=== PATIENT | male | born 1960 | race Caucasian/White ===

== ENCOUNTER 2019-08-04 12:25 | Emergency (ER) | payer OTHER, SELFPAY ==
--- NOTE | ~2019-08-04 | XR_ITS ---
EXAMINATION: XR chest 2V EXAM DATE: 08/04/2019 13:19 INDICATION: Shortness of breath, COPD. Right upper lobe biopsy-proven adenocarcinoma. TECHNIQUE: Frontal and lateral projections of the chest obtained and reviewed. Comparison is made to prior examination from 12/29/2018. FINDINGS: Right upper nodular opacity has some spiculations radiating out from it new compared to pr evious examination, probably some surrounding radiation change. Central soft tissue component appears essentially unchanged in size. The lungs are otherwise clear. There are no pleural effusions. The cardiomediastinal silhouette is within normal limits. There is no pneumothorax suspected. The bones and soft tissues are unremarkable. IMPRESSION: 1. No acute cardiopulmonary findings. 2. Right upper lobe biopsy-proven cancer with some adjacent scarring suspected. Reviewed, dictated and finalized at location A. ET DEVELOPMENT TRAINER IMPRESSION: 1. No acute cardiopulmonary findings. 2. Right upper lobe biopsy-proven cancer with some adjacent scarring suspected .
--- NOTE | ~2019-08-04 | CT_ITS ---
EXAMINATION: CTA chest PE protocol EXAM DATE: 08/04/2019 15:42 INDICATION: Shortness of breath. Chest x-ray, right upper lobe cancer treated with radiation. TECHNIQUE: Spiral CTA of the chest (pulmonary arteries) was performed with 100 cc Omnipaque 350 intr avenous contrast injection. Images were acquired during the pulmonary arterial phase. Coronal maxi mum intensity projection 3D-reconstructions were created by the technologist on dedicated workstation . Axial, coronal and sagittal reformatted images were reviewed. The dose-length product (DLP) for t his examination was 480.48 mGy-cm. The exposure was tailored according to patient size (auto mA exp osure control), and iterative reconstruction (ASIR) was used as additional dose reduction technique. Comparison is made to prior examination from 05/05/2019. FINDINGS: Pulmonary arteries are well opacified and without intraluminal filling defects. No thora cic aortic dissection. There is right upper lobe airspace disease which has somewhat thick linear ba nds, appearance is consistent with treated lung cancer, some resultant scarring. Previously seen more focal 2 cm nodular region has decreased in bulk and size compared to that exam, measures about 17 x 10 mm versus 21 x 13 on prior study. There are no pleural or pericardial effusions. Tracheobronchi al tree is patent. There is no mediastinal, hilar or axillary lymphadenopathy. There is no pneumo thorax. Some hyperinflation with narrow cardiac silhouette. Again there is right atrial mass measur ing about 2 cm in diameter, size does not appear changed. Could be edema exam. There is mild coronary arterial calcification, arterial sclerosis. There are cholecystectomy clips. There is hepatic steat osis. There is thoracic spondylosis without osteoblastic or osteolytic lesions identified. IMPRESSION: 1. No pulmonary emboli. 2. Decrease in size of right upper lobe cancer. Development of adjacent linear regions of scarring. 3. Left atrial mass unchanged. 4. Cholecystectomy. Hepatic steatosis. Reviewed, dictated and finalized at location A. E FARM AGENT
[2019-08-04 12:41] VITALS: BP 127/97; PULSE 107; RESP 20; TEMP 37; O2SAT 93
--- NOTE | 2019-08-04 12:43 | ECG_ITS ---
Measurements Intervals [place] Rate: 100 P: 73 WI: 157 QRS: 73 QRSD: 80 T: 70 QT: 324 QTc: 418 Interpretive Statements SINUS TACHYCARDIA BASELINE ARTIFACT- I, II, AVR, AVL, AVF BORDERLINE ECG Electronically Signed On 08-04-2019 17:24:32 INVESTIGATIVE WRITER by Charles Zhou D.O.
[2019-08-04 12:59] LABS: Basophils Percent Auto 0.7 % (0.2-1.2); Eosinophils Absolute Auto 0.4 K/mm3 (0-0.3); Hematocrit 41.9 % (42.0-52.0); Hemoglobin 13.4 g/dL (14.0-18.0); Immature Granulocyte Absolute 0.01 K/mm3 (0.00-0.031); Immature Granulocyte Percent A 0.2 % (0-0.5); Lymphocytes Absolute Auto 1.61 K/mm3 (0.9-3.2); Lymphocytes Percent Auto 29.2 % (18.3-44.2); Mean Corpuscular Hemoglobin 27.6 pg (26-34); Mean Corpuscular Volume 86.4 fl (80-100); Monocytes Absolute Auto 0.5 K/mm3 (0.1-0.6); Monocytes Percent Auto 9.8 % (2.6-8.5); Neutrophils Absolute Auto 2.9 K/mm3 (1.3-6.7); Neutrophils Percent Auto 52.1 % (45.5-73.1); Platelet Count Result 256 k/mm3 (150-375); Red Blood Count 4.85 M/mm3 (4.6-6.20); Red Cell Distribution Width 14.2 % (11.5-14.5); White Blood Count 5.5 K/mm3 (4.5-10.0)
[2019-08-04 13:10] LABS: Blood Urea Nitrogen 13 mg/dL (9-20); Calcium 9.5 mg/dL (8.4-10.2); Carbon Dioxide 26 mmol/L (22-30); Chloride 99 mmol/L (98-107); Estimated CRCL calculation 96 ml/min; Estimated Glomerular Filt Rate > 60; Glucose 108 mg/dL (75-110); Sodium 137 mmol/L (137-145)
[2019-08-04 14:40] VITALS: BP 141/97; PULSE 89; RESP 16; TEMP 37; O2SAT 93
[2019-08-04 15:01] VITALS: PULSE 86; RESP 20; O2SAT 96
[2019-08-04 15:11] VITALS: BP 143/93; PULSE 86; PULSE 92; RESP 13; TEMP 36.4; O2SAT 96
--- NOTE | 2019-08-04 15:11 | ED.SOB ---
HPI - SOB/Dyspnea General Chief Complaint: Shortness of Breath/Dyspnea <Andi Robbins PA-C - Last Filed: 08/04/19 17:33> Stated Complaint: Wheezing, hx copd <Andi Robbins PA-C - Last Filed: 08/04/19 17:33> Time Seen by Provider: 08/04/19 14:42 <Andi Robbins PA-C - Last Filed: 08/04/19 17:33> Source: patient <Andi Robbins PA-C - Last Filed: 08/04/19 17:33> Mode of arrival: ambulatory <Andi Robbins PA-C - Last Filed: 08/04/19 17:33> Limitations: no limitations <Andi Robbins PA-C - Last Filed: 08/04/19 17:33> History of Present Illness HPI Narrative: Patient is a 59-year-old male who presents with dyspnea for the last weeks noting that he has had productive cough of green phlegm with congestion rhinorrhea denies fever notes history of COPD has been using his home nebulizer with minimal improvement patient with history of COPD and pulmonary embolism was recently taken off of his anticoagulant by his oncologist. Patient on arrival is in the room denying any pain but notes dyspnea at rest. <Andi Robbins PA-C - Last Filed: 08/04/19 17:33> Related Data Allergies/Adverse Reactions: Allergies Allergy/AdvReac Type Severity Reaction Status Date / Time bee venom protein (honey bee) Allergy Unknown Verified 06/21/18 11:24 No Known Drug Allergies Allergy Unknown Other Verified 03/15/19 19:42 bee stings AdvReac Intermediate Swelling Uncoded 02/17/18 09:54 <Andi Robbins PA-C - Last Filed: 08/04/19 17:33> Review of Systems Review of Systems: All systems reviewed & are unremarkable except as noted in HPI and below <Andi Robbins PA-C - Last Filed: 08/04/19 17:33> [facility] Past Medical History Medical History: Medical History (Updated 08/04/19 @ 17:30 by Andi Robbins PA-C) COPD (chronic obstructive pulmonary disease) Pulmonary embolism <LORENA Islas Last Filed: 08/04/19 17:33> Family History Family History: Family History Other Family history of blood dyscrasia Family history of chronic obstructive pulmonary disease Family history of malignant neoplasm of breast in first degree relative <Andi Robbins PA-C - Last Filed: 08/04/19 17:33> Social History Social History: Social History Smoking status: Former smoker <Andi Robbins PA-C - Last Filed: 08/04/19 17:33> Exam Narrative: Exam Narrative: GENERAL: Well-appearing, well-nourished, and in no acute distress. HEAD: Normocephalic, atraumatic. EYES: PERRLA and EOMI. ENT: Nares clear, no rhinorrhea or epistaxis. Mucous membranes moist. Oropharynx without tonsillar hypertrophy exudate or other lesions. NECK: Supple. No adenopathy or masses. CHEST: Diminished on auscultation. No respiratory distress. Fine expiratory wheezes throughout HEART: Regular rate and rhythm. No murmur heard. Normal peripheral pulses. ABDOMEN: Soft, nontender, nondistended EXTREMITIES: Normal range of motion. No edema. SKIN: Warm, dry, no rash. NEURO: No focal deficits. Alert and oriented x3. Cranial nerves II through XII grossly intact PSYCH: Normal mood and affect. <Andi Robbins PA-C - Last Filed: 08/04/19 17:33> Course Course Emergency Course: Patient in the room resting comfortably aware of case findings treatment plan and diagnosis agreeing to follow-up as directed or to return if symptoms worsen or concerns <Andi Robbins PA-C - Last Filed: 08/04/19 17:33> Vital Signs Vital signs: Vital Signs Temperature 98.6 F 08/04/19 12:41 Pulse Rate 107 H 08/04/19 12:41 Respiratory Rate 20 08/04/19 12:41 Blood Pressure 127/97 H 08/04/19 12:41 Pulse Oximetry 93 08/04/19 12:41 Temperature 97.9 F 08/04/19 17:37 Pulse Rate 96 08/04/19 17:37 Respiratory Rate 18 08/04/19 17:37 Blood Pressure 134/88 08/04/19 1
[2019-08-04 15:23] LABS: Alveolar/Arterial O2 Gradient 36.6 mmHg; Base Excess ABG 1.6 mEq/l (+/-2.0); Carboxyhemoglobin 0.6 % THb (0-2.0); Fractional Inspired Oxygen 21 %; HCO3 ABG 26.6 mEq/l (22.0-26.0); Methemoglobin ABG 0.2 %THb (0-1.5); Oxygen Content ABG 17.6 %vol (16.0-22.0); Oxygen Saturation ABG 91.3 % (95.0-100.0); Oxyhemoglobin 91.4 % THb (90.0-100.0); PCO2 ABG 43.7 mmHg (35.0-45.0); PO2 ABG 60.8 mmHg (80.0-100.0); Reduced Hemoglobin 7.8 %THb (0-5.0); Total Hemoglobin 13.7 g/dL (12.0-18.0); pH ABG 7.403 (7.350-7.450)
[2019-08-04 15:24] LABS: Device ROOM AIR; Modified Allen's Test Pass; Site Drawn RIGHT RADIAL
[2019-08-04] MEDS: methylPREDNISolone SOD SUCC 125 MG VIAL IV PUSH (16:29)
[2019-08-04 16:31] VITALS: BP 129/79; PULSE 85; RESP 18; O2SAT 100
[2019-08-04 17:37] VITALS: BP 134/88; PULSE 96; RESP 18; TEMP 36.6; O2SAT 95
== END 2019-08-04 17:52 | disposition home or self-care (01) ==
PROVIDERS: Emergency Medicine Emergency Medical Services; Emergency Provider General Practice; Referring Provider Family Medicine
DX: J44.1 Chronic obstructive pulmonary disease with (acute) exacerbation (principal); Z86.711 Personal history of pulmonary embolism; Z87.891 Personal history of nicotine dependence; C34.91 Malignant neoplasm of unspecified part of right bronchus or lung; K76.0 Fatty (change of) liver, not elsewhere classified; R00.0 Tachycardia, unspecified
CPT/HCPCS: 36415; 36600; 71046; 71275; 80048; 82375; 82805; 83050; 85025; 87804; 93005; 96374; 99284; J2930; Q9967

== ENCOUNTER 2019-08-19 10:35 | Outpatient (CLI) | payer OTHER, SELFPAY ==
[2019-08-19 10:50] LABS: Basophils Percent Auto 0.4 % (0.2-1.2); Eosinophils Absolute Auto 0.4 K/mm3 (0-0.3); Eosinophils Percent Auto 5.4 % (0-4.4); Hematocrit 43.9 % (42.0-52.0); Hemoglobin 13.6 g/dL (14.0-18.0); Immature Granulocyte Absolute 0.02 K/mm3 (0.00-0.031); Immature Granulocyte Percent A 0.3 % (0-0.5); Lymphocytes Absolute Auto 2.28 K/mm3 (0.9-3.2); Lymphocytes Percent Auto 33.1 % (18.3-44.2); Mean Corpuscular Hemoglobin 27.8 pg (26-34); Mean Corpuscular Volume 89.6 fl (80-100); Monocytes Absolute Auto 0.4 K/mm3 (0.1-0.6); Monocytes Percent Auto 6.4 % (2.6-8.5); Neutrophils Absolute Auto 3.8 K/mm3 (1.3-6.7); Neutrophils Percent Auto 54.4 % (45.5-73.1); Platelet Count Result 214 k/mm3 (150-375); Red Cell Distribution Width 14.6 % (11.5-14.5); White Blood Count 6.9 K/mm3 (4.5-10.0)
[2019-08-19 10:57] LABS: Blood Urea Nitrogen 10 mg/dL (8-26); Carbon Dioxide 25 mmol/L (22-30); Chloride 104 mmol/L (98-109); Estimated Glomerular Filt Rate > 60; Glucose 148 mg/dL (70-105); Potassium 3.8 mmol/L (3.5-4.9); Sodium 140 mmol/L (138-146)
[2019-08-19 12:44] LABS: Alanine Aminotransferase 24 U/L (4-50); Albumin Level 3.8 g/dL (3.5-5.1); Alkaline Phosphatase 70 U/L (38-126); Aspartate Amino Transferase 18 U/L (17-59); Bilirubin,Total 0.4 mg/dL (0.2-1.3); Blood Urea Nitrogen 10 mg/dL (9-20); Carbon Dioxide 24 mmol/L (22-30); Chloride 106 mmol/L (98-107); Estimated Glomerular Filt Rate > 60; Glucose 144 mg/dL (75-110); Sodium 139 mmol/L (137-145)
== END 2019-08-19 10:36 | disposition home or self-care (01) ==
LOC: ANHLAB 10:37
PROVIDERS: Visit Provider Internal Medicine Hematology & Oncology
DX: C34.91 Malignant neoplasm of unspecified part of right bronchus or lung (principal)
CPT/HCPCS: 36415; 80048; 80053; 85025

== ENCOUNTER 2019-11-07 03:52 | Observation (INO) | payer OTHER, SELFPAY ==
[2019-11-07] VITALS (26 sets, daily range): BP systolic 104–141; BP diastolic 49–102; PULSE 87–134; RESP 12–26; TEMP 36.7–37.4; O2SAT 83–97; BMI 27.7
--- NOTE | ~2019-11-07 | XR_ITS ---
EXAMINATION: XR chest 1V portable DATE: 11/07/2019 08:38 INDICATION: Cough TECHNIQUE: frontal view of the chest was obtained. COMPARISON: Chest radiograph and CT dated 08/04/2019 FINDINGS: Chronic atelectasis/scarring at the inferior right upper lobe. New airspace opacities in the right lo wer lung zone which could represent atelectasis and/or pneumonia. Left lung remains clear. No pulmona ry edema, pleural effusion or pneumothorax. The cardiomediastinal silhouette is normal. Visualized angel taj and soft tissues are unremarkable. IMPRESSION: 1. New opacities in the right lower lung zone which could represent atelectasis and/or pneumonia. Reviewed, dictated and finalized at location A.
--- NOTE | ~2019-11-07 | CT_ITS ---
EXAMINATION: CT abdomen pelvis w con DATE: 11/07/2019 05:03 INDICATION: Right flank and lower abdominal pain. Constipation. TECHNIQUE: Computed tomography (CT) of the abdomen and pelvis was performed with 100 cc Omnipaque 350 intravenous contrast. Automated exposure control and iterative reconstruction technique were employe d. Exam dose: 669.54 mGy-cm total exam DLP. COMPARISON: 02/11/2017 CT abdomen pelvis FINDINGS: There is right lower lobe discoid atelectasis or scarring and dependent right lower lobe in filtrate. Differential diagnosis includes pneumonia, aspiration pneumonitis Mild discoid atelectasis or scarring at the base of the lingula. Normal heart size. No pericardial or pleural effusion. Hepatic steatosis. No hepatic space-occupying mass lesion. Status post cholecystectomy. No bile duct or pancreatic duct dilatation. There is pancreatic atrophy; no pancreatic mass lesion or calcificatio n. Normal morphology of the adrenal glands. 7 mm left renal probable cyst. The kidneys are otherwise unremarkable. No urinary tract calculus or h ydroureteronephrosis. Normal caliber of the abdominal aorta, with atherosclerotic calcification. No intraperitoneal or retr operitoneal or pelvic mass lesion or adenopathy or ascites. There is mild diffuse thickening of the u rinary bladder wall, moderate prostate enlargement. The appendix is not visualized. No bowel obstruction, bowel wall thickening, pneumatosis or intraperi toneal free air. Postoperative changes of the lumbar spine; anterior and posterior spinal fusion at L4-S1. No suspicio us osteolytic or osteoblastic lesions are noted.. IMPRESSION: Hepatic steatosis 7 mm left renal probable cyst Dependent basilar right lower lobe infiltrate; diffusion diagnosis includes pneumonia and aspiration pneumonitis Reviewed, dictated and finalized at Location [facility]. Reviewed, dictated and finalized at location A. IMPRESSION: Hepatic steatosis 7 mm left renal probable cyst Dependent basilar right lower lobe infiltrate; diffusion diagnosis includes pne umonia and aspiration pneumonitis
--- NOTE | ~2019-11-07 | XR_ITS ---
XR ribs BI 3V w CXR 2V DATE: 11/09/2019 12:20 INDICATION: Right lower rib pain. Pneumonia. TECHNIQUE: PA and lateral chest. 3 views of right ribs. 3 views of left ribs. COMPARISON: 11/07/2019 portable AP chest 08/04/2011 two-view chest 07/01/2018 CT percutaneous right lung biopsy: Well differentiated lung adenocarcinoma FINDINGS: Normal heart size. No hilar or mediastinal enlargement is evident. There is patchy infiltrate and/or mass density in the right mid lung. There is mild infiltrate or ate lectasis in the right lower lung zone and blunting of both costophrenic angle suggesting mild bilater al pleural effusions. Surgical clips, right upper quadrant, likely due to cholecystectomy. No left or right rib fractures or bone destruction are evident. IMPRESSION: No evidence of left or right rib fractures Patchy right mid and lower lung infiltrates. Right residual or recurrent lung mass is not excluded. Reviewed, dictated and finalized at location A. IMPRESSION: No evidence of left or right rib fractures Patchy right mid and lower lung infiltrates. Right residual or recurrent lung m ass is not excluded.
--- NOTE | ~2019-11-07 | US_ITS ---
US abdomen complete DATE: 11/08/2019 08:05 INDICATION: Right upper quadrant abdominal pain. Right flank pain. Left renal cyst suggested on 2019 CT abdomen pelvis. TECHNIQUE: Real-time imaging of the abdomen. Doppler analysis. COMPARISON: 11/07/2019 CT abdomen pelvis FINDINGS: The gallbladder is surgically absent. No hepatic or pancreatic space-occupying mass lesion is evident. Normal hepatic portal venous flow di rection. The common bile duct measures 4.8 mm, normal. The right kidney measures approximately 9.4 cm length. The left kidney measures approximately 10.6 cm length. An approximately 7-8 mm left renal cyst is not ed. No hydronephrosis of either kidney. Normal splenic size. Normal caliber of the abdominal aorta. The inferior vena cava is unremarkable. IMPRESSION: 7-8 mm left renal cyst Status post cholecystectomy Reviewed, dictated and finalized at Location A. Reviewed, dictated and finalized at location A.
--- NOTE | ~2019-11-07 | NM_ITS ---
NM pulmonary perfusion DATE: 11/07/2019 09:27 INDICATION: Cough. Possible right lower lobe infarct. TECHNIQUE: 8 view perfusion scan after intravenous injection of 5.4 mCi 99M technetium MAA. COMPARISON: 11/07/2019 portable AP chest FINDINGS: There are small matched defects in the right upper and right lower lobes, corresponding to infiltrates demonstrated radiographically. No other significant perfusion abnormality. IMPRESSION: Low probability of pulmonary embolus Reviewed, dictated and finalized at Location A. Reviewed, dictated and finalized at location A.
--- NOTE | ~2019-11-07 | CT_ITS ---
EXAMINATION: CTA chest PE protocol EXAM DATE: 11/09/2019 17:53 INDICATION: Pneumonia. Right-sided pleuritic chest pain. TECHNIQUE: Spiral CTA of the chest (pulmonary arteries) was performed with 100 cc Omnipaque 350 intr avenous contrast injection. Images were acquired during the pulmonary arterial phase. Coronal maxi mum intensity projection 3D-reconstructions were created by the technologist on dedicated workstation . Axial, coronal and sagittal reformatted images were reviewed. The dose-length product (DLP) for t his examination was 511.77 mGy-cm. The exposure was tailored according to patient size (auto mA exp osure control), and iterative reconstruction (ASIR) was used as additional dose reduction technique. Comparison is made to prior examination from 08/04/2019. FINDINGS: There is right lower lobe segmental pulmonary embolism with multi segmental right lower lo be airspace disease likely combination of infarction and atelectasis. Pneumonia also possible. Patien t's known right upper lobe small cell lung cancer not significantly changed about 1.8 x 0.9 cm. There is also subsegmental left lower lobe atelectasis. There is small to moderate right, and a small left pleural effusion. No thoracic aortic dissection. Tracheobronchial tree is patent. There is no me diastinal, hilar or axillary lymphadenopathy. There is no pneumothorax. Heart normal in size, wit h left atrial septal mass unchanged. No evidence of coronary arterial calcification. There are cho lecystectomy clips. No osteoblastic or osteolytic lesions identified. IMPRESSION: 1. Segmental right lower lobe pulmonary embolism with associated infarction. 2. Small to moderate right pleural effusion with adjacent multi segmental atelectasis. Pneumonia als o possible. 3. Small left pleural effusion with subsegmental atelectasis. 4. Left atrial septal mass and right upper lobe malignancy unchanged. I discussed pulmonary embolism with hospitalist Dr. Gilbert at 11/09/2019 18:05 CDT . Reviewed, dictated and finalized at location A. IMPRESSION: 1. Segmental right lower lobe pulmonary embolism with associated infarction. 2. Small to moderate right pleural effusion with adjacent multi segmental atel ectasis. Pneumonia also possible. 3. Small left pleural effusion with subsegmental atelectasis. 4. Left atrial septal mass and right upper lobe malignancy unchanged. I discussed pulmonary embolism with hospitalist Dr. Gilbert at 11/09/2019 18:05 CDT .
--- NOTE | 2019-11-07 04:04 | ECG_ITS ---
Measurements Intervals [place] Rate: 113 P: 61 MS: 146 QRS: 36 QRSD: 90 T: 46 QT: 305 QTc: 418 Interpretive Statements SINUS TACHYCARDIA ATRIAL PREMATURE COMPLEX NONSPECIFIC T-WAVE ABNORMALITY- ANT/INF LEADS BASELINE ARTIFACT- I, II, III, AVR, AVL, AVF ABNORMAL ECG Electronically Signed On 11-07-2019 6:48:09 CDT by Charles Zhou D.O.
--- NOTE | 2019-11-07 04:06 | ED.ABDPAIN ---
HPI - Abdominal Pain General Chief Complaint: Abdominal Pain <Jorje Johnson MD - Last Filed: 11/08/19 01:17> Stated Complaint: ?kidney issues <Jorje Johnson MD - Last Filed: 11/08/19 01:17> Time Seen by Provider: 11/07/19 03:55 <Jorje Johnson MD - Last Filed: 11/08/19 01:17> History of Present Illness HPI narrative: History limited by poor historian. Right sided abdominal pain since yesterday. No radiation. Associated with bloating. HIs is concerned about behavior change and him not sleeping. She believes that he may be having difficulty with urination and constipation. He denies all of these things. <Jorje Johnson MD - Last Filed: 11/08/19 01:17> Related Data Home Medications: Home Medications Medication Instructions Recorded Confirmed albuterol sulfate 2 puff INHALATION QID PRN 11/07/19 11/07/19 alprazolam 1 mg PO HS 11/07/19 11/07/19 cholecalciferol (vitamin D3) 1,250 mcg PO WEEKLY 11/07/19 11/07/19 docusate sodium 100 mg PO BID PRN 11/07/19 11/07/19 duloxetine 30 mg PO HS 11/07/19 11/07/19 duloxetine 60 mg PO DAILY 11/07/19 11/07/19 montelukast [Singulair] 10 mg PO HS 11/07/19 11/07/19 oxycodone 5 mg PO QID PRN 11/07/19 11/07/19 oxycodone [OxyContin] 20 mg PO Q8H 11/07/19 11/07/19 pregabalin 225 mg PO BID 11/07/19 11/07/19 triamcinolone acetonide 1 applic TOPICAL QID PRN 11/07/19 11/07/19 zolpidem 5 mg PO HS 11/07/19 11/07/19 <Jorje Johnson MD - Last Filed: 11/08/19 01:17> Allergies/Adverse Reactions: Allergies Allergy/AdvReac Type Severity Reaction Status Date / Time bee venom protein (honey bee) Allergy Unknown Swelling Verified 11/07/19 04:05 No Known Drug Allergies Allergy Unknown Other Verified 11/07/19 04:05 bee stings AdvReac Intermediate Swelling Uncoded 11/07/19 04:05 <Jorje Johnson MD - Last Filed: 11/08/19 01:17> Review of Systems Review of Systems: All systems reviewed & are unremarkable except as noted in HPI and below <Jorje Johnson MD - Last Filed: 11/08/19 01:17> Constitutional: Constitutional: Denies fever(s) <Jorje Johnson MD - Last Filed: 11/08/19 01:17> ENT: Denies sore throat <Jorje Johnson MD - Last Filed: 11/08/19 01:17> Cardiovascular: Cardiovascular: Denies chest pain <Jorje Johnson MD - Last Filed: 11/08/19 01:17> Respiratory: Respiratory: Denies dyspnea <Jorje Johnson MD - Last Filed: 11/08/19 01:17> Gastrointestinal: Gastrointestinal: Denies diarrhea and Denies vomiting <Jorje Johnson MD - Last Filed: 11/08/19 01:17> Genitourinary: Genitourinary: Reports oliguria and Denies dysuria <Jorje Johnson MD - Last Filed: 11/08/19 01:17> Neurologic: Denies dizziness and Denies weakness <Jorje Johnson MD - Last Filed: 11/08/19 01:17> [facility] Past Medical History Medical History: Medical History (Updated 11/07/19 @ 17:47 by America Mendoza PA-C) Adenocarcinoma, lung Non-small cell carcinoma diagnosed June 2018. Follows with Dr. Baez and Dr. Cavazos; underwent radiation therapy from 12/05/2018 to 12/18/2018 and he says he is in remission. Anxiety Atrial fibrillation S/p cardiac ablation by Dr. 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 Followed by Dr. Parson at [facility] last seen around December 2018. Chronic pain syndrome Due to chronic lower back pain after complications with lower spinal fusion 2009. COPD (chronic obstructive pulmonary disease) History of DVT (deep vein thrombosis) Right upper extremity DVT and bilateral PE December 2018 for which he took Xarelto for several months. History of pulmonary embolism December 2018 Hypertension Reports he is no longer on medications for such. Peripheral neuropathy <Jorje Johnson MD - Last Filed: 11/08/19 01:17> Surgical History Surgical History: Surgical History (Updated 11/07/19 @ 17:03 by Daisy
[2019-11-07 04:31] LABS: Basophils Absolute Auto 0.1 K/mm3 (0.0-0.1); Basophils Percent Auto 0.4 % (0.2-1.2); Eosinophils Absolute Auto 0.1 K/mm3 (0-0.3); Eosinophils Percent Auto 0.7 % (0-4.4); Hematocrit 40.4 % (42.0-52.0); Hemoglobin 13.3 g/dL (14.0-18.0); Immature Granulocyte Absolute 0.06 K/mm3 (0.00-0.031); Immature Granulocyte Percent A 0.5 % (0-0.5); Lymphocytes Percent Auto 16.6 % (18.3-44.2); Mean Corpuscular HGB Conc 32.9 g/dl (32-36); Mean Corpuscular Hemoglobin 28.7 pg (26-34); Mean Corpuscular Volume 87.3 fl (80-100); Mean Platelet Volume 10.6 fl (7.4-10.4); Monocytes Absolute Auto 1.1 K/mm3 (0.1-0.6); Monocytes Percent Auto 9.9 % (2.6-8.5); Neutrophils Absolute Auto 8.2 K/mm3 (1.3-6.7); Neutrophils Percent Auto 71.9 % (45.5-73.1); Platelet Count Result 258 k/mm3 (150-375); Red Blood Count 4.63 M/mm3 (4.6-6.20); Red Cell Distribution Width 13.3 % (11.5-14.5); White Blood Count 11.5 K/mm3 (4.5-10.0)
[2019-11-07 04:42] LABS: INR 1.1; Prothrombin Time 13.6 Seconds (11.1-14.7)
[2019-11-07 04:43] LABS: Partial Thromboplastin Time 30.9 SECONDS (22.3-36.8)
[2019-11-07 04:49] LABS: Alanine Aminotransferase 87 U/L (4-50); Albumin Level 4.2 g/dL (3.5-5.1); Alkaline Phosphatase 107 U/L (38-126); Aspartate Amino Transferase 109 U/L (17-59); Bilirubin,Total 1.6 mg/dL (0.2-1.3); Blood Urea Nitrogen 14 mg/dL (9-20); Calcium 8.9 mg/dL (8.4-10.2); Carbon Dioxide 28 mmol/L (22-30); Chloride 97 mmol/L (98-107); Estimated Glomerular Filt Rate > 60; Glucose 121 mg/dL (75-110); Lactic Acid Reflex 1.3 mmol/L (0.7-2.1); Potassium 3.6 mmol/L (3.4-5.0); Sodium 135 mmol/L (137-145)
[2019-11-07 05:00] LABS: Add Urine Microscopic? YES; Appearance Urine Clear (Clear); Bilirubin Urine Negative (Negative); Blood Urine Negative (Negative); Color Urine Yellow (Yellow); Glucose Urine UA Negative (Negative); Ketones Urine Negative (Negative); Leukocyte Esterase Ur Negative LEU/UL (Negative); Nitrate Urine Negative (Negative); Protein Urine Negative (Negative); RBC Urine 0-2 /hpf (0-2); Specific Grav Ur 1.015 (1.001-1.035); Squamous Epithelial Cell Urine Rare /hpf (Few); WBC Urine 0-3 /hpf
[2019-11-07] MEDS: SODIUM CHLORIDE 0.9% IV 1,000 ML 999 ML IV CONT ×2 (05:34→10:06)
--- NOTE | 2019-11-07 07:49 | PC.NURSE ---
Addendum entered by Rao Goldstein RN 11/07/19 07:51: assuming care of pt from Fanny YO. Pt is resting in bed. Pt has call light in reach. Pt has lower abd pain. Pt complains that pain is increasing. Pt states he takes several narcotic pain meds on a regular basis. Pt updated on POC. Pt appears comfortable at this time. Original Note: assuming care of pt from Mana YO. Pt is resting in bed. Pt denies pain. Pt appears in NAD. Pt has been having non productive cough while here. Pt appears forgetful but A&Ox4. Pt has call light in reach
--- NOTE | 2019-11-07 07:52 | PC.NURSE ---
assuming care of pt from Fanny YO. Pt resting in bed. Pt has call light in reach. Pt states he has lower abd pain. Pt states pain is increasing due to not having his chronic narcotic pain meds. Pt states he would like to leave. Pt updated on POC. Pt has no questions at this time.
--- NOTE | 2019-11-07 11:45 | ADMGEN ---
This patient, Jn Garay, was admitted to [facility] Surg Room 329-01. Patient/family oriented to hospital policies and general routines including ID bracelet, bed and alarms, visiting hours, pain management, procedures, bathroom and other care routines, personal items, smoking policy, room service/diet, and visiting hours. Valuables list has been completed. Information on how to activate the Rapid Response Team has been discussed. Patient/Family are encouraged to report perceived risks to care and to ask questions if they do not understand what they are told or what they should do.
[2019-11-07] MEDS: SODIUM CHLORIDE 0.9% IV 1,000 ML 80 ML IV CONT (15:07)
--- NOTE | 2019-11-07 16:14 | PM.IMHP ---
H&P: HPI History of Present Illness Chief complaint: Community acquired pneumonia Narrative: Date of Service 11/06 1529 Supervising physician for this history and physical is Dr Inga Davis. Jn Garay is a 59 year old male with history of non-small cell lung carcinoma, atrial fibrillation, COPD, left atrial myxoma followed by a specialist at [facility], hypertension, chronic pain syndrome secondary to chronic back pain who presents to the ED for evaluation of ?right side pain . He notes that this pain started yesterday and has been intermittent, aggravated by deep breaths and coughing. When asked the site of his pain, he points to his right upper abdomen just below his right rib cage. He denies any chest pain or shortness breath. He has not noticed increased cough lately. Denies fevers or chills. He does not use any supplemental oxygen at home. He denies any nausea, vomiting, hematochezia, or melena. He notes his last bowel movement was 2 days ago which is not abnormal for him, he notes he sometimes deals with constipation due to chronic opioid use. He denies any recent travel or sick contacts at home. He was noted to be desaturating to 83% O2 saturation on room air and is now tolerating 2 L nasal cannula. Chest x-ray shows chronic atelectasis/scarring at the right upper lobe with new airspace opacities in right lower lung zone concerning for pneumonia. V/Q scan in the ED showed low probability of pulmonary emboli; small matched deficits in right upper and lower lobes corresponding to the infiltrates on CXR, no other significant perfusion abnormality. Blood cultures were obtained. He was started on IV azithromycin and Rocephin for treatment of possible community-acquired pneumonia. He was also tested for COVID-19 and droplet isolation was initiated. He was admitted to observation for treatment of pneumonia. Review of Systems Review of Systems: Narrative: Patient's only complaint is right-sided pain and points to his right upper abdomen just below his right rib cage. He denies any shortness of breath, chest pain, calf tenderness, palpitations. He denies any nausea, vomiting, hematochezia, melena, diarrhea. No fever or chills. No sick contacts at home. Denies any dysuria or hematuria. Twelve systems were reviewed with pertinent positives and negatives as per HPI. Except as documented, all other systems were reviewed and are negative. PMFSH Past Medical History Medical History (Updated 11/07/19 @ 17:47 by America Mendoza PA-C) Adenocarcinoma, lung Non-small cell carcinoma diagnosed June 2018. Follows with Dr. Baez and Dr. Cavazos; underwent radiation therapy from 12/05/2018 to 12/18/2018 and he says he is in remission. Anxiety Atrial fibrillation S/p cardiac ablation by Dr. 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 Followed by Dr. Parson at [facility] last seen around December 2018. Chronic pain syndrome Due to chronic lower back pain after complications with lower spinal fusion 2009. COPD (chronic obstructive pulmonary disease) History of DVT (deep vein thrombosis) Right upper extremity DVT and bilateral PE December 2018 for which he took Xarelto for several months. History of pulmonary embolism December 2018 Hypertension Reports he is no longer on medications for such. Peripheral neuropathy Surgical History Surgical History (Updated 11/07/19 @ 17:03 by America Mendoza PA-C) History of appendectomy In the History of carpal tunnel release Left 2010 History of elbow surgery Left elbow ulnar neurolysis History of lumbar fusion Anterior and posterior L4-S1 fusion 2009 Hx of cholecystectomy In the Family History Family History (Updated 11/07/19 @ 17:05 by America Mendoza PA-C) Father Acute myocardial infarction Pulmonary embolism Sibling Breast cancer Other Family history of chronic obstructive pulmonary d
[2019-11-07 17:01] LABS: SARS-CoV-2 RNA PCR Negative
[2019-11-07] MEDS: PREGABALIN 75 MG CAPSULE 225 MG PO (18:11)
[2019-11-07] MEDS: ALBUTEROL SULFATE (*SP) AEROSOL 1 PUFF 2 PUFF INHALATION (21:01)
[2019-11-07] MEDS: DULOXETINE HCL 30 MG CAPSULE.DR PO (21:35)
[2019-11-07] MEDS: MONTELUKAST SODIUM 10 MG TABLET PO (21:35)
[2019-11-07] MEDS: ALPRAZOLAM 0.5 MG TABLET 1 MG PO (21:35)
[2019-11-07] MEDS: ZOLPIDEM TARTRATE 5 MG TABLET PO (21:35)
[2019-11-08] VITALS (9 sets, daily range): BP systolic 95–125; BP diastolic 44–74; PULSE 61–108; RESP 16–20; TEMP 36.6–37.3; O2SAT 90–95
[2019-11-08] MEDS: ALBUTEROL SULFATE (*SP) AEROSOL 1 PUFF 2 PUFF INHALATION ×4 (02:15→20:02)
[2019-11-08] MEDS: SODIUM CHLORIDE 0.9% IV 1,000 ML 80 ML IV CONT ×2 (02:26→17:34)
[2019-11-08 06:49] LABS: Basophils Percent Auto 0.4 % (0.2-1.2); Eosinophils Absolute Auto 0.2 K/mm3 (0-0.3); Eosinophils Percent Auto 2.9 % (0-4.4); Hematocrit 32.8 % (42.0-52.0); Hemoglobin 10.7 g/dL (14.0-18.0); Immature Granulocyte Absolute 0.01 K/mm3 (0.00-0.031); Immature Granulocyte Percent A 0.2 % (0-0.5); Lymphocytes Absolute Auto 1.12 K/mm3 (0.9-3.2); Lymphocytes Percent Auto 20.1 % (18.3-44.2); Mean Corpuscular HGB Conc 32.6 g/dl (32-36); Mean Corpuscular Hemoglobin 28.6 pg (26-34); Mean Corpuscular Volume 87.7 fl (80-100); Mean Platelet Volume 10.1 fl (7.4-10.4); Monocytes Absolute Auto 0.6 K/mm3 (0.1-0.6); Monocytes Percent Auto 10.2 % (2.6-8.5); Neutrophils Absolute Auto 3.7 K/mm3 (1.3-6.7); Neutrophils Percent Auto 66.2 % (45.5-73.1); Platelet Count Result 201 k/mm3 (150-375); Red Blood Count 3.74 M/mm3 (4.6-6.20); Red Cell Distribution Width 13.5 % (11.5-14.5); White Blood Count 5.6 K/mm3 (4.5-10.0)
[2019-11-08 07:23] LABS: Alanine Aminotransferase 47 U/L (4-50); Albumin Level 3.2 g/dL (3.5-5.1); Alkaline Phosphatase 80 U/L (38-126); Aspartate Amino Transferase 37 U/L (17-59); Bilirubin,Total 0.7 mg/dL (0.2-1.3); Blood Urea Nitrogen 10 mg/dL (9-20); Calcium 8.1 mg/dL (8.4-10.2); Carbon Dioxide 25 mmol/L (22-30); Chloride 105 mmol/L (98-107); Creatine Kinase 223 U/L (55-170); Estimated CRCL calculation 86 ml/min; Estimated Glomerular Filt Rate > 60; Glucose 94 mg/dL (75-110); Lactate Dehydrogenase 376 U/L (313-618); Magnesium 2.1 mg/dL (1.6-2.3); Phosphorus 3.1 mg/dL (2.5-4.5); Potassium 3.5 mmol/L (3.4-5.0); Sodium 136 mmol/L (137-145)
[2019-11-08 07:46] LABS: Lipase < 10 U/L (23-300)
[2019-11-08] MEDS: DULOXETINE 60 MG CAPSULE.DR PO (08:00)
[2019-11-08] MEDS: TAMSULOSIN HCL 0.4 MG CAPSULE PO (08:00)
[2019-11-08] MEDS: ENOXAPARIN 40 MG/0.4 ML SYRINGE SUB-Q (08:00)
[2019-11-08] MEDS: PREGABALIN 75 MG CAPSULE 225 MG PO ×2 (08:00→17:34)
--- NOTE | 2019-11-08 11:21 | PM.IMPN ---
Progress Note: A&P Assessment and Plan (1) Pneumonia: Qualifiers: Laterality: right Lung location: lower lobe of lung Pneumonia type: due to unspecified organism Qualified Code(s): J18.9 - Pneumonia, unspecified organism Code(s): J18.9 - Pneumonia, unspecified organism Status: Acute Assessment and Plan: Imaging demonstrates right lower lobe infiltrate concerning for pneumonia. COVID-19 testing negative. Blood cultures pending. Obtain pneumococcal and Legionella urine antigens, sputum culture if he can produce one. Continue IV antibiotics with azithromycin and Rocephin (day 2). Albuterol inhaler. Wean O2 as tolerated; anticipate possible discharge tomorrow - home O2 eval. (2) Sepsis: Qualifiers: Sepsis acute organ dysfunction status: unspecified Sepsis type: sepsis due to unspecified organism Qualified Code(s): A41.9 - Sepsis, unspecified organism Code(s): A41.9 - Sepsis, unspecified organism Status: Resolved Assessment and Plan: Evident on arrival by leukocytosis and tachycardia. Suspected source is respiratory. Lactic acid normal limits. Blood cultures pending. Monitor vital signs and urine output. (3) Hypoxia: Code(s): R09.02 - Hypoxemia Status: Acute Assessment and Plan: Suspect secondary to above. Tolerating 2 L nasal cannula today. Wean supplemental O2 as tolerated to keep O2 saturations > 90%. (4) Abdominal pain: Qualifiers: Abdominal location: right upper quadrant Qualified Code(s): R10.11 - Right upper quadrant pain Code(s): R10.9 - Unspecified abdominal pain Status: Acute Assessment and Plan: Patient describes a right side pain to right mid/upper abdomen just below his right rib cage. Etiology unclear, may be ?referred pain from pneumonia, gas pain from constipation, musculoskeletal etiology. S/p cholecystectomy many years ago. Bili slightly elevated, AST and ALT elevated may have been reactive and all resolved today. Neither CT abdomen/pelvis nor abdominal ultrasound demonstrate any obvious etiology for this pain. (5) COPD (chronic obstructive pulmonary disease): Qualifiers: COPD type: unspecified COPD Qualified Code(s): J44.9 - Chronic obstructive pulmonary disease, unspecified Code(s): J44.9 - Chronic obstructive pulmonary disease, unspecified Status: Chronic Assessment and Plan: No paul respiratory distress. Continue albuterol and supplemental O2. Continue his home Advair and Singulair. (6) Adenocarcinoma, lung: Qualifiers: Laterality: right Qualified Code(s): C34.91 - Malignant neoplasm of unspecified part of right bronchus or lung Code(s): C34.90 - Malignant neoplasm of unspecified part of unspecified bronchus or lung Status: Chronic Assessment and Plan: History of non-small cell lung carcinoma right upper lobe in 2019, tells me he is in remission. Underwent radiation therapy last summer and followed with Dr. Baez and Dr. Cavazos. (7) Chronic pain syndrome: Code(s): G89.4 - Chronic pain syndrome Status: Chronic Assessment and Plan: On significant doses of narcotics long-term. Due to chronic low back pain after spinal fusion in 2009. Continue his home regimen at decreased doses. He follows with pain management, Dr. Shane. Subjective Date/time seen: 11/08/19 1040 Interval history: Mr. Garay is a 59yo M admitted for pneumonia. He continues to have a right-sided pain on his abdomen that is bothering him. He denies nausea or vomiting and is tolerating oral intake. He denies chest pain or shortness of breath. He describes he is coughing more phlegm up today. His abdomen hurts with
[2019-11-08] MEDS: ALPRAZOLAM 0.5 MG TABLET 1 MG PO (20:25)
[2019-11-08] MEDS: MONTELUKAST SODIUM 10 MG TABLET PO (20:26)
[2019-11-08] MEDS: DULOXETINE HCL 30 MG CAPSULE.DR PO (20:26)
[2019-11-08] MEDS: ZOLPIDEM TARTRATE 5 MG TABLET PO (20:32)
[2019-11-09] VITALS (9 sets, daily range): BP systolic 107–130; BP diastolic 59–87; PULSE 72–101; RESP 12–20; TEMP 36.4–36.9; O2SAT 89–95
--- NOTE | 2019-11-09 04:44 | PCRCNOTE ---
Window of time for administration has passed. See next scheduled administration.
[2019-11-09] MEDS: SODIUM CHLORIDE 0.9% IV 1,000 ML 80 ML IV CONT (07:25)
[2019-11-09 07:47] LABS: Blood Urea Nitrogen 8 mg/dL (9-20); CRP 17.8 mg/dL (<1.0); Calcium 7.8 mg/dL (8.4-10.2); Carbon Dioxide 27 mmol/L (22-30); Chloride 105 mmol/L (98-107); Estimated CRCL calculation 96 ml/min; Estimated Glomerular Filt Rate > 60; Glucose 99 mg/dL (75-110); Potassium 3.3 mmol/L (3.4-5.0); Sodium 135 mmol/L (137-145)
[2019-11-09] MEDS: ALBUTEROL SULFATE (*SP) AEROSOL 1 PUFF 2 PUFF INHALATION ×3 (08:57→21:07)
[2019-11-09] MEDS: PREGABALIN 75 MG CAPSULE 225 MG PO ×2 (09:09→17:01)
[2019-11-09] MEDS: DOCUSATE SODIUM 100 MG CAPSULE PO (09:09)
[2019-11-09] MEDS: TAMSULOSIN HCL 0.4 MG CAPSULE PO (09:10)
[2019-11-09] MEDS: ENOXAPARIN 40 MG/0.4 ML SYRINGE SUB-Q (09:10)
[2019-11-09] MEDS: DULOXETINE 60 MG CAPSULE.DR PO (09:10)
[2019-11-09] MEDS: POTASSIUM CHLORIDE 20 MEQ TABLET 40 MEQ PO (09:17)
--- NOTE | 2019-11-09 12:23 | PM.IMPN ---
Progress Note: A&P Assessment and Plan (1) Pneumonia: Qualifiers: Pneumonia type: due to unspecified organism Laterality: right Lung location: lower lobe of lung Qualified Code(s): J18.9 - Pneumonia, unspecified organism Code(s): J18.9 - Pneumonia, unspecified organism Status: Acute Assessment and Plan: Imaging demonstrates right lower lobe infiltrate concerning for pneumonia. COVID-19 testing negative. Blood cultures pending with no growth to date. Obtain pneumococcal and Legionella urine antigens. Continue IV antibiotics with azithromycin and Rocephin (day 3). Albuterol inhaler. Wean O2 as tolerated; anticipate possible discharge tomorrow - home O2 eval. (2) Sepsis: Qualifiers: Sepsis type: sepsis due to unspecified organism Sepsis acute organ dysfunction status: unspecified Qualified Code(s): A41.9 - Sepsis, unspecified organism Code(s): A41.9 - Sepsis, unspecified organism Status: Resolved Assessment and Plan: Evident on arrival by leukocytosis and tachycardia. Suspected source is respiratory. Lactic acid normal limits. Blood cultures pending. Monitor vital signs and urine output. (3) Hypoxia: Code(s): R09.02 - Hypoxemia Status: Acute Assessment and Plan: Suspect secondary to above. Tolerating 1 L nasal cannula today. Wean supplemental O2 as tolerated to keep O2 saturations > 90%. Home O2 eval tomorrow with anticipated discharge 11/09. (4) Abdominal pain: Qualifiers: Abdominal location: right upper quadrant Qualified Code(s): R10.11 - Right upper quadrant pain Code(s): R10.9 - Unspecified abdominal pain Status: Acute Assessment and Plan: Patient describes a right side pain to right mid/upper abdomen just below his right rib cage. Etiology unclear, may be ?referred pain from pneumonia, gas pain from constipation, musculoskeletal etiology. On the phone today, his ex- Edna tells me he was aggressive 11/05 and threw a barstool, ripped a gate off the hinges outside, and bumped his side on the washing machine. Suspect MSK pain. XR ruled out rib fracture. Neither CT abdomen/pelvis nor abdominal ultrasound demonstrate any obvious etiology for this pain. (5) COPD (chronic obstructive pulmonary disease): Qualifiers: COPD type: unspecified COPD Qualified Code(s): J44.9 - Chronic obstructive pulmonary disease, unspecified Code(s): J44.9 - Chronic obstructive pulmonary disease, unspecified Status: Chronic Assessment and Plan: No paul respiratory distress. Continue albuterol and supplemental O2. Continue his home Advair and Singulair. (6) Adenocarcinoma, lung: Qualifiers: Laterality: right Qualified Code(s): C34.91 - Malignant neoplasm of unspecified part of right bronchus or lung Code(s): C34.90 - Malignant neoplasm of unspecified part of unspecified bronchus or lung Status: Chronic Assessment and Plan: History of non-small cell lung carcinoma right upper lobe in 2019, tells me he is in remission. Underwent radiation therapy last summer and followed with Dr. Baez and Dr. Cavazos. (7) Chronic pain syndrome: Code(s): G89.4 - Chronic pain syndrome Status: Chronic Assessment and Plan: On significant doses of narcotics long-term. Due to chronic low back pain after spinal fusion in 2009. Continue his home regimen at decreased doses. He follows with pain management, Dr. Shane. Subjective Date/time seen: 11/09/19 1145 Interval history: Mr. Garay is a 59yo M admitted for pneumonia. Right rib cage pain worse with deep breaths. No anterior chest pain. No real shortness of breath but more-so just sharp pain when he
[2019-11-09] MEDS: BISACODYL 5 MG TABLET EC PO (13:48)
--- NOTE | 2019-11-09 14:47 | PC.NURSE ---
At 1440 on 11/09/19, Jn called the call light asking to speak to someone about the sputum sample found in his room this morning. The patient initially denied that he sputum could be his and is now saying that it's a possibility that it is his. The patient states that he took Ambien last night and sometimes he forgets things that he does when he takes Ambien and that he thinks he might have provided the sputum.
[2019-11-09] MEDS: polyethylene glycoL 3350 17 GM POWD.PACK PO (17:02)
[2019-11-09] MEDS: ENOXAPARIN 100 MG/ML SYRINGE 90 MG SUB-Q (19:41)
[2019-11-09] MEDS: MONTELUKAST SODIUM 10 MG TABLET PO (21:15)
[2019-11-09] MEDS: ALPRAZOLAM 0.5 MG TABLET 1 MG PO (21:15)
[2019-11-09] MEDS: ZOLPIDEM TARTRATE 5 MG TABLET PO (21:15)
[2019-11-09] MEDS: DULOXETINE HCL 30 MG CAPSULE.DR PO (21:15)
[2019-11-10] VITALS (8 sets, daily range): BP systolic 104–121; BP diastolic 58–69; PULSE 84–110; RESP 18–20; TEMP 36.3–36.9; O2SAT 89–94
[2019-11-10] MEDS: ALBUTEROL SULFATE (*SP) AEROSOL 1 PUFF 2 PUFF INHALATION ×3 (02:24→14:11)
[2019-11-10 06:34] LABS: Basophils Percent Auto 0.5 % (0.2-1.2); Eosinophils Absolute Auto 0.3 K/mm3 (0-0.3); Eosinophils Percent Auto 6.5 % (0-4.4); Hematocrit 31.3 % (42.0-52.0); Hemoglobin 10.3 g/dL (14.0-18.0); Immature Granulocyte Absolute 0.01 K/mm3 (0.00-0.031); Immature Granulocyte Percent A 0.2 % (0-0.5); Lymphocytes Percent Auto 32.6 % (18.3-44.2); Mean Corpuscular HGB Conc 32.9 g/dl (32-36); Mean Corpuscular Hemoglobin 28.5 pg (26-34); Mean Corpuscular Volume 86.7 fl (80-100); Mean Platelet Volume 9.9 fl (7.4-10.4); Monocytes Absolute Auto 0.5 K/mm3 (0.1-0.6); Monocytes Percent Auto 10.9 % (2.6-8.5); Neutrophils Absolute Auto 2.1 K/mm3 (1.3-6.7); Neutrophils Percent Auto 49.3 % (45.5-73.1); Platelet Count Result 216 k/mm3 (150-375); Red Blood Count 3.61 M/mm3 (4.6-6.20); Red Cell Distribution Width 13.5 % (11.5-14.5); White Blood Count 4.3 K/mm3 (4.5-10.0)
[2019-11-10 06:56] LABS: Blood Urea Nitrogen 5 mg/dL (9-20); Carbon Dioxide 28 mmol/L (22-30); Chloride 103 mmol/L (98-107); Estimated CRCL calculation 86 ml/min; Estimated Glomerular Filt Rate > 60; Glucose 100 mg/dL (75-110); Potassium 3.2 mmol/L (3.4-5.0); Sodium 136 mmol/L (137-145)
[2019-11-10] MEDS: POTASSIUM CHLORIDE 20 MEQ TABLET 40 MEQ PO (08:23)
[2019-11-10] MEDS: ENOXAPARIN 100 MG/ML SYRINGE 90 MG SUB-Q (08:24)
[2019-11-10] MEDS: polyethylene glycoL 3350 17 GM POWD.PACK PO ×2 (08:24→17:02)
[2019-11-10] MEDS: PREGABALIN 75 MG CAPSULE 225 MG PO ×2 (08:24→17:01)
[2019-11-10] MEDS: DULOXETINE 60 MG CAPSULE.DR PO (08:25)
[2019-11-10] MEDS: TAMSULOSIN HCL 0.4 MG CAPSULE PO (08:25)
--- NOTE | 2019-11-10 10:34 | PCRCNOTE ---
Patient did not qualify for home o2
--- NOTE | 2019-11-10 11:55 | PM.IMPN ---
Subjective Date/time seen: 11/10/19 11:00 Objective Data Vital Signs Vital Signs: Vital Signs - 24 hr 11/09/19 14:03 11/09/19 14:17 11/09/19 16:00 Temperature 97.5 F L Pulse Rate 98 Respiratory Rate 12 Blood Pressure 107/72 Pulse Oximetry 90 90 94 11/09/19 21:13 11/09/19 22:00 11/10/19 02:00 Temperature 98.5 F 98.5 F Pulse Rate 101 H 100 95 Respiratory Rate 20 20 20 Blood Pressure 130/87 104/69 Pulse Oximetry 91 93 93 11/10/19 06:00 11/10/19 08:28 11/10/19 10:00 Temperature 98.5 F 97.4 F L Pulse Rate 84 85 Respiratory Rate 20 20 18 Blood Pressure 114/58 L 109/66 Pulse Oximetry 93 94 89 L 11/10/19 10:15 11/10/19 10:20 11/10/19 10:30 Temperature Pulse Rate 89 101 H 110 H Respiratory Rate Blood Pressure Pulse Oximetry 90 89 L 91 Intake/Output Intake/Output: Intake & Output 11/07/19 11/08/19 11/09/19 11/10/19 23:59 23:59 23:59 23:59 Intake Total 2100 3190 2426 550 Output Total 600 Balance 2100 3190 2426 -50 Meds/Results Medications: Active Medications Generic Name Dose Route Start Last Admin Trade Name Freq PRN Reason Stop Dose Admin Al Hydrox/Mg Hydrox/Simethicone 30 ml 11/08/19 08:00 Mylanta PO Q6H PRN Indigestion Albuterol 2 puff 11/07/19 20:00 11/10/19 08:24 Proventil Hfa INHALATION 2 puff Q6HRT JESSICA Administration Alprazolam 1 mg 11/07/19 21:00 11/09/19 21:15 Xanax PO 1 mg HS JESSICA Administration Docusate Sodium 100 mg 11/07/19 15:10 11/09/19 09:09 Colace Capsule PO 100 mg BID PRN Administration Constipation Duloxetine HCl 30 mg 11/07/19 21:00 11/09/19 21:15 Cymbalta PO 30 mg HS JESSICA Administration Duloxetine HCl 60 mg 11/08/19 09:00 11/10/19 08:25 Cymbalta PO 60 mg QAM JESSICA Administration Enoxaparin Sodium 90 mg 11/09/19 19:00 11/10/19 08:24 Lovenox SUB-Q 90 mg Q12HR JESSICA Administration Ceftriaxone Sodium/Dextrose 1 gm in 50 mls @ 100 mls/hr 11/08/19 09:00 11/10/19 08:23 Rocephin 1 Gm/D5w 50 Ml IVPB 100 mls/hr Q24H JESSICA Administration Azithromycin 500 mg in 250 mls @ 250 mls/hr 11/08/19 18:00 11/09/19 18:37 Zithromax IVPB Infused QPM JESSICA Infusion Ibuprofen 400 mg 11/07/19 15:27 Motrin PO Q6H PRN Pain Rated 5 or Less Montelukast Sodium 10 mg 11/07/19 21:00 11/09/19 21:15 Singulair PO 10 mg HS JESSICA Administration Oxycodone HCl 5 mg 11/07/19 15:28 11/10/19 08:25 Roxicodone Ir Tablet PO 5 mg Q6H PRN Administration Pain Rated 6 or Greater Oxycodone HCl 20 mg 11/07/19 18:00 11/10/19 05:12 Oxycontin Sr 12hr PO 20 mg [id number] JESSICA Administration Polyethylene Glycol 17 gm 11/09/19 17:00 11/10/19 08:24 Miralax PO 17 gm BID JESSICA Administration Pregabalin 225 mg 11/07/19 17:00 11/10/19 08:24 Lyrica PO 225 mg BID JESSICA Administration Fluticasone/Salmeterol 2 puff 11/07/19 20:00 11/10/19 08:24 Advair Hfa 115-21 Mcg Inhaler (*Sp) INHALATION 2 puff Q12HRT JESSICA Administration Tamsulosin HCl 0.4 mg 11/08/19 09:00 11/10/19 08:25 Flomax PO 0.4 mg QAM JESSICA Administration Zolpidem Tartrate 5 mg 11/07/19 21:00 11/09/19 21:15 Ambien PO 5 mg HS JESSICA Administration Radiology Results: ITS Impressions Abdomen/Pelvis CT 11/07/19 07:54 IMPRESSION: Hepatic steatosis 7 mm left renal probable cyst Dependent basilar right lower lobe infiltrate; diffusion diagnosis includes pneumonia and aspiration pneumonitis Chest X-Ray 11/07/19 08:38 IMPRESSION: 1. New opacities in the right lower lung zone which could represent atelectasis and/or pneumonia. Pulmonary Perfusion Imaging 11/07/19 09:47 IMPRESSION: Low probability of pulmonary embolus Abdomen Ultrasound 11/08/19 08:23 IMPRESSION: 7-8 mm left renal cyst Status post cholecystectomy Ribs w/Chest X-Ray 11/09/19 12:56 IMPRESSION: No evidence of left or rig
[2019-11-10 12:12] LABS: Prothrombin Time 12.7 Seconds (11.1-14.7)
--- NOTE | 2019-11-10 14:54 | PM.DS ---
DS: Admitting Diagnosis Admitting Diagnosis Admitting Diagnosis: Pneumonia, unspecified organism DS: Discharge Diagnosis Discharge Diagnosis (1) Pneumonia: Qualifiers: Pneumonia type: due to unspecified organism Laterality: right Lung location: lower lobe of lung Qualified Code(s): J18.9 - Pneumonia, unspecified organism Code(s): J18.9 - Pneumonia, unspecified organism Status: Acute Assessment and Plan: Date of Service 11/10/19: Mr. Garay is a 59yo M with non-small cell lung cancer, COPD, and chronic pain syndrome with long-term narcotic use, previous history of PE and DVT, known left atrial myxoma who presented to the ED for evaluation of sudden-onset right side pain . He initially described this pain as lower bowel pain pointing to his abdomen. Chest XR was performed in the ER and demonstrated new opacities in the right lower lung zone and chronic findings consistent with his lung cancer in the right upper lobe. A VQ scan was then performed in the ED and demonstrated low probability of pulmonary embolus . Additionally he was hypoxic in the ED and provided supplemental O2. He was admitted for treatment of acute respiratory failure with pneumonia. COVID testing 11/07/19 was negative. He continued to describe this right abdominal pain but noted it to be worse with coughing or deep breaths. CT abdomen/pelvis and abdominal ultrasound demonstrated no obvious etiologies to explain this pain. Rib XR showed no fractures. Ultimately, CTA chest was performed 11/08 which revealed evidence of segmental right lower lobe pulmonary embolism with associated infarction. He was started on therapeutic dosing of Lovenox and transitioned to Xarelto. He noted R arm DVT and CINDY PE about 1 year ago during which time he took Xarelto for several months before his doctor discontinued it. Explained that given the recurrence and his predisposition due to malignancy, he may need to stay on anticoagulation for a longer period of time. He was treated for pneumonia with IV azithromycin and rocephin, discharged with oral antibiotics for 3 more days to finish the course. It is felt that his right bowel pain was likely referred pleuritic pain related to PE. Home oxygen evaluation was performed day of discharge and found him to not require any supplemental O2. He was hemodynamically stable for discharge 11/10/19 with instructions to follow up with his PCP in 1 week, and to follow up with his other specialists including Dr Baez and his hospital coder at [facility] Dr Parson. (2) Pulmonary embolism: Qualifiers: Pulmonary embolism type: unspecified Chronicity: acute Acute cor pulmonale presence: without acute cor pulmonale Qualified Code(s): I26.99 - Other pulmonary embolism without acute cor pulmonale Code(s): I26.99 - Other pulmonary embolism without acute cor pulmonale Status: Acute Assessment and Plan: Right lower lobe with associated infarction. Treated with sub q lovenox then transitioned to Xarelto prior to discharge. Follow up with PCP. (3) Sepsis: Qualifiers: Sepsis type: sepsis due to unspecified organism Sepsis acute organ dysfunction status: unspecified Qualified Code(s): A41.9 - Sepsis, unspecified organism Code(s): A41.9 - Sepsis, unspecified organism Status: Resolved Assessment and Plan: Evident on arrival by leukocytosis and tachycardia. Suspected source is respiratory. Lactic acid normal limits. Blood cultures pending with no growth to date - will follow until final. (4) Hypoxia: Code(s): R09.02 - Hypoxemia Status: Resolved Assessment and Plan: Resolved. Suspect secondary to PE and/or PNA. (5) COPD (chronic obstructive pulmonary disease): Qualifiers: COPD type: unspecified COPD Qualified Code(s): J44.9 - Chronic obs
[2019-11-10] MEDS: RIVAROXABAN 15 MG TABLET PO (17:01)
[2019-11-12 15:24] LABS: Legionella pneumophila Ag Ur Not Detected (Not Detected)
[2019-11-12 16:18] LABS: Pneumococcal Antigen Urine Not Detected (Not Detected)
--- NOTE | 2019-11-13 08:30 | PC.NURSE ---
Blood cx are negative.
== END 2019-11-10 17:20 | disposition home or self-care (01) ==
LOC: ANHED 10:21 → ANH3MEDSUR 11:01
PROVIDERS: Emergency Medicine; Internal Medicine; Admitting Provider Hospitalist; Emergency Provider Emergency Medicine; PCP Family Medicine; Visit Provider Physician Assistant
DX: J18.9 Pneumonia, unspecified organism (principal); Z03.818 Encounter for observation for suspected exposure to other biological agents ruled out; I26.99 Other pulmonary embolism without acute cor pulmonale; C34.91 Malignant neoplasm of unspecified part of right bronchus or lung; D15.1 Benign neoplasm of heart; F11.90 Opioid use, unspecified, uncomplicated; G89.4 Chronic pain syndrome; J44.9 Chronic obstructive pulmonary disease, unspecified; K76.0 Fatty (change of) liver, not elsewhere classified; I48.91 Unspecified atrial fibrillation; I10 Essential (primary) hypertension; N28.1 Cyst of kidney, acquired; R10.11 Right upper quadrant pain; Z92.3 Personal history of irradiation; Z86.718 Personal history of other venous thrombosis and embolism; Z86.711 Personal history of pulmonary embolism; Z87.891 Personal history of nicotine dependence
CPT/HCPCS: 36415; 51701; 71045; 71046; 71110; 71275; 74177; 76700; 78580; 80048; 80053; 81001; 82550; 82728; 83605; 83615; 83690; 83735; 84100; 85025; 85610; 85730; 86140; 87040; 87449; 87635; 87899; 93005; 94618; 94640; 96361; 96365; 96367; 96372; 96375; 99285; A9270; A9540; C9803; G0378; G0379; J0456; J0696; J1650; J7030; Q9967; U0003

== ENCOUNTER 2020-03-05 13:29 | Outpatient (CLI) | payer OTHER, SELFPAY ==
--- NOTE | ~2020-03-05 | CT_ITS ---
EXAMINATION:CT chest w con DATE: 03/05/2020 14:41 INDICATION: Non-small cell cancer right lung. TECHNIQUE: Computed tomography (CT) of the chest was performed with 75 mL Omnipaque 350 intravenous c ontrast. Automated exposure control and iterative reconstruction technique were employed. The dose-le ngth product (DLP) was 215.01 mGy-cm. COMPARISON: Chest CT 11/09/2019, 12/29/2018, 07/01/2018 FINDINGS: There is mild emphysema. There is a 1.5 cm nodule in right lung upper lobe with surrounding airspace opacities with volume loss and architectural distortion. There is a chronic 6 mm nodule at minor fissure, likely benign. There is mild atelectasis bilaterally. No pleural effusion. The heart s ize is normal. No pericardial effusion. There is a 2.6 cm mass in left atrium of heart. There is mild thoracic spondylosis. IMPRESSION: 1. Stable nodule in right lung upper lobe with surrounding airspace opacities, consistent with radiat ion fibrosis. 2. Chronic 2.6 cm mass in left atrium of the heart, consistent with an atrial myxoma. Reviewed, dictated and finalized at location A. IMPRESSION: 1. Stable nodule in right lung upper lobe with surrounding airspace opacities, consistent with radiation fibrosis. 2. Chronic 2.6 cm mass in left atrium of the heart, consistent with an atrial m yxoma.
== END 2020-03-05 13:30 | disposition home or self-care (01) ==
PROVIDERS: PCP Family Medicine; Visit Provider Internal Medicine Hematology & Oncology
DX: C34.91 Malignant neoplasm of unspecified part of right bronchus or lung (principal)
CPT/HCPCS: 71260; Q9967

== ENCOUNTER 2020-07-14 07:43 | Outpatient (CLI) | payer OTHER, SELFPAY ==
--- NOTE | ~2020-07-14 | CT_ITS ---
EXAMINATION: CT diagnostic chest w con DATE: 07/14/2020 08:23 INDICATION: Non-small cell right lung cancer restaging TECHNIQUE: Computed tomography (CT) of the chest was performed without intravenous contrast. Automate d exposure control and iterative reconstruction technique were employed. Exam dose: 316.63 mGy-cm to crispin exam DLP. COMPARISON: 03/05/2020 CT chest FINDINGS: Chronic fibrotic change previously ascribed to radiation fibrosis is again noted in the rig ht upper lobe but there is increased soft tissue density in this region since 03/05/2020; recurrent ma lignancy is not excluded. Consider PET/CT scan. Stable focal approximately 6 mm irregular opacity of the middle lobe (series 4 image 61) since 020. Chronic discoid atelectasis or scarring at the posterior right lung base, right lower lobe. No pulmonary infiltrate or consolidation or interval pulmonary mass lesion is noted otherwise. No hilar or mediastinal mass lesion or lymphadenopathy. Normal heart size. No pericardial or pleural effusion. No thoracic aortic aneurysm or dissection. Diffuse hepatic steatosis. Status post cholecystectomy. Normal morphology of the adrenal glands. No suspicious osteolytic or osteoblastic lesions. IMPRESSION: Increased soft tissue thickening at an area of previously reported radiation fibrosis in the right upper lung since 03/05/2020; recurrent neoplasm is not excluded. Consider PET/CT scanning Reviewed, dictated and finalized at Location [facility]. Reviewed, dictated and finalized at location A. [employer]
== END 2020-07-14 07:44 | disposition home or self-care (01) ==
LOC: ANHIMG 07:46
PROVIDERS: Family Provider Family Medicine; PCP Family Medicine; Visit Provider Internal Medicine Hematology & Oncology
DX: C34.91 Malignant neoplasm of unspecified part of right bronchus or lung (principal); K76.0 Fatty (change of) liver, not elsewhere classified; Z90.49 Acquired absence of other specified parts of digestive tract
CPT/HCPCS: 71260; Q9967

== ENCOUNTER 2020-07-19 15:33 | Outpatient (CLI) | payer OTHER, SELFPAY ==
[2020-07-19 15:47] LABS: Basophils Absolute Auto 0.1 K/mm3 (0.0-0.1); Basophils Percent Auto 0.8 % (0.2-1.2); Eosinophils Absolute Auto 0.3 K/mm3 (0-0.3); Eosinophils Percent Auto 4.4 % (0-4.4); Hematocrit 40.8 % (42.0-52.0); Hemoglobin 12.8 g/dL (14.0-18.0); Immature Granulocyte Absolute 0.01 K/mm3 (0.00-0.031); Immature Granulocyte Percent A 0.2 % (0-0.5); Lymphocytes Absolute Auto 2.55 K/mm3 (0.9-3.2); Lymphocytes Percent Auto 41.6 % (18.3-44.2); Mean Corpuscular HGB Conc 31.4 g/dl (32-36); Mean Corpuscular Hemoglobin 26.8 pg (26-34); Mean Corpuscular Volume 85.5 fl (80-100); Mean Platelet Volume 10.3 fl (7.4-10.4); Monocytes Absolute Auto 0.5 K/mm3 (0.1-0.6); Monocytes Percent Auto 7.3 % (2.6-8.5); Neutrophils Absolute Auto 2.8 K/mm3 (1.3-6.7); Neutrophils Percent Auto 45.7 % (45.5-73.1); Platelet Count Result 222 k/mm3 (150-375); Red Blood Count 4.77 M/mm3 (4.6-6.20); Red Cell Distribution Width 15.7 % (11.5-14.5); White Blood Count 6.1 K/mm3 (4.5-10.0)
[2020-07-19 15:52] LABS: Blood Urea Nitrogen 8 mg/dL (8-26); Carbon Dioxide 27 mmol/L (22-30); Chloride 105 mmol/L (98-109); Estimated Glomerular Filt Rate > 60; Glucose 99 mg/dL (70-105); Potassium 3.6 mmol/L (3.5-4.9); Sodium 141 mmol/L (138-146)
[2020-07-19 16:35] LABS: Alanine Aminotransferase 31 U/L (4-50); Albumin Level 3.5 g/dL (3.5-5.1); Alkaline Phosphatase 87 U/L (38-126); Anion Gap 6 mmol/L (8-16); Aspartate Amino Transferase 29 U/L (17-59); Bilirubin,Total 0.5 mg/dL (0.2-1.3); Blood Urea Nitrogen 9 mg/dL (9-20); Calcium 8.6 mg/dL (8.4-10.2); Carbon Dioxide 26 mmol/L (22-30); Chloride 108 mmol/L (98-107); Estimated Glomerular Filt Rate > 60; Glucose 99 mg/dL (75-110); Potassium 3.8 mmol/L (3.4-5.0); Sodium 140 mmol/L (137-145)
[2020-07-20 13:01] LABS: Iron 77 ug/dL (49-181)
[2020-07-20 13:13] LABS: Percent Iron Saturation 19 % (20-50)
[2020-07-20 13:48] LABS: Folic Acid 3.2 ng/mL (2.76->20)
== END 2020-07-19 15:34 | disposition home or self-care (01) ==
LOC: ANHLAB 15:35
PROVIDERS: PCP Family Medicine; Visit Provider Internal Medicine Hematology & Oncology
DX: D64.9 Anemia, unspecified (principal); C34.91 Malignant neoplasm of unspecified part of right bronchus or lung
CPT/HCPCS: 36415; 80048; 80053; 82607; 82728; 82746; 83540; 83550; 85025

== ENCOUNTER 2020-07-22 13:47 | Outpatient (CLI) | payer OTHER, SELFPAY ==
--- NOTE | ~2020-07-22 | PE_ITS ---
EXAMINATION: PET skull to mid thigh DATE: 07/22/2020 15:39 INDICATION: Non-small cell lung cancer. TECHNIQUE: Blood glucose level was 96 mg/dL. 9.669 mCi of 18-fluorodeoxyglucose (18-FDG) was administ ered i.v. Low dose computed tomography (CT) images were acquired from the base of the brain to the pr oximal thighs for attenuation correction and anatomic localization. Automated exposure control was em ployed. Dose-length product (DLP) was 678 mGy-cm. Positron emission tomography (PET) images were acqu ired in the same distribution. COMPARISON: Chest CT 07/14/2020, 03/05/20, 08/04/19, 07/01/18, PET/CT 07/23/18 FINDINGS: Head/neck: There is increased activity in the oropharynx and glottis without CT correlate, likely phy siologic. There are no pathologically enlarged lymph nodes. Chest: There is mild emphysema. There are airspace and groundglass opacities in right upper lobe with volume loss and architectural distortion without increased activity, consistent with primary broncho genic carcinoma and changes of radiation therapy. No pleural effusion. The heart size is normal. Ther e is a poorly visualized mass with central calcifications in the left atrium of the heart with maximu m SUV of 4.2. There are coronary artery calcifications. No pericardial effusion. Abdomen/pelvis/proximal thighs: There is diffuse hepatic steatosis. There are changes of cholecystect sonia. The spleen, pancreas, adrenal glands, and kidneys are normal. There are no pathologically enlarg ed lymph nodes. There is no free intraperitoneal fluid. There are no dilated loops of bowel. There ar e changes of anterior and posterior fusion procedures of lower lumbar spine. IMPRESSION: 1. Airspace and groundglass opacities in right upper lobe with volume loss and architectural distorti on without increased activity, worsened from 03/05/20, consistent with a combination of primary bronch ogenic carcinoma and changes of radiation therapy. Note that the malignancy did not demonstrate incre ased activity on pretreatment PET. 2. Chronic poorly visualized mass in left atrium of the heart with increased activity, consistent wit h a myxoma. Reviewed, dictated and finalized at location A. [employer] IMPRESSION: 1. Airspace and groundglass opacities in right upper lobe with volume loss and architectural distortion without increased activity, worsened from 03/05/20, con sistent with a combination of primary bronchogenic carcinoma and changes of rad iation therapy. Note that the malignancy did not demonstrate increased activity on pretreatment PET. 2. Chronic poorly visualized mass in left atrium of the heart with increased ac tivity, consistent with a myxoma.
[2020-07-22 14:13] LABS: Glucose Point of Care 96 (65-105)
== END 2020-07-22 13:48 | disposition home or self-care (01) ==
PROVIDERS: PCP Family Medicine; Visit Provider Internal Medicine Hematology & Oncology
DX: C34.90 Malignant neoplasm of unspecified part of unspecified bronchus or lung (principal); R91.8 Other nonspecific abnormal finding of lung field
CPT/HCPCS: 78815; 82948; A9552

== ENCOUNTER 2020-08-09 12:25 | Outpatient (CLI) | payer OTHER, SELFPAY ==
--- NOTE | ~2020-08-09 | CT_ITS ---
EXAMINATION: CT diagnostic chest w con EXAM DATE: 08/09/2020 13:26 INDICATION: Non-small cell lung cancer follow-up. TECHNIQUE: Spiral CT of the chest following intravenous injection of 75 mL Omnipaque 350. Axial, cor onal and sagittal images were reviewed. Coronal maximum intensity pixel images of chest reviewed. Pj laird dose-length product (DLP) for this examination was 323.23 mGy-cm. The exposure was tailored accor ding to patient size (auto mA exposure control), and iterative reconstruction (ASIR) was used as lorrie tional dose reduction technique. Comparison is made to prior examination from 07/14/2020. FINDINGS: There is chronic left atrial mass abutting the septum measuring about 3 cm unchanged, could be my exam. Right upper lobe. Linear and more nodular opacities are unchanged, appearance is consist ent with fibrosis and treated lung cancer. Solid component has increased in size compared to , but appears unchanged compared to 07/14/2020. There is mild emphysema and hyperinflation. There are no pleural or pericardial effusions. Tracheob ronchial tree is patent. There is no mediastinal, hilar or axillary lymphadenopathy. There is no pneumothorax. Heart normal in size. There is mild coronary arterial calcification, arterial scler osis. There is hepatic steatosis. There are cholecystectomy clips. There is mild thoracic spondylo sis without osteoblastic or osteolytic lesions identified. IMPRESSION: 1. Right upper lobe linear nodular opacities, combination of fibrosis and treated lung cancer. Stabl e compared to last month, but increased in size compared to 03/05. 2. Chronic left atrial mass. 3. Hepatic steatosis. Reviewed, dictated and finalized at location [facility]. [employer]ANT [employer] IMPRESSION: 1. Right upper lobe linear nodular opacities, combination of fibrosis and pasquale jamie lung cancer. Stable compared to last month, but increased in size compared to 03/05. 2. Chronic left atrial mass. 3. Hepatic steatosis.
== END 2020-08-09 12:26 | disposition home or self-care (01) ==
LOC: ANHIMG 12:25
PROVIDERS: PCP Family Medicine; Visit Provider Internal Medicine Hematology & Oncology
DX: C34.91 Malignant neoplasm of unspecified part of right bronchus or lung (principal); R91.8 Other nonspecific abnormal finding of lung field; K76.0 Fatty (change of) liver, not elsewhere classified
CPT/HCPCS: 71260; Q9967

== ENCOUNTER 2020-09-09 09:09 | Observation (INO) | payer OTHER, SELFPAY ==
[2020-09-09] VITALS (17 sets, daily range): BP systolic 94–162; BP diastolic 72–88; PULSE 78–126; RESP 16–28; TEMP 36.1–36.8; O2SAT 93–100; BMI 27.6
--- NOTE | ~2020-09-09 | CT_ITS ---
EXAMINATION: CTA chest PE protocol DATE: 09/09/2020 11:07 INDICATION: Increased dyspnea, shortness of breath. Positive d-dimer. History of pulmonary embolism. COPD. Adenocarcinoma of the lung. TECHNIQUE: Computed tomography angiography (CTA) of the chest was performed with 100 mL Omnipaque-350 intravenous contrast timed to evaluate the pulmonary arteries. Coronal maximum intensity projection 3D-reconstructions were created by the technologist. Automated exposure control and iterative reconst ruction technique were employed. Exam dose: 531.50 mGy-cm total exam DLP. COMPARISON: 11/09/2019 CT pulmonary scan: Segmental right lower lobe artery embolism with associated i nfarction was reported 08/09/2020 CT chest FINDINGS: There is moderate contrast enhancement of the pulmonary arteries and no evidence of acute p ulmonary embolism. No thoracic aortic aneurysm or dissection. Left atrial soft tissue mass measuring up to 2.1 x 3.2 x 3.8 cm diameter. Heart size is within normal range. No pericardial effusion. No pleural effusion. No hilar or mediastinal mass lesion or lymphadenopathy. Stable right upper lobe irregular soft tissue thickening likely due to post radiation scarring. Stabl e mild discoid scarring at the posterior right lung base. No interval pulmonary infiltrate or consolidation or pulmonary mass lesion. Normal morphology of the adrenal glands. Status post cholecystectomy. No suspicious osteolytic or osteoblastic lesions are noted. IMPRESSION: No evidence of pulmonary embolism Persistent left atrial mass, stable in size since August 09, 2020 Stable right upper lobe probable postoperative radiation fibrosis since August 09, 2020 Reviewed, dictated and finalized at [facility]. Reviewed, dictated and finalized at location [facility]. IMPRESSION: No evidence of pulmonary embolism Persistent left atrial mass, stable in size since August 09, 2020 Stable right upper lobe probable postoperative radiation fibrosis since 2020
--- NOTE | 2020-09-09 09:15 | ECG_ITS ---
Measurements Intervals [place] Rate: 134 P: 76 NC: 136 QRS: 84 QRSD: 76 T: 79 QT: 331 QTc: 495 Interpretive Statements SINUS TACHYCARDIA NONSPECIFIC T-WAVE ABNORMALITY- HIGH LATERAL LEADS BASELINE ARTIFACT- I, II, III, AVR, AVL, AVF, V1, V4-V6 ABNORMAL ECG Electronically Signed On 09-09-2020 12:13:49 CDT by Charles Zhou D.O.
[2020-09-09] MEDS: LEVALBUTEROL NEB 1.25 MG/3 ML INHALATION ×4 (09:22→22:44)
[2020-09-09] MEDS: methylPREDNISolone SOD SUCC 125 MG VIAL IV PUSH (09:33)
[2020-09-09 10:00] LABS: Base Excess ABG -2.6 mmol/L (0-2); HCO3 ABG 21.1 mmol/L (23-29); Oxygen Content ABG 19.6 %vol (16.0-22.0); Oxygen Saturation ABG 99.1 % (95-97); Oxyhemoglobin 97.4 % (94-100); PCO2 ABG 33.3 mmHg (35-45); PO2 ABG 152.4 mmHg (80-90); Total Hemoglobin 14.1 g/dL; pH ABG 7.42 (7.35-7.45)
[2020-09-09 10:01] LABS: Site Drawn RIGHT RADIAL
[2020-09-09 10:02] LABS: Device NASAL CANNULA; Liters per Minute 4.5 LPM; Modified Allen's Test Pass
[2020-09-09 10:14] LABS: Partial Thromboplastin Time 24.2 SEC (23.90-30.70); Prothrombin Time 10.3 Seconds (9.50-12.10)
[2020-09-09 10:15] LABS: BNP 8.6 pg/mL (0-100)
[2020-09-09 10:16] LABS: D Dimer 0.62 mg/L (0.19-0.50)
[2020-09-09 10:19] LABS: Lactic Acid Reflex 2.1 mmol/L (0.4-2.0)
[2020-09-09 10:26] LABS: Alanine Aminotransferase 36 U/L (16-63); Albumin Level 3.3 g/dL (3.4-5.0); Alkaline Phosphatase 91 U/L (46-116); Anion Gap 10 mmol/L (8-16); Aspartate Amino Transferase 15 U/L (15-37); Bilirubin,Total 0.4 mg/dL (0.00-1.00); Blood Urea Nitrogen 10 mg/dL (7-18); Calcium 9.2 mg/dL (8.5-10.1); Carbon Dioxide 28 mmol/L (21-32); Chloride 106 mmol/L (98-108); Estimated Glomerular Filt Rate 51; Glucose 168 mg/dL (70-99); Magnesium 2.1 mg/dL (1.8-2.4); Osmolality Calculated 301 mOsm/kg (285-295); Potassium 3.8 mmol/L (3.5-5.1); Sodium 144 mmol/L (136-145); Total Protein 6.9 g/dL (6.4-8.2); Troponin I 8.5 ng/L (0.00-60.4)
[2020-09-09 10:26] LABS: Basophils Absolute Auto 0.04 K/mm3 (0.00-0.10); Basophils Percent Auto 0.8 % (0.0-1.0); Eosinophils Absolute Auto 0.28 K/mm3 (0.02-0.50); Eosinophils Percent Auto 5.4 % (1.0-6.0); Hematocrit 42.5 % (40.0-54.0); Hemoglobin 13.3 g/dL (14.0-18.0); Immature Granulocyte Absolute 0.01 K/mm3 (0.00-0.00); Immature Granulocyte Percent A 0.2 % (0.0-0.0); Lymphocytes Absolute Auto 1.39 K/mm3 (1.10-4.50); Lymphocytes Percent Auto 26.8 % (18.0-42.0); Mean Corpuscular HGB Conc 31.3 g/dL (32.0-36.0); Mean Corpuscular Hemoglobin 27.8 pg (27.0-31.0); Mean Corpuscular Volume 88.9 fL (78.0-102.0); Mean Platelet Volume 10.9 fl (8.7-11.0); Monocytes Absolute Auto 0.38 K/mm3 (0.10-0.90); Monocytes Percent Auto 7.3 % (2.0-11.0); Neutrophils Absolute Auto 3.1 K/mm3 (1.7-7.2); Neutrophils Percent Auto 59.5 % (50.0-70.0); Platelet Count Result 218 K/mm3 (150-420); Red Blood Count 4.78 M/mm3 (4.70-6.10); Red Cell Distribution Width 16.3 % (11.6-14.4); White Blood Count 5.2 K/mm3 (4.8-10.8)
[2020-09-09 10:27] LABS: Influenza Control Valid (Valid)
[2020-09-09 10:27] LABS: SARS-CoV-2 Ag Negative (Negative)
[2020-09-09] MEDS: SODIUM CHLORIDE 0.9% IV 1,000 ML 150 ML IV CONT (10:27)
--- NOTE | 2020-09-09 11:18 | ED.SOB ---
HPI - SOB/Dyspnea General Chief Complaint: Shortness of Breath/Dyspnea Stated Complaint: AMBULANCE Source: patient History of Present Illness HPI Narrative: this is a 60-year-old gentleman that presents via EMS with shortness of breath. The patient has a history of COPD and history of DVTs with pulmonary embolism in the past and history of early stage non-small cell lung cancer of the right upper lobe with some history of radiation therapy back in November and December of 2018 with no recent radiation therapy. The patient while at home uses nebulizer treatments and over the past week has felt like he was increasingly more short of breath and then over the last 24 hours even more short of breath and the patient's states that he was more short of breath this morning and received his nebulizer treatment gave himself 3 treatments and was still satting 70% on room air. Called EMS and was brought to the emergency department was on a non-rebreather of 15L satting at 100% at that time. Patient is afebrile initially a had a elevated heart rate of 126, with no fever chills with no chest pain no abdominal pain no cough. MD elicited complaint: shortness of breath Onset (ago): day(s) Timing: constant Severity: severe Exacerbating factors: exertion Relieving factors: oxygen Known history of: COPD Associated symptoms: wheezing Related Data Home Medications Medication Instructions Recorded Confirmed duloxetine 30 mg PO HS 11/07/19 09/09/20 duloxetine 60 mg PO DAILY 11/07/19 09/09/20 pregabalin 225 mg PO BID 11/07/19 09/09/20 triamcinolone acetonide 1 applic TOPICAL QID PRN 11/07/19 09/09/20 albuterol sulfate 1 inh INHALATION TID PRN 09/09/20 09/09/20 alprazolam 1 mg PO TID PRN 09/09/20 09/09/20 cholecalciferol (vitamin D3) 1,250 mcg PO WEEKLY 09/09/20 09/09/20 hydrochlorothiazide 12.5 mg PO DAILY 09/09/20 09/09/20 oxycodone [OxyContin] 30 mg PO BID 09/09/20 09/09/20 prednisone 10 mg PO TID 09/09/20 09/09/20 zolpidem 5 mg PO DAILY 09/09/20 09/09/20 Allergies Allergy/AdvReac Type Severity Reaction Status Date / Time bee venom protein (honey bee) Allergy Unknown Swelling Verified 08/11/20 10:41 No Known Drug Allergies Allergy Unknown Other Verified 08/11/20 10:41 Review of Systems Review of Systems: All systems reviewed & are unremarkable except as noted in HPI and below PMFSH Past Medical History Medical History Adenocarcinoma, lung Non-small cell carcinoma diagnosed June 2018. Follows with Dr. Baez and Dr. Cavazos; underwent radiation therapy from 12/05/2018 to 12/18/2018 and he says he is in remission. Anxiety Atrial fibrillation S/p cardiac ablation by Dr. 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 Followed by Dr. Parson at [facility] last seen around December 2018. Chronic pain syndrome Due to chronic lower back pain after complications with lower spinal fusion 2009. COPD (chronic obstructive pulmonary disease) History of DVT (deep vein thrombosis) Right upper extremity DVT and bilateral PE December 2018 for which he took Xarelto for several months. History of pulmonary embolism December 2018 Hypertension Reports he is no longer on medications for such. Peripheral neuropathy Surgical History Surgical History History of appendectomy In the History of carpal tunnel release Left 2011 History of elbow surgery Left elbow ulnar neurolysis History of lumbar fusion Anterior and posterior L4-S1 fusion 2009 Hx of cholecystectomy In the Family History Family History Father Acute myocardial infarction Pulmonary embolism Sibling Breast cancer Other Family history of chronic obstructive pulmonary disease Social History Social History (Reviewed 09/09/20 @ 11:22 by Tan Davila
[2020-09-09] MEDS: SODIUM CHLORIDE 0.9% IV 1,000 ML 100 ML IV CONT ×2 (12:10→19:43)
--- NOTE | 2020-09-09 12:55 | PHAR ---
SPOKE W/[id number]. CONFIRMED PT. TAKE PREGABALIN 225MG BID, OXYCONTIN 30MG BID, AND DULOXETINE 60MG QAM AND 30MG QHS. TLS
--- NOTE | 2020-09-09 12:57 | PM.IMHP ---
H&P: HPI History of Present Illness Date/Time: 09/09/20 12:57 this is a 60-year-old white male who presented to our ED today with complaints of shortness of breath. Patient has a past medical history of lung CA, anxiety, A. fib, BPH, cardiac myxoma, COPD, history of DVT, history of PE, hypertension, chronic pain syndrome and peripheral neuropathy. According to patient approximately 2 weeks ago he called his primary care physician for steroids due to dyspnea. Patient noted that his primary care physician gave him 60 mg of prednisone for 3 days which did not help at all. Patient noted approximately for 1 week his shortness of breath has worsened he also noted that on exertion his shortness of breath became worse. He also noted that he had sputum production that was greenish-yellowish to brownish in color he also noted a couple times had red-tinged sputum. Patient noted that while he was at home he did utilize his nebulizers more than normal. He noted that his took his oxygen level and his sats were in the 70s this is when EMS was called. While in the ED patient received Solu-Medrol, nebulizer treatment, 1 dose of Rocephin and IV fluid. Patient notes that his condition has much improved since arriving to the ER. 3 L nasal cannula with sats at 95%. Patient did receive his on August 18 and was to receive his second dose today. He also tested negative for Covid, WBCs 5.2, hemoglobin 13.3, hematocrit 42.5, platelets 218, D-dimer 0.62, lactic acid 2.1 ,blood gas respiratory alkalosis, influenza and Covid negative, CTA negative for PE. Patient does continue to complain of a productive cough with greenish-brownish sputum, and shortness of breath on exertion. Patient is being admitted for COPD exacerbation. Observation 60 minutes with patient Disposition return home with self-care Chief Complaint: Shortness of breath/dyspnea Review of Systems Review of Systems: Narrative: A 14 organ system Review of Systems was performed and pertinent positives included in the HPI, otherwise remaining ROS is negative. [facility] Past Medical History Medical History Adenocarcinoma, lung Non-small cell carcinoma diagnosed June 2018. Follows with Dr. Baez and Dr. Cavazos; underwent radiation therapy from 12/05/2018 to 12/18/2018 and he says he is in remission. Anxiety Atrial fibrillation S/p cardiac ablation by Dr. 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 Followed by Dr. Parson at [facility] last seen around December 2018. Chronic pain syndrome Due to chronic lower back pain after complications with lower spinal fusion 2009. COPD (chronic obstructive pulmonary disease) History of DVT (deep vein thrombosis) Right upper extremity DVT and bilateral PE December 2018 for which he took Xarelto for several months. History of pulmonary embolism December 2018 Hypertension Reports he is no longer on medications for such. Peripheral neuropathy Surgical History Surgical History History of appendectomy In the History of carpal tunnel release Left 2011 History of elbow surgery Left elbow ulnar neurolysis History of lumbar fusion Anterior and posterior L4-S1 fusion 2009 Hx of cholecystectomy In the Family History Family History Father Acute myocardial infarction Pulmonary embolism Sibling Breast cancer Other Family history of chronic obstructive pulmonary disease Social History Social History Social History: Mr. Garay is and lives at home with his children in [place]. 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 He denies significant alcohol use, drinks socially. Smoked 2 packs per day of cigarettes x 40 years and quit Christm
[2020-09-09 13:20] LABS: Reflex Lactic Acid Yes or No Add Lactic
--- NOTE | 2020-09-09 13:43 | ADMGEN ---
This patient, Jn Garay, was admitted to 2nd Floor Room 204-1. Patient/family oriented to hospital policies and general routines including ID bracelet, bed and alarms, visiting hours, pain management, procedures, bathroom and other care routines, personal items, smoking policy, room service/diet, and visiting hours. Information on how to activate the Rapid Response Team has been discussed. Patient/Family are encouraged to report perceived risks to care and to ask questions if they do not understand what they are told or what they should do.
[2020-09-09] MEDS: methylPREDNISolone SOD SUCC 125 MG VIAL 80 MG IV PUSH ×2 (14:08→21:04)
[2020-09-09 14:14] LABS: Lactic Acid 2.2 mmol/L (0.4-2.0)
--- NOTE | 2020-09-09 16:42 | PC.NURSE ---
urine and sputum obtained sent to lab. kv noemi
[2020-09-09 17:37] LABS: Add Urine Microscopic? YES; Appearance Urine Clear (Clear); Bilirubin Urine Negative (Negative); Blood Urine Negative (Negative); Color Urine Yellow (Yellow); Glucose Urine UA Trace (Negative); Ketones Urine Negative (Negative); Leukocyte Esterase Ur Negative LEU/UL (Negative); Nitrate Urine Negative (Negative); Protein Urine Trace (Negative); Urobilinogen Urine 0.2 mg/dL (0.2-1.0); pH Urine 5.5 (5.0-8.0)
[2020-09-09 17:41] LABS: Bacteria Urine None seen /hpf; RBC Urine 0-2 /hpf (0-2); Squamous Epithelial Cell Urine Rare /hpf (Few); WBC Urine None seen /hpf (0-3)
[2020-09-09] MEDS: ENOXAPARIN 30 MG/0.3 ML SYRINGE SUB-Q (17:43)
[2020-09-09] MEDS: DULoxetine HCL 30 MG CAPSULE.DR PO (21:03)
[2020-09-09] MEDS: oxyCODONE HCL (*CRX) 10 MG TAB SR 12HR 30 MG PO (21:03)
[2020-09-09] MEDS: guaiFENesin 12 HR 600 MG TABCR 1200 MG PO (21:03)
[2020-09-09] MEDS: PREGABALIN (*CRX) 25 MG CAPSULE PO (21:04)
[2020-09-09] MEDS: PREGABALIN (*CRX) 50 MG CAPSULE 200 MG PO (21:04)
[2020-09-09] MEDS: SALMET XINAFT/FLUTIC PROPIN 250 MCG/50 MCG INH CAP 1 PUFF INHALATION (21:04)
--- NOTE | 2020-09-09 21:38 | PC.NURSE ---
pt resting in bed watching tv, iv infusing per order and alarms on, belongings and call light within reach, pt would like sleeping pill after breathing tx at 2300.
[2020-09-09] MEDS: traZODone HCL 50 MG TABLET PO (22:51)
[2020-09-10] VITALS (16 sets, daily range): BP systolic 125–147; BP diastolic 74–87; PULSE 77–134; RESP 16–20; TEMP 36.3–37.1; O2SAT 92–98
--- NOTE | 2020-09-10 02:13 | PC.NURSE ---
pt sleeping, iv fluids infusing per order/ alarm on, respirations even and regular, no evidence of distress noted, belongings and call light within reach
[2020-09-10] MEDS: methylPREDNISolone SOD SUCC 125 MG VIAL 80 MG IV PUSH ×3 (05:02→20:36)
[2020-09-10] MEDS: LEVALBUTEROL NEB 1.25 MG/3 ML INHALATION ×4 (05:34→22:46)
[2020-09-10] MEDS: SODIUM CHLORIDE 0.9% IV 1,000 ML 100 ML IV CONT ×2 (05:52→16:28)
[2020-09-10 06:27] LABS: Basophils Absolute Auto 0.01 K/mm3 (0.00-0.10); Basophils Percent Auto 0.1 % (0.0-1.0); Hematocrit 37.8 % (40.0-54.0); Immature Granulocyte Absolute 0.07 K/mm3 (0.00-0.00); Immature Granulocyte Percent A 0.6 % (0.0-0.0); Lymphocytes Absolute Auto 0.96 K/mm3 (1.10-4.50); Lymphocytes Percent Auto 7.6 % (18.0-42.0); Mean Corpuscular HGB Conc 31.7 g/dL (32.0-36.0); Mean Corpuscular Hemoglobin 27.8 pg (27.0-31.0); Mean Corpuscular Volume 87.5 fL (78.0-102.0); Mean Platelet Volume 10.4 fl (8.7-11.0); Monocytes Absolute Auto 0.25 K/mm3 (0.10-0.90); Neutrophils Absolute Auto 11.4 K/mm3 (1.7-7.2); Neutrophils Percent Auto 89.7 % (50.0-70.0); Platelet Count Result 243 K/mm3 (150-420); Red Blood Count 4.32 M/mm3 (4.70-6.10); Red Cell Distribution Width 16.2 % (11.6-14.4); White Blood Count 12.7 K/mm3 (4.8-10.8)
[2020-09-10 06:47] LABS: Lactic Acid Reflex 1.2 mmol/L (0.4-2.0)
[2020-09-10 06:53] LABS: Alanine Aminotransferase 31 U/L (16-63); Alkaline Phosphatase 78 U/L (46-116); Anion Gap 9 mmol/L (8-16); Aspartate Amino Transferase 10 U/L (15-37); Bilirubin,Total 0.5 mg/dL (0.00-1.00); Blood Urea Nitrogen 9 mg/dL (7-18); Calcium 8.4 mg/dL (8.5-10.1); Carbon Dioxide 25 mmol/L (21-32); Chloride 107 mmol/L (98-108); Estimated CRCL calculation 76 ml/min; Estimated Glomerular Filt Rate > 60; Glucose 142 mg/dL (70-99); Osmolality Calculated 292 mOsm/kg (285-295); Potassium 4.3 mmol/L (3.5-5.1); Sodium 141 mmol/L (136-145); Total Protein 6.3 g/dL (6.4-8.2)
[2020-09-10 07:38] LABS: Base Excess ABG -1.7 mmol/L (0-2); Device NASAL CANNULA; HCO3 ABG 22.2 mmol/L (23-29); Modified Allen's Test Pass; Oxygen Content ABG 16.5 %vol (16.0-22.0); Oxygen Saturation ABG 92.6 % (95-97); Oxyhemoglobin 92.3 % (94-100); PO2 ABG 63.3 mmHg (80-90); Site Drawn LEFT RADIAL; Total Hemoglobin 12.7 g/dL; pH ABG 7.42 (7.35-7.45)
[2020-09-10] MEDS: oxyCODONE HCL (*CRX) 10 MG TAB SR 12HR 30 MG PO ×2 (09:06→20:38)
[2020-09-10] MEDS: DULoxetine HCL 30 MG CAPSULE.DR 60 MG PO (09:08)
[2020-09-10] MEDS: PREGABALIN (*CRX) 50 MG CAPSULE 200 MG PO ×2 (09:09→20:37)
[2020-09-10] MEDS: PREGABALIN (*CRX) 25 MG CAPSULE PO ×2 (09:10→20:39)
[2020-09-10] MEDS: ZOLPIDEM TARTRATE (*CRX) 5 MG TABLET PO (09:10)
[2020-09-10] MEDS: AZITHROMYCIN 250 MG TABLET 500 MG PO (09:11)
[2020-09-10] MEDS: guaiFENesin 12 HR 600 MG TABCR 1200 MG PO ×2 (09:12→20:38)
[2020-09-10] MEDS: hydroCHLOROthiazide 12.5 MG CAPSULE PO (09:13)
[2020-09-10] MEDS: SALMET XINAFT/FLUTIC PROPIN 250 MCG/50 MCG INH CAP 1 PUFF INHALATION ×2 (09:22→20:35)
[2020-09-10] MEDS: ACETAMINOPHEN 325 MG TABLET 650 MG PO ×2 (09:26→09:30)
--- NOTE | 2020-09-10 10:33 | HOMEO2EVAL ---
Home Oxygen Evaluation RC: Home Oxygen (O2) Evaluation Start: 09/10/20 10:13 Freq: ONCE Status: Active Protocol: RPE Activity Type Activity Date Activity User E-Sign Co-Sign Detail Recorded Client Recorded Date Recorded By Document 09/10/20 10:20 CARMEN [id number] 09/10/20 10:33 SJB Document 09/10/20 10:21 AGUSTINAB [id number] 09/10/20 10:33 SJB 09/10/20 09/10/20 10:20 10:21 Home O2 Evaluation Test Phase Resting Exercise Oxygen Delivery Room Air Room Air Pulse Oximetry (90-100 %) 95 92 Pulse Rate (60-100 beats/min) 110 H 134 H Activity Tolerance Good Rating of Perceived Dyspnea (PD) +1 Mild, +1 Mild, Noticeable to Noticeable to the Participant the Participant but Not to an but Not to an Observer Observer Rate of Perceived Exertion (PE) 11 Fairly light Ambulation Distance (feet) 375 Home Oxygen Evaluation Comments Pt walked approx. 350 ft pushing a wheelchair on room air. Roland. very well, talking through the wholel walk and Sp02s remained between 92-94%. Treatment Charges O2 Evaluation - Inpatient
--- NOTE | 2020-09-10 11:59 | P.PN_ITS ---
Progress Note: A&P Assessment and Plan (1) COPD (chronic obstructive pulmonary disease): Qualifiers: COPD type: COPD with acute exacerbation Qualified Code(s): J44.1 - Chronic obstructive pulmonary disease with (acute) exacerbation Code(s): J44.9 - Chronic obstructive pulmonary disease, unspecified Status: Chronic Assessment and Plan: * Complete oxygen as needed, updraft nebulizer treatment, Solu-Medrol and inhalers * Patient did receive 1 dose of Rocephin * Blood and sputum culture pending * Patient will receive guaifenesin for mucus * CBC BMP in a.m. * Continue azithromycin (2) History of embolism: Code(s): Z86.718 - Personal history of other venous thrombosis and embolism Status: Acute Assessment and Plan: * Multiple DVTs and PEs * History of PE in the right upper lobe * History of DVT in right upper extremity * Completed treatment of Xarelto (3) Hypoxia: Code(s): R09.02 - Hypoxemia Status: Resolved Assessment and Plan: * Secondary to COPD exacerbation * Referred to COPD (4) Adenocarcinoma, lung: Qualifiers: Laterality: right Qualified Code(s): C34.91 - Malignant neoplasm of unspecified part of right bronchus or lung Code(s): C34.90 - Malignant neoplasm of unspecified part of unspecified bronchus or lung Status: Chronic Assessment and Plan: * History of non-small cell lung carcinoma right upper lobe in 2019 in remission * CT indicates right upper lobe linear nodular opacities, combination of fibrosis and treated lung cancer. Stable compared to last month, but increased in size compared to 03/05 * Last PET scan on 07/22/2020 by radiologist . According to radiologist no clear evidence of progressive recurrence of lung cancer. 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 Rose giant tire repairer oncologist (5) Hypertension: Qualifiers: Hypertension type: essential hypertension Qualified Code(s): I10 - Essential (primary) hypertension Code(s): I10 - Essential (primary) hypertension Status: Acute Assessment and Plan: * * Continue hydrochlorothiazide * Vital signs as ordered * Will adjust medication as needed * (6) BPH (benign prostatic hyperplasia): Qualifiers: Lower urinary tract symptom presence: symptoms absent Qualified Code(s): N40.0 - Benign prostatic hyperplasia without lower urinary tract symptoms Code(s): N40.0 - Benign prostatic hyperplasia without lower urinary tract symptoms Status: Acute Assessment and Plan: * Patient currently not on any medication (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 (8) Chronic pain syndrome: Code(s): G89.4 - Chronic pain syndrome Status: Chronic Assessment and Plan: * Continue home medication * Secondary to spinal fusion back in 2009 * Follow-up pain management Dr. Shane (9) Elevated lactic acid level: Code(s): R79.89 - Other specified abnormal findings of blood chemistry Status: Acute Assessment and Plan: * Lactic acid elevated on admission 2.1,-->1.2 * Started IV fluids (10) Peripheral neuropathy: Code(s): G62.9 - Polyneuropathy, unspecified Status: Acute Assessment and Plan: Continue lyrica Review of Systems Review of Systems:
--- NOTE | 2020-09-10 11:59 | WPDPN ---
Progress Note: A&P Assessment and Plan (1) COPD (chronic obstructive pulmonary disease): Qualifiers: COPD type: COPD with acute exacerbation Qualified Code(s): J44.1 - Chronic obstructive pulmonary disease with (acute) exacerbation Code(s): J44.9 - Chronic obstructive pulmonary disease, unspecified Status: Chronic Assessment and Plan: Complete oxygen as needed, updraft nebulizer treatment, Solu-Medrol and inhalers Patient did receive 1 dose of Rocephin Blood and sputum culture pending Patient will receive guaifenesin for mucus CBC BMP in a.m. Continue azithromycin (2) History of embolism: Code(s): Z86.718 - Personal history of other venous thrombosis and embolism Status: Acute Assessment and Plan: Multiple DVTs and PEs History of PE in the right upper lobe History of DVT in right upper extremity Completed treatment of Xarelto (3) Hypoxia: Code(s): R09.02 - Hypoxemia Status: Resolved Assessment and Plan: Secondary to COPD exacerbation Referred to COPD (4) Adenocarcinoma, lung: Qualifiers: Laterality: right Qualified Code(s): C34.91 - Malignant neoplasm of unspecified part of right bronchus or lung Code(s): C34.90 - Malignant neoplasm of unspecified part of unspecified bronchus or lung Status: Chronic Assessment and Plan: History of non-small cell lung carcinoma right upper lobe in [address] indicates right upper lobe linear nodular opacities, combination of fibrosis and treated lung cancer. Stable compared to last month, but increased in size compared to 03/05 Last PET scan on 07/22/2020 by radiologist . According to radiologist no clear evidence of progressive recurrence of lung cancer. 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 Rose fish packer oncologist (5) Hypertension: Qualifiers: Hypertension type: essential hypertension Qualified Code(s): I10 - Essential (primary) hypertension Code(s): I10 - Essential (primary) hypertension Status: Acute Assessment and Plan: Continue hydrochlorothiazide Vital signs as ordered Will adjust medication as needed (6) BPH (benign prostatic hyperplasia): Qualifiers: Lower urinary tract symptom presence: symptoms absent Qualified Code(s): N40.0 - Benign prostatic hyperplasia without lower urinary tract symptoms Code(s): N40.0 - Benign prostatic hyperplasia without lower urinary tract symptoms Status: Acute Assessment and Plan: Patient currently not on any medication (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 (8) Chronic pain syndrome: Code(s): G89.4 - Chronic pain syndrome Status: Chronic Assessment and Plan: Continue home medication Secondary to spinal fusion back in 2009 Follow-up pain management Dr. Shane (9) Elevated lactic acid level: Code(s): R79.89 - Other specified abnormal findings of blood chemistry Status: Acute Assessment and Plan: Lactic acid elevated on admission 2.1,-->1.2 Started IV fluids (10) Peripheral neuropathy: Code(s): G62.9 - Polyneuropathy, unspecified Status: Acute Assessment and Plan: Continue lyrica Review of Systems Review of Systems: Narrative: A 14 organ system Review of Systems was performed and pertinent positives included in the HPI, otherwise remaining ROS is negative. Exam Narrative: Exam Narrative: GENERAL: This is a well-nourished, well-developed patient, in no apparent distress. HEAD: normocephalic, atraumatic. EYES: PERRL. Sclera clear/white. Vision is grossly intact. EARS: External ears normal, auditory canals clear and without drainage, TMs normal without
[2020-09-10] MEDS: ENOXAPARIN 30 MG/0.3 ML SYRINGE SUB-Q (16:28)
--- NOTE | 2020-09-10 20:07 | PC.NURSE ---
pt reports being up to restroom and has been walking around room, c/o sob when walking but recovers quickly once seated, iv running, requests night time meds at 2030
[2020-09-10] MEDS: DULoxetine HCL 30 MG CAPSULE.DR PO (20:39)
[2020-09-10] MEDS: traZODone HCL 50 MG TABLET PO (22:59)
--- NOTE | 2020-09-10 23:00 | PC.NURSE ---
pt c/o insomnia, has trouble sleeping at home, finished with mirna tx, no feelings of sob at this time, pt is still on room air, call light in reach
[2020-09-11] VITALS: BP 126/59; PULSE 90; RESP 20; TEMP 37.6; O2SAT 92
--- NOTE | 2020-09-11 00:26 | PC.NURSE ---
Pt resting quietly in bed and watching TV. Pt denies c/o shortness of breath except when he is up and moving around. Pt doesnt voice any other concerns at this time.
--- NOTE | 2020-09-11 02:06 | PC.NURSE ---
Pt asleep and no signs of shortness of breath noted.
[2020-09-11] MEDS: SODIUM CHLORIDE 0.9% IV 1,000 ML 100 ML IV CONT (02:30)
--- NOTE | 2020-09-11 02:32 | PC.NURSE ---
New bag of IV fluid infusing as ordered.
[2020-09-11 04:00] VITALS: BP 132/83; PULSE 92; RESP 20; TEMP 37.3; O2SAT 95
--- NOTE | 2020-09-11 04:04 | PC.NURSE ---
Pt asleep and no signs of respiratory distress noted.
[2020-09-11 05:30] LABS: Hematocrit 36.2 % (40.0-54.0); Hemoglobin 11.5 g/dL (14.0-18.0); Mean Corpuscular HGB Conc 31.8 g/dL (32.0-36.0); Mean Corpuscular Hemoglobin 27.7 pg (27.0-31.0); Mean Corpuscular Volume 87.2 fL (78.0-102.0); Mean Platelet Volume 10.7 fl (8.7-11.0); Platelet Count Result 248 K/mm3 (150-420); Red Blood Count 4.15 M/mm3 (4.70-6.10); Red Cell Distribution Width 16.7 % (11.6-14.4); White Blood Count 14.1 K/mm3 (4.8-10.8)
[2020-09-11 05:48] LABS: Alanine Aminotransferase 23 U/L (16-63); Albumin Level 2.9 g/dL (3.4-5.0); Alkaline Phosphatase 68 U/L (46-116); Anion Gap 9 mmol/L (8-16); Aspartate Amino Transferase 11 U/L (15-37); Bilirubin,Total 0.3 mg/dL (0.00-1.00); Blood Urea Nitrogen 13 mg/dL (7-18); Calcium 8.4 mg/dL (8.5-10.1); Carbon Dioxide 26 mmol/L (21-32); Chloride 108 mmol/L (98-108); Estimated CRCL calculation 81 ml/min; Estimated Glomerular Filt Rate > 60; Glucose 137 mg/dL (70-99); Magnesium 2.2 mg/dL (1.8-2.4); Osmolality Calculated 298 mOsm/kg (285-295); Potassium 3.9 mmol/L (3.5-5.1); Sodium 143 mmol/L (136-145)
[2020-09-11] MEDS: LEVALBUTEROL NEB 1.25 MG/3 ML INHALATION (06:33)
[2020-09-11] MEDS: methylPREDNISolone SOD SUCC 125 MG VIAL 80 MG IV PUSH (06:35)
--- NOTE | 2020-09-11 07:16 | PC.NURSE ---
Pt given xopenex 1.25 mg breathing treatment which he tolerated well. Pt also given methylprednisolone 80 mg IVP as ordered.
[2020-09-11 07:25] VITALS: BP 150/82; PULSE 99; RESP 18; TEMP 37.4; O2SAT 93
[2020-09-11] MEDS: SALMET XINAFT/FLUTIC PROPIN 250 MCG/50 MCG INH CAP 1 PUFF INHALATION (08:49)
[2020-09-11] MEDS: traMADol HCL (*CRX) 25 MG TABLET PO (08:49)
[2020-09-11] MEDS: PREGABALIN (*CRX) 50 MG CAPSULE 200 MG PO (08:50)
[2020-09-11] MEDS: hydroCHLOROthiazide 12.5 MG CAPSULE PO (08:50)
[2020-09-11] MEDS: oxyCODONE HCL (*CRX) 10 MG TAB SR 12HR 30 MG PO (08:50)
[2020-09-11] MEDS: AZITHROMYCIN 250 MG TABLET 500 MG PO (08:50)
[2020-09-11] MEDS: ZOLPIDEM TARTRATE (*CRX) 5 MG TABLET PO (08:51)
[2020-09-11] MEDS: guaiFENesin 12 HR 600 MG TABCR 1200 MG PO (08:51)
[2020-09-11] MEDS: DULoxetine HCL 30 MG CAPSULE.DR 60 MG PO (08:51)
[2020-09-11] MEDS: PREGABALIN (*CRX) 25 MG CAPSULE PO (08:51)
--- NOTE | 2020-09-11 09:28 | P.DS_ITS ---
DS: Admitting Diagnosis Admitting Diagnosis Admitting Diagnosis: COPD exacerbation DS: Discharge Diagnosis Discharge Diagnosis (1) COPD (chronic obstructive pulmonary disease): Qualifiers: COPD type: COPD with acute exacerbation Qualified Code(s): J44.1 - Chronic obstructive pulmonary disease with (acute) exacerbation Code(s): J44.9 - Chronic obstructive pulmonary disease, unspecified Status: Chronic Assessment and Plan: * Complete oxygen as needed, updraft nebulizer treatment, Solu-Medrol and inhalers * Patient did receive 1 dose of Rocephin * Blood culture pending * Patient will receive guaifenesin for mucus * While inpatient patient received gentamicin changed to Cipro due to gram- positive cocci in clusters * Patient sputum with the growth of gram-positive cocci in clusters patient to discharge with Cipro (2) History of embolism: Code(s): Z86.718 - Personal history of other venous thrombosis and embolism Status: Acute Assessment and Plan: * Multiple DVTs and PEs * History of PE in the right upper lobe * History of DVT in right upper extremity * Completed treatment of Xarelto (3) Hypoxia: Code(s): R09.02 - Hypoxemia Status: Resolved Assessment and Plan: * Resolved * Secondary to COPD exacerbation * Referred to COPD (4) Adenocarcinoma, lung: Qualifiers: Laterality: right Qualified Code(s): C34.91 - Malignant neoplasm of unspecified part of right bronchus or lung Code(s): C34.90 - Malignant neoplasm of unspecified part of unspecified bronchus or lung Status: Chronic Assessment and Plan: * History of non-small cell lung carcinoma right upper lobe in 2019 in remission * CT indicates right upper lobe linear nodular opacities, combination of fibrosis and treated lung cancer. Stable compared to last month, but increased in size compared to 03/05 * Last PET scan on 07/22/2020 by radiologist . According to radiologist no clear evidence of progressive recurrence of lung cancer. 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 Rose grain picker oncologist (5) Hypertension: Qualifiers: Hypertension type: essential hypertension Qualified Code(s): I10 - Essential (primary) hypertension Code(s): I10 - Essential (primary) hypertension Status: Acute Assessment and Plan: * Stable * Continue hydrochlorothiazide * Vital signs as ordered * Will adjust medication as needed * (6) BPH (benign prostatic hyperplasia): Qualifiers: Lower urinary tract symptom presence: symptoms absent Qualified Code(s): N40.0 - Benign prostatic hyperplasia without lower urinary tract symptoms Code(s): N40.0 - Benign prostatic hyperplasia without lower urinary tract symptoms Status: Acute Assessment and Plan: * Patient currently not on any medication (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 (8) Chronic pain syndrome: Code(s): G89.4 - Chronic pain syndrome Status: Chronic Assessment and Plan: * Continue home medication * Secondary to spinal fusion back in 2009 * Follow-up pain management Dr. Shane (9) Elevated lactic acid level: Code(s): R79.89 - Other specified abnormal findings of blood chemistry Status: Acute Assessment and Plan: * Lactic acid elevate
--- NOTE | 2020-09-11 09:28 | PM.DS ---
DS: Admitting Diagnosis Admitting Diagnosis Admitting Diagnosis: COPD exacerbation DS: Discharge Diagnosis Discharge Diagnosis (1) COPD (chronic obstructive pulmonary disease): Qualifiers: COPD type: COPD with acute exacerbation Qualified Code(s): J44.1 - Chronic obstructive pulmonary disease with (acute) exacerbation Code(s): J44.9 - Chronic obstructive pulmonary disease, unspecified Status: Chronic Assessment and Plan: Complete oxygen as needed, updraft nebulizer treatment, Solu-Medrol and inhalers Patient did receive 1 dose of Rocephin Blood culture pending Patient will receive guaifenesin for mucus While inpatient patient received gentamicin changed to Cipro due to gram-positive cocci in clusters Patient sputum with the growth of gram-positive cocci in clusters patient to discharge with Cipro (2) History of embolism: Code(s): Z86.718 - Personal history of other venous thrombosis and embolism Status: Acute Assessment and Plan: Multiple DVTs and PEs History of PE in the right upper lobe History of DVT in right upper extremity Completed treatment of Xarelto (3) Hypoxia: Code(s): R09.02 - Hypoxemia Status: Resolved Assessment and Plan: Resolved Secondary to COPD exacerbation Referred to COPD (4) Adenocarcinoma, lung: Qualifiers: Laterality: right Qualified Code(s): C34.91 - Malignant neoplasm of unspecified part of right bronchus or lung Code(s): C34.90 - Malignant neoplasm of unspecified part of unspecified bronchus or lung Status: Chronic Assessment and Plan: History of non-small cell lung carcinoma right upper lobe in [address] indicates right upper lobe linear nodular opacities, combination of fibrosis and treated lung cancer. Stable compared to last month, but increased in size compared to 03/05 Last PET scan on 07/22/2020 by radiologist . According to radiologist no clear evidence of progressive recurrence of lung cancer. 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 Rose bulldozer engineer oncologist (5) Hypertension: Qualifiers: Hypertension type: essential hypertension Qualified Code(s): I10 - Essential (primary) hypertension Code(s): I10 - Essential (primary) hypertension Status: Acute Assessment and Plan: Stable Continue hydrochlorothiazide Vital signs as ordered Will adjust medication as needed (6) BPH (benign prostatic hyperplasia): Qualifiers: Lower urinary tract symptom presence: symptoms absent Qualified Code(s): N40.0 - Benign prostatic hyperplasia without lower urinary tract symptoms Code(s): N40.0 - Benign prostatic hyperplasia without lower urinary tract symptoms Status: Acute Assessment and Plan: Patient currently not on any medication (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 (8) Chronic pain syndrome: Code(s): G89.4 - Chronic pain syndrome Status: Chronic Assessment and Plan: Continue home medication Secondary to spinal fusion back in 2010 Follow-up pain management Dr. Shane (9) Elevated lactic acid level: Code(s): R79.89 - Other specified abnormal findings of blood chemistry Status: Acute Assessment and Plan: Lactic acid elevated on admission 2.1,-->1.2 Started IV fluids (10) Peripheral neuropathy: Code(s): G62.9 - Polyneuropathy, unspecified Status: Acute Assessment and Plan: Continue lyrica DS: Summary Hospital Course Reason for hospitalization: COPD exacerbation Hospital Course: This is a 60-year-old white male who presented to our ED with complaints of shortness of breath. Patient has a past medical history of lee ann
--- NOTE | 2020-09-11 12:40 | PC.NURSE ---
Patient being discharged home. IV site removed, tip intact. Dressing applied to site. All discharge instructions and education reviewed with patient. Patient states understanding. All belongings gathered together and sent home with patient. Patient accompanied to front door via wheelchair by this nurse, left via private vehicle with daughter. Denies any questions at discharge.
--- NOTE | 2020-09-13 14:13 | PC.NURSE ---
Pt states he received and understood his discharge instructions. Pt also states it was all good .
== END 2020-09-11 12:40 | disposition home or self-care (01) ==
LOC: CHSED 09:18 → CHS2ND 11:41
PROVIDERS: Nurse Practitioner; Admitting Provider Emergency Medicine; Emergency Provider Emergency Medicine; PCP Family Medicine; Visit Provider Emergency Medicine
DX: J44.1 Chronic obstructive pulmonary disease with (acute) exacerbation (principal); R09.02 Hypoxemia; C34.11 Malignant neoplasm of upper lobe, right bronchus or lung; I48.20 Chronic atrial fibrillation, unspecified; I10 Essential (primary) hypertension; D15.1 Benign neoplasm of heart; N40.0 Benign prostatic hyperplasia without lower urinary tract symptoms; M54.5 Low back pain; G89.4 Chronic pain syndrome; G62.9 Polyneuropathy, unspecified; F41.9 Anxiety disorder, unspecified; Z20.822 Contact with and (suspected) exposure to COVID-19; Z86.711 Personal history of pulmonary embolism; Z86.718 Personal history of other venous thrombosis and embolism; Z87.891 Personal history of nicotine dependence; Z79.891 Long term (current) use of opiate analgesic; Z90.49 Acquired absence of other specified parts of digestive tract
CPT/HCPCS: 36415; 36600; 71275; 80053; 81001; 82805; 83605; 83735; 83880; 84484; 85025; 85027; 85380; 85610; 85730; 87040; 87070; 87205; 87426; 87804; 93005; 94618; 94640; 96361; 96365; 96372; 96374; 96375; 96376; 99285; A9270; C9803; G0378; G0379; J0696; J1650; J2930; J7030; Q9967

== ENCOUNTER 2020-10-25 14:42 | Outpatient (CLI) | payer MEDICARE, MEDICAID, SELFPAY ==
[2020-10-25 15:00] LABS: Basophils Percent Auto 0.6 % (0.2-1.2); Eosinophils Absolute Auto 0.6 K/mm3 (0-0.3); Eosinophils Percent Auto 8.4 % (0-4.4); Hematocrit 37.9 % (42.0-52.0); Hemoglobin 12.1 g/dL (14.0-18.0); Immature Granulocyte Absolute 0.02 K/mm3 (0.00-0.031); Immature Granulocyte Percent A 0.3 % (0-0.5); Lymphocytes Absolute Auto 2.17 K/mm3 (0.9-3.2); Lymphocytes Percent Auto 31.9 % (18.3-44.2); Mean Corpuscular HGB Conc 31.9 g/dl (32-36); Mean Corpuscular Hemoglobin 28.3 pg (26-34); Mean Corpuscular Volume 88.8 fl (80-100); Mean Platelet Volume 10.2 fl (7.4-10.4); Monocytes Absolute Auto 0.9 K/mm3 (0.1-0.6); Monocytes Percent Auto 12.6 % (2.6-8.5); Neutrophils Absolute Auto 3.1 K/mm3 (1.3-6.7); Neutrophils Percent Auto 46.2 % (45.5-73.1); Platelet Count Result 206 k/mm3 (150-375); Red Blood Count 4.27 M/mm3 (4.6-6.20); Red Cell Distribution Width 15.3 % (11.5-14.5); White Blood Count 6.8 K/mm3 (4.5-10.0)
[2020-10-25 15:03] LABS: Blood Urea Nitrogen 9 mg/dL (8-26); Carbon Dioxide 28 mmol/L (22-30); Chloride 100 mmol/L (98-109); Estimated Glomerular Filt Rate > 60; Glucose 122 mg/dL (70-105); Potassium 3.6 mmol/L (3.5-4.9); Sodium 140 mmol/L (138-146)
[2020-10-25 17:01] LABS: Alanine Aminotransferase 26 U/L (4-50); Albumin Level 3.4 g/dL (3.5-5.1); Alkaline Phosphatase 77 U/L (38-126); Anion Gap 4 mmol/L (8-16); Aspartate Amino Transferase 25 U/L (17-59); Bilirubin,Total 0.7 mg/dL (0.2-1.3); Blood Urea Nitrogen 10 mg/dL (9-20); Calcium 8.7 mg/dL (8.4-10.2); Carbon Dioxide 30 mmol/L (22-30); Chloride 104 mmol/L (98-107); Estimated Glomerular Filt Rate > 60; Glucose 120 mg/dL (75-110); Potassium 3.8 mmol/L (3.4-5.0); Sodium 138 mmol/L (137-145)
== END 2020-10-25 14:43 | disposition home or self-care (01) ==
LOC: ANHLAB 14:47
PROVIDERS: PCP Family Medicine; Visit Provider Internal Medicine Hematology & Oncology
DX: C34.91 Malignant neoplasm of unspecified part of right bronchus or lung (principal)
CPT/HCPCS: 36415; 80048; 80053; 85025

== ENCOUNTER 2020-11-25 13:46 | Outpatient (CLI) | payer MEDICARE, MEDICAID, SELFPAY ==
--- NOTE | ~2020-11-25 | CT_ITS ---
EXAMINATION: CT diagnostic chest w con DATE: 11/25/2020 14:28 INDICATION: LUNG CA TECHNIQUE: Computed tomography (CT) of the chest was performed without intravenous contrast. Addition al 3D reconstructions utilizing coronal maximum intensity projection (MIP) were performed. Automated exposure control and iterative reconstruction technique were employed. The dose-length product was 25 0.93 mGy-cm. COMPARISON: 09/09/2020 and 08/09/2020 FINDINGS: Mild emphysema. In the right upper lobe are again seen linear bands of atelectasis/scarring likely re lated to radiation fibrosis at the site of a prior reported non-small cell lung cancer. 2 horizontal bands located cephalad and caudal to an approximately 1.9 x 1.1 cm soft tissue nodule which appears u nchanged since 07/14/2020. The more cephalad band of atelectasis/scarring appears unchanged. There has been some interval increase in a more caudal curvilinear band of likely atelectasis/scarring. No int erval change in a flat triangular likely intrafissural lymph node at the minor fissure which measures 7 x 2 mm on the sagittal images. No new or enlarging pulmonary nodules, pneumonia, pulmonary edema o r pleural effusion. Heart size is normal. No significant interval change in a 3.0 x 2.3 cm left atria l mass likely representing a myxoma. No pericardial effusion. No pathologically enlarged thoracic lym phadenopathy. Diffuse hepatic steatosis. Cholecystectomy clips at the gallbladder fossa. Mild thoraci c spondylosis. No suspicious lytic or blastic bone lesions. IMPRESSION: 1. Combination linear/bandlike and nodular opacities in the right upper lobe consistent with treated lung cancer and radiation fibrosis. There has been increase in a more caudal curvilinear band of like ly fibrosis with no interval change in a more cephalad linear band of fibrosis and an intervening 1.9 x 1.1 cm more nodular density. 2. Unchanged 3.0 x 2.3 cm left atrial mass consistent with myxoma. 3. Diffuse hepatic steatosis. Reviewed, dictated and finalized at location A. IMPRESSION: 1. Combination linear/bandlike and nodular opacities in the right upper lobe co nsistent with treated lung cancer and radiation fibrosis. There has been increa se in a more caudal curvilinear band of likely fibrosis with no interval change in a more cephalad linear band of fibrosis and an intervening 1.9 x 1.1 cm mor e nodular density. 2. Unchanged 3.0 x 2.3 cm left atrial mass consistent with myxoma. 3. Diffuse hepatic steatosis.
== END 2020-11-25 13:47 | disposition home or self-care (01) ==
PROVIDERS: PCP Family Medicine; Visit Provider Internal Medicine Hematology & Oncology
DX: C34.91 Malignant neoplasm of unspecified part of right bronchus or lung (principal); K76.0 Fatty (change of) liver, not elsewhere classified
CPT/HCPCS: 71260; Q9967

== ENCOUNTER 2021-03-15 15:44 | Outpatient (CLI) | payer MEDICARE, MEDICAID, SELFPAY ==
[2021-03-15 16:04] LABS: Basophils Absolute Auto 0.1 K/mm3 (0.0-0.1); Eosinophils Absolute Auto 0.2 K/mm3 (0-0.3); Eosinophils Percent Auto 3.5 % (0-4.4); Hematocrit 41.3 % (42.0-52.0); Hemoglobin 12.9 g/dL (14.0-18.0); Immature Granulocyte Absolute 0.01 K/mm3 (0.00-0.031); Immature Granulocyte Percent A 0.2 % (0-0.5); Lymphocytes Absolute Auto 2.31 K/mm3 (0.9-3.2); Lymphocytes Percent Auto 45.4 % (18.3-44.2); Mean Corpuscular HGB Conc 31.2 g/dl (32-36); Mean Corpuscular Hemoglobin 25.7 pg (26-34); Mean Corpuscular Volume 82.4 fl (80-100); Mean Platelet Volume 9.8 fl (7.4-10.4); Monocytes Absolute Auto 0.3 K/mm3 (0.1-0.6); Monocytes Percent Auto 6.5 % (2.6-8.5); Neutrophils Absolute Auto 2.2 K/mm3 (1.3-6.7); Neutrophils Percent Auto 43.4 % (45.5-73.1); Platelet Count Result 246 k/mm3 (150-375); Red Blood Count 5.01 M/mm3 (4.6-6.20); Red Cell Distribution Width 14.8 % (11.5-14.5); White Blood Count 5.1 K/mm3 (4.5-10.0)
[2021-03-15 16:09] LABS: Blood Urea Nitrogen 9 mg/dL (8-26); Carbon Dioxide 25 mmol/L (22-30); Chloride 102 mmol/L (98-109); Estimated Glomerular Filt Rate > 60; Glucose 160 mg/dL (70-105); Potassium 3.5 mmol/L (3.5-4.9); Sodium 144 mmol/L (138-146)
[2021-03-15 17:08] LABS: Iron 57 ug/dL (49-181)
[2021-03-15 17:11] LABS: Anion Gap 10 mmol/L (8-16); Blood Urea Nitrogen 11 mg/dL (9-20); Carbon Dioxide 27 mmol/L (22-30); Chloride 104 mmol/L (98-107); Estimated Glomerular Filt Rate > 60; Glucose 158 mg/dL (65-110); Potassium 3.7 mmol/L (3.4-5.0); Sodium 141 mmol/L (137-145)
[2021-03-15 17:17] LABS: Percent Iron Saturation 14 % (20-50)
[2021-03-15 18:18] LABS: Folic Acid 5.9 ng/mL (2.76->20)
== END 2021-03-15 15:45 | disposition home or self-care (01) ==
LOC: ANHLAB 15:47
PROVIDERS: PCP Family Medicine; Visit Provider Internal Medicine Hematology & Oncology
DX: D64.9 Anemia, unspecified (principal)
CPT/HCPCS: 36415; 80048; 82607; 82728; 82746; 83540; 83550; 85025

== ENCOUNTER 2021-03-17 13:51 | Outpatient (CLI) | payer MEDICARE, MEDICAID, SELFPAY ==
--- NOTE | ~2021-03-17 | CT_ITS ---
EXAMINATION: CT diagnostic chest w con DATE: 03/17/2021 14:28 INDICATION: Non-small cell cancer of the right lung TECHNIQUE: Transaxial computed tomographic images of the chest were obtained after the administration of 75 cc of Omnipaque 350 intravenous contrast. The dose-length product (DLP) was 11/25/2020 mGy-cm. Iterative reconstruction was used. COMPARISON: 11/25/2020 FINDINGS: There is a stable area of linear scarring/fibrosis related to treatment for the patient's r ight lung cancer. No suspicious interval change is identified. There are no new pulmonary nodules. No pleural effusion or pneumothorax is identified. The lungs are free of acute airspace opacities. Ther e is a chronic unchanged mass of the left atrium, consistent with a myxoma. The heart size is normal. There are no pathologically enlarged thoracic lymph nodes. There is mild thoracic spondylosis. The g allbladder is surgically absent. IMPRESSION: 1. Stable changes related to treatment for right lung cancer without suspicious interval change. Reviewed, dictated and finalized at location A.
== END 2021-03-17 13:52 | disposition home or self-care (01) ==
LOC: ANHIMG 13:57
PROVIDERS: PCP Family Medicine; Visit Provider Internal Medicine Hematology & Oncology
DX: C34.91 Malignant neoplasm of unspecified part of right bronchus or lung (principal)
CPT/HCPCS: 71260; Q9967

== ENCOUNTER 2021-05-06 08:18 | Outpatient (CLI) | payer MEDICARE, MEDICAID, SELFPAY ==
--- NOTE | ~2021-05-06 | XR_ITS ---
EXAMINATION: XR skull <4V DATE: 05/06/2021 11:45 INDICATION: Lung cancer. Abnormal bone scan. TECHNIQUE: 4 views of the skull were obtained. COMPARISON: Bone scan 05/06/2021, head CT 02/11/2017 FINDINGS: Bone alignment is normal. No fracture. There is osteopenia in the posterior skull. IMPRESSION: 1. Osteopenia in the posterior skull correlating with increased activity on bone scan. The differenti al diagnosis includes Paget disease and metastatic disease. Head CT without and with contrast is lang mmended. Reviewed, dictated and finalized at location A. AL TESTER IMPRESSION: 1. Osteopenia in the posterior skull correlating with increased activity on bon e scan. The differential diagnosis includes Paget disease and metastatic diseas e. Head CT without and with contrast is recommended.
--- NOTE | ~2021-05-06 | NM_ITS ---
EXAMINATION: NM bone scan whole body DATE: 05/06/2021 11:31 INDICATION: Non-small cell cancer of right lung. TECHNIQUE: 27.2 mCi Tc-99m HDP was administered intravenously. Delayed whole-body scintigrams were o btained. COMPARISON: Chest CT 03/17/2021, skull radiographs 05/06/2021, PET/CT 07/22/2020, head CT 02/11/2017 FINDINGS: There is joint-centered increased activity in the knees and right foot without radiographic comparison, likely osteoporosis. There are foci of increased activity in the spine correlating with spondylosis by CT. There is increased activity in the right parietal bone. IMPRESSION: 1. Increased activity in the right parietal bone correlating with osteopenia on radiographs suspiciou s for Paget disease versus metastatic disease. Head CT without and with contrast is recommended. Reviewed, dictated and finalized at location A. SPRAYER IMPRESSION: 1. Increased activity in the right parietal bone correlating with osteopenia on radiographs suspicious for Paget disease versus metastatic disease. Head CT wi thout and with contrast is recommended.
== END 2021-05-06 08:19 | disposition home or self-care (01) ==
LOC: ANHIMG 08:21
PROVIDERS: PCP Family Medicine; Visit Provider Internal Medicine Hematology & Oncology
DX: C34.91 Malignant neoplasm of unspecified part of right bronchus or lung (principal); M89.9 Disorder of bone, unspecified; M85.88 Other specified disorders of bone density and structure, other site
CPT/HCPCS: 70250; 78306; A9561

== ENCOUNTER 2021-05-13 12:16 | Outpatient (CLI) | payer MEDICARE, MEDICAID, SELFPAY ==
--- NOTE | ~2021-05-13 | CT_ITS ---
EXAMINATION: CT brain wo/w con DATE: 05/13/2021 12:54 INDICATION: Non-small cell cell cancer of the right lung. TECHNIQUE: Computed tomography (CT) of the head was performed without and with 100 cc Omnipaque 350 i ntravenous contrast. The dose-length product was 1210.67 mGy-cm. Automated exposure control and itera tive reconstruction technique were employed. COMPARISON: CT dated 02/11/2017 FINDINGS: Normal brain parenchymal volume for age. There are scattered mild periventricular and subco rtical white matter changes, most likely related to small vessel ischemic disease (microangiopathy). No ventriculomegaly or midline shift. Basilar cisterns are patent. Midline sagittal images demonstrat e a normal corpus callosum and craniovertebral junction. No abnormally enhancing masses. There is a m ucous retention cyst of the right sphenoid sinus. Mastoids are pneumatized. No depressed skull fractu res. No lytic or blastic lesions. No abnormal contrast enhancement. IMPRESSION: 1. No evidence for metastatic disease. No acute intracranial abnormality. Reviewed, dictated and finalized at location A. DEVELOPER
== END 2021-05-13 12:17 | disposition home or self-care (01) ==
LOC: ANHIMG 12:20
PROVIDERS: PCP Family Medicine; Visit Provider Internal Medicine Hematology & Oncology
DX: C34.91 Malignant neoplasm of unspecified part of right bronchus or lung (principal)
CPT/HCPCS: 70470; Q9967

== ENCOUNTER 2021-07-07 06:35 | Outpatient (CLI) | payer MEDICARE, MEDICAID, SELFPAY ==
--- NOTE | ~2021-07-07 | CT_ITS ---
EXAMINATION: CT diagnostic chest w con EXAM DATE: 07/07/2021 07:23 INDICATION: NSCLC of right lung. TECHNIQUE: Spiral CT of the chest following intravenous injection of 75 mL Omnipaque 350. Axial, cor onal and sagittal images of the chest were reviewed. Coronal maximum intensity pixel images of chest reviewed. The dose-length product (DLP) for this examination was 262.60 mGy-cm. The exposure was t ailored according to patient size (auto mA exposure control), and iterative reconstruction (ASIR) was used as additional dose reduction technique. Comparison is made to prior examination from 03/17/2021. FINDINGS: Difficult to measure the right suprahilar opacity radiating toward the periphery given its shape, but it appears to have slightly more volume compared to prior study. There is mild emphysema. There are no pleural or pericardial effusions. Tracheobronchial tree is patent. There is no medi astinal, hilar or axillary lymphadenopathy. There is no pneumothorax. Heart normal in size. Tong otomy wires. There is hepatic steatosis. There is mild thoracic spondylosis without osteoblastic or osteolytic lesions identified. This potentially could be reparative response for subacute Schmorl's n ode but early osteoblastic disease not excludable. IMPRESSION: 1. Suspect slight interval increase in volume of right suprahilar treated malignancy. 2. Interval development of T12 mildly sclerotic region, subacute Schmorl's node versus early osteobl astic disease. 3. Mild emphysema. 4. Hepatic steatosis. Reviewed, dictated and finalized at location B. INA REFINERY OPERATOR IMPRESSION: 1. Suspect slight interval increase in volume of right suprahilar treated erna gnancy. 2. Interval development of T12 mildly sclerotic region, subacute Schmorl's nod e versus early osteoblastic disease. 3. Mild emphysema. 4. Hepatic steatosis.
== END 2021-07-07 06:36 | disposition home or self-care (01) ==
PROVIDERS: PCP Family Medicine; Visit Provider Internal Medicine Hematology & Oncology
DX: C34.91 Malignant neoplasm of unspecified part of right bronchus or lung (principal); J43.9 Emphysema, unspecified; M51.44 Schmorl's nodes, thoracic region; K76.0 Fatty (change of) liver, not elsewhere classified
CPT/HCPCS: 71260; Q9967

== ENCOUNTER 2021-07-13 14:06 | Outpatient (CLI) | payer MEDICARE, MEDICAID, SELFPAY ==
[2021-07-13 14:17] LABS: Hematocrit 40.4 % (42.0-52.0); Hemoglobin 11.5 g/dL (14.0-18.0); Mean Corpuscular HGB Conc 28.5 g/dl (32-36); Mean Corpuscular Hemoglobin 24.6 pg (26-34); Mean Corpuscular Volume 86.5 fl (80-100); Mean Platelet Volume 10.5 fl (7.4-10.4); Platelet Count Result 223 k/mm3 (150-375); Red Blood Count 4.67 M/mm3 (4.6-6.20); Red Cell Distribution Width 15.6 % (11.5-14.5); White Blood Count 5.5 K/mm3 (4.5-10.0)
[2021-07-13 14:21] LABS: Blood Urea Nitrogen 15 mg/dL (8-26); Carbon Dioxide 29 mmol/L (22-30); Chloride 103 mmol/L (98-109); Estimated Glomerular Filt Rate > 60; Glucose 129 mg/dL (70-105); Potassium 4.3 mmol/L (3.5-4.9); Sodium 142 mmol/L (138-146)
[2021-07-13 16:11] LABS: Alanine Aminotransferase 23 U/L (4-50); Albumin Level 4.2 g/dL (3.5-5.1); Alkaline Phosphatase 105 U/L (38-126); Anion Gap 9 mmol/L (8-16); Aspartate Amino Transferase 25 U/L (17-59); Bilirubin,Total 0.3 mg/dL (0.2-1.3); Blood Urea Nitrogen 15 mg/dL (9-20); Calcium 9.3 mg/dL (8.4-10.2); Carbon Dioxide 28 mmol/L (22-30); Chloride 104 mmol/L (98-107); Estimated Glomerular Filt Rate > 60; Glucose 139 mg/dL (65-110); Potassium 4.5 mmol/L (3.4-5.0); Sodium 141 mmol/L (137-145)
== END 2021-07-13 14:07 | disposition home or self-care (01) ==
LOC: ANHLAB 14:08
PROVIDERS: PCP Family Medicine; Visit Provider Internal Medicine Hematology & Oncology
DX: C34.91 Malignant neoplasm of unspecified part of right bronchus or lung (principal)
CPT/HCPCS: 36415; 80053; 85027

== ENCOUNTER 2021-12-29 04:16 | Observation (INO) | payer MEDICARE, MEDICAID, SELFPAY ==
[2021-12-29] VITALS (39 sets, daily range): BP systolic 95–145; BP diastolic 64–95; PULSE 59–124; RESP 8–22; TEMP 36–37.1; O2SAT 92–98; BMI 27.7
--- NOTE | ~2021-12-29 | XR_ITS ---
EXAMINATION: XR chest 1V portable DATE: 12/30/2021 05:30 INDICATION: Shortness of breath. TECHNIQUE: A single frontal view of the chest was obtained. COMPARISON: Chest 2 views 12/29/2021, chest CT 12/29/2021 FINDINGS: There is a mass in right lung predominantly involving posterior segment right upper lobe. N o pleural effusion or pneumothorax. The heart size is normal. Median sternotomy wires are noted. IMPRESSION: 1. Stable mass in right lung predominantly involving posterior segment right upper lobe, consistent w ith worsened primary bronchogenic carcinoma and/or pneumonia. Reviewed, dictated and finalized at location A. IMPRESSION: 1. Stable mass in right lung predominantly involving posterior segment right up per lobe, consistent with worsened primary bronchogenic carcinoma and/or pneumo erin.
--- NOTE | ~2021-12-29 | NM_ITS ---
INDICATION: EXAMINATION: NM bone scan whole body DATE: 12/30/2021 12:45 INDICATION: Non-small cell cancer right lung. TECHNIQUE: 26.4 mCi Tc-99m HDP was administered intravenously. Delayed whole-body scintigrams were o btained. COMPARISON: Chest CT 12/29/2021, bone scan 05/06/2021, head CT 05/13/21 FINDINGS: There are greater than 10 scattered foci of increased activity in bone including the ribs, spine, pelvis, proximal right femur, proximal left humerus, and right-sided skull, many of which with abnormal CT correlates. There is increased activity in the knees without radiographic comparison, li kay osteoarthritis. Increased activity in the sternum correlates with changes of sternotomy. IMPRESSION: 1. Multifocal osseous metastatic disease with worsening from 05/06/2021. Reviewed, dictated and finalized at location A.
--- NOTE | ~2021-12-29 | CT_ITS ---
EXAMINATION: CTA chest PE protocol DATE: 12/29/2021 07:29 INDICATION: Right-sided chest pain TECHNIQUE: Computed tomography (CT) pulmonary angiogram of the chest was performed with 100 mL Omnipa que-350 intravenous contrast. Additional 3D reconstructions utilizing coronal maximum intensity proje ction (MIP) were performed. Automated exposure control and iterative reconstruction technique were em ployed. The dose-length product was 374.39 mGy-cm. COMPARISON: 07/07/2021 FINDINGS: Good contrast opacification of the pulmonary arteries. There is mild streak artifact from dense contr ast in the superior vena cava and right atrium. Mild scattered respiratory motion artifact which decr eases sensitivity in some of the smaller subsegmental pulmonary arteries the lung bases. No pulmonary embolism. Mild emphysema. There is a new 8.2 x 7.7 cm right upper lobe mass with heterogeneous attenuation/enhancement at the s ite of a prior treated lung cancer and which exerts mass effect upon the course of the adjacent bronc hi and pulmonary vasculature. Filling defect with meniscus sign in the right upper lobe bronchus and obstruction of bronchi in the posterior segment of the right upper lobe. Findings are concerning for progression of recurrent lung cancer with likely bronchial invasion and likely postobstructive pneumo erin. There is some extension of the mass along the right major and minor fissures with with reticular nodular pattern extending to the immediately adjacent right upper and lower lobes suspicious for lym phangitic spread of disease. There are multiple additional small new or enlarging pulmonary nodules including in the left lung, fo r reference a previously 2 mm nodule along the left hemidiaphragm at the posterior sulcus of the left lower lobe has increased to 5-6 mm consistent with additional likely hematogenous spread of metastat ic disease. Small right pleural effusion. Interval increase in size of soft tissue density with irregular margins seen in the anterior mediasti num as well as increase in size and of the right hilar and subcarinal lymphadenopathy also consistent with progression of metastatic disease. Heart size is normal. Median sternotomy wires and mediastina l surgical clips consistent with prior coronary artery bypass grafting. No pericardial effusion. Tho racic aorta is normal in caliber with no dissection. Diffuse hepatic steatosis. Cholecystectomy clips the gallbladder fossa. Multiple new or enlarging sclerotic bone lesions in the ribs and spine, with interval progression of the largest in the T12 vertebral body consistent with aggression of metastati c disease. IMPRESSION: 1. No pulmonary embolism. 2. Enlargement of a now 8.2 x 7.7 cm heterogeneous right upper lobe mass likely combination of recurr ent lung cancer and postobstructive pneumonia with right upper lobe endobronchial lesions suspicious for endobronchial invasion. 3. Reticulonodular pattern in the adjacent right middle and lower lobes enlarging right hilar and med iastinal lymph nodes consistent with lymphangitic spread of disease with additional scattered small e nlarging bilateral pulmonary nodules and enlarging sclerotic bone lesions consistent with additional likely hematogenous spread of disease. Reviewed, dictated and finalized at location B. IMPRESSION: 1. No pulmonary embolism. 2. Enlargement of a now 8.2 x 7.7 cm heterogeneous right upper lobe mass likely combination of recurrent lung cancer and postobstructive pneumonia with right upper lobe endobronchial lesions suspicious for endobronchial invasion. 3. Reticulonodular pattern in the adjacent right middle and lower lobes enlargi ng right hilar and mediastinal lymph nodes consistent with lymphangitic spread of disease with addit
--- NOTE | ~2021-12-29 | XR_ITS ---
EXAMINATION: XR chest 2V DATE: 12/29/2021 06:05 INDICATION: Right chest pain. TECHNIQUE: Frontal and lateral views of the chest were obtained. COMPARISON: Chest 2 views 11/09/2019, chest CT 07/07/2021 FINDINGS: There is a mass in right lung upper lobe. There is a trace right pleural effusion. No pneum othorax. The heart size is normal. Median sternotomy wires are noted. Surgical clips in the right upp er quadrant are likely from cholecystectomy. IMPRESSION: 1. Worsened mass in right lung upper lobe, consistent with worsened primary bronchogenic carcinoma an d/or pneumonia. Reviewed, dictated and finalized at location A. IMPRESSION: 1. Worsened mass in right lung upper lobe, consistent with worsened primary bro nchogenic carcinoma and/or pneumonia.
--- NOTE | 2021-12-29 04:30 | ECG_ITS ---
Measurements Intervals [place] Rate: 117 P: [place]: 0 QRS: 65 QRSD: 78 T: 72 QT: 309 QTc: 431 Interpretive Statements ECTOPIC ATRIAL TACHYCARDIA BORDERLINE ST-T WAVE ABNORMALITY- DIFFUSE LEADS BASELINE ARTIFACT- I, II, III, AVR, AVL, AVF, V1-V6 ABNORMAL ECG Electronically Signed On 12-29-2021 14:35:03 CDT by Charles Zhou D.O.
[2021-12-29 05:28] LABS: Basophils Percent Auto 0.3 % (0.2-1.2); Eosinophils Absolute Auto 0.1 K/mm3 (0-0.3); Eosinophils Percent Auto 1.2 % (0-4.4); Hematocrit 34.9 % (42.0-52.0); Hemoglobin 10.9 g/dL (14.0-18.0); Immature Granulocyte Absolute 0.03 K/mm3 (0.00-0.031); Immature Granulocyte Percent A 0.4 % (0-0.5); Lymphocytes Absolute Auto 1.65 K/mm3 (0.9-3.2); Lymphocytes Percent Auto 21.7 % (18.3-44.2); Mean Corpuscular HGB Conc 31.2 g/dl (32-36); Mean Corpuscular Hemoglobin 25.1 pg (26-34); Mean Corpuscular Volume 80.2 fl (80-100); Mean Platelet Volume 9.8 fl (7.4-10.4); Monocytes Absolute Auto 0.8 K/mm3 (0.1-0.6); Monocytes Percent Auto 9.8 % (2.6-8.5); Neutrophils Absolute Auto 5.1 K/mm3 (1.3-6.7); Neutrophils Percent Auto 66.6 % (45.5-73.1); Platelet Count Result 299 k/mm3 (150-375); Red Blood Count 4.35 M/mm3 (4.6-6.20); Red Cell Distribution Width 14.7 % (11.5-14.5); White Blood Count 7.6 K/mm3 (4.5-10.0)
--- NOTE | 2021-12-29 05:31 | PC.NURSE ---
THis RN tried to call pharmacy for morphine because ER pyxis out .
[2021-12-29 05:39] LABS: Alanine Aminotransferase 21 U/L (6-50); Alkaline Phosphatase 163 U/L (38-126); Anion Gap 5 mmol/L (8-16); Aspartate Amino Transferase 34 U/L (17-59); Bilirubin,Total 0.4 mg/dL (0.2-1.3); Blood Urea Nitrogen 14 mg/dL (9-20); Calcium 8.3 mg/dL (8.4-10.2); Carbon Dioxide 28 mmol/L (22-30); Chloride 101 mmol/L (98-107); Estimated Glomerular Filt Rate > 60; Glucose 119 mg/dL (65-110); INR 1.1; Lipase 21 U/L (23-300); Potassium 4.2 mmol/L (3.4-5.0); Prothrombin Time 13.5 Seconds (11.1-14.7); Sodium 134 mmol/L (137-145)
[2021-12-29 05:40] LABS: Partial Thromboplastin Time 38.3 SECONDS (22.3-36.8)
[2021-12-29 05:51] LABS: Troponin I < 0.012 ng/mL (0.000-0.034)
--- NOTE | 2021-12-29 06:21 | PC.NURSE ---
Edna Gallo RN called for medication to be brought down
[2021-12-29] MEDS: MORPHINE SULFATE (*CRX) 4 MG/ML INJ IV PUSH (06:29)
--- NOTE | 2021-12-29 06:41 | PC.NURSE ---
CT called stating they want an IV higher up in the patinet. This RN tried to get an IV up higher on this patient with 1 filed attempt. Patient is refusing other IV access until Massiel Menezes gets here. Patient states, I wont let anyone else try other than Massiel
--- NOTE | 2021-12-29 07:17 | PC.NURSE ---
pt to CT at this time.
--- NOTE | 2021-12-29 07:56 | ED.GENADULT ---
HPI - General Adult General Chief complaint: Chest Pain Stated complaint: Chest Pain Time Seen by Provider: 12/29/21 04:54 History of Present Illness HPI narrative: Patient is a 61-year-old male who presents ER with right-sided chest pain. Worsening over the last couple days. Has a lot of pain when he takes deep breaths. No exertional dyspnea. Denies fevers or chills or sweats. Denies history of PE. 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 He also reports he has history of lung cancer that is been radiated on the right side. He is not currently receiving treatment. Pain not improved with home pain medication. He does take OxyContin. Related Data Home Medications Medication Instructions Recorded Confirmed duloxetine 30 mg capsule,delayed 30 mg PO HS 11/07/19 12/29/21 release duloxetine 60 mg capsule,delayed 60 mg PO DAILY 11/07/19 12/29/21 release pregabalin 225 mg capsule 225 mg PO BID 11/07/19 12/29/21 triamcinolone acetonide 0.1 % 1 applic topical QID PRN Acne 11/07/19 12/29/21 topical cream albuterol sulfate 90 mcg/actuation 1 inh inhalation TID PRN Wheezing 09/09/20 12/29/21 aerosol inhaler alprazolam 1 mg tablet 1 mg PO TID PRN Anxiety 09/09/20 12/29/21 cholecalciferol (vitamin D3) 1,250 1,250 mcg PO WEEKLY 09/09/20 12/29/21 mcg (50,000 unit) capsule oxycodone 30 mg tablet,crush 40 mg PO BID 09/09/20 12/29/21 resistant,extended release 12 hr (OxyContin) tizanidine 4 mg tablet 4 tablet PO BID 12/29/21 12/29/21 Allergies Allergy/AdvReac Type Severity Reaction Status Date / Time bee venom protein (honey bee) Allergy Unknown Swelling Verified 12/29/21 11:33 No Known Drug Allergies Allergy Unknown Other Verified 12/29/21 11:33 Review of Systems Review of Systems: All systems reviewed & are unremarkable except as noted in HPI and below Constitutional: Constitutional: Denies chills, Denies fatigue and Denies fever(s) ENT: Denies dysphagia, Denies nasal congestion and Denies sore throat Cardiovascular: Cardiovascular: Reports chest pain, Denies rapid heart rate and Denies radiating jaw, neck or arm pain Respiratory: Respiratory: Denies cough, Denies dyspnea and Denies wheezing Gastrointestinal: Gastrointestinal: Denies abdominal pain, Denies nausea and Denies vomiting [facility] Past Medical History Medical History (Updated 12/29/21 @ 19:07 by Agustin Santiago MD) Adenocarcinoma, lung Non-small cell carcinoma diagnosed June 2018. Follows with Dr. Baez and Dr. Cavazos; underwent radiation therapy from 12/05/2018 to 12/18/2018 and he says he is in remission. Anxiety Atrial fibrillation S/p cardiac ablation by Dr. Tom Oakley at [facility] BPH (benign prostatic hyperplasia) Cardiac myxoma Left atrial myxoma noted on echocardiogram February 2018. Followed by Dr. Parson at [facility] last seen around December 2018. Chronic pain syndrome Due to chronic lower back pain after complications with lower spinal fusion 2009. COPD (chronic obstructive pulmonary disease) History of DVT (deep vein thrombosis) Right upper extremity DVT and bilateral PE December 2018 for which he took Xarelto for several months. History of pulmonary embolism December 2018 Hypertension Reports he is no longer on medications for such. Mass of lung Peripheral neuropathy Seasonal allergies Surgical History Surgical History History of appendectomy In the History of carpal tunnel release Left 2011 History of elbow surgery Left elbow ulnar neurolysis History of lumbar fusion Anterior and posterior L4-S1 fusion 2009 Hx of cholecystectomy In the Family History Family History (Updated 12/29/21 @ 11:16 by Lula Aranda RN) Father Acute myocardial infarction Pulmonary embolism Sibling Breast cancer Mother Family history of chronic obstructive pulmonary disease Social History Social History Social Histor
[2021-12-29] MEDS: HYDROmorphone HCL INJ (*CRX) 1 MG/ML SYR IV PUSH ×3 (08:21→22:27)
[2021-12-29 08:47] LABS: Troponin I < 0.012 ng/mL (0.000-0.034)
[2021-12-29] MEDS: HYDROcodone/acetaminophen (*CRX) 5-325 MG TABLET 1 TAB PO ×3 (10:06→20:49)
--- NOTE | 2021-12-29 11:02 | PM.IMHP ---
H&P: HPI History of Present Illness Date/Time: 12/29/21 11:02 Chief Complaint: Right-sided chest pain Shortness of breath Narrative: Patient is a 61-year-old male with a past medical history of lung cancer who finished treatment, anxiety, AFib, BPH, cardiac myopathy from, COPD, history of DVT history of PE-L the patient denies this, hypertension, chronic pain syndrome and peripheral neuropathy. Patient presented to [facility] with complaints of shortness of breath and right-sided chest pain. Patient reports that he has been attempting to take deep breaths however creating exceptional pain. He denies any exertional dyspnea. Patient reports that his pain does not improve with his home pain medication he takes OxyContin at home. Therefore prompted him to come to the emergency department for further evaluation. While in the emergency department labs and imaging were obtained. Patient had WBC is 7.6, hemoglobin 10.9, hematocrit 4.9 and platelet 299, INR 1.1 with a PT of 13.5, sodium 134, potassium 4.2, BUN 14, creatinine 0.8 and GFR greater than 60. Normal LFTs with a negative troponin. Lipase negative. Chest x-ray was performed which revealed a worsening mass in the right lung upper lobe consistent with a worsened primary bronchogenic carcinoma and/or pneumonia. She CTA of the chest was performed which did not reveal a acute pulmonary embolism however did reveal enlargement of the heterogeneous right upper lobe mass of 8.2 x 7.7 cm likely a combination of recurrent lung cancer postobstructive pneumonia with right upper lobe endobronchial lesion suspicious of endobronchial invasion. Patient also had mediastinal lymph nodes enlargement consistent with lymphatic spread of the disease 6 additional scattered small enlarging bilateral pulmonary nodules and enlarging sclerotic bone lesions consistent with additional likely he mowed [place] spread of disease. Pulmonary was consulted from the emergency department for further evaluation of the shortness of breath and possible recurrent lung cancer as well as Oncology. Hospitalist was consulted for admission. Upon admission the patient will be managed with IV pain medication, continued on home medications and further evaluation by Oncology and Pulmonary. Review of Systems Review of Systems: All systems reviewed & are unremarkable except as noted in HPI and below [facility] Past Medical History Medical History (Updated 12/29/21 @ 11:12 by Catrina Gao, ANNETTA) Adenocarcinoma, lung Non-small cell carcinoma diagnosed June 2018. Follows with Dr. Baez and Dr. Cavazos; underwent radiation therapy from 12/05/2018 to 12/18/2018 and he says he is in remission. Anxiety Atrial fibrillation S/p cardiac ablation by Dr. 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 Followed by Dr. Parson at [facility] last seen around December 2018. Chronic pain syndrome Due to chronic lower back pain after complications with lower spinal fusion 2009. COPD (chronic obstructive pulmonary disease) History of DVT (deep vein thrombosis) Right upper extremity DVT and bilateral PE December 2018 for which he took Xarelto for several months. History of pulmonary embolism December 2018 Hypertension Reports he is no longer on medications for such. Mass of lung Peripheral neuropathy Seasonal allergies Surgical History Surgical History History of appendectomy In the History of carpal tunnel release Left 2011 History of elbow surgery Left elbow ulnar neurolysis History of lumbar fusion Anterior and posterior L4-S1 fusion 2009 Hx of cholecystectomy In the Family History Family History (Updated 12/29/21 @ 11:16 by Lual Aranda RN) Father Acute myocardial infarction Pulmonary embolism Sibling Breast cancer Mother Family history of chronic obstructive
--- NOTE | 2021-12-29 11:14 | ADMGEN ---
This patient, Jn Garay, was admitted to [address] [place] [address] Room 300-01. Patient/family oriented to hospital policies and general routines including ID bracelet, bed and alarms, visiting hours, pain management, procedures, bathroom and other care routines, personal items, smoking policy, room service/diet, and visiting hours. Information on how to activate the Rapid Response Team has been discussed. Patient/Family are encouraged to report perceived risks to care and to ask questions if they do not understand what they are told or what they should do.
[2021-12-29 12:11] LABS: Troponin I < 0.012 ng/mL (0.000-0.034)
--- NOTE | 2021-12-29 13:24 | PCPTNOTE ---
Per Hospitalist, Patient is independent and patient does not need to be evaluated
[2021-12-29] MEDS: PREGABALIN (*CRX) 75 MG CAPSULE 225 MG PO (16:13)
[2021-12-29] MEDS: TIZANIDINE HCL 4 MG TABLET 16 MG PO (16:13)
--- NOTE | 2021-12-29 20:11 | PM.CNPUL ---
Assessment and Plan Assessment and plan (1) Lung mass: Code(s): R91.8 - Other nonspecific abnormal finding of lung field Status: Acute Assessment and Plan: He has from 2018 adenocarcinoma RUL treated with radiation, had radiation fibrosis. He has an increase in the size of the malignancy with possible lymphangitic spread. I talked wiht Dr Baez, and he would like to have tissue diagnosis to be sure that this is recurrent cancer. Will arrange bronchoscopy for tomorrow if possible. Explained to patient and he wants to have the bronchoscopy keri for getting the diagnosis. PLAN: NPO after MN, schedule for bronchoscopy for tomorrow. (2) COPD (chronic obstructive pulmonary disease): Qualifiers: COPD type: COPD with acute exacerbation Qualified Code(s): J44.1 - Chronic obstructive pulmonary disease with (acute) exacerbation Code(s): J44.9 - Chronic obstructive pulmonary disease, unspecified Status: Chronic Assessment and Plan: He is not on regular COPD medications all the time at home. He uses Breztri when he remembers to take it. Will start Trelegy, use albuterol PRN. I do not see PFTs in the system. He would benefit from having these as an out-patient. History of Present Illness History of Present Illness Consult date: 12/29/21 Requesting physician: Catrina Gao APRN Chief complaint: lung cancer,postobstructive pneumonia Narrative: NEW CONSULT: Jn Garay is a 61 year old man admitted today through the ED with shortness of breath and right chest pain that was intolerable. He had lung cancer in 2018 in the RUL, was treated with radiation for medically inoperable early stage adenocarcinoma 12/05/18 to 12/18/2018. ?He has COPD, uses Breztri some of the time and albuterol p.r.n. when he has increased shortness of breath. About 3 weeks ago he developed sharp left upper chest pain with cold fingers on the left hand. About a week ago, he started having right sided chest pain that was different, with stable shortness of breath. His pain was so severe that he came to the ED last night. Chest CT showed an increase in size of the RUL area where he had the prior adenocarcinoma with radiation. He has not had weight loss, fever, chills, cough or sputum, hemoptysis, difficulty swallowing, N/V/D. * pulmonary embolism in October 2019; CT scan = segmental right lower lobe pulmonary embolism with associated infarction. Stable RUL malignancy. * Repeat CT scan of the chest on 07/14/20= increased soft tissue thickening at the area of previously reported radiation fibrosis RUL. * Subsequent PET scan on 07/22/3020 showed airspace and ground glass opacities RUL, volume loss, architectural distortion without increased activity worsened from February 2020. CT chest on 08/09/2020 showed increased in size compared to February 2018. He had an atrial myxoma removed in May 2021 at [facility] in [facility]. December 29, 2021 CTA : No pulmonary embolism. 2. Enlargement of a now 8.2 x 7.7 cm heterogeneous right upper lobe mass likely combination of recurrent lung cancer and postobstructive pneumonia with right upper lobe endobronchial lesions suspicious for endobronchial invasion. 3. Reticulonodular pattern in the adjacent right middle and lower lobes enlarging right hilar and mediastinal lymph nodes consistent with lymphangitic spread of disease with additional scattered small enlarging bilateral pulmonary nodules and enlarging sclerotic bone lesions consistent with additional likely hematogenous spread of disease. Review of Systems Review of Systems: no change in wt; stable shortness of breath. Taking a shower wears him out. His heart rate increases with a shower. He cannot walk up a flight of stairs due to shortness of breath. no N/V. Has not had COVID. No N/V/D. [facility] Past Medical History Medical History (Update
[2021-12-29] MEDS: DULoxetine HCL 30 MG CAPSULE.DR PO (20:36)
[2021-12-29] MEDS: MELATONIN 5 MG TABLET PO (20:36)
[2021-12-30] VITALS (13 sets, daily range): BP systolic 88–151; BP diastolic 57–93; PULSE 72–97; RESP 16–25; TEMP 35.6–36.6; O2SAT 94–100
[2021-12-30] MEDS: HYDROcodone/acetaminophen (*CRX) 5-325 MG TABLET 1 TAB PO ×3 (00:49→17:08)
[2021-12-30] MEDS: HYDROmorphone HCL INJ (*CRX) 1 MG/ML SYR IV PUSH ×3 (02:30→15:27)
[2021-12-30 06:37] LABS: Basophils Percent Auto 0.4 % (0.2-1.2); Eosinophils Absolute Auto 0.1 K/mm3 (0-0.3); Eosinophils Percent Auto 1.5 % (0-4.4); Hematocrit 35.4 % (42.0-52.0); Hemoglobin 11.1 g/dL (14.0-18.0); Immature Granulocyte Absolute 0.03 K/mm3 (0.00-0.031); Immature Granulocyte Percent A 0.4 % (0-0.5); Lymphocytes Absolute Auto 1.52 K/mm3 (0.9-3.2); Lymphocytes Percent Auto 19.2 % (18.3-44.2); Mean Corpuscular HGB Conc 31.4 g/dl (32-36); Mean Corpuscular Hemoglobin 24.7 pg (26-34); Mean Corpuscular Volume 78.8 fl (80-100); Mean Platelet Volume 9.7 fl (7.4-10.4); Monocytes Absolute Auto 0.8 K/mm3 (0.1-0.6); Monocytes Percent Auto 10.4 % (2.6-8.5); Neutrophils Absolute Auto 5.4 K/mm3 (1.3-6.7); Neutrophils Percent Auto 68.1 % (45.5-73.1); Platelet Count Result 304 k/mm3 (150-375); Red Blood Count 4.49 M/mm3 (4.6-6.20); Red Cell Distribution Width 14.7 % (11.5-14.5); White Blood Count 7.9 K/mm3 (4.5-10.0)
[2021-12-30 06:57] LABS: Alanine Aminotransferase 20 U/L (6-50); Albumin Level 3.9 g/dL (3.5-5.1); Alkaline Phosphatase 189 U/L (38-126); Anion Gap 5 mmol/L (8-16); Aspartate Amino Transferase 23 U/L (17-59); Bilirubin,Total 0.5 mg/dL (0.2-1.3); Blood Urea Nitrogen 11 mg/dL (9-20); Carbon Dioxide 26 mmol/L (22-30); Chloride 104 mmol/L (98-107); Estimated CRCL calculation 106 ml/min; Estimated Glomerular Filt Rate > 60; Glucose 112 mg/dL (65-110); Sodium 135 mmol/L (137-145)
[2021-12-30] MEDS: PREGABALIN (*CRX) 75 MG CAPSULE 225 MG PO ×2 (08:34→17:07)
[2021-12-30] MEDS: TIZANIDINE HCL 4 MG TABLET 16 MG PO ×2 (08:34→17:08)
[2021-12-30] MEDS: ALPRAZolam (*CRX) 0.5 MG TABLET 1 MG PO ×2 (08:35→17:08)
[2021-12-30] MEDS: ERGOCALCIFEROL 50,000 UNIT CAPSULE 50000 UNITS PO (08:35)
[2021-12-30] MEDS: DULoxetine HCL 60 MG CAPSULE.DR PO (08:35)
[2021-12-30] MEDS: FLUTICASONE/UMECLIDIN/VILANTER 100-62.5-25 MCG ELLIPTA 1 PUFF INHALATION (09:21)
--- NOTE | 2021-12-30 10:27 | PM.IMPN ---
Progress Note: A&P Assessment and Plan (1) Other chronic pain: Code(s): G89.29 - Other chronic pain Status: Acute Assessment and Plan: Continue home medications Add additional medications for breakthrough pain (2) Peripheral neuropathy: Code(s): G62.9 - Polyneuropathy, unspecified Status: Acute Assessment and Plan: Continue home medications Stable (3) Lung mass: Code(s): R91.8 - Other nonspecific abnormal finding of lung field Status: Acute Assessment and Plan: Oncology has been consulted for right upper lobe mass Pulmonary is being consulted for right upper lobe mass and possible postobstructive pneumonia Monitor vital signs, I&Os, neuro status and patient is a fall risk Follow WBC, serum electrolytes, temperature curves and cultures Send sputum cultures if possible Oxygen via NC; wean as tolerated. Keep SpO2 greater than 88% Resume home medications P.r.n. Tylenol, Zofran, and melatonin Patient will have a bronchoscopy performed on 2021 for tissue biopsies. This will be performed by Pulmonary. (4) Anxiety: Code(s): F41.9 - Anxiety disorder, unspecified Status: Acute Assessment and Plan: Stable (5) Atrial fibrillation: Code(s): I48.91 - Unspecified atrial fibrillation Status: Acute Assessment and Plan: Resume home medications, rate controlled (6) Hypertension: Qualifiers: Hypertension type: essential hypertension Qualified Code(s): I10 - Essential (primary) hypertension Code(s): I10 - Essential (primary) hypertension Status: Acute Assessment and Plan: Stable (7) Cardiac myxoma: Code(s): D15.1 - Benign neoplasm of heart Status: Chronic Assessment and Plan: Patient follows with Cardiology on outpatient basis. Findings found in 2020 (8) COPD (chronic obstructive pulmonary disease): Qualifiers: COPD type: COPD with acute exacerbation Qualified Code(s): J44.1 - Chronic obstructive pulmonary disease with (acute) exacerbation Code(s): J44.9 - Chronic obstructive pulmonary disease, unspecified Status: Chronic Assessment and Plan: Monitor vital signs, I&Os, neuro status and patient is a fall risk Monitor serum electrolytes, cultures and CBC Monitor Oxygen saturation, Oxygen via NC; wean oxygen as tolerated, keep SpO2 greater than 88% Pulmonary as been consulted for further management evaluation, appreciate assistance and recommendations Monitor vital signs, I&Os, neuro status and patient is a fall risk Follow WBC, serum electrolytes, temperature curves and cultures Send sputum cultures Obtain Pneumococcal antigen urine and legionella pneumophila Ag Ur Oxygen via NC; wean as tolerated. Keep SpO2 greater than 88% Ceftriaxone 2 gram IV q24H and Azithromycin 500mg IV q24H DuoNeb q6H and Albuterol q2H PRN P.r.n. Tylenol, Zofran, and melatonin (9) Abnormal chest CT: Code(s): R93.89 - Abnormal findings on diagnostic imaging of other specified body structures Status: Acute Assessment and Plan: 2/ above Subjective Date/time seen: 12/30/21 10:27 Interval history: Patient is alert and oriented this morning. He was sitting upright in a chair when evaluated this morning. Patient denies any chest pain, shortness of breath, nausea, vomiting upset stomach or diarrhea. Patient was seen by hematology oncology as well as Pulmonary. Patient will go down for bronchoscopy this morning for tissue samples as well as nuclear Medicine for further imaging. Pending results and further recommendations. Review of Systems Review of Systems: All systems reviewed & are unremarkable except as noted in HPI and below Exam Narrative: General: No acute distress. Mental Status: Awake, alert and oriented to person, place, and time with clear speech. Skin: Skin in warm, dry and intact without rashes or lesions. Head: Normocephalic and a
--- NOTE | 2021-12-30 11:10 | ECG_ITS ---
Measurements Intervals [place] Rate: 67 P: -67 NH: 156 QRS: 63 QRSD: 78 T: 73 QT: 396 QTc: 419 Interpretive Statements SINUS RHYTHM EARLY PRECORDIAL R/S TRANSITION BORDERLINE ECG Electronically Signed On 12-30-2021 18:31:33 CDT by Charles Zhou D.O.
--- NOTE | 2021-12-30 13:10 | SUR.PREOP ---
According to pt's family, pt has had two episodes where his body shakes uncontrollably. Pt states he never loses consciousness. Anesthesia informed.
[2021-12-30] MEDS: LACTATED RINGERS 1,000 ML 150 ML IV CONT (13:24)
--- NOTE | 2021-12-30 13:31 | WPDANESEPPF ---
Anes - Initial Pre Proc Eval Procedure: Operation Date: 12/30/21 14:00 Proposed Procedures p Flexible Bronchoscopy - Marialuisa Tovar MD Date/Time: 12/30/21 13:31 Surgeon: Gerry Chase MD Pre Op Diagnosis: lung cancer,postobstructive pneumonia Patient Data Age: 61 Gender: M Height: 1.83 m Weight: 92.8 kg Last Vital Signs Temp 36.4 C L 12/30/21 13:06 Pulse 84 12/30/21 13:06 Resp 25 H 12/30/21 13:06 BP 110/64 12/30/21 13:06 Pulse Ox 96 12/30/21 13:06 O2 Del Method Room Air 12/30/21 13:06 Allergies Allergy/AdvReac Type Severity Reaction Status Date / Time bee venom protein (honey bee) Allergy Unknown Swelling Verified 12/29/21 11:33 No Known Drug Allergies Allergy Unknown Other Verified 12/29/21 11:33 Home Medications Medication Instructions Recorded Confirmed Type duloxetine 30 mg capsule,delayed 30 mg PO HS 11/07/19 12/29/21 History release duloxetine 60 mg capsule,delayed 60 mg PO DAILY 11/07/19 12/29/21 History release pregabalin 225 mg capsule 225 mg PO BID 11/07/19 12/29/21 History triamcinolone acetonide 0.1 % 1 applic topical QID PRN Acne 11/07/19 12/29/21 History topical cream albuterol sulfate 90 mcg/actuation 1 inh inhalation TID PRN Wheezing 09/09/20 12/29/21 History aerosol inhaler alprazolam 1 mg tablet 1 mg PO TID PRN Anxiety 09/09/20 12/29/21 History cholecalciferol (vitamin D3) 1,250 1,250 mcg PO WEEKLY 09/09/20 12/29/21 History mcg (50,000 unit) capsule oxycodone 30 mg tablet,crush 40 mg PO BID 09/09/20 12/29/21 History resistant,extended release 12 hr (OxyContin) tizanidine 4 mg tablet 4 tablet PO BID 12/29/21 12/29/21 History Laboratory Tests 12/29/21 12/30/21 12/30/21 16:25 06:00 06:00 WBC 7.9 K/mm3 K/mm3 (4.5-10.0) RBC 4.49 M/mm3 L M/mm3 (4.6-6.20) Hgb 11.1 g/dL L g/dL (14.0-18.0) Hct 35.4 % L % (42.0-52.0) MCV 78.8 fl L fl (80-100) MCH 24.7 pg L pg (26-34) MCHC 31.4 g/dl L g/dl (32-36) RDW 14.7 % H % (11.5-14.5) Plt Count 304 k/mm3 k/mm3 (150-375) MPV 9.7 fl fl (7.4-10.4) Immature Gran % (Auto) 0.4 % % (0-0.5) Neut % (Auto) 68.1 % % (45.5-73.1) Lymph % (Auto) 19.2 % % (18.3-44.2) [place] % (Auto) 10.4 % H % (2.6-8.5) Eos % (Auto) 1.5 % % (0-4.4) Baso % (Auto) 0.4 % % (0.2-1.2) Lymph # (Auto) 1.52 K/mm3 K/mm3 (0.9-3.2) [place] # (Auto) 0.8 K/mm3 H K/mm3 (0.1-0.6) Eos # (Auto) 0.1 K/mm3 K/mm3 (0-0.3) Baso # (Auto) 0.0 K/mm3 K/mm3 (0.0-0.1) Abs Immat Gran (auto) 0.03 K/mm3 K/mm3 (0.00-0.031) Absolute Neuts (auto) 5.4 K/mm3 K/mm3 (1.3-6.7) Absolute Nucleated RBC 0.0 K/mm3 K/mm3 (0.0-0.012) Nucleated RBC % 0.0 % % (0.0-0.2) Sodium 135 mmol/L L mmol/L (137-145) Potassium 4.0 mmol/L mmol/L (3.4-5.0) Chloride 104 mmol/L mmol/L (98-107) Carbon Dioxide 26 mmol/L mmol/L (22-30) Anion Gap 5 mmol/L L mmol/L (8-16) BUN 11 mg/dL mg/dL (9-20) Creatinine 0.70 mg/dL mg/dL (0.7-1.3) Estim Creat Clear Calc 106 ml/min ml/min Estimated GFR > 60 (59 - ) Glucose 112 mg/dL H mg/dL (65-110) Calcium 8.0 mg/dL L mg/dL (8.4-10.2) Total Bilirubin 0.5 mg/dL mg/dL (0.2-1.3) AST 23 U/L U/L (17-59) ALT 20 U/L U/L (6-50) Alkaline Phosphatase 189 U/L H U/L (38-126) Total Protein 7.0 g/dL g/dL (6.3-8.2) Albumin 3.9 g/dL g/dL (3.5-5.1) Ur L.pneumophila Ag Pending Urine Pneumococcal Ag Pending Patient hx anesthesia problems: none Family hx anesthesia problems: none Results Review: All pre-operative results and documents have been reviewed as part of the
--- NOTE | 2021-12-30 14:37 | SUR.OPER ---
Procedure cancelled by Dr. Tovar at bedside in the procedure room.
--- NOTE | 2021-12-30 14:44 | PM.PNPUL ---
Progress Note: A&P Assessment and Plan (1) Lung mass: Code(s): R91.8 - Other nonspecific abnormal finding of lung field Status: Acute Assessment and Plan: He has from 2018 adenocarcinoma RUL treated with radiation, had radiation fibrosis, now with an increase in the size of the malignancy with possible lymphangitic spread. His bone scan is (+) so bronchoscopy was cancelled. (2) COPD (chronic obstructive pulmonary disease): Qualifiers: COPD type: COPD with acute exacerbation Qualified Code(s): J44.1 - Chronic obstructive pulmonary disease with (acute) exacerbation Code(s): J44.9 - Chronic obstructive pulmonary disease, unspecified Status: Chronic Assessment and Plan: He is not on regular COPD medications all the time at home. He uses Breztri when he remembers to take it, and his says that the spacer helps make it more effective. He is on Trelegy here. I do not see PFTs in the system. (3) Metastatic primary lung cancer: Code(s): C34.90 - Malignant neoplasm of unspecified part of unspecified bronchus or lung Status: Acute Assessment and Plan: He has a (+) bone scan with greater than 10 scattered foci of increased activity in bone including the ribs, spine, pelvis, proximal right femur, proximal left humerus, and right-sided skull, many of which with abnormal CT correlates. There is increased activity in the knees without radiographic comparison, likely osteoarthritis. Increased activity in the sternum correlates with changes of sternotomy. IMPRESSION: 1. Multifocal osseous metastatic disease with worsening from 05/06/2021. Dr Baez will talk with the patient about additional plans. Subjective Date/time seen: 12/30/21 14:44 Interval history: Hospital follow up : Jn Garay is 61 years old, seen in follow up for RUL mass December 29 with shortness of breath and right chest pain that was intolerable. He had lung cancer in 2018 in the RUL, was treated with radiation for medically inoperable early stage adenocarcinoma? 12/05/18 to 12/18/2018. ?He has COPD, uses Breztri some of the time and albuterol p.r.n. when he has increased shortness of breath. About 3 weeks ago he developed sharp left upper chest pain with cold fingers on the left hand. About a week ago, he started having right sided chest pain that was different, with stable shortness of breath. His pain was so severe that he came to the ED last night. Chest CT showed an increase in size of the RUL area where he had the prior adenocarcinoma with radiation. He has not had weight loss, fever, chills, cough or sputum, hemoptysis, difficulty swallowing, N/V/D. * pulmonary embolism in October 2019; CT scan = segmental right lower lobe pulmonary embolism with associated infarction. Stable RUL malignancy. * Repeat CT scan of the chest on 07/14/20= increased soft tissue thickening at the area of previously reported radiation fibrosis RUL. *? Subsequent PET scan on 07/22/3020 showed airspace and ground glass opacities RUL, volume loss, architectural distortion without increased activity worsened from February 2020. CT chest on 08/09/2020 showed increased in size compared to February 2018. 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 December 29, 2021 CTA :?No pulmonary embolism. 2.?Enlargement of a now 8.2 x 7.7 cm heterogeneous right upper lobe mass likely combination of recurrent lung cancer and postobstructive pneumonia with right upper lobe endobronchial lesions suspicious for endobronchial invasion. 3. Reticulonodular pattern in the adjacent right middle and lower lobes enlarging right hilar and mediastinal lymph nodes consistent with?lymphangitic spread of disease?with additional scattered small enlarging bilateral pulmonary nodule
--- NOTE | 2021-12-30 18:29 | PDONCCN ---
[facility] - Date of Consult Date/Time: 12/30/21 18:29 Requesting Physician: Gerry Chase MD Primary Care Provider: Iona Torres, - Consult Narrative Reason for consult: Non-small cell lung cancer Narrative: Jn Garay is a 61 year old male with history of stage I A non-small cell lung cancer status post biopsy of the right upper lung mass done in June 2018. He had SBRT treatment done December 2018. Patient was last seen in the office on July 13, 2021 and follow-up appointment in 3 months was made but the failed to keep the appointment. 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 Patient now came into the hospital with bilateral rib cage pain and shortness of breath with cough. He denies any weight loss. CTA chest was performed that showed no evidence of pulmonary embolism but revealed and large right upper lobe mass 8.2 x 7.7 cm likely combination of recurrent lung cancer with postobstructive pneumonia. There was also mediastinal lymphadenopathy. This is consistent with lymphatic spread and 6 additional scattered enlarging bilateral pulmonary nodules. Bone scan was ordered that showed multifocal bone metastasis. Review of Systems - Review of Systems All systems reviewed & are unremarkable except as noted in [facility] and [facility] Medical History: Medical History (Last Reviewed 12/30/21 @ 13:33 by Addy Desai MD) Adenocarcinoma, lung Non-small cell carcinoma diagnosed June 2018. Follows with Dr. Baez and Dr. Cavazos; underwent radiation therapy from 12/05/2018 to 12/18/2018 and he says he is in remission. Anxiety Atrial fibrillation S/p cardiac ablation by Dr. 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 Followed by Dr. Parson at [facility] last seen around December 2018. Chronic pain syndrome Due to chronic lower back pain after complications with lower spinal fusion 2009. COPD (chronic obstructive pulmonary disease) History of DVT (deep vein thrombosis) Right upper extremity DVT and bilateral PE December 2018 for which he took Xarelto for several months. History of pulmonary embolism December 2018 Hypertension Reports he is no longer on medications for such. Mass of lung Peripheral neuropathy Seasonal allergies Surgical History: Surgical History (Last Reviewed 12/30/21 @ 13:33 by Addy Desai MD) History of appendectomy In the History of carpal tunnel release Left 2011 History of elbow surgery Left elbow ulnar neurolysis History of lumbar fusion Anterior and posterior L4-S1 fusion 2009 Hx of cholecystectomy In the Family History: Family History (Last Reviewed 12/30/21 @ 13:33 by Addy Desai MD) Father Acute myocardial infarction Pulmonary embolism Sibling Breast cancer Mother Family history of chronic obstructive pulmonary disease - Social History Social History: Social History (Last Reviewed 12/30/21 @ 13:33 by Addy Desai MD) Gender Identity: Gender identity (if verbalized by the patient): Male Sexual Orientation: Sexual Orientation (if Verbalized by the Patient): Straight or Heterosexual Alcohol Use: Alcohol intake: never Substance Use: Substance use: never Substance use type: painkillers Others: Spiritual care concerns: No Smoking Status: Smoking status: Former smoker Tobacco type: cigarettes Second hand tobacco smoke exposure: No Smoking end date: 06/12/18 Approximate Smoking End Date: 12/29/2017 Smoking Pack-years: Smoking packs per day: 2 Smoking cigarettes per day: 40.0 Years smoked: 40 Smoking pack-years: 80.00 Meds Home Medications Medication Instructions Recorded Confirmed Type duloxetine 30 mg capsule,delayed 30 mg PO HS 11/07/19 12/29/21 History release duloxetine 60 mg capsule,delayed
--- NOTE | 2021-12-30 18:37 | WPDONCPN ---
Progress Note: A/P - Additional Plan Metastatic non-small cell lung cancer. Bone scan finding reviewed with the patient. Plan is to perform PET scan as an outpatient. Plan for systemic therapy as an outpatient. Postobstructive pneumonia. Patient is on antibiotic therapy. He would need inpatient radiation therapy treatment for postobstructive pneumonia. We will recommend transferring patient to [facility]. Case discussed with Dr. Tovar. - Time Spent With Patient Total time spent is greater than 50% in coordination of care (as documented) at patient's floor/unit and/or counseling patient: 15 - 25 minutes Subjective Interval history: Metastatic non-small cell lung cancer Postobstructive pneumonia Review of Systems - Review of Systems Patient remains quite tired and fatigue and complain of cough with bilateral rib cage pain. No fevers and chills. All systems reviewed & are unremarkable except as noted in HPI and bel Exam Vital signs: Temp Pulse Resp BP Pulse Ox O2 Del Method O2 Flow Rate 36.6 C 84 16 117/77 94 Room Air 4 12/30/21 16:00 12/30/21 16:00 12/30/21 16:00 12/30/21 16:00 12/30/21 16:00 12/30/21 15:01 12/30/21 14:42 Narrative: Lungs bilateral wheezes and rhonchi Cardiovascular regular rate rhythm no murmurs Abdomen soft nontender nondistended bowel sounds are positive Extremities no edema PN: Objective Data - Labs CBC & Chem 7: 12/30/21 06:00 12/30/21 06:00 Labs: Laboratory Results - last 24 hr 12/30/21 12/30/21 06:00 06:00 WBC 7.9 RBC 4.49 L Hgb 11.1 L Hct 35.4 L MCV 78.8 L MCH 24.7 L MCHC 31.4 L RDW 14.7 H Plt Count 304 MPV 9.7 Immature Gran % (Auto) 0.4 Neut % (Auto) 68.1 Lymph % (Auto) 19.2 Fleming % (Auto) 10.4 H Eos % (Auto) 1.5 Baso % (Auto) 0.4 Lymph # (Auto) 1.52 Fleming # (Auto) 0.8 H Eos # (Auto) 0.1 Baso # (Auto) 0.0 Abs Immat Gran (auto) 0.03 Absolute Neuts (auto) 5.4 Absolute Nucleated RBC 0.0 Nucleated RBC % 0.0 Sodium 135 L Potassium 4.0 Chloride 104 Carbon Dioxide 26 Anion Gap 5 L BUN 11 Creatinine 0.70 Estim Creat Clear Calc 106 Estimated GFR > 60 Glucose 112 H Calcium 8.0 L Total Bilirubin 0.5 AST 23 ALT 20 Alkaline Phosphatase 189 H Total Protein 7.0 Albumin 3.9
[2021-12-30] MEDS: fentaNYL (*CRX) 25 MCG PATCH TRANSDERM (20:16)
[2021-12-30] MEDS: DULoxetine HCL 30 MG CAPSULE.DR PO (20:16)
[2021-12-30] MEDS: MELATONIN 5 MG TABLET PO (20:16)
[2021-12-31] VITALS (7 sets, daily range): BP systolic 107–156; BP diastolic 72–118; PULSE 66–101; RESP 18–22; TEMP 35.9–37.1; O2SAT 94–95
[2021-12-31] MEDS: HYDROmorphone HCL INJ (*CRX) 1 MG/ML SYR IV PUSH ×5 (00:38→19:45)
[2021-12-31 05:56] LABS: Basophils Percent Auto 0.4 % (0.2-1.2); Eosinophils Absolute Auto 0.1 K/mm3 (0-0.3); Eosinophils Percent Auto 0.7 % (0-4.4); Hematocrit 35.6 % (42.0-52.0); Hemoglobin 11.1 g/dL (14.0-18.0); Immature Granulocyte Absolute 0.03 K/mm3 (0.00-0.031); Immature Granulocyte Percent A 0.4 % (0-0.5); Lymphocytes Absolute Auto 1.76 K/mm3 (0.9-3.2); Lymphocytes Percent Auto 24.3 % (18.3-44.2); Mean Corpuscular HGB Conc 31.2 g/dl (32-36); Mean Corpuscular Hemoglobin 24.9 pg (26-34); Mean Corpuscular Volume 79.8 fl (80-100); Mean Platelet Volume 10.2 fl (7.4-10.4); Monocytes Absolute Auto 0.6 K/mm3 (0.1-0.6); Neutrophils Absolute Auto 4.8 K/mm3 (1.3-6.7); Neutrophils Percent Auto 66.2 % (45.5-73.1); Platelet Count Result 308 k/mm3 (150-375); Red Blood Count 4.46 M/mm3 (4.6-6.20); Red Cell Distribution Width 14.6 % (11.5-14.5); White Blood Count 7.3 K/mm3 (4.5-10.0)
[2021-12-31 06:08] LABS: Alanine Aminotransferase 17 U/L (6-50); Albumin Level 3.7 g/dL (3.5-5.1); Alkaline Phosphatase 181 U/L (38-126); Anion Gap 6 mmol/L (8-16); Aspartate Amino Transferase 19 U/L (17-59); Bilirubin,Total 0.3 mg/dL (0.2-1.3); Blood Urea Nitrogen 12 mg/dL (9-20); Calcium 8.1 mg/dL (8.4-10.2); Carbon Dioxide 26 mmol/L (22-30); Chloride 105 mmol/L (98-107); Estimated CRCL calculation 106 ml/min; Estimated Glomerular Filt Rate > 60; Glucose 102 mg/dL (65-110); Potassium 3.7 mmol/L (3.4-5.0); Sodium 137 mmol/L (137-145)
[2021-12-31] MEDS: PREGABALIN (*CRX) 75 MG CAPSULE 225 MG PO ×2 (09:20→16:06)
[2021-12-31] MEDS: ALPRAZolam (*CRX) 0.5 MG TABLET 1 MG PO ×2 (09:20→16:05)
[2021-12-31] MEDS: DULoxetine HCL 60 MG CAPSULE.DR PO (09:21)
[2021-12-31] MEDS: HYDROcodone/acetaminophen (*CRX) 5-325 MG TABLET 1 TAB PO (09:21)
[2021-12-31] MEDS: DEXAMETHASONE 2 MG TABLET PO (09:21)
--- NOTE | 2021-12-31 09:30 | PM.IMPN ---
Progress Note: A&P Assessment and Plan (1) Other chronic pain: Code(s): G89.29 - Other chronic pain Status: Acute Assessment and Plan: Continue home medications Add additional medications for breakthrough pain (2) Peripheral neuropathy: Code(s): G62.9 - Polyneuropathy, unspecified Status: Acute Assessment and Plan: Continue home medications (3) Lung mass: Code(s): R91.8 - Other nonspecific abnormal finding of lung field Status: Acute Assessment and Plan: Oncology has been consulted for right upper lobe mass Pulmonary is being consulted for right upper lobe mass and possible postobstructive pneumonia Monitor vital signs, I&Os, neuro status and patient is a fall risk Follow WBC, serum electrolytes, temperature curves and cultures Send sputum cultures if possible Oxygen via NC; wean as tolerated.? Keep SpO2 greater than 88% Resume home medications P.r.n. Tylenol, Zofran, and melatonin Patient will have a bronchoscopy performed on 2021 for tissue biopsies.? This will be performed by Pulmonary. (4) Anxiety: Code(s): F41.9 - Anxiety disorder, unspecified Status: Acute Assessment and Plan: Continue home medications Stable (5) Atrial fibrillation: Code(s): I48.91 - Unspecified atrial fibrillation Status: Acute Assessment and Plan: Stable (6) Hypertension: Qualifiers: Hypertension type: essential hypertension Qualified Code(s): I10 - Essential (primary) hypertension Code(s): I10 - Essential (primary) hypertension Status: Acute Assessment and Plan: Stable (7) Cardiac myxoma: Code(s): D15.1 - Benign neoplasm of heart Status: Chronic Assessment and Plan: Stable (8) COPD (chronic obstructive pulmonary disease): Qualifiers: COPD type: COPD with acute exacerbation Qualified Code(s): J44.1 - Chronic obstructive pulmonary disease with (acute) exacerbation Code(s): J44.9 - Chronic obstructive pulmonary disease, unspecified Status: Chronic Assessment and Plan: Monitor vital signs, I&Os, neuro status and patient is a fall risk Monitor serum electrolytes, cultures and CBC Monitor Oxygen saturation, Oxygen via NC; wean oxygen as tolerated, keep SpO2 greater than 88% Pulmonary as been consulted for further management evaluation, appreciate assistance and recommendations Monitor vital signs, I&Os, neuro status and patient is a fall risk Follow WBC, serum electrolytes, temperature curves and cultures Send sputum cultures Obtain Pneumococcal antigen urine and legionella pneumophila Ag Ur Oxygen via NC; wean as tolerated.? Keep SpO2 greater than 88% Ceftriaxone 2 gram IV q24H? and Azithromycin 500mg IV q24H DuoNeb q6H and Albuterol q2H PRN P.r.n. Tylenol, Zofran, and melatonin (9) Abnormal chest CT: Code(s): R93.89 - Abnormal findings on diagnostic imaging of other specified body structures Status: Acute Assessment and Plan: 2/2 above Subjective Date/time seen: 12/31/21 09:30 Interval history: Patient is alert and oriented x4 this morning. He discussed possible transfer to [facility] with Dr. Hernán torres on 12/30/2021 for inpatient radiation therapy. Patient is willing to go to another facility for this due to pulmonary mass. Patient had a new ocular med scan performed on 12/30/2021 that revealed multiple lesions to his bones. Patient has been made aware of this. At this time the patient denies any shortness of breath or chest pain. Review of Systems Review of Systems: All systems reviewed & are unremarkable except as noted in HPI and below Objective Data Vital Signs Vital Signs: Vital Signs - 24 hr 12/30/21 12:00 12/30/21 13:06 12/30/21 14:32 Temperature 97.6 F 97.5 F L Pulse Rate 89 84 83 Respiratory Rate 18 25 H 22 H Blood Pressure 109/79 110/64 88/57 L Pulse Oximetry 94 96 100 Oxygen Delivery Room Air Simple Face Mask
--- NOTE | 2021-12-31 14:31 | PM.PNPUL ---
Progress Note: A&P Assessment and Plan (1) Lung mass: Code(s): R91.8 - Other nonspecific abnormal finding of lung field Status: Acute Assessment and Plan: He has from 2018 adenocarcinoma RUL treated with radiation, had radiation fibrosis, now with an increase in the size of the malignancy with possible lymphangitic spread. His bone scan is (+) so bronchoscopy was cancelled. (2) COPD (chronic obstructive pulmonary disease): Qualifiers: COPD type: COPD with acute exacerbation Qualified Code(s): J44.1 - Chronic obstructive pulmonary disease with (acute) exacerbation Code(s): J44.9 - Chronic obstructive pulmonary disease, unspecified Status: Chronic Assessment and Plan: He is not on regular COPD medications all the time at home. He uses Breztri when he remembers to take it, and his says that the spacer helps make it more effective. He is on Trelegy here. I do not see PFTs in the system. I would recommend that he goes home on something and uses it regularly (3) Metastatic primary lung cancer: Code(s): C34.90 - Malignant neoplasm of unspecified part of unspecified bronchus or lung Status: Acute Assessment and Plan: He has a (+) bone scan with greater than 10 scattered foci of increased activity in bone including the ribs, spine, pelvis, proximal right femur, proximal left humerus, and right-sided skull, many of which with abnormal CT correlates. There is increased activity in the knees without radiographic comparison, likely osteoarthritis. Increased activity in the sternum correlates with changes of sternotomy. IMPRESSION: Multifocal osseous metastatic disease with worsening from 05/06/2021. Time Spent With Patient Time: d/w Catrina Gao APRN who made plans with Dr Baez today. Will stop antibiotics, plan to discharge tomorrow and get the rest of his Rx with PET, port placement and radiation out-patient. I will sign off. Please recall if needed. Thank you. He does not need f/u in the pulmonary clinic. Time with patient: less than 15 minutes Subjective Date/time seen: 12/31/21 14:31 Interval history: Interval history: Hospital follow up?: Jn aGray is 61 years old, seen in follow up for RUL mass December 29 with shortness of breath and right chest pain that was intolerable. He had lung cancer in 2018 in the RUL, was treated with radiation for medically inoperable early stage adenocarcinoma? 12/05/18 to 12/18/2018. ?He has COPD, uses Breztri some of the time and albuterol p.r.n. when he has increased shortness of breath. About 3 weeks ago he developed sharp left upper chest pain with cold fingers on the left hand. About a week ago, he started having right sided chest pain that was different, with stable shortness of breath. His pain was so severe that he came to the ED last night. Chest CT showed an increase in size of the RUL area where he had the prior adenocarcinoma with radiation. He has not had weight loss, fever, chills, cough or sputum, hemoptysis, difficulty swallowing, N/V/D. * pulmonary embolism in October 2019; CT scan = segmental right lower lobe pulmonary embolism with associated infarction. Stable RUL malignancy. * Repeat CT scan of the chest on 07/14/20= increased soft tissue thickening at the area of previously reported radiation fibrosis RUL. *? Subsequent PET scan on 07/22/3020 showed airspace and ground glass opacities RUL, volume loss, architectural distortion without increased activity worsened from February 2020. CT chest on 08/09/2020 showed increased in size compared to February 2018. 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 December 29, 2021 CTA :?No pulmonary embolism. 2.?Enlargement of a now 8.2 x 7.7 cm heterogeneous right upper lobe mass
--- NOTE | 2021-12-31 17:12 | PCRCNOTE ---
Window of time for treatment , will continue as scheduled at 0800 tomorrow.
[2021-12-31] MEDS: MELATONIN 5 MG TABLET PO (20:00)
[2021-12-31] MEDS: DULoxetine HCL 30 MG CAPSULE.DR PO (20:00)
[2021-12-31] MEDS: TIZANIDINE HCL 4 MG TABLET 16 MG PO (20:01)
[2022-01-01] MEDS: HYDROmorphone HCL INJ (*CRX) 1 MG/ML SYR IV PUSH ×3 (02:01→08:56)
[2022-01-01 02:05] VITALS: BP 110/69; PULSE 59; RESP 17; TEMP 37; O2SAT 97
[2022-01-01 04:00] VITALS: BP 115/72; PULSE 69; RESP 18; TEMP 36.4; O2SAT 99
[2022-01-01 06:08] LABS: Basophils Percent Auto 0.2 % (0.2-1.2); Eosinophils Percent Auto 0.1 % (0-4.4); Hematocrit 35.4 % (42.0-52.0); Immature Granulocyte Absolute 0.05 K/mm3 (0.00-0.031); Immature Granulocyte Percent A 0.5 % (0-0.5); Lymphocytes Absolute Auto 1.81 K/mm3 (0.9-3.2); Lymphocytes Percent Auto 19.8 % (18.3-44.2); Mean Corpuscular HGB Conc 31.1 g/dl (32-36); Mean Corpuscular Hemoglobin 24.9 pg (26-34); Mean Corpuscular Volume 80.3 fl (80-100); Mean Platelet Volume 9.9 fl (7.4-10.4); Monocytes Absolute Auto 0.9 K/mm3 (0.1-0.6); Monocytes Percent Auto 9.6 % (2.6-8.5); Neutrophils Absolute Auto 6.4 K/mm3 (1.3-6.7); Neutrophils Percent Auto 69.8 % (45.5-73.1); Platelet Count Result 366 k/mm3 (150-375); Red Blood Count 4.41 M/mm3 (4.6-6.20); Red Cell Distribution Width 14.6 % (11.5-14.5); White Blood Count 9.1 K/mm3 (4.5-10.0)
[2022-01-01 06:23] LABS: Alanine Aminotransferase 17 U/L (6-50); Albumin Level 3.8 g/dL (3.5-5.1); Alkaline Phosphatase 170 U/L (38-126); Anion Gap 6 mmol/L (8-16); Aspartate Amino Transferase 21 U/L (17-59); Bilirubin,Total 0.1 mg/dL (0.2-1.3); Blood Urea Nitrogen 12 mg/dL (9-20); Calcium 8.4 mg/dL (8.4-10.2); Carbon Dioxide 24 mmol/L (22-30); Chloride 108 mmol/L (98-107); Estimated CRCL calculation 106 ml/min; Estimated Glomerular Filt Rate > 60; Glucose 121 mg/dL (65-110); Potassium 3.8 mmol/L (3.4-5.0); Sodium 138 mmol/L (137-145)
--- NOTE | 2022-01-01 06:27 | PM.DS ---
DS: Admitting Diagnosis Discharge Date 01/01/2022 Admitting Diagnosis Postobstructive pneumonia due to pulmonary mass DS: Discharge Diagnosis Discharge Diagnosis (1) Other chronic pain: Code(s): G89.29 - Other chronic pain Status: Acute Assessment and Plan: Continue home medications Add additional medications for breakthrough pain (2) Peripheral neuropathy: Code(s): G62.9 - Polyneuropathy, unspecified Status: Acute Assessment and Plan: Continue home medications (3) Lung mass: Code(s): R91.8 - Other nonspecific abnormal finding of lung field Status: Acute Assessment and Plan: Oncology has been consulted for right upper lobe mass Pulmonary is being consulted for right upper lobe mass and possible postobstructive pneumonia Monitor vital signs, I&Os, neuro status and patient is a fall risk Follow WBC, serum electrolytes, temperature curves and cultures Send sputum cultures if possible Oxygen via NC; wean as tolerated.? Keep SpO2 greater than 88% Resume home medications P.r.n. Tylenol, Zofran, and melatonin Patient will have a bronchoscopy performed on 2021 for tissue biopsies.? This will be performed by Pulmonary. (4) Anxiety: Code(s): F41.9 - Anxiety disorder, unspecified Status: Acute Assessment and Plan: Continue home medications Stable (5) Atrial fibrillation: Code(s): I48.91 - Unspecified atrial fibrillation Status: Acute Assessment and Plan: Stable (6) Hypertension: Qualifiers: Hypertension type: essential hypertension Qualified Code(s): I10 - Essential (primary) hypertension Code(s): I10 - Essential (primary) hypertension Status: Acute Assessment and Plan: Stable (7) Cardiac myxoma: Code(s): D15.1 - Benign neoplasm of heart Status: Chronic Assessment and Plan: Stable (8) COPD (chronic obstructive pulmonary disease): Qualifiers: COPD type: COPD with acute exacerbation Qualified Code(s): J44.1 - Chronic obstructive pulmonary disease with (acute) exacerbation Code(s): J44.9 - Chronic obstructive pulmonary disease, unspecified Status: Chronic Assessment and Plan: Monitor vital signs, I&Os, neuro status and patient is a fall risk Monitor serum electrolytes, cultures and CBC Monitor Oxygen saturation, Oxygen via NC; wean oxygen as tolerated, keep SpO2 greater than 88% Pulmonary as been consulted for further management evaluation, appreciate assistance and recommendations Monitor vital signs, I&Os, neuro status and patient is a fall risk Follow WBC, serum electrolytes, temperature curves and cultures Send sputum cultures Obtain Pneumococcal antigen urine and legionella pneumophila Ag Ur Oxygen via NC; wean as tolerated.? Keep SpO2 greater than 88% Ceftriaxone 2 gram IV q24H? and Azithromycin 500mg IV q24H DuoNeb q6H and Albuterol q2H PRN P.r.n. Tylenol, Zofran, and melatonin (9) Abnormal chest CT: Code(s): R93.89 - Abnormal findings on diagnostic imaging of other specified body structures Status: Acute Assessment and Plan: 07/20 above DS: Summary Hospital Course Reason for hospitalization: Shortness of breath Postobstructive pneumonia pulmonary mass Hospital Course: Patient is a 61-year-old male with a past medical history of lung cancer who finished treatment, anxiety, AFib, BPH, cardiac myopathy from, COPD, history of DVT history of PE-L the patient denies this, hypertension, chronic pain syndrome and peripheral neuropathy.? Patient presented to [facility] with complaints of shortness of breath and right-sided chest pain.? Patient reports that he has been attempting to take deep breaths however creating exceptional pain.? He denies any exertional dyspnea.? Patient reports that his pain does not improve with his home pain medication he takes OxyContin at home.? Therefore prompted him to come to t
[2022-01-01 08:00] VITALS: BP 127/84; PULSE 75; RESP 18; TEMP 35.9; O2SAT 95
[2022-01-01] MEDS: ALPRAZolam (*CRX) 0.5 MG TABLET 1 MG PO (08:55)
[2022-01-01] MEDS: DULoxetine HCL 60 MG CAPSULE.DR PO (08:55)
[2022-01-01] MEDS: DEXAMETHASONE 2 MG TABLET PO (08:55)
[2022-01-01] MEDS: HYDROcodone/acetaminophen (*CRX) 5-325 MG TABLET 1 TAB PO (08:55)
[2022-01-01] MEDS: PREGABALIN (*CRX) 75 MG CAPSULE 225 MG PO (08:56)
[2022-01-01] MEDS: FLUTICASONE/UMECLIDIN/VILANTER 100-62.5-25 MCG ELLIPTA 1 PUFF INHALATION (09:10)
[2022-01-01 15:45] LABS: Pneumococcal Antigen Urine Not Detected (Not Detected)
[2022-01-03 21:26] LABS: Legionella pneumophila Ag Ur Not Detected (Not Detected)
== END 2022-01-01 10:26 | disposition home or self-care (01) ==
LOC: ANHED 04:54 → ANH3MEDSUR 16:16
PROVIDERS: Internal Medicine Critical Care Medicine; Admitting Provider Internal Medicine; Emergency Provider Emergency Medicine; PCP Family Medicine; Visit Provider Nurse Practitioner Family
PROC: 0BJ08ZZ Inspection of Tracheobronchial Tree, Via Natural or Artificial Opening Endoscopic (ICD-10-PCS; CPT 31622; principal; 2021-12-30 14:00)
DX: C34.11 Malignant neoplasm of upper lobe, right bronchus or lung (principal); C79.51 Secondary malignant neoplasm of bone; J18.8 Other pneumonia, unspecified organism; Z92.3 Personal history of irradiation; G89.29 Other chronic pain; G62.9 Polyneuropathy, unspecified; R19.8 Other specified symptoms and signs involving the digestive system and abdomen; Z85.118 Personal history of other malignant neoplasm of bronchus and lung; F41.9 Anxiety disorder, unspecified; I48.91 Unspecified atrial fibrillation; I10 Essential (primary) hypertension; D15.1 Benign neoplasm of heart; J44.1 Chronic obstructive pulmonary disease with (acute) exacerbation; R93.89 Abnormal findings on diagnostic imaging of other specified body structures; N40.0 Benign prostatic hyperplasia without lower urinary tract symptoms; R06.02 Shortness of breath; I47.1 Supraventricular tachycardia; Z98.1 Arthrodesis status; Z86.718 Personal history of other venous thrombosis and embolism; Z86.711 Personal history of pulmonary embolism; Z90.49 Acquired absence of other specified parts of digestive tract; Z80.3 Family history of malignant neoplasm of breast; Z87.891 Personal history of nicotine dependence; Z79.891 Long term (current) use of opiate analgesic; Z79.51 Long term (current) use of inhaled steroids; Z79.899 Other long term (current) drug therapy
CPT/HCPCS: 31622; 36415; 71045; 71046; 71275; 78306; 80053; 83690; 84484; 85025; 85610; 85730; 87040; 87449; 87899; 93005; 94640; 96365; 96366; 96367; 96375; 96376; 97165; 99285; A9270; A9561; G0378; J0456; J0696; J1170; J2270; J2704; J7040; J7120; J8540; Q9967

== ENCOUNTER 2022-01-12 08:32 | Outpatient (CLI) | payer MEDICARE, MEDICAID, SELFPAY ==
--- NOTE | ~2022-01-12 | PE_ITS ---
EXAMINATION: PET skull to mid thigh DATE: 01/12/2022 10:26 INDICATION: Malignant neoplasm of the right upper lobe TECHNIQUE: Blood glucose level was 126 mg/dL. 6.993 mCi of 18-fluorodeoxyglucose (18-FDG) was adminis tered i.v. Low dose computed tomography (CT) images were acquired from the base of the brain to the p roximal thighs for attenuation correction and anatomic localization. Positron emission tomography (PE T) images were acquired in the same distribution beginning 60 minutes after injection. The dose-lengt h product (DLP) was 733.07 mGy-cm. COMPARISON: 07/22/2020 FINDINGS: Head/neck: There is a new 9 mm soft tissue density in the posterior aspect of the left parotid gland which demonstrates abnormal FDG uptake with an SUV max of 5.9. There is FDG uptake in the vocal cords and several paraspinal muscles without suspicious CT correlate. Chest: There is an 11 mm x 6 mm right supraclavicular lymph node which demonstrates abnormal FDG upta ke and an SUV max of 5.0. There is an approximately 8.0 x 6.6 cm right perihilar upper lobe mass with abnormal FDG uptake and an SUV max of 12.7. There is a 9 mm nodule in association with the minor fis sure without definite FDG uptake. There is a 2.5 x 2.1 cm soft tissue mass in the anterior mediastinu m with abnormal FDG uptake. There are changes of interval median sternotomy. There right hilar, right lower paratracheal, and subcarinal lymph nodes with abnormal FDG uptake. No pleural effusion or pneu mothorax. The heart size is normal. Abdomen/pelvis/proximal thighs: Physiologic FDG activity is present in the bowel and urinary tract. N o abnormal FDG uptake is identified. The gallbladder is surgically absent. The liver, spleen, pancrea s, and adrenal glands are normal. The kidneys are unremarkable. No pathologically enlarged abdominal or pelvic lymph nodes are identified. There is calcified atherosclerosis of the aorta and many of the other arteries. There is no free intraperitoneal gas or evidence of bowel obstruction. A moderate vo lume of colonic stool is present. Musculoskeletal: There are multiple new sclerotic osseous lesions with associated abnormal FDG uptake . For instance there are new sclerotic lesions in the C3 T10, and T12 vertebral bodies. There are als o new sclerotic lesions in the left iliac wing, the medial aspect of the iliac bones, the left sacrum , and anterior left fourth rib. IMPRESSION: 1. Perihilar right upper lobe mass with abnormal FDG uptake, consistent with primary bronchogenic car cinoma. 2. Metastatic disease involving mediastinal, right hilar, and right supraclavicular lymph nodes as we ll as multiple osseous structures as described above. 3. New indeterminate mass of the left parotid gland with abnormal FDG uptake, consistent with primary or metastatic neoplasm. 4. Changes of interval sternotomy with FDG avid soft tissue mass in the anterior mediastinum, metasta tic disease versus surgical change. Reviewed, dictated and finalized at location L. IMPRESSION: 1. Perihilar right upper lobe mass with abnormal FDG uptake, consistent with pr imary bronchogenic carcinoma. 2. Metastatic disease involving mediastinal, right hilar, and right supraclavic ular lymph nodes as well as multiple osseous structures as described above. 3. New indeterminate mass of the left parotid gland with abnormal FDG uptake, c onsistent with primary or metastatic neoplasm. 4. Changes of interval sternotomy with FDG avid soft tissue mass in the anterio r mediastinum, metastatic disease versus surgical change.
[2022-01-12 08:57] LABS: Glucose Point of Care 126 mg/dl (65-105)
== END 2022-01-12 08:33 | disposition home or self-care (01) ==
PROVIDERS: PCP Family Medicine; Visit Provider Internal Medicine Hematology & Oncology
DX: C34.91 Malignant neoplasm of unspecified part of right bronchus or lung (principal); C79.51 Secondary malignant neoplasm of bone; C77.8 Secondary and unspecified malignant neoplasm of lymph nodes of multiple regions; C79.89 Secondary malignant neoplasm of other specified sites; Z98.890 Other specified postprocedural states
CPT/HCPCS: 78815; A9552

== ENCOUNTER 2022-01-15 03:19 | Emergency (ER) | payer MEDICARE, MEDICAID, SELFPAY ==
--- NOTE | ~2022-01-15 | XR_ITS ---
EXAMINATION: XR chest 2V DATE: 01/15/2022 04:10 INDICATION: Lung cancer with metastases presenting with cough and chest pain TECHNIQUE: PA and lateral views of the chest were obtained. COMPARISON: Chest radiograph and CT dated 12/30/2021 FINDINGS: No significant change in a masslike opacity in the posterior right upper lung zone along portions of the right upper lobe and superior segment right lower lobe on prior CT at which time the appearance w as most consistent with combination of malignancy and postobstructive pneumonia. No new airspace opac ities, pulmonary edema, pleural effusion or pneumothorax. The cardiomediastinal silhouette is normal. Median sternotomy wires are present. Cholecystectomy clips in right upper quadrant. IMPRESSION: 1. Unchanged masslike opacity in the posterior right upper lung zone consistent with malignancy and a ssociated postobstructive atelectasis versus pneumonia. Reviewed, dictated and finalized at location A. IMPRESSION: 1. Unchanged masslike opacity in the posterior right upper lung zone consistent with malignancy and associated postobstructive atelectasis versus pneumonia.
[2022-01-15 03:25] VITALS: BP 116/62; PULSE 116; RESP 22; TEMP 37.6; O2SAT 97
--- NOTE | 2022-01-15 03:31 | PC.NURSE ---
pT HAS A 50MCG PATCH fENTANYL PLACED ON Cam
[2022-01-15 03:33] VITALS: BP 116/61; RESP 20
[2022-01-15 03:52] LABS: Glucose Point of Care 146 mg/dl (65-105)
--- NOTE | 2022-01-15 03:52 | ED.GENADULT ---
HPI - General Adult General Chief complaint: Unspecified Stated complaint: low back/hip pain, cancer pt Time Seen by Provider: 01/15/22 03:27 History of Present Illness HPI narrative: Patient is a 61-year-old male complaining of low back and bilateral hip pain, my cancer pain , 10 out of 10, aching, worse tonight but that is been ongoing for the past few weeks. Patient has a history of chronic low back pain. Patient states that he is on fentanyl patch, he currently has 2 on, and oxycodone for pain. Patient states that he goes to pain management clinic and also his oncologist for pain control. Patient also states that he has been coughing for the past month, productive, clear yellowish sputum. Patient denies any chest pain, shortness of breath, abdominal pain, nausea, vomiting, diaphoresis, fever or chills. Related Data Home Medications Medication Instructions Recorded Confirmed duloxetine 30 mg capsule,delayed 30 mg PO HS 11/07/19 01/10/22 release duloxetine 60 mg capsule,delayed 60 mg PO DAILY 11/07/19 01/10/22 release pregabalin 225 mg capsule 225 mg PO BID 11/07/19 01/10/22 triamcinolone acetonide 0.1 % 1 applic topical QID PRN Acne 11/07/19 01/10/22 topical cream albuterol sulfate 90 mcg/actuation 1 inh inhalation TID PRN Wheezing 09/09/20 01/10/22 aerosol inhaler cholecalciferol (vitamin D3) 1,250 1,250 mcg PO WEEKLY 09/09/20 01/10/22 mcg (50,000 unit) capsule oxycodone 30 mg tablet,crush 40 mg PO BID 09/09/20 01/10/22 resistant,extended release 12 hr (OxyContin) tizanidine 4 mg tablet 4 tablet PO BID 12/29/21 01/10/22 fentanyl 50 mcg/hr transdermal 1 patch transdermal Q72H 01/10/22 01/10/22 patch tamsulosin 0.4 mg capsule 0.4 mg PO DAILY 01/10/22 01/10/22 Allergies Allergy/AdvReac Type Severity Reaction Status Date / Time bee venom protein (honey bee) Allergy Unknown Swelling Verified 01/10/22 11:52 No Known Drug Allergies Allergy Unknown Other Verified 01/10/22 11:52 [facility] Past Medical History Medical History Adenocarcinoma, lung Non-small cell carcinoma diagnosed June 2018. Follows with Dr. Baez and Dr. Cavazos; underwent radiation therapy from 12/05/2018 to 12/18/2018 and he says he is in remission. Anxiety Atrial fibrillation S/p cardiac ablation by Dr. Tom Oakley at 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 Followed by Dr. Parson at [facility] last seen around December 2018. Chronic pain syndrome Due to chronic lower back pain after complications with lower spinal fusion 2009. COPD (chronic obstructive pulmonary disease) History of DVT (deep vein thrombosis) Right upper extremity DVT and bilateral PE December 2018 for which he took Xarelto for several months. History of pulmonary embolism December 2018 Hypertension Reports he is no longer on medications for such. Mass of lung Peripheral neuropathy Seasonal allergies Surgical History Surgical History History of appendectomy In the History of carpal tunnel release Left 2011 History of elbow surgery Left elbow ulnar neurolysis History of lumbar fusion Anterior and posterior L4-S1 fusion 2009 Hx of cholecystectomy In the Family History Family History Father Acute myocardial infarction Pulmonary embolism Sibling Breast cancer Mother Family history of chronic obstructive pulmonary disease Social History Social History Social History: Mr. Garay is and lives at home with his children in [place]. 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 He denies significant alcohol use, drinks socially. Smoked 2 packs per day of cigarettes x 40 years and quit [place] 2017. Denies other substance use. Long-term
[2022-01-15 04:01] VITALS: BP 106/65; RESP 20
[2022-01-15] MEDS: KETOROLAC 30 MG/ML VIAL (*BKC) IM (04:15)
--- NOTE | 2022-01-15 04:22 | PC.NURSE ---
Pt and his stated they are not happy with the care the Dr. provided regarding pain medications. The and pt stated that they feel the dr is treating the pt like he is drug seeking Charge nurse Adilia was notified of this information at this time
--- NOTE | 2022-01-15 04:23 | ED.GENADULT ---
HPI - General Adult General Chief complaint: Unspecified Stated complaint: low back/hip pain, cancer pt Time Seen by Provider: 01/15/22 03:27 Related Data Home Medications Medication Instructions Recorded Confirmed duloxetine 30 mg capsule,delayed 30 mg PO HS 11/07/19 01/10/22 release duloxetine 60 mg capsule,delayed 60 mg PO DAILY 11/07/19 01/10/22 release pregabalin 225 mg capsule 225 mg PO BID 11/07/19 01/10/22 triamcinolone acetonide 0.1 % 1 applic topical QID PRN Acne 11/07/19 01/10/22 topical cream albuterol sulfate 90 mcg/actuation 1 inh inhalation TID PRN Wheezing 09/09/20 01/10/22 aerosol inhaler cholecalciferol (vitamin D3) 1,250 1,250 mcg PO WEEKLY 09/09/20 01/10/22 mcg (50,000 unit) capsule oxycodone 30 mg tablet,crush 40 mg PO BID 09/09/20 01/10/22 resistant,extended release 12 hr (OxyContin) tizanidine 4 mg tablet 4 tablet PO BID 12/29/21 01/10/22 fentanyl 50 mcg/hr transdermal 1 patch transdermal Q72H 01/10/22 01/10/22 patch tamsulosin 0.4 mg capsule 0.4 mg PO DAILY 01/10/22 01/10/22 Allergies Allergy/AdvReac Type Severity Reaction Status Date / Time bee venom protein (honey bee) Allergy Unknown Swelling Verified 01/10/22 11:52 No Known Drug Allergies Allergy Unknown Other Verified 01/10/22 11:52 [facility] Past Medical History Medical History Adenocarcinoma, lung Non-small cell carcinoma diagnosed June 2018. Follows with Dr. Baez and Dr. Cavazos; underwent radiation therapy from 12/05/2018 to 12/18/2018 and he says he is in remission. Anxiety Atrial fibrillation S/p cardiac ablation by Dr. Tom Oakley at 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 Followed by Dr. Parson at [facility] last seen around December 2018. Chronic pain syndrome Due to chronic lower back pain after complications with lower spinal fusion 2009. COPD (chronic obstructive pulmonary disease) History of DVT (deep vein thrombosis) Right upper extremity DVT and bilateral PE December 2018 for which he took Xarelto for several months. History of pulmonary embolism December 2018 Hypertension Reports he is no longer on medications for such. Mass of lung Peripheral neuropathy Seasonal allergies Surgical History Surgical History History of appendectomy In the History of carpal tunnel release Left 2011 History of elbow surgery Left elbow ulnar neurolysis History of lumbar fusion Anterior and posterior L4-S1 fusion 2009 Hx of cholecystectomy In the Family History Family History Father Acute myocardial infarction Pulmonary embolism Sibling Breast cancer Mother Family history of chronic obstructive pulmonary disease Social History Social History Social History: Mr. Garay is and lives at home with his children in [place]. 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 He denies significant alcohol use, drinks socially. Smoked 2 packs per day of cigarettes x 40 years and quit [place] 2018. Denies other substance use. Long-term opioid use due to chronic back pain. Ambulates without a cane or walker at home. Designates his ex-, Edna, to be his surrogate decision maker. Wishes to be full code status. His PCP is Dr. Torres. Smoking packs per day: 2 Smoking cigarettes per day: 40.0 Years smoked: 40 Smoking pack-years: 80.00 Smoking status: Former smoker Tobacco type: cigarettes Second hand tobacco smoke exposure: No Smoking end date: 06/18/17 Alcohol intake: never Substance use: never Substance use type: does not use Gender identity (if verbalized by the patient): Male Sexual Orientation (if Verbalized by the Patient): Straight or Heterosexual Spiritual
== END 2022-01-15 04:38 | disposition home or self-care (01) ==
PROVIDERS: Emergency Provider Emergency Medicine; PCP Family Medicine
DX: G89.4 Chronic pain syndrome (principal); M54.50 Low back pain, unspecified; R05.9 Cough, unspecified; C34.91 Malignant neoplasm of unspecified part of right bronchus or lung; J44.9 Chronic obstructive pulmonary disease, unspecified; I48.91 Unspecified atrial fibrillation; N40.0 Benign prostatic hyperplasia without lower urinary tract symptoms; G62.9 Polyneuropathy, unspecified; Z86.711 Personal history of pulmonary embolism; Z86.718 Personal history of other venous thrombosis and embolism; Z98.1 Arthrodesis status; Z87.891 Personal history of nicotine dependence; Z92.21 Personal history of antineoplastic chemotherapy
CPT/HCPCS: 71046; 82948; 96372; 99283; J1885

== ENCOUNTER 2022-01-16 02:18 | Day surgery (SDC) | payer MEDICARE, MEDICAID, SELFPAY ==
[2022-01-10 11:56] VITALS: BMI 27.8
--- NOTE | 2022-01-10 12:31 | PC.NURSE ---
Report to the Outpatient Waiting Room, entrance under the green pavilion located off [facility], at time 1100 on date 01/16/22. OR Time: 1300. - You and your visitor will be asked a series of questions to screen for COVID 19 for your protection. - Only one visitor is allowed at this time. - The patient visitor is requested to leave or wait in car when not with patient. - A mask is required within the hospital. Patients may have clear liquids (water, carbonated beverages, clear teas, apple juice) until 3 hours prior to surgery with a maximum of 20 ounces. - No food from midnight until time of surgery Take the following medications with a SIP of water the morning of surgery: INHALER (IF NEEDED), ANTIBIOTICS, DEXAMETHASONE, DULOXETINE, PAIN PILLS (IF NEEDED), PREGABALIN. TIZANIDINE Medications to discontinue per physician: VITAMIN Date to take last dose: DO NOT TAKE SUNDAY DOSE UNTIL AFTER SURGERY Please no make-up, nail romansh, hairspray, perfume, deodorant, or body powder the day of surgery. No jewelry (including any body piercings) or valuables the day of surgery, leave them at home. Please take a shower or bath the night before, or the morning of, surgery with an antibacterial soap. Wear comfortable, loose fitting clothing. - Jewelry must be removed prior to entering the operating room. Rings and piercings that are not removed may be cut off. - The hospital will not accept responsibility for valuables. - Please leave all valuables, including medications, at home the day of surgery. If you are going home after surgery, a licensed sulky driver must drive you home. - NO public transportation without another adult. - We recommend that an adult stay with you for 24 hours following discharge. - We also recommend that you do not drive, make important decision, drink alcoholic beverages, or take any drugs that were not prescribed by your health care provider for at least 24 hours after your discharge time. Follow any additional instructions given to you from your surgeon. If you or anyone in your household have experienced Covid symptoms in the past week, please notify your surgeon or the nurse liaison at the phone number below for possible testing. Telephone instructions given to PT - JUDE GUAJARDO and asked if any additional questions and then verbalized understanding. Patient advised to call surgeon office or pre surgery nurse liaison [phone] if any additional questions.
--- NOTE | 2022-01-13 14:33 | WPDANESEPPF ---
Anes - Initial Pre Proc Eval Procedure: Operation Date: 01/16/22 10:30 Proposed Procedures p Insertion Mary Cath - Yanick Carranza DO Date/Time: 01/13/22 14:33 Surgeon: Yanick Carranza DO Pre Op Diagnosis: non small cell cancer right lung Patient Data Age: 61 Gender: M Height: 1.83 m Weight: 92.99 kg Allergies Allergy/AdvReac Type Severity Reaction Status Date / Time bee venom protein (honey bee) Allergy Unknown Swelling Verified 01/10/22 11:52 Home Medications Medication Instructions Recorded Confirmed Type duloxetine 30 mg capsule,delayed 30 mg PO HS 11/07/19 01/16/22 History release duloxetine 60 mg capsule,delayed 60 mg PO DAILY 11/07/19 01/16/22 History release pregabalin 225 mg capsule 225 mg PO BID 11/07/19 01/16/22 History triamcinolone acetonide 0.1 % 1 applic topical QID PRN Acne 11/07/19 01/16/22 History topical cream albuterol sulfate 90 mcg/actuation 1 inh inhalation TID PRN Wheezing 09/09/20 01/16/22 History aerosol inhaler cholecalciferol (vitamin D3) 1,250 1,250 mcg PO WEEKLY 09/09/20 01/16/22 History mcg (50,000 unit) capsule oxycodone 30 mg tablet,crush 40 mg PO BID 09/09/20 01/16/22 History resistant,extended release 12 hr (OxyContin) tizanidine 4 mg tablet 4 tablet PO BID 12/29/21 01/16/22 History hydrocodone 5 mg-acetaminophen 325 1 tablet PO Q4H PRN Pain Rated 4-6 01/01/22 01/16/22 Rx mg tablet 10 days #30 tabs fentanyl 50 mcg/hr transdermal 1 patch transdermal Q72H 01/10/22 01/16/22 History patch tamsulosin 0.4 mg capsule 0.4 mg PO DAILY 01/10/22 01/16/22 History Patient hx anesthesia problems: none Family hx anesthesia problems: none Results Review: All pre-operative results and documents have been reviewed as part of the pre-operative evaluation. [facility] Past Medical History Medical History Adenocarcinoma, lung Non-small cell carcinoma diagnosed June 2018. Follows with Dr. Baez and Dr. Cavazos; underwent radiation therapy from 12/05/2018 to 12/18/2018 and he says he is in remission. Anxiety Atrial fibrillation S/p cardiac ablation by Dr. 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 Followed by Dr. Parson at [facility] last seen around December 2018. Chronic pain syndrome Due to chronic lower back pain after complications with lower spinal fusion 2009. COPD (chronic obstructive pulmonary disease) History of DVT (deep vein thrombosis) Right upper extremity DVT and bilateral PE December 2018 for which he took Xarelto for several months. History of pulmonary embolism December 2018 Hypertension Reports he is no longer on medications for such. Mass of lung Peripheral neuropathy Seasonal allergies Surgical History Surgical History History of appendectomy In the History of carpal tunnel release Left 2011 History of elbow surgery Left elbow ulnar neurolysis History of lumbar fusion Anterior and posterior L4-S1 fusion 2009 Hx of cholecystectomy In the Family History Family History Father Acute myocardial infarction Pulmonary embolism Sibling Breast cancer Mother Family history of chronic obstructive pulmonary disease Social History Social History Social History: Mr. Garay is and lives at home with his children in [place]. 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 He denies significant alcohol use, drinks socially. Smoked 2 packs per day of cigarettes x 40 years and quit [place] 2017. Denies other substance use. Long-term opioid use due to chronic back pain. Ambulates without a cane or walker at home. Designates his ex-, Edna, to be his surrogate decision maker. Wishes to be
[2022-01-16] VITALS (9 sets, daily range): BP systolic 108–131; BP diastolic 53–83; PULSE 79–114; RESP 5–20; TEMP 36.1–36.2; O2SAT 95–100
--- NOTE | ~2022-01-16 | XR_ITS ---
XR chest port-a-cath/central DATE: 01/16/2022 13:17 INDICATION: Port-A-Cath insertion TECHNIQUE: Portable supine AP view on 01/16/2022 at 1310 hours COMPARISON: 01/15/2022 PA and lateral chest 12/29/2021 CT pulmonary scan FINDINGS: Prominent mass density and infiltrate, right upper lobe. Normal heart size. Status post sternotomy. Left internal jugular Port-A-Cath catheter, with tip overlying the lower aspect of superior vena cava near superior cavoatrial junction. No pneumothorax. Status post cholecystectomy. Osteopenia. IMPRESSION: Left Port-A-Cath catheter placement, tip overlying the lower superior vena cava Reviewed, dictated and finalized at Location [facility]. Reviewed, dictated and finalized at location B. IMPRESSION: Left Port-A-Cath catheter placement, tip overlying the lower superi or vena cava
--- NOTE | ~2022-01-16 | XR_ITS ---
EXAMINATION: XR fl guide central line place DATE: 01/16/2022 12:58 INDICATION: Port placement. TECHNIQUE: 4 intraoperative fluoroscopic views of the chest were obtained. I was not present. Fluoros copy exposure time was 20 seconds. COMPARISON: Chest single view 01/16/2022 FINDINGS: There is a left internal jugular port with tip at superior cavoatrial junction. Partially v isualized is a right upper lobe mass, consistent with primary bronchogenic carcinoma. IMPRESSION: 1. Port tip at superior cavoatrial junction. Reviewed, dictated and finalized at location A.
[2022-01-16] MEDS: LACTATED RINGERS 1,000 ML 30 ML IV CONT (09:00)
[2022-01-16 09:31] LABS: Partial Thromboplastin Time 35.7 SECONDS (22.3-36.8)
[2022-01-16] MEDS: KETOROLAC 15 MG/ML VIAL (*BKC) IV PUSH (11:03)
--- NOTE | 2022-01-16 12:12 | WPDHPUPDATE1 ---
History and Physical Update Update Date/Time: 01/16/22 12:12 History and Physical has been reviewed, including an updated exam of the patient. There are NO changes in the patient's condition. Risks, benefits, and alternatives have been discussed and questions answered. Patient agrees to proceed with procedure.
--- NOTE | 2022-01-16 12:12 | PM.IMHP ---
H&P: HPI History of Present Illness Date/Time: 01/16/22 12:12 Chief Complaint: right lung cancer Narrative: 61 yo man presents for portacath placement for right lung cancer. He was diagnosed 3 years ago and had already undergone radiation. He hasn't needed chemo prior to this but is planning to undergo radiation and chemo. Review of Systems Review of Systems: All systems reviewed & are unremarkable except as noted in HPI and below Constitutional: Constitutional: Denies chills, Denies fever(s), Denies headache(s) and Denies weight loss Eyes: Eyes: Denies change in vision ENT: Denies dizziness, Denies headache(s), Denies neck mass and Denies throat swelling Cardiovascular: Cardiovascular: Denies chest pain, Denies lightheadedness and Denies dyspnea Respiratory: Respiratory: Denies cough, Denies dyspnea and Denies wheezing Gastrointestinal: Gastrointestinal: Denies abdominal pain, Denies change in bowel habits, Denies nausea and Denies vomiting Genitourinary: Genitourinary: Denies hematuria and Denies dysuria Musculoskeletal: Musculoskeletal: Reports as per HPI Integumentary/Breasts: Skin/Breast: Reports as per HPI Neurologic: Denies dizziness and Denies headache(s) Allergic/Immunologic: Allergic/Immunologic: Denies throat swelling and Denies wheezing [facility] Past Medical History Medical History Adenocarcinoma, lung Non-small cell carcinoma diagnosed June 2018. Follows with Dr. Baez and Dr. Cavazos; underwent radiation therapy from 12/05/2018 to 12/18/2018 and he says he is in remission. Anxiety Atrial fibrillation S/p cardiac ablation by Dr. 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 Followed by Dr. Parson at [facility] last seen around December 2018. Chronic pain syndrome Due to chronic lower back pain after complications with lower spinal fusion 2009. COPD (chronic obstructive pulmonary disease) History of DVT (deep vein thrombosis) Right upper extremity DVT and bilateral PE December 2018 for which he took Xarelto for several months. History of pulmonary embolism December 2018 Hypertension Reports he is no longer on medications for such. Mass of lung Peripheral neuropathy Seasonal allergies Surgical History Surgical History History of appendectomy In the History of carpal tunnel release Left 2011 History of elbow surgery Left elbow ulnar neurolysis History of lumbar fusion Anterior and posterior L4-S1 fusion 2010 Hx of cholecystectomy In the Family History Family History Father Acute myocardial infarction Pulmonary embolism Sibling Breast cancer Mother Family history of chronic obstructive pulmonary disease Social History Social History Social History: Mr. Garay is and lives at home with his children in [place]. 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 He denies significant alcohol use, drinks socially. Smoked 2 packs per day of cigarettes x 40 years and quit [place] 2018. Denies other substance use. Long-term opioid use due to chronic back pain. Ambulates without a cane or walker at home. Designates his ex-, Edna, to be his surrogate decision maker. Wishes to be full code status. His PCP is Dr. Torres. Smoking packs per day: 2 Smoking cigarettes per day: 40.0 Years smoked: 40 Smoking pack-years: 80.00 Smoking status: Former smoker Tobacco type: cigarettes Second hand tobacco smoke exposure: No Smoking end date: 06/18/17 Alcohol intake: never Substance use: never Substance use type: does not use Living arrangements: with family Gender identity (if verbalized by the patient): Male Sexual Orientation (if Verbali
[2022-01-16] MEDS: ceFAZolin 2 GM/D5W 50 ML 2 GM/50 ML BAG IVPB (12:15)
[2022-01-16] MEDS: HEPARIN SODIUM 5,000 UNITS/ML VIAL 5000 UNITS IRRIGATION (12:52)
[2022-01-16] MEDS: HEPARIN SODIUM, PORCINE 10,000 UNITS/10 ML VIAL 2000 UNITS IV PUSH (12:54)
[2022-01-16] MEDS: LIDO 1%/EPINEPHRINE 1:100,000 50 ML VIAL 13 ML INFILTRATE (12:55)
--- NOTE | 2022-01-16 12:59 | W.PM.PROC2 ---
Procedure Note - Detailed Date of Procedure 01/16/22 Pre-op Diagnosis non small cell cancer right lung Post-op Diagnosis Same Procedure Performed Left Internal Jugular tunneled Port-a-Cath placement using ultrasound and fluoroscopic guidance Surgeon Yanick Carranza, DO Anesthesia MAC and Local (0.5% bupivicaine with epinephrine) Indications This is a 61-year-old man who presents with right lung cancer. He was diagnosed 3 years ago and has previously undergone radiation therapy. He recently found recurrence and is in need of port placement to initiate chemotherapy. Findings SonoSite ultrasound was used to identify the left internal jugular vein. This was visualized as a compressible vessel just lateral to the pulsatile carotid artery. An 18 gauge introducer needle was advanced under ultrasound guidance directly into the lumen of the internal jugular vein. Dark nonpulsatile blood was aspirated. Fluoroscopy was then used to guide advancement of the guidewire followed by the dilator and sheath. The final fluoroscopic images demonstrated the catheter tip in the distal SVC and no kinks along its path. Description of Procedure Procedure as well as risks, benefits, and alternatives were discussed with patient. Written consent was obtained and placed in chart prior to procedure. Patient was brought back to surgical suite. Was placed supine on operating table. Time-out was done confirm patient procedure. IV sedation was then administered by the Anesthesia Department. The chest and neck area was prepped and draped in sterile fashion using chlorhexidine prep. Patient was placed in Trendelenburg position. SonoSite ultrasound was used to identify the left internal jugular vein. It was visualized as a compressible vessel just lateral to the carotid artery. 1% lidocaine with epinephrine was infiltrated directly over the vessel under ultrasound guidance. An 18 gauge introducer needle was then advanced under ultrasound guidance directly into the left internal jugular vein. Dark nonpulsatile blood was aspirated. A 0.035 in guidewire was then advanced through the needle under fluoroscopic guidance. The guidewire was visualized advancing all the way down into the superior vena cava. 1% lidocaine with epinephrine was then infiltrated on the left anterior chest and along the tract up to the guidewire insertion site. A 3 cm incision was made with a 15 blade scalpel, and electrocautery was then used for dissection down through the subcutaneous tissue to the pectoral fascia. A pocket was created just inferior to the incision using blunt dissection. A small dru incision was then also made at the insertion site at the neck. The tunneler was then advanced from the chest incision up to the neck incision and the catheter tubing was brought up through this tract. The dilator and sheath were then advanced over the guidewire under fluoroscopic visualization. The dilator and guidewire were then removed leaving the sheath in place. The catheter tubing was then advanced through the sheath under fluoroscopic guidance. The sheath was unsnapped and carefully peeled away. The catheter tubing was released underneath the neck incision. Fluoroscopy was used to confirm proper placement of the catheter tubing and no kinks along its path. The catheter was then cut to proper length and secured to the port. The port was then accessed with a Abel needle and aspirated and flushed with heparinized saline. The port function with ease. The port was then hep-locked with Hep-Lock solution. The port was then placed within the pocket that was created, and was secured to the fascia using 3 0 Prolene simple interrupted sutures. The patient was flattened out in bed. Emigdio's fascia was reapproximated using 3 0 Vicryl simple interrupted sutures. The skin of the incisions was then approximated using 4-0 Monocryl subcuticular suture. Exofin glue was then applied on top. The patient was then awak
[2022-01-16] MEDS: oxyCODONE HCL (*CRX) 5 MG TAB IR PO (14:15)
== END 2022-01-16 14:51 | disposition home or self-care (01) ==
PROVIDERS: PCP Family Medicine; Visit Provider Surgery
PROC: (CPT 36561; principal; 2022-01-16 10:30)
DX: C34.91 Malignant neoplasm of unspecified part of right bronchus or lung (principal); Z92.3 Personal history of irradiation; Z79.51 Long term (current) use of inhaled steroids; F41.9 Anxiety disorder, unspecified; N40.0 Benign prostatic hyperplasia without lower urinary tract symptoms; D15.1 Benign neoplasm of heart; I48.91 Unspecified atrial fibrillation; J44.9 Chronic obstructive pulmonary disease, unspecified; Z86.718 Personal history of other venous thrombosis and embolism; Z86.711 Personal history of pulmonary embolism; I10 Essential (primary) hypertension; G62.9 Polyneuropathy, unspecified; Z87.891 Personal history of nicotine dependence
CPT/HCPCS: 36561; 36415; 77001; 85730; A9270; C1788; J0690; J1644; J1885; J2250; J2405; J2704; J3010; J7040; J7120

== ENCOUNTER 2022-01-17 12:23 | Outpatient (CLI) | payer MEDICARE, MEDICAID, SELFPAY ==
--- NOTE | ~2022-01-17 | CT_ITS ---
EXAMINATION: CT brain wo con DATE: 01/17/2022 12:54 INDICATION: Convulsions, unspecified. TECHNIQUE: Computed tomography (CT) of the head was performed without intravenous contrast. The mA wa s adjusted according to patient size. Iterative reconstruction technique was employed. The dose-lengt h product was 605.33 mGy-cm. COMPARISON: Head CT 05/13/2021 FINDINGS: There is no intracranial hemorrhage, acute infarction, or abnormal intracranial mass lesion . The ventricles are normal in size. The orbits are normal. There is mild mucosal thickening in the p aranasal sinuses. The mastoid air cells are normal. There is a large permeative lytic lesion in the s kull on the right with aggressive periosteal reaction. IMPRESSION: 1. Large permeative lytic lesion in the skull on the right with aggressive periosteal reaction, consi stent with metastatic disease. Reviewed, dictated and finalized at location A. IMPRESSION: 1. Large permeative lytic lesion in the skull on the right with aggressive louise osteal reaction, consistent with metastatic disease.
== END 2022-01-17 12:24 | disposition home or self-care (01) ==
PROVIDERS: PCP Family Medicine; Visit Provider Internal Medicine Hematology & Oncology
DX: R56.9 Unspecified convulsions (principal); G93.89 Other specified disorders of brain
CPT/HCPCS: 70450

== ENCOUNTER 2022-02-24 11:39 | Outpatient (CLI) | payer MEDICARE, MEDICAID, SELFPAY ==
--- NOTE | 2022-02-24 | ECHO_ITS ---
Patient Info Name: Jn Garay Age: 61 years : 1960 Gender: Male Ht: 72 in Wt: 193 lbs BSA: 2.12 m2 HR: 102 bpm BP: 142 / 79 mmHg Heart Rhythm: Sinus Rhythm Technical Quality: Fair Exam Date: 02/24/2022 12:58 PM Exam Location: [facility] Pul[facility] Patient Status: Outpatient Admit Date: 02/24/2022 Staff Ordering Physician: Kieran Og Parts Salesperson: Oksana Zuñiga RDCS Attending Provider: Kieran Og Exam Type: CA echo doppler w bubble study Study Info Complete two-dimensional, color flow and Doppler transthoracic echocardiogram is performed with agitated saline. Contrast/Agitated Saline Contrast/Ag. Saline: Agitated Saline Amount: --- ml Administered By: Tammy Leon RDCS New IV Access: Inner Forearm and Left Site Condition: IV removed Summary 1. Left ventricular chamber dimension is normal. 2. Left ventricular systolic function is normal, estimated at 55-60%. 3. The left ventricular diastolic function is abnormal. 4. E/e' 10 is mildly elevated. 5. There is mild aortic valve sclerosis. 6. There is trace mitral valve regurgitation. 7. There is trace tricuspid valve regurgitation. Left Ventricle E/e' 10 is mildly elevated. Left ventricular chamber dimension is normal. Left ventricular systolic function is normal, estimated at 55-60%. The left ventricular diastolic function is abnormal. Right Ventricle Right ventricular systolic function is normal and with normal TAPSE 1.8 cm. Right ventricular chamber dimension is normal. Left Atria Left atrial chamber dimension is normal. Right Atria Right atrial chamber dimension is normal. Atrial Septum Agitated saline injection with and without valsalva maneuver opacified right side cardiac chambers without shunt to left side cardiac chambers. Intact interatrial septum visualized by 2D and agitated saline imaging. Aortic Valve The aortic valve is trileaflet. There is mild aortic valve sclerosis. There is no aortic valve stenosis. There is no aortic valve regurgitation. Pulmonic Valve There is no pulmonic regurgitation. Mitral Valve There is no mitral valve stenosis. There is trace mitral valve regurgitation. Tricuspid Valve There is trace tricuspid valve regurgitation. RVSP is not calculated due to an inadequate TR jet. Pericardium/Pleural There is no pericardial effusion. Inferior Vena Cava Normal inferior vena cava with >50% collapse upon inspiration consistent with normal right atrial pressure, 5 mmHg. Aorta The aortic root size at the sinus of Valsalva is normal. Left Ventricular Outflow Tract Name Value Normal LVOT 2D LVOT Diameter 1.7 cm LVOT Doppler LVOT Peak Gradient 5 mmHg LVOT Mean Gradient 2 mmHg LVOT VTI 24 cm LVOT VTI/AV VTI Ratio 0.6 LVOT Stroke Volume 56 ml LVOT CO 4.4 l/min LVOT CI 2.1 l/min/m2 Pulmonic Valv
== END 2022-02-24 11:40 | disposition home or self-care (01) ==
LOC: ANHCARD 11:44
PROVIDERS: PCP Family Medicine
DX: I47.1 Supraventricular tachycardia (principal); R93.1 Abnormal findings on diagnostic imaging of heart and coronary circulation
CPT/HCPCS: 93306; 96375

== ENCOUNTER 2022-04-22 11:14 | Inpatient (IN) | payer MEDICARE, MEDICAID, SELFPAY ==
[2022-04-22] VITALS (11 sets, daily range): BP systolic 106–133; BP diastolic 44–72; PULSE 78–127; RESP 8–19; TEMP 36.1; O2SAT 93–99; BMI 24.9
--- NOTE | ~2022-04-22 | XR_ITS ---
XR chest 1V portable DATE: 04/22/2022 11:59 INDICATION: Cough, sweating TECHNIQUE: Portable upright AP chest on 04/22/2022 1152 hours COMPARISON: 01/16/2022 portable AP chest 12/29/2021 CT pulmonary scan FINDINGS: There is prominent right upper lobe patchy consolidation with mild right upper lobe atelect asis. There is superior bowing of the minor fissure. There is mild elevation and tenting of the right diaphragm. Minimal blunting of the costophrenic angl es which might represent minimal pleural effusions. Normal heart size. Status post sternotomy. Left internal jugular Port-A-Cath catheter tip is situated in the lower aspect of the superior vena c yovani. Diffuse osteopenia. IMPRESSION: Persistent right upper lobe atelectasis and patchy consolidation Left Port-A-Cath Reviewed, dictated and finalized at location A.
--- NOTE | ~2022-04-22 | XR_ITS ---
EXAMINATION: XR chest 1V portable DATE: 04/26/2022 06:10 INDICATION: Interstitial lung disease versus pneumonia TECHNIQUE: frontal view of the chest was obtained. COMPARISON: Chest radiograph and CT dated 04/22/2022 FINDINGS: Slight interval increase in patchy consolidation in the right mid to upper lung zone. More prominent increase in less dense patchy airspace opacities in the left mid to upper lung zone. Unchanged tentin g along the right hemidiaphragm. No pleural effusion or pneumothorax. Size is normal. Median sternoto my wires. Left internal jugular central venous port catheter with distal tip at the midsuperior vena cava. IMPRESSION: 1. Increasing opacities in the bilateral mid and upper lung zones most concerning for pneumonia. Reviewed, dictated and finalized at location A. ASSESSOR IMPRESSION: 1. Increasing opacities in the bilateral mid and upper lung zones most concerni ng for pneumonia.
--- NOTE | ~2022-04-22 | CT_ITS ---
EXAMINATION: CTA chest PE protocol DATE: 04/22/2022 13:19 INDICATION: Shortness of breath. Dyspnea. History of pulmonary embolism. History of lung cancer metas tatic to lymph nodes and bone TECHNIQUE: Computed tomography angiography (CTA) of the chest was performed with 100 mL Omnipaque-350 intravenous contrast timed to evaluate the pulmonary arteries. Coronal maximum intensity projection 3D-reconstructions were created by the technologist. Automated exposure control and iterative reconst ruction technique were employed. Exam dose: 488.84 mGy-cm total exam DLP. COMPARISON: 04/22/2022 portable AP chest 12/29/2021 CT pulmonary scan FINDINGS: There is diminished size of the large right posterior perihilar lung mass since 12/29/2021. Residual tumor and extensive surrounding right upper lobe and superior segment right lower lobe infil trate are noted. There is mild right pleural effusion. There are patchy groundglass infiltrates scattered in the left upper lobe and right lower lobe. Normal heart size. No pericardial effusion. No thoracic aortic aneurysm or dissection. No pulmonary embolism is detected. Status post sternotomy. There are scattered osteosclerotic lesions of the cervical and thoracic spine, suggesting metastatic disease. Consider lung and possibly prostate skeletal metastasis. IMPRESSION: No evidence of pulmonary embolism Diminished size of right posterior perihilar lung mass since 12/29/2021. There is extensive infiltrate in the right upper lobe and superior segment right lower lobe and there are scattered patchy groundg lass infiltrates in the right lower lobe and particularly left upper lobe No evidence of pulmonary embolism Osteoblastic skeletal metastases; consider prostate cancer skeletal metastases in addition to lung ca ncer metastases Reviewed, dictated and finalized at Location A. Reviewed, dictated and finalized at location A. IMPRESSION: No evidence of pulmonary embolism Diminished size of right posterior perihilar lung mass since 12/29/2021. There i s extensive infiltrate in the right upper lobe and superior segment right lower lobe and there are scattered patchy groundglass infiltrates in the right lower lobe and particularly left upper lobe No evidence of pulmonary embolism Osteoblastic skeletal metastases; consider prostate cancer skeletal metastases in addition to lung cancer metastases
--- NOTE | ~2022-04-22 | NM_ITS ---
EXAMINATION: NM bone scan whole body DATE: 04/25/2022 15:02 INDICATION: Bone metastases TECHNIQUE: 26.1 mCi Tc-99m HDP was administered intravenously. Delayed whole-body scintigrams were o btained. COMPARISON: Prior bone scan dated 12/30/2021 and PET/CT dated 01/12/2022 FINDINGS: Decreased intensity but otherwise no overall change in number, size or extent of multiple foci of inc reased uptake in the axial and appendicular skeleton, the largest in the right calvarium. The decreas ed intensity could be due to interval response to treatment but could also be simply artifact of diff erences in technique. No new or enlarging lesions identified to suggest progression of disease. Incre ased joint centered activity at the knees as well as at the elbows which are without radiographic cor relate and statistically more likely related to osteoarthritis rather than metastatic disease. Linear pattern of a few small foci of increased uptake along the midline of the sternum corresponding to a still reasonably ununited median sternotomy. IMPRESSION: 1. No interval change in number extent of multiple foci of increased uptake in the axial and appendic ular skeleton consistent with metastatic disease. No new lesions identified. Reviewed, dictated and finalized at location A. LIGHTER IMPRESSION: 1. No interval change in number extent of multiple foci of increased uptake in the axial and appendicular skeleton consistent with metastatic disease. No new lesions identified.
--- NOTE | 2022-04-22 11:29 | ECG_ITS ---
Measurements Intervals [place] Rate: 109 P: 269 DE: 124 QRS: 63 QRSD: 74 T: 62 QT: 340 QTc: 459 Interpretive Statements ECTOPIC ATRIAL TACHYCARDIA FREQUENT VENTRICULAR PREMATURE COMPLEXES BASELINE ARTIFACT- I, II, III, AVR, AVL, AVF ABNORMAL ECG COMPARED TO ECG 12/30/2021 09:36:01 ECTOPIC ATRIAL TACHYCARDIA NOW PRESENT FREQUENT VENTRICULAR PREMATURE COMPLEXES NOW PRESENT Electronically Signed On 04-22-2022 12:26:21 CDT by Charles Zhou D.O.
--- NOTE | 2022-04-22 11:40 | ED.GENADULT ---
HPI - General Adult General Chief complaint: Shortness of Breath/Dyspnea Stated complaint: SHORT OF BREATH STAGE IV LUNG CA WEAK Time Seen by Provider: 04/22/22 11:19 Source: RN notes reviewed History of Present Illness HPI narrative: Patient presents emergency room from home for shortness of breath. Patient states he been having creasing shortness of breath for the past 1 week. States been associate with a cough this been nonproductive. Patient states that with this he has been feeling generally weak. He denies any fevers or chills rhinorrhea, sore throat chest pain abdominal pain nausea vomiting or any other symptoms. The patient does have a history of stage IV lung cancer recently went through radiation therapy and is followed by Dr. Baez for chemotherapy. He is due for a PET scan next week Related Data Home Medications Medication Instructions Recorded Confirmed duloxetine 30 mg capsule,delayed 30 mg PO HS 11/07/19 02/28/22 release duloxetine 60 mg capsule,delayed 60 mg PO DAILY 11/07/19 02/28/22 release pregabalin 225 mg capsule 225 mg PO BID 11/07/19 02/28/22 triamcinolone acetonide 0.1 % 1 applic topical QID PRN Acne 11/07/19 02/28/22 topical cream albuterol sulfate 90 mcg/actuation 1 inh inhalation TID PRN Wheezing 09/09/20 02/28/22 aerosol inhaler cholecalciferol (vitamin D3) 1,250 1,250 mcg PO WEEKLY 09/09/20 02/28/22 mcg (50,000 unit) capsule oxycodone 30 mg tablet,crush 40 mg PO BID 09/09/20 02/28/22 resistant,extended release 12 hr (OxyContin) tizanidine 4 mg tablet 4 tablet PO PRN PRN Muscle Pain 12/29/21 02/28/22 fentanyl 50 mcg/hr transdermal 1 patch transdermal Q72H 01/10/22 02/28/22 patch tamsulosin 0.4 mg capsule 0.4 mg PO DAILY 01/10/22 02/28/22 budesonide 160 mcg-glycopyr 9 inh inhalation 04/22/22 mcg-formot 4.8 mcg/actuation HFA inhaler (Breztri Aerosphere) docusate sodium 100 mg capsule mg PO 04/22/22 furosemide 40 mg tablet mg 04/22/22 ibandronate 150 mg tablet mg PO 04/22/22 metoprolol tartrate 25 mg tablet mg 04/22/22 osimertinib 80 mg tablet (Tagrisso) mg 04/22/22 oxycodone 5 mg tablet mg 04/22/22 Allergies Allergy/AdvReac Type Severity Reaction Status Date / Time bee venom protein (honey bee) Allergy Unknown Swelling Verified 04/22/22 11:34 Review of Systems Review of Systems: Gen.: Denies fevers or chills ENT: Denies congestion Respiratory: See HPI CV: Denies chest pain or palpitations GI: Denies abdominal pain nausea, emesis or diarrhea Musculoskeletal: Denies back pain or muscle pain Neuro: Denies numbness, tingling, reports generalized weakness Skin: Denies rash Except as documented, all other systems reviewed and negative [facility] Past Medical History Medical History Adenocarcinoma, lung Non-small cell carcinoma diagnosed June 2018. Follows with Dr. Baez and Dr. Cavazos; underwent radiation therapy from 12/05/2018 to 12/18/2018 and he says he is in remission. Anxiety Atrial fibrillation S/p cardiac ablation by Dr. 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 Followed by Dr. Parson at [facility] last seen around December 2018. Chronic pain syndrome Due to chronic lower back pain after complications with lower spinal fusion 2009. COPD (chronic obstructive pulmonary disease) History of DVT (deep vein thrombosis) Right upper extremity DVT and bilateral PE December 2018 for which he took Xarelto for several months. History of pulmonary embolism December 2018 Hypertension Reports he is no longer on medications for such. Mass of lung Peripheral neuropathy Seasonal allergies Surgical History Surgical History History of appendectomy In the s History of carpal tunnel release Left 2010 History of elbow surgery Left elbow ulnar neurolysis History of lum
[2022-04-22] MEDS: SODIUM CHLORIDE 0.9% IV 1,000 ML 999 ML IV CONT (11:52)
[2022-04-22 12:05] LABS: Basophils Percent Auto 0.5 % (0.2-1.2); Eosinophils Absolute Auto 0.2 K/mm3 (0-0.3); Eosinophils Percent Auto 5.2 % (0-4.4); Hematocrit 33.7 % (42.0-52.0); Immature Granulocyte Absolute 0.01 K/mm3 (0.00-0.031); Immature Granulocyte Percent A 0.2 % (0-0.5); Immature Platelet Fraction Pct 4.9 % (0.9-11.2); Lymphocytes Absolute Auto 1.04 K/mm3 (0.9-3.2); Lymphocytes Percent Auto 24.6 % (18.3-44.2); Mean Corpuscular HGB Conc 29.7 g/dl (32-36); Mean Corpuscular Hemoglobin 23.9 pg (26-34); Mean Corpuscular Volume 80.6 fl (80-100); Mean Platelet Volume 10.7 fl (7.4-10.4); Monocytes Absolute Auto 0.4 K/mm3 (0.1-0.6); Neutrophils Absolute Auto 2.6 K/mm3 (1.3-6.7); Neutrophils Percent Auto 60.5 % (45.5-73.1); Platelet Count Result 199 k/mm3 (150-375); Red Blood Count 4.18 M/mm3 (4.6-6.20); Red Cell Distribution Width 17.1 % (11.5-14.5); White Blood Count 4.2 K/mm3 (4.5-10.0)
[2022-04-22 12:14] LABS: Alanine Aminotransferase 12 U/L (6-50); Albumin Level 3.5 g/dL (3.5-5.1); Alkaline Phosphatase 83 U/L (38-126); Anion Gap 11 mmol/L (8-16); Aspartate Amino Transferase 20 U/L (17-59); Bilirubin,Total 0.5 mg/dL (0.2-1.3); Blood Urea Nitrogen 13 mg/dL (9-20); Calcium 8.3 mg/dL (8.4-10.2); Carbon Dioxide 26 mmol/L (22-30); Chloride 103 mmol/L (98-107); Estimated CRCL calculation 84 ml/min; Estimated Glomerular Filt Rate > 60; Glucose 120 mg/dL (65-110); Lactic Acid Reflex 1.1 mmol/L (0.7-2.0); Magnesium 2.2 mg/dL (1.6-2.3); Potassium 3.2 mmol/L (3.4-5.0); Sodium 140 mmol/L (137-145)
[2022-04-22 12:18] LABS: INR 1.1; Prothrombin Time 13.8 Seconds (11.1-14.7)
[2022-04-22 12:19] LABS: Partial Thromboplastin Time 26.3 SECONDS (22.3-36.8)
[2022-04-22 12:22] LABS: NT Pro B Type Natriuretic Pept 255 pg/mL (5-100)
[2022-04-22 12:40] LABS: Influenza A QL RT-PCR Negative (Negative); Influenza B QL RT-PCR Negative (Negative); SARS-CoV-2 RNA PCR Negative
[2022-04-22] MEDS: POTASSIUM CHLORIDE 20 MEQ TABLET PO (12:42)
[2022-04-22 12:51] LABS: Anisocytosis 1+ (NORMAL); Ovalocytes 1+ (NORMAL); Platelet Estimate Adequate (Adequate); Poikilocytosis 1+ (NORMAL); Schistocytes 1+ (NORMAL)
[2022-04-22 12:52] LABS: Hypochromasia 1+ (NORMAL)
[2022-04-22] MEDS: PIPERACILLIN/TAZOBACTAM SOD 4.5 GM in SODIUM CHLORIDE 0.9% IV 100 ML 200 ML IVPB ×2 (14:14→20:17)
--- NOTE | 2022-04-22 16:00 | PM.IMHP ---
H&P: HPI History of Present Illness Date/Time: 04/22/22 16:00 Chief Complaint: Weakness and shortness of breath. Narrative: This is a pleasant 61-year-old male with history of DVT and pulmonary embolism, metastatic non-small cell lung cancer, chronic pain syndrome, COPD, and atrial myxoma status post resection who presented to the emergency department from home for evaluation of weakness and shortness of breath. He was initially diagnosed with lung cancer arising in the right upper lobe in June 2018 for which he received radiation. His cancer recurred in summer 2021 and he underwent further radiation treatments and he is now on daily Tagrisso. Since his recurrence he has felt generally weak and he has chronic dyspnea on exertion and a chronic, nonproductive cough. Over the past 1 week however he has felt worse than normal with progressive dyspnea on lesser and lesser exertion and increasing weakness. He has not been eating or drinking much though he denies overt nausea and he has not had any vomiting or diarrhea. He had a fall couple of weeks ago and today he had difficulties even getting up and about and he decided to come in for evaluation. He was afebrile on arrival with stable vital signs. Labs were significant for mild neutropenia, stable anemia, and a potassium of 3.2. Given his shortness of breath and known malignancy he was sent for CTA of the chest which showed no evidence of pulmonary embolism but did show findings of presumed to pneumonia and he is being admitted in this setting. He denies fever, chills, sweats, headache, sinus congestion, sore throat, chest pain, pleuritic pain, nausea, vomiting, and diarrhea. Review of Systems Review of Systems: Twelve systems were reviewed. No sick contacts. No chest pain, pleuritic pain, or palpitations though he did wear an event monitor of couple of weeks ago for intermittent tachycardia. He does not think that he had atrial fibrillation (status post cardiac ablation many years ago) though the event monitor showed that he had tachycardia 6% of the time. He has chronic back pain stemming from injuries in 2008 he has been seeing Pain Management since that time. He has had increasing pain due to skeletal metastases and is now on and fentanyl patch as well. Unfortunately his pain does not seem to be well controlled and he is supposed to be set up with palliative care soon. Except as documented, all other systems were reviewed and are negative. [facility] Past Medical History Medical History (Updated 04/22/22 @ 20:50 by Traci Dawn PA-C) Adenocarcinoma, lung Non-small cell carcinoma diagnosed June 2018. Follows with Dr. Baez and Dr. Cavazos; underwent radiation therapy from 12/05/2018 to 12/18/2018 and again in fall 2021 due to recurrence. Now with metastatic disease to lymph nodes and bone. Anxiety Atrial fibrillation S/p cardiac ablation by Dr. 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 Followed by Dr. Parson at [facility] last seen around December 2018. Chronic pain syndrome Due to chronic lower back pain after complications with lower spinal fusion 2009. COPD (chronic obstructive pulmonary disease) History of DVT (deep vein thrombosis) Right upper extremity DVT and bilateral PE December 2018 for which he took Xarelto for several months. History of pulmonary embolism December 2018 Hypertension Reports he is no longer on medications for such. Mass of lung Peripheral neuropathy Seasonal allergies Surgical History Surgical History (Updated 04/22/22 @ 20:45 by Traci Dawn PA-C) History of appendectomy In the History of carpal tunnel release Left 2011 History of elbow surgery Left elbow ulnar neurolysis History of lumbar fusion Anterior and posterior L4-S1 fusion 2009 History of open heart surgery Status post resection of atrial myxoma. Hx of cholecystectomy In the Family History
[2022-04-22] MEDS: SODIUM CHLORIDE 0.9% IV 1,000 ML 80 ML IV CONT (17:36)
--- NOTE | 2022-04-22 17:52 | ADMGEN ---
This patient, Jn Garay, was admitted to [facility] Surg Room 325-02. Patient/family oriented to hospital policies and general routines including ID bracelet, bed and alarms, visiting hours, pain management, procedures, bathroom and other care routines, personal items, smoking policy, room service/diet, and visiting hours. Information on how to activate the Rapid Response Team has been discussed. Patient/Family are encouraged to report perceived risks to care and to ask questions if they do not understand what they are told or what they should do.
[2022-04-22] MEDS: oxyCODONE HCL (*CRX) 5 MG TAB IR PO (22:11)
[2022-04-22] MEDS: PREGABALIN (*CRX) 75 MG CAPSULE 225 MG PO (22:11)
[2022-04-23] MEDS: METOPROLOL TARTRATE 12.5 MG TABLET PO (00:59)
[2022-04-23] MEDS: oxyCODONE HCL (*CRX) 20 MG TAB SR 12HR 40 MG PO ×3 (00:59→20:24)
[2022-04-23] MEDS: DULoxetine HCL 30 MG CAPSULE.DR PO ×2 (00:59→20:24)
--- NOTE | 2022-04-23 01:12 | PC.NURSE ---
Daylight Savings Time For Daylight Savings Time Ending in the Fall - Clocks are moved back. For Daylight Savings Time Beginning in the Spring - Clocks are moved ahead. For [facility], the time of change occurs at 0200 hrs. Time is taken from the sql server dba developer. This entry on the patient's chart recognizes the change in time reflected during documentation. Example: 2 entries for vital signs may be charted for 0200 hrs.
[2022-04-23] MEDS: PIPERACILLIN/TAZOBACTAM SOD 4.5 GM in SODIUM CHLORIDE 0.9% IV 100 ML 200 ML IVPB ×4 (01:32→20:24)
[2022-04-23 06:00] VITALS: BP 107/70; PULSE 86; RESP 20; TEMP 36.2; O2SAT 94
[2022-04-23] MEDS: FLUTICASONE/UMECLIDIN/VILANTER 100-62.5-25 MCG ELLIPTA 1 PUFF INHALATION (08:06)
[2022-04-23] MEDS: TAMSULOSIN HCL 0.4 MG CAPSULE PO (09:22)
[2022-04-23] MEDS: LORazepam (*CRX) 0.5 MG TABLET PO (09:22)
[2022-04-23] MEDS: DULoxetine HCL 60 MG CAPSULE.DR PO (09:22)
[2022-04-23] MEDS: PREGABALIN (*CRX) 75 MG CAPSULE 225 MG PO ×2 (09:22→17:00)
[2022-04-23] MEDS: SODIUM CHLORIDE 0.9% IV 1,000 ML 80 ML IV CONT (09:25)
[2022-04-23 09:26] LABS: Basophils Percent Auto 0.4 % (0.2-1.2); Eosinophils Absolute Auto 0.2 K/mm3 (0-0.3); Eosinophils Percent Auto 5.4 % (0-4.4); Hematocrit 35.2 % (42.0-52.0); Hemoglobin 10.3 g/dL (14.0-18.0); Immature Granulocyte Absolute 0.01 K/mm3 (0.00-0.031); Immature Granulocyte Percent A 0.2 % (0-0.5); Lymphocytes Absolute Auto 1.09 K/mm3 (0.9-3.2); Lymphocytes Percent Auto 24.3 % (18.3-44.2); Mean Corpuscular HGB Conc 29.3 g/dl (32-36); Mean Corpuscular Hemoglobin 23.8 pg (26-34); Mean Corpuscular Volume 81.3 fl (80-100); Mean Platelet Volume 10.2 fl (7.4-10.4); Monocytes Absolute Auto 0.3 K/mm3 (0.1-0.6); Monocytes Percent Auto 7.4 % (2.6-8.5); Neutrophils Absolute Auto 2.8 K/mm3 (1.3-6.7); Neutrophils Percent Auto 62.3 % (45.5-73.1); Platelet Count Result 188 k/mm3 (150-375); Red Blood Count 4.33 M/mm3 (4.6-6.20); White Blood Count 4.5 K/mm3 (4.5-10.0)
[2022-04-23 09:40] LABS: Alanine Aminotransferase 15 U/L (6-50); Albumin Level 3.6 g/dL (3.5-5.1); Alkaline Phosphatase 88 U/L (38-126); Anion Gap 12 mmol/L (8-16); Aspartate Amino Transferase 21 U/L (17-59); Bilirubin,Total 0.4 mg/dL (0.2-1.3); Blood Urea Nitrogen 9 mg/dL (9-20); Calcium 8.1 mg/dL (8.4-10.2); Carbon Dioxide 23 mmol/L (22-30); Chloride 106 mmol/L (98-107); Estimated CRCL calculation 84 ml/min; Estimated Glomerular Filt Rate > 60; Glucose 102 mg/dL (65-110); Magnesium 2.3 mg/dL (1.6-2.3); Potassium 3.9 mmol/L (3.4-5.0); Sodium 141 mmol/L (137-145)
[2022-04-23 09:55] LABS: Platelet Estimate Adequate (Adequate)
[2022-04-23 09:56] LABS: Anisocytosis 1+ (NORMAL); Ovalocytes 1+ (NORMAL); Schistocytes None Seen (NORMAL)
[2022-04-23 09:58] LABS: Poikilocytosis 1+ (NORMAL)
--- NOTE | 2022-04-23 10:12 | PM.CNPUL ---
Assessment and Plan Assessment and plan (1) Lung cancer: Code(s): C34.90 - Malignant neoplasm of unspecified part of unspecified bronchus or lung Status: Acute (2) Pneumonia: Code(s): J18.9 - Pneumonia, unspecified organism Status: Acute Assessment and Plan: This 61-year-old man with a history of metastatic adenocarcinoma status post radiation therapy to right lung completed approximately 7 weeks ago, on treatment with an EGFR tyrosine receptor inhibitor presented with a subacute illness characterized by dry cough and progressively increasing shortness of breath. On chest CT there is an extensive infiltrate in the right upper lobe with few patches in the left upper lobe and also small pleural effusion on right. On closer review the infiltrate is characterized by ground-glass infiltrates with evidence of interlobular septal thickening. The patient has no fever hemoptysis or sputum production that would suggest acute pneumonia. The differential diagnosis includes acute radiation pneumonitis and also pneumonitis related to osimertinib. the latter is highly likely given presence of similar patchy infiltrates outside the radiation field, i.e. the left upper lobe. Plan: will get a sputum for culture. I would hold osimertinib at this point and start the patient empirically on IV steroids. Continue with current antibiotic regimen for now. Have added DVT prophylaxis. (3) Peripheral neuropathy: Code(s): G62.9 - Polyneuropathy, unspecified Status: Acute (4) Anxiety: Code(s): F41.9 - Anxiety disorder, unspecified Status: Acute (5) Adenocarcinoma, lung: Qualifiers: Laterality: right Qualified Code(s): C34.91 - Malignant neoplasm of unspecified part of right bronchus or lung Code(s): C34.90 - Malignant neoplasm of unspecified part of unspecified bronchus or lung Status: Chronic (6) COPD (chronic obstructive pulmonary disease): Qualifiers: COPD type: COPD with acute exacerbation Qualified Code(s): J44.1 - Chronic obstructive pulmonary disease with (acute) exacerbation Code(s): J44.9 - Chronic obstructive pulmonary disease, unspecified Status: Chronic (7) Post-radiation pneumonitis: Code(s): J70.0 - Acute pulmonary manifestations due to radiation Status: Acute History of Present Illness History of Present Illness Consult date: 04/23/22 Chief complaint: Pneumonia I suspect postobstructive, lung cancer Narrative: this 61-year-old man with history of lung cancer presented with increasing shortness of breath. The patient was diagnosed with inoperable early stage non small cell lung adenocarcinoma in the right upper lobe in 2019. The patient was treated with SBRT between late November 2018 and early December 2018. Early this year the patient was diagnosed with relapse of his lung cancer which was now metastatic to right supraclavicular, right hilar and mediastinal nodes as well as m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s for which he underwent palliative radiation therapy to the lung between February 16 through March 10 of this year. For the last 3 months he has been on treatment with an EGFR tyrosine receptor antagonist, osimertinib. approximately 6 weeks ago the patient noted a drop in his oxyhemoglobin saturation measured daily at home. He has had a chronic cough but over the last 2-3 weeks the cough has increased in intensity. Cough is mostly dry. Over the last 2 weeks, he noticed increasing shortness of breath. He has had no fever chills hemoptysis or chest pain. Over the same period he noticed some night sweats. he has got history of COPD and has been on maintenance bronchodilators. He quit smoking approximately 3 years ago. On admission his chest x-ray showed worsening infiltrates primarily in the right upper lobe. In comparison with a chest x-ray done in January of this year there has been volume loss on the right and a small pleural effusi
--- NOTE | 2022-04-23 10:31 | PM.IMPN ---
Progress Note: A&P Assessment and Plan (1) Metastatic non-small cell lung cancer: Code(s): C34.90 - Malignant neoplasm of unspecified part of unspecified bronchus or lung Status: Acute (2) Postobstructive pneumonia: Code(s): J18.9 - Pneumonia, unspecified organism Status: Acute (3) Lung cancer: Code(s): C34.90 - Malignant neoplasm of unspecified part of unspecified bronchus or lung Status: Acute (4) BPH (benign prostatic hyperplasia): Qualifiers: Lower urinary tract symptom presence: symptoms absent Qualified Code(s): N40.0 - Benign prostatic hyperplasia without lower urinary tract symptoms Code(s): N40.0 - Benign prostatic hyperplasia without lower urinary tract symptoms Status: Acute (5) Chronic anemia: Code(s): D64.9 - Anemia, unspecified Status: Acute (6) Chronic pain syndrome: Code(s): G89.4 - Chronic pain syndrome Status: Acute (7) Hypokalemia: Code(s): E87.6 - Hypokalemia Status: Acute (8) Post-radiation pneumonitis: Code(s): J70.0 - Acute pulmonary manifestations due to radiation Status: Acute Plan 04/22/22 The patient presented to the emergency department with complaints of increasing weakness and shortness of breath over the past 1 week. CTA of the chest ruled out pulmonary embolism but did note extensive infiltrates in the right lung as detailed above. Due to concerns for postobstructive pneumonia he is being admitted for IV antibiotics. Sputum to be attempted for culture. He was negative for influenza and SARS-CoV-2 by PCR. Bronchodilators available p.r.n.. Potassium will be replaced and monitored. His anemia is stable on review of previous labs. No acute bronchospasm on exam today. Continue fentanyl patch and oxycodone for cancer related pain and chronic back pain respectively. Care coordination consulted to help set up palliative care at home and advanced directives.? At this time the patient wishes to remain a full code. He is having some anxiety thus will order small dose Ativan as needed while in the hospital. 04/23/22 hold osimertinib start empiric IV steroids.? Continue abx DVT prophylaxis initiated supportive intermediate O2 eval am labs Subjective Date/time seen: 04/23/22 10:31 pt doing ok seen by Pulm and concern for radiation pneumonitis is greater than post obstructive PNA. steroids recommended. pt understands POC and agrees. he is waiting to see Dr Baez. would like to see if he qualifies for home O2 states that with just minimal ambulation he loses his breath Review of Systems Review of Systems: All systems reviewed & are unremarkable except as noted in HPI and below Exam Narrative: ?GENERAL APPEARANCE: Well developed, well nourished, alert and cooperative, and appears to be in no acute distress? SKIN: Inspection of the skin reveals no rashes, ulcerations or petechiae. HEENT: Sclerae anicteric and conjunctivae? pink and moist. Extraocular movements were intact NECK: Supple. There was no thyroid enlargement, and no tenderness, or masses were felt. CHEST: Normal AP diameter and normal contour without any kyphoscoliosis. LUNGS: Auscultation of the lungs revealed? bibasliar turbulent air flow L>R CARDIAC: There was a regular rate and rhythm ABDOMEN: Soft and nontender with normal bowel sounds. EXTREMITIES: No cyanosis,? or edema.? Mild clubbing NEUROLOGIC: Alert and oriented x 3. PSYCH: affect and mood congruent . Objective Data Vital Signs Vital Signs: Vital Signs - 24 hr 04/22/22 11:33 04/22/22 12:22 04/22/22 12:31 Temperature Pulse Rate 114 H 87 87 Respiratory Rate 11 L 15 Blood Pressure 106/69 111/66 Pulse Oximetry 97 96 04/22/22 13:00 04/22/22 13:20 04/22/22 13:31 Temperature Pulse Rate 78 81 80 Respiratory Rate 10 L 11 L 16 Blood Pressure 113/67 127/61 118/62 Pulse Oximetry 97 97 96 04/22/22 14:00 04/22/22 16:55 04/22/22 22:00 Temperatur
[2022-04-23] MEDS: methylPREDNISolone SOD SUCC 125 MG VIAL 80 MG IV PUSH (13:08)
[2022-04-23 14:26] VITALS: BP 120/79; PULSE 114; RESP 16; TEMP 36.7; O2SAT 93
[2022-04-23] MEDS: SODIUM CHLORIDE 0.9% IV 100 ML 80 ML (20:25)
[2022-04-23 22:00] VITALS: BP 121/88; PULSE 102; RESP 18; TEMP 35.9; O2SAT 96
[2022-04-24] VITALS (11 sets, daily range): BP systolic 101–123; BP diastolic 56–63; PULSE 51–108; RESP 12–18; TEMP 36.2–36.5; O2SAT 86–96
[2022-04-24] MEDS: PIPERACILLIN/TAZOBACTAM SOD 4.5 GM in SODIUM CHLORIDE 0.9% IV 100 ML 200 ML IVPB ×4 (02:38→20:33)
[2022-04-24 03:20] LABS: Anion Gap 14 mmol/L (8-16); Blood Urea Nitrogen 9 mg/dL (9-20); Calcium 8.2 mg/dL (8.4-10.2); Carbon Dioxide 22 mmol/L (22-30); Chloride 104 mmol/L (98-107); Estimated CRCL calculation 106 ml/min; Estimated Glomerular Filt Rate > 60; Glucose 183 mg/dL (65-110); Magnesium 2.3 mg/dL (1.6-2.3); Potassium 3.7 mmol/L (3.4-5.0); Sodium 140 mmol/L (137-145)
[2022-04-24 03:25] LABS: Vancomycin Trough 12.9 ug/mL (10.0-20.0)
[2022-04-24] MEDS: TAMSULOSIN HCL 0.4 MG CAPSULE PO (07:59)
[2022-04-24] MEDS: METOPROLOL TARTRATE 12.5 MG TABLET PO ×2 (07:59→16:54)
[2022-04-24] MEDS: PREGABALIN (*CRX) 75 MG CAPSULE 225 MG PO ×2 (07:59→16:48)
[2022-04-24] MEDS: oxyCODONE HCL (*CRX) 20 MG TAB SR 12HR 40 MG PO ×2 (07:59→20:33)
[2022-04-24] MEDS: ENOXAPARIN 40 MG/0.4 ML SYRINGE SUB-Q (08:00)
[2022-04-24] MEDS: DULoxetine HCL 60 MG CAPSULE.DR PO (08:01)
[2022-04-24] MEDS: SODIUM CHLORIDE 0.9% IV 1,000 ML 80 ML IV CONT (08:07)
[2022-04-24] MEDS: FLUTICASONE/UMECLIDIN/VILANTER 100-62.5-25 MCG ELLIPTA 1 PUFF INHALATION (08:09)
--- NOTE | 2022-04-24 08:33 | PM.IMPN ---
Progress Note: A&P Assessment and Plan (1) Metastatic non-small cell lung cancer: Code(s): C34.90 - Malignant neoplasm of unspecified part of unspecified bronchus or lung Status: Acute (2) Lung cancer: Code(s): C34.90 - Malignant neoplasm of unspecified part of unspecified bronchus or lung Status: Acute (3) BPH (benign prostatic hyperplasia): Qualifiers: Lower urinary tract symptom presence: symptoms absent Qualified Code(s): N40.0 - Benign prostatic hyperplasia without lower urinary tract symptoms Code(s): N40.0 - Benign prostatic hyperplasia without lower urinary tract symptoms Status: Acute (4) Chronic anemia: Code(s): D64.9 - Anemia, unspecified Status: Acute (5) Chronic pain syndrome: Code(s): G89.4 - Chronic pain syndrome Status: Acute (6) Hypokalemia: Code(s): E87.6 - Hypokalemia Status: Acute (7) Pneumonia: Code(s): J18.9 - Pneumonia, unspecified organism Status: Acute Plan 04/22/22 The patient presented to the emergency department with complaints of increasing weakness and shortness of breath over the past 1 week. CTA of the chest ruled out pulmonary embolism but did note extensive infiltrates in the right lung as detailed above. Due to concerns for postobstructive pneumonia he is being admitted for IV antibiotics. Sputum to be attempted for culture. He was negative for influenza and SARS-CoV-2 by PCR. Bronchodilators available p.r.n.. Potassium will be replaced and monitored. His anemia is stable on review of previous labs. No acute bronchospasm on exam today. Continue fentanyl patch and oxycodone for cancer related pain and chronic back pain respectively. Care coordination consulted to help set up palliative care at home and advanced directives.? At this time the patient wishes to remain a full code. He is having some anxiety thus will order small dose Ativan as needed while in the hospital. 04/23/22 hold osimertinib start empiric IV steroids.? Continue abx DVT prophylaxis initiated supportive senior living O2 eval am labs 04/24/22 seen by pulm again today radiation pneumonitis no longer considered working dx pt is being treated for COPD and PNA steroids duonebs and abx ordered pulm following cont current care seen by oncology recs continue to hold Tagrisso and resume Tagrisso upon recovery, bone scan for complete re-evaluation of his metastatic disease.? Patient will follow with Dr Baez as scheduled at the end of this month? Subjective Date/time seen: 04/24/22 08:33 pt doing ok has qualified for home O2 reports breathing improved but overall he does not feel better Review of Systems Review of Systems: All systems reviewed & are unremarkable except as noted in HPI and below Exam Narrative: ?GENERAL APPEARANCE: Well developed, well nourished, alert and cooperative, and appears to be in no acute distress? SKIN: Inspection of the skin reveals no rashes, ulcerations or petechiae. HEENT: Sclerae anicteric and conjunctivae? pink and moist. Extraocular movements were intact LUNGS: Auscultation of the lungs no crackles wheezes or rhonchi CARDIAC: regular rate and rhythm ABDOMEN: Soft and nontender with normal bowel sounds. EXTREMITIES: No cyanosis,? or edema.? Mild clubbing NEUROLOGIC: Alert and oriented x 3. PSYCH: affect and mood congruent . Objective Data Vital Signs Vital Signs: Vital Signs - 24 hr 04/23/22 14:26 04/23/22 20:00 04/23/22 22:00 Temperature 98.1 F 96.7 F L Pulse Rate 114 H 102 H Respiratory Rate 16 18 Blood Pressure 120/79 121/88 Pulse Oximetry 93 96 Oxygen Delivery Room Air 04/24/22 06:00 04/24/22 07:12 04/24/22 07:59 Temperature 97.5 F L Pulse Rate 51 L 100 Respiratory Rate 18 Blood Pressure 123/62 Pulse Oximetry 94 Oxygen Delivery Room Air 04/24/22 08:09 Temperature Pulse Rate Respiratory Rate Blood Pressure Pulse Oximetry 96 Oxy
[2022-04-24] MEDS: LORazepam (*CRX) 0.5 MG TABLET PO ×2 (08:46→20:41)
--- NOTE | 2022-04-24 09:31 | PM.PNPUL ---
Progress Note: A&P Assessment and Plan (1) Metastatic non-small cell lung cancer: Code(s): C34.90 - Malignant neoplasm of unspecified part of unspecified bronchus or lung Status: Acute Assessment and Plan: Patient with a history of metastatic adenocarcinoma status post SBRT 11/2018 with recurrence status post palliative radiotherapy completed 03/10/2022 and concurrent Tagrisso chemotherapy. Followed by Dr. Baez oncology. Patient now with a subacute illness associated with worsening oxygenation, shortness of breath, wheezing and a dry cough over the last 1.5 to 3 weeks. He has worsening infiltrates on his CT scan in the right upper lobe, superior segment RLL and minimal in posterior segment RLL and infiltrates in the left upper lobe. Influenza swab negative. COVID RT PCR study negative. Urine Legionella and urine pneumococcal antigens pending Etiology includes tagrisso related interstitial lung disease, radiation pneumonitis, and or infection. 04/23 Tagrisso DC. Initiated on vancomycin, Zosyn and Solu-Medrol 80 mg IV. 04/24 patient states his breathing feels normal, he has intermittent wheezing and his cough is worse than yesterday. Room air saturations are 94%. He is afebrile and has no fever or chills. His creatinine is 0.7. Will give Solu-Medrol 60 mg IV today. Will add IV Levaquin for atypical coverage and additional gram-negative coverage. I will order QuantiFERON gold, mycoplasma IgM, and extended respiratory viral pathogen panel. will follow with you. (2) COPD (chronic obstructive pulmonary disease): Qualifiers: COPD type: COPD with acute exacerbation Qualified Code(s): J44.1 - Chronic obstructive pulmonary disease with (acute) exacerbation Code(s): J44.9 - Chronic obstructive pulmonary disease, unspecified Status: Chronic Assessment and Plan: Gold Grade 2 group B COPD (last PFTs 08/05/2018 With FEV1 2.33 L, 66% predicted, air trapping, hyperinflation and normal DLCO with no bronchodilator response) on home breztri with no inpatient or outpatient exacerbations in the last year. He has no active wheezing at this time and I do not believe this is a COPD exacerbation. Continue trelegy 100/62.5/25 at 1 puff q.day. Subjective Date/time seen: 04/24/22 09:31 Interval history: 04/23/2022 new consult Narrative: ?this 61-year-old man with history of lung cancer presented with increasing shortness of breath.? The patient was diagnosed with? inoperable early stage non small cell lung? adenocarcinoma in the right upper lobe in 2018.? The patient was treated with SBRT between late November 2018 and early December 2018.? ? Early this year the patient was diagnosed with relapse of his lung cancer which was now metastatic to right supraclavicular, right hilar and mediastinal nodes as well as m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s for which he underwent palliative radiation therapy to the lung? between February 16 through March 10 of this year.? For the last 3 months he has been on treatment with an EGFR tyrosine receptor antagonist, osimertinib.? approximately 6 weeks ago the patient noted a drop in his oxyhemoglobin saturation measured daily at home.? He has had a chronic cough but over the last 2-3 weeks the cough has increased in intensity.? Cough is mostly dry.? Over the last 2 weeks, he noticed increasing shortness of breath.? He has had no fever chills hemoptysis or chest pain.? Over the same period he noticed some night sweats. he has got history of COPD and has been on maintenance bronchodilators.? He quit smoking approximately 3 years ago.? On admission his chest x-ray showed worsening infiltrates primarily in the right upper lobe.? In comparison with a chest x-ray done in January of this year there has been volume loss on the right and a small pleural effusion.? Chest CT showed extensive ground-glass infiltrates involving almost the entire right upper lobe. ? Also there are a few patchy infiltrates in the
--- NOTE | 2022-04-24 10:36 | HOMEO2EVAL ---
Evaluation was performed at [facility] Home Oxygen Evaluation RC: Home Oxygen (O2) Evaluation Start: 04/23/22 17:45 Freq: ONCE Status: Active Protocol: RPE Activity Type Activity Date Activity User E-sign Co-sign Detail Recorded Client Recorded Date Recorded By Document 04/24/22 10:00 [email or web address] [email or web address] 04/24/22 10:36 DJO Document 04/24/22 10:05 [email or web address] [email or web address] 04/24/22 10:36 DJO Document 04/24/22 10:10 [email or web address] [email or web address] 04/24/22 10:36 DJO Document 04/24/22 10:15 [email or web address] [email or web address] 04/24/22 10:36 DJO Document 04/24/22 10:30 [email or web address] [email or web address] 04/24/22 10:36 DJO 04/24/22 04/24/22 04/24/22 10:00 10:05 10:10 Home O2 Evaluation [Oxygen] -Test Phase Resting Exercise Exercise -Oxygen Delivery Room Air Room Air Nasal Cannula -Oxygen Flow Rate (L/min) 1 [Pulse Oximetry] -Pulse Oximetry (90-100 %) 94 86 L 88 L [Pulse Rate] -Pulse Rate (60-100 beats/min) 88 107 H 108 H [Exercise] -Ambulation Distance (feet) -Ambulation Distance (meters) [Charges] -Treatment Charges O2 Evaluation - Inpatient 04/24/22 04/24/22 10:15 10:30 Home O2 Evaluation [Oxygen] -Test Phase Exercise Resting -Oxygen Delivery Nasal Cannula Room Air -Oxygen Flow Rate (L/min) 2 [Pulse Oximetry] -Pulse Oximetry (90-100 %) 91 94 [Pulse Rate] -Pulse Rate (60-100 beats/min) 106 H 90 [Exercise] -Ambulation Distance (feet) 1,000 -Ambulation Distance (meters) 304.78 [Charges] -Treatment Charges
[2022-04-24] MEDS: methylPREDNISolone SOD SUCC 125 MG VIAL 60 MG IV PUSH (10:51)
[2022-04-24] MEDS: CALCIUM CARBONATE (TUMS) 500 MG (200 MG ELEMENTAL) PO (16:23)
--- NOTE | 2022-04-24 18:15 | PDONCCN ---
HPI - Date of Consult Date/Time: 04/24/22 18:15 Requesting Physician: Taylor Torres MD Primary Care Provider: Iona Torres, - Consult Narrative Reason for consult: Metastatic non-small cell lung cancer Narrative: Jn Garay is a 61 year old male metastatic non-small cell lung cancer. He was initially diagnosed with stage I A non-small cell lung cancer status post right upper lobe lung biopsy done in June 2018 and received SBRT treatment at that time. He subsequently developed enlarging right upper lobe lung mass with mediastinal lymphadenopathy. Bone scan showed multifocal bone metastasis. Patient had EGFR mutation and was started on Tagrisso on January 23, 2022. He also completed radiation therapy treatment to the right perihilar upper lobe mass on March 10, 2022. He came into the hospital with generalize tiredness and fatigue with worsening shortness of breath. He denies any fevers and chills. He has nonproductive cough. CT chest showed no evidence of pulmonary embolism but possibly pneumonia. Diminished size of right perihilar lung mass. Osteoblastic skeletal metastasis noted. Tagrisso was put on hold on April 23 due to concern of pulmonary side effects. Review of Systems - Review of Systems All systems reviewed & are unremarkable except as noted in HPI and bel - Neurologic Reports system reviewed and no additional complaints, except as documented PMF Medical History: Medical History (Last Updated 04/22/22 @ 20:45 by Traci Dawn PA-C) Adenocarcinoma, lung Non-small cell carcinoma diagnosed June 2018. Follows with Dr. Baez and Dr. Cavazos; underwent radiation therapy from 12/05/2018 to 12/18/2018 and again in fall 2021 due to recurrence. Now with metastatic disease to lymph nodes and bone. Anxiety Atrial fibrillation S/p cardiac ablation by Dr. 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 Followed by Dr. Parson at [facility] last seen around December 2018. Chronic pain syndrome Due to chronic lower back pain after complications with lower spinal fusion 2009. COPD (chronic obstructive pulmonary disease) History of DVT (deep vein thrombosis) Right upper extremity DVT and bilateral PE December 2018 for which he took Xarelto for several months. History of pulmonary embolism December 2018 Hypertension Reports he is no longer on medications for such. Mass of lung Peripheral neuropathy Seasonal allergies Surgical History: Surgical History (Last Updated 04/22/22 @ 20:45 by Traci Dawn PA-C) History of appendectomy In the History of carpal tunnel release Left 2011 History of elbow surgery Left elbow ulnar neurolysis History of lumbar fusion Anterior and posterior L4-S1 fusion 2009 History of open heart surgery Status post resection of atrial myxoma. Hx of cholecystectomy In the Family History: Family History (Last Reviewed 04/22/22 @ 20:45 by Traci Dawn PA-C) Father Acute myocardial infarction Pulmonary embolism Sibling Breast cancer Mother Family history of chronic obstructive pulmonary disease - Social History Social History: Social History (Last Updated 04/22/22 @ 20:46 by Traci Dawn PA-C) Gender Identity: Gender identity (if verbalized by the patient): Male Sexual Orientation: Sexual Orientation (if Verbalized by the Patient): Straight or Heterosexual Alcohol Use: Alcohol intake: never Substance Use: Substance use: never Substance use type: does not use Others: Spiritual care concerns: No Smoking Status: Smoking status: Former smoker Tobacco type: cigarettes Second hand tobacco smoke exposure: No Smoking end date: 06/18/17 Approximate Smoking End Date: 04/22/2019 Smoking Pack-years: Smoking packs per day: 2 Smoking cigarettes per day: 40.0 Year
[2022-04-24] MEDS: DULoxetine HCL 30 MG CAPSULE.DR PO (20:33)
[2022-04-24] MEDS: oxyCODONE HCL (*CRX) 5 MG TAB IR PO (22:47)
[2022-04-25] MEDS: PIPERACILLIN/TAZOBACTAM SOD 4.5 GM in SODIUM CHLORIDE 0.9% IV 100 ML 200 ML IVPB ×3 (02:51→17:39)
[2022-04-25] MEDS: SODIUM CHLORIDE 0.9% IV 1,000 ML 80 ML IV CONT ×2 (02:51→21:32)
[2022-04-25 06:00] VITALS: BP 108/66; PULSE 65; TEMP 36.4; O2SAT 94
[2022-04-25 06:59] LABS: Basophils Percent Auto 0.2 % (0.2-1.2); Hematocrit 26.8 % (42.0-52.0); Hemoglobin 8.2 g/dL (14.0-18.0); Immature Granulocyte Absolute 0.03 K/mm3 (0.00-0.031); Immature Granulocyte Percent A 0.5 % (0-0.5); Lymphocytes Absolute Auto 1.07 K/mm3 (0.9-3.2); Lymphocytes Percent Auto 17.2 % (18.3-44.2); Mean Corpuscular HGB Conc 30.6 g/dl (32-36); Mean Corpuscular Hemoglobin 23.8 pg (26-34); Mean Corpuscular Volume 77.9 fl (80-100); Monocytes Absolute Auto 0.4 K/mm3 (0.1-0.6); Monocytes Percent Auto 6.1 % (2.6-8.5); Neutrophils Absolute Auto 4.7 K/mm3 (1.3-6.7); Platelet Count Result 151 k/mm3 (150-375); Red Blood Count 3.44 M/mm3 (4.6-6.20); Red Cell Distribution Width 16.8 % (11.5-14.5); White Blood Count 6.2 K/mm3 (4.5-10.0)
[2022-04-25 07:05] LABS: Alanine Aminotransferase 11 U/L (6-50); Albumin Level 2.9 g/dL (3.5-5.1); Alkaline Phosphatase 61 U/L (38-126); Anion Gap 8 mmol/L (8-16); Aspartate Amino Transferase 18 U/L (17-59); Bilirubin,Total 0.3 mg/dL (0.2-1.3); Blood Urea Nitrogen 7 mg/dL (9-20); Calcium 7.8 mg/dL (8.4-10.2); Carbon Dioxide 25 mmol/L (22-30); Chloride 109 mmol/L (98-107); Estimated CRCL calculation 94 ml/min; Estimated Glomerular Filt Rate > 60; Glucose 98 mg/dL (65-110); Magnesium 2.4 mg/dL (1.6-2.3); Sodium 142 mmol/L (137-145)
--- NOTE | 2022-04-25 08:12 | PM.IMPN ---
Progress Note: A&P Assessment and Plan (1) Metastatic non-small cell lung cancer: Code(s): C34.90 - Malignant neoplasm of unspecified part of unspecified bronchus or lung Status: Acute (2) Lung cancer: Code(s): C34.90 - Malignant neoplasm of unspecified part of unspecified bronchus or lung Status: Acute (3) BPH (benign prostatic hyperplasia): Qualifiers: Lower urinary tract symptom presence: symptoms absent Qualified Code(s): N40.0 - Benign prostatic hyperplasia without lower urinary tract symptoms Code(s): N40.0 - Benign prostatic hyperplasia without lower urinary tract symptoms Status: Acute (4) Chronic anemia: Code(s): D64.9 - Anemia, unspecified Status: Acute (5) Chronic pain syndrome: Code(s): G89.4 - Chronic pain syndrome Status: Acute (6) Hypokalemia: Code(s): E87.6 - Hypokalemia Status: Acute (7) Pneumonia: Code(s): J18.9 - Pneumonia, unspecified organism Status: Acute Plan 04/22/22 The patient presented to the emergency department with complaints of increasing weakness and shortness of breath over the past 1 week. CTA of the chest ruled out pulmonary embolism but did note extensive infiltrates in the right lung as detailed above. Due to concerns for postobstructive pneumonia he is being admitted for IV antibiotics. Sputum to be attempted for culture. He was negative for influenza and SARS-CoV-2 by PCR. Bronchodilators available p.r.n.. Potassium will be replaced and monitored. His anemia is stable on review of previous labs. No acute bronchospasm on exam today. Continue fentanyl patch and oxycodone for cancer related pain and chronic back pain respectively. Care coordination consulted to help set up palliative care at home and advanced directives.? At this time the patient wishes to remain a full code. He is having some anxiety thus will order small dose Ativan as needed while in the hospital. 04/23/22 hold osimertinib start empiric IV steroids.? Continue abx DVT prophylaxis initiated supportive fci O2 eval am labs 04/24/22 seen by pulm again today radiation pneumonitis no longer considered primary working dx pt is being treated for COPD and PNA steroids duonebs and abx ordered pulm following cont current care seen by oncology recs continue to hold Tagrisso and resume Tagrisso upon recovery, bone scan for complete re-evaluation of his metastatic disease.? Patient will follow with Dr Baez as scheduled at the end of this month? 04/25/[address] Chapman today and his clarification is much appreciated the patient is suspected to have ID L and likely has pneumonia versus radiation pneumonitis He will be continued on steroids 10 days after discharge He will be continued on vanc Zosyn and Levaquin cont supportive care Anticipate discharge home tomorrow with his home oxygen 2 L at night on p.o. antibiotics which will be decided by Dr. Frias tomorrow after chest x-ray is reviewed in the morning Subjective Date/time seen: 04/25/22 08:12 Patient doing okay he is on room air feeling better today for Review of Systems Review of Systems: All systems reviewed & are unremarkable except as noted in HPI and below Exam Narrative: ?GENERAL APPEARANCE: Well developed, well nourished, alert and cooperative, and appears to be in no acute distress? SKIN: Inspection of the skin reveals no rashes, ulcerations or petechiae. HEENT: Sclerae anicteric and conjunctivae? pink and moist. Extraocular movements were intact LUNGS: symmetric chest rise no use of accessory muscles ABDOMEN: Soft and nontender with normal bowel sounds. EXTREMITIES: No cyanosis,? or edema.? Mild clubbing NEUROLOGIC: Alert and oriented x 3. PSYCH: affect and mood congruent . Objective Data Vital Signs Vital Signs: Vital Signs - 24 hr 04/24/22 09:10 04/24/22 10:00 04/24/22 10:05 Temperature Pulse Rate 88 107 H Resp
--- NOTE | 2022-04-25 08:37 | PM.PNPUL ---
Progress Note: A&P Assessment and Plan (1) Metastatic non-small cell lung cancer: Code(s): C34.90 - Malignant neoplasm of unspecified part of unspecified bronchus or lung Status: Acute Assessment and Plan: Patient with a history of metastatic adenocarcinoma status post SBRT 11/2018 with recurrence status post palliative radiotherapy completed 03/10/2022 and concurrent Tagrisso chemotherapy. Followed by Dr. Baez oncology. Patient now with a subacute illness associated with worsening oxygenation, shortness of breath, wheezing and a dry cough over the last 1.5 to 3 weeks. He has worsening infiltrates on his CT scan in the right upper lobe, superior segment RLL and minimal in posterior segment RLL and infiltrates in the left upper lobe. Influenza swab negative. COVID RT PCR study negative. Urine Legionella and urine pneumococcal antigens pending Etiology includes tagrisso related interstitial lung disease, radiation pneumonitis, and or infection. 04/23 Tagrisso DC. Initiated on vancomycin, Zosyn and Solu-Medrol 80 mg IV. 04/24 patient states his breathing feels normal, he has intermittent wheezing and his cough is worse than yesterday. Room air saturations are 94%. He is afebrile and has no fever or chills. His creatinine is 0.7. Will give Solu-Medrol 60 mg IV today. Will add IV Levaquin for atypical coverage and additional gram-negative coverage. I will order QuantiFERON gold, mycoplasma IgM, and extended respiratory viral pathogen panel. 04/25 Patient states that he is 90% better. He still has a persistent cough but his breathing is better. He is afebrile. Room air saturations 94%. Urine Legionella, urine pneumococcal antigen, QuantiFERON gold, mycoplasma IgM, and extended respiratory viral pathogen panel pending. Will give prednisone 60 mg p.o. q.day today for possible to growth so related interstitial lung disease and/or radiation pneumonitis. Continue vancomycin, Zosyn (both day 4) and levaquin (day 2) for possible bacterial pneumonia. will check chest x-ray in the morning. will follow with you. (2) COPD (chronic obstructive pulmonary disease): Qualifiers: COPD type: COPD with acute exacerbation Qualified Code(s): J44.1 - Chronic obstructive pulmonary disease with (acute) exacerbation Code(s): J44.9 - Chronic obstructive pulmonary disease, unspecified Status: Chronic Assessment and Plan: Gold Grade 2 group B COPD (last PFTs 08/05/2018 With FEV1 2.33 L, 66% predicted, air trapping, hyperinflation and normal DLCO with no bronchodilator response) on home breztri with no inpatient or outpatient exacerbations in the last year. 04/24 He has no active wheezing at this time and I do not believe this is a COPD exacerbation. Continue trelegy 100/62./25 at 1 puff q.day. 04/25 No active wheezing. Continue trelegy. Subjective Date/time seen: 04/25/22 08:37 Interval history: 04/23/2022 new consult Narrative: ?this 61-year-old man with history of lung cancer presented with increasing shortness of breath.? The patient was diagnosed with? inoperable early stage non small cell lung? adenocarcinoma in the right upper lobe in 2018.? The patient was treated with SBRT between late November 2018 and early December 2018.? ? Early this year the patient was diagnosed with relapse of his lung cancer which was now metastatic to right supraclavicular, right hilar and mediastinal nodes as well as m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s for which he underwent palliative radiation therapy to the lung? between February 16 through March 10 of this year.? For the last 3 months he has been on treatment with an EGFR tyrosine receptor antagonist, osimertinib.? approximately 6 weeks ago the patient noted a drop in his oxyhemoglobin saturation measured daily at home.? He has had a chronic cough but over the last 2-3 weeks the cough has increased in intensity.? Cough is mostly dry.? Over the last 2 weeks, he noticed increasin
[2022-04-25] MEDS: FLUTICASONE/UMECLIDIN/VILANTER 100-62.5-25 MCG ELLIPTA 1 PUFF INHALATION (10:03)
[2022-04-25 10:04] VITALS: O2SAT 90
[2022-04-25] MEDS: predniSONE 20 MG TABLET 60 MG PO (10:08)
[2022-04-25] MEDS: fentaNYL (*CRX) 50 MCG PATCH TRANSDERM (10:10)
[2022-04-25] MEDS: TAMSULOSIN HCL 0.4 MG CAPSULE PO (10:10)
[2022-04-25] MEDS: ENOXAPARIN 40 MG/0.4 ML SYRINGE SUB-Q (10:11)
[2022-04-25 10:13] VITALS: PULSE 87
[2022-04-25] MEDS: METOPROLOL TARTRATE 12.5 MG TABLET PO ×2 (10:13→17:31)
[2022-04-25] MEDS: oxyCODONE HCL (*CRX) 20 MG TAB SR 12HR 40 MG PO ×2 (10:22→20:54)
[2022-04-25] MEDS: PREGABALIN (*CRX) 75 MG CAPSULE 225 MG PO ×2 (10:22→17:37)
[2022-04-25] MEDS: DULoxetine HCL 60 MG CAPSULE.DR PO (11:40)
[2022-04-25] MEDS: LORazepam (*CRX) 0.5 MG TABLET PO ×2 (11:45→20:56)
[2022-04-25 14:00] VITALS: BP 139/81; PULSE 59; RESP 18; TEMP 35.8; O2SAT 95
[2022-04-25 17:31] VITALS: PULSE 70
[2022-04-25] MEDS: DULoxetine HCL 30 MG CAPSULE.DR PO (20:54)
[2022-04-25 21:24] VITALS: BP 128/61; PULSE 61; TEMP 36.9; O2SAT 96
[2022-04-26] MEDS: PIPERACILLIN/TAZOBACTAM SOD 4.5 GM in SODIUM CHLORIDE 0.9% IV 100 ML 200 ML IVPB ×3 (00:23→11:39)
[2022-04-26 05:20] VITALS: BP 111/68; PULSE 66; TEMP 36.1; O2SAT 93
[2022-04-26 06:39] LABS: Basophils Percent Auto 0.2 % (0.2-1.2); Hematocrit 29.6 % (42.0-52.0); Immature Granulocyte Absolute 0.02 K/mm3 (0.00-0.031); Immature Granulocyte Percent A 0.4 % (0-0.5); Lymphocytes Absolute Auto 0.97 K/mm3 (0.9-3.2); Mean Corpuscular HGB Conc 30.4 g/dl (32-36); Mean Corpuscular Hemoglobin 23.6 pg (26-34); Mean Corpuscular Volume 77.5 fl (80-100); Mean Platelet Volume 10.8 fl (7.4-10.4); Monocytes Absolute Auto 0.4 K/mm3 (0.1-0.6); Neutrophils Absolute Auto 4.3 K/mm3 (1.3-6.7); Neutrophils Percent Auto 75.4 % (45.5-73.1); Platelet Count Result 172 k/mm3 (150-375); Red Blood Count 3.82 M/mm3 (4.6-6.20); Red Cell Distribution Width 16.8 % (11.5-14.5); White Blood Count 5.7 K/mm3 (4.5-10.0)
[2022-04-26 06:56] LABS: Alanine Aminotransferase 15 U/L (6-50); Albumin Level 3.2 g/dL (3.5-5.1); Alkaline Phosphatase 62 U/L (38-126); Anion Gap 9 mmol/L (8-16); Aspartate Amino Transferase 17 U/L (17-59); Bilirubin,Total 0.3 mg/dL (0.2-1.3); Blood Urea Nitrogen 6 mg/dL (9-20); Calcium 7.8 mg/dL (8.4-10.2); Carbon Dioxide 23 mmol/L (22-30); Chloride 110 mmol/L (98-107); Estimated CRCL calculation 84 ml/min; Estimated Glomerular Filt Rate > 60; Glucose 100 mg/dL (65-110); Magnesium 2.3 mg/dL (1.6-2.3); Potassium 2.8 mmol/L (3.4-5.0); Sodium 142 mmol/L (137-145)
[2022-04-26] MEDS: POTASSIUM CHLORIDE 20 MEQ TABLET 40 MEQ PO ×3 (07:04→14:22)
[2022-04-26] MEDS: FLUTICASONE/UMECLIDIN/VILANTER 100-62.5-25 MCG ELLIPTA 1 PUFF INHALATION (08:29)
[2022-04-26 08:31] VITALS: O2SAT 92
[2022-04-26] MEDS: predniSONE 20 MG TABLET 60 MG PO (09:22)
[2022-04-26] MEDS: DULoxetine HCL 60 MG CAPSULE.DR PO (09:23)
[2022-04-26] MEDS: ENOXAPARIN 40 MG/0.4 ML SYRINGE SUB-Q (09:23)
[2022-04-26 09:25] VITALS: PULSE 89
[2022-04-26] MEDS: oxyCODONE HCL (*CRX) 20 MG TAB SR 12HR 40 MG PO (09:25)
[2022-04-26] MEDS: METOPROLOL TARTRATE 12.5 MG TABLET PO (09:25)
[2022-04-26] MEDS: TAMSULOSIN HCL 0.4 MG CAPSULE PO (09:26)
[2022-04-26] MEDS: PREGABALIN (*CRX) 75 MG CAPSULE 225 MG PO (09:26)
[2022-04-26] MEDS: LORazepam (*CRX) 0.5 MG TABLET PO (09:33)
--- NOTE | 2022-04-26 09:44 | PM.PNPUL ---
Progress Note: A&P Assessment and Plan (1) Metastatic non-small cell lung cancer: Code(s): C34.90 - Malignant neoplasm of unspecified part of unspecified bronchus or lung Status: Acute Assessment and Plan: Patient with a history of metastatic adenocarcinoma status post SBRT 11/2018 with recurrence status post palliative radiotherapy completed 03/10/2022 and concurrent Tagrisso chemotherapy. Followed by Dr. Baez oncology. Patient now with a subacute illness associated with worsening oxygenation, shortness of breath, wheezing and a dry cough over the last 1.5 to 3 weeks. He has worsening infiltrates on his CT scan in the right upper lobe, superior segment RLL and minimal in posterior segment RLL and infiltrates in the left upper lobe. Influenza swab negative. COVID RT PCR study negative. Urine Legionella and urine pneumococcal antigens pending Etiology includes tagrisso related interstitial lung disease, radiation pneumonitis, and or infection. 04/23 Tagrisso DC. Initiated on vancomycin, Zosyn and Solu-Medrol 80 mg IV. 04/24 patient states his breathing feels normal, he has intermittent wheezing and his cough is worse than yesterday. Room air saturations are 94%. He is afebrile and has no fever or chills. His creatinine is 0.7. Will give Solu-Medrol 60 mg IV today. Will add IV Levaquin for atypical coverage and additional gram-negative coverage. I will order QuantiFERON gold, mycoplasma IgM, and extended respiratory viral pathogen panel. 04/25 Patient states that he is 90% better. He still has a persistent cough but his breathing is better. He is afebrile. Room air saturations 94%. Urine Legionella, urine pneumococcal antigen, QuantiFERON gold, mycoplasma IgM, and extended respiratory viral pathogen panel pending. Will give prednisone 60 mg p.o. q.day today for possible to growth so related interstitial lung disease and/or radiation pneumonitis. Continue vancomycin, Zosyn (both day 4) and levaquin (day 2) for possible bacterial pneumonia. will check chest x-ray in the morning. 04/26 Patient states he is breathing back to his normal. His cough is normal and he has no sputum production. His dyspnea on exertion is back to his normal. He denies fever chills or sweats. His room air saturations are 95%. His white blood cell count is 5.7. Chest x-ray today demonstrates worsening bilateral upper lobe infiltrates. Although his chest x-ray is worse, clinically he is back to his baseline. From a pulmonary perspective he is ready for discharge on these pulmonary medications: Levaquin 750 mg PO Q day X 7 days Cefdinir 300 mg PO BID X 7 days Prednisone 40 mg PO Q day X3 days, 30 X 3 days, 20 mg X 3 days, 10 mg X 3 days then off. Breztri 160/9/4.8 at 2 puffs b.i.d. Albuterol 2 puffs q.4 hours p.r.n. shortness of breath or wheezing No oxygen at rest and 2 with exertion. Repeat chest x-ray in 2 weeks as an outpatient. Follow up in Pulmonary Clinic in 3-4 weeks. I gave him our business card and and formed our long term acute care registered nurse. Discussed with Dr. Chase, will sign off, call with questions. (2) COPD (chronic obstructive pulmonary disease): Qualifiers: COPD type: COPD with acute exacerbation Qualified Code(s): J44.1 - Chronic obstructive pulmonary disease with (acute) exacerbation Code(s): J44.9 - Chronic obstructive pulmonary disease, unspecified Status: Chronic Assessment and Plan: Gold Grade 2 group B COPD (last PFTs 08/05/2018 With FEV1 2.33 L, 66% predicted, air trapping, hyperinflation and normal DLCO with no bronchodilator response) on home breztri with no inpatient or outpatient exacerbations in the last year. 04/24 He has no active wheezing at this time and I do not believe this is a COPD exacerbation. Continue trelegy 100/62.11/09 at 1 puff q.day. 04/25 No active wheezing. Continue trelegy. 04/26 No wheezing, continue trelegy. Subjective Date/time seen: 04/26/22 09:4
[2022-04-26 12:24] LABS: Potassium 3.1 mmol/L (3.4-5.0)
[2022-04-26 12:33] LABS: Iron 25 ug/dL (49-181)
[2022-04-26 12:44] LABS: Percent Iron Saturation 9 % (20-50)
[2022-04-26 13:28] LABS: Pneumococcal Antigen Urine Not Detected (Not Detected)
--- NOTE | 2022-04-26 13:31 | PM.DS ---
DS: Admitting Diagnosis Discharge Date 04/26/22 Admitting Diagnosis Weakness and shortness of breath DS: Discharge Diagnosis Discharge Diagnosis (1) Metastatic non-small cell lung cancer: Code(s): C34.90 - Malignant neoplasm of unspecified part of unspecified bronchus or lung Status: Acute (2) Lung cancer: Code(s): C34.90 - Malignant neoplasm of unspecified part of unspecified bronchus or lung Status: Acute (3) BPH (benign prostatic hyperplasia): Qualifiers: Lower urinary tract symptom presence: symptoms absent Qualified Code(s): N40.0 - Benign prostatic hyperplasia without lower urinary tract symptoms Code(s): N40.0 - Benign prostatic hyperplasia without lower urinary tract symptoms Status: Acute (4) Chronic anemia: Code(s): D64.9 - Anemia, unspecified Status: Acute (5) Chronic pain syndrome: Code(s): G89.4 - Chronic pain syndrome Status: Acute (6) Hypokalemia: Code(s): E87.6 - Hypokalemia Status: Acute (7) Pneumonia: Code(s): J18.9 - Pneumonia, unspecified organism Status: Acute DS: Summary Hospital Course Reason for hospitalization: 61yo male with hx of lung cancer here for weakness and shortness of breath. Please see H&P for details Hospital Course: Patient presents to the ED with complaints of shortness of breath x1 week. CTA of the chest was negative for PE but did show extensive infiltrates in the right lung and to a lesser extent left upper lobe. Influenza and COVID PCR was negative. He was noted have low potassium level and this was replaced multiple times. pulmonary was consulted. He was treated with steroids and IV antibiotics. The working diagnosis was interstitial lung disease and/or bacterial pneumonia and/or related to EGFR inhibitor. Patient had clinical improvement. Bone scan showed no interval change in the multiple areas of uptake consistent with metastatic disease. Repeat chest x-ray did show increased opacities in the bilateral mid and upper lung zones but again patient was improving and remains on room air. MRSA nasal swab was negative. Blood cultures are no growth to date. White count and platelet count were normal. He was anemic. He had evidence of iron deficiency anemia as well as folate deficiency. These were replaced at discharge. Potassium was low at times and this was replaced. Patient overall did well was able be discharged on 04/26/2022. Status at Discharge Cognitive/behavioral status at discharge: Stable Time Spent with Patient Time attestation: Total time spent providing and/or coordinating discharge services: 35 minutes Time spent: Greater than 30 minutes Exam Narrative: AF 97.0 111/68 89 18 92% ra Gen - NARD Chest - mid lung field rhonchi o/w clear. Left upper chest port CV - RRR S1/S2 Abd - Soft, NT/ND, Positive BS Ext - No pedal edema Psych - Nml mood and affect Skin - Warm and dry DS: Data Data Completed and Pending Labs on day of discharge: Labs from last 24 hours 04/26/22 04/26/22 04/26/22 11:41 11:41 06:17 WBC 5.7 RBC 3.82 L Hgb 9.0 L Hct 29.6 L MCV 77.5 L MCH 23.6 L MCHC 30.4 L RDW 16.8 H Plt Count 172 MPV 10.8 H Immature Gran % (Auto) 0.4 Neut % (Auto) 75.4 H Lymph % (Auto) 17.0 L [place] % (Auto) 7.0 Eos % (Auto) 0.0 Baso % (Auto) 0.2 Lymph # (Auto) 0.97 [place] # (Auto) 0.4 Eos # (Auto) 0.0 Baso # (Auto) 0.0 Abs Immat Gran (auto) 0.02 Absolute Neuts (auto) 4.3 Absolute Nucleated RBC 0.0 Nucleated RBC % 0.0 Sodium Potassium 3.1 L Chloride Carbon Dioxide Anion Gap BUN Creatinine Estim Creat Clear Calc Estimated GFR Glucose Calcium Magnesium Iron 25 L TIBC 277 % Saturation 9 L Ferritin 57.70 Total Bilirubin AST ALT Alkaline Phosphatase Total Protein Albumin Vitamin B12 Pen
[2022-04-26 13:35] LABS: Folic Acid 2.4 ng/mL (2.76->20)
[2022-04-26 14:00] VITALS: BP 107/50; PULSE 90; RESP 16; TEMP 36; O2SAT 94
[2022-04-26] MEDS: CENTRAL LINE FLUSH 10 ML IV PUSH (14:22)
[2022-04-26 18:51] LABS: Legionella pneumophila Ag Ur Not Detected (Not Detected)
[2022-04-27 15:07] LABS: NIL 0.01 IU/mL; Quantiferon TB Plus, 1T NEGATIVE (NEGATIVE)
[2022-04-29 18:59] LABS: Mycoplasma IgM Antibody Titer 13 U/mL (<770)
--- NOTE | 2022-05-01 10:07 | PC.NURSE ---
urine legionella and pneumococcal are both negative. TB QFT is negative. Blood cx are negative. mycoplasma is WNL at 13 Dr. Chase aware of findings.
== END 2022-04-26 16:15 | disposition home or self-care (01) | DRG 194 ==
LOC: ANHED 14:39 → ANH3MEDSUR 16:44
PROVIDERS: Internal Medicine Pulmonary Disease; Admitting Provider Hospitalist; Emergency Provider Emergency Medicine; PCP Family Medicine; Visit Provider Internal Medicine
DX: J18.9 Pneumonia, unspecified organism (principal); C34.11 Malignant neoplasm of upper lobe, right bronchus or lung; C79.51 Secondary malignant neoplasm of bone; C77.0 Secondary and unspecified malignant neoplasm of lymph nodes of head, face and neck; C77.1 Secondary and unspecified malignant neoplasm of intrathoracic lymph nodes; C78.1 Secondary malignant neoplasm of mediastinum; J44.0 Chronic obstructive pulmonary disease with (acute) lower respiratory infection; D52.9 Folate deficiency anemia, unspecified; D50.9 Iron deficiency anemia, unspecified; I10 Essential (primary) hypertension; M54.59 Other low back pain; G89.4 Chronic pain syndrome; E87.6 Hypokalemia; N40.0 Benign prostatic hyperplasia without lower urinary tract symptoms; F41.9 Anxiety disorder, unspecified; G62.9 Polyneuropathy, unspecified; Z20.822 Contact with and (suspected) exposure to COVID-19; Z79.899 Other long term (current) drug therapy; Z86.018 Personal history of other benign neoplasm; Z86.711 Personal history of pulmonary embolism; Z86.718 Personal history of other venous thrombosis and embolism; Z87.891 Personal history of nicotine dependence; Z92.3 Personal history of irradiation; Z98.1 Arthrodesis status
CPT/HCPCS: 36415; 71045; 71275; 78306; 80048; 80053; 80202; 82565; 82607; 82728; 82746; 83540; 83550; 83605; 83735; 83880; 84132; 85025; 85055; 85610; 85730; 86480; 86738; 87040; 87081; 87449; 87636; 87899; 93005; 94618; 94640; 96361; 96365; 96366; 96367; 96375; 96376; 97161; 97165; 99285; A9270; A9561; G0378; J1642; J1650; J1956; J2543; J2930; J3370; J7030; J7512; Q9967

== ENCOUNTER 2022-05-10 08:47 | Outpatient (CLI) | payer MEDICARE, MEDICAID, SELFPAY ==
--- NOTE | ~2022-05-10 | XR_ITS ---
XR chest 2V DATE: 05/10/2022 09:07 INDICATION: Metastatic small cell lung cancer TECHNIQUE: PA and lateral views COMPARISON: 04/26/2022 portable upright AP chest 04/22/2022 CT pulmonary scan FINDINGS: Left Port-A-Cath catheter is again noted with catheter tip overlying superior vena cava. There is interval resolution of left upper lung infiltrate since 04/26/2022. There is persistent right upper lobe atelectasis but mild improvement of patchy consolidation in the right upper lobe since 04/26/2022. Status post sternotomy. Normal heart size. IMPRESSION: Interval resolution of left upper lobe infiltrate and mild improvement of right upper lob e patchy consolidation since 04/26/2022; persistent right upper lobe atelectasis Reviewed, dictated and finalized at location A. OLOGY THERAPIST IMPRESSION: Interval resolution of left upper lobe infiltrate and mild improvem ent of right upper lobe patchy consolidation since 04/26/2022; persistent right upper lobe atelectasis
== END 2022-05-10 08:48 | disposition home or self-care (01) ==
PROVIDERS: PCP Family Medicine; Visit Provider Internal Medicine
DX: C34.90 Malignant neoplasm of unspecified part of unspecified bronchus or lung (principal); J98.11 Atelectasis
CPT/HCPCS: 71046

== ENCOUNTER 2022-05-14 23:15 | Observation (INO) | payer MEDICARE, MEDICAID, SELFPAY ==
--- NOTE | ~2022-05-14 | US_ITS ---
EXAMINATION: US venous doppler [facility] DATE: 05/15/2022 14:24 INDICATION: Positive Clary's sign. History of cancer. TECHNIQUE: Grayscale images without and with compression and Doppler images of the bilateral lower ex tremity veins were obtained. COMPARISON: None FINDINGS: The right common femoral vein, profunda (deep) femoral vein, femoral vein, popliteal vein, peroneal v ein, posterior tibial veins, gastrocnemius vein, and greater saphenous vein are patent. The left common femoral vein, profunda femoral vein, femoral vein, popliteal vein, peroneal vein, pos terior tibial veins, gastrocnemius vein, soleus vein, and greater saphenous vein are patent. IMPRESSION: 1. Patent bilateral lower extremity veins. No evidence of deep venous thrombosis. Reviewed, dictated and finalized at location K. ION WORKER IMPRESSION: 1. Patent bilateral lower extremity veins. No evidence of deep venous thrombos is.
--- NOTE | ~2022-05-14 | XR_ITS ---
EXAMINATION: XR chest 2V DATE: 05/15/2022 00:32 INDICATION: Shortness of breath and cough. TECHNIQUE: Frontal and lateral views of the chest were obtained. COMPARISON: Chest 2 views 05/10/2022, chest CT 05/15/2022, 12/29/2021 FINDINGS: There are airspace opacities in right mid and upper lung zones with a perihilar predominanc e. There is volume loss of right hemithorax. There is a small right pleural effusion. No pneumothorax . The heart size is normal. Median sternotomy wires are noted. There is a left internal jugular port with tip at superior cavoatrial junction. Surgical clips in the right upper quadrant are likely from cholecystectomy. IMPRESSION: 1. Stable airspace opacities in right mid and upper lung zones with a perihilar predominance with vol ume loss, consistent with primary bronchogenic carcinoma and changes of radiation therapy. 2. Worsened small right pleural effusion. Reviewed, dictated and finalized at location A. IR CLERK IMPRESSION: 1. Stable airspace opacities in right mid and upper lung zones with a perihilar predominance with volume loss, consistent with primary bronchogenic carcinoma and changes of radiation therapy. 2. Worsened small right pleural effusion.
--- NOTE | ~2022-05-14 | CT_ITS ---
EXAMINATION: CTA chest PE protocol DATE: 05/15/2022 01:53 INDICATION: Shortness of breath and cough. Right chest pain. TECHNIQUE: Computed tomography angiography (CTA) of the chest was performed with 100 mL Omnipaque-350 intravenous contrast timed to evaluate the pulmonary arteries. Coronal maximum intensity projection 3D-reconstructions were created by the technologist. Automated exposure control and iterative reconst ruction technique were employed. The dose-length product was 398.75 mGy-cm. COMPARISON: Chest CT 04/22/2022 FINDINGS: There are airspace and groundglass opacities with volume loss and architectural distortion involving right upper lobe and perihilar right lower lobe. There are patchy groundglass opacities in basilar right lower lobe. There are patchy groundglass opacities in left upper lobe. There is a small right pleural effusion. The heart size is normal. There is a left internal jugular port with tip in right atrium. There is no pulmonary embolus. There are changes of cholecystectomy. There are scattere d sclerotic lesions of bone, consistent with metastatic disease. Median sternotomy wires are noted. IMPRESSION: 1. No pulmonary embolus. 2. Airspace and groundglass opacities with volume loss and architectural distortion involving right u pper lobe and perihilar right lower lobe, consistent with primary bronchogenic carcinoma and changes of radiation therapy without or with superimposed pneumonia. 3. Groundglass opacities in right lower lobe and left upper lobe with improvement from 04/22/2022, whi ch may be radiation pneumonitis or pneumonia. 4. Stable small right pleural effusion. 5. Scattered sclerotic lesions of bone, consistent with metastatic disease. Reviewed, dictated and finalized at location A. AL TECHNICAL WRITER IMPRESSION: 1. No pulmonary embolus. 2. Airspace and groundglass opacities with volume loss and architectural distor tion involving right upper lobe and perihilar right lower lobe, consistent with primary bronchogenic carcinoma and changes of radiation therapy without or wit h superimposed pneumonia. 3. Groundglass opacities in right lower lobe and left upper lobe with improveme nt from 04/22/2022, which may be radiation pneumonitis or pneumonia. 4. Stable small right pleural effusion. 5. Scattered sclerotic lesions of bone, consistent with metastatic disease.
[2022-05-14 23:18] VITALS: BP 149/81; PULSE 119; RESP 20; TEMP 37.1; O2SAT 94
--- NOTE | 2022-05-14 23:32 | ECG_ITS ---
Measurements Intervals [place] Rate: 118 P: -81 MI: 124 QRS: 66 QRSD: 77 T: 64 QT: 345 QTc: 485 Interpretive Statements ECTOPIC ATRIAL TACHYCARDIA ATRIAL AND VENTRICULAR PREMATURE COMPLEXES BORDERLINE ST-T WAVE ABNORMALITY- ANTERIOR LEADS ABNORMAL ECG COMPARED TO ECG 04/22/2022 11:26:16 ST-T WAVE ABNORMALITY NOW PRESENT Electronically Signed On 05-15-2022 10:37:08 TRANSIT COACH OPERATOR by Charles Zhou D.O.
[2022-05-14 23:40] VITALS: O2SAT 93
[2022-05-15] VITALS (19 sets, daily range): BP systolic 116–140; BP diastolic 59–81; PULSE 90–110; RESP 12–20; TEMP 36.4–36.9; O2SAT 93–97; BMI 25.9
[2022-05-15 00:05] LABS: Basophils Percent Auto 0.2 % (0.2-1.2); Eosinophils Absolute Auto 0.1 K/mm3 (0-0.3); Eosinophils Percent Auto 2.3 % (0-4.4); Hematocrit 31.9 % (42.0-52.0); Hemoglobin 9.7 g/dL (14.0-18.0); Immature Granulocyte Absolute 0.02 K/mm3 (0.00-0.031); Immature Granulocyte Percent A 0.4 % (0-0.5); Lymphocytes Absolute Auto 1.34 K/mm3 (0.9-3.2); Lymphocytes Percent Auto 23.5 % (18.3-44.2); Mean Corpuscular HGB Conc 30.4 g/dl (32-36); Mean Corpuscular Hemoglobin 24.1 pg (26-34); Mean Corpuscular Volume 79.4 fl (80-100); Mean Platelet Volume 10.1 fl (7.4-10.4); Monocytes Absolute Auto 0.4 K/mm3 (0.1-0.6); Monocytes Percent Auto 7.4 % (2.6-8.5); Neutrophils Absolute Auto 3.8 K/mm3 (1.3-6.7); Neutrophils Percent Auto 66.2 % (45.5-73.1); Platelet Count Result 142 k/mm3 (150-375); Red Blood Count 4.02 M/mm3 (4.6-6.20); Red Cell Distribution Width 18.5 % (11.5-14.5); White Blood Count 5.7 K/mm3 (4.5-10.0)
[2022-05-15 00:21] LABS: Alanine Aminotransferase 22 U/L (6-50); Albumin Level 3.4 g/dL (3.5-5.1); Alkaline Phosphatase 81 U/L (38-126); Anion Gap 8 mmol/L (8-16); Aspartate Amino Transferase 27 U/L (17-59); Bilirubin,Total 0.7 mg/dL (0.2-1.3); Blood Urea Nitrogen 12 mg/dL (9-20); Calcium 7.9 mg/dL (8.4-10.2); Carbon Dioxide 24 mmol/L (22-30); Chloride 104 mmol/L (98-107); Estimated CRCL calculation 106 ml/min; Estimated Glomerular Filt Rate > 60; Glucose 114 mg/dL (65-110); Potassium 3.3 mmol/L (3.4-5.0); Sodium 136 mmol/L (137-145)
[2022-05-15 00:27] LABS: Prothrombin Time 13.2 Seconds (11.1-14.7)
--- NOTE | 2022-05-15 00:27 | ED.SOB ---
HPI - SOB/Dyspnea General Chief Complaint: Shortness of Breath/Dyspnea <LORENA Baez Last Filed: 05/15/22 04:00> Stated Complaint: Pneumonia? <LORENA Baez Last Filed: 05/15/22 04:00> Time Seen by Provider: 05/14/22 23:32 <LORENA Baez Last Filed: 05/15/22 04:00> Source: patient <LORENA Baez Last Filed: 05/15/22 04:00> Mode of arrival: ambulatory <LORENA Baez Last Filed: 05/15/22 04:00> Limitations: no limitations <LORENA Baez Last Filed: 05/15/22 04:00> History of Present Illness HPI Narrative: Patient is a 61 y/o male, w/ PMHx of COPD and Stage IV metastatic non-small cell lung cancer, who presents to the ED with c/o SOB. Patient reports having shortness of breath over the last 3 days, present while at rest but worse with exertion. He has reports having congestion, productive cough, myalgias. He feels like he has pneumonia. He has prn oxygen and nebulizer treatments at home, but has not used either of these. He did have 1 episode of right-sided brief sharp chest pain in route to the ED. Denies any currently. Denies any documented fever. Denies abdominal pain, nausea, vomiting. Patient is vaccinated for COVID, but not flu. <LORENA Baez Last Filed: 05/15/22 04:00> Related Data Home Medications: Home Medications Medication Instructions Recorded Confirmed duloxetine 30 mg capsule,delayed 30 mg PO HS 11/07/19 05/15/22 release duloxetine 60 mg capsule,delayed 60 mg PO DAILY 11/07/19 05/15/22 release pregabalin 225 mg capsule 225 mg PO BID 11/07/19 05/15/22 triamcinolone acetonide 0.1 % 1 applic topical QID PRN psioriasis 11/07/19 05/15/22 topical cream cholecalciferol (vitamin D3) 1,250 1,250 mcg PO WEEKLY 09/09/20 05/15/22 mcg (50,000 unit) capsule oxycodone 30 mg tablet,crush 40 mg PO BID 09/09/20 05/15/22 resistant,extended release 12 hr (OxyContin) tizanidine 4 mg tablet 4 tablet PO PRN PRN Muscle Pain 12/29/21 05/15/22 fentanyl 50 mcg/hr transdermal 1 patch transdermal Q72H 01/10/22 05/15/22 patch tamsulosin 0.4 mg capsule 0.4 mg PO DAILY 01/10/22 05/15/22 ibandronate 150 mg tablet (Boniva) 150 mg PO MONTHLY 04/22/22 05/15/22 metoprolol tartrate 25 mg tablet 12.5 mg PO BID 04/22/22 05/15/22 osimertinib 80 mg tablet (Tagrisso) 80 mg PO DAILY 04/22/22 05/15/22 oxycodone 5 mg tablet 5 mg PO Q4-6H PRN pain 04/22/22 05/15/22 albuterol sulfate 90 mcg/actuation 2 inh inhalation Q4H PRN Shortness 05/15/22 05/15/22 aerosol inhaler Of Breath Or Wheezing omeprazole 40 mg capsule,delayed 40 mg PO DAILY 05/15/22 05/15/22 release <Laverne Cherry PA-C - Last Filed: 05/15/22 04:00> Allergies/Adverse Reactions: Allergies Allergy/AdvReac Type Severity Reaction Status Date / Time bee venom protein (honey bee) Allergy Unknown Swelling Verified 05/14/22 23:16 <Laverne Cherry PA-C - Last Filed: 05/15/22 04:00> Review of Systems Review of Systems: CONSTITUTIONAL: Denies fever, chills, or sweats. ENT: Reports congestion. Denies sore throat. CARDIOVASCULAR: Reports right-sided chest pain. RESPIRATORY: Reports cough, dyspnea, [place]. GASTROINTESTINAL: Denies abdominal pain, nausea, vomiting, or diarrhea. MUSCULOSKELETAL: Reports myalgias. NEUROLOGIC: Denies headache, numbness, or weakness. <Laverne Cherry PA-C - Last Filed: 05/15/22 04:00> All systems reviewed & are unremarkable except as noted in HPI and below <Laverne Cherry PA-C - Last Filed: 05/15/22 04:00> [facility] Past Medical History Medical History: Medical History Adenocarcinoma, lung Non-small cell carcinoma diagnosed June 2018. Follows with Dr. Baez and Dr. Cavazos; underwent radiation therapy from 12/05/2018 to 12/18/2018 and again in fall 2021 due to recurrence. Now with metastatic disease to lym
[2022-05-15 00:28] LABS: Partial Thromboplastin Time 26.7 SECONDS (22.3-36.8)
[2022-05-15 00:30] LABS: NT Pro B Type Natriuretic Pept 584 pg/mL (5-100); Troponin I < 0.012 ng/mL (0.000-0.034)
[2022-05-15 00:48] LABS: Influenza A QL RT-PCR Negative (Negative); Influenza B QL RT-PCR Negative (Negative); SARS-CoV-2 RNA PCR Negative
[2022-05-15] MEDS: POTASSIUM CHLORIDE 20 MEQ TABLET 40 MEQ PO (04:04)
--- NOTE | 2022-05-15 04:07 | PM.IMHP ---
H&P: HPI History of Present Illness Date/Time: 05/15/22 04:07 Chief Complaint: shortness of breath Narrative: This is a 61-year-old male with past medical history significant for stage IV lung adenocarcinoma, atrial fibrillation, chronic pain syndrome, cardiac myxoma. patient just recently treated for pneumonia and discharged home earlier this month comes back now worse seems to be recurrent pneumonia. Patient presents with worsening shortness of breath, cough productive of sputum, sore throat. preliminary workup was significant for CT angiogram of the chest which shows blastic lesions, spread lung cancer, Infiltrates. patient has been admitted for further evaluation management and treatment. Review of Systems Review of Systems: Shortness of breath, cough Constitutional: Constitutional: Denies chills, Denies fever(s) and Reports poor appetite Eyes: Eyes: Denies change in vision ENT: Denies dysphagia, Denies vertigo, Denies dizziness and Denies odynophagia Cardiovascular: Cardiovascular: Denies chest pain, Denies lightheadedness, Denies radiating jaw, neck or arm pain and Denies palpitations Respiratory: Respiratory: Reports chest congestion, Reports cough and Reports dyspnea Gastrointestinal: Gastrointestinal: Denies dyspepsia, Denies heartburn, Denies diarrhea, Denies nausea and Denies vomiting Genitourinary: Genitourinary: Reports no additional male genitourinary complaints and Reports as per HPI Musculoskeletal: Musculoskeletal: Reports muscle weakness Integumentary/Breasts: Skin/Breast: Denies rash Psychiatric: Psychiatric: Reports no additional psychiatric complaints and Reports as per HPI Endocrine: Endocrine: Denies cold intolerance, Denies flushing, Denies heat intolerance, Denies polyphagia, Denies polydipsia and Denies palpitations Hematologic/Lymphatic: Hematologic/Lymphatic: Reports no additional hematologic/lymphatic complaints and Reports as per HPI Allergic/Immunologic: Allergic/Immunologic: Reports no additional allergic/immunologic complaints and Reports as per HPI PMFSH Past Medical History Medical History Adenocarcinoma, lung Non-small cell carcinoma diagnosed June 2018. Follows with Dr. Baez and Dr. Cavazos; underwent radiation therapy from 12/05/2018 to 12/18/2018 and again in fall 2021 due to recurrence. Now with metastatic disease to lymph nodes and bone. Anxiety Atrial fibrillation S/p cardiac ablation by Dr. 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 Followed by Dr. Parson at [facility] last seen around December 2018. Chronic pain syndrome Due to chronic lower back pain after complications with lower spinal fusion 2009. COPD (chronic obstructive pulmonary disease) History of DVT (deep vein thrombosis) Right upper extremity DVT and bilateral PE December 2018 for which he took Xarelto for several months. History of pulmonary embolism December 2018 Hypertension Reports he is no longer on medications for such. Mass of lung Peripheral neuropathy Seasonal allergies Surgical History Surgical History History of appendectomy In the History of carpal tunnel release Left 2011 History of elbow surgery Left elbow ulnar neurolysis History of lumbar fusion Anterior and posterior L4-S1 fusion 2009 History of open heart surgery Status post resection of atrial myxoma. Hx of cholecystectomy In the Family History Family History Father Acute myocardial infarction Pulmonary embolism Sibling Breast cancer Mother Family history of chronic obstructive pulmonary disease Social History Social History Social History: Mr. Garay lives with his ex- Edna in [facility] [place]
[2022-05-15 04:43] LABS: Troponin I < 0.012 ng/mL (0.000-0.034)
[2022-05-15] MEDS: ALBUTEROL SULFATE NEB 2.5 MG/3 ML INH INHALATION ×3 (07:41→20:01)
[2022-05-15] MEDS: IPRATROPIUM BR 0.02% INH SOLN 0.5 MG/2.5 ML VIAL INHALATION ×3 (07:41→20:01)
[2022-05-15] MEDS: fentaNYL (*CRX) 50 MCG PATCH TRANSDERM (09:23)
[2022-05-15] MEDS: oxyCODONE HCL (*CRX) 40 MG TAB SR 12HR PO ×2 (09:23→20:23)
[2022-05-15] MEDS: PREGABALIN (*CRX) 75 MG CAPSULE 225 MG PO ×2 (09:23→17:39)
[2022-05-15] MEDS: LORazepam (*CRX) 0.5 MG TABLET PO ×2 (09:30→20:28)
[2022-05-15] MEDS: oxyCODONE HCL (*CRX) 5 MG TAB IR PO (09:36)
[2022-05-15] MEDS: METOPROLOL TARTRATE 12.5 MG TABLET PO ×2 (09:40→20:23)
[2022-05-15] MEDS: DULoxetine HCL 60 MG CAPSULE.DR PO (09:40)
[2022-05-15] MEDS: ENOXAPARIN 40 MG/0.4 ML SYRINGE SUB-Q (09:40)
[2022-05-15] MEDS: TAMSULOSIN HCL 0.4 MG CAPSULE PO (09:40)
[2022-05-15] MEDS: ERGOCALCIFEROL 50,000 UNITS CAPSULE 50000 UNITS PO (09:41)
[2022-05-15] MEDS: FOLIC ACID 1 MG TABLET PO (09:41)
[2022-05-15] MEDS: PANTOPRAZOLE 40 MG TABLET PO ×2 (09:41→17:39)
--- NOTE | 2022-05-15 10:25 | PM.IMPN ---
Progress Note: A&P Assessment and Plan (1) Postobstructive pneumonia: Code(s): J18.9 - Pneumonia, unspecified organism Status: Acute Assessment and Plan: Patient presents with shortness of breath. Chest CTA is negative for PE but does show right upper lobe and right lower lobe airspace disease. Some of these findings could be related to his cancer and/or radiation changes but cannot exclude pneumonia. Continue IV antibiotics. Continue nebulizer treatment. Pulmonary consulted and appreciate their input. (2) Adenocarcinoma, lung: Qualifiers: Laterality: right Qualified Code(s): C34.91 - Malignant neoplasm of unspecified part of right bronchus or lung Code(s): C34.90 - Malignant neoplasm of unspecified part of unspecified bronchus or lung Status: Chronic Assessment and Plan: Patient has metastatic adenocarcinoma of the lung. he is followed by Oncology. Bone scan earlier this month showed no interval change in the number and extent the multiple foci of increased uptake in the axial and appendicular skeleton consistent with metastatic disease. PET scan in December of this year showed perihilar right upper lobe mass with increased uptake and metastatic disease involving the mediastinal, right hilar and right supraclavicular lymph nodes as well as multiple osseous structures. Patient will follow-up with Oncology after discharge. (3) Chronic pain syndrome: Code(s): G89.4 - Chronic pain syndrome Status: Chronic Assessment and Plan: Patient with chronic pain. Some this may be related to his distended bladder. Resume home medications. His fentanyl patch is due to be changed today. Check bladder scan and offer Riggins catheter if truly distended. (4) Atrial fibrillation: Code(s): I48.91 - Unspecified atrial fibrillation Status: Acute Assessment and Plan: Patient with history of atrial fibrillation status post ablation continue metoprolol. He is not on anticoagulation. will add Lovenox for DVT prophylaxis. (5) Post-radiation pneumonitis: Code(s): J70.0 - Acute pulmonary manifestations due to radiation Status: Acute Assessment and Plan: As above. Continue supportive care. Subjective Date/time seen: 05/15/22 10:25 Interval history: 61yo male with lung cancer, chronic pain and COPD here for shortness of breath Patient's pain is all over but worse in the legs. Feels short of breath. Cough is nonproductive. His bladder feels distended and patient states that he has a neurogenic bladder that has to fill up extensively before he can void. Exam Narrative: AF 97.6 140/81 110 18 95% ra Gen - NARD Chest - CTA bilaterally, nml RR CV - RRR S1/S2 Abd - Soft, ND, bladder markedly distended. Ext - trace pedal edema. +Homans sign Psych - anxious Skin - Warm and dry Objective Data Vital Signs Vital Signs: Vital Signs - 24 hr 05/14/22 23:18 05/14/22 23:40 05/15/22 00:33 Temperature 98.8 F Pulse Rate 119 H 104 H Respiratory Rate 20 12 Blood Pressure 149/81 H 117/77 Pulse Oximetry 94 93 93 Oxygen Delivery Room Air Room Air 05/15/22 01:32 05/15/22 02:52 05/15/22 04:08 Temperature Pulse Rate 98 99 110 H Respiratory Rate 14 12 12 Blood Pressure 116/80 116/75 120/72 Pulse Oximetry 96 93 97 Oxygen Delivery 05/15/22 04:43 05/15/22 07:42 05/15/22 07:44 Temperature 97.6 F Pulse Rate 110 H 102 H 102 H Respiratory Rate 18 18 18 Blood Pressure 140/81 Pulse Oximetry 97 95 Oxygen Delivery Room Air 05/15/22 07:51 05/15/22 09:40 Temperature Pulse Rate 98 110 H Respiratory Rate 18 Blood Pressure Pulse Oximetry Oxygen Delivery Intake/Output Intake/Output: Intake & Output 05/12/22 05/13/22 05/14/22 05/15/22 23:59 23:59 23:59 23:59 Intake Total 300 Balance 300 Meds/Results Medications: Active Medications Generic Name Dose Route Sta
--- NOTE | 2022-05-15 10:47 | PM.CNPUL ---
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 The patient's respiratory status improved following treatment with steroids. the chest CT showed significant clearing of previous infiltrates and essentially no new infiltrate to suggest superimposed pneumonia. patient has a mild chronic cough but no sputum production. He remains on room air. As stated the patient has resumed treatment with osimertinib. Plan: Sputum culture ordered. Continue with current antibiotic regimen for now. we will consider discontinuing antibiotics if sputum culture negative. (2) Post-radiation pneumonitis: Code(s): J70.0 - Acute pulmonary manifestations due to radiation Status: Acute (3) Metastatic non-small cell lung cancer: Code(s): C34.90 - Malignant neoplasm of unspecified part of unspecified bronchus or lung Status: Acute (4) Chronic pain syndrome: Code(s): G89.4 - Chronic pain syndrome Status: Chronic History of Present Illness History of Present Illness Consult date: 05/15/22 Chief complaint: stage IV lung cancer,post pna Narrative: this 61-year-old man with a metastatic lung adenocarcinoma presented with shortness of breath. The patient is well known to me from previous hospitalization approximately 3 weeks ago. During that hospitalization he was found to have subacute illness characterized by progressive hypoxemic respiratory failure a new lung infiltrates bilaterally. The patient had had received radiation therapy approximately 3 months ago and had been also on osimertinib. patient denied have signs suggestive of a acute pneumonia. He was treated with a steroids and was discharged home on steroids orally for another 7 days. The patient presented to the emergency room yesterday complaining of shortness of breath and right chest pain. He had no fever hemoptysis. He has had a chronic mild cough which has been unchanged. He has no sputum production. Patient underwent chest CT and chest x-ray. Chest CT showed no evidence of a pulmonary embolism. Both diagnostic studies showed significant improvement of the bilateral pulmonary infiltrates seen on last chest CT 3 weeks ago. There was small pleural effusion on right more or less unchanged since previous study 3 weeks ago. Patient has history of anxiety and has been on opioids for chronic pain. He remains on room air. He also complaining of bilateral calf pain in his lower extremity. He has no pedal edema. The patient has resumed treatment with osimertinib. Review of Systems Review of Systems: All system review is negative except as noted in HPI and below. [facility] Past Medical History Medical History Adenocarcinoma, lung Non-small cell carcinoma diagnosed June 2018. Follows with Dr. Baez and Dr. Cavazos; underwent radiation therapy from 12/05/2018 to 12/18/2018 and again in fall 2021 due to recurrence. Now with metastatic disease to lymph nodes and bone. Anxiety Atrial fibrillation S/p cardiac ablation by Dr. 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 Followed by Dr. Parson at [facility] last seen around December 2018. Chronic pain syndrome Due to chronic lower back pain after complications with lower spinal fusion 2009. COPD (chronic obstructive pulmonary disease) History of DVT (deep vein thrombosis) Right upper extremity DVT and bilateral PE December 2018 fo
[2022-05-15] MEDS: CENTRAL LINE FLUSH 10 ML IV PUSH ×2 (15:37→22:18)
--- NOTE | 2022-05-15 18:03 | PCRCNOTE ---
Window of time for administration has passed. See next scheduled administration.
[2022-05-15] MEDS: DULoxetine HCL 30 MG CAPSULE.DR PO (20:23)
[2022-05-16] VITALS (10 sets, daily range): BP systolic 103–126; BP diastolic 47–62; PULSE 94–125; RESP 16–20; TEMP 36.7–37.4; O2SAT 90–95
[2022-05-16 04:57] LABS: Basophils Percent Auto 0.3 % (0.2-1.2); Eosinophils Absolute Auto 0.2 K/mm3 (0-0.3); Eosinophils Percent Auto 4.1 % (0-4.4); Hemoglobin 9.1 g/dL (14.0-18.0); Immature Granulocyte Absolute 0.02 K/mm3 (0.00-0.031); Immature Granulocyte Percent A 0.6 % (0-0.5); Lymphocytes Absolute Auto 0.73 K/mm3 (0.9-3.2); Lymphocytes Percent Auto 20.2 % (18.3-44.2); Mean Corpuscular HGB Conc 30.3 g/dl (32-36); Mean Corpuscular Hemoglobin 23.8 pg (26-34); Mean Corpuscular Volume 78.5 fl (80-100); Mean Platelet Volume 10.1 fl (7.4-10.4); Monocytes Absolute Auto 0.3 K/mm3 (0.1-0.6); Monocytes Percent Auto 9.1 % (2.6-8.5); Neutrophils Absolute Auto 2.4 K/mm3 (1.3-6.7); Neutrophils Percent Auto 65.7 % (45.5-73.1); Platelet Count Result 148 k/mm3 (150-375); Red Blood Count 3.82 M/mm3 (4.6-6.20); Red Cell Distribution Width 18.6 % (11.5-14.5); White Blood Count 3.6 K/mm3 (4.5-10.0)
[2022-05-16 05:14] LABS: Albumin Level 3.1 g/dL (3.5-5.1); Anion Gap 7 mmol/L (8-16); Blood Urea Nitrogen 8 mg/dL (9-20); Calcium 7.8 mg/dL (8.4-10.2); Carbon Dioxide 25 mmol/L (22-30); Chloride 107 mmol/L (98-107); Estimated CRCL calculation 94 ml/min; Estimated Glomerular Filt Rate > 60; Glucose 100 mg/dL (65-110); Magnesium 2.4 mg/dL (1.6-2.3); Phosphorus 3.3 mg/dL (2.5-4.5); Potassium 3.9 mmol/L (3.4-5.0); Sodium 139 mmol/L (137-145)
--- NOTE | 2022-05-16 06:21 | PCRCNOTE ---
Patient refused 0000 and 0400 treatments due to wanting to sleep. RN made aware. RT told patient to call RN if he woke up and felt short of breath. Treatment to resume at 0800.
--- NOTE | 2022-05-16 09:02 | PM.PNPUL ---
Progress Note: A&P Assessment and Plan (1) Adenocarcinoma, lung: Qualifiers: Laterality: right Qualified Code(s): C34.91 - Malignant neoplasm of unspecified part of right bronchus or lung Code(s): C34.90 - Malignant neoplasm of unspecified part of unspecified bronchus or lung Status: Chronic (2) Chronic pain syndrome: Code(s): G89.4 - Chronic pain syndrome Status: Chronic (3) Atrial fibrillation: Code(s): I48.91 - Unspecified atrial fibrillation Status: Acute (4) Post-radiation pneumonitis: Code(s): J70.0 - Acute pulmonary manifestations due to radiation Status: Acute Assessment and Plan: As above. Continue supportive care. (5) Metastatic non-small cell lung cancer: Code(s): C34.90 - Malignant neoplasm of unspecified part of unspecified bronchus or lung Status: Acute (6) Anxiety: Code(s): F41.9 - Anxiety disorder, unspecified Status: Acute (7) Pneumonia: Qualifiers: Pneumonia type: due to unspecified organism Laterality: right Lung location: lower lobe of lung Qualified Code(s): J18.9 - Pneumonia, unspecified organism Code(s): J18.9 - Pneumonia, unspecified organism Status: Acute Assessment and Plan: 61-year-old man with metastatic non small cell lung cancer presented with shortness of breath. When evaluated yesterday he was very anxious complaining of chest pain. He had no symptoms to suggest lower respiratory tract infection. Chest CT showed improvement of bilateral infiltrates compared to recent chest CT 3 weeks ago and no evidence to suggest new pneumonia. The patient has had some nasal stuffiness with postnasal dripping mild cough with no sputum production. He has no leukocytosis. He has been on [address] does not show clear-cut evidence of pneumonia. I have discontinued cefepime and vancomycin. Continue with azithromycin at this point while waiting for sputum culture. Most likely he will be ready to be discharged home tomorrow. Subjective Date/time seen: 05/16/22 09:02 Patient has no new respiratory symptoms. Remains on room air. He feels better today. Has had a cough but not sputum production. No wheezing no fever no chills no hemoptysis. He complains of sore throat. Possibly nasal congestion with postnasal dripping. He has been on 3 antibiotics for possible pneumonia. Review of Systems Review of Systems: All system review is negative except as noted in HPI and below. Exam Narrative: GENERAL APPEARANCE: Well developed, well nourished, alert and cooperative, and appears to be in no respiratory distress while on room air SKIN: Inspection of the skin reveals no rashes, ulcerations or petechiae. HEENT: Sclerae anicteric and conjunctivae pink and moist. Extraocular movements were intact and pupils were equal, round, and reactive to light. The oral mucosa, hard and soft palate, tongue and posterior pharynx were normal. edentulous. Exudate in pharynx. No erythema. NECK: Supple. There was no thyroid enlargement, and no tenderness, or masses were felt. CHEST: Normal AP diameter and normal contour without any kyphoscoliosis. LUNGS: Auscultation of the lungs revealed clear breath sounds bilaterally no wheezing CARDIAC: There was a regular rate and rhythm without any murmurs, gallops, rubs. ABDOMEN: Soft and nontender with normal bowel sounds. There was no organomegaly. LYMPH NODES: No lymphadenopathy was appreciated in the neck. EXTREMITIES: No cyanosis, or edema. Mild clubbing NEUROLOGIC: Alert and oriented x 3. patient appears calm today. Objective Data Vital Signs Vital Signs: Vital Signs - 24 hr 05/15/22 09:40 05/15/22 11:54 05/15/22 13:19 Temperature 36.9 C Pulse Rate 110 H 93 90 Respiratory Rate 16 18 Blood Pressure 119/59 L Pulse Oximetry 95 Oxygen Delivery 05/15/22 13:29 05/15/22 09:30 05/15/22 20:01 Temperature
[2022-05-16] MEDS: DULoxetine HCL 60 MG CAPSULE.DR PO (09:12)
[2022-05-16] MEDS: ENOXAPARIN 40 MG/0.4 ML SYRINGE SUB-Q (09:12)
[2022-05-16] MEDS: FOLIC ACID 1 MG TABLET PO (09:13)
[2022-05-16] MEDS: METOPROLOL TARTRATE 12.5 MG TABLET PO ×2 (09:13→21:17)
[2022-05-16] MEDS: oxyCODONE HCL (*CRX) 40 MG TAB SR 12HR PO ×2 (09:15→21:17)
[2022-05-16] MEDS: PANTOPRAZOLE 40 MG TABLET PO ×2 (09:15→17:21)
[2022-05-16] MEDS: TAMSULOSIN HCL 0.4 MG CAPSULE PO (09:15)
[2022-05-16] MEDS: PREGABALIN (*CRX) 75 MG CAPSULE 225 MG PO ×2 (09:16→17:22)
[2022-05-16] MEDS: IPRATROPIUM BR 0.02% INH SOLN 0.5 MG/2.5 ML VIAL INHALATION ×4 (09:21→21:36)
[2022-05-16] MEDS: ALBUTEROL SULFATE NEB 2.5 MG/3 ML INH INHALATION ×4 (09:21→21:36)
[2022-05-16] MEDS: FLUTICASONE/UMECLIDIN/VILANTER 100-62.5-25 MCG ELLIPTA 1 PUFF INHALATION (09:21)
--- NOTE | 2022-05-16 10:39 | PM.IMPN ---
Progress Note: A&P Assessment and Plan (1) Postobstructive pneumonia: Code(s): J18.9 - Pneumonia, unspecified organism Status: Acute Assessment and Plan: radiation pneumonitis vs pneumonia, cont steroids and azithromycin per pulm recs (2) Adenocarcinoma, lung: Qualifiers: Laterality: right Qualified Code(s): C34.91 - Malignant neoplasm of unspecified part of right bronchus or lung Code(s): C34.90 - Malignant neoplasm of unspecified part of unspecified bronchus or lung Status: Chronic Assessment and Plan: Patient has metastatic adenocarcinoma of the lung. he is followed by Oncology. Bone scan earlier this month showed no interval change in the number and extent the multiple foci of increased uptake in the axial and appendicular skeleton consistent with metastatic disease. PET scan in December of this year showed perihilar right upper lobe mass with increased uptake and metastatic disease involving the mediastinal, right hilar and right supraclavicular lymph nodes as well as multiple osseous structures. Patient will follow-up with Oncology after discharge. (3) Chronic pain syndrome: Code(s): G89.4 - Chronic pain syndrome Status: Chronic Assessment and Plan: Patient with chronic pain. Some this may be related to his distended bladder. Resume home medications. His fentanyl patch is due to be changed today. Check bladder scan and offer Riggins catheter if truly distended. (4) Atrial fibrillation: Code(s): I48.91 - Unspecified atrial fibrillation Status: Acute Assessment and Plan: Patient with history of atrial fibrillation status post ablation continue metoprolol. He is not on anticoagulation. will add Lovenox for DVT prophylaxis. (5) Post-radiation pneumonitis: Code(s): J70.0 - Acute pulmonary manifestations due to radiation Status: Acute Assessment and Plan: As above. Continue supportive care. Plan DVT prophylaxis with lovenox GI prophylaxis not indicated Code Status Full Code Subjective Date/time seen: 05/16/22 10:39 Interval history: No overnight events noted. No chest pain or shortness of breath. No nausea, vomiting or diarrhea. No fevers or chills. Review of Systems Review of Systems: 12 point review of systems was assessed and was negative except as noted in the HPI Exam Narrative: General: No acute distress, alert and oriented per baseline HEENT: Atraumatic, normocephalic, mucous membranes moist CV: Regular rate and rhythm, S1, S2 Lungs: Clear to auscultation bilaterally, no rales or crackles noted, no wheezes, good air entry Abdomen: Soft, nontender, nondistended Extremities: Normal to inspection Skin: No rashes noted, no lesions or wounds seen Psych: Euthymic, normal affect Objective Data Vital Signs Vital Signs: Vital Signs - 24 hr 05/15/22 11:54 05/15/22 13:19 05/15/22 13:29 Temperature 98.4 F Pulse Rate 93 90 96 Respiratory Rate 16 18 18 Blood Pressure 119/59 L Pulse Oximetry 95 Oxygen Delivery 05/15/22 20:01 05/15/22 20:06 05/15/22 20:09 Temperature Pulse Rate 96 96 94 Respiratory Rate 18 18 Blood Pressure Pulse Oximetry 95 Oxygen Delivery Room Air 05/15/22 20:23 05/15/22 20:00 05/15/22 22:00 Temperature 98.1 F Pulse Rate 101 H 101 H 101 H Respiratory Rate 18 20 Blood Pressure 117/60 Pulse Oximetry 95 95 Oxygen Delivery Room Air 05/16/22 06:00 05/16/22 09:13 05/16/22 09:23 Temperature 98.1 F Pulse Rate 98 94 98 Respiratory Rate 16 18 Blood Pressure 105/48 L Pulse Oximetry 92 Oxygen Delivery 05/16/22 09:23 Temperature Pulse Rate 96 Respiratory Rate Blood Pressure Pulse Oximetry 90 Oxygen Delivery Room Air Intake/Output Intake/Output: Intake & Output 05/13/22 05/14/22 05/15/22 05/16/22 23:59 23:59 23:59 23:59 Intake Total 1450 494 Balance 1450 494 Meds/Re
[2022-05-16] MEDS: CENTRAL LINE FLUSH 10 ML IV PUSH ×2 (15:14→22:18)
[2022-05-16] MEDS: DULoxetine HCL 30 MG CAPSULE.DR PO (21:16)
[2022-05-16] MEDS: LORazepam (*CRX) 0.5 MG TABLET PO (21:19)
[2022-05-17 06:00] VITALS: BP 116/69; PULSE 101; RESP 22; TEMP 36.7; O2SAT 92
[2022-05-17] MEDS: CENTRAL LINE FLUSH 10 ML IV PUSH ×2 (06:03→13:57)
[2022-05-17 06:09] VITALS: PULSE 88; RESP 20
[2022-05-17] MEDS: IPRATROPIUM BR 0.02% INH SOLN 0.5 MG/2.5 ML VIAL INHALATION ×2 (06:09→09:44)
[2022-05-17] MEDS: ALBUTEROL SULFATE NEB 2.5 MG/3 ML INH INHALATION ×2 (06:09→09:43)
[2022-05-17] MEDS: DULoxetine HCL 60 MG CAPSULE.DR PO (08:45)
[2022-05-17 08:46] VITALS: PULSE 98
[2022-05-17] MEDS: METOPROLOL TARTRATE 12.5 MG TABLET PO (08:46)
[2022-05-17] MEDS: TAMSULOSIN HCL 0.4 MG CAPSULE PO (08:46)
[2022-05-17] MEDS: ENOXAPARIN 40 MG/0.4 ML SYRINGE SUB-Q (08:46)
[2022-05-17] MEDS: PANTOPRAZOLE 40 MG TABLET PO (08:46)
[2022-05-17] MEDS: FOLIC ACID 1 MG TABLET PO (08:46)
[2022-05-17] MEDS: oxyCODONE HCL (*CRX) 40 MG TAB SR 12HR PO (08:46)
[2022-05-17] MEDS: PREGABALIN (*CRX) 75 MG CAPSULE 225 MG PO (08:46)
--- NOTE | 2022-05-17 09:00 | PM.DS ---
DS: Admitting Diagnosis Discharge Date May 17, 2022 Admitting Diagnosis Shortness of breath DS: Discharge Diagnosis Discharge Diagnosis (1) Postobstructive pneumonia: Code(s): J18.9 - Pneumonia, unspecified organism Status: Acute Assessment and Plan: radiation pneumonitis vs pneumonia, cont steroids and azithromycin per pulm recs (2) Adenocarcinoma, lung: Qualifiers: Laterality: right Qualified Code(s): C34.91 - Malignant neoplasm of unspecified part of right bronchus or lung Code(s): C34.90 - Malignant neoplasm of unspecified part of unspecified bronchus or lung Status: Chronic Assessment and Plan: Patient has metastatic adenocarcinoma of the lung. he is followed by Oncology. Bone scan earlier this month showed no interval change in the number and extent the multiple foci of increased uptake in the axial and appendicular skeleton consistent with metastatic disease. PET scan in December of this year showed perihilar right upper lobe mass with increased uptake and metastatic disease involving the mediastinal, right hilar and right supraclavicular lymph nodes as well as multiple osseous structures. Patient will follow-up with Oncology after discharge. (3) Chronic pain syndrome: Code(s): G89.4 - Chronic pain syndrome Status: Chronic Assessment and Plan: Patient with chronic pain. Some this may be related to his distended bladder. Resume home medications. His fentanyl patch is due to be changed today. Check bladder scan and offer Riggins catheter if truly distended. (4) Atrial fibrillation: Code(s): I48.91 - Unspecified atrial fibrillation Status: Acute Assessment and Plan: Patient with history of atrial fibrillation status post ablation continue metoprolol. He is not on anticoagulation. will add Lovenox for DVT prophylaxis. (5) Post-radiation pneumonitis: Code(s): J70.0 - Acute pulmonary manifestations due to radiation Status: Acute Assessment and Plan: As above. Continue supportive care. Plan DVT prophylaxis with lovenox GI prophylaxis not indicated Code Status Full Code DS: Summary Hospital Course Hospital Course: 61-year-old male with past medical history significant for stage IV lung adenocarcinoma, atrial fibrillation, chronic pain syndrome, cardiac myxoma. patient just recently treated for pneumonia and discharged home earlier this month comes back now worse seems to be recurrent pneumonia.? Patient presents with worsening shortness of breath, cough productive of sputum, sore throat. preliminary workup was significant for CT angiogram of the chest which shows blastic lesions, spread lung cancer, infiltrates. Pulmonology was consulted and recommended azithromycin and sputum culture. They recommended discharge home on azithromycin with follow-up outpatient. Radiation oncology was also consulted for possible radiation pneumonitis. They were unable to determine whether was infectious or inflammatory etiology from Tagrisso induced pneumonitis versus interstitial lung disease. Therefore, they recommended antibiotics per pulmonology recommendations and then a prolonged course of high-dose prednisone with a slow taper. Patient did not have much response to steroids and pulmonology was concerned with immunosuppression due to cancer and possible infection, therefore steroids were not prescribed at discharge and management with high-dose steroids will be deferred to radiation oncology. Time Spent with Patient Time attestation: Total time spent providing and/or coordinating discharge services: Exam Narrative: General: No acute distress, alert and oriented per baseline HEENT: Atraumatic, normocephalic, mucous membranes moist CV: Regular rate and rhythm, S1, S2 Lungs: Clear to auscultation bilaterally, no rales or crackles noted, no wheezes, good air entry Abdomen: Soft, nontender, nondiste
--- NOTE | 2022-05-17 09:20 | PM.PNPUL ---
Progress Note: A&P Assessment and Plan (1) Adenocarcinoma, lung: Qualifiers: Laterality: right Qualified Code(s): C34.91 - Malignant neoplasm of unspecified part of right bronchus or lung Code(s): C34.90 - Malignant neoplasm of unspecified part of unspecified bronchus or lung Status: Chronic (2) Chronic pain syndrome: Code(s): G89.4 - Chronic pain syndrome Status: Chronic (3) Atrial fibrillation: Code(s): I48.91 - Unspecified atrial fibrillation Status: Acute (4) Post-radiation pneumonitis: Code(s): J70.0 - Acute pulmonary manifestations due to radiation Status: Acute Assessment and Plan: As above. Continue supportive care. (5) Metastatic non-small cell lung cancer: Code(s): C34.90 - Malignant neoplasm of unspecified part of unspecified bronchus or lung Status: Acute (6) Anxiety: Code(s): F41.9 - Anxiety disorder, unspecified Status: Acute (7) Pneumonia: Qualifiers: Pneumonia type: due to unspecified organism Laterality: right Lung location: lower lobe of lung Qualified Code(s): J18.9 - Pneumonia, unspecified organism Code(s): J18.9 - Pneumonia, unspecified organism Status: Acute Assessment and Plan: 61-year-old man with metastatic non small cell lung cancer presented with shortness of breath. On initial evaluation, he was very anxious complaining of chest pain. He had no symptoms to suggest lower respiratory tract infection. Chest CT showed improvement of bilateral infiltrates compared to recent chest CT 3 weeks ago and no new evidence to suggest new pneumonia. The patient has had some nasal stuffiness with postnasal dripping mild cough with no sputum production. He has no leukocytosis. He has been on room air all along. less anxious today. okay to discharge patient home. Continue with oral antibiotic like Zithromax for 3 more days. Advised patient to return to pulmonary clinic for follow-up. He needs to call to make an appointment approximately 1 month. Will sign off please call with any questions. Subjective Date/time seen: 05/17/22 09:20 patient has no new respiratory symptoms. Has mild cough with no sputum production as before. Has no sore throat today. He remains on room air afebrile. Review of Systems Review of Systems: 12 point review of systems was assessed and was negative except as noted in the HPI Exam Narrative: GENERAL APPEARANCE: Well developed, well nourished, alert and cooperative, and appears to be in no respiratory distress while on room air SKIN: Inspection of the skin reveals no rashes, ulcerations or petechiae. HEENT: Sclerae anicteric and conjunctivae pink and moist. Extraocular movements were intact and pupils were equal, round, and reactive to light. The oral mucosa, hard and soft palate, tongue and posterior pharynx were normal. edentulous. Exudate in pharynx. No erythema. NECK: Supple. There was no thyroid enlargement, and no tenderness, or masses were felt. CHEST: Normal AP diameter and normal contour without any kyphoscoliosis. LUNGS: Auscultation of the lungs revealed clear breath sounds bilaterally no wheezing CARDIAC: There was a regular rate and rhythm without any murmurs, gallops, rubs. ABDOMEN: Soft and nontender with normal bowel sounds. There was no organomegaly. LYMPH NODES: No lymphadenopathy was appreciated in the neck. EXTREMITIES: No cyanosis, or edema. Mild clubbing NEUROLOGIC: Alert and oriented x 3. patient appears calm today. Objective Data Vital Signs Vital Signs: Vital Signs - 24 hr 05/16/22 09:23 05/16/22 09:23 05/16/22 12:15 Temperature Pulse Rate 98 96 112 H Respiratory Rate 18 18 Blood Pressure Pulse Oximetry 90 Oxygen Delivery Room Air Fraction of Inspired Oxygen 05/16/22 12:28 05/16/22 11:30 05/16/22 14:00 Temperature 36.9 C Pulse Rate 110 H 119 H Respiratory Rate 18 18 Bloo
[2022-05-17 09:30] VITALS: PULSE 77; RESP 18
[2022-05-17] MEDS: FLUTICASONE/UMECLIDIN/VILANTER 100-62.5-25 MCG ELLIPTA 1 PUFF INHALATION (09:33)
[2022-05-17 09:37] VITALS: PULSE 77; O2SAT 96
[2022-05-17 09:41] VITALS: PULSE 82; RESP 18
== END 2022-05-17 15:00 | disposition home or self-care (01) ==
LOC: ANHED 05-15 04:00 → ANH3MED 05-15 08:00
PROVIDERS: Internal Medicine; Physician Assistant; Admitting Provider Internal Medicine; Emergency Provider Emergency Medicine; PCP Family Medicine; Visit Provider Student in an Organized Health Care Education/Training Program
DX: J18.9 Pneumonia, unspecified organism (principal); C34.90 Malignant neoplasm of unspecified part of unspecified bronchus or lung; G89.4 Chronic pain syndrome; I48.91 Unspecified atrial fibrillation; C77.9 Secondary and unspecified malignant neoplasm of lymph node, unspecified; C79.51 Secondary malignant neoplasm of bone; R93.89 Abnormal findings on diagnostic imaging of other specified body structures; J44.9 Chronic obstructive pulmonary disease, unspecified; R07.9 Chest pain, unspecified; Z20.822 Contact with and (suspected) exposure to COVID-19; R00.0 Tachycardia, unspecified; F41.9 Anxiety disorder, unspecified; R91.8 Other nonspecific abnormal finding of lung field; R94.31 Abnormal electrocardiogram [ECG] [EKG]; I10 Essential (primary) hypertension; G62.9 Polyneuropathy, unspecified; J30.2 Other seasonal allergic rhinitis; D64.9 Anemia, unspecified; R94.4 Abnormal results of kidney function studies; E87.6 Hypokalemia; J90 Pleural effusion, not elsewhere classified; Z86.79 Personal history of other diseases of the circulatory system; Z86.718 Personal history of other venous thrombosis and embolism; Z86.711 Personal history of pulmonary embolism; Z87.891 Personal history of nicotine dependence; Z79.52 Long term (current) use of systemic steroids; Z79.891 Long term (current) use of opiate analgesic; Z79.51 Long term (current) use of inhaled steroids; Z79.899 Other long term (current) drug therapy; Z83.6 Family history of other diseases of the respiratory system; Z84.89 Family history of other specified conditions; Z82.49 Family history of ischemic heart disease and other diseases of the circulatory system
CPT/HCPCS: 36415; 71046; 71275; 80053; 80069; 83735; 83880; 84484; 85025; 85380; 85610; 85730; 87040; 87636; 93005; 93970; 94640; 96365; 96366; 96367; 96372; 96375; 96376; 99285; A9270; G0378; J0456; J0692; J1650; J3370; J7060; Q9967

== ENCOUNTER 2022-06-18 21:42 | Emergency (ER) | payer MEDICARE, MEDICAID, SELFPAY ==
[2022-06-18 21:48] VITALS: BP 123/68; PULSE 94; RESP 16; TEMP 36.2; O2SAT 94
--- NOTE | 2022-06-19 02:01 | PC.NURSE ---
patient left at this time states that another hospital has no wait time so she will take him there
== END 2022-06-19 02:01 | disposition left against medical advice (07) ==
PROVIDERS: PCP Family Medicine
DX: R19.7 Diarrhea, unspecified (principal)
CPT/HCPCS: 99199

== ENCOUNTER 2022-06-22 15:23 | Outpatient (CLI) | payer MEDICARE, MEDICAID, SELFPAY ==
[2022-06-22 18:34] LABS: Toxigenic C. Diff POSITIVE (NEGATIVE)
== END 2022-06-22 15:24 | disposition home or self-care (01) ==
LOC: ANHLAB 15:26
PROVIDERS: PCP Family Medicine; Visit Provider Internal Medicine Hematology & Oncology
DX: C34.91 Malignant neoplasm of unspecified part of right bronchus or lung (principal); R19.7 Diarrhea, unspecified
CPT/HCPCS: 87493

== ENCOUNTER 2022-07-06 13:27 | Outpatient (CLI) | payer MEDICARE, MEDICAID, SELFPAY ==
--- NOTE | ~2022-07-06 | PE_ITS ---
EXAMINATION: PET skull to mid thigh DATE: 07/06/2022 15:30 INDICATION: Non-small cell cancer of right lung. TECHNIQUE: 12.125 mCi of 18-fluorodeoxyglucose (18-FDG) was administered i.v. Low dose computed tomog tyree (CT) images were acquired from the base of the brain to the proximal thighs for attenuation cor rection and anatomic localization. Automated exposure control was employed. Dose-length product (DLP) was 774 mGy-cm. Positron emission tomography (PET) images were acquired in the same distribution. COMPARISON: Chest CT 05/15/2022, PET/CT 01/12/2022 FINDINGS: Head/neck: There are no pathologically enlarged lymph nodes. There is increased activity in the oral cavity, pharynx, paraspinal muscles, and glottis without abnormal CT correlate, likely physiologic. T here are scattered sclerotic lesions of bone. There is widespread increased activity in bone marrow i n areas of bone spared from sclerotic lesions, likely at least predominantly bone marrow stimulation. Chest: There is a small right pleural effusion. There are airspace opacities in right upper lobe and right perihilar region with architectural distortion and maximum SUV of 4.2. The heart size is normal . There are coronary artery calcifications. No pericardial effusion. There is a left subclavian inter nal jugular port with tip in superior vena cava. Median sternotomy wires are noted. There are scatter ed sclerotic lesions of bone. There is widespread increased activity in bone marrow in areas of bone spared from sclerotic lesions, likely at least predominantly bone marrow stimulation. Abdomen/pelvis/proximal thighs: The liver and spleen are normal. There are changes of cholecystectomy . The pancreas, adrenal glands, and kidneys are normal. There are no dilated loops of bowel. There ar e no pathologically enlarged lymph nodes. There is no free intraperitoneal fluid. There are changes o f anterior and posterior fusion procedures in lumbar spine. There are scattered sclerotic lesions of bone. There is widespread increased activity in bone marrow in areas of bone spared from sclerotic le sions, likely at least predominantly bone marrow stimulation. IMPRESSION: 1. Airspace opacities in right upper lobe and right perihilar region with increased activity with imp rovement from 05/15/2022 and 01/12/22, consistent with primary bronchogenic carcinoma and radiation pn eumonitis. 2. Stable small right pleural effusion. 3. Scattered sclerotic lesions of bone with worsening from 01/12/2022, consistent with metastatic dise ase. Reviewed, dictated and finalized at location A. [employer] IMPRESSION: 1. Airspace opacities in right upper lobe and right perihilar region with incre ased activity with improvement from 05/15/2022 and 01/12/22, consistent with sg ananth bronchogenic carcinoma and radiation pneumonitis. 2. Stable small right pleural effusion. 3. Scattered sclerotic lesions of bone with worsening from 01/12/2022, consisten t with metastatic disease.
== END 2022-07-06 13:28 | disposition home or self-care (01) ==
LOC: ANHIMG 13:28
PROVIDERS: PCP Family Medicine; Visit Provider Internal Medicine Hematology & Oncology
DX: C34.11 Malignant neoplasm of upper lobe, right bronchus or lung (principal); Z92.3 Personal history of irradiation; J90 Pleural effusion, not elsewhere classified; M89.9 Disorder of bone, unspecified
CPT/HCPCS: 78815; A9552

== ENCOUNTER 2022-07-21 10:55 | Outpatient (CLI) | payer MEDICARE, MEDICAID, SELFPAY ==
--- NOTE | ~2022-07-21 | XR_ITS ---
Clinical Indication: Lung cancer PA and lateral views of the chest: Comparison: 05/15/2022 Findings: Right upper lobe airspace opacity is present, mildly decreased in size from prior exam. Lef t lung is clear. Left-sided Mediport in place. Cardiomediastinal silhouette is within normal limits. Bones and soft tissues are unremarkable. Impression: Right upper lobe airspace opacity, mildly improved from prior exam. Findings could reflect underlying neoplasm and/or treated disease/radiation pneumonitis. Correlate with relevant clinical history. Left-sided Mediport. Reviewed, dictated and finalized at location M. M[employer] CUT[employer] HAND Impression: Right upper lobe airspace opacity, mildly improved from prior exam. Findings co uld reflect underlying neoplasm and/or treated disease/radiation pneumonitis. C orrelate with relevant clinical history. Left-sided Mediport.
== END 2022-07-21 10:56 | disposition home or self-care (01) ==
LOC: ANHIMG 10:57
PROVIDERS: PCP Family Medicine; Visit Provider Internal Medicine Hematology & Oncology
DX: C34.91 Malignant neoplasm of unspecified part of right bronchus or lung (principal); R91.8 Other nonspecific abnormal finding of lung field
CPT/HCPCS: 36415; 71046; 87340; 96372; J3420

== ENCOUNTER 2022-08-03 19:03 | Observation (INO) | payer MEDICARE, MEDICAID, SELFPAY ==
[2022-08-03] VITALS (14 sets, daily range): BP systolic 105–144; BP diastolic 68–98; PULSE 90–120; RESP 10–20; TEMP 36.3–36.6; O2SAT 95–99; BMI 26.6
--- NOTE | ~2022-08-03 | XR_ITS ---
XR chest 2V 08/03/2022 20:16 Indication: Chest pain Procedure: PA and lateral views of the chest Comparison: Comparison to multiple prior studies sequentially, with oldest reviewed study dated 02/2022. Findings: Portacatheter tip in the SVC. Status post median sternotomy for CABG. There is consolidatio n of the right upper and lower lobe with distortion of the right hilar region, consistent with treate d bronchogenic carcinoma. There are sclerotic lesions of the lower thoracic spine, consistent with me tastatic disease. Small right pleural effusion. Impression: 1: Stable consolidation right upper and lower lobe, consistent with treated bronchogenic carcinoma. 2: Osseous metastases. 3: Small right pleural effusion. Reviewed, dictated and finalized at location A. ULTING SERVICES MANAGER Impression: 1: Stable consolidation right upper and lower lobe, consistent with treated bro nchogenic carcinoma. 2: Osseous metastases. 3: Small right pleural effusion.
--- NOTE | ~2022-08-03 | CT_ITS ---
EXAMINATION: CTA chest PE protocol DATE: 08/03/2022 20:14 MANAGER GAMING INDICATION: Dyspnea. Tachycardia. Non-small cell carcinoma of the right lung. There is an TECHNIQUE: Computed tomographic angiography (CTA) of the chest was performed with 100 mL Omnipaque-35 0 intravenous contrast. The dose-length product was 516.36 mGy-cm. Maximum intensity projection 3D-re constructions of the aorta and other arteries were constructed by the technologist on a separate work station. COMPARISON: CT dated 05/15/2022. FINDINGS: Study is technically adequate. There are filling defects in the right segmental pulmonary a rtery. There is right hilar lymphadenopathy. There is a chiara catheter in the left chest wall. There are patchy areas of sclerosis within the bones including the spine, sternum and multiple ribs. These findings are not significantly changed. Small right pleural effusion. There is improved perihilar rig ht upper and lower lobe airspace consolidation with distortion of the lung parenchyma. There are impr mohan groundglass opacities of the left upper and right lower lobe. IMPRESSION: 1. Pulmonary embolism involving right upper lobe segmental pulmonary artery, small thrombus burden. 2: Improved airspace consolidation and groundglass opacities of the right upper and lower lobe, consi stent with treated primary bronchogenic carcinoma with radiation therapy changes. 3: Stable scattered sclerotic lesions of the bone, consistent with metastatic disease. 4: Stable small right pleural effusion. Reviewed, dictated and finalized at location A. GER GAMING IMPRESSION: 1. Pulmonary embolism involving right upper lobe segmental pulmonary artery, sm all thrombus burden. 2: Improved airspace consolidation and groundglass opacities of the right upper and lower lobe, consistent with treated primary bronchogenic carcinoma with ra diation therapy changes. 3: Stable scattered sclerotic lesions of the bone, consistent with metastatic d isease. 4: Stable small right pleural effusion.
--- NOTE | 2022-08-03 19:04 | ECG_ITS ---
Measurements Intervals [place] Rate: 111 P: -56 PA: 133 QRS: 55 QRSD: 81 T: 66 QT: 319 QTc: 435 Interpretive Statements ECTOPIC ATRIAL TACHYCARDIA NONSPECIFIC T-WAVE ABNORMALITY ABNORMAL RHYTHM ECG COMPARED TO ECG 05/14/2022 23:40:21 PVCS ARE NOT DEMONSTRATED, NO OTHER DIFFERENCE Electronically Signed On 08-04-2022 15:13:39 WINDOW [employer] SEWER by Tan Milian M.D.
--- NOTE | 2022-08-03 19:41 | ED.GENADULT ---
HPI - General Adult General Chief complaint: Chest Pain Stated complaint: chest pain Time Seen by Provider: 08/03/22 19:18 History of Present Illness HPI narrative: 62 year old male With history of stage IV lung cancer and previous DVT/PE presents with right-sided chest pain. patient states that he he has right-sided chest pain that started last night. He describes it is a deep/ sharp pain that radiates down his right arm, 15 at 10 intensity and constant. He says that he feels like when he was 1st diagnosed with lung cancer. Denies exacerbating or alleviating factors. He does admit to shortness of breath, night sweats. He has not been on anticoagulation for quite some time. He does use opiate pain medication at home. He denies lower extremity edema/hemoptysis. Related Data Home Medications Medication Instructions Recorded Confirmed duloxetine 30 mg capsule,delayed 30 mg PO HS 11/07/19 07/21/22 release duloxetine 60 mg capsule,delayed 60 mg PO DAILY 11/07/19 07/21/22 release pregabalin 225 mg capsule 225 mg PO BID 11/07/19 07/21/22 triamcinolone acetonide 0.1 % 1 applic topical QID PRN psioriasis 11/07/19 07/21/22 topical cream cholecalciferol (vitamin D3) 1,250 1,250 mcg PO WEEKLY 09/09/20 07/21/22 mcg (50,000 unit) capsule oxycodone 30 mg tablet,crush 40 mg PO BID 09/09/20 07/21/22 resistant,extended release 12 hr (OxyContin) fentanyl 50 mcg/hr transdermal 1 patch transdermal Q72H 01/10/22 07/21/22 patch tamsulosin 0.4 mg capsule 0.4 mg PO DAILY 01/10/22 07/21/22 metoprolol tartrate 25 mg tablet 12.5 mg PO BID 04/22/22 07/21/22 oxycodone 5 mg tablet 5 mg PO Q4-6H PRN pain 04/22/22 07/21/22 albuterol sulfate 90 mcg/actuation 2 inh inhalation Q4H PRN Shortness 05/15/22 07/21/22 aerosol inhaler Of Breath Or Wheezing cyanocobalamin (vitamin B-12) 2,500 mcg sublingual DAILY 07/18/22 07/21/22 2,500 mcg sublingual tablet (Vitamin B-12) fentanyl 75 mcg/hr transdermal 1 patch transdermal Q72H 07/18/22 07/21/22 patch ferrous sulfate 325 mg (65 mg 325 mg PO DAILY 07/18/22 07/21/22 iron) tablet (iron) duloxetine 30 mg capsule,delayed mg PO 07/26/22 release folic acid 1 mg tablet 1 mg PO DAILY 07/26/22 07/28/22 Allergies Allergy/AdvReac Type Severity Reaction Status Date / Time bee venom protein (honey bee) Allergy Unknown Swelling Verified 08/03/22 19:03 [facility] Past Medical History Medical History Adenocarcinoma, lung Non-small cell carcinoma diagnosed June 2018. Follows with Dr. Baez and Dr. Cavazos; underwent radiation therapy from 12/05/2018 to 12/18/2018 and again in fall 2021 due to recurrence. Now with metastatic disease to lymph nodes and bone. Anxiety Atrial fibrillation S/p cardiac ablation by Dr. 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 Followed by Dr. Parson at [facility] last seen around December 2018. Chronic pain syndrome Due to chronic lower back pain after complications with lower spinal fusion 2009. COPD (chronic obstructive pulmonary disease) History of DVT (deep vein thrombosis) Right upper extremity DVT and bilateral PE December 2018 for which he took Xarelto for several months. History of pulmonary embolism December 2018 Hypertension Reports he is no longer on medications for such. Mass of lung Peripheral neuropathy Seasonal allergies Surgical History Surgical History History of appendectomy In the History of carpal tunnel release Left 2011 History of elbow surgery Left elbow ulnar neurolysis History of lumbar fusion Anterior and posterior L4-S1 fusion 2009 History of open heart surgery Status post resection of atrial myxoma. Hx of cholecystectomy In the Family History Family History Father Acute myoca
[2022-08-03] MEDS: HYDROmorphone HCL INJ (*CRX) 1 MG/ML SYR 0.5 MG IV PUSH (19:59)
[2022-08-03] MEDS: ENOXAPARIN 100 MG/ML SYRINGE 90 MG SUB-Q (19:59)
[2022-08-03 20:05] LABS: Estimated CRCL calculation 93 ml/min; Estimated Glomerular Filt Rate > 60
[2022-08-03 20:08] LABS: Basophils Percent Auto 0.2 % (0.2-1.2); Eosinophils Absolute Auto 0.5 K/mm3 (0-0.3); Eosinophils Percent Auto 9.2 % (0-4.4); Hemoglobin 13.4 g/dL (14.0-18.0); Immature Granulocyte Absolute 0.02 K/mm3 (0.00-0.031); Immature Granulocyte Percent A 0.4 % (0-0.5); Lymphocytes Percent Auto 18.1 % (18.3-44.2); Mean Corpuscular HGB Conc 31.2 g/dl (32-36); Mean Corpuscular Hemoglobin 25.2 pg (26-34); Mean Corpuscular Volume 80.8 fl (80-100); Mean Platelet Volume 9.5 fl (7.4-10.4); Monocytes Absolute Auto 0.4 K/mm3 (0.1-0.6); Monocytes Percent Auto 6.7 % (2.6-8.5); Neutrophils Absolute Auto 3.6 K/mm3 (1.3-6.7); Neutrophils Percent Auto 65.4 % (45.5-73.1); Platelet Count Result 153 k/mm3 (150-375); Red Blood Count 5.32 M/mm3 (4.6-6.20); Red Cell Distribution Width 16.5 % (11.5-14.5); White Blood Count 5.5 K/mm3 (4.5-10.0)
[2022-08-03 20:21] LABS: Alanine Aminotransferase 46 U/L (6-50); Albumin Level 4.2 g/dL (3.5-5.1); Alkaline Phosphatase 73 U/L (38-126); Anion Gap 7 mmol/L (8-16); Aspartate Amino Transferase 34 U/L (17-59); Bilirubin,Total 0.8 mg/dL (0.2-1.3); Blood Urea Nitrogen 13 mg/dL (9-20); Calcium 8.5 mg/dL (8.4-10.2); Carbon Dioxide 26 mmol/L (22-30); Chloride 98 mmol/L (98-107); Estimated CRCL calculation 105 ml/min; Estimated Glomerular Filt Rate > 60; Glucose 157 mg/dL (65-110); Lipase 22 U/L (23-300); Potassium 4.1 mmol/L (3.4-5.0); Sodium 131 mmol/L (137-145)
[2022-08-03 20:22] LABS: Partial Thromboplastin Time 27.9 SECONDS (22.3-36.8); Prothrombin Time 12.6 Seconds (11.1-14.7)
[2022-08-03 20:33] LABS: NT Pro B Type Natriuretic Pept 213 pg/mL (19.9-100); Troponin I < 0.012 ng/mL (0.000-0.034)
[2022-08-03 20:45] LABS: Influenza A QL RT-PCR Negative (Negative); Influenza B QL RT-PCR Negative (Negative); RSV RNA, RT-PCR Negative (Negative); SARS-CoV-2 RNA PCR Negative
[2022-08-03] MEDS: ALBUTEROL SULFATE NEB 2.5 MG/3 ML INH INHALATION (21:01)
[2022-08-03] MEDS: IPRATROPIUM BR 0.02% INH SOLN 0.5 MG/2.5 ML VIAL INHALATION (21:01)
[2022-08-03] MEDS: SODIUM CHLORIDE 0.9% IV 1,000 ML 999 ML IV CONT (21:06)
--- NOTE | 2022-08-03 22:45 | ADMGEN ---
This patient, Jn Garay, was admitted to Medical Room 345-. Patient/family oriented to hospital policies and general routines including ID bracelet, bed and alarms, visiting hours, pain management, procedures, bathroom and other care routines, personal items, smoking policy, room service/diet, and visiting hours. Information on how to activate the Rapid Response Team has been discussed. Patient/Family are encouraged to report perceived risks to care and to ask questions if they do not understand what they are told or what they should do.
[2022-08-04] VITALS: PULSE 104
[2022-08-04 00:04] LABS: Troponin I < 0.012 ng/mL (0.000-0.034)
[2022-08-04 04:00] VITALS: PULSE 96
[2022-08-04 05:02] VITALS: BP 114/60; PULSE 99; RESP 18; TEMP 36.2; O2SAT 96
--- NOTE | 2022-08-04 06:52 | PM.IMHP ---
H&P: [facility] History of Present Illness Date/Time: 08/04/22 06:52 Chief Complaint: right-sided chest pain Narrative: Same-day admit/discharge summary 62-year-old male with past medical history of COPD, non-small cell lung cancer with with metastases to bone, chronic pain syndrome, peripheral neuropathy, BPH and essential hypertension who presented to the ER with right-sided chest pain. The patient reported the pain started on the evening of the . It was a different type of pain than what he had had previously when he had prior blood clots. But in the ER CTA of the chest demonstrated a right upper lobe segmental pulmonary embolism with small clot burden. The patient had a prior pulmonary embolisms back in approximately 2019 and was treated with Xarelto at that time but has not been on blood thinners in a long time. He denies any history of recent hematochezia or melena. He has not had any hematuria. He denies any pleuritic chest pain. He reports that his pain has improved overnight and is currently 5/10 in intensity. The pain evidently did radiate down the right arm. The pain was described as deep and sharp pain. At its worst the pain was a 15/10 in intensity. He thought that the pain was due to his lung cancer. He denied any significant relieving factors. He has been having some shortness of breath and night sweats. He denies any fevers or chills. He has not noticed any lower extremity edema, calf pain or increased dyspnea from his baseline. He reports that his appetite has been decreased for a couple of days. He generally has not felt well. He is upset that he did not get his pain medications in a timely manner last night I tried to explain to the patient that there was a computer down time which delayed the ordering of his medications. The patient had already had his family bring in his medications in the patient has been taking his home medications as throughout the night prior to orders being placed. He reports chronic constipation and states that he has been on chronic pain medications since 2008. He reports he has chronic low back pain due to a unsuccessful L4 through S1 surgery. He denies any changes in urinary frequency or hesitancy. Review of Systems Review of Systems: 12 systems were reviewed with pertinent positives and negatives per HPI. Except as documented in the HPI, all other systems were reviewed and are negative. [facility] Past Medical History Medical History (Updated 08/04/22 @ 07:56 by Celi Ly DO) Adenocarcinoma, lung Non-small cell carcinoma diagnosed June 2018. Follows with Dr. Baez and Dr. Cavazos; underwent radiation therapy from 12/05/2018 to 12/18/2018 and again in fall 2021 due to recurrence. Now with metastatic disease to lymph nodes and bone. He is currently receiving chemotherapy and has plans to start Keytruda on August 18. Anxiety Atrial fibrillation S/p cardiac ablation by Dr. 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 Followed by Dr. Parson at [facility] last seen around December 2018. Chronic pain syndrome Due to chronic lower back pain after complications with lower spinal fusion 2009. COPD (chronic obstructive pulmonary disease) History of DVT (deep vein thrombosis) Right upper extremity DVT and bilateral PE December 2018 for which he took Xarelto for several months. History of pulmonary embolism December 2018 Hypertension Reports he is no longer on medications for such. Mass of lung Peripheral neuropathy Seasonal allergies Surgical History Surgical History (Updated 08/04/22 @ 07:56 by Celi Ly DO) History of appendectomy In the History of carpal tunnel release Left 2011 History of elbow surgery Left elbow ulnar neurolysis History of lumbar fusion Anterior and posterior L4-S1 fusion 2009 History of open heart surgery (~2018) Status post resection of atrial myxoma. Hx o
[2022-08-04 08:00] VITALS: PULSE 102
[2022-08-04 08:30] VITALS: O2SAT 92
[2022-08-04 08:32] VITALS: O2SAT 92
== END 2022-08-04 10:00 | disposition home or self-care (01) ==
LOC: ANHED 20:51 → ANH3MED 21:28
PROVIDERS: Emergency Medicine; Admitting Provider Internal Medicine; Emergency Provider Emergency Medicine; PCP Family Medicine; Visit Provider Physician Assistant
DX: I26.99 Other pulmonary embolism without acute cor pulmonale (principal); C34.90 Malignant neoplasm of unspecified part of unspecified bronchus or lung; C79.51 Secondary malignant neoplasm of bone; Z86.718 Personal history of other venous thrombosis and embolism; Z86.711 Personal history of pulmonary embolism; Z87.891 Personal history of nicotine dependence; J44.9 Chronic obstructive pulmonary disease, unspecified; G89.4 Chronic pain syndrome; D64.9 Anemia, unspecified; Z20.822 Contact with and (suspected) exposure to COVID-19
CPT/HCPCS: 71046; 71275; 80053; 83690; 83880; 84484; 85025; 85610; 85730; 87637; 93005; 94640; 96361; 96372; 96374; 99291; A9270; G0378; J1170; J1650; J7030; Q9967

== ENCOUNTER 2022-08-11 09:41 | Outpatient (CLI) | payer MEDICARE, MEDICAID, SELFPAY ==
[2022-08-11 10:49] LABS: Hematocrit 34.4 % (42.0-52.0); Hemoglobin 10.5 g/dL (14.0-18.0); Mean Corpuscular HGB Conc 30.5 g/dl (32-36); Mean Corpuscular Hemoglobin 24.9 pg (26-34); Mean Corpuscular Volume 81.7 fl (80-100); Mean Platelet Volume 10.5 fl (7.4-10.4); Platelet Count Result 220 k/mm3 (150-375); Red Blood Count 4.21 M/mm3 (4.6-6.20); White Blood Count 5.4 K/mm3 (4.5-10.0)
== END 2022-08-11 09:42 | disposition home or self-care (01) ==
PROVIDERS: PCP Family Medicine; Visit Provider Internal Medicine
DX: I26.99 Other pulmonary embolism without acute cor pulmonale (principal)
CPT/HCPCS: 36415; 85027

== ENCOUNTER 2022-09-26 19:28 | Observation (INO) | payer MEDICARE, MEDICAID, SELFPAY ==
--- NOTE | ~2022-09-26 | XR_ITS ---
EXAMINATION: XR chest 1V portable Exam Date/Time: 09/26/2022 19:41 CDT HISTORY: dyspnea WEAKNESS Comparison: 08/03/2022. RESULT: Lines, tubes, and devices: Left chest pacer terminating in the distal SVC. Intact sternotomy wires. Cholecystectomy clips. Lungs and pleura: No pneumothorax, large effusion, or focal consolidation. Unchanged left upper lung mass, previously described treated bronchogenic carcinoma. Right hemidiaphragm tenting and lateral p leural parenchymal scarring. Cardiomediastinal silhouette: Stable. Other: No acute osseous or upper abdominal finding. IMPRESSION: No acute cardiopulmonary process. Reviewed, dictated and finalized at location K.
--- NOTE | ~2022-09-26 | CT_ITS ---
EXAMINATION: CTA chest PE protocol DATE: 09/26/2022 20:54 INDICATION: dyspnea, hx of lung ca and hx of PE TECHNIQUE: Computed tomography angiography (CTA) of the chest was performed with 100 mL Omnipaque-350 intravenous contrast timed to evaluate the pulmonary arteries. Coronal maximum intensity projection 3D-reconstructions were created by the technologist. The dose-length product (DLP) was 575.21 mGy-cm. Automated exposure control and iterative reconstruction technique were employed. COMPARISON: 05/15/2022. FINDINGS: Lung parenchyma and airways: Demonstration of the post therapeutic and possibly postradiation changes in the right hilum, right upper lobe, and superior portion of the right lower lobe. Overall improved /decreased size of the prior study Pleura: Unchanged small right pleural effusion. Thoracic inlet, axillae and chest wall: Intact sternotomy wires. Left chest port terminating in the S VC.. Thoracic aorta: Minimal arch calcification.. Mediastinum: Right hilar scar and retraction.. Heart and pericardium: Normal. Coronary artery calcifications: Mild. Upper abdomen: No significant finding. Bones: No acute osseous finding. Thoracic spine metastases. Pulmonary arteries: Study quality: Adequate. No pulmonary emboli detected. IMPRESSION: No CT evidence of acute pulmonary embolus. Right lung bronchogenic carcinoma. Post therapeutic/radiat ion changes. Small right pleural effusion. Osseous metastases Reviewed, dictated and finalized at location K. IMPRESSION: No CT evidence of acute pulmonary embolus. Right lung bronchogenic carcinoma. P ost therapeutic/radiation changes. Small right pleural effusion. Osseous metast ases
--- NOTE | ~2022-09-26 | CT_ITS ---
EXAMINATION: CT brain wo con DATE: 09/27/2022 19:05 INDICATION: Altered mental status, convulsions . TECHNIQUE: Computed tomography (CT) of the head was performed without intravenous contrast. The mA wa s adjusted according to patient size. Iterative reconstruction technique was employed. The dose-lengt h product was 605.33 mGy-cm. COMPARISON: 01/17/2022. FINDINGS: No acute intracranial hemorrhage or extra-axial fluid collection. No hydrocephalus, mass, or herniation. No acute ischemic infarct. Unremarkable dural venous sinus attenuation. No acute osseous abnormality. Healed/post therapeutic appearance of the previously described lytic ri ght skull lesion. Nodular mucosal thickening in the right sphenoid sinus, the remaining aerated spaces are clear. IMPRESSION: No acute intracranial process. Reviewed, dictated and finalized at location K.
[2022-09-26 19:36] VITALS: BP 106/62; PULSE 142; RESP 18; TEMP 37.5; O2SAT 93; O2SAT 94
--- NOTE | 2022-09-26 19:39 | ECG_ITS ---
Measurements Intervals [place] Rate: 134 P: [place]: 0 QRS: 54 QRSD: 74 T: 72 QT: 362 QTc: 542 Interpretive Statements PROBABLE SINUS TACHYCARDIA WITH FREQUENT PREMATURE ATRIAL CONTRACTIONS WITH ABERRANT CONDUCTION OR VENTRICULAR PREMATURE COMPLEXES BASELINE ARTIFACT NONSPECIFIC ST & T-WAVE ABNORMALITY ABNORMAL ECG COMPARED TO ECG 08/03/2022 19:09:21 HEART RATE HAS INCREASED ABERRANT CONDUCTION OF SUPRAVENTRICULAR BEAT(S) NOW PRESENT Electronically Signed On 09-27-2022 18:22:53 CDT by Rodriguez Neil M.D.
[2022-09-26 19:40] VITALS: O2SAT 94
--- NOTE | 2022-09-26 19:45 | ED.GENADULT ---
HPI - General Adult General Chief complaint: Shortness of Breath/Dyspnea Stated complaint: sob Time Seen by Provider: 09/26/22 19:31 History of Present Illness HPI narrative: Patient 62-year-old gentleman who presents the emergency department with chief complaint of shortness of breath. Patient has prior history of lung cancer and is also had a pulmonary embolism. The patient was last admitted to the hospital about a month ago patient is currently undergoing chemo and immunotherapy patient reports this evening he started feeling anxious and very short of breath the patient was found to be 89% on room air by EMS and was diaphoretic. The patient and the patient's reports this is similar to whenever he had his pulmonary embolism. The patient reports that he has been compliant with his anticoagulant and did miss 1 dose today at 5 PM but otherwise has not missed any doses. Patient reports that he has had a cough but reports no fevers. Related Data Home Medications Medication Instructions Recorded Confirmed duloxetine 30 mg capsule,delayed 30 mg PO HS 11/07/19 09/08/22 release duloxetine 60 mg capsule,delayed 60 mg PO QAM 11/07/19 09/08/22 release pregabalin 225 mg capsule 225 mg PO BID 11/07/19 09/08/22 triamcinolone acetonide 0.1 % 1 applic topical QID PRN psioriasis 11/07/19 09/08/22 topical cream cholecalciferol (vitamin D3) 1,250 1,250 mcg PO WEEKLY 09/09/20 09/08/22 mcg (50,000 unit) capsule tamsulosin 0.4 mg capsule 0.4 mg PO DAILY 01/10/22 09/08/22 metoprolol tartrate 25 mg tablet 12.5 mg PO BID 04/22/22 09/08/22 oxycodone 5 mg tablet 5 mg PO Q4-6H PRN pain 04/22/22 09/08/22 albuterol sulfate 90 mcg/actuation 2 inh inhalation Q4H PRN Shortness 05/15/22 09/08/22 aerosol inhaler Of Breath Or Wheezing cyanocobalamin (vitamin B-12) 2,500 mcg sublingual DAILY 07/18/22 09/08/22 2,500 mcg sublingual tablet (Vitamin B-12) fentanyl 75 mcg/hr transdermal 1 patch transdermal Q72H 01/31/23 03/24/23 patch ferrous sulfate 325 mg (65 mg 325 mg PO DAILY 07/18/22 09/08/22 iron) tablet (iron) folic acid 1 mg tablet 1 mg PO DAILY 07/26/22 09/08/22 omeprazole 40 mg capsule,delayed 40 mg PO DAILY 08/03/22 09/08/22 release ondansetron HCl 8 mg tablet 8 mg PO QID NAUSEA 08/03/22 09/08/22 oxycodone 40 mg tablet,crush 40 mg PO BID 08/03/22 09/08/22 resistant,extended release 12 hr (OxyContin) tizanidine 4 mg tablet 4 mg PO TID PRN Muscle Spasm 08/03/22 09/08/22 Allergies Allergy/AdvReac Type Severity Reaction Status Date / Time bee venom protein (honey bee) Allergy Unknown Swelling Verified 09/08/22 14:33 Review of Systems Review of Systems: A 10 system review of systems was completed on the patient and is negative except for what is stated in the HPI. Nursing and ancillary documentation was reviewed. [facility] Past Medical History Medical History Adenocarcinoma, lung Non-small cell carcinoma diagnosed June 2018. Follows with Dr. Baez and Dr. Cavazos; underwent radiation therapy from 12/05/2018 to 12/18/2018 and again in fall 2021 due to recurrence. Now with metastatic disease to lymph nodes and bone. He is currently receiving chemotherapy and has plans to start Keytruda on August 18. Anxiety Atrial fibrillation S/p cardiac ablation by Dr. 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 Followed by Dr. Parson at [facility] last seen around December 2018. Chronic pain syndrome Due to chronic lower back pain after complications with lower spinal fusion 2009. COPD (chronic obstructive pulmonary disease) History of DVT (deep vein thrombosis) Right upper extremity DVT and bilateral PE December 2018 for which he took Xarelto for several months. History of pulmonary embolism December 2018 Hypertension Reports he is no longer on medications for such. Mass of lung Peripheral
[2022-09-26] MEDS: IPRATROPIUM BR 0.02% INH SOLN 0.5 MG/2.5 ML VIAL INHALATION (20:00)
[2022-09-26] MEDS: LEVALBUTEROL NEB 1.25 MG/3 ML INHALATION (20:00)
[2022-09-26 20:05] VITALS: PULSE 133; RESP 14
[2022-09-26 20:14] VITALS: PULSE 130; RESP 15
[2022-09-26 20:14] LABS: Basophils Percent Auto 0.2 % (0.2-1.2); Eosinophils Absolute Auto 0.1 K/mm3 (0-0.3); Eosinophils Percent Auto 1.5 % (0-4.4); Hematocrit 36.5 % (42.0-52.0); Hemoglobin 11.5 g/dL (14.0-18.0); Immature Granulocyte Absolute 0.05 K/mm3 (0.00-0.031); Immature Granulocyte Percent A 0.6 % (0-0.5); Lymphocytes Absolute Auto 0.83 K/mm3 (0.9-3.2); Lymphocytes Percent Auto 9.7 % (18.3-44.2); Mean Corpuscular HGB Conc 31.5 g/dl (32-36); Mean Corpuscular Hemoglobin 26.9 pg (26-34); Mean Corpuscular Volume 85.5 fl (80-100); Mean Platelet Volume 10.3 fl (7.4-10.4); Monocytes Absolute Auto 0.8 K/mm3 (0.1-0.6); Monocytes Percent Auto 8.7 % (2.6-8.5); Neutrophils Absolute Auto 6.8 K/mm3 (1.3-6.7); Neutrophils Percent Auto 79.3 % (45.5-73.1); Platelet Count Result 312 k/mm3 (150-375); Red Blood Count 4.27 M/mm3 (4.6-6.20); Red Cell Distribution Width 19.7 % (11.5-14.5); White Blood Count 8.6 K/mm3 (4.5-10.0)
[2022-09-26] MEDS: SODIUM CHLORIDE 0.9% IV 1,000 ML 999 ML IV CONT (20:14)
[2022-09-26 20:23] LABS: INR 1.4; Partial Thromboplastin Time 28.9 SECONDS (22.3-36.8); Prothrombin Time 16.6 Seconds (11.1-14.7)
[2022-09-26 20:28] LABS: Alanine Aminotransferase 25 U/L (6-50); Albumin Level 4.2 g/dL (3.5-5.1); Alkaline Phosphatase 92 U/L (38-126); Anion Gap 7 mmol/L (8-16); Aspartate Amino Transferase 34 U/L (17-59); Bilirubin,Total 1.1 mg/dL (0.2-1.3); Blood Urea Nitrogen 10 mg/dL (9-20); Carbon Dioxide 30 mmol/L (22-30); Chloride 103 mmol/L (98-107); Estimated CRCL calculation 69 ml/min; Estimated Glomerular Filt Rate > 60; Glucose 138 mg/dL (65-110); Lactic Acid Reflex 1.8 mmol/L (0.7-2.0); Magnesium 2.1 mg/dL (1.6-2.3); Potassium 3.7 mmol/L (3.4-5.0); Sodium 140 mmol/L (137-145)
[2022-09-26 20:39] LABS: NT Pro B Type Natriuretic Pept 723 pg/mL (19.9-100); Troponin I < 0.012 ng/mL (0.000-0.034)
[2022-09-26 21:10] LABS: Influenza A QL RT-PCR Negative (Negative); Influenza B QL RT-PCR Negative (Negative); RSV RNA, RT-PCR Negative (Negative); SARS-CoV-2 RNA PCR Negative
[2022-09-26 21:31] VITALS: BP 122/80; PULSE 109; RESP 12; O2SAT 99
[2022-09-26 21:49] LABS: Procalcitonin 0.6 ng/mL
--- NOTE | 2022-09-26 22:18 | PM.IMHP ---
H&P: HPI History of Present Illness Date/Time: 09/26/22 22:18 Chief Complaint: 62 years old male with past medical history of stage IV lung cancer COPD DVT PE AFib presented to the hospital with shortness of breath worsening with activity worsening gradually associated with a intermittent cough intermittent wheeze duration was 89% patient was brought by EMS at the ER patient required [address] scan of the chest was negative for PE negative for pneumonia patient heart rate was up to 130 atrial tachycardia improved with IV hydration nebulizer treatment patient was found to have COPD exacerbation was started on IV steroid nebulizer treatment admitted to the hospital for further evaluation and treatment discussed with the patient regarding antibiotic patient had history of C diff and was worried about starting antibiotic decision was made to hold off IV antibiotic for now Review of Systems Review of Systems: Twelve system review negative except above [facility] Past Medical History Medical History Adenocarcinoma, lung Non-small cell carcinoma diagnosed June 2018. Follows with Dr. Baez and Dr. Cavazos; underwent radiation therapy from 12/05/2018 to 12/18/2018 and again in fall 2021 due to recurrence. Now with metastatic disease to lymph nodes and bone. He is currently receiving chemotherapy and has plans to start Keytruda on August 18. Anxiety Atrial fibrillation S/p cardiac ablation by Dr. 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 Followed by Dr. Parson at [facility] last seen around December 2018. Chronic pain syndrome Due to chronic lower back pain after complications with lower spinal fusion 2009. COPD (chronic obstructive pulmonary disease) History of DVT (deep vein thrombosis) Right upper extremity DVT and bilateral PE December 2018 for which he took Xarelto for several months. History of pulmonary embolism December 2018 Hypertension Reports he is no longer on medications for such. Mass of lung Peripheral neuropathy Seasonal allergies Surgical History Surgical History History of appendectomy In the History of carpal tunnel release Left 2011 History of elbow surgery Left elbow ulnar neurolysis History of lumbar fusion Anterior and posterior L4-S1 fusion 2009 History of open heart surgery (~2018) Status post resection of atrial myxoma. Hx of cholecystectomy In the 90s Family History Family History Father Acute myocardial infarction Pulmonary embolism Sibling Breast cancer Mother Family history of chronic obstructive pulmonary disease Social History Social History Social History: Mr. Garay lives with his ex- Edna in [place]. They have 2 children. 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 He denies significant alcohol use, drinks socially. Smoked 2 packs per day of cigarettes x 40 years and quit 2017. Denies other substance use. Long-term opioid use due to chronic back pain. Ambulates without a cane or walker at home. He designates his leaves as his surrogate decision maker and he wishes to be a full code. However, he states he would not want to be on a ventilator for long-term. Smoking packs per day: 2 Smoking cigarettes per day: 40.0 Years smoked: 40 Smoking pack-years: 80.00 Smoking status: Former smoker Tobacco type: cigarettes Second hand tobacco smoke exposure: No Smoking end date: 06/18/17 Alcohol intake: never Substance use: never Substance use type: does not use Lack of Transportation: No Lack of Food: Never True Current Housing: I Have Housing Concerned About Future Housing: No Difficulty Paying
[2022-09-26] MEDS: methylPREDNISolone SOD SUCC 125 MG VIAL IV PUSH (22:57)
[2022-09-26] MEDS: FAMOTIDINE 20 MG TABLET PO (22:58)
[2022-09-26] MEDS: FUROSEMIDE INJ 40 MG/4 ML VIAL 20 MG IV PUSH (22:58)
[2022-09-26 23:35] LABS: Troponin I < 0.012 ng/mL (0.000-0.034)
[2022-09-26] MEDS: MORPHINE SULFATE (*CRX) 15 MG TAB IR PO (23:42)
[2022-09-26 23:49] VITALS: BMI 26.4
[2022-09-27] VITALS (22 sets, daily range): BP systolic 100–136; BP diastolic 57–80; PULSE 81–113; RESP 14–18; TEMP 36.2–37; O2SAT 93–99
--- NOTE | 2022-09-27 | ECHO_ITS ---
Patient Info Name: Jn Garay Age: 62 years : 1960 Gender: Male Ht: 72 in Wt: 200 lbs BSA: 2.16 m2 HR: 88 bpm BP: 136 / 70 mmHg Heart Rhythm: Atrial Fibrillation Technical Quality: Poor Exam Date: 09/27/2022 9:06 AM [facility]am [facility] Room: 345 Patient Status: Inpatient Admit Date: 09/26/2022 Staff Ordering Physician: Montserrat Forrester M.A., MD Credit Assistant: Estela Young RDCS Attending Provider: Montserrat Forrester M.A., MD Referring Physician: Osvaldo ASTORGA; Exam Type: CA echo doppler color flow Study Info Indications - TACHYCARDIA Complete two-dimensional, color flow and Doppler transthoracic echocardiogram is performed. Reason for Poor Study: patient body habitus Summary 1. Technically difficult study. 2. Left ventricular chamber dimension is normal. 3. Left ventricular systolic function is normal, estimated at 60-65%. 4. Right ventricular chamber dimension is normal. 5. There is mild tricuspid valve regurgitation. 6. There is small anterior pericardial effusion. Left Ventricle Left ventricular chamber dimension is normal. Left ventricular systolic function is normal, estimated at 60-65%. There is no increased left ventricular wall thickness. Right Ventricle Right ventricular chamber dimension is normal. Left Atria Left atrial chamber dimension is normal. Right Atria Right atrial chamber dimension is normal. Atrial Septum Intact interatrial septum visualized by color flow imaging. Aortic Valve The aortic valve is not well visualized. There is no aortic valve stenosis. There is no aortic valve regurgitation. There is moderate aortic valve calcification. Pulmonic Valve The pulmonic valve is not well visualized. Mitral Valve The mitral valve has thickened leaflets. The mitral valve annulus is mildly calcified. Tricuspid Valve There is mild tricuspid valve regurgitation. Pericardium/Pleural There is small anterior pericardial effusion. Inferior Vena Cava Normal inferior vena cava with >50% collapse upon inspiration consistent with normal right atrial pressure, 3 mmHg. Aorta The aortic root size at the sinus of Valsalva is normal. Left Ventricular Outflow Tract Name Value Normal LVOT 2D LVOT Diameter 2.1 cm LVOT Doppler LVOT Peak Gradient 5 mmHg LVOT Mean Gradient 3 mmHg LVOT VTI 22 cm LVOT VTI/AV VTI Ratio 0.8 LVOT Stroke Volume 80 ml LVOT CO 19.9 l/min LVOT CI 9.2 l/min/m2 Pulmonic Valve Name Value Normal PV Doppler PV Peak Gradient 3 mmHg Mitral Valve
[2022-09-27 00:10] LABS: Thyroid Stimulating Hormone Reflex 0.306 uIU/mL (0.465-4.68)
[2022-09-27 00:16] LABS: Appearance Urine Clear (Clear); Bilirubin Urine Negative (Negative); Blood Urine Negative (Negative); Color Urine Yellow (Yellow); Glucose Urine UA Negative (Negative); Ketones Urine Negative (Negative); Leukocyte Esterase Ur Negative LEU/UL (Negative); Nitrate Urine Negative (Negative); Protein Urine Negative (Negative)
[2022-09-27] MEDS: RIVAROXABAN 20 MG TABLET PO ×2 (00:18→17:14)
[2022-09-27 00:27] LABS: Specific Grav Ur 1.036 (1.001-1.035)
[2022-09-27 00:28] LABS: Add Urine Microscopic? NO
[2022-09-27] MEDS: IPRATROPIUM BR 0.02% INH SOLN 0.5 MG/2.5 ML VIAL INHALATION ×4 (03:39→20:07)
[2022-09-27] MEDS: LEVALBUTEROL NEB 1.25 MG/3 ML 0.63 MG INHALATION ×4 (03:39→20:06)
[2022-09-27 05:46] LABS: Basophils Percent Auto 0.1 % (0.2-1.2); Hematocrit 31.5 % (42.0-52.0); Hemoglobin 10.1 g/dL (14.0-18.0); Immature Granulocyte Absolute 0.07 K/mm3 (0.00-0.031); Immature Granulocyte Percent A 0.9 % (0-0.5); Lymphocytes Absolute Auto 0.41 K/mm3 (0.9-3.2); Lymphocytes Percent Auto 5.3 % (18.3-44.2); Mean Corpuscular HGB Conc 32.1 g/dl (32-36); Mean Corpuscular Hemoglobin 27.5 pg (26-34); Mean Corpuscular Volume 85.8 fl (80-100); Mean Platelet Volume 10.3 fl (7.4-10.4); Monocytes Absolute Auto 0.2 K/mm3 (0.1-0.6); Monocytes Percent Auto 1.9 % (2.6-8.5); Neutrophils Absolute Auto 7.2 K/mm3 (1.3-6.7); Neutrophils Percent Auto 91.8 % (45.5-73.1); Platelet Count Result 307 k/mm3 (150-375); Red Blood Count 3.67 M/mm3 (4.6-6.20); Red Cell Distribution Width 19.9 % (11.5-14.5); White Blood Count 7.8 K/mm3 (4.5-10.0)
[2022-09-27] MEDS: methylPREDNISolone SOD SUCC 40 MG VIAL IV PUSH ×3 (05:49→21:12)
[2022-09-27] MEDS: MORPHINE SULFATE (*CRX) 15 MG TAB IR PO (05:55)
[2022-09-27 06:05] LABS: Alanine Aminotransferase 21 U/L (6-50); Albumin Level 3.8 g/dL (3.5-5.1); Alkaline Phosphatase 74 U/L (38-126); Anion Gap 6 mmol/L (8-16); Aspartate Amino Transferase 21 U/L (17-59); Bilirubin,Total 0.8 mg/dL (0.2-1.3); Blood Urea Nitrogen 11 mg/dL (9-20); Calcium 8.3 mg/dL (8.4-10.2); Carbon Dioxide 30 mmol/L (22-30); Chloride 103 mmol/L (98-107); Estimated CRCL calculation 75 ml/min; Estimated Glomerular Filt Rate > 60; Glucose 228 mg/dL (65-110); Magnesium 2.1 mg/dL (1.6-2.3); Potassium 3.4 mmol/L (3.4-5.0); Sodium 139 mmol/L (137-145)
[2022-09-27 06:08] LABS: Anisocytosis 1+ (NORMAL); Ovalocytes 1+ (NORMAL); Platelet Estimate Adequate (Adequate); Schistocytes None Seen (NORMAL)
[2022-09-27 06:10] LABS: Troponin I < 0.012 ng/mL (0.000-0.034)
[2022-09-27 07:17] LABS: Hemoglobin A1C 5.9 % (<5.7)
[2022-09-27 08:16] LABS: Glucose Point of Care 204 mg/dl (65-105)
[2022-09-27] MEDS: INSULIN ASPART (*BKC) 100 UNITS/ML SUB-Q ×2 (09:42→17:13)
[2022-09-27] MEDS: LIDOCAINE 5% PATCH 1 PATCH TRANSDERM (09:42)
[2022-09-27] MEDS: FAMOTIDINE 20 MG TABLET PO ×2 (09:42→21:12)
[2022-09-27] MEDS: MORPHINE SULFATE (*CRX) 2 MG/ML INJ IV PUSH ×3 (09:49→21:18)
[2022-09-27 10:31] LABS: Free T4 Free Thyroxine Reflex 1.51 ng/dL (0.78-2.19)
[2022-09-27] MEDS: TAMSULOSIN HCL 0.4 MG CAPSULE PO (12:01)
[2022-09-27] MEDS: CYANOCOBALAMIN 500 MCG TABLET 2500 MCG BY MOUTH (12:01)
[2022-09-27] MEDS: FERROUS SULFATE 324 MG TABLET PO (12:01)
[2022-09-27] MEDS: DULoxetine HCL 60 MG CAPSULE.DR PO (12:01)
[2022-09-27] MEDS: FOLIC ACID 1 MG TABLET PO (12:02)
[2022-09-27] MEDS: PREGABALIN (*CRX) 75 MG CAPSULE 225 MG PO ×2 (12:02→21:12)
[2022-09-27] MEDS: PANTOPRAZOLE 40 MG TABLET PO ×2 (12:02→21:12)
[2022-09-27] MEDS: METOPROLOL TARTRATE 12.5 MG TABLET PO ×2 (12:02→21:12)
[2022-09-27] MEDS: oxyCODONE HCL (*CRX) 20 MG TAB SR 12HR 60 MG PO ×2 (12:02→21:12)
[2022-09-27] MEDS: LORazepam (*CRX) 0.5 MG TABLET PO ×2 (12:04→21:12)
[2022-09-27 12:20] LABS: Glucose Point of Care 186 mg/dl (65-105)
--- NOTE | 2022-09-27 15:53 | PM.IMPN ---
Progress Note: A&P Assessment and Plan (1) Acute respiratory failure with hypoxia: Code(s): J96.01 - Acute respiratory failure with hypoxia Status: Acute Assessment and Plan: Most likely related to acute COPD exacerbation started nebulizer treatment IV steroid hold off IV antibiotic as patient has history of C diff no evidence of bacterial infection CT scan of the chest negative for PE or pneumonia Follow sputum culture urine pneumococcal antigen Patient requiring 1 L of oxygen. Wean oxygen to maintain O2 saturation greater than 90%. WBC stable (2) Unspecified convulsions: Code(s): R56.9 - Unspecified convulsions Status: Acute Assessment and Plan: Day of ED arrival the patient acting very bizarre and almost having altered mental status as well as progressive weakness. This lasted better part of the afternoon, then later that evening he started to develop with the describes as convulsions. Patient does not remember much of anything from this day. states that he has had these convulsions in the past although patient is alert during these episodes and remembers them. CT head ordered Patient unable to receive MRI due to metal in his spine Discussed case with Dr. Hoffman and she agrees that EEG would be mitchell. Neurology consulted Differential includes possible brain metastases... (3) Pulmonary embolism: Code(s): I26.99 - Other pulmonary embolism without acute cor pulmonale Status: Ruled-out Assessment and Plan: Continue oral anticoagulation pending home medication reconciliation patient stated that he is compliant with medication did not miss any dose of his home medication CTA chest negative for PE (4) Atrial fibrillation: Code(s): I48.91 - Unspecified atrial fibrillation Status: Acute Assessment and Plan: resume home medication (5) Adenocarcinoma, lung: Qualifiers: Laterality: right Qualified Code(s): C34.91 - Malignant neoplasm of unspecified part of right bronchus or lung Code(s): C34.90 - Malignant neoplasm of unspecified part of unspecified bronchus or lung Status: Chronic Assessment and Plan: Patient have established follow-up with Heme-Onc as outpatient (6) COPD (chronic obstructive pulmonary disease): Code(s): J44.9 - Chronic obstructive pulmonary disease, unspecified Status: Chronic Assessment and Plan: Acute COPD exacerbation nebulizer treatment IV steroid, refusal of antibiotic therapy due to history of C diff Subjective Date/time seen: 09/27/22 15:53 Interval history: Patient laying in bed in pain with his at bedside. Patient okayed to discuss medical care front of his . Patient's states that what led him into the hospital was On the day of ED arrival the patient acting very bizarre and almost having altered mental status as well as progressive weakness. Patient's was very worried about him and stated that he got aggressive when she suggested going to the hospital. This lasted better part of the afternoon, then later that evening he started to develop with the describes as convulsions. Patient does not remember much of anything from this day. states that he has had these convulsions in the past although patient is alert during these episodes and remembers them. the says that patient was having these convulsions while in the ambulance as well as in the ED. Patient has chronic pain and has metastatic cancer. Patient is A&O times x4 at the time of our talk. he denies nausea, vomiting, chest pain, increased shortness of breath, body aches, chills. Patient short of breath at baseline and is on 1 L of oxygen although he normally does not wear oxygen at Home. Review of Systems Review of Systems: All systems reviewed & are unremarkable except as noted in HPI and below E
[2022-09-27 17:14] LABS: Glucose Point of Care 209 mg/dl (65-105)
[2022-09-27 19:54] LABS: Amphetamine Screen Urine Negative (Negative); Barbiturate Screen Urine Negative (Negative); Benzodiazepines Screen Urine Negative (Negative); Cannabinoid Screen Urine Negative (Negative); Cocaine Screen Urine Negative (Negative); Methadone Screen Urine Negative (Negative); Opiate Screen Urine Positive (Negative); Phencyclidine Screen Urine Negative (Negative)
[2022-09-27] MEDS: DULoxetine HCL 30 MG CAPSULE.DR PO (21:12)
[2022-09-27 21:34] LABS: Glucose Point of Care 129 mg/dl (65-105)
[2022-09-28] VITALS (15 sets, daily range): BP systolic 109–129; BP diastolic 56–74; PULSE 79–100; RESP 16–18; TEMP 36.4–36.8; O2SAT 90–97
[2022-09-28] MEDS: IPRATROPIUM BR 0.02% INH SOLN 0.5 MG/2.5 ML VIAL INHALATION ×3 (01:46→13:01)
[2022-09-28] MEDS: LEVALBUTEROL NEB 1.25 MG/3 ML 0.63 MG INHALATION ×3 (01:46→13:01)
[2022-09-28] MEDS: methylPREDNISolone SOD SUCC 40 MG VIAL IV PUSH ×2 (05:20→17:21)
[2022-09-28] MEDS: MORPHINE SULFATE (*CRX) 2 MG/ML INJ IV PUSH (05:20)
[2022-09-28 06:58] LABS: Hematocrit 30.7 % (42.0-52.0); Hemoglobin 9.7 g/dL (14.0-18.0); Immature Granulocyte Absolute 0.13 K/mm3 (0.00-0.031); Immature Granulocyte Percent A 1.3 % (0-0.5); Lymphocytes Absolute Auto 0.54 K/mm3 (0.9-3.2); Lymphocytes Percent Auto 5.4 % (18.3-44.2); Mean Corpuscular HGB Conc 31.6 g/dl (32-36); Mean Corpuscular Hemoglobin 26.8 pg (26-34); Mean Corpuscular Volume 84.8 fl (80-100); Mean Platelet Volume 10.2 fl (7.4-10.4); Monocytes Absolute Auto 0.6 K/mm3 (0.1-0.6); Monocytes Percent Auto 6.2 % (2.6-8.5); Neutrophils Absolute Auto 8.8 K/mm3 (1.3-6.7); Neutrophils Percent Auto 87.1 % (45.5-73.1); Platelet Count Result 362 k/mm3 (150-375); Red Blood Count 3.62 M/mm3 (4.6-6.20); Red Cell Distribution Width 20.4 % (11.5-14.5); White Blood Count 10.1 K/mm3 (4.5-10.0)
[2022-09-28 07:15] LABS: Alanine Aminotransferase 21 U/L (6-50); Albumin Level 3.7 g/dL (3.5-5.1); Alkaline Phosphatase 63 U/L (38-126); Anion Gap 4 mmol/L (8-16); Aspartate Amino Transferase 24 U/L (17-59); Bilirubin,Total 0.6 mg/dL (0.2-1.3); Blood Urea Nitrogen 19 mg/dL (9-20); Calcium 8.4 mg/dL (8.4-10.2); Carbon Dioxide 31 mmol/L (22-30); Chloride 102 mmol/L (98-107); Estimated CRCL calculation 83 ml/min; Estimated Glomerular Filt Rate > 60; Glucose 144 mg/dL (65-110); Magnesium 2.3 mg/dL (1.6-2.3); Potassium 4.1 mmol/L (3.4-5.0); Sodium 137 mmol/L (137-145)
[2022-09-28 08:20] LABS: Glucose Point of Care 143 mg/dl (65-105)
--- NOTE | 2022-09-28 08:27 | PM.IMPN ---
Progress Note: A&P Assessment and Plan (1) Acute respiratory failure with hypoxia: Code(s): J96.01 - Acute respiratory failure with hypoxia Status: Acute Assessment and Plan: Most likely related to acute COPD exacerbation started nebulizer treatment IV steroid hold off IV antibiotic as patient has history of C diff no evidence of bacterial infection CT scan of the chest negative for PE or pneumonia Follow sputum culture urine pneumococcal antigen Patient requiring 1 L of oxygen. Wean oxygen to maintain O2 saturation greater than 90%. WBC stable (2) Unspecified convulsions: Code(s): R56.9 - Unspecified convulsions Status: Acute Assessment and Plan: Day of ED arrival the patient acting very bizarre and almost having altered mental status as well as progressive weakness. This lasted better part of the afternoon, then later that evening he started to develop with the describes as convulsions. Patient does not remember much of anything from this day. states that he has had these convulsions in the past although patient is alert during these episodes and remembers them. CT head ordered Patient unable to receive MRI due to metal in his spine Discussed case with Dr. Hoffman and she agrees that EEG would be mitchell. Neurology consulted Differential includes possible brain metastases... (3) Pulmonary embolism: Code(s): I26.99 - Other pulmonary embolism without acute cor pulmonale Status: Ruled-out Assessment and Plan: Continue oral anticoagulation pending home medication reconciliation patient stated that he is compliant with medication did not miss any dose of his home medication CTA chest negative for PE (4) Atrial fibrillation: Code(s): I48.91 - Unspecified atrial fibrillation Status: Acute Assessment and Plan: resume home medication (5) Adenocarcinoma, lung: Qualifiers: Laterality: right Qualified Code(s): C34.91 - Malignant neoplasm of unspecified part of right bronchus or lung Code(s): C34.90 - Malignant neoplasm of unspecified part of unspecified bronchus or lung Status: Chronic Assessment and Plan: Patient have established follow-up with Heme-Onc as outpatient (6) COPD (chronic obstructive pulmonary disease): Code(s): J44.9 - Chronic obstructive pulmonary disease, unspecified Status: Chronic Assessment and Plan: Acute COPD exacerbation nebulizer treatment IV steroid, refusal of antibiotic therapy due to history of C diff Subjective Date/time seen: 09/28/22 08:27 Interval history: Patient laying in bed in pain with his at bedside. Patient okayed to discuss medical care front of his . Patient's states that what led him into the hospital was On the day of ED arrival the patient acting very bizarre and almost having altered mental status as well as progressive weakness and lower extremity edema. Patient's was very worried about him and stated that he got aggressive when she suggested going to the hospital. This lasted better part of the afternoon, then later that evening he started to develop with the describes as convulsions. Patient does not remember much of anything from this day. states that he has had these convulsions in the past although patient is alert during these episodes and remembers them. the says that patient was having these convulsions while in the ambulance as well as in the ED. Patient has chronic pain and has metastatic cancer. 09/28/22 Objective Data Vital Signs Vital Signs: Vital Signs - 24 hr 09/27/22 09:45 09/27/22 09:45 09/27/22 12:02 Temperature Pulse Rate 81 81 Respiratory Rate Blood Pressure Pulse Oximetry 96 Oxygen Delivery Nasal Cannula Oxygen Flow Rate 1 09/27/22 12:00 09/27/22 13:38 09/27/22 13:41 Temperature Pulse
[2022-09-28] MEDS: CYANOCOBALAMIN 500 MCG TABLET 2500 MCG BY MOUTH (09:26)
[2022-09-28] MEDS: PANTOPRAZOLE 40 MG TABLET PO (09:27)
[2022-09-28] MEDS: PREGABALIN (*CRX) 75 MG CAPSULE 225 MG PO (09:27)
[2022-09-28] MEDS: DULoxetine HCL 60 MG CAPSULE.DR PO (09:27)
[2022-09-28] MEDS: FAMOTIDINE 20 MG TABLET PO (09:27)
[2022-09-28] MEDS: FERROUS SULFATE 324 MG TABLET PO (09:27)
[2022-09-28] MEDS: oxyCODONE HCL (*CRX) 20 MG TAB SR 12HR 60 MG PO (09:27)
[2022-09-28] MEDS: FOLIC ACID 1 MG TABLET PO (09:27)
[2022-09-28] MEDS: LORazepam (*CRX) 0.5 MG TABLET PO (09:27)
[2022-09-28] MEDS: TAMSULOSIN HCL 0.4 MG CAPSULE PO (09:27)
[2022-09-28] MEDS: fentaNYL (*CRX) 75 MCG PATCH TRANSDERM (09:28)
[2022-09-28] MEDS: METOPROLOL TARTRATE 12.5 MG TABLET PO (09:28)
--- NOTE | 2022-09-28 09:38 | WPDNEURCNPN ---
Assessment and Plan Assessment and plan (1) Unspecified convulsions: Code(s): R56.9 - Unspecified convulsions Status: Acute (2) Acute respiratory failure with hypoxia: Code(s): J96.01 - Acute respiratory failure with hypoxia Status: Acute (3) Metastatic non-small cell lung cancer: Code(s): C34.90 - Malignant neoplasm of unspecified part of unspecified bronchus or lung Status: Acute Plan Jn Garay is a 62 year old male with a history of atrial fibrillation, pulmonary embolism, metastatic lung cancer who presented due to acute respiratory distress. reports episode of confusion and convulsive activity on presentation, as well as prior history of convulsions as well. Description from patient regarding prior spells sounds more like orthostatic intolerance leading to convulsive syncope. However, not much detail is known surrounding the episode that occurred on presentation. - Will obtain routine EEG - Discussed that patient does not need any anti-seizure medications unless his EEG is significantly abnormal Consult date: 09/28/22 Reason for consult: Seizure-like activity HPI: Jn Garay is a 62 year old male with a history of atrial fibrillation, pulmonary embolism, metastatic lung cancer who presented due to acute respiratory distress. Patient presented due to shortness of breath to [facility] ED. There are reports that patient was altered on presentation (although ED documentation makes no mention of altered mentation, and documents AOx3). reports that he was confused for the rest of the afternoon, and in the evening developed convulsion . Patient has no recollection of the entire day. Per , patient has had convulsions in the past but he is alert during them and has recollection of the spells. 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 His CT head showed no acute abnormalities or obvious metastases. Patient is on a number of medications including Cymbalta, PRN Ativan, PRN oxycodone/OxyContin, Fentanyl patch, and Lyrica (225mg BID). Patient reports that for the past several years, he has had episodes of full body shaking that occurs when he gets up and starts walking. This happens about 4-5 times per year. His knees start buckling and arms start shaking, but he is fully aware of these movements. There have been occasions where he has lost consciousness afterwards for a few seconds and fallen. Patient also reports positional lightheadedness when going from sitting to standing. He denies any tongue biting or urinary incontinence with the spells. He does not drive. His father has a history of epilepsy. Review of Systems Constitutional: Constitutional: Reports no additional constitutional complaints Eyes: Eyes: Reports no additional eye complaints ENT: Reports system reviewed and no additional complaints, except as documented Cardiovascular: Cardiovascular: Reports lightheadedness Respiratory: Respiratory: Reports cough and Reports dyspnea Gastrointestinal: Gastrointestinal: Reports constipation Genitourinary: Genitourinary: Reports no additional male genitourinary complaints Musculoskeletal: Musculoskeletal: Reports no additional musculoskeletal complaints Integumentary/Breasts: Skin/Breast: Reports system reviewed and no additional complaints, except as docu Neurologic: Reports as per HPI Psychiatric: Psychiatric: Reports anxiety and Reports depression [facility] Past Medical History Medical History Adenocarcinoma, lung Non-small cell carcinoma diagnosed June 2018. Follows with Dr. Baez and Dr. Cavazos; underwent radiation therapy from 12/05/2018 to 12/18/2018 and again in fall 2021 due to recurrence. Now with metastatic disease to lymph nodes and bone. He is currently receiving chemotherapy and has plans to start Keytruda on August 18. Anxiety Atrial fibrillatio
[2022-09-28 11:43] LABS: Glucose Point of Care 154 mg/dl (65-105)
--- NOTE | 2022-09-28 13:48 | WPDNEUROLOGY ---
Neurology EEG Report General Information Date of Study: 09/28/22 TEST Routine EEG DIAGNOSIS Convulsions CONDITION OF RECORDING Awake, drowsy, asleep EEG NUMBER [id number] CLINICAL HISTORY Patient reports history of convulsions described as full body shaking and intact awareness. He presented to the hospital with convulsions but has no recollection of that episode. EEG DESCRIPTION During the awake state with eyes closed the background consists of 6 Hz posterior dominant rhythm which attenuates appropriately with eye opening. The recording is continuous. There is a well developed anterior-posterior gradient. No significant asymmetries of background activities are noted. With drowsiness there is waxing and waning of the dominant rhythm with eventual replacement by a mixture of beta, alpha, and theta activity. As the patient enters stage II sleep, K-complexes are present. Arousal was unremarkable. There are no epileptiform discharges or seizures during this recording. Hyperventilation and photic stimulation were not performed. IMPRESSION This is a mildly abnormal routine EEG recorded in awake and asleep states due to the presence of mild slowing of posterior dominant rhythm. This can be seen in the setting of mild encephalopathy. There are no electrographic seizures identified, nor are there any epileptiform discharges. Clinical correlation is recommended.
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
[2022-09-28 16:51] LABS: Glucose Point of Care 133 mg/dl (65-105)
[2022-09-28] MEDS: RIVAROXABAN 20 MG TABLET PO (17:22)
[2022-09-30 21:54] LABS: Pneumococcal Antigen Urine Not Detected (Not Detected)
== END 2022-09-28 18:00 | disposition home or self-care (01) ==
LOC: ANHED 22:19 → ANH3MED 23:06
PROVIDERS: Admitting Provider Internal Medicine; Emergency Provider Emergency Medicine; PCP Family Medicine; Visit Provider Internal Medicine Critical Care Medicine
DX: J96.01 Acute respiratory failure with hypoxia (principal); R56.9 Unspecified convulsions; I26.99 Other pulmonary embolism without acute cor pulmonale; I48.91 Unspecified atrial fibrillation; C34.90 Malignant neoplasm of unspecified part of unspecified bronchus or lung; C77.9 Secondary and unspecified malignant neoplasm of lymph node, unspecified; C79.51 Secondary malignant neoplasm of bone; J44.9 Chronic obstructive pulmonary disease, unspecified; I10 Essential (primary) hypertension; F41.9 Anxiety disorder, unspecified; N40.0 Benign prostatic hyperplasia without lower urinary tract symptoms; D15.1 Benign neoplasm of heart; Z20.822 Contact with and (suspected) exposure to COVID-19; J90 Pleural effusion, not elsewhere classified; R53.1 Weakness; I07.1 Rheumatic tricuspid insufficiency; R73.9 Hyperglycemia, unspecified; B96.89 Other specified bacterial agents as the cause of diseases classified elsewhere; R94.31 Abnormal electrocardiogram [ECG] [EKG]; F11.20 Opioid dependence, uncomplicated; Z86.711 Personal history of pulmonary embolism; Z79.52 Long term (current) use of systemic steroids; Z79.51 Long term (current) use of inhaled steroids; Z79.01 Long term (current) use of anticoagulants; Z79.899 Other long term (current) drug therapy
CPT/HCPCS: 36415; 70450; 71045; 71275; 80053; 80307; 81003; 82948; 83036; 83605; 83735; 83880; 84145; 84439; 84443; 84480; 84484; 85025; 85610; 85730; 87040; 87070; 87077; 87185; 87205; 87637; 87899; 93005; 93306; 94640; 95816; 96361; 96374; 96375; 96376; 99285; A9270; G0378; J1815; J1940; J2270; J2920; J2930; J7030; Q9967

== ENCOUNTER 2022-12-13 09:50 | Outpatient (CLI) | payer MEDICARE, MEDICAID, SELFPAY ==
--- NOTE | ~2022-12-13 | NM_ITS ---
EXAMINATION: NM bone scan whole body DATE: 12/13/2022 13:51 INDICATION: Non-small cell right lung cancer. TECHNIQUE: 25 mCi Tc-99m HDP was administered intravenously. Delayed whole-body scintigrams were obt ained. COMPARISON: Bone scan dated 04/25/2022 and 12/30/2021, PET/CT dated 07/06/[address] chest dated 023 FINDINGS: No significant change in a large region of increased uptake along the right side of the calvarium. Ag ain seen are multiple additional smaller foci of abnormal bone uptake including in the spine at C7, T 7, T10, T12 and L5, at the posterior right eighth rib, anterior right fourth and seventh ribs, at the lateral right iliac crest, bilateral posterior iliac spines, right sacrum and right greater trochant er. The intensity appears greater than on the most recent prior study but still decreased compared wi th 12/30/2021. No new lesions are identified. IMPRESSION: 1. Slightly increased activity both no change in number or distribution of several metastatic bone le sions in the axial and appendicular skeleton which could represent increasing sclerosis related to pr ior treatment. No new lesions to suggest progression of disease. Reviewed, dictated and finalized at location A. IMPRESSION: 1. Slightly increased activity both no change in number or distribution of chelsea ral metastatic bone lesions in the axial and appendicular skeleton which could represent increasing sclerosis related to prior treatment. No new lesions to marin ggest progression of disease.
--- NOTE | ~2022-12-13 | CT_ITS ---
Clinical Indication: Right lung cancer CT Scan of the Chest with Contrast: Technique: Contiguous sections were acquired throughout the chest after intravenous administration of 75 cc of Omnipaque 350. Dose reduction technique was used on this scan by utilizing automated exposu re control and iterative reconstruction technique. The dose-length product (DLP) was 258.69 mGy-cm. COMPARISON: 09/26/2022 Findings: Left-sided Mediport in place. There is no evidence of any significant mediastinal, hilar or axillary lymphadenopathy. No large cent ral pulmonary embolus identified. There is no evidence of aortic dissection or aneurysm. There is no evidence of pleural or pericardial effusion. Right upper lobe consolidation with air bronchograms is present, extending into the hilum and probabl y into the superior segment of the right lower lobe, similar to prior exam. Previously noted small ri ght pleural effusion is resolved. Images through the upper abdomen reveal diffuse fatty infiltration of the liver. There are stable sclerotic lesions the spine, most prominent at T10 and T12, several smaller scattere d lesions present. Impression: Stable consolidation at the right upper lobe extending to the right hilum and superior segment right lower lobe. Findings could reflect postradiation change/treatment malignancy. Residual active maligna ncy is difficult to completely exclude, but the extent of airspace disease is stable to possibly mini allyson improved from prior exam. Previously noted small right pleural effusion is resolved. Stable sclerotic osseous lesions, compatible with osseous metastatic disease, possibly treated diseas e. Diffuse fatty infiltration of the liver. Reviewed, dictated and finalized at location . Impression: Stable consolidation at the right upper lobe extending to the right hilum and s uperior segment right lower lobe. Findings could reflect postradiation change/t reatment malignancy. Residual active malignancy is difficult to completely excl ude, but the extent of airspace disease is stable to possibly minimally improve d from prior exam. Previously noted small right pleural effusion is resolved. Stable sclerotic osseous lesions, compatible with osseous metastatic disease, p ossibly treated disease. Diffuse fatty infiltration of the liver.
== END 2022-12-13 09:51 | disposition home or self-care (01) ==
LOC: ANHIMG 09:52
PROVIDERS: PCP Family Medicine; Visit Provider Internal Medicine Hematology & Oncology
DX: C34.91 Malignant neoplasm of unspecified part of right bronchus or lung (principal); C79.51 Secondary malignant neoplasm of bone; K76.0 Fatty (change of) liver, not elsewhere classified
CPT/HCPCS: 71260; 78306; A9503; Q9967

== ENCOUNTER 2023-03-02 08:57 | Outpatient (CLI) | payer MEDICARE, MEDICAID, SELFPAY ==
--- NOTE | ~2023-03-02 | CT_ITS ---
Clinical Indication: Lung cancer CT Scan of the Chest with Contrast: Technique: Contiguous sections were acquired throughout the chest after intravenous administration of 85 cc of Omnipaque 350. Dose reduction technique was used on this scan by utilizing automated exposu re control and iterative reconstruction technique. The dose-length product (DLP) was 224.69 mGy-cm. COMPARISON: 12/13/2022 Findings: There is no evidence of any significant mediastinal, hilar or axillary lymphadenopathy. There is no f illing defect in the pulmonary arterial tree to suggest pulmonary embolus. There is no evidence of ao rtic dissection or aneurysm. There is no evidence of pleural or pericardial effusion. There is stable right upper lobe consolidation and distortion, suggestive of post therapy change and/ or treated disease. Images through the upper abdomen reveal diffuse fatty infiltration of the liver and cholecystectomy c lips. There are stable sclerotic lesions at T10 and T12. Several scattered small sclerotic lesions are prob ably unchanged as well. Impression: Stable consolidation or distortion the right upper lobe. Stability suggests post therapy change/treat ed disease. Stable sclerotic osseous lesions, consistent with osseous metastatic disease, possibly treated diseas e. Diffuse fatty infiltration of liver. Reviewed, dictated and finalized at location M. Impression: Stable consolidation or distortion the right upper lobe. Stability suggests pos t therapy change/treated disease. Stable sclerotic osseous lesions, consistent with osseous metastatic disease, p ossibly treated disease. Diffuse fatty infiltration of liver.
== END 2023-03-02 08:58 | disposition home or self-care (01) ==
PROVIDERS: PCP Family Medicine; Visit Provider Internal Medicine Hematology & Oncology
DX: C34.91 Malignant neoplasm of unspecified part of right bronchus or lung (principal); R91.8 Other nonspecific abnormal finding of lung field; M89.9 Disorder of bone, unspecified; K76.0 Fatty (change of) liver, not elsewhere classified
CPT/HCPCS: 71260; Q9967

== ENCOUNTER 2023-03-22 16:38 | Emergency (ER) | payer MEDICARE, MEDICAID, SELFPAY ==
[2023-03-22] VITALS (7 sets, daily range): BP systolic 110–127; BP diastolic 69–76; PULSE 84–101; RESP 12–21; TEMP 36.4; O2SAT 97–99
--- NOTE | ~2023-03-22 | US_ITS ---
EXAMINATION: US venous doppler [facility] DATE: 03/22/2023 21:07 INDICATION: Lower limb edema. TECHNIQUE: Grayscale ultrasound images without and with compression and Doppler ultrasound images of the bilateral lower extremity veins were obtained. COMPARISON: Ultrasound 05/15/2022 FINDINGS: The visualized portions of right common femoral vein, profunda (deep) femoral vein, femoral vein, pop liteal vein, peroneal veins, posterior tibial veins, and greater saphenous vein outflow are patent. The visualized portions of left common femoral vein, profunda femoral vein, femoral vein, popliteal v ein, peroneal veins, posterior tibial veins, and greater saphenous vein outflow are patent. IMPRESSION: 1. No deep venous thrombosis. Reviewed, dictated and finalized at location E.
--- NOTE | ~2023-03-22 | CT_ITS ---
EXAMINATION: CTA chest PE protocol DATE: 03/22/2023 20:17 INDICATION: Chest pain. Shortness of breath. TECHNIQUE: Computed tomography angiography (CTA) of the chest was performed with 100 mL Omnipaque-350 intravenous contrast timed to evaluate the pulmonary arteries. Coronal maximum intensity projection 3D-reconstructions were created by the technologist. Automated exposure control and iterative reconst ruction technique were employed. The dose-length product was 512.22 mGy-cm. COMPARISON: Chest CT 03/02/2023 FINDINGS: There are airspace opacities with volume loss involving right upper lobe and superior segme nt right lower lobe, consistent with radiation fibrosis. There is mild emphysema. There is a small ri ght pleural effusion. There is a left internal jugular port with tip in right atrium. The heart size is normal. No pericardial effusion. There are changes of cholecystectomy. There is diffuse hepatic st eatosis. There is no pulmonary embolus. There is mild thoracic spondylosis. There are sclerotic lesio ns in T7, T9, T10, and T12, consistent with metastatic disease. IMPRESSION: 1. No pulmonary embolus. 2. Stable radiation fibrosis involving right upper lobe and superior segment right lower lobe. 3. Mild emphysema. 4. Worsened small right pleural effusion. 5. Stable sclerotic lesions of bone, consistent with metastatic disease. Reviewed, dictated and finalized at location E. IMPRESSION: 1. No pulmonary embolus. 2. Stable radiation fibrosis involving right upper lobe and superior segment ri ght lower lobe. 3. Mild emphysema. 4. Worsened small right pleural effusion. 5. Stable sclerotic lesions of bone, consistent with metastatic disease.
--- NOTE | ~2023-03-22 | XR_ITS ---
EXAMINATION: XR chest 2V DATE: 03/22/2023 17:36 INDICATION: Chest pain. TECHNIQUE: Frontal and lateral views of the chest were obtained. COMPARISON: Chest single view 09/26/2022, chest CT 03/02/2023 FINDINGS: There are airspace opacities in perihilar right upper lobe with right lung volume loss, con sistent with radiation fibrosis. There is a trace right pleural effusion. No pneumothorax. The heart size is normal. Median sternotomy wires and mediastinal surgical clips are seen, likely from prior co ronary artery bypass grafting. There is a left internal jugular port with tip at superior cavoatrial junction. IMPRESSION: 1. Right upper lobe radiation fibrosis, stable from 09/26/2022. 2. Trace right pleural effusion. Reviewed, dictated and finalized at location E.
--- NOTE | 2023-03-22 16:39 | ECG_ITS ---
Measurements Intervals [place] Rate: 103 P: -73 ID: [id number] QRS: 68 QRSD: 72 T: 69 QT: 347 QTc: 455 Interpretive Statements SINUS TACHYCARDIA WITH OCCASIONAL VENTRICULAR PREMATURE COMPLEXES NONSPECIFIC ST & T-WAVE ABNORMALITY ABNORMAL RHYTHM ECG COMPARED TO ECG 09/26/2022 19:46:11 NO SIGNIFICANT CHANGES Electronically Signed On 03-23-2023 14:16:38 CDT by Rafael Vicente M.D.
[2023-03-22 17:23] LABS: Basophils Percent Auto 0.6 % (0.2-1.2); Eosinophils Absolute Auto 0.2 K/mm3 (0-0.3); Hemoglobin 9.8 g/dL (14.0-18.0); Immature Granulocyte Absolute 0.01 K/mm3 (0.00-0.031); Immature Granulocyte Percent A 0.3 % (0-0.5); Lymphocytes Absolute Auto 0.67 K/mm3 (0.9-3.2); Lymphocytes Percent Auto 19.8 % (18.3-44.2); Mean Corpuscular HGB Conc 30.6 g/dl (32-36); Mean Corpuscular Volume 94.7 fl (80-100); Mean Platelet Volume 10.1 fl (7.4-10.4); Monocytes Absolute Auto 0.3 K/mm3 (0.1-0.6); Neutrophils Absolute Auto 2.2 K/mm3 (1.3-6.7); Neutrophils Percent Auto 66.3 % (45.5-73.1); Platelet Count Result 185 k/mm3 (150-375); Red Blood Count 3.38 M/mm3 (4.6-6.20); Red Cell Distribution Width 15.2 % (11.5-14.5); White Blood Count 3.4 K/mm3 (4.5-10.0)
[2023-03-22 17:32] LABS: Alanine Aminotransferase 25 U/L (6-50); Albumin Level 3.3 g/dL (3.5-5.1); Alkaline Phosphatase 63 U/L (38-126); Anion Gap 4 mmol/L (8-16); Aspartate Amino Transferase 27 U/L (17-59); Bilirubin,Total 0.6 mg/dL (0.2-1.3); Blood Urea Nitrogen 15 mg/dL (9-20); Calcium 8.2 mg/dL (8.4-10.2); Carbon Dioxide 30 mmol/L (22-30); Chloride 104 mmol/L (98-107); Estimated CRCL calculation 93 ml/min; Estimated Glomerular Filt Rate > 60; Glucose 109 mg/dL (65-110); Lipase 22 U/L (23-300); Potassium 3.5 mmol/L (3.4-5.0); Sodium 138 mmol/L (137-145)
[2023-03-22 17:34] LABS: INR 1.6; Prothrombin Time 20.4 Seconds (11.1-14.7)
[2023-03-22 17:35] LABS: Partial Thromboplastin Time 39.5 SECONDS (22.3-36.8)
[2023-03-22 17:44] LABS: Troponin I < 0.012 ng/mL (0.000-0.034)
--- NOTE | 2023-03-22 19:55 | ED.CHESTPAIN ---
HPI - Chest Pain General Chief Complaint: Chest Pain Stated Complaint: chest pain, SOB Time Seen by Provider: 03/22/23 17:40 Source: patient Mode of arrival: ambulatory Limitations: no limitations History of Present Illness HPI narrative: This is a 62 year old male that presents to the ER for chest pain. Ongoing over the last couple of days. Reports right sided intermittent sharp chest pain. Worse with breathing. Reports shortness of breath. Reports history of lung cancer. Currently receives chemotherapy and immunotherapy. Does report a cough. Reports some lower extremity edema. Denies fever. Related Data Home Medications Medication Instructions Recorded Confirmed duloxetine 30 mg capsule,delayed 30 mg PO HS 11/07/19 03/16/23 release (Cymbalta) duloxetine 60 mg capsule,delayed 60 mg PO QAM 11/07/19 03/16/23 release pregabalin 225 mg capsule (Lyrica) 225 mg PO BID 11/07/19 03/16/23 triamcinolone acetonide 0.1 % 1 applic topical QID PRN psioriasis 11/07/19 03/16/23 topical cream (Triderm) cholecalciferol (vitamin D3) 1,250 1,250 mcg PO WEEKLY 09/09/20 03/16/23 mcg (50,000 unit) capsule tamsulosin 0.4 mg capsule 0.4 mg PO DAILY 01/10/22 03/16/23 metoprolol tartrate 25 mg tablet 12.5 mg PO BID 04/22/22 03/16/23 oxycodone 5 mg tablet 5 mg PO Q4-6H PRN pain 04/22/22 03/16/23 albuterol sulfate 90 mcg/actuation 2 inh inhalation Q4H PRN Shortness 05/15/22 03/16/23 aerosol inhaler Of Breath Or Wheezing cyanocobalamin (vitamin B-12) 2,500 mcg sublingual DAILY 07/18/22 03/16/23 2,500 mcg sublingual tablet (Vitamin B-12) fentanyl 75 mcg/hr transdermal 1 patch transdermal Q72H 07/18/22 03/16/23 patch ferrous sulfate 325 mg (65 mg 325 mg PO DAILY 07/18/22 03/16/23 iron) tablet (iron) folic acid 1 mg tablet 1 mg PO DAILY 07/26/22 03/16/23 omeprazole 40 mg capsule,delayed 40 mg PO DAILY 08/03/22 03/16/23 release ondansetron HCl 8 mg tablet 8 mg PO QID NAUSEA 08/03/22 03/16/23 tizanidine 4 mg tablet 4 mg PO TID PRN Muscle Spasm 08/03/22 03/16/23 oxycodone 60 mg tablet,crush 60 mg PO BID 09/26/22 03/16/23 resistant,extended release 12 hr (OxyContin) Allergies Allergy/AdvReac Type Severity Reaction Status Date / Time bee venom protein (honey bee) Allergy Unknown Swelling Verified 03/16/23 10:11 Review of Systems Review of Systems: CONSTITUTIONAL: Denies fever CARDIOVASCULAR: Reports chest pain, and edema. RESPIRATORY: Reports cough and dyspnea. MUSCULOSKELETAL: Reports back pain, joint pain, and myalgia. All systems reviewed & are unremarkable except as noted in HPI and below PMFSH Past Medical History Medical History Adenocarcinoma, lung Non-small cell carcinoma diagnosed June 2018. Follows with Dr. Baez and Dr. Cavazos; underwent radiation therapy from 12/05/2018 to 12/18/2018 and again in fall 2021 due to recurrence. Now with metastatic disease to lymph nodes and bone. He is currently receiving chemotherapy and has plans to start Keytruda on August 18. Anxiety Atrial fibrillation S/p cardiac ablation by Dr. 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 Followed by Dr. Parson at [facility] last seen around December 2018. Chronic pain syndrome Due to chronic lower back pain after complications with lower spinal fusion 2009. COPD (chronic obstructive pulmonary disease) History of DVT (deep vein thrombosis) Right upper extremity DVT and bilateral PE December 2018 for which he took Xarelto for several months. History of pulmonary embolism December 2018 Hypertension Reports he is no longer on medications for such. Mass of lung Peripheral neuropathy Seasonal allergies Surgical History Surgical History History of appendectomy In the History of carpal tunnel release Left 2010 History of elbow surgery Left el
[2023-03-22] MEDS: oxyCODONE HCL (*CRX) 5 MG TAB IR PO (19:58)
[2023-03-22 21:12] LABS: Troponin I < 0.012 ng/mL (0.000-0.034)
[2023-03-22] MEDS: oxyCODONE HCL (*CRX) 40 MG TAB SR 12HR PO (22:51)
[2023-03-22 23:13] LABS: Troponin I < 0.012 ng/mL (0.000-0.034)
--- NOTE | 2023-03-22 23:20 | PC.NURSE ---
pt report and care to SANAZ Godoy. all questions answered.
[2023-03-22] MEDS: HEPARIN SODIUM LOCK FLUSH 500 UNITS/5 ML VIAL (23:33)
--- NOTE | 2023-03-22 23:37 | PC.NURSE ---
This RN administered heparin via port access in order to de-access port. EDP made aware and verbalized confirmation of heparin push.
== END 2023-03-22 23:38 | disposition home or self-care (01) ==
PROVIDERS: Preventive Medicine Aerospace Medicine; Emergency Provider Physician Assistant; PCP Family Medicine
DX: J90 Pleural effusion, not elsewhere classified (principal); J43.9 Emphysema, unspecified; C34.90 Malignant neoplasm of unspecified part of unspecified bronchus or lung; C79.51 Secondary malignant neoplasm of bone; C77.9 Secondary and unspecified malignant neoplasm of lymph node, unspecified; I48.91 Unspecified atrial fibrillation; N40.0 Benign prostatic hyperplasia without lower urinary tract symptoms; G89.4 Chronic pain syndrome; G62.9 Polyneuropathy, unspecified; F41.9 Anxiety disorder, unspecified; Z86.718 Personal history of other venous thrombosis and embolism; Z87.891 Personal history of nicotine dependence; Z98.1 Arthrodesis status; Z90.49 Acquired absence of other specified parts of digestive tract; Z79.01 Long term (current) use of anticoagulants; J70.1 Chronic and other pulmonary manifestations due to radiation; R00.0 Tachycardia, unspecified; R94.31 Abnormal electrocardiogram [ECG] [EKG]; I49.3 Ventricular premature depolarization
CPT/HCPCS: 36415; 71046; 71275; 80053; 83690; 84484; 85025; 85610; 85730; 93005; 93970; 99284; A9270; J1642; Q9967

== ENCOUNTER 2023-05-17 11:49 | Emergency (ER) | payer MEDICARE, MEDICAID, SELFPAY ==
--- NOTE | ~2023-05-17 | XR_ITS ---
Clinical Indication: Shortness of breath, lung cancer PA and lateral views of the chest: Comparison: 03/22/2023 Findings: Left-sided Mediport is in satisfactory position. Irregular right suprahilar pulmonary densi ty is similar to prior exam. There is possible minimal right pleural effusion. Left lung clear. Cardi omediastinal silhouette is within normal limits. Bones and soft tissues are unremarkable. Impression: Stable irregular space opacity/consolidation right suprahilar region, presumably related to history o f lung cancer. Minimal right pleural effusion. Left-sided Mediport. Reviewed, dictated and finalized at location . M TAKER Impression: Stable irregular space opacity/consolidation right suprahilar region, presumabl y related to history of lung cancer. Minimal right pleural effusion. Left-sided Mediport.
--- NOTE | 2023-05-17 11:54 | ECG_ITS ---
Measurements Intervals [place] Rate: 95 P: 50 VT: 186 QRS: 67 QRSD: 80 T: 75 QT: 345 QTc: 435 Interpretive Statements SINUS RHYTHM BASELINE ARTIFACT- I, II, III, AVR, AVL, AVF, V4-V6 NORMAL ECG COMPARED TO ECG 03/22/2023 16:44:19 SINUS RHYTHM NOW PRESENT Electronically Signed On 05-17-2023 12:49:26 MANAGER ASSET [employer]NAGEMENT by Charles Zhou D.O.
[2023-05-17 11:55] VITALS: BP 108/59; PULSE 103; RESP 20; TEMP 37.1; O2SAT 99
[2023-05-17 12:20] LABS: Eosinophils Absolute Auto 0.2 K/mm3 (0-0.3); Eosinophils Percent Auto 6.5 % (0-4.4); Hematocrit 32.2 % (42.0-52.0); Hemoglobin 9.4 g/dL (14.0-18.0); Immature Granulocyte Absolute 0.01 K/mm3 (0.00-0.031); Immature Granulocyte Percent A 0.3 % (0-0.5); Lymphocytes Absolute Auto 0.92 K/mm3 (0.9-3.2); Lymphocytes Percent Auto 27.3 % (18.3-44.2); Mean Corpuscular HGB Conc 29.2 g/dl (32-36); Mean Corpuscular Hemoglobin 27.9 pg (26-34); Mean Corpuscular Volume 95.5 fl (80-100); Mean Platelet Volume 10.8 fl (7.4-10.4); Monocytes Absolute Auto 0.3 K/mm3 (0.1-0.6); Monocytes Percent Auto 10.1 % (2.6-8.5); Neutrophils Absolute Auto 1.9 K/mm3 (1.3-6.7); Neutrophils Percent Auto 55.8 % (45.5-73.1); Platelet Count Result 149 k/mm3 (150-375); Red Blood Count 3.37 M/mm3 (4.6-6.20); Red Cell Distribution Width 15.6 % (11.5-14.5); White Blood Count 3.4 K/mm3 (4.5-10.0)
[2023-05-17 12:29] LABS: Alanine Aminotransferase 18 U/L (6-50); Albumin Level 3.4 g/dL (3.5-5.1); Alkaline Phosphatase 74 U/L (38-126); Anion Gap 7 mmol/L (8-16); Aspartate Amino Transferase 22 U/L (17-59); Bilirubin,Total 0.4 mg/dL (0.2-1.3); Blood Urea Nitrogen 8 mg/dL (9-20); Calcium 8.7 mg/dL (8.4-10.2); Carbon Dioxide 27 mmol/L (22-30); Chloride 106 mmol/L (98-107); Estimated CRCL calculation 93 ml/min; Estimated Glomerular Filt Rate > 60; Glucose 143 mg/dL (65-110); Potassium 3.7 mmol/L (3.4-5.0); Sodium 140 mmol/L (137-145)
[2023-05-17 12:45] LABS: Anisocytosis 1+ (NORMAL); Hypochromasia 1+ (NORMAL); Platelet Estimate Adequate (Adequate); Schistocytes None Seen (NORMAL)
[2023-05-17 15:00] VITALS: BP 118/51; PULSE 84; RESP 18; O2SAT 95
[2023-05-17] MEDS: predniSONE 20 MG TABLET 60 MG PO (15:46)
[2023-05-17 16:00] VITALS: BP 106/50; PULSE 92; RESP 16; O2SAT 96
[2023-05-17 16:17] VITALS: PULSE 95; RESP 16
[2023-05-17] MEDS: IPRATROPIUM BR 0.02% INH SOLN 0.5 MG/2.5 ML VIAL INHALATION (16:17)
[2023-05-17] MEDS: ALBUTEROL SULFATE NEB 2.5 MG/3 ML INH INHALATION (16:17)
[2023-05-17 16:22] LABS: Alveolar/Arterial O2 Gradient 24.8 mmHg; Base Excess ABG 3.6 mEq/l (+/-2.0); Carboxyhemoglobin 0.1 % THb (0-2.0); Device ROOM AIR; Fractional Inspired Oxygen 21 %; HCO3 ABG 28.9 mEq/l (22.0-26.0); Modified Allen's Test Pass; Oxygen Content ABG 14.6 %vol (16.0-22.0); Oxygen Saturation ABG 93.9 % (95.0-100.0); Oxyhemoglobin 92.6 % THb (90.0-100.0); PCO2 ABG 46.6 mmHg (35.0-45.0); PO2 ABG 69.1 mmHg (80.0-100.0); PO2 FiO2 Ratio Arterial Blood 3.29 %; Reduced Hemoglobin 7.3 %THb (0-5.0); Site Drawn LEFT RADIAL; Total Hemoglobin 11.2 g/dL (12.0-18.0)
[2023-05-17 16:30] VITALS: PULSE 94; RESP 13
[2023-05-17 17:01] VITALS: BP 130/72; PULSE 84; RESP 16; O2SAT 96
--- NOTE | 2023-05-17 17:05 | ED.SOB ---
HPI - SOB/Dyspnea General Chief Complaint: Shortness of Breath/Dyspnea Stated Complaint: COPD EXACERBATION HX PE Time Seen by Provider: 05/17/23 14:54 Source: patient, RN notes reviewed and old records reviewed Mode of arrival: ambulatory Limitations: no limitations History of Present Illness HPI Narrative: This is a 62 year old male with history of COPD, stage IV lung cancer s/p radiation on chemo and immunotherapy who presetns for evaluation of shortness of breath. Patient uses albuterol nebulizer at home and he has oxygen at home to use as needed. He states this morning he felt short of breath more than usual. He states he feels better now. He has intermittent wheezing and coughing. He denies chest pain, fever, chills. HE is on chronic anticoagulation. He is currently on room air at 96% on room air. Related Data Home Medications Medication Instructions Recorded Confirmed duloxetine 30 mg capsule,delayed 30 mg PO HS 11/07/19 03/16/23 release (Cymbalta) duloxetine 60 mg capsule,delayed 60 mg PO QAM 11/07/19 03/16/23 release pregabalin 225 mg capsule (Lyrica) 225 mg PO BID 11/07/19 03/16/23 triamcinolone acetonide 0.1 % 1 applic topical QID PRN psioriasis 11/07/19 03/16/23 topical cream (Triderm) cholecalciferol (vitamin D3) 1,250 1,250 mcg PO WEEKLY 09/09/20 03/16/23 mcg (50,000 unit) capsule tamsulosin 0.4 mg capsule 0.4 mg PO DAILY 01/10/22 03/16/23 metoprolol tartrate 25 mg tablet 12.5 mg PO BID 04/22/22 03/16/23 oxycodone 5 mg tablet 5 mg PO Q4-6H PRN pain 04/22/22 03/16/23 albuterol sulfate 90 mcg/actuation 2 inh inhalation Q4H PRN Shortness 05/15/22 03/16/23 aerosol inhaler Of Breath Or Wheezing cyanocobalamin (vitamin B-12) 2,500 mcg sublingual DAILY 07/18/22 03/16/23 2,500 mcg sublingual tablet (Vitamin B-12) fentanyl 75 mcg/hr transdermal 1 patch transdermal Q72H 07/18/22 03/16/23 patch ferrous sulfate 325 mg (65 mg 325 mg PO DAILY 07/18/22 03/16/23 iron) tablet (iron) folic acid 1 mg tablet 1 mg PO DAILY 07/26/22 03/16/23 omeprazole 40 mg capsule,delayed 40 mg PO DAILY 08/03/22 03/16/23 release ondansetron HCl 8 mg tablet 8 mg PO QID NAUSEA 08/03/22 03/16/23 tizanidine 4 mg tablet 4 mg PO TID PRN Muscle Spasm 08/03/22 03/16/23 oxycodone 60 mg tablet,crush 60 mg PO BID 09/26/22 03/16/23 resistant,extended release 12 hr (OxyContin) Allergies Allergy/AdvReac Type Severity Reaction Status Date / Time bee venom protein (honey bee) Allergy Unknown Swelling Verified 03/16/23 10:11 Review of Systems Review of Systems: All systems reviewed & are unremarkable except as noted in HPI and below PMFSH Past Medical History Medical History Adenocarcinoma, lung Non-small cell carcinoma diagnosed June 2018. Follows with Dr. Baez and Dr. Cavazos; underwent radiation therapy from 12/05/2018 to 12/18/2018 and again in fall 2021 due to recurrence. Now with metastatic disease to lymph nodes and bone. He is currently receiving chemotherapy and has plans to start Keytruda on August 18. Anxiety Atrial fibrillation S/p cardiac ablation by Dr. 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 Followed by Dr. Parson at [facility] last seen around December 2018. Chronic pain syndrome Due to chronic lower back pain after complications with lower spinal fusion 2009. COPD (chronic obstructive pulmonary disease) History of DVT (deep vein thrombosis) Right upper extremity DVT and bilateral PE December 2018 for which he took Xarelto for several months. History of pulmonary embolism December 2018 Hypertension Reports he is no longer on medications for such. Mass of lung Peripheral neuropathy Seasonal allergies Surgical History Surgical History History of appendectomy In the History of carpal tunnel release Left 201
== END 2023-05-17 17:40 | disposition home or self-care (01) ==
PROVIDERS: Emergency Medicine; Emergency Provider General Practice; PCP Family Medicine
DX: J44.1 Chronic obstructive pulmonary disease with (acute) exacerbation (principal); C34.90 Malignant neoplasm of unspecified part of unspecified bronchus or lung; I48.91 Unspecified atrial fibrillation; I10 Essential (primary) hypertension; Z87.891 Personal history of nicotine dependence
CPT/HCPCS: 36415; 36600; 71046; 80053; 82375; 82805; 83050; 85025; 85055; 93005; 94640; 99284; J7512

== ENCOUNTER 2023-06-28 08:37 | Outpatient (CLI) | payer MEDICARE, MEDICAID, SELFPAY ==
--- NOTE | ~2023-06-28 | CT_ITS ---
Clinical Indication: Non-small cell right lung cancer CT Scan of the Chest with Contrast: Technique: Contiguous sections were acquired throughout the chest after intravenous administration of 75 cc of Omnipaque 350. Dose reduction technique was used on this scan by utilizing automated exposu re control and iterative reconstruction technique. The dose-length product (DLP) was 319.61 mGy-cm. COMPARISON: 03/22/2023 Findings: There is no evidence of any significant mediastinal, hilar or axillary lymphadenopathy. There is no f illing defect in the pulmonary arterial tree to suggest pulmonary embolus. There is no evidence of ao rtic dissection or aneurysm. Small right pleural effusion present. No left pleural effusion. No pericardial effusion.. There is stable consolidation and volume loss involving the superior segment right lower lobe and the adjacent right upper lobe. No new pulmonary abnormality seen. Images through the upper abdomen reveal diffuse fatty infiltration of the liver. Stable sclerotic oss eous lesions are noted in the spine. Impression: Stable consolidation and volume loss in the superior segment right lower lobe adjacent right upper lo be, compatible with treated disease/postradiation change. Stable sclerotic osseous lesions in the spine, compatible with osseous metastatic disease, possibly t reated. Small right pleural effusion. Diffuse fatty infiltration of liver. Reviewed, dictated and finalized at location M. COURSE BARRIER ATTENDANT Impression: Stable consolidation and volume loss in the superior segment right lower lobe a djacent right upper lobe, compatible with treated disease/postradiation change. Stable sclerotic osseous lesions in the spine, compatible with osseous metastat ic disease, possibly treated. Small right pleural effusion. Diffuse fatty infiltration of liver.
== END 2023-06-28 08:38 | disposition home or self-care (01) ==
PROVIDERS: PCP Family Medicine; Visit Provider Internal Medicine Hematology & Oncology
DX: C34.91 Malignant neoplasm of unspecified part of right bronchus or lung (principal); M89.9 Disorder of bone, unspecified; J90 Pleural effusion, not elsewhere classified; K76.0 Fatty (change of) liver, not elsewhere classified
CPT/HCPCS: 71260; Q9967

== ENCOUNTER 2023-07-14 12:19 | Inpatient (IN) | payer MEDICARE, MEDICAID, SELFPAY ==
[2023-07-14] VITALS (34 sets, daily range): BP systolic 117–157; BP diastolic 63–104; PULSE 84–122; RESP 11–31; TEMP 36.2–36.9; O2SAT 96–100; BMI 28.2
--- NOTE | ~2023-07-14 | CT_ITS ---
EXAMINATION: CTA chest PE protocol DATE: 07/14/2023 15:32 INDICATION: chest pain, hx of lung cancer w/ mets TECHNIQUE: Computed tomography angiography (CTA) of the chest was performed with 100 mL Omnipaque-350 intravenous contrast timed to evaluate the pulmonary arteries. Coronal maximum intensity projection 3D-reconstructions were created by the technologist. The dose-length product (DLP) was 858.45 mGy-cm. Automated exposure control and iterative reconstruction technique were employed. COMPARISON: 03/22/2023; CT chest 06/28/2023. FINDINGS: Lung parenchyma and airways: Persistent right upper lobe consolidation and volume loss. Pleura: Small right pleural effusion. Thoracic inlet, axillae and chest wall: Left chest implanted port terminating at the cavoatrial junct ion. Median sternotomy wires.. Thoracic aorta: Normal. Mediastinum: Normal. Heart and pericardium: Normal. Coronary artery calcifications: Mild. Upper abdomen: Diffuse fatty infiltration of the liver. Bones: Stable sclerotic lesions in multiple vertebral bodies. Pulmonary arteries: Study quality: Adequate. No pulmonary emboli detected. IMPRESSION: No CT evidence of acute pulmonary embolus. Stable right upper lung radiation fibrosis. Small right pleural effusion, slightly decreased prior st udy. Stable osseous metastases. Hepatic steatosis. Reviewed, dictated and finalized at location K. UTING SYSTEMS MECHANIC IMPRESSION: No CT evidence of acute pulmonary embolus. Stable right upper lung radiation fibrosis. Small right pleural effusion, sligh tly decreased prior study. Stable osseous metastases. Hepatic steatosis.
--- NOTE | ~2023-07-14 | NM_ITS ---
EXAMINATION: NM bone scan whole body DATE: 07/17/2023 13:34 INDICATION: Bone metastases. TECHNIQUE: 24 mCi Tc-99m HDP was administered intravenously. Delayed whole-body scintigrams were obt ained. COMPARISON: Bone scan 12/13/2022, chest CT 07/14/2023 FINDINGS: There are multiple foci of increased activity in the skull, spine, pelvis, proximal right f emur, and right ribs. IMPRESSION: 1. Unchanged distribution of multiple foci of increased activity in the bones, at least some of which correlate with sclerotic lesions by CT, consistent with metastatic disease. Reviewed, dictated and finalized at location A. LOPE FOLD OPERATOR
--- NOTE | 2023-07-14 13:23 | PC.NURSE ---
fentanyl patch from lower left back fell off in hospital bed. discarded appropriately. provider aware
--- NOTE | 2023-07-14 13:28 | ECG_ITS ---
Measurements Intervals [place] Rate: 96 P: -89 HI: 126 QRS: 73 QRSD: 85 T: 68 QT: 360 QTc: 456 Interpretive Statements ECTOPIC ATRIAL RHYTHM VENTRICULAR PREMATURE COMPLEX LOW QRS VOLTAGE IN PRECORDIAL LEADS BORDERLINE T WAVE ABNORMALITY- ANTERIOR LEADS ABNORMAL ECG COMPARED TO ECG 05/17/2023 12:08:15 ECTOPIC ATRIAL RHYTHM NOW PRESENT T-WAVE ABNORMALITY NOW PRESENT Electronically Signed On 07-14-2023 16:15:14 RESIDENTIAL SUBCONTRACTOR by Charles Zhou D.O.
--- NOTE | 2023-07-14 13:29 | ED.GENADULT ---
HPI - General Adult General Chief complaint: Unspecified Stated complaint: pain Time Seen by Provider: 07/14/23 12:42 History of Present Illness HPI narrative: Patient is a 62-year-old male with the history of metastatic lung cancer on chemo/immunotherapy presenting with worsening pain. Patient's is at bedside and assists with the history. States that he is on chronic pain medication with fentanyl patch, oxycodone. Unfortunately over the last couple of weeks his pain has not been controlled. He has had worsening rib pain which is new for him. He typically has severe pain in his back related to metastatic disease. He has not been able to get out of bed for the last 3 days and has not been eating. He was unable to make his three-month follow-up with his oncologist this week due to this pain. He is is concerned that he is also urinating more frequently. Related Data Home Medications Medication Instructions Recorded Confirmed duloxetine 30 mg capsule,delayed 30 mg PO HS 11/07/19 07/14/23 release (Cymbalta) duloxetine 60 mg capsule,delayed 60 mg PO QAM 11/07/19 07/14/23 release pregabalin 225 mg capsule (Lyrica) 225 mg PO BID 11/07/19 07/14/23 triamcinolone acetonide 0.1 % 1 applic topical QID PRN psioriasis 11/07/19 07/14/23 topical cream (Triderm) cholecalciferol (vitamin D3) 1,250 1,250 mcg PO WEEKLY 09/09/20 07/14/23 mcg (50,000 unit) capsule tamsulosin 0.4 mg capsule 0.4 mg PO DAILY 01/10/22 07/14/23 metoprolol tartrate 25 mg tablet 12.5 mg PO BID 04/22/22 07/14/23 oxycodone 5 mg tablet 5 mg PO Q4-6H PRN pain 04/22/22 07/14/23 albuterol sulfate 90 mcg/actuation 2 inh inhalation Q4H PRN Shortness 05/15/22 07/14/23 aerosol inhaler Of Breath Or Wheezing cyanocobalamin (vitamin B-12) 2,500 mcg sublingual DAILY 07/18/22 07/14/23 2,500 mcg sublingual tablet (Vitamin B-12) fentanyl 75 mcg/hr transdermal 1 patch transdermal Q72H 07/18/22 07/14/23 patch ferrous sulfate 325 mg (65 mg 325 mg PO DAILY 07/18/22 07/14/23 iron) tablet (iron) folic acid 1 mg tablet 1 mg PO DAILY 07/26/22 07/14/23 omeprazole 40 mg capsule,delayed 40 mg PO DAILY 08/03/22 07/14/23 release ondansetron HCl 8 mg tablet 8 mg PO QID NAUSEA 08/03/22 07/14/23 tizanidine 4 mg tablet 4 mg PO TID PRN Muscle Spasm 08/03/22 07/14/23 oxycodone 60 mg tablet,crush 60 mg PO BID 09/26/22 07/14/23 resistant,extended release 12 hr (OxyContin) Allergies Allergy/AdvReac Type Severity Reaction Status Date / Time bee venom protein (honey bee) Allergy Unknown Swelling Verified 06/22/23 11:03 Review of Systems Review of Systems: All systems reviewed & are unremarkable except as noted in HPI and below PMFSH Past Medical History Medical History (Updated 07/15/23 @ 16:49 by Tona Cassidy MD) Adenocarcinoma, lung Non-small cell carcinoma diagnosed June 2018. Follows with Dr. Baez and Dr. Cavazos; underwent radiation therapy from 12/05/2018 to 12/18/2018 and again in fall 2021 due to recurrence. Now with metastatic disease to lymph nodes and bone. He is currently receiving chemotherapy and has plans to start Keytruda on August 18. Anxiety Atrial fibrillation S/p cardiac ablation by Dr. Tom Oakley at 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 Followed by Dr. Parson at [facility] last seen around December 2018. Chronic anemia Chronic obstructive pulmonary disease Chronic pain syndrome Due to chronic lower back pain after complications with lower spinal fusion 2009. History of DVT (deep vein thrombosis) Right upper extremity DVT and bilateral PE December 2018 for which he took Xarelto for several months. History of pulmonary embolism (12/2018) Hypertension Reports he is no longer on medications for such. Peripheral neuropathy Seasonal allergies Surgical History Surgical History History of appendectomy In
[2023-07-14] MEDS: HYDROmorphone HCL INJ (*CRX) 1 MG/ML SYR IV PUSH ×2 (13:31→17:52)
[2023-07-14] MEDS: SODIUM CHLORIDE 0.9% IV 1,000 ML 999 ML IV CONT ×2 (13:31→14:51)
[2023-07-14 14:55] LABS: Basophils Absolute Auto 0.1 K/mm3 (0.0-0.1); Basophils Percent Auto 0.9 % (0.2-1.2); Eosinophils Absolute Auto 0.1 K/mm3 (0-0.3); Eosinophils Percent Auto 2.3 % (0-4.4); Hematocrit 30.5 % (42.0-52.0); Hemoglobin 9.6 g/dL (14.0-18.0); Immature Granulocyte Absolute 0.01 K/mm3 (0.00-0.031); Immature Granulocyte Percent A 0.2 % (0-0.5); Lymphocytes Absolute Auto 0.95 K/mm3 (0.9-3.2); Mean Corpuscular HGB Conc 31.5 g/dl (32-36); Mean Corpuscular Hemoglobin 28.5 pg (26-34); Mean Corpuscular Volume 90.5 fl (80-100); Mean Platelet Volume 10.3 fl (7.4-10.4); Neutrophils Absolute Auto 3.5 K/mm3 (1.3-6.7); Neutrophils Percent Auto 61.6 % (45.5-73.1); Platelet Count Result 234 k/mm3 (150-375); Red Blood Count 3.37 M/mm3 (4.6-6.20); White Blood Count 5.6 K/mm3 (4.5-10.0)
[2023-07-14 15:01] LABS: Appearance Urine Clear (Clear); Bacteria Urine None Seen /hpf; Bilirubin Urine Negative (Negative); Blood Urine Negative (Negative); Color Urine Yellow (Yellow); Glucose Urine UA Negative (Negative); Ketones Urine 2+ mg/dL (Negative); Leukocyte Esterase Ur Negative LEU/UL (Negative); Nitrate Urine Negative (Negative); Non Pathogenic Casts 0-2; Protein Urine Trace mg/dL (Negative); RBC Urine 0-2 /hpf (0-2); Specific Grav Ur 1.019 (1.001-1.035); Squamous Epithelial Cell Urine Occasional /hpf (Few); WBC Urine 0-5 /hpf; pH Urine 5.5 (5.0-9.0)
[2023-07-14 15:05] LABS: Add Urine Microscopic? YES
[2023-07-14 15:06] LABS: INR 1.2; Prothrombin Time 15.3 Seconds (11.1-14.7)
[2023-07-14 15:07] LABS: Partial Thromboplastin Time 47.8 SECONDS (22.3-36.8)
[2023-07-14 15:08] LABS: Alanine Aminotransferase 10 U/L (6-50); Alkaline Phosphatase 123 U/L (38-126); Anion Gap 4 mmol/L (8-16); Aspartate Amino Transferase 23 U/L (17-59); Bilirubin,Total 0.8 mg/dL (0.2-1.3); Blood Urea Nitrogen 13 mg/dL (9-20); Calcium 8.3 mg/dL (8.4-10.2); Carbon Dioxide 31 mmol/L (22-30); Chloride 105 mmol/L (98-107); Estimated CRCL calculation 93 ml/min; Estimated Glomerular Filt Rate > 60; Glucose 96 mg/dL (65-110); Lipase 19 U/L (23-300); Magnesium 2.1 mg/dL (1.6-2.3); Potassium 3.3 mmol/L (3.4-5.0); Sodium 140 mmol/L (137-145)
[2023-07-14 15:09] LABS: Lactic Acid Reflex 0.6 mmol/L (0.7-2.0)
[2023-07-14 15:20] LABS: Troponin I < 0.012 ng/mL (0.000-0.034)
--- NOTE | 2023-07-14 17:21 | ECG_ITS ---
Measurements Intervals [place] Rate: 97 P: 267 ID: 133 QRS: 74 QRSD: 80 T: 59 QT: 358 QTc: 456 Interpretive Statements ECTOPIC ATRIAL RHYTHM VENTRICULAR PREMATURE COMPLEX NONSPECIFIC T-WAVE ABNORMALITY- ANT/HIGH LAT LEADS ABNORMAL ECG COMPARED TO ECG 07/14/2023 15:08:41 NO SIGNIFICANT CHANGES Electronically Signed On 07-14-2023 19:32:06 AD OPERATIONS COORDINATOR by Charles Zhou D.O.
--- NOTE | 2023-07-14 17:55 | PM.IMHP ---
H&P: HPI History of Present Illness Date/Time: 07/14/23 19:30 Chief Complaint: Rib and back pain. Narrative: This is a 62-year-old gentleman with metastatic adenocarcinoma of the lung to bones status post radiation and on current on chemo/immunotherapy, chronic obstructive pulmonary disease, paroxysmal atrial fibrillation, and history of DVT and PE who presented to the emergency department via EMS from home for evaluation of rib in back pain. The patient provides the following history. The patient's is at bedside and assists with the history. He is on a regimen for pain related to his bony metastatic disease including OxyContin, fentanyl patch, and oxycodone for breakthrough however over the last couple of weeks his pain has not been well controlled. It has been poorly controlled the last 3 days and in fact he has barely even gotten out of bed or had anything to eat. The pain is most severe in his back where he has known metastatic disease in the vertebral spine and he is not having new pain in his ribs. Labs done in the ED were consistent his baseline. Chest CTA ruled out pulmonary embolism. He is being admitted in this setting for pain control. Review of Systems Review of Systems: Twelve systems were reviewed. No fever or sweats. Occasional chills. No cough. No cold or flu symptoms. He does have constipation from his pain medications. Endorses wheezing which is necessarily unusual for him. Appetite is poor but he nausea and. No syncope or near syncope. He has not had any falls. Except as documented, all other systems were reviewed and are negative. [facility] Past Medical History Medical History (Updated 07/14/23 @ 18:11 by Traci Dawn PA-C) Adenocarcinoma, lung Non-small cell carcinoma diagnosed June 2018. Follows with Dr. Baez and Dr. Cavazos; underwent radiation therapy from 12/05/2018 to 12/18/2018 and again in fall 2021 due to recurrence. Now with metastatic disease to lymph nodes and bone. He is currently receiving chemotherapy and has plans to start Keytruda on August 18. Anxiety Atrial fibrillation S/p cardiac ablation by Dr. 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 Followed by Dr. Parson at [facility] last seen around December 2018. Chronic anemia Chronic obstructive pulmonary disease Chronic pain syndrome Due to chronic lower back pain after complications with lower spinal fusion 2009. History of DVT (deep vein thrombosis) Right upper extremity DVT and bilateral PE December 2018 for which he took Xarelto for several months. History of pulmonary embolism (12/2018) Hypertension Reports he is no longer on medications for such. Peripheral neuropathy Seasonal allergies Surgical History Surgical History History of appendectomy In the History of carpal tunnel release Left 2011 History of elbow surgery Left elbow ulnar neurolysis History of lumbar fusion Anterior and posterior L4-S1 fusion 2009 History of open heart surgery (~2018) Status post resection of atrial myxoma. Hx of cholecystectomy In the Family History Family History Father Acute myocardial infarction Pulmonary embolism Sibling Breast cancer Mother Family history of chronic obstructive pulmonary disease Social History Social History (Updated 07/14/23 @ 17:59 by Traci Dawn PA-C) Social History: Mr. Garay lives with his ex- Edna in [place]. They have 2 children. 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 He denies significant alcohol use, drinks socially. Smoked 2 packs per day of cigarettes x 40 years and quit [place] 2018. Denies other substance use. Long-term opioid use due to chronic back pain. Ambulates without a cane or walker at home. He designates his ex- as his surrogate decision maker
[2023-07-14 18:20] LABS: Troponin I < 0.012 ng/mL (0.000-0.034)
--- NOTE | 2023-07-14 18:55 | ADMGEN ---
This patient, Jn Garay, was admitted to [facility] Surg Room 331-02. Patient/family oriented to hospital policies and general routines including ID bracelet, bed and alarms, visiting hours, pain management, procedures, bathroom and other care routines, personal items, smoking policy, room service/diet, and visiting hours. Information on how to activate the Rapid Response Team has been discussed. Patient/Family are encouraged to report perceived risks to care and to ask questions if they do not understand what they are told or what they should do.
[2023-07-14] MEDS: MORPHINE SULFATE (*CRX) 2 MG/ML INJ IV PUSH (19:40)
[2023-07-14 21:47] LABS: Troponin I < 0.012 ng/mL (0.000-0.034)
[2023-07-14] MEDS: oxyCODONE (*CRX) 5 MG/5 ML ORAL SOLN IR PO (22:14)
[2023-07-15] MEDS: MORPHINE SULFATE (*CRX) 2 MG/ML INJ IV PUSH ×2 (00:54→05:12)
[2023-07-15] MEDS: oxyCODONE (*CRX) 5 MG/5 ML ORAL SOLN IR PO ×2 (02:12→07:08)
[2023-07-15] MEDS: LORazepam (*CRX) 0.5 MG TABLET PO (02:12)
[2023-07-15] MEDS: TIZANIDINE HCL 4 MG TABLET PO (05:13)
[2023-07-15] MEDS: fentaNYL (*CRX) 75 MCG PATCH TRANSDERM (05:45)
[2023-07-15 06:07] LABS: Basophils Percent Auto 0.6 % (0.2-1.2); Eosinophils Absolute Auto 0.2 K/mm3 (0-0.3); Eosinophils Percent Auto 4.1 % (0-4.4); Hematocrit 31.5 % (42.0-52.0); Hemoglobin 9.8 g/dL (14.0-18.0); Immature Granulocyte Absolute 0.02 K/mm3 (0.00-0.031); Immature Granulocyte Percent A 0.4 % (0-0.5); Lymphocytes Absolute Auto 0.97 K/mm3 (0.9-3.2); Lymphocytes Percent Auto 19.7 % (18.3-44.2); Mean Corpuscular HGB Conc 31.1 g/dl (32-36); Mean Corpuscular Hemoglobin 28.5 pg (26-34); Mean Corpuscular Volume 91.6 fl (80-100); Mean Platelet Volume 10.3 fl (7.4-10.4); Monocytes Absolute Auto 0.8 K/mm3 (0.1-0.6); Monocytes Percent Auto 15.2 % (2.6-8.5); Platelet Count Result 243 k/mm3 (150-375); Red Blood Count 3.44 M/mm3 (4.6-6.20); Red Cell Distribution Width 15.8 % (11.5-14.5); White Blood Count 4.9 K/mm3 (4.5-10.0)
[2023-07-15 06:26] LABS: Anion Gap 4 mmol/L (8-16); Blood Urea Nitrogen 11 mg/dL (9-20); Calcium 8.3 mg/dL (8.4-10.2); Carbon Dioxide 29 mmol/L (22-30); Chloride 108 mmol/L (98-107); Estimated CRCL calculation 105 ml/min; Estimated Glomerular Filt Rate > 60; Glucose 99 mg/dL (65-110); Magnesium 2.2 mg/dL (1.6-2.3); Potassium 3.1 mmol/L (3.4-5.0); Sodium 141 mmol/L (137-145)
[2023-07-15 06:36] VITALS: BP 132/81; PULSE 104; RESP 14; TEMP 36.4; O2SAT 96
[2023-07-15] MEDS: PREGABALIN (*CRX) 75 MG CAPSULE 225 MG PO ×2 (09:10→16:55)
[2023-07-15] MEDS: oxyCODONE HCL (*CRX) 20 MG TAB SR 12HR 60 MG PO ×2 (09:10→21:44)
[2023-07-15] MEDS: DULoxetine HCL 60 MG CAPSULE.DR PO (09:11)
[2023-07-15] MEDS: FOLIC ACID 1 MG TABLET PO (09:11)
[2023-07-15] MEDS: ONDANSETRON HCL ODT 4 MG TABLET 8 MG PO ×4 (09:11→21:44)
[2023-07-15] MEDS: TAMSULOSIN HCL 0.4 MG CAPSULE PO (09:11)
[2023-07-15] MEDS: PANTOPRAZOLE 40 MG TABLET PO ×2 (09:11→21:44)
[2023-07-15] MEDS: CYANOCOBALAMIN TAB 2,000 MCG, CYANOCOBALAMIN TAB 500 MCG 2500 MCG PO (09:11)
[2023-07-15 09:12] VITALS: PULSE 78
[2023-07-15] MEDS: FERROUS SULFATE 325 MG TABLET DR BY MOUTH (09:12)
[2023-07-15] MEDS: METOPROLOL TARTRATE 12.5 MG TABLET PO ×2 (09:12→21:45)
[2023-07-15] MEDS: POTASSIUM CHLORIDE INJ 40 MEQ in SODIUM CHLORIDE 0.9% IV 500 ML 130 MEQ IVPB (09:12)
[2023-07-15] MEDS: TRIAMCINOLONE ACET 0.1% CREAM 15 GM TUBE 1 APPLIC TOPICAL (09:15)
--- NOTE | 2023-07-15 13:55 | PM.IMPN ---
Progress Note: A&P Assessment and Plan (1) Uncontrolled pain: Code(s): R52 - Pain, unspecified Status: Acute (2) Hypokalemia: Code(s): E87.6 - Hypokalemia Status: Acute (3) Dehydration: Code(s): E86.0 - Dehydration Status: Acute (4) Lung cancer m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: Code(s): C34.90 - Malignant neoplasm of unspecified part of unspecified bronchus or lung; C79.51 - Secondary malignant neoplasm of bone Status: Acute (5) Chronic anemia: Code(s): D64.9 - Anemia, unspecified Status: Acute Plan Metastatic cancer/Severe pain -unable to control with PO pain medication -missed last treatment -Oncologist consulted -IV pain medication added -Decadron IV for bone pain -antimetic hypokalemia -Replenished -monitor and replace as needed Anemia -Chronic -Stable -trend Hgb -Transfuse Hgb <7.0 -monitor on Xarelto HX PE -Resumed Xarelto COPD -Stable -Resume Inhaler PRN BPH -Resumed Flomax -monitor for retention Code status: Full code per patient DVT prophylaxis: Xarelto Stress ulcer prophylaxis: Protonix 40 daily PT/OT notes: Unable to participate currently Disposition: Patient admitted for pain control due to severe pain from Metastatic bone cancer not relieved with PO medication at home, his oncologist has been consulted for recommendations on pain control adjustments. -Patient's previous records reviewed on admission -ER notes reviewed in detail on admission -discussed all findings and current treatment plan with patient/Family/POA -Consultations reviewed for recommendations -Patient's disposition for safe discharge discussed with nurse case management Dictation performed by [employer] direct speech recognition software, therefore change house attendant variants and typographical errors may occur. Time Spent With Patient Time with patient: 15 - 25 minutes Subjective Date/time seen: 07/15/23 13:55 Interval history: Chief Complaint: Rib and back pain. Narrative: This is a 62-year-old gentleman with metastatic adenocarcinoma of the lung to bones status post radiation and on current on chemo/immunotherapy, chronic obstructive pulmonary disease, paroxysmal atrial fibrillation, and history of DVT and PE who presented to the emergency department via EMS from home for evaluation of rib in back pain. The patient provides the following history. The patient's is at bedside and assists with the history. He is on a regimen for pain related to his bony metastatic disease including OxyContin, fentanyl patch, and oxycodone for breakthrough however over the last couple of weeks his pain has not been well controlled. It has been poorly controlled the last 3 days and in fact he has barely even gotten out of bed or had anything to eat. The pain is most severe in his back where he has known metastatic disease in the vertebral spine and he is not having new pain in his ribs. Labs done in the ED were consistent his baseline. Chest CTA ruled out pulmonary embolism. He is being admitted in this setting for pain control. 07/15: Patient seen lying in bed still moaning in severe pain worse over LT ribs was given home dose of PO oxy for pain. Patient states the pain has been severe for 3 days and he has not been able to ambulate or eat. Patient states he missed his last chem/radiation appointment and is scheduled this wed for one 07/18. Patient also reports he missed his f/U will consult his oncologist for pain medication adjustment Review of Systems Review of Systems: All systems reviewed & are unremarkable except as noted in HPI and below Exam Narrative: General:?Chronically ill-appearing male supine in bed. Moaning in pain HEENT:??PERRL, EOMI. Sclera anicteric. Edentulous. Tacky mucous membranes. Neck:??Supple. No JVD. Respiratory:?Respirations are nonlabored. Lung sounds are a bit diminished with faint expiratory wheezing. Cardiovascular:??R
[2023-07-15 14:00] VITALS: BP 114/70; PULSE 81; RESP 12; TEMP 36.9; O2SAT 94
[2023-07-15] MEDS: SODIUM CHLORIDE 0.9% IV 1,000 ML 75 ML IV CONT (16:54)
[2023-07-15] MEDS: RIVAROXABAN 20 MG TABLET PO (16:55)
[2023-07-15 20:32] VITALS: BP 121/72; PULSE 90; RESP 18; TEMP 36.3; O2SAT 95
[2023-07-15] MEDS: DULoxetine HCL 30 MG CAPSULE.DR PO (21:44)
[2023-07-15 21:45] VITALS: PULSE 90
[2023-07-16 05:32] VITALS: BP 110/61; PULSE 88; RESP 16; TEMP 36.6; O2SAT 95
[2023-07-16] MEDS: SODIUM CHLORIDE 0.9% IV 1,000 ML 75 ML IV CONT ×2 (05:33→19:34)
[2023-07-16 06:07] LABS: Basophils Percent Auto 0.2 % (0.2-1.2); Hematocrit 32.2 % (42.0-52.0); Hemoglobin 9.9 g/dL (14.0-18.0); Immature Granulocyte Absolute 0.02 K/mm3 (0.00-0.031); Immature Granulocyte Percent A 0.4 % (0-0.5); Lymphocytes Absolute Auto 0.47 K/mm3 (0.9-3.2); Lymphocytes Percent Auto 10.2 % (18.3-44.2); Mean Corpuscular HGB Conc 30.7 g/dl (32-36); Mean Corpuscular Hemoglobin 28.1 pg (26-34); Mean Corpuscular Volume 91.5 fl (80-100); Mean Platelet Volume 10.7 fl (7.4-10.4); Monocytes Absolute Auto 0.2 K/mm3 (0.1-0.6); Monocytes Percent Auto 3.7 % (2.6-8.5); Neutrophils Percent Auto 85.5 % (45.5-73.1); Platelet Count Result 273 k/mm3 (150-375); Red Blood Count 3.52 M/mm3 (4.6-6.20); Red Cell Distribution Width 15.6 % (11.5-14.5); White Blood Count 4.6 K/mm3 (4.5-10.0)
[2023-07-16 06:28] LABS: Alanine Aminotransferase 12 U/L (6-50); Alkaline Phosphatase 110 U/L (38-126); Anion Gap 4 mmol/L (8-16); Aspartate Amino Transferase 23 U/L (17-59); Bilirubin,Total 0.5 mg/dL (0.2-1.3); Blood Urea Nitrogen 14 mg/dL (9-20); Calcium 8.3 mg/dL (8.4-10.2); Carbon Dioxide 29 mmol/L (22-30); Chloride 108 mmol/L (98-107); Estimated CRCL calculation 105 ml/min; Estimated Glomerular Filt Rate > 60; Glucose 210 mg/dL (65-110); Potassium 3.9 mmol/L (3.4-5.0); Sodium 141 mmol/L (137-145)
[2023-07-16 08:00] VITALS: PULSE 88; RESP 16; O2SAT 95
[2023-07-16] MEDS: METOPROLOL TARTRATE 12.5 MG TABLET PO ×2 (08:19→21:21)
[2023-07-16] MEDS: ONDANSETRON HCL ODT 4 MG TABLET 8 MG PO ×4 (08:19→21:20)
[2023-07-16] MEDS: PREGABALIN (*CRX) 75 MG CAPSULE 225 MG PO ×2 (08:20→17:07)
[2023-07-16] MEDS: DULoxetine HCL 60 MG CAPSULE.DR PO (08:20)
[2023-07-16] MEDS: FOLIC ACID 1 MG TABLET PO (08:20)
[2023-07-16] MEDS: PANTOPRAZOLE 40 MG TABLET PO ×2 (08:20→21:20)
[2023-07-16] MEDS: FERROUS SULFATE 325 MG TABLET DR BY MOUTH (08:20)
[2023-07-16] MEDS: CYANOCOBALAMIN TAB 2,000 MCG, CYANOCOBALAMIN TAB 500 MCG 2500 MCG PO (08:20)
[2023-07-16] MEDS: TAMSULOSIN HCL 0.4 MG CAPSULE PO (08:20)
[2023-07-16] MEDS: oxyCODONE HCL (*CRX) 20 MG TAB SR 12HR 60 MG PO ×2 (08:20→21:20)
--- NOTE | 2023-07-16 09:46 | PDONCCN ---
HPI - Date of Consult Date/Time: 07/16/23 19:00 <Jefferson Baez - 07/16/23 19:02> 07/16/23 09:46 <Georgette Ferraro - 07/16/23 09:53> Requesting Physician: Edgard Askew MD <Jefferson Baez - 07/16/23 19:02> Edgard Askew MD <Georgette Ferraro - 07/16/23 09:53> Primary Care Provider: Iona TorresMD <Jefferson Baez - 07/16/23 19:02> Iona HernandezMD <JasmineGeorgette - 07/16/23 09:53> - Consult Narrative Reason for consult: NSCLC and pain control <Georgette Ferraro 07/16/23 09:53> Narrative: Jn Garay is a 62 year old male <Jefferson Baez - 07/16/23 19:02> Jn Garay is a 62 year old male with a past medical history of NSCLC diagnosed in December 2021. He is currently on treatment with Alimta and Keytruda that started in Jul 2022. He was supposed to have a cycle of chemotherapy last Sun but cancelled due to pain. He states his pain has increased over the last 2-3 weeks. We last saw Jn in office on May 25, and increased his Fentanyl dose to 100mcg. He is currently on oxycontin and oxycodone for pain control by his pain management team. He states he is having increased back, hip, and leg pain. He is having issues with daily activities. He rates his pain 8/10. <Georgette Ferraro - 07/16/23 09:53> Review of Systems - Review of Systems All systems reviewed & are unremarkable except as noted in HPI and bel <JasmineGeorgette 07/16/23 09:53> [facility] Medical History: Medical History (Last Updated 07/14/23 @ 18:11 by Traci Dawn PA-C) Adenocarcinoma, lung Non-small cell carcinoma diagnosed June 2018. Follows with Dr. Baez and Dr. Cavazos; underwent radiation therapy from 12/05/2018 to 12/18/2018 and again in fall 2021 due to recurrence. Now with metastatic disease to lymph nodes and bone. He is currently receiving chemotherapy and has plans to start Keytruda on August 18. Anxiety Atrial fibrillation S/p cardiac ablation by Dr. 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 Followed by Dr. Parson at [facility] last seen around December 2018. Chronic anemia Chronic obstructive pulmonary disease Chronic pain syndrome Due to chronic lower back pain after complications with lower spinal fusion 2009. History of DVT (deep vein thrombosis) Right upper extremity DVT and bilateral PE December 2018 for which he took Xarelto for several months. History of pulmonary embolism Onset Date: 12/2018 Hypertension Reports he is no longer on medications for such. Peripheral neuropathy Seasonal allergies <Jefferson Baez - 07/16/23 19:02> Medical History (Last Updated 07/14/23 @ 18:11 by Traci Dawn PA-C) Adenocarcinoma, lung Non-small cell carcinoma diagnosed June 2018. Follows with Dr. Baez and Dr. Cavazos; underwent radiation therapy from 12/05/2018 to 12/18/2018 and again in fall 2021 due to recurrence. Now with metastatic disease to lymph nodes and bone. He is currently receiving chemotherapy and has plans to start Keytruda on August 18. Anxiety Atrial fibrillation S/p cardiac ablation by Dr. 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 Followed by Dr. Parson at [facility] last seen around December 2018. Chronic anemia Chronic obstructive pulmonary disease Chronic pain syndrome Due to chronic lower back pain after complications with lower spinal fusion 2009. History of DVT (deep vein thrombosis) Right upper extremity DVT and bilateral PE December 2018 for which he took Xarelto for several months. History of pulmonary embolism Onset Date: 12/2018 Hypertension Reports he is no longer on medications for such. Peripheral neuropathy Seasonal allergies <Georgette Ferraro - 07/16/23 09:53> Surgical History: Surgical History (Last Reviewed 07/14/23 @ 17:58 by Ed
--- NOTE | 2023-07-16 12:47 | PM.IMPN ---
Progress Note: A&P Assessment and Plan (1) Uncontrolled pain: Code(s): R52 - Pain, unspecified Status: Acute (2) Hypokalemia: Code(s): E87.6 - Hypokalemia Status: Acute (3) Dehydration: Code(s): E86.0 - Dehydration Status: Acute (4) Lung cancer m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: Code(s): C34.90 - Malignant neoplasm of unspecified part of unspecified bronchus or lung; C79.51 - Secondary malignant neoplasm of bone Status: Acute (5) Chronic anemia: Code(s): D64.9 - Anemia, unspecified Status: Acute Plan Metastatic cancer/Severe pain -unable to control with PO pain medication -missed last treatment -Oncologist consulted -IV pain medication added -Decadron IV for bone pain -antimetic hypokalemia -Replenished -monitor and replace as needed Anemia -Chronic -Stable -trend Hgb -Transfuse Hgb <7.0 -monitor on Xarelto HX PE -Resumed Xarelto COPD -Stable -Resume Inhaler PRN BPH -Resumed Flomax -monitor for retention Code status: Full code per patient DVT prophylaxis: Xarelto Stress ulcer prophylaxis: Protonix 40 daily PT/OT notes: Unable to participate currently Disposition: Patient admitted for pain control due to severe pain from Metastatic bone cancer not relieved with PO medication at home, his oncologist has been consulted for recommendations on pain control adjustments. Request for information on Palliative care at home. -Patient's previous records reviewed on admission -ER notes reviewed in detail on admission -discussed all findings and current treatment plan with patient/Family/POA -Consultations reviewed for recommendations -Patient's disposition for safe discharge discussed with caseworker Dictation performed by [employer] direct speech recognition software, therefore registration rep variants and typographical errors may occur. Time Spent With Patient Time with patient: 25 - 35 minutes Subjective Date/time seen: 07/16/23 12:47 Interval history: Chief Complaint: Rib and back pain. Narrative: This is a 62-year-old gentleman with metastatic adenocarcinoma of the lung to bones status post radiation and on current on chemo/immunotherapy, chronic obstructive pulmonary disease, paroxysmal atrial fibrillation, and history of DVT and PE who presented to the emergency department via EMS from home for evaluation of rib in back pain. The patient provides the following history. The patient's is at bedside and assists with the history. He is on a regimen for pain related to his bony metastatic disease including OxyContin, fentanyl patch, and oxycodone for breakthrough however over the last couple of weeks his pain has not been well controlled. It has been poorly controlled the last 3 days and in fact he has barely even gotten out of bed or had anything to eat. The pain is most severe in his back where he has known metastatic disease in the vertebral spine and he is not having new pain in his ribs. Labs done in the ED were consistent his baseline. Chest CTA ruled out pulmonary embolism. He is being admitted in this setting for pain control. 07/15: Patient seen lying in bed still moaning in severe pain worse over LT ribs was given home dose of PO oxy for pain. Patient states the pain has been severe for 3 days and he has not been able to ambulate or eat. Patient states he missed his last chem/radiation appointment and is scheduled this wed for one 07/18. Patient also reports he missed his f/U will consult his oncologist for pain medication adjustment 07/16: Patient reported mild improvement to pain overnight. Morphine PRN had been increased to q3hr and I added dexamethasone IV. spoke with patient and ex- about information on palliative care at home will consult CC for assistance Patient was able to eat a minimal amount the night before, anemia stable. Review of Systems Review of Systems: All systems reviewed &
[2023-07-16 14:00] VITALS: BP 125/75; PULSE 90; RESP 18; TEMP 35.6; O2SAT 96
[2023-07-16] MEDS: CENTRAL LINE FLUSH 10 ML IV PUSH ×2 (15:13→21:24)
[2023-07-16] MEDS: MORPHINE SULFATE (*CRX) 2 MG/ML INJ IV PUSH ×2 (15:14→19:33)
[2023-07-16] MEDS: RIVAROXABAN 20 MG TABLET PO (17:07)
[2023-07-16 20:18] VITALS: BP 127/88; PULSE 83; RESP 18; TEMP 36.3; O2SAT 96
[2023-07-16] MEDS: DULoxetine HCL 30 MG CAPSULE.DR PO (21:20)
[2023-07-16 21:21] VITALS: PULSE 72
[2023-07-16] MEDS: SERTRALINE HCL 50 MG TABLET PO (21:21)
[2023-07-17] MEDS: MORPHINE SULFATE (*CRX) 2 MG/ML INJ IV PUSH ×2 (03:31→07:54)
[2023-07-17 05:19] VITALS: BP 139/94; PULSE 82; RESP 16; TEMP 36.2; O2SAT 97
[2023-07-17] MEDS: CENTRAL LINE FLUSH 10 ML IV PUSH ×2 (05:33→13:44)
[2023-07-17] MEDS: SODIUM CHLORIDE 0.9% IV 1,000 ML 75 ML IV CONT (05:40)
[2023-07-17 05:46] LABS: Basophils Percent Auto 0.1 % (0.2-1.2); Hematocrit 31.4 % (42.0-52.0); Hemoglobin 9.8 g/dL (14.0-18.0); Immature Granulocyte Absolute 0.04 K/mm3 (0.00-0.031); Immature Granulocyte Percent A 0.5 % (0-0.5); Lymphocytes Absolute Auto 0.89 K/mm3 (0.9-3.2); Lymphocytes Percent Auto 11.6 % (18.3-44.2); Mean Corpuscular HGB Conc 31.2 g/dl (32-36); Mean Corpuscular Hemoglobin 28.4 pg (26-34); Mean Platelet Volume 10.1 fl (7.4-10.4); Monocytes Absolute Auto 0.5 K/mm3 (0.1-0.6); Monocytes Percent Auto 6.8 % (2.6-8.5); Neutrophils Absolute Auto 6.2 K/mm3 (1.3-6.7); Platelet Count Result 261 k/mm3 (150-375); Red Blood Count 3.45 M/mm3 (4.6-6.20); Red Cell Distribution Width 16.3 % (11.5-14.5); White Blood Count 7.7 K/mm3 (4.5-10.0)
[2023-07-17 05:58] LABS: Alanine Aminotransferase 13 U/L (6-50); Albumin Level 3.1 g/dL (3.5-5.1); Alkaline Phosphatase 108 U/L (38-126); Anion Gap 4 mmol/L (8-16); Aspartate Amino Transferase 21 U/L (17-59); Bilirubin,Total 0.4 mg/dL (0.2-1.3); Blood Urea Nitrogen 13 mg/dL (9-20); Calcium 8.4 mg/dL (8.4-10.2); Carbon Dioxide 29 mmol/L (22-30); Chloride 108 mmol/L (98-107); Estimated CRCL calculation 91 ml/min; Estimated Glomerular Filt Rate > 60; Glucose 118 mg/dL (65-110); Potassium 3.7 mmol/L (3.4-5.0); Sodium 141 mmol/L (137-145)
[2023-07-17 09:02] VITALS: PULSE 82
[2023-07-17] MEDS: ONDANSETRON HCL ODT 4 MG TABLET 8 MG PO ×4 (09:02→20:24)
[2023-07-17] MEDS: CYANOCOBALAMIN TAB 2,000 MCG, CYANOCOBALAMIN TAB 500 MCG 2500 MCG PO (09:02)
[2023-07-17] MEDS: oxyCODONE HCL (*CRX) 20 MG TAB SR 12HR 60 MG PO ×2 (09:02→20:24)
[2023-07-17] MEDS: LORazepam (*CRX) 0.5 MG TABLET PO ×2 (09:02→16:49)
[2023-07-17] MEDS: PREGABALIN (*CRX) 75 MG CAPSULE 225 MG PO ×2 (09:02→16:49)
[2023-07-17] MEDS: METOPROLOL TARTRATE 12.5 MG TABLET PO ×2 (09:02→20:24)
[2023-07-17] MEDS: DULoxetine HCL 60 MG CAPSULE.DR PO (09:02)
[2023-07-17] MEDS: TAMSULOSIN HCL 0.4 MG CAPSULE PO (09:02)
[2023-07-17] MEDS: FERROUS SULFATE 325 MG TABLET DR BY MOUTH (09:03)
[2023-07-17] MEDS: FOLIC ACID 1 MG TABLET PO (09:03)
[2023-07-17] MEDS: PANTOPRAZOLE 40 MG TABLET PO ×2 (09:03→20:25)
[2023-07-17 14:00] VITALS: BP 138/90; PULSE 93; TEMP 35.6; O2SAT 98
--- NOTE | 2023-07-17 14:00 | PC.NURSE ---
Transferred to room 327 per wheelchair.
--- NOTE | 2023-07-17 14:21 | PM.IMPN ---
Progress Note: A&P Assessment and Plan (1) Uncontrolled pain: Code(s): R52 - Pain, unspecified Status: Acute (2) Hypokalemia: Code(s): E87.6 - Hypokalemia Status: Acute (3) Dehydration: Code(s): E86.0 - Dehydration Status: Acute (4) Lung cancer m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: Code(s): C34.90 - Malignant neoplasm of unspecified part of unspecified bronchus or lung; C79.51 - Secondary malignant neoplasm of bone Status: Acute (5) Chronic anemia: Code(s): D64.9 - Anemia, unspecified Status: Acute Plan Metastatic cancer/Severe pain -unable to control with PO pain medication -missed last treatment -Oncologist consulted -IV pain medication added -Decadron IV for bone pain -antimetic hypokalemia -Replenished -monitor and replace as needed Anemia -Chronic -Stable -trend Hgb -Transfuse Hgb <7.0 -monitor on Xarelto HX PE -Resumed Xarelto COPD -Stable -Resume Inhaler PRN BPH -Resumed Flomax -monitor for retention Code status: Full code per patient DVT prophylaxis: Xarelto Stress ulcer prophylaxis: Protonix 40 daily PT/OT notes: Unable to participate currently Disposition: Patient admitted for pain control due to severe pain from Metastatic bone cancer not relieved with PO medication at home, his oncologist has been consulted for recommendations on pain control adjustments. Request for information on Palliative care at home. -Patient's previous records reviewed on admission -ER notes reviewed in detail on admission -discussed all findings and current treatment plan with patient/Family/POA -Consultations reviewed for recommendations -Patient's disposition for safe discharge discussed with case sealer Dictation performed by [employer] direct speech recognition software, therefore cost accounting analyst variants and typographical errors may occur. Subjective Date/time seen: 07/17/23 14:21 Interval history: Chief Complaint: Rib and back pain. Narrative: This is a 62-year-old gentleman with metastatic adenocarcinoma of the lung to bones status post radiation and on current on chemo/immunotherapy, chronic obstructive pulmonary disease, paroxysmal atrial fibrillation, and history of DVT and PE who presented to the emergency department via EMS from home for evaluation of rib in back pain. The patient provides the following history. The patient's is at bedside and assists with the history. He is on a regimen for pain related to his bony metastatic disease including OxyContin, fentanyl patch, and oxycodone for breakthrough however over the last couple of weeks his pain has not been well controlled. It has been poorly controlled the last 3 days and in fact he has barely even gotten out of bed or had anything to eat. The pain is most severe in his back where he has known metastatic disease in the vertebral spine and he is not having new pain in his ribs. Labs done in the ED were consistent his baseline. Chest CTA ruled out pulmonary embolism. He is being admitted in this setting for pain control. 07/15: Patient seen lying in bed still moaning in severe pain worse over LT ribs was given home dose of PO oxy for pain. Patient states the pain has been severe for 3 days and he has not been able to ambulate or eat. Patient states he missed his last chem/radiation appointment and is scheduled this wed for one 07/18. Patient also reports he missed his f/U will consult his oncologist for pain medication adjustment 07/16: Patient reported mild improvement to pain overnight. Morphine PRN had been increased to q3hr and I added dexamethasone IV. spoke with patient and ex- about information on palliative care at home will consult CC for assistance Patient was able to eat a minimal amount the night before, anemia stable. 07/17: Patient pain improving slowly, Bone scan pending otherwise vitals stable and labs unremarkable continue with pain
[2023-07-17] MEDS: ACETAMINOPHEN 325 MG TABLET 650 MG PO (16:48)
[2023-07-17] MEDS: RIVAROXABAN 20 MG TABLET PO (16:49)
[2023-07-17 19:58] VITALS: BP 126/84; PULSE 74; RESP 18; TEMP 36.1; O2SAT 97
[2023-07-17 20:00] VITALS: O2SAT 98
[2023-07-17] MEDS: DULoxetine HCL 30 MG CAPSULE.DR PO (20:24)
[2023-07-17] MEDS: SERTRALINE HCL 50 MG TABLET PO (20:25)
[2023-07-18] MEDS: SODIUM CHLORIDE 0.9% IV 1,000 ML 75 ML IV CONT (02:30)
[2023-07-18] MEDS: MORPHINE SULFATE (*CRX) 2 MG/ML INJ IV PUSH ×2 (03:28→10:43)
[2023-07-18 04:17] VITALS: BP 156/90; PULSE 62; RESP 18; TEMP 35.8; O2SAT 97
[2023-07-18] MEDS: fentaNYL (*CRX) 75 MCG PATCH TRANSDERM (05:30)
[2023-07-18 05:48] LABS: Basophils Percent Auto 0.2 % (0.2-1.2); Hematocrit 32.7 % (42.0-52.0); Hemoglobin 10.2 g/dL (14.0-18.0); Immature Granulocyte Absolute 0.07 K/mm3 (0.00-0.031); Immature Granulocyte Percent A 1.1 % (0-0.5); Lymphocytes Absolute Auto 0.83 K/mm3 (0.9-3.2); Lymphocytes Percent Auto 13.3 % (18.3-44.2); Mean Corpuscular HGB Conc 31.2 g/dl (32-36); Mean Corpuscular Hemoglobin 28.3 pg (26-34); Mean Corpuscular Volume 90.8 fl (80-100); Mean Platelet Volume 10.2 fl (7.4-10.4); Monocytes Absolute Auto 0.4 K/mm3 (0.1-0.6); Monocytes Percent Auto 6.1 % (2.6-8.5); Neutrophils Percent Auto 79.3 % (45.5-73.1); Platelet Count Result 253 k/mm3 (150-375); Red Cell Distribution Width 16.2 % (11.5-14.5); White Blood Count 6.2 K/mm3 (4.5-10.0)
[2023-07-18] MEDS: CENTRAL LINE FLUSH 10 ML IV PUSH (05:54)
[2023-07-18 06:00] LABS: Alanine Aminotransferase 16 U/L (6-50); Albumin Level 3.2 g/dL (3.5-5.1); Alkaline Phosphatase 102 U/L (38-126); Anion Gap 4 mmol/L (8-16); Aspartate Amino Transferase 19 U/L (17-59); Bilirubin,Total 0.2 mg/dL (0.2-1.3); Blood Urea Nitrogen 15 mg/dL (9-20); Calcium 8.5 mg/dL (8.4-10.2); Carbon Dioxide 29 mmol/L (22-30); Chloride 107 mmol/L (98-107); Estimated CRCL calculation 91 ml/min; Estimated Glomerular Filt Rate > 60; Glucose 128 mg/dL (65-110); Potassium 3.9 mmol/L (3.4-5.0); Sodium 140 mmol/L (137-145)
[2023-07-18] MEDS: ONDANSETRON HCL ODT 4 MG TABLET 8 MG PO ×2 (08:46→11:44)
[2023-07-18] MEDS: DULoxetine HCL 60 MG CAPSULE.DR PO (08:46)
[2023-07-18] MEDS: CYANOCOBALAMIN TAB 2,000 MCG, CYANOCOBALAMIN TAB 500 MCG 2500 MCG PO (08:46)
[2023-07-18] MEDS: PREGABALIN (*CRX) 75 MG CAPSULE 225 MG PO (08:46)
[2023-07-18] MEDS: TAMSULOSIN HCL 0.4 MG CAPSULE PO (08:46)
[2023-07-18] MEDS: FOLIC ACID 1 MG TABLET PO (08:46)
[2023-07-18 08:47] VITALS: PULSE 62
[2023-07-18] MEDS: METOPROLOL TARTRATE 12.5 MG TABLET PO (08:47)
[2023-07-18] MEDS: PANTOPRAZOLE 40 MG TABLET PO (08:47)
[2023-07-18] MEDS: FERROUS SULFATE 325 MG TABLET DR BY MOUTH (08:47)
[2023-07-18] MEDS: oxyCODONE HCL (*CRX) 20 MG TAB SR 12HR 60 MG PO (08:47)
[2023-07-18] MEDS: LORazepam (*CRX) 0.5 MG TABLET PO (10:43)
--- NOTE | 2023-07-18 13:35 | PM.DS ---
DS: Admitting Diagnosis Discharge Date 07/18/23 Admitting Diagnosis metastatic lung cancer, uncontrolled pain DS: Discharge Diagnosis Discharge Diagnosis (1) Uncontrolled pain: Code(s): R52 - Pain, unspecified Status: Acute (2) Hypokalemia: Code(s): E87.6 - Hypokalemia Status: Acute (3) Dehydration: Code(s): E86.0 - Dehydration Status: Acute (4) Lung cancer m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: Code(s): C34.90 - Malignant neoplasm of unspecified part of unspecified bronchus or lung; C79.51 - Secondary malignant neoplasm of bone Status: Acute (5) Chronic anemia: Code(s): D64.9 - Anemia, unspecified Status: Acute DS: Summary Hospital Course Hospital Course: This is a 62-year-old male with metastatic adenocarcinoma of the lung with metastases to the bones. He is status post chemo and radiation, COPD, AFib, history of DVT and PE the presented to the ED on 07/14/2023 due to back and rib pain. Patient is on pain medication regimen for bony metastatic disease includng OxyContin, fentanyl patch and oxycodone for breakthrough pain. Patient's pain has not been well controlled. Patient's labs in the ED were baseline. CTA of the chest ruled out pulmonary embolism. Oncology consulted. Oncology recommending follow-up with them in their office. Patient did miss his most recent follow-up for pain medication adjustment as well as his last chemo and radiation appointment. Patient and his have been given information on palliative care and they have decided to go down this route. patient had bone density scan performed showing an unchanged distribution of multiple foci of increased activity in the bones. Patient has been receiving IV pain medication while in the hospital. Due to patient and agreeing with Palliative Care will discharge patient into their care. Palliative Care will follow patient at discharge per care coordination team. Continue pain management at home under the care of palliative care. Time Spent with Patient Time attestation: Total time spent providing and/or coordinating discharge services: Exam Narrative: GENERAL: Comfortable, no acute distress HENMT: moist mucous membranes EYES: EOM intact b/l NECK: no lymphadenopathy RESPIRATORY: clear to auscultation CARDIO: RRR GI: soft, nontender, bowel sounds present SKIN: no rashes EXTREMITIES: no edema, redness or tenderness DS: Data Data Completed and Pending Labs on day of discharge: Labs from last 24 hours 07/18/23 05:34 WBC 6.2 RBC 3.60 L Hgb 10.2 L Hct 32.7 L MCV 90.8 MCH 28.3 MCHC 31.2 L RDW 16.2 H Plt Count 253 MPV 10.2 Immature Gran % (Auto) 1.1 H Neut % (Auto) 79.3 H Lymph % (Auto) 13.3 L Wells % (Auto) 6.1 Eos % (Auto) 0.0 Baso % (Auto) 0.2 Lymph # (Auto) 0.83 L Wells # (Auto) 0.4 Eos # (Auto) 0.0 Baso # (Auto) 0.0 Abs Immat Gran (auto) 0.07 H Absolute Neuts (auto) 5.0 Absolute Nucleated RBC 0.0 Nucleated RBC % 0.0 Sodium 140 Potassium 3.9 Chloride 107 Carbon Dioxide 29 Anion Gap 4 L BUN 15 Creatinine 0.80 Estim Creat Clear Calc 91 Estimated GFR > 60 Glucose 128 H Calcium 8.5 Total Bilirubin 0.2 AST 19 ALT 16 Alkaline Phosphatase 102 Total Protein 6.0 L Albumin 3.2 L Discharge Plan Discharge Attending physician on discharge: Edgard Askew Consulting providers: Jefferson Baez Discharging Clinician: Marissa Macedo Patient Disposition: Home, Self-Care Activity: as tolerated Diet: regular Discharge Instructions: Follow up with palliative care at discharge. Due to being on such high regimen of pain medication currently will leave any further addition to current medication up to palliative care team. Discharge disposition: Take medications as prescribed Monitor blood pressures Avoid social areas, you wear a mask when in social settings Encouraged to continue with yearly vaccinations Return to the e
[2023-07-18 14:00] VITALS: BP 125/78; PULSE 69; RESP 12; TEMP 36.2; O2SAT 96
== END 2023-07-18 14:44 | disposition home or self-care (01) | DRG 948 ==
LOC: ANHED 13:09 → ANH3MEDSUR 18:33
PROVIDERS: Nurse Practitioner Family; Physician Assistant; Admitting Provider Family Medicine; Emergency Provider Emergency Medicine; PCP Family Medicine; Visit Provider Internal Medicine Critical Care Medicine
DX: G89.3 Neoplasm related pain (acute) (chronic) (principal); C34.90 Malignant neoplasm of unspecified part of unspecified bronchus or lung; C77.9 Secondary and unspecified malignant neoplasm of lymph node, unspecified; C79.51 Secondary malignant neoplasm of bone; D64.9 Anemia, unspecified; E87.6 Hypokalemia; E86.0 Dehydration; J44.9 Chronic obstructive pulmonary disease, unspecified; N40.0 Benign prostatic hyperplasia without lower urinary tract symptoms; I48.0 Paroxysmal atrial fibrillation; G89.4 Chronic pain syndrome; Z86.718 Personal history of other venous thrombosis and embolism; Z86.711 Personal history of pulmonary embolism; Z51.5 Encounter for palliative care; Z90.49 Acquired absence of other specified parts of digestive tract; Z98.1 Arthrodesis status; Z87.891 Personal history of nicotine dependence
CPT/HCPCS: 36415; 71275; 78306; 80048; 80053; 81001; 83605; 83690; 83735; 84484; 85025; 85610; 85730; 93005; 96361; 96374; 96375; 96376; 99285; A9270; A9503; G0378; J1100; J1170; J2270; J3480; J7030; J7040; Q9967

== ENCOUNTER 2023-09-05 08:13 | Outpatient (CLI) | payer MEDICARE, MEDICAID, SELFPAY ==
[2023-09-05 10:43] LABS: Albumin Level 3.5 g/dL (3.5-5.1); Anion Gap 3 mmol/L (8-16); Blood Urea Nitrogen 10 mg/dL (9-20); Calcium 9.1 mg/dL (8.4-10.2); Carbon Dioxide 33 mmol/L (22-30); Chloride 102 mmol/L (98-107); Estimated Glomerular Filt Rate > 60; Glucose 117 mg/dL (65-110); Phosphorus 3.9 mg/dL (2.5-4.5); Potassium 3.6 mmol/L (3.4-5.0); Sodium 138 mmol/L (137-145)
== END 2023-09-05 08:14 | disposition home or self-care (01) ==
PROVIDERS: Internal Medicine Nephrology; PCP Family Medicine; Visit Provider Internal Medicine Hematology & Oncology
DX: C34.90 Malignant neoplasm of unspecified part of unspecified bronchus or lung (principal); I48.91 Unspecified atrial fibrillation; J44.9 Chronic obstructive pulmonary disease, unspecified; N28.1 Cyst of kidney, acquired
CPT/HCPCS: 36415; 80069

== ENCOUNTER 2023-09-26 10:34 | Outpatient (CLI) | payer MEDICARE, MEDICAID, SELFPAY ==
[2023-09-26 13:18] LABS: Appearance Urine Clear (Clear); Bilirubin Urine Negative (Negative); Blood Urine Negative (Negative); Color Urine Yellow (Yellow); Glucose Urine UA Negative (Negative); Ketones Urine Negative (Negative); Leukocyte Esterase Ur Negative LEU/UL (Negative); Nitrate Urine Negative (Negative); Protein Urine Negative (Negative); Specific Grav Ur 1.011 (1.001-1.035)
[2023-09-26 13:30] LABS: Add Urine Microscopic? NO; Creatinine Urine 61.7 mg/dL; Total Protein Urine Random 10 mg/dL; Ur Ttl Prot Creatinine Ratio 0.16 mg/mg (0-0.20)
== END 2023-09-26 10:35 | disposition home or self-care (01) ==
PROVIDERS: Internal Medicine Nephrology; PCP Family Medicine; Visit Provider Internal Medicine Hematology & Oncology
DX: C34.90 Malignant neoplasm of unspecified part of unspecified bronchus or lung (principal); I48.91 Unspecified atrial fibrillation; J44.9 Chronic obstructive pulmonary disease, unspecified; N28.1 Cyst of kidney, acquired
CPT/HCPCS: 81003; 82570; 84156

== ENCOUNTER 2023-10-10 09:19 | Outpatient (CLI) | payer MEDICARE, MEDICAID, SELFPAY ==
--- NOTE | ~2023-10-10 | CT_ITS ---
Clinical Indication: Lung cancer CT Scan of the Chest, Abdomen, and Pelvis with Contrast: Technique: Contiguous sections were acquired throughout the chest, abdomen, and pelvis after intraven ous administration of 100 cc of Omnipaque 350. Dose reduction technique was used on this scan by chandra acevedo automated exposure control and iterative reconstruction technique. The dose-length product (DL P) was 985.05 mGy-cm. COMPARISON: 07/14/2023 Findings: There is no evidence of any significant mediastinal, hilar or axillary lymphadenopathy. The mediastin al soft tissues basilar structures appear normal. No pericardial effusion. There is stable consolidation probably at the posterior right upper lobe extending to the right hilum , with architectural distortion and some narrowing of the airway centrally in the region of consolida tion. This probably represents postradiation change and/or treated disease. Small right pleural effus ion is similar to prior exam. Left lung is clear. No left pleural effusion. Diffuse hepatic steatosis present. Status post cholecystectomy. The spleen, pancreas, adrenals and ki dneys are within normal limits. There are atherosclerotic calcifications of the aorta. No lymphadeno [place]. No bowel obstruction or bowel wall thickening. There is no evidence to suggest acute appendicitis. Urinary bladder is unremarkable. No pelvic mass seen. No ascites. Stable sclerotic osseous lesions at T10 and T12. There is extensive sclerotic lesion involving the le ft iliac wing, with smaller sclerotic lesions in the posterior iliac bones bilaterally. Impression: Stable postradiation change and/or treated disease in the right upper lobe extending to the right hil um with associated architectural distortion and right-sided volume loss. Small right pleural effusion, similar to prior exam. Sclerotic osseous metastatic disease, as detailed above, possibly representing treated disease. Diffuse hepatic steatosis. Reviewed, dictated and finalized at location . Impression: Stable postradiation change and/or treated disease in the right upper lobe exte nding to the right hilum with associated architectural distortion and right-shelby ed volume loss. Small right pleural effusion, similar to prior exam. Sclerotic osseous metastatic disease, as detailed above, possibly representing treated disease. Diffuse hepatic steatosis.
--- NOTE | ~2023-10-10 | US_ITS ---
US renal BI 10/10/2023 10:47 Procedure: Realtime transabdominal ultrasound of the kidneys and bladder. Indication: Acquired cyst Comparison: Ultrasound dated 11/08/2019 Findings: Renal echotexture is normal bilaterally without hydronephrosis, contour deforming mass or r enal calculus. There is a left renal cyst measuring 11 mm. The right kidney measures 10.6 cm and left kidney measures 10.5 cm. Bladder within normal limits. Impression: 1: Left renal cyst measuring 11 mm. Reviewed, dictated and finalized at location B. Impression: 1: Left renal cyst measuring 11 mm.
--- NOTE | ~2023-10-10 | NM_ITS ---
EXAMINATION: NM bone scan whole body DATE: 10/10/2023 12:53 INDICATION: Non-small cell lung cancer of the right lung TECHNIQUE: 25.1 mCi Tc-99m HDP was administered intravenously. Delayed whole-body scintigrams were o btained. COMPARISON: Bone scan dated 07/17/[address] chest, abdomen and pelvis dated 10/10/2023 FINDINGS: Again seen are multiple foci of abnormal increased bone uptake in the axial and appendicular skeleton including at the right side of the skull, in the pelvis most prominent at the left innominate bone, the proximal right femur, in the spine and a few ribs. There are a few new tiny lesions at the left p osterior aspect of the upper cervical spine and involving the left anterior second and fourth ribs. T he remaining lesions appear without significant interval change. There are corresponding sclerotic angel ne lesions on CT imaging associated with the larger foci of increased uptake. IMPRESSION: 1. Multiple foci of abnormal increased bone activity consistent with metastatic disease with a few ne w small lesions consistent with progression of disease. Reviewed, dictated and finalized at location A. IMPRESSION: 1. Multiple foci of abnormal increased bone activity consistent with metastatic disease with a few new small lesions consistent with progression of disease.
== END 2023-10-10 09:20 | disposition home or self-care (01) ==
PROVIDERS: PCP Family Medicine; Referring Provider Internal Medicine Nephrology; Visit Provider Internal Medicine Hematology & Oncology
DX: C34.11 Malignant neoplasm of upper lobe, right bronchus or lung (principal); N28.1 Cyst of kidney, acquired; J44.9 Chronic obstructive pulmonary disease, unspecified; I48.91 Unspecified atrial fibrillation; J90 Pleural effusion, not elsewhere classified; K76.0 Fatty (change of) liver, not elsewhere classified
CPT/HCPCS: 71260; 74177; 76775; 78306; 99212; A9503; G0463; Q9967

== ENCOUNTER 2024-01-14 08:34 | Outpatient (CLI) | payer MEDICARE, MEDICAID, SELFPAY ==
--- NOTE | ~2024-01-14 | CT_ITS ---
CT diagnostic chest w con Ordering provider: Jefferson Baez MD History: 63 years Male with . RT LUNG CANCER . Comparison: None. Technique: CT chest with IV contrast. Radiation reduction technique utilized. The dose-length product was 357.6 mGy-cm. Findings: VISUALIZED THORACIC INLET: Normal. Left Port-A-Cath with the tip in the superior vena cava.. MEDIASTINUM: Aorta/coronary arteries: Mild atheromatous disease. Heart/other: The heart is not enlarged. Lymph nodes: No mediastinal or hilar adenopathy. LUNGS: Pneumonia in the right upper lobe. Atelectatic changes in the right lung bases. Right basilar effusion. Multiple nodules are noted. The largest is seen in the left lower lobe measuring 6 mm... No pneumothorax. Fibrotic changes in the right lung noted may be postradiation. VISUALIZED UPPER ABDOMEN: Fat infiltration. Status post cholecystectomy. Small Right and left renal c ysts. Otherwise, the visualized upper abdomen is normal. MUSCULOSKELETAL: Soft tissues: The superficial soft tissues are normal. Bones: Sclerotic changes are seen in the vertebrae T10, T11 and T12 vertebrae. Smaller lesions are se en at L1 and L2. The changes may represent metastatic lesions versus postradiation change and less li kay osteomyelitis. Hemangiomas are remote possibilities unchanged from previous examination.. Age ap propriate degenerative changes of the spine. Postoperative changes in the sternum. IMPRESSION: Right upper lobe pneumonia. Right pleural effusion. Right lower lobe atelectatic Fat infiltration of the liver. Multiple nodules bilaterally the largest measures 6 mm. 6 months follow-up advised. Sclerotic lesions in the vertebrae. Differential as described above Reviewed, dictated and finalized at location A. IMPRESSION: Right upper lobe pneumonia. Right pleural effusion. Right lower lobe atelectatic Fat infiltration of the liver. Multiple nodules bilaterally the largest measures 6 mm. 6 months follow-up advi sed. Sclerotic lesions in the vertebrae. Differential as described above
--- NOTE | ~2024-01-14 | NM_ITS ---
EXAMINATION: NM bone scan whole body DATE: 01/14/2024 12:24 INDICATION: Right lung cancer. TECHNIQUE: 25 mCi Tc-99m HDP was administered intravenously. Delayed whole-body scintigrams were obt ained. COMPARISON: Chest CT 01/14/2024, bone scan 10/10/2023 FINDINGS: There are scattered foci of increased activity involving the spine, pelvis, proximal right femur, skull, and bilateral ribs correlating with sclerotic lesions by CT, consistent with metastatic disease. IMPRESSION: 1. Widespread osseous metastatic disease, worsened from 10/10/2023. Reviewed, dictated and finalized at location A.
== END 2024-01-14 08:35 | disposition home or self-care (01) ==
PROVIDERS: Visit Provider Internal Medicine Hematology & Oncology
DX: C34.91 Malignant neoplasm of unspecified part of right bronchus or lung (principal); C79.51 Secondary malignant neoplasm of bone; J18.9 Pneumonia, unspecified organism; J90 Pleural effusion, not elsewhere classified; K76.0 Fatty (change of) liver, not elsewhere classified; R91.8 Other nonspecific abnormal finding of lung field
CPT/HCPCS: 71260; 78306; A9503; Q9967

== ENCOUNTER 2024-03-07 06:36 | Inpatient (IN) | payer MEDICARE, MEDICAID, SELFPAY ==
[2024-03-07] VITALS (29 sets, daily range): BP systolic 94–121; BP diastolic 46–82; PULSE 68–87; RESP 8–20; TEMP 36.1–36.5; O2SAT 97–100
--- NOTE | ~2024-03-07 | CT_ITS ---
EXAMINATION:CT diagnostic chest wo con DATE: 03/07/2024 13:27 INDICATION: Cough and chills. Lung cancer. TECHNIQUE: Computed tomography (CT) of the chest was performed without intravenous contrast. Automate d exposure control and iterative reconstruction technique were employed. The dose-length product (DLP ) was 232.60 mGy-cm. COMPARISON: Chest CT 01/14/2024 FINDINGS: There are airspace opacities with volume loss, architectural distortion, and air bronchogra ms in perihilar right lung, consistent with radiation stenosis. There are patchy groundglass opacitie s in right lower lobe and left upper lobe. There are greater than 20 nodules in the lungs measuring u p to 7 mm. There is a small right pleural effusion with pleural thickening. There is a left internal jugular port with tip at superior cavoatrial junction. The heart size is normal. There are coronary a rtery calcifications. No pericardial effusion. There is diffuse hepatic steatosis. There are changes of cholecystectomy. An intrathecal catheter is noted. Epidural electrodes are noted. There are sclero tic lesions in multiple vertebra including C6, T6, T9, T10, T11, T12, L1, and L2. IMPRESSION: 1. New groundglass opacities in left upper lobe and right lower lobe, consistent with pneumonia. 2. Stable radiation pneumonitis in perihilar right lung. 3. Stable small right pleural effusion with pleural thickening. 4. Worsened pulmonary nodules and bone lesions, consistent with metastatic disease. Reviewed, dictated and finalized at [facility]. IMPRESSION: 1. New groundglass opacities in left upper lobe and right lower lobe, consisten t with pneumonia. 2. Stable radiation pneumonitis in perihilar right lung. 3. Stable small right pleural effusion with pleural thickening. 4. Worsened pulmonary nodules and bone lesions, consistent with metastatic dise ase.
--- NOTE | ~2024-03-07 | CT_ITS ---
EXAMINATION: CTA chest PE protocol DATE: 03/08/2024 21:05 INDICATION: Shortness of breath TECHNIQUE: Computed tomography angiography (CTA) of the chest was performed with 100 mL Omnipaque-350 intravenous contrast timed to evaluate the pulmonary arteries. Coronal maximum intensity projection 3D-reconstructions were created by the technologist. Automated exposure control and iterative reconst ruction technique were employed. Exam dose: 475.37 mGy-cm total exam DLP. COMPARISON: None. FINDINGS: There is moderate opacification of the pulmonary arteries. No main pulmonary or lobar or se gmental pulmonary artery embolism is identified. The peripheral pulmonary arteries are not optimally evaluated due to motion and limited contrast enhancement. Prominent posterior right upper lung consolidation with air bronchograms is again noted. Multiple small nodules are scattered throughout left upper and lower lungs suggesting numerous metast atic deposits. Status post sternotomy. Left Port-A-Cath catheter is present. Heart size is within normal range. There is thoracic aortic calcification but no thoracic aortic aneu rysm or dissection. No hilar or mediastinal mass lesion or lymphadenopathy is evident. Diffuse hepatic steatosis. Status post cholecystectomy. Normal morphology of the adrenal glands. Osteosclerotic lesions at T9 and particularly T10, T11 and T12 and to a lesser extent L1 are noted, i n addition to osteosclerotic lesion of the T6 spinous process.. Consider Osseous chronic metastatic disease. Post radiation change would be a consideration; clinical correlat ion would BE helpful Posterior thoracic spinal canal neural transmitter leads are noted. IMPRESSION: No evidence of pulmonary embolism is detected in the main pulmonary arteries, lobar or s egmental pulmonary arteries; peripheral pulmonary arteries are obscured due to motion and limited con trast opacification Reviewed, dictated and finalized at [facility]. Reviewed, dictated and finalized at [facility]. IMPRESSION: No evidence of pulmonary embolism is detected in the main pulmonar y arteries, lobar or segmental pulmonary arteries; peripheral pulmonary arterie s are obscured due to motion and limited contrast opacification
--- NOTE | ~2024-03-07 | XR_ITS ---
Clinical Indication: Shortness of breath PA and lateral views of the chest: Comparison: 05/17/2023 Findings: Left-sided Mediport is unchanged. Small right pleural effusion present. There is stable rig ht upper lobe airspace consolidation, which could reflect posttreatment change. Left lung clear. Card iomediastinal silhouette is within normal limits. Bones and soft tissues are unremarkable. Impression: Small right pleural effusion. Stable right upper lobe consolidation which could reflect posttreatment change. Correlate clinically for pneumonia. Stable left sided Mediport. Reviewed, dictated and finalized at location . Impression: Small right pleural effusion. Stable right upper lobe consolidation which could reflect posttreatment change. Correlate clinically for pneumonia. Stable left sided Mediport.
--- NOTE | ~2024-03-07 | XR_ITS ---
Portable chest x-ray Comparison: 03/07/2024 Clinical History: Pneumonia Findings: Left-sided Mediport remains in place. Probable small right pleural effusion with hazy righ t suprahilar airspace disease. Probable right-sided volume loss. Left lung clear. Cardiomediastinal silhouette is stable. Bones and soft tissues are unremarkable. Impression: Small right pleural effusion. Stable hazy right suprahilar airspace disease with right-sided volume loss. Correlate for posttreatme nt change/postsurgical change versus pneumonia. Active neoplasm not excluded. Left-sided Mediport. Left lung clear. Reviewed, dictated and finalized at location . Impression: Small right pleural effusion. Stable hazy right suprahilar airspace disease with right-sided volume loss. Cor relate for posttreatment change/postsurgical change versus pneumonia. Active ne oplasm not excluded. Left-sided Mediport. Left lung clear.
--- NOTE | 2024-03-07 06:48 | ECG_ITS ---
Test Date: 2024-03-07 06:51:43 Measurements Intervals [place] Rate: 75 P: 72 CT: 161 QRS: 64 QRSD: 83 T: 62 QT: 398 QTc: 446 Interpretive Statements SINUS RHYTHM EARLY PRECORDIAL R/S TRANSITION LOW QRS VOLTAGE IN PRECORDIAL LEADS BASELINE ARTIFACT- I, II, III, AVR, AVL, AVF, V1, V4-V6 BORDERLINE ECG No previous ECG available for comparison Electronically Signed On 03-07-2024 06:54:45 CDT by Charles Zhou D.O.
[2024-03-07 08:50] LABS: Basophils Percent Auto 0.9 % (0.2-1.2); Eosinophils Absolute Auto 0.1 K/mm3 (0-0.3); Eosinophils Percent Auto 2.6 % (0-4.4); Hematocrit 27.3 % (42.0-52.0); Hemoglobin 7.7 g/dL (14.0-18.0); Immature Granulocyte Absolute 0.01 K/mm3 (0.00-0.031); Immature Granulocyte Percent A 0.2 % (0-0.5); Lymphocytes Absolute Auto 0.87 K/mm3 (0.9-3.2); Lymphocytes Percent Auto 20.5 % (18.3-44.2); Mean Corpuscular HGB Conc 28.2 g/dl (32-36); Mean Corpuscular Hemoglobin 23.5 pg (26-34); Mean Corpuscular Volume 83.5 fl (80-100); Mean Platelet Volume 10.3 fl (7.4-10.4); Monocytes Absolute Auto 0.5 K/mm3 (0.1-0.6); Monocytes Percent Auto 12.5 % (2.6-8.5); Neutrophils Absolute Auto 2.7 K/mm3 (1.3-6.7); Neutrophils Percent Auto 63.3 % (45.5-73.1); Platelet Count Result 255 k/mm3 (150-375); Red Blood Count 3.27 M/mm3 (4.6-6.20); Red Cell Distribution Width 19.6 % (11.5-14.5); White Blood Count 4.3 K/mm3 (4.5-10.0)
[2024-03-07 08:58] LABS: Alanine Aminotransferase 12 U/L (6-50); Albumin Level 3.1 g/dL (3.5-5.1); Alkaline Phosphatase 252 U/L (38-126); Anion Gap 3 mmol/L (4-12); Aspartate Amino Transferase 26 U/L (17-59); Bilirubin,Total 0.3 mg/dL (0.2-1.3); Blood Urea Nitrogen 8 mg/dL (9-20); Calcium 8.4 mg/dL (8.4-10.2); Carbon Dioxide 35 mmol/L (22-30); Chloride 101 mmol/L (98-107); Estimated CRCL calculation 91 ml/min; Estimated Glomerular Filt Rate > 60; Glucose 107 mg/dL (65-110); Potassium 4.2 mmol/L (3.4-5.0); Sodium 139 mmol/L (137-145)
[2024-03-07 09:12] LABS: Platelet Estimate Adequate (Adequate)
[2024-03-07 09:13] LABS: Hypochromasia 2+
[2024-03-07 09:22] LABS: Anisocytosis 1+; Microcytosis 1+ (NORMAL); Schistocytes None Seen
[2024-03-07 09:24] LABS: Basophilic Stippling 1+
[2024-03-07 10:07] LABS: INR 1.6; Prothrombin Time 19.2 Seconds (11.1-14.7)
[2024-03-07 10:08] LABS: Partial Thromboplastin Time 45.3 Seconds (22.3-36.8)
[2024-03-07 10:12] LABS: NT Pro B Type Natriuretic Pept 878 pg/mL (19.9-100)
[2024-03-07] MEDS: methylPREDNISolone SOD SUCC 125 MG VIAL IV PUSH (10:20)
--- NOTE | 2024-03-07 10:23 | ED_ITS ---
HPI - SOB/Dyspnea General Chief Complaint: Shortness of Breath/Dyspnea <Mela Singh PA-C - Last Filed: 03/07/24 15:36> Stated Complaint: SOB <LORENA Infante Last Filed: 03/07/24 15:36> Time Seen by Provider: 03/07/24 09:16 <LORENA Infante Last Filed: 03/07/24 15:36> Source: patient <LORENA Infante Last Filed: 03/07/24 15:36> Mode of arrival: EMS <LORENA Infante Last Filed: 03/07/24 15:36> Limitations: no limitations <LORENA Infante Last Filed: 03/07/24 15:36> History of Present Illness HPI Narrative: This is a 63-year-old male that presents to the emergency department for shortness of breath. Ongoing over the last couple of days. Associated with chills, cough, diarrhea. Patient with history of metastatic lung cancer. Chronically wears oxygen. Also has history of COPD. Denies chest pain. <LORENA Infante Last Filed: 03/07/24 15:36> Related Data Home Medications: Home Medications Medication Instructions Recorded Confirmed pregabalin 225 mg capsule (Lyrica) 75 mg PO Q12H 11/07/19 03/07/24 triamcinolone acetonide 0.1 % 1 applic topical QID PRN psioriasis 11/07/19 03/07/24 topical cream (Triderm) cholecalciferol (vitamin D3) 1,250 1,250 mcg PO WEEKLY 09/09/20 03/07/24 mcg (50,000 unit) capsule tamsulosin 0.4 mg capsule 0.4 mg PO DAILY 01/10/22 03/07/24 metoprolol tartrate 25 mg tablet 12.5 mg PO BID 04/22/22 03/07/24 albuterol sulfate 90 mcg/actuation 2.5 inh inhalation Q6H PRN 05/15/22 03/07/24 aerosol inhaler Shortness Of Breath Or Wheezing ferrous sulfate 325 mg (65 mg 325 mg PO DAILY 07/18/22 03/07/24 iron) tablet (iron) folic acid 1 mg tablet 1 mg PO DAILY 07/26/22 03/07/24 omeprazole 40 mg capsule,delayed 40 mg PO DAILY 08/03/22 03/07/24 release ondansetron HCl 8 mg tablet 8 mg PO QID NAUSEA 08/03/22 03/07/24 tizanidine 4 mg tablet 4 mg PO TID PRN Muscle Spasm 08/03/22 03/07/24 oxycodone 40 mg tablet,crush 60 mg PO Q12H 01/02/24 03/07/24 resistant,extended release 12 hr acetaminophen 500 mg tablet 500 mg PO Q6H PRN Pain (Scale 03/07/24 03/07/24 Score 1-3) budesonide 0.5 mg/2 mL suspension 0.5 mg inhalation BID 03/07/24 03/07/24 for nebulization calcitonin (salmon) 200 200 unit intranasal (ALT) DAILY 03/07/24 03/07/24 unit/actuation nasal spray cyanocobalamin (vitamin B-12) 250 mcg PO DAILY 03/07/24 03/07/24 fentanyl 100 mcg/hr transdermal 100 mcg transdermal DIRECTED 03/07/24 03/07/24 patch fluticasone propion-salmeterol 2 puff inhalation Q12H 03/07/24 03/07/24 furosemide 40 mg tablet 40 mg PO DAILY PRN SOB, edema 03/07/24 03/07/24 hydrocodone 5 mg-acetaminophen 325 1 tablet PO Q8H PRN Pain, Moderate 03/07/24 03/07/24 mg tablet montelukast 10 mg tablet 10 mg PO HS 03/07/24 03/07/24 naloxone 4 mg/actuation nasal 4 mg intranasal PER PKG DIR 03/07/24 03/07/24 spray (Narcan) oxycodone 5 mg capsule 5 mg PO Q4-6H 03/07/24 03/07/24 <Mela Singh PA-C - Last Filed: 03/07/24 15:36> Allergies/Adverse Reactions: Allergies Allergy/AdvReac Type Severity Reaction Status Date / Time bee venom protein (honey bee) Allergy Unknown Swelling Verified 03/07/24 06:47 <Mela Singh PA-C - Last Filed: 03/07/24 15:36> Review of Systems Review of Systems: CONSTITUTIONAL: Reports chills. Denies fever ENT: Reports congestion CARDIOVASCULAR: Reports edema. Denies chest pain RESPIRATORY: Reports cough and dyspnea. GASTROINTESTINAL: Reports diarrhea. <Mela Singh PA-C - Last Filed: 03/07/24 15:36> All systems reviewed & are unremarkable except as noted in HPI and below <Mela Singh PA-C - Last Filed: 03/07/24 15:36> [facility] Past Medical History Medical History: Medical History (Updated 03/07/24 @ 16:23 by Anjali Chan, G[employer]OLINE FINISHER) Adenocarcinoma, lung Non-small cell carcinoma diagnosed June 2018. Follows with Dr. Baez and Dr. Cavazos; underwent radiation therapy from 12/05/2018 to 12/18/2018 and again in fall 2021 due to recurrence. Now with metastatic disease to lymph nodes and bone. He is currently receiving chemotherapy and has plans to start Keytruda on August 18. Anxiety Atrial fibrillation S/p cardiac ablation by Dr. 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 Followed by Dr. Parson at [facility] last seen around December 2018. Chronic anemia Chronic obstructive pulmonary disease uses 3 L prn Chronic pain syndrome Due to chronic lower back pain after complications with lower spinal fusion 2 010. History of DVT (deep vein thrombosis) Right upper extremity DVT and bilateral PE December 2018 for which he took Xarelto for several months. History of pulmonary embolism (12/2018) Hypertension Reports he is no longer on medications for such. Peripheral neuropathy Seasonal allergies <Mela Singh PA-C - Last Filed: 03/07/24 15:36> Surgical History Surgical History: Surgical History (Updated 03/07/24 @ 16:15 by Anjali Chan, G[employer]OLINE FINISHER) History of appendectomy In the History of carpal tunnel release Left 2011 History of elbow surgery Left elbow ulnar neurolysis History of lumbar fusion Anterior and posterior L4-S1 fusion 2009 History of open heart surgery (~2018) Status post resection of atrial myxoma. Hx of cholecystectomy In the S/P TURP <Mela Singh PA-C - Last Filed: 03/07/24 15:36> Family History Family History: Family History Father Acute myocardial infarction Pulmonary embolism Sibling Breast cancer Mother Family history of chronic obstructive pulmonary disease <Mela Singh PA-C - Last Filed: 03/07/24 15:36> Social History Social History: Social History Social History: Mr. Garay lives with his ex- Edna in [place]. They have 2 children. 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 He denies significant alcohol use, drinks socially. Smoked 2 packs per day of cigarettes x 40 years and quit 2017. Denies other substance use. Long-term opioid use due to chronic back pain. Ambulates without a cane or walk er at home. He designates his ex- as his surrogate decision maker and he wishes to be a full code however, he states he would not want to be on a ventilator for long-term. Smoking packs per day: 2 Smoking cigarettes per day: 40.0 Years smoked: 40 Smoking pack-years: 80.00 Smoking status: Former smoker Tobacco type: cigarettes Second hand tobacco smoke exposure: Yes Smoking end date: 05/18/18 Alcohol intake: never Substance use: never Substance use type: does not use Do You Feel Safe in your Home?: Yes Lack of Transportation: No Lack of Food: Never True Current Housing: I Have Housing Concerned About Future Housing: No Difficulty Paying Gas/Electric Bills: No Difficulty Paying for Meds: No Currently Unemployed: No Education: Decline to Answer Difficulty w/ Childcare or Family Care: No Living arrangements: with family Occupation/Education: unemployed Spiritual care concerns: No <Mela Singh PA-C - Last Filed: 03/07/24 15:36> Exam Narrative: GENERAL: Chronically-ill appearing, well-nourished, and in no acute distress. HEAD: Normocephalic, atraumatic. EYES: EOMI. ENT: Nares clear, no rhinorrhea or epistaxis. Mucous membranes moist. Oropharynx without tonsillar hypertrophy exudate or other lesions. Bilateral TMs pearly mireles non-bulging NECK: Supple. No adenopathy or masses. CHEST: No respiratory distress. Scattered wheezing. No rhonchi HEART: Regular rate and rhythm. No murmur heard. Normal peripheral pulses. EXTREMITIES: Normal range of motion. 1+ pitting edema to the bilateral lower extremities SKIN: Warm, dry, no rash. NEURO: No focal deficits. Alert and oriented x3. PSYCH: Normal mood and affect RECTAL: Hemoccult negative <Mela Singh PA-C - Last Filed: 03/07/24 15:36> Course Course Emergency Course: Patient updated on his workup and recommendation for admission <Mela Singh PA-C - Last Filed: 03/07/24 15:36> [employer]/PA Physician Supervision Patient's HPI, Exam, and MDM were reviewed and I agreed with the workup and disposition done in the emergency department by the MLP. I was available for consultation, but was not directly involved with patient's care nor did I evaluate the patient. <Roshan Jimenez MD - Last Filed: 03/07/24 19:07> Consultations Consultation #1: Spoke with hospitalist about patient and workup who accepts admission <Mela Singh PA-C - Last Filed: 03/07/24 15:36> Date: 03/07/24 <Mela Singh PA-C - Last Filed: 03/07/24 15:36> Vital Signs Vital signs: Vital Signs Temperature 36.5 C 03/07/24 06:37 Pulse Rate 84 03/07/24 06:37 Respiratory Rate 15 03/07/24 06:37 Blood Pressure 108/69 03/07/24 06:37 Pulse Oximetry 98 03/07/24 06:37 Oxygen Delivery Nasal Cannula 03/07/24 06:37 Oxygen Flow Rate 3 03/07/24 06:37 Temperature 36.3 C L 03/07/24 15:17 Pulse Rate 87 03/07/24 15:17 Respiratory Rate 16 03/07/24 15:17 Blood Pressure 116/49 L 03/07/24 15:17 Pulse Oximetry 98 03/07/24 15:17 Oxygen Delivery Nasal Cannula 03/07/24 07:30 Oxygen Flow Rate 3 03/07/24 07:30 <Mela Singh PA-C - Last Filed: 03/07/24 15:36> Vital Signs Temperature 36.5 C 03/07/24 06:37 Pulse Rate 84 03/07/24 06:37 Respiratory Rate 15 03/07/24 06:37 Blood Pressure 108/69 03/07/24 06:37 Pulse Oximetry 98 03/07/24 06:37 Oxygen Delivery Nasal Cannula 03/07/24 06:37 Oxygen Flow Rate 3 03/07/24 06:37 Temperature 36.3 C L 03/07/24 15:17 Pulse Rate 87 03/07/24 15:17 Respiratory Rate 16 03/07/24 15:17 Blood Pressure 116/49 L 03/07/24 15:17 Pulse Oximetry 98 03/07/24 15:17 Oxygen Delivery Nasal Cannula 03/07/24 07:30 Oxygen Flow Rate 3 03/07/24 07:30 <Roshan Jimenez MD - Last Filed: 03/07/24 19:07> MDM - SOB/Dyspnea MDM Narrative Medical decision making narrative: patient presents the emergency department for worsening dyspnea, chills, cough, diarrhea. Ongoing over the last couple days. He is afebrile and nontoxic appearing. Oxygen saturation stable on 3 L nasal cannula he chronically wears. He did have scattered wheezing upon arrival. Given n ebulizer treatment and steroid. CBC with white blood cell count of 4.3. Hemoglobin does appear slightly lower from baseline at 7.7. No active bleeding. He is Hemoccult negative. metabolic panel without acute findings. Influenza, RSV and COVID screens are negative. BNP is not concerningly elevated. Chest x- ray shows small right pleural effusion and stable right upper lobe consolidation which could reflect post treatment change. CT obtained for further evaluation. This does show evidence of pneumonia. Patient updated on his workup. Will be admitted for further management. Blood cultures drawn and patient started on IV antibiotics. Spoke with hospitalist about patient and workup who accepts admission <Mela Singh PA-C - Last Filed: 03/07/24 15:36> Differential Diagnosis Differential diagnosis: Likely acute exacerbation of chronic obstructive airways disease, congesti ve heart failure and community acquired pneumonia <Mela Singh PA-C - Last Filed: 03/07/24 15:36> Lab Data Attestation: I reviewed the patient's lab results. <Mela Singh PA-C - Last Filed: 03/07/24 15:36> Result diagrams: 03/07/24 08:42 03/07/24 08:42 <Mela Singh PA-C - Last Filed: 03/07/24 15:36> Labs: Lab Results 03/07/24 03/07/24 03/07/24 Range/Units 08:41 08:42 10:12 WBC 4.3 L (4.5-10.0) K/mm3 RBC 3.27 L (4.6-6.20) M/mm3 Hgb 7.7 L (14.0-18.0) g/dL Hct 27.3 L (42.0-52.0) % MCV 83.5 (80-100) fl MCH 23.5 L (26-34) pg MCHC 28.2 L (32-36) g/dl RDW 19.6 H (11.5-14.5) % Plt Count 255 (150-375) k/mm3 MPV 10.3 (7.4-10.4) fl Immature Gran % (Auto) 0.2 (0-0.5) % Neut % (Auto) 63.3 (45.5-73.1) % Lymph % (Auto) 20.5 (18.3-44.2) % Rowan % (Auto) 12.5 H (2.6-8.5) % Eos % (Auto) 2.6 (0-4.4) % Baso % (Auto) 0.9 (0.2-1.2) % Lymph # (Auto) 0.87 L (0.9-3.2) K/mm3 Rowan # (Auto) 0.5 (0.1-0.6) K/mm3 Eos # (Auto) 0.1 (0-0.3) K/mm3 Baso # (Auto) 0.0 (0.0-0.1) K/mm3 Abs Immat Gran (auto) 0.01 (0.00-0.031) K/mm3 Absolute Neuts (auto) 2.7 (1.3-6.7) K/mm3 Absolute Nucleated RBC 0.000 (0.0-0.012) K/mm3 Nucleated RBC % 0.0 (0.0-0.2) % Platelet Estimate Adequate (Adequate) Hypochromasia 2+ Basophilic Stippling 1+ Anisocytosis 1+ Microcytosis 1+ (NORMAL) Schistocytes None seen PT 19.2 H (11.1-14.7) Seconds INR 1.6 APTT 45.3 H (22.3-36.8) Seconds Sodium 139 (137-145) mmol/L Potassium 4.2 (3.4-5.0) mmol/L Chloride 101 (98-107) mmol/L Carbon Dioxide 35 H (22-30) mmol/L Anion Gap 3 L (4-12) mmol/L BUN 8 L D (9-20) mg/dL Creatinine 0.80 (0.7-1.3) mg/dL Estim Creat Clear Calc 91 ml/min Estimated GFR > 60 (59 - ) Glucose 107 (65-110) mg/dL Calcium 8.4 (8.4-10.2) mg/dL Total Bilirubin 0.3 (0.2-1.3) mg/dL AST 26 (17-59) U/L ALT 12 (6-50) U/L Alkaline Phosphatase 252 H (38-126) U/L NT-Pro-B Natriuret Pep 878 H (19.9-100) pg/mL Total Protein 6.0 L (6.3-8.2) g/dL Albumin 3.1 L (3.5-5.1) g/dL Influenza A (RT-PCR) Negative (Negative) Influenza B (RT-PCR) Negative (Negative) RSV (RT-PCR) Negative (Negative) SARS-CoV-2 RNA (RT-PCR) Negative (Negative) <Mela Singh PA-C - Last Filed: 03/07/24 15:36> Lab Results 03/07/24 03/07/24 03/07/24 Range/Units 08:41 08:42 10:12 WBC 4.3 L (4.5-10.0) K/mm3 RBC 3.27 L (4.6-6.20) M/mm3 Hgb 7.7 L (14.0-18.0) g/dL Hct 27.3 L (42.0-52.0) % MCV 83.5 (80-100) fl MCH 23.5 L (26-34) pg MCHC 28.2 L (32-36) g/dl RDW 19.6 H (11.5-14.5) % Plt Count 255 (150-375) k/mm3 MPV 10.3 (7.4-10.4) fl Immature Gran % (Auto) 0.2 (0-0.5) % Neut % (Auto) 63.3 (45.5-73.1) % Lymph % (Auto) 20.5 (18.3-44.2) % Rowan % (Auto) 12.5 H (2.6-8.5) % Eos % (Auto) 2.6 (0-4.4) % Baso % (Auto) 0.9 (0.2-1.2) % Lymph # (Auto) 0.87 L (0.9-3.2) K/mm3 Rowan # (Auto) 0.5 (0.1-0.6) K/mm3 Eos # (Auto) 0.1 (0-0.3) K/mm3 Baso # (Auto) 0.0 (0.0-0.1) K/mm3 Abs Immat Gran (auto) 0.01 (0.00-0.031) K/mm3 Absolute Neuts (auto) 2.7 (1.3-6.7) K/mm3 Absolute Nucleated RBC 0.000 (0.0-0.012) K/mm3 Nucleated RBC % 0.0 (0.0-0.2) % Platelet Estimate Adequate (Adequate) Hypochromasia 2+ Basophilic Stippling 1+ Anisocytosis 1+ Microcytosis 1+ (NORMAL) Schistocytes None seen PT 19.2 H (11.1-14.7) Seconds INR 1.6 APTT 45.3 H (22.3-36.8) Seconds Sodium 139 (137-145) mmol/L Potassium 4.2 (3.4-5.0) mmol/L Chloride 101 (98-107) mmol/L Carbon Dioxide 35 H (22-30) mmol/L Anion Gap 3 L (4-12) mmol/L BUN 8 L D (9-20) mg/dL Creatinine 0.80 (0.7-1.3) mg/dL Estim Creat Clear Calc 91 ml/min Estimated GFR > 60 (59 - ) Glucose 107 (65-110) mg/dL Calcium 8.4 (8.4-10.2) mg/dL Total Bilirubin 0.3 (0.2-1.3) mg/dL AST 26 (17-59) U/L ALT 12 (6-50) U/L Alkaline Phosphatase 252 H (38-126) U/L NT-Pro-B Natriuret Pep 878 H (19.9-100) pg/mL Total Protein 6.0 L (6.3-8.2) g/dL Albumin 3.1 L (3.5-5.1) g/dL Influenza A (RT-PCR) Negative (Negative) Influenza B (RT-PCR) Negative (Negative) RSV (RT-PCR) Negative (Negative) SARS-CoV-2 RNA (RT-PCR) Negative (Negative) <Roshan Jimenez MD - Last Filed: 03/07/24 19:07> Imaging Data Radiologist's impression: ITS Impressions Chest X-Ray 03/07/24 07:16 Impression: Small right pleural effusion. Stable right upper lobe consolidation which could reflect posttreatment change. Correlate clinically for pneumonia. Stable left sided Mediport. Chest CT 03/07/24 13:32 IMPRESSION: 1. New groundglass opacities in left upper lobe and right lower lobe, consistent with pneumonia. 2. Stable radiation pneumonitis in perihilar right lung. 3. Stable small right pleural effusion with pleural thickening. 4. Worsened pulmonary nodules and bone lesions, consistent with metastatic disease. <Mela Singh PA-C - Last Filed: 03/07/24 15:36> ECG Data EKG #1: ECG completion date: 03/07/24 <Mela Singh PA-C - Last Filed: 03/07/24 15:36> EKG Interpretation: normal rate, sinus rhythm, no ST changes and normal QT <Mela Singh PA-C - Last Filed: 03/07/24 15:36> Critical Care Time Critical Care Time Critical Care Time: No <Mela Singh PA-C - Last Filed: 03/07/24 15:36> Discharge Plan Discharge Clinical Impression: Pneumonia Qualifiers: Pneumonia type: due to unspecified organism Laterality: bilateral Lung loc ation: unspecified part of lung Qualified Code(s): J18.9 - Pneumonia, unspecified organism <Mela Singh PA-C - Last Filed: 03/07/24 15:36> Patient Disposition: Still a Patient <Mela Singh PA-C - Last Filed: 03/07/24 15:36> Condition: Stable <Mela Singh PA-C - Last Filed: 03/07/24 15:36>
[2024-03-07] MEDS: IPRATROPIUM 0.5 MG/ALBUTEROL SULFATE 2.5 MG AMPUL.NEB 3 ML INHALATION ×2 (10:24→20:07)
[2024-03-07 12:03] LABS: Influenza A QL RT-PCR Negative (Negative); Influenza B QL RT-PCR Negative (Negative); RSV RNA, RT-PCR Negative (Negative); SARS-CoV-2 RNA PCR Negative (Negative)
--- NOTE | 2024-03-07 15:10 | PM.IMHP ---
H&P: HPI History of Present Illness Date/Time: 03/07/24 15:10 Chief Complaint: Shortness of Breath PMFSH Past Medical History Medical History Adenocarcinoma, lung Non-small cell carcinoma diagnosed June 2018. Follows with Dr. Baez and Dr. Cavazos; underwent radiation therapy from 12/05/2018 to 12/18/2018 and again in fall 2021 due to recurrence. Now with metastatic disease to lymph nodes and bone. He is currently receiving chemotherapy and has plans to start Keytruda on August 18. Anxiety Atrial fibrillation S/p cardiac ablation by Dr. 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 Followed by Dr. Parson at [facility] last seen around December 2018. Chronic anemia Chronic obstructive pulmonary disease Chronic pain syndrome Due to chronic lower back pain after complications with lower spinal fusion 2009. History of DVT (deep vein thrombosis) Right upper extremity DVT and bilateral PE December 2018 for which he took Xarelto for several months. History of pulmonary embolism (12/2018) Hypertension Reports he is no longer on medications for such. Peripheral neuropathy Seasonal allergies Surgical History Surgical History History of appendectomy In the History of carpal tunnel release Left 2011 History of elbow surgery Left elbow ulnar neurolysis History of lumbar fusion Anterior and posterior L4-S1 fusion 2009 History of open heart surgery (~2017) Status post resection of atrial myxoma. Hx of cholecystectomy In the Family History Family History Father Acute myocardial infarction Pulmonary embolism Sibling Breast cancer Mother Family history of chronic obstructive pulmonary disease Social History Social History Social History: Mr. Garay lives with his ex- Edna in [place]. They have 2 children. 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 He denies significant alcohol use, drinks socially. Smoked 2 packs per day of cigarettes x 40 years and quit [place] 2018. Denies other substance use. Long-term opioid use due to chronic back pain. Ambulates without a cane or walker at home. He designates his ex- as his surrogate decision maker and he wishes to be a full code however, he states he would not want to be on a ventilator for long-term. Smoking packs per day: 2 Smoking cigarettes per day: 40.0 Years smoked: 40 Smoking pack-years: 80.00 Smoking status: Former smoker Tobacco type: cigarettes Second hand tobacco smoke exposure: No Smoking end date: 05/18/18 Alcohol intake: former Substance use: never Substance use type: does not use Do You Feel Safe in your Home?: Yes Lack of Transportation: No Lack of Food: Never True Current Housing: I Have Housing Concerned About Future Housing: No Difficulty Paying Gas/Electric Bills: No Difficulty Paying for Meds: No Currently Unemployed: No Education: High School Diploma/GED Difficulty w/ Childcare or Family Care: No Living arrangements: with family Occupation/Education: unemployed Spiritual care concerns: No Meds Home Medications and Allergies Home Medications Medication Instructions Recorded Confirmed Type pregabalin 225 mg capsule (Lyrica) 225 mg PO BID 11/07/19 02/13/24 History triamcinolone acetonide 0.1 % 1 applic topical QID PRN psioriasis 11/07/19 02/13/24 History topical cream (Triderm) cholecalciferol (vitamin D3) 1,250 1,250 mcg PO WEEKLY 09/09/20 02/13/24 History mcg (50,000 unit) capsule tamsulosin 0.4 mg capsule 0.4 mg PO DAILY 01/10/22 02/13/24 History metoprolol tartrate 25 mg tablet 12.5 mg PO BID 04/22/22 02/13/24 History lorazepam 0.5 mg tablet 0.5 mg PO Q8H PRN Anxiety #10 tabs 04/26/22 02/13/24 Rx albuterol sulfate 90 mcg/actuation 2 inh inhalation Q4H PRN Shortness 05/15/22 02/13/24 History aerosol inhaler Of Breath Or Wheezing cyanocobalamin (vitamin B-12) 2,500 mcg sublingual DAILY 07/18/22 02/13/24 History 2,500 mcg sublingual tablet (Vitamin B-12) ferrous sulfate 325 mg (65 mg 325 mg PO DAILY 07/18/22 02/13/24 History iron) tablet (iron) folic acid 1 mg tablet 1 mg PO DAILY 07/26/22 02/13/24 History omeprazole 40 mg capsule,delayed 40 mg PO DAILY 08/03/22 02/13/24 History release ondansetron HCl 8 mg tablet 8 mg PO QID NAUSEA 08/03/22 02/13/24 History tizanidine 4 mg tablet 4 mg PO TID PRN Muscle Spasm 08/03/22 02/13/24 History rivaroxaban 20 mg tablet (Xarelto) 20 mg PO DAILY@1700 #30 tabs 08/04/22 02/13/24 Rx cyanocobalamin (vitamin B-12) 2,500 mcg PO QAM #60 tabs 07/18/23 02/13/24 Rx 2,500 mcg tablet oxycodone 40 mg tablet,crush 40 mg PO Q12H 01/02/24 02/13/24 History resistant,extended release 12 hr Allergies Allergy/AdvReac Type Severity Reaction Status Date / Time bee venom protein (honey bee) Allergy Unknown Swelling Verified 03/07/24 06:47 Vital Signs Vital Signs - 24 hr 03/07/24 06:37 03/07/24 06:46 03/07/24 06:46 Temperature 97.7 F Pulse Rate 84 81 Respiratory Rate 15 Blood Pressure 108/69 Pulse Oximetry 98 100 Oxygen Delivery Nasal Cannula Nasal Cannula Oxygen Flow Rate 3 3 03/07/24 06:46 03/07/24 07:08 03/07/24 07:49 Temperature 97.7 F Pulse Rate 81 82 71 Respiratory Rate 15 14 13 Blood Pressure 108/69 108/69 110/72 Pulse Oximetry 100 100 100 Oxygen Delivery Oxygen Flow Rate 03/07/24 08:34 03/07/24 09:01 03/07/24 07:30 Temperature Pulse Rate 78 72 Respiratory Rate 16 9 L Blood Pressure 121/46 L 110/60 Pulse Oximetry 100 100 100 Oxygen Delivery Nasal Cannula Oxygen Flow Rate 3 03/07/24 10:24 03/07/24 09:15 03/07/24 09:30 Temperature Pulse Rate 78 71 73 Respiratory Rate 18 8 L 12 Blood Pressure 107/58 L 108/62 Pulse Oximetry 100 100 Oxygen Delivery Oxygen Flow Rate 03/07/24 10:00 03/07/24 10:15 03/07/24 11:21 Temperature Pulse Rate 78 74 86 Respiratory Rate 16 13 16 Blood Pressure 117/74 111/63 114/70 Pulse Oximetry 100 100 97 Oxygen Delivery Oxygen Flow Rate 03/07/24 11:30 03/07/24 12:30 03/07/24 12:45 Temperature Pulse Rate 86 87 83 Respiratory Rate 12 10 L 12 Blood Pressure 118/61 114/62 117/59 L Pulse Oximetry 99 99 100 Oxygen Delivery Oxygen Flow Rate 03/07/24 13:15 03/07/24 13:33 03/07/24 13:45 Temperature Pulse Rate 73 79 73 Respiratory Rate 10 L 17 11 L Blood Pressure 120/62 94/82 L 115/66 Pulse Oximetry 100 100 100 Oxygen Delivery Oxygen Flow Rate 03/07/24 14:01 03/07/24 14:16 03/07/24 14:30 Temperature Pulse Rate 79 70 73 Respiratory Rate 14 14 10 L Blood Pressure 115/53 L 117/52 L 119/61 Pulse Oximetry 100 100 99 Oxygen Delivery Oxygen Flow Rate 03/07/24 14:45 Temperature Pulse Rate 69 Respiratory Rate 12 Blood Pressure 118/67 Pulse Oximetry 99 Oxygen Delivery Oxygen Flow Rate H&P: Results Labs Labs: Short CBC 03/07/24 Range/Units 08:42 WBC 4.3 L (4.5-10.0) K/mm3 Hgb 7.7 L (14.0-18.0) g/dL Hct 27.3 L (42.0-52.0) % Plt Count 255 (150-375) k/mm3 [facility] 03/07/24 08:42 Sodium 139 Potassium 4.2 Chloride 101 Carbon Dioxide 35 H BUN 8 L D Creatinine 0.80 Glucose 107 Calcium 8.4 Liver Function 03/07/24 Range/Units 08:42 Total Bilirubin 0.3 (0.2-1.3) mg/dL AST 26 (17-59) U/L ALT 12 (6-50) U/L Alkaline Phosphatase 252 H (38-126) U/L Albumin 3.1 L (3.5-5.1) g/dL
--- NOTE | 2024-03-07 15:15 | ADMGEN ---
This patient, Jn Garay, was admitted to 3 [facility] Surg Room 319-01. Patient/family oriented to hospital policies and general routines including ID bracelet, bed and alarms, visiting hours, pain management, procedures, bathroom and other care routines, personal items, smoking policy, room service/diet, and visiting hours. Information on how to activate the Rapid Response Team has been discussed. Patient/Family are encouraged to report perceived risks to care and to ask questions if they do not understand what they are told or what they should do.
--- NOTE | 2024-03-07 15:19 | P.HP_ITS ---
H&P: HPI History of Present Illness Date/Time: 03/07/24 15:19 Chief Complaint: Shortness of breath Narrative: This is a 63-year-old male with past medical history significant for NSCL adenocarcinoma, status post radiation with recurrent metastatic disease to lymph nodes and bone currently receiving chemotherapy (recently on Keytruda however insurance is no longer covering), anxiety, atrial fibrillation, BPH, anemia, COPD, hypertension, chronic pain syndrome status post implanted nerve stimulator and continuous pain pump, and peripheral neuropathy who presents the emergency room with complaints of shortness of breath. The patient provides the following history. Over the last 2-3 days he has had progressive shortness of breath associated with chills and night sweats. He also reports a runny nose and a productive cough but he is unsure of what color his sputum was. He chronically uses 3 L nasal cannula as needed but over the last couple days he has had to use the oxygen continuously. He also reports a poor appetite and 1 episode of loose stools. He was recently treated for community-acquired pneumonia as an outpatient by his primary care provider for which he completed a course of Levaquin. He denies headache, dizziness, sore throat, chest pain, abdominal pain, nausea, vomiting, or watery stools. The patient reports that he recently had a nerve stimulator placed last week. The nerve stimulators currently off as it was not working correctly. Incisions to his back are covered with surgical dressing and he is wearing an abdominal binder. After the patient was admitted to the medical floor the lab contacted bedside nurse and reported positive blood cultures and 2 of 2 bottles Staph epidermis. The cultures were drawn at Dr. Stahl office on a visit on 03-04. In the emergency room labs were significant for white count 4.3, hemoglobin 7.7, hematocrit 27.3, platelets 285, PT 19.2, INR 1.6, APTT 45.3, carbon dioxide 35, BUN 8, creatinine 0.80, BNP 870, and albumin 3 point on. Quad viral screen was negative. Admission vital signs were blood pressure 116/49, heart rate 87, respirations 16, and afebrile, and 98% on room air. Checks x-ray shows small right pleural effusion with a stable right upper lobe consolidation which could reflect post treatment change versus pneumonia, and a stable left-sided MediPort. CT of the lung was obtained and showed new ground-glass opacity in the left upper lobe and right upper lobe consistent with pneumonia. There is also stable right pleural effusion with pleural thickening, and worsened pulmonary nodules and bone lesions consistent with metastatic disease. Blood cultures were obtained and are pending. EKG showed normal sinus rhythm with a rate of 75. The patient was started on Rocephin and azithromycin for community-acquired pneumonia. He also received methylprednisone 125 mg IV push and DuoNeb. The patient was admitted in this setting for further workup and evaluation of shortness of breath and treatment of presumed community-acquired pneumonia. Review of Systems Review of Systems: All systems reviewed & are unremarkable except as noted in HPI and below PMFSH Past Medical History Medical History (Updated 03/07/24 @ 16:23 by Anjali Chan APRN) Adenocarcinoma, lung Non-small cell carcinoma diagnosed June 2018. Follows with Dr. Baez and Dr. Cavazos; underwent radiation therapy from 12/05/2018 to 12/18/2018 and again in fall 2021 due to recurrence. Now with metastatic disease to lymph nodes and bone. He is currently receiving chemotherapy and has plans to start Keytruda on August 18. Anxiety Atrial fibrillation S/p cardiac ablation by Dr. 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 Followed by Dr. Parson at [facility] last seen around December 2018. Chronic anemia Chronic obstructive pulmonary disease uses 3 L prn Chronic pain syndrome Due to chronic lower back pain after complications with lower spinal fusion 2009. History of DVT (deep vein thrombosis) Right upper extremity DVT and bilateral PE December 2018 for which he took Xarelto for several months. History of pulmonary embolism (12/2018) Hypertension Reports he is no longer on medications for such. Peripheral neuropathy Seasonal allergies Surgical History Surgical History (Updated 03/07/24 @ 16:15 by Anjali Chan APRN) History of appendectomy In the History of carpal tunnel release Left 2011 History of elbow surgery Left elbow ulnar neurolysis History of lumbar fusion Anterior and posterior L4-S1 fusion 2009 History of open heart surgery (~2018) Status post resection of atrial myxoma. Hx of cholecystectomy In the S/P TURP Family History Family History Father Acute myocardial infarction Pulmonary embolism Sibling Breast cancer Mother Family history of chronic obstructive pulmonary disease Social History Social History Social History: Mr. Garay lives with his ex- Edna in [place]. They have 2 children. 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 He denies significant alcohol use, drinks socially. Smoked 2 packs per day of cigarettes x 40 years and quit 2017. Denies other substance use. Long-term opioid use due to chronic back pain. Ambulates without a cane or walker at home. He designates his ex- as his surrogate decision maker and he wishes to be a full code however, he states he would not want to be on a ventilator for long-term. Smoking packs per day: 2 Smoking cigarettes per day: 40.0 Years smoked: 40 Smoking pack-years: 80.00 Smoking status: Former smoker Tobacco type: cigarettes Second hand tobacco smoke exposure: No Smoking end date: 05/18/18 Alcohol intake: former Substance use: never Substance use type: does not use Do You Feel Safe in your Home?: Yes Lack of Transportation: No Lack of Food: Never True Current Housing: I Have Housing Concerned About Future Housing: No Difficulty Paying Gas/Electric Bills: No Difficulty Paying for Meds: No Currently Unemployed: No Education: High School Diploma/GED Difficulty w/ Childcare or Family Care: No Living arrangements: with family Occupation/Education: unemployed Spiritual care concerns: No Meds Home Medications and Allergies Home Medications Medication Instructions Recorded Confirmed Type pregabalin 225 mg capsule (Lyrica) 225 mg PO BID 11/07/19 02/13/24 History triamcinolone acetonide 0.1 % 1 applic topical QID PRN psioriasis 11/07/19 02/13/24 History topical cream (Triderm) cholecalciferol (vitamin D3) 1,250 1,250 mcg PO WEEKLY 09/09/20 02/13/24 History mcg (50,000 unit) capsule tamsulosin 0.4 mg capsule 0.4 mg PO DAILY 01/10/22 02/13/24 History metoprolol tartrate 25 mg tablet 12.5 mg PO BID 04/22/22 02/13/24 History lorazepam 0.5 mg tablet 0.5 mg PO Q8H PRN Anxiety #10 tabs 04/26/22 02/13/24 Rx albuterol sulfate 90 mcg/actuation 2 inh inhalation Q4H PRN Shortness 05/15/22 02/13/24 History aerosol inhaler Of Breath Or Wheezing cyanocobalamin (vitamin B-12) 2,500 mcg sublingual DAILY 07/18/22 02/13/24 History 2,500 mcg sublingual tablet (Vitamin B-12) ferrous sulfate 325 mg (65 mg 325 mg PO DAILY 07/18/22 02/13/24 History iron) tablet (iron) folic acid 1 mg tablet 1 mg PO DAILY 07/26/22 02/13/24 History omeprazole 40 mg capsule,delayed 40 mg PO DAILY 08/03/22 02/13/24 History release ondansetron HCl 8 mg tablet 8 mg PO QID NAUSEA 08/03/22 02/13/24 History tizanidine 4 mg tablet 4 mg PO TID PRN Muscle Spasm 08/03/22 02/13/24 History rivaroxaban 20 mg tablet (Xarelto) 20 mg PO DAILY@1700 #30 tabs 08/04/22 02/13/24 Rx cyanocobalamin (vitamin B-12) 2,500 mcg PO QAM #60 tabs 07/18/23 02/13/24 Rx 2,500 mcg tablet oxycodone 40 mg tablet,crush 40 mg PO Q12H 01/02/24 02/13/24 History resistant,extended release 12 hr Allergies Allergy/AdvReac Type Severity Reaction Status Date / Time bee venom protein (honey bee) Allergy Unknown Swelling Verified 03/07/24 06:47 Vital Signs Vital Signs - 24 hr 03/07/24 06:37 03/07/24 06:46 03/07/24 06:46 Temperature 97.7 F Pulse Rate 84 81 Respiratory Rate 15 Blood Pressure 108/69 Pulse Oximetry 98 100 Oxygen Delivery Nasal Cannula Nasal Cannula Oxygen Flow Rate 3 3 03/07/24 06:46 03/07/24 07:08 03/07/24 07:49 Temperature 97.7 F Pulse Rate 81 82 71 Respiratory Rate 15 14 13 Blood Pressure 108/69 108/69 110/72 Pulse Oximetry 100 100 100 Oxygen Delivery Oxygen Flow Rate 03/07/24 08:34 03/07/24 09:01 03/07/24 07:30 Temperature Pulse Rate 78 72 Respiratory Rate 16 9 L Blood Pressure 121/46 L 110/60 Pulse Oximetry 100 100 100 Oxygen Delivery Nasal Cannula Oxygen Flow Rate 3 03/07/24 10:24 03/07/24 09:15 03/07/24 09:30 Temperature Pulse Rate 78 71 73 Respiratory Rate 18 8 L 12 Blood Pressure 107/58 L 108/62 Pulse Oximetry 100 100 Oxygen Delivery Oxygen Flow Rate 03/07/24 10:00 03/07/24 10:15 03/07/24 11:21 Temperature Pulse Rate 78 74 86 Respiratory Rate 16 13 16 Blood Pressure 117/74 111/63 114/70 Pulse Oximetry 100 100 97 Oxygen Delivery Oxygen Flow Rate 03/07/24 11:30 03/07/24 12:30 03/07/24 12:45 Temperature Pulse Rate 86 87 83 Respiratory Rate 12 10 L 12 Blood Pressure 118/61 114/62 117/59 L Pulse Oximetry 99 99 100 Oxygen Delivery Oxygen Flow Rate 03/07/24 13:15 03/07/24 13:33 03/07/24 13:45 Temperature Pulse Rate 73 79 73 Respiratory Rate 10 L 17 11 L Blood Pressure 120/62 94/82 L 115/66 Pulse Oximetry 100 100 100 Oxygen Delivery Oxygen Flow Rate 03/07/24 14:01 03/07/24 14:16 03/07/24 14:30 Temperature Pulse Rate 79 70 73 Respiratory Rate 14 14 10 L Blood Pressure 115/53 L 117/52 L 119/61 Pulse Oximetry 100 100 99 Oxygen Delivery Oxygen Flow Rate 03/07/24 14:45 03/07/24 15:17 Temperature 97.3 F L Pulse Rate 69 87 Respiratory Rate 12 16 Blood Pressure 118/67 116/49 L Pulse Oximetry 99 98 Oxygen Delivery Oxygen Flow Rate Exam Narrative: General: appears unwell, appears stated age, thin HEENT: normocephalic, atraumatic. Mucous membranes moist. EOMI, PERRLA, bilateral sclera anicteric, no conjunctival injection. Neck supple without JVD, lymphadenopathy, or bruit. Missing chcf. Respiratory: diminished on auscultation bilaterally. No rales/rhonic/wheezes. Cardiovascular: Regular rate and rhythm, normal S1-S2 upon auscultation. No murmurs, rubs, or clicks. PMI is nondisplaced, capillary refill less than 3 second. Abdomen: Soft, round, no pulsatile masses, nondistended and nontender. No rebound, no guarding. No CVA tenderness, no hepatosplenomegaly. Bowel sounds present to all four quadrants. No high pitch or tinkling sounds, resonant to percussion. Implanted pain pump to the left lower quadrant. Extremities: No cyanosis, clubbing. Trace edema nonpitting, Pulses are palpable 2/2. Active ROM to all four extremities. Neuro: Alert and orientated x 4. PERRLA. Cranial nerves 2-12 intact without focal deficit. Skin: Warm, dry, and intact, without rash, erythema, or lesion. Surgical dressing x 2 to lower back are clean, dry, and intact. Lines: PIV, implanted Mediport Incisions: Psych: pleasant, cooperative, normal speech, flat affect, no hallucinations, no dysarthria H&P: Results Labs Labs: Short CBC 03/07/24 Range/Units 08:42 WBC 4.3 L (4.5-10.0) K/mm3 Hgb 7.7 L (14.0-18.0) g/dL Hct 27.3 L (42.0-52.0) % Plt Count 255 (150-375) k/mm3 BMP 03/07/24 08:42 Sodium 139 Potassium 4.2 Chloride 101 Carbon Dioxide 35 H BUN 8 L D Creatinine 0.80 Glucose 107 Calcium 8.4 Liver Function 03/07/24 Range/Units 08:42 Total Bilirubin 0.3 (0.2-1.3) mg/dL AST 26 (17-59) U/L ALT 12 (6-50) U/L Alkaline Phosphatase 252 H (38-126) U/L Albumin 3.1 L (3.5-5.1) g/dL Assessment and Plan Assessment and plan (1) Sepsis: Qualifiers: Sepsis type: sepsis due to unspecified organism Sepsis acute organ dysfunction status: unspecified Qualified Code(s): A41.9 - Sepsis, unspecified organism Code(s): A41.9 - Sepsis, unspecified organism Status: Resolved Assessment and Plan: Blood cultures collected at oncologist office on 03/04 are growing Staphylococcus epidermis in both bottles * Patient started on IV vancomycin * Will repeat blood cultures 24-48 hours * Lactic acid ordered * NS bolus 1 L now and maintenance fluids at 100 ml per hour. If lactic is posi tive will complete resuscitation with 30 ml/kg * UA and culture pending * Low suspicion for C diff however he just completed antibiotics and he reports diarrhea. Patient has history of C diff infection. C diff pending. * No documented fever but patient reports chills, blood pressure 116/49, white count 4.3, with known pneumonia (2) Bacteremia: Code(s): R78.81 - Bacteremia Status: Acute Assessment and Plan: Blood cultures collected at oncologist office on 03/04 are growing Staphylococcus epidermis in both bottles (3) Pneumonia: Qualifiers: Laterality: bilateral Lung location: unspecified part of lung Pneumonia type: due to unspecified organism Qualified Code(s): J18.9 - Pneumonia, unspecified organism Code(s): J18.9 - Pneumonia, unspecified organism Status: Acute Assessment and Plan: CT chest shows a new ground-glass opacity in left upper lobe and right upper lobe consistent with pneumonia. He has a stable right small pleural effusion with pleural thickening and worsened pulmonary nodules and bone lesions consistent with metastatic disease * Blood cultures were ordered in the emergency room prior to antibiotics * In the ED patient received Rocephin and azithromycin. However he recently failed treatment with Levaquin. Given his metastatic disease and recent treatment failure will broaden to cefepime and vancomycin. * Sputum culture has been ordered * Duo nebs scheduled q.6, budesonide b.i.d. * Currently no wheezing can consider adding steroids * Oxygen at 3 L nasal cannula * Pulmonary embolism has been considered however the patient is not tachycardic and he has been compliant with Xarelto. Coags reflect that he has been taking this. Should he developed tachycardia or increased oxygen needs then will pro ceed with CTA to rule out PE. * Mucinex b.i.d. * Incentive spirometry and pep therapy (4) COPD (chronic obstructive pulmonary disease): Code(s): J44.9 - Chronic obstructive pulmonary disease, unspecified Status: Chronic Assessment and Plan: Chronically uses 3 L nasal cannula as needed however over the last few days has required daily use. * DuoNeb scheduled, budesonide b.i.d. * Continue home inhaler * And steroids if wheezing occurs. (5) Adenocarcinoma, lung: Qualifiers: Laterality: right Qualified Code(s): C34.91 - Malignant neoplasm of unspecified part of right bronchus or lung Code(s): C34.90 - Malignant neoplasm of unspecified part of unspecified bronchus or lung Status: Chronic Assessment and Plan: Patient follows with Dr. Baez. He has a follow-up appointment on 03/26. 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 He was receiving Keytruda however insurance is no longer covering. He goes on 03/[address] Baez about starting chemotherapy. * Implanted MediPort * Monitor ANC, may need neutropenic precaution Quality VTE Prophylaxis VTE prophylaxis: pharmacologic ordered Hospitalist MIPS Advance Care Plan I have confirmed that the patient's Advanced Care Plan is present, code status is documented, or surrogate decision maker is listed in patient medical record.: Yes Medication Reconciliation I have utilized all available resources to obtain, update and review the patients current medications (includes all prescriptions, OTC, herbals, cannab is, and nutritional supplements).: No The patient is not eligible for med reconciliation; the patient is in a emergent medical situation where delaying treatment would jeopardize the patients health.: No
[2024-03-07] MEDS: AZITHROMYCIN 500 MG/NS 250 ML 500 MG/250 ML BAG 250 MG IVPB (15:21)
[2024-03-07] MEDS: SODIUM CHLORIDE 0.9% IV 1,000 ML 999 ML IV CONT (17:23)
[2024-03-07] MEDS: VANCOMYCIN 1,250 MG/NS 250 ML 1,250 MG/250 ML BAG 166.67 MG IVPB (17:24)
[2024-03-07 18:05] LABS: Lactic Acid Reflex 0.9 mmol/L (0.7-2.0)
[2024-03-07 18:15] LABS: Iron 36 ug/dL (49-181)
[2024-03-07 18:25] LABS: Percent Iron Saturation 17 % (20-50); TOTAL IRON BINDING CAPACITY 218 ug/dL (265-497)
[2024-03-07 18:35] LABS: MRSA (PCR) NOT DETECTED (NOT DETECTE)
[2024-03-07 18:36] LABS: Procalcitonin 0.2 ng/mL
[2024-03-07] MEDS: SODIUM CHLORIDE 0.9% IV 1,000 ML 100 ML IV CONT (18:37)
[2024-03-07] MEDS: VANCOMYCIN 1,000 MG/NS 250 ML 1,000 MG/250 ML BAG 250 MG IVPB (18:39)
[2024-03-07 19:16] LABS: Folic Acid > 20.0 ng/mL (2.76->20); Vitamin B12 > 1000.0 pg/mL (239-931)
[2024-03-07] MEDS: BUDESONIDE RESPULE NEB 0.5 MG/2 ML AMP INHALATION (20:07)
[2024-03-07] MEDS: guaiFENesin 12 HR 600 MG TABCR 1200 MG PO (20:35)
[2024-03-07] MEDS: CEFEPIME 2 GM/NS 50 ML 2 GM/50 ML BAG IVPB (20:35)
[2024-03-07] MEDS: METOPROLOL TARTRATE 12.5 MG TABLET PO (21:41)
[2024-03-07] MEDS: MONTELUKAST SODIUM 10 MG TABLET PO (21:41)
[2024-03-07] MEDS: PANTOPRAZOLE 40 MG TABLET PO (21:42)
[2024-03-07] MEDS: FUROSEMIDE 40 MG TABLET PO (21:42)
[2024-03-07] MEDS: PREGABALIN (*CRX) 75 MG CAPSULE PO (21:42)
[2024-03-07] MEDS: RIVAROXABAN 20 MG TABLET PO (21:42)
[2024-03-07] MEDS: ONDANSETRON HCL ODT 4 MG TABLET 8 MG PO (21:42)
[2024-03-07] MEDS: LORazepam (*CRX) 0.5 MG TABLET PO (21:42)
[2024-03-07] MEDS: oxyCODONE HCL (*CRX) 20 MG TAB SR 12HR 60 MG PO (21:49)
[2024-03-07] MEDS: fentaNYL (*CRX) 12 MCG PATCH TRANSDERM (23:08)
[2024-03-08] VITALS (25 sets, daily range): BP systolic 90–120; BP diastolic 40–64; PULSE 65–88; RESP 16–20; TEMP 36.3–37.1; O2SAT 94–100
[2024-03-08 00:38] LABS: Add Urine Microscopic? NO; Appearance Urine Clear (Clear); Bilirubin Urine Negative (Negative); Blood Urine Negative (Negative); Color Urine Yellow (Yellow); Glucose Urine UA Negative (Negative); Ketones Urine Trace mg/dL (Negative); Leukocyte Esterase Ur Negative LEU/UL (Negative); Nitrate Urine Negative (Negative); Protein Urine Negative (Negative); Specific Grav Ur 1.012 (1.001-1.035); Urobilinogen Urine 0.2 mg/dL (<2.0)
[2024-03-08] MEDS: IPRATROPIUM 0.5 MG/ALBUTEROL SULFATE 2.5 MG AMPUL.NEB 3 ML INHALATION ×4 (01:55→19:49)
[2024-03-08] MEDS: SODIUM CHLORIDE 0.9% IV 1,000 ML 100 ML IV CONT ×2 (04:56→18:46)
[2024-03-08] MEDS: VANCOMYCIN 1,500 MG/NS 500 ML 1,500 MG/500 ML BAG 250 MG IVPB (05:02)
[2024-03-08] MEDS: LORazepam (*CRX) 0.5 MG TABLET PO ×3 (05:30→20:32)
[2024-03-08] MEDS: oxyCODONE HCL (*CRX) 5 MG TAB IR PO (05:31)
[2024-03-08] MEDS: CEFEPIME 2 GM/NS 50 ML 2 GM/50 ML BAG IVPB ×2 (05:40→18:46)
[2024-03-08] MEDS: SODIUM CHLORIDE 0.9% IV 250 ML 999 ML IV CONT (06:00)
[2024-03-08 06:19] LABS: Basophils Percent Auto 0.4 % (0.2-1.2); Eosinophils Percent Auto 0.2 % (0-4.4); Hematocrit 24.1 % (42.0-52.0); Immature Granulocyte Absolute 0.02 K/mm3 (0.00-0.031); Immature Granulocyte Percent A 0.4 % (0-0.5); Lymphocytes Absolute Auto 0.89 K/mm3 (0.9-3.2); Lymphocytes Percent Auto 19.5 % (18.3-44.2); Mean Corpuscular HGB Conc 28.2 g/dl (32-36); Mean Corpuscular Hemoglobin 23.4 pg (26-34); Mean Corpuscular Volume 82.8 fl (80-100); Mean Platelet Volume 10.8 fl (7.4-10.4); Monocytes Absolute Auto 0.6 K/mm3 (0.1-0.6); Monocytes Percent Auto 13.8 % (2.6-8.5); Neutrophils Percent Auto 65.7 % (45.5-73.1); Platelet Count Result 225 k/mm3 (150-375); Red Blood Count 2.91 M/mm3 (4.6-6.20); Red Cell Distribution Width 19.9 % (11.5-14.5); White Blood Count 4.6 K/mm3 (4.5-10.0)
[2024-03-08 06:30] LABS: Glucose Point of Care 106 mg/dl (65-105)
[2024-03-08 06:36] LABS: Alanine Aminotransferase 10 U/L (6-50); Albumin Level 2.7 g/dL (3.5-5.1); Alkaline Phosphatase 194 U/L (38-126); Anion Gap 2 mmol/L (4-12); Aspartate Amino Transferase 20 U/L (17-59); Bilirubin,Total 0.2 mg/dL (0.2-1.3); Blood Urea Nitrogen 10 mg/dL (9-20); Carbon Dioxide 32 mmol/L (22-30); Chloride 103 mmol/L (98-107); Estimated CRCL calculation 103 ml/min; Estimated Glomerular Filt Rate > 60; Glucose 108 mg/dL (65-110); Magnesium 2.3 mg/dL (1.6-2.3); Phosphorus 2.9 mg/dL (2.5-4.5); Potassium 3.9 mmol/L (3.4-5.0); Sodium 137 mmol/L (137-145)
[2024-03-08 06:55] LABS: Hemoglobin 6.8 g/dL (14.0-18.0)
[2024-03-08 06:57] LABS: Anisocytosis 1+; Hypochromasia 2+; Microcytosis 1+ (NORMAL); Platelet Estimate Adequate (Adequate)
[2024-03-08 06:58] LABS: Schistocytes None Seen
[2024-03-08 07:22] LABS: Basophils Percent Auto 0.4 % (0.2-1.2); Eosinophils Percent Auto 0.2 % (0-4.4); Hematocrit 23.3 % (42.0-52.0); Immature Granulocyte Absolute 0.01 K/mm3 (0.00-0.031); Immature Granulocyte Percent A 0.2 % (0-0.5); Lymphocytes Absolute Auto 0.92 K/mm3 (0.9-3.2); Lymphocytes Percent Auto 17.6 % (18.3-44.2); Mean Corpuscular HGB Conc 28.8 g/dl (32-36); Mean Corpuscular Hemoglobin 23.9 pg (26-34); Mean Corpuscular Volume 83.2 fl (80-100); Mean Platelet Volume 10.1 fl (7.4-10.4); Monocytes Absolute Auto 0.8 K/mm3 (0.1-0.6); Monocytes Percent Auto 14.5 % (2.6-8.5); Neutrophils Absolute Auto 3.5 K/mm3 (1.3-6.7); Neutrophils Percent Auto 67.1 % (45.5-73.1); Platelet Count Result 242 k/mm3 (150-375); Red Cell Distribution Width 19.8 % (11.5-14.5); White Blood Count 5.2 K/mm3 (4.5-10.0)
--- NOTE | 2024-03-08 07:24 | PM.IMPN ---
Progress Note: A&P Assessment and Plan (1) Sepsis: Qualifiers: Sepsis type: sepsis due to unspecified organism Sepsis acute organ dysfunction status: unspecified Qualified Code(s): A41.9 - Sepsis, unspecified organism Code(s): A41.9 - Sepsis, unspecified organism Status: Resolved Assessment and Plan: Blood cultures collected at oncologist office on 03/04 are growing Staphylococcus epidermis in both bottles Patient started on IV vancomycin Will repeat blood cultures 24-48 hours Lactic acid ordered NS bolus 1 L now and maintenance fluids at 100 ml per hour. If lactic is positive will complete resuscitation with 30 ml/kg UA and culture pending Low suspicion for C diff however he just completed antibiotics and he reports diarrhea. Patient has history of C diff infection. C diff pending. No documented fever but patient reports chills, blood pressure 116/49, white count 4.3, with known pneumonia (2) Pneumonia: Qualifiers: Laterality: bilateral Lung location: unspecified part of lung Pneumonia type: due to unspecified organism Qualified Code(s): J18.9 - Pneumonia, unspecified organism Code(s): J18.9 - Pneumonia, unspecified organism Status: Acute Assessment and Plan: CT chest shows a new ground-glass opacity in left upper lobe and right upper lobe consistent with pneumonia. He has a stable right small pleural effusion with pleural thickening and worsened pulmonary nodules and bone lesions consistent with metastatic disease Blood cultures were ordered in the emergency room prior to antibiotics In the ED patient received Rocephin and azithromycin. However he recently failed treatment with Levaquin. Given his metastatic disease and recent treatment failure will broaden to cefepime and vancomycin. Sputum culture has been ordered [facility], budesonide b.i.d. Currently no wheezing can consider adding steroids Oxygen at 3 L nasal cannula Pulmonary embolism has been considered however the patient is not tachycardic and he has been compliant with Xarelto. Coags reflect that he has been taking this. Should he developed tachycardia or increased oxygen needs then will proceed with CTA to rule out PE. New information regarding Xarelto. The patient had been holding Xarelto for 5 days prior to his surgery last week. Will proceed with CTA Mucinex b.i.d. Incentive spirometry and pep therapy (3) COPD (chronic obstructive pulmonary disease): Code(s): J44.9 - Chronic obstructive pulmonary disease, unspecified Status: Chronic Assessment and Plan: Chronically uses 3 L nasal cannula as needed however over the last few days has required daily use. DuoNeb scheduled, budesonide b.i.d. Continue home inhaler And steroids if wheezing occurs. (4) Adenocarcinoma, lung: Qualifiers: Laterality: right Qualified Code(s): C34.91 - Malignant neoplasm of unspecified part of right bronchus or lung Code(s): C34.90 - Malignant neoplasm of unspecified part of unspecified bronchus or lung Status: Chronic Assessment and Plan: Patient follows with Dr. Baez. He has a follow-up appointment on 03/26. 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 He was receiving Keytruda however insurance is no longer covering. He goes on 03/[address] Baez about starting chemotherapy. Implanted MediPort Monitor ANC, may need neutropenic precaution (5) Anemia: Code(s): D64.9 - Anemia, unspecified Status: Acute Assessment and Plan: Hemoglobin 7.7g/dl on admission patient denies bleeding, on Xarelto Heme occult negative in the ED TIBC, Fe shows Iron deficiency. Vitamin B12, folate are normal Hgb 6.8 g/dl this morning. Repeat CBC now. If less than 7 g/dl will transfuse 2 unit pRBC Already on ferrous sulfate 325 mg PO daily, continue Subjective Date/time seen: 03/08/24 07:24 Interval history: No acute events overnight. He feels tired with general fatigue. Review of Systems Review of Systems: All systems reviewed & are unremarkable except as noted in HPI and below Exam Narrative: General: appears comfortable, in no acute distress Respiratory: breathing is unlabored with even chest rise/fall, lungs are clear without wheezing, rhonchi, and crackles Cardiovascular: Rate and rhythm regular, normal s1s2, no murmur Abdomen: Soft, round, non-tender, active bowel sounds Extremities: No cyanosis, edema, clubbing. Pulses 2/2 Neuro: A&O x 4 Skin: Warm, dry, intact Objective Data Vital Signs Vital Signs: Vital Signs - 24 hr 03/07/24 07:49 03/07/24 08:34 03/07/24 09:01 Temperature Pulse Rate 71 78 72 Respiratory Rate 13 16 9 L Blood Pressure 110/72 121/46 L 110/60 Pulse Oximetry 100 100 100 Oxygen Delivery Oxygen Flow Rate 03/07/24 07:30 03/07/24 10:24 03/07/24 09:15 Temperature Pulse Rate 78 71 Respiratory Rate 18 8 L Blood Pressure 107/58 L Pulse Oximetry 100 100 Oxygen Delivery Nasal Cannula Oxygen Flow Rate 3 03/07/24 09:30 03/07/24 10:00 03/07/24 10:15 Temperature Pulse Rate 73 78 74 Respiratory Rate 12 16 13 Blood Pressure 108/62 117/74 111/63 Pulse Oximetry 100 100 100 Oxygen Delivery Oxygen Flow Rate 03/07/24 11:21 03/07/24 11:30 03/07/24 12:30 Temperature Pulse Rate 86 86 87 Respiratory Rate 16 12 10 L Blood Pressure 114/70 118/61 114/62 Pulse Oximetry 97 99 99 Oxygen Delivery Oxygen Flow Rate 03/07/24 12:45 03/07/24 13:15 03/07/24 13:33 Temperature Pulse Rate 83 73 79 Respiratory Rate 12 10 L 17 Blood Pressure 117/59 L 120/62 94/82 L Pulse Oximetry 100 100 100 Oxygen Delivery Oxygen Flow Rate 03/07/24 13:45 03/07/24 14:01 03/07/24 14:16 Temperature Pulse Rate 73 79 70 Respiratory Rate 11 L 14 14 Blood Pressure 115/66 115/53 L 117/52 L Pulse Oximetry 100 100 100 Oxygen Delivery Oxygen Flow Rate 03/07/24 14:30 03/07/24 14:45 03/07/24 15:17 Temperature 97.3 F L Pulse Rate 73 69 87 Respiratory Rate 10 L 12 16 Blood Pressure 119/61 118/67 116/49 L Pulse Oximetry 99 99 98 Oxygen Delivery Oxygen Flow Rate 03/07/24 20:10 03/07/24 20:12 03/07/24 19:50 Temperature 97 F L Pulse Rate 68 83 Respiratory Rate 16 20 Blood Pressure 119/66 Pulse Oximetry 98 100 Oxygen Delivery Nasal Cannula Oxygen Flow Rate 03/07/24 20:00 03/08/24 01:55 03/07/24 20:22 Temperature Pulse Rate 65 71 Respiratory Rate 16 16 Blood Pressure Pulse Oximetry 98 Oxygen Delivery Nasal Cannula Oxygen Flow Rate 03/08/24 02:05 03/08/24 05:10 03/08/24 05:45 Temperature 98.3 F Pulse Rate 67 79 Respiratory Rate 16 18 Blood Pressure 94/50 L 92/42 L Pulse Oximetry 100 Oxygen Delivery Oxygen Flow Rate 03/08/24 06:30 Temperature Pulse Rate Respiratory Rate Blood Pressure 90/40 L Pulse Oximetry Oxygen Delivery Oxygen Flow Rate Intake/Output Intake/Output: Intake & Output 03/05/24 03/06/24 03/07/24 03/08/24 23:59 23:59 23:59 23:59 Intake Total 1550 1622 Balance 1550 1622 Meds/Results Medications: Active Medications Generic Name Dose Route Start Last Admin Trade Name Freq PRN Reason Stop Dose Admin Acetaminophen 500 mg 03/07/24 20:45 Acetaminophen 500 Mg Tablet PO Q6H PRN Pain (Scale Score 1-3) Hydrocodone Bitart/Acetaminophen 1 tab 03/07/24 20:45 Hydrocodone/Acetaminophen (*Crx) 5-325 Mg Tablet PO Q8H PRN Pain, Moderate Albuterol 2 puff 03/07/24 20:45 Albuterol Sulfate (*Sp) Aerosol 1 Puff INHALATION Q6H PRN Shortness Of Breath Or Wheezin Albuterol/Ipratropium 3 ml 03/07/24 20:00 03/08/24 01:55 Ipratropium 0.5 Mg/Albuterol Sulfate 2.5 Mg Ampul.Neb 3 Ml INHALATION 3 ml Q6HRT JESSICA Administration Budesonide 0.5 mg 03/07/24 20:00 03/07/24 20:07 Budesonide Respule Neb 0.5 Mg/2 Ml Amp INHALATION 0.5 mg Q12HRT JESSICA Administration Calcitonin [place] 1 spray 03/08/24 09:00 Calcitonin Nasal 200 Units/[place] 3.7 Ml Bottle NASAL DAILY [facility] Cyanocobalamin 250 mcg 03/08/24 09:00 Cyanocobalamin 250 Mcg Tablet PO DAILY [facility] Ergocalciferol 50,000 units 03/17/24 09:00 Ergocalciferol 50,000 Units Capsule PO Mo@0900 JESSICA Fentanyl 12 mcg 03/07/24 22:45 03/07/24 23:08 Fentanyl (*Crx) 12 Mcg Patch TRANSDERM 12 mcg Q72HR JESSICA Administration Ferrous Sulfate 325 mg 03/08/24 09:00 Ferrous Sulfate [address] PO DAILY JESSICA Folic Acid 1 mg 03/08/24 09:00 Folic Acid 1 Mg Tablet PO DAILY JESSICA Furosemide 40 mg 03/07/24 20:45 03/07/24 21:42 Furosemide 40 Mg Tablet PO 40 mg DAILY PRN Administration SOB, edema Guaifenesin 1,200 mg 03/07/24 21:00 03/07/24 20:35 Guaifenesin 12 Hr 600 Mg Tabcr PO 1,200 mg Q12HR JESSICA Administration Cefepime HCl 2 gm in 50 mls @ 100 mls/hr 03/07/24 18:00 03/08/24 06:25 Maxipime 2 Gm/Ns 50 Ml IVPB Infused Q12H JESSICA Infusion Vancomycin HCl 1,500 mg in 500 mls @ 250 mls/hr 03/08/24 05:00 03/08/24 05:02 Vancomycin 1,500 Mg/Ns 500 Ml IVPB 250 mls/hr Q12H JESSICA Administration Sodium Chloride 1,000 mls @ 100 mls/hr 03/07/24 16:40 03/08/24 04:56 Normal Saline Iv IV CONT 100 mls/hr .Q10H JESSICA Administration Lorazepam 0.5 mg 03/07/24 20:45 03/08/24 05:30 Lorazepam (*Crx) 0.5 Mg Tablet PO 0.5 mg Q8H PRN Administration Anxiety Metoprolol Tartrate 12.5 mg 03/07/24 21:00 03/07/24 21:41 Metoprolol Tartrate 12.5 Mg Tablet PO 12.5 mg Q12HR JESSICA Administration Montelukast Sodium 10 mg 03/07/24 21:00 03/07/24 21:41 Montelukast Sodium 10 Mg Tablet PO 10 mg HS JESSICA Administration Naloxone HCl 0.1 mg 03/07/24 16:03 Naloxone Hcl 0.4 Mg/Ml Vial IV PUSH Q5MIN PRN Opioid Reversal Ondansetron HCl 8 mg 03/07/24 21:00 03/07/24 21:42 Ondansetron Hcl Odt 4 Mg Tablet PO 8 mg QID JESSICA Administration Oxycodone HCl 5 mg 03/07/24 20:45 03/08/24 05:31 Oxycodone Hcl (*Crx) 5 Mg Tab Ir PO 5 mg Q6H PRN Administration BREAKTHROUGH PAIN Oxycodone HCl 40 mg 03/08/24 09:00 Oxycodone Hcl (*Crx) 20 Mg Tab Sr 12hr PO Q12H [facility] Pantoprazole Sodium 40 mg 03/07/24 21:00 03/07/24 21:42 Pantoprazole 40 Mg Tablet PO 40 mg BID JESSICA Administration Pregabalin 75 mg 03/07/24 21:00 03/07/24 21:42 Pregabalin (*Crx) 75 Mg Capsule PO 75 mg Q12HR JESSICA Administration Rivaroxaban 20 mg 03/07/24 21:00 03/07/24 21:42 Rivaroxaban 20 Mg Tablet PO 20 mg DAILY@1700 [facility] Administration Fluticasone/Salmeterol 2 puff 03/08/24 08:00 Fluticasone/Salmeterol 230-21 Mcg Inhaler 1 Puff INHALATION Q12HRT [facility] Tamsulosin HCl 0.4 mg 03/08/24 09:00 Tamsulosin Hcl 0.4 Mg Capsule PO DAILY [facility] Tizanidine HCl 4 mg 03/07/24 20:45 Tizanidine Hcl 4 Mg Tablet PO TID PRN Muscle Spasm Triamcinolone Acetonide 1 applic 03/07/24 20:45 Triamcinolone Acet 0.1% Cream 15 Gm Tube TOPICAL QID PRN psioriasis Radiology Results: ITS Impressions Chest X-Ray 03/07/24 07:16 Impression: Small right pleural effusion. Stable right upper lobe consolidation which could reflect posttreatment change. Correlate clinically for pneumonia. Stable left sided Mediport. Chest CT 03/07/24 13:32 IMPRESSION: 1. New groundglass opacities in left upper lobe and right lower lobe, consistent with pneumonia. 2. Stable radiation pneumonitis in perihilar right lung. 3. Stable small right pleural effusion with pleural thickening. 4. Worsened pulmonary nodules and bone lesions, consistent with metastatic disease. Labs Labs: Laboratory Results - last 24 hr 03/07/24 03/07/24 03/07/24 08:41 08:42 10:12 WBC 4.3 L RBC 3.27 L Hgb 7.7 L Hct 27.3 L MCV 83.5 MCH 23.5 L MCHC 28.2 L RDW 19.6 H Plt Count 255 MPV 10.3 Immature Gran % (Auto) 0.2 Neut % (Auto) 63.3 Lymph % (Auto) 20.5 [place] % (Auto) 12.5 H Eos % (Auto) 2.6 Baso % (Auto) 0.9 Lymph # (Auto) 0.87 L [place] # (Auto) 0.5 Eos # (Auto) 0.1 Baso # (Auto) 0.0 Abs Immat Gran (auto) 0.01 Absolute Neuts (auto) 2.7 Absolute Nucleated RBC 0.000 Nucleated RBC % 0.0 Platelet Estimate Adequate Hypochromasia 2+ Basophilic Stippling 1+ Anisocytosis 1+ Microcytosis 1+ Schistocytes None seen PT 19.2 H INR 1.6 APTT 45.3 H Sodium 139 Potassium 4.2 Chloride 101 Carbon Dioxide 35 H Anion Gap 3 L BUN 8 L D Creatinine 0.80 Estim Creat Clear Calc 91 Estimated GFR > 60 Glucose 107 POC Capillary Glucose Lactic Acid Calcium 8.4 Phosphorus Magnesium Iron TIBC % Saturation Total Bilirubin 0.3 AST 26 ALT 12 Alkaline Phosphatase 252 H NT-Pro-B Natriuret Pep 878 H Total Protein 6.0 L Albumin 3.1 L Vitamin B12 Folate Procalcitonin Urine Color Urine Appearance Urine pH Ur Specific [place] Urine Protein Urine Glucose (UA) Urine Ketones Ur Blood (Man) Urine Nitrate Urine Bilirubin Urine Urobilinogen Leukocyte Esterase Rfl Nasal MRSA (PCR) Influenza A (RT-PCR) Negative Influenza B (RT-PCR) Negative RSV (RT-PCR) Negative SARS-CoV-2 RNA (RT-PCR) Negative 03/07/24 03/07/24 03/08/24 17:13 17:45 00:31 WBC RBC Hgb Hct MCV MCH MCHC RDW Plt Count MPV Immature Gran % (Auto) Neut % (Auto) Lymph % (Auto) [place] % (Auto) Eos % (Auto) Baso % (Auto) Lymph # (Auto) [place] # (Auto) Eos # (Auto) Baso # (Auto) Abs Immat Gran (auto) Absolute Neuts (auto) Absolute Nucleated RBC Nucleated RBC % Platelet Estimate Hypochromasia Basophilic Stippling Anisocytosis Microcytosis Schistocytes PT INR APTT Sodium Potassium Chloride Carbon Dioxide Anion Gap BUN Creatinine Estim Creat Clear Calc Estimated GFR Glucose POC Capillary Glucose Lactic Acid 0.9 Calcium Phosphorus Magnesium Iron 36 L TIBC 218 L % Saturation 17 L Total Bilirubin AST ALT Alkaline Phosphatase NT-Pro-B Natriuret Pep Total Protein Albumin Vitamin B12 > 1000.0 H Folate > 20.0 H Procalcitonin 0.2 Urine Color Yellow Urine Appearance Clear Urine pH 6.0 Ur Specific [place] 1.012 Urine Protein Negative Urine Glucose (UA) Negative Urine Ketones Trace H Ur Blood (Man) Negative Urine Nitrate Negative Urine Bilirubin Negative Urine Urobilinogen 0.2 Leukocyte Esterase Rfl Negative Nasal MRSA (PCR) Not detected Influenza A (RT-PCR) Influenza B (RT-PCR) RSV (RT-PCR) SARS-CoV-2 RNA (RT-PCR) 03/08/24 03/08/24 05:59 06:26 WBC 4.6 RBC 2.91 L Hgb 6.8 L* Hct 24.1 L MCV 82.8 MCH 23.4 L MCHC 28.2 L RDW 19.9 H Plt Count 225 MPV 10.8 H Immature Gran % (Auto) 0.4 Neut % (Auto) 65.7 Lymph % (Auto) 19.5 [place] % (Auto) 13.8 H Eos % (Auto) 0.2 Baso % (Auto) 0.4 Lymph # (Auto) 0.89 L [place] # (Auto) 0.6 Eos # (Auto) 0.0 Baso # (Auto) 0.0 Abs Immat Gran (auto) 0.02 Absolute Neuts (auto) 3.0 Absolute Nucleated RBC 0.000 Nucleated RBC % 0.0 Platelet Estimate Adequate Hypochromasia 2+ Basophilic Stippling Anisocytosis 1+ Microcytosis 1+ Schistocytes None seen PT INR APTT Sodium 137 Potassium 3.9 Chloride 103 Carbon Dioxide 32 H Anion Gap 2 L BUN 10 Creatinine 0.70 Estim Creat Clear Calc 103 Estimated GFR > 60 Glucose 108 POC Capillary Glucose 106 H Lactic Acid Calcium 8.0 L Phosphorus 2.9 Magnesium 2.3 Iron TIBC % Saturation Total Bilirubin 0.2 AST 20 ALT 10 Alkaline Phosphatase 194 H NT-Pro-B Natriuret Pep Total Protein 6.0 L Albumin 2.7 L Vitamin B12 Folate Procalcitonin Urine Color Urine Appearance Urine pH Ur Specific [place] Urine Protein Urine Glucose (UA) Urine Ketones Ur Blood (Man) Urine Nitrate Urine Bilirubin Urine Urobilinogen Leukocyte Esterase Rfl Nasal MRSA (PCR) Influenza A (RT-PCR) Influenza B (RT-PCR) RSV (RT-PCR) SARS-CoV-2 RNA (RT-PCR) Quality VTE Prophylaxis VTE prophylaxis: pharmacologic ordered
[2024-03-08 07:33] LABS: Hemoglobin 6.7 g/dL (14.0-18.0)
[2024-03-08] MEDS: BUDESONIDE RESPULE NEB 0.5 MG/2 ML AMP INHALATION ×2 (08:37→19:49)
[2024-03-08] MEDS: FLUTICASONE/SALMETEROL 230-21 MCG INHALER 1 PUFF 2 PUFF INHALATION ×2 (08:48→19:51)
[2024-03-08] MEDS: SODIUM CHLORIDE 0.9% IV 250 ML 30 ML IV CONT (09:02)
[2024-03-08] MEDS: ONDANSETRON HCL ODT 4 MG TABLET 8 MG PO ×4 (09:03→20:29)
[2024-03-08] MEDS: guaiFENesin 12 HR 600 MG TABCR 1200 MG PO ×2 (09:03→20:28)
[2024-03-08] MEDS: PANTOPRAZOLE 40 MG TABLET PO ×2 (09:03→17:39)
[2024-03-08] MEDS: METOPROLOL TARTRATE 12.5 MG TABLET PO ×2 (09:03→20:29)
[2024-03-08] MEDS: TAMSULOSIN HCL 0.4 MG CAPSULE PO (09:03)
[2024-03-08] MEDS: FOLIC ACID 1 MG TABLET PO (09:03)
[2024-03-08] MEDS: FERROUS SULFATE 325 MG TABLET DR PO (09:03)
[2024-03-08] MEDS: oxyCODONE HCL (*CRX) 20 MG TAB SR 12HR 40 MG PO ×2 (09:03→20:28)
[2024-03-08] MEDS: PREGABALIN (*CRX) 75 MG CAPSULE PO ×2 (09:04→20:28)
[2024-03-08] MEDS: CALCITONIN NASAL 200 UNITS/SPRAY 3.7 ML BOTTLE 1 SPRAY NASAL (10:42)
[2024-03-08] MEDS: CYANOCOBALAMIN 250 MCG TABLET PO (10:42)
[2024-03-08] MEDS: MEGESTROL ACETATE (*CHEMO) 20 MG TABLET PO (13:26)
[2024-03-08] MEDS: HYDROcodone/acetaminophen (*CRX) 5-325 MG TABLET 1 TAB PO (17:39)
[2024-03-08] MEDS: RIVAROXABAN 20 MG TABLET PO (17:40)
[2024-03-08] MEDS: MONTELUKAST SODIUM 10 MG TABLET PO (20:28)
[2024-03-08 23:36] LABS: Hematocrit 32.6 % (42.0-52.0); Hemoglobin 9.6 g/dL (14.0-18.0)
[2024-03-08] MEDS: FLUTICASONE PROPIONATE 0.05% NA SPR 16 GM BTL (*BKC) 1 SPRAY NASAL (23:41)
[2024-03-09] VITALS (12 sets, daily range): BP systolic 120–136; BP diastolic 73–75; PULSE 65–105; RESP 18–22; TEMP 35.9–37; O2SAT 96–99
[2024-03-09] MEDS: oxyCODONE HCL (*CRX) 5 MG TAB IR PO ×3 (02:29→14:07)
[2024-03-09] MEDS: CEFEPIME 2 GM/NS 50 ML 2 GM/50 ML BAG IVPB ×2 (05:12→17:43)
[2024-03-09] MEDS: TIZANIDINE HCL 4 MG TABLET PO ×2 (05:12→08:15)
[2024-03-09] MEDS: HYDROcodone/acetaminophen (*CRX) 5-325 MG TABLET 1 TAB PO ×2 (05:12→13:03)
[2024-03-09] MEDS: SODIUM CHLORIDE 0.9% IV 1,000 ML 100 ML IV CONT (05:23)
[2024-03-09] MEDS: ACETAMINOPHEN 500 MG TABLET PO ×2 (05:29→11:32)
[2024-03-09] MEDS: CENTRAL LINE FLUSH 10 ML IV PUSH ×3 (05:30→20:18)
[2024-03-09 05:32] LABS: Basophils Percent Auto 0.5 % (0.2-1.2); Eosinophils Percent Auto 0.3 % (0-4.4); Hematocrit 28.9 % (42.0-52.0); Hemoglobin 8.7 g/dL (14.0-18.0); Immature Granulocyte Absolute 0.06 K/mm3 (0.00-0.031); Immature Granulocyte Percent A 0.9 % (0-0.5); Lymphocytes Absolute Auto 0.84 K/mm3 (0.9-3.2); Mean Corpuscular HGB Conc 30.1 g/dl (32-36); Mean Corpuscular Hemoglobin 25.1 pg (26-34); Mean Corpuscular Volume 83.5 fl (80-100); Monocytes Percent Auto 16.1 % (2.6-8.5); Neutrophils Absolute Auto 4.5 K/mm3 (1.3-6.7); Neutrophils Percent Auto 69.2 % (45.5-73.1); Platelet Count Result 218 k/mm3 (150-375); Red Blood Count 3.46 M/mm3 (4.6-6.20); Red Cell Distribution Width 19.4 % (11.5-14.5); White Blood Count 6.5 K/mm3 (4.5-10.0)
[2024-03-09 05:46] LABS: Alanine Aminotransferase 11 U/L (6-50); Alkaline Phosphatase 339 U/L (38-126); Anion Gap 4 mmol/L (4-12); Aspartate Amino Transferase 42 U/L (17-59); Bilirubin,Total 0.4 mg/dL (0.2-1.3); Blood Urea Nitrogen 7 mg/dL (9-20); Calcium 7.9 mg/dL (8.4-10.2); Carbon Dioxide 28 mmol/L (22-30); Chloride 104 mmol/L (98-107); Estimated CRCL calculation 91 ml/min; Estimated Glomerular Filt Rate > 60; Glucose 112 mg/dL (65-110); Magnesium 1.9 mg/dL (1.6-2.3); Potassium 3.4 mmol/L (3.4-5.0); Sodium 136 mmol/L (137-145)
[2024-03-09] MEDS: BUDESONIDE RESPULE NEB 0.5 MG/2 ML AMP INHALATION ×2 (07:22→20:29)
[2024-03-09] MEDS: IPRATROPIUM 0.5 MG/ALBUTEROL SULFATE 2.5 MG AMPUL.NEB 3 ML INHALATION ×2 (07:22→20:29)
--- NOTE | 2024-03-09 07:35 | P.PNIM_ITS ---
Progress Note: A&P Assessment and Plan (1) Sepsis: Qualifiers: Sepsis acute organ dysfunction status: unspecified Sepsis type: sepsis due to unspecified organism Qualified Code(s): A41.9 - Sepsis, unspecified o rganism Code(s): A41.9 - Sepsis, unspecified organism Status: Resolved Assessment and Plan: * Patient started on IV vancomycin and Cefepime for pneumonia * Blood cultures with NGTD * Lactic acid ordered * NS bolus 1 L now and maintenance fluids at 100 ml per hour. If lactic is positive will complete resuscitation with 30 ml/kg * UA and culture pending * Low suspicion for C diff however he just completed antibiotics and he reports diarrhea. Patient has history of C diff infection. C diff pending. * No documented fever but patient reports chills, blood pressure 116/49, white count 4.3, with known pneumonia (2) Pneumonia: Qualifiers: Laterality: bilateral Lung location: unspecified part of lung Pneumonia type: due to unspecified organism Qualified Code(s): J18.9 - Pneumonia, unspecified organism Code(s): J18.9 - Pneumonia, unspecified organism Status: Acute Assessment and Plan: CT chest shows a new ground-glass opacity in left upper lobe and right upper lobe consistent with pneumonia. He has a stable right small pleural effusion with pleural thickening and worsened pulmonary nodules and bone lesions consistent with metastatic disease * Blood cultures were ordered in the emergency room prior to antibiotics----no growth to date * In the ED patient received Rocephin and azithromycin. However he recently failed treatment with Levaquin. Given his metastatic disease and recent treatment failure will broaden to cefepime and vancomycin. * Sputum culture has been ordered---pending * Duo nebs scheduled q.6, budesonide b.i.d * Adding steroids 40 mg PO daily * CTA negative for PE * Mucinex b.i.d. * Incentive spirometry and pep therapy (3) COPD (chronic obstructive pulmonary disease): Code(s): J44.9 - Chronic obstructive pulmonary disease, unspecified Status: Chronic Assessment and Plan: Chronically uses 3 L nasal cannula as needed however over the last few days has required daily use. * DuoNeb scheduled, budesonide b.i.d. * Continue home inhaler * And steroids if wheezing occurs. (4) Adenocarcinoma, lung: Qualifiers: Laterality: right Qualified Code(s): C34.91 - Malignant neoplasm of unspecified part of right bronchus or lung Code(s): C34.90 - Malignant neoplasm of unspecified part of unspecified bronchus or lung Status: Chronic Assessment and Plan: Patient follows with Dr. Baez. He has a follow-up appointment on 03/26. 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 He was receiving Keytruda however insurance is no longer covering. He goes on 03/[address] Baez about starting chemotherapy. * Implanted MediPort * Monitor ANC, may need neutropenic precaution (5) Anemia: Code(s): D64.9 - Anemia, unspecified Status: Acute Assessment and Plan: Patient has iron deficiency anemia which is compounded with NSCL adenocarcinoma metastatic cancer * Hgb was 6.7 g/dl * Repeat CBC shows persistent anemia * S/p 2 units pRBC * Continue iron supplements * Trend H/H * Transfuse less than 7 g/dl * No overt signs of bleeding Subjective Date/time seen: 03/09/24 07:35 Interval history: He received his 2 units of blood. He is having some back pain and muscle spasm. I encouraged him to be out of the bed today and in the chair. He was weaned to 2 L NC. Review of Systems Review of Systems: All systems reviewed & are unremarkable except as noted in HPI and below Exam Narrative: General: appears comfortable, in no acute distress Respiratory: breathing is unlabored with even chest rise/fall, lungs are clear without wheezing, rhonchi, and crackles Cardiovascular: Rate and rhythm regular, normal s1s2, no murmur Abdomen: Soft, round, non-tender, active bowel sounds Extremities: No cyanosis, edema, clubbing. Pulses 2/2 Neuro: A&O x 4 Skin: Warm, dry, intact Objective Data Vital Signs Vital Signs: Vital Signs - 24 hr 03/08/24 08:15 03/08/24 08:37 03/08/24 08:37 Temperature Pulse Rate 83 Respiratory Rate 20 Blood Pressure 105/58 L Pulse Oximetry 99 Oxygen Delivery Nasal Cannula Oxygen Flow Rate 3 Fraction of Inspired Oxygen 32 03/08/24 08:48 03/08/24 09:06 03/08/24 08:00 Temperature Pulse Rate 87 87 Respiratory Rate 20 20 Blood Pressure 110/54 L Pulse Oximetry 99 Oxygen Delivery Nasal Cannula Oxygen Flow Rate 3 Fraction of Inspired Oxygen 32 03/08/24 11:56 03/08/24 12:13 03/08/24 12:15 Temperature 98.7 F 97.6 F 98.1 F Pulse Rate 76 72 88 Respiratory Rate 20 20 20 Blood Pressure 110/58 L 100/60 108/54 L Pulse Oximetry 100 100 100 Oxygen Delivery Oxygen Flow Rate Fraction of Inspired Oxygen 03/08/24 13:15 03/08/24 13:46 03/08/24 14:15 Temperature 98.7 F 97.4 F L Pulse Rate 87 86 85 Respiratory Rate 20 20 17 Blood Pressure 108/54 L 108/64 Pulse Oximetry 100 99 Oxygen Delivery Oxygen Flow Rate Fraction of Inspired Oxygen 03/08/24 16:07 03/08/24 16:24 03/08/24 17:24 Temperature 98.2 F 97.7 F 97.9 F Pulse Rate 79 80 80 Respiratory Rate 20 20 20 Blood Pressure 112/60 118/64 108/60 Pulse Oximetry 100 100 100 Oxygen Delivery Oxygen Flow Rate Fraction of Inspired Oxygen 03/08/24 18:24 03/08/24 19:51 03/08/24 19:50 Temperature 97.9 F Pulse Rate 81 84 Respiratory Rate 20 18 Blood Pressure 120/60 Pulse Oximetry 94 Oxygen Delivery Nasal Cannula Oxygen Flow Rate 3 Fraction of Inspired Oxygen 32 03/08/24 20:29 03/08/24 20:29 03/08/24 20:00 Temperature 98.1 F Pulse Rate 84 83 Respiratory Rate 20 Blood Pressure 110/60 Pulse Oximetry 99 99 Oxygen Delivery Nasal Cannula Oxygen Flow Rate 3 Fraction of Inspired Oxygen 03/09/24 02:05 03/08/24 20:02 03/09/24 05:44 Temperature 98.6 F Pulse Rate 83 86 100 Respiratory Rate 18 18 22 H Blood Pressure 125/75 Pulse Oximetry 99 Oxygen Delivery Oxygen Flow Rate Fraction of Inspired Oxygen 03/09/24 02:15 03/09/24 07:22 03/09/24 07:22 Temperature Pulse Rate 84 105 H Respiratory Rate 18 20 Blood Pressure Pulse Oximetry 97 Oxygen Delivery Nasal Cannula Oxygen Flow Rate 3 Fraction of Inspired Oxygen 32 Intake/Output Intake/Output: Intake & Output 03/06/24 03/07/24 03/08/24 03/09/24 23:59 23:59 23:59 23:59 Intake Total 1550 4642 1350 Balance 1550 4642 1350 Meds/Results Medications: Active Medications Generic Name Dose Route Start Last Admin Trade Name Freq PRN Reason Stop Dose Admin Acetaminophen 500 mg 03/07/24 20:45 03/09/24 05:29 Acetaminophen 500 Mg Tablet PO 500 mg Q6H PRN Administration Pain (Scale Score 1-3) Hydrocodone Bitart/Acetaminophen 1 tab 03/07/24 20:45 03/09/24 05:12 Hydrocodone/Acetaminophen (*Crx) 5-325 Mg Tablet PO 1 tab Q8H PRN Administration Pain, Moderate Albuterol 2 puff 03/07/24 20:45 Albuterol Sulfate (*Sp) Aerosol 1 Puff INHALATION Q6H PRN Shortness Of Breath Or Wheezin Albuterol/Ipratropium 3 ml 03/07/24 20:00 03/09/24 07:22 Ipratropium 0.5 Mg/Albuterol Sulfate 2.5 Mg Ampul.Neb 3 Ml INHALATION 3 ml Q6HRT JESSICA Administration Budesonide 0.5 mg 03/07/24 20:00 03/09/24 07:22 Budesonide Respule Neb 0.5 Mg/2 Ml Amp INHALATION 0.5 mg Q12HRT JESSICA Administration Calcitonin [place] 1 spray 03/08/24 09:00 03/08/24 10:42 Calcitonin Nasal 200 Units/[place] 3.7 Ml Bottle NASAL 1 spray DAILY JESSICA Administration Cyanocobalamin 250 mcg 03/08/24 09:00 03/08/24 10:42 Cyanocobalamin 250 Mcg Tablet PO 250 mcg DAILY JESSICA Administration Ergocalciferol 50,000 units 03/17/24 09:00 Ergocalciferol 50,000 Units Capsule PO Mo@0900 JESSICA Fentanyl 12 mcg 03/07/24 22:45 03/07/24 23:08 Fentanyl (*Crx) 12 Mcg Patch TRANSDERM 12 mcg Q72HR JESSICA Administration Ferrous Sulfate 325 mg 03/08/24 09:00 03/08/24 09:03 Ferrous Sulfate [address] PO 325 mg DAILY JESSICA Administration Fluticasone Propionate 1 spray 03/08/24 21:00 03/08/24 23:41 Fluticasone Propionate 0.05% Na Spr 16 Gm Btl (*Bkc) NASAL 1 spray Q12HR JESSICA Administration Folic Acid 1 mg 03/08/24 09:00 03/08/24 09:03 Folic Acid 1 Mg Tablet PO 1 mg DAILY JESSICA Administration Furosemide 40 mg 03/07/24 20:45 03/07/24 21:42 Furosemide 40 Mg Tablet PO 40 mg DAILY PRN Administration SOB, edema Guaifenesin 1,200 mg 03/07/24 21:00 03/08/24 20:28 Guaifenesin 12 Hr 600 Mg Tabcr PO 1,200 mg Q12HR JESSICA Administration Heparin Sodium (Beef Lung) 50 units 03/08/24 09:00 03/08/24 09:04 Heparin Flush 50 Units/5 Ml Syringe IV PUSH Not Given QAM JESSICA Heparin Sodium (Beef Lung) 50 units 03/08/24 08:48 Heparin Flush 50 Units/5 Ml Syringe IV PUSH PRN PRN after intermittent infusion Heparin Sodium (Beef Lung) 50 units 03/08/24 08:48 Heparin Flush 50 Units/5 Ml Syringe IV PUSH PRN PRN after blood draws Heparin Sodium (Porcine) 500 units 03/08/24 08:48 Heparin Sodium Lock Flush 500 Units/5 Ml Syringe IV PUSH PRN PRN see comments below Cefepime HCl 2 gm in 50 mls @ 100 mls/hr 03/07/24 18:00 03/09/24 05:12 Maxipime 2 Gm/Ns 50 Ml IVPB 100 mls/hr Q12H JESSICA Administration Sodium Chloride 1,000 mls @ 100 mls/hr 03/07/24 16:40 03/09/24 05:23 Normal Saline Iv IV CONT 100 mls/hr .Q10H JESSICA Administration Lorazepam 0.5 mg 03/07/24 20:45 03/08/24 20:32 Lorazepam (*Crx) 0.5 Mg Tablet PO 0.5 mg Q8H PRN Administration Anxiety Megestrol Acetate 20 mg 03/08/24 12:20 03/08/24 13:26 Megestrol Acetate (*Chemo) 20 Mg Tablet PO 20 mg QAM JESSICA Administration Metoprolol Tartrate 12.5 mg 03/07/24 21:00 03/08/24 20:29 Metoprolol Tartrate 12.5 Mg Tablet PO 12.5 mg Q12HR JESSICA Administration Montelukast Sodium 10 mg 03/07/24 21:00 03/08/24 20:28 Montelukast Sodium 10 Mg Tablet PO 10 mg HS JESSICA Administration Naloxone HCl 0.1 mg 03/07/24 16:03 Naloxone Hcl 0.4 Mg/Ml Vial IV PUSH Q5MIN PRN Opioid Reversal Ondansetron HCl 8 mg 03/07/24 21:00 03/08/24 20:29 Ondansetron Hcl Odt 4 Mg Tablet PO 8 mg QID JESSICA Administration Oxycodone HCl 5 mg 03/07/24 20:45 03/09/24 02:29 Oxycodone Hcl (*Crx) 5 Mg Tab Ir PO 5 mg Q6H PRN Administration BREAKTHROUGH PAIN Oxycodone HCl 40 mg 03/08/24 09:00 03/08/24 20:28 Oxycodone Hcl (*Crx) 20 Mg Tab Sr 12hr PO 40 mg Q12H JESSICA Administration Pantoprazole Sodium 40 mg 03/07/24 21:00 03/08/24 17:39 Pantoprazole 40 Mg Tablet PO 40 mg BID JESSICA Administration Pregabalin 75 mg 03/07/24 21:00 03/08/24 20:28 Pregabalin (*Crx) 75 Mg Capsule PO 75 mg Q12HR JESSICA Administration Rivaroxaban 20 mg 03/07/24 21:00 03/08/24 17:40 Rivaroxaban 20 Mg Tablet PO 20 mg DAILY@1700 JESSICA Administration Fluticasone/Salmeterol 2 puff 03/08/24 08:00 03/08/24 19:51 Fluticasone/Salmeterol 230-21 Mcg Inhaler 1 Puff INHALATION 2 puff Q12HRT JESSICA Administration Sodium Chloride 10 ml 03/08/24 14:00 03/09/24 05:30 Central Line Flush IV PUSH 10 ml Q8HR JESSICA Administration Tamsulosin HCl 0.4 mg 03/08/24 09:00 03/08/24 09:03 Tamsulosin Hcl 0.4 Mg Capsule PO 0.4 mg DAILY JESSICA Administration Tizanidine HCl 4 mg 03/07/24 20:45 03/09/24 05:12 Tizanidine Hcl 4 Mg Tablet PO 4 mg TID PRN Administration Muscle Spasm Triamcinolone Acetonide 1 applic 03/07/24 20:45 Triamcinolone Acet 0.1% Cream 15 Gm Tube TOPICAL QID PRN psioriasis Radiology Results: ITS Impressions Chest X-Ray 03/07/24 07:16 Impression: Small right pleural effusion. Stable right upper lobe consolidation which could reflect posttreatment change. Correlate clinically for pneumonia. Stable left sided Mediport. Chest CT 03/07/24 13:32 IMPRESSION: 1. New groundglass opacities in left upper lobe and right lower lobe, consistent with pneumonia. 2. Stable radiation pneumonitis in perihilar right lung. 3. Stable small right pleural effusion with pleural thickening. 4. Worsened pulmonary nodules and bone lesions, consistent with metastatic disease. Chest CTA 03/08/24 21:36 IMPRESSION: No evidence of pulmonary embolism is detected in the main pulmonary arteries, lobar or segmental pulmonary arteries; peripheral pulmonary arteries are obscured due to motion and limited contrast opacification Labs Labs: Laboratory Results - last 24 hr 03/07/24 03/08/24 03/09/24 08:41 23:31 05:21 WBC 6.5 RBC 3.46 L Hgb 9.6 L 8.7 L Hct 32.6 L 28.9 L MCV 83.5 MCH 25.1 L D MCHC 30.1 L RDW 19.4 H Plt Count 218 MPV 10.0 Immature Gran % (Auto) 0.9 H Neut % (Auto) 69.2 Lymph % (Auto) 13.0 L [place] % (Auto) 16.1 H Eos % (Auto) 0.3 Baso % (Auto) 0.5 Lymph # (Auto) 0.84 L [place] # (Auto) 1.0 H Eos # (Auto) 0.0 Baso # (Auto) 0.0 Abs Immat Gran (auto) 0.06 H Absolute Neuts (auto) 4.5 Absolute Nucleated RBC 0.000 Nucleated RBC % 0.0 Sodium 136 L Potassium 3.4 Chloride 104 Carbon Dioxide 28 Anion Gap 4 BUN 7 L Creatinine 0.80 Estim Creat Clear Calc 91 Estimated GFR > 60 Glucose 112 H Calcium 7.9 L Phosphorus 3.0 Magnesium 1.9 Total Bilirubin 0.4 AST 42 ALT 11 Alkaline Phosphatase 339 H Total Protein 6.0 L Albumin 3.0 L Blood Type A Positive Antibody Screen Negative Crossmatch See Detail Quality VTE Prophylaxis VTE prophylaxis: pharmacologic ordered
[2024-03-09] MEDS: FLUTICASONE/SALMETEROL 230-21 MCG INHALER 1 PUFF 2 PUFF INHALATION ×2 (07:37→20:30)
[2024-03-09] MEDS: CALCITONIN NASAL 200 UNITS/SPRAY 3.7 ML BOTTLE 1 SPRAY NASAL (08:12)
[2024-03-09] MEDS: CYANOCOBALAMIN 250 MCG TABLET PO (08:15)
[2024-03-09] MEDS: FLUTICASONE PROPIONATE 0.05% NA SPR 16 GM BTL (*BKC) 1 SPRAY NASAL ×2 (08:15→20:16)
[2024-03-09] MEDS: PREGABALIN (*CRX) 75 MG CAPSULE PO ×2 (08:15→20:14)
[2024-03-09] MEDS: oxyCODONE HCL (*CRX) 20 MG TAB SR 12HR 40 MG PO ×2 (08:15→20:15)
[2024-03-09] MEDS: guaiFENesin 12 HR 600 MG TABCR 1200 MG PO ×2 (08:15→20:15)
[2024-03-09] MEDS: ONDANSETRON HCL ODT 4 MG TABLET 8 MG PO ×4 (08:15→20:14)
[2024-03-09] MEDS: MEGESTROL ACETATE (*CHEMO) 20 MG TABLET PO (08:15)
[2024-03-09] MEDS: METOPROLOL TARTRATE 12.5 MG TABLET PO ×2 (08:16→20:14)
[2024-03-09] MEDS: FOLIC ACID 1 MG TABLET PO (08:16)
[2024-03-09] MEDS: TAMSULOSIN HCL 0.4 MG CAPSULE PO (08:16)
[2024-03-09] MEDS: FERROUS SULFATE 325 MG TABLET DR PO (08:16)
[2024-03-09] MEDS: PANTOPRAZOLE 40 MG TABLET PO ×2 (08:16→16:10)
[2024-03-09] MEDS: predniSONE 20 MG TABLET 40 MG PO (11:32)
[2024-03-09] MEDS: CYCLOBENZAPRINE HCL 10 MG TABLET PO (13:06)
[2024-03-09] MEDS: RIVAROXABAN 20 MG TABLET PO (16:10)
[2024-03-09] MEDS: MONTELUKAST SODIUM 10 MG TABLET PO (20:14)
[2024-03-10] VITALS (16 sets, daily range): BP systolic 113–136; BP diastolic 50–72; PULSE 73–87; RESP 16–20; TEMP 36.5–36.9; O2SAT 95–99; BMI 27.1
[2024-03-10] MEDS: IPRATROPIUM 0.5 MG/ALBUTEROL SULFATE 2.5 MG AMPUL.NEB 3 ML INHALATION ×4 (01:54→20:05)
[2024-03-10] MEDS: CEFEPIME 2 GM/NS 50 ML 2 GM/50 ML BAG IVPB (05:45)
[2024-03-10] MEDS: HYDROcodone/acetaminophen (*CRX) 5-325 MG TABLET 1 TAB PO (05:54)
[2024-03-10] MEDS: LORazepam (*CRX) 0.5 MG TABLET PO (05:54)
[2024-03-10 06:01] LABS: Basophils Percent Auto 0.3 % (0.2-1.2); Eosinophils Percent Auto 0.1 % (0-4.4); Hematocrit 28.4 % (42.0-52.0); Hemoglobin 8.4 g/dL (14.0-18.0); Immature Granulocyte Absolute 0.03 K/mm3 (0.00-0.031); Immature Granulocyte Percent A 0.4 % (0-0.5); Lymphocytes Absolute Auto 1.01 K/mm3 (0.9-3.2); Lymphocytes Percent Auto 14.3 % (18.3-44.2); Mean Corpuscular HGB Conc 29.6 g/dl (32-36); Mean Corpuscular Hemoglobin 24.6 pg (26-34); Mean Corpuscular Volume 83.3 fl (80-100); Mean Platelet Volume 10.6 fl (7.4-10.4); Monocytes Absolute Auto 1.1 K/mm3 (0.1-0.6); Neutrophils Absolute Auto 4.9 K/mm3 (1.3-6.7); Neutrophils Percent Auto 69.9 % (45.5-73.1); Platelet Count Result 223 k/mm3 (150-375); Red Blood Count 3.41 M/mm3 (4.6-6.20); Red Cell Distribution Width 19.9 % (11.5-14.5); White Blood Count 7.1 K/mm3 (4.5-10.0)
[2024-03-10 06:23] LABS: Alanine Aminotransferase 10 U/L (6-50); Albumin Level 2.9 g/dL (3.5-5.1); Alkaline Phosphatase 307 U/L (38-126); Anion Gap 5 mmol/L (4-12); Aspartate Amino Transferase 21 U/L (17-59); Bilirubin,Total 0.3 mg/dL (0.2-1.3); Blood Urea Nitrogen 10 mg/dL (9-20); Carbon Dioxide 29 mmol/L (22-30); Chloride 102 mmol/L (98-107); Estimated CRCL calculation 103 ml/min; Estimated Glomerular Filt Rate > 60; Glucose 117 mg/dL (65-110); Magnesium 2.2 mg/dL (1.6-2.3); Phosphorus 3.3 mg/dL (2.5-4.5); Sodium 136 mmol/L (137-145)
[2024-03-10 06:47] LABS: Anisocytosis 1+; Hypochromasia 1+; Microcytosis 1+ (NORMAL); Ovalocytes 1+; Platelet Estimate Adequate (Adequate); Schistocytes None Seen
[2024-03-10] MEDS: CENTRAL LINE FLUSH 10 ML IV PUSH ×3 (06:55→22:00)
[2024-03-10] MEDS: FLUTICASONE/SALMETEROL 230-21 MCG INHALER 1 PUFF 2 PUFF INHALATION ×2 (08:07→20:05)
[2024-03-10] MEDS: BUDESONIDE RESPULE NEB 0.5 MG/2 ML AMP INHALATION ×2 (08:08→20:05)
[2024-03-10] MEDS: PREGABALIN (*CRX) 75 MG CAPSULE PO ×2 (09:00→20:02)
[2024-03-10] MEDS: fentaNYL (*CRX) 12 MCG PATCH TRANSDERM (09:00)
[2024-03-10] MEDS: TAMSULOSIN HCL 0.4 MG CAPSULE PO (09:00)
[2024-03-10] MEDS: CYANOCOBALAMIN 250 MCG TABLET PO (09:00)
[2024-03-10] MEDS: predniSONE 20 MG TABLET 40 MG PO (09:01)
[2024-03-10] MEDS: ONDANSETRON HCL ODT 4 MG TABLET 8 MG PO ×4 (09:01→20:02)
[2024-03-10] MEDS: FERROUS SULFATE 325 MG TABLET DR PO (09:01)
[2024-03-10] MEDS: PANTOPRAZOLE 40 MG TABLET PO ×2 (09:02→17:21)
[2024-03-10] MEDS: MEGESTROL ACETATE (*CHEMO) 20 MG TABLET PO (09:02)
[2024-03-10] MEDS: FOLIC ACID 1 MG TABLET PO (09:02)
[2024-03-10] MEDS: POTASSIUM CHLORIDE 20 MEQ ER TABLET 40 MEQ PO (09:02)
[2024-03-10] MEDS: guaiFENesin 12 HR 600 MG TABCR 1200 MG PO ×2 (09:02→20:02)
[2024-03-10] MEDS: oxyCODONE HCL (*CRX) 20 MG TAB SR 12HR 40 MG PO ×2 (09:02→20:02)
[2024-03-10] MEDS: FLUTICASONE PROPIONATE 0.05% NA SPR 16 GM BTL (*BKC) 1 SPRAY NASAL ×2 (09:03→20:02)
[2024-03-10] MEDS: CALCITONIN NASAL 200 UNITS/SPRAY 3.7 ML BOTTLE 1 SPRAY NASAL (09:03)
[2024-03-10] MEDS: METOPROLOL TARTRATE 12.5 MG TABLET PO ×2 (09:09→20:02)
--- NOTE | 2024-03-10 10:02 | P.PNIM_ITS ---
Progress Note: A&P Assessment and Plan (1) Sepsis: Qualifiers: Sepsis type: sepsis due to unspecified organism Sepsis acute organ dysfunction status: unspecified Qualified Code(s): A41.9 - Sepsis, unspecified organism Code(s): A41.9 - Sepsis, unspecified organism Status: Resolved Assessment and Plan: * Patient started on IV vancomycin and Cefepime for pneumonia * Blood cultures with NGTD * Lactic acid ordered * NS bolus 1 L now and maintenance fluids at 100 ml per hour. If lactic is positive will complete resuscitation with 30 ml/kg * UA and culture pending * Low suspicion for C diff however he just completed antibiotics and he reports diarrhea. Patient has history of C diff infection. C diff pending. * No documented fever but patient reports chills, blood pressure 116/49, white count 4.3, with known pneumonia (2) Pneumonia: Qualifiers: Laterality: bilateral Lung location: unspecified part of lung Pneumonia type: due to unspecified organism Qualified Code(s): J18.9 - Pneumonia, unspecified organism Code(s): J18.9 - Pneumonia, unspecified organism Status: Acute Assessment and Plan: CT chest shows a new ground-glass opacity in left upper lobe and right upper lobe consistent with pneumonia. He has a stable right small pleural effusion with pleural thickening and worsened pulmonary nodules and bone lesions consistent with metastatic disease * Blood cultures were ordered in the emergency room prior to antibiotics----no growth to date * In the ED patient received Rocephin and azithromycin. However he recently failed treatment with Levaquin. Given his metastatic disease and recent treatment failure will broaden to cefepime and vancomycin. * Sputum culture has been ordered---pending * Duo nebs scheduled q.6, budesonide b.i.d * Adding steroids 40 mg PO daily * CTA negative for PE * Mucinex b.i.d. 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 * Continue Duonebs * Continue steroids * Continue Mucinex, IS and Pep therapy. (3) COPD (chronic obstructive pulmonary disease): Code(s): J44.9 - Chronic obstructive pulmonary disease, unspecified Status: Chronic Assessment and Plan: Chronically uses 3 L nasal cannula as needed however over the last few days has required daily use. * DuoNeb scheduled, budesonide b.i.d. * Continue home inhaler * And steroids if wheezing occurs. 03/10/24: * See Plan for #1 * Pt on baseline supplemental oxygen at this time. (4) Adenocarcinoma, lung: Qualifiers: Laterality: right Qualified Code(s): C34.91 - Malignant neoplasm of unspecified part of right bronchus or lung Code(s): C34.90 - Malignant neoplasm of unspecified part of unspecified bronchus or lung Status: Chronic Assessment and Plan: Patient follows with Dr. Baez. He has a follow-up appointment on 03/26. 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 He was receiving Keytruda however insurance is no longer covering. He goes on 03/[address] Baez about starting chemotherapy. * Implanted MediPort * Monitor ANC, may need neutropenic precaution 03/10/24: * ANC 4.9. * Keep upcoming appointment with Dr. Baez. (5) Anemia: Code(s): D64.9 - Anemia, unspecified Status: Acute Assessment and Plan: Patient has iron deficiency anemia which is compounded with NSCL adenocarcinoma metastatic cancer * Hgb was 6.7 g/dl * Repeat CBC shows persistent anemia * S/p 2 units pRBC * Continue iron supplements * Trend H/H * Transfuse less than 7 g/dl * No overt signs of bleeding 03/10/24: * Hgb this AM stable at 8.4. * Continue to trend and transfuse if needed. Plan Delayed discharge for today as pt states he does not feel well overall today. Will monitor labs and vs and trends and re-evaluate tomorrow for possible discharge. Time Spent With Patient Time with patient: 15 - 25 minutes Subjective Date/time seen: 03/10/24 10:02 Interval history: This male pt was examined at the bedside today and he continues to complain of just feeling generally unwell. He endorses some intermittent dyspnea, body aches and general malaise. He remains on IV abx at this time of Cefepime. Pt states he does not feel well enough to go home today to care for himself. His Potassium today is slightly low at 3.0 and he will receive a po dose. Review of Systems Review of Systems: All systems reviewed & are unremarkable except as noted in HPI and below Exam Narrative: General: appears comfortable, in no acute distress Respiratory: breathing is unlabored with even chest rise/fall, lungs are clear without wheezing, rhonchi, and crackles Cardiovascular: Rate and rhythm regular, normal s1s2, no murmur Abdomen: Soft, round, non-tender, active bowel sounds Extremities: No cyanosis, edema, clubbing. Pulses 2/2 Neuro: A&O x 4 Skin: Warm, dry, intact Objective Data Vital Signs Vital Signs: Vital Signs - 24 hr 03/09/24 14:00 03/09/24 20:14 03/09/24 20:31 Temperature 96.6 F L Pulse Rate 84 84 Respiratory Rate 20 Blood Pressure 120/73 Pulse Oximetry 99 97 Oxygen Delivery Nasal Cannula Oxygen Flow Rate 3 Fraction of Inspired Oxygen 03/09/24 20:32 03/09/24 20:40 03/09/24 20:46 Temperature 97.3 F L Pulse Rate 65 69 69 Respiratory Rate 18 18 18 Blood Pressure 136/73 Pulse Oximetry 99 Oxygen Delivery Oxygen Flow Rate Fraction of Inspired Oxygen 03/10/24 01:56 03/10/24 02:04 03/10/24 05:36 Temperature 98.3 F Pulse Rate 74 76 73 Respiratory Rate 18 18 18 Blood Pressure 122/59 L Pulse Oximetry 98 Oxygen Delivery Oxygen Flow Rate Fraction of Inspired Oxygen 03/10/24 08:10 03/10/24 08:10 03/10/24 08:21 Temperature Pulse Rate 84 84 87 Respiratory Rate 20 20 20 Blood Pressure Pulse Oximetry 99 Oxygen Delivery Nasal Cannula Oxygen Flow Rate 3 Fraction of Inspired Oxygen 32 03/10/24 09:08 03/10/24 09:09 Temperature Pulse Rate 85 85 Respiratory Rate 16 Blood Pressure 113/50 L Pulse Oximetry 97 Oxygen Delivery Oxygen Flow Rate Fraction of Inspired Oxygen Intake/Output Intake/Output: Intake & Output 03/07/24 03/08/24 03/09/24 03/10/24 23:59 23:59 23:59 23:59 Intake Total 1550 4642 2650 300 Output Total 725 Balance 1550 4642 1925 300 Meds/Results Medications: Active Medications Generic Name Dose Route Start Last Admin Trade Name Freq PRN Reason Stop Dose Admin Acetaminophen 500 mg 03/07/24 20:45 03/09/24 11:32 Acetaminophen 500 Mg Tablet PO 500 mg Q6H PRN Administration Pain (Scale Score 1-3) Hydrocodone Bitart/Acetaminophen 1 tab 03/07/24 20:45 03/10/24 05:54 Hydrocodone/Acetaminophen (*Crx) 5-325 Mg Tablet PO 1 tab Q8H PRN Administration Pain, Moderate Albuterol 2 puff 03/07/24 20:45 Albuterol Sulfate (*Sp) Aerosol 1 Puff INHALATION Q6H PRN Shortness Of Breath Or Wheezin Albuterol/Ipratropium 3 ml 03/07/24 20:00 03/10/24 08:07 Ipratropium 0.5 Mg/Albuterol Sulfate 2.5 Mg Ampul.Neb 3 Ml INHALATION 3 ml Q6HRT JESSICA Administration Budesonide 0.5 mg 03/07/24 20:00 03/10/24 08:08 Budesonide Respule Neb 0.5 Mg/2 Ml Amp INHALATION 0.5 mg Q12HRT JESSICA Administration Calcitonin Tiff 1 spray 03/08/24 09:00 03/10/24 09:03 Calcitonin Nasal 200 Units/[place] 3.7 Ml Bottle NASAL 1 spray DAILY JESSICA Administration Cyanocobalamin 250 mcg 03/08/24 09:00 03/10/24 09:00 Cyanocobalamin 250 Mcg Tablet PO 250 mcg DAILY JESSICA Administration Cyclobenzaprine HCl 10 mg 03/09/24 10:12 03/09/24 13:06 Cyclobenzaprine Hcl 10 Mg Tablet PO 10 mg Q8H PRN Administration Muscle Spasm Ergocalciferol 50,000 units 03/17/24 09:00 Ergocalciferol 50,000 Units Capsule PO Mo@0900 JESSICA Fentanyl 12 mcg 03/07/24 22:45 03/10/24 09:00 Fentanyl (*Crx) 12 Mcg Patch TRANSDERM 12 mcg Q72HR JESSICA Administration Ferrous Sulfate 325 mg 03/08/24 09:00 03/10/24 09:01 Ferrous Sulfate [address] PO 325 mg DAILY JESSICA Administration Fluticasone Propionate 1 spray 03/08/24 21:00 03/10/24 09:03 Fluticasone Propionate 0.05% Na Spr 16 Gm Btl (*Bkc) NASAL 1 spray Q12HR JESSICA Administration Folic Acid 1 mg 03/08/24 09:00 03/10/24 09:02 Folic Acid 1 Mg Tablet PO 1 mg DAILY JESSICA Administration Furosemide 40 mg 03/07/24 20:45 03/07/24 21:42 Furosemide 40 Mg Tablet PO 40 mg DAILY PRN Administration SOB, edema Guaifenesin 1,200 mg 03/07/24 21:00 03/10/24 09:02 Guaifenesin 12 Hr 600 Mg Tabcr PO 1,200 mg Q12HR JESSICA Administration Heparin Sodium (Beef Lung) 50 units 03/08/24 09:00 03/10/24 09:01 Heparin Flush 50 Units/5 Ml Syringe IV PUSH 50 units QAM JESSICA Administration Heparin Sodium (Beef Lung) 50 units 03/08/24 08:48 Heparin Flush 50 Units/5 Ml Syringe IV PUSH PRN PRN after intermittent infusion Heparin Sodium (Beef Lung) 50 units 03/08/24 08:48 Heparin Flush 50 Units/5 Ml Syringe IV PUSH PRN PRN after blood draws Heparin Sodium (Porcine) 500 units 03/08/24 08:48 Heparin Sodium Lock Flush 500 Units/5 Ml Syringe IV PUSH PRN PRN see comments below Cefepime HCl 2 gm in 50 mls @ 100 mls/hr 03/07/24 18:00 03/10/24 06:15 Maxipime 2 Gm/Ns 50 Ml IVPB Infused Q12H JESSICA Infusion Lorazepam 0.5 mg 03/07/24 20:45 03/10/24 05:54 Lorazepam (*Crx) 0.5 Mg Tablet PO 0.5 mg Q8H PRN Administration Anxiety Megestrol Acetate 20 mg 03/08/24 12:20 03/10/24 09:02 Megestrol Acetate (*Chemo) 20 Mg Tablet PO 20 mg QAM JESSICA Administration Menthol/Methyl Salicylate 1 applic 03/09/24 10:13 Menthol 10% / Methyl Salicylate 15% 57 Gm Tube TOPICAL BID PRN Muscle/Joint Pain Metoprolol Tartrate 12.5 mg 03/07/24 21:00 03/10/24 09:09 Metoprolol Tartrate 12.5 Mg Tablet PO 12.5 mg Q12HR JESSICA Administration Montelukast Sodium 10 mg 03/07/24 21:00 03/09/24 20:14 Montelukast Sodium 10 Mg Tablet PO 10 mg HS JESSICA Administration Naloxone HCl 0.1 mg 03/07/24 16:03 Naloxone Hcl 0.4 Mg/Ml Vial IV PUSH Q5MIN PRN Opioid Reversal Ondansetron HCl 8 mg 03/07/24 21:00 03/10/24 09:01 Ondansetron Hcl Odt 4 Mg Tablet PO 8 mg QID JESSICA Administration Oxycodone HCl 5 mg 03/07/24 20:45 03/09/24 14:07 Oxycodone Hcl (*Crx) 5 Mg Tab Ir PO 5 mg Q6H PRN Administration BREAKTHROUGH PAIN Oxycodone HCl 40 mg 03/08/24 09:00 03/10/24 09:02 Oxycodone Hcl (*Crx) 20 Mg Tab Sr 12hr PO 40 mg Q12H JESSICA Administration Pantoprazole Sodium 40 mg 03/07/24 21:00 03/10/24 09:02 Pantoprazole 40 Mg Tablet PO 40 mg BID JESSICA Administration Prednisone 40 mg 03/09/24 10:50 03/10/24 09:01 Prednisone 20 Mg Tablet PO 40 mg DAILY@0800 JESSICA Administration Pregabalin 75 mg 03/07/24 21:00 03/10/24 09:00 Pregabalin (*Crx) 75 Mg Capsule PO 75 mg Q12HR JESSICA Administration Rivaroxaban 20 mg 03/07/24 21:00 03/09/24 16:10 Rivaroxaban 20 Mg Tablet PO 20 mg DAILY@1700 JESSICA Administration Fluticasone/Salmeterol 2 puff 03/08/24 08:00 03/10/24 08:07 Fluticasone/Salmeterol 230-21 Mcg Inhaler 1 Puff INHALATION 2 puff Q12HRT JESSICA Administration Sodium Chloride 10 ml 03/08/24 14:00 03/10/24 06:55 Central Line Flush IV PUSH 10 ml Q8HR JESSICA Administration Tamsulosin HCl 0.4 mg 03/08/24 09:00 03/10/24 09:00 Tamsulosin Hcl 0.4 Mg Capsule PO 0.4 mg DAILY JESSICA Administration Tizanidine HCl 4 mg 03/07/24 20:45 03/09/24 08:15 Tizanidine Hcl 4 Mg Tablet PO 4 mg TID PRN Administration Muscle Spasm Triamcinolone Acetonide 1 applic 03/07/24 20:45 Triamcinolone Acet 0.1% Cream 15 Gm Tube TOPICAL QID PRN psioriasis Radiology Results: ITS Impressions Chest X-Ray 03/07/24 07:16 Impression: Small right pleural effusion. Stable right upper lobe consolidation which could reflect posttreatment change. Correlate clinically for pneumonia. Stable left sided Mediport. Chest CT 03/07/24 13:32 IMPRESSION: 1. New groundglass opacities in left upper lobe and right lower lobe, consistent with pneumonia. 2. Stable radiation pneumonitis in perihilar right lung. 3. Stable small right pleural effusion with pleural thickening. 4. Worsened pulmonary nodules and bone lesions, consistent with metastatic disease. Chest CTA 03/08/24 21:36 IMPRESSION: No evidence of pulmonary embolism is detected in the main pulmonary arteries, lobar or segmental pulmonary arteries; peripheral pulmonary arteries are obscured due to motion and limited contrast opacification Labs Labs: Laboratory Results - last 24 hr 03/10/24 05:51 WBC 7.1 RBC 3.41 L Hgb 8.4 L Hct 28.4 L MCV 83.3 MCH 24.6 L MCHC 29.6 L RDW 19.9 H Plt Count 223 MPV 10.6 H Immature Gran % (Auto) 0.4 Neut % (Auto) 69.9 Lymph % (Auto) 14.3 L [place] % (Auto) 15.0 H Eos % (Auto) 0.1 Baso % (Auto) 0.3 Lymph # (Auto) 1.01 [place] # (Auto) 1.1 H Eos # (Auto) 0.0 Baso # (Auto) 0.0 Abs Immat Gran (auto) 0.03 Absolute Neuts (auto) 4.9 Absolute Nucleated RBC 0.000 Nucleated RBC % 0.0 Platelet Estimate Adequate Hypochromasia 1+ Anisocytosis 1+ Microcytosis 1+ Ovalocytes 1+ Schistocytes None seen Sodium 136 L Potassium 3.0 L Chloride 102 Carbon Dioxide 29 Anion Gap 5 BUN 10 Creatinine 0.70 Estim Creat Clear Calc 103 Estimated GFR > 60 Glucose 117 H Calcium 8.0 L Phosphorus 3.3 Magnesium 2.2 Total Bilirubin 0.3 AST 21 ALT 10 Alkaline Phosphatase 307 H Total Protein 6.0 L Albumin 2.9 L Quality VTE Prophylaxis VTE prophylaxis: pharmacologic ordered
[2024-03-10] MEDS: CYCLOBENZAPRINE HCL 10 MG TABLET PO ×2 (10:35→17:24)
[2024-03-10] MEDS: oxyCODONE HCL (*CRX) 5 MG TAB IR PO (12:06)
[2024-03-10] MEDS: RIVAROXABAN 20 MG TABLET PO (17:21)
[2024-03-10] MEDS: AMOXICILLIN/CLAVULANATE K 875-125 MG TAB 1 TABLET PO (19:04)
[2024-03-10] MEDS: MONTELUKAST SODIUM 10 MG TABLET PO (20:02)
[2024-03-11] VITALS (16 sets, daily range): BP systolic 129–146; BP diastolic 58–69; PULSE 68–88; RESP 14–20; TEMP 36.4; O2SAT 98–100
[2024-03-11] MEDS: CYCLOBENZAPRINE HCL 10 MG TABLET PO ×2 (01:43→22:04)
[2024-03-11] MEDS: IPRATROPIUM 0.5 MG/ALBUTEROL SULFATE 2.5 MG AMPUL.NEB 3 ML INHALATION ×4 (02:31→20:04)
[2024-03-11] MEDS: CENTRAL LINE FLUSH 10 ML IV PUSH ×3 (06:09→20:23)
[2024-03-11 06:23] LABS: Basophils Percent Auto 0.4 % (0.2-1.2); Eosinophils Percent Auto 0.1 % (0-4.4); Hemoglobin 8.9 g/dL (14.0-18.0); Immature Granulocyte Absolute 0.03 K/mm3 (0.00-0.031); Immature Granulocyte Percent A 0.4 % (0-0.5); Lymphocytes Absolute Auto 1.04 K/mm3 (0.9-3.2); Lymphocytes Percent Auto 13.6 % (18.3-44.2); Mean Corpuscular HGB Conc 29.7 g/dl (32-36); Mean Corpuscular Hemoglobin 24.6 pg (26-34); Mean Corpuscular Volume 82.9 fl (80-100); Mean Platelet Volume 9.7 fl (7.4-10.4); Monocytes Absolute Auto 0.7 K/mm3 (0.1-0.6); Monocytes Percent Auto 8.6 % (2.6-8.5); Neutrophils Absolute Auto 5.9 K/mm3 (1.3-6.7); Neutrophils Percent Auto 76.9 % (45.5-73.1); Platelet Count Result 247 k/mm3 (150-375); Red Blood Count 3.62 M/mm3 (4.6-6.20); Red Cell Distribution Width 19.9 % (11.5-14.5); White Blood Count 7.6 K/mm3 (4.5-10.0)
[2024-03-11 06:41] LABS: Alanine Aminotransferase 10 U/L (6-50); Albumin Level 3.1 g/dL (3.5-5.1); Alkaline Phosphatase 301 U/L (38-126); Anion Gap 4 mmol/L (4-12); Aspartate Amino Transferase 19 U/L (17-59); Bilirubin,Total 0.3 mg/dL (0.2-1.3); Blood Urea Nitrogen 12 mg/dL (9-20); Calcium 8.7 mg/dL (8.4-10.2); Carbon Dioxide 33 mmol/L (22-30); Chloride 103 mmol/L (98-107); Estimated CRCL calculation 103 ml/min; Estimated Glomerular Filt Rate > 60; Glucose 121 mg/dL (65-110); Magnesium 2.2 mg/dL (1.6-2.3); Phosphorus 3.1 mg/dL (2.5-4.5); Potassium 3.5 mmol/L (3.4-5.0); Sodium 140 mmol/L (137-145)
[2024-03-11] MEDS: BUDESONIDE RESPULE NEB 0.5 MG/2 ML AMP INHALATION ×2 (06:58→20:04)
[2024-03-11] MEDS: FLUTICASONE/SALMETEROL 230-21 MCG INHALER 1 PUFF 2 PUFF INHALATION ×2 (06:59→20:04)
[2024-03-11 07:26] LABS: Anisocytosis 2+; Hypochromasia 1+; Platelet Estimate Adequate (Adequate); Schistocytes None Seen
[2024-03-11] MEDS: MEGESTROL ACETATE (*CHEMO) 20 MG TABLET PO (08:37)
[2024-03-11] MEDS: PANTOPRAZOLE 40 MG TABLET PO ×2 (08:37→16:22)
[2024-03-11] MEDS: FERROUS SULFATE 325 MG TABLET DR PO (08:37)
[2024-03-11] MEDS: guaiFENesin 12 HR 600 MG TABCR 1200 MG PO ×2 (08:37→20:21)
[2024-03-11] MEDS: oxyCODONE HCL (*CRX) 20 MG TAB SR 12HR 40 MG PO ×2 (08:37→20:21)
[2024-03-11] MEDS: predniSONE 20 MG TABLET 40 MG PO (08:37)
[2024-03-11] MEDS: PREGABALIN (*CRX) 75 MG CAPSULE PO ×2 (08:37→20:21)
[2024-03-11] MEDS: ONDANSETRON HCL ODT 4 MG TABLET 8 MG PO ×4 (08:37→20:23)
[2024-03-11] MEDS: METOPROLOL TARTRATE 12.5 MG TABLET PO ×2 (08:37→20:21)
[2024-03-11] MEDS: AMOXICILLIN/CLAVULANATE K 875-125 MG TAB 1 TABLET PO ×2 (08:37→20:21)
[2024-03-11] MEDS: CALCITONIN NASAL 200 UNITS/SPRAY 3.7 ML BOTTLE 1 SPRAY NASAL (08:38)
[2024-03-11] MEDS: FLUTICASONE PROPIONATE 0.05% NA SPR 16 GM BTL (*BKC) 1 SPRAY NASAL ×2 (08:38→20:22)
[2024-03-11] MEDS: TAMSULOSIN HCL 0.4 MG CAPSULE PO (08:38)
[2024-03-11] MEDS: FOLIC ACID 1 MG TABLET PO (08:38)
[2024-03-11] MEDS: CYANOCOBALAMIN 250 MCG TABLET PO (08:38)
--- NOTE | 2024-03-11 15:33 | P.PNIM_ITS ---
Progress Note: A&P Assessment and Plan (1) Sepsis: Qualifiers: Sepsis type: sepsis due to unspecified organism Sepsis acute organ dysfunction status: unspecified Qualified Code(s): A41.9 - Sepsis, unspecified organism Code(s): A41.9 - Sepsis, unspecified organism Status: Resolved Assessment and Plan: * Patient started on IV vancomycin and Cefepime for pneumonia * Blood cultures with NGTD * Lactic acid ordered * NS bolus 1 L now and maintenance fluids at 100 ml per hour. If lactic is positive will complete resuscitation with 30 ml/kg * UA and culture pending * Low suspicion for C diff however he just completed antibiotics and he reports diarrhea. Patient has history of C diff infection. C diff pending. * No documented fever but patient reports chills, blood pressure 116/49, white count 4.3, with known pneumonia (2) Pneumonia: Qualifiers: Laterality: bilateral Lung location: unspecified part of lung Pneumonia type: due to unspecified organism Qualified Code(s): J18.9 - Pneumonia, unspecified organism Code(s): J18.9 - Pneumonia, unspecified organism Status: Acute Assessment and Plan: CT chest shows a new ground-glass opacity in left upper lobe and right upper lobe consistent with pneumonia. He has a stable right small pleural effusion with pleural thickening and worsened pulmonary nodules and bone lesions consistent with metastatic disease * Blood cultures were ordered in the emergency room prior to antibiotics----no growth to date * In the ED patient received Rocephin and azithromycin. However he recently failed treatment with Levaquin. Given his metastatic disease and recent treatment failure will broaden to cefepime and vancomycin. * Sputum culture has been ordered---pending * Duo nebs scheduled q.6, budesonide b.i.d * Adding steroids 40 mg PO daily * CTA negative for PE * Mucinex b.i.d. * Incentive spirometry and pep therapy 03/11/24: * BC still with NGTD * Sputum Cx with Gram stain showing many WBCs and few epithelials and no organism growth, service support representative of the lower respiratory tract. No organism. * Continue Duonebs * Continue steroids * Continue Mucinex, IS and Pep therapy * Check walk study tomorrow * Repeat x-ray in the AM (3) COPD (chronic obstructive pulmonary disease): Code(s): J44.9 - Chronic obstructive pulmonary disease, unspecified Status: Chronic Assessment and Plan: Chronically uses 3 L nasal cannula as needed however over the last few days has required daily use. * DuoNeb scheduled, budesonide b.i.d. * Continue home inhaler * And steroids if wheezing occurs. 03/11/24: * See Plan for #1 * Pt on baseline supplemental oxygen at this time. (4) Adenocarcinoma, lung: Qualifiers: Laterality: right Qualified Code(s): C34.91 - Malignant neoplasm of unspecified part of right bronchus or lung Code(s): C34.90 - Malignant neoplasm of unspecified part of unspecified bronchus or lung Status: Chronic Assessment and Plan: Patient follows with Dr. Baez. He has a follow-up appointment on 03/26. 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 He was receiving Keytruda however insurance is no longer covering. He goes on 03/[address] Baez about starting chemotherapy. * Implanted MediPort * Monitor ANC, may need neutropenic precaution 03/11/24: * ANC 4.9. * Keep upcoming appointment with Dr. Baez * Patient has new nodules to left upper and lower lungs suggesting numerous metastatic deposits. He has been updated to these findings. (5) Anemia: Code(s): D64.9 - Anemia, unspecified Status: Acute Assessment and Plan: Patient has iron deficiency anemia which is compounded with NSCL adenocarcinoma metastatic cancer * Hgb was 6.7 g/dl * Repeat CBC shows persistent anemia * S/p 2 units pRBC * Continue iron supplements * Trend H/H * Transfuse less than 7 g/dl * No overt signs of bleeding 03/11/24: * Hgb this AM stable at 8.9 * Continue to trend and transfuse if needed. Plan Plan for discharge 03/12. Repeat x-ray in the AM. Walking o2 study tomorrow at discharge. Patient reports that he needs a concentrator. Subjective Date/time seen: 03/11/24 15:33 Interval history: No acute events overnight. He still feels poorly today and is not wanting to discharge today. Plan for discharge tomorrow. Review of Systems Review of Systems: All systems reviewed & are unremarkable except as noted in HPI and below Exam Narrative: General: appears comfortable, in no acute distress Respiratory: breathing is unlabored with even chest rise/fall, lungs are clear without wheezing, rhonchi, and crackles Cardiovascular: Rate and rhythm regular, normal s1s2, no murmur Abdomen: Soft, round, non-tender, active bowel sounds Extremities: No cyanosis, edema, clubbing. Pulses 2/2 Neuro: A&O x 4 Skin: Warm, dry, intact. Incisions x 2 to right lower and mid back s/p nerve stimulator placement. Incisions are clean, dry, and intact with Dermabond. No s/s of infection. Objective Data Vital Signs Vital Signs: Vital Signs - 24 hr 03/10/24 20:02 03/10/24 20:06 03/10/24 20:06 Temperature Pulse Rate 79 76 76 Respiratory Rate 18 18 Blood Pressure Pulse Oximetry 98 Oxygen Delivery Nasal Cannula Oxygen Flow Rate 3 Fraction of Inspired Oxygen 03/10/24 20:31 03/10/24 20:00 03/11/24 02:31 Temperature 97.7 F Pulse Rate 79 83 Respiratory Rate 18 20 Blood Pressure 136/72 Pulse Oximetry 99 99 Oxygen Delivery Nasal Cannula Oxygen Flow Rate 3 Fraction of Inspired Oxygen 03/11/24 02:36 03/10/24 20:13 03/11/24 05:32 Temperature 97.5 F L Pulse Rate 88 80 73 Respiratory Rate 20 18 20 Blood Pressure 129/69 Pulse Oximetry 100 Oxygen Delivery Oxygen Flow Rate Fraction of Inspired Oxygen 03/11/24 07:00 03/11/24 07:00 03/11/24 07:15 Temperature Pulse Rate 78 78 82 Respiratory Rate 18 18 18 Blood Pressure Pulse Oximetry 98 Oxygen Delivery Nasal Cannula Oxygen Flow Rate 3 Fraction of Inspired Oxygen 03/11/24 08:00 03/11/24 08:37 03/11/24 13:00 Temperature Pulse Rate 82 68 Respiratory Rate 16 Blood Pressure Pulse Oximetry 98 Oxygen Delivery Nasal Cannula Oxygen Flow Rate 2 Fraction of Inspired Oxygen 03/11/24 13:10 03/11/24 14:00 Temperature 97.5 F L Pulse Rate 73 75 Respiratory Rate 18 14 Blood Pressure 142/69 H Pulse Oximetry 100 Oxygen Delivery Oxygen Flow Rate Fraction of Inspired Oxygen Intake/Output Intake/Output: Intake & Output 03/08/24 03/09/24 03/10/24 03/11/24 23:59 23:59 23:59 23:59 Intake Total 4642 5270 1570 1160 Output Total 725 Balance 4642 6198 1570 1160 Meds/Results Medications: Active Medications Generic Name Dose Route Start Last Admin Trade Name Freq PRN Reason Stop Dose Admin Acetaminophen 500 mg 03/07/24 20:45 03/09/24 11:32 Acetaminophen 500 Mg Tablet PO 500 mg Q6H PRN Administration Pain (Scale Score 1-3) Hydrocodone Bitart/Acetaminophen 1 tab 03/07/24 20:45 03/10/24 05:54 Hydrocodone/Acetaminophen (*Crx) 5-325 Mg Tablet PO 1 tab Q8H PRN Administration Pain, Moderate Albuterol 2 puff 03/07/24 20:45 Albuterol Sulfate (*Sp) Aerosol 1 Puff INHALATION Q6H PRN Shortness Of Breath Or Wheezin Albuterol/Ipratropium 3 ml 03/07/24 20:00 03/11/24 13:00 Ipratropium 0.5 Mg/Albuterol Sulfate 2.5 Mg Ampul.Neb 3 Ml INHALATION 3 ml Q6HRT JESSICA Administration Amoxicillin/Clavulanate Potassium 1 tablet 03/10/24 19:00 03/11/24 08:37 Amoxicillin/Clavulanate K 875-125 Mg Tab PO 03/13/24 21:01 1 tablet Q12HR JESSICA Administration Budesonide 0.5 mg 03/07/24 20:00 03/11/24 06:58 Budesonide Respule Neb 0.5 Mg/2 Ml Amp INHALATION 0.5 mg Q12HRT JESSICA Administration Calcitonin [place] 1 spray 03/08/24 09:00 03/11/24 08:38 Calcitonin Nasal 200 Units/[place] 3.7 Ml Bottle NASAL 1 spray DAILY JESSICA Administration Cyanocobalamin 250 mcg 03/08/24 09:00 03/11/24 08:38 Cyanocobalamin 250 Mcg Tablet PO 250 mcg DAILY JESSICA Administration Cyclobenzaprine HCl 10 mg 03/09/24 10:12 03/11/24 01:43 Cyclobenzaprine Hcl 10 Mg Tablet PO 10 mg Q8H PRN Administration Muscle Spasm Ergocalciferol 50,000 units 03/17/24 09:00 Ergocalciferol 50,000 Units Capsule PO Mo@0900 JESSICA Fentanyl 12 mcg 03/07/24 22:45 03/10/24 09:00 Fentanyl (*Crx) 12 Mcg Patch TRANSDERM 12 mcg Q72HR JESSICA Administration Ferrous Sulfate 325 mg 03/08/24 09:00 03/11/24 08:37 Ferrous Sulfate [address] PO 325 mg DAILY JESSICA Administration Fluticasone Propionate 1 spray 03/08/24 21:00 03/11/24 08:38 Fluticasone Propionate 0.05% Na Spr 16 Gm Btl (*Bkc) NASAL 1 spray Q12HR JESSICA Administration Folic Acid 1 mg 03/08/24 09:00 03/11/24 08:38 Folic Acid 1 Mg Tablet PO 1 mg DAILY JESSICA Administration Furosemide 40 mg 03/07/24 20:45 03/07/24 21:42 Furosemide 40 Mg Tablet PO 40 mg DAILY PRN Administration SOB, edema Guaifenesin 1,200 mg 03/07/24 21:00 03/11/24 08:37 Guaifenesin 12 Hr 600 Mg Tabcr PO 1,200 mg Q12HR JESSICA Administration Heparin Sodium (Beef Lung) 50 units 03/08/24 09:00 03/11/24 08:36 Heparin Flush 50 Units/5 Ml Syringe IV PUSH 50 units QAM JESSICA Administration Heparin Sodium (Beef Lung) 50 units 03/08/24 08:48 Heparin Flush 50 Units/5 Ml Syringe IV PUSH PRN PRN after intermittent infusion Heparin Sodium (Beef Lung) 50 units 03/08/24 08:48 Heparin Flush 50 Units/5 Ml Syringe IV PUSH PRN PRN after blood draws Heparin Sodium (Porcine) 500 units 03/08/24 08:48 Heparin Sodium Lock Flush 500 Units/5 Ml Syringe IV PUSH PRN PRN see comments below Lorazepam 0.5 mg 03/07/24 20:45 03/10/24 05:54 Lorazepam (*Crx) 0.5 Mg Tablet PO 0.5 mg Q8H PRN Administration Anxiety Megestrol Acetate 20 mg 03/08/24 12:20 03/11/24 08:37 Megestrol Acetate (*Chemo) 20 Mg Tablet PO 20 mg QAM JESSICA Administration Menthol/Methyl Salicylate 1 applic 03/09/24 10:13 Menthol 10% / Methyl Salicylate 15% 57 Gm Tube TOPICAL BID PRN Muscle/Joint Pain Metoprolol Tartrate 12.5 mg 03/07/24 21:00 03/11/24 08:37 Metoprolol Tartrate 12.5 Mg Tablet PO 12.5 mg Q12HR JESSICA Administration Montelukast Sodium 10 mg 03/07/24 21:00 03/10/24 20:02 Montelukast Sodium 10 Mg Tablet PO 10 mg HS JESSICA Administration Naloxone HCl 0.1 mg 03/07/24 16:03 Naloxone Hcl 0.4 Mg/Ml Vial IV PUSH Q5MIN PRN Opioid Reversal Ondansetron HCl 8 mg 03/07/24 21:00 03/11/24 12:59 Ondansetron Hcl Odt 4 Mg Tablet PO 8 mg QID JESSICA Administration Oxycodone HCl 5 mg 03/07/24 20:45 03/10/24 12:06 Oxycodone Hcl (*Crx) 5 Mg Tab Ir PO 5 mg Q6H PRN Administration BREAKTHROUGH PAIN Oxycodone HCl 40 mg 03/08/24 09:00 03/11/24 08:37 Oxycodone Hcl (*Crx) 20 Mg Tab Sr 12hr PO 40 mg Q12H JESSICA Administration Pantoprazole Sodium 40 mg 03/07/24 21:00 03/11/24 08:37 Pantoprazole 40 Mg Tablet PO 40 mg BID JESSICA Administration Prednisone 40 mg 03/09/24 10:50 03/11/24 08:37 Prednisone 20 Mg Tablet PO 40 mg DAILY@0800 JESSICA Administration Pregabalin 75 mg 03/07/24 21:00 03/11/24 08:37 Pregabalin (*Crx) 75 Mg Capsule PO 75 mg Q12HR JESSICA Administration Rivaroxaban 20 mg 03/07/24 21:00 03/10/24 17:21 Rivaroxaban 20 Mg Tablet PO 20 mg DAILY@1700 JESSICA Administration Fluticasone/Salmeterol 2 puff 03/08/24 08:00 03/11/24 06:59 Fluticasone/Salmeterol 230-21 Mcg Inhaler 1 Puff INHALATION 2 puff Q12HRT JESSICA Administration Sodium Chloride 10 ml 03/08/24 14:00 03/11/24 12:59 Central Line Flush IV PUSH 10 ml Q8HR JESISCA Administration Tamsulosin HCl 0.4 mg 03/08/24 09:00 03/11/24 08:38 Tamsulosin Hcl 0.4 Mg Capsule PO 0.4 mg DAILY JESSICA Administration Tizanidine HCl 4 mg 03/07/24 20:45 03/09/24 08:15 Tizanidine Hcl 4 Mg Tablet PO 4 mg TID PRN Administration Muscle Spasm Triamcinolone Acetonide 1 applic 03/07/24 20:45 Triamcinolone Acet 0.1% Cream 15 Gm Tube TOPICAL QID PRN psioriasis Radiology Results: ITS Impressions Chest X-Ray 03/07/24 07:16 Impression: Small right pleural effusion. Stable right upper lobe consolidation which could reflect posttreatment change. Correlate clinically for pneumonia. Stable left sided Mediport. Chest CT 03/07/24 13:32 IMPRESSION: 1. New groundglass opacities in left upper lobe and right lower lobe, consistent with pneumonia. 2. Stable radiation pneumonitis in perihilar right lung. 3. Stable small right pleural effusion with pleural thickening. 4. Worsened pulmonary nodules and bone lesions, consistent with metastatic disease. Chest CTA 03/08/24 21:36 IMPRESSION: No evidence of pulmonary embolism is detected in the main pulmonary arteries, lobar or segmental pulmonary arteries; peripheral pulmonary arteries are obscured due to motion and limited contrast opacification Labs Labs: Laboratory Results - last 24 hr 03/11/24 06:07 WBC 7.6 RBC 3.62 L Hgb 8.9 L Hct 30.0 L MCV 82.9 MCH 24.6 L MCHC 29.7 L RDW 19.9 H Plt Count 247 MPV 9.7 Immature Gran % (Auto) 0.4 Neut % (Auto) 76.9 H Lymph % (Auto) 13.6 L [place] % (Auto) 8.6 H Eos % (Auto) 0.1 Baso % (Auto) 0.4 Lymph # (Auto) 1.04 [place] # (Auto) 0.7 H Eos # (Auto) 0.0 Baso # (Auto) 0.0 Abs Immat Gran (auto) 0.03 Absolute Neuts (auto) 5.9 Absolute Nucleated RBC 0.000 Nucleated RBC % 0.0 Platelet Estimate Adequate Hypochromasia 1+ Anisocytosis 2+ Schistocytes None seen Sodium 140 Potassium 3.5 Chloride 103 Carbon Dioxide 33 H Anion Gap 4 BUN 12 Creatinine 0.70 Estim Creat Clear Calc 103 Estimated GFR > 60 Glucose 121 H Calcium 8.7 Phosphorus 3.1 Magnesium 2.2 Total Bilirubin 0.3 AST 19 ALT 10 Alkaline Phosphatase 301 H Total Protein 6.0 L Albumin 3.1 L Quality VTE Prophylaxis VTE prophylaxis: pharmacologic ordered
[2024-03-11] MEDS: RIVAROXABAN 20 MG TABLET PO (16:22)
[2024-03-11] MEDS: LORazepam (*CRX) 0.5 MG TABLET PO (16:26)
[2024-03-11] MEDS: SENNA/DOCUSATE SODIUM TABLET 1 TAB PO (20:21)
[2024-03-11] MEDS: MONTELUKAST SODIUM 10 MG TABLET PO (20:21)
[2024-03-11] MEDS: HYDROcodone/acetaminophen (*CRX) 5-325 MG TABLET 1 TAB PO (22:04)
[2024-03-12] VITALS (9 sets, daily range): BP systolic 124; BP diastolic 76; PULSE 61–97; RESP 12–20; TEMP 36.6; O2SAT 86–95
--- NOTE | 2024-03-12 03:58 | PCRCNOTE ---
Out of administration time frame for 0200 breathing tx. Tx not given. See next scheduled tx at 0800.
[2024-03-12] MEDS: LORazepam (*CRX) 0.5 MG TABLET PO (04:31)
[2024-03-12] MEDS: HYDROcodone/acetaminophen (*CRX) 5-325 MG TABLET 1 TAB PO (05:38)
[2024-03-12] MEDS: CENTRAL LINE FLUSH 10 ML IV PUSH (06:13)
[2024-03-12 06:28] LABS: Basophils Percent Auto 0.4 % (0.2-1.2); Eosinophils Percent Auto 0.2 % (0-4.4); Hematocrit 30.6 % (42.0-52.0); Immature Granulocyte Absolute 0.04 K/mm3 (0.00-0.031); Immature Granulocyte Percent A 0.5 % (0-0.5); Lymphocytes Absolute Auto 1.35 K/mm3 (0.9-3.2); Lymphocytes Percent Auto 16.5 % (18.3-44.2); Mean Corpuscular HGB Conc 29.4 g/dl (32-36); Mean Corpuscular Hemoglobin 24.5 pg (26-34); Mean Corpuscular Volume 83.4 fl (80-100); Mean Platelet Volume 10.2 fl (7.4-10.4); Monocytes Absolute Auto 0.7 K/mm3 (0.1-0.6); Monocytes Percent Auto 8.7 % (2.6-8.5); Neutrophils Absolute Auto 6.1 K/mm3 (1.3-6.7); Neutrophils Percent Auto 73.7 % (45.5-73.1); Platelet Count Result 260 k/mm3 (150-375); Red Blood Count 3.67 M/mm3 (4.6-6.20); Red Cell Distribution Width 19.9 % (11.5-14.5); White Blood Count 8.2 K/mm3 (4.5-10.0)
[2024-03-12 07:00] LABS: Anisocytosis 2+; Hypochromasia 2+; Platelet Estimate Adequate (Adequate)
[2024-03-12 07:01] LABS: Schistocytes None Seen
[2024-03-12] MEDS: BUDESONIDE RESPULE NEB 0.5 MG/2 ML AMP INHALATION (08:15)
[2024-03-12] MEDS: IPRATROPIUM 0.5 MG/ALBUTEROL SULFATE 2.5 MG AMPUL.NEB 3 ML INHALATION (08:15)
[2024-03-12] MEDS: FLUTICASONE/SALMETEROL 230-21 MCG INHALER 1 PUFF 2 PUFF INHALATION (08:20)
[2024-03-12 08:22] LABS: Sodium 135 mmol/L (137-145)
[2024-03-12 08:34] LABS: Alanine Aminotransferase 10 U/L (6-50); Albumin Level 3.1 g/dL (3.5-5.1); Alkaline Phosphatase 266 U/L (38-126); Anion Gap 4 mmol/L (4-12); Aspartate Amino Transferase 25 U/L (17-59); Bilirubin,Total 0.2 mg/dL (0.2-1.3); Blood Urea Nitrogen 12 mg/dL (9-20); Calcium 8.2 mg/dL (8.4-10.2); Carbon Dioxide 34 mmol/L (22-30); Chloride 97 mmol/L (98-107); Estimated CRCL calculation 119 ml/min; Estimated Glomerular Filt Rate > 60; Glucose 114 mg/dL (65-110); Magnesium 2.2 mg/dL (1.6-2.3); Phosphorus 2.9 mg/dL (2.5-4.5); Potassium 3.4 mmol/L (3.4-5.0)
[2024-03-12] MEDS: MEGESTROL ACETATE (*CHEMO) 20 MG TABLET PO (09:13)
[2024-03-12] MEDS: AMOXICILLIN/CLAVULANATE K 875-125 MG TAB 1 TABLET PO (09:13)
[2024-03-12] MEDS: ONDANSETRON HCL ODT 4 MG TABLET 8 MG PO ×2 (09:14→12:33)
[2024-03-12] MEDS: guaiFENesin 12 HR 600 MG TABCR 1200 MG PO (09:14)
[2024-03-12] MEDS: CYANOCOBALAMIN 250 MCG TABLET PO (09:14)
[2024-03-12] MEDS: FOLIC ACID 1 MG TABLET PO (09:14)
[2024-03-12] MEDS: PREGABALIN (*CRX) 75 MG CAPSULE PO (09:14)
[2024-03-12] MEDS: predniSONE 20 MG TABLET 40 MG PO (09:14)
[2024-03-12] MEDS: TAMSULOSIN HCL 0.4 MG CAPSULE PO (09:14)
[2024-03-12] MEDS: oxyCODONE HCL (*CRX) 20 MG TAB SR 12HR 40 MG PO (09:14)
[2024-03-12] MEDS: FERROUS SULFATE 325 MG TABLET DR PO (09:14)
[2024-03-12] MEDS: METOPROLOL TARTRATE 12.5 MG TABLET PO (09:15)
[2024-03-12] MEDS: PANTOPRAZOLE 40 MG TABLET PO (09:15)
[2024-03-12] MEDS: oxyCODONE HCL (*CRX) 5 MG TAB IR PO ×2 (09:17→14:26)
--- NOTE | 2024-03-12 10:05 | HOMEO2EVAL ---
Evaluation was performed at [facility] Home Oxygen Evaluation RC: Home Oxygen (O2) Evaluation Start: 03/12/24 08:00 Freq: ONCE Status: Active Protocol: RPE Activity Type Activity Date Activity User E-sign Co-sign Detail Recorded Client Recorded Date Recorded By Document 03/12/24 09:30 [email or web address] [email or web address] 03/12/24 10:05 DJO Document 03/12/24 09:35 [email or web address] [email or web address] 03/12/24 10:05 DJO Document 03/12/24 09:40 [email or web address] [email or web address] 03/12/24 10:05 DJO Document 03/12/24 09:45 [email or web address] [email or web address] 03/12/24 10:05 DJO Document 03/12/24 10:00 [email or web address] [email or web address] 03/12/24 10:05 DJO 03/12/24 03/12/24 03/12/24 09:30 09:35 09:40 Home O2 Evaluation [Oxygen] -Test Phase Resting Exercise Exercise -Oxygen Delivery Room Air Room Air Nasal Cannula -Oxygen Flow Rate (L/min) 1 [Pulse Oximetry] -Pulse Oximetry (90-100 %) 94 86 L 88 L [Pulse Rate] -Pulse Rate (60-100 beats/min) 85 95 96 [Evaluation] -Activity Tolerance [Charges] -Evaluation Charges O2 Evaluation by Pulmonary 03/12/24 03/12/24 09:45 10:00 Home O2 Evaluation [Oxygen] -Test Phase Exercise Resting -Oxygen Delivery Nasal Cannula Room Air -Oxygen Flow Rate (L/min) 2 [Pulse Oximetry] -Pulse Oximetry (90-100 %) 91 94 [Pulse Rate] -Pulse Rate (60-100 beats/min) 97 80 [Evaluation] -Activity Tolerance Good [Charges] -Evaluation Charges
--- NOTE | 2024-03-12 12:08 | PC.NURSE ---
Pt wears a pain pump that is managed by [facility] palliative care. He receives 1199.3mcg morphine, 159.90mcg clonidine, and bupivicaine 1199.3mcg as a daily dose. He also has 6 PRN bolus doses of morphine 60mcg, clonidine 8mcg, and 600mcg bupivicaine.
--- NOTE | 2024-03-12 13:35 | P.DS_ITS ---
DS: Admitting Diagnosis Discharge Date 03/12/2024 Admitting Diagnosis Pneumonia DS: Discharge Diagnosis Discharge Diagnosis (1) Sepsis: Qualifiers: Sepsis acute organ dysfunction status: unspecified Sepsis type: sepsis due to unspecified organism Qualified Code(s): A41.9 - Sepsis, unspecified organism Code(s): A41.9 - Sepsis, unspecified organism Status: Resolved (2) Pneumonia: Qualifiers: Laterality: bilateral Lung location: unspecified part of lung Pneumonia type: due to unspecified organism Qualified Code(s): J18.9 - Pneumonia, unspecified organism Code(s): J18.9 - Pneumonia, unspecified organism Status: Acute (3) COPD (chronic obstructive pulmonary disease): Code(s): J44.9 - Chronic obstructive pulmonary disease, unspecified Status: Chronic (4) Adenocarcinoma, lung: Qualifiers: Laterality: right Qualified Code(s): C34.91 - Malignant neoplasm of unspecified part of right bronchus or lung Code(s): C34.90 - Malignant neoplasm of unspecified part of unspecified bronchus or lung Status: Chronic (5) Anemia: Code(s): D64.9 - Anemia, unspecified Status: Acute Plan Disposition: Patient was discharged to home currently on palliative care. 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 On evaluation in emergency department CT scan had shown right upper lobe consolidation consistent with pneumonia. Patient was then admitted to the medical unit and treated for sepsis without septic shock secondary to pneumonia and COPD exacerbation was initiated on vancomycin and cefepime for community-acquired pneumonia as well as started on methylprednisone IV push and DuoNebs. continue with treatment plan and patient had overall improvement weaned to his baseline supplemental oxygen. Patient follows with Dr. Baez. He has a follow-up appointment on 03/26. 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 He was receiving Keytruda however insurance is no longer covering. He goes on 03/[address] Baez about starting chemotherapy. patient returned to baseline and he was discharged home currently has palliative care. Status at Discharge Functional status at discharge: independent ambulation Overall status at discharge: patient is back to baseline Time Spent with Patient Time attestation: Total time spent providing and/or coordinating discharge services: Time spent: Greater than 30 minutes Exam Narrative: General: appears comfortable, in no acute distress Respiratory: breathing is unlabored with even chest rise/fall, lungs are clear without wheezing, rhonchi, and crackles Cardiovascular: Rate and rhythm regular, normal s1s2, no murmur Abdomen: Soft, round, non-tender, active bowel sounds Extremities: No cyanosis, edema, clubbing. Pulses 2/2 Neuro: A&O x 4 Skin: Warm, dry, intact. Incisions x 2 to right lower and mid back s/p nerve stimulator placement. Incisions are clean, dry, and intact with Dermabond. No s/s of infection. DS: Data Data Completed and Pending Labs on day of discharge: Labs from last 24 hours 03/12/24 06:12 WBC 8.2 RBC 3.67 L Hgb 9.0 L Hct 30.6 L MCV 83.4 MCH 24.5 L MCHC 29.4 L RDW 19.9 H Plt Count 260 MPV 10.2 Immature Gran % (Auto) 0.5 Neut % (Auto) 73.7 H Lymph % (Auto) 16.5 L [place] % (Auto) 8.7 H Eos % (Auto) 0.2 Baso % (Auto) 0.4 Lymph # (Auto) 1.35 [place] # (Auto) 0.7 H Eos # (Auto) 0.0 Baso # (Auto) 0.0 Abs Immat Gran (auto) 0.04 H Absolute Neuts (auto) 6.1 Absolute Nucleated RBC 0.000 Nucleated RBC % 0.0 Platelet Estimate Adequate Hypochromasia 2+ Anisocytosis 2+ Schistocytes None seen Sodium 135 L Potassium 3.4 Chloride 97 L Carbon Dioxide 34 H Anion Gap 4 BUN 12 Creatinine 0.60 L Estim Creat Clear Calc 119 Estimated GFR > 60 Glucose 114 H Calcium 8.2 L Phosphorus 2.9 Magnesium 2.2 Total Bilirubin 0.2 AST 25 ALT 10 Alkaline Phosphatase 266 H Total Protein 6.0 L Albumin 3.1 L Preliminary micro results at discharge 03/07/24 14:34 Blood Culture - Preliminary Blood 03/07/24 14:09 Blood Culture - Preliminary Blood Discharge Plan Discharge Attending physician on discharge: Nba Bryson Consulting providers: Kaykay Magaña; Charles Zhou; Edu Castro; Nohemy Simmons; Anjali Chan; Robert Jean-Baptiste V.; Enrique Stover; Roshan Jimenez Discharging Clinician: Edilma Lu Anticipated Discharge Date/Time: 03/12/24 13:11 Patient Disposition: Home, Self-Care Activity: may shower and as tolerated Diet: regular Discharge Instructions: You were treated for Pneumonia while hospitalized please review attached education and complete prescribe medication. How can you care for yourself at home? ? Keep track of any new symptoms or changes in your symptoms. ? Rest until you feel better. ? Be safe with medicines. Take your medicines exactly as prescribed. Call your doctor if you think you are having a problem with your medicine. ? Do not drive after taking a prescription pain medicine. ? Ensure to follow-up with primary care physician as indicated and provide updated medication list provided to you at discharge. When should you call for help? Call 911 anytime you think you may need emergency care. For example, call if: ? You passed out (lost consciousness). Call your doctor now or seek immediate medical care if: ? You have new symptoms like fever, difficulty breathing, Chest pain, vomiting, or rash. ? You have new or different pain. ? You are confused and are having trouble thinking clearly. ? Your symptoms are getting worse. Watch closely for changes in your health, and be sure to contact your doctor if: ? You do not get better as expected. Patient Instructions: Antibiotic Form, Rivaroxaban (By mouth), Using Oxygen at Home (DC), Bacterial Pneumonia (DC) Patient Language: Surinamese Stand Alone Forms: General Discharge Information Follow-up/Referrals: Shant,JEFFREY Marcelo [Primary Care Provider] - Keep Reg. Scheduled Appt. Jefferson Baez MD [Physician] - Keep Reg. Scheduled Appt. Discharge Medications: New montelukast [Singulair] 10 mg Tablet 10 mg PO HS Qty: 30 0RF guaifenesin [Mucus Relief ER] 600 mg Tablet Extended Release 12hr 1,200 mg PO Q12HR Qty: 10 0RF polyethylene glycol 3350 [Miralax] 17 gram Powder In Packet 17 g PO QAM Qty: 30 0RF sennosides-docusate sodium [Senokot-S] 8.6-50 mg Tablet 1 tab-cap PO HS Qty: 30 0RF prednisone 20 mg Tablet 40 mg PO DAILY@0800 Qty: 6 0RF amoxicillin-pot clavulanate 875-125 mg tablet 1 tablet PO Q12H Qty: 10 0RF Continued cholecalciferol (vitamin D3) 1,250 mcg (50,000 unit) capsule 1,250 mcg PO WEEKLY Patient Comments: PT TAKES ON SUNDAY Rx Instructions: Pt take on Sunday ferrous sulfate [iron] 325 mg (65 mg iron) Tablet 325 mg PO DAILY folic acid 1 mg tablet 1 mg PO DAILY oxycodone 40 mg tablet,oral only,ext.rel.12 hr 40 mg PO Q12H triamcinolone acetonide [Triderm] 0.1 % cream 1 applic TOPICAL QID PRN (Reason: psioriasis ) Rx Instructions: to face as needed for psorasis pregabalin [Lyrica] 225 mg capsule 75 mg PO Q12H tamsulosin 0.4 mg capsule 0.4 mg PO DAILY albuterol sulfate 90 mcg/actuation HFA aerosol inhaler 2.5 inh INHALATION Q6H PRN (Reason: Shortness Of Breath Or Wheezing) metoprolol tartrate 25 mg tablet 12.5 mg PO BID lorazepam 0.5 mg Tablet 0.5 mg PO Q8H PRN (Reason: Anxiety) Qty: 10 0RF tizanidine 4 mg tablet 4 mg PO TID PRN (Reason: Muscle Spasm) ondansetron HCl 8 mg tablet 8 mg PO QID omeprazole 40 mg capsule,delayed release(DR/EC) 40 mg PO DAILY Xarelto 20 mg Tablet 20 mg PO DAILY@1700 Qty: 30 0RF furosemide 40 mg tablet 40 mg PO DAILY PRN (Reason: SOB, edema ) hydrocodone-acetaminophen 5-325 mg tablet 1 tablet PO Q8H MDD 3 PRN (Reason: Pain, Moderate) acetaminophen 500 mg Tablet 500 mg PO Q6H PRN (Reason: Pain (Scale Score 1-3)) calcitonin (salmon) 200 unit/actuation spray,non-aerosol 200 unit intranasal (ALT) DAILY oxycodone 5 mg capsule 5 mg PO Q6H PRN (Reason: Breakthrough Pain) budesonide 0.5 mg/2 mL suspension for nebulization 0.5 mg inhalation BID naloxone [Narcan] 4 mg/actuation [place],Non-Aerosol 4 mg INTRANASAL PER PKG DIR Rx Instructions: 1 spray into 1 nostril if response is not achieved after 2 or 3 minutes give a second dose intranasal cyanocobalamin (vitamin B-12) 250 mcg PO DAILY fluticasone propion-salmeterol 2 puff inhalation Q12H fentanyl 12 mcg/hr patch 72 hour 12 mcg transdermal Q3D Date of admission: 03/07/24 15:37 Primary Care Provider: ShantCamden Admitting Provider: Mukund Grimes Attending physician on admission: Edilma Lu Condition: Stable Quality VTE Prophylaxis VTE prophylaxis: pharmacologic ordered -Patient's previous records reviewed on admission -ER notes reviewed in detail on admission -discussed all findings and current treatment plan with patient/Family/POA -Consultations reviewed for recommendations -Patient's disposition for safe discharge discussed with case folder Dictation performed by [email or web address] direct speech recognition software, therefore numerologist variants and typographical errors may occur. Hospitalist MIPS Heart Failure (Exclusion) Patient has history of Heart Transplant or Left Ventricular Assistive Device?: No IF YES, STOP HERE Heart Failure (Qualifier) Patient has current or prior documentation of LVEF less than or equal to 40%, or mod/servere depressed LVSF?: No IF NO, STOP HERE
[2024-03-12] MEDS: HEPARIN SODIUM LOCK FLUSH 500 UNITS/5 ML SYRINGE IV PUSH (14:10)
== END 2024-03-12 14:30 | disposition home or self-care (01) | DRG 194 ==
LOC: ANHED 09:29 → ANH3MEDSUR 14:36
PROVIDERS: Emergency Medicine; Nurse Practitioner Acute Care; Student in an Organized Health Care Education/Training Program; Admitting Provider Internal Medicine; Emergency Provider Physician Assistant; PCP Physician Assistant; Visit Provider Nurse Practitioner Family
DX: J18.9 Pneumonia, unspecified organism (principal); C34.91 Malignant neoplasm of unspecified part of right bronchus or lung; J44.0 Chronic obstructive pulmonary disease with (acute) lower respiratory infection; J44.1 Chronic obstructive pulmonary disease with (acute) exacerbation; C79.51 Secondary malignant neoplasm of bone; C77.9 Secondary and unspecified malignant neoplasm of lymph node, unspecified; I10 Essential (primary) hypertension; G89.4 Chronic pain syndrome; G62.9 Polyneuropathy, unspecified; N40.0 Benign prostatic hyperplasia without lower urinary tract symptoms; D50.9 Iron deficiency anemia, unspecified; I48.91 Unspecified atrial fibrillation; D63.0 Anemia in neoplastic disease; Z99.81 Dependence on supplemental oxygen; Z86.718 Personal history of other venous thrombosis and embolism; Z86.711 Personal history of pulmonary embolism; Z90.49 Acquired absence of other specified parts of digestive tract; Z98.1 Arthrodesis status; Z87.891 Personal history of nicotine dependence; Z20.822 Contact with and (suspected) exposure to COVID-19
CPT/HCPCS: 36415; 36430; 71045; 71046; 71250; 71275; 80053; 81003; 82607; 82746; 82948; 83540; 83550; 83605; 83735; 83880; 84100; 84145; 85014; 85018; 85025; 85610; 85730; 86850; 86900; 86901; 86920; 87040; 87070; 87205; 87637; 87641; 93005; 94618; 94640; 94667; 96374; 96375; 99285; A9270; G0378; J0456; J0692; J0696; J1642; J2919; J3370; J7030; J7050; J7512; P9016; Q9967

== ENCOUNTER 2024-03-25 04:32 | Inpatient (IN) | payer MEDICARE, MEDICAID, SELFPAY ==
[2024-03-25] VITALS (21 sets, daily range): BP systolic 112–145; BP diastolic 58–77; PULSE 68–116; RESP 12–20; TEMP 36.2–36.6; O2SAT 99–100; BMI 27.0
--- NOTE | ~2024-03-25 | CT_ITS ---
EXAMINATION: CT chest abdomen wo con DATE: 03/26/2024 11:09 INDICATION: Pneumonia. TECHNIQUE: Computed tomography (CT) of the chest and abdomen was performed without intravenous contra st. Automated exposure control and iterative reconstruction technique were employed. The dose-length product was 677.70 mGy-cm. COMPARISON: Chest CT 03/25/2024, 06/28/23 FINDINGS: CHEST CT: There are airspace opacities in perihilar lower right lung with volume loss and architectural distort ion, consistent with radiation fibrosis. There is mild atelectasis bilaterally. There are greater brynn n 20 scattered pulmonary nodules measuring up to 7 mm. There is a small right pleural effusion with p leural thickening. The heart size is normal. There are coronary artery calcifications. No pericardial effusion. There is a left internal jugular port with tip at superior cavoatrial junction. There are scattered sclerotic lesions of bone. ABDOMEN CT: There is diffuse hepatic steatosis. There are changes of cholecystectomy. The spleen, pancreas, adren al glands, and right kidney are normal. There is an 11 mm cyst in left kidney. There are no dilated l oops of bowel. There are no pathologically enlarged lymph nodes. There is no free intraperitoneal flu id. Epidural electrodes are noted. There is an intrathecal catheter. There are anterior and posterior fusion procedures from L4 to S1. There are scattered sclerotic lesions of bone. IMPRESSION: 1. Pulmonary nodules and bone lesions, consistent with metastatic disease. 2. Chronic small right pleural effusion with pleural thickening. 3. 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 Reviewed, dictated and finalized at location A.
--- NOTE | ~2024-03-25 | XR_ITS ---
Clinical Indication: Port confirmation Lateral view of the chest: Comparison: 03/25/2024 at 5:07 AM Findings: There is posterior upper lobe consolidation, presumably in the right side. Left-sided Medip ort in place. Cardiomediastinal silhouette is within normal limits. Bones and soft tissues are unrem arkable. Impression: Posterior upper lobe consolidation, likely in the right side. This could reflect neoplasm, treated di sease, pneumonia. Consider chest CT as indicated. Left-sided Mediport in place. Reviewed, dictated and finalized at location M. Impression: Posterior upper lobe consolidation, likely in the right side. This could reflec t neoplasm, treated disease, pneumonia. Consider chest CT as indicated. Left-sided Mediport in place.
--- NOTE | ~2024-03-25 | US_ITS ---
BILATERAL LOWER EXTREMITY VENOUS ULTRASOUND Ordering provider: Rob Andrea MD History: . r/o dvt . Comparison: The FINDINGS: RIGHT LOWER EXTREMITY VEINS: --COMMON FEMORAL: Patent and free of thrombus. Normal compressibility, phasic flow and augmentation. --PROXIMAL SUPERFICIAL FEMORAL: Patent and free of thrombus. Normal compressibility, phasic flow and augmentation. --DISTAL SUPERFICIAL FEMORAL: Patent and free of thrombus. Normal compressibility, phasic flow and au gmentation. --POPLITEAL: Patent and free of thrombus. Normal compressibility, phasic flow and augmentation. --POSTERIOR TIBIAL: Patent and free of thrombus. Normal compressibility, phasic flow and augmentation . LEFT LOWER EXTREMITY VEINS: --COMMON FEMORAL: Patent and free of thrombus. Normal compressibility, phasic flow and augmentation. --PROXIMAL SUPERFICIAL FEMORAL: Patent and free of thrombus. Normal compressibility, phasic flow and augmentation. --DISTAL SUPERFICIAL FEMORAL: Patent and free of thrombus. Normal compressibility, phasic flow and au gmentation. --POPLITEAL: Patent and free of thrombus. Normal compressibility, phasic flow and augmentation. --POSTERIOR TIBIAL: Patent and free of thrombus. Normal compressibility, phasic flow and augmentation . IMPRESSION: Negative bilateral lower extremity venous US. No deep vein thrombosis. Reviewed, dictated and finalized at location A.
--- NOTE | ~2024-03-25 | CT_ITS ---
Clinical Indication: Dyspnea, myeloma CT Scan of the Chest with Contrast: Technique: Contiguous sections were acquired throughout the chest after intravenous administration of 100 cc of Omnipaque 350. Dose reduction technique was used on this scan by utilizing automated expos ure control and iterative reconstruction technique. The dose-length product (DLP) was 307.52 mGy-cm. COMPARISON: 03/08/2024 Findings: There is no evidence of any significant mediastinal, hilar or axillary lymphadenopathy. There is no f illing defect in the pulmonary arterial tree to suggest pulmonary embolus. There is no evidence of ao rtic dissection or aneurysm. Small right pleural effusion present. No left pleural effusion. No pericardial effusion. There is stable consolidation the posterior right upper lobe extending to the right hilum with air br onchograms. There is linear atelectasis/distortion of the right lung base. There are multiple left ba silar and left lower lobe pulmonary nodules measuring up to 7 mm, essentially stable from prior exam. Several subcentimeter left upper lobe pulmonary nodules also essentially unchanged. Images through the upper abdomen reveal probable diffuse hepatic steatosis. Stable sclerotic osseous metastatic disease at the lower thoracic spine, upper lumbar spine. Impression: No evidence of pulmonary embolus, aortic dissection, or aortic aneurysm. Stable right upper lobe consolidation extending to the right hilum with air bronchograms. This could reflect pneumonia, neoplasm, and/or posttreatment change. Multiple pulmonary nodules, predominantly in the left lower lobe, stable from prior exam, compatible metastatic disease. Stable osseous metastatic disease. Small right pleural effusion. Diffuse hepatic steatosis. Reviewed, dictated and finalized at location . Impression: No evidence of pulmonary embolus, aortic dissection, or aortic aneurysm. Stable right upper lobe consolidation extending to the right hilum with air bro nchograms. This could reflect pneumonia, neoplasm, and/or posttreatment change. Multiple pulmonary nodules, predominantly in the left lower lobe, stable from p rior exam, compatible metastatic disease. Stable osseous metastatic disease. Small right pleural effusion. Diffuse hepatic steatosis.
--- NOTE | ~2024-03-25 | XR_ITS ---
Portable chest x-ray Comparison: 03/12/2024 Clinical History: Dyspnea, lung cancer Findings: Left-sided Mediport in place. Chronic small right pleural effusion present. There is vague hazy opacity in the right upper lobe, unchanged. Left lung remains clear. Cardiomediastinal silhoue tte is stable. Bones and soft tissues are unremarkable. Impression: No change from prior exam. Stable small right pleural effusion and vague hazy opacity in the right up per lobe, nonspecific. Stable Mediport. Reviewed, dictated and finalized at location M. Impression: No change from prior exam. Stable small right pleural effusion and vague hazy o pacity in the right upper lobe, nonspecific. Stable Mediport.
--- NOTE | 2024-03-25 04:42 | ECG_ITS ---
Test Date: 2024-03-25 04:50:54 Measurements Intervals [place] Rate: 106 P: -81 CA: 102 QRS: 68 QRSD: 85 T: 58 QT: 294 QTc: 390 Interpretive Statements SINUS TACHYCARDIA WITH FREQUENT VENTRICULAR PREMATURE COMPLEXES NONSPECIFIC T-WAVE ABNORMALITY ABNORMAL RHYTHM ECG Compared to ECG 03/07/2024 06:51:43 HEART RATE INCREASED AND PVCS ARE NOW SEEN Electronically Signed On 03-25-2024 07:34:11 CDT by Tan Milian M.D.
--- NOTE | 2024-03-25 04:55 | PC.NURSE ---
pt port unable to be accessed. Pt verbalized that there are normally dots that he can feel on his port. This rn and pt can not feel any dots on the port at this time.
--- NOTE | 2024-03-25 04:56 | PC.NURSE ---
unable to obtain port access. RN not seeing any veins to stick without an ultra sound iv potential.
[2024-03-25] MEDS: IPRATROPIUM 0.5 MG/ALBUTEROL SULFATE 2.5 MG AMPUL.NEB 3 ML INHALATION ×3 (04:58→20:25)
--- NOTE | 2024-03-25 05:11 | PC.NURSE ---
SANAZ Fritz at bedside to attempt ultrasound iv.
--- NOTE | 2024-03-25 05:19 | ED.GENADULT ---
HPI - General Adult General Chief complaint: Shortness of Breath/Dyspnea Stated complaint: dyspnea Time Seen by Provider: 03/25/24 04:40 History of Present Illness HPI narrative: patient is a 61-year-old gentleman presents emergency department chief complaint of shortness of breath. patient has history of non-small cell lung cancer status post radiation with recurrent metastatic disease to lymph nodes and bone currently undergoing chemotherapy patient has history of COPD atrial fibrillation and chronic pain patient reports this evening started getting more short of breath reports he was recently in the hospital for pneumonia Related Data Home Medications Medication Instructions Recorded Confirmed pregabalin 225 mg capsule (Lyrica) 75 mg PO Q12H 11/07/19 03/07/24 triamcinolone acetonide 0.1 % 1 applic topical QID PRN psioriasis 11/07/19 03/07/24 topical cream (Triderm) cholecalciferol (vitamin D3) 1,250 1,250 mcg PO WEEKLY 09/09/20 03/07/24 mcg (50,000 unit) capsule tamsulosin 0.4 mg capsule 0.4 mg PO DAILY 01/10/22 03/07/24 metoprolol tartrate 25 mg tablet 12.5 mg PO BID 04/22/22 03/07/24 albuterol sulfate 90 mcg/actuation 2.5 inh inhalation Q6H PRN 05/15/22 03/07/24 aerosol inhaler Shortness Of Breath Or Wheezing ferrous sulfate 325 mg (65 mg 325 mg PO DAILY 07/18/22 03/07/24 iron) tablet (iron) folic acid 1 mg tablet 1 mg PO DAILY 07/26/22 03/07/24 omeprazole 40 mg capsule,delayed 40 mg PO DAILY 08/03/22 03/07/24 release ondansetron HCl 8 mg tablet 8 mg PO QID NAUSEA 08/03/22 03/07/24 tizanidine 4 mg tablet 4 mg PO TID PRN Muscle Spasm 08/03/22 03/07/24 oxycodone 40 mg tablet,crush 40 mg PO Q12H 01/02/24 03/07/24 resistant,extended release 12 hr acetaminophen 500 mg tablet 500 mg PO Q6H PRN Pain (Scale 03/07/24 03/07/24 Score 1-3) budesonide 0.5 mg/2 mL suspension 0.5 mg inhalation BID 03/07/24 03/07/24 for nebulization calcitonin (salmon) 200 200 unit intranasal (ALT) DAILY 03/07/24 03/07/24 unit/actuation nasal spray cyanocobalamin (vitamin B-12) 250 mcg PO DAILY 03/07/24 03/07/24 fentanyl 12 mcg/hr transdermal 12 mcg transdermal Q3D 03/07/24 03/07/24 patch fluticasone propion-salmeterol 2 puff inhalation Q12H 03/07/24 03/07/24 furosemide 40 mg tablet 40 mg PO DAILY PRN SOB, edema 03/07/24 03/07/24 hydrocodone 5 mg-acetaminophen 325 1 tablet PO Q8H PRN Pain, Moderate 03/07/24 03/07/24 mg tablet naloxone 4 mg/actuation nasal 4 mg intranasal PER PKG DIR 03/07/24 03/07/24 spray (Narcan) oxycodone 5 mg capsule 5 mg PO Q6H PRN Breakthrough Pain 03/07/24 03/07/24 Allergies Allergy/AdvReac Type Severity Reaction Status Date / Time bee venom protein (honey bee) Allergy Unknown Swelling Verified 03/07/24 06:47 Review of Systems Review of Systems: A 10 system review of systems was completed on the patient and is negative except for what is stated in the HPI. Nursing and ancillary documentation was reviewed. [facility] Past Medical History Medical History Adenocarcinoma, lung Non-small cell carcinoma diagnosed June 2018. Follows with Dr. Baez and Dr. Cavazos; underwent radiation therapy from 12/05/2018 to 12/18/2018 and again in fall 2021 due to recurrence. Now with metastatic disease to lymph nodes and bone. He is currently receiving chemotherapy and has plans to start Keytruda on August 18. Anxiety Atrial fibrillation S/p cardiac ablation by Dr. 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 Followed by Dr. Parson at [facility] last seen around December 2018. Chronic anemia Chronic obstructive pulmonary disease uses 3 L prn Chronic pain syndrome Due to chronic lower back pain after complications with lower spinal fusion 2009. History of DVT (deep vein thrombosis) Right upper extremity DVT and bilateral PE December 2018 for which he took Xarelto for several
[2024-03-25 06:01] LABS: Basophils Percent Auto 0.3 % (0.2-1.2); Eosinophils Absolute Auto 0.1 K/mm3 (0-0.3); Eosinophils Percent Auto 1.3 % (0-4.4); Hematocrit 36.6 % (42.0-52.0); Hemoglobin 11.2 g/dL (14.0-18.0); Immature Granulocyte Absolute 0.03 K/mm3 (0.00-0.031); Immature Granulocyte Percent A 0.4 % (0-0.5); Lymphocytes Absolute Auto 1.09 K/mm3 (0.9-3.2); Lymphocytes Percent Auto 14.7 % (18.3-44.2); Mean Corpuscular HGB Conc 30.6 g/dl (32-36); Mean Corpuscular Hemoglobin 25.4 pg (26-34); Mean Platelet Volume 10.8 fl (7.4-10.4); Monocytes Absolute Auto 0.6 K/mm3 (0.1-0.6); Monocytes Percent Auto 8.5 % (2.6-8.5); Neutrophils Absolute Auto 5.5 K/mm3 (1.3-6.7); Neutrophils Percent Auto 74.8 % (45.5-73.1); Platelet Count Result 216 k/mm3 (150-375); Red Blood Count 4.41 M/mm3 (4.6-6.20); Red Cell Distribution Width 17.3 % (11.5-14.5); White Blood Count 7.4 K/mm3 (4.5-10.0)
[2024-03-25 06:08] LABS: Alanine Aminotransferase 14 U/L (6-50); Albumin Level 3.6 g/dL (3.5-5.1); Alkaline Phosphatase 303 U/L (38-126); Anion Gap 5 mmol/L (4-12); Aspartate Amino Transferase 28 U/L (17-59); Bilirubin,Total 0.6 mg/dL (0.2-1.3); Blood Urea Nitrogen 11 mg/dL (9-20); Calcium 8.7 mg/dL (8.4-10.2); Carbon Dioxide 30 mmol/L (22-30); Chloride 102 mmol/L (98-107); Estimated CRCL calculation 103 ml/min; Estimated Glomerular Filt Rate > 60; Glucose 133 mg/dL (65-110); Lactic Acid Reflex 1.6 mmol/L (0.7-2.0); Potassium 3.4 mmol/L (3.4-5.0); Sodium 137 mmol/L (137-145)
[2024-03-25 06:10] LABS: INR 1.6; Prothrombin Time 19.6 Seconds (11.1-14.7)
[2024-03-25 06:11] LABS: Magnesium 2.4 mg/dL (1.6-2.3)
[2024-03-25 06:12] LABS: Partial Thromboplastin Time 33.7 Seconds (22.3-36.8)
[2024-03-25 06:24] LABS: NT Pro B Type Natriuretic Pept 450 pg/mL (19.9-100); Troponin I < 0.012 ng/mL (0.000-0.034)
[2024-03-25 06:33] LABS: Influenza A QL RT-PCR Negative (Negative); Influenza B QL RT-PCR Negative (Negative); RSV RNA, RT-PCR Negative (Negative); SARS-CoV-2 RNA PCR Negative (Negative)
[2024-03-25 06:38] LABS: Procalcitonin 0.2 ng/mL
[2024-03-25] MEDS: CEFEPIME 2 GM/NS 50 ML 2 GM/50 ML BAG IVPB (06:39)
[2024-03-25] MEDS: IPRATROPIUM 0.5 MG/ALBUTEROL SULFATE 2.5 MG AMPUL.NEB 3 ML (06:42)
--- NOTE | 2024-03-25 07:35 | ADMGEN ---
This patient, Jn Garay, was admitted to Medical Room 258-. Patient/family oriented to hospital policies and general routines including ID bracelet, bed and alarms, visiting hours, pain management, procedures, bathroom and other care routines, personal items, smoking policy, room service/diet, and visiting hours. Information on how to activate the Rapid Response Team has been discussed. Patient/Family are encouraged to report perceived risks to care and to ask questions if they do not understand what they are told or what they should do.
[2024-03-25] MEDS: VANCOMYCIN 1,250 MG/NS 250 ML 1,250 MG/250 ML BAG 166.67 MG IVPB (08:21)
[2024-03-25 09:08] LABS: Troponin I < 0.012 ng/mL (0.000-0.034)
[2024-03-25] MEDS: VANCOMYCIN 1,000 MG/NS 250 ML 1,000 MG/250 ML BAG 250 MG IVPB (09:51)
--- NOTE | 2024-03-25 13:55 | PM.IMHP ---
H&P: HPI History of Present Illness Date/Time: 03/25/24 13:55 Chief Complaint: SOB Narrative: 61-year-old gentleman presents emergency department chief complaint of shortness of breath. patient has history of non-small cell lung cancer status post radiation with recurrent metastatic disease to lymph nodes and bone currently undergoing chemotherapy. Patient has history of COPD atrial fibrillation and chronic pain patient reports this evening started getting more short of breath reports he was recently in the hospital for pneumonia. On admission ,Labs: WBC 7.4, H/H 11.2/36.6,Na 137,K 3.4 Chest CTA : No evidence of pulmonary embolus, aortic dissection, or aortic aneurysm.Stable right upper lobe consolidation extending to the right hilum with air bronchograms. This could reflect pneumonia, neoplasm, and/or posttreatment change.Multiple pulmonary nodules, predominantly in the left lower lobe, stable from prior exam, compatible metastatic disease.Stable osseous metastatic disease.Small right pleural effusion.Diffuse hepatic steatosis CXR: Posterior upper lobe consolidation, likely in the right side. This could reflect neoplasm, treated disease, pneumonia. Consider chest CT as indicated.Left-sided Mediport in place. EKG :SINUS TACHYCARDIA WITH FREQUENT VENTRICULAR PREMATURE COMPLEXES NONSPECIFIC T-WAVE ABNORMALITY Quad viral screen was negative. Blood cultures were obtained and are pending. Ordered LE US. The patient was admitted in this setting for further workup and evaluation of shortness of breath and treatment of presumed community-acquired pneumonia. Review of Systems Review of Systems: A 10 system review of systems was completed on the patient and is negative except for what is stated in the HPI. Nursing and ancillary documentation was reviewed. [facility] Past Medical History Medical History Adenocarcinoma, lung Non-small cell carcinoma diagnosed June 2018. Follows with Dr. Baez and Dr. Cavazos; underwent radiation therapy from 12/05/2018 to 12/18/2018 and again in fall 2021 due to recurrence. Now with metastatic disease to lymph nodes and bone. He is currently receiving chemotherapy and has plans to start Keytruda on August 18. Anxiety Atrial fibrillation S/p cardiac ablation by Dr. 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 Followed by Dr. Parson at [facility] last seen around December 2018. Chronic anemia Chronic obstructive pulmonary disease uses 3 L prn Chronic pain syndrome Due to chronic lower back pain after complications with lower spinal fusion 2009. History of DVT (deep vein thrombosis) Right upper extremity DVT and bilateral PE December 2018 for which he took Xarelto for several months. History of pulmonary embolism (12/2018) Hypertension Reports he is no longer on medications for such. Peripheral neuropathy Seasonal allergies Surgical History Surgical History History of appendectomy In the History of carpal tunnel release Left 2011 History of elbow surgery Left elbow ulnar neurolysis History of lumbar fusion Anterior and posterior L4-S1 fusion 2009 History of open heart surgery (~2017) Status post resection of atrial myxoma. Hx of cholecystectomy In the S/P TURP Family History Family History Father Acute myocardial infarction Pulmonary embolism Sibling Breast cancer Mother Family history of chronic obstructive pulmonary disease Social History Social History Social History: Mr. Garay lives with his ex- Edna in [place]. They have 2 children. 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 He denies significant alcohol use, drinks sociall
[2024-03-25] MEDS: TAMSULOSIN HCL 0.4 MG CAPSULE PO (15:23)
[2024-03-25] MEDS: fentaNYL (*CRX) 12 MCG PATCH TRANSDERM (15:23)
[2024-03-25 16:50] LABS: MRSA (PCR) NOT DETECTED (NOT DETECTE)
[2024-03-25] MEDS: RIVAROXABAN 20 MG TABLET PO (17:27)
[2024-03-25] MEDS: LORazepam (*CRX) 0.5 MG TABLET PO (17:27)
[2024-03-25] MEDS: CYCLOBENZAPRINE HCL 10 MG TABLET PO (17:27)
[2024-03-25] MEDS: PREGABALIN (*CRX) 75 MG CAPSULE 225 MG PO (17:27)
[2024-03-25] MEDS: METOPROLOL TARTRATE 12.5 MG TABLET PO (18:11)
[2024-03-25] MEDS: oxyCODONE HCL (*CRX) 5 MG TAB IR PO (18:11)
[2024-03-25] MEDS: BUDESONIDE RESPULE NEB 0.5 MG/2 ML AMP INHALATION (20:25)
[2024-03-25] MEDS: FLUTICASONE/SALMETEROL 230-21 MCG INHALER 1 PUFF 2 PUFF INHALATION (20:26)
[2024-03-25] MEDS: MONTELUKAST SODIUM 10 MG TABLET PO (20:43)
[2024-03-25] MEDS: guaiFENesin 12 HR 600 MG TABCR 1200 MG PO (20:43)
[2024-03-25] MEDS: oxyCODONE HCL (*CRX) 40 MG TAB SR 12HR PO (20:43)
[2024-03-25 20:44] LABS: Glucose Point of Care 123 mg/dl (65-105)
[2024-03-25] MEDS: PANTOPRAZOLE 40 MG TABLET PO (20:44)
[2024-03-26] VITALS (22 sets, daily range): BP systolic 105–106; BP diastolic 44–56; PULSE 77–108; RESP 14–20; TEMP 36.6–37.1; O2SAT 96–100
[2024-03-26] MEDS: IPRATROPIUM 0.5 MG/ALBUTEROL SULFATE 2.5 MG AMPUL.NEB 3 ML INHALATION ×4 (01:53→20:16)
[2024-03-26 06:23] LABS: Hematocrit 31.9 % (42.0-52.0); Hemoglobin 9.4 g/dL (14.0-18.0); Mean Corpuscular HGB Conc 29.5 g/dl (32-36); Mean Corpuscular Hemoglobin 24.6 pg (26-34); Mean Corpuscular Volume 83.5 fl (80-100); Mean Platelet Volume 10.1 fl (7.4-10.4); Platelet Count Result 195 k/mm3 (150-375); Red Blood Count 3.82 M/mm3 (4.6-6.20); Red Cell Distribution Width 17.4 % (11.5-14.5); White Blood Count 5.5 K/mm3 (4.5-10.0)
[2024-03-26 06:32] LABS: Alanine Aminotransferase 11 U/L (6-50); Albumin Level 3.4 g/dL (3.5-5.1); Alkaline Phosphatase 271 U/L (38-126); Anion Gap 5 mmol/L (4-12); Aspartate Amino Transferase 25 U/L (17-59); Bilirubin,Total 0.6 mg/dL (0.2-1.3); Blood Urea Nitrogen 8 mg/dL (9-20); Calcium 8.8 mg/dL (8.4-10.2); Carbon Dioxide 30 mmol/L (22-30); Chloride 103 mmol/L (98-107); Estimated CRCL calculation 103 ml/min; Estimated Glomerular Filt Rate > 60; Glucose 103 mg/dL (65-110); Potassium 3.5 mmol/L (3.4-5.0); Sodium 138 mmol/L (137-145)
[2024-03-26] MEDS: CEFEPIME 2 GM/NS 50 ML 2 GM/50 ML BAG IVPB ×2 (06:57→17:40)
[2024-03-26] MEDS: BUDESONIDE RESPULE NEB 0.5 MG/2 ML AMP INHALATION ×2 (07:14→20:16)
[2024-03-26] MEDS: FLUTICASONE/SALMETEROL 230-21 MCG INHALER 1 PUFF 2 PUFF INHALATION ×2 (07:15→20:16)
[2024-03-26] MEDS: CYCLOBENZAPRINE HCL 10 MG TABLET PO ×2 (08:26→17:40)
[2024-03-26] MEDS: AZITHROMYCIN 250 MG TABLET 500 MG PO (08:26)
[2024-03-26] MEDS: PREGABALIN (*CRX) 75 MG CAPSULE 225 MG PO ×2 (08:26→17:40)
[2024-03-26] MEDS: FERROUS SULFATE 325 MG TABLET DR PO (08:27)
[2024-03-26] MEDS: CYANOCOBALAMIN 1,000 MCG TABLET 2000 MCG PO (08:27)
[2024-03-26] MEDS: TAMSULOSIN HCL 0.4 MG CAPSULE PO (08:27)
[2024-03-26] MEDS: guaiFENesin 12 HR 600 MG TABCR 1200 MG PO ×2 (08:27→20:49)
[2024-03-26] MEDS: METOPROLOL TARTRATE 12.5 MG TABLET PO ×2 (08:27→20:49)
[2024-03-26] MEDS: CYANOCOBALAMIN 500 MCG TABLET PO (08:27)
[2024-03-26] MEDS: FOLIC ACID 1 MG TABLET PO (08:27)
[2024-03-26] MEDS: PANTOPRAZOLE 40 MG TABLET PO ×2 (08:27→20:49)
[2024-03-26] MEDS: SENNA/DOCUSATE SODIUM TABLET 1 TAB PO (08:27)
[2024-03-26] MEDS: LORazepam (*CRX) 0.5 MG TABLET PO ×2 (08:28→20:49)
[2024-03-26] MEDS: oxyCODONE HCL (*CRX) 40 MG TAB SR 12HR PO ×2 (08:28→20:49)
--- NOTE | 2024-03-26 13:10 | PM.CNPUL ---
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 He presented with complaints of shortness of breath and one episode of diaphoresis and generalized weakness. Despite being treated for a lower respiratory tract infection, chest imaging studies do not clearly show new infiltrates. A review of imaging over the past two years reveals right lung volume loss, along with right upper lobe consolidation and air bronchogram, consistent with radiation fibrosis. This pulmonary consolidation, along with volume loss and a small pleural effusion, has remained stable for several months according to chest CTs. The new finding is the presence of new lung nodules related to metastatic disease. The absence of leukocytosis and typical symptoms of a lower respiratory tract infection, such as cough and sputum production, do not suggest pneumonia. Viral PCR negative for all common viruses. MRSA screening also negative. Plan: I informed the patient and his that the recent chest imaging studies, including two chest CTs over the last two days, do not support a diagnosis of pneumonia. Therefore, I do not recommend antibiotics for respiratory infection at this time. I suggest continuing with his maintenance bronchodilator and using short-acting bronchodilators as needed. I will continue to follow up with the patient in collaboration with you. (2) Chronic pain syndrome: Code(s): G89.4 - Chronic pain syndrome Status: Chronic (3) Anxiety: Code(s): F41.9 - Anxiety disorder, unspecified Status: Acute (4) History of embolism: Code(s): Z86.718 - Personal history of other venous thrombosis and embolism Status: Acute (5) Paget's bone disease: Code(s): M88.9 - Osteitis deformans of unspecified bone Status: Acute (6) Abnormal chest CT: Code(s): R93.89 - Abnormal findings on diagnostic imaging of other specified body structures Status: Acute (7) Metastatic primary lung cancer: Code(s): C34.90 - Malignant neoplasm of unspecified part of unspecified bronchus or lung Status: Acute (8) Hypoxia: Code(s): R09.02 - Hypoxemia Status: Resolved (9) Radiation fibrosis: Status: Acute History of Present Illness History of Present Illness Consult date: 03/26/24 Chief complaint: Pneumonia/History of Lung Cancer Narrative: This 63-year-old male patient, with a history of adenocarcinoma post-radiation to the right lung, is currently undergoing chemotherapy for metastatic lung adenocarcinoma. He presented with a one-day history of shortness of breath. He is familiar to Pulmonary Services due to multiple hospitalizations over the years with similar symptoms. Initially diagnosed with stage IA (T1c N0 M0) non-small cell lung cancer in June 2018, he received SBRT in December 2018. In 2021 he additionally received radiation to right lung for lung cancer recurrence. Also, he was treated with Tagrisso, which was discontinued after a few months due to pneumonitis. The patient requires supplemental oxygen at approximately 2.5-3 liters per minute for chronic hypoxemic respiratory failure. A few days prior to admission, he experienced increasing shortness of breath without other respiratory symptoms such as cough, wheezing, worsening chest pain, fever, chills, or hemoptysis. On the day of admission, while getting out of the bathroom, he felt diaphoretic, weak, and experienced shortness of breath, though he
--- NOTE | 2024-03-26 13:54 | PM.IMPN ---
Progress Note: A&P Assessment and Plan (1) Secondary malignant neoplasm of bone: Code(s): C79.51 - Secondary malignant neoplasm of bone Status: Acute (2) Pneumonia: Code(s): J18.9 - Pneumonia, unspecified organism Status: Acute (3) COPD (chronic obstructive pulmonary disease): Code(s): J44.9 - Chronic obstructive pulmonary disease, unspecified Status: Chronic (4) Adenocarcinoma, lung: Qualifiers: Laterality: right Qualified Code(s): C34.91 - Malignant neoplasm of unspecified part of right bronchus or lung Code(s): C34.90 - Malignant neoplasm of unspecified part of unspecified bronchus or lung Status: Chronic (5) Atrial fibrillation: Code(s): I48.91 - Unspecified atrial fibrillation Status: Acute (6) Hypertension: Qualifiers: Hypertension type: essential hypertension Qualified Code(s): I10 - Essential (primary) hypertension Code(s): I10 - Essential (primary) hypertension Status: Acute (7) Chronic pain syndrome: Code(s): G89.4 - Chronic pain syndrome Status: Chronic Plan #PNA -Cont Levaquin and Cefepime -BC pending -CTA : No PE -Duo nebs scheduled q.6, budesonide b.i.d. -Oxygen at 3 L nasal cannula -Incentive spirometery #Adenocarcinoma, lung Non-small cell carcinoma diagnosed June 2018. Follows with Dr. Baez and Dr. Cavazos; underwent radiation therapy from 12/05/2018 to 12/18/2018 and again in fall 2021 due to recurrence. Now with metastatic disease to lymph nodes and bone. He is currently receiving chemotherapy and has plans to start Keytruda on August 18.Anxiety #Atrial fibrillation S/p cardiac ablation by Dr. Tom Oakley at [facility] prostatic hyperplasia #Cardiac myxoma Left atrial myxoma noted on echocardiogram February 2018. Followed by Dr. Parson at [facility] last seen around December 2018. Subjective Date/time seen: 03/26/24 13:54 Interval history: No acute events overnight. Patient was frustrated about being his port has been mishandled by ER nurse. Patient also wanted to see Dr. Baez. Today we consulted pulmonology due to the recurrent pneumonia. [facility] Nursery Assistant does not support the diagnosis of pneumonia after reviewing recent 2 CT scans. We will wait until tomorrow for the results of 24 hour blood culture and discontinue the antibiotic if necessary. Review of Systems Review of Systems: A 10 system review of systems was completed on the patient and is negative except for what is stated in the HPI. Nursing and ancillary documentation was reviewed. Exam Narrative: GENERAL: Well-appearing, well-nourished, and in no acute distress. HEAD: Normocephalic, atraumatic. EYES: PERRLA and EOMI. ENT: Nares clear, no rhinorrhea or epistaxis. Mucous membranes moist. NECK: Supple. CHEST: Clear to auscultation. No respiratory distress. HEART: Regular rate and rhythm. No murmur heard. Normal peripheral pulses. ABDOMEN: Soft, nontender, nondistended, normal active bowel sounds. EXTREMITIES: Normal range of motion. No edema. SKIN: Warm, dry, no rash. NEURO: No focal deficits. Alert and oriented x3. PSYCH: Normal mood and affect. Objective Data Vital Signs Vital Signs: Vital Signs - 24 hr 03/25/24 14:00 03/25/24 14:38 03/25/24 14:45 Temperature 97.2 F L Pulse Rate 92 97 99 Respiratory Rate 12 20 20 Blood Pressure 113/58 L Pulse Oximetry 100 Oxygen Delivery Oxygen Flow Rate Fraction of Inspired Oxygen 03/25/24 16:00 03/25/24 18:11 03/25/24 20:26 Temperature Pulse Rate 100 110 H Respiratory Rate Blood Pressure Pulse Oximetry 99 Oxygen Delivery Nasal Cannula Oxygen Flow Rate 2 Fraction of Inspired Oxygen 03/25/24 20:26 03/25/24 21:20 03/25/24 20:40 Temperature 97.1 F L Pulse Rate 77 81 77 Respiratory Rate 18 20 18 Blood Pressure 112/61 Pulse Oximetry 100 99 Oxygen Delivery Nasal Cannula Oxygen Flow
[2024-03-26] MEDS: RIVAROXABAN 20 MG TABLET PO (17:40)
--- NOTE | 2024-03-26 18:39 | PDONCCN ---
HPI - Date of Consult Date/Time: 03/26/24 18:39 Requesting Physician: Felix Theodore MD Primary Care Provider: Camden Bran, PA - Consult Narrative Reason for consult: Metastatic non-small cell lung cancer Narrative: Jn Garay is a 63 year old male with metastatic non-small cell lung cancer. Patient was last seen in the office on March 03. He recently developed progressive disease on Alimta and Keytruda with the last treatment in January 2024. Patient came into the hospital with shortness of breath and CTA chest showed no evidence of stable right upper lobe consolidation. There was possibility of pneumonia, neoplasm or post treatment changes. Multiple pulmonary nodules. He was complaining of some chills along with shortness of breath. Patient was admitted with diagnosis of pneumonia. Patient was started on cefepime and azithromycin. Labs showed hemoglobin of 9.4. He is complaining of some port side discomfort after attempt a port access by the ER staff. Review of Systems - Review of Systems All systems reviewed & are unremarkable except as noted in [facility] and [facility] Medical History: Medical History (Last Reviewed 03/25/24 @ 05:21 by Jose David Magana MD) Adenocarcinoma, lung Non-small cell carcinoma diagnosed June 2018. Follows with Dr. Baez and Dr. Cavazos; underwent radiation therapy from 12/05/2018 to 12/18/2018 and again in fall 2021 due to recurrence. Now with metastatic disease to lymph nodes and bone. He is currently receiving chemotherapy and has plans to start Keytruda on August 18. Anxiety Atrial fibrillation S/p cardiac ablation by Dr. 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 [address] Parson at [facility] last seen around December 2018. Chronic anemia Chronic obstructive pulmonary disease uses 3 L prn Chronic pain syndrome Due to chronic lower back pain after complications with lower spinal fusion 2009. History of DVT (deep vein thrombosis) Right upper extremity DVT and bilateral PE December 2018 for which he took Xarelto for several months. History of pulmonary embolism Onset Date: 12/2018 Hypertension Reports he is no longer on medications for such. Peripheral neuropathy Seasonal allergies Surgical History: Surgical History (Last Reviewed 03/25/24 @ 05:21 by Jose David Magana MD) History of appendectomy In the History of carpal tunnel release Left 2011 History of elbow surgery Left elbow ulnar neurolysis History of lumbar fusion Anterior and posterior L4-S1 fusion 2010 History of open heart surgery Onset Date: ~2018 Status post resection of atrial myxoma. Hx of cholecystectomy In the S/P TURP Family History: Family History (Last Reviewed 03/25/24 @ 07:01 by Karley Martell RN) Father Acute myocardial infarction Pulmonary embolism Sibling Breast cancer Mother Family history of chronic obstructive pulmonary disease - Social History Social History: Social History (Last Reviewed 03/25/24 @ 05:21 by Jose David Magana MD) Alcohol Use: Alcohol intake: never Substance Use: Substance use: never Substance use type: does not use Others: Spiritual care concerns: No Living Arrangements: Living arrangements: with family Oppucation/Education: Occupation/Education: unemployed Smoking Status: Smoking status: Former smoker Second hand tobacco smoke exposure: Yes Approximate Smoking End Date: 2018 Smoking Pack-years: Smoking packs per day: 2 Smoking cigarettes per day: 40.0 Years smoked: 40 Smoking pack-years: 80.00 Social Determinants of Health: Do You Feel Safe in your Home?: Yes Has the Lack of Transportation Kept You From Medical Appointments or From Getting Medications?: No Within the Past 12 Months, Were You Worried Whether Your Food
[2024-03-26 20:33] LABS: Iron 28 ug/dL (49-181)
[2024-03-26] MEDS: MONTELUKAST SODIUM 10 MG TABLET PO (20:49)
[2024-03-26 20:51] LABS: Percent Iron Saturation 12 % (20-50)
[2024-03-26 21:20] LABS: Folic Acid > 20.0 ng/mL (2.76->20); Vitamin B12 > 1000.0 pg/mL (239-931)
[2024-03-27] VITALS (20 sets, daily range): BP systolic 99–117; BP diastolic 53–57; PULSE 64–107; RESP 18–20; TEMP 36.8–37.1; O2SAT 97–100
[2024-03-27] MEDS: IPRATROPIUM 0.5 MG/ALBUTEROL SULFATE 2.5 MG AMPUL.NEB 3 ML INHALATION ×4 (02:22→20:19)
--- NOTE | 2024-03-27 03:46 | PCRCNOTE ---
This patient repeatedly keeps turning his O2 up to 3L (which he wears prn @ home). Last night this RT decreased his liter flow to 2L due to satting 99% on 3L with hx of COPD. RT rechecked pt. for 0200 updraft treatment and pt was on 3L again. RN told this RT patient was decreased to 1L around midnight.
[2024-03-27] MEDS: CEFEPIME 2 GM/NS 50 ML 2 GM/50 ML BAG IVPB (05:37)
[2024-03-27] MEDS: FLUTICASONE/SALMETEROL 230-21 MCG INHALER 1 PUFF 2 PUFF INHALATION ×2 (07:54→20:19)
[2024-03-27] MEDS: BUDESONIDE RESPULE NEB 0.5 MG/2 ML AMP INHALATION ×2 (07:55→20:19)
[2024-03-27] MEDS: CYCLOBENZAPRINE HCL 10 MG TABLET PO ×3 (09:16→16:36)
[2024-03-27] MEDS: METOPROLOL TARTRATE 12.5 MG TABLET PO ×2 (09:16→20:33)
[2024-03-27] MEDS: AZITHROMYCIN 250 MG TABLET 500 MG PO (09:18)
[2024-03-27] MEDS: FOLIC ACID 1 MG TABLET PO (09:18)
[2024-03-27] MEDS: PANTOPRAZOLE 40 MG TABLET PO ×2 (09:18→20:33)
[2024-03-27] MEDS: oxyCODONE HCL (*CRX) 40 MG TAB SR 12HR PO ×2 (09:18→20:33)
[2024-03-27] MEDS: guaiFENesin 12 HR 600 MG TABCR 1200 MG PO ×2 (09:19→20:32)
[2024-03-27] MEDS: CYANOCOBALAMIN 1,000 MCG TABLET 2000 MCG PO (09:19)
[2024-03-27] MEDS: SENNA/DOCUSATE SODIUM TABLET 1 TAB PO (09:19)
[2024-03-27] MEDS: PREGABALIN (*CRX) 75 MG CAPSULE 225 MG PO ×2 (09:20→16:36)
[2024-03-27] MEDS: FERROUS SULFATE 325 MG TABLET DR PO (09:20)
[2024-03-27] MEDS: TAMSULOSIN HCL 0.4 MG CAPSULE PO (09:20)
[2024-03-27] MEDS: CYANOCOBALAMIN 500 MCG TABLET PO (09:21)
[2024-03-27] MEDS: LORazepam (*CRX) 0.5 MG TABLET PO ×2 (09:26→20:37)
[2024-03-27] MEDS: levoFLOXacin 750 MG TABLET PO (13:36)
[2024-03-27] MEDS: CENTRAL LINE FLUSH 10 ML IV PUSH ×2 (13:37→20:33)
[2024-03-27] MEDS: RIVAROXABAN 20 MG TABLET PO (16:36)
--- NOTE | 2024-03-27 18:54 | PM.IMPN ---
Progress Note: A&P Assessment and Plan (1) Secondary malignant neoplasm of bone: Code(s): C79.51 - Secondary malignant neoplasm of bone Status: Acute (2) Pneumonia: Code(s): J18.9 - Pneumonia, unspecified organism Status: Acute (3) COPD (chronic obstructive pulmonary disease): Code(s): J44.9 - Chronic obstructive pulmonary disease, unspecified Status: Chronic (4) Adenocarcinoma, lung: Qualifiers: Laterality: right Qualified Code(s): C34.91 - Malignant neoplasm of unspecified part of right bronchus or lung Code(s): C34.90 - Malignant neoplasm of unspecified part of unspecified bronchus or lung Status: Chronic (5) Atrial fibrillation: Code(s): I48.91 - Unspecified atrial fibrillation Status: Acute (6) Hypertension: Qualifiers: Hypertension type: essential hypertension Qualified Code(s): I10 - Essential (primary) hypertension Code(s): I10 - Essential (primary) hypertension Status: Acute (7) Chronic pain syndrome: Code(s): G89.4 - Chronic pain syndrome Status: Chronic Plan #PNA -Cont Levaquin -BC pending -CTA : No PE -Duo nebs scheduled q.6, budesonide b.i.d. -Oxygen at 3 L nasal cannula -Incentive spirometery #Adenocarcinoma, lung Non-small cell carcinoma diagnosed June 2018. Follows with Dr. Baez and Dr. Cavazos; underwent radiation therapy from 12/05/2018 to 12/18/2018 and again in fall 2021 due to recurrence. Now with metastatic disease to lymph nodes and bone. He is currently receiving chemotherapy and has plans to start Keytruda on August 18.Anxiety #Atrial fibrillation S/p cardiac ablation by Dr. 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 Followed by Dr. Parson at [facility] last seen around December 2018. Subjective Date/time seen: 03/27/24 18:54 Interval history: No acute events were reported. Chemo port is functioning well. Home oxygen evaluation tomorrow and possible discharge Review of Systems Review of Systems: A 10 system review of systems was completed on the patient and is negative except for what is stated in the HPI. Nursing and ancillary documentation was reviewed. Exam Narrative: GENERAL: Well-appearing, well-nourished, and in no acute distress. HEAD: Normocephalic, atraumatic. EYES: PERRLA and EOMI. ENT: Nares clear, no rhinorrhea or epistaxis. Mucous membranes moist. NECK: Supple. CHEST: Clear to auscultation. No respiratory distress. HEART: Regular rate and rhythm. No murmur heard. Normal peripheral pulses. ABDOMEN: Soft, nontender, nondistended, normal active bowel sounds. EXTREMITIES: Normal range of motion. No edema. SKIN: Warm, dry, no rash. NEURO: No focal deficits. Alert and oriented x3. PSYCH: Normal mood and affect. Objective Data Vital Signs Vital Signs: Vital Signs - 24 hr 03/26/24 20:16 03/26/24 20:20 03/26/24 20:33 Temperature Pulse Rate 92 92 89 Respiratory Rate 18 18 Blood Pressure Pulse Oximetry 99 Oxygen Delivery Nasal Cannula Oxygen Flow Rate 3 Fraction of Inspired Oxygen 03/26/24 20:49 03/26/24 20:50 03/26/24 22:00 Temperature 98.7 F Pulse Rate 82 82 93 Respiratory Rate 18 18 Blood Pressure 106/44 L Pulse Oximetry 99 100 Oxygen Delivery Nasal Cannula Oxygen Flow Rate 1 Fraction of Inspired Oxygen 36 03/26/24 20:00 03/27/24 00:04 03/27/24 02:22 Temperature Pulse Rate 97 88 85 Respiratory Rate 18 Blood Pressure Pulse Oximetry Oxygen Delivery Oxygen Flow Rate Fraction of Inspired Oxygen 03/27/24 02:22 03/27/24 02:30 03/27/24 04:03 Temperature Pulse Rate 85 88 82 Respiratory Rate 18 Blood Pressure Pulse Oximetry 99 Oxygen Delivery Nasal Cannula Oxygen Flow Rate 3 Fraction of Inspired Oxygen 03/27/24 06:00 03/27/24 07:57 03/27/24 07:57 Tem
[2024-03-27] MEDS: MONTELUKAST SODIUM 10 MG TABLET PO (20:33)
[2024-03-28] VITALS (14 sets, daily range): BP systolic 120; BP diastolic 71; PULSE 92–114; RESP 18–20; TEMP 37.1; O2SAT 87–100
[2024-03-28] MEDS: IPRATROPIUM 0.5 MG/ALBUTEROL SULFATE 2.5 MG AMPUL.NEB 3 ML INHALATION ×2 (02:49→07:57)
[2024-03-28 06:10] LABS: Hematocrit 29.8 % (42.0-52.0); Hemoglobin 9.1 g/dL (14.0-18.0); Mean Corpuscular HGB Conc 30.5 g/dl (32-36); Mean Corpuscular Hemoglobin 25.3 pg (26-34); Mean Platelet Volume 10.5 fl (7.4-10.4); Platelet Count Result 184 k/mm3 (150-375); Red Blood Count 3.59 M/mm3 (4.6-6.20); Red Cell Distribution Width 17.2 % (11.5-14.5)
[2024-03-28] MEDS: CENTRAL LINE FLUSH 10 ML IV PUSH ×2 (06:16→13:07)
[2024-03-28 06:20] LABS: Alanine Aminotransferase 9 U/L (6-50); Albumin Level 3.3 g/dL (3.5-5.1); Alkaline Phosphatase 280 U/L (38-126); Anion Gap 2 mmol/L (4-12); Aspartate Amino Transferase 29 U/L (17-59); Bilirubin,Total 0.5 mg/dL (0.2-1.3); Blood Urea Nitrogen 11 mg/dL (9-20); Calcium 8.4 mg/dL (8.4-10.2); Carbon Dioxide 34 mmol/L (22-30); Chloride 99 mmol/L (98-107); Estimated CRCL calculation 91 ml/min; Estimated Glomerular Filt Rate > 60; Glucose 116 mg/dL (65-110); Potassium 3.7 mmol/L (3.4-5.0); Sodium 135 mmol/L (137-145)
[2024-03-28] MEDS: FLUTICASONE/SALMETEROL 230-21 MCG INHALER 1 PUFF 2 PUFF INHALATION (07:57)
[2024-03-28] MEDS: BUDESONIDE RESPULE NEB 0.5 MG/2 ML AMP INHALATION (07:57)
[2024-03-28] MEDS: CYANOCOBALAMIN 1,000 MCG TABLET 2000 MCG PO (08:32)
[2024-03-28] MEDS: guaiFENesin 12 HR 600 MG TABCR 1200 MG PO (08:32)
[2024-03-28] MEDS: oxyCODONE HCL (*CRX) 40 MG TAB SR 12HR PO (08:32)
[2024-03-28] MEDS: CYANOCOBALAMIN 500 MCG TABLET PO (08:32)
[2024-03-28] MEDS: FERROUS SULFATE 325 MG TABLET DR PO (08:33)
[2024-03-28] MEDS: TAMSULOSIN HCL 0.4 MG CAPSULE PO (08:33)
[2024-03-28] MEDS: SENNA/DOCUSATE SODIUM TABLET 1 TAB PO (08:33)
[2024-03-28] MEDS: METOPROLOL TARTRATE 12.5 MG TABLET PO (08:33)
[2024-03-28] MEDS: FOLIC ACID 1 MG TABLET PO (08:33)
[2024-03-28] MEDS: PANTOPRAZOLE 40 MG TABLET PO (08:33)
[2024-03-28] MEDS: PREGABALIN (*CRX) 75 MG CAPSULE 225 MG PO (08:34)
[2024-03-28] MEDS: CYCLOBENZAPRINE HCL 10 MG TABLET PO ×2 (08:34→13:06)
[2024-03-28] MEDS: LORazepam (*CRX) 0.5 MG TABLET PO (08:37)
--- NOTE | 2024-03-28 11:02 | HOMEO2EVAL ---
Evaluation was performed at [facility] Home Oxygen Evaluation RC: Home Oxygen (O2) Evaluation Start: 03/27/24 15:59 Freq: ONCE Status: Active Protocol: RPE Activity Type Activity Date Activity User E-sign Co-sign Detail Recorded Client Recorded Date Recorded By Document 03/28/24 10:00 DJO [email or web address] 03/28/24 11:02 DJO Document 03/28/24 10:05 DJO [email or web address] 03/28/24 11:02 DJO Document 03/28/24 10:06 [email or web address] [email or web address] 03/28/24 11:02 DJO Document 03/28/24 10:10 [email or web address] [email or web address] 03/28/24 11:02 DJO Document 03/28/24 10:15 [email or web address] [email or web address] 03/28/24 11:02 DJO 03/28/24 03/28/24 03/28/24 10:00 10:05 10:06 Home O2 Evaluation [Oxygen] -Test Phase Resting Resting Resting -Oxygen Delivery Room Air Nasal Cannula Nasal Cannula -Oxygen Flow Rate (L/min) 1 2 [Pulse Oximetry] -Pulse Oximetry (90-100 %) 87 L 87 L 96 [Comments] -Home Oxygen Evaluation Comments [Charges] -Evaluation Charges O2 Evaluation by Pulmonary 03/28/24 03/28/24 10:10 10:15 Home O2 Evaluation [Oxygen] -Test Phase Exercise Resting -Oxygen Delivery Nasal Cannula Nasal Cannula -Oxygen Flow Rate (L/min) 2 2 [Pulse Oximetry] -Pulse Oximetry (90-100 %) 97 95 [Comments] -Home Oxygen Evaluation Comments PT REQUIRES 2 L AT REST AND WITH ACTIVITY [Charges] -Evaluation Charges
[2024-03-28] MEDS: FLUTICASONE PROPIONATE 0.05% NA SPR 16 GM BTL (*BKC) 2 SPRAY NASAL (11:12)
[2024-03-28] MEDS: oxyCODONE HCL (*CRX) 5 MG TAB IR PO (13:06)
[2024-03-28] MEDS: levoFLOXacin 750 MG TABLET PO (13:07)
[2024-03-28] MEDS: HEPARIN SODIUM LOCK FLUSH 500 UNITS/5 ML SYRINGE IV PUSH (13:07)
--- NOTE | 2024-03-28 14:18 | PM.DS ---
DS: Admitting Diagnosis Discharge Date 03/28/2024 Admitting Diagnosis Shortness of breath DS: Discharge Diagnosis Discharge Diagnosis (1) Secondary malignant neoplasm of bone: Code(s): C79.51 - Secondary malignant neoplasm of bone Status: Acute (2) Pneumonia: Code(s): J18.9 - Pneumonia, unspecified organism Status: Acute (3) COPD (chronic obstructive pulmonary disease): Code(s): J44.9 - Chronic obstructive pulmonary disease, unspecified Status: Chronic (4) Adenocarcinoma, lung: Qualifiers: Laterality: right Qualified Code(s): C34.91 - Malignant neoplasm of unspecified part of right bronchus or lung Code(s): C34.90 - Malignant neoplasm of unspecified part of unspecified bronchus or lung Status: Chronic (5) Atrial fibrillation: Code(s): I48.91 - Unspecified atrial fibrillation Status: Acute (6) Hypertension: Qualifiers: Hypertension type: essential hypertension Qualified Code(s): I10 - Essential (primary) hypertension Code(s): I10 - Essential (primary) hypertension Status: Acute (7) Chronic pain syndrome: Code(s): G89.4 - Chronic pain syndrome Status: Chronic Plan #PNA -Cont Levaquin -BC pending -CTA : No PE -Duo nebs scheduled q.6, budesonide b.i.d. -Oxygen at 3 L nasal cannula -Incentive spirometery #Adenocarcinoma, lung Non-small cell carcinoma diagnosed June 2018. Follows with Dr. Baez and Dr. Cavazos; underwent radiation therapy from 12/05/2018 to 12/18/2018 and again in fall 2021 due to recurrence. Now with metastatic disease to lymph nodes and bone. He is currently receiving chemotherapy and has plans to start Keytruda on August 18.Anxiety #Atrial fibrillation S/p cardiac ablation by Dr. 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 [address] Parson at [facility] last seen around December 2018. DS: Summary Hospital Course Hospital Course: 61-year-old gentleman presents emergency department chief complaint of shortness of breath. patient has history of non-small cell lung cancer status post radiation with recurrent metastatic disease to lymph nodes and bone currently undergoing chemotherapy. Patient has history of COPD atrial fibrillation and chronic pain patient reports this evening started getting more short of breath reports he was recently in the hospital for pneumonia. On admission ,Labs: WBC 7.4, H/H 11.2/36.6,Na 137,K 3.4 Chest CTA : No evidence of pulmonary embolus, aortic dissection, or aortic aneurysm.Stable right upper lobe consolidation extending to the right hilum with air bronchograms. This could reflect pneumonia, neoplasm, and/or posttreatment change.Multiple pulmonary nodules, predominantly in the left lower lobe, stable from prior exam, compatible metastatic disease.Stable osseous metastatic disease.Small right pleural effusion.Diffuse hepatic steatosis CXR: Posterior upper lobe consolidation, likely in the right side. This could reflect neoplasm, treated disease, pneumonia. Consider chest CT as indicated.Left-sided Mediport in place. EKG :SINUS TACHYCARDIA WITH FREQUENT VENTRICULAR PREMATURE COMPLEXES NONSPECIFIC T-WAVE ABNORMALITY Quad viral screen was negative. Blood cultures were obtained and are pending. Ordered LE US. During the course of hospitalization patient was frustrated about his chemo port has been messed up by the ER nurse. IR x ray technician evaluated the port and is working fine. The patient was admitted in this setting for further workup and evaluation of shortness of breath and treatment of presumed community-acquired pneumonia. Pulmonology was consulted for recurrent pneumonia. Public Health Aides Teacher reports the consolidation consistent with radiation fibrosis and and not pneumonia. Patient was treated with a course of antibiotics azithromycin and cefepime and then levaquin. He doesnt ne
== END 2024-03-28 13:50 | disposition hospice, home (50) | DRG 194 ==
LOC: ANHED 06:33 → ANH2MED 06:52
PROVIDERS: Internal Medicine Hematology & Oncology; Admitting Provider Internal Medicine; Emergency Provider Emergency Medicine; PCP Physician Assistant; Visit Provider General Practice
DX: J18.9 Pneumonia, unspecified organism (principal); C34.91 Malignant neoplasm of unspecified part of right bronchus or lung; C79.89 Secondary malignant neoplasm of other specified sites; C79.51 Secondary malignant neoplasm of bone; J44.0 Chronic obstructive pulmonary disease with (acute) lower respiratory infection; J96.11 Chronic respiratory failure with hypoxia; D63.0 Anemia in neoplastic disease; G89.4 Chronic pain syndrome; G62.9 Polyneuropathy, unspecified; I48.0 Paroxysmal atrial fibrillation; N40.0 Benign prostatic hyperplasia without lower urinary tract symptoms; Z79.01 Long term (current) use of anticoagulants; Z20.822 Contact with and (suspected) exposure to COVID-19; Z92.3 Personal history of irradiation; Z92.21 Personal history of antineoplastic chemotherapy; Z86.711 Personal history of pulmonary embolism; Z86.718 Personal history of other venous thrombosis and embolism; Z90.49 Acquired absence of other specified parts of digestive tract; Z98.1 Arthrodesis status; Z87.891 Personal history of nicotine dependence; Z99.81 Dependence on supplemental oxygen; Z86.018 Personal history of other benign neoplasm
CPT/HCPCS: 36415; 71045; 71250; 71275; 74150; 80053; 82607; 82728; 82746; 82948; 83540; 83550; 83605; 83735; 83880; 84145; 84484; 85025; 85027; 85610; 85730; 87040; 87637; 87641; 93005; 93970; 94618; 94640; 96365; 96366; 96367; 99285; A9270; G0378; J0692; J1642; J3370; Q9967

== ENCOUNTER 2024-05-05 14:42 | Outpatient (CLI) | payer MEDICARE, MEDICAID, SELFPAY ==
--- NOTE | ~2024-05-05 | XR_ITS ---
EXAMINATION: XR chest 2V DATE: 05/05/2024 15:17 INDICATION: Small cell cancer. TECHNIQUE: Frontal and lateral views of the chest were obtained on 3 radiographs. COMPARISON: Chest single view 03/25/2024, chest CT 03/26/2024 FINDINGS: There is volume loss of right hemithorax. There are airspace opacities in right perihilar r egion, consistent with radiation fibrosis. Again seen is peripheral mild atelectasis in right lower l alan zone. There are scattered small pulmonary nodules. There are small pleural effusions, right worse than left. No pneumothorax. The heart size is normal. Median sternotomy wires are noted. There is a left internal jugular port with tip in superior vena cava. Electrodes overlie the spine. Surgical cli ps in the right upper quadrant are likely from cholecystectomy. There are scattered sclerotic lesions of bone, consistent with metastatic disease. IMPRESSION: 1. Pulmonary nodules and bone lesions again seen, consistent with metastatic disease. 2. Small pleural effusions with interval worsening on the left. 3. 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 Reviewed, dictated and finalized at location A. [facility] [employer] IMPRESSION: 1. Pulmonary nodules and bone lesions again seen, consistent with metastatic di sease. 2. Small pleural effusions with interval worsening on the left. 3. 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
== END 2024-05-05 14:43 | disposition home or self-care (01) ==
LOC: ANHIMG 14:53
PROVIDERS: PCP Physician Assistant; Visit Provider Internal Medicine Hematology & Oncology
DX: J90 Pleural effusion, not elsewhere classified (principal); J70.1 Chronic and other pulmonary manifestations due to radiation; R91.8 Other nonspecific abnormal finding of lung field; C34.91 Malignant neoplasm of unspecified part of right bronchus or lung; J44.9 Chronic obstructive pulmonary disease, unspecified
CPT/HCPCS: 71046

== ENCOUNTER 2024-05-09 08:54 | Inpatient (IN) | payer MEDICARE, MEDICAID, SELFPAY ==
[2024-05-09] VITALS (17 sets, daily range): BP systolic 95–123; BP diastolic 55–87; PULSE 80–98; RESP 12–20; TEMP 36.3–36.8; O2SAT 94–100; BMI 27.8
--- NOTE | ~2024-05-09 | XR_ITS ---
EXAMINATION: XR chest 2V DATE: 05/09/2024 10:28 INDICATION: Upper respiratory infection with coarse lung zones TECHNIQUE: frontal and lateral views of the chest were obtained. COMPARISON: Chest radiograph dated 05/05/24 and 03/12/[address] dated 04/05/2024 FINDINGS: Persistent volume loss in the right hemithorax and unchanged consolidation in the posterior right mid to upper lung zone and at the posterior right lower lung zone, bladder likely due at least in part t o a small right pleural effusion. Lung remains clear. No pneumothorax or left-sided pleural effusion. Arch size is normal. Median sternotomy wires and mediastinal surgical clips are seen, likely from pr ior coronary artery bypass grafting. Left internal jugular central venous port catheter with distal t ip at the caudal superior vena cava. Spinal stimulator leads extend the length of the visualized lowe r cervical to upper lumbar central canal with lead tips terminating in the upper cervical spine on th e prior radiographs. There also appears. The tip of a intrathecal catheter projects over the posterio r central canal of the lower thoracic spine. IMPRESSION: 1. Persistent volume loss with chronic opacities in the posterior right mid to upper lung zone on CT. Correspond to atelectasis/scarring potentially related to radiation fibrosis for treatment of a repo rted prior lung cancer. 2. No recent interval change in a small right pleural effusion with associated compressive atelectasi s in the right lower lobe. 3. Difficult to absolutely exclude superimposed pneumonia however there are no new opacities to more specifically suggest this. Reviewed, dictated and finalized at location [facility]. [facility] IMPRESSION: 1. Persistent volume loss with chronic opacities in the posterior right mid to upper lung zone on CT. Correspond to atelectasis/scarring potentially related t o radiation fibrosis for treatment of a reported prior lung cancer. 2. No recent interval change in a small right pleural effusion with associated compressive atelectasis in the right lower lobe. 3. Difficult to absolutely exclude superimposed pneumonia however there are no new opacities to more specifically suggest this.
--- NOTE | ~2024-05-09 | CT_ITS ---
EXAMINATION: CTA chest PE protocol DATE: 05/09/2024 11:18 INDICATION: Increasing shortness of breath. Tachycardia. TECHNIQUE: Computed tomography (CT) pulmonary angiogram of the chest was performed with 100 mL Omnipa que-350 intravenous contrast. Additional 3D reconstructions utilizing coronal maximum intensity proje ction (MIP) were performed. Automated exposure control and iterative reconstruction technique were em ployed. The dose-length product was 350.24 mGy-cm. COMPARISON: 04/05/2024 and 03/25/2024 FINDINGS: No pulmonary embolism. Small bilateral pleural effusions. Increased size of a region of consolidation at the posterior right lower lobe with subtle surrounding tree-in-bud opacities suggestive of pneumo erin superimposed over chronic atelectasis/scarring. Similar there are new small centrilobular groundg lass opacities and tree-in-bud opacities in the right upper and middle lung at the periphery of an un changed region of consolidation with volume loss and architectural distortion at the posterior right upper lung likely related to radiation fibrosis for reported prior lung cancer. New small patchy titus on of groundglass opacity and a few small centrilobular nodules at the junction of the lingula and le ft upper lobe also suspicious for pneumonia. There are a few unchanged larger and more solid-appearin g subcentimeter pulmonary nodules most prominent in the left lower lobe suspicious for metastatic dis ease. No pulmonary edema or pneumothorax. Heart size is normal but shifted towards the right due to the volume loss in the right lung. No peric ardial effusion. Left internal jugular central venous port catheter with distal tip at the superior c avoatrial junction. Thoracic aorta is normal in caliber with no dissection. No pathologically enlarge d thoracic lymphadenopathy. Cholecystectomy clips at the gallbladder fossa. Diffuse hepatic steatosis . Median sternotomy. Scattered patchy sclerotic bone lesions most prominent in the lower thoracic spine consistent with metastatic disease. Distal tip of an intrathecal catheter likely for pain management in the posterior central canal at the level of T9. There are spinal stimulator leads entering the ce ntral canal at level of T12-L1 which extend through the thoracic and lower cervical central canal ext ending beyond the cephalad margin of the field of imaging. IMPRESSION: 1. No pulmonary embolism. 2. Bilateral scattered mild new lung disease, composed predominantly of tree-in-bud opacities and sma ll groundglass opacities suspicious for pneumonia 3. Unchanged small right and new small left pleural effusions. 4. A couple regions of chronic consolidation with volume loss in the right mid to upper lung and righ t lower lung likely atelectasis/scarring related to reported treated lung cancer. 5. Unchanged scattered subcentimeter solid pulmonary nodules and scattered patchy sclerotic bone lesi ons consistent with metastatic disease. Reviewed, dictated and finalized at location B. [facility] A[facility] IMPRESSION: 1. No pulmonary embolism. 2. Bilateral scattered mild new lung disease, composed predominantly of tree-in -bud opacities and small groundglass opacities suspicious for pneumonia 3. Unchanged small right and new small left pleural effusions. 4. A couple regions of chronic consolidation with volume loss in the right mid to upper lung and right lower lung likely atelectasis/scarring related to repor jamie treated lung cancer. 5. Unchanged scattered subcentimeter solid pulmonary nodules and scattered patc hy sclerotic bone lesions consistent with metastatic disease.
--- NOTE | 2024-05-09 09:48 | ECG_ITS ---
Test Date: 2024-05-09 10:44:17 Measurements Intervals [place] Rate: 85 P: 82 [place]: 158 QRS: 60 QRSD: 78 T: 56 QT: 365 QTc: 435 Interpretive Statements SINUS RHYTHM BASELINE ARTIFACT- I, II, III, AVR, AVL, AVF, V1-V6 NORMAL ECG Compared to ECG 03/25/2024 04:50:54 Sinus tachycardia no longer present HEART RATE HAS DECREASED Electronically Signed On 05-09-2024 10:53:03 MEDICATION NURSE by Charles Zhou D.O.
[2024-05-09 10:25] LABS: Hematocrit 30.8 % (42.0-52.0); Hemoglobin 9.1 g/dL (14.0-18.0); Mean Corpuscular HGB Conc 29.5 g/dl (32-36); Mean Corpuscular Hemoglobin 24.9 pg (26-34); Mean Corpuscular Volume 84.4 fl (80-100); Mean Platelet Volume 11.5 fl (7.4-10.4); Platelet Count Result 160 k/mm3 (150-375); Red Blood Count 3.65 M/mm3 (4.6-6.20); Red Cell Distribution Width 19.8 % (11.5-14.5)
[2024-05-09 10:36] LABS: INR 1.8; Prothrombin Time 21.3 Seconds (11.1-14.7)
[2024-05-09 10:38] LABS: Partial Thromboplastin Time 68.3 Seconds (22.3-36.8)
[2024-05-09 10:46] LABS: Lactic Acid Reflex 0.9 mmol/L (0.7-2.0)
[2024-05-09] MEDS: SODIUM CHLORIDE 0.9% IV 1,000 ML 500 ML IV CONT (10:47)
[2024-05-09 10:48] LABS: Alanine Aminotransferase 10 U/L (6-50); Albumin Level 3.2 g/dL (3.5-5.1); Alkaline Phosphatase 106 U/L (38-126); Anion Gap 5 mmol/L (4-12); Aspartate Amino Transferase 17 U/L (17-59); Bilirubin,Total 0.6 mg/dL (0.2-1.3); Blood Urea Nitrogen 8 mg/dL (9-20); CRP 8.5 mg/dL (<1.0); Calcium 7.2 mg/dL (8.4-10.2); Carbon Dioxide 25 mmol/L (22-30); Chloride 107 mmol/L (98-107); Estimated CRCL calculation 119 ml/min; Estimated Glomerular Filt Rate > 60; Glucose 113 mg/dL (65-110); Potassium 3.6 mmol/L (3.4-5.0); Sodium 137 mmol/L (137-145)
[2024-05-09 10:55] LABS: NT Pro B Type Natriuretic Pept 495 pg/mL (19.9-100)
[2024-05-09 10:57] LABS: Troponin I < 0.012 ng/mL (0.000-0.034); White Blood Count 1.5 K/mm3 (4.5-10.0)
[2024-05-09 11:03] LABS: Band Neutrophils Percent 1 % (0-6); Lymphocytes Absolute Manual 0.48 K/mm3 (1.1-4.5); Lymphocytes Percent Manual 32 % (18-44); Monocytes Absolute Manual 0.12 K/mm3 (0.1-0.90); Monocytes Percent Manual 8 % (3-9); Neutrophils Absolute Manual 0.84 K/mm3 (1.3-6.7); Neutrophils Percent Manual 55 % (46-73); Total Cells Counted 100
[2024-05-09 11:04] LABS: Atypical Lymphocytes Present; Basophils Absolute Manual 0.01 K/mm3 (0.0-0.1); Basophils Percent Manual 1 % (0-1); Eosinophils Absolute Manual 0.04 K/mm3 (0.02-0.50); Eosinophils Percent Manual 3 % (0-4); Platelet Estimate Adequate (Adequate); Schistocytes None Seen
[2024-05-09 11:05] LABS: Anisocytosis 1+; Hypochromasia 1+
[2024-05-09 11:06] LABS: Ovalocytes 1+
[2024-05-09] MEDS: AZITHROMYCIN 500 MG/NS 250 ML 500 MG/250 ML BAG 250 MG IVPB (11:26)
--- NOTE | 2024-05-09 11:36 | ED.EPISTAXIS ---
HPI - Epistaxis General Chief complaint: Epistaxis Stated complaint: nosebleed Time Seen by Provider: 05/09/24 08:57 History of Present Illness HPI Narrative: Patient is a 63-year-old male who presents to the ER with complaints epistaxis this morning and shortness of breath. He reports he has had an upper respiratory infection for the past 4 days. Patient reports he has a history of stage IV lung cancer and COPD so he wears 3 L oxygen nasal cannula at baseline. He is currently receiving chemotherapy and complains of multiple mouth sores. Pt has been using normal saline nasal spray to help keep his nostrils moistened when he wears oxygen. Patient reports his nose bleed started this morning after he blew his nose. He reports there were clots came out and it lasted for approximately 5 minutes. MD complaint: epistaxis Location: bilateral nostril Onset (ago): minute(s) (5) Duration: now resolved Context: other anticoagulant use Related Data Home Medications Medication Instructions Recorded Confirmed pregabalin 225 mg capsule (Lyrica) 225 mg PO BID 11/07/19 05/07/24 triamcinolone acetonide 0.1 % 1 applic topical QID PRN psioriasis 11/07/19 05/07/24 topical cream (Triderm) cholecalciferol (vitamin D3) 1,250 1,250 mcg PO WEEKLY 09/09/20 05/07/24 mcg (50,000 unit) capsule tamsulosin 0.4 mg capsule 0.4 mg PO DAILY 01/10/22 05/07/24 metoprolol tartrate 25 mg tablet 12.5 mg PO BID 04/22/22 05/07/24 albuterol sulfate 90 mcg/actuation 2 inh inhalation Q4H PRN Shortness 05/15/22 05/07/24 aerosol inhaler Of Breath Or Wheezing ferrous sulfate 325 mg (65 mg 325 mg PO DAILY 07/18/22 05/07/24 iron) tablet (iron) folic acid 1 mg tablet 1 mg PO DAILY 07/26/22 05/07/24 omeprazole 40 mg capsule,delayed 40 mg PO DAILY 08/03/22 05/07/24 release ondansetron HCl 8 mg tablet 8 mg PO QID PRN NAUSEA 08/03/22 05/07/24 oxycodone 40 mg tablet,crush 40 mg PO Q12H 01/02/24 05/07/24 resistant,extended release 12 hr acetaminophen 500 mg tablet 500 mg PO Q6H PRN Pain (Scale 03/07/24 05/07/24 Score 1-3) budesonide 0.5 mg/2 mL suspension 0.5 mg inhalation BID 03/07/24 05/07/24 for nebulization cyanocobalamin (vitamin B-12) 2,500 mcg PO DAILY 03/07/24 05/07/24 fentanyl 12 mcg/hr transdermal 12 mcg transdermal Q3D 03/07/24 05/07/24 patch fluticasone propion-salmeterol 2 puff inhalation Q12H 03/07/24 05/07/24 furosemide 40 mg tablet 40 mg PO DAILY PRN swelling 03/07/24 05/07/24 naloxone 4 mg/actuation nasal 4 mg intranasal PER PKG DIR 03/07/24 05/07/24 spray (Narcan) oxycodone 5 mg capsule 5 mg PO Q6H PRN Breakthrough Pain 03/07/24 05/07/24 cyclobenzaprine 10 mg tablet 10 mg PO TID 03/25/24 05/07/24 polyethylene glycol 3350 17 gram 17 g PO QAM PRN Constipation 03/25/24 05/07/24 oral powder packet (Miralax) sennosides 8.6 mg-docusate sodium 1 tab-cap PO DAILY 03/25/24 05/07/24 50 mg tablet (Senokot-S) Allergies Allergy/AdvReac Type Severity Reaction Status Date / Time bee venom protein (honey bee) Allergy Unknown Swelling Verified 05/07/24 10:33 Review of Systems Review of Systems: All systems reviewed & are unremarkable except as noted in HPI and below PMFSH Past Medical History Medical History Adenocarcinoma, lung Non-small cell carcinoma diagnosed June 2018. Follows with Dr. Baez and Dr. Cavazos; underwent radiation therapy from 12/05/2018 to 12/18/2018 and again in fall 2021 due to recurrence. Now with metastatic disease to lymph nodes and bone. He is currently receiving chemotherapy and has plans to start Keytruda on August 18. Anxiety Atrial fibrillation S/p cardiac ablation by Dr. 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 Followed by Dr. Parson at [facility] last seen around December 2018. Chronic anemia Chronic obstructive pulmonary disease uses 3 L prn Chronic pain syndrome Due to chronic lower back pain after complications with lower spinal fusion 2009. History of DVT (deep vein thrombosis) Right upper extremity DVT and bilateral PE December 2018 for which he took Xarelto for several months. History of pulmonary embolism (12/2018) Hypertension Reports he is no longer on medications for such. Peripheral neuropathy Seasonal allergies Surgical History Surgical History History of appendectomy In the History of carpal tunnel release Left 2011 History of elbow surgery Left elbow ulnar neurolysis History of lumbar fusion Anterior and posterior L4-S1 fusion 2009 History of open heart surgery (~2017) Status post resection of atrial myxoma. Hx of cholecystectomy In the S/P TURP Family History Family History Father Acute myocardial infarction Pulmonary embolism Sibling Breast cancer Mother Family history of chronic obstructive pulmonary disease Social History Social History Social History: Mr. Garay lives with his ex- Edna in [place]. They have 2 children. 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 He denies significant alcohol use, drinks socially. Smoked 2 packs per day of cigarettes x 40 years and quit 2017. Denies other substance use. Long-term opioid use due to chronic back pain. Ambulates without a cane or walker at home. He designates his ex- as his surrogate decision maker and he wishes to be a full code however, he states he would not want to be on a ventilator for long-term. Smoking packs per day: 2 Smoking cigarettes per day: 40.0 Years smoked: 40 Smoking pack-years: 80.00 Smoking status: Former smoker Second hand tobacco smoke exposure: Yes Alcohol intake: never Substance use: never Substance use type: does not use Do You Feel Safe in your Home?: Yes Lack of Transportation: No Lack of Food: Never True Current Housing: I Have Housing Concerned About Future Housing: No Difficulty Paying Gas/Electric Bills: No Difficulty Paying for Meds: No Currently Unemployed: No Education: Decline to Answer Difficulty w/ Childcare or Family Care: No Living arrangements: with family Occupation/Education: unemployed Spiritual care concerns: No Exam Narrative: GENERAL: Ill-appearing, well-nourished, mild acute distress d/t SOB. HEAD: Normocephalic, atraumatic. NECK: Supple. No adenopathy, no masses. RESPIRATORY: Airway patent, respirations labored. Coarse breath sounds, R worse than L, positive for wheezing, 3L NC @ baseline. CARDIOVASCULAR: Regular rate and rhythm without murmurs, rubs, or gallops. Peripheral pulses 2+ and equal bilaterally. Port in pt's R upper chest ABDOMINAL: Soft, nontender, nondistended, no hepatosplenomegaly. Normoactive BS. MUSCULOSKELETAL: Moves all extremities. Strength/ROM intact without gross deformities. SKIN: Warm, dry, pallor. No rashes. NEURO: A&O X3. Speech clear. Cranial nerves II-XII grossly intact. No ataxic movements. PSYCHIATRIC: Appropriate mood and flat affect. Normal interaction. Course Vital Signs Vital signs: Vital Signs Temperature 36.4 C 05/09/24 08:54 Pulse Rate 98 05/09/24 08:54 Respiratory Rate 13 05/09/24 08:54 Blood Pressure 117/61 05/09/24 08:54 Pulse Oximetry 99 05/09/24 08:54 Oxygen Delivery Nasal Cannula 05/09/24 08:54 Oxygen Flow Rate 3 05/09/24 08:54 Temperature 36.4 C 05/09/24 08:54 Pulse Rate 86 05/09/24 11:38 Respiratory Rate 16 05/09/24 11:38 Blood Pressure 111/76 05/09/24 11:38 Pulse Oximetry 100 05/09/24 11:38 Oxygen Delivery Nasal Cannula 05/09/24 08:54 Oxygen Flow Rate 3 05/09/24 08:54 MDM - Epistaxis MDM Narrative Medical decision making narrative: Patient is a 63-year-old male who presents to the ER with complaints epistaxis this morning and shortness of breath. He reports he has had an upper respiratory infection for the past 4 days. Patient reports he has a history of stage IV lung cancer and COPD so he wears 3 L oxygen nasal cannula at baseline. He is currently receiving chemotherapy and complains of multiple mouth sores. Pt has been using normal saline nasal spray to help keep his nostrils moistened when he wears oxygen. Patient reports his nose bleed started this morning after he blew his nose. He reports there were clots came out and it lasted for approximately 5 minutes. Labs Ordered: CBC, CMP, PTT, INR, CRP, Type and Screen, blood cultures, troponin, lactic acid, BNP Imaging Ordered: chest x-ray, CTA PE scan Results: Pt's CTA indicated 1. No pulmonary embolism. 2. Bilateral scattered mild new lung disease, composed predominantly of tree-in-bud opacities and small groundglass opacities suspicious for pneumonia 3. Unchanged small right and new small left pleural effusions. 4. A couple regions of chronic consolidation with volume loss in the right mid to upper lung and right lower lung likely atelectasis/scarring related to reported treated lung cancer. 5. Unchanged scattered subcentimeter solid pulmonary nodules and scattered patchy sclerotic bone lesions consistent with metastatic disease. Patient's CBC indicated white blood cell count of 1 her 5, RBC of 3.65, hemoglobin 9.1, hematocrit 30.8%. The PT of 21.3 seconds and APTT is 68.3 seconds. Patient's CMP indicated a BUN of 8, creatinine of 0.6, glucose of 113, calcium 7.2. Patient's CRP was 8.5. Diagnosis: Pneumonia, new malignant nodules in lungs Consults: oncology upon admission Disposition/Plan: Patient's Port-A-Cath was accessed by a nurse to obtain blood work and administer medications. Patient given ceftriaxone IV and azithromycin IV in the ER to treat his pneumonia. He was given half a L normal saline d/t initial concern for sepsis. He was given magic mouthwash to help treat his mouth sores. Patient denies need for pain medication. He was given a duoneb to help treat his wheezing. Results shared with patient's and his daughter. Plan to admit patient to hospital for pneumonia and shortness of breath. Patient and his verbalized understanding and are in agreement with plan. Differential Diagnosis Differential diagnosis: Likely other (pneumonia, COPD exacerbation, new pulmonary nodules, CHF) Lab Data Attestation: I reviewed the patient's lab results. 05/09/24 10:16 05/09/24 10:16 Labs: Lab Results 05/09/24 Range/Units 10:16 WBC 1.5 L* (4.5-10.0) K/mm3 RBC 3.65 L (4.6-6.20) M/mm3 Hgb 9.1 L (14.0-18.0) g/dL Hct 30.8 L (42.0-52.0) % MCV 84.4 (80-100) fl MCH 24.9 L (26-34) pg MCHC 29.5 L (32-36) g/dl RDW 19.8 H (11.5-14.5) % Plt Count 160 (150-375) k/mm3 MPV 11.5 H (7.4-10.4) fl Immature Gran % (Auto) Not Reportable Neut % (Auto) Not Reportable Lymph % (Auto) Not Reportable [place] % (Auto) Not Reportable Eos % (Auto) Not Reportable Baso % (Auto) Not Reportable Lymph # (Auto) Not Reportable [place] # (Auto) Not Reportable Eos # (Auto) Not Reportable Baso # (Auto) Not Reportable Abs Immat Gran (auto) Not Reportable Absolute Neuts (auto) Not Reportable Absolute Nucleated RBC Not Reportable Total Counted 100 Neutrophils % (Manual) 55 (46-73) % Band Neutrophils % 1 (0-6) % Lymphocytes % (Manual) 32 (18-44) % Monocytes % (Manual) 8 (3-9) % Eosinophils % (Manual) 3 (0-4) % Basophils % (Manual) 1 (0-1) % Nucleated RBC % Not Reportable Abs Neuts (Manual) 0.84 L (1.3-6.7) K/mm3 Abs Lymphs (Manual) 0.48 L (1.1-4.5) K/mm3 Abs Monocytes (Manual) 0.12 (0.1-0.90) K/mm3 Absolute Eos (Manual) 0.04 (0.02-0.50) K/mm3 Abs Basophils (Manual) 0.01 (0.0-0.1) K/mm3 Atypical Lymphocytes Present Platelet Estimate Adequate (Adequate) Hypochromasia 1+ Anisocytosis 1+ Ovalocytes 1+ Schistocytes None seen PT 21.3 H (11.1-14.7) Seconds INR 1.8 APTT 68.3 H (22.3-36.8) Seconds Sodium 137 (137-145) mmol/L Potassium 3.6 (3.4-5.0) mmol/L Chloride 107 (98-107) mmol/L Carbon Dioxide 25 (22-30) mmol/L Anion Gap 5 (4-12) mmol/L BUN 8 L (9-20) mg/dL Creatinine 0.60 L (0.7-1.3) mg/dL Estim Creat Clear Calc 119 ml/min Estimated GFR > 60 (59 - ) Glucose 113 H (65-110) mg/dL Lactic Acid 0.9 (0.7-2.0) mmol/L Calcium 7.2 L (8.4-10.2) mg/dL Total Bilirubin 0.6 (0.2-1.3) mg/dL AST 17 (17-59) U/L ALT 10 (6-50) U/L Alkaline Phosphatase 106 (38-126) U/L Troponin I < 0.012 (0.000-0.034) ng/mL C-Reactive Protein 8.5 H (<1.0) mg/dL NT-Pro-B Natriuret Pep 495 H (19.9-100) pg/mL Total Protein 6.0 L (6.3-8.2) g/dL Albumin 3.2 L (3.5-5.1) g/dL Blood Type A Positive Antibody Screen Negative Discharge Plan Discharge Clinical Impression: Pneumonia, Lung mass, Lung cancer Patient Disposition: Acute Care Hospital Condition: Guarded Prognosis Prescriptions: No Action cholecalciferol (vitamin D3) 1,250 mcg (50,000 unit) capsule 1,250 mcg PO WEEKLY Patient Comments: PT TAKES ON SUNDAY Rx Instructions: Pt take on Sunday ferrous sulfate [iron] 325 mg (65 mg iron) Tablet 325 mg PO DAILY folic acid 1 mg tablet 1 mg PO DAILY oxycodone 40 mg tablet,oral only,ext.rel.12 hr 40 mg PO Q12H triamcinolone acetonide [Triderm] 0.1 % cream 1 applic TOPICAL QID PRN (Reason: psioriasis ) Rx Instructions: to face as needed for psorasis pregabalin [Lyrica] 225 mg capsule 225 mg PO BID tamsulosin 0.4 mg capsule 0.4 mg PO DAILY albuterol sulfate 90 mcg/actuation HFA aerosol inhaler 2 inh INHALATION Q4H PRN (Reason: Shortness Of Breath Or Wheezing) metoprolol tartrate 25 mg tablet 12.5 mg PO BID lorazepam 0.5 mg Tablet 0.5 mg PO Q8H PRN (Reason: Anxiety) Qty: 10 0RF ondansetron HCl 8 mg tablet 8 mg PO QID PRN (Reason: NAUSEA) omeprazole 40 mg capsule,delayed release(DR/EC) 40 mg PO DAILY Xarelto 20 mg Tablet 20 mg PO DAILY@1700 Qty: 30 0RF furosemide 40 mg tablet 40 mg PO DAILY PRN (Reason: swelling) acetaminophen 500 mg Tablet 500 mg PO Q6H PRN (Reason: Pain (Scale Score 1-3)) oxycodone 5 mg capsule 5 mg PO Q6H PRN (Reason: Breakthrough Pain) budesonide 0.5 mg/2 mL suspension for nebulization 0.5 mg inhalation BID naloxone [Narcan] 4 mg/actuation [place],Non-Aerosol 4 mg INTRANASAL PER PKG DIR Rx Instructions: 1 spray into 1 nostril if response is not achieved after 2 or 3 minutes give a second dose intranasal cyanocobalamin (vitamin B-12) 2,500 mcg PO DAILY fluticasone propion-salmeterol 2 puff inhalation Q12H fentanyl 12 mcg/hr patch 72 hour 12 mcg transdermal Q3D montelukast [Singulair] 10 mg Tablet 10 mg PO HS Qty: 30 0RF guaifenesin [Mucus Relief ER] 600 mg Tablet Extended Release 12hr 1,200 mg PO Q12HR Qty: 10 0RF cyclobenzaprine 10 mg Tablet 10 mg PO TID polyethylene glycol 3350 [Miralax] 17 gram powder in packet 17 g PO QAM PRN (Reason: Constipation) sennosides-docusate sodium [Senokot-S] 8.6-50 mg tablet 1 tab-cap PO DAILY Follow-up/Referrals: Shant,JEFFREY Marcelo [Primary Care Provider] -
--- NOTE | 2024-05-09 12:40 | P.HP_ITS ---
H&P: HPI History of Present Illness Date/Time: 05/09/24 13:15 Chief Complaint: Nose bleed. 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 The patient provides the following history. He has not been feeling well for about 4 days with upper respiratory symptoms to include congestion and cough productive of light yellow phlegm. This morning he blew his nose and shortly thereafter his nose began to bleed quite heavily to the point where he was passing large clots. It lasted upwards of 5 minutes before he called 911 but resolved by the time he got to the ER. En route to the hospital he was administered a nebulizer treatment for audible wheezing and cough with some improvement. He denies fever, headache, sore throat, chest pain, pleuritic pain, nausea, vomiting, and diarrhea. Of note, he had a blood transfusion with his last chemotherapy and immunotherapy (docetaxel and ramucirumab) treatments 2 weeks ago. In the ED: SpO2 has been in the upper 90s to 100% on his usual 3 L. the remainder of his vital signs are stable. Labs were significant for WBC count of 1.5, hemoglobin 9.1, hematocrit 30.8%, platelet 160, PT 21.3, INR 1.8, PTT 60.3, BUN 8, creatinine 0.60, lactic acid 0.9, CRP 8.5, total protein 6.0, albumin 3.2. Chest CTA was negative for pulmonary embolism but did show findings suspicious for pneumonia and other unchanged findings. He was given azithromycin and ceftriaxone and is being admitted in this setting for further treatment. Review of Systems Review of Systems: 12 systems were reviewed and are negativ e except for as per HPI. [facility] Past Medical History Medical History (Updated 05/09/24 @ 14:47 by Traci Dawn PA-C) Adenocarcinoma, lung Non-small cell carcinoma diagnosed June 2018. Follows with Dr. Baez and Dr. Cavazos; underwent radiation therapy from 12/05/2018 to 12/18/2018 and again in fall 2021 due to recurrence. Now with metastatic disease to lymph nodes and bone. He is currently receiving chemotherapy and has plans to start Keytruda on August 18. Anxiety Atrial fibrillation s/p cardiac ablation by Dr. 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 Followed by Dr. Parson at [facility] last seen around December 2018. Chronic anemia Chronic anticoagulation Chronic obstructive pulmonary disease uses 3 L prn Chronic pain syndrome Due to chronic lower back pain after complications with lower spinal fusion 2009. Chronic respiratory failure with hypoxia, on home oxygen therapy History of DVT (deep vein thrombosis) Right upper extremity DVT and bilateral PE December 2018 for which he took Xarelto for several months. History of pulmonary embolism (12/2018) Hypertension Reports he is no longer on medications for such. Peripheral neuropathy Seasonal allergies Surgical History Surgical History (Updated 05/09/24 @ 14:36 by Traci Dawn PA-C) History of appendectomy In the History of carpal tunnel release Left 2010 History of cholecystectomy History of elbow surgery Left elbow ulnar neurolysis History of lumbar fusion Anterior and posterior L4-S1 fusion 2009 History of open heart surgery (~2017) Status post resection of atrial myxoma. History of transurethral resection of prostate Family History Family History Father Acute myocardial infarction Pulmonary embolism Sibling Breast cancer Mother Family history of chronic obstructive pulmonary disease Social History Social History Social History: Mr. Garay lives with his ex- Edna in [place]. They have 2 children. 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 He denies significant alcohol use, drinks socially. Smoked 2 packs per day of cigarettes x 40 years and quit Amadeo 2017. Denies other substance use. Long-term opioid use due to chronic back pain. Ambulates without a cane or walker at home. He designates his ex- as his surrogate decision maker and he wishes to be a full code however, he states he would not want to be on a ventilator for long-term. Smoking packs per day: 2 Smoking cigarettes per day: 40.0 Years smoked: 40 Smoking pack-years: 80.00 Smoking status: Former smoker Second hand tobacco smoke exposure: Yes Alcohol intake: never Substance use: never Substance use type: does not use Do You Feel Safe in your Home?: Yes Lack of Transportation: No Lack of Food: Never True Current Housing: I Have Housing Concerned About Future Housing: No Difficulty Paying Gas/Electric Bills: No Difficulty Paying for Meds: No Currently Unemployed: No Education: Decline to Answer Difficulty w/ Childcare or Family Care: No Living arrangements: with family Occupation/Education: unemployed Spiritual care concerns: No Meds Home Medications and Allergies Home Medications Medication Instructions Recorded Confirmed Type pregabalin 225 mg capsule (Lyrica) 225 mg PO BID 11/07/19 05/09/24 History triamcinolone acetonide 0.1 % 1 applic topical QID PRN psioriasis 11/07/19 05/09/24 History topical cream (Triderm) cholecalciferol (vitamin D3) 1,250 1,250 mcg PO WEEKLY 09/09/20 05/09/24 History mcg (50,000 unit) capsule tamsulosin 0.4 mg capsule 0.4 mg PO DAILY 01/10/22 05/09/24 History metoprolol tartrate 25 mg tablet 12.5 mg PO BID 04/22/22 05/09/24 History lorazepam 0.5 mg tablet 0.5 mg PO Q8H PRN Anxiety #10 tabs 04/26/22 05/09/24 Rx albuterol sulfate 90 mcg/actuation 2 inh inhalation Q4H PRN Shortness 05/15/22 05/09/24 History aerosol inhaler Of Breath Or Wheezing ferrous sulfate 325 mg (65 mg 325 mg PO DAILY 07/18/22 05/09/24 History iron) tablet (iron) folic acid 1 mg tablet 1 mg PO DAILY 07/26/22 05/09/24 History omeprazole 40 mg capsule,delayed 40 mg PO DAILY 08/03/22 05/09/24 History release ondansetron HCl 8 mg tablet 8 mg PO QID PRN NAUSEA 08/03/22 05/09/24 History rivaroxaban 20 mg tablet (Xarelto) 20 mg PO DAILY@1700 #30 tabs 08/04/22 05/09/24 Rx oxycodone 40 mg tablet,crush 40 mg PO Q12H 01/02/24 05/09/24 History resistant,extended release 12 hr acetaminophen 500 mg tablet 500 mg PO Q6H PRN Pain (Scale 03/07/24 05/09/24 History Score 1-3) budesonide 0.5 mg/2 mL suspension 0.5 mg inhalation BID 03/07/24 05/09/24 History for nebulization cyanocobalamin (vitamin B-12) 2,500 mcg PO DAILY 03/07/24 05/09/24 History fluticasone propion-salmeterol 2 puff inhalation Q12H 03/07/24 05/09/24 History furosemide 40 mg tablet 40 mg PO DAILY PRN swelling 03/07/24 05/09/24 History naloxone 4 mg/actuation nasal 4 mg intranasal PER PKG DIR 03/07/24 05/09/24 History spray (Narcan) oxycodone 5 mg capsule 5 mg PO Q6H PRN Breakthrough Pain 03/07/24 05/09/24 History guaifenesin 600 mg tablet, 1,200 mg PO Q12HR #10 tabs 03/12/24 05/09/24 Rx extended release 12 hr (Mucus Relief ER) sennosides 8.6 mg-docusate sodium 1 tab-cap PO DAILY 03/25/24 05/09/24 History 50 mg tablet (Senokot-S) Allergies Allergy/AdvReac Type Severity Reaction Status Date / Time bee venom protein (honey bee) Allergy Unknown Swelling Verified 05/07/24 10:33 Vital Signs Vital Signs - 24 hr 05/09/24 08:54 05/09/24 08:59 05/09/24 09:01 Temperature 97.6 F Pulse Rate 98 98 98 Respiratory Rate 13 16 12 Blood Pressure 117/61 114/87 117/61 Pulse Oximetry 99 100 99 Oxygen Delivery Nasal Cannula Oxygen Flow Rate 3 05/09/24 09:16 05/09/24 11:38 Temperature Pulse Rate 92 86 Respiratory Rate 17 16 Blood Pressure 123/60 111/76 Pulse Oximetry 100 100 Oxygen Delivery Oxygen Flow Rate Exam Narrative: General:?Chronically ill-appearing male sitting up in bed in no acute distress. Weight: 93.2 kg. BMI: 27.9. HEENT:??PERRL, EOMI. Sclera anicteric. Dry blood in the right naris. Edentulous. Tacky mucous membranes. Neck:??Supple. No JVD. Respiratory:?Respirations are nonlabored. Lung sounds are a bit diminished with faint expiratory wheezing. Cardiovascular:??Regular rate and rhythm with S1-S2. Gastrointestinal:??Abdomen is soft, nontender, and nondistended with positive bowel sounds. Skin:??Warm and dry.? No rash or lesions on limited exam. Extremities:??No cyanosis or clubbing. Trace edema of the bilateral lower extremities. No palpable knots or cords. Peripheral pulses intact. Neurological:??Alert.? Cranial nerves 2-12 are grossly intact. No gross focal deficits to casual conversation. Psychiatric: Pleasant and cooperative with appropriate mood and affect. H&P: Results Labs Labs: Short CBC 05/09/24 Range/Units 10:16 WBC 1.5 L* (4.5-10.0) K/mm3 Hgb 9.1 L (14.0-18.0) g/dL Hct 30.8 L (42.0-52.0) % Plt Count 160 (150-375) k/mm3 BMP 05/09/24 10:16 Sodium 137 Potassium 3.6 Chloride 107 Carbon Dioxide 25 BUN 8 L Creatinine 0.60 L Glucose 113 H Calcium 7.2 L Cardiac Enzymes 05/09/24 Range/Units 10:16 Troponin I < 0.012 (0.000-0.034) ng/mL Liver Function 05/09/24 Range/Units 10:16 Total Bilirubin 0.6 (0.2-1.3) mg/dL AST 17 (17-59) U/L ALT 10 (6-50) U/L Alkaline Phosphatase 106 (38-126) U/L Albumin 3.2 L (3.5-5.1) g/dL Imaging Chest X-Ray 05/09/24 10:44 IMPRESSION: 1. Persistent volume loss with chronic opacities in the posterior right mid to upper lung zone on CT. 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 2. No recent interval change in a small right pleural effusion with associated compressive atelectasis in the right lower lobe. 3. Difficult to absolutely exclude superimposed pneumonia however there are no new opacities to more specifically suggest this. Chest CTA 05/09/24 11:19 IMPRESSION: 1. No pulmonary embolism. 2. Bilateral scattered mild new lung disease, composed predominantly of tree-in-bud opacities and small groundglass opacities suspicious for pneumonia 3. Unchanged small right and new small left pleural effusions. 4. A couple regions of chronic consolidation with volume loss in the right mid to upper lung and right lower lung likely atelectasis/scarring related to reported treated lung cancer. 5. Unchanged scattered subcentimeter solid pulmonary nodules and scattered patchy sclerotic bone lesions consistent with metastatic disease. Assessment and Plan Assessment and plan (1) Pneumonia: Code(s): J18.9 - Pneumonia, unspecified organism Status: Acute (2) Neutropenia: Code(s): D70.9 - Neutropenia, unspecified Status: Acute (3) Epistaxis: Code(s): R04.0 - Epistaxis Status: Acute (4) Chronic anemia: Code(s): D64.9 - Anemia, unspecified Status: Acute (5) Lung cancer m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: Code(s): C34.90 - Malignant neoplasm of unspecified part of unspecified bronchus or lung; C79.51 - Secondary malignant neoplasm of bone Status: Acute (6) Chronic respiratory failure with hypoxia, on home oxygen therapy: Code(s): J96.11 - Chronic respiratory failure with hypoxia; Z99.81 - Dependence on supplemental oxygen Status: Acute (7) Chronic obstructive pulmonary disease: Code(s): J44.9 - Chronic obstructive pulmonary disease, unspecified Status: Acute (8) Chronic anticoagulation: Code(s): 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 Labs, imaging, EKG, and all reports were personally reviewed. Epistaxis resolved prior to arrival to the emergency department has not recurred. Saline nasal gel ordered q.h.s. as well as humidity with his oxygen. Resume rivaroxaban tomorrow as long as he remains without bleeding. Hemoglobin is stable and will be monitored closely; he reports having of fairly recent blood transfusion. Absolute neutrophil count is 900 and due to recent chemoth erapy he will be in protective isolation until his white count begins to trend upwards. I spoke with Dr. Baez who recommends starting filgrastim 300 mcg subQ daily until WBC count reaches 5000. Continue azithromycin and ceftriaxone for community-acquired pneumonia; there is no evidence of postobstructive pneumonia seen on CT scan. Schedule bronchodilators for now. Sputum culture ordered. COVID, RSV, influenza, and MRSA screenings are pending. Vital signs were reviewed and they are stable. His home medications will be reviewed and resumed as appropriate. Findings and treatment plan were discussed with the patient. Questions were solicited and answered to satisfaction. The patient's medical management will be taken over by the hospitalist team in a.m. Quality VTE Prophylaxis VTE prophylaxis: pharmacologic ordered (on rivaroxaban) The patient has been admitted under observation status. Hospitalist MIPS Advance Care Plan I have confirmed that the patient's Advanced Care Plan is present, code status is documented, or surrogate decision maker is listed in patient medical record.: Yes Medication Reconciliation I have utilized all available resources to obtain, update and review the patients current medications (includes all prescriptions, OTC, herbals, cannabis, and nutritional supplements).: Yes
[2024-05-09] MEDS: IPRATROPIUM 0.5 MG/ALBUTEROL SULFATE 2.5 MG AMPUL.NEB 3 ML INHALATION ×2 (13:22→21:44)
[2024-05-09] MEDS: CENTRAL LINE FLUSH 10 ML IV PUSH ×2 (16:30→21:10)
[2024-05-09 16:55] LABS: Influenza A QL RT-PCR Negative (Negative); Influenza B QL RT-PCR Negative (Negative); RSV RNA, RT-PCR Negative (Negative); SARS-CoV-2 RNA PCR Negative (Negative)
[2024-05-09 17:38] LABS: MRSA (PCR) NOT DETECTED (NOT DETECTE)
[2024-05-09 18:20] LABS: Hematocrit 28.4 % (42.0-52.0); Hemoglobin 8.5 g/dL (14.0-18.0)
[2024-05-09] MEDS: SODIUM CHLORIDE NASAL GEL 14.1 GM 1 APPLIC NASAL (21:02)
[2024-05-09] MEDS: guaiFENesin 12 HR 600 MG TABCR 1200 MG PO (21:03)
[2024-05-09] MEDS: oxyCODONE HCL (*CRX) 40 MG TAB SR 12HR PO (21:04)
[2024-05-09] MEDS: PREGABALIN (*CRX) 75 MG CAPSULE 225 MG PO (21:04)
[2024-05-09] MEDS: VISC PO (21:06)
[2024-05-09] MEDS: MAGNESIUM PO (21:06)
[2024-05-09] MEDS: SIMETH PO (21:06)
[2024-05-09] MEDS: ALUMINUM PO (21:06)
[2024-05-09] MEDS: [UNRECOGNIZED DRUG - OTHER] PO (21:06)
[2024-05-09] MEDS: METOPROLOL TARTRATE 12.5 MG TABLET PO (21:06)
[2024-05-09] MEDS: LIDOCAINE HCL 2% PO (21:06)
[2024-05-09] MEDS: BUDESONIDE RESPULE NEB 0.5 MG/2 ML AMP INHALATION (21:44)
[2024-05-09] MEDS: FLUTICASONE/SALMETEROL 230-21 MCG INHALER 1 PUFF 2 PUFF INHALATION (21:45)
[2024-05-10] VITALS (14 sets, daily range): BP systolic 102–107; BP diastolic 51–65; PULSE 66–105; RESP 16–22; TEMP 36.2–36.8; O2SAT 95–99
[2024-05-10] MEDS: [UNRECOGNIZED DRUG - OTHER] PO ×5 (04:42→20:54)
[2024-05-10] MEDS: MAGNESIUM PO ×5 (04:42→20:54)
[2024-05-10] MEDS: VISC PO ×5 (04:42→20:54)
[2024-05-10] MEDS: LIDOCAINE HCL 2% PO ×5 (04:42→20:54)
[2024-05-10] MEDS: SIMETH PO ×5 (04:42→20:54)
[2024-05-10] MEDS: ALUMINUM PO ×5 (04:42→20:54)
[2024-05-10] MEDS: ACETAMINOPHEN 325 MG TABLET 650 MG PO ×2 (04:49→20:43)
[2024-05-10 04:50] LABS: Hematocrit 26.1 % (42.0-52.0); Hemoglobin 7.8 g/dL (14.0-18.0); Mean Corpuscular HGB Conc 29.9 g/dl (32-36); Mean Corpuscular Hemoglobin 25.4 pg (26-34); Mean Platelet Volume 11.2 fl (7.4-10.4); Platelet Count Result 139 k/mm3 (150-375); Red Blood Count 3.07 M/mm3 (4.6-6.20); Red Cell Distribution Width 19.7 % (11.5-14.5)
[2024-05-10] MEDS: CENTRAL LINE FLUSH 10 ML IV PUSH ×3 (05:01→20:45)
[2024-05-10 05:02] LABS: Anion Gap 1 mmol/L (4-12); Blood Urea Nitrogen 7 mg/dL (9-20); Calcium 6.8 mg/dL (8.4-10.2); Carbon Dioxide 26 mmol/L (22-30); Chloride 110 mmol/L (98-107); Estimated CRCL calculation 103 ml/min; Estimated Glomerular Filt Rate > 60; Glucose 112 mg/dL (65-110); Magnesium 2.2 mg/dL (1.6-2.3); Potassium 3.3 mmol/L (3.4-5.0); Sodium 137 mmol/L (137-145)
[2024-05-10 05:14] LABS: White Blood Count 1.7 K/mm3 (4.5-10.0)
[2024-05-10] MEDS: IPRATROPIUM 0.5 MG/ALBUTEROL SULFATE 2.5 MG AMPUL.NEB 3 ML INHALATION ×3 (08:16→20:28)
[2024-05-10] MEDS: BUDESONIDE RESPULE NEB 0.5 MG/2 ML AMP INHALATION ×2 (08:16→20:28)
[2024-05-10] MEDS: FLUTICASONE/SALMETEROL 230-21 MCG INHALER 1 PUFF 2 PUFF INHALATION ×2 (08:32→20:28)
--- NOTE | 2024-05-10 08:38 | PM.IMPN ---
Progress Note: A&P Assessment and Plan (1) Pneumonia: Code(s): J18.9 - Pneumonia, unspecified organism Status: Acute Assessment and Plan: On 3L O2 at home. Not currently wheezing. He had a productive cough that is resolved and is neutropenic. No fevers 05/09 CTA 1. No pulmonary embolism. 2. Bilateral scattered mild new lung disease, composed predominantly of tree-in-bud opacities and small groundglass opacities suspicious for pneumonia 3. Unchanged small right and new small left pleural effusions. 4. A couple regions of chronic consolidation with volume loss in the right mid to upper lung and right lower lung likely atelectasis/scarring related to reported treated lung cancer. 5. Unchanged scattered subcentimeter solid pulmonary nodules and scattered patchy sclerotic bone lesions consistent with metastatic disease. Continue Ceftriaxone, Azithromycin Has a hx of C-diff, monitor for diarrhea, currently resolved (2) Neutropenia: Code(s): D70.9 - Neutropenia, unspecified Status: Acute Assessment and Plan: WBC improving 1.5<1.7 --Continuing filgrastim per outpatient oncology recs, Dr. Baez (3) Epistaxis: Code(s): R04.0 - Epistaxis Status: Acute Assessment and Plan: Blood count trending down and has some continued scant bleeding when he blows his nose, though minimal --Repeat CBC --Add ocean spray, continue saline gel, humidified O2 --Restart anticoagulation today and monitor if blood count stable and bleeding resolved (4) Chronic anemia: Code(s): D64.9 - Anemia, unspecified Status: Acute Assessment and Plan: BLood count trending down (5) Lung cancer m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: Code(s): C34.90 - Malignant neoplasm of unspecified part of unspecified bronchus or lung; C79.51 - Secondary malignant neoplasm of bone Status: Acute Assessment and Plan: Follows with Dr. Baez outpatient --Has a Port, currently accessed -Treatment of neutropenia as noted --Magic mouthwash for mouth sores --Reports decreased mobility, cane at baseline: PT/OT (6) Chronic respiratory failure with hypoxia, on home oxygen therapy: Code(s): J96.11 - Chronic respiratory failure with hypoxia; Z99.81 - Dependence on supplemental oxygen Status: Acute Assessment and Plan: On 3L Home O2. 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 Still noticing some blood when blowing his nose. Calcium low this morning, repeating this afternoon. Upset about bladder scan overnight, said he would ask if he needed one but would like to avoid them overnight while he's sleeping. Diarrhea resolved today. Had been frequent and was having stool incontinence. White count improving slowly. Also notes hair loss with chemotherapy. Rare nonproductive cough. No shortness of breath but hasn't been out of bed, feels his heart races when he gets out of bed. Wants to have bed alarm removed. Discussed with bedside nurse who is going to check to see how he ambulates. He uses a walker rarely. 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 Bleedin g resolving off anticoagulation and with humidity. Also treating pneumonia, neutropenia with filgrastim, and hypocalcemia Review of Systems Review of Systems: 12 systems were reviewed and are negative except for as per HPI. Exam Narrative: General:?Chronically ill-appearing male sitting up in bed in no acute distress. Weight: 93.2 kg. BMI: 27.9. HEENT:??PERRL, EOMI. Sclera anicteric. Edentulous. Multiple sores in his mouth. Hair loss Neck:??Supple. No JVD. Respiratory:?Respirations are nonlabored. Lung sounds are diminished all lobes. No crackles or wheezing Cardiovascular:??Regular rate and rhythm with S1-S2. Gastrointestinal:??Abdomen is soft, nontender, and nondistended with positive bowel sounds. Palpable pain pump to left abdomen Skin:??Warm and dry.? No rash or lesions on limited exam.. Port accessed to left chest Extremities:??No cyanosis or clubbing. Trace edema of the bilateral lower extremities. No palpable knots or cords. Peripheral pulses intact. Neurological:??Alert.? Cranial nerves 2-12 are grossly intact. No gross focal deficits to casual conversation. Psychiatric: Pleasant and cooperative with appropriate mood and affect. Objective Data Vital Signs Vital Signs: Vital Signs - 24 hr 05/09/24 08:54 05/09/24 08:59 05/09/24 09:01 Temperature 97.6 F Pulse Rate 98 98 98 Respiratory Rate 13 16 12 Blood Pressure 117/61 114/87 117/61 Pulse Oximetry 99 100 99 Oxygen Delivery Nasal Cannula Oxygen Flow Rate 3 Fraction of Inspired Oxygen 05/09/24 09:16 05/09/24 11:38 05/09/24 13:22 Temperature Pulse Rate 92 86 84 Respiratory Rate 17 16 19 Blood Pressure 123/60 111/76 Pulse Oximetry 100 100 Oxygen Delivery Oxygen Flow Rate Fraction of Inspired Oxygen 05/09/24 13:37 05/09/24 12:30 05/09/24 12:45 Temperature Pulse Rate 86 87 84 Respiratory Rate 14 14 19 Blood Pressure 118/62 Pulse Oximetry 100 100 Oxygen Delivery Oxygen Flow Rate Fraction of Inspired Oxygen 05/09/24 14:59 05/09/24 16:00 05/09/24 21:00 Temperature 97.4 F L 98.2 F Pulse Rate 94 97 Respiratory Rate 18 20 Blood Pressure 95/74 L 110/55 L Pulse Oximetry 100 94 100 Oxygen Delivery Nasal Cannula Oxygen Flow Rate 4 Fraction of Inspired Oxygen 05/09/24 21:06 05/09/24 21:45 05/09/24 21:46 Temperature Pulse Rate 97 80 80 Respiratory Rate 15 16 Blood Pressure Pulse Oximetry 96 Oxygen Delivery Oxygen Flow Rate 4 Fraction of Inspired Oxygen 05/09/24 22:03 05/09/24 20:30 05/10/24 05:09 Temperature 98.1 F Pulse Rate 83 87 Respiratory Rate 16 18 Blood Pressure 107/65 Pulse Oximetry 100 96 Oxygen Delivery Nasal Cannula Oxygen Flow Rate 4 Fraction of Inspired Oxygen 05/10/24 08:18 05/10/24 08:18 05/10/24 08:33 Temperature Pulse Rate 66 70 Respiratory Rate 20 20 Blood Pressure Pulse Oximetry 98 Oxygen Delivery Nasal Cannula Oxygen Flow Rate 3.5 Fraction of Inspired Oxygen 34 Intake/Output Intake/Output: Intake & Output 05/07/24 05/08/24 05/09/24 05/10/24 23:59 23:59 23:59 23:59 Intake Total 1540.0 790 Output Total 200 Balance 1340.0 790 Meds/Results Medications: Active Medications Generic Name Dose Route Start Last Admin Trade Name Freq PRN Reason Stop Dose Admin Acetaminophen 650 mg 05/09/24 14:44 05/10/24 04:49 Acetaminophen 325 Mg Tablet PO 650 mg Q6H PRN Administration Mild Pain (1-3) or Fever Albuterol 2 puff 05/09/24 16:06 Albuterol Sulfate (*Sp) Aerosol 1 Puff INHALATION Q4H PRN Shortness Of Breath Or Wheezing Albuterol/Ipratropium 3 ml 05/09/24 14:00 05/10/24 08:16 Ipratropium 0.5 Mg/Albuterol Sulfate 2.5 Mg Ampul.Neb 3 Ml INHALATION 3 ml Q6HRT JESSICA Administration Budesonide 0.5 mg 05/09/24 20:00 05/10/24 08:16 Budesonide Respule Neb 0.5 Mg/2 Ml Amp INHALATION 0.5 mg Q12HRT JESSICA Administration Lidocaine HCl 30 ml/ Al Hydrox 0 ml 05/10/24 05:00 05/10/24 04:43 /Mg Hydrox/Simethicone 30 ml/ PO Not Given Diphenhydramine HCl 75 mg Q4HWA JESSICA Cyanocobalamin 2,000 mcg 05/10/24 09:00 Cyanocobalamin 1,[address] PO Q[address] [facility] Cyanocobalamin 500 mcg 05/10/24 09:00 Cyanocobalamin [address] Table[address] PO QAM [facility] Ergocalciferol 50,000 units 05/19/24 09:00 Ergocalciferol 50,000 Units Capsule PO Mo@0900 [facility] Ferrous Sulfate 325 mg 05/10/24 09:00 Ferrous Sulfate [address] BY MOUTH DAILY [facility] Filgrastim-Sndz 300 mcg 05/10/24 09:00 Filgrastim-Sndz 300 Mcg/0.5 Ml Syringe SUB-Q DAILY [facility] Folic Acid 1 mg 05/10/24 09:00 Folic Acid 1 [address] Table[address] [facility] Guaifenesin 1,200 mg 05/09/24 21:00 05/09/24 21:03 Guaifenesin 12 Hr 600 Mg Tabcr PO 1,200 mg Q12HR JESSICA Administration Heparin Sodium (Beef Lung) 50 units 05/10/24 09:00 Heparin Flush 50 Units/5 Ml Syringe IV PUSH QAM JESSICA Heparin Sodium (Beef Lung) 50 units 05/09/24 10:01 Heparin Flush 50 Units/5 Ml Syringe IV PUSH PRN PRN after intermittent infusion Heparin Sodium (Beef Lung) 50 units 05/09/24 10:01 05/10/24 04:42 Heparin Flush 50 Units/5 Ml Syringe IV PUSH 50 units PRN PRN Administration after blood draws Heparin Sodium (Porcine) 500 units 05/09/24 10:01 Heparin Sodium Lock Flush 500 Units/5 Ml Syringe IV PUSH PRN PRN see comments below Ceftriaxone Sodium 1 gm in 50 mls @ 100 mls/hr 05/10/24 09:00 Rocephin 1 Gm/Ns [address] [facility] Azithromycin 500 mg in 250 mls @ 250 mls/hr 05/10/24 10:[address] [facility] Loperamide HCl 2 mg 05/09/24 21:04 Loperamide Hcl 2 Mg Capsule PO PRN PRN Diarrhea Lorazepam 0.5 mg 05/09/24 16:06 Lorazepam (*Crx) 0.5 Mg Tablet PO Q8H PRN Anxiety Metoprolol Tartrate 12.5 mg 05/09/24 21:00 05/09/24 21:06 Metoprolol Tartrate 12.5 Mg Tablet PO 12.5 mg Q12HR JESSICA Administration Oxycodone HCl 5 mg 05/09/24 16:06 Oxycodone Hcl (*Crx) 5 Mg Tab Ir PO Q6H PRN Breakthrough Pain Oxycodone HCl 40 mg 05/09/24 21:00 05/09/24 21:04 Oxycodone Hcl (*Crx) 40 Mg Tab Sr 12hr PO 40 mg Q12HR JESSICA Administration Pantoprazole Sodium 40 mg 05/10/24 09:00 Pantoprazole 40 Mg Tablet PO QAM JESSICA Pregabalin 225 mg 05/09/24 21:00 05/09/24 21:04 Pregabalin (*Crx) 75 Mg Capsule PO 225 mg Q12HR JESSICA Administration Rivaroxaban 20 mg 05/10/24 17:00 Rivaroxaban 20 Mg Tablet PO DAILY@1700 JESSICA Fluticasone/Salmeterol 2 puff 05/09/24 20:00 05/10/24 08:32 Fluticasone/Salmeterol 230-21 Mcg Inhaler 1 Puff INHALATION 2 puff Q12HRT JESSICA Administration Senna/Docusate Sodium 1 tab 05/10/24 09:00 Senna/Docusate Sodium Tablet PO DAILY JESSICA Sodium Chloride 10 ml 05/09/24 14:00 05/10/24 05:01 Central Line Flush IV PUSH 10 ml Q8HR JESSICA Administration Sodium Chloride 1 applic 05/09/24 21:00 05/09/24 21:02 Sodium Chloride Nasal Gel 14.1 Gm NASAL 1 applic HS JESSICA Administration Tamsulosin HCl 0.4 mg 05/10/24 09:00 Tamsulosin Hcl 0.4 Mg Capsule PO DAILY JESSICA Triamcinolone Acetonide 1 applic 05/09/24 16:06 Triamcinolone Acet 0.1% Cream 15 Gm Tube TOPICAL QID PRN psioriasis Radiology Results: ITS Impressions Chest X-Ray 05/09/24 10:44 IMPRESSION: 1. Persistent volume loss with chronic opacities in the posterior right mid to upper lung zone on CT. 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 2. No recent interval change in a small right pleural effusion with associated compressive atelectasis in the right lower lobe. 3. Difficult to absolutely exclude superimposed pneumonia however there are no new opacities to more specifically suggest this. Chest CTA 05/09/24 11:19 IMPRESSION: 1. No pulmonary embolism. 2. Bilateral scattered mild new lung disease, composed predominantly of tree-in-bud opacities and small groundglass opacities suspicious for pneumonia 3. Unchanged small right and new small left pleural effusions. 4. A couple regions of chronic consolidation with volume loss in the right mid to upper lung and right lower lung likely atelectasis/scarring related to reported treated lung cancer. 5. Unchanged scattered subcentimeter solid pulmonary nodules and scattered patchy sclerotic bone lesions consistent with metastatic disease. Labs Labs: Laboratory Results - last 24 hr 05/09/24 05/09/24 05/09/24 10:16 16:08 16:20 WBC 1.5 L* RBC 3.65 L Hgb 9.1 L Hct 30.8 L MCV 84.4 MCH 24.9 L MCHC 29.5 L RDW 19.8 H Plt Count 160 MPV 11.5 H Immature Gran % (Auto) Not Reportable Neut % (Auto) Not Reportable Lymph % (Auto) Not Reportable [place] % (Auto) Not Reportable Eos % (Auto) Not Reportable Baso % (Auto) Not Reportable Lymph # (Auto) Not Reportable [place] # (Auto) Not Reportable Eos # (Auto) Not Reportable Baso # (Auto) Not Reportable Abs Immat Gran (auto) Not Reportable Absolute Neuts (auto) Not Reportable Absolute Nucleated RBC Not Reportable Total Counted 100 Neutrophils % (Manual) 55 Band Neutrophils % 1 Lymphocytes % (Manual) 32 Monocytes % (Manual) 8 Eosinophils % (Manual) 3 Basophils % (Manual) 1 Nucleated RBC % Not Reportable Abs Neuts (Manual) 0.84 L Abs Lymphs (Manual) 0.48 L Abs Monocytes (Manual) 0.12 Absolute Eos (Manual) 0.04 Abs Basophils (Manual) 0.01 Atypical Lymphocytes Present Platelet Estimate Adequate Hypochromasia 1+ Anisocytosis 1+ Ovalocytes 1+ Schistocytes None seen PT 21.3 H INR 1.8 APTT 68.3 H Sodium 137 Potassium 3.6 Chloride 107 Carbon Dioxide 25 Anion Gap 5 BUN 8 L Creatinine 0.60 L Estim Creat Clear Calc 119 Estimated GFR > 60 Glucose 113 H Lactic Acid 0.9 Calcium 7.2 L Magnesium Total Bilirubin 0.6 AST 17 ALT 10 Alkaline Phosphatase 106 Troponin I < 0.012 C-Reactive Protein 8.5 H NT-Pro-B Natriuret Pep 495 H Total Protein 6.0 L Albumin 3.2 L Nasal MRSA (PCR) Not detected Influenza A (RT-PCR) Negative Influenza B (RT-PCR) Negative RSV (RT-PCR) Negative SARS-CoV-2 RNA (RT-PCR) Negative Blood Type A Positive Antibody Screen Negative 05/09/24 05/10/24 18:15 04:39 WBC 1.7 L* RBC 3.07 L Hgb 8.5 L 7.8 L Hct 28.4 L 26.1 L MCV 85.0 MCH 25.4 L MCHC 29.9 L RDW 19.7 H Plt Count 139 L MPV 11.2 H Immature Gran % (Auto) Neut % (Auto) Lymph % (Auto) [place] % (Auto) Eos % (Auto) Baso % (Auto) Lymph # (Auto) [place] # (Auto) Eos # (Auto) Baso # (Auto) Abs Immat Gran (auto) Absolute Neuts (auto) Absolute Nucleated RBC Total Counted Neutrophils % (Manual) Band Neutrophils % Lymphocytes % (Manual) Monocytes % (Manual) Eosinophils % (Manual) Basophils % (Manual) Nucleated RBC % Abs Neuts (Manual) Abs Lymphs (Manual) Abs Monocytes (Manual) Absolute Eos (Manual) Abs Basophils (Manual) Atypical Lymphocytes Platelet Estimate Hypochromasia Anisocytosis Ovalocytes Schistocytes PT INR APTT Sodium 137 Potassium 3.3 L Chloride 110 H Carbon Dioxide 26 Anion Gap 1 L BUN 7 L Creatinine 0.70 Estim Creat Clear Calc 103 Estimated GFR > 60 Glucose 112 H Lactic Acid Calcium 6.8 L Magnesium 2.2 Total Bilirubin AST ALT Alkaline Phosphatase Troponin I C-Reactive Protein NT-Pro-B Natriuret Pep Total Protein Albumin Nasal MRSA (PCR) Influenza A (RT-PCR) Influenza B (RT-PCR) RSV (RT-PCR) SARS-CoV-2 RNA (RT-PCR) Blood Type Antibody Screen Quality VTE Prophylaxis VTE prophylaxis: mechanical ordered Hospitalist MIPS Advance Care Plan I have confirmed that the patient's Advanced Care Plan is present, code status is documented, or surrogate decision maker is listed in patient medical record.: Yes Medication Reconciliation I have utilized all available resources to obtain, update and review the patients current medications (includes all prescriptions, OTC, herbals, cannabis, and nutritional supplements).: Yes
[2024-05-10] MEDS: PREGABALIN (*CRX) 75 MG CAPSULE 225 MG PO ×2 (09:46→20:43)
[2024-05-10] MEDS: TAMSULOSIN HCL 0.4 MG CAPSULE PO (09:46)
[2024-05-10] MEDS: oxyCODONE HCL (*CRX) 40 MG TAB SR 12HR PO ×2 (09:46→20:43)
[2024-05-10] MEDS: CYANOCOBALAMIN 1,000 MCG TABLET 2000 MCG PO (09:46)
[2024-05-10] MEDS: CYANOCOBALAMIN 500 MCG TABLET PO (09:46)
[2024-05-10] MEDS: SENNA/DOCUSATE SODIUM TABLET 1 TAB PO (09:48)
[2024-05-10] MEDS: PANTOPRAZOLE 40 MG TABLET PO (09:48)
[2024-05-10] MEDS: FOLIC ACID 1 MG TABLET PO (09:48)
[2024-05-10] MEDS: CALCIUM CARBONATE (TUMS) 500 MG (200 MG ELEMENTAL) 400 MG PO ×3 (09:48→17:09)
[2024-05-10] MEDS: POTASSIUM CHLORIDE 20 MEQ PACKET (FOR LIQUID) PO (09:48)
[2024-05-10] MEDS: guaiFENesin 12 HR 600 MG TABCR 1200 MG PO ×2 (09:48→20:43)
[2024-05-10] MEDS: FERROUS SULFATE 325 MG TABLET DR BY MOUTH (09:48)
[2024-05-10] MEDS: FILGRASTIM-SNDZ 300 MCG/0.5 ML SYRINGE SUB-Q (09:49)
[2024-05-10] MEDS: METOPROLOL TARTRATE 12.5 MG TABLET PO ×2 (09:53→20:44)
[2024-05-10] MEDS: AZITHROMYCIN 500 MG/NS 250 ML 500 MG/250 ML BAG 250 MG IVPB (10:38)
[2024-05-10 12:54] LABS: Basophils Percent Auto 1.1 % (0.2-1.2); Eosinophils Percent Auto 2.1 % (0-4.4); Hematocrit 28.1 % (42.0-52.0); Hemoglobin 8.4 g/dL (14.0-18.0); Immature Granulocyte Absolute 0.01 K/mm3 (0.00-0.031); Immature Granulocyte Percent A 0.5 % (0-0.5); Immature Platelet Fraction Pct 4.5 % (0.9-11.2); Lymphocytes Absolute Auto 0.75 K/mm3 (0.9-3.2); Lymphocytes Percent Auto 40.1 % (18.3-44.2); Mean Corpuscular HGB Conc 29.9 g/dl (32-36); Mean Corpuscular Hemoglobin 25.3 pg (26-34); Mean Corpuscular Volume 84.6 fl (80-100); Monocytes Absolute Auto 0.4 K/mm3 (0.1-0.6); Monocytes Percent Auto 19.8 % (2.6-8.5); Neutrophils Absolute Auto 0.7 K/mm3 (1.3-6.7); Neutrophils Percent Auto 36.4 % (45.5-73.1); Platelet Count Result 153 k/mm3 (150-375); Red Blood Count 3.32 M/mm3 (4.6-6.20); Red Cell Distribution Width 19.7 % (11.5-14.5)
[2024-05-10 13:01] LABS: Anion Gap 0 mmol/L (4-12); Blood Urea Nitrogen 6 mg/dL (9-20); Calcium 7.6 mg/dL (8.4-10.2); Carbon Dioxide 26 mmol/L (22-30); Chloride 110 mmol/L (98-107); Estimated CRCL calculation 91 ml/min; Estimated Glomerular Filt Rate > 60; Glucose 101 mg/dL (65-110); Potassium 3.5 mmol/L (3.4-5.0); Sodium 136 mmol/L (137-145)
[2024-05-10 13:13] LABS: Parathyroid Intact 207.3 pg/mL (14.5-75.2)
[2024-05-10 13:15] LABS: Anisocytosis 1+; Hypochromasia 1+; Ovalocytes 1+; Platelet Estimate Adequate (Adequate); Schistocytes None Seen; White Blood Count 1.9 K/mm3 (4.5-10.0)
[2024-05-10] MEDS: RIVAROXABAN 20 MG TABLET PO (17:09)
[2024-05-10] MEDS: SALINE 0.65% NAS SOLN 44 ML BTL 1 SPRAY NASAL (17:13)
[2024-05-10] MEDS: POTASSIUM CHLORIDE 20 MEQ ER TABLET 40 MEQ PO (19:18)
[2024-05-10] MEDS: SODIUM CHLORIDE NASAL GEL 14.1 GM 1 APPLIC NASAL (20:51)
[2024-05-11] VITALS (16 sets, daily range): BP systolic 104–111; BP diastolic 53–60; PULSE 75–89; RESP 16–20; TEMP 36.1–36.6; O2SAT 96–99
[2024-05-11 00:31] LABS: Basophils Percent Auto 0.3 % (0.2-1.2); Eosinophils Absolute Auto 0.1 K/mm3 (0-0.3); Eosinophils Percent Auto 1.6 % (0-4.4); Hematocrit 27.6 % (42.0-52.0); Hemoglobin 8.2 g/dL (14.0-18.0); Immature Granulocyte Absolute 0.02 K/mm3 (0.00-0.031); Immature Granulocyte Percent A 0.6 % (0-0.5); Lymphocytes Absolute Auto 1.11 K/mm3 (0.9-3.2); Lymphocytes Percent Auto 35.2 % (18.3-44.2); Mean Corpuscular HGB Conc 29.7 g/dl (32-36); Mean Corpuscular Hemoglobin 25.2 pg (26-34); Mean Corpuscular Volume 84.7 fl (80-100); Mean Platelet Volume 10.5 fl (7.4-10.4); Monocytes Absolute Auto 0.7 K/mm3 (0.1-0.6); Neutrophils Absolute Auto 1.3 K/mm3 (1.3-6.7); Neutrophils Percent Auto 41.3 % (45.5-73.1); Platelet Count Result 147 k/mm3 (150-375); Red Blood Count 3.26 M/mm3 (4.6-6.20); Red Cell Distribution Width 19.7 % (11.5-14.5); White Blood Count 3.2 K/mm3 (4.5-10.0)
[2024-05-11 00:42] LABS: Anion Gap 4 mmol/L (4-12); Blood Urea Nitrogen 7 mg/dL (9-20); Calcium 8.3 mg/dL (8.4-10.2); Carbon Dioxide 24 mmol/L (22-30); Chloride 109 mmol/L (98-107); Estimated CRCL calculation 74 ml/min; Estimated Glomerular Filt Rate > 60; Glucose 124 mg/dL (65-110); Potassium 3.8 mmol/L (3.4-5.0); Sodium 137 mmol/L (137-145)
[2024-05-11 01:03] LABS: Hypochromasia 1+; Large Platelets Present; Platelet Estimate Slightly Decreased (Adequate)
[2024-05-11 01:04] LABS: Anisocytosis 1+; Ovalocytes 1+; Schistocytes None Seen
[2024-05-11] MEDS: IPRATROPIUM 0.5 MG/ALBUTEROL SULFATE 2.5 MG AMPUL.NEB 3 ML INHALATION ×4 (01:51→21:21)
[2024-05-11] MEDS: CENTRAL LINE FLUSH 10 ML IV PUSH ×3 (05:00→20:10)
[2024-05-11] MEDS: MAGNESIUM PO (05:01)
[2024-05-11] MEDS: [UNRECOGNIZED DRUG - OTHER] PO (05:01)
[2024-05-11] MEDS: SIMETH PO (05:01)
[2024-05-11] MEDS: VISC PO (05:01)
[2024-05-11] MEDS: LIDOCAINE HCL 2% PO (05:01)
[2024-05-11] MEDS: ALUMINUM PO (05:01)
[2024-05-11 05:23] LABS: Basophils Percent Auto 0.7 % (0.2-1.2); Eosinophils Absolute Auto 0.1 K/mm3 (0-0.3); Eosinophils Percent Auto 1.7 % (0-4.4); Hematocrit 26.1 % (42.0-52.0); Hemoglobin 7.9 g/dL (14.0-18.0); Immature Granulocyte Absolute 0.03 K/mm3 (0.00-0.031); Mean Corpuscular HGB Conc 30.3 g/dl (32-36); Mean Corpuscular Hemoglobin 25.6 pg (26-34); Mean Corpuscular Volume 84.5 fl (80-100); Mean Platelet Volume 10.6 fl (7.4-10.4); Monocytes Absolute Auto 0.6 K/mm3 (0.1-0.6); Monocytes Percent Auto 19.7 % (2.6-8.5); Neutrophils Absolute Auto 1.3 K/mm3 (1.3-6.7); Neutrophils Percent Auto 42.9 % (45.5-73.1); Platelet Count Result 145 k/mm3 (150-375); Red Blood Count 3.09 M/mm3 (4.6-6.20); Red Cell Distribution Width 19.7 % (11.5-14.5); White Blood Count 2.9 K/mm3 (4.5-10.0)
[2024-05-11 05:49] LABS: Anion Gap 2 mmol/L (4-12); Blood Urea Nitrogen 7 mg/dL (9-20); Calcium 8.6 mg/dL (8.4-10.2); Carbon Dioxide 25 mmol/L (22-30); Chloride 109 mmol/L (98-107); Estimated CRCL calculation 74 ml/min; Estimated Glomerular Filt Rate > 60; Glucose 122 mg/dL (65-110); Phosphorus 2.8 mg/dL (2.5-4.5); Sodium 136 mmol/L (137-145)
[2024-05-11] MEDS: FLUTICASONE/SALMETEROL 230-21 MCG INHALER 1 PUFF 2 PUFF INHALATION ×2 (08:00→21:21)
[2024-05-11] MEDS: BUDESONIDE RESPULE NEB 0.5 MG/2 ML AMP INHALATION ×2 (08:00→21:21)
[2024-05-11] MEDS: CALCIUM CARBONATE (TUMS) 500 MG (200 MG ELEMENTAL) 400 MG PO ×3 (09:46→17:30)
[2024-05-11] MEDS: FERROUS SULFATE 325 MG TABLET DR BY MOUTH (09:47)
[2024-05-11] MEDS: SENNA/DOCUSATE SODIUM TABLET 1 TAB PO (09:47)
[2024-05-11] MEDS: METOPROLOL TARTRATE 12.5 MG TABLET PO ×2 (09:47→20:09)
[2024-05-11] MEDS: CYANOCOBALAMIN 500 MCG TABLET PO (09:47)
[2024-05-11] MEDS: CYANOCOBALAMIN 1,000 MCG TABLET 2000 MCG PO (09:47)
[2024-05-11] MEDS: guaiFENesin 12 HR 600 MG TABCR 1200 MG PO ×2 (09:47→20:09)
[2024-05-11] MEDS: FOLIC ACID 1 MG TABLET PO (09:47)
[2024-05-11] MEDS: TAMSULOSIN HCL 0.4 MG CAPSULE PO (09:48)
[2024-05-11] MEDS: PREGABALIN (*CRX) 75 MG CAPSULE 225 MG PO ×2 (09:48→20:09)
[2024-05-11] MEDS: PANTOPRAZOLE 40 MG TABLET PO (09:48)
[2024-05-11] MEDS: FILGRASTIM-SNDZ 300 MCG/0.5 ML SYRINGE SUB-Q (09:48)
[2024-05-11] MEDS: oxyCODONE HCL (*CRX) 40 MG TAB SR 12HR PO ×2 (09:48→20:09)
[2024-05-11] MEDS: SALINE 0.65% NAS SOLN 44 ML BTL 1 SPRAY NASAL ×2 (09:49→17:30)
--- NOTE | 2024-05-11 09:56 | P.PNIM_ITS ---
Progress Note: A&P Assessment and Plan (1) Pneumonia: Code(s): J18.9 - Pneumonia, unspecified organism Status: Acute Assessment and Plan: * On 3L O2 at home. Not currently wheezing. He had a productive cough that is resolved and is neutropenic. No fevers * 05/09 CTA small groundglass opacities suspicious negative for PE * Continue Ceftriaxone, Azithromycin * DuoNebs * Has a hx of C-diff, monitor for diarrhea, currently resolved added probiotic * guaifenesin * CPT (2) Neutropenia: Code(s): D70.9 - Neutropenia, unspecified Status: Acute Assessment and Plan: * WBC improving 1.5<1.7<2.7 stable at baseline * history of metastatic adeno carcinoma of the lung * Continuing filgrastim per outpatient oncology recs, Dr. Baez (3) Epistaxis: Code(s): R04.0 - Epistaxis Status: Acute Assessment and Plan: * Blood count trending down and has some continued scant bleeding when he blows his nose, though minimal * Add ocean spray, continue saline gel, humidified O2 * Restart anticoagulation today and monitor if blood count stable and bleeding resolved 7.4 (4) Chronic anemia: Code(s): D64.9 - Anemia, unspecified Status: Acute Assessment and Plan: * Chronic * intermittent bloody nose * currently on Xarelto * monitor H&H * Transfuse PRBC if Hgb <7.0 * resumed xarelto 05/10 (5) Lung cancer m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: Code(s): C34.90 - Malignant neoplasm of unspecified part of unspecified bronchus or lung; C79.51 - Secondary malignant neoplasm of bone Status: Acute Assessment and Plan: * Follows with Dr. Baez outpatient * Has a Port, currently accessed * Treatment of neutropenia as noted * Magic mouthwash for mouth sores * Reports decreased mobility, cane at baseline: PT/OT (6) Chronic respiratory failure with hypoxia, on home oxygen therapy: Code(s): J96.11 - Chronic respiratory failure with hypoxia; Z99.81 - Dependence on supplemental oxygen Status: Acute Assessment and Plan: * On 3L Home O2. 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 Status: Acute Assessment and Plan: * Hx DVT and afib * Holding Rivaroxaban * Resume this afternoon if blood count stable 05/11/24: * Xarelto resumed * monitor H&H (9) Hypocalcemia: Code(s): E83.51 - Hypocalcemia Status: Acute Assessment and Plan: * Calcium low, 6.8 * Check ionized calcium, vitamin D, PTH (10) Lower extremity edema: Code(s): R60.0 - Localized edema Status: Acute Assessment and Plan: * 1+ BLE * LAsix 40 daily * elevated legs when at rest Plan Code status: Full code per patient DVT prophylaxis: Xarelto Stress ulcer prophylaxis: Protonix 40 daily PT/OT notes: PT/OT at baseline Disposition: patient continues admission for medical management of pneumonia and nose bleeds on chronic anticoagulation patient with history of metastatic adeno carcinoma and wears 3 L supplemental oxygen chronically. Plan is for patient to return home when medically stable. Time Spent With Patient Time with patient: 15 - 25 minutes Subjective Date/time seen: 05/11/24 09:56 Interval history: patient is a 63-year-old male who was it mid it for further evaluation and treatment of pneumonia patient with metastatic adenocarcinoma of the lung and chronic respiratory failure with hypoxia. 05/11/24: Assumed Care Patient still with SOB and productive cough with moderate congestion. Denied CP, N/V, ABD pain. At 4L NC chronically at 3.5L. Afebrile overnight and WBC improving. Review of Systems Review of Systems: 12 systems were reviewed and are negativ e except for as per HPI. All systems reviewed & are unremarkable except as noted in HPI and below Exam Narrative: General: appears comfortable, in no acute distress Respiratory: breathing is labored with even chest rise/fall, lungs with wheezing throughout and productive cough Cardiovascular: Rate and rhythm regular, normal s1s2, no murmur Abdomen: Soft, round, non-tender, active bowel sounds Extremities: No cyanosis, edema, clubbing. Pulses 2/2 Neuro: A&O x 4 Skin: 1+ BLE edema Objective Data Vital Signs Vital Signs: Vital Signs - 24 hr 05/10/24 14:59 05/10/24 14:59 05/10/24 15:05 Temperature Pulse Rate 105 H 88 Respiratory Rate 20 20 Blood Pressure Pulse Oximetry 96 Oxygen Delivery Nasal Cannula Oxygen Flow Rate 3.5 Fraction of Inspired Oxygen 34 05/10/24 14:00 05/10/24 20:29 05/10/24 20:33 Temperature 97.1 F L Pulse Rate 78 85 85 Respiratory Rate 16 20 Blood Pressure 103/53 L Pulse Oximetry 99 97 Oxygen Delivery Nasal Cannula Oxygen Flow Rate 3.5 Fraction of Inspired Oxygen 05/10/24 20:41 05/10/24 20:44 05/10/24 21:33 Temperature 98.3 F Pulse Rate 83 84 88 Respiratory Rate 20 22 H Blood Pressure 102/51 L Pulse Oximetry 99 Oxygen Delivery Oxygen Flow Rate Fraction of Inspired Oxygen 05/10/24 20:00 05/11/24 01:51 05/11/24 02:03 Temperature Pulse Rate 80 81 Respiratory Rate 20 20 Blood Pressure Pulse Oximetry 95 Oxygen Delivery Nasal Cannula Oxygen Flow Rate 3 Fraction of Inspired Oxygen 05/11/24 06:00 05/11/24 08:02 05/11/24 08:03 Temperature 97.9 F Pulse Rate 83 75 Respiratory Rate 20 20 Blood Pressure 111/53 L Pulse Oximetry 99 97 Oxygen Delivery Nasal Cannula Oxygen Flow Rate 3.5 Fraction of Inspired Oxygen 05/11/24 08:14 05/11/24 09:25 05/11/24 09:47 Temperature Pulse Rate 77 77 Respiratory Rate 20 Blood Pressure Pulse Oximetry Oxygen Delivery Nasal Cannula Oxygen Flow Rate 4 Fraction of Inspired Oxygen Intake/Output Intake/Output: Intake & Output 05/08/24 05/09/24 05/10/24 05/11/24 23:59 23:59 23:59 23:59 Intake Total 1540.0 1800 440 Output Total 200 Balance 1340.0 1800 440 Meds/Results Medications: Active Medications Generic Name Dose Route Start Last Admin Trade Name Freq PRN Reason Stop Dose Admin Acetaminophen 650 mg 05/09/24 14:44 05/10/24 20:43 Acetaminophen 325 Mg Tablet PO 650 mg Q6H PRN Administration Mild Pain (1-3) or Fever Albuterol 2 puff 05/09/24 16:06 Albuterol Sulfate (*Sp) Aerosol 1 Puff INHALATION Q4H PRN Shortness Of Breath Or Wheezing Albuterol/Ipratropium 3 ml 05/09/24 14:00 05/11/24 08:00 Ipratropium 0.5 Mg/Albuterol Sulfate 2.5 Mg Ampul.Neb 3 Ml INHALATION 3 ml Q6HRT JESSICA Administration Budesonide 0.5 mg 05/09/24 20:00 05/11/24 08:00 Budesonide Respule Neb 0.5 Mg/2 Ml Amp INHALATION 0.5 mg Q12HRT JESSICA Administration Calcium Carbonate 400 mg 05/10/24 09:00 05/11/24 09:46 Calcium Carbonate (Tums) 500 Mg (200 Mg Elemental) PO 05/12/24 10:00 400 mg TID JESSICA Administration Lidocaine HCl 30 ml/ Al Hydrox 0 ml 05/10/24 05:00 05/11/24 09:49 /Mg Hydrox/Simethicone 30 ml/ PO Not Given Diphenhydramine HCl 75 mg Q4HWA [facility] Cyanocobalamin 2,000 mcg 05/10/24 09:00 05/11/24 09:47 Cyanocobalamin 1,000 Mcg Tablet PO 2,000 mcg QAM JESSICA Administration Cyanocobalamin 500 mcg 05/10/24 09:00 05/11/24 09:47 Cyanocobalamin 500 Mcg Tablet PO 500 mcg QAM JESSICA Administration Ergocalciferol 50,000 units 05/19/24 09:00 Ergocalciferol 50,000 Units Capsule PO Mo@0900 [facility] Ferrous Sulfate 325 mg 05/10/24 09:00 05/11/24 09:47 Ferrous Sulfate [address] BY MOUTH 325 mg DAILY JESSICA Administration Filgrastim-Sndz 300 mcg 05/10/24 09:00 05/11/24 09:48 Filgrastim-Sndz 300 Mcg/0.5 Ml Syringe SUB-Q 300 mcg DAILY JESSICA Administration Folic Acid 1 mg 05/10/24 09:00 05/11/24 09:47 Folic Acid 1 Mg Tablet PO 1 mg DAILY JESSICA Administration Guaifenesin 1,200 mg 05/09/24 21:00 05/11/24 09:47 Guaifenesin 12 Hr 600 Mg Tabcr PO 1,200 mg Q12HR JESSICA Administration Heparin Sodium (Beef Lung) 50 units 05/10/24 09:00 05/11/24 09:49 Heparin Flush 50 Units/5 Ml Syringe IV PUSH Not Given QAM JESSICA Heparin Sodium (Beef Lung) 50 units 05/09/24 10:01 Heparin Flush 50 Units/5 Ml Syringe IV PUSH PRN PRN after intermittent infusion Heparin Sodium (Beef Lung) 50 units 05/09/24 10:01 05/11/24 05:07 Heparin Flush 50 Units/5 Ml Syringe IV PUSH 50 units PRN PRN Administration after blood draws Heparin Sodium (Porcine) 500 units 05/09/24 10:01 Heparin Sodium Lock Flush 500 Units/5 Ml Syringe IV PUSH PRN PRN see comments below Ceftriaxone Sodium 1 gm in 50 mls @ 100 mls/hr 05/10/24 09:00 05/11/24 09:47 Rocephin 1 Gm/Ns 50 Ml IVPB 100 mls/hr Q24H JESSICA Administration Azithromycin 500 mg in 250 mls @ 250 mls/hr 05/10/24 10:00 05/10/24 10:38 Zithromax IVPB 250 mls/hr Q24H JESSICA Administration Loperamide HCl 2 mg 05/09/24 21:04 Loperamide Hcl 2 Mg Capsule PO PRN PRN Diarrhea Lorazepam 0.5 mg 05/09/24 16:06 Lorazepam (*Crx) 0.5 Mg Tablet PO Q8H PRN Anxiety Metoprolol Tartrate 12.5 mg 05/09/24 21:00 05/11/24 09:47 Metoprolol Tartrate 12.5 Mg Tablet PO 12.5 mg Q12HR JESSICA Administration Oxycodone HCl 5 mg 05/09/24 16:06 Oxycodone Hcl (*Crx) 5 Mg Tab Ir PO Q6H PRN Breakthrough Pain Oxycodone HCl 40 mg 05/09/24 21:00 05/11/24 09:48 Oxycodone Hcl (*Crx) 40 Mg Tab Sr 12hr PO 40 mg Q12HR JESSICA Administration Pantoprazole Sodium 40 mg 05/10/24 09:00 05/11/24 09:48 Pantoprazole 40 Mg Tablet PO 40 mg QAM JESSICA Administration Pregabalin 225 mg 05/09/24 21:00 05/11/24 09:48 Pregabalin (*Crx) 75 Mg Capsule PO 225 mg Q12HR JESSICA Administration Rivaroxaban 20 mg 05/10/24 17:00 05/10/24 17:09 Rivaroxaban 20 Mg Tablet PO 20 mg DAILY@1700 JESSICA Administration Fluticasone/Salmeterol 2 puff 05/09/24 20:00 05/11/24 08:00 Fluticasone/Salmeterol 230-21 Mcg Inhaler 1 Puff INHALATION 2 puff Q12HRT JESSICA Administration Senna/Docusate Sodium 1 tab 05/10/24 09:00 05/11/24 09:47 Senna/Docusate Sodium Tablet PO 1 tab DAILY JESSICA Administration Sodium Chloride 10 ml 05/09/24 14:00 05/11/24 05:00 Central Line Flush IV PUSH 10 ml Q8HR JESSICA Administration Sodium Chloride 1 applic 05/09/24 21:00 05/10/24 20:51 Sodium Chloride Nasal Gel 14.1 Gm NASAL 1 applic HS JESSICA Administration Sodium Chloride 1 spray 05/10/24 17:00 05/11/24 09:49 Saline 0.65% Demetris Soln 44 Ml Btl NASAL 1 spray BID JESSICA Administration Sodium Chloride 1 spray 05/10/24 09:41 Saline 0.65% Demetris Soln 44 Ml Btl NASAL Q2H PRN Congestion Tamsulosin HCl 0.4 mg 05/10/24 09:00 05/11/24 09:48 Tamsulosin Hcl 0.4 Mg Capsule PO 0.4 mg DAILY JESSICA Administration Triamcinolone Acetonide 1 applic 05/09/24 16:06 Triamcinolone Acet 0.1% Cream 15 Gm Tube TOPICAL QID PRN psioriasis Radiology Results: ITS Impressions Chest X-Ray 05/09/24 10:44 IMPRESSION: 1. Persistent volume loss with chronic opacities in the posterior right mid to upper lung zone on CT. 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 2. No recent interval change in a small right pleural effusion with associated compressive atelectasis in the right lower lobe. 3. Difficult to absolutely exclude superimposed pneumonia however there are no new opacities to more specifically suggest this. Chest CTA 05/09/24 11:19 IMPRESSION: 1. No pulmonary embolism. 2. Bilateral scattered mild new lung disease, composed predominantly of tree-in-bud opacities and small groundglass opacities suspicious for pneumonia 3. Unchanged small right and new small left pleural effusions. 4. A couple regions of chronic consolidation with volume loss in the right mid to upper lung and right lower lung likely atelectasis/scarring related to reported treated lung cancer. 5. Unchanged scattered subcentimeter solid pulmonary nodules and scattered patchy sclerotic bone lesions consistent with metastatic disease. Labs Labs: Laboratory Results - last 24 hr 05/10/24 05/11/24 05/11/24 12:47 00:25 05:13 WBC 1.9 L* 3.2 L 2.9 L RBC 3.32 L 3.26 L 3.09 L Hgb 8.4 L 8.2 L 7.9 L Hct 28.1 L 27.6 L 26.1 L MCV 84.6 84.7 84.5 MCH 25.3 L 25.2 L 25.6 L MCHC 29.9 L 29.7 L 30.3 L RDW 19.7 H 19.7 H 19.7 H Plt Count 153 147 L 145 L MPV 11.0 H 10.5 H 10.6 H Immature Gran % (Auto) 0.5 0.6 H 1.0 H Neut % (Auto) 36.4 L 41.3 L 42.9 L Lymph % (Auto) 40.1 35.2 34.0 Sutter % (Auto) 19.8 H 21.0 H 19.7 H Eos % (Auto) 2.1 1.6 1.7 Baso % (Auto) 1.1 0.3 0.7 Lymph # (Auto) 0.75 L 1.11 1.00 Sutter # (Auto) 0.4 0.7 H 0.6 Eos # (Auto) 0.0 0.1 0.1 Baso # (Auto) 0.0 0.0 0.0 Abs Immat Gran (auto) 0.01 0.02 0.03 Absolute Neuts (auto) 0.7 L 1.3 1.3 Absolute Nucleated RBC 0.000 0.000 0.000 Nucleated RBC % 0.0 0.0 0.0 Platelet Estimate Adequate Slightly decreased Large Platelets Present % Immature Plt Fraction 4.5 5.0 Hypochromasia 1+ 1+ Anisocytosis 1+ 1+ Ovalocytes 1+ 1+ Schistocytes None seen None seen Sodium 136 L 137 136 L Potassium 3.5 3.8 4.0 Chloride 110 H 109 H 109 H Carbon Dioxide 26 24 25 Anion Gap 0 L 4 2 L BUN 6 L 7 L 7 L Creatinine 0.80 1.00 1.00 Estim Creat Clear Calc 91 74 74 Estimated GFR > 60 > 60 > 60 Glucose 101 124 H 122 H Calcium 7.6 L 8.3 L 8.6 Phosphorus 2.8 Vitamin D 25-Hydroxy 112.0 PTH Intact 207.3 H Quality VTE Prophylaxis VTE prophylaxis: mechanical ordered and pharmacologic ordered -Patient's previous records reviewed on admission -ER notes reviewed in detail on admission -discussed all findings and current treatment plan with patient/Family/POA -Consultations reviewed for recommendations -Patient's disposition for safe discharge discussed with rn case manager Dictation performed by [employer]unb direct speech recognition software, therefore corrugated sheet material sheeter variants and typographical errors may occur. Hospitalist MIPS Advance Care Plan I have confirmed that the patient's Advanced Care Plan is present, code status is documented, or surrogate decision maker is listed in patient medical record.: Yes Medication Reconciliation I have utilized all available resources to obtain, update and review the patients current medications (includes all prescriptions, OTC, herbals, cannabis, and nutritional supplements).: Yes The patient is not eligible for med reconciliation; the patient is in a emergent medical situation where delaying treatment would jeopardize the patients health.: No
[2024-05-11] MEDS: AZITHROMYCIN 500 MG/NS 250 ML 500 MG/250 ML BAG 250 MG IVPB (10:48)
[2024-05-11] MEDS: ACIDOPHILUS/BULGARICUS CHEWABLE TABLET 1 TABLET PO ×3 (12:47→20:09)
[2024-05-11] MEDS: FUROSEMIDE INJ 40 MG/4 ML VIAL IV PUSH (14:53)
[2024-05-11] MEDS: RIVAROXABAN 20 MG TABLET PO (17:30)
[2024-05-11 18:59] LABS: Basophils Percent Auto 0.7 % (0.2-1.2); Eosinophils Percent Auto 1.3 % (0-4.4); Hematocrit 26.6 % (42.0-52.0); Immature Granulocyte Absolute 0.21 K/mm3 (0.00-0.031); Immature Platelet Fraction Pct 6.1 % (0.9-11.2); Lymphocytes Absolute Auto 0.98 K/mm3 (0.9-3.2); Lymphocytes Percent Auto 32.8 % (18.3-44.2); Mean Corpuscular HGB Conc 30.1 g/dl (32-36); Mean Corpuscular Hemoglobin 25.5 pg (26-34); Mean Corpuscular Volume 84.7 fl (80-100); Mean Platelet Volume 11.3 fl (7.4-10.4); Monocytes Absolute Auto 0.7 K/mm3 (0.1-0.6); Monocytes Percent Auto 21.7 % (2.6-8.5); Neutrophils Absolute Auto 1.1 K/mm3 (1.3-6.7); Neutrophils Percent Auto 36.5 % (45.5-73.1); Platelet Count Result 142 k/mm3 (150-375); Red Blood Count 3.14 M/mm3 (4.6-6.20); Red Cell Distribution Width 19.6 % (11.5-14.5)
[2024-05-11 19:09] LABS: Anion Gap 8 mmol/L (4-12); Blood Urea Nitrogen 9 mg/dL (9-20); Calcium 9.8 mg/dL (8.4-10.2); Carbon Dioxide 26 mmol/L (22-30); Chloride 106 mmol/L (98-107); Estimated CRCL calculation 82 ml/min; Estimated Glomerular Filt Rate > 60; Glucose 122 mg/dL (65-110); Potassium 3.9 mmol/L (3.4-5.0); Sodium 140 mmol/L (137-145)
[2024-05-11 19:29] LABS: Platelet Estimate Adequate (Adequate)
[2024-05-11 19:30] LABS: Anisocytosis 1+; Hypochromasia 1+
[2024-05-11 19:31] LABS: Ovalocytes 1+; Schistocytes None Seen
[2024-05-12] VITALS (14 sets, daily range): BP systolic 100–118; BP diastolic 50–67; PULSE 90–102; RESP 16–20; TEMP 36.1–36.8; O2SAT 96–100
[2024-05-12] MEDS: IPRATROPIUM 0.5 MG/ALBUTEROL SULFATE 2.5 MG AMPUL.NEB 3 ML INHALATION ×4 (03:03→20:45)
[2024-05-12] MEDS: CENTRAL LINE FLUSH 10 ML IV PUSH ×3 (05:45→21:18)
[2024-05-12] MEDS: ACETAMINOPHEN 325 MG TABLET 650 MG PO (05:46)
[2024-05-12 05:49] LABS: Hematocrit 27.7 % (42.0-52.0); Hemoglobin 8.2 g/dL (14.0-18.0); Mean Corpuscular HGB Conc 29.6 g/dl (32-36); Mean Corpuscular Hemoglobin 24.9 pg (26-34); Mean Corpuscular Volume 84.2 fl (80-100); Mean Platelet Volume 10.4 fl (7.4-10.4); Platelet Count Result 146 k/mm3 (150-375); Red Blood Count 3.29 M/mm3 (4.6-6.20); Red Cell Distribution Width 19.6 % (11.5-14.5); White Blood Count 4.9 K/mm3 (4.5-10.0)
[2024-05-12 06:03] LABS: Anion Gap 4 mmol/L (4-12); Blood Urea Nitrogen 10 mg/dL (9-20); Calcium 9.8 mg/dL (8.4-10.2); Carbon Dioxide 30 mmol/L (22-30); Chloride 104 mmol/L (98-107); Estimated CRCL calculation 74 ml/min; Estimated Glomerular Filt Rate > 60; Glucose 97 mg/dL (65-110); Potassium 3.8 mmol/L (3.4-5.0); Sodium 138 mmol/L (137-145)
[2024-05-12 06:45] LABS: Band Neutrophils Percent 9 % (0-6); Neutrophils Percent Manual 40 % (46-73); Total Cells Counted 100
[2024-05-12 06:46] LABS: Atypical Lymphocytes Present; Basophils Absolute Manual 0.19 K/mm3 (0.0-0.1); Basophils Percent Manual 4 % (0-1); Eosinophils Absolute Manual 0.04 K/mm3 (0.02-0.50); Eosinophils Percent Manual 1 % (0-4); Lymphocytes Absolute Manual 1.76 K/mm3 (1.1-4.5); Lymphocytes Percent Manual 36 % (18-44); Monocytes Absolute Manual 0.49 K/mm3 (0.1-0.90); Monocytes Percent Manual 10 % (3-9); Schistocytes None Seen
[2024-05-12 06:47] LABS: Anisocytosis 1+; Hypochromasia 1+; Ovalocytes 1+
[2024-05-12 06:49] LABS: Large Platelets Present
[2024-05-12 06:51] LABS: Dohle Bodies Present
[2024-05-12 06:53] LABS: Platelet Estimate Adequate (Adequate)
--- NOTE | 2024-05-12 07:59 | P.PNIM_ITS ---
Progress Note: A&P Assessment and Plan (1) Pneumonia: Code(s): J18.9 - Pneumonia, unspecified organism Status: Acute Assessment and Plan: * On 3L O2 at home. Not currently wheezing. He had a productive cough that is resolved and is neutropenic. No fevers * 05/09 CTA small groundglass opacities suspicious negative for PE * Continue Ceftriaxone, Azithromycin * DuoNebs * Has a hx of C-diff, monitor for diarrhea, currently resolved added probiotic * guaifenesin * CPT (2) Neutropenia: Code(s): D70.9 - Neutropenia, unspecified Status: Acute Assessment and Plan: * WBC improving 1.5<1.7<2.7 stable at baseline * history of metastatic adeno carcinoma of the lung * Continuing filgrastim per outpatient oncology recs, Dr. Baez 05/12/24: * WBC 4.5 (3) Epistaxis: Code(s): R04.0 - Epistaxis Status: Acute Assessment and Plan: * Blood count trending down and has some continued scant bleeding when he blows his nose, though minimal * Add ocean spray, continue saline gel, humidified O2 * Restart anticoagulation today and monitor if blood count stable and bleeding resolved 7.4 RESOLVED (4) Chronic anemia: Code(s): D64.9 - Anemia, unspecified Status: Acute Assessment and Plan: * Chronic * intermittent bloody nose * currently on Xarelto * monitor H&H * Transfuse PRBC if Hgb <7.0 * resumed xarelto 05/10 STABLE (5) Lung cancer m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: Code(s): C34.90 - Malignant neoplasm of unspecified part of unspecified bronchus or lung; C79.51 - Secondary malignant neoplasm of bone Status: Acute Assessment and Plan: * Follows with Dr. Baez outpatient * Has a Port, currently accessed * Treatment of neutropenia as noted * Magic mouthwash for mouth sores * Reports decreased mobility, cane at baseline: PT/OT (6) Chronic respiratory failure with hypoxia, on home oxygen therapy: Code(s): J96.11 - Chronic respiratory failure with hypoxia; Z99.81 - Dependence on supplemental oxygen Status: Acute Assessment and Plan: * On 3L Home O2. Has a bubbler at home * Humidified O2 for nosebleed (7) Chronic obstructive pulmonary disease: Code(s): J44.9 - Chronic obstructive pulmonary disease, unspecified Status: Acute Assessment and Plan: * Follows with pulmonary at [facility] * Home meds: fluticasone-salmeterol 2 puffs BID, budesonide nebs BID, Albuterol prn * added 40mg PO daily (8) Chronic anticoagulation: Code(s): Z79.01 - supervisor intermediates (current) use of anticoagulants Status: Acute Assessment and Plan: * Hx DVT and afib * Holding Rivaroxaban * Resume this afternoon if blood count stable 05/11/24: * Xarelto resumed * monitor H&H (9) Hypocalcemia: Code(s): E83.51 - Hypocalcemia Status: Acute Assessment and Plan: * Calcium low, 6.8 * Check ionized calcium, vitamin D, PTH RESOLVED (10) Lower extremity edema: Code(s): R60.0 - Localized edema Status: Acute Assessment and Plan: * 1+ BLE * LAsix 40 daily * elevated legs when at rest Plan Code status: Full code per patient DVT prophylaxis: Xarelto Stress ulcer prophylaxis: Protonix 40 daily PT/OT notes: PT/OT at baseline Disposition: patient continues admission for medical management of pneumonia and nose bleeds on chronic anticoagulation patient with history of metastatic adeno carcinoma and wears 3 L supplemental oxygen chronically. Plan is for patient to return home when medically stable. Time Spent With Patient Time with patient: 15 - 25 minutes Subjective Date/time seen: 05/12/24 07:59 Interval history: patient is a 63-year-old male who was it mid it for further evaluation and treatment of pneumonia patient with metastatic adenocarcinoma of the lung and chronic respiratory failure with hypoxia. 05/12/24: Patient reports continued SOB and difficulty breathing will get CPT, also report difficulty swallowing but nothing gets stuck and he doesn't vomit it up. Hgb stable no further nose bleeds. Review of Systems Review of Systems: 12 systems were reviewed and are negativ e except for as per HPI. All systems reviewed & are unremarkable except as noted in HPI and below Exam Narrative: General: appears comfortable, in no acute distress Respiratory: breathing is labored with even chest rise/fall, lungs with wheezing throughout and productive cough Cardiovascular: Rate and rhythm regular, normal s1s2, no murmur Abdomen: Soft, round, non-tender, active bowel sounds Extremities: No cyanosis, edema, clubbing. Pulses 2/2 Neuro: A&O x 4 Skin: 1+ BLE edema Objective Data Vital Signs Vital Signs: Vital Signs - 24 hr 05/11/24 08:02 05/11/24 08:03 05/11/24 08:14 Temperature Pulse Rate 75 77 Respiratory Rate 20 20 Blood Pressure Pulse Oximetry 97 Oxygen Delivery Nasal Cannula Oxygen Flow Rate 3.5 Fraction of Inspired Oxygen 05/11/24 09:25 05/11/24 09:47 05/11/24 08:00 Temperature Pulse Rate 77 Respiratory Rate Blood Pressure Pulse Oximetry 97 Oxygen Delivery Nasal Cannula Nasal Cannula Oxygen Flow Rate 4 4 Fraction of Inspired Oxygen 05/11/24 13:37 05/11/24 13:44 05/11/24 14:00 Temperature 97.8 F Pulse Rate 80 76 80 Respiratory Rate 20 20 16 Blood Pressure 110/60 Pulse Oximetry 99 Oxygen Delivery Oxygen Flow Rate Fraction of Inspired Oxygen 05/11/24 14:31 05/11/24 20:44 05/11/24 21:21 Temperature 97 F L Pulse Rate 89 81 Respiratory Rate 20 20 Blood Pressure 104/57 L Pulse Oximetry 99 Oxygen Delivery High Flow Nasal Cannula Oxygen Flow Rate 4 Fraction of Inspired Oxygen 05/11/24 21:25 05/11/24 21:36 05/11/24 20:00 Temperature Pulse Rate 78 81 Respiratory Rate 20 20 Blood Pressure Pulse Oximetry 96 96 Oxygen Delivery Nasal Cannula Nasal Cannula Oxygen Flow Rate 3.5 4 Fraction of Inspired Oxygen 34 05/12/24 03:03 05/12/24 06:00 Temperature 97.1 F L Pulse Rate 91 92 Respiratory Rate 20 20 Blood Pressure 100/50 L Pulse Oximetry 100 Oxygen Delivery Oxygen Flow Rate Fraction of Inspired Oxygen Intake/Output Intake/Output: Intake & Output 05/09/24 05/10/24 05/11/24 05/12/24 23:59 23:59 23:59 23:59 Intake Total 1540.0 2049 1460 400 Output Total 200 Balance 1340.0 2049 146 400 Meds/Results Medications: Active Medications Generic Name Dose Route Start Last Admin Trade Name Freq PRN Reason Stop Dose Admin Acetaminophen 650 mg 05/09/24 14:44 05/12/24 05:46 Acetaminophen 325 Mg Tablet PO 650 mg Q6H PRN Administration Mild Pain (1-3) or Fever Albuterol 2 puff 05/09/24 16:06 Albuterol Sulfate (*Sp) Aerosol 1 Puff INHALATION Q4H PRN Shortness Of Breath Or Wheezing Albuterol/Ipratropium 3 ml 05/09/24 14:00 05/12/24 03:03 Ipratropium 0.5 Mg/Albuterol Sulfate 2.5 Mg Ampul.Neb 3 Ml INHALATION 3 ml Q6HRT JESSICA Administration Budesonide 0.5 mg 05/09/24 20:00 05/11/24 21:21 Budesonide Respule Neb 0.5 Mg/2 Ml Amp INHALATION 0.5 mg Q12HRT JESSICA Administration Calcium Carbonate 400 mg 05/10/24 09:00 05/11/24 17:30 Calcium Carbonate (Tums) 500 Mg (200 Mg Elemental) PO 05/12/24 10:00 400 mg TID JESSICA Administration Lidocaine HCl 30 ml/ Al Hydrox 0 ml 05/10/24 05:00 05/12/24 05:44 /Mg Hydrox/Simethicone 30 ml/ PO Not Given Diphenhydramine HCl 75 mg Q4HWA JESSICA Cyanocobalamin 2,000 mcg 05/10/24 09:00 05/11/24 09:47 Cyanocobalamin 1,000 Mcg Tablet PO 2,000 mcg QAM JESSICA Administration Cyanocobalamin 500 mcg 05/10/24 09:00 05/11/24 09:47 Cyanocobalamin 500 Mcg Tablet PO 500 mcg QAM JESSICA Administration Ergocalciferol 50,000 units 05/19/24 09:00 Ergocalciferol 50,000 Units Capsule PO Mo@0900 JESSICA Ferrous Sulfate 325 mg 05/10/24 09:00 05/11/24 09:47 Ferrous Sulfate [address] BY MOUTH 325 mg DAILY JESSICA Administration Filgrastim-Sndz 300 mcg 05/10/24 09:00 05/11/24 09:48 Filgrastim-Sndz 300 Mcg/0.5 Ml Syringe SUB-Q 300 mcg DAILY JESSICA Administration Folic Acid 1 mg 05/10/24 09:00 05/11/24 09:47 Folic Acid 1 Mg Tablet PO 1 mg DAILY JESSICA Administration Furosemide 40 mg 05/11/24 14:00 05/11/24 14:53 Furosemide Inj 40 Mg/4 Ml Vial IV PUSH 40 mg DAILY JESSICA Administration Guaifenesin 1,200 mg 05/09/24 21:00 05/11/24 20:09 Guaifenesin 12 Hr 600 Mg Tabcr PO 1,200 mg Q12HR JESSICA Administration Heparin Sodium (Beef Lung) 50 units 05/10/24 09:00 05/11/24 09:49 Heparin Flush 50 Units/5 Ml Syringe IV PUSH Not Given QAM JESSICA Heparin Sodium (Beef Lung) 50 units 05/09/24 10:01 Heparin Flush 50 Units/5 Ml Syringe IV PUSH PRN PRN after intermittent infusion Heparin Sodium (Beef Lung) 50 units 05/09/24 10:01 05/11/24 18:44 Heparin Flush 50 Units/5 Ml Syringe IV PUSH 50 units PRN PRN Administration after blood draws Heparin Sodium (Porcine) 500 units 05/09/24 10:01 Heparin Sodium Lock Flush 500 Units/5 Ml Syringe IV PUSH PRN PRN see comments below Ceftriaxone Sodium 1 gm in 50 mls @ 100 mls/hr 05/10/24 09:00 05/11/24 10:17 Rocephin 1 Gm/Ns 50 Ml IVPB Infused Q24H JESSICA Infusion Azithromycin 500 mg in 250 mls @ 250 mls/hr 05/10/24 10:00 05/11/24 11:48 Zithromax IVPB Infused Q24H JESSICA Infusion Lactobacillus Acidophilus 1 tablet 05/11/24 13:00 05/11/24 20:09 Acidophilus/Bulgaricus Chewable Tablet PO 1 tablet QID JESSICA Administration Loperamide HCl 2 mg 05/09/24 21:04 Loperamide Hcl 2 Mg Capsule PO PRN PRN Diarrhea Lorazepam 0.5 mg 05/09/24 16:06 Lorazepam (*Crx) 0.5 Mg Tablet PO Q8H PRN Anxiety Metoprolol Tartrate 12.5 mg 05/09/24 21:00 05/11/24 20:09 Metoprolol Tartrate 12.5 Mg Tablet PO 12.5 mg Q12HR JESSICA Administration Oxycodone HCl 5 mg 05/09/24 16:06 Oxycodone Hcl (*Crx) 5 Mg Tab Ir PO Q6H PRN Breakthrough Pain Oxycodone HCl 40 mg 05/09/24 21:00 05/11/24 20:09 Oxycodone Hcl (*Crx) 40 Mg Tab Sr 12hr PO 40 mg Q12HR JESSICA Administration Pantoprazole Sodium 40 mg 05/10/24 09:00 05/11/24 09:48 Pantoprazole 40 Mg Tablet PO 40 mg QAM JESSICA Administration Prednisone 40 mg 05/12/24 08:00 Prednisone 20 Mg Tablet PO DAILY@0800 [facility] Pregabalin 225 mg 05/09/24 21:00 05/11/24 20:09 Pregabalin (*Crx) 75 Mg Capsule PO 225 mg Q12HR JESSICA Administration Rivaroxaban 20 mg 05/10/24 17:00 05/11/24 17:30 Rivaroxaban 20 Mg Tablet PO 20 mg DAILY@1700 [facility] Administration Fluticasone/Salmeterol 2 puff 05/09/24 20:00 05/11/24 21:21 Fluticasone/Salmeterol 230-21 Mcg Inhaler 1 Puff INHALATION 2 puff Q12HRT [facility] Administration Senna/Docusate Sodium 1 tab 05/10/24 09:00 05/11/24 09:47 Senna/Docusate Sodium Tablet PO 1 tab DAILY JESSICA Administration Sodium Chloride 10 ml 05/09/24 14:00 05/12/24 05:45 Central Line Flush IV PUSH 10 ml Q8HR JESSICA Administration Sodium Chloride 1 applic 05/09/24 21:00 05/11/24 20:11 Sodium Chloride Nasal Gel 14.1 Gm NASAL Not Given HS JESSICA Sodium Chloride 1 spray 05/10/24 17:00 05/11/24 17:30 Saline 0.65% Demetris Soln 44 Ml Btl NASAL 1 spray BID JESSICA Administration Sodium Chloride 1 spray 05/10/24 09:41 Saline 0.65% Demetris Soln 44 Ml Btl NASAL Q2H PRN Congestion Tamsulosin HCl 0.4 mg 05/10/24 09:00 05/11/24 09:48 Tamsulosin Hcl 0.4 Mg Capsule PO 0.4 mg DAILY JESSICA Administration Triamcinolone Acetonide 1 applic 05/09/24 16:06 Triamcinolone Acet 0.1% Cream 15 Gm Tube TOPICAL QID PRN psioriasis Radiology Results: ITS Impressions Chest X-Ray 05/09/24 10:44 IMPRESSION: 1. Persistent volume loss with chronic opacities in the posterior right mid to upper lung zone on CT. 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 2. No recent interval change in a small right pleural effusion with associated compressive atelectasis in the right lower lobe. 3. Difficult to absolutely exclude superimposed pneumonia however there are no new opacities to more specifically suggest this. Chest CTA 05/09/24 11:19 IMPRESSION: 1. No pulmonary embolism. 2. Bilateral scattered mild new lung disease, composed predominantly of tree-in-bud opacities and small groundglass opacities suspicious for pneumonia 3. Unchanged small right and new small left pleural effusions. 4. A couple regions of chronic consolidation with volume loss in the right mid to upper lung and right lower lung likely atelectasis/scarring related to reported treated lung cancer. 5. Unchanged scattered subcentimeter solid pulmonary nodules and scattered patchy sclerotic bone lesions consistent with metastatic disease. Labs Labs: Laboratory Results - last 24 hr 05/11/24 05/12/24 18:44 05:32 WBC 3.0 L 4.9 RBC 3.14 L 3.29 L Hgb 8.0 L 8.2 L Hct 26.6 L 27.7 L MCV 84.7 84.2 MCH 25.5 L 24.9 L MCHC 30.1 L 29.6 L RDW 19.6 H 19.6 H Plt Count 142 L 146 L MPV 11.3 H 10.4 Immature Gran % (Auto) 7.0 H Not Reportable Neut % (Auto) 36.5 L Not Reportable Lymph % (Auto) 32.8 Not Reportable [place] % (Auto) 21.7 H Not Reportable Eos % (Auto) 1.3 Not Reportable Baso % (Auto) 0.7 Not Reportable Lymph # (Auto) 0.98 Not Reportable [place] # (Auto) 0.7 H Not Reportable Eos # (Auto) 0.0 Not Reportable Baso # (Auto) 0.0 Not Reportable Abs Immat Gran (auto) 0.21 H Not Reportable Absolute Neuts (auto) 1.1 L Not Reportable Absolute Nucleated RBC 0.000 Not Reportable Total Counted 100 Neutrophils % (Manual) 40 L Band Neutrophils % 9 H Lymphocytes % (Manual) 36 Monocytes % (Manual) 10 H Eosinophils % (Manual) 1 Basophils % (Manual) 4 H Nucleated RBC % 0.0 Not Reportable Abs Neuts (Manual) 2.40 Abs Lymphs (Manual) 1.76 Abs Monocytes (Manual) 0.49 Absolute Eos (Manual) 0.04 Abs Basophils (Manual) 0.19 H Atypical Lymphocytes Present Dohle Bodies Present Platelet Estimate Adequate Adequate Large Platelets Present % Immature Plt Fraction 6.1 Hypochromasia 1+ 1+ Anisocytosis 1+ 1+ Ovalocytes 1+ 1+ Schistocytes None seen None seen Sodium 140 138 Potassium 3.9 3.8 Chloride 106 104 Carbon Dioxide 26 30 Anion Gap 8 4 BUN 9 10 Creatinine 0.90 1.00 Estim Creat Clear Calc 82 74 Estimated GFR > 60 > 60 Glucose 122 H 97 Calcium 9.8 9.8 Quality VTE Prophylaxis VTE prophylaxis: mechanical ordered and pharmacologic ordered -Patient's previous records reviewed on admission -ER notes reviewed in detail on admission -discussed all findings and current treatment plan with patient/Family/POA -Consultations reviewed for recommendations -Patient's disposition for safe discharge discussed with rehabilitation case coordinator Dictation performed by [facility] Fluency direct speech recognition software, therefore five piece expansion maker hand variants and typographical errors may occur. Hospitalist MIPS Advance Care Plan I have confirmed that the patient's Advanced Care Plan is present, code status is documented, or surrogate decision maker is listed in patient medical record.: Yes Medication Reconciliation I have utilized all available resources to obtain, update and review the patients current medications (includes all prescriptions, OTC, herbals, cannabis, and nutritional supplements).: Yes The patient is not eligible for med reconciliation; the patient is in a emergent medical situation where delaying treatment would jeopardize the patients health.: No
[2024-05-12] MEDS: FLUTICASONE/SALMETEROL 230-21 MCG INHALER 1 PUFF 2 PUFF INHALATION ×2 (08:24→20:45)
[2024-05-12] MEDS: BUDESONIDE RESPULE NEB 0.5 MG/2 ML AMP INHALATION ×2 (08:24→20:45)
[2024-05-12] MEDS: predniSONE 20 MG TABLET 40 MG PO (09:25)
[2024-05-12] MEDS: FUROSEMIDE INJ 40 MG/4 ML VIAL IV PUSH (09:26)
[2024-05-12] MEDS: ACIDOPHILUS/BULGARICUS CHEWABLE TABLET 1 TABLET PO ×4 (09:38→21:20)
[2024-05-12] MEDS: METOPROLOL TARTRATE 12.5 MG TABLET PO ×2 (09:38→21:19)
[2024-05-12] MEDS: CALCIUM CARBONATE (TUMS) 500 MG (200 MG ELEMENTAL) 400 MG PO (09:38)
[2024-05-12] MEDS: SENNA/DOCUSATE SODIUM TABLET 1 TAB PO (09:38)
[2024-05-12] MEDS: PANTOPRAZOLE 40 MG TABLET PO (09:38)
[2024-05-12] MEDS: PREGABALIN (*CRX) 75 MG CAPSULE 225 MG PO ×2 (09:38→21:19)
[2024-05-12] MEDS: FERROUS SULFATE 325 MG TABLET DR BY MOUTH (09:39)
[2024-05-12] MEDS: oxyCODONE HCL (*CRX) 40 MG TAB SR 12HR PO ×2 (09:39→21:19)
[2024-05-12] MEDS: CYANOCOBALAMIN 1,000 MCG TABLET 2000 MCG PO (09:39)
[2024-05-12] MEDS: FOLIC ACID 1 MG TABLET PO (09:39)
[2024-05-12] MEDS: CYANOCOBALAMIN 500 MCG TABLET PO (09:39)
[2024-05-12] MEDS: TAMSULOSIN HCL 0.4 MG CAPSULE PO (09:39)
[2024-05-12] MEDS: FILGRASTIM-SNDZ 300 MCG/0.5 ML SYRINGE SUB-Q (09:40)
[2024-05-12] MEDS: guaiFENesin 12 HR 600 MG TABCR 1200 MG PO ×2 (09:40→21:20)
[2024-05-12] MEDS: SALINE 0.65% NAS SOLN 44 ML BTL 1 SPRAY NASAL ×2 (09:41→16:24)
[2024-05-12] MEDS: AZITHROMYCIN 500 MG/NS 250 ML 500 MG/250 ML BAG 250 MG IVPB (09:59)
[2024-05-12 15:42] LABS: Ionized Calcium 4.7 mg/dL (4.7-5.5)
[2024-05-12] MEDS: RIVAROXABAN 20 MG TABLET PO (16:24)
[2024-05-12] MEDS: MAGNESIUM PO (16:26)
[2024-05-12] MEDS: ALUMINUM PO (16:26)
[2024-05-12] MEDS: SIMETH PO (16:26)
[2024-05-12] MEDS: [UNRECOGNIZED DRUG - OTHER] PO (16:26)
[2024-05-12] MEDS: VISC PO (16:26)
[2024-05-12] MEDS: LIDOCAINE HCL 2% PO (16:26)
[2024-05-12 18:55] LABS: Hematocrit 28.3 % (42.0-52.0); Hemoglobin 8.5 g/dL (14.0-18.0); Mean Corpuscular Hemoglobin 25.3 pg (26-34); Mean Corpuscular Volume 84.2 fl (80-100); Mean Platelet Volume 11.1 fl (7.4-10.4); Platelet Count Result 169 k/mm3 (150-375); Red Blood Count 3.36 M/mm3 (4.6-6.20); Red Cell Distribution Width 19.6 % (11.5-14.5); White Blood Count 11.5 K/mm3 (4.5-10.0)
[2024-05-12 19:09] LABS: Anion Gap 3 mmol/L (4-12); Blood Urea Nitrogen 12 mg/dL (9-20); Carbon Dioxide 32 mmol/L (22-30); Chloride 101 mmol/L (98-107); Estimated CRCL calculation 63 ml/min; Estimated Glomerular Filt Rate > 60; Glucose 197 mg/dL (65-110); Potassium 4.7 mmol/L (3.4-5.0); Sodium 136 mmol/L (137-145)
[2024-05-12 19:22] LABS: Band Neutrophils Percent 15 % (0-6); Basophils Absolute Manual 0.11 K/mm3 (0.0-0.1); Basophils Percent Manual 1 % (0-1); Lymphocytes Absolute Manual 1.26 K/mm3 (1.1-4.5); Monocytes Absolute Manual 1.26 K/mm3 (0.1-0.90); Monocytes Percent Manual 11 % (3-9); Neutrophils Absolute Manual 8.85 K/mm3 (1.3-6.7); Neutrophils Percent Manual 62 % (46-73); Platelet Estimate Adequate (Adequate); Total Cells Counted 100
[2024-05-12 19:23] LABS: Platelet Clumps Present
[2024-05-12 19:24] LABS: Anisocytosis 2+; Hypochromasia 1+; Schistocytes None Seen
[2024-05-12] MEDS: SODIUM CHLORIDE NASAL GEL 14.1 GM 1 APPLIC NASAL (21:21)
[2024-05-13] VITALS (15 sets, daily range): BP systolic 95–109; BP diastolic 56–62; PULSE 79–101; RESP 14–20; TEMP 36.5–36.8; O2SAT 98–100
[2024-05-13] MEDS: IPRATROPIUM 0.5 MG/ALBUTEROL SULFATE 2.5 MG AMPUL.NEB 3 ML INHALATION ×4 (01:56→21:57)
--- NOTE | 2024-05-13 03:25 | PC.NURSE ---
PT CALLED NURSE TO ROOM TO ASSESS THROAT. PT STATED IT WAS INCREASINGLY PAINFUL AND DIFFICULT TO SWALLOW. ASSESSED THE THROAT WITH LIGHT AND AIRWAY WAS CLEAR AND OPEN. PT HAS HX ORAL SORES RT CANCER AND IS DOING THE LIDOCAINE SWISH AND SPIT. PT SAID HE FEELS LIKE HE CANNOT SWALLOW ANYTHING WITHOUT CHOKING AND IS FEARFUL HE MAY ASPIRATE. ORDERED BEDSIDE SWALLOW EVAL FOR DAYSHIFT. PT CURRENTLY DRINKING A WHITE SODA STATING THIS IS THE ONLY THING HE CAN TOLERATE
[2024-05-13] MEDS: HEPARIN SODIUM LOCK FLUSH 500 UNITS/5 ML SYRINGE IV PUSH ×2 (05:30→19:52)
[2024-05-13] MEDS: CENTRAL LINE FLUSH 10 ML IV PUSH ×3 (05:30→20:00)
[2024-05-13] MEDS: SIMETH PO (05:37)
[2024-05-13] MEDS: [UNRECOGNIZED DRUG - OTHER] PO (05:37)
[2024-05-13] MEDS: VISC PO (05:37)
[2024-05-13] MEDS: LIDOCAINE HCL 2% PO (05:37)
[2024-05-13] MEDS: MAGNESIUM PO (05:37)
[2024-05-13] MEDS: ALUMINUM PO (05:37)
[2024-05-13 05:48] LABS: Hematocrit 26.3 % (42.0-52.0); Hemoglobin 7.8 g/dL (14.0-18.0); Mean Corpuscular HGB Conc 29.7 g/dl (32-36); Mean Corpuscular Volume 84.3 fl (80-100); Mean Platelet Volume 11.5 fl (7.4-10.4); Platelet Count Result 180 k/mm3 (150-375); Red Blood Count 3.12 M/mm3 (4.6-6.20); Red Cell Distribution Width 19.9 % (11.5-14.5); White Blood Count 16.3 K/mm3 (4.5-10.0)
[2024-05-13 06:01] LABS: Anion Gap 2 mmol/L (4-12); Blood Urea Nitrogen 14 mg/dL (9-20); Calcium 9.2 mg/dL (8.4-10.2); Carbon Dioxide 33 mmol/L (22-30); Chloride 102 mmol/L (98-107); Estimated CRCL calculation 68 ml/min; Estimated Glomerular Filt Rate > 60; Glucose 120 mg/dL (65-110); Sodium 137 mmol/L (137-145)
[2024-05-13 06:39] LABS: Band Neutrophils Percent 15 % (0-6); Basophils Absolute Manual 0.16 K/mm3 (0.0-0.1); Basophils Percent Manual 1 % (0-1); Lymphocytes Absolute Manual 2.11 K/mm3 (1.1-4.5); Lymphocytes Percent Manual 13 % (18-44); Monocytes Absolute Manual 1.63 K/mm3 (0.1-0.90); Monocytes Percent Manual 10 % (3-9); Neutrophils Absolute Manual 12.38 K/mm3 (1.3-6.7); Neutrophils Percent Manual 61 % (46-73); Total Cells Counted 100
[2024-05-13 06:40] LABS: Dohle Bodies Present; Platelet Estimate Adequate (Adequate); Schistocytes None Seen
[2024-05-13 06:43] LABS: Hypochromasia 1+
[2024-05-13 06:46] LABS: Large Platelets Present
[2024-05-13 06:47] LABS: Atypical Lymphocytes Present
[2024-05-13 06:48] LABS: Anisocytosis 1+
--- NOTE | 2024-05-13 07:14 | P.PNIM_ITS ---
Progress Note: A&P Assessment and Plan (1) Pneumonia: Code(s): J18.9 - Pneumonia, unspecified organism Status: Acute Assessment and Plan: * On 3L O2 at home. Not currently wheezing. He had a productive cough that is resolved and is neutropenic. No fevers * 05/09 CTA small groundglass opacities suspicious negative for PE * Continue Ceftriaxone, Azithromycin * DuoNebs * Has a hx of C-diff, monitor for diarrhea, currently resolved added probiotic * guaifenesin * CPT (2) Neutropenia: Code(s): D70.9 - Neutropenia, unspecified Status: Acute Assessment and Plan: * WBC improving 1.5<1.7<2.7 stable at baseline * history of metastatic adeno carcinoma of the lung * Continuing filgrastim per outpatient oncology recs, Dr. Baez 05/12/24: * WBC 4.5 RESOLVED (3) Epistaxis: Code(s): R04.0 - Epistaxis Status: Acute Assessment and Plan: * Blood count trending down and has some continued scant bleeding when he blows his nose, though minimal * Add ocean spray, continue saline gel, humidified O2 * Restart anticoagulation today and monitor if blood count stable and bleeding resolved 7.4 RESOLVED (4) Chronic anemia: Code(s): D64.9 - Anemia, unspecified Status: Acute Assessment and Plan: * Chronic * intermittent bloody nose * currently on Xarelto * monitor H&H * Transfuse PRBC if Hgb <7.0 * resumed xarelto 05/10 STABLE (5) Lung cancer m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: Code(s): C34.90 - Malignant neoplasm of unspecified part of unspecified bronchus or lung; C79.51 - Secondary malignant neoplasm of bone Status: Acute Assessment and Plan: * Follows with Dr. Baez outpatient * Has a Port, currently accessed * Treatment of neutropenia as noted * Magic mouthwash for mouth sores * Reports decreased mobility, cane at baseline: PT/OT (6) Chronic respiratory failure with hypoxia, on home oxygen therapy: Code(s): J96.11 - Chronic respiratory failure with hypoxia; Z99.81 - Dependence on supplemental oxygen Status: Acute Assessment and Plan: * On 3L Home O2. 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 Status: Acute Assessment and Plan: * Hx DVT and afib * Holding Rivaroxaban * Resume this afternoon if blood count stable 05/11/24: * Xarelto resumed * monitor H&H (9) Hypocalcemia: Code(s): E83.51 - Hypocalcemia Status: Acute Assessment and Plan: * Calcium low, 6.8 * Check ionized calcium, vitamin D, PTH RESOLVED (10) Lower extremity edema: Code(s): R60.0 - Localized edema Status: Acute Assessment and Plan: * 1+ BLE * LAsix 40 daily * elevated legs when at rest Plan Code status: Full code per patient DVT prophylaxis: Xarelto Stress ulcer prophylaxis: Protonix 40 daily PT/OT notes: PT/OT at baseline Disposition: patient continues admission for medical management of pneumonia and nose bleeds on chronic anticoagulation patient with history of metastatic adeno carcinoma and wears 3 L supplemental oxygen chronically. Plan is for patient to return home when medically stable. Will need referral to GI for EGD outpatient Time Spent With Patient Time with patient: 15 - 25 minutes Subjective Date/time seen: 05/13/24 07:14 Interval history: patient is a 63-year-old male who was it mid it for further evaluation and treatment of pneumonia patient with metastatic adenocarcinoma of the lung and chronic respiratory failure with hypoxia. 05/13/24: SOB improving but still feels aweful weaned to home oxygen requirements. Denies CP, dizziness, N/V. Reports some difficulty with swallowing but able to get food down plan for f/u outpatient with GI unless worsening. Review of Systems Review of Systems: 12 systems were reviewed and are negativ e except for as per HPI. All systems reviewed & are unremarkable except as noted in HPI and below Exam Narrative: General: appears comfortable, in no acute distress Respiratory: breathing is labored with even chest rise/fall, lungs with wheezing throughout improving and productive cough Cardiovascular: Rate and rhythm regular, normal s1s2, no murmur Abdomen: Soft, round, non-tender, active bowel sounds Extremities: No cyanosis, edema, clubbing. Pulses 2/2 Neuro: A&O x 4 Skin: 1+ BLE edema Objective Data Vital Signs Vital Signs: Vital Signs - 24 hr 05/12/24 08:24 05/12/24 08:24 05/12/24 08:33 Temperature Pulse Rate 90 90 Respiratory Rate 20 20 Blood Pressure Pulse Oximetry 98 Oxygen Delivery Nasal Cannula Oxygen Flow Rate 3.5 05/12/24 09:38 05/12/24 09:40 05/12/24 13:26 Temperature Pulse Rate 90 101 H Respiratory Rate 20 20 Blood Pressure Pulse Oximetry 98 Oxygen Delivery Nasal Cannula Oxygen Flow Rate 3.5 05/12/24 13:38 05/12/24 14:00 05/12/24 20:46 Temperature 98.2 F Pulse Rate 102 H 100 Respiratory Rate 20 16 Blood Pressure 118/67 Pulse Oximetry 96 97 Oxygen Delivery Nasal Cannula Oxygen Flow Rate 3.5 05/12/24 20:46 05/12/24 21:03 05/12/24 21:19 Temperature Pulse Rate 95 98 98 Respiratory Rate 20 20 Blood Pressure Pulse Oximetry Oxygen Delivery Oxygen Flow Rate 05/12/24 20:00 05/12/24 21:33 05/13/24 01:58 Temperature 97 F L Pulse Rate 99 94 Respiratory Rate 20 20 Blood Pressure 106/56 L Pulse Oximetry 97 97 Oxygen Delivery Nasal Cannula Oxygen Flow Rate 4 05/13/24 02:09 05/13/24 06:00 Temperature 98 F Pulse Rate 101 H 80 Respiratory Rate 20 20 Blood Pressure 95/58 L Pulse Oximetry 100 Oxygen Delivery Oxygen Flow Rate Intake/Output Intake/Output: Intake & Output 05/10/24 05/11/24 05/12/24 05/13/24 23:59 23:59 23:59 23:59 Intake Total 2049 1460 2760 200 Balance 2049 1460 2760 200 Meds/Results Medications: Active Medications Generic Name Dose Route Start Last Admin Trade Name Freq PRN Reason Stop Dose Admin Acetaminophen 650 mg 05/09/24 14:44 05/12/24 05:46 Acetaminophen 325 Mg Tablet PO 650 mg Q6H PRN Administration Mild Pain (1-3) or Fever Albuterol 2 puff 05/09/24 16:06 Albuterol Sulfate (*Sp) Aerosol 1 Puff INHALATION Q4H PRN Shortness Of Breath Or Wheezing Albuterol/Ipratropium 3 ml 05/09/24 14:00 05/13/24 01:56 Ipratropium 0.5 Mg/Albuterol Sulfate 2.5 Mg Ampul.Neb 3 Ml INHALATION 3 ml Q6HRT JESSICA Administration Azithromycin 500 mg 05/13/24 09:00 Azithromycin 250 Mg Tablet PO 05/13/24 09:01 ONCE ONE Budesonide 0.5 mg 05/09/24 20:00 05/12/24 20:45 Budesonide Respule Neb 0.5 Mg/2 Ml Amp INHALATION 0.5 mg Q12HRT JESSICA Administration Lidocaine HCl 30 ml/ Al Hydrox 0 ml 05/10/24 05:00 05/13/24 05:37 /Mg Hydrox/Simethicone 30 ml/ PO 5 ml Diphenhydramine HCl 75 mg Q4HWA JESSICA Administration Cyanocobalamin 2,000 mcg 05/10/24 09:00 05/12/24 09:39 Cyanocobalamin 1,000 Mcg Tablet PO 2,000 mcg QAM JESSICA Administration Cyanocobalamin 500 mcg 05/10/24 09:00 05/12/24 09:39 Cyanocobalamin 500 Mcg Tablet PO 500 mcg QAM JESSICA Administration Ergocalciferol 50,000 units 05/19/24 09:00 Ergocalciferol 50,000 Units Capsule PO Mo@0900 JESSICA Ferrous Sulfate 325 mg 05/10/24 09:00 05/12/24 09:39 Ferrous Sulfate [address] BY MOUTH 325 mg DAILY JESSICA Administration Folic Acid 1 mg 05/10/24 09:00 05/12/24 09:39 Folic Acid 1 Mg Tablet PO 1 mg DAILY JESSICA Administration Furosemide 40 mg 05/11/24 14:00 05/12/24 09:26 Furosemide Inj 40 Mg/4 Ml Vial IV PUSH 40 mg DAILY JESSICA Administration Guaifenesin 1,200 mg 05/09/24 21:00 05/12/24 21:20 Guaifenesin 12 Hr 600 Mg Tabcr PO 1,200 mg Q12HR JESSICA Administration Heparin Sodium (Beef Lung) 50 units 05/10/24 09:00 05/12/24 09:26 Heparin Flush 50 Units/5 Ml Syringe IV PUSH 50 units QAM JESSICA Administration Heparin Sodium (Beef Lung) 50 units 05/09/24 10:01 Heparin Flush 50 Units/5 Ml Syringe IV PUSH PRN PRN after intermittent infusion Heparin Sodium (Beef Lung) 50 units 05/09/24 10:01 05/12/24 18:42 Heparin Flush 50 Units/5 Ml Syringe IV PUSH 50 units PRN PRN Administration after blood draws Heparin Sodium (Porcine) 500 units 05/09/24 10:01 05/13/24 05:30 Heparin Sodium Lock Flush 500 Units/5 Ml Syringe IV PUSH 500 units PRN PRN Administration see comments below Ceftriaxone Sodium 1 gm in 50 mls @ 100 mls/hr 05/10/24 09:00 05/12/24 09:59 Rocephin 1 Gm/Ns 50 Ml IVPB Infused Q24H JESSICA Infusion Lactobacillus Acidophilus 1 tablet 05/11/24 13:00 05/12/24 21:20 Acidophilus/Bulgaricus Chewable Tablet PO 1 tablet QID JESSICA Administration Loperamide HCl 2 mg 05/09/24 21:04 Loperamide Hcl 2 Mg Capsule PO PRN PRN Diarrhea Lorazepam 0.5 mg 05/09/24 16:06 Lorazepam (*Crx) 0.5 Mg Tablet PO Q8H PRN Anxiety Metoprolol Tartrate 12.5 mg 05/09/24 21:00 05/12/24 21:19 Metoprolol Tartrate 12.5 Mg Tablet PO 12.5 mg Q12HR JESSICA Administration Oxycodone HCl 5 mg 05/09/24 16:06 Oxycodone Hcl (*Crx) 5 Mg Tab Ir PO Q6H PRN Breakthrough Pain Oxycodone HCl 40 mg 05/09/24 21:00 05/12/24 21:19 Oxycodone Hcl (*Crx) 40 Mg Tab Sr 12hr PO 40 mg Q12HR JESSICA Administration Pantoprazole Sodium 40 mg 05/10/24 09:00 05/12/24 09:38 Pantoprazole 40 Mg Tablet PO 40 mg QAM JESSICA Administration Prednisone 40 mg 05/12/24 08:00 05/12/24 09:25 Prednisone 20 Mg Tablet PO 40 mg DAILY@0800 JESSICA Administration Pregabalin 225 mg 05/09/24 21:00 05/12/24 21:19 Pregabalin (*Crx) 75 Mg Capsule PO 225 mg Q12HR JESSICA Administration Rivaroxaban 20 mg 05/10/24 17:00 05/12/24 16:24 Rivaroxaban 20 Mg Tablet PO 20 mg DAILY@1700 JESSICA Administration Fluticasone/Salmeterol 2 puff 05/09/24 20:00 05/12/24 20:45 Fluticasone/Salmeterol 230-21 Mcg Inhaler 1 Puff INHALATION 2 puff Q12HRT JESSICA Administration Senna/Docusate Sodium 1 tab 05/10/24 09:00 05/12/24 09:38 Senna/Docusate Sodium Tablet PO 1 tab DAILY JESSICA Administration Sodium Chloride 10 ml 05/09/24 14:00 05/13/24 05:30 Central Line Flush IV PUSH 10 ml Q8HR JESSICA Administration Sodium Chloride 1 applic 05/09/24 21:00 05/12/24 21:21 Sodium Chloride Nasal Gel 14.1 Gm NASAL 1 applic HS JESSICA Administration Sodium Chloride 1 spray 05/10/24 17:00 05/12/24 16:24 Saline 0.65% Demetris Soln 44 Ml Btl NASAL 1 spray BID JESSICA Administration Sodium Chloride 1 spray 05/10/24 09:41 Saline 0.65% Demetris Soln 44 Ml Btl NASAL Q2H PRN Congestion Tamsulosin HCl 0.4 mg 05/10/24 09:00 05/12/24 09:39 Tamsulosin Hcl 0.4 Mg Capsule PO 0.4 mg DAILY JESSICA Administration Triamcinolone Acetonide 1 applic 05/09/24 16:06 Triamcinolone Acet 0.1% Cream 15 Gm Tube TOPICAL QID PRN psioriasis Radiology Results: ITS Impressions Chest X-Ray 05/09/24 10:44 IMPRESSION: 1. Persistent volume loss with chronic opacities in the posterior right mid to upper lung zone on CT. 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 2. No recent interval change in a small right pleural effusion with associated compressive atelectasis in the right lower lobe. 3. Difficult to absolutely exclude superimposed pneumonia however there are no new opacities to more specifically suggest this. Chest CTA 05/09/24 11:19 IMPRESSION: 1. No pulmonary embolism. 2. Bilateral scattered mild new lung disease, composed predominantly of tree-in-bud opacities and small groundglass opacities suspicious for pneumonia 3. Unchanged small right and new small left pleural effusions. 4. A couple regions of chronic consolidation with volume loss in the right mid to upper lung and right lower lung likely atelectasis/scarring related to reported treated lung cancer. 5. Unchanged scattered subcentimeter solid pulmonary nodules and scattered patchy sclerotic bone lesions consistent with metastatic disease. Labs Labs: Laboratory Results - last 24 hr 05/10/24 05/12/24 05/13/24 12:47 18:49 05:35 WBC 11.5 H 16.3 H RBC 3.36 L 3.12 L Hgb 8.5 L 7.8 L Hct 28.3 L 26.3 L MCV 84.2 84.3 MCH 25.3 L 25.0 L MCHC 30.0 L 29.7 L RDW 19.6 H 19.9 H Plt Count 169 180 MPV 11.1 H 11.5 H Immature Gran % (Auto) Not Reportable Not Reportable Neut % (Auto) Not Reportable Not Reportable Lymph % (Auto) Not Reportable Not Reportable [place] % (Auto) Not Reportable Not Reportable Eos % (Auto) Not Reportable Not Reportable Baso % (Auto) Not Reportable Not Reportable Lymph # (Auto) Not Reportable Not Reportable [place] # (Auto) Not Reportable Not Reportable Eos # (Auto) Not Reportable Not Reportable Baso # (Auto) Not Reportable Not Reportable Abs Immat Gran (auto) Not Reportable Not Reportable Absolute Neuts (auto) Not Reportable Not Reportable Absolute Nucleated RBC Not Reportable Not Reportable Total Counted 100 100 Neutrophils % (Manual) 62 61 Band Neutrophils % 15 H 15 H Lymphocytes % (Manual) 11.0 L 13 L Monocytes % (Manual) 11 H 10 H Basophils % (Manual) 1 1 Nucleated RBC % Not Reportable Not Reportable Abs Neuts (Manual) 8.85 H 12.38 H Abs Lymphs (Manual) 1.26 2.11 Abs Monocytes (Manual) 1.26 H 1.63 H Abs Basophils (Manual) 0.11 H 0.16 H Atypical Lymphocytes Present Dohle Bodies Present Platelet Estimate Adequate Adequate Clumped Platelets Present Large Platelets Present Hypochromasia 1+ 1+ Anisocytosis 2+ 1+ Schistocytes None seen None seen Sodium 136 L 137 Potassium 4.7 4.0 Chloride 101 102 Carbon Dioxide 32 H 33 H Anion Gap 3 L 2 L BUN 12 14 Creatinine 1.20 1.10 Estim Creat Clear Calc 63 68 Estimated GFR > 60 > 60 Glucose 197 H 120 H Calcium 10.0 9.2 Ionized Calcium Tomasa 4.7 Quality VTE Prophylaxis VTE prophylaxis: mechanical ordered and pharmacologic ordered -Patient's previous records reviewed on admission -ER notes reviewed in detail on admission -discussed all findings and current treatment plan with patient/Family/POA -Consultations reviewed for recommendations -Patient's disposition for safe discharge discussed with home health care case manager Dictation performed by [employer] in [employer] direct speech recognition software, 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 Hospitalist MIPS Advance Care Plan I have confirmed that the patient's Advanced Care Plan is present, code status is documented, or surrogate decision maker is listed in patient medical record.: Yes Medication Reconciliation I have utilized all available resources to obtain, update and review the patients current medications (includes all prescriptions, OTC, herbals, cannabis, and nutritional supplements).: Yes The patient is not eligible for med reconciliation; the patient is in a emergent medical situation where delaying treatment would jeopardize the patients health.: No
[2024-05-13] MEDS: BUDESONIDE RESPULE NEB 0.5 MG/2 ML AMP INHALATION ×2 (07:25→21:57)
[2024-05-13] MEDS: FLUTICASONE/SALMETEROL 230-21 MCG INHALER 1 PUFF 2 PUFF INHALATION ×2 (07:25→21:57)
[2024-05-13] MEDS: oxyCODONE HCL (*CRX) 40 MG TAB SR 12HR PO ×2 (09:20→20:00)
[2024-05-13] MEDS: SENNA/DOCUSATE SODIUM TABLET 1 TAB PO (09:20)
[2024-05-13] MEDS: PANTOPRAZOLE 40 MG TABLET PO (09:21)
[2024-05-13] MEDS: AZITHROMYCIN 250 MG TABLET 500 MG PO (09:21)
[2024-05-13] MEDS: FERROUS SULFATE 325 MG TABLET DR BY MOUTH (09:21)
[2024-05-13] MEDS: PREGABALIN (*CRX) 75 MG CAPSULE 225 MG PO ×2 (09:21→20:00)
[2024-05-13] MEDS: FOLIC ACID 1 MG TABLET PO (09:21)
[2024-05-13] MEDS: ACIDOPHILUS/BULGARICUS CHEWABLE TABLET 1 TABLET PO ×4 (09:21→19:59)
[2024-05-13] MEDS: CYANOCOBALAMIN 500 MCG TABLET PO (09:21)
[2024-05-13] MEDS: guaiFENesin 12 HR 600 MG TABCR 1200 MG PO ×2 (09:22→20:00)
[2024-05-13] MEDS: TAMSULOSIN HCL 0.4 MG CAPSULE PO (09:22)
[2024-05-13] MEDS: METOPROLOL TARTRATE 12.5 MG TABLET PO ×2 (09:22→20:00)
[2024-05-13] MEDS: FUROSEMIDE INJ 40 MG/4 ML VIAL IV PUSH (09:23)
[2024-05-13] MEDS: SALINE 0.65% NAS SOLN 44 ML BTL 1 SPRAY NASAL ×2 (09:24→16:40)
[2024-05-13] MEDS: CYANOCOBALAMIN 1,000 MCG TABLET 2000 MCG PO (09:41)
[2024-05-13] MEDS: AMOXICILLIN/CLAVULANATE K 875-125 MG TAB 1 TABLET PO ×2 (09:43→20:00)
--- NOTE | 2024-05-13 11:38 | PCSTNOTE ---
Please refer to the Bedside Swallow Evaluation in the EMR. Please note, silent aspiration cannot be ruled out at bedside.
[2024-05-13] MEDS: RIVAROXABAN 20 MG TABLET PO (16:39)
[2024-05-13 17:44] LABS: Pneumococcal Antigen Urine NOT DETECTED
[2024-05-13 19:59] LABS: Hematocrit 26.4 % (42.0-52.0); Hemoglobin 7.6 g/dL (14.0-18.0); Mean Corpuscular HGB Conc 28.8 g/dl (32-36); Mean Corpuscular Hemoglobin 24.5 pg (26-34); Mean Corpuscular Volume 85.2 fl (80-100); Platelet Count Result 172 k/mm3 (150-375); Red Cell Distribution Width 20.4 % (11.5-14.5)
[2024-05-13 20:09] LABS: Anion Gap 1 mmol/L (4-12); Blood Urea Nitrogen 16 mg/dL (9-20); Calcium 9.6 mg/dL (8.4-10.2); Carbon Dioxide 36 mmol/L (22-30); Chloride 102 mmol/L (98-107); Estimated CRCL calculation 74 ml/min; Estimated Glomerular Filt Rate > 60; Glucose 124 mg/dL (65-110); Potassium 3.8 mmol/L (3.4-5.0); Sodium 139 mmol/L (137-145)
[2024-05-13 20:57] LABS: Band Neutrophils Percent 10 % (0-6); Basophils Absolute Manual 0.28 K/mm3 (0.0-0.1); Basophils Percent Manual 2 % (0-1); Monocytes Absolute Manual 0.28 K/mm3 (0.1-0.90); Monocytes Percent Manual 2 % (3-9); Neutrophils Absolute Manual 10.64 K/mm3 (1.3-6.7); Neutrophils Percent Manual 66 % (46-73); Total Cells Counted 100
[2024-05-13 20:58] LABS: Platelet Estimate Adequate (Adequate); Schistocytes None Seen; Stomatocytes 1+
[2024-05-13 20:59] LABS: Hypochromasia 1+; Large Platelets Present; Ovalocytes 1+; Polychromasia 1+
[2024-05-14] VITALS (15 sets, daily range): BP systolic 100–116; BP diastolic 47–48; PULSE 70–99; RESP 18–20; TEMP 36.4–37; O2SAT 98–100
[2024-05-14] MEDS: IPRATROPIUM 0.5 MG/ALBUTEROL SULFATE 2.5 MG AMPUL.NEB 3 ML INHALATION ×4 (01:41→20:36)
[2024-05-14] MEDS: CENTRAL LINE FLUSH 10 ML IV PUSH ×3 (05:29→20:15)
[2024-05-14] MEDS: BUDESONIDE RESPULE NEB 0.5 MG/2 ML AMP INHALATION ×2 (07:25→20:36)
[2024-05-14] MEDS: FLUTICASONE/SALMETEROL 230-21 MCG INHALER 1 PUFF 2 PUFF INHALATION (07:26)
--- NOTE | 2024-05-14 07:32 | P.PNIM_ITS ---
Progress Note: A&P Assessment and Plan (1) Pneumonia: Code(s): J18.9 - Pneumonia, unspecified organism Status: Acute Assessment and Plan: * On 3L O2 at home. Not currently wheezing. He had a productive cough that is resolved and is neutropenic. No fevers * 05/09 CTA small groundglass opacities suspicious for pneumonia, negative for PE * Initially on Rocephin and Azithromycin. Completed 5 days of azithromycin and on Augmentin through 05/15/24 * Prednisone 40 mg daily added due to expiratory wheezing and worsening shortness of breath. * Melinda * Has a hx of C-diff, monitor for diarrhea, currently resolved added probiotic * guaifenesin * CPT (2) Neutropenia: Code(s): D70.9 - Neutropenia, unspecified Status: Acute Assessment and Plan: * WBC improving 1.5<1.7<2.7 stable at baseline * history of metastatic adeno carcinoma of the lung * Continuing filgrastim per outpatient oncology recs, Dr. Baez 05/12/24: * WBC 4.5 RESOLVED (3) Epistaxis: Code(s): R04.0 - Epistaxis Status: Acute Assessment and Plan: * Blood count trending down and has some continued scant bleeding when he blows his nose, though minimal * Add ocean spray, continue saline gel, humidified O2 * Restart anticoagulation today and monitor if blood count stable and bleeding resolved 7.4 RESOLVED (4) Chronic anemia: Code(s): D64.9 - Anemia, unspecified Status: Acute Assessment and Plan: * Chronic * intermittent bloody nose * currently on Xarelto * monitor H&H * Transfuse PRBC if Hgb <7.0 * resumed xarelto 05/10 STABLE (5) Lung cancer m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: Code(s): C34.90 - Malignant neoplasm of unspecified part of unspecified bronchus or lung; C79.51 - Secondary malignant neoplasm of bone Status: Acute Assessment and Plan: * Follows with Dr. Baez outpatient * Has a Port, currently accessed * Treatment of neutropenia as noted * Magic mouthwash for mouth sores * Reports decreased mobility, cane at baseline: PT/OT (6) Chronic respiratory failure with hypoxia, on home oxygen therapy: Code(s): J96.11 - Chronic respiratory failure with hypoxia; Z99.81 - Dependence on supplemental oxygen Status: Acute Assessment and Plan: * On 3L Home O2. Has a bubbler at home * Humidified O2 for nosebleed (7) Chronic obstructive pulmonary disease: Code(s): J44.9 - Chronic obstructive pulmonary disease, unspecified Status: Acute Assessment and Plan: * Follows with pulmonary at [facility] * Home meds: fluticasone-salmeterol 2 puffs BID, budesonide nebs BID, Albuterol prn * resume daily prednisone 40 mg (8) Chronic anticoagulation: Code(s): Z79.01 - FDC (current) use of anticoagulants Status: Acute Assessment and Plan: * Hx DVT and afib * Holding Rivaroxaban * Resume this afternoon if blood count stable * Xarelto resumed * monitor H&H (9) Hypocalcemia: Code(s): E83.51 - Hypocalcemia Status: Acute Assessment and Plan: * Calcium low, 6.8 * Check ionized calcium, vitamin D, PTH RESOLVED (10) Lower extremity edema: Code(s): R60.0 - Localized edema Status: Acute Assessment and Plan: * 2-3+ BLE * LAsix 40 daily IVP * elevated legs when at rest * LUCY kebede added Plan Code status: Full code per patient DVT prophylaxis: Xarelto Stress ulcer prophylaxis: Protonix 40 daily PT/OT notes: PT/OT at baseline Disposition: patient continues admission for medical management of pneumonia and nose bleeds on chronic anticoagulation patient with history of metastatic adeno carcinoma and wears 3 L supplemental oxygen chronically. Plan is for patient to return home when medically stable. Will need referral to GI for EGD outpatient Subjective Date/time seen: 05/14/24 07:32 Interval history: Patient reports worsening wheezing and shortness of breath. He has a nonproductive congested cough. He does feel like the CPT vest is helping but he still is unable to produce sputum. He denies fever or chills. He also reports left greater than right lower extremity swelling. He is requesting LUCY hose. Review of Systems Review of Systems: All systems reviewed & are unremarkable except as noted in HPI and below Exam Narrative: General: appears unwell, appears stated age, thin HEENT: normocephalic, atraumatic. Mucous membranes moist. EOMI, PERRLA, bilateral sclera anicteric, no conjunctival injection. Neck supple without JVD, lymphadenopathy, or bruit. Missing dentition. Respiratory: RUL, RML coarse, BLL expiratory wheeze, and diminished lung sounds overall. Cardiovascular: Regular rate and rhythm, normal S1-S2 upon auscultation. No murmurs, rubs, or clicks. PMI is nondisplaced, capillary refill less than 3 second. Abdomen: Soft, round, no pulsatile masses, nondistended and nontender. No rebound, no guarding. No CVA tenderness, no hepatosplenomegaly. Bowel sounds present to all four quadrants. No high pitch or tinkling sounds, resonant to percussion. Implanted pain pump to the left lower quadrant. Extremities: No cyanosis, clubbing. BLE edema piitting +2-3, Pulses are palpable 2/2. Active ROM to all four extremities. Neuro: Alert and orientated x 4. PERRLA. Cranial nerves 2-12 intact without focal deficit. Skin: Warm, dry, and intact, without rash, erythema, or lesion. Lines: implanted Mediport, nerve stimulator, and implanted pain pump Objective Data Vital Signs Vital Signs: Vital Signs - 24 hr 05/13/24 07:42 05/13/24 09:22 05/13/24 09:45 Temperature Pulse Rate 85 85 Respiratory Rate 20 20 Blood Pressure Pulse Oximetry 98 Oxygen Delivery Nasal Cannula Oxygen Flow Rate 3.5 05/13/24 13:47 05/13/24 13:54 05/13/24 13:55 Temperature Pulse Rate 86 88 Respiratory Rate 20 20 Blood Pressure Pulse Oximetry 98 Oxygen Delivery Nasal Cannula Oxygen Flow Rate 4 05/13/24 14:00 05/13/24 20:00 05/13/24 19:56 Temperature 98.3 F 97.7 F Pulse Rate 87 83 79 Respiratory Rate 14 20 Blood Pressure 109/62 106/56 L Pulse Oximetry 99 100 Oxygen Delivery Oxygen Flow Rate 05/13/24 20:00 05/13/24 21:57 05/13/24 21:57 Temperature Pulse Rate 99 Respiratory Rate 20 Blood Pressure Pulse Oximetry 100 98 Oxygen Delivery Nasal Cannula Nasal Cannula Oxygen Flow Rate 4 4 05/13/24 22:11 05/14/24 01:41 05/14/24 01:48 Temperature Pulse Rate 89 99 96 Respiratory Rate 20 20 20 Blood Pressure Pulse Oximetry Oxygen Delivery Oxygen Flow Rate 05/14/24 04:10 05/14/24 07:31 05/14/24 07:31 Temperature 98.6 F Pulse Rate 96 92 Respiratory Rate 20 20 Blood Pressure 107/48 L Pulse Oximetry 98 98 Oxygen Delivery Nasal Cannula Oxygen Flow Rate 4 Intake/Output Intake/Output: Intake & Output 05/11/24 05/12/24 05/13/24 05/14/24 23:59 23:59 23:59 23:59 Intake Total 1460 2760 1950 390 Balance 1460 2760 1950 390 Meds/Results Medications: Active Medications Generic Name Dose Route Start Last Admin Trade Name Freq PRN Reason Stop Dose Admin Acetaminophen 650 mg 05/09/24 14:44 05/12/24 05:46 Acetaminophen 325 Mg Tablet PO 650 mg Q6H PRN Administration Mild Pain (1-3) or Fever Albuterol 2 puff 05/09/24 16:06 Albuterol Sulfate (*Sp) Aerosol 1 Puff INHALATION Q4H PRN Shortness Of Breath Or Wheezing Albuterol/Ipratropium 3 ml 05/09/24 14:00 05/14/24 07:25 Ipratropium 0.5 Mg/Albuterol Sulfate 2.5 Mg Ampul.Neb 3 Ml INHALATION 3 ml Q6HRT JESSICA Administration Amoxicillin/Clavulanate Potassium 1 tablet 05/13/24 09:30 05/13/24 20:00 Amoxicillin/Clavulanate K 875-125 Mg Tab PO 05/15/24 21:01 1 tablet Q12HR JESSICA Administration Budesonide 0.5 mg 05/09/24 20:00 05/14/24 07:25 Budesonide Respule Neb 0.5 Mg/2 Ml Amp INHALATION 0.5 mg Q12HRT JESSICA Administration Lidocaine HCl 30 ml/ Al Hydrox 0 ml 05/10/24 05:00 05/14/24 05:23 /Mg Hydrox/Simethicone 30 ml/ PO Not Given Diphenhydramine HCl 75 mg Q4HWA [facility] Cyanocobalamin 2,000 mcg 05/10/24 09:00 05/13/24 09:41 Cyanocobalamin 1,000 Mcg Tablet PO 2,000 mcg QAM [facility] Administration Cyanocobalamin 500 mcg 05/10/24 09:00 05/13/24 09:21 Cyanocobalamin 500 Mcg Tablet PO 500 mcg QAM JESSICA Administration Ergocalciferol 50,000 units 05/19/24 09:00 Ergocalciferol 50,000 Units Capsule PO Mo@0900 [facility] Ferrous Sulfate 325 mg 05/10/24 09:00 05/13/24 09:21 Ferrous Sulfate [address] BY MOUTH 325 mg DAILY JESSICA Administration Folic Acid 1 mg 05/10/24 09:00 05/13/24 09:21 Folic Acid 1 Mg Tablet PO 1 mg DAILY JESSICA Administration Furosemide 40 mg 05/11/24 14:00 05/13/24 09:23 Furosemide Inj 40 Mg/4 Ml Vial IV PUSH 40 mg DAILY JESSICA Administration Guaifenesin 1,200 mg 05/09/24 21:00 05/13/24 20:00 Guaifenesin 12 Hr 600 Mg Tabcr PO 1,200 mg Q12HR JESSICA Administration Heparin Sodium (Beef Lung) 50 units 05/10/24 09:00 05/13/24 09:24 Heparin Flush 50 Units/5 Ml Syringe IV PUSH 50 units QAM JESSICA Administration Heparin Sodium (Beef Lung) 50 units 05/09/24 10:01 Heparin Flush 50 Units/5 Ml Syringe IV PUSH PRN PRN after intermittent infusion Heparin Sodium (Beef Lung) 50 units 05/09/24 10:01 05/12/24 18:42 Heparin Flush 50 Units/5 Ml Syringe IV PUSH 50 units PRN PRN Administration after blood draws Heparin Sodium (Porcine) 500 units 05/09/24 10:01 05/13/24 19:52 Heparin Sodium Lock Flush 500 Units/5 Ml Syringe IV PUSH 500 units PRN PRN Administration see comments below Lactobacillus Acidophilus 1 tablet 05/11/24 13:00 05/13/24 19:59 Acidophilus/Bulgaricus Chewable Tablet PO 1 tablet QID JESSICA Administration Loperamide HCl 2 mg 05/09/24 21:04 Loperamide Hcl 2 Mg Capsule PO PRN PRN Diarrhea Lorazepam 0.5 mg 05/09/24 16:06 Lorazepam (*Crx) 0.5 Mg Tablet PO Q8H PRN Anxiety Metoprolol Tartrate 12.5 mg 05/09/24 21:00 05/13/24 20:00 Metoprolol Tartrate 12.5 Mg Tablet PO 12.5 mg Q12HR JESSICA Administration Oxycodone HCl 5 mg 05/09/24 16:06 Oxycodone Hcl (*Crx) 5 Mg Tab Ir PO Q6H PRN Breakthrough Pain Oxycodone HCl 40 mg 05/09/24 21:00 05/13/24 20:00 Oxycodone Hcl (*Crx) 40 Mg Tab Sr 12hr PO 40 mg Q12HR JESSICA Administration Pantoprazole Sodium 40 mg 05/10/24 09:00 05/13/24 09:21 Pantoprazole 40 Mg Tablet PO 40 mg QAM JESSICA Administration Pregabalin 225 mg 05/09/24 21:00 05/13/24 20:00 Pregabalin (*Crx) 75 Mg Capsule PO 225 mg Q12HR JESSICA Administration Rivaroxaban 20 mg 05/10/24 17:00 05/13/24 16:39 Rivaroxaban 20 Mg Tablet PO 20 mg DAILY@1700 JESSICA Administration Fluticasone/Salmeterol 2 puff 05/09/24 20:00 05/14/24 07:26 Fluticasone/Salmeterol 230-21 Mcg Inhaler 1 Puff INHALATION 2 puff Q12HRT JESSICA Administration Senna/Docusate Sodium 1 tab 05/10/24 09:00 05/13/24 09:20 Senna/Docusate Sodium Tablet PO 1 tab DAILY JESSICA Administration Sodium Chloride 10 ml 05/09/24 14:00 05/14/24 05:29 Central Line Flush IV PUSH 10 ml Q8HR JESSICA Administration Sodium Chloride 1 applic 05/09/24 21:00 05/13/24 20:02 Sodium Chloride Nasal Gel 14.1 Gm NASAL Not Given HS JESSICA Sodium Chloride 1 spray 05/10/24 17:00 05/13/24 16:40 Saline 0.65% Demetris Soln 44 Ml Btl NASAL 1 spray BID JESSICA Administration Sodium Chloride 1 spray 05/10/24 09:41 Saline 0.65% Demetris Soln 44 Ml Btl NASAL Q2H PRN Congestion Tamsulosin HCl 0.4 mg 05/10/24 09:00 05/13/24 09:22 Tamsulosin Hcl 0.4 Mg Capsule PO 0.4 mg DAILY JESSICA Administration Triamcinolone Acetonide 1 applic 05/09/24 16:06 Triamcinolone Acet 0.1% Cream 15 Gm Tube TOPICAL QID PRN psioriasis Radiology Results: ITS Impressions Chest X-Ray 05/09/24 10:44 IMPRESSION: 1. Persistent volume loss with chronic opacities in the posterior right mid to upper lung zone on CT. 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 2. No recent interval change in a small right pleural effusion with associated compressive atelectasis in the right lower lobe. 3. Difficult to absolutely exclude superimposed pneumonia however there are no new opacities to more specifically suggest this. Chest CTA 05/09/24 11:19 IMPRESSION: 1. No pulmonary embolism. 2. Bilateral scattered mild new lung disease, composed predominantly of tree-in-bud opacities and small groundglass opacities suspicious for pneumonia 3. Unchanged small right and new small left pleural effusions. 4. A couple regions of chronic consolidation with volume loss in the right mid to upper lung and right lower lung likely atelectasis/scarring related to reported treated lung cancer. 5. Unchanged scattered subcentimeter solid pulmonary nodules and scattered patchy sclerotic bone lesions consistent with metastatic disease. Labs Labs: Laboratory Results - last 24 hr 05/09/24 05/13/24 17:11 19:51 WBC 14.0 H RBC 3.10 L Hgb 7.6 L Hct 26.4 L MCV 85.2 MCH 24.5 L MCHC 28.8 L RDW 20.4 H Plt Count 172 MPV 11.0 H Immature Gran % (Auto) Not Reportable Neut % (Auto) Not Reportable Lymph % (Auto) Not Reportable [place] % (Auto) Not Reportable Eos % (Auto) Not Reportable Baso % (Auto) Not Reportable Lymph # (Auto) Not Reportable [place] # (Auto) Not Reportable Eos # (Auto) Not Reportable Baso # (Auto) Not Reportable Abs Immat Gran (auto) Not Reportable Absolute Neuts (auto) Not Reportable Absolute Nucleated RBC Not Reportable Total Counted 100 Neutrophils % (Manual) 66 Band Neutrophils % 10 H Lymphocytes % (Manual) 20.0 Monocytes % (Manual) 2 L Basophils % (Manual) 2 H Nucleated RBC % Not Reportable Abs Neuts (Manual) 10.64 H Abs Lymphs (Manual) 2.80 Abs Monocytes (Manual) 0.28 Abs Basophils (Manual) 0.28 H Platelet Estimate Adequate Large Platelets Present Polychromasia 1+ Hypochromasia 1+ Ovalocytes 1+ Stomatocytes 1+ Schistocytes None seen Sodium 139 Potassium 3.8 Chloride 102 Carbon Dioxide 36 H Anion Gap 1 L BUN 16 Creatinine 1.00 Estim Creat Clear Calc 74 Estimated GFR > 60 Glucose 124 H Calcium 9.6 Urine Pneumococcal Ag Not detected Quality VTE Prophylaxis VTE prophylaxis: mechanical ordered and pharmacologic ordered
[2024-05-14] MEDS: FUROSEMIDE INJ 40 MG/4 ML VIAL IV PUSH (09:26)
[2024-05-14] MEDS: CYANOCOBALAMIN 1,000 MCG TABLET 2000 MCG PO (09:26)
[2024-05-14] MEDS: PREGABALIN (*CRX) 75 MG CAPSULE 225 MG PO ×2 (09:27→20:14)
[2024-05-14] MEDS: SENNA/DOCUSATE SODIUM TABLET 1 TAB PO (09:27)
[2024-05-14] MEDS: TAMSULOSIN HCL 0.4 MG CAPSULE PO (09:27)
[2024-05-14] MEDS: oxyCODONE HCL (*CRX) 40 MG TAB SR 12HR PO ×2 (09:27→20:14)
[2024-05-14] MEDS: CYANOCOBALAMIN 500 MCG TABLET PO (09:27)
[2024-05-14] MEDS: FOLIC ACID 1 MG TABLET PO (09:28)
[2024-05-14] MEDS: FERROUS SULFATE 325 MG TABLET DR BY MOUTH (09:28)
[2024-05-14] MEDS: AMOXICILLIN/CLAVULANATE K 875-125 MG TAB 1 TABLET PO ×2 (09:28→20:14)
[2024-05-14] MEDS: PANTOPRAZOLE 40 MG TABLET PO (09:28)
[2024-05-14] MEDS: guaiFENesin 12 HR 600 MG TABCR 1200 MG PO ×2 (09:29→20:14)
[2024-05-14] MEDS: ACIDOPHILUS/BULGARICUS CHEWABLE TABLET 1 TABLET PO ×4 (09:29→20:14)
[2024-05-14] MEDS: METOPROLOL TARTRATE 12.5 MG TABLET PO ×2 (09:30→20:20)
[2024-05-14] MEDS: SALINE 0.65% NAS SOLN 44 ML BTL 1 SPRAY NASAL ×2 (09:31→17:07)
[2024-05-14] MEDS: predniSONE 20 MG TABLET 40 MG PO (15:57)
[2024-05-14] MEDS: RIVAROXABAN 20 MG TABLET PO (17:07)
[2024-05-14 18:18] LABS: Mycoplasma IgM Antibody Titer 57 U/mL
[2024-05-14] MEDS: SODIUM CHLORIDE NASAL GEL 14.1 GM 1 APPLIC NASAL (20:31)
[2024-05-14 21:59] LABS: Legionella pneumophila Ag Ur NOT DETECTED
[2024-05-15] VITALS (16 sets, daily range): BP systolic 107–123; BP diastolic 60–69; PULSE 83–106; RESP 16–20; TEMP 36.4–36.8; O2SAT 96–100
[2024-05-15] MEDS: IPRATROPIUM 0.5 MG/ALBUTEROL SULFATE 2.5 MG AMPUL.NEB 3 ML INHALATION ×2 (01:33→07:23)
--- NOTE | 2024-05-15 02:15 | PC.NURSE ---
Pt assessed, oxygen sat 98-99% pt still c/o of SOB. Called Respiratory for pt requested PRN inhaler. Respiratory therapist notified and and stated that she gave pt a breathing treatment 30 minutes ago .
[2024-05-15] MEDS: ALBUTEROL SULFATE (*SP) AEROSOL 1 PUFF 2 PUFF INHALATION ×2 (03:18→17:30)
[2024-05-15] MEDS: VISC PO ×5 (05:28→20:26)
[2024-05-15] MEDS: MAGNESIUM PO ×5 (05:28→20:26)
[2024-05-15] MEDS: LIDOCAINE HCL 2% PO ×5 (05:28→20:26)
[2024-05-15] MEDS: [UNRECOGNIZED DRUG - OTHER] PO ×5 (05:28→20:26)
[2024-05-15] MEDS: ALUMINUM PO ×5 (05:28→20:26)
[2024-05-15] MEDS: SIMETH PO ×5 (05:28→20:26)
[2024-05-15] MEDS: CENTRAL LINE FLUSH 10 ML IV PUSH ×3 (05:33→20:28)
[2024-05-15 05:44] LABS: Hematocrit 28.3 % (42.0-52.0); Hemoglobin 8.2 g/dL (14.0-18.0); Mean Corpuscular Hemoglobin 25.2 pg (26-34); Mean Corpuscular Volume 86.8 fl (80-100); Mean Platelet Volume 11.3 fl (7.4-10.4); Platelet Count Result 176 k/mm3 (150-375); Red Blood Count 3.26 M/mm3 (4.6-6.20); Red Cell Distribution Width 20.7 % (11.5-14.5)
[2024-05-15 06:00] LABS: Alanine Aminotransferase 14 U/L (6-50); Albumin Level 3.3 g/dL (3.5-5.1); Alkaline Phosphatase 106 U/L (38-126); Anion Gap 4 mmol/L (4-12); Aspartate Amino Transferase 20 U/L (17-59); Bilirubin,Total 0.3 mg/dL (0.2-1.3); Blood Urea Nitrogen 18 mg/dL (9-20); Calcium 8.5 mg/dL (8.4-10.2); Carbon Dioxide 34 mmol/L (22-30); Chloride 99 mmol/L (98-107); Estimated CRCL calculation 74 ml/min; Estimated Glomerular Filt Rate > 60; Glucose 215 mg/dL (65-110); Magnesium 1.8 mg/dL (1.6-2.3); Potassium 4.5 mmol/L (3.4-5.0); Sodium 137 mmol/L (137-145)
[2024-05-15 06:31] LABS: Anisocytosis 2+; Band Neutrophils Percent 10 % (0-6); Hypochromasia 1+; Large Platelets Present; Lymphocytes Absolute Manual 1.87 K/mm3 (1.1-4.5); Lymphocytes Percent Manual 11 % (18-44); Metamyelocytes Percent 1 %; Monocytes Absolute Manual 0.68 K/mm3 (0.1-0.90); Monocytes Percent Manual 4 % (3-9); Neutrophils Absolute Manual 14.28 K/mm3 (1.3-6.7); Neutrophils Percent Manual 74 % (46-73); Ovalocytes 1+; Platelet Estimate Adequate (Adequate); Polychromasia 1+; Schistocytes None Seen; Total Cells Counted 100
[2024-05-15] MEDS: BUDESONIDE RESPULE NEB 0.5 MG/2 ML AMP INHALATION ×2 (07:23→20:49)
[2024-05-15] MEDS: FLUTICASONE/SALMETEROL 230-21 MCG INHALER 1 PUFF 2 PUFF INHALATION ×2 (07:23→20:49)
[2024-05-15] MEDS: PREGABALIN (*CRX) 75 MG CAPSULE 225 MG PO ×2 (08:59→20:20)
[2024-05-15] MEDS: predniSONE 20 MG TABLET 40 MG PO (09:00)
[2024-05-15] MEDS: SENNA/DOCUSATE SODIUM TABLET 1 TAB PO (09:00)
[2024-05-15] MEDS: AMOXICILLIN/CLAVULANATE K 875-125 MG TAB 1 TABLET PO ×2 (09:00→20:20)
[2024-05-15] MEDS: ACIDOPHILUS/BULGARICUS CHEWABLE TABLET 1 TABLET PO ×4 (09:00→20:20)
[2024-05-15] MEDS: CYANOCOBALAMIN 500 MCG TABLET PO (09:00)
[2024-05-15] MEDS: FERROUS SULFATE 325 MG TABLET DR BY MOUTH (09:00)
[2024-05-15] MEDS: FOLIC ACID 1 MG TABLET PO (09:00)
[2024-05-15] MEDS: CYANOCOBALAMIN 1,000 MCG TABLET 2000 MCG PO (09:00)
[2024-05-15] MEDS: TAMSULOSIN HCL 0.4 MG CAPSULE PO (09:00)
[2024-05-15] MEDS: METOPROLOL TARTRATE 12.5 MG TABLET PO ×2 (09:00→20:21)
[2024-05-15] MEDS: guaiFENesin 12 HR 600 MG TABCR 1200 MG PO ×2 (09:00→20:20)
[2024-05-15] MEDS: oxyCODONE HCL (*CRX) 40 MG TAB SR 12HR PO ×2 (09:00→20:20)
[2024-05-15] MEDS: SALINE 0.65% NAS SOLN 44 ML BTL 1 SPRAY NASAL ×2 (09:01→17:25)
[2024-05-15] MEDS: FUROSEMIDE INJ 40 MG/4 ML VIAL IV PUSH (09:05)
--- NOTE | 2024-05-15 09:13 | P.PNIM_ITS ---
Progress Note: A&P Assessment and Plan (1) Pneumonia: Code(s): J18.9 - Pneumonia, unspecified organism Status: Acute Assessment and Plan: * On 3L O2 at home. * 05/09 CTA small groundglass opacities suspicious for pneumonia, negative for PE * Initially on Rocephin and Azithromycin. Completed 5 days of azithromycin and on Augmentin through 05/15/24 * Prednisone 40 mg daily added due to expiratory wheezing and worsening shortness of breath. * WBC elevated to 17 which is likely reactive from addition of steroids. WBC on admission was 11.5-->bumped 16.3 (steroids stopped)--> WBC 14.0 (resumed steroids due to wheezing)--WBC 17.0. * DuoNebs. Changed to levalbuterol given tachycardia. * Has a hx of C-diff, monitor for diarrhea, currently resolved added probiotic * guaifenesin * CPT * Add CRP and Procal * Asked pulmonology to consult as patient feels his breathing is not improving like he had hoped. I'm not sure if there is much different to be done (2) Neutropenia: Code(s): D70.9 - Neutropenia, unspecified Status: Acute Assessment and Plan: * WBC improving 1.5<1.7<2.7 stable at baseline * history of metastatic adeno carcinoma of the lung * Continuing filgrastim per outpatient oncology recs, Dr. Baez 05/12/24: * WBC 4.5 RESOLVED (3) Epistaxis: Code(s): R04.0 - Epistaxis Status: Acute Assessment and Plan: * Blood count trending down and has some continued scant bleeding when he blows his nose, though minimal * Add ocean spray, continue saline gel, humidified O2 * Restart anticoagulation today and monitor if blood count stable and bleeding resolved 7.4 RESOLVED (4) Chronic anemia: Code(s): D64.9 - Anemia, unspecified Status: Acute Assessment and Plan: * Chronic * intermittent bloody nose * currently on Xarelto * monitor H&H * Transfuse PRBC if Hgb <7.0 * resumed xarelto 05/10 STABLE (5) Lung cancer m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: Code(s): C34.90 - Malignant neoplasm of unspecified part of unspecified bronchus or lung; C79.51 - Secondary malignant neoplasm of bone Status: Acute Assessment and Plan: * Follows with Dr. Baez outpatient * Has a Port, currently accessed * Treatment of neutropenia as noted * Magic mouthwash for mouth sores * Reports decreased mobility, cane at baseline: PT/OT (6) Chronic respiratory failure with hypoxia, on home oxygen therapy: Code(s): J96.11 - Chronic respiratory failure with hypoxia; Z99.81 - Dependence on supplemental oxygen Status: Acute Assessment and Plan: * On 3L Home O2. Has a bubbler at home * Humidified O2 for nosebleed (7) Chronic obstructive pulmonary disease: Code(s): J44.9 - Chronic obstructive pulmonary disease, unspecified Status: Acute Assessment and Plan: * Follows with pulmonary at 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 Stopping today and resume home lasix of 40 mg PO BID * elevated legs when at rest * LUCY kebede added Plan Code status: Full code per patient DVT prophylaxis: Xarelto Stress ulcer prophylaxis: Protonix 40 daily PT/OT notes: PT/OT at baseline Disposition: patient continues admission for medical management of pneumonia and nose bleeds on chronic anticoagulation patient with history of metastatic adeno carcinoma and wears 3 L supplemental oxygen chronically. Plan is for patient to return home when medically stable. Will need referral to GI for EGD outpatient Subjective Date/time seen: 05/15/24 09:13 Interval history: Patient reports worsening shortness of breath overnight. Albuterol rescue nebulizer seemed to help. Currently he is sitting on the edge of the bed with his 4 L NC and appears to have unlabored breathing. His lung sounds are actually better today after resuming steroids and he does agree his wheezing s improved. He states it feels like it is difficult to take a deep breath effectively. Review of Systems Review of Systems: All systems reviewed & are unremarkable except as noted in HPI and below Exam Narrative: General: appears unwell, appears stated age, thin HEENT: normocephalic, atraumatic. Mucous membranes moist. EOMI, PERRLA, bilateral sclera anicteric, no conjunctival injection. Neck supple without JVD, lymphadenopathy, or bruit. Missing dentition. Respiratory: lung arounds are diminished but clear Cardiovascular: Regular rate and rhythm, normal S1-S2 upon auscultation. No murmurs, rubs, or clicks. PMI is nondisplaced, capillary refill less than 3 second. Abdomen: Soft, round, no pulsatile masses, nondistended and nontender. No rebound, no guarding. No CVA tenderness, no hepatosplenomegaly. Bowel sounds present to all four quadrants. No high pitch or tinkling sounds, resonant to percussion. Implanted pain pump to the left lower quadrant. Extremities: No cyanosis, clubbing. BLE edema piitting +2-3, Pulses are palpable 2/2. Active ROM to all four extremities. Neuro: Alert and orientated x 4. PERRLA. Cranial nerves 2-12 intact without focal deficit. Skin: Warm, dry, and intact, without rash, erythema, or lesion. Lines: implanted Mediport, nerve stimulator, and implanted pain pump Objective Data Vital Signs Vital Signs: Vital Signs - 24 hr 05/14/24 09:30 05/14/24 09:31 05/14/24 13:42 Temperature Pulse Rate 84 84 Respiratory Rate 20 20 Blood Pressure Pulse Oximetry 98 Oxygen Delivery Nasal Cannula Oxygen Flow Rate 3.5 Fraction of Inspired Oxygen 05/14/24 14:00 05/14/24 20:20 05/14/24 20:21 Temperature 97.6 F Pulse Rate 70 88 Respiratory Rate 18 Blood Pressure 100/47 L 116/48 L Pulse Oximetry 100 Oxygen Delivery Oxygen Flow Rate Fraction of Inspired Oxygen 05/14/24 20:45 05/14/24 20:00 05/15/24 01:20 Temperature 97.5 F L Pulse Rate 90 Respiratory Rate 20 Blood Pressure 115/61 Pulse Oximetry 99 99 Oxygen Delivery Nasal Cannula Oxygen Flow Rate 3.5 Fraction of Inspired Oxygen 05/14/24 20:39 05/14/24 20:48 05/15/24 01:35 Temperature Pulse Rate 88 91 83 Respiratory Rate 20 20 20 Blood Pressure Pulse Oximetry Oxygen Delivery Oxygen Flow Rate Fraction of Inspired Oxygen 05/15/24 01:45 05/15/24 05:44 05/15/24 07:24 Temperature 98.2 F Pulse Rate 85 92 Respiratory Rate 20 20 Blood Pressure 123/69 Pulse Oximetry 98 97 Oxygen Delivery Nasal Cannula Oxygen Flow Rate 4 Fraction of Inspired Oxygen 36 05/15/24 07:24 05/15/24 07:40 05/15/24 09:00 Temperature Pulse Rate 98 106 H 106 H Respiratory Rate 20 20 Blood Pressure Pulse Oximetry Oxygen Delivery Oxygen Flow Rate Fraction of Inspired Oxygen Intake/Output Intake/Output: Intake & Output 05/12/24 05/13/24 05/14/2428/24 23:59 23:59 23:59 23:59 Intake Total 2760 1950 1470 637 Balance 2760 1950 1470 637 Meds/Results Medications: Active Medications Generic Name Dose Route Start Last Admin Trade Name Freq PRN Reason Stop Dose Admin Acetaminophen 650 mg 05/09/24 14:44 05/12/24 05:46 Acetaminophen 325 Mg Tablet PO 650 mg Q6H PRN Administration Mild Pain (1-3) or Fever Albuterol 2 puff 05/09/24 16:06 05/15/24 03:18 Albuterol Sulfate (*Sp) Aerosol 1 Puff INHALATION 2 puff Q4H PRN Administration Shortness Of Breath Or Wheezing Albuterol/Ipratropium 3 ml 05/09/24 14:00 05/15/24 07:23 Ipratropium 0.5 Mg/Albuterol Sulfate 2.5 Mg Ampul.Neb 3 Ml INHALATION 3 ml Q6HRT JESSICA Administration Amoxicillin/Clavulanate Potassium 1 tablet 05/13/24 09:30 05/15/24 09:00 Amoxicillin/Clavulanate K 875-125 Mg Tab PO 05/15/24 21:01 1 tablet Q12HR JESSICA Administration Budesonide 0.5 mg 05/09/24 20:00 05/15/24 07:23 Budesonide Respule Neb 0.5 Mg/2 Ml Amp INHALATION 0.5 mg Q12HRT JESSICA Administration Lidocaine HCl 30 ml/ Al Hydrox 0 ml 05/10/24 05:00 05/15/24 09:01 /Mg Hydrox/Simethicone 30 ml/ PO 5 ml Diphenhydramine HCl 75 mg Q4HWA JESSICA Administration Cyanocobalamin 2,000 mcg 05/10/24 09:00 05/15/24 09:00 Cyanocobalamin 1,000 Mcg Tablet PO 2,000 mcg QAM JESSICA Administration Cyanocobalamin 500 mcg 05/10/24 09:00 05/15/24 09:00 Cyanocobalamin 500 Mcg Tablet PO 500 mcg QAM JESSICA Administration Ergocalciferol 50,000 units 05/19/24 09:00 Ergocalciferol 50,000 Units Capsule PO Mo@0900 [facility] Ferrous Sulfate 325 mg 05/10/24 09:00 05/15/24 09:00 Ferrous Sulfate [address] BY MOUTH 325 mg DAILY JESSICA Administration Folic Acid 1 mg 05/10/24 09:00 05/15/24 09:00 Folic Acid 1 Mg Tablet PO 1 mg DAILY JESSICA Administration Furosemide 40 mg 05/11/24 14:00 05/15/24 09:05 Furosemide Inj 40 Mg/4 Ml Vial IV PUSH 40 mg DAILY JESSICA Administration Guaifenesin 1,200 mg 05/09/24 21:00 05/15/24 09:00 Guaifenesin 12 Hr 600 Mg Tabcr PO 1,200 mg Q12HR JESSICA Administration Heparin Sodium (Beef Lung) 50 units 05/10/24 09:00 05/15/24 09:05 Heparin Flush 50 Units/5 Ml Syringe IV PUSH 50 units QAM JESSICA Administration Heparin Sodium (Beef Lung) 50 units 05/09/24 10:01 Heparin Flush 50 Units/5 Ml Syringe IV PUSH PRN PRN after intermittent infusion Heparin Sodium (Beef Lung) 50 units 05/09/24 10:01 05/12/24 18:42 Heparin Flush 50 Units/5 Ml Syringe IV PUSH 50 units PRN PRN Administration after blood draws Heparin Sodium (Porcine) 500 units 05/09/24 10:01 05/13/24 19:52 Heparin Sodium Lock Flush 500 Units/5 Ml Syringe IV PUSH 500 units PRN PRN Administration see comments below Lactobacillus Acidophilus 1 tablet 05/11/24 13:00 05/15/24 09:00 Acidophilus/Bulgaricus Chewable Tablet PO 1 tablet QID JESSICA Administration Lorazepam 0.5 mg 05/09/24 16:06 Lorazepam (*Crx) 0.5 Mg Tablet PO Q8H PRN Anxiety Metoprolol Tartrate 12.5 mg 05/09/24 21:00 05/15/24 09:00 Metoprolol Tartrate 12.5 Mg Tablet PO 12.5 mg Q12HR JESSICA Administration Oxycodone HCl 5 mg 05/09/24 16:06 Oxycodone Hcl (*Crx) 5 Mg Tab Ir PO Q6H PRN Breakthrough Pain Oxycodone HCl 40 mg 05/09/24 21:00 05/15/24 09:00 Oxycodone Hcl (*Crx) 40 Mg Tab Sr 12hr PO 40 mg Q12HR JESSICA Administration Prednisone 40 mg 05/14/24 15:25 05/15/24 09:00 Prednisone 20 Mg Tablet PO 40 mg DAILY@0800 JESSICA Administration Pregabalin 225 mg 05/09/24 21:00 05/15/24 08:59 Pregabalin (*Crx) 75 Mg Capsule PO 225 mg Q12HR JESSICA Administration Rivaroxaban 20 mg 05/10/24 17:00 05/14/24 17:07 Rivaroxaban 20 Mg Tablet PO 20 mg DAILY@1700 JESSICA Administration Fluticasone/Salmeterol 2 puff 05/09/24 20:00 05/15/24 07:23 Fluticasone/Salmeterol 230-21 Mcg Inhaler 1 Puff INHALATION 2 puff Q12HRT JESSICA Administration Senna/Docusate Sodium 1 tab 05/10/24 09:00 05/15/24 09:00 Senna/Docusate Sodium Tablet PO 1 tab DAILY JESSICA Administration Sodium Chloride 10 ml 05/09/24 14:00 05/15/24 05:33 Central Line Flush IV PUSH 10 ml Q8HR JESSICA Administration Sodium Chloride 1 applic 05/09/24 21:00 05/14/24 20:31 Sodium Chloride Nasal Gel 14.1 Gm NASAL 1 applic HS JESSICA Administration Sodium Chloride 1 spray 05/10/24 17:00 05/15/24 09:01 Saline 0.65% Demetris Soln 44 Ml Btl NASAL 1 spray BID JESSICA Administration Sodium Chloride 1 spray 05/10/24 09:41 Saline 0.65% Demetris Soln 44 Ml Btl NASAL Q2H PRN Congestion Tamsulosin HCl 0.4 mg 05/10/24 09:00 05/15/24 09:00 Tamsulosin Hcl 0.4 Mg Capsule PO 0.4 mg DAILY JESSICA Administration Triamcinolone Acetonide 1 applic 05/09/24 16:06 Triamcinolone Acet 0.1% Cream 15 Gm Tube TOPICAL QID PRN psioriasis Radiology Results: ITS Impressions Chest X-Ray 05/09/24 10:44 IMPRESSION: 1. Persistent volume loss with chronic opacities in the posterior right mid to upper lung zone on CT. 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 2. No recent interval change in a small right pleural effusion with associated compressive atelectasis in the right lower lobe. 3. Difficult to absolutely exclude superimposed pneumonia however there are no new opacities to more specifically suggest this. Chest CTA 05/09/24 11:19 IMPRESSION: 1. No pulmonary embolism. 2. Bilateral scattered mild new lung disease, composed predominantly of tree-in- bud opacities and small groundglass opacities suspicious for pneumonia 3. Unchanged small right and new small left pleural effusions. 4. A couple regions of chronic consolidation with volume loss in the right mid to upper lung and right lower lung likely atelectasis/scarring related to reported treated lung cancer. 5. Unchanged scattered subcentimeter solid pulmonary nodules and scattered patchy sclerotic bone lesions consistent with metastatic disease. Labs Labs: Laboratory Results - last 24 hr 05/09/24 05/09/24 05/15/24 15:41 17:11 05:27 WBC 17.0 H RBC 3.26 L Hgb 8.2 L Hct 28.3 L MCV 86.8 MCH 25.2 L MCHC 29.0 L RDW 20.7 H Plt Count 176 MPV 11.3 H Immature Gran % (Auto) Not Reportable Neut % (Auto) Not Reportable Lymph % (Auto) Not Reportable Nelson % (Auto) Not Reportable Eos % (Auto) Not Reportable Baso % (Auto) Not Reportable Lymph # (Auto) Not Reportable Nelson # (Auto) Not Reportable Eos # (Auto) Not Reportable Baso # (Auto) Not Reportable Abs Immat Gran (auto) Not Reportable Absolute Neuts (auto) Not Reportable Absolute Nucleated RBC Not Reportable Total Counted 100 Neutrophils % (Manual) 74 H Band Neutrophils % 10 H Lymphocytes % (Manual) 11 L Monocytes % (Manual) 4 Metamyelocytes % 1 Nucleated RBC % Not Reportable Abs Neuts (Manual) 14.28 H Abs Lymphs (Manual) 1.87 Abs Monocytes (Manual) 0.68 Platelet Estimate Adequate Large Platelets Present Polychromasia 1+ Hypochromasia 1+ Anisocytosis 2+ Ovalocytes 1+ Schistocytes None seen Sodium 137 Potassium 4.5 Chloride 99 Carbon Dioxide 34 H Anion Gap 4 BUN 18 Creatinine 1.00 Estim Creat Clear Calc 74 Estimated GFR > 60 Glucose 215 H Calcium 8.5 Magnesium 1.8 Total Bilirubin 0.3 AST 20 ALT 14 Alkaline Phosphatase 106 Total Protein 6.0 L Albumin 3.3 L Ur L.pneumophila Ag Not detected Mycoplasma pneumon IgM 57 Quality VTE Prophylaxis VTE prophylaxis: mechanical ordered and pharmacologic ordered
[2024-05-15 12:00] LABS: Glucose Point of Care 164 mg/dl (65-105)
[2024-05-15 12:41] LABS: CRP 1.1 mg/dL (<1.0)
[2024-05-15] MEDS: LEVALBUTEROL NEB 1.25 MG/3 ML INHALATION ×2 (13:20→20:49)
[2024-05-15] MEDS: IPRATROPIUM BR 0.02% INH SOLN 0.5 MG/2.5 ML VIAL INHALATION ×2 (13:20→20:49)
[2024-05-15 13:23] LABS: Procalcitonin 0.3 ng/mL
[2024-05-15 17:01] LABS: Glucose Point of Care 145 mg/dl (65-105)
[2024-05-15] MEDS: RIVAROXABAN 20 MG TABLET PO (17:24)
[2024-05-15] MEDS: FUROSEMIDE 40 MG TABLET PO (17:24)
[2024-05-15] MEDS: LORazepam (*CRX) 0.5 MG TABLET PO (17:29)
[2024-05-15 18:12] LABS: Glucose Point of Care 181 mg/dl (65-105)
--- NOTE | 2024-05-15 19:40 | PM.CNPUL ---
Assessment and Plan Assessment and plan (1) Pneumonia: Code(s): J18.9 - Pneumonia, unspecified organism Status: Acute Assessment and Plan: Patient was admitted with neutropenia, new infiltrates in his lungs on chest CTA, was sick with epistaxis and his usual yellow thick sputum production. He is improving with vibratory vest therapy. This allows him to mobilize more secretions. WBC is up to 18, out of the critically low neutropenic zone, taking (2) Epistaxis: Code(s): R04.0 - Epistaxis Status: Acute Assessment and Plan: This was the main reason for his admission, has resolved but is nares still have blood. He has mucositis, had chemotherapy over a week before this admission. (3) Chronic respiratory failure with hypoxia, on home oxygen therapy: Code(s): J96.11 - Chronic respiratory failure with hypoxia; Z99.81 - Dependence on supplemental oxygen Status: Acute Assessment and Plan: Oxygen requirement is where he uses at home, 3 L around the clock sometimes turning it up with exertion but generally he is sedentary. Saturation 99% on 3 L, could be turned down. (4) Radiation fibrosis: Status: Acute Assessment and Plan: He had radiation to the right upper lung where his non-small cell lung cancer was initially diagnosed, has architectural distortion (5) Metastatic non-small cell lung cancer: Code(s): C34.90 - Malignant neoplasm of unspecified part of unspecified bronchus or lung Status: Acute Assessment and Plan: Stage IV non small cell lung cancer, mets to bone. Had his left chest port accessed this admission, although he is always concerned about which staff is involved; previous admission, someone accessed his port incorrectly, tilted the port with intense pain, and the entire port is now tilted, more difficult to access. He is managed by Dr Baez. (6) Chronic obstructive pulmonary disease: Qualifiers: COPD type: unspecified COPD Qualified Code(s): J44.9 - Chronic obstructive pulmonary disease, unspecified Code(s): J44.9 - Chronic obstructive pulmonary disease, unspecified Status: Acute Assessment and Plan: Plan plan: He feels much improved compared to 05/09 admission. Epistaxis stopped, he is back on anticoagulation. 1. He would benefit from vibratory vest at his home. His workers' compensation hearings officer can order this from the office. He sees Marti Benavides. The patient has been admitted 5 times in the last 6 months with respiratory distress, pneumonia, increased secretions, and inability to keep his airways clear at home. I do not see bronchiectasis on images. Having a diagnosis of bronchiectasis is helpful in getting vibratory vests approved for home use. May need to review with radiologist and his regular workers' compensation hearings officer. 2. He needs to use Cornet valve qid, graham after each vest use. He needs to take this home for later use. 3. He has not had pulmonary rehab, has bone mets that are in his spine, not a surgical candidate for having these stabilized. He may have to wait until his current chemo is over, and his Paget's is better treated. 4. He can go home on his usual home pulmonary meds, O2, - he has a portable very loud device, would like an Inogen because it is silent. This is an aspirational goal that he will need to work on after discharge with his DME provider. He appears stable, close to his baseline. He is stable for discharge from a pulmonary standpoint tomorrow or the day after. He does not see us as an out patient. Thank you. Please recall if needed. History of Present Illness History of Present Illness Consult date: 05/16/24 Requesting physician: Anjali Chan APRN Chief complaint: Pneumonia Narrative: patient was seen May 16 at 15:00 Room 254 NEW: Jn Garay is a 63-year-old man with COPD, complicated lung cancer and recurrent pneumonia, 5 admissions in the last 6 months. He uses O2 at home, usually at rest 3 L-4 L with exertion p.r.n. He is sedentary most of the time. He is managed by workers' compensation hearings officer Dr Amor Leroy at [facility], with oncologist Dr Baez. He was admitted May 09 with his first episode of severe epistaxis and shortness of breath. His anticoagulation was stopped; wbc was 1.5, CXR was abnormal, CTA obtained 05/09 with new areas of tree in bud opacities consistent with pneumonia bilaterally. He was treated with filgrastim for the neutropenia. He did not have fever. He was treated with ceftriaxone and azithromycin, discontinued and switched to Augmentin. He completed 5 days of azithromycin and Augmentin, finished yesterday May 15. Prednisone was added due to wheezing and shortness of breath. He started using vibratory vest with excellent response. He is interested in having this to use at home to handle secretions. He feels better compared to admission, epistaxis has improved but he still has very sore mucosa in his nose and mouth. Stomatitis improved with Magic mouthwash. He tells me that he is interested in a 2nd opinion out patient for his lung cancer management. Lung cancer history: stage IA (T1c N0 M0) non-small cell lung cancer right upper lobe in June 2018, inoperable; treated with SBRT late November 2018. 2021- diagnosed with relapse of his lung cancer which was metastatic to right supraclavicular, right hilar, mediastinal nodes and m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s; palliative radiation therapy to the lung between February 16 through March 10, 2022 plus EGFR tyrosine receptor antagonist, osimertinib. Alimta and Keytruda with the last treatment in January 2024. 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 DATA * 05/09/24 CXR; Persistent volume loss in the right hemithorax and unchanged consolidation in the posterior right mid to upper lung zone and at the posterior right lower lung zone, bladder likely due at least in part to a small right pleural effusion. Lung remains clear. No pneumothorax or left-sided pleural effusion. Arch size is normal. Median sternotomy wires and mediastinal surgical clips are seen, likely from prior coronary artery bypass grafting. Left internal jugular central venous port catheter with distal tip at the caudal superior vena cava. Spinal stimulator leads extend the length of the visualized lower cervical to upper lumbar central canal with lead tips terminating in the upper cervical spine on the prior radiographs. There also appears. The tip of a intrathecal catheter projects over the posterior central canal of the lower thoracic spine. IMPRESSION: 1. Persistent volume loss with chronic opacities in the posterior right mid to upper lung zone on CT. 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 2. No recent interval change in a small right pleural effusion with associated compressive atelectasis in the right lower lobe. 3. Difficult to absolutely exclude superimposed pneumonia however there are no new opacities to more specifically suggest this. * 05/09/2024; CTA No pulmonary embolism. Small bilateral pleural effusions. Increased size of a region of consolidation at the posterior right lower lobe with subtle surrounding tree-in-bud opacities suggestive of pneumonia superimposed over chronic atelectasis/scarring. Similar there are new small centrilobular groundglass opacities and tree-in-bud opacities in the right upper and middle lung at the periphery of an unchanged region of consolidation with volume loss and architectural distortion at the posterior right upper lung likely related to radiation fibrosis for reported prior lung cancer. New small patchy region of groundglass opacity and a few small centrilobular nodules at the junction of the lingula and left upper lobe also suspicious for pneumonia. There are a few unchanged larger and more solid-appearing subcentimeter pulmonary nodules most prominent in the left lower lobe suspicious for metastatic disease. No pulmonary edema or pneumothorax. Heart size is normal but shifted towards the right due to the volume loss in the right lung. No pericardial effusion. Left internal jugular central venous port catheter with distal tip at the superior cavoatrial junction. Thoracic aorta is normal in caliber with no dissection. No pathologically enlarged thoracic lymphadenopathy. Cholecystectomy clips at the gallbladder fossa. Diffuse hepatic steatosis. Median sternotomy. Scattered patchy sclerotic bone lesions most prominent in the lower thoracic spine consistent with metastatic disease. Distal tip of an intrathecal catheter likely for pain management in the posterior central canal at the level of T9. There are spinal stimulator leads entering the central canal at level of T12-L1 which extend through the thoracic and lower cervical central canal extending beyond the cephalad margin of the field of imaging. IMPRESSION: 1. No pulmonary embolism. 2. Bilateral scattered mild new lung disease, composed predominantly of tree-in-bud opacities and small groundglass opacities suspicious for pneumonia 3. Unchanged small right and new small left pleural effusions. 4. A couple regions of chronic consolidation with volume loss in the right mid to upper lung and right lower lung likely atelectasis/scarring related to reported treated lung cancer. 5. Unchanged scattered subcentimeter solid pulmonary nodules and scattered patchy sclerotic bone lesions consistent with metastatic disease. Review of Systems Review of Systems: All systems reviewed & are unremarkable except as noted in HPI and below [facility] Past Medical History Medical History (Updated 05/16/24 @ 16:42 by Marialuisa Tovar MD) Adenocarcinoma, lung Non-small cell carcinoma diagnosed June 2018. Follows with Dr. Baez and Dr. Cavazos; underwent radiation therapy from 12/05/2018 to 12/18/2018 and again in fall 2021 due to recurrence. Now with metastatic disease to lymph nodes and bone. He is currently receiving chemotherapy and has plans to start Keytruda on August 18. Anxiety Atrial fibrillation s/p cardiac ablation by Dr. Tom Oakley at [facility] Benign prostatic hyperplasia Cardiac myxoma Left atrial myxoma noted on echocardiogram February 2018. Followed by Dr. Parson at [facility] last seen around December 2018. Chronic anemia Chronic anticoagulation Chronic obstructive pulmonary disease uses 3 L prn Chronic pain syndrome Due to chronic lower back pain after complications with lower spinal fusion 2009. Chronic respiratory failure with hypoxia, on home oxygen therapy History of DVT (deep vein thrombosis) Right upper extremity DVT and bilateral PE December 2018 for which he took Xarelto for several months. History of pulmonary embolism (12/2018) Hypertension Reports he is no longer on medications for such. Peripheral neuropathy Seasonal allergies Surgical History Surgical History (Updated 05/09/24 @ 14:36 by Traci Dawn PA-C) History of appendectomy In the History of carpal tunnel release Left 2010 History of cholecystectomy History of elbow surgery Left elbow ulnar neurolysis History of lumbar fusion Anterior and posterior L4-S1 fusion 2009 History of open heart surgery (~2017) Status post resection of atrial myxoma. History of transurethral resection of prostate Family History Family History Father Acute myocardial infarction Pulmonary embolism Sibling Breast cancer Mother Family history of chronic obstructive pulmonary disease Social History Social History Social History: Mr. Garay lives with his ex- Edna in [place]. They have 2 children. He is on disability but used to work as a fork lift truck operator. He denies significant alcohol use, drinks socially. Smoked 2 packs per day of cigarettes x 40 years and quit [place] 2017. Denies other substance use. Long-term opioid use due to chronic back pain. Ambulates without a cane or walker at home. He designates his ex- as his surrogate decision maker and he wishes to be a full code however, he states he would not want to be on a ventilator for long-term. Smoking packs per day: 2 Smoking cigarettes per day: 40.0 Years smoked: 40 Smoking pack-years: 80.00 Smoking status: Former smoker Second hand tobacco smoke exposure: Yes Alcohol intake: never Substance use: never Substance use type: does not use Do You Feel Safe in your Home?: Yes Lack of Transportation: No Lack of Food: Never True Current Housing: I Have Housing Concerned About Future Housing: No Difficulty Paying Gas/Electric Bills: No Difficulty Paying for Meds: No Currently Unemployed: No Education: Decline to Answer Difficulty w/ Childcare or Family Care: No Living arrangements: with family Occupation/Education: unemployed Spiritual care concerns: No Meds Home Medications and Allergies Home Medications Medication Instructions Recorded Confirmed Type pregabalin 225 mg capsule (Lyrica) 225 mg PO BID 11/07/19 05/09/24 History triamcinolone acetonide 0.1 % 1 applic topical QID PRN psioriasis 11/07/19 05/09/24 History topical cream (Triderm) cholecalciferol (vitamin D3) 1,250 1,250 mcg PO WEEKLY 09/09/20 05/09/24 History mcg (50,000 unit) capsule tamsulosin 0.4 mg capsule 0.4 mg PO DAILY 01/10/22 05/09/24 History metoprolol tartrate 25 mg tablet 12.5 mg PO BID 04/22/22 05/09/24 History lorazepam 0.5 mg tablet 0.5 mg PO Q8H PRN Anxiety #10 tabs 04/26/22 05/09/24 Rx albuterol sulfate 90 mcg/actuation 2 inh inhalation Q4H PRN Shortness 05/15/22 05/09/24 History aerosol inhaler Of Breath Or Wheezing ferrous sulfate 325 mg (65 mg 325 mg PO DAILY 07/18/22 05/09/24 History iron) tablet (iron) folic acid 1 mg tablet 1 mg PO DAILY 07/26/22 05/09/24 History omeprazole 40 mg capsule,delayed 40 mg PO DAILY 08/03/22 05/09/24 History release ondansetron HCl 8 mg tablet 8 mg PO QID PRN NAUSEA 08/03/22 05/09/24 History rivaroxaban 20 mg tablet (Xarelto) 20 mg PO DAILY@1700 #30 tabs 08/04/22 05/09/24 Rx oxycodone 40 mg tablet,crush 40 mg PO Q12H 01/02/24 05/09/24 History resistant,extended release 12 hr acetaminophen 500 mg tablet 500 mg PO Q6H PRN Pain (Scale 03/07/24 05/09/24 History Score 1-3) budesonide 0.5 mg/2 mL suspension 0.5 mg inhalation BID 03/07/24 05/09/24 History for nebulization cyanocobalamin (vitamin B-12) 2,500 mcg PO DAILY 03/07/24 05/09/24 History fluticasone propion-salmeterol 2 puff inhalation Q12H 03/07/24 05/09/24 History furosemide 40 mg tablet 40 mg PO DAILY PRN swelling 03/07/24 05/09/24 History naloxone 4 mg/actuation nasal 4 mg intranasal PER PKG DIR 03/07/24 05/09/24 History spray (Narcan) oxycodone 5 mg capsule 5 mg PO Q6H PRN Breakthrough Pain 03/07/24 05/09/24 History guaifenesin 600 mg tablet, 1,200 mg PO Q12HR #10 tabs 03/12/24 05/09/24 Rx extended release 12 hr (Mucus Relief ER) sennosides 8.6 mg-docusate sodium 1 tab-cap PO DAILY 03/25/24 05/09/24 History 50 mg tablet (Senokot-S) Allergies Allergy/AdvReac Type Severity Reaction Status Date / Time bee venom protein (honey bee) Allergy Unknown Swelling Verified 05/07/24 10:33 Vital Signs Vital Signs - 24 hr 05/14/24 20:20 05/14/24 20:21 05/14/24 20:45 Temperature 36.4 C L Pulse Rate 88 90 Respiratory Rate 20 Blood Pressure 116/48 L Pulse Oximetry 99 Oxygen Delivery Oxygen Flow Rate Fraction of Inspired Oxygen 05/14/24 20:00 05/15/24 01:20 05/14/24 20:39 Temperature Pulse Rate 88 Respiratory Rate 20 Blood Pressure 115/61 Pulse Oximetry 99 Oxygen Delivery Nasal Cannula Oxygen Flow Rate 3.5 Fraction of Inspired Oxygen 05/14/24 20:48 05/15/24 01:35 05/15/24 01:45 Temperature Pulse Rate 91 83 85 Respiratory Rate 20 20 20 Blood Pressure Pulse Oximetry Oxygen Delivery Oxygen Flow Rate Fraction of Inspired Oxygen 05/15/24 05:44 05/15/24 07:24 05/15/24 07:24 Temperature 36.8 C Pulse Rate 92 98 Respiratory Rate 20 20 Blood Pressure 123/69 Pulse Oximetry 98 97 Oxygen Delivery Nasal Cannula Oxygen Flow Rate 4 Fraction of Inspired Oxygen 36 05/15/24 07:40 05/15/24 09:00 05/15/24 09:00 Temperature Pulse Rate 106 H 106 H Respiratory Rate 20 Blood Pressure Pulse Oximetry 97 Oxygen Delivery Nasal Cannula Oxygen Flow Rate 3 Fraction of Inspired Oxygen 05/15/24 13:21 05/15/24 13:21 05/15/24 13:33 Temperature Pulse Rate 100 103 H Respiratory Rate 20 20 Blood Pressure Pulse Oximetry 96 Oxygen Delivery Nasal Cannula Oxygen Flow Rate 3.5 Fraction of Inspired Oxygen 34 05/15/24 14:00 Temperature 36.4 C Pulse Rate 98 Respiratory Rate 16 Blood Pressure 112/60 Pulse Oximetry 100 Oxygen Delivery Oxygen Flow Rate Fraction of Inspired Oxygen Exam Narrative: GEN: Alert, oriented, not in distress. Nasal cannula O2 3 L/min, saturation 99%, O2 can be weaned HEENT: pupils are equal, EOMI, symmetrical face; oral membranes dry, edentulous, small clear vesicles on the hard palate. Mallampati II airway. Nares with scattered areas of hemorrhage on the mucosa NECK: Trachea is midline CHEST: Equal air entry, symmetric excursion, mostly clear breath sounds, no wheezes or crackles CV: Regular S1S2; on the right sternal border there is a 2/6 systolic ejection murmur without radiation, no gallop ABD : (+) bowel sounds Extremities : (+) clubbing of fingernails, pale nail beds, quick capillary refill. PSYCH: normal thought and speech Results Laboratory Findings 05/16/24 05:39 05/16/24 05:39 ABG, PT/INR, D-dimer: PT/INR, D-dimer PT 21.3 Seconds (11.1-14.7) H 05/09/24 10:16 INR 1.8 05/09/24 10:16 Abnormal lab findings: Abnormal Labs 05/09/24 05/09/24 05/10/24 10:16 18:15 04:39 WBC 1.5 L* 1.7 L* RBC 3.65 L 3.07 L Hgb 9.1 L 8.5 L 7.8 L Hct 30.8 L 28.4 L 26.1 L MCH 24.9 L 25.4 L MCHC 29.5 L 29.9 L RDW 19.8 H 19.7 H Plt Count 139 L MPV 11.5 H 11.2 H Immature Gran % (Auto) Neut % (Auto) [place] % (Auto) Lymph # (Auto) [place] # (Auto) Abs Immat Gran (auto) Absolute Neuts (auto) Neutrophils % (Manual) Band Neutrophils % Lymphocytes % (Manual) Monocytes % (Manual) Basophils % (Manual) Abs Neuts (Manual) 0.84 L Abs Lymphs (Manual) 0.48 L Abs Monocytes (Manual) Abs Basophils (Manual) PT 21.3 H APTT 68.3 H Sodium Potassium 3.3 L Chloride 110 H Carbon Dioxide Anion Gap 1 L BUN 8 L 7 L Creatinine 0.60 L Glucose 113 H 112 H POC Capillary Glucose Calcium 7.2 L 6.8 L C-Reactive Protein 8.5 H NT-Pro-B Natriuret Pep 495 H Total Protein 6.0 L Albumin 3.2 L PTH Intact 05/10/24 05/11/24 05/11/24 12:47 00:25 05:13 WBC 1.9 L* 3.2 L 2.9 L RBC 3.32 L 3.26 L 3.09 L Hgb 8.4 L 8.2 L 7.9 L Hct 28.1 L 27.6 L 26.1 L MCH 25.3 L 25.2 L 25.6 L MCHC 29.9 L 29.7 L 30.3 L RDW 19.7 H 19.7 H 19.7 H Plt Count 147 L 145 L MPV 11.0 H 10.5 H 10.6 H Immature Gran % (Auto) 0.6 H 1.0 H Neut % (Auto) 36.4 L 41.3 L 42.9 L [place] % (Auto) 19.8 H 21.0 H 19.7 H Lymph # (Auto) 0.75 L [place] # (Auto) 0.7 H Abs Immat Gran (auto) Absolute Neuts (auto) 0.7 L Neutrophils % (Manual) Band Neutrophils % Lymphocytes % (Manual) Monocytes % (Manual) Basophils % (Manual) Abs Neuts (Manual) Abs Lymphs (Manual) Abs Monocytes (Manual) Abs Basophils (Manual) PT APTT Sodium 136 L 136 L Potassium Chloride 110 H 109 H 109 H Carbon Dioxide Anion Gap 0 L 2 L BUN 6 L 7 L 7 L Creatinine Glucose 124 H 122 H POC Capillary Glucose Calcium 7.6 L 8.3 L C-Reactive Protein NT-Pro-B Natriuret Pep Total Protein Albumin PTH Intact 207.3 H 05/11/24 05/12/24 05/12/24 18:44 05:32 18:49 WBC 3.0 L 11.5 H RBC 3.14 L 3.29 L 3.36 L Hgb 8.0 L 8.2 L 8.5 L Hct 26.6 L 27.7 L 28.3 L MCH 25.5 L 24.9 L 25.3 L MCHC 30.1 L 29.6 L 30.0 L RDW 19.6 H 19.6 H 19.6 H Plt Count 142 L 146 L MPV 11.3 H 11.1 H Immature Gran % (Auto) 7.0 H Neut % (Auto) 36.5 L [place] % (Auto) 21.7 H Lymph # (Auto) [place] # (Auto) 0.7 H Abs Immat Gran (auto) 0.21 H Absolute Neuts (auto) 1.1 L Neutrophils % (Manual) 40 L Band Neutrophils % 9 H 15 H Lymphocytes % (Manual) 11.0 L Monocytes % (Manual) 10 H 11 H Basophils % (Manual) 4 H Abs Neuts (Manual) 8.85 H Abs Lymphs (Manual) Abs Monocytes (Manual) 1.26 H Abs Basophils (Manual) 0.19 H 0.11 H PT APTT Sodium 136 L Potassium Chloride Carbon Dioxide 32 H Anion Gap 3 L BUN Creatinine Glucose 122 H 197 H POC Capillary Glucose Calcium C-Reactive Protein NT-Pro-B Natriuret Pep Total Protein Albumin PTH Intact 05/13/24 05/13/24 05/15/24 05:35 19:51 05:27 WBC 16.3 H 14.0 H 17.0 H RBC 3.12 L 3.10 L 3.26 L Hgb 7.8 L 7.6 L 8.2 L Hct 26.3 L 26.4 L 28.3 L MCH 25.0 L 24.5 L 25.2 L MCHC 29.7 L 28.8 L 29.0 L RDW 19.9 H 20.4 H 20.7 H Plt Count MPV 11.5 H 11.0 H 11.3 H Immature Gran % (Auto) Neut % (Auto) [place] % (Auto) Lymph # (Auto) [place] # (Auto) Abs Immat Gran (auto) Absolute Neuts (auto) Neutrophils % (Manual) 74 H Band Neutrophils % 15 H 10 H 10 H Lymphocytes % (Manual) 13 L 11 L Monocytes % (Manual) 10 H 2 L Basophils % (Manual) 2 H Abs Neuts (Manual) 12.38 H 10.64 H 14.28 H Abs Lymphs (Manual) Abs Monocytes (Manual) 1.63 H Abs Basophils (Manual) 0.16 H 0.28 H PT APTT Sodium Potassium Chloride Carbon Dioxide 33 H 36 H 34 H Anion Gap 2 L 1 L BUN Creatinine Glucose 120 H 124 H 215 H POC Capillary Glucose Calcium C-Reactive Protein NT-Pro-B Natriuret Pep Total Protein 6.0 L Albumin 3.3 L PTH Intact 05/15/24 05/15/24 05/15/24 11:56 16:52 18:09 WBC RBC Hgb Hct MCH MCHC RDW Plt Count MPV Immature Gran % (Auto) Neut % (Auto) [place] % (Auto) Lymph # (Auto) [place] # (Auto) Abs Immat Gran (auto) Absolute Neuts (auto) Neutrophils % (Manual) Band Neutrophils % Lymphocytes % (Manual) Monocytes % (Manual) Basophils % (Manual) Abs Neuts (Manual) Abs Lymphs (Manual) Abs Monocytes (Manual) Abs Basophils (Manual) PT APTT Sodium Potassium Chloride Carbon Dioxide Anion Gap BUN Creatinine Glucose POC Capillary Glucose 164 H 145 H 181 H Calcium C-Reactive Protein NT-Pro-B Natriuret Pep Total Protein Albumin PTH Intact
[2024-05-15] MEDS: SODIUM CHLORIDE NASAL GEL 14.1 GM 1 APPLIC NASAL (20:26)
[2024-05-15 21:45] LABS: Glucose Point of Care 132 mg/dl (65-105)
[2024-05-16] VITALS (13 sets, daily range): BP systolic 109–129; BP diastolic 54–71; PULSE 78–150; RESP 18–20; TEMP 36.5–36.8; O2SAT 97–99
[2024-05-16] MEDS: LORazepam (*CRX) 0.5 MG TABLET PO ×2 (01:29→18:00)
[2024-05-16] MEDS: IPRATROPIUM BR 0.02% INH SOLN 0.5 MG/2.5 ML VIAL INHALATION ×3 (02:40→20:40)
[2024-05-16] MEDS: LEVALBUTEROL NEB 1.25 MG/3 ML INHALATION ×3 (02:40→20:41)
[2024-05-16 05:48] LABS: Hemoglobin 8.3 g/dL (14.0-18.0); Mean Corpuscular HGB Conc 29.6 g/dl (32-36); Mean Corpuscular Hemoglobin 25.5 pg (26-34); Mean Corpuscular Volume 85.9 fl (80-100); Mean Platelet Volume 10.7 fl (7.4-10.4); Platelet Count Result 166 k/mm3 (150-375); Red Blood Count 3.26 M/mm3 (4.6-6.20); Red Cell Distribution Width 21.4 % (11.5-14.5)
[2024-05-16 05:55] LABS: Alanine Aminotransferase 14 U/L (6-50); Albumin Level 3.3 g/dL (3.5-5.1); Alkaline Phosphatase 102 U/L (38-126); Anion Gap 1 mmol/L (4-12); Aspartate Amino Transferase 26 U/L (17-59); Bilirubin,Total 0.3 mg/dL (0.2-1.3); Blood Urea Nitrogen 23 mg/dL (9-20); Calcium 8.4 mg/dL (8.4-10.2); Carbon Dioxide 38 mmol/L (22-30); Chloride 98 mmol/L (98-107); Estimated CRCL calculation 82 ml/min; Estimated Glomerular Filt Rate > 60; Glucose 95 mg/dL (65-110); Potassium 4.2 mmol/L (3.4-5.0); Sodium 137 mmol/L (137-145)
[2024-05-16 06:45] LABS: Band Neutrophils Percent 6 % (0-6); Lymphocytes Percent Manual 15 % (18-44); Monocytes Percent Manual 5 % (3-9); Neutrophils Percent Manual 74 % (46-73); Platelet Estimate Adequate (Adequate); Total Cells Counted 100
[2024-05-16 06:46] LABS: Anisocytosis 2+; Atypical Lymphocytes Present; Schistocytes None Seen
[2024-05-16 06:47] LABS: Hypochromasia 1+; Ovalocytes 1+
[2024-05-16 06:48] LABS: Polychromasia 1+
--- NOTE | 2024-05-16 07:39 | P.PNIM_ITS ---
Progress Note: A&P Assessment and Plan (1) Pneumonia: Code(s): J18.9 - Pneumonia, unspecified organism Status: Acute Assessment and Plan: improving * On 3L O2 at home. * 05/09 CTA small groundglass opacities suspicious for pneumonia, negative for PE * Initially on Rocephin and Azithromycin. Completed 5 days of azithromycin and on Augmentin through 05/15/24 * Prednisone 40 mg daily added due to expiratory wheezing and worsening shortness of breath. * WBC elevated to 17 which is likely reactive from addition of steroids. WBC on admission was 11.5-->bumped 16.3 (steroids stopped)--> WBC 14.0 (resumed steroids due to wheezing)--WBC 17.0. * DuoNebs. Changed to levalbuterol given tachycardia. * Has a hx of C-diff, monitor for diarrhea, currently resolved added probiotic * guaifenesin * CPT * Add CRP and Procal * Pulmonary consulted recommendations pending (2) Neutropenia: Code(s): D70.9 - Neutropenia, unspecified Status: Acute Assessment and Plan: * WBC improving 1.5<1.7<2.7 stable at baseline * history of metastatic adeno carcinoma of the lung * Continuing filgrastim per outpatient oncology recs, Dr. Baez 05/12/24: * WBC 4.5 RESOLVED now with leukocytosis could be from steroids (3) Epistaxis: Code(s): R04.0 - Epistaxis Status: Acute Assessment and Plan: * Blood count trending down and has some continued scant bleeding when he blows his nose, though minimal * Add ocean spray, continue saline gel, humidified O2 * Restart anticoagulation today and monitor if blood count stable and bleeding resolved 7.4 RESOLVED (4) Chronic anemia: Code(s): D64.9 - Anemia, unspecified Status: Acute Assessment and Plan: * Chronic * intermittent bloody nose * currently on Xarelto * monitor H&H * Transfuse PRBC if Hgb <7.0 * resumed xarelto 05/10 STABLE (5) Lung cancer m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: Code(s): C34.90 - Malignant neoplasm of unspecified part of unspecified bronchus or lung; C79.51 - Secondary malignant neoplasm of bone Status: Acute Assessment and Plan: * Follows with Dr. Baez outpatient * Has a Port, currently accessed * Treatment of neutropenia as noted * Magic mouthwash for mouth sores * Reports decreased mobility, cane at baseline: PT/OT (6) Chronic respiratory failure with hypoxia, on home oxygen therapy: Code(s): J96.11 - Chronic respiratory failure with hypoxia; Z99.81 - Dependence on supplemental oxygen Status: Acute Assessment and Plan: * On 3L Home O2. Has a bubbler at home * Humidified O2 for nosebleed (7) Chronic obstructive pulmonary disease: Code(s): J44.9 - Chronic obstructive pulmonary disease, unspecified Status: Acute Assessment and Plan: * Follows with pulmonary at [facility] * Home meds: fluticasone-salmeterol 2 puffs BID, budesonide nebs BID, Albuterol prn * resume daily prednisone 40 mg (8) Chronic anticoagulation: Code(s): Z79.01 - correction (current) use of anticoagulants Status: Acute Assessment and Plan: * Hx DVT and afib * Holding Rivaroxaban * Resume this afternoon if blood count stable * Xarelto resumed * monitor H&H (9) Hypocalcemia: Code(s): E83.51 - Hypocalcemia Status: Acute Assessment and Plan: * Calcium low, 6.8 * Check ionized calcium, vitamin D, PTH RESOLVED (10) Lower extremity edema: Code(s): R60.0 - Localized edema Status: Acute Assessment and Plan: * 2-3+ BLE * resume home lasix of 40 mg PO BID * elevated legs when at rest * LUCY kebede added * IV lasix x 1 Plan Code status: Full code per patient DVT prophylaxis: Xarelto Stress ulcer prophylaxis: Protonix 40 daily PT/OT notes: PT/OT at baseline Disposition: patient continues admission for medical management of pneumonia and nose bleeds on chronic anticoagulation patient with history of metastatic adeno carcinoma and wears 3 L supplemental oxygen chronically. Plan is for patient to return home when medically stable. Will need referral to GI for EGD outpatient Time Spent With Patient Time: 35 minutes Subjective Date/time seen: 05/16/24 07:39 Interval history: 63-year-old male with metastatic adenocarcinoma of the lung to he bones status post radiation on current on chemotherapy and immunotherapy, chronic obstructive pulmonary disease, chronic respiratory failure with hypoxia on home oxygen paroxysmal atrial fibrillation on chronic anticoagulation, and venous thromboembolism who presented to the emergency department via EMS from home with complaints of a nose bleed. pulmonology saw patient yesterday. patient states that his breathing is improving however he feels like it could be better and that his lower extremities are still extremely swollen Review of Systems Review of Systems: 12 systems were reviewed and are negativ e except for as per HPI. All systems reviewed & are unremarkable except as noted in HPI and below Exam Narrative: General: appears unwell, appears stated age, thin HEENT: normocephalic, atraumatic. Mucous membranes moist. EOMI, PERRLA, bilateral sclera anicteric, no conjunctival injection. Neck supple without JVD, lymphadenopathy, or bruit. Missing dentition. Respiratory: lung arounds are diminished but clear Cardiovascular: Regular rate and rhythm, normal S1-S2 upon auscultation. No murmurs, rubs, or clicks. PMI is nondisplaced, capillary refill less than 3 second. Abdomen: Soft, round, no pulsatile masses, nondistended and nontender. No rebound, no guarding. No CVA tenderness, no hepatosplenomegaly. Bowel sounds present to all four quadrants. No high pitch or tinkling sounds, resonant to percussion. Implanted pain pump to the left lower quadrant. Extremities: No cyanosis, clubbing. BLE edema piitting +2-3, Pulses are palpable 2/2. Active ROM to all four extremities. Neuro: Alert and orientated x 4. PERRLA. Cranial nerves 2-12 intact without focal deficit. Skin: Warm, dry, and intact, without rash, erythema, or lesion. Lines: implanted Mediport, nerve stimulator, and implanted pain pump Objective Data Vital Signs Vital Signs: Vital Signs - 24 hr 05/15/24 07:40 05/15/24 09:00 05/15/24 09:00 Temperature Pulse Rate 106 H 106 H Respiratory Rate 20 Blood Pressure Pulse Oximetry 97 Oxygen Delivery Nasal Cannula Oxygen Flow Rate 3 Fraction of Inspired Oxygen 05/15/24 13:21 05/15/24 13:21 05/15/24 13:33 Temperature Pulse Rate 100 103 H Respiratory Rate 20 20 Blood Pressure Pulse Oximetry 96 Oxygen Delivery Nasal Cannula Oxygen Flow Rate 3.5 Fraction of Inspired Oxygen 34 05/15/24 14:00 05/15/24 20:21 05/15/24 20:54 Temperature 97.6 F Pulse Rate 98 86 86 Respiratory Rate 16 20 Blood Pressure 112/60 Pulse Oximetry 100 Oxygen Delivery Oxygen Flow Rate Fraction of Inspired Oxygen 05/15/24 20:55 05/15/24 21:11 05/15/24 21:27 Temperature 97.7 F Pulse Rate 92 89 Respiratory Rate 20 18 Blood Pressure 107/66 Pulse Oximetry 96 97 Oxygen Delivery Nasal Cannula Oxygen Flow Rate 3.5 Fraction of Inspired Oxygen 05/15/24 20:00 05/16/24 02:40 05/16/24 05:33 Temperature 97.7 F Pulse Rate 97 78 Respiratory Rate 20 18 Blood Pressure 129/71 Pulse Oximetry 97 98 Oxygen Delivery Nasal Cannula Oxygen Flow Rate 3.5 Fraction of Inspired Oxygen Intake/Output Intake/Output: Intake & Output 05/13/24 05/14/24 05/15/24 05/16/24 23:59 23:59 23:59 23:59 Intake Total 1950 0500 2559 290 Balance 1950 1470 2557 290 Meds/Results Medications: Active Medications Generic Name Dose Route Start Last Admin Trade Name Freq PRN Reason Stop Dose Admin Acetaminophen 650 mg 05/09/24 14:44 05/12/24 05:46 Acetaminophen 325 Mg Tablet PO 650 mg Q6H PRN Administration Mild Pain (1-3) or Fever Albuterol 2 puff 05/09/24 16:06 05/15/24 17:30 Albuterol Sulfate (*Sp) Aerosol 1 Puff INHALATION 2 puff Q4H PRN Administration Shortness Of Breath Or Wheezing Budesonide 0.5 mg 05/09/24 20:00 05/15/24 20:49 Budesonide Respule Neb 0.5 Mg/2 Ml Amp INHALATION 0.5 mg Q12HRT JESSICA Administration Lidocaine HCl 30 ml/ Al Hydrox 0 ml 05/10/24 05:00 05/15/24 20:26 /Mg Hydrox/Simethicone 30 ml/ PO 5 ml Diphenhydramine HCl 75 mg Q4HWA JESSICA Administration Cyanocobalamin 2,000 mcg 05/10/24 09:00 05/15/24 09:00 Cyanocobalamin 1,000 Mcg Tablet PO 2,000 mcg QAM JESSICA Administration Cyanocobalamin 500 mcg 05/10/24 09:00 05/15/24 09:00 Cyanocobalamin 500 Mcg Tablet PO 500 mcg QAM JESSICA Administration Dextrose 12.5 gm 05/15/24 09:15 Dextrose 50% 25 Gm/50 Ml Syringe IV PUSH PRN PRN Hypoglycemia Protocol Ergocalciferol 50,000 units 05/19/24 09:00 Ergocalciferol 50,000 Units Capsule PO Mo@0900 JESSICA Ferrous Sulfate 325 mg 05/10/24 09:00 05/15/24 09:00 Ferrous Sulfate [address] BY MOUTH 325 mg DAILY JESSICA Administration Folic Acid 1 mg 05/10/24 09:00 05/15/24 09:00 Folic Acid 1 Mg Tablet PO 1 mg DAILY JESSICA Administration Furosemide 40 mg 05/15/24 17:00 05/15/24 17:24 Furosemide 40 Mg Tablet PO 40 mg BID JESSICA Administration Glucagon 1 mg 05/15/24 09:15 Glucagon For Inj 1 Mg Vial IM PRN PRN Hypoglycemia Protocol Glucose 15 gm 05/15/24 09:15 Glucose Oral Gel 15 Gm Of Glucse In 37.5 Gm Tube PO PRN PRN Hypoglycemia Protocol Guaifenesin 1,200 mg 05/09/24 21:00 05/15/24 20:20 Guaifenesin 12 Hr 600 Mg Tabcr PO 1,200 mg Q12HR JESSICA Administration Heparin Sodium (Beef Lung) 50 units 05/10/24 09:00 05/15/24 09:05 Heparin Flush 50 Units/5 Ml Syringe IV PUSH 50 units QAM JESSICA Administration Heparin Sodium (Beef Lung) 50 units 05/09/24 10:01 Heparin Flush 50 Units/5 Ml Syringe IV PUSH PRN PRN after intermittent infusion Heparin Sodium (Beef Lung) 50 units 05/09/24 10:01 05/12/24 18:42 Heparin Flush 50 Units/5 Ml Syringe IV PUSH 50 units PRN PRN Administration after blood draws Heparin Sodium (Porcine) 500 units 05/09/24 10:01 05/13/24 19:52 Heparin Sodium Lock Flush 500 Units/5 Ml Syringe IV PUSH 500 units PRN PRN Administration see comments below Dextrose 1,000 mls @ 100 mls/hr 05/15/24 09:15 Dextrose 5% 1,000 Ml IVPB PRN PRN Hypoglycemia Protocol Insulin Aspart 3 - 6 units 05/15/24 12:00 05/15/24 17:19 Insulin Aspart (*Bkc) 100 Units/Ml SUB-Q Not Given TIDWM [facility] Protocol Ipratropium [place] 0.5 mg 05/15/24 14:00 05/16/24 02:40 Ipratropium Br 0.02% Inh Soln 0.5 Mg/2.5 Ml Vial INHALATION 0.5 mg Q6HRT JESSICA Administration Lactobacillus Acidophilus 1 tablet 05/11/24 13:00 05/15/24 20:20 Acidophilus/Bulgaricus Chewable Tablet PO 1 tablet QID JESSICA Administration Levalbuterol HCl 1.25 mg 05/15/24 14:00 05/16/24 02:40 Levalbuterol Neb 1.25 Mg/3 Ml INHALATION 1.25 mg Q6HRT JESSICA Administration Lorazepam 0.5 mg 05/09/24 16:06 05/16/24 01:29 Lorazepam (*Crx) 0.5 Mg Tablet PO 0.5 mg Q8H PRN Administration Anxiety Metoprolol Tartrate 12.5 mg 05/09/24 21:00 05/15/24 20:21 Metoprolol Tartrate 12.5 Mg Tablet PO 12.5 mg Q12HR JESSICA Administration Oxycodone HCl 5 mg 05/09/24 16:06 Oxycodone Hcl (*Crx) 5 Mg Tab Ir PO Q6H PRN Breakthrough Pain Oxycodone HCl 40 mg 05/09/24 21:00 05/15/24 20:20 Oxycodone Hcl (*Crx) 40 Mg Tab Sr 12hr PO 40 mg Q12HR JESSICA Administration Prednisone 40 mg 05/14/24 15:25 05/15/24 09:00 Prednisone 20 Mg Tablet PO 40 mg DAILY@0800 JESSICA Administration Pregabalin 225 mg 05/09/24 21:00 05/15/24 20:20 Pregabalin (*Crx) 75 Mg Capsule PO 225 mg Q12HR JESSICA Administration Rivaroxaban 20 mg 05/10/24 17:00 05/15/24 17:24 Rivaroxaban 20 Mg Tablet PO 20 mg DAILY@1700 JESSICA Administration Fluticasone/Salmeterol 2 puff 05/09/24 20:00 05/15/24 20:49 Fluticasone/Salmeterol 230-21 Mcg Inhaler 1 Puff INHALATION 2 puff Q12HRT JESSICA Administration Senna/Docusate Sodium 1 tab 05/10/24 09:00 05/15/24 09:00 Senna/Docusate Sodium Tablet PO 1 tab DAILY JESSICA Administration Sodium Chloride 10 ml 05/09/24 14:00 05/15/24 20:28 Central Line Flush IV PUSH 10 ml Q8HR JESSICA Administration Sodium Chloride 1 applic 05/09/24 21:00 05/15/24 20:26 Sodium Chloride Nasal Gel 14.1 Gm NASAL 1 applic HS JESSICA Administration Sodium Chloride 1 spray 05/10/24 17:00 05/15/24 17:25 Saline 0.65% Demetris Soln 44 Ml Btl NASAL 1 spray BID JESSICA Administration Sodium Chloride 1 spray 05/10/24 09:41 Saline 0.65% Demetris Soln 44 Ml Btl NASAL Q2H PRN Congestion Tamsulosin HCl 0.4 mg 05/10/24 09:00 05/15/24 09:00 Tamsulosin Hcl 0.4 Mg Capsule PO 0.4 mg DAILY JESSICA Administration Triamcinolone Acetonide 1 applic 05/09/24 16:06 Triamcinolone Acet 0.1% Cream 15 Gm Tube TOPICAL QID PRN psioriasis Radiology Results: ITS Impressions Chest X-Ray 05/09/24 10:44 IMPRESSION: 1. Persistent volume loss with chronic opacities in the posterior right mid to upper lung zone on CT. 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 2. No recent interval change in a small right pleural effusion with associated compressive atelectasis in the right lower lobe. 3. Difficult to absolutely exclude superimposed pneumonia however there are no new opacities to more specifically suggest this. Chest CTA 05/09/24 11:19 IMPRESSION: 1. No pulmonary embolism. 2. Bilateral scattered mild new lung disease, composed predominantly of tree-in-bud opacities and small groundglass opacities suspicious for pneumonia 3. Unchanged small right and new small left pleural effusions. 4. A couple regions of chronic consolidation with volume loss in the right mid to upper lung and right lower lung likely atelectasis/scarring related to reported treated lung cancer. 5. Unchanged scattered subcentimeter solid pulmonary nodules and scattered patchy sclerotic bone lesions consistent with metastatic disease. Labs Labs: Laboratory Results - last 24 hr 05/15/24 05/15/24 05/15/24 11:56 12:20 12:26 WBC RBC Hgb Hct MCV MCH MCHC RDW Plt Count MPV Immature Gran % (Auto) Neut % (Auto) Lymph % (Auto) Keith % (Auto) Eos % (Auto) Baso % (Auto) Lymph # (Auto) Keith # (Auto) Eos # (Auto) Baso # (Auto) Abs Immat Gran (auto) Absolute Neuts (auto) Absolute Nucleated RBC Total Counted Neutrophils % (Manual) Band Neutrophils % Lymphocytes % (Manual) Monocytes % (Manual) Nucleated RBC % Abs Neuts (Manual) Abs Lymphs (Manual) Abs Monocytes (Manual) Atypical Lymphocytes Platelet Estimate Polychromasia Hypochromasia Anisocytosis Ovalocytes Schistocytes Sodium Potassium Chloride Carbon Dioxide Anion Gap BUN Creatinine Estim Creat Clear Calc Estimated GFR Glucose POC Capillary Glucose 164 H Calcium Magnesium Total Bilirubin AST ALT Alkaline Phosphatase C-Reactive Protein 1.1 Total Protein Albumin Procalcitonin 0.3 05/15/24 05/15/2405/15/24 16:52 18:09 21:32 WBC RBC Hgb Hct MCV MCH MCHC RDW Plt Count MPV Immature Gran % (Auto) Neut % (Auto) Lymph % (Auto) Keith % (Auto) Eos % (Auto) Baso % (Auto) Lymph # (Auto) Keith # (Auto) Eos # (Auto) Baso # (Auto) Abs Immat Gran (auto) Absolute Neuts (auto) Absolute Nucleated RBC Total Counted Neutrophils % (Manual) Band Neutrophils % Lymphocytes % (Manual) Monocytes % (Manual) Nucleated RBC % Abs Neuts (Manual) Abs Lymphs (Manual) Abs Monocytes (Manual) Atypical Lymphocytes Platelet Estimate Polychromasia Hypochromasia Anisocytosis Ovalocytes Schistocytes Sodium Potassium Chloride Carbon Dioxide Anion Gap BUN Creatinine Estim Creat Clear Calc Estimated GFR Glucose POC Capillary Glucose 145 H 181 H 132 H Calcium Magnesium Total Bilirubin AST ALT Alkaline Phosphatase C-Reactive Protein Total Protein Albumin Procalcitonin 05/16/24 05:39 WBC 18.0 H RBC 3.26 L Hgb 8.3 L Hct 28.0 L MCV 85.9 MCH 25.5 L MCHC 29.6 L RDW 21.4 H Plt Count 166 MPV 10.7 H Immature Gran % (Auto) Not Reportable Neut % (Auto) Not Reportable Lymph % (Auto) Not Reportable Keith % (Auto) Not Reportable Eos % (Auto) Not Reportable Baso % (Auto) Not Reportable Lymph # (Auto) Not Reportable Keith # (Auto) Not Reportable Eos # (Auto) Not Reportable Baso # (Auto) Not Reportable Abs Immat Gran (auto) Not Reportable Absolute Neuts (auto) Not Reportable Absolute Nucleated RBC Not Reportable Total Counted 100 Neutrophils % (Manual) 74 H Band Neutrophils % 6 Lymphocytes % (Manual) 15 L Monocytes % (Manual) 5 Nucleated RBC % Not Reportable Abs Neuts (Manual) 14.40 H Abs Lymphs (Manual) 2.70 Abs Monocytes (Manual) 0.90 Atypical Lymphocytes Present Platelet Estimate Adequate Polychromasia 1+ Hypochromasia 1+ Anisocytosis 2+ Ovalocytes 1+ Schistocytes None seen Sodium 137 Potassium 4.2 Chloride 98 Carbon Dioxide 38 H Anion Gap 1 L BUN 23 H Creatinine 0.90 Estim Creat Clear Calc 82 Estimated GFR > 60 Glucose 95 POC Capillary Glucose Calcium 8.4 Magnesium 2.0 Total Bilirubin 0.3 AST 26 ALT 14 Alkaline Phosphatase 102 C-Reactive Protein Total Protein 6.0 L Albumin 3.3 L Procalcitonin Quality VTE Prophylaxis VTE prophylaxis: mechanical ordered and pharmacologic ordered
[2024-05-16] MEDS: BUDESONIDE RESPULE NEB 0.5 MG/2 ML AMP INHALATION ×2 (07:49→20:41)
[2024-05-16] MEDS: FLUTICASONE/SALMETEROL 230-21 MCG INHALER 1 PUFF 2 PUFF INHALATION ×2 (08:07→20:43)
[2024-05-16 08:15] LABS: Glucose Point of Care 108 mg/dl (65-105)
[2024-05-16] MEDS: CENTRAL LINE FLUSH 10 ML IV PUSH ×2 (08:59→14:17)
[2024-05-16] MEDS: SIMETH PO ×4 (09:00→20:38)
[2024-05-16] MEDS: [UNRECOGNIZED DRUG - OTHER] PO ×4 (09:00→20:38)
[2024-05-16] MEDS: ALUMINUM PO ×4 (09:00→20:38)
[2024-05-16] MEDS: MAGNESIUM PO ×4 (09:00→20:38)
[2024-05-16] MEDS: LIDOCAINE HCL 2% PO ×4 (09:00→20:38)
[2024-05-16] MEDS: VISC PO ×4 (09:00→20:38)
[2024-05-16] MEDS: TAMSULOSIN HCL 0.4 MG CAPSULE PO (09:01)
[2024-05-16] MEDS: FUROSEMIDE 40 MG TABLET PO (09:01)
[2024-05-16] MEDS: FOLIC ACID 1 MG TABLET PO (09:01)
[2024-05-16] MEDS: predniSONE 20 MG TABLET 40 MG PO (09:01)
[2024-05-16] MEDS: PREGABALIN (*CRX) 75 MG CAPSULE 225 MG PO ×2 (09:01→20:37)
[2024-05-16] MEDS: oxyCODONE HCL (*CRX) 40 MG TAB SR 12HR PO ×2 (09:02→20:37)
[2024-05-16] MEDS: CYANOCOBALAMIN 500 MCG TABLET PO (09:02)
[2024-05-16] MEDS: CYANOCOBALAMIN 1,000 MCG TABLET 2000 MCG PO (09:02)
[2024-05-16] MEDS: guaiFENesin 12 HR 600 MG TABCR 1200 MG PO ×2 (09:02→20:37)
[2024-05-16] MEDS: SENNA/DOCUSATE SODIUM TABLET 1 TAB PO (09:02)
[2024-05-16] MEDS: FERROUS SULFATE 325 MG TABLET DR BY MOUTH (09:02)
[2024-05-16] MEDS: ACIDOPHILUS/BULGARICUS CHEWABLE TABLET 1 TABLET PO ×4 (09:02→20:37)
[2024-05-16] MEDS: METOPROLOL TARTRATE 12.5 MG TABLET PO ×2 (09:03→20:40)
[2024-05-16] MEDS: SALINE 0.65% NAS SOLN 44 ML BTL 1 SPRAY NASAL (09:04)
[2024-05-16 11:53] LABS: Glucose Point of Care 132 mg/dl (65-105)
[2024-05-16] MEDS: FUROSEMIDE INJ 40 MG/4 ML VIAL IV PUSH (14:14)
[2024-05-16] MEDS: HEPARIN SODIUM LOCK FLUSH 500 UNITS/5 ML SYRINGE IV PUSH (14:17)
--- NOTE | 2024-05-16 15:44 | PCRCNOTE ---
Window of time for administration has passed. See next scheduled administration.
[2024-05-16 17:08] LABS: Glucose Point of Care 172 mg/dl (65-105)
[2024-05-16] MEDS: RIVAROXABAN 20 MG TABLET PO (17:44)
[2024-05-16] MEDS: ONDANSETRON HCL ODT 4 MG TABLET PO (19:51)
[2024-05-16 20:37] LABS: Glucose Point of Care 174 mg/dl (65-105)
[2024-05-16] MEDS: SODIUM CHLORIDE NASAL GEL 14.1 GM 1 APPLIC NASAL (20:38)
[2024-05-17] VITALS (10 sets, daily range): BP systolic 122–126; BP diastolic 68–70; PULSE 71–93; RESP 18–20; TEMP 36.6–36.8; O2SAT 99–100
[2024-05-17] MEDS: IPRATROPIUM BR 0.02% INH SOLN 0.5 MG/2.5 ML VIAL INHALATION ×3 (02:58→12:50)
[2024-05-17] MEDS: LEVALBUTEROL NEB 1.25 MG/3 ML INHALATION ×3 (02:58→12:50)
[2024-05-17] MEDS: LIDOCAINE HCL 2% PO ×3 (05:08→12:06)
[2024-05-17] MEDS: [UNRECOGNIZED DRUG - OTHER] PO ×3 (05:08→12:06)
[2024-05-17] MEDS: SIMETH PO ×3 (05:08→12:06)
[2024-05-17] MEDS: MAGNESIUM PO ×3 (05:08→12:06)
[2024-05-17] MEDS: VISC PO ×3 (05:08→12:06)
[2024-05-17] MEDS: ALUMINUM PO ×3 (05:08→12:06)
[2024-05-17] MEDS: BUDESONIDE RESPULE NEB 0.5 MG/2 ML AMP INHALATION (07:00)
[2024-05-17] MEDS: FLUTICASONE/SALMETEROL 230-21 MCG INHALER 1 PUFF 2 PUFF INHALATION (07:00)
[2024-05-17 07:30] LABS: Hematocrit 29.3 % (42.0-52.0); Hemoglobin 8.5 g/dL (14.0-18.0); Mean Corpuscular Hemoglobin 25.1 pg (26-34); Mean Corpuscular Volume 86.7 fl (80-100); Mean Platelet Volume 10.7 fl (7.4-10.4); Platelet Count Result 153 k/mm3 (150-375); Red Blood Count 3.38 M/mm3 (4.6-6.20); Red Cell Distribution Width 21.8 % (11.5-14.5); White Blood Count 20.7 K/mm3 (4.5-10.0)
[2024-05-17 07:47] LABS: Alanine Aminotransferase 21 U/L (6-50); Albumin Level 3.5 g/dL (3.5-5.1); Alkaline Phosphatase 94 U/L (38-126); Anion Gap 1 mmol/L (4-12); Aspartate Amino Transferase 31 U/L (17-59); Bilirubin,Total 0.3 mg/dL (0.2-1.3); Blood Urea Nitrogen 29 mg/dL (9-20); Calcium 8.5 mg/dL (8.4-10.2); Carbon Dioxide 38 mmol/L (22-30); Chloride 97 mmol/L (98-107); Estimated CRCL calculation 82 ml/min; Estimated Glomerular Filt Rate > 60; Glucose 113 mg/dL (65-110); Magnesium 2.3 mg/dL (1.6-2.3); Potassium 4.5 mmol/L (3.4-5.0); Sodium 136 mmol/L (137-145)
[2024-05-17 08:18] LABS: Glucose Point of Care 138 mg/dl (65-105)
[2024-05-17 09:09] LABS: Band Neutrophils Percent 6 % (0-6); Lymphocytes Absolute Manual 2.07 K/mm3 (1.1-4.5); Lymphocytes Percent Manual 10 % (18-44); Monocytes Absolute Manual 0.82 K/mm3 (0.1-0.90); Monocytes Percent Manual 4 % (3-9); Myelocytes Percent 3 %; Neutrophils Absolute Manual 17.18 K/mm3 (1.3-6.7); Neutrophils Percent Manual 77 % (46-73); Total Cells Counted 100
[2024-05-17 09:10] LABS: Anisocytosis 2+; Basophilic Stippling 1+; Hypochromasia 1+; Ovalocytes 1+; Platelet Estimate Adequate (Adequate); Schistocytes None Seen
[2024-05-17] MEDS: PREGABALIN (*CRX) 75 MG CAPSULE 225 MG PO (09:51)
[2024-05-17] MEDS: FOLIC ACID 1 MG TABLET PO (09:51)
[2024-05-17] MEDS: guaiFENesin 12 HR 600 MG TABCR 1200 MG PO (09:51)
[2024-05-17] MEDS: predniSONE 20 MG TABLET 40 MG PO (09:51)
[2024-05-17] MEDS: METOPROLOL TARTRATE 12.5 MG TABLET PO (09:51)
[2024-05-17] MEDS: TAMSULOSIN HCL 0.4 MG CAPSULE PO (09:51)
[2024-05-17] MEDS: CYANOCOBALAMIN 1,000 MCG TABLET 2000 MCG PO (09:52)
[2024-05-17] MEDS: ACIDOPHILUS/BULGARICUS CHEWABLE TABLET 1 TABLET PO ×2 (09:52→12:06)
[2024-05-17] MEDS: FERROUS SULFATE 325 MG TABLET DR BY MOUTH (09:52)
[2024-05-17] MEDS: SENNA/DOCUSATE SODIUM TABLET 1 TAB PO (09:52)
[2024-05-17] MEDS: oxyCODONE HCL (*CRX) 40 MG TAB SR 12HR PO (09:52)
[2024-05-17] MEDS: CYANOCOBALAMIN 500 MCG TABLET PO (09:52)
[2024-05-17] MEDS: SALINE 0.65% NAS SOLN 44 ML BTL 1 SPRAY NASAL (09:52)
[2024-05-17] MEDS: FUROSEMIDE 40 MG TABLET PO (09:55)
[2024-05-17] MEDS: LORazepam (*CRX) 0.5 MG TABLET PO (12:05)
[2024-05-17 12:08] LABS: Glucose Point of Care 155 mg/dl (65-105)
--- NOTE | 2024-05-17 13:54 | P.PNIM_ITS ---
Progress Note: A&P Assessment and Plan (1) Pneumonia: Code(s): J18.9 - Pneumonia, unspecified organism Status: Acute Assessment and Plan: improving * On 3L O2 at home. * 05/09 CTA small groundglass opacities suspicious for pneumonia, negative for PE * Initially on Rocephin and Azithromycin. Completed 5 days of azithromycin and on Augmentin through 05/15/24 * Prednisone 40 mg daily added due to expiratory wheezing and worsening shortness of breath. * WBC elevated to 17 which is likely reactive from addition of steroids. WBC on admission was 11.5-->bumped 16.3 (steroids stopped)--> WBC 14.0 (resumed steroids due to wheezing)--WBC 17.0. * DuoNebs. Changed to levalbuterol given tachycardia. * Has a hx of C-diff, monitor for diarrhea, currently resolved added probiotic * guaifenesin * CPT * Add CRP and Procal * Pulmonary consulted recommendations pending (2) Neutropenia: Code(s): D70.9 - Neutropenia, unspecified Status: Acute Assessment and Plan: * WBC improving 1.5<1.7<2.7 stable at baseline * history of metastatic adeno carcinoma of the lung * Continuing filgrastim per outpatient oncology recs, Dr. Baez 05/12/24: * WBC 4.5 RESOLVED now with leukocytosis could be from steroids (3) Epistaxis: Code(s): R04.0 - Epistaxis Status: Acute Assessment and Plan: * Blood count trending down and has some continued scant bleeding when he blows his nose, though minimal * Add ocean spray, continue saline gel, humidified O2 * Restart anticoagulation today and monitor if blood count stable and bleeding resolved 7.4 RESOLVED (4) Chronic anemia: Code(s): D64.9 - Anemia, unspecified Status: Acute Assessment and Plan: * Chronic * intermittent bloody nose * currently on Xarelto * monitor H&H * Transfuse PRBC if Hgb <7.0 * resumed xarelto 05/10 STABLE (5) Lung cancer m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: Code(s): C34.90 - Malignant neoplasm of unspecified part of unspecified bronchus or lung; C79.51 - Secondary malignant neoplasm of bone Status: Acute Assessment and Plan: * Follows with Dr. Baez outpatient * Has a Port, currently accessed * Treatment of neutropenia as noted * Magic mouthwash for mouth sores * Reports decreased mobility, cane at baseline: PT/OT (6) Chronic respiratory failure with hypoxia, on home oxygen therapy: Code(s): J96.11 - Chronic respiratory failure with hypoxia; Z99.81 - Dependence on supplemental oxygen Status: Acute Assessment and Plan: * On 3L Home O2. 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 Status: Acute Assessment and Plan: * Hx DVT and afib * Holding Rivaroxaban * Resume this afternoon if blood count stable * Xarelto resumed * monitor H&H (9) Hypocalcemia: Code(s): E83.51 - Hypocalcemia Status: Acute Assessment and Plan: * Calcium low, 6.8 * Check ionized calcium, vitamin D, PTH RESOLVED (10) Lower extremity edema: Code(s): R60.0 - Localized edema Status: Acute Assessment and Plan: * 2-3+ BLE * resume home lasix of 40 mg PO BID * elevated legs when at rest * LUCY kebede added * IV lasix x 1 Plan Code status: Full code per patient DVT prophylaxis: Xarelto Stress ulcer prophylaxis: Protonix 40 daily PT/OT notes: PT/OT at baseline Disposition: patient continues admission for medical management of pneumonia and nose bleeds on chronic anticoagulation patient with history of metastatic adeno carcinoma and wears 3 L supplemental oxygen chronically. Plan is for patient to return home when medically stable. 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 pulmonology saw patient yesterday. patient states that his breathing is improving however he feels like it could be better and that his lower extremities are still extremely swollen WBC up to 20, on steroids. Increased lasix at home to 80mg PLanning follow up with speech Review of Systems Review of Systems: 12 systems were reviewed and are negativ e except for as per HPI. All systems reviewed & are unremarkable except as noted in HPI and below Exam Narrative: General: appears unwell, appears stated age, thin HEENT: normocephalic, atraumatic. Mucous membranes moist. EOMI, PERRLA, bilateral sclera anicteric, no conjunctival injection. Neck supple without JVD, lymphadenopathy, or bruit. Missing dentition. Respiratory: lung arounds are diminished but clear Cardiovascular: Regular rate and rhythm, normal S1-S2 upon auscultation. No murmurs, rubs, or clicks. PMI is nondisplaced, capillary refill less than 3 second. Abdomen: Soft, round, no pulsatile masses, nondistended and nontender. No rebound, no guarding. No CVA tenderness, no hepatosplenomegaly. Bowel sounds present to all four quadrants. No high pitch or tinkling sounds, resonant to percussion. Implanted pain pump to the left lower quadrant. Extremities: No cyanosis, clubbing. BLE edema piitting +2-3, L>R Pulses are palpable 2/2. Active ROM to all four extremities. Neuro: Alert and orientated x 4. PERRLA. Cranial nerves 2-12 intact without focal deficit. Skin: Warm, dry, and intact, without rash, erythema, or lesion. Lines: implanted Mediport, nerve stimulator, and implanted pain pump Objective Data Vital Signs Vital Signs: Vital Signs - 24 hr 05/16/24 14:00 05/16/24 20:40 05/16/24 20:00 Temperature 97.7 F Pulse Rate 82 90 Respiratory Rate 19 Blood Pressure 109/57 L Pulse Oximetry 99 99 Oxygen Delivery Nasal Cannula Oxygen Flow Rate 3.5 05/16/24 22:18 05/16/24 20:44 05/17/24 03:00 Temperature 98.3 F Pulse Rate 150 H 90 75 Respiratory Rate 18 18 18 Blood Pressure 125/54 L Pulse Oximetry 98 Oxygen Delivery Oxygen Flow Rate 05/16/24 20:45 05/16/24 20:58 05/17/24 04:37 Temperature 98.2 F Pulse Rate 92 86 Respiratory Rate 18 18 Blood Pressure 122/68 Pulse Oximetry 98 100 Oxygen Delivery Nasal Cannula Oxygen Flow Rate 3.5 05/17/24 03:14 05/17/24 07:00 05/17/24 07:00 Temperature Pulse Rate 71 84 84 Respiratory Rate 18 18 18 Blood Pressure Pulse Oximetry 99 Oxygen Delivery Nasal Cannula Oxygen Flow Rate 3.5 05/17/24 07:10 05/17/24 09:51 05/17/24 12:50 Temperature Pulse Rate 85 85 86 Respiratory Rate 18 18 Blood Pressure Pulse Oximetry Oxygen Delivery Oxygen Flow Rate 05/17/24 13:00 05/17/24 10:00 Temperature Pulse Rate 93 Respiratory Rate 20 Blood Pressure Pulse Oximetry 99 Oxygen Delivery Nasal Cannula Oxygen Flow Rate 3 Intake/Output Intake/Output: Intake & Output 05/14/24 05/15/24 05/16/24 05/17/24 23:59 23:59 23:59 23:59 Intake Total 1470 2557 2710 684 Output Total 0 Balance 1470 2557 2710 684 Meds/Results Medications: Active Medications Generic Name Dose Route Start Last Admin Trade Name Freq PRN Reason Stop Dose Admin Acetaminophen 650 mg 05/09/24 14:44 05/12/24 05:46 Acetaminophen 325 Mg Tablet PO 650 mg Q6H PRN Administration Mild Pain (1-3) or Fever Albuterol 2 puff 05/09/24 16:06 05/15/24 17:30 Albuterol Sulfate (*Sp) Aerosol 1 Puff INHALATION 2 puff Q4H PRN Administration Shortness Of Breath Or Wheezing Budesonide 0.5 mg 05/09/24 20:00 05/17/24 07:00 Budesonide Respule Neb 0.5 Mg/2 Ml Amp INHALATION 0.5 mg Q12HRT JESSICA Administration Lidocaine HCl 30 ml/ Al Hydrox 0 ml 05/10/24 05:00 05/17/24 12:06 /Mg Hydrox/Simethicone 30 ml/ PO 5 ml Diphenhydramine HCl 75 mg Q4HWA JESSICA Administration Cyanocobalamin 2,000 mcg 05/10/24 09:00 05/17/24 09:52 Cyanocobalamin 1,000 Mcg Tablet PO 2,000 mcg QAM JESSICA Administration Cyanocobalamin 500 mcg 05/10/24 09:00 05/17/24 09:52 Cyanocobalamin 500 Mcg Tablet PO 500 mcg QAM JESSICA Administration Dextrose 12.5 gm 05/15/24 09:15 Dextrose 50% 25 Gm/50 Ml Syringe IV PUSH PRN PRN Hypoglycemia Protocol Ergocalciferol 50,000 units 05/19/24 09:00 Ergocalciferol 50,000 Units Capsule PO Mo@0900 [facility] Ferrous Sulfate 325 mg 05/10/24 09:00 05/17/24 09:52 Ferrous Sulfate [address] BY MOUTH 325 mg DAILY JESSICA Administration Folic Acid 1 mg 05/10/24 09:00 05/17/24 09:51 Folic Acid 1 Mg Tablet PO 1 mg DAILY JESSICA Administration Furosemide 40 mg 05/15/24 17:00 05/17/24 09:55 Furosemide 40 Mg Tablet PO 40 mg BID JESSICA Administration Glucagon 1 mg 05/15/24 09:15 Glucagon For Inj 1 Mg Vial IM PRN PRN Hypoglycemia Protocol Glucose 15 gm 05/15/24 09:15 Glucose Oral Gel 15 Gm Of Glucse In 37.5 Gm Tube PO PRN PRN Hypoglycemia Protocol Guaifenesin 1,200 mg 05/09/24 21:00 05/17/24 09:51 Guaifenesin 12 Hr 600 Mg Tabcr PO 1,200 mg Q12HR JESSICA Administration Dextrose 1,000 mls @ 100 mls/hr 05/15/24 09:15 Dextrose 5% 1,000 Ml IVPB PRN PRN Hypoglycemia Protocol Influenza Virus Vaccine 0.5 ml 05/17/24 13:53 Influenza Trivalent Vaccine 45 Mcg/0.5 Ml Syringe IM 05/17/24 13:54 .ONCE ONE Insulin Aspart 3 - 6 units 05/15/24 12:00 05/17/24 12:06 Insulin Aspart (*Bkc) 100 Units/Ml SUB-Q Not Given TIDWM [facility] Protocol Ipratropium Bruce 0.5 mg 05/15/24 14:00 05/17/24 12:50 Ipratropium Br 0.02% Inh Soln 0.5 Mg/2.5 Ml Vial INHALATION 0.5 mg Q6HRT JESSICA Administration Lactobacillus Acidophilus 1 tablet 05/11/24 13:00 05/17/24 12:06 Acidophilus/Bulgaricus Chewable Tablet PO 1 tablet QID JESSICA Administration Levalbuterol HCl 1.25 mg 05/15/24 14:00 05/17/24 12:50 Levalbuterol Neb 1.25 Mg/3 Ml INHALATION 1.25 mg Q6HRT JESSICA Administration Lorazepam 0.5 mg 05/09/24 16:06 05/17/24 12:05 Lorazepam (*Crx) 0.5 Mg Tablet PO 0.5 mg Q8H PRN Administration Anxiety Metoprolol Tartrate 12.5 mg 05/09/24 21:00 05/17/24 09:51 Metoprolol Tartrate 12.5 Mg Tablet PO 12.5 mg Q12HR JESSICA Administration Oxycodone HCl 5 mg 05/09/24 16:06 Oxycodone Hcl (*Crx) 5 Mg Tab Ir PO Q6H PRN Breakthrough Pain Oxycodone HCl 40 mg 05/09/24 21:00 05/17/24 09:52 Oxycodone Hcl (*Crx) 40 Mg Tab Sr 12hr PO 40 mg Q12HR JESSICA Administration Prednisone 40 mg 05/14/24 15:25 05/17/24 09:51 Prednisone 20 Mg Tablet PO 40 mg DAILY@0800 JESSICA Administration Pregabalin 225 mg 05/09/24 21:00 05/17/24 09:51 Pregabalin (*Crx) 75 Mg Capsule PO 225 mg Q12HR JESSICA Administration Rivaroxaban 20 mg 05/10/24 17:00 05/16/24 17:44 Rivaroxaban 20 Mg Tablet PO 20 mg DAILY@1700 JESSICA Administration Fluticasone/Salmeterol 2 puff 05/09/24 20:00 05/17/24 07:00 Fluticasone/Salmeterol 230-21 Mcg Inhaler 1 Puff INHALATION 2 puff Q12HRT JESSICA Administration Senna/Docusate Sodium 1 tab 05/10/24 09:00 05/17/24 09:52 Senna/Docusate Sodium Tablet PO 1 tab DAILY JESSICA Administration Sodium Chloride 1 applic 05/09/24 21:00 05/16/24 20:38 Sodium Chloride Nasal Gel 14.1 Gm NASAL 1 applic HS JESSICA Administration Sodium Chloride 1 spray 05/10/24 17:00 05/17/24 09:52 Saline 0.65% Demetris Soln 44 Ml Btl NASAL 1 spray BID JESSICA Administration Sodium Chloride 1 spray 05/10/24 09:41 Saline 0.65% Demetris Soln 44 Ml Btl NASAL Q2H PRN Congestion Tamsulosin HCl 0.4 mg 05/10/24 09:00 05/17/24 09:51 Tamsulosin Hcl 0.4 Mg Capsule PO 0.4 mg DAILY JESSICA Administration Triamcinolone Acetonide 1 applic 05/09/24 16:06 Triamcinolone Acet 0.1% Cream 15 Gm Tube TOPICAL QID PRN psioriasis Radiology Results: ITS Impressions Chest X-Ray 05/09/24 10:44 IMPRESSION: 1. Persistent volume loss with chronic opacities in the posterior right mid to upper lung zone on CT. 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 2. No recent interval change in a small right pleural effusion with associated compressive atelectasis in the right lower lobe. 3. Difficult to absolutely exclude superimposed pneumonia however there are no new opacities to more specifically suggest this. Chest CTA 05/09/24 11:19 IMPRESSION: 1. No pulmonary embolism. 2. Bilateral scattered mild new lung disease, composed predominantly of tree-in-bud opacities and small groundglass opacities suspicious for pneumonia 3. Unchanged small right and new small left pleural effusions. 4. A couple regions of chronic consolidation with volume loss in the right mid to upper lung and right lower lung likely atelectasis/scarring related to reported treated lung cancer. 5. Unchanged scattered subcentimeter solid pulmonary nodules and scattered patchy sclerotic bone lesions consistent with metastatic disease. Labs Labs: Laboratory Results - last 24 hr 05/16/24 05/16/24 05/17/24 17:03 20:32 07:24 WBC 20.7 H RBC 3.38 L Hgb 8.5 L Hct 29.3 L MCV 86.7 MCH 25.1 L MCHC 29.0 L RDW 21.8 H Plt Count 153 MPV 10.7 H Immature Gran % (Auto) Not Reportable Neut % (Auto) Not Reportable Lymph % (Auto) Not Reportable [place] % (Auto) Not Reportable Eos % (Auto) Not Reportable Baso % (Auto) Not Reportable Lymph # (Auto) Not Reportable [place] # (Auto) Not Reportable Eos # (Auto) Not Reportable Baso # (Auto) Not Reportable Abs Immat Gran (auto) Not Reportable Absolute Neuts (auto) Not Reportable Absolute Nucleated RBC Not Reportable Total Counted 100 Neutrophils % (Manual) 77 H Band Neutrophils % 6 Lymphocytes % (Manual) 10 L Monocytes % (Manual) 4 Myelocytes % 3 Nucleated RBC % Not Reportable Abs Neuts (Manual) 17.18 H Abs Lymphs (Manual) 2.07 Abs Monocytes (Manual) 0.82 Platelet Estimate Adequate Hypochromasia 1+ Basophilic Stippling 1+ Anisocytosis 2+ Ovalocytes 1+ Schistocytes None seen Sodium 136 L Potassium 4.5 Chloride 97 L Carbon Dioxide 38 H Anion Gap 1 L BUN 29 H Creatinine 0.90 Estim Creat Clear Calc 82 Estimated GFR > 60 Glucose 113 H POC Capillary Glucose 172 H 174 H Calcium 8.5 Magnesium 2.3 Total Bilirubin 0.3 AST 31 ALT 21 Alkaline Phosphatase 94 Total Protein 6.0 L Albumin 3.5 05/17/24 05/17/24 08:15 12:06 WBC RBC Hgb Hct MCV MCH MCHC RDW Plt Count MPV Immature Gran % (Auto) Neut % (Auto) Lymph % (Auto) [place] % (Auto) Eos % (Auto) Baso % (Auto) Lymph # (Auto) [place] # (Auto) Eos # (Auto) Baso # (Auto) Abs Immat Gran (auto) Absolute Neuts (auto) Absolute Nucleated RBC Total Counted Neutrophils % (Manual) Band Neutrophils % Lymphocytes % (Manual) Monocytes % (Manual) Myelocytes % Nucleated RBC % Abs Neuts (Manual) Abs Lymphs (Manual) Abs Monocytes (Manual) Platelet Estimate Hypochromasia Basophilic Stippling Anisocytosis Ovalocytes Schistocytes Sodium Potassium Chloride Carbon Dioxide Anion Gap BUN Creatinine Estim Creat Clear Calc Estimated GFR Glucose POC Capillary Glucose 138 H 155 H Calcium Magnesium Total Bilirubin AST ALT Alkaline Phosphatase Total Protein Albumin Quality VTE Prophylaxis VTE prophylaxis: mechanical ordered and pharmacologic ordered
[2024-05-17] MEDS: INFLUENZA TRIVALENT VACCINE 45 MCG/0.5 ML SYRINGE IM (15:03)
== END 2024-05-17 15:55 | disposition home health service (06) | DRG 194 ==
LOC: ANHED 12:50 → ANH3MEDSUR 13:27 → ANH2MED 13:57
PROVIDERS: Nurse Practitioner Acute Care; Physician Assistant; Admitting Provider Internal Medicine; Emergency Provider Registered Nurse; PCP Physician Assistant; Visit Provider Nurse Practitioner Acute Care
DX: J18.9 Pneumonia, unspecified organism (principal); C34.11 Malignant neoplasm of upper lobe, right bronchus or lung; C77.9 Secondary and unspecified malignant neoplasm of lymph node, unspecified; C79.51 Secondary malignant neoplasm of bone; J96.11 Chronic respiratory failure with hypoxia; J44.0 Chronic obstructive pulmonary disease with (acute) lower respiratory infection; I48.20 Chronic atrial fibrillation, unspecified; I10 Essential (primary) hypertension; D70.9 Neutropenia, unspecified; D64.9 Anemia, unspecified; E83.51 Hypocalcemia; E87.6 Hypokalemia; K12.1 Other forms of stomatitis; R04.0 Epistaxis; N40.0 Benign prostatic hyperplasia without lower urinary tract symptoms; M88.9 Osteitis deformans of unspecified bone; M54.50 Low back pain, unspecified; G89.4 Chronic pain syndrome; G62.9 Polyneuropathy, unspecified; F41.9 Anxiety disorder, unspecified; Z20.822 Contact with and (suspected) exposure to COVID-19; Z23 Encounter for immunization; Z99.81 Dependence on supplemental oxygen; Z79.01 Long term (current) use of anticoagulants; Z86.718 Personal history of other venous thrombosis and embolism; Z86.711 Personal history of pulmonary embolism; Z87.891 Personal history of nicotine dependence; Z98.1 Arthrodesis status
CPT/HCPCS: 36415; 71046; 71275; 80048; 80053; 82306; 82330; 82948; 83605; 83735; 83880; 83970; 84100; 84145; 84484; 85014; 85018; 85025; 85027; 85055; 85610; 85730; 86140; 86738; 86850; 86900; 86901; 87040; 87070; 87205; 87449; 87637; 87641; 87899; 90471; 90656; 92610; 93005; 94640; 94667; 94669; 96361; 96365; 96367; 97161; 97165; 99285; A9270; G0008; G0378; J0456; J0696; J1642; J1940; J7030; J7512; Q5101; Q9967

== ENCOUNTER 2024-05-28 05:14 | Inpatient (IN) | payer MEDICARE, MEDICAID, SELFPAY ==
[2024-05-28] VITALS (23 sets, daily range): BP systolic 90–160; BP diastolic 52–80; PULSE 88–134; RESP 16–24; TEMP 36.4–37.1; O2SAT 95–100; BMI 26.6
--- NOTE | ~2024-05-28 | CT_ITS ---
EXAMINATION:CT diagnostic chest wo con DATE: 06/04/2024 13:59 INDICATION: Worsening pneumonia. TECHNIQUE: Computed tomography (CT) of the chest was performed without intravenous contrast. Automate d exposure control and iterative reconstruction technique were employed. The dose-length product (DLP ) was 282.17 mGy-cm. COMPARISON: Chest CT 05/09/2024 FINDINGS: There are airspace opacities with volume loss involving right upper lobe and right perihila r region, consistent with radiation fibrosis. There is mild emphysema. There are patchy groundglass o pacities with small airspace opacity component and septal thickening involving the left upper lobe an d left lower lobe, consistent with pneumonia. There are small pleural effusions. The heart size is no rmal. There are coronary artery calcifications. No pericardial effusion. There is a left internal jug ular port with tip at superior cavoatrial junction. There are changes of cholecystectomy. There is mi ld bilateral gynecomastia. Epidural electrodes are noted. There are scattered sclerotic lesions of angel ne. IMPRESSION: 1. Worsened left lung disease, consistent with pneumonia. 2. 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 3. Small pleural effusions. 4. Mild emphysema. 5. Sclerotic lesions of bone, consistent with metastatic disease. Reviewed, dictated and finalized at location A. TENANCE WELDER
--- NOTE | ~2024-05-28 | XR_ITS ---
XR chest 2V 06/06/2024 10:23 Indication: Pneumonia Procedure: AP portable chest Comparison: Comparison to multiple prior studies sequentially, with oldest reviewed study dated 04/19. Findings: Status post median sternotomy for CABG. There are electrode leads overlying the spine. Left subclavian chiara catheter tip in the SVC. Heart size normal. There are changes of radiation fibrosis of the right upper lobe and perihilar region. Bilateral pleural effusions, right greater than left. There has been progression of left basilar airspace disease, compatible with pneumonia. Impression: 1: Progression of left basilar airspace disease, compatible with pneumonia. 2: Bilateral pleural effusions, right greater than left. Reviewed, dictated and finalized at location B. RANCE EXAMINING CLERK Impression: 1: Progression of left basilar airspace disease, compatible with pneumonia. 2: Bilateral pleural effusions, right greater than left.
--- NOTE | ~2024-05-28 | XR_ITS ---
Portable chest x-ray Comparison: 06/02/2024 Clinical History: Pneumonia Findings: Stable left-sided Mediport. Small right pleural effusion present. There is haziness at the left perihilar to regions left lung base. There is mild haziness in the right upper lobe. Cardiomed iastinal silhouette is stable. Bones and soft tissues are unremarkable. Impression: Small right pleural effusion. Stable hazy right upper lobe airspace disease, suggestive of post radiation change based on recent CT . Hazy airspace disease left perihilar region and left lung base, suspicious for pneumonia. Stable Mediport. Reviewed, dictated and finalized at location . IPITATOR Impression: Small right pleural effusion. Stable hazy right upper lobe airspace disease, suggestive of post radiation orestes nge based on recent CT. Hazy airspace disease left perihilar region and left lung base, suspicious for pneumonia. Stable Mediport.
--- NOTE | ~2024-05-28 | XR_ITS ---
Clinical Indication: Shortness of breath AP and lateral views of the chest: Comparison: 05/09/2024 Findings: Small right pleural effusion present. There is right upper lobe consolidation, mildly impro darci from prior exam. Probable mild patchy left basilar airspace disease, new from prior exam. Left-si ded Mediport remains in place. Cardiomediastinal silhouette is within normal limits. Bones and soft t issues are unremarkable. Impression: Mild interval improvement in right upper lobe consolidation, compatible mildly improving pneumonia. New left lower lobe airspace disease, which could reflect additional pneumonia. Small right pleural effusion. Reviewed, dictated and finalized at location M. HYGIENIST Impression: Mild interval improvement in right upper lobe consolidation, compatible mildly improving pneumonia. New left lower lobe airspace disease, which could reflect additional pneumonia. Small right pleural effusion.
--- NOTE | ~2024-05-28 | XR_ITS ---
EXAMINATION: XR chest 2V DATE: 06/02/2024 13:28 INDICATION: Shortness of breath TECHNIQUE: frontal and lateral views of the chest were obtained. COMPARISON: Chest radiograph dated 05/28/[address] dated 05/09/2024 FINDINGS: Volume loss in right upper lung zone with elevation the right hilum and chronic right suprahilar opac ities consistent with treated lung cancer. Chronic small right pleural effusion. Unchanged region of consolidation along side the pleural effusion in the posterior right lower lobe which could represent atelectasis or pneumonia. Progression of airspace opacities in the lingula consistent with worsening pneumonia. No pneumothorax or left-sided pleural effusion. Heart size is normal. Median sternotomy wires and mediastinal surgical clips are seen, likely from pr ior coronary artery bypass grafting. Left internal jugular central venous port catheter with distal t ip at the caudal superior vena cava. Spinal stimulator leads extend cephalad along the central canal the thoracic spine and at the cervical spine on the cephalad margin of the field of imaging. Tiny int rathecal radio catheter tip marker in the central canal at level of T9. Sclerosis and several of the lower thoracic vertebral bodies consistent with metastatic disease. IMPRESSION: 1. Increasing opacities in the lingula consistent with progression of pneumonia. 2. Chronic small right pleural effusion and consolidation with volume loss in the suprahilar right up per lobe consistent with treated lung cancer. 3. Sclerosis of a few lower thoracic vertebral bodies consistent with metastatic disease. Reviewed, dictated and finalized at location A. NESS OBJECTS ARCHITECT IMPRESSION: 1. Increasing opacities in the lingula consistent with progression of pneumonia . 2. Chronic small right pleural effusion and consolidation with volume loss in t he suprahilar right upper lobe consistent with treated lung cancer. 3. Sclerosis of a few lower thoracic vertebral bodies consistent with metastati c disease.
--- NOTE | ~2024-05-28 | XR_ITS ---
EXAMINATION: XR chest 1V portable DATE: 06/07/2024 05:52 INDICATION: Pneumonia. TECHNIQUE: A single frontal view of the chest was obtained. COMPARISON: Chest 2 views 06/06/2024, chest CT 06/04/2024 FINDINGS: There are airspace opacities in right perihilar region with volume loss, consistent with ra diation pneumonitis. There are airspace opacities in left mid and lower lung zones. There is a small right pleural effusion. No pneumothorax. The heart size is normal. Median sternotomy wires are noted. There is a left internal jugular port with tip in superior vena cava. There are multiple sclerotic l esions of bone. Epidural electrodes are noted. IMPRESSION: 1. Stable airspace opacities in left mid and lower lung zones, consistent with pneumonia. 2. 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 3. Stable small right pleural effusion. 4. Sclerotic lesions of bone, consistent with metastatic disease. Reviewed, dictated and finalized at location A. NICAL BUSINESS SYSTEMS ANALYST
--- NOTE | 2024-05-28 05:21 | ECG_ITS ---
Test Date: 2024-05-28 05:23:03 Measurements Intervals [place] Rate: 126 P: 0 [place]: 0 QRS: 50 QRSD: 59 T: 63 QT: 303 QTc: 440 Interpretive Statements SIGNIFICANT BASELINE ARTIFACT PRECLUDES ASSESSMENT SUSPECT SINUS TACHYCARDIA WITH FREQUENT PACs; MODERATE ST DEPRESSION [0.05+ mV ST DEPRESSION] Compared to ECG 05/09/2024 10:44:17 ST (T wave) deviation now present Sinus rhythm no longer present Electronically Signed On 05-28-2024 18:57:35 [employer]OR AND [employer]IVAL [employer]END[employer] by Emory Simon
--- NOTE | 2024-05-28 05:34 | PC.NURSE ---
Patient states that he does not want his port accessed in the ED, and prefers to have oncology nurses access it only.
[2024-05-28 05:42] LABS: Basophils Percent Auto 0.5 % (0.2-1.2); Eosinophils Percent Auto 1.1 % (0-4.4); Hematocrit 31.8 % (42.0-52.0); Hemoglobin 9.7 g/dL (14.0-18.0); Immature Granulocyte Absolute 0.01 K/mm3 (0.00-0.031); Immature Granulocyte Percent A 0.5 % (0-0.5); Immature Platelet Fraction Pct 3.4 % (0.9-11.2); Lymphocytes Absolute Auto 0.63 K/mm3 (0.9-3.2); Lymphocytes Percent Auto 34.2 % (18.3-44.2); Mean Corpuscular HGB Conc 30.5 g/dl (32-36); Mean Corpuscular Hemoglobin 26.5 pg (26-34); Mean Corpuscular Volume 86.9 fl (80-100); Mean Platelet Volume 10.2 fl (7.4-10.4); Monocytes Absolute Auto 0.1 K/mm3 (0.1-0.6); Monocytes Percent Auto 7.6 % (2.6-8.5); Neutrophils Percent Auto 56.1 % (45.5-73.1); Platelet Count Result 100 k/mm3 (150-375); Red Blood Count 3.66 M/mm3 (4.6-6.20); Red Cell Distribution Width 22.9 % (11.5-14.5)
--- NOTE | 2024-05-28 05:43 | ED.SOB ---
HPI - SOB/Dyspnea General Chief Complaint: Shortness of Breath/Dyspnea Stated Complaint: sob Time Seen by Provider: 05/28/24 05:35 Source: patient, EMS and RN notes reviewed Mode of arrival: EMS Limitations: no limitations History of Present Illness HPI Narrative: Presents with shortness of breath. History of COPD and Stage 4 lung cancer (follows with Dr Baez) as well as recurrent pneumonias. Last diagnosis of the latter was 2 weeks ago. Patient underwent physiotherapy last time he was admitted. He uses inhalers. On 4L O2 via NC at baseline. He woke up and his oxygen was off, unsure for how long. He has been having left sided chest/rib pain for the past 4 days. Has a port. Also feeling anxious. Chest pain occurs intermittently. No nausea/vomiting. He has a new cough, no hemoptysis. Not diaphoretic. Hx DVT/PE for which he is on Xarelto. Intermittent chills. Also having anxiety. Has never required BiPAP or intubation for his respiratory issues. In regards to risk factors. He does history of hypertension dealt with hypotension. History of hyperlipidemia diabetes mellitus infarction TIA, CVA. His father did heart attack age 65. Related Data Home Medications ?Medication ?Instructions ?Recorded ?Confirmed ?Last Taken ?Type pregabalin 225 mg capsule (Lyrica) 225 mg PO BID 11/07/19 05/28/24 05/27/24 History triamcinolone acetonide 0.1 % 1 applic topical QID PRN psioriasis 11/07/19 05/28/24 Unknown History topical cream (Triderm) cholecalciferol (vitamin D3) 1,250 1,250 mcg PO WEEKLY 09/09/20 05/28/24 05/26/24 History mcg (50,000 unit) capsule tamsulosin 0.4 mg capsule 0.4 mg PO DAILY 01/10/22 05/28/24 05/27/24 History metoprolol tartrate 25 mg tablet 12.5 mg PO BID 04/22/22 05/28/24 05/27/24 History albuterol sulfate 90 mcg/actuation 2 inh inhalation Q4H PRN Shortness 05/15/22 05/28/24 05/27/24 History aerosol inhaler Of Breath Or Wheezing ferrous sulfate 325 mg (65 mg 325 mg PO DAILY 07/18/22 05/28/2405/27/24 History iron) tablet (iron) folic acid 1 mg tablet 1 mg PO DAILY 07/26/22 05/28/24 05/27/24 History omeprazole 40 mg capsule,delayed 40 mg PO DAILY 08/03/22 05/28/24 05/27/24 History release ondansetron HCl 8 mg tablet 8 mg PO QID PRN NAUSEA 08/03/22 05/28/24 05/27/24 History oxycodone 40 mg tablet,crush 40 mg PO Q12H 01/02/24 05/28/24 05/27/24 History resistant,extended release 12 hr acetaminophen 500 mg tablet 500 mg PO Q6H PRN Pain (Scale 03/07/24 05/28/24 05/27/24 History Score 1-3) budesonide 0.5 mg/2 mL suspension 0.5 mg inhalation BID 03/07/24 05/28/24 05/28/24 History for nebulization cyanocobalamin (vitamin B-12) 2,500 mcg PO DAILY 03/07/24 05/28/24 05/27/24 History fluticasone propion-salmeterol 2 puff inhalation Q12H 03/07/24 05/28/24 Unknown History naloxone 4 mg/actuation nasal 4 mg intranasal PER PKG DIR 03/07/24 05/28/24 Unknown History spray (Narcan) oxycodone 5 mg capsule 5 mg PO Q6H PRN Breakthrough Pain 03/07/24 05/28/24 05/27/24 History sennosides 8.6 mg-docusate sodium 1 tab-cap PO DAILY 03/25/24 05/28/24 Unknown History 50 mg tablet (Senokot-S) furosemide 40 mg tablet 40 mg PO BID edema 05/28/24 05/28/24 05/27/24 History sodium chloride-aloe vera nasal 1 applic intranasal Q6H PRN nasal 05/28/24 05/28/24 05/28/24 History gel (Coyote Saline nasal gel) dryness Allergies Allergy/AdvReac Type Severity Reaction Status Date / Time bee venom protein (honey bee) Allergy Unknown Swelling Verified 05/28/24 05:25 alprazolam (From Xanax) AdvReac Intermediate Agitated Verified 05/29/24 15:08 PMFSH Past Medical History Medical History History of recurrent pneumonia Chronic anticoagulation Chronic respiratory failure with hypoxia, on home oxygen therapy Chronic obstructive pulmonary disease uses 3 L prn Benign prostatic hyperplasia Chronic anemia Seasonal allergies History of pulmonary embolism (12/2018) History of DVT (deep vein thrombosis) Right upper extremity DVT and bilateral PE December 2018 for which he took Xarelto for several months. Anxiety Peripheral neuropathy Chronic pain syndrome Due to chronic lower back pain after complications with lower spinal fusion 2009. Hypertension Reports he is no longer on medications for such. Atrial fibrillation s/p cardiac ablation by Dr. Tom Oakley at [facility] Adenocarcinoma, lung Non-small cell carcinoma diagnosed June 2018. Follows with Dr. Baez and Dr. Cavazos; underwent radiation therapy from 12/05/2018 to 12/18/2018 and again in fall 2021 due to recurrence. Now with metastatic disease to lymph nodes and bone. He is currently receiving chemotherapy and has plans to start Keytruda on August 18. 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 Followed by Dr. Parson at [facility] last seen around December 2018. Surgical History Surgical History (Updated 05/09/24 @ 14:36 by Traci Dawn PA-C) History of cholecystectomy History of transurethral resection of prostate History of open heart surgery (~2017) Status post resection of atrial myxoma. History of lumbar fusion Anterior and posterior L4-S1 fusion 2009 History of appendectomy In the History of carpal tunnel release Left 2010 History of elbow surgery Left elbow ulnar neurolysis Family History Family History Father Acute myocardial infarction Pulmonary embolism Sibling Breast cancer Mother Family history of chronic obstructive pulmonary disease Social History Social History Social History: Mr. Garay lives with his ex- Edna in [place]. They have 2 children. 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 He denies significant alcohol use, drinks socially. Smoked 2 packs per day of cigarettes x 40 years and quit Amadeo 2018. Denies other substance use. Long-term opioid use due to chronic back pain. Ambulates without a cane or walker at home. He designates his ex- as his surrogate decision maker and he wishes to be a full code however, he states he would not want to be on a ventilator for long-term. Smoking packs per day: 2 Smoking cigarettes per day: 40.0 Years smoked: 40 Smoking pack-years: 80.00 Smoking status: Former smoker Second hand tobacco smoke exposure: Yes Alcohol intake: never Substance use: never Substance use type: does not use Do You Feel Safe in your Home?: Yes Lack of Transportation: No Lack of Food: Never True Current Housing: I Have Housing Concerned About Future Housing: No Difficulty Paying Gas/Electric Bills: No Difficulty Paying for Meds: No Currently Unemployed: No Education: Decline to Answer Difficulty w/ Childcare or Family Care: No Living arrangements: with family Occupation/Education: unemployed Spiritual care concerns: No Exam Narrative: GENERAL: Well-appearing, well-nourished, and in no acute distress. HEAD: Normocephalic, atraumatic. EYES: Non injected, non icteric ENT: Nares clear, no rhinorrhea or epistaxis. NECK: Supple. CHEST: Wheezes bilaterally. Nasal cannula in place. HEART: Tachycardic rate and rhythm. . ABDOMEN: Soft, nondistended. EXTREMITIES: Normal range of motion. 1+ bilateral lower extremity edema. SKIN: Warm, dry, no rash. NEURO: No focal deficits. Alert and oriented x3. PSYCH: Normal mood and affect. Course Vital Signs Vital signs: Vital Signs Temperature 98.3 F 05/28/24 05:12 Pulse Rate 134 H 05/28/24 05:12 Respiratory Rate 18 05/28/24 05:12 Blood Pressure 128/77 05/28/24 05:12 Pulse Oximetry 96 05/28/24 05:12 Oxygen Delivery Nasal Cannula 05/28/24 05:12 Oxygen Flow Rate 4 05/28/24 05:12 Temperature 97.9 F 05/30/24 06:00 Pulse Rate 93 05/30/24 07:15 Respiratory Rate 20 05/30/24 07:15 Blood Pressure 102/59 L 05/30/24 06:00 Pulse Oximetry 99 05/30/24 07:05 Oxygen Delivery Nasal Cannula 05/30/24 07:05 Oxygen Flow Rate 3 05/30/24 07:05 Fraction of Inspired Oxygen 32 05/29/24 07:45 MDM - SOB/Dyspnea MDM Narrative Medical decision making narrative: Patient reports with shortness of breath. He has a history of COPD, stage IV lung cancer, and recurrent pneumonias with the last 1 diagnosed 2 weeks ago. He wears 4 L nasal cannula at baseline and awoke in the middle of the night it off and unknown how long had been off. In the emergency department he is afebrile signs notable for elevated heart rate. Patient presented with mild dyspnea on exertion and palpitations. Physical exam revealed an irregular and rapid heartbeat at a rate of 134 beats per minute. ECG showed an irregularly irregular narrow-complex tachycardia without associated P-waves, consistent with the diagnosis of Afib with RVR. Patient hemodynamically stable thus early priority in management was to slow the ventricular rate metoprolol given this is a medication he is already on (12.5 BID PO). IVP 2.5mg over 2 minutes initially ordered. He does rate control with this so will order his AM dose of 12.5mg PO. Patient has hypocalcemia, slightly improved though still present as it corrects to 8.1mg/dL in the setting of hypoalbuminemia. Pancytopenia. This has been previously seen although ever the leukopenia is marked compared to previous. Patient has evidence of prior pneumonia but also concern for possible new pneumonia. DRIP Score - predicts risk for CAP d/t drug-resistant pathogens Antibiotic use within 60 days (No 0, Yes +2): 2 prn physical therapist care resident (No 0, Yes +2): 0 Tube feeding (No 0, Yes +2) : 0 Prior drug-resistant pneumonia Dx within 1 year (No 0, Yes +2) : 0 Hospitalization within 60 days (No 0, Yes +1): 1 Chronic pulmonary disease (No 0, Yes +1): 1 Poor functional status (No 0, Yes +1): 0 H2 cabrera or PPI within 14 days (No 0, Yes +1): 1 Active wound care at time of admission (No 0, Yes +1): 0 MRSA colonization within 1 year (No 0, Yes +1): 0 Total: 5 Given this will be an inpatient/floor patient, will start ceftriaxone for potential drug resistant strep + azithromycin. PSI/PORT Score: Pneumonia Severity Index for CAP Age: 63 years Sex (F -10; Male 0): 9 longterm resident (No 0, Yes +10):0 Neoplastic disease (No 0, Yes +30):30 Liver disease history (No 0, Yes +20): 0 CHF history (No 0, Yes +10): 0 Cerebrovascular disease history (No 0, Yes +10): 0 Renal disease history (No 0, Yes +10):0 Altered mental status (No 0, Yes +20):0 RR >/=30 breaths/min (No 0, Yes +20):0 SBP <90mmHg (No 0, Yes +20):0 Temp <35C (95F) or >39.9C (103.8F) - (No 0, Yes +15):0 Pulse >/=125 beats/min (No 0, Yes +10):10 pH <7.35 (No 0, Yes +30):0 BUN >/=30 mg/dL or >/=11mmol/L (No 0, Yes +20):0 Na <130mmol/L (No 0, Yes +20):0 Glucose >/=250mg/dl (No 0, Yes +10):0 Hct <30% (No 0, Yes +10): 0 partial pressure of oxygen <60mmHg (No 0, Yes +10):0 Pleural effusion on xray (No 0, Yes +10):10 Result: 112 points. Risk Class IV, 8.2-9.3% mortality. Moderate risk. Inpatient admission recommended. Under reassessment his work of breathing is improved though, as above, his risk factors to suggest that hospital admission is warranted. Discussed with patient he is amenable to the plan. He confirms full code status. == Given patient's metastatic cancer, recommend continuing conversations of goals of care to establish values and wishes as discuss further treatments and interventions. Of note, Medicare guidelines for hospice eligibility a for patients with cancer are as follows: Patient will considered to be in the terminal stage ( life expectancy of 6 months or less) if they meet ALL of the following criteria: 1. clinical findings of malignancy with widespread, aggressive or progressive disease as evidenced by increasing symptoms, worsening lab values and or evidence of metastatic disease. 2. Palliative performance scale (PPS) </=70% 3. refuses further life-prolonging therapy OR continues to decline in spite of definite therapy. Supporting documentation includes: Hypercalcemia >12 Cachexia or weight loss of 5% past 3 months Signs and symptoms of advanced disease ( nausea, requirement for transfusions, malignant ascites or pleural effusion, etc.) Given this, a palliative care consult might be appropriate. Hospice Pulmonary Disease Given patient's [COPD], recommend continuing conversation of goals of care to establish values and wishes as discuss further treatments and interventions. Of note, Medicare guidelines for hospice eligibility for patients with severe chronic lung disease are as follows: Patient will be considered to be in the terminal stage (life expectancy of 6 months or less) if they meet ALL of the following criteria: 1. Patient has all of the following: Difficulty breathing at rest, little or no response to bronchodilators, decreased functional capacity (example bed to chair existence, fatigue and cough) AND 2. Progression of disease evidenced by a recent history of increasing office, home, or ED visits and/or hospitalizations for pulmonary infection and/or respiratory failure. 3. Documentation within the past 3 months of hypoxemia at rest on room air (pO2 <55mmHg by ABG) or oxygen saturation <88%, hypercapnia evidenced by pCO2 >50mmHg. Supporting documentation includes: Cor pulmonale and right heart failure, unintentional progressive weight loss. Given this, patient might not currently meet criteria but a palliative care consult might be appropriate. ==== Critical Care: 1 or more vital organ systems impaired with a high probability of imminent or life-threatening deterioration in the patient's condition requiring frequent personal assessment and manipulation of the patient's condition. This included time spent evaluating the patient, speaking with EMS pre-hospital personnel and family, reviewing/interpreting laboratory/imaging studies, discussing the case with consultants or admitting teams, retrieving data and reviewing charts, monitoring for decompensation, documenting the visit, and performing bundled procedures exclusive of separately billed procedures. Differential Diagnosis Differential diagnosis: Likely acute exacerbation of chronic obstructive airways disease, congestive heart failure, community acquired pneumonia, pulmonary embolism (considered but patient already on Xarelto for Hx of this diagnosis and compliant) and other (Pulmonary hypertension, anxiety; acute viral syndrome) Lab Data Attestation: I reviewed the patient's lab results. 05/30/24 05:57 05/30/24 05:57 Labs: Lab Results 05/28/24 05/28/24 05/28/24 Range/Units 05:34 06:15 06:15 WBC 1.8 L* (4.5-10.0) K/mm3 RBC 3.66 L (4.6-6.20) M/mm3 Hgb 9.7 L (14.0-18.0) g/dL Hct 31.8 L (42.0-52.0) % MCV 86.9 (80-100) fl MCH 26.5 (26-34) pg MCHC 30.5 L (32-36) g/dl RDW 22.9 H (11.5-14.5) % Plt Count 100 L (150-375) k/mm3 MPV 10.2 (7.4-10.4) fl Immature Gran % (Auto) 0.5 (0-0.5) % Neut % (Auto) 56.1 (45.5-73.1) % Lymph % (Auto) 34.2 (18.3-44.2) % Daggett % (Auto) 7.6 (2.6-8.5) % Eos % (Auto) 1.1 (0-4.4) % Baso % (Auto) 0.5 (0.2-1.2) % Lymph # (Auto) 0.63 L (0.9-3.2) K/mm3 Daggett # (Auto) 0.1 (0.1-0.6) K/mm3 Eos # (Auto) 0.0 (0-0.3) K/mm3 Baso # (Auto) 0.0 (0.0-0.1) K/mm3 Abs Immat Gran (auto) 0.01 (0.00-0.031) K/mm3 Absolute Neuts (auto) 1.0 L (1.3-6.7) K/mm3 Absolute Nucleated RBC 0.000 (0.0-0.012) K/mm3 Nucleated RBC % 0.0 (0.0-0.2) % Platelet Estimate Decreased (Adequate) % Immature Plt Fraction 3.4 (0.9-11.2) % Anisocytosis 1+ Schistocytes None seen Sodium 139 (137-145) mmol/L Potassium 4.1 (3.4-5.0) mmol/L Chloride 110 H (98-107) mmol/L Carbon Dioxide 26 (22-30) mmol/L Anion Gap 3 L (4-12) mmol/L BUN 15 (9-20) mg/dL Creatinine 0.90 (0.7-1.3) mg/dL Estim Creat Clear Calc 82 ml/min Estimated GFR > 60 (59 - ) Glucose 99 (65-110) mg/dL Calcium 7.5 L (8.4-10.2) mg/dL Total Bilirubin 0.8 (0.2-1.3) mg/dL AST 17 (17-59) U/L ALT 22 (6-50) U/L Alkaline Phosphatase 78 (38-126) U/L Troponin I < 0.012 (0.000-0.034) ng/mL NT-Pro-B Natriuret Pep 434 H Cancelled (19.9-100) pg/mL Total Protein 6.0 L (6.3-8.2) g/dL Albumin 3.3 L (3.5-5.1) g/dL Influenza A (RT-PCR) Negative (Negative) Influenza B (RT-PCR) Negative (Negative) RSV (RT-PCR) Negative (Negative) SARS-CoV-2 RNA (RT-PCR) Negative (Negative) ABG Data ABG results: 05/28/24 06:06 Puncture Site Right radial ABG pH 7.440 ABG pCO2 35.9 ABG pO2 95.7 ABG PO2/FiO2 Ratio 2.66 ABG HCO3 23.8 ABG O2 Saturation 97.6 ABG O2 Content 14.4 L ABG Base Excess 0.0 A-a Gradient 119.3 Oxyhemoglobin 96.7 Total Hemoglobin 10.5 L O2 Delivery Device Nasal cannula O2 Liters/Min 4.0 FiO2 36 Attestation: I personally reviewed and interpreted this ABG as follows: Interpretation: Primary respiratory alkalosis with secondary metabolic alkalosis Imaging Data Radiologist's impression: Impressions Chest X-Ray 05/28/24 06:22 Impression: Mild interval improvement in right upper lobe consolidation, compatible mildly improving pneumonia. New left lower lobe airspace disease, which could reflect additional pneumonia. Small right pleural effusion. ECG Data EKG #1: Attestation: I personally reviewed and interpreted this ECG as follows: ECG completion date: 05/28/24 ECG completion time: 05:23 Interpretation: Atrial fibrillation with rapid ventricular response At a rate of 126 beats per minute. QRS 59. QT/ QTC 303/378. Good R-wave progression across the precordial leads. Poor baseline wander/artifact limits full interpretation. Though there are not any marked ST elevations or T-wave inversions. Critical Care Time Critical Care Time Critical Care Time: Yes Total Critical Care Time: 35 Discharge Plan Discharge Clinical Impression: Atrial fibrillation with RVR, Hypocalcemia, Hypoalbuminemia, Pneumonia, Pleural effusion on right, Pancytopenia Patient Disposition: Still a Patient Condition: Stable
[2024-05-28 05:53] LABS: Alanine Aminotransferase 22 U/L (6-50); Albumin Level 3.3 g/dL (3.5-5.1); Alkaline Phosphatase 78 U/L (38-126); Anion Gap 3 mmol/L (4-12); Aspartate Amino Transferase 17 U/L (17-59); Bilirubin,Total 0.8 mg/dL (0.2-1.3); Blood Urea Nitrogen 15 mg/dL (9-20); Calcium 7.5 mg/dL (8.4-10.2); Carbon Dioxide 26 mmol/L (22-30); Chloride 110 mmol/L (98-107); Estimated CRCL calculation 82 ml/min; Estimated Glomerular Filt Rate > 60; Glucose 99 mg/dL (65-110); Potassium 4.1 mmol/L (3.4-5.0); Sodium 139 mmol/L (137-145)
[2024-05-28] MEDS: SODIUM CHLORIDE 0.9% IV 1,000 ML 999 ML IV CONT (06:15)
[2024-05-28 06:16] LABS: White Blood Count 1.8 K/mm3 (4.5-10.0)
[2024-05-28] MEDS: METOPROLOL TARTRATE INJ 5 MG/5 ML VIAL 2.5 MG IV PUSH (06:16)
[2024-05-28 06:17] LABS: Anisocytosis 1+; Schistocytes None Seen
[2024-05-28 06:17] LABS: Alveolar/Arterial O2 Gradient 119.3 mmHg; Fractional Inspired Oxygen 36 %; HCO3 ABG 23.8 mEq/l (22.0-26.0); Oxygen Content ABG 14.4 %vol (16.0-22.0); Oxygen Saturation ABG 97.6 % (95.0-100.0); Oxyhemoglobin 96.7 % THb (90.0-100.0); PCO2 ABG 35.9 mmHg (35.0-45.0); PO2 ABG 95.7 mmHg (80.0-100.0); PO2 FiO2 Ratio Arterial Blood 2.66 %; Total Hemoglobin 10.5 g/dL (12.0-18.0)
[2024-05-28 06:18] LABS: Platelet Estimate Decreased (Adequate)
[2024-05-28 06:19] LABS: Device NASAL CANNULA; Modified Allen's Test Pass; Site Drawn RIGHT RADIAL
[2024-05-28] MEDS: LORazepam (*CRX) 0.5 MG TABLET PO ×3 (06:37→17:51)
[2024-05-28 06:55] LABS: NT Pro B Type Natriuretic Pept 434 pg/mL (19.9-100); Troponin I < 0.012 ng/mL (0.000-0.034)
[2024-05-28] MEDS: MAGNESIUM SULF 1 GM/D5W 100 ML 1 GM/100 ML BAG IVPB (07:03)
[2024-05-28 07:08] LABS: Influenza A QL RT-PCR Negative (Negative); Influenza B QL RT-PCR Negative (Negative); RSV RNA, RT-PCR Negative (Negative); SARS-CoV-2 RNA PCR Negative (Negative)
[2024-05-28] MEDS: AZITHROMYCIN 500 MG/NS 250 ML 500 MG/250 ML BAG 250 MG IVPB (07:34)
[2024-05-28] MEDS: IPRATROPIUM 0.5 MG/ALBUTEROL SULFATE 2.5 MG AMPUL.NEB 3 ML INHALATION ×3 (07:51→21:57)
[2024-05-28] MEDS: METOPROLOL TARTRATE 12.5 MG TABLET PO ×2 (08:15→17:52)
--- NOTE | 2024-05-28 08:25 | ADMGEN ---
This patient, Jn Garay, was admitted to Medical Room 343-01. Patient/family oriented to hospital policies and general routines including ID bracelet, bed and alarms, visiting hours, pain management, procedures, bathroom and other care routines, personal items, smoking policy, room service/diet, and visiting hours. Information on how to activate the Rapid Response Team has been discussed. Patient/Family are encouraged to report perceived risks to care and to ask questions if they do not understand what they are told or what they should do.
[2024-05-28 09:03] LABS: Lactic Acid Reflex 1.5 mmol/L (0.7-2.0); Magnesium 2.6 mg/dL (1.6-2.3)
[2024-05-28] MEDS: SALINE 0.65% NAS SOLN 44 ML BTL 1 SPRAY NASAL ×2 (10:30→15:28)
[2024-05-28] MEDS: CENTRAL LINE FLUSH 10 ML IV PUSH (13:50)
--- NOTE | 2024-05-28 14:23 | P.HP_ITS ---
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 Noted he is currently on chemotherapy and last chemotherapy was 2 weeks ago. patient was lethargic at the time of this encounter, however stated that he was having worsening SOB the past 4 days. unable to provide any further information, but denies any vomiting, chest pain, abd pain, diarrhea, loss of consciousness or redness of skin. ER eval noted temperature 97.3?, heart rate 134, respiratory 18, patient saturating 96% on 4 L oxygen blood pressure 128/77. Labs notable for WBC 1.8, hemoglobin 9.7, platelets 100. Chest x-ray showed right upper lobe consolidation and left lower lobe airspace disease. Patient was started on Rocephin and azithromycin prior to admission. Review of Systems Review of Systems: All other systems reviewed and negative except as noted in the history above. [facility] Past Medical History Medical History (Updated 05/28/24 @ 07:33 by Caitlyn Camp MD) Chronic anticoagulation Chronic respiratory failure with hypoxia, on home oxygen therapy Chronic obstructive pulmonary disease uses 3 L prn Benign prostatic hyperplasia Chronic anemia Seasonal allergies History of pulmonary embolism (12/2018) History of DVT (deep vein thrombosis) Right upper extremity DVT and bilateral PE December 2018 for which he took Xarelto for several months. Anxiety Peripheral neuropathy Chronic pain syndrome Due to chronic lower back pain after complications with lower spinal fusion 2009. Hypertension Reports he is no longer on medications for such. Atrial fibrillation s/p cardiac ablation by Dr. Tom Oakley at [facility] Adenocarcinoma, lung Non-small cell carcinoma diagnosed June 2018. Follows with Dr. Baez and Dr. Cavazos; underwent radiation therapy from 12/05/2018 to 12/18/2018 and again in fall 2021 due to recurrence. Now with metastatic disease to lymph nodes and bone. He is currently receiving chemotherapy and has plans to start Keytruda on August 18. 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 Followed by Dr. Parson at [facility] last seen around December 2018. Surgical History Surgical History (Updated 05/09/24 @ 14:36 by Traci Dawn PA-C) History of cholecystectomy History of transurethral resection of prostate History of open heart surgery (~2018) Status post resection of atrial myxoma. History of lumbar fusion Anterior and posterior L4-S1 fusion 2009 History of appendectomy In the 90 History of carpal tunnel release Left 2011 History of elbow surgery Left elbow ulnar neurolysis Family History Family History Father Acute myocardial infarction Pulmonary embolism Sibling Breast cancer Mother Family history of chronic obstructive pulmonary disease Social History Social History Social History: Mr. Garay lives with his ex- Edna in [place]. They have 2 children. 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 He denies significant alcohol use, drinks socially. Smoked 2 packs per day of cigarettes x 40 years and quit 2017. Denies other substance use. Long-term opioid use due to chronic back pain. Ambulates without a cane or walker at home. He designates his ex- as his surrogate decision maker and he wishes to be a full code however, he states he would not want to be on a ventilator for long-term. Smoking packs per day: 2 Smoking cigarettes per day: 40.0 Years smoked: 40 Smoking pack-years: 80.00 Smoking status: Former smoker Second hand tobacco smoke exposure: Yes Alcohol intake: never Substance use: never Substance use type: does not use Do You Feel Safe in your Home?: Yes Lack of Transportation: No Lack of Food: Never True Current Housing: I Have Housing Concerned About Future Housing: No Difficulty Paying Gas/Electric Bills: No Difficulty Paying for Meds: No Currently Unemployed: No Education: Decline to Answer Difficulty w/ Childcare or Family Care: No Living arrangements: with family Occupation/Education: unemployed Spiritual care concerns: No Meds Home Medications and Allergies Home Medications ?Medication ?Instructions ?Recorded ?Confirmed ?Type pregabalin 225 mg capsule (Lyrica) 225 mg PO BID 11/07/19 05/28/24 History triamcinolone acetonide 0.1 % 1 applic topical QID PRN psioriasis 11/07/19 05/28/24 History topical cream (Triderm) cholecalciferol (vitamin D3) 1,250 1,250 mcg PO WEEKLY 09/09/20 05/28/24 History mcg (50,000 unit) capsule tamsulosin 0.4 mg capsule 0.4 mg PO DAILY 01/10/22 05/28/24 History metoprolol tartrate 25 mg tablet 12.5 mg PO BID 04/22/22 05/28/24 History lorazepam 0.5 mg tablet 0.5 mg PO Q8H PRN Anxiety #10 tabs 04/26/22 05/28/24 Rx albuterol sulfate 90 mcg/actuation 2 inh inhalation Q4H PRN Shortness 05/15/22 05/28/24 History aerosol inhaler Of Breath Or Wheezing ferrous sulfate 325 mg (65 mg 325 mg PO DAILY 07/18/22 05/28/24 History iron) tablet (iron) folic acid 1 mg tablet 1 mg PO DAILY 07/26/22 05/28/24 History omeprazole 40 mg capsule,delayed 40 mg PO DAILY 08/03/22 05/28/24 History release ondansetron HCl 8 mg tablet 8 mg PO QID PRN NAUSEA 08/03/22 05/28/24 History rivaroxaban 20 mg tablet (Xarelto) 20 mg PO DAILY@1700 #30 tabs 08/04/22 05/28/24 Rx oxycodone 40 mg tablet,crush 40 mg PO Q12H 01/02/24 05/28/24 History resistant,extended release 12 hr acetaminophen 500 mg tablet 500 mg PO Q6H PRN Pain (Scale 03/07/24 05/28/24 History Score 1-3) budesonide 0.5 mg/2 mL suspension 0.5 mg inhalation BID 03/07/24 05/28/24 History for nebulization cyanocobalamin (vitamin B-12) 2,500 mcg PO DAILY 03/07/24 05/28/24 History fluticasone propion-salmeterol 2 puff inhalation Q12H 03/07/24 05/28/24 History naloxone 4 mg/actuation nasal 4 mg intranasal PER PKG DIR 03/07/24 05/28/24 History spray (Narcan) oxycodone 5 mg capsule 5 mg PO Q6H PRN Breakthrough Pain 03/07/24 05/28/24 History guaifenesin 600 mg tablet, 1,200 mg (2 x 600 mg) PO Q12HR #10 03/12/24 05/28/24 Rx extended release 12 hr (Mucus tabs Relief ER) sennosides 8.6 mg-docusate sodium 1 tab-cap PO DAILY 03/25/24 05/28/24 History 50 mg tablet (Senokot-S) ergocalciferol (vitamin D2) 1,250 50,000 unit PO Mo@0900 05/17/24 05/28/24 Rx mcg (50,000 unit) capsule (Vitamin hypocalcemia #12 caps D2) prednisone 10 mg tablet 10 mg PO DIRECTED #40 tabs 05/17/24 05/28/24 Rx sodium chloride 0.65 % nasal spray 1 spray intranasal BID #45 mL 05/17/24 05/28/24 Rx aerosol (Saline Mist) sodium chloride 0.65 % nasal spray 1 spray intranasal Q2H PRN 05/17/24 05/28/24 Rx aerosol (Saline Mist) Congestion 1 month #45 mL furosemide 40 mg tablet 40 mg PO BID edema 05/28/24 05/28/24 History sodium chloride-aloe vera nasal 1 applic intranasal Q6H PRN nasal 05/28/24 05/28/24 History gel ([place] Saline nasal gel) dryness Allergies Allergy/AdvReac Type Severity Reaction Status Date / Time bee venom protein (honey bee) Allergy Unknown Swelling Verified 05/28/24 05:25 Vital Signs Vital Signs - 24 hr 05/28/24 05:12 05/28/24 05:12 05/28/24 05:20 Temperature 98.3 F Pulse Rate 134 H 126 H Respiratory Rate 18 Blood Pressure 128/77 Pulse Oximetry 96 98 Oxygen Delivery Nasal Cannula Nasal Cannula Oxygen Flow Rate 4 4 05/28/24 06:16 05/28/24 06:21 05/28/24 07:00 Temperature 97.6 F Pulse Rate 134 H 121 H 111 H Respiratory Rate 18 20 Blood Pressure 111/67 160/52 H Pulse Oximetry 96 99 Oxygen Delivery Oxygen Flow Rate 05/28/24 07:51 05/28/24 08:00 05/28/24 08:01 Temperature 97.8 F Pulse Rate 113 H 113 H 112 H Respiratory Rate 24 H 16 20 Blood Pressure 119/80 Pulse Oximetry 99 Oxygen Delivery Oxygen Flow Rate 05/28/24 08:15 05/28/24 09:30 05/28/24 14:00 Temperature 98.7 F 98.8 F Pulse Rate 111 H 99 106 H Respiratory Rate 18 20 Blood Pressure 126/68 90/66 L Pulse Oximetry 95 98 Oxygen Delivery Oxygen Flow Rate Exam Narrative: General: alert but lethargic Eyes: EOMI, PERRLA ENNT External ears normal, Neck is supple, no masses, Respiratory systems: Clear to auscultation Cardiovascular S1, S2, normal rhythm, no murmur, rub, or gallop; no thrill or palpable murmurs on palpation. Gastrointestinal: soft, non-tender, and non-distended abdomen with no masses; BS present Skin: no rash, lesions, ulcerations, subcutaneous nodules or induration Musculoskeletal: no abnormality and no tenderness, normal ROM Neurologic: Alert and lethargic , non focal Mental Status Exam: normal affect H&P: Results Labs Labs: Short CBC 05/28/24 Range/Units 05:34 WBC 1.8 L* (4.5-10.0) K/mm3 Hgb 9.7 L (14.0-18.0) g/dL Hct 31.8 L (42.0-52.0) % Plt Count 100 L (150-375) k/mm3 BMP 05/28/24 05:34 Sodium 139 Potassium 4.1 Chloride 110 H Carbon Dioxide 26 BUN 15 Creatinine 0.90 Glucose 99 Calcium 7.5 L Cardiac Enzymes 05/28/24 Range/Units 06:15 Troponin I < 0.012 (0.000-0.034) ng/mL Liver Function 05/28/24 Range/Units 05:34 Total Bilirubin 0.8 (0.2-1.3) mg/dL AST 17 (17-59) U/L ALT 22 (6-50) U/L Alkaline Phosphatase 78 (38-126) U/L Albumin 3.3 L (3.5-5.1) g/dL Assessment and Plan Assessment and plan (1) Pneumonia: Code(s): J18.9 - Pneumonia, unspecified organism Status: Acute (2) Pancytopenia: Code(s): D61.818 - Other pancytopenia Status: Acute (3) Atrial fibrillation with RVR: Code(s): I48.91 - Unspecified atrial fibrillation Status: Acute Plan Pneumonia, gram negative vs gram positive CXR reviewed Started on Levaquin Blood culture, MRSA ordered gentle rehydration monitor Afib with RVR EKG showed Afib RVR Continue Home Metoprolol Continue home Dabigatran One dose of Digoxin Pancytopenia From Chemotherapy last chemo was 1 weeks ago WBC 1.8, Plts 100 and Hb 9.7 Iron profile pending monitor Stage IV lung ca with recurrent disease on Chemo and immunotherapy continue outpatient follow up COPD with chronic respiratory failure on 3 liters oxygen NC tirate oxygen Hx of DVT Continue Xarelto DVT prophylaxis on Xarelto Full code Surrogate decision maker Edna [facility] Hospitalist [facility] Advance Care Plan I have confirmed that the patient's Advanced Care Plan is present, code status is documented, or surrogate decision maker is listed in patient medical record.: Yes Medication Reconciliation I have utilized all available resources to obtain, update and review the patients current medications (includes all prescriptions, OTC, herbals, cannabis, and nutritional supplements).: Yes
[2024-05-28] MEDS: levoFLOXacin 750 MG/D5W 150 ML 750 MG/150 ML BAG 100 MG IVPB (15:03)
[2024-05-28] MEDS: SODIUM CHLORIDE 0.9% IV 1,000 ML 75 ML IV CONT (15:03)
[2024-05-28] MEDS: predniSONE 10 MG TABLET PO (15:03)
[2024-05-28] MEDS: DIGOXIN INJ 250 MCG/ML 2 ML AMP (*BKC) 125 MCG IV PUSH (15:04)
[2024-05-28] MEDS: oxyCODONE HCL (*CRX) 5 MG TAB IR PO ×2 (15:08→21:33)
[2024-05-28 16:51] LABS: MRSA (PCR) NOT DETECTED (NOT DETECTE)
[2024-05-28 17:28] LABS: Immunoglobulin A 104 mg/dL (70-400); Immunoglobulin G 337 mg/dL (700-1600); Immunoglobulin M 26 mg/dL (40-230)
[2024-05-28] MEDS: RIVAROXABAN 20 MG TABLET PO (17:51)
[2024-05-28] MEDS: ONDANSETRON INJ 4 MG/2 ML VIAL IV PUSH (21:29)
[2024-05-28] MEDS: BUDESONIDE RESPULE NEB 0.5 MG/2 ML AMP INHALATION (21:58)
[2024-05-29] VITALS (19 sets, daily range): BP systolic 107–125; BP diastolic 52–66; PULSE 80–118; RESP 18–20; TEMP 36.2–36.5; O2SAT 98–100
--- NOTE | 2024-05-29 | ECHO_ITS ---
Patient Info Name: Jn Garay Age: 63 years : 1960 Gender: Male Ht: 72 in Wt: 196 lbs BSA: 2.14 m2 HR: 107 bpm BP: 107 / 52 mmHg Technical Quality: Poor Exam Date: 05/29/2024 3:34 PM Exam Location: Echo Lab Patient Status: Inpatient Admit Date: 05/28/2024 Staff Ordering Physician: Rachael Sauer MD Receiving Team Member: Segre Villatoro RDCS Attending Provider: Mukund Grimes MD Exam Type: CA echo dop color flow w con Study Info Indications I48.1 - Persistent atrial fibrillation R06.02 - Shortness of breath Complete two-dimensional, color flow and Doppler transthoracic echocardiogram is performed with contrast to opacify the left ventricle and to improve the deliniation of the left ventricle endocardial borders. Contrast/Agitated Saline Contrast/Ag. Saline: Definity Amount: 2.00 ml Existing IV Access: Yes IV Access Condition: patent with no signs of infiltration Reason for Poor Study: poor patient cooperation Summary 1. Technically difficult study, limited views. 2. Left ventricular chamber dimension is enlarged. 3. There is no increased left ventricular wall thickness. 4. Left ventricular systolic function is normal with a visually estimated ejection fraction of 55-60%. 5. Left ventricular wall motion shows hypokinesis of inf-septal segment. It is thinned out and hyperechoic suggestive of a prior infarct. Other christopher are hyperdynamic. 6. There is mild tricuspid valve regurgitation. 7. PASP cannot be 8. estimated due to insufficient TR jet. 9. There is no aortic valve stenosis with a peak velocity of 142.76 cm/s, mean gradient of 3 mmHg, and aortic valve area of 3.68 cm2. 10. There is no mitral valve regurgitation. Left Ventricle Left ventricular chamber dimension is enlarged. There is no increased left ventricular wall thickness. Left ventricular systolic function is normal with a visually estimated ejection fraction of 55-60%. Left ventricular wall motion shows hypokinesis of inf-septal segment. It is thinned out and hyperechoic suggestive of a prior infarct. Other chirstopher are hyperdynamic. The left ventricular diastolic function is normal. Right Ventricle Right ventricular chamber dimension is normal. Right ventricular systolic function is normal. Left Atria Left atrial chamber dimension is normal. Right Atria Right atrial chamber dimension is normal. Aortic Valve Aortic valve is not well visualized. There is no aortic valve stenosis with a peak velocity of 142.76 cm/s, mean gradient of 3 mmHg, and aortic valve area of 3.68 cm2. There is no aortic valve regurgitation. There is mild-moderate aortic valve sclerosis. Pulmonic Valve Pulmonary valve is not well visualized. Mitral Valve There is no mitral valve regurgitation. Tricuspid Valve The tricuspid valve is not well visualized. There is mild tricuspid valve regurgitation. PASP cannot be estimated due to insufficient TR jet. Inferior Vena Cava Inferior vena cava is not well visualized. Aorta The aortic root size at the sinus of Valsalva is normal. The ascending aorta is not well visualized. Left Ventricular Outflow Tract Name Value Normal LVOT 2D LVOT Diameter 2.02 cm LVOT Doppler LVOT Peak Velocity 123.71 cm/s LVOT Peak Gradient 6 mmHg LVOT Mean Gradient 3 mmHg LVOT VTI 23.55 cm LVOT VTI/AV VTI Ratio 1.15 LVOT Stroke Volume 75.11 ml LVOT CO 7.03 l/min LVOT CI 3.29 L/min/m2 Pulmonic Valve Name Value Normal PV Doppler PV Peak Velocity 88.54 cm/s PV Peak Gradient 3 mmHg Mitral Valve Name Value Normal MV Doppler MV Decel [place] 620.38 cm/s2 MV PHT 0 s MV Area (PHT) 4.63 cm2 4.00-5.00 MV Diastolic Function MV E Peak Velocity 101.66 cm/s MV A Peak Velocity 1.31 cm/s MV E/A 77.54 MV Decel Time 0 s Tricuspid Valve Name Value Normal TV Regurgitation Doppler TR Peak Velocity 254.44 cm/s TR Peak Gradient 10 mmHg TV Annular TDI TV Lateral Marian s' Velocity 10.10 cm/s 9.50-18.70 Aorta Name Value Normal Ascending Aorta Ao Root Diameter (MM) 2.14 cm Ao Root Diam Index (MM) 1.00 cm/m2 Aortic Valve Name Value Normal AV 2D/MM AV Cusp Sep (MM) 0.00 cm AV Doppler AV Peak Velocity 142.76 cm/s AV Peak Gradient 8 mmHg AV Mean Gradient 3 mmHg AV VTI 20.43 cm AV Area (Cont Eq VTI) 3.68 cm2 >=3.00 AV Area (Cont Eq Thomas) 2.76 cm2 AV V1/V2 Ratio 0.87 AV Regurgitation 2D LVOT Area 3.19 cm2 Ventricles Name Value Normal LV Dimensions 2D/MM IVS Diastolic Thickness (2D) 0.70 cm 0.60-1.00 LVID Diastole (2D) 5.38 cm 4.20-5.80 LVIW Diastolic Thickness (2D) 0.71 cm 0.60-1.00 LVID Systole (2D) 3.16 cm 2.50-4.00 LVOT Diameter 2.02 cm LV Mass (2D Cubed) 130.67 g 88.00-224.00 LV Mass Index (2D Cubed) 0.01 g/cm2 0.00-0.01 Relative Wall Thickness (2D) 0.26 LV Fractional Shortening/Ejection Fraction 2D/MM LV Fractional Shortening (2D) 41 % 25-43 LV EF (2D Teicholz) 72 % 52-72 LV Diastolic Volume (4C MOD) 73.17 ml LV EF (4C MOD) 70 % LV Diastolic Length (4C) 8.00 cm LV Systolic Length (4C) 6.15 cm LV Stroke Volume (4C MOD) 51.24 ml Atria Name Value Normal LA Dimensions LA Dimension (MM) 3.15 cm 3.00-4.10 LA Volume (4C A-L) 57.63 ml LA Volume (BP A-L) 66.00 ml RA Dimensions RA Area (4C) 13.43 cm2 <=18.00 Report Signatures
[2024-05-29] MEDS: LORazepam (*CRX) 0.5 MG TABLET PO (02:03)
[2024-05-29] MEDS: SODIUM CHLORIDE 0.9% IV 1,000 ML 75 ML IV CONT (02:04)
[2024-05-29] MEDS: CENTRAL LINE FLUSH 10 ML IV PUSH ×4 (02:06→22:54)
[2024-05-29] MEDS: IPRATROPIUM 0.5 MG/ALBUTEROL SULFATE 2.5 MG AMPUL.NEB 3 ML INHALATION ×4 (03:35→22:54)
[2024-05-29] MEDS: oxyCODONE HCL (*CRX) 5 MG TAB IR PO ×3 (04:23→16:38)
[2024-05-29] MEDS: ONDANSETRON INJ 4 MG/2 ML VIAL IV PUSH ×2 (06:00→13:06)
[2024-05-29 06:17] LABS: Basophils Percent Auto 1.1 % (0.2-1.2); Eosinophils Percent Auto 1.1 % (0-4.4); Hematocrit 28.6 % (42.0-52.0); Hemoglobin 8.7 g/dL (14.0-18.0); Immature Granulocyte Absolute 0.09 K/mm3 (0.00-0.031); Immature Granulocyte Percent A 4.7 % (0-0.5); Immature Platelet Fraction Pct 4.8 % (0.9-11.2); Lymphocytes Absolute Auto 0.54 K/mm3 (0.9-3.2); Lymphocytes Percent Auto 28.4 % (18.3-44.2); Mean Corpuscular HGB Conc 30.4 g/dl (32-36); Mean Corpuscular Volume 88.8 fl (80-100); Mean Platelet Volume 10.5 fl (7.4-10.4); Monocytes Absolute Auto 0.3 K/mm3 (0.1-0.6); Monocytes Percent Auto 16.8 % (2.6-8.5); Neutrophils Absolute Auto 0.9 K/mm3 (1.3-6.7); Neutrophils Percent Auto 47.9 % (45.5-73.1); Platelet Count Result 101 k/mm3 (150-375); Red Blood Count 3.22 M/mm3 (4.6-6.20); Red Cell Distribution Width 22.2 % (11.5-14.5)
[2024-05-29 06:28] LABS: Alanine Aminotransferase 20 U/L (6-50); Alkaline Phosphatase 73 U/L (38-126); Anion Gap 6 mmol/L (4-12); Aspartate Amino Transferase 16 U/L (17-59); Bilirubin,Total 0.6 mg/dL (0.2-1.3); Blood Urea Nitrogen 14 mg/dL (9-20); Calcium 6.7 mg/dL (8.4-10.2); Carbon Dioxide 21 mmol/L (22-30); Chloride 111 mmol/L (98-107); Estimated CRCL calculation 91 ml/min; Estimated Glomerular Filt Rate > 60; Glucose 95 mg/dL (65-110); Magnesium 2.5 mg/dL (1.6-2.3); Sodium 138 mmol/L (137-145)
[2024-05-29 07:06] LABS: White Blood Count 1.9 K/mm3 (4.5-10.0)
[2024-05-29 07:12] LABS: Band Neutrophils Percent 0 % (0-6); Eosinophils Absolute Manual 0.01 K/mm3 (0.02-0.50); Eosinophils Percent Manual 1 % (0-4); Lymphocytes Absolute Manual 0.39 K/mm3 (1.1-4.5); Lymphocytes Percent Manual 21 % (18-44); Monocytes Absolute Manual 0.17 K/mm3 (0.1-0.90); Monocytes Percent Manual 9 % (3-9); Neutrophils Absolute Manual 1.31 K/mm3 (1.3-6.7); Neutrophils Percent Manual 69 % (46-73); Platelet Estimate Decreased (Adequate); Total Cells Counted 100
[2024-05-29 07:13] LABS: Burr Cells 1+; Schistocytes None Seen
[2024-05-29 07:20] LABS: Iron 26 ug/dL (49-181)
[2024-05-29 07:29] LABS: Percent Iron Saturation 12 % (20-50)
[2024-05-29] MEDS: BUDESONIDE RESPULE NEB 0.5 MG/2 ML AMP INHALATION ×4 (07:45→22:57)
[2024-05-29] MEDS: FERROUS SULFATE 325 MG TABLET DR PO (08:17)
[2024-05-29] MEDS: METOPROLOL TARTRATE 12.5 MG TABLET PO (08:17)
[2024-05-29] MEDS: levoFLOXacin 750 MG/D5W 150 ML 750 MG/150 ML BAG 100 MG IVPB (08:18)
[2024-05-29] MEDS: FUROSEMIDE 40 MG TABLET PO ×2 (08:18→16:38)
[2024-05-29] MEDS: predniSONE 10 MG TABLET PO (08:18)
[2024-05-29] MEDS: SALINE 0.65% NAS SOLN 44 ML BTL 1 SPRAY NASAL ×2 (08:20→16:39)
[2024-05-29] MEDS: LORazepam (*CRX) 1 MG TABLET PO ×2 (10:17→18:32)
[2024-05-29] MEDS: VANCOMYCIN 1,250 MG/NS 250 ML 1,250 MG/250 ML BAG 166.67 MG IVPB (10:17)
[2024-05-29] MEDS: VANCOMYCIN 1,000 MG/NS 250 ML 1,000 MG/250 ML BAG 250 MG IVPB (12:10)
[2024-05-29] MEDS: FLUTICASONE PROPIONATE 0.05% NA SPR 16 GM BTL (*BKC) 1 SPRAY NASAL ×2 (12:28→20:31)
[2024-05-29] MEDS: LIDOCAINE 2% VISC SOLN 30 ML, ALUMINUM/MAGNESIUM/SIMETH SUSP 30 ML, diphenhydrAMINE HCl... PO (12:28)
--- NOTE | 2024-05-29 13:31 | PM.IMPN ---
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 Workup suggestive of pneumonia along with AFib with RVR. 1. Acute on chronic hypoxic respiratory failure: Secondary to pneumonia in setting of neutropenia Continue with tele monitoring Continue with O2 support Follow blood cultures Continue with levofloxacin Add vancomycin Continue with albuterol, budesonide, ipratropium Add Flonase, nasal saline Will DC fluids after 24 hours 2. AFib with RVR: Continue with tele monitoring Heart rate much better Continue with metoprolol Continue with Xarelto Obtain echocardiogram 3. Pancytopenia: In setting of ongoing chemotherapy Neutropenic precautions Monitor for fever Oncology consult, to see if he needs granulocyte stimulating factor to help improve neutropenia Monitor H&H, transfuse for hemoglobin less than 7 Monitor platelet counts 4. History of DVT: Continue with Xarelto 5. Code status: Full 6. Disposition: Pending improvement Time Spent With Patient Time: 40 minutes Subjective Date/time seen: 05/29/24 13:31 Interval history: Complaints of shortness of breath Review of Systems Review of Systems: All systems reviewed & are unremarkable except as noted in HPI and below Exam Narrative: General: alert Eyes: EOMI, PERRLA ENNT External ears normal, Neck is supple, no masses, Respiratory systems: Decreased breath sounds bilaterally Cardiovascular S1, S2, mild tachycardia, AFib Gastrointestinal: soft, non-tender, and non-distended abdomen with no masses; BS present Skin: no rash, lesions, ulcerations, subcutaneous nodules or induration Musculoskeletal: no abnormality and no tenderness, normal ROM Neurologic: Alert , non focal Mental Status Exam: normal affect Objective Data Vital Signs Vital Signs: Vital Signs - 24 hr 05/28/24 14:00 05/28/24 15:04 05/28/24 15:08 Temperature 98.8 F Pulse Rate 106 H 112 H Respiratory Rate 20 Blood Pressure 90/66 L 105/59 L Pulse Oximetry 98 Oxygen Delivery Oxygen Flow Rate Fraction of Inspired Oxygen 05/28/24 15:19 05/28/24 15:19 05/28/24 15:27 Temperature Pulse Rate 109 H 110 H Respiratory Rate 20 20 Blood Pressure Pulse Oximetry 98 Oxygen Delivery Nasal Cannula Oxygen Flow Rate 3 Fraction of Inspired Oxygen 05/28/24 16:05 05/28/24 17:52 05/28/24 17:54 Temperature Pulse Rate 111 H 110 H Respiratory Rate Blood Pressure 101/56 L Pulse Oximetry Oxygen Delivery Oxygen Flow Rate Fraction of Inspired Oxygen 05/28/24 20:00 05/28/24 20:00 05/28/24 20:27 Temperature 97.6 F Pulse Rate 88 94 Respiratory Rate 16 Blood Pressure 121/62 Pulse Oximetry 96 100 Oxygen Delivery Nasal Cannula Oxygen Flow Rate 3 Fraction of Inspired Oxygen 05/28/24 21:58 05/28/24 22:01 05/29/24 00:00 Temperature Pulse Rate 94 88 Respiratory Rate 20 Blood Pressure Pulse Oximetry 99 Oxygen Delivery Nasal Cannula Oxygen Flow Rate 3 Fraction of Inspired Oxygen 05/29/24 03:37 05/29/24 04:00 05/29/24 04:18 Temperature 97.4 F L Pulse Rate 101 H 106 H 106 H Respiratory Rate 20 18 Blood Pressure 112/66 Pulse Oximetry 98 Oxygen Delivery Oxygen Flow Rate Fraction of Inspired Oxygen 05/29/24 07:45 05/29/24 07:45 05/29/24 08:07 Temperature Pulse Rate 107 H 114 H Respiratory Rate 20 20 Blood Pressure Pulse Oximetry 98 Oxygen Delivery Nasal Cannula Oxygen Flow Rate 3 Fraction of Inspired Oxygen 32 05/29/24 08:17 05/29/24 08:32 Temperature Pulse Rate 103 H Respiratory Rate Blood Pressure Pulse Oximetry 100 Oxygen Delivery Nasal Cannula Oxygen Flow Rate 3 Fraction of Inspired Oxygen Intake/Output Intake/Output: Intake & Output 05/26/24 05/27/24 05/28/24 05/29/24 23:59 23:59 23:59 23:59 Intake Total 1550 1566.3 Balance 1550 1566.3 Meds/Results Medications: Active Medications Generic Name Dose Route Start Last Admin Trade Name Freq PRN Reason Stop Dose Admin Acetaminophen 650 mg 05/28/24 07:51 Acetaminophen 325 Mg Tablet PO Q4H PRN Mild Pain (1-3) or Fever Albuterol 2.5 mg 05/28/24 18:08 Albuterol Sulfate Neb 2.5 Mg/3 Ml Inh INHALATION Q4HRT PRN Shortness Of Breath Albuterol/Ipratropium 3 ml 05/28/24 14:00 05/29/24 07:45 Ipratropium 0.5 Mg/Albuterol Sulfate 2.5 Mg Ampul.Neb 3 Ml INHALATION 3 ml Q6HRT JESSICA Administration Budesonide 0.5 mg 05/28/24 20:00 05/29/24 07:45 Budesonide Respule Neb 0.5 Mg/2 Ml Amp INHALATION 0.5 mg Q12HRT JESSICA Administration Lidocaine HCl 30 ml/ Al Hydrox 0 ml 05/29/24 10:08 05/29/24 12:28 /Mg Hydrox/Simethicone 30 ml/ PO 5 ml Diphenhydramine HCl 75 mg Q4HWA PRN Administration mouth soreness Ergocalciferol 50,000 units 06/02/24 09:00 Ergocalciferol 50,000 Units Capsule PO WEEKLY JESSICA Ferrous Sulfate 325 mg 05/29/24 09:00 05/29/24 08:17 Ferrous Sulfate [address] PO 325 mg DAILY JESSICA Administration Fluticasone Propionate 1 spray 05/29/24 10:30 05/29/24 12:28 Fluticasone Propionate 0.05% Na Spr 16 Gm Btl (*Bkc) NASAL 1 spray Q12HR JESSICA Administration Folic Acid 1 mg 05/30/24 09:00 Folic Acid 1 Mg Tablet PO DAILY JESSICA Furosemide 40 mg 05/29/24 09:00 05/29/24 08:18 Furosemide 40 Mg Tablet PO 40 mg BID JESSICA Administration Guaifenesin 1,200 mg 05/29/24 21:00 Guaifenesin 12 Hr 600 Mg Tabcr PO Q12HR JESSICA Heparin Sodium (Beef Lung) 50 units 05/28/24 09:00 05/29/24 08:18 Heparin Flush 50 Units/5 Ml Syringe IV PUSH Not Given QAM JESSICA Heparin Sodium (Beef Lung) 50 units 05/28/24 07:25 Heparin Flush 50 Units/5 Ml Syringe IV PUSH PRN PRN after intermittent infusion Heparin Sodium (Beef Lung) 50 units 05/28/24 07:25 Heparin Flush 50 Units/5 Ml Syringe IV PUSH PRN PRN after blood draws Heparin Sodium (Porcine) 500 units 05/28/24 07:25 Heparin Sodium Lock Flush 500 Units/5 Ml Syringe IV PUSH PRN PRN see comments below Levofloxacin/Dextrose 750 mg in 150 mls @ 100 mls/hr 05/28/24 14:20 05/29/24 08:18 Levaquin 750 Mg/D5w 150 Ml IVPB 100 mls/hr QAM JESSICA Administration Sodium Chloride 1,000 mls @ 75 mls/hr 05/28/24 14:25 05/29/24 02:04 Normal Saline Iv IV CONT 75 mls/hr .[id number] JESSICA Administration Vancomycin HCl 1,500 mg in 500 mls @ 250 mls/hr 05/29/24 22:00 Vancomycin 1,500 Mg/Ns 500 Ml IVPB Q12H JESSICA Lorazepam 1 mg 05/29/24 10:09 05/29/24 10:17 Lorazepam (*Crx) 1 Mg Tablet PO 1 mg Q8H PRN Administration Anxiety Metoprolol Tartrate 12.5 mg 05/28/24 17:00 05/29/24 08:17 Metoprolol Tartrate 12.5 Mg Tablet PO 12.5 mg BID JESSICA Administration Non-Formulary Medication 2,500 mcg 05/30/24 09:00 Cyanocobalamin (Vitamin B-12) PO 06/29/24 08:59 DAILY JESSICA Non-Formulary Medication 40 mg 05/30/24 09:00 Omeprazole PO 06/29/24 08:59 DAILY JESSICA Ondansetron HCl 4 mg 05/28/24 07:51 05/29/24 13:06 Ondansetron Inj 4 Mg/2 Ml Vial IV PUSH 4 mg Q4H PRN Administration Nausea Oxycodone HCl 5 mg 05/28/24 14:20 05/29/24 10:21 Oxycodone Hcl (*Crx) 5 Mg Tab Ir PO 5 mg Q6H PRN Administration Breakthrough Pain Perflutren Lipid Microsphere 0 ml 05/29/24 13:30 Perflutren Lipid Microspheres 1.5 Ml Vial Diluted To 10 Ml Total Volume IV PUSH 06/01/24 13:30 ONCE PRN adequate visualization Protocol Pregabalin 225 mg 05/29/24 17:00 Pregabalin (*Crx) 75 Mg Capsule PO BID JESSICA Rivaroxaban 20 mg 05/28/24 17:00 05/28/24 17:51 Rivaroxaban 20 Mg Tablet PO 20 mg DAILY@1700 JESSICA Administration Sodium Chloride 10 ml 05/28/24 14:00 05/29/24 06:00 Central Line Flush IV PUSH 10 ml Q8HR JESSICA Administration Sodium Chloride 1 spray 05/28/24 10:14 05/29/24 08:20 Saline 0.65% Demetris Soln 44 Ml Btl NASAL 1 spray Q2H PRN Administration Congestion Tamsulosin HCl 0.4 mg 05/30/24 09:00 Tamsulosin Hcl 0.4 Mg Capsule PO DAILY [facility] Radiology Results: ITS Impressions Chest X-Ray 05/28/24 06:22 Impression: Mild interval improvement in right upper lobe consolidation, compatible mildly improving pneumonia. New left lower lobe airspace disease, which could reflect additional pneumonia. Small right pleural effusion. Labs Labs: Laboratory Results - last 24 hr 05/28/24 05/28/24 05/29/24 08:26 15:27 06:07 WBC 1.9 L* RBC 3.22 L Hgb 8.7 L Hct 28.6 L MCV 88.8 MCH 27.0 MCHC 30.4 L RDW 22.2 H Plt Count 101 L MPV 10.5 H Immature Gran % (Auto) 4.7 H Neut % (Auto) 47.9 Lymph % (Auto) 28.4 [place] % (Auto) 16.8 H Eos % (Auto) 1.1 Baso % (Auto) 1.1 Lymph # (Auto) 0.54 L [place] # (Auto) 0.3 Eos # (Auto) 0.0 Baso # (Auto) 0.0 Abs Immat Gran (auto) 0.09 H Absolute Neuts (auto) 0.9 L Absolute Nucleated RBC 0.000 Total Counted 100 Neutrophils % (Manual) 69 Band Neutrophils % 0 Lymphocytes % (Manual) 21 Monocytes % (Manual) 9 Eosinophils % (Manual) 1 Nucleated RBC % 0.0 Abs Neuts (Manual) 1.31 Abs Lymphs (Manual) 0.39 L Abs Monocytes (Manual) 0.17 Absolute Eos (Manual) 0.01 L Platelet Estimate Decreased % Immature Plt Fraction 4.8 Stephanie Cells 1+ Schistocytes None seen Sodium 138 Potassium 4.0 Chloride 111 H Carbon Dioxide 21 L Anion Gap 6 BUN 14 Creatinine 0.80 Estim Creat Clear Calc 91 Estimated GFR > 60 Glucose 95 Calcium 6.7 L Magnesium 2.5 H Iron 26 L TIBC 226 L % Saturation 12 L Ferritin 844.00 H Total Bilirubin 0.6 AST 16 L ALT 20 Alkaline Phosphatase 73 Total Protein 6.0 L Albumin 3.0 L Nasal MRSA (PCR) Not detected IgG 337 L IgA 104 IgM 26 L Quality VTE Prophylaxis VTE prophylaxis: pharmacologic ordered
[2024-05-29] MEDS: PERFLUTREN LIPID MICROSPHERES 1.5 ML VIAL DILUTED TO 10 ML TOTAL VOLUME IV PUSH (16:35)
--- NOTE | 2024-05-29 16:36 | IVDEFINITY ---
Prior to administration of IV Definity the patient was educated on the risks and benefits of the imaging enhancing agent including potential adverse side effects. The patient verbalized understanding. Allergies were verified. No exclusion criteria were identified and at least one of the following inclusion criteria were met: 1) physician request, 2) patient technically difficult to image (per the [place] [employer] guidelines of two or more segments not discernable within the apical view), or 3) questionable left ventricular function. ?
[2024-05-29] MEDS: RIVAROXABAN 20 MG TABLET PO (16:38)
[2024-05-29] MEDS: METOPROLOL TARTRATE 25 MG TABLET PO (16:38)
[2024-05-29] MEDS: PREGABALIN (*CRX) 75 MG CAPSULE 225 MG PO (16:38)
[2024-05-29] MEDS: oxyCODONE HCL (*CRX) 40 MG TAB SR 12HR PO (20:30)
[2024-05-29] MEDS: PANTOPRAZOLE 40 MG TABLET PO (20:30)
[2024-05-29] MEDS: guaiFENesin 12 HR 600 MG TABCR 1200 MG PO (20:31)
[2024-05-29] MEDS: VANCOMYCIN 1,500 MG/NS 500 ML 1,500 MG/500 ML BAG 250 MG IVPB (22:53)
[2024-05-30] VITALS (21 sets, daily range): BP systolic 101–105; BP diastolic 59–64; PULSE 83–120; RESP 18–20; TEMP 36.6–37; O2SAT 99–100
[2024-05-30] MEDS: LORazepam (*CRX) 1 MG TABLET PO ×3 (02:37→18:41)
[2024-05-30] MEDS: IPRATROPIUM 0.5 MG/ALBUTEROL SULFATE 2.5 MG AMPUL.NEB 3 ML INHALATION ×4 (03:04→20:03)
[2024-05-30] MEDS: oxyCODONE HCL (*CRX) 5 MG TAB IR PO ×3 (03:19→16:39)
[2024-05-30] MEDS: CENTRAL LINE FLUSH 10 ML IV PUSH ×2 (05:55→14:00)
[2024-05-30 06:13] LABS: Basophils Percent Auto 0.8 % (0.2-1.2); Eosinophils Percent Auto 2.3 % (0-4.4); Hemoglobin 7.5 g/dL (14.0-18.0); Immature Granulocyte Absolute 0.01 K/mm3 (0.00-0.031); Immature Granulocyte Percent A 0.8 % (0-0.5); Immature Platelet Fraction Pct 4.4 % (0.9-11.2); Lymphocytes Absolute Auto 0.45 K/mm3 (0.9-3.2); Lymphocytes Percent Auto 34.6 % (18.3-44.2); Mean Corpuscular Hemoglobin 26.5 pg (26-34); Mean Corpuscular Volume 88.3 fl (80-100); Mean Platelet Volume 11.8 fl (7.4-10.4); Monocytes Absolute Auto 0.3 K/mm3 (0.1-0.6); Monocytes Percent Auto 21.5 % (2.6-8.5); Neutrophils Absolute Auto 0.5 K/mm3 (1.3-6.7); Platelet Count Result 78 k/mm3 (150-375); Red Blood Count 2.83 M/mm3 (4.6-6.20); Red Cell Distribution Width 21.7 % (11.5-14.5)
[2024-05-30 06:17] LABS: Anion Gap 4 mmol/L (4-12); Blood Urea Nitrogen 12 mg/dL (9-20); Calcium 6.7 mg/dL (8.4-10.2); Carbon Dioxide 23 mmol/L (22-30); Chloride 110 mmol/L (98-107); Estimated CRCL calculation 91 ml/min; Estimated Glomerular Filt Rate > 60; Glucose 95 mg/dL (65-110); Magnesium 2.3 mg/dL (1.6-2.3); Potassium 3.7 mmol/L (3.4-5.0); Sodium 137 mmol/L (137-145)
[2024-05-30 06:54] LABS: White Blood Count 1.3 K/mm3 (4.5-10.0)
[2024-05-30 07:02] LABS: Anisocytosis 2+; Platelet Estimate Decreased (Adequate); Schistocytes None Seen
[2024-05-30] MEDS: BUDESONIDE RESPULE NEB 0.5 MG/2 ML AMP INHALATION (07:05)
[2024-05-30] MEDS: PREGABALIN (*CRX) 75 MG CAPSULE 225 MG PO ×2 (08:23→16:39)
[2024-05-30] MEDS: METOPROLOL TARTRATE 25 MG TABLET PO ×2 (08:23→16:39)
[2024-05-30] MEDS: PANTOPRAZOLE 40 MG TABLET PO ×2 (08:23→20:04)
[2024-05-30] MEDS: TAMSULOSIN HCL 0.4 MG CAPSULE PO (08:23)
[2024-05-30] MEDS: CYANOCOBALAMIN 500 MCG TABLET PO (08:23)
[2024-05-30] MEDS: FUROSEMIDE 40 MG TABLET PO ×2 (08:23→16:38)
[2024-05-30] MEDS: CYANOCOBALAMIN 1,000 MCG TABLET 2000 MCG PO (08:24)
[2024-05-30] MEDS: levoFLOXacin 750 MG/D5W 150 ML 750 MG/150 ML BAG 100 MG IVPB (08:24)
[2024-05-30] MEDS: oxyCODONE HCL (*CRX) 40 MG TAB SR 12HR PO ×2 (08:24→20:04)
[2024-05-30] MEDS: FOLIC ACID 1 MG TABLET PO (08:24)
[2024-05-30] MEDS: guaiFENesin 12 HR 600 MG TABCR 1200 MG PO ×2 (08:24→20:04)
[2024-05-30] MEDS: FERROUS SULFATE 325 MG TABLET DR PO (08:24)
[2024-05-30] MEDS: FLUTICASONE PROPIONATE 0.05% NA SPR 16 GM BTL (*BKC) 1 SPRAY NASAL (08:25)
[2024-05-30] MEDS: ONDANSETRON INJ 4 MG/2 ML VIAL IV PUSH (08:35)
[2024-05-30] MEDS: SALINE 0.65% NAS SOLN 44 ML BTL 1 SPRAY NASAL ×2 (10:00→20:05)
[2024-05-30] MEDS: VANCOMYCIN 1,500 MG/NS 500 ML 1,500 MG/500 ML BAG 250 MG IVPB (10:16)
[2024-05-30] MEDS: LIDOCAINE 2% VISC SOLN 30 ML, ALUMINUM/MAGNESIUM/SIMETH SUSP 30 ML, diphenhydrAMINE HCl... PO (12:35)
--- NOTE | 2024-05-30 13:00 | P.PNIM_ITS ---
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 Workup suggestive of pneumonia along with AFib with RVR. Chest x-ray showed mild interval improvement in right upper lobe consolidation compatible with mildly improving pneumonia. New left lower lobe airspace disease which could reflect additional pneumonia. Small right pleural effusion. Patient was noted to have pancytopenia due to ongoing chemotherapy. Oncology consultation has been obtained. Neutropenia worsen. Will give a dose of Neupogen. Acute on chronic hypoxic respiratory failure back to his baseline respiratory status requires 3.5 L via nasal cannula Pneumonia treated with levofloxacin and vancomycin Blood culture positive for Gram-positive cocci in clusters await identification. Currently on vancomycin. AFib with RVR much improved with metoprolol. Continue on Xarelto. Echo EF 55- 60% left ventricular wall motion shows hypokinesis of the inferior septal segment 80 sent out and hyperechoic suggestive of prior infarct. Other christopher are hyperdynamic. History of ablation in the past Stage IV non-small cell lung cancer metastasis to bone left chest port in place. Status post radiation to right upper lung currently on chemotherapy COPD Chronic respiratory failure on home oxygen History of atrial myxoma surgically removed in 2017 History of DVT on Xarelto Code status full code Time Spent With Patient Time: 40 minutes Subjective Date/time seen: 05/30/24 13:00 Interval history: No overnight events. Remains afebrile. Denies any diarrhea. Shortness of breath and cough present. Review of Systems Review of Systems: All systems reviewed & are unremarkable except as noted in HPI and below Exam Narrative: General: alert and oriented x3 not in acute distress Eyes: EOMI, PERRLA ENNT:External ears normal, Neck is supple, no masses, Respiratory systems: Decreased breath sounds bilaterally no respiratory distress Cardiovascular:S1, S2, AFib Gastrointestinal: soft, non-tender, and non-distended abdomen with no masses;BS present Skin: no rash, lesions, ulcerations, subcutaneous nodules or induration Musculoskeletal: no abnormality and no tenderness, normal ROM Neurologic: Alert , non focal Mental Status Exam: normal affect Objective Data Vital Signs Vital Signs: Vital Signs - 24 hr 05/29/24 14:00 05/29/24 14:16 05/29/24 14:24 Temperature 97.2 F L Pulse Rate 102 H 108 H 107 H Respiratory Rate 18 20 20 Blood Pressure 107/52 L Pulse Oximetry 100 Oxygen Delivery Oxygen Flow Rate 05/29/24 16:04 05/29/24 17:18 05/29/24 20:00 Temperature Pulse Rate 118 H 92 80 Respiratory Rate Blood Pressure Pulse Oximetry Oxygen Delivery Oxygen Flow Rate 05/29/24 20:27 05/29/24 22:50 05/29/24 23:08 Temperature 97.7 F Pulse Rate 89 101 H 107 H Respiratory Rate 18 20 20 Blood Pressure 125/59 L Pulse Oximetry 100 Oxygen Delivery Oxygen Flow Rate 05/30/24 00:00 05/30/24 03:04 05/30/24 03:13 Temperature Pulse Rate 83 99 101 H Respiratory Rate 20 20 Blood Pressure Pulse Oximetry Oxygen Delivery Oxygen Flow Rate 05/30/24 04:00 05/30/24 06:00 05/30/24 07:05 Temperature 97.9 F Pulse Rate 89 94 90 Respiratory Rate 18 18 Blood Pressure 102/59 L Pulse Oximetry 100 99 Oxygen Delivery Nasal Cannula Oxygen Flow Rate 3 05/30/24 07:05 05/30/24 07:15 05/30/24 08:23 Temperature Pulse Rate 90 93 110 H Respiratory Rate 18 20 Blood Pressure Pulse Oximetry Oxygen Delivery Oxygen Flow Rate 05/30/24 08:28 Temperature Pulse Rate Respiratory Rate Blood Pressure Pulse Oximetry 100 Oxygen Delivery Nasal Cannula Oxygen Flow Rate 3 Intake/Output Intake/Output: Intake & Output 05/27/24 05/28/24 05/29/24 05/30/24 23:59 23:59 23:59 23:59 Intake Total 1550 2356.3 1060 Balance 1550 2356.3 1060 Meds/Results Medications: Active Medications Generic Name Dose Route Start Last Admin Trade Name Freq PRN Reason Stop Dose Admin Acetaminophen 650 mg 05/28/24 07:51 Acetaminophen 325 Mg Tablet PO Q4H PRN Mild Pain (1-3) or Fever Albuterol 2.5 mg 05/28/24 18:08 Albuterol Sulfate Neb 2.5 Mg/3 Ml Inh INHALATION Q4HRT PRN Shortness Of Breath Albuterol/Ipratropium 3 ml 05/28/24 14:00 05/30/24 07:06 Ipratropium 0.5 Mg/Albuterol Sulfate 2.5 Mg Ampul.Neb 3 Ml INHALATION 3 ml Q6HRT JESSICA Administration Budesonide 0.5 mg 05/28/24 20:00 05/30/24 07:05 Budesonide Respule Neb 0.5 Mg/2 Ml Amp INHALATION 0.5 mg Q12HRT JESSICA Administration Lidocaine HCl 30 ml/ Al Hydrox 0 ml 05/29/24 10:08 05/30/24 12:35 /Mg Hydrox/Simethicone 30 ml/ PO 5 ml Diphenhydramine HCl 75 mg Q4HWA PRN Administration mouth soreness Cyanocobalamin 2,000 mcg 05/30/24 09:00 05/30/24 08:24 Cyanocobalamin 1,000 Mcg Tablet PO 2,000 mcg QAM JESSICA Administration Cyanocobalamin 500 mcg 05/30/24 09:00 05/30/24 08:23 Cyanocobalamin 500 Mcg Tablet PO 500 mcg QAM JESSICA Administration Ergocalciferol 50,000 units 06/02/24 09:00 Ergocalciferol 50,000 Units Capsule PO WEEKLY [facility] Ferrous Sulfate 325 mg 05/31/24 12:00 Ferrous Sulfate [address] PO DAILY@1200 [facility] Fluticasone Propionate 1 spray 05/29/24 10:30 05/30/24 08:25 Fluticasone Propionate 0.05% Na Spr 16 Gm Btl (*Bkc) NASAL 1 spray Q12HR JESSICA Administration Folic Acid 1 mg 05/30/24 09:00 05/30/24 08:24 Folic Acid 1 Mg Tablet PO 1 mg DAILY JESSICA Administration Furosemide 40 mg 05/29/24 09:00 05/30/24 08:23 Furosemide 40 Mg Tablet PO 40 mg BID JESSICA Administration Guaifenesin 1,200 mg 05/29/24 21:00 05/30/24 08:24 Guaifenesin 12 Hr 600 Mg Tabcr PO 1,200 mg Q12HR JESSICA Administration Heparin Sodium (Beef Lung) 50 units 05/28/24 09:00 05/30/24 12:20 Heparin Flush 50 Units/5 Ml Syringe IV PUSH 50 units QAM JESSICA Administration Heparin Sodium (Beef Lung) 50 units 05/28/24 07:25 Heparin Flush 50 Units/5 Ml Syringe IV PUSH PRN PRN after intermittent infusion Heparin Sodium (Beef Lung) 50 units 05/28/24 07:25 Heparin Flush 50 Units/5 Ml Syringe IV PUSH PRN PRN after blood draws Heparin Sodium (Porcine) 500 units 05/28/24 07:25 Heparin Sodium Lock Flush 500 Units/5 Ml Syringe IV PUSH PRN PRN see comments below Vancomycin HCl 1,500 mg in 500 mls @ 250 mls/hr 05/29/24 22:00 05/30/24 10:16 Vancomycin 1,500 Mg/Ns 500 Ml IVPB 250 mls/hr Q12H JESSICA Administration Levofloxacin 750 mg 05/31/24 09:00 Levofloxacin 750 Mg Tablet PO DAILY JESSICA Lorazepam 1 mg 05/29/24 10:09 05/30/24 10:07 Lorazepam (*Crx) 1 Mg Tablet PO 1 mg Q8H PRN Administration Anxiety Metoprolol Tartrate 25 mg 05/29/24 17:00 05/30/24 08:23 Metoprolol Tartrate 25 Mg Tablet PO 25 mg BID JESSICA Administration Ondansetron HCl 4 mg 05/28/24 07:51 05/30/24 08:35 Ondansetron Inj 4 Mg/2 Ml Vial IV PUSH 4 mg Q4H PRN Administration Nausea Oxycodone HCl 5 mg 05/28/24 14:20 05/30/24 10:20 Oxycodone Hcl (*Crx) 5 Mg Tab Ir PO 5 mg Q6H PRN Administration Breakthrough Pain Oxycodone HCl 40 mg 05/29/24 21:00 05/30/24 08:24 Oxycodone Hcl (*Crx) 40 Mg Tab Sr 12hr PO 40 mg Q12H JESSICA Administration Pantoprazole Sodium 40 mg 05/29/24 21:00 05/30/24 08:23 Pantoprazole 40 Mg Tablet PO 40 mg Q12HR JESSICA Administration Pregabalin 225 mg 05/29/24 17:00 05/30/24 08:23 Pregabalin (*Crx) 75 Mg Capsule PO 225 mg BID JESSICA Administration Rivaroxaban 20 mg 05/28/24 17:00 05/29/24 16:38 Rivaroxaban 20 Mg Tablet PO 20 mg DAILY@1700 JESSICA Administration Senna/Docusate Sodium 1 tab 05/30/24 12:23 Senna/Docusate Sodium Tablet PO DAILY PRN constipation Sodium Chloride 10 ml 05/28/24 14:00 05/30/24 05:55 Central Line Flush IV PUSH 10 ml Q8HR JESSICA Administration Sodium Chloride 1 spray 05/28/24 10:14 05/29/24 16:39 Saline 0.65% Demetris Soln 44 Ml Btl NASAL 1 spray Q2H PRN Administration Congestion Tamsulosin HCl 0.4 mg 05/30/24 09:00 05/30/24 08:23 Tamsulosin Hcl 0.4 Mg Capsule PO 0.4 mg DAILY JESSICA Administration Radiology Results: ITS Impressions Chest X-Ray 05/28/24 06:22 Impression: Mild interval improvement in right upper lobe consolidation, compatible mildly improving pneumonia. New left lower lobe airspace disease, which could reflect additional pneumonia. Small right pleural effusion. Labs Labs: Laboratory Results - last 24 hr 05/30/24 05:57 WBC 1.3 L* RBC 2.83 L Hgb 7.5 L Hct 25.0 L MCV 88.3 MCH 26.5 MCHC 30.0 L RDW 21.7 H Plt Count 78 L MPV 11.8 H Immature Gran % (Auto) 0.8 H Neut % (Auto) 40.0 L Lymph % (Auto) 34.6 [place] % (Auto) 21.5 H Eos % (Auto) 2.3 Baso % (Auto) 0.8 Lymph # (Auto) 0.45 L [place] # (Auto) 0.3 Eos # (Auto) 0.0 Baso # (Auto) 0.0 Abs Immat Gran (auto) 0.01 Absolute Neuts (auto) 0.5 L Absolute Nucleated RBC 0.000 Nucleated RBC % 0.0 Platelet Estimate Decreased % Immature Plt Fraction 4.4 Anisocytosis 2+ Schistocytes None seen Sodium 137 Potassium 3.7 Chloride 110 H Carbon Dioxide 23 Anion Gap 4 BUN 12 Creatinine 0.80 Estim Creat Clear Calc 91 Estimated GFR > 60 Glucose 95 Calcium 6.7 L Magnesium 2.3 Quality VTE Prophylaxis VTE prophylaxis: pharmacologic ordered
[2024-05-30] MEDS: SENNA/DOCUSATE SODIUM TABLET 1 TAB PO (14:00)
[2024-05-30] MEDS: FILGRASTIM-SNDZ 300 MCG/0.5 ML SYRINGE SUB-Q (14:01)
[2024-05-30] MEDS: RIVAROXABAN 20 MG TABLET PO (16:39)
--- NOTE | 2024-05-30 17:00 | P.CONONC_ITS ---
Assessment and Plan Assessment and plan (1) Pancytopenia: Code(s): D61.818 - Other pancytopenia Status: Acute (2) Metastatic non-small cell lung cancer: Code(s): C34.90 - Malignant neoplasm of unspecified part of unspecified bronchus or lung Status: Acute Plan Metastatic non-small cell lung cancer with bone metastasis. Patient is on 3rd line chemotherapy with Cyramza and Taxotere receive cycle 3. On May 21. My plan was to perform imaging studies after 3 cycles of chemotherapy. Patient is currently being admitted for pneumonia. We will hold on doing the CT scan and order the repeat CT scan after the cycle 4. Of chemotherapy. He will follow-up in the office. Pancytopenia. Secondary to chemotherapy. We will continue Neupogen 480 mcg subQ daily until WBC count more than 4000. Will also test for iron studies and vitamin B12 level. Transfuse as needed. Worsening of pancytopenia is likely secondary to infection and medication induced. Patient is asymptomatic with no bleeding and bruising. Jefferson Baez MD HPI Data of Consult Date/Time: 05/30/24 17:00 Requesting Physician: Jose R Cassidy MD Primary Care Provider: Camden Bran, PA Consult Narrative Reason for consult: Lung cancer Narrative: Jn Garay is a 63 year old male with stage 4 lung cancer with bone scan showing multifocal bone metastasis currently on palliative chemotherapy with Cyramza and Taxotere started after progression on Alimta and Keytruda. He received cycle 3. Of chemotherapy on May 21. He came into the hospital with shortness of breath for the 4 days duration along with cough without any fevers and chills. Chest x-ray showed new left lower lobe airspace disease likely pneumonia along with mild interval improvement in the right upper lobe consolidation compatible with mildly improving pneumonia and small right-sided pleural effusion. Labs showed WBC count of 1.3 with hemoglobin [place] 7[place] [id number]. He denies any bleeding and bruising. He remains quite tired and fatigued. Blood culture showed Gram-positive cocci. Review of Systems 2 Review of Systems: As per HPI otherwise negative PMFSH Past Medical History Medical History History of recurrent pneumonia Chronic anticoagulation Chronic respiratory failure with hypoxia, on home oxygen therapy Chronic obstructive pulmonary disease uses 3 L prn Benign prostatic hyperplasia Chronic anemia Seasonal allergies History of pulmonary embolism (12/2018) History of DVT (deep vein thrombosis) Right upper extremity DVT and bilateral PE December 2018 for which he took Xarelto for several months. Anxiety Peripheral neuropathy Chronic pain syndrome Due to chronic lower back pain after complications with lower spinal fusion 2009. Hypertension Reports he is no longer on medications for such. Atrial fibrillation s/p cardiac ablation by Dr. Tom Oakley at [facility] Adenocarcinoma, lung Non-small cell carcinoma diagnosed June 2018. Follows with Dr. Baez and Dr. Cavazos; underwent radiation therapy from 12/05/2018 to 12/18/2018 and again in fall 2021 due to recurrence. Now with metastatic disease to lymph nodes and bone. He is currently receiving chemotherapy and has plans to start Keytruda on August 18. 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 Followed by Dr. Parson at [facility] last seen around December 2018. Surgical History Surgical History (Updated 05/09/24 @ 14:36 by Traci Dawn PA-C) History of cholecystectomy History of transurethral resection of prostate History of open heart surgery (~2017) Status post resection of atrial myxoma. History of lumbar fusion Anterior and posterior L4-S1 fusion 2009 History of appendectomy In the History of carpal tunnel release Left 2010 History of elbow surgery Left elbow ulnar neurolysis Family History Family History Father Acute myocardial infarction Pulmonary embolism Sibling Breast cancer Mother Family history of chronic obstructive pulmonary disease Social History Social History Social History: Mr. Garay lives with his ex- Edna in [place]. They have 2 children. 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 He denies significant alcohol use, drinks socially. Smoked 2 packs per day of cigarettes x 40 years and quit Amadeo 2018. Denies other substance use. Long-term opioid use due to chronic back pain. Ambulates without a cane or walker at home. He designates his ex- as his surrogate decision maker and he wishes to be a full code however, he states he would not want to be on a ventilator for long-term. Smoking packs per day: 2 Smoking cigarettes per day: 40.0 Years smoked: 40 Smoking pack-years: 80.00 Smoking status: Former smoker Second hand tobacco smoke exposure: Yes Alcohol intake: never Substance use: never Substance use type: does not use Do You Feel Safe in your Home?: Yes Lack of Transportation: No Lack of Food: Never True Current Housing: I Have Housing Concerned About Future Housing: No Difficulty Paying Gas/Electric Bills: No Difficulty Paying for Meds: No Currently Unemployed: No Education: Decline to Answer Difficulty w/ Childcare or Family Care: No Living arrangements: with family Occupation/Education: unemployed Spiritual care concerns: No Meds Home Medications and Allergies Home Medications ?Medication ?Instructions ?Recorded ?Confirmed ?Type pregabalin 225 mg capsule (Lyrica) 225 mg PO BID 11/07/19 05/28/24 History triamcinolone acetonide 0.1 % 1 applic topical QID PRN psioriasis 11/07/19 05/28/24 History topical cream (Triderm) cholecalciferol (vitamin D3) 1,250 1,250 mcg PO WEEKLY 09/09/20 05/28/24 History mcg (50,000 unit) capsule tamsulosin 0.4 mg capsule 0.4 mg PO DAILY 01/10/22 05/28/24 History metoprolol tartrate 25 mg tablet 12.5 mg PO BID 04/22/22 05/28/24 History lorazepam 0.5 mg tablet 0.5 mg PO Q8H PRN Anxiety #10 tabs 04/26/22 05/28/24 Rx albuterol sulfate 90 mcg/actuation 2 inh inhalation Q4H PRN Shortness 05/15/22 05/28/24 History aerosol inhaler Of Breath Or Wheezing ferrous sulfate 325 mg (65 mg 325 mg PO DAILY 07/18/22 05/28/24 History iron) tablet (iron) folic acid 1 mg tablet 1 mg PO DAILY 07/26/22 05/28/24 History omeprazole 40 mg capsule,delayed 40 mg PO DAILY 08/03/22 05/28/24 History release ondansetron HCl 8 mg tablet 8 mg PO QID PRN NAUSEA 08/03/22 05/28/24 History rivaroxaban 20 mg tablet (Xarelto) 20 mg PO DAILY@1700 #30 tabs 08/04/22 05/28/24 Rx oxycodone 40 mg tablet,crush 40 mg PO Q12H 01/02/24 05/28/24 History resistant,extended release 12 hr acetaminophen 500 mg tablet 500 mg PO Q6H PRN Pain (Scale 03/07/24 05/28/24 History Score 1-3) budesonide 0.5 mg/2 mL suspension 0.5 mg inhalation BID 03/07/24 05/28/24 History for nebulization cyanocobalamin (vitamin B-12) 2,500 mcg PO DAILY 03/07/24 05/28/24 History fluticasone propion-salmeterol 2 puff inhalation Q12H 03/07/24 05/28/24 History naloxone 4 mg/actuation nasal 4 mg intranasal PER PKG DIR 03/07/24 05/28/24 History spray (Narcan) oxycodone 5 mg capsule 5 mg PO Q6H PRN Breakthrough Pain 03/07/24 05/28/24 History guaifenesin 600 mg tablet, 1,200 mg (2 x 600 mg) PO Q12HR #10 03/12/24 05/28/24 Rx extended release 12 hr (Mucus tabs Relief ER) sennosides 8.6 mg-docusate sodium 1 tab-cap PO DAILY 03/25/24 05/28/24 History 50 mg tablet (Senokot-S) ergocalciferol (vitamin D2) 1,250 50,000 unit PO Mo@0900 05/17/24 05/28/24 Rx mcg (50,000 unit) capsule (Vitamin hypocalcemia #12 caps D2) prednisone 10 mg tablet 10 mg PO DIRECTED #40 tabs 05/17/24 05/28/24 Rx sodium chloride 0.65 % nasal spray 1 spray intranasal BID #45 mL 05/17/24 05/28/24 Rx aerosol (Saline Mist) sodium chloride 0.65 % nasal spray 1 spray intranasal Q2H PRN 05/17/24 05/28/24 Rx aerosol (Saline Mist) Congestion 1 month #45 mL furosemide 40 mg tablet 40 mg PO BID edema 05/28/24 05/28/24 History sodium chloride-aloe vera nasal 1 applic intranasal Q6H PRN nasal 05/28/24 05/28/24 History gel (Oakley Saline nasal gel) dryness Allergies Allergy/AdvReac Type Severity Reaction Status Date / Time bee venom protein (honey bee) Allergy Unknown Swelling Verified 05/28/24 05:25 alprazolam (From Xanax) AdvReac Intermediate Agitated Verified 05/29/24 15:08 Vital Signs Vital Signs - 24 hr 05/29/24 17:18 05/29/24 20:00 05/29/24 20:27 Temperature 36.5 C Pulse Rate 92 80 89 Respiratory Rate 18 Blood Pressure 125/59 L Pulse Oximetry 100 Oxygen Delivery Oxygen Flow Rate 05/29/24 22:50 05/29/24 23:08 05/30/24 00:00 Temperature Pulse Rate 101 H 107 H 83 Respiratory Rate 20 20 Blood Pressure Pulse Oximetry Oxygen Delivery Oxygen Flow Rate 05/30/24 03:04 05/30/24 03:13 05/30/24 04:00 Temperature Pulse Rate 99 101 H 89 Respiratory Rate 20 20 Blood Pressure Pulse Oximetry Oxygen Delivery Oxygen Flow Rate 05/30/24 06:00 05/30/24 07:05 05/30/24 07:05 Temperature 36.6 C Pulse Rate 94 90 90 Respiratory Rate 18 18 18 Blood Pressure 102/59 L Pulse Oximetry 100 99 Oxygen Delivery Nasal Cannula Oxygen Flow Rate 3 05/30/24 07:15 05/30/24 08:23 05/30/24 08:28 Temperature Pulse Rate 93 110 H Respiratory Rate 20 Blood Pressure Pulse Oximetry 100 Oxygen Delivery Nasal Cannula Oxygen Flow Rate 3 05/30/24 13:00 05/30/24 13:10 05/30/24 14:17 Temperature 36.9 C Pulse Rate 102 H 100 103 H Respiratory Rate 20 20 18 Blood Pressure 105/64 Pulse Oximetry 100 Oxygen Delivery Oxygen Flow Rate 05/30/24 16:39 Temperature Pulse Rate 114 H Respiratory Rate Blood Pressure Pulse Oximetry Oxygen Delivery Oxygen Flow Rate Exam 2 Const: Other: Patient looks tired and fatigued Chest: Other: Few rhonchi and wheezing bilaterally Cardio: Other: Tachycardic without any murmur GI: Other: Soft nontender nondistended bowel sounds are positive Neuro: Other: Alert and awake Extrem: Other: No edema Results Labs 05/30/24 05:57 05/30/24 05:57 Labs: Short CBC 05/30/24 Range/Units 05:57 WBC 1.3 L* (4.5-10.0) K/mm3 Hgb 7.5 L (14.0-18.0) g/dL Hct 25.0 L (42.0-52.0) % Plt Count 78 L (150-375) k/mm3 [facility] 05/30/24 05:57 Sodium 137 Potassium 3.7 Chloride 110 H Carbon Dioxide 23 BUN 12 Creatinine 0.80 Glucose 95 Calcium 6.7 L
[2024-05-30] MEDS: ACETAMINOPHEN 325 MG TABLET 650 MG PO (20:19)
[2024-05-30 20:44] LABS: Iron < 10 ug/dL (49-181)
[2024-05-30 20:50] LABS: Vancomycin Trough 21.6 ug/mL (10.0-20.0)
[2024-05-30 21:14] LABS: Percent Iron Saturation < 3 % (20-50)
[2024-05-30 21:52] LABS: Folic Acid 16.5 ng/mL (2.76->20); Vitamin B12 > 1000.0 pg/mL (239-931)
[2024-05-31] VITALS (19 sets, daily range): BP systolic 104–114; BP diastolic 64–65; PULSE 94–127; RESP 18–22; TEMP 36.6–36.9; O2SAT 97–100
[2024-05-31] MEDS: IPRATROPIUM 0.5 MG/ALBUTEROL SULFATE 2.5 MG AMPUL.NEB 3 ML INHALATION ×4 (02:43→20:24)
[2024-05-31] MEDS: VANCOMYCIN 1,500 MG/NS 500 ML 1,500 MG/500 ML BAG 250 MG IVPB ×2 (03:26→20:17)
[2024-05-31] MEDS: LORazepam (*CRX) 1 MG TABLET PO ×2 (03:26→12:09)
[2024-05-31] MEDS: CENTRAL LINE FLUSH 10 ML IV PUSH ×4 (03:27→21:09)
[2024-05-31] MEDS: oxyCODONE HCL (*CRX) 5 MG TAB IR PO ×2 (03:27→15:08)
[2024-05-31] MEDS: FLUTICASONE PROPIONATE 0.05% NA SPR 16 GM BTL (*BKC) 1 SPRAY NASAL ×3 (03:27→21:08)
[2024-05-31] MEDS: LIDOCAINE 2% VISC SOLN 30 ML, ALUMINUM/MAGNESIUM/SIMETH SUSP 30 ML, diphenhydrAMINE HCl... PO (03:31)
[2024-05-31 05:51] LABS: Basophils Percent Auto 0.4 % (0.2-1.2); Eosinophils Percent Auto 0.8 % (0-4.4); Hematocrit 23.9 % (42.0-52.0); Hemoglobin 7.4 g/dL (14.0-18.0); Immature Granulocyte Absolute 0.03 K/mm3 (0.00-0.031); Immature Granulocyte Percent A 1.2 % (0-0.5); Lymphocytes Absolute Auto 0.73 K/mm3 (0.9-3.2); Lymphocytes Percent Auto 29.4 % (18.3-44.2); Mean Corpuscular Hemoglobin 27.1 pg (26-34); Mean Corpuscular Volume 87.5 fl (80-100); Mean Platelet Volume 9.9 fl (7.4-10.4); Monocytes Absolute Auto 0.4 K/mm3 (0.1-0.6); Monocytes Percent Auto 17.3 % (2.6-8.5); Neutrophils Absolute Auto 1.3 K/mm3 (1.3-6.7); Neutrophils Percent Auto 50.9 % (45.5-73.1); Platelet Count Result 81 k/mm3 (150-375); Red Blood Count 2.73 M/mm3 (4.6-6.20); Red Cell Distribution Width 21.7 % (11.5-14.5); White Blood Count 2.5 K/mm3 (4.5-10.0)
[2024-05-31 05:59] LABS: Alanine Aminotransferase 12 U/L (6-50); Albumin Level 2.8 g/dL (3.5-5.1); Alkaline Phosphatase 62 U/L (38-126); Anion Gap 3 mmol/L (4-12); Aspartate Amino Transferase 13 U/L (17-59); Bilirubin,Total 0.5 mg/dL (0.2-1.3); Blood Urea Nitrogen 12 mg/dL (9-20); Calcium 7.6 mg/dL (8.4-10.2); Carbon Dioxide 23 mmol/L (22-30); Chloride 111 mmol/L (98-107); Estimated CRCL calculation 91 ml/min; Estimated Glomerular Filt Rate > 60; Glucose 95 mg/dL (65-110); Magnesium 2.1 mg/dL (1.6-2.3); Potassium 3.4 mmol/L (3.4-5.0); Sodium 137 mmol/L (137-145)
[2024-05-31] MEDS: CYANOCOBALAMIN 1,000 MCG TABLET 2000 MCG PO (09:30)
[2024-05-31] MEDS: PREGABALIN (*CRX) 75 MG CAPSULE 225 MG PO ×2 (09:30→16:35)
[2024-05-31] MEDS: CYANOCOBALAMIN 500 MCG TABLET PO (09:30)
[2024-05-31] MEDS: levoFLOXacin 750 MG TABLET PO (09:30)
[2024-05-31] MEDS: TAMSULOSIN HCL 0.4 MG CAPSULE PO (09:30)
[2024-05-31] MEDS: oxyCODONE HCL (*CRX) 40 MG TAB SR 12HR PO ×2 (09:31→20:17)
[2024-05-31] MEDS: FUROSEMIDE 40 MG TABLET PO ×2 (09:31→16:35)
[2024-05-31] MEDS: FOLIC ACID 1 MG TABLET PO (09:31)
[2024-05-31] MEDS: PANTOPRAZOLE 40 MG TABLET PO ×2 (09:31→20:17)
[2024-05-31] MEDS: METOPROLOL TARTRATE 25 MG TABLET PO (09:31)
[2024-05-31] MEDS: guaiFENesin 12 HR 600 MG TABCR 1200 MG PO ×2 (09:31→20:17)
[2024-05-31] MEDS: FILGRASTIM-SNDZ 480 MCG/0.8 ML SYRINGE SUB-Q (09:47)
[2024-05-31] MEDS: BUDESONIDE RESPULE NEB 0.5 MG/2 ML AMP INHALATION ×2 (10:17→20:25)
[2024-05-31] MEDS: FERROUS SULFATE 325 MG TABLET DR PO (11:43)
--- NOTE | 2024-05-31 13:01 | P.PNIM_ITS ---
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 Workup suggestive of pneumonia along with AFib with RVR. Chest x-ray showed mild interval improvement in right upper lobe consolidation compatible with mildly improving pneumonia. New left lower lobe airspace disease which could reflect additional pneumonia. Small right pleural effusion. Patient was noted to have pancytopenia due to ongoing chemotherapy. Oncology consultation has been obtained. Neutropenia worsen. Started on Neupogen. Improved neutropenia. Will continue 1 more day. Recheck CBC in a.m. Acute on chronic hypoxic respiratory failure back to his baseline respiratory status requires 3.5 L via nasal cannula Pneumonia treated with levofloxacin and vancomycin Blood culture positive for Gram-positive cocci in clusters identified as Staph hominis and epidermidis. Currently on vancomycin. Due to neutropenia post chemo will continue IV vancomycin for at least 5 days AFib with RVR much improved with metoprolol. Continue on Xarelto. Echo EF 55- 60% left ventricular wall motion shows hypokinesis of the inferior septal segment 80 sent out and hyperechoic suggestive of prior infarct. Other christopher are hyperdynamic. History of ablation in the past Stage IV non-small cell lung cancer metastasis to bone left chest port in place. Status post radiation to right upper lung currently on chemotherapy COPD Chronic respiratory failure on home oxygen History of atrial myxoma surgically removed in 2017 History of DVT on Xarelto Code status full code Subjective Date/time seen: 05/31/24 13:01 Interval history: No overnight events. Remains afebrile. Cough present. Denies any shortness of breath. Review of Systems Review of Systems: All systems reviewed & are unremarkable except as noted in HPI and below Exam Narrative: General: alert and oriented x3 not in acute distress Eyes: EOMI, PERRLA ENNT:External ears normal, Neck is supple, no masses, Respiratory systems: Decreased breath sounds bilaterally no respiratory distress Cardiovascular:S1, S2, AFib Gastrointestinal: soft, non-tender, and non-distended abdomen with no masses;BS present Skin: no rash, lesions, ulcerations, subcutaneous nodules or induration Musculoskeletal: no abnormality and no tenderness, normal ROM Neurologic: Alert , non focal Mental Status Exam: normal affect Objective Data Vital Signs Vital Signs: Vital Signs - 24 hr 05/30/24 13:10 05/30/24 14:17 05/30/24 16:04 Temperature 98.4 F Pulse Rate 100 103 H 104 H Respiratory Rate 20 18 Blood Pressure 105/64 Pulse Oximetry 100 Oxygen Delivery Oxygen Flow Rate Fraction of Inspired Oxygen 05/30/24 16:39 05/30/24 20:00 05/30/24 20:00 Temperature Pulse Rate 114 H 111 H Respiratory Rate Blood Pressure Pulse Oximetry 100 Oxygen Delivery Nasal Cannula Oxygen Flow Rate 3 Fraction of Inspired Oxygen 05/30/24 20:06 05/30/24 20:12 05/30/24 20:21 Temperature Pulse Rate 115 H 120 H Respiratory Rate 20 20 Blood Pressure Pulse Oximetry 100 Oxygen Delivery Nasal Cannula Oxygen Flow Rate 3 Fraction of Inspired Oxygen 05/30/24 22:00 05/31/24 00:00 05/31/24 02:45 Temperature 98.6 F Pulse Rate 115 H 94 100 Respiratory Rate 18 20 Blood Pressure 101/61 Pulse Oximetry 99 Oxygen Delivery Oxygen Flow Rate Fraction of Inspired Oxygen 05/31/24 02:52 05/31/24 04:00 05/31/24 06:00 Temperature 97.9 F Pulse Rate 103 H 101 H 97 Respiratory Rate 20 18 Blood Pressure 106/64 Pulse Oximetry 100 Oxygen Delivery Oxygen Flow Rate Fraction of Inspired Oxygen 05/31/24 07:40 05/31/24 07:40 05/31/24 07:53 Temperature Pulse Rate 115 H 113 H Respiratory Rate 20 20 Blood Pressure Pulse Oximetry 100 Oxygen Delivery Nasal Cannula Oxygen Flow Rate 3 Fraction of Inspired Oxygen 32 05/31/24 08:00 05/31/24 08:00 Temperature Pulse Rate 108 H Respiratory Rate Blood Pressure Pulse Oximetry 100 Oxygen Delivery Nasal Cannula Oxygen Flow Rate 3 Fraction of Inspired Oxygen Intake/Output Intake/Output: Intake & Output 05/28/24 05/29/24 05/30/24 05/31/24 23:59 23:59 23:59 23:59 Intake Total 1550 2356.3 1640 1190 Balance 1550 2356.3 1640 1190 Meds/Results Medications: Active Medications Generic Name Dose Route Start Last Admin Trade Name Freq PRN Reason Stop Dose Admin Acetaminophen 650 mg 05/28/24 07:51 05/30/24 20:19 Acetaminophen 325 Mg Tablet PO 650 mg Q4H PRN Administration Mild Pain (1-3) or Fever Albuterol 2.5 mg 05/28/24 18:08 Albuterol Sulfate Neb 2.5 Mg/3 Ml Inh INHALATION Q4HRT PRN Shortness Of Breath Albuterol/Ipratropium 3 ml 05/28/24 14:00 05/31/24 07:38 Ipratropium 0.5 Mg/Albuterol Sulfate 2.5 Mg Ampul.Neb 3 Ml INHALATION 3 ml Q6HRT JESSICA Administration Budesonide 0.5 mg 05/28/24 20:00 05/31/24 10:17 Budesonide Respule Neb 0.5 Mg/2 Ml Amp INHALATION 0.5 mg Q12HRT JESSICA Administration Lidocaine HCl 30 ml/ Al Hydrox 0 ml 05/29/24 10:08 05/31/24 03:31 /Mg Hydrox/Simethicone 30 ml/ PO 30 ml Diphenhydramine HCl 75 mg Q4HWA PRN Administration mouth soreness Cyanocobalamin 2,000 mcg 05/30/24 09:00 05/31/24 09:30 Cyanocobalamin 1,000 Mcg Tablet PO 2,000 mcg QAM JESSICA Administration Cyanocobalamin 500 mcg 05/30/24 09:00 05/31/24 09:30 Cyanocobalamin 500 Mcg Tablet PO 500 mcg QAM JESSICA Administration Ergocalciferol 50,000 units 06/02/24 09:00 Ergocalciferol 50,000 Units Capsule PO WEEKLY [facility] Ferrous Sulfate 325 mg 05/31/24 12:00 05/31/24 11:43 Ferrous Sulfate [address] PO 325 mg DAILY@1200 JESSICA Administration Filgrastim-Sndz 480 mcg 05/31/24 09:00 05/31/24 09:47 Filgrastim-Sndz 480 Mcg/0.8 Ml Syringe SUB-Q 480 mcg DAILY JESSICA Administration Fluticasone Propionate 1 spray 05/29/24 10:30 05/31/24 09:29 Fluticasone Propionate 0.05% Na Spr 16 Gm Btl (*Bkc) NASAL 1 spray Q12HR JESSICA Administration Folic Acid 1 mg 05/30/24 09:00 05/31/24 09:31 Folic Acid 1 Mg Tablet PO 1 mg DAILY JESSICA Administration Furosemide 40 mg 05/29/24 09:00 05/31/24 09:31 Furosemide 40 Mg Tablet PO 40 mg BID JESSICA Administration Guaifenesin 1,200 mg 05/29/24 21:00 05/31/24 09:31 Guaifenesin 12 Hr 600 Mg Tabcr PO 1,200 mg Q12HR JESSICA Administration Heparin Sodium (Beef Lung) 50 units 05/28/24 09:00 05/31/24 09:29 Heparin Flush 50 Units/5 Ml Syringe IV PUSH 50 units QAM JESSICA Administration Heparin Sodium (Beef Lung) 50 units 05/28/24 07:25 Heparin Flush 50 Units/5 Ml Syringe IV PUSH PRN PRN after intermittent infusion Heparin Sodium (Beef Lung) 50 units 05/28/24 07:25 Heparin Flush 50 Units/5 Ml Syringe IV PUSH PRN PRN after blood draws Heparin Sodium (Porcine) 500 units 05/28/24 07:25 Heparin Sodium Lock Flush 500 Units/5 Ml Syringe IV PUSH PRN PRN see comments below Vancomycin HCl 1,500 mg in 500 mls @ 250 mls/hr 05/31/24 04:00 05/31/24 05:26 Vancomycin 1,500 Mg/Ns 500 Ml IVPB Infused Q18H JESSICA Infusion Levofloxacin 750 mg 05/31/24 09:00 05/31/24 09:30 Levofloxacin 750 Mg Tablet PO 750 mg DAILY JESSICA Administration Lorazepam 1 mg 05/29/24 10:09 05/31/24 12:09 Lorazepam (*Crx) 1 Mg Tablet PO 1 mg Q8H PRN Administration Anxiety Metoprolol Tartrate 25 mg 05/29/24 17:00 05/31/24 09:31 Metoprolol Tartrate 25 Mg Tablet PO 25 mg BID JESSICA Administration Ondansetron HCl 4 mg 05/28/24 07:51 05/30/24 08:35 Ondansetron Inj 4 Mg/2 Ml Vial IV PUSH 4 mg Q4H PRN Administration Nausea Oxycodone HCl 5 mg 05/28/24 14:20 05/31/24 03:27 Oxycodone Hcl (*Crx) 5 Mg Tab Ir PO 5 mg Q6H PRN Administration Breakthrough Pain Oxycodone HCl 40 mg 05/29/24 21:00 05/31/24 09:31 Oxycodone Hcl (*Crx) 40 Mg Tab Sr 12hr PO 40 mg Q12H JESSICA Administration Pantoprazole Sodium 40 mg 05/29/24 21:00 05/31/24 09:31 Pantoprazole 40 Mg Tablet PO 40 mg Q12HR JESSICA Administration Pregabalin 225 mg 05/29/24 17:00 05/31/24 09:30 Pregabalin (*Crx) 75 Mg Capsule PO 225 mg BID JESSICA Administration Rivaroxaban 20 mg 05/28/24 17:00 05/30/24 16:39 Rivaroxaban 20 Mg Tablet PO 20 mg DAILY@1700 JESSICA Administration Senna/Docusate Sodium 1 tab 05/30/24 12:23 05/30/24 14:00 Senna/Docusate Sodium Tablet PO 1 tab DAILY PRN Administration constipation Sodium Chloride 10 ml 05/28/24 14:00 05/31/24 12:10 Central Line Flush IV PUSH 10 ml Q8HR JESSICA Administration Sodium Chloride 1 spray 05/28/24 10:14 05/30/24 20:05 Saline 0.65% Demetris Soln 44 Ml Btl NASAL 1 spray Q2H PRN Administration Congestion Tamsulosin HCl 0.4 mg 05/30/24 09:00 05/31/24 09:30 Tamsulosin Hcl 0.4 Mg Capsule PO 0.4 mg DAILY JESSICA Administration Radiology Results: ITS Impressions Chest X-Ray 05/28/24 06:22 Impression: Mild interval improvement in right upper lobe consolidation, compatible mildly improving pneumonia. New left lower lobe airspace disease, which could reflect additional pneumonia. Small right pleural effusion. Labs Labs: Laboratory Results - last 24 hr 05/30/24 05/31/24 20:14 05:44 WBC 2.5 L RBC 2.73 L Hgb 7.4 L Hct 23.9 L MCV 87.5 MCH 27.1 MCHC 31.0 L RDW 21.7 H Plt Count 81 L MPV 9.9 Immature Gran % (Auto) 1.2 H Neut % (Auto) 50.9 Lymph % (Auto) 29.4 Mason % (Auto) 17.3 H Eos % (Auto) 0.8 Baso % (Auto) 0.4 Lymph # (Auto) 0.73 L Mason # (Auto) 0.4 Eos # (Auto) 0.0 Baso # (Auto) 0.0 Abs Immat Gran (auto) 0.03 Absolute Neuts (auto) 1.3 Absolute Nucleated RBC 0.000 Nucleated RBC % 0.0 % Immature Plt Fraction 5.0 Sodium 137 Potassium 3.4 Chloride 111 H Carbon Dioxide 23 Anion Gap 3 L BUN 12 Creatinine 0.80 Estim Creat Clear Calc 91 Estimated GFR > 60 Glucose 95 Calcium 7.6 L Magnesium 2.1 Iron < 10 L TIBC 325 % Saturation < 3 L Total Bilirubin 0.5 AST 13 L ALT 12 Alkaline Phosphatase 62 Total Protein 5.0 L Albumin 2.8 L Vitamin B12 > 1000.0 H Folate 16.5 Vancomycin Trough 21.6 H
[2024-05-31] MEDS: METOPROLOL TARTRATE 50 MG TAB PO (16:35)
[2024-05-31] MEDS: RIVAROXABAN 20 MG TABLET PO (16:36)
[2024-05-31] MEDS: LORazepam (*CRX) 0.5 MG TABLET PO (20:17)
[2024-06-01] VITALS (19 sets, daily range): BP systolic 95–121; BP diastolic 59–70; PULSE 95–116; RESP 18–20; TEMP 36.4–36.9; O2SAT 96–100
[2024-06-01] MEDS: IPRATROPIUM 0.5 MG/ALBUTEROL SULFATE 2.5 MG AMPUL.NEB 3 ML INHALATION ×4 (02:12→17:57)
[2024-06-01] MEDS: oxyCODONE HCL (*CRX) 5 MG TAB IR PO ×2 (05:50→16:36)
[2024-06-01 05:59] LABS: Basophils Percent Auto 0.5 % (0.2-1.2); Eosinophils Absolute Auto 0.1 K/mm3 (0-0.3); Eosinophils Percent Auto 0.8 % (0-4.4); Hematocrit 25.5 % (42.0-52.0); Hemoglobin 7.8 g/dL (14.0-18.0); Immature Granulocyte Absolute 0.08 K/mm3 (0.00-0.031); Immature Granulocyte Percent A 1.1 % (0-0.5); Immature Platelet Fraction Pct 6.3 % (0.9-11.2); Lymphocytes Absolute Auto 1.41 K/mm3 (0.9-3.2); Lymphocytes Percent Auto 18.9 % (18.3-44.2); Mean Corpuscular HGB Conc 30.6 g/dl (32-36); Mean Corpuscular Hemoglobin 26.6 pg (26-34); Mean Platelet Volume 11.8 fl (7.4-10.4); Monocytes Absolute Auto 0.7 K/mm3 (0.1-0.6); Monocytes Percent Auto 9.1 % (2.6-8.5); Neutrophils Absolute Auto 5.2 K/mm3 (1.3-6.7); Neutrophils Percent Auto 69.6 % (45.5-73.1); Nucleated Red Blood Cells Perc 0.3 % (0.0-0.2); Platelet Count Result 105 k/mm3 (150-375); Red Blood Count 2.93 M/mm3 (4.6-6.20); Red Cell Distribution Width 22.2 % (11.5-14.5); White Blood Count 7.5 K/mm3 (4.5-10.0)
[2024-06-01 06:07] LABS: Alanine Aminotransferase 12 U/L (6-50); Albumin Level 2.9 g/dL (3.5-5.1); Alkaline Phosphatase 65 U/L (38-126); Anion Gap 4 mmol/L (4-12); Aspartate Amino Transferase 13 U/L (17-59); Bilirubin,Total 0.4 mg/dL (0.2-1.3); Blood Urea Nitrogen 13 mg/dL (9-20); Calcium 8.6 mg/dL (8.4-10.2); Carbon Dioxide 25 mmol/L (22-30); Chloride 108 mmol/L (98-107); Estimated CRCL calculation 82 ml/min; Estimated Glomerular Filt Rate > 60; Glucose 101 mg/dL (65-110); Magnesium 1.9 mg/dL (1.6-2.3); Potassium 3.6 mmol/L (3.4-5.0); Sodium 137 mmol/L (137-145)
[2024-06-01 06:36] LABS: Platelet Estimate Slightly Decreased (Adequate)
[2024-06-01 06:37] LABS: Anisocytosis 2+; Hypochromasia 1+; Schistocytes None Seen
[2024-06-01] MEDS: BUDESONIDE RESPULE NEB 0.5 MG/2 ML AMP INHALATION ×2 (07:30→17:57)
[2024-06-01] MEDS: CYANOCOBALAMIN 1,000 MCG TABLET 2000 MCG PO (08:50)
[2024-06-01] MEDS: PREGABALIN (*CRX) 75 MG CAPSULE 225 MG PO ×2 (08:50→16:37)
[2024-06-01] MEDS: FILGRASTIM-SNDZ 480 MCG/0.8 ML SYRINGE SUB-Q (08:50)
[2024-06-01] MEDS: guaiFENesin 12 HR 600 MG TABCR 1200 MG PO ×2 (08:50→21:25)
[2024-06-01] MEDS: levoFLOXacin 750 MG TABLET PO (08:50)
[2024-06-01] MEDS: METOPROLOL TARTRATE 50 MG TAB PO ×2 (08:51→16:37)
[2024-06-01] MEDS: PANTOPRAZOLE 40 MG TABLET PO ×2 (08:51→21:25)
[2024-06-01] MEDS: oxyCODONE HCL (*CRX) 40 MG TAB SR 12HR PO ×2 (08:51→21:25)
[2024-06-01] MEDS: FOLIC ACID 1 MG TABLET PO (08:51)
[2024-06-01] MEDS: CYANOCOBALAMIN 500 MCG TABLET PO (08:51)
[2024-06-01] MEDS: FUROSEMIDE 40 MG TABLET PO ×2 (08:51→16:37)
[2024-06-01] MEDS: LORazepam (*CRX) 0.5 MG TABLET PO ×2 (08:51→16:36)
[2024-06-01] MEDS: FLUTICASONE PROPIONATE 0.05% NA SPR 16 GM BTL (*BKC) 1 SPRAY NASAL ×2 (08:51→21:26)
[2024-06-01] MEDS: TAMSULOSIN HCL 0.4 MG CAPSULE PO (08:51)
[2024-06-01] MEDS: CENTRAL LINE FLUSH 10 ML IV PUSH ×2 (09:53→13:10)
[2024-06-01] MEDS: FERROUS SULFATE 325 MG TABLET DR PO (11:28)
--- NOTE | 2024-06-01 14:30 | P.PNIM_ITS ---
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 Workup suggestive of pneumonia along with AFib with RVR. Chest x-ray showed mild interval improvement in right upper lobe consolidation compatible with mildly improving pneumonia. New left lower lobe airspace disease which could reflect additional pneumonia. Small right pleural effusion. Patient was noted to have pancytopenia due to ongoing chemotherapy. Oncology consultation has been obtained. Neutropenia worsen. Started on Neupogen. Neutropenia has resolved. Will stop Neupogen Acute on chronic hypoxic respiratory failure back to his baseline respiratory status requires 3.5 L via nasal cannula Pneumonia treated with levofloxacin and vancomycin Blood culture positive for Gram-positive cocci in clusters identified as Staph hominis and epidermidis. Currently on vancomycin. Due to neutropenia post chemo will continue IV vancomycin for at least 5 days AFib with RVR much improved with metoprolol. Continue on Xarelto. Echo EF 55- 60% left ventricular wall motion shows hypokinesis of the inferior septal segment 80 sent out and hyperechoic suggestive of prior infarct. Other christopher are hyperdynamic. History of ablation in the past. Metoprolol dose increased to 50 b.i.d. Stage IV non-small cell lung cancer metastasis to bone left chest port in place. Status post radiation to right upper lung currently on chemotherapy COPD Chronic respiratory failure on home oxygen History of atrial myxoma surgically removed in 2017 History of DVT on Xarelto Code status full code Subjective Date/time seen: 06/01/24 14:30 Interval history: No overnight events. Feeling better. Still has some cough. Shortness of breath with exertion. Remains afebrile. Review of Systems Review of Systems: All systems reviewed & are unremarkable except as noted in HPI and below Exam Narrative: General: alert and oriented x3 not in acute distress Eyes: EOMI, PERRLA ENNT:External ears normal, Neck is supple, no masses, Respiratory systems: Decreased breath sounds bilaterally no respiratory distress Cardiovascular:S1, S2, AFib mildly tachycardic Gastrointestinal: soft, non-tender, and non-distended abdomen with no masses;BS present Skin: no rash, lesions, ulcerations, subcutaneous nodules or induration Musculoskeletal: no abnormality and no tenderness, normal ROM Neurologic: Alert , non focal Mental Status Exam: normal affect Objective Data Vital Signs Vital Signs: Vital Signs - 24 hr 05/31/24 15:00 05/31/24 15:10 05/31/24 15:14 Temperature 98.1 F Pulse Rate 125 H 121 H 127 H Respiratory Rate 22 H 19 20 Blood Pressure 114/64 Pulse Oximetry 98 Oxygen Delivery Oxygen Flow Rate Fraction of Inspired Oxygen 05/31/24 16:00 05/31/24 16:35 05/31/24 20:00 Temperature Pulse Rate 124 H 124 H Respiratory Rate Blood Pressure Pulse Oximetry 100 Oxygen Delivery Nasal Cannula Oxygen Flow Rate 3 Fraction of Inspired Oxygen 05/31/24 20:00 05/31/24 20:20 05/31/24 20:28 Temperature 98.4 F Pulse Rate 114 H 114 H Respiratory Rate 20 Blood Pressure 104/65 Pulse Oximetry 97 99 Oxygen Delivery Nasal Cannula Oxygen Flow Rate 3 Fraction of Inspired Oxygen 32 05/31/24 20:29 05/31/24 20:46 06/01/24 00:00 Temperature Pulse Rate 116 H 125 H 107 H Respiratory Rate 20 20 Blood Pressure Pulse Oximetry Oxygen Delivery Oxygen Flow Rate Fraction of Inspired Oxygen 06/01/24 02:14 06/01/24 04:00 06/01/24 06:00 Temperature 98.1 F Pulse Rate 114 H 103 H 106 H Respiratory Rate 20 20 Blood Pressure 95/60 L Pulse Oximetry 97 Oxygen Delivery Oxygen Flow Rate Fraction of Inspired Oxygen 06/01/24 07:30 06/01/24 07:30 06/01/24 07:45 Temperature Pulse Rate 114 H 100 Respiratory Rate 20 20 Blood Pressure Pulse Oximetry 98 Oxygen Delivery Nasal Cannula Oxygen Flow Rate 3 Fraction of Inspired Oxygen 32 06/01/24 07:58 06/01/24 08:00 06/01/24 08:51 Temperature Pulse Rate 105 H 112 H Respiratory Rate Blood Pressure Pulse Oximetry 100 Oxygen Delivery Nasal Cannula Oxygen Flow Rate 3 Fraction of Inspired Oxygen 06/01/24 12:00 06/01/24 13:23 06/01/24 13:23 Temperature Pulse Rate 99 109 H Respiratory Rate 20 Blood Pressure Pulse Oximetry 97 Oxygen Delivery Nasal Cannula Oxygen Flow Rate 3 Fraction of Inspired Oxygen 32 06/01/24 13:34 06/01/24 13:52 Temperature 98.4 F Pulse Rate 105 H 113 H Respiratory Rate 20 19 Blood Pressure 111/70 Pulse Oximetry 98 Oxygen Delivery Oxygen Flow Rate Fraction of Inspired Oxygen Intake/Output Intake/Output: Intake & Output 05/29/24 05/30/24 05/31/24 06/01/24 23:59 23:59 23:59 23:59 Intake Total 2356.3 1640 2230 1300 Balance 2356.3 1640 2230 1300 Meds/Results Medications: Active Medications Generic Name Dose Route Start Last Admin Trade Name Freq PRN Reason Stop Dose Admin Acetaminophen 650 mg 05/28/24 07:51 05/30/24 20:19 Acetaminophen 325 Mg Tablet PO 650 mg Q4H PRN Administration Mild Pain (1-3) or Fever Albuterol 2.5 mg 05/28/24 18:08 Albuterol Sulfate Neb 2.5 Mg/3 Ml Inh INHALATION Q4HRT PRN Shortness Of Breath Albuterol/Ipratropium 3 ml 05/28/24 14:00 06/01/24 13:23 Ipratropium 0.5 Mg/Albuterol Sulfate 2.5 Mg Ampul.Neb 3 Ml INHALATION 3 ml Q6HRT JESSICA Administration Budesonide 0.5 mg 05/28/24 20:00 06/01/24 07:30 Budesonide Respule Neb 0.5 Mg/2 Ml Amp INHALATION 0.5 mg Q12HRT JESSICA Administration Lidocaine HCl 30 ml/ Al Hydrox 0 ml 05/29/24 10:08 05/31/24 03:31 /Mg Hydrox/Simethicone 30 ml/ PO 30 ml Diphenhydramine HCl 75 mg Q4HWA PRN Administration mouth soreness Cyanocobalamin 2,000 mcg 05/30/24 09:00 06/01/24 08:50 Cyanocobalamin 1,000 Mcg Tablet PO 2,000 mcg QAM JESSICA Administration Cyanocobalamin 500 mcg 05/30/24 09:00 06/01/24 08:51 Cyanocobalamin 500 Mcg Tablet PO 500 mcg QAM JESSICA Administration Ergocalciferol 50,000 units 06/02/24 09:00 Ergocalciferol 50,000 Units Capsule PO WEEKLY JESSICA Ferrous Sulfate 325 mg 05/31/24 12:00 06/01/24 11:28 Ferrous Sulfate [address] PO 325 mg DAILY@1200 JESSICA Administration Fluticasone Propionate 1 spray 05/29/24 10:30 06/01/24 08:51 Fluticasone Propionate 0.05% Na Spr 16 Gm Btl (*Bkc) NASAL 1 spray Q12HR JESSICA Administration Folic Acid 1 mg 05/30/24 09:00 06/01/24 08:51 Folic Acid 1 Mg Tablet PO 1 mg DAILY JESSICA Administration Furosemide 40 mg 05/29/24 09:00 06/01/24 08:51 Furosemide 40 Mg Tablet PO 40 mg BID JESSICA Administration Guaifenesin 1,200 mg 05/29/24 21:00 06/01/24 08:50 Guaifenesin 12 Hr 600 Mg Tabcr PO 1,200 mg Q12HR JESSICA Administration Heparin Sodium (Beef Lung) 50 units 05/28/24 09:00 06/01/24 08:51 Heparin Flush 50 Units/5 Ml Syringe IV PUSH 50 units QAM JESSICA Administration Heparin Sodium (Beef Lung) 50 units 05/28/24 07:25 Heparin Flush 50 Units/5 Ml Syringe IV PUSH PRN PRN after intermittent infusion Heparin Sodium (Beef Lung) 50 units 05/28/24 07:25 Heparin Flush 50 Units/5 Ml Syringe IV PUSH PRN PRN after blood draws Heparin Sodium (Porcine) 500 units 05/28/24 07:25 Heparin Sodium Lock Flush 500 Units/5 Ml Syringe IV PUSH PRN PRN see comments below Vancomycin HCl 1,500 mg in 500 mls @ 250 mls/hr 05/31/24 04:00 05/31/24 22:17 Vancomycin 1,500 Mg/Ns 500 Ml IVPB Infused Q18H JESSICA Infusion Levofloxacin 750 mg 05/31/24 09:00 06/01/24 08:50 Levofloxacin 750 Mg Tablet PO 750 mg DAILY JESSICA Administration Lorazepam 0.5 mg 05/31/24 13:03 06/01/24 08:51 Lorazepam (*Crx) 0.5 Mg Tablet PO 0.5 mg Q6H PRN Administration Anxiety Metoprolol Tartrate 50 mg 05/31/24 17:00 06/01/24 08:51 Metoprolol Tartrate 50 Mg Tab PO 50 mg BID JESSICA Administration Ondansetron HCl 4 mg 05/28/24 07:51 05/30/24 08:35 Ondansetron Inj 4 Mg/2 Ml Vial IV PUSH 4 mg Q4H PRN Administration Nausea Oxycodone HCl 5 mg 05/28/24 14:20 06/01/24 05:50 Oxycodone Hcl (*Crx) 5 Mg Tab Ir PO 5 mg Q6H PRN Administration Breakthrough Pain Oxycodone HCl 40 mg 05/29/24 21:00 06/01/24 08:51 Oxycodone Hcl (*Crx) 40 Mg Tab Sr 12hr PO 40 mg Q12H JESSICA Administration Pantoprazole Sodium 40 mg 05/29/24 21:00 06/01/24 08:51 Pantoprazole 40 Mg Tablet PO 40 mg Q12HR JESSICA Administration Pregabalin 225 mg 05/29/24 17:00 06/01/24 08:50 Pregabalin (*Crx) 75 Mg Capsule PO 225 mg BID JESSICA Administration Rivaroxaban 20 mg 05/28/24 17:00 05/31/24 16:36 Rivaroxaban 20 Mg Tablet PO 20 mg DAILY@1700 JESSICA Administration Senna/Docusate Sodium 1 tab 05/30/24 12:23 05/30/24 14:00 Senna/Docusate Sodium Tablet PO 1 tab DAILY PRN Administration constipation Sodium Chloride 10 ml 05/28/24 14:00 06/01/24 13:10 Central Line Flush IV PUSH 10 ml Q8HR JESSICA Administration Sodium Chloride 1 spray 05/28/24 10:14 05/30/24 20:05 Saline 0.65% Demetris Soln 44 Ml Btl NASAL 1 spray Q2H PRN Administration Congestion Tamsulosin HCl 0.4 mg 05/30/24 09:00 06/01/24 08:51 Tamsulosin Hcl 0.4 Mg Capsule PO 0.4 mg DAILY JESSICA Administration Radiology Results: ITS Impressions Chest X-Ray 05/28/24 06:22 Impression: Mild interval improvement in right upper lobe consolidation, compatible mildly improving pneumonia. New left lower lobe airspace disease, which could reflect additional pneumonia. Small right pleural effusion. Labs Labs: Laboratory Results - last 24 hr 06/01/24 05:49 WBC 7.5 RBC 2.93 L Hgb 7.8 L Hct 25.5 L MCV 87.0 MCH 26.6 MCHC 30.6 L RDW 22.2 H Plt Count 105 L MPV 11.8 H Immature Gran % (Auto) 1.1 H Neut % (Auto) 69.6 Lymph % (Auto) 18.9 [place] % (Auto) 9.1 H Eos % (Auto) 0.8 Baso % (Auto) 0.5 Lymph # (Auto) 1.41 [place] # (Auto) 0.7 H Eos # (Auto) 0.1 Baso # (Auto) 0.0 Abs Immat Gran (auto) 0.08 H Absolute Neuts (auto) 5.2 Absolute Nucleated RBC 0.020 H Nucleated RBC % 0.3 H Platelet Estimate Slightly decreased % Immature Plt Fraction 6.3 Hypochromasia 1+ Anisocytosis 2+ Schistocytes None seen Sodium 137 Potassium 3.6 Chloride 108 H Carbon Dioxide 25 Anion Gap 4 BUN 13 Creatinine 0.90 Estim Creat Clear Calc 82 Estimated GFR > 60 Glucose 101 Calcium 8.6 Magnesium 1.9 Total Bilirubin 0.4 AST 13 L ALT 12 Alkaline Phosphatase 65 Total Protein 6.0 L Albumin 2.9 L
[2024-06-01 15:17] LABS: Vancomycin Trough 11.4 ug/mL (10.0-20.0)
[2024-06-01] MEDS: VANCOMYCIN 1,250 MG/NS 250 ML 1,250 MG/250 ML BAG 166.67 MG IVPB (16:34)
[2024-06-01] MEDS: RIVAROXABAN 20 MG TABLET PO (16:37)
[2024-06-02] VITALS (18 sets, daily range): BP systolic 99–125; BP diastolic 47–79; PULSE 89–112; RESP 16–20; TEMP 36.3–36.9; O2SAT 93–98
--- NOTE | 2024-06-02 05:47 | PCRCNOTE ---
Window of time for administration has passed. See next scheduled administration.
[2024-06-02] MEDS: LORazepam (*CRX) 0.5 MG TABLET PO ×2 (06:50→16:16)
[2024-06-02] MEDS: VANCOMYCIN 1,250 MG/NS 250 ML 1,250 MG/250 ML BAG 166.67 MG IVPB (06:50)
[2024-06-02 07:05] LABS: Basophils Absolute Auto 0.1 K/mm3 (0.0-0.1); Basophils Percent Auto 0.5 % (0.2-1.2); Eosinophils Absolute Auto 0.2 K/mm3 (0-0.3); Hematocrit 27.4 % (42.0-52.0); Hemoglobin 8.4 g/dL (14.0-18.0); Immature Granulocyte Absolute 0.11 K/mm3 (0.00-0.031); Immature Granulocyte Percent A 0.7 % (0-0.5); Lymphocytes Absolute Auto 2.12 K/mm3 (0.9-3.2); Lymphocytes Percent Auto 12.7 % (18.3-44.2); Mean Corpuscular HGB Conc 30.7 g/dl (32-36); Mean Corpuscular Hemoglobin 26.8 pg (26-34); Mean Corpuscular Volume 87.5 fl (80-100); Mean Platelet Volume 11.2 fl (7.4-10.4); Monocytes Absolute Auto 0.9 K/mm3 (0.1-0.6); Monocytes Percent Auto 5.4 % (2.6-8.5); Neutrophils Absolute Auto 13.4 K/mm3 (1.3-6.7); Neutrophils Percent Auto 79.7 % (45.5-73.1); Nucleated Red Blood Cells Perc 0.1 % (0.0-0.2); Platelet Count Result 127 k/mm3 (150-375); Red Blood Count 3.13 M/mm3 (4.6-6.20); White Blood Count 16.8 K/mm3 (4.5-10.0)
[2024-06-02 07:19] LABS: Alanine Aminotransferase 12 U/L (6-50); Albumin Level 2.9 g/dL (3.5-5.1); Alkaline Phosphatase 96 U/L (38-126); Anion Gap 2 mmol/L (4-12); Aspartate Amino Transferase 17 U/L (17-59); Bilirubin,Total 0.5 mg/dL (0.2-1.3); Blood Urea Nitrogen 14 mg/dL (9-20); Calcium 8.5 mg/dL (8.4-10.2); Carbon Dioxide 25 mmol/L (22-30); Chloride 108 mmol/L (98-107); Estimated CRCL calculation 91 ml/min; Estimated Glomerular Filt Rate > 60; Glucose 97 mg/dL (65-110); Magnesium 1.8 mg/dL (1.6-2.3); Potassium 3.7 mmol/L (3.4-5.0); Sodium 135 mmol/L (137-145)
[2024-06-02] MEDS: IPRATROPIUM 0.5 MG/ALBUTEROL SULFATE 2.5 MG AMPUL.NEB 3 ML INHALATION ×3 (07:28→21:11)
[2024-06-02] MEDS: BUDESONIDE RESPULE NEB 0.5 MG/2 ML AMP INHALATION ×2 (07:28→21:11)
[2024-06-02 07:55] LABS: Anisocytosis 1+; Platelet Estimate Slightly Decreased (Adequate)
[2024-06-02 07:56] LABS: Hypochromasia 1+; Schistocytes None Seen
[2024-06-02] MEDS: ERGOCALCIFEROL 50,000 UNITS CAPSULE 50000 UNITS PO (08:03)
[2024-06-02] MEDS: CYANOCOBALAMIN 500 MCG TABLET PO (08:03)
[2024-06-02] MEDS: guaiFENesin 12 HR 600 MG TABCR 1200 MG PO ×2 (08:04→20:27)
[2024-06-02] MEDS: FUROSEMIDE 40 MG TABLET PO ×2 (08:04→16:13)
[2024-06-02] MEDS: FOLIC ACID 1 MG TABLET PO (08:04)
[2024-06-02] MEDS: FLUTICASONE PROPIONATE 0.05% NA SPR 16 GM BTL (*BKC) 1 SPRAY NASAL ×2 (08:04→20:28)
[2024-06-02] MEDS: CYANOCOBALAMIN 1,000 MCG TABLET 2000 MCG PO (08:04)
[2024-06-02] MEDS: METOPROLOL TARTRATE 50 MG TAB PO ×2 (08:05→16:13)
[2024-06-02] MEDS: oxyCODONE HCL (*CRX) 40 MG TAB SR 12HR PO ×2 (08:05→20:28)
[2024-06-02] MEDS: levoFLOXacin 750 MG TABLET PO (08:05)
[2024-06-02] MEDS: PANTOPRAZOLE 40 MG TABLET PO ×2 (08:05→20:28)
[2024-06-02] MEDS: TAMSULOSIN HCL 0.4 MG CAPSULE PO (08:05)
[2024-06-02] MEDS: PREGABALIN (*CRX) 75 MG CAPSULE 225 MG PO ×2 (08:05→16:13)
[2024-06-02] MEDS: FERROUS SULFATE 325 MG TABLET DR PO (11:32)
--- NOTE | 2024-06-02 11:50 | P.PNIM_ITS ---
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 Workup suggestive of pneumonia along with AFib with RVR. Chest x-ray showed mild interval improvement in right upper lobe consolidation compatible with mildly improving pneumonia. New left lower lobe airspace disease which could reflect additional pneumonia. Small right pleural effusion. Patient was noted to have pancytopenia due to ongoing chemotherapy. Oncology consultation has been obtained. Neutropenia worsen. Started on Neupogen. Neutropenia has resolved. Neupogen stopped Acute on chronic hypoxic respiratory failure back to his baseline respiratory status requires 3.5 L via nasal cannula Pneumonia treated with levofloxacin and vancomycin. Will recheck chest 8 two views Blood culture positive for Gram-positive cocci in clusters identified as Staph hominis and epidermidis. Currently on vancomycin. Due to neutropenia post chemo will continue IV vancomycin for at least 5 days AFib with RVR much improved with metoprolol. Continue on Xarelto. Echo EF 55- 60% left ventricular wall motion shows hypokinesis of the inferior septal segment 80 sent out and hyperechoic suggestive of prior infarct. Other christopher are hyperdynamic. History of ablation in the past. Metoprolol dose increased to 50 b.i.d. Stage IV non-small cell lung cancer metastasis to bone left chest port in place. Status post radiation to right upper lung currently on chemotherapy COPD Chronic respiratory failure on home oxygen History of atrial myxoma surgically removed in 2017 History of DVT on Xarelto Code status full code Subjective Date/time seen: 06/02/24 11:50 Interval history: Still bit tachycardic with exertion. Shortness of breath on exertion. Some cough still persist. Remains afebrile. Review of Systems Review of Systems: All systems reviewed & are unremarkable except as noted in HPI and below Exam Narrative: General: alert and oriented x3 not in acute distress Eyes: EOMI, PERRLA ENNT:External ears normal, Neck is supple, no masses, Respiratory systems: Decreased breath sounds bilaterally no respiratory distress Cardiovascular:S1, S2, AFib mildly tachycardic on exertion Gastrointestinal: soft, non-tender, and non-distended abdomen with no masses;BS present Skin: no rash, lesions, ulcerations, subcutaneous nodules or induration Musculoskeletal: no abnormality and no tenderness, normal ROM Neurologic: Alert , non focal Mental Status Exam: normal affect Objective Data Vital Signs Vital Signs: Vital Signs - 24 hr 06/01/24 12:00 06/01/24 13:23 06/01/24 13:23 Temperature Pulse Rate 99 109 H Respiratory Rate 20 Blood Pressure Pulse Oximetry 97 Oxygen Delivery Nasal Cannula Oxygen Flow Rate 3 Fraction of Inspired Oxygen 32 06/01/24 13:34 06/01/24 13:52 06/01/24 16:00 Temperature 98.4 F Pulse Rate 105 H 113 H 95 Respiratory Rate 20 19 Blood Pressure 111/70 Pulse Oximetry 98 Oxygen Delivery Oxygen Flow Rate Fraction of Inspired Oxygen 06/01/24 16:37 06/01/24 17:58 06/01/24 17:58 Temperature Pulse Rate 102 H 116 H Respiratory Rate 20 Blood Pressure Pulse Oximetry 96 Oxygen Delivery Nasal Cannula Oxygen Flow Rate 3 Fraction of Inspired Oxygen 32 06/01/24 18:12 06/01/24 20:00 06/01/24 20:00 Temperature Pulse Rate 109 H 95 Respiratory Rate 20 Blood Pressure Pulse Oximetry 100 Oxygen Delivery Nasal Cannula Oxygen Flow Rate 3 Fraction of Inspired Oxygen 06/01/24 21:23 06/02/24 00:00 06/02/24 04:00 Temperature 97.6 F Pulse Rate 97 110 H 100 Respiratory Rate 18 Blood Pressure 121/59 L Pulse Oximetry 98 Oxygen Delivery Oxygen Flow Rate Fraction of Inspired Oxygen 06/02/24 05:34 06/02/24 07:25 06/02/24 07:25 Temperature 98.1 F Pulse Rate 90 89 89 Respiratory Rate 18 20 20 Blood Pressure 107/79 Pulse Oximetry 93 96 Oxygen Delivery Nasal Cannula Oxygen Flow Rate 3.5 Fraction of Inspired Oxygen 06/02/24 07:35 06/02/24 08:00 06/02/24 08:00 Temperature Pulse Rate 96 108 H Respiratory Rate 20 Blood Pressure Pulse Oximetry 95 Oxygen Delivery Nasal Cannula Oxygen Flow Rate 3 Fraction of Inspired Oxygen 06/02/24 08:05 Temperature Pulse Rate 112 H Respiratory Rate Blood Pressure Pulse Oximetry Oxygen Delivery Oxygen Flow Rate Fraction of Inspired Oxygen Intake/Output Intake/Output: Intake & Output 05/30/24 05/31/24 06/01/24 06/02/24 23:59 23:59 23:59 23:59 Intake Total 1640 2229 1989 480 Balance 1640 2230 1989 Meds/Results Medications: Active Medications Generic Name Dose Route Start Last Admin Trade Name Freq PRN Reason Stop Dose Admin Acetaminophen 650 mg 05/28/24 07:51 05/30/24 20:19 Acetaminophen 325 Mg Tablet PO 650 mg Q4H PRN Administration Mild Pain (1-3) or Fever Albuterol 2.5 mg 05/28/24 18:08 Albuterol Sulfate Neb 2.5 Mg/3 Ml Inh INHALATION Q4HRT PRN Shortness Of Breath Albuterol/Ipratropium 3 ml 05/28/24 14:00 06/02/24 07:28 Ipratropium 0.5 Mg/Albuterol Sulfate 2.5 Mg Ampul.Neb 3 Ml INHALATION 3 ml Q6HRT JESSICA Administration Budesonide 0.5 mg 05/28/24 20:00 06/02/24 07:28 Budesonide Respule Neb 0.5 Mg/2 Ml Amp INHALATION 0.5 mg Q12HRT JESSICA Administration Lidocaine HCl 30 ml/ Al Hydrox 0 ml 05/29/24 10:08 05/31/24 03:31 /Mg Hydrox/Simethicone 30 ml/ PO 30 ml Diphenhydramine HCl 75 mg Q4HWA PRN Administration mouth soreness Cyanocobalamin 2,000 mcg 05/30/24 09:00 06/02/24 08:04 Cyanocobalamin 1,000 Mcg Tablet PO 2,000 mcg QAM JESSICA Administration Cyanocobalamin 500 mcg 05/30/24 09:00 06/02/24 08:03 Cyanocobalamin 500 Mcg Tablet PO 500 mcg QAM JESSICA Administration Ergocalciferol 50,000 units 06/02/24 09:00 06/02/24 08:03 Ergocalciferol 50,000 Units Capsule PO 50,000 units WEEKLY JESSICA Administration Ferrous Sulfate 325 mg 05/31/24 12:00 06/02/24 11:32 Ferrous Sulfate [address] PO 325 mg DAILY@1200 JESSICA Administration Fluticasone Propionate 1 spray 05/29/24 10:30 06/02/24 08:04 Fluticasone Propionate 0.05% Na Spr 16 Gm Btl (*Bkc) NASAL 1 spray Q12HR JESSICA Administration Folic Acid 1 mg 05/30/24 09:00 06/02/24 08:04 Folic Acid 1 Mg Tablet PO 1 mg DAILY JESSICA Administration Furosemide 40 mg 05/29/24 09:00 06/02/24 08:04 Furosemide 40 Mg Tablet PO 40 mg BID JESSICA Administration Guaifenesin 1,200 mg 05/29/24 21:00 06/02/24 08:04 Guaifenesin 12 Hr 600 Mg Tabcr PO 1,200 mg Q12HR JESSICA Administration Heparin Sodium (Beef Lung) 50 units 05/28/24 09:00 06/02/24 08:06 Heparin Flush 50 Units/5 Ml Syringe IV PUSH 50 units QAM JESSICA Administration Heparin Sodium (Beef Lung) 50 units 05/28/24 07:25 Heparin Flush 50 Units/5 Ml Syringe IV PUSH PRN PRN after intermittent infusion Heparin Sodium (Beef Lung) 50 units 05/28/24 07:25 Heparin Flush 50 Units/5 Ml Syringe IV PUSH PRN PRN after blood draws Heparin Sodium (Porcine) 500 units 05/28/24 07:25 Heparin Sodium Lock Flush 500 Units/5 Ml Syringe IV PUSH PRN PRN see comments below Vancomycin HCl 1,250 mg in 250 mls @ 166.667 mls/hr 06/01/24 17:00 06/02/24 06:50 Vancomycin 1,250 Mg/Ns 250 Ml IVPB 166.67 mls/hr Q12H JESSICA Administration Levofloxacin 750 mg 05/31/24 09:00 06/02/24 08:05 Levofloxacin 750 Mg Tablet PO 750 mg DAILY JESSICA Administration Lorazepam 0.5 mg 05/31/24 13:03 06/02/24 06:50 Lorazepam (*Crx) 0.5 Mg Tablet PO 0.5 mg Q6H PRN Administration Anxiety Metoprolol Tartrate 50 mg 05/31/24 17:00 06/02/24 08:05 Metoprolol Tartrate 50 Mg Tab PO 50 mg BID JESSICA Administration Ondansetron HCl 4 mg 05/28/24 07:51 05/30/24 08:35 Ondansetron Inj 4 Mg/2 Ml Vial IV PUSH 4 mg Q4H PRN Administration Nausea Oxycodone HCl 5 mg 05/28/24 14:20 06/01/24 16:36 Oxycodone Hcl (*Crx) 5 Mg Tab Ir PO 5 mg Q6H PRN Administration Breakthrough Pain Oxycodone HCl 40 mg 05/29/24 21:00 06/02/24 08:05 Oxycodone Hcl (*Crx) 40 Mg Tab Sr 12hr PO 40 mg Q12H JESSICA Administration Pantoprazole Sodium 40 mg 05/29/24 21:00 06/02/24 08:05 Pantoprazole 40 Mg Tablet PO 40 mg Q12HR JESSICA Administration Pregabalin 225 mg 05/29/24 17:00 06/02/24 08:05 Pregabalin (*Crx) 75 Mg Capsule PO 225 mg BID JESSICA Administration Rivaroxaban 20 mg 05/28/24 17:00 06/01/24 16:37 Rivaroxaban 20 Mg Tablet PO 20 mg DAILY@1700 JESSICA Administration Senna/Docusate Sodium 1 tab 05/30/24 12:23 05/30/24 14:00 Senna/Docusate Sodium Tablet PO 1 tab DAILY PRN Administration constipation Sodium Chloride 10 ml 05/28/24 14:00 06/02/24 11:32 Central Line Flush IV PUSH Not Given Q8HR JESSICA Sodium Chloride 1 spray 05/28/24 10:14 05/30/24 20:05 Saline 0.65% Demetris Soln 44 Ml Btl NASAL 1 spray Q2H PRN Administration Congestion Tamsulosin HCl 0.4 mg 05/30/24 09:00 06/02/24 08:05 Tamsulosin Hcl 0.4 Mg Capsule PO 0.4 mg DAILY JESSICA Administration Radiology Results: ITS Impressions Chest X-Ray 05/28/24 06:22 Impression: Mild interval improvement in right upper lobe consolidation, compatible mildly improving pneumonia. New left lower lobe airspace disease, which could reflect additional pneumonia. Small right pleural effusion. Labs Labs: Laboratory Results - last 24 hr 06/01/24 06/02/24 14:47 06:56 WBC 16.8 H RBC 3.13 L Hgb 8.4 L Hct 27.4 L MCV 87.5 MCH 26.8 MCHC 30.7 L RDW 22.0 H Plt Count 127 L MPV 11.2 H Immature Gran % (Auto) 0.7 H Neut % (Auto) 79.7 H Lymph % (Auto) 12.7 L [place] % (Auto) 5.4 Eos % (Auto) 1.0 Baso % (Auto) 0.5 Lymph # (Auto) 2.12 [place] # (Auto) 0.9 H Eos # (Auto) 0.2 Baso # (Auto) 0.1 Abs Immat Gran (auto) 0.11 H Absolute Neuts (auto) 13.4 H Absolute Nucleated RBC 0.020 H Nucleated RBC % 0.1 Platelet Estimate Slightly decreased Hypochromasia 1+ Anisocytosis 1+ Schistocytes None seen Sodium 135 L Potassium 3.7 Chloride 108 H Carbon Dioxide 25 Anion Gap 2 L BUN 14 Creatinine 0.80 Estim Creat Clear Calc 91 Estimated GFR > 60 Glucose 97 Calcium 8.5 Magnesium 1.8 Total Bilirubin 0.5 AST 17 ALT 12 Alkaline Phosphatase 96 Total Protein 6.0 L Albumin 2.9 L Vancomycin Trough 11.4
[2024-06-02] MEDS: CENTRAL LINE FLUSH 10 ML IV PUSH ×2 (16:12→20:28)
[2024-06-02] MEDS: RIVAROXABAN 20 MG TABLET PO (16:13)
[2024-06-02] MEDS: LIDOCAINE 2% VISC SOLN 30 ML, ALUMINUM/MAGNESIUM/SIMETH SUSP 30 ML, diphenhydrAMINE HCl... PO (16:14)
[2024-06-02] MEDS: LINEZOLID 600 MG TABLET PO (20:28)
[2024-06-02] MEDS: ACETAMINOPHEN 325 MG TABLET 650 MG PO (20:50)
[2024-06-03] VITALS (21 sets, daily range): BP systolic 107–113; BP diastolic 50–67; PULSE 77–123; RESP 16–18; TEMP 36.1–36.5; O2SAT 95–99
[2024-06-03] MEDS: IPRATROPIUM 0.5 MG/ALBUTEROL SULFATE 2.5 MG AMPUL.NEB 3 ML INHALATION ×4 (02:17→20:10)
[2024-06-03 06:20] LABS: Basophils Percent Auto 0.4 % (0.2-1.2); Eosinophils Absolute Auto 0.1 K/mm3 (0-0.3); Eosinophils Percent Auto 1.2 % (0-4.4); Hematocrit 26.3 % (42.0-52.0); Immature Granulocyte Absolute 0.09 K/mm3 (0.00-0.031); Immature Platelet Fraction Pct 8.2 % (0.9-11.2); Lymphocytes Absolute Auto 1.54 K/mm3 (0.9-3.2); Lymphocytes Percent Auto 16.6 % (18.3-44.2); Mean Corpuscular HGB Conc 30.4 g/dl (32-36); Mean Corpuscular Hemoglobin 26.5 pg (26-34); Mean Corpuscular Volume 87.1 fl (80-100); Mean Platelet Volume 11.2 fl (7.4-10.4); Monocytes Absolute Auto 0.6 K/mm3 (0.1-0.6); Monocytes Percent Auto 6.8 % (2.6-8.5); Neutrophils Absolute Auto 6.9 K/mm3 (1.3-6.7); Platelet Count Result 132 k/mm3 (150-375); Red Blood Count 3.02 M/mm3 (4.6-6.20); Red Cell Distribution Width 21.8 % (11.5-14.5); White Blood Count 9.3 K/mm3 (4.5-10.0)
[2024-06-03 06:27] LABS: Alanine Aminotransferase 11 U/L (6-50); Albumin Level 2.8 g/dL (3.5-5.1); Alkaline Phosphatase 78 U/L (38-126); Anion Gap 2 mmol/L (4-12); Aspartate Amino Transferase 15 U/L (17-59); Bilirubin,Total 0.3 mg/dL (0.2-1.3); Blood Urea Nitrogen 16 mg/dL (9-20); Carbon Dioxide 29 mmol/L (22-30); Chloride 106 mmol/L (98-107); Estimated CRCL calculation 82 ml/min; Estimated Glomerular Filt Rate > 60; Glucose 117 mg/dL (65-110); Magnesium 1.8 mg/dL (1.6-2.3); Potassium 3.6 mmol/L (3.4-5.0); Sodium 137 mmol/L (137-145)
[2024-06-03 06:56] LABS: Anisocytosis 2+; Ovalocytes 1+; Platelet Estimate Decreased (Adequate); Schistocytes None Seen
[2024-06-03] MEDS: BUDESONIDE RESPULE NEB 0.5 MG/2 ML AMP INHALATION ×3 (07:56→20:10)
[2024-06-03] MEDS: FLUTICASONE PROPIONATE 0.05% NA SPR 16 GM BTL (*BKC) 1 SPRAY NASAL (08:30)
[2024-06-03] MEDS: PREGABALIN (*CRX) 75 MG CAPSULE 225 MG PO ×2 (08:31→17:06)
[2024-06-03] MEDS: CYANOCOBALAMIN 1,000 MCG TABLET 2000 MCG PO (08:31)
[2024-06-03] MEDS: oxyCODONE HCL (*CRX) 40 MG TAB SR 12HR PO ×2 (08:31→21:39)
[2024-06-03] MEDS: CENTRAL LINE FLUSH 10 ML IV PUSH ×3 (08:31→21:39)
[2024-06-03] MEDS: TAMSULOSIN HCL 0.4 MG CAPSULE PO (08:31)
[2024-06-03] MEDS: CYANOCOBALAMIN 500 MCG TABLET PO (08:31)
[2024-06-03] MEDS: levoFLOXacin 750 MG TABLET PO (08:32)
[2024-06-03] MEDS: METOPROLOL TARTRATE 50 MG TAB PO ×2 (08:32→17:06)
[2024-06-03] MEDS: LINEZOLID 600 MG TABLET PO ×2 (08:33→21:39)
[2024-06-03] MEDS: FOLIC ACID 1 MG TABLET PO (08:33)
[2024-06-03] MEDS: guaiFENesin 12 HR 600 MG TABCR 1200 MG PO ×2 (08:33→21:39)
[2024-06-03] MEDS: PANTOPRAZOLE 40 MG TABLET PO ×2 (08:33→21:39)
[2024-06-03] MEDS: FUROSEMIDE 40 MG TABLET PO ×2 (08:33→17:06)
[2024-06-03] MEDS: oxyCODONE HCL (*CRX) 5 MG TAB IR PO (08:38)
[2024-06-03] MEDS: LORazepam (*CRX) 0.5 MG TABLET PO ×3 (08:38→21:39)
[2024-06-03] MEDS: FUROSEMIDE INJ 40 MG/4 ML VIAL IV PUSH (12:30)
[2024-06-03] MEDS: FERROUS SULFATE 325 MG TABLET DR PO (12:30)
--- NOTE | 2024-06-03 13:07 | P.PNIM_ITS ---
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 Workup suggestive of pneumonia along with AFib with RVR. Chest x-ray showed mild interval improvement in right upper lobe consolidation compatible with mildly improving pneumonia. New left lower lobe airspace disease which could reflect additional pneumonia. Small right pleural effusion. Patient was noted to have pancytopenia due to ongoing chemotherapy. Oncology consultation has been obtained. Neutropenia worsen. Started on Neupogen. Neutropenia has resolved. Neupogen stopped Acute on chronic hypoxic respiratory failure back to his baseline respiratory status requires 3.5 L via nasal cannula Pneumonia treated with levofloxacin and vancomycin. Chest x-ray two view repeat reviewed.. Levaquin for 10 total days Blood culture positive for Gram-positive cocci in clusters identified as Staph hominis and epidermidis. Currently on vancomycin. Due to neutropenia post chemo will continue IV vancomycin for 7 days. Currently 6/7 AFib with RVR much improved with metoprolol. Continue on Xarelto. Echo EF 55- 60% left ventricular wall motion shows hypokinesis of the inferior septal segment 80 sent out and hyperechoic suggestive of prior infarct. Other christopher are hyperdynamic. History of ablation in the past. Metoprolol dose increased to 50 b.i.d. reasonable heart rate control Stage IV non-small cell lung cancer metastasis to bone left chest port in place. Status post radiation to right upper lung currently on chemotherapy COPD Chronic respiratory failure on home oxygen Congestive heart failure on Lasix 40 b.i.d.. Leg mildly edematous. Will get another dose of Lasix today History of atrial myxoma surgically removed in 2017 History of DVT on Xarelto Code status full code Subjective Date/time seen: 06/03/24 13:07 Interval history: No overnight events the still complains of cough and shortness of breath with exertion. Tachycardia persists with exertion. Review of Systems Review of Systems: All systems reviewed & are unremarkable except as noted in HPI and below Exam Narrative: General: alert and oriented x3 not in acute distress Eyes: EOMI, PERRLA ENNT:External ears normal, Neck is supple, no masses, Respiratory systems: Coarse breath sounds bilaterally no respiratory distress Cardiovascular:S1, S2, AFib mildly tachycardic on exertion Gastrointestinal: soft, non-tender, and non-distended abdomen with no masses;BS present Skin: no rash, lesions, ulcerations, subcutaneous nodules or induration Musculoskeletal: no abnormality and no tenderness, normal ROM Neurologic: Alert , non focal Mental Status Exam: normal affect Objective Data Vital Signs Vital Signs: Vital Signs - 24 hr 06/02/24 13:35 06/02/24 13:45 06/02/24 14:00 Temperature 97.3 F L Pulse Rate 94 95 108 H Respiratory Rate 20 20 16 Blood Pressure 99/59 L Pulse Oximetry 94 Oxygen Delivery Oxygen Flow Rate 06/02/24 16:00 06/02/24 16:11 06/02/24 16:13 Temperature Pulse Rate 106 H 108 H Respiratory Rate Blood Pressure 125/47 L Pulse Oximetry Oxygen Delivery Oxygen Flow Rate 06/02/24 20:00 06/02/24 20:00 06/02/24 21:11 Temperature Pulse Rate 92 Respiratory Rate Blood Pressure Pulse Oximetry 98 95 Oxygen Delivery Nasal Cannula Nasal Cannula Oxygen Flow Rate 3 4 06/02/24 21:11 06/02/24 21:20 06/02/24 21:37 Temperature 98.5 F Pulse Rate 100 97 105 H Respiratory Rate 18 18 18 Blood Pressure 104/65 Pulse Oximetry 95 Oxygen Delivery Oxygen Flow Rate 06/03/24 00:00 06/03/24 02:17 06/03/24 02:23 Temperature Pulse Rate 87 85 77 Respiratory Rate 18 18 Blood Pressure Pulse Oximetry Oxygen Delivery Oxygen Flow Rate 06/03/24 04:00 06/03/24 05:15 06/03/24 08:02 Temperature 97 F L Pulse Rate 87 97 Respiratory Rate 18 Blood Pressure 113/67 Pulse Oximetry 98 95 Oxygen Delivery Nasal Cannula Oxygen Flow Rate 4 06/03/24 08:03 06/03/24 08:32 06/03/24 08:40 Temperature Pulse Rate 83 102 H Respiratory Rate 18 Blood Pressure Pulse Oximetry 97 Oxygen Delivery Nasal Cannula Oxygen Flow Rate 4 Intake/Output Intake/Output: Intake & Output 05/31/24 06/01/24 06/02/24 06/03/24 23:59 23:59 23:59 23:59 Intake Total 0 1989 1510 590 Balance 0 1989 1510 590 Meds/Results Medications: Active Medications Generic Name Dose Route Start Last Admin Trade Name Freq PRN Reason Stop Dose Admin Acetaminophen 650 mg 05/28/24 07:51 06/02/24 20:50 Acetaminophen 325 Mg Tablet PO 650 mg Q4H PRN Administration Mild Pain (1-3) or Fever Albuterol 2.5 mg 05/28/24 18:08 Albuterol Sulfate Neb 2.5 Mg/3 Ml Inh INHALATION Q4HRT PRN Shortness Of Breath Albuterol/Ipratropium 3 ml 05/28/24 14:00 06/03/24 07:56 Ipratropium 0.5 Mg/Albuterol Sulfate 2.5 Mg Ampul.Neb 3 Ml INHALATION 3 ml Q6HRT JESSICA Administration Budesonide 0.5 mg 05/28/24 20:00 06/03/24 07:56 Budesonide Respule Neb 0.5 Mg/2 Ml Amp INHALATION 0.5 mg Q12HRT JESSICA Administration Lidocaine HCl 30 ml/ Al Hydrox 0 ml 05/29/24 10:08 06/02/24 16:14 /Mg Hydrox/Simethicone 30 ml/ PO 5 ml Diphenhydramine HCl 75 mg Q4HWA PRN Administration mouth soreness Cyanocobalamin 2,000 mcg 05/30/24 09:00 06/03/24 08:31 Cyanocobalamin 1,000 Mcg Tablet PO 2,000 mcg QAM JESSICA Administration Cyanocobalamin 500 mcg 05/30/24 09:00 06/03/24 08:31 Cyanocobalamin 500 Mcg Tablet PO 500 mcg QAM JESSICA Administration Ergocalciferol 50,000 units 06/02/24 09:00 06/02/24 08:03 Ergocalciferol 50,000 Units Capsule PO 50,000 units WEEKLY JESSICA Administration Ferrous Sulfate 325 mg 05/31/24 12:00 06/03/24 12:30 Ferrous Sulfate [address] PO 325 mg DAILY@1200 JESSICA Administration Fluticasone Propionate 1 spray 05/29/24 10:30 06/03/24 08:30 Fluticasone Propionate 0.05% Na Spr 16 Gm Btl (*Bkc) NASAL 1 spray Q12HR JESSICA Administration Folic Acid 1 mg 05/30/24 09:00 06/03/24 08:33 Folic Acid 1 Mg Tablet PO 1 mg DAILY JESSICA Administration Furosemide 40 mg 05/29/24 09:00 06/03/24 08:33 Furosemide 40 Mg Tablet PO 40 mg BID JESSICA Administration Guaifenesin 1,200 mg 05/29/24 21:00 06/03/24 08:33 Guaifenesin 12 Hr 600 Mg Tabcr PO 1,200 mg Q12HR JESSICA Administration Heparin Sodium (Beef Lung) 50 units 05/28/24 09:00 06/03/24 08:33 Heparin Flush 50 Units/5 Ml Syringe IV PUSH 50 units QAM JESSICA Administration Heparin Sodium (Beef Lung) 50 units 05/28/24 07:25 Heparin Flush 50 Units/5 Ml Syringe IV PUSH PRN PRN after intermittent infusion Heparin Sodium (Beef Lung) 50 units 05/28/24 07:25 Heparin Flush 50 Units/5 Ml Syringe IV PUSH PRN PRN after blood draws Heparin Sodium (Porcine) 500 units 05/28/24 07:25 Heparin Sodium Lock Flush 500 Units/5 Ml Syringe IV PUSH PRN PRN see comments below Levofloxacin 750 mg 05/31/24 09:00 06/03/24 08:32 Levofloxacin 750 Mg Tablet PO 06/06/24 23:59 750 mg DAILY JESSICA Administration Linezolid 600 mg 06/02/24 20:00 06/03/24 08:33 Linezolid 600 Mg Tablet PO 06/04/24 21:01 600 mg Q12HR JESSICA Administration Lorazepam 0.5 mg 05/31/24 13:03 06/03/24 08:38 Lorazepam (*Crx) 0.5 Mg Tablet PO 0.5 mg Q6H PRN Administration Anxiety Metoprolol Tartrate 50 mg 05/31/24 17:00 06/03/24 08:32 Metoprolol Tartrate 50 Mg Tab PO 50 mg BID JESSICA Administration Ondansetron HCl 4 mg 05/28/24 07:51 05/30/24 08:35 Ondansetron Inj 4 Mg/2 Ml Vial IV PUSH 4 mg Q4H PRN Administration Nausea Oxycodone HCl 5 mg 05/28/24 14:20 06/03/24 08:38 Oxycodone Hcl (*Crx) 5 Mg Tab Ir PO 5 mg Q6H PRN Administration Breakthrough Pain Oxycodone HCl 40 mg 05/29/24 21:00 06/03/24 08:31 Oxycodone Hcl (*Crx) 40 Mg Tab Sr 12hr PO 40 mg Q12H JESSICA Administration Pantoprazole Sodium 40 mg 05/29/24 21:00 06/03/24 08:33 Pantoprazole 40 Mg Tablet PO 40 mg Q12HR JESSICA Administration Pregabalin 225 mg 05/29/24 17:00 06/03/24 08:31 Pregabalin (*Crx) 75 Mg Capsule PO 225 mg BID JESSICA Administration Rivaroxaban 20 mg 05/28/24 17:00 06/02/24 16:13 Rivaroxaban 20 Mg Tablet PO 20 mg DAILY@1700 JESSICA Administration Senna/Docusate Sodium 1 tab 05/30/24 12:23 05/30/24 14:00 Senna/Docusate Sodium Tablet PO 1 tab DAILY PRN Administration constipation Sodium Chloride 10 ml 05/28/24 14:00 06/03/24 08:31 Central Line Flush IV PUSH 10 ml Q8HR JESSICA Administration Sodium Chloride 1 spray 05/28/24 10:14 05/30/24 20:05 Saline 0.65% Demetris Soln 44 Ml Btl NASAL 1 spray Q2H PRN Administration Congestion Sodium Chloride 1 applic 06/02/24 14:47 Sodium Chloride Nasal Gel 14.1 Gm NASAL QID PRN Dry Nasal Passages Tamsulosin HCl 0.4 mg 05/30/24 09:00 06/03/24 08:31 Tamsulosin Hcl 0.4 Mg Capsule PO 0.4 mg DAILY JESSICA Administration Radiology Results: ITS Impressions Chest X-Ray 06/02/24 13:53 IMPRESSION: 1. Increasing opacities in the lingula consistent with progression of pneumonia. 2. Chronic small right pleural effusion and consolidation with volume loss in the suprahilar right upper lobe consistent with treated lung cancer. 3. Sclerosis of a few lower thoracic vertebral bodies consistent with metastatic disease. Labs Labs: Laboratory Results - last 24 hr 06/03/24 06:10 WBC 9.3 RBC 3.02 L Hgb 8.0 L Hct 26.3 L MCV 87.1 MCH 26.5 MCHC 30.4 L RDW 21.8 H Plt Count 132 L MPV 11.2 H Immature Gran % (Auto) 1.0 H Neut % (Auto) 74.0 H Lymph % (Auto) 16.6 L [place] % (Auto) 6.8 Eos % (Auto) 1.2 Baso % (Auto) 0.4 Lymph # (Auto) 1.54 [place] # (Auto) 0.6 Eos # (Auto) 0.1 Baso # (Auto) 0.0 Abs Immat Gran (auto) 0.09 H Absolute Neuts (auto) 6.9 H Absolute Nucleated RBC 0.000 Nucleated RBC % 0.0 Platelet Estimate Decreased % Immature Plt Fraction 8.2 Anisocytosis 2+ Ovalocytes 1+ Schistocytes None seen Sodium 137 Potassium 3.6 Chloride 106 Carbon Dioxide 29 Anion Gap 2 L BUN 16 Creatinine 0.90 Estim Creat Clear Calc 82 Estimated GFR > 60 Glucose 117 H Calcium 8.0 L Magnesium 1.8 Total Bilirubin 0.3 AST 15 L ALT 11 Alkaline Phosphatase 78 Total Protein 6.0 L Albumin 2.8 L
[2024-06-03] MEDS: RIVAROXABAN 20 MG TABLET PO (17:06)
[2024-06-04] VITALS (21 sets, daily range): BP systolic 100–107; BP diastolic 51–70; PULSE 53–117; RESP 16–19; TEMP 36.2–36.8; O2SAT 98–100
[2024-06-04] MEDS: IPRATROPIUM 0.5 MG/ALBUTEROL SULFATE 2.5 MG AMPUL.NEB 3 ML INHALATION ×3 (01:29→14:20)
[2024-06-04] MEDS: CENTRAL LINE FLUSH 10 ML IV PUSH ×3 (04:38→20:07)
[2024-06-04] MEDS: FLUTICASONE PROPIONATE 0.05% NA SPR 16 GM BTL (*BKC) 1 SPRAY NASAL ×3 (04:38→20:10)
[2024-06-04 05:08] LABS: Basophils Percent Auto 0.4 % (0.2-1.2); Eosinophils Absolute Auto 0.1 K/mm3 (0-0.3); Eosinophils Percent Auto 1.1 % (0-4.4); Hematocrit 28.4 % (42.0-52.0); Hemoglobin 8.7 g/dL (14.0-18.0); Immature Granulocyte Percent A 1.4 % (0-0.5); Lymphocytes Absolute Auto 1.89 K/mm3 (0.9-3.2); Lymphocytes Percent Auto 26.6 % (18.3-44.2); Mean Corpuscular HGB Conc 30.6 g/dl (32-36); Mean Corpuscular Hemoglobin 26.6 pg (26-34); Mean Corpuscular Volume 86.9 fl (80-100); Monocytes Absolute Auto 0.7 K/mm3 (0.1-0.6); Monocytes Percent Auto 10.4 % (2.6-8.5); Neutrophils Absolute Auto 4.3 K/mm3 (1.3-6.7); Neutrophils Percent Auto 60.1 % (45.5-73.1); Platelet Count Result 144 k/mm3 (150-375); Red Blood Count 3.27 M/mm3 (4.6-6.20); Red Cell Distribution Width 21.6 % (11.5-14.5); White Blood Count 7.1 K/mm3 (4.5-10.0)
[2024-06-04 05:19] LABS: Alanine Aminotransferase 12 U/L (6-50); Albumin Level 3.1 g/dL (3.5-5.1); Alkaline Phosphatase 91 U/L (38-126); Anion Gap 2 mmol/L (4-12); Aspartate Amino Transferase 20 U/L (17-59); Bilirubin,Total 0.4 mg/dL (0.2-1.3); Blood Urea Nitrogen 15 mg/dL (9-20); Carbon Dioxide 32 mmol/L (22-30); Chloride 101 mmol/L (98-107); Estimated CRCL calculation 74 ml/min; Estimated Glomerular Filt Rate > 60; Glucose 107 mg/dL (65-110); Sodium 135 mmol/L (137-145)
[2024-06-04] MEDS: BUDESONIDE RESPULE NEB 0.5 MG/2 ML AMP INHALATION ×2 (07:59→21:07)
[2024-06-04] MEDS: METOPROLOL TARTRATE 50 MG TAB PO ×2 (08:26→16:07)
[2024-06-04] MEDS: guaiFENesin 12 HR 600 MG TABCR 1200 MG PO ×2 (08:26→20:07)
[2024-06-04] MEDS: levoFLOXacin 750 MG TABLET PO (08:26)
[2024-06-04] MEDS: PREGABALIN (*CRX) 75 MG CAPSULE 225 MG PO ×2 (08:26→16:06)
[2024-06-04] MEDS: FUROSEMIDE 40 MG TABLET PO (08:26)
[2024-06-04] MEDS: CYANOCOBALAMIN 500 MCG TABLET PO (08:26)
[2024-06-04] MEDS: FOLIC ACID 1 MG TABLET PO (08:26)
[2024-06-04] MEDS: LINEZOLID 600 MG TABLET PO ×2 (08:26→20:06)
[2024-06-04] MEDS: CYANOCOBALAMIN 1,000 MCG TABLET 2000 MCG PO (08:27)
[2024-06-04] MEDS: PANTOPRAZOLE 40 MG TABLET PO ×2 (08:27→20:07)
[2024-06-04] MEDS: oxyCODONE HCL (*CRX) 40 MG TAB SR 12HR PO ×2 (08:27→20:07)
[2024-06-04] MEDS: TAMSULOSIN HCL 0.4 MG CAPSULE PO (08:27)
[2024-06-04] MEDS: oxyCODONE HCL (*CRX) 5 MG TAB IR PO ×3 (08:31→23:27)
[2024-06-04] MEDS: LORazepam (*CRX) 0.5 MG TABLET PO ×3 (08:31→23:20)
--- NOTE | 2024-06-04 11:54 | P.PNIM_ITS ---
Progress Note: A&P Assessment and Plan (1) Pneumonia: Code(s): J18.9 - Pneumonia, unspecified organism Status: Acute Assessment and Plan: Patient here for SOB. CXR showing new LLL airspace disease. No fevers. He was neutropenic on admission with ANC at 1000. Influenza, RSV and COVID PCR were negative. IgG and IgM levels were low. MRSA nasal swab was negative. No urine studies obtained. BCx collected and he was given Rocephin and Azithro once. Vanco and Levaquin added. Oncology consulted and he was started on Neupogen. WBC has normalized now. Vanco 05/29-06/02 then changed to Linezolid. Levaquin started 05/28. BCx grew Staph Epi in one aerobic bottle and Staph hominis in one anaerobic bottle both sensitive to Vanco. Sputum Cx with light growth of Beatriz albicans CXR 06/02 showing worsening PNA Currently on oral Levaquin and Linezolid. Patient not feeling well. WBC normal and no fevers. 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 Pulmonary consulted and discussed. TB testing with other Ag markers ordered. Consider treatment for yeast if has poor response to change in abx. Will have this grown out. Continue vest therapy. BNP 1050 with leg edema. Doubt DVT since he is on Xarelto. Treat CHF. (2) Bacteremia: Code(s): R78.81 - Bacteremia Status: Acute Assessment and Plan: As above (3) CHF (congestive heart failure): Code(s): I50.9 - Heart failure, unspecified Status: Acute Assessment and Plan: Leg mildly edematous. BNP 1050. Consider acute on chronic diastolic CHF. Echo as below. He has been getting prn IV Lasix. Will schedule IV Lasix for a few doses. Resume compression hose. (4) Pancytopenia: Code(s): D61.818 - Other pancytopenia Status: Acute Assessment and Plan: As above. Counts are better. Follow (5) Chronic respiratory failure with hypoxia, on home oxygen therapy: Code(s): J96.11 - Chronic respiratory failure with hypoxia; Z99.81 - Dependence on supplemental oxygen Status: Acute Assessment and Plan: ABG on admission with 7.44/36/96 on 4L. He has chronic hypoxic respiratory failure requiring 3.5-4L chronically. His oxygen requirement remains stable. Follow (6) Atrial fibrillation with RVR: Code(s): I48.91 - Unspecified atrial fibrillation Status: Acute Assessment and Plan: Patient with hx of AFib s/p failed ablation in the past. Presented with AFib with RVR. Metoprolol continued and dose increased. Heart rate still elevated at times but mildly so. Continue Lopressor at current dose. Continue Xarelto. 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 Followed by Dr. Parson at [facility]. Echo 05/29/24 showing EF 55-60%, hypokinesis inferoseptal segment and normal left atria. (8) Adenocarcinoma, lung: Qualifiers: Laterality: right Qualified Code(s): C34.91 - Malignant neoplasm of unspecified part of right bronchus or lung Code(s): C34.90 - Malignant neoplasm of unspecified part of unspecified bronchus or lung Status: Chronic Assessment and Plan: Patient with non-small cell carcinoma diagnosed June 2018. he follows with Dr. Baez and Dr. Cavazos Status post XRT in 2018 and again in fall 2021 due to recurrence. Now with metastatic disease to lymph nodes and bone. He is currently receiving chemotherapy Imaging showing radiation fibrosis RUL and right louise-hilar region as well as scattered sclerotic bone lesions consistent with mets. He is full code. (9) Pleural effusion on right: Code(s): J90 - Pleural effusion, not elsewhere classified Status: Acute Assessment and Plan: CT scan showing small bilateral pleural effusions. Monitor Plan History of DVT on Xarelto Code status full code Subjective Date/time seen: 06/04/24 11:54 Interval history: 63yo male with HTN, AFib, ch respiratory failure on 3L, COPD, hx of DVT/PE and stage IV lung cancer here for SOB. Assuming care. Chart reviewed. He has epistaxis with blowing his nose but this is common. He has chronic nasal congestion and wheezing. Symptoms better after neb treatments. Has more leg edema then usual. Exam Narrative: AF 97.1 107/63 116 18 98% 3L Gen - NARD Chest - distant clear BS, CV - irregularly irregular Abd - Soft, NT/ND, Positive BS Ext - 2+ pedal edema Psych - Nml mood and affect Skin - Warm and dry Objective Data Vital Signs Vital Signs: Vital Signs - 24 hr 06/03/24 12:05 06/03/24 13:43 06/03/24 13:55 Temperature Pulse Rate 116 H 97 113 H Respiratory Rate 18 18 Blood Pressure Pulse Oximetry Oxygen Delivery Oxygen Flow Rate 06/03/24 14:00 06/03/24 16:00 06/03/24 17:06 Temperature 97.7 F Pulse Rate 116 H 109 H 115 H Respiratory Rate 16 Blood Pressure 107/50 L Pulse Oximetry 99 Oxygen Delivery Oxygen Flow Rate 06/03/24 20:00 06/03/24 20:00 06/03/24 20:11 Temperature Pulse Rate 94 99 Respiratory Rate 18 Blood Pressure Pulse Oximetry 98 Oxygen Delivery Nasal Cannula Oxygen Flow Rate 3 06/03/24 20:13 06/03/24 20:24 06/03/24 22:00 Temperature 97.3 F L Pulse Rate 101 H 105 H Respiratory Rate 18 18 Blood Pressure 108/59 L Pulse Oximetry 96 97 Oxygen Delivery Nasal Cannula Oxygen Flow Rate 4 06/04/24 00:00 06/04/24 01:20 06/04/24 01:30 Temperature Pulse Rate 90 95 99 Respiratory Rate 18 18 Blood Pressure Pulse Oximetry Oxygen Delivery Oxygen Flow Rate 06/04/24 04:00 06/04/24 05:19 06/04/24 07:53 Temperature 97.1 F L Pulse Rate 91 100 113 H Respiratory Rate 18 18 Blood Pressure 107/63 Pulse Oximetry 99 Oxygen Delivery Oxygen Flow Rate 06/04/24 07:54 06/04/24 08:07 06/04/24 08:26 Temperature Pulse Rate 88 116 H Respiratory Rate 18 Blood Pressure Pulse Oximetry 98 Oxygen Delivery Nasal Cannula Oxygen Flow Rate 4 06/04/24 08:35 Temperature Pulse Rate Respiratory Rate Blood Pressure Pulse Oximetry 98 Oxygen Delivery Nasal Cannula Oxygen Flow Rate 3 Intake/Output Intake/Output: Intake & Output 06/01/24 06/02/24 06/03/24 06/04/24 23:59 23:59 23:59 23:59 Intake Total 1990 3292 9940 597 Balance 1989 2430 2610 597 Meds/Results Medications: Active Medications Generic Name Dose Route Start Last Admin Trade Name Freq PRN Reason Stop Dose Admin Acetaminophen 650 mg 05/28/24 07:51 06/02/24 20:50 Acetaminophen 325 Mg Tablet PO 650 mg Q4H PRN Administration Mild Pain (1-3) or Fever Albuterol 2.5 mg 05/28/24 18:08 Albuterol Sulfate Neb 2.5 Mg/3 Ml Inh INHALATION Q4HRT PRN Shortness Of Breath Albuterol/Ipratropium 3 ml 05/28/24 14:00 06/04/24 07:48 Ipratropium 0.5 Mg/Albuterol Sulfate 2.5 Mg Ampul.Neb 3 Ml INHALATION 3 ml Q6HRT JESSICA Administration Budesonide 0.5 mg 06/04/24 08:00 06/04/24 07:59 Budesonide Respule Neb 0.5 Mg/2 Ml Amp INHALATION 0.5 mg Q12HRT JESSICA Administration Lidocaine HCl 30 ml/ Al Hydrox 0 ml 05/29/24 10:08 06/02/24 16:14 /Mg Hydrox/Simethicone 30 ml/ PO 5 ml Diphenhydramine HCl 75 mg Q4HWA PRN Administration mouth soreness Cyanocobalamin 2,000 mcg 05/30/24 09:00 06/04/24 08:27 Cyanocobalamin 1,000 Mcg Tablet PO 2,000 mcg QAM JESSICA Administration Cyanocobalamin 500 mcg 05/30/24 09:00 06/04/24 08:26 Cyanocobalamin 500 Mcg Tablet PO 500 mcg QAM JESSICA Administration Ergocalciferol 50,000 units 06/02/24 09:00 06/02/24 08:03 Ergocalciferol 50,000 Units Capsule PO 50,000 units WEEKLY JESSICA Administration Ferrous Sulfate 325 mg 05/31/24 12:00 06/03/24 12:30 Ferrous Sulfate [address] PO 325 mg DAILY@1200 JESSICA Administration Fluticasone Propionate 1 spray 05/29/24 10:30 06/04/24 08:25 Fluticasone Propionate 0.05% Na Spr 16 Gm Btl (*Bkc) NASAL 1 spray Q12HR JESSICA Administration Folic Acid 1 mg 05/30/24 09:00 06/04/24 08:26 Folic Acid 1 Mg Tablet PO 1 mg DAILY JESSICA Administration Furosemide 40 mg 05/29/24 09:00 06/04/24 08:26 Furosemide 40 Mg Tablet PO 40 mg BID JESSICA Administration Guaifenesin 1,200 mg 05/29/24 21:00 06/04/24 08:26 Guaifenesin 12 Hr 600 Mg Tabcr PO 1,200 mg Q12HR JESSICA Administration Heparin Sodium (Beef Lung) 50 units 05/28/24 09:00 06/03/24 08:33 Heparin Flush 50 Units/5 Ml Syringe IV PUSH 50 units QAM JESSICA Administration Heparin Sodium (Beef Lung) 50 units 05/28/24 07:25 Heparin Flush 50 Units/5 Ml Syringe IV PUSH PRN PRN after intermittent infusion Heparin Sodium (Beef Lung) 50 units 05/28/24 07:25 Heparin Flush 50 Units/5 Ml Syringe IV PUSH PRN PRN after blood draws Heparin Sodium (Porcine) 500 units 05/28/24 07:25 Heparin Sodium Lock Flush 500 Units/5 Ml Syringe IV PUSH PRN PRN see comments below Levofloxacin 750 mg 05/31/24 09:00 06/04/24 08:26 Levofloxacin 750 Mg Tablet PO 06/06/24 23:59 750 mg DAILY JESSICA Administration Linezolid 600 mg 06/02/24 20:00 06/04/24 08:26 Linezolid 600 Mg Tablet PO 06/04/24 21:01 600 mg Q12HR JESSICA Administration Lorazepam 0.5 mg 05/31/24 13:03 06/04/24 08:31 Lorazepam (*Crx) 0.5 Mg Tablet PO 0.5 mg Q6H PRN Administration Anxiety Metoprolol Tartrate 50 mg 05/31/24 17:00 06/04/24 08:26 Metoprolol Tartrate 50 Mg Tab PO 50 mg BID JESSICA Administration Ondansetron HCl 4 mg 05/28/24 07:51 05/30/24 08:35 Ondansetron Inj 4 Mg/2 Ml Vial IV PUSH 4 mg Q4H PRN Administration Nausea Oxycodone HCl 5 mg 05/28/24 14:20 06/04/24 08:31 Oxycodone Hcl (*Crx) 5 Mg Tab Ir PO 5 mg Q6H PRN Administration Breakthrough Pain Oxycodone HCl 40 mg 05/29/24 21:00 06/04/24 08:27 Oxycodone Hcl (*Crx) 40 Mg Tab Sr 12hr PO 40 mg Q12H JESSICA Administration Pantoprazole Sodium 40 mg 05/29/24 21:00 06/04/24 08:27 Pantoprazole 40 Mg Tablet PO 40 mg Q12HR JESSICA Administration Pregabalin 225 mg 05/29/24 17:00 06/04/24 08:26 Pregabalin (*Crx) 75 Mg Capsule PO 225 mg BID JESSICA Administration Rivaroxaban 20 mg 05/28/24 17:00 06/03/24 17:06 Rivaroxaban 20 Mg Tablet PO 20 mg DAILY@1700 JESSICA Administration Senna/Docusate Sodium 1 tab 05/30/24 12:23 05/30/24 14:00 Senna/Docusate Sodium Tablet PO 1 tab DAILY PRN Administration constipation Sodium Chloride 10 ml 05/28/24 14:00 06/04/24 04:38 Central Line Flush IV PUSH 10 ml Q8HR JESSICA Administration Sodium Chloride 1 spray 05/28/24 10:14 05/30/24 20:05 Saline 0.65% Demetris Soln 44 Ml Btl NASAL 1 spray Q2H PRN Administration Congestion Sodium Chloride 1 applic 06/02/24 14:47 Sodium Chloride Nasal Gel 14.1 Gm NASAL QID PRN Dry Nasal Passages Tamsulosin HCl 0.4 mg 05/30/24 09:00 06/04/24 08:27 Tamsulosin Hcl 0.4 Mg Capsule PO 0.4 mg DAILY JESSICA Administration Radiology Results: ITS Impressions Chest X-Ray 06/02/24 13:53 IMPRESSION: 1. Increasing opacities in the lingula consistent with progression of pneumonia. 2. Chronic small right pleural effusion and consolidation with volume loss in the suprahilar right upper lobe consistent with treated lung cancer. 3. Sclerosis of a few lower thoracic vertebral bodies consistent with metastatic disease. Labs Labs: Laboratory Results - last 24 hr 06/04/24 05:03 WBC 7.1 RBC 3.27 L Hgb 8.7 L Hct 28.4 L MCV 86.9 MCH 26.6 MCHC 30.6 L RDW 21.6 H Plt Count 144 L MPV 12.0 H Immature Gran % (Auto) 1.4 H Neut % (Auto) 60.1 Lymph % (Auto) 26.6 [place] % (Auto) 10.4 H Eos % (Auto) 1.1 Baso % (Auto) 0.4 Lymph # (Auto) 1.89 [place] # (Auto) 0.7 H Eos # (Auto) 0.1 Baso # (Auto) 0.0 Abs Immat Gran (auto) 0.10 H Absolute Neuts (auto) 4.3 Absolute Nucleated RBC 0.000 Nucleated RBC % 0.0 Sodium 135 L Potassium 4.0 Chloride 101 Carbon Dioxide 32 H Anion Gap 2 L BUN 15 Creatinine 1.00 Estim Creat Clear Calc 74 Estimated GFR > 60 Glucose 107 Calcium 8.0 L Magnesium 2.0 Total Bilirubin 0.4 AST 20 ALT 12 Alkaline Phosphatase 91 Total Protein 6.0 L Albumin 3.1 L
[2024-06-04] MEDS: FERROUS SULFATE 325 MG TABLET DR PO (13:02)
[2024-06-04] MEDS: FUROSEMIDE INJ 40 MG/4 ML VIAL 20 MG IV PUSH (13:02)
[2024-06-04] MEDS: HEPARIN SODIUM LOCK FLUSH 500 UNITS/5 ML SYRINGE IV PUSH (13:16)
[2024-06-04 13:24] LABS: NT Pro B Type Natriuretic Pept 1050 pg/mL (19.9-100)
[2024-06-04] MEDS: LIDOCAINE/PRILOCAINE CREAM 2.5-2.5% TUBE 1 EACH TOPICAL (14:11)
--- NOTE | 2024-06-04 15:07 | PM.CNPUL ---
Assessment and Plan Assessment and plan (1) Pneumonia: Qualifiers: Laterality: right Lung location: lower lobe of lung Pneumonia type: due to unspecified organism Qualified Code(s): J18.9 - Pneumonia, unspecified organism Code(s): J18.9 - Pneumonia, unspecified organism Status: Acute Assessment and Plan: Patient has been admitted multiple times to the hospital over the last 6 months and treated with various antibiotics. He is immunosuppressed receiving chemotherapy. he was admitted with 1 blood cultures showing oxacillin resistant Staph epidermidis and another blood should culture showing oxacillin resistant Staph hominis. Initial COVID, influenza RSV swab negative. he presents with chills, sweats, worsening shortness of breath, wheezing and change in his phlegm. He was neutropenic on arrival. patient has been treated with Neupogen and is no longer neutropenic with a white blood cell count of 7.1. He is afebrile. Clinically he has improved from 10% at his baseline to currently 50% today. He continues to have unchanged chills and sweats his phlegm is improved to dark yellow with a normal volume today. chest x-ray today with worsening left mid lung infiltrate and CT scan today with unchanged right upper lobe consolidation and new left upper lobe and lower lobe infiltrates consistent with pneumonia. These are new since 05/09/2024. Patient has received multiple antibiotics including ceftriaxone and azithromycin on 05/28, vancomycin 05/29 through 06/02, levofloxacin 05/29 to current, and linezolid started 06/02 to current. Etiology includes infection ( bacterial, viral, doubt fungal or mycobacterial), cancer, doubt fluid overload. Plan: I will repeat blood cultures. I will continue vanco and linezolid for total 10 days (day 7) and levofloxacin for total 10 days (day 7). I will add cefepime. I will repeat COVID, influenza RSV. I will send a respiratory pathogen panel to [employer]. I will check urine Legionella and urine Legionella. I will send a serum mycoplasma IgM. I will send a QuantiFERON gold. Patient with Beatriz in his phlegm, I do not believe this is candidal pneumonia at this time. I will check a chest x-ray, and procalcitonin on 06/05/2024. Discussed with Dr. Chase, will follow with you. (2) COPD (chronic obstructive pulmonary disease): Code(s): J44.9 - Chronic obstructive pulmonary disease, unspecified Status: Chronic Assessment and Plan: GOLD grade 2 group E COPD Patient with 80 pack year tobacco use, quit in 2019. 08/05/2018 PFTs with FEV1 is 2.33 L, 66% predicted, no bronchodilator response, air trapping, hyperinflation, normal DLCO. CT scan 06/04/2024 with mild apical predominant paraseptal emphysema. chronic hypoxemic respiratory failure on 3.5 L at rest and with sleep and 4 with activity. patient is followed at [facility] and maintained on Advair, budesonide nebulizer and albuterol nebulizer.. 06/04/2024: Patient is being treated for pneumonia. He has no evidence of a COPD exacerbation. Patient has exertional tachycardia with his AFib at a rate of 130 when he returned from the bathroom today. His saturations were 98 on 4 L. Plan: Given his exertional tachycardia I will place him on nebulized ipratropium 0.5 mg q.6 hours, nebulized budesonide 500 mcg twice a day and discontinue his albuterol. If the patient has any worsening bronchospasm will restart levalbuterol. I do not feel he needs systemic steroids at this time. (3) Adenocarcinoma, lung: Qualifiers: Laterality: right Qualified Code(s): C34.91 - Malignant neoplasm of unspecified part of right bronchus or lung Code(s): C34.90 - Malignant neoplasm of unspecified part of unspecified bronchus or lung Status: Chronic Assessment and Plan: regarding his lung cancer this was diagnosed in June of 2018 with a right upper lobe biopsy. Status post radiation therapy 12/18/2018. Status post XRT 03/10/2022. Patient currently on his 3rd line of chemotherapy and has received 3 cycles of Taxotere and cyrmza per Dr. Baez, the last of which was on 05/21/2024. Plan was to repeat a CT scan in June 2024 after his 4th cycle. Plan: Per oncology note on 05/30/2024 the plan was to hold off on a CT scan until June of 2024. Repeat CT scan now without change of right upper lobe consolidation. (4) Atrial fibrillation: Code(s): I48.91 - Unspecified atrial fibrillation Status: Acute Assessment and Plan: Patient tells me at home when he walks his heart rate goes to 130. Patient walked from the bathroom to his bed on 4 L nasal cannula on 06/04/2024 and a returning to the bed his heart rate was 130. Plan: I will discontinue beta agonist at this time. Patient is receiving Lasix per hospitalist. Patient is on metoprolol 50 mg p.o. q.day. further management per hospitalist team. History of Present Illness History of Present Illness Consult date: 06/04/24 Chief complaint: pneumonia, pancytopenia, afib rvr(now controlled); Narrative: 06/04/2024: This is a new pulmonary consult for COPD, lung cancer, pneumonia. 63-year-old with a history of COPD, metastatic lung cancer to the bone, anxiety, atrial fibrillation on rivaroxaban, right upper extremity DVT and PE in 12/2018. regarding his lung cancer this was diagnosed in June of 2018 with a right upper lobe biopsy. Status post radiation therapy 12/18/2018. Status post XRT 03/10/2022. Patient currently on his 3rd line of chemotherapy and has received 3 cycles of Taxotere and cyrmza per Dr. Baez, the last of which was on 05/21/2024. Plan was to repeat a CT scan in June 2024 after his 4th cycle. Regarding his COPD. The patient is on home oxygen 3.5 L at rest and with sleep and 3 and half to 4 L with activity. The patient is limited in his activity at room to room mainly because his heart rate goes to 130 and then he breathes fast. At baseline he produces yellow phlegm 1 to 2 times a day. He takes albuterol nebulizer, budesonide nebulizer twice a day, Advair as an outpatient. He follows with [facility], Dr. Leroy and last saw him 3 months ago. Patient has been in the hospital monthly for the last 6 months. Last admitted 05/09 through 05/17/2024 with neutropenic fever, epistaxis and treated for pneumonia. He says that he did improve when he left. Patient was back to his baseline and on 05/25/2024 he developed increasing shortness of breath at rest and with exertion, wheezing, increased volume and change in color of his phlegm from yellow to dark mireles. He denied any cough. He was also having chills, sweats but no fever was documented. Symptoms progressed and patient presented to the emergency department on 05/28/2024 with a white blood cell count of 1.8, platelets 100, creatinine 0.9, COVID, influenza, RSV swab RT PC are negative, MRSA swab negative. Blood cultures were obtained and 1 grew out oxacillin resistant Staph epi and 1 grew out oxacillin resistant Staph hominis. Patient was initially treated with ceftriaxone and azithromycin on 05/28, vancomycin on 05/29 and levofloxacin was started on 05/29. Patient had a chest x-ray today that showed worsening left mid lung field infiltrates. CT scan of the chest shows right upper lobe consolidation that is unchanged and new left lower lobe infiltrates. Since patient was admitted he says that he is improved. When he presented he self he was 10% of his normal and now he says he has 50% back to his normal. The phlegm is now dark yellow. He continues to have chills and sweats but no documented fever. Beta minute patient had a sputum sample that g stain showed few white blood cells, moderate mixed bacterial gloria and yeast. I called laboratory to identify this used and it has returned Beatriz albicans. 06/04/2024: Patient was in the bathroom and when he walked from the bathroom to his bed on 4 L nasal cannula his saturations remained 98% and his heart rate was 130. He had dyspnea on exertion with this activity. His white blood cell count is 7.1, creatinine is 1.0. DATA: 06/04/24 EXAMINATION:CT diagnostic chest wo con INDICATION: Worsening pneumonia. TECHNIQUE: Computed tomography (CT) of the chest was performed without intravenous contrast. Automated exposure control and iterative reconstruction technique were employed. The dose-length product (DLP) was 282.17 mGy-cm. COMPARISON: Chest CT 05/09/2024 FINDINGS: There are airspace opacities with volume loss involving right upper lobe and right perihilar region, consistent with radiation fibrosis. There is mild emphysema. There are patchy groundglass opacities with small airspace opacity component and septal thickening involving the left upper lobe and left lower lobe, consistent with pneumonia. There are small pleural effusions. The heart size is normal. There are coronary artery calcifications. No pericardial effusion. There is a left internal jugular port with tip at superior cavoatrial junction. There are changes of cholecystectomy. There is mild bilateral gynecomastia. Epidural electrodes are noted. There are scattered sclerotic lesions of bone. IMPRESSION: 1. Worsened left lung disease, consistent with pneumonia. 2. 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 3. Small pleural effusions. 4. Mild emphysema. 5. Sclerotic lesions of bone, consistent with metastatic disease. * 05/09/24CXR; Persistent volume loss in the right hemithorax and unchanged consolidation in the posterior right mid to upper lung zone and at the posterior right lower lung zone, bladder likely due at least in part to a small right pleural effusion. Lung remains clear. No pneumothorax or left-sided pleural effusion. Arch size is normal. Median sternotomy wires and mediastinal surgical clips are seen, likely from prior coronary artery bypass grafting. Left internal jugular central venous port catheter with distal tip at the caudal superior vena cava. Spinal stimulator leads extend the length of the visualized lower cervical to upper lumbar central canal with lead tips terminating in the upper cervical spine on the prior radiographs. There also appears. The tip of a intrathecal catheter projects over the posterior central canal of the lower thoracic spine. IMPRESSION: 1. Persistent volume loss with chronic opacities in the posterior right mid to upper lung zone on CT. 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 2. No recent interval change in a small right pleural effusion with associated compressive atelectasis in the right lower lobe. 3. Difficult to absolutely exclude superimposed pneumonia however there are no new opacities to more specifically suggest this. * 05/09/2024; CTA No pulmonary embolism. Small bilateral pleural effusions. Increased size of a region of consolidation at the posterior right lower lobe with subtle surrounding tree-in-bud opacities suggestive of pneumonia superimposed over chronic atelectasis/scarring. Similar there are new small centrilobular groundglass opacities and tree-in-bud opacities in the right upper and middle lung at the periphery of an unchanged region of consolidation with volume loss and architectural distortion at the posterior right upper lung likely related to radiation fibrosis for reported prior lung cancer. New small patchy region of groundglass opacity and a few small centrilobular nodules at the junction of the lingula and left upper lobe also suspicious for pneumonia. There are a few unchanged larger and more solid-appearing subcentimeter pulmonary nodules most prominent in the left lower lobe suspicious for metastatic disease. No pulmonary edema or pneumothorax. Heart size is normal but shifted towards the right due to the volume loss in the right lung. No pericardial effusion. Left internal jugular central venous port catheter with distal tip at the superior cavoatrial junction. Thoracic aorta is normal in caliber with no dissection. No pathologically enlarged thoracic lymphadenopathy. Cholecystectomy clips at the gallbladder fossa. Diffuse hepatic steatosis. Median sternotomy. Scattered patchy sclerotic bone lesions most prominent in the lower thoracic spine consistent with metastatic disease. Distal tip of an intrathecal catheter likely for pain management in the posterior central canal at the level of T9. There are spinal stimulator leads entering the central canal at level of T12-L1 which extend through the thoracic and lower cervical central canal extending beyond the cephalad margin of the field of imaging. IMPRESSION: 1. No pulmonary embolism. 2. Bilateral scattered mild new lung disease, composed predominantly of tree-in-bud opacities and small groundglass opacities suspicious for pneumonia 3. Unchanged small right and new small left pleural effusions. 4. A couple regions of chronic consolidation with volume loss in the right mid to upper lung and right lower lung likely atelectasis/scarring related to reported treated lung cancer. 5. Unchanged scattered subcentimeter solid pulmonary nodules and scattered patchy sclerotic bone lesions consistent with metastatic disease. 05/15/2022 EXAMINATION: CTA chest PE protocol INDICATION: Shortness of breath and cough. Right chest pain. COMPARISON: Chest CT 04/22/2022 FINDINGS: There are airspace and groundglass opacities with volume loss and architectural distortion involving right upper lobe and perihilar right lower lobe. There are patchy groundglass opacities in basilar right lower lobe. There are patchy groundglass opacities in left upper lobe. There is a small right pleural effusion. The heart size is normal. There is a left internal jugular port with tip in right atrium. There is no pulmonary embolus. There are changes of cholecystectomy. There are scattered sclerotic lesions of bone, consistent with metastatic disease. Median sternotomy wires are noted. IMPRESSION: 1. No pulmonary embolus. 2. Airspace and groundglass opacities with volume loss and architectural distortion involving right upper lobe and perihilar right lower lobe, consistent with primary bronchogenic carcinoma and changes of radiation therapy without or with superimposed pneumonia. 3. Groundglass opacities in right lower lobe and left upper lobe with improvement from 04/22/2022, which may be radiation pneumonitis or pneumonia. 4. Stable small right pleural effusion. 5. Scattered sclerotic lesions of bone, consistent with metastatic disease. 04/22/2022 EXAMINATION: CTA chest PE protocol INDICATION: Shortness of breath. Dyspnea. History of pulmonary embolism. History of lung cancer metastatic to lymph nodes and bone COMPARISON: 04/22/2022 portable AP chest 12/29/2021 CT pulmonary scan FINDINGS: There is diminished size of the large right posterior perihilar lung mass since 12/29/2021. Residual tumor and extensive surrounding right upper lobe and superior segment right lower lobe infiltrate are noted. There is mild right pleural effusion. There are patchy groundglass infiltrates scattered in the left upper lobe and right lower lobe. Normal heart size. No pericardial effusion. No thoracic aortic aneurysm or dissection. No pulmonary embolism is detected. Status post sternotomy. There are scattered osteosclerotic lesions of the cervical and thoracic spine, suggesting metastatic disease. Consider lung and possibly prostate skeletal metastasis. IMPRESSION:? No evidence of pulmonary embolism Diminished size of right posterior perihilar lung mass since 12/29/2021. There is extensive infiltrate in the right upper lobe and superior segment right lower lobe and there are scattered patchy groundglass infiltrates in the right lower lobe and particularly left upper lobe No evidence of pulmonary embolism Osteoblastic skeletal metastases; consider prostate cancer skeletal metastases in addition to lung cancer metastases. 02/24/2022 Echo Summary ? 1. Left ventricular chamber dimension is normal. ? 2. Left ventricular systolic function is normal, estimated at 55-60%. ? 3. The left ventricular diastolic function is abnormal. ? 4. E/e' 10 is mildly elevated. ? 5. There is mild aortic valve sclerosis. ? 6. There is trace mitral valve regurgitation. ? 7. There is trace tricuspid valve regurgitation. Right Ventricle ? Right ventricular systolic function is normal and with normal TAPSE 1.8 cm. ? Right ventricular chamber dimension is normal. Right Atria ? Right atrial chamber dimension is normal. Atrial Septum ? Agitated saline injection with and without valsalva maneuver opacified right side cardiac chambers without shunt to left side cardiac chambers. ? Intact interatrial septum visualized by 2D and agitated saline imaging. Tricuspid Valve ? There is trace tricuspid valve regurgitation. ? RVSP is not calculated due to an inadequate TR jet. 08/05/2018 PFTs Findings: Spirometry: ? There is decreased maximal expiratory airflow at all lung volumes with concave expiratory flow tracing.? The contour the inspiratory flow tracing is normal.? The pre bronchodilator FVC is 4.44 L, 89% predicted.? The pre bronchodilator FEV1 is 2.33 L, 66% predicted.? The pre bronchodilator FEV1:? FVC ratio is 53%.? The post bronchodilator FVC is 4.51 L, representing a 2% increase.? The post bronchodilator FEV1 is 2.54 L, representing a 9% increase.? The post bronchodilator FEV1:? FVC ratio is 56%.? Plethysmography:? The total lung capacity is 9.12 L, 127% predicted.? The functional residual capacity is 5.35 L, 131% predicted.? The residual volume is 4.63 L, 188% predicted.? Plethysmography the diffusing capacity unadjusted for hemoglobin and carboxyhemoglobin is 19.3, 78% predicted.? The diffusing capacity adjusted for alveolar volume is 3.39, 86% predicted. My Impression: There is a moderate obstructive abnormality without significant improvement after inhaling a single dose of albuterol. The increase in residual volume is consistent with air trapping from an obstructive abnormality.? Hyperinflation is present as demonstrated by the increase in functional residual capacity and total lung capacity and is consistent with an obstructive abnormality. The diffusing capacity is normal. There are no prior studies for comparison Review of Systems Constitutional: Constitutional: Reports no additional constitutional complaints Eyes: Eyes: Reports no additional eye complaints ENT: Reports system reviewed and no additional complaints, except as documented Cardiovascular: Cardiovascular: Reports no additional cardiovascular complaints Respiratory: Respiratory: Reports no additional respiratory complaints Gastrointestinal: Gastrointestinal: Reports no additional gastrointestinal complaints Musculoskeletal: Musculoskeletal: Reports no additional musculoskeletal complaints Neurologic: Reports system reviewed and no additional complaints, except as documented Psychiatric: Psychiatric: Reports no additional psychiatric complaints Endocrine: Endocrine: Reports no additional endocrine complaints Hematologic/Lymphatic: Hematologic/Lymphatic: Reports no additional hematologic/lymphatic complaints Allergic/Immunologic: Allergic/Immunologic: Reports no additional allergic/immunologic complaints [facility] Past Medical History Medical History History of recurrent pneumonia Chronic anticoagulation Chronic respiratory failure with hypoxia, on home oxygen therapy Chronic obstructive pulmonary disease uses 3 L prn Benign prostatic hyperplasia Chronic anemia Seasonal allergies History of pulmonary embolism (12/2018) History of DVT (deep vein thrombosis) Right upper extremity DVT and bilateral PE December 2018 for which he took Xarelto for several months. Anxiety Peripheral neuropathy Chronic pain syndrome Due to chronic lower back pain after complications with lower spinal fusion 2009. Hypertension Reports he is no longer on medications for such. Atrial fibrillation s/p cardiac ablation by Dr. Tom Oakley at [facility] Adenocarcinoma, lung Non-small cell carcinoma diagnosed June 2018. Follows with Dr. Baez and Dr. Cavazos; underwent radiation therapy from 12/05/2018 to 12/18/2018 and again in fall 2021 due to recurrence. Now with metastatic disease to lymph nodes and bone. He is currently receiving chemotherapy and has plans to start Keytruda on August 18. 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 Followed by Dr. Parson at [facility] last seen around December 2018. Surgical History Surgical History (Updated 05/09/24 @ 14:36 by Traci Dawn PA-C) History of cholecystectomy History of transurethral resection of prostate History of open heart surgery (~2017) Status post resection of atrial myxoma. History of lumbar fusion Anterior and posterior L4-S1 fusion 2009 History of appendectomy In the 90s History of carpal tunnel release Left 2011 History of elbow surgery Left elbow ulnar neurolysis Family History Family History Father Acute myocardial infarction Pulmonary embolism Sibling Breast cancer Mother Family history of chronic obstructive pulmonary disease Social History Social History Social History: Mr. Garay lives with his ex- Edna in [place]. They have 2 children. 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 He denies significant alcohol use, drinks socially. Smoked 2 packs per day of cigarettes x 40 years and quit 2017. Denies other substance use. Long-term opioid use due to chronic back pain. Ambulates without a cane or walker at home. He designates his ex- as his surrogate decision maker and he wishes to be a full code however, he states he would not want to be on a ventilator for long-term. Smoking packs per day: 2 Smoking cigarettes per day: 40.0 Years smoked: 40 Smoking pack-years: 80.00 Smoking status: Former smoker Second hand tobacco smoke exposure: Yes Alcohol intake: never Substance use: never Substance use type: does not use Do You Feel Safe in your Home?: Yes Lack of Transportation: No Lack of Food: Never True Current Housing: I Have Housing Concerned About Future Housing: No Difficulty Paying Gas/Electric Bills: No Difficulty Paying for Meds: No Currently Unemployed: No Education: Decline to Answer Difficulty w/ Childcare or Family Care: No Living arrangements: with family Occupation/Education: unemployed Spiritual care concerns: No Meds Home Medications and Allergies Home Medications ?Medication ?Instructions ?Recorded ?Confirmed ?Type pregabalin 225 mg capsule (Lyrica) 225 mg PO BID 11/07/19 05/28/24 History triamcinolone acetonide 0.1 % 1 applic topical QID PRN psioriasis 11/07/19 05/28/24 History topical cream (Triderm) cholecalciferol (vitamin D3) 1,250 1,250 mcg PO WEEKLY 09/09/20 05/28/24 History mcg (50,000 unit) capsule tamsulosin 0.4 mg capsule 0.4 mg PO DAILY 01/10/22 05/28/24 History metoprolol tartrate 25 mg tablet 12.5 mg PO BID 04/22/22 05/28/24 History lorazepam 0.5 mg tablet 0.5 mg PO Q8H PRN Anxiety #10 tabs 04/26/22 05/28/24 Rx albuterol sulfate 90 mcg/actuation 2 inh inhalation Q4H PRN Shortness 05/15/22 05/28/24 History aerosol inhaler Of Breath Or Wheezing ferrous sulfate 325 mg (65 mg 325 mg PO DAILY 07/18/22 05/28/24 History iron) tablet (iron) folic acid 1 mg tablet 1 mg PO DAILY 07/26/22 05/28/24 History omeprazole 40 mg capsule,delayed 40 mg PO DAILY 08/03/22 05/28/24 History release ondansetron HCl 8 mg tablet 8 mg PO QID PRN NAUSEA 08/03/22 05/28/24 History rivaroxaban 20 mg tablet (Xarelto) 20 mg PO DAILY@1700 #30 tabs 08/04/22 05/28/24 Rx oxycodone 40 mg tablet,crush 40 mg PO Q12H 01/02/24 05/28/24 History resistant,extended release 12 hr acetaminophen 500 mg tablet 500 mg PO Q6H PRN Pain (Scale 03/07/24 05/28/24 History Score 1-3) budesonide 0.5 mg/2 mL suspension 0.5 mg inhalation BID 03/07/24 05/28/24 History for nebulization cyanocobalamin (vitamin B-12) 2,500 mcg PO DAILY 03/07/24 05/28/24 History fluticasone propion-salmeterol 2 puff inhalation Q12H 03/07/24 05/28/24 History naloxone 4 mg/actuation nasal 4 mg intranasal PER PKG DIR 03/07/24 05/28/24 History spray (Narcan) oxycodone 5 mg capsule 5 mg PO Q6H PRN Breakthrough Pain 03/07/24 05/28/24 History guaifenesin 600 mg tablet, 1,200 mg (2 x 600 mg) PO Q12HR #10 03/12/24 05/28/24 Rx extended release 12 hr (Mucus tabs Relief ER) sennosides 8.6 mg-docusate sodium 1 tab-cap PO DAILY 03/25/24 05/28/24 History 50 mg tablet (Senokot-S) ergocalciferol (vitamin D2) 1,250 50,000 unit PO Mo@0900 05/17/24 05/28/24 Rx mcg (50,000 unit) capsule (Vitamin hypocalcemia #12 caps D2) prednisone 10 mg tablet 10 mg PO DIRECTED #40 tabs 05/17/24 05/28/24 Rx sodium chloride 0.65 % nasal spray 1 spray intranasal BID #45 mL 05/17/24 05/28/24 Rx aerosol (Saline Mist) sodium chloride 0.65 % nasal spray 1 spray intranasal Q2H PRN 05/17/24 05/28/24 Rx aerosol (Saline Mist) Congestion 1 month #45 mL furosemide 40 mg tablet 40 mg PO BID edema 05/28/24 05/28/24 History sodium chloride-aloe vera nasal 1 applic intranasal Q6H PRN nasal 05/28/24 05/28/24 History gel ([place] Saline nasal gel) dryness Allergies Allergy/AdvReac Type Severity Reaction Status Date / Time bee venom protein (honey bee) Allergy Unknown Swelling Verified 05/28/24 05:25 alprazolam (From Xanax) AdvReac Intermediate Agitated Verified 05/29/24 15:08 Vital Signs Vital Signs - 24 hr 06/03/24 16:00 06/03/24 17:06 06/03/24 20:00 Temperature Pulse Rate 109 H 115 H Respiratory Rate Blood Pressure Pulse Oximetry 98 Oxygen Delivery Nasal Cannula Oxygen Flow Rate 3 06/03/24 20:00 06/03/24 20:11 06/03/24 20:13 Temperature Pulse Rate 94 99 Respiratory Rate 18 Blood Pressure Pulse Oximetry 96 Oxygen Delivery Nasal Cannula Oxygen Flow Rate 4 06/03/24 20:24 06/03/24 22:00 06/04/24 00:00 Temperature 36.3 C L Pulse Rate 101 H 105 H 90 Respiratory Rate 18 18 Blood Pressure 108/59 L Pulse Oximetry 97 Oxygen Delivery Oxygen Flow Rate 06/04/24 01:20 06/04/24 01:30 06/04/24 04:00 Temperature Pulse Rate 95 99 91 Respiratory Rate 18 18 Blood Pressure Pulse Oximetry Oxygen Delivery Oxygen Flow Rate 06/04/24 05:19 06/04/24 07:53 06/04/24 07:54 Temperature 36.2 C L Pulse Rate 100 113 H Respiratory Rate 18 18 Blood Pressure 107/63 Pulse Oximetry 99 98 Oxygen Delivery Nasal Cannula Oxygen Flow Rate 4 06/04/24 08:07 06/04/24 08:26 06/04/24 08:35 Temperature Pulse Rate 88 116 H Respiratory Rate 18 Blood Pressure Pulse Oximetry 98 Oxygen Delivery Nasal Cannula Oxygen Flow Rate 3 06/04/24 13:42 06/04/24 14:23 06/04/24 14:35 Temperature 36.8 C Pulse Rate 102 H 114 H Respiratory Rate 19 18 18 Blood Pressure 107/70 Pulse Oximetry 99 Oxygen Delivery Oxygen Flow Rate Exam Const: General: cooperative and comfortable Orientation/consciousness: oriented to person, oriented to place and oriented to time HENMT: Head: normal to inspection Ears: hearing grossly normal bilaterally Eyes: General: appearance normal, both eyes and all related structures Neck: Neck: normal visual inspection Chest: Chest palpation & inspection: normal inspection of the chest Resp: Effort & Inspection: normal respiratory effort and able to speak in complete sentences Auscultation: no crackles, no rales, no rhonchi, no wheezes and diminished lung sounds Other: Right upper lobe decreased breath sounds. Cardio: Jugular venous distension: no JVD GI: Inspection: normal to inspection GI Palp: No abdominal tenderness Skin: General skin exam: normal color Neuro: General: oriented to person, oriented to place and oriented to time Extrem: General: normal to inspection and edema Psych: Appearance: grossly normal Results Laboratory Findings 06/04/24 05:03 06/04/24 05:03 ABG, PT/INR, D-dimer: ABG ABG pH 7.440 (7.350-7.450) 05/28/24 06:06 ABG pCO2 35.9 mmHg (35.0-45.0) 05/28/24 06:06 ABG pO2 95.7 mmHg (80.0-100.0) 05/28/24 06:06 ABG O2 Saturation 97.6 % (95.0-100.0) 05/28/24 06:06 Abnormal lab findings: Abnormal Labs 05/28/24 05/28/24 05/28/24 05:34 06:06 06:15 WBC 1.8 L* RBC 3.66 L Hgb 9.7 L Hct 31.8 L MCHC 30.5 L RDW 22.9 H Plt Count 100 L MPV Immature Gran % (Auto) Neut % (Auto) Lymph % (Auto) [place] % (Auto) Lymph # (Auto) 0.63 L [place] # (Auto) Abs Immat Gran (auto) Absolute Neuts (auto) 1.0 L Absolute Nucleated RBC Nucleated RBC % Abs Lymphs (Manual) Absolute Eos (Manual) ABG O2 Content 14.4 L Total Hemoglobin 10.5 L Sodium Chloride 110 H Carbon Dioxide Anion Gap 3 L Glucose Calcium 7.5 L Magnesium Iron TIBC % Saturation Ferritin AST NT-Pro-B Natriuret Pep 434 H Total Protein 6.0 L Albumin 3.3 L Vitamin B12 Vancomycin Trough IgG IgM 05/28/24 05/28/24 05/29/24 08:26 08:41 06:07 WBC 1.9 L* RBC 3.22 L Hgb 8.7 L Hct 28.6 L MCHC 30.4 L RDW 22.2 H Plt Count 101 L MPV 10.5 H Immature Gran % (Auto) 4.7 H Neut % (Auto) Lymph % (Auto) [place] % (Auto) 16.8 H Lymph # (Auto) 0.54 L [place] # (Auto) Abs Immat Gran (auto) 0.09 H Absolute Neuts (auto) 0.9 L Absolute Nucleated RBC Nucleated RBC % Abs Lymphs (Manual) 0.39 L Absolute Eos (Manual) 0.01 L ABG O2 Content Total Hemoglobin Sodium Chloride 111 H Carbon Dioxide 21 L Anion Gap Glucose Calcium 6.7 L Magnesium 2.6 H 2.5 H Iron 26 L TIBC 226 L % Saturation 12 L Ferritin 844.00 H AST 16 L NT-Pro-B Natriuret Pep Total Protein 6.0 L Albumin 3.0 L Vitamin B12 Vancomycin Trough IgG 337 L IgM 26 L 05/30/24 05/30/24 05/31/24 05:57 20:14 05:44 WBC 1.3 L* 2.5 L RBC 2.83 L 2.73 L Hgb 7.5 L 7.4 L Hct 25.0 L 23.9 L MCHC 30.0 L 31.0 L RDW 21.7 H 21.7 H Plt Count 78 L 81 L MPV 11.8 H Immature Gran % (Auto) 0.8 H 1.2 H Neut % (Auto) 40.0 L Lymph % (Auto) [place] % (Auto) 21.5 H 17.3 H Lymph # (Auto) 0.45 L 0.73 L [place] # (Auto) Abs Immat Gran (auto) Absolute Neuts (auto) 0.5 L Absolute Nucleated RBC Nucleated RBC % Abs Lymphs (Manual) Absolute Eos (Manual) ABG O2 Content Total Hemoglobin Sodium Chloride 110 H 111 H Carbon Dioxide Anion Gap 3 L Glucose Calcium 6.7 L 7.6 L Magnesium Iron < 10 L TIBC % Saturation < 3 L Ferritin AST 13 L NT-Pro-B Natriuret Pep Total Protein 5.0 L Albumin 2.8 L Vitamin B12 > 1000.0 H Vancomycin Trough 21.6 H IgG IgM 06/01/24 06/02/24 06/03/24 05:49 06:56 06:10 WBC 16.8 H RBC 2.93 L 3.13 L 3.02 L Hgb 7.8 L 8.4 L 8.0 L Hct 25.5 L 27.4 L 26.3 L MCHC 30.6 L 30.7 L 30.4 L RDW 22.2 H 22.0 H 21.8 H Plt Count 105 L 127 L 132 L MPV 11.8 H 11.2 H 11.2 H Immature Gran % (Auto) 1.1 H 0.7 H 1.0 H Neut % (Auto) 79.7 H 74.0 H Lymph % (Auto) 12.7 L 16.6 L [place] % (Auto) 9.1 H Lymph # (Auto) [place] # (Auto) 0.7 H 0.9 H Abs Immat Gran (auto) 0.08 H 0.11 H 0.09 H Absolute Neuts (auto) 13.4 H 6.9 H Absolute Nucleated RBC 0.020 H 0.020 H Nucleated RBC % 0.3 H Abs Lymphs (Manual) Absolute Eos (Manual) ABG O2 Content Total Hemoglobin Sodium 135 L Chloride 108 H 108 H Carbon Dioxide Anion Gap 2 L 2 L Glucose 117 H Calcium 8.0 L Magnesium Iron TIBC % Saturation Ferritin AST 13 L 15 L NT-Pro-B Natriuret Pep Total Protein 6.0 L 6.0 L 6.0 L Albumin 2.9 L 2.9 L 2.8 L Vitamin B12 Vancomycin Trough IgG IgM 06/04/24 06/04/24 05:02 05:03 WBC RBC 3.27 L Hgb 8.7 L Hct 28.4 L MCHC 30.6 L RDW 21.6 H Plt Count 144 L MPV 12.0 H Immature Gran % (Auto) 1.4 H Neut % (Auto) Lymph % (Auto) [place] % (Auto) 10.4 H Lymph # (Auto) [place] # (Auto) 0.7 H Abs Immat Gran (auto) 0.10 H Absolute Neuts (auto) Absolute Nucleated RBC Nucleated RBC % Abs Lymphs (Manual) Absolute Eos (Manual) ABG O2 Content Total Hemoglobin Sodium 135 L Chloride Carbon Dioxide 32 H Anion Gap 2 L Glucose Calcium 8.0 L Magnesium Iron TIBC % Saturation Ferritin AST NT-Pro-B Natriuret Pep 1050 H Total Protein 6.0 L Albumin 3.1 L Vitamin B12 Vancomycin Trough IgG IgM Diagnostic Findings Additional studies: ITS Impressions Chest X-Ray 05/28/24 06:22 Impression: Mild interval improvement in right upper lobe consolidation, compatible mildly improving pneumonia. New left lower lobe airspace disease, which could reflect additional pneumonia. Small right pleural effusion. Chest X-Ray 06/02/24 13:53 IMPRESSION: 1. Increasing opacities in the lingula consistent with progression of pneumonia. 2. Chronic small right pleural effusion and consolidation with volume loss in the suprahilar right upper lobe consistent with treated lung cancer. 3. Sclerosis of a few lower thoracic vertebral bodies consistent with metastatic disease. Chest CT 06/04/24 14:52
[2024-06-04] MEDS: SENNA/DOCUSATE SODIUM TABLET 1 TAB PO (16:06)
[2024-06-04] MEDS: RIVAROXABAN 20 MG TABLET PO (16:06)
[2024-06-04] MEDS: CEFEPIME 2 GM/NS 50 ML 2 GM/50 ML BAG IVPB ×2 (16:07→23:28)
[2024-06-04] MEDS: FUROSEMIDE INJ 40 MG/4 ML VIAL IV PUSH (16:07)
[2024-06-04 17:09] LABS: Influenza A QL RT-PCR Negative (Negative); Influenza B QL RT-PCR Negative (Negative); RSV RNA, RT-PCR Negative (Negative); SARS-CoV-2 RNA PCR Negative (Negative)
[2024-06-04] MEDS: IPRATROPIUM BR 0.02% INH SOLN 0.5 MG/2.5 ML VIAL INHALATION (21:07)
[2024-06-05] VITALS (19 sets, daily range): BP systolic 98–125; BP diastolic 56–77; PULSE 79–113; RESP 16–20; TEMP 36–36.2; O2SAT 93–100
[2024-06-05] MEDS: IPRATROPIUM BR 0.02% INH SOLN 0.5 MG/2.5 ML VIAL INHALATION ×4 (02:28→21:00)
[2024-06-05] MEDS: ACETAMINOPHEN 325 MG TABLET 650 MG PO (04:10)
[2024-06-05 06:09] LABS: Basophils Percent Auto 0.4 % (0.2-1.2); Eosinophils Absolute Auto 0.1 K/mm3 (0-0.3); Eosinophils Percent Auto 1.9 % (0-4.4); Hematocrit 27.5 % (42.0-52.0); Hemoglobin 8.2 g/dL (14.0-18.0); Immature Granulocyte Absolute 0.07 K/mm3 (0.00-0.031); Immature Granulocyte Percent A 1.5 % (0-0.5); Lymphocytes Absolute Auto 1.12 K/mm3 (0.9-3.2); Mean Corpuscular HGB Conc 29.8 g/dl (32-36); Mean Corpuscular Hemoglobin 25.9 pg (26-34); Mean Platelet Volume 12.2 fl (7.4-10.4); Monocytes Absolute Auto 0.5 K/mm3 (0.1-0.6); Monocytes Percent Auto 9.7 % (2.6-8.5); Neutrophils Absolute Auto 2.9 K/mm3 (1.3-6.7); Neutrophils Percent Auto 62.5 % (45.5-73.1); Platelet Count Result 124 k/mm3 (150-375); Red Blood Count 3.16 M/mm3 (4.6-6.20); Red Cell Distribution Width 21.5 % (11.5-14.5); White Blood Count 4.7 K/mm3 (4.5-10.0)
[2024-06-05 06:24] LABS: Alanine Aminotransferase 10 U/L (6-50); Albumin Level 2.9 g/dL (3.5-5.1); Alkaline Phosphatase 79 U/L (38-126); Anion Gap 4 mmol/L (4-12); Aspartate Amino Transferase 16 U/L (17-59); Bilirubin,Total 0.3 mg/dL (0.2-1.3); Blood Urea Nitrogen 16 mg/dL (9-20); CRP 7.6 mg/dL (<1.0); Calcium 7.9 mg/dL (8.4-10.2); Carbon Dioxide 31 mmol/L (22-30); Chloride 101 mmol/L (98-107); Estimated CRCL calculation 74 ml/min; Estimated Glomerular Filt Rate > 60; Glucose 142 mg/dL (65-110); Magnesium 2.1 mg/dL (1.6-2.3); Phosphorus 3.3 mg/dL (2.5-4.5); Potassium 3.8 mmol/L (3.4-5.0); Sodium 136 mmol/L (137-145)
[2024-06-05 06:44] LABS: Anisocytosis 1+; Ovalocytes 1+; Platelet Estimate Adequate (Adequate); Schistocytes None Seen
[2024-06-05 06:59] LABS: Procalcitonin 0.5 ng/mL
[2024-06-05] MEDS: BUDESONIDE RESPULE NEB 0.5 MG/2 ML AMP INHALATION ×2 (08:23→21:00)
[2024-06-05] MEDS: METOPROLOL TARTRATE 50 MG TAB PO ×2 (08:41→20:54)
[2024-06-05] MEDS: oxyCODONE HCL (*CRX) 40 MG TAB SR 12HR PO ×2 (08:42→20:53)
[2024-06-05] MEDS: LINEZOLID 600 MG TABLET PO ×2 (08:42→20:53)
[2024-06-05] MEDS: PANTOPRAZOLE 40 MG TABLET PO ×2 (08:42→20:54)
[2024-06-05] MEDS: PREGABALIN (*CRX) 75 MG CAPSULE 225 MG PO ×2 (08:42→16:32)
[2024-06-05] MEDS: CYANOCOBALAMIN 500 MCG TABLET PO (08:42)
[2024-06-05] MEDS: levoFLOXacin 750 MG TABLET PO (08:42)
[2024-06-05] MEDS: LORazepam (*CRX) 0.5 MG TABLET PO ×3 (08:43→20:53)
[2024-06-05] MEDS: guaiFENesin 12 HR 600 MG TABCR 1200 MG PO ×2 (08:43→20:54)
[2024-06-05] MEDS: FOLIC ACID 1 MG TABLET PO (08:44)
[2024-06-05] MEDS: CYANOCOBALAMIN 1,000 MCG TABLET 2000 MCG PO (08:44)
[2024-06-05] MEDS: TAMSULOSIN HCL 0.4 MG CAPSULE PO (08:44)
[2024-06-05] MEDS: CEFEPIME 2 GM/NS 50 ML 2 GM/50 ML BAG IVPB ×2 (08:45→16:31)
[2024-06-05] MEDS: oxyCODONE HCL (*CRX) 5 MG TAB IR PO ×2 (08:47→14:38)
[2024-06-05] MEDS: FLUTICASONE PROPIONATE 0.05% NA SPR 16 GM BTL (*BKC) 1 SPRAY NASAL ×2 (08:49→20:55)
--- NOTE | 2024-06-05 09:42 | P.PNPL_ITS ---
Progress Note: A&P Assessment and Plan (1) Pneumonia: Qualifiers: Pneumonia type: due to unspecified organism Laterality: right Lung location: lower lobe of lung Qualified Code(s): J18.9 - Pneumonia, unspecified organism Code(s): J18.9 - Pneumonia, unspecified organism Status: Acute Assessment and Plan: Patient has been admitted multiple times to the hospital over the last 6 months and treated with various antibiotics. He is immunosuppressed receiving chemotherapy. he was admitted with 1 blood cultures showing oxacillin resistant Staph epidermidis and another blood should culture showing oxacillin resistant Staph hominis. Initial COVID, influenza RSV swab negative. he presents with chills, sweats, worsening shortness of breath, wheezing and change in his phlegm. He was neutropenic on arrival. patient has been treated with Neupogen and is no longer neutropenic with a white blood cell count of 7.1. He is afebrile. Clinically he has improved from 10% at his baseline to currently 50% today. He continues to have unchanged chills and sweats his phlegm is improved to dark yellow with a normal volume today. chest x-ray today with worsening left mid lung infiltrate and CT scan today with unchanged right upper lobe consolidation and new left upper lobe and lower lobe infiltrates consistent with pneumonia. These are new since 05/09/2024. Patient has received multiple antibiotics including ceftriaxone and azithromycin on 05/28, vancomycin 05/29 through 06/02, levofloxacin 05/29 to current, and linezolid started 06/02 to current. Etiology includes infection ( bacterial, viral, doubt fungal or mycobacterial), cancer, doubt fluid overload. Plan: I will repeat blood cultures. I will continue vanco and linezolid for total 10 days (day 7) and levofloxacin for total 10 days (day 7). I will add cefepime. I will repeat COVID, influenza RSV. I will send a respiratory pathogen panel to [facility]. I will check urine Legionella and urine pneumococcal. I will send a serum mycoplasma IgM. I will send a QuantiFERON gold. Patient with Beatriz in his phlegm, I do not believe this is candidal pneumonia at this time. I will check a chest x-ray, and procalcitonin on 06/05/2024. 06/05/2024. Overall patient feels clinically the same. States he has 50% back to his baseline with some dyspnea on exertion. Currently the patient is on 4 L nasal cannula saturations 99%. White blood cell count 4.7, creatinine 1.0, procalcitonin 0.5. CRP 7.6. Chest x-ray with right upper lobe infiltrate and left mid lung and lower lung infiltrate stable compared with 06/02/2024. Repeat COVID, influenza and RSV RT PCR negative. Plan: clinically stable. Continue vanco and now linezolid, day 8. Continue levofloxacin day 8. Continue cefepime day 2. Respiratory pathogen panel, urine Legionella, urine pneumococcal, QuantiFERON gold and serum IgM mycoplasma pending Discussed with Dr. Chase, will follow with you. (2) COPD (chronic obstructive pulmonary disease): Code(s): J44.9 - Chronic obstructive pulmonary disease, unspecified Status: Chronic Assessment and Plan: GOLD grade 2 group E COPD Patient with 80 pack year tobacco use, quit in 2019. 08/05/2018 PFTs with FEV1 is 2.33 L, 66% predicted, no bronchodilator response, air trapping, hyperinflat ion, normal DLCO. CT scan 06/04/2024 with mild apical predominant paraseptal emphysema. chronic hypoxemic respiratory failure on 3.5 L at rest and with sleep and 4 with activity. patient is followed at [facility] and maintained on Advair, budesonide nebulizer and albuterol nebulizer.. 06/04/2024: Patient is being treated for pneumonia. He has no evidence of a COPD exacerbation. Patient has exertional tachycardia with his AFib at a rate of 130 when he returned from the bathroom today. His saturations were 98 on 4 L. Plan: Given his exertional tachycardia I will place him on nebulized ipratropium 0.5 mg q.6 hours, nebulized budesonide 500 mcg twice a day and discontinue his albuterol. If the patient has any worsening bronchospasm will restart levalbuterol. I do not feel he needs systemic steroids at this time. 06/05/24: Patient says he is breathing the same off of the beta agonists. He has no wheezing. Plan: Continue nebulized budesonide 500 twice a day and nebulized ipratropium q.6 hours. (3) Adenocarcinoma, lung: Qualifiers: Laterality: right Qualified Code(s): C34.91 - Malignant neoplasm of unspecified part of right bronchus or lung Code(s): C34.90 - Malignant neoplasm of unspecified part of unspecified bronchus or lung Status: Chronic Assessment and Plan: regarding his lung cancer this was diagnosed in June of 2018 with a right upper lobe biopsy. Status post radiation therapy 12/18/2018. Status post XRT 03/10/2022. Patient currently on his 3rd line of chemotherapy and has received 3 cycles of Taxotere and cyrmza per Dr. Baez, the last of which was on 05/21/2024. Plan was to repeat a CT scan in June 2024 after his 4th cycle. Plan: Per oncology note on 05/30/2024 the plan was to hold off on a CT scan until June of 2024. Repeat CT scan now without change of right upper lobe consolidation. (4) Atrial fibrillation: Code(s): I48.91 - Unspecified atrial fibrillation Status: Acute Assessment and Plan: Patient tells me at home when he walks his heart rate goes to 130. Patient walked from the bathroom to his bed on 4 L nasal cannula on 06/04/2024 and a returning to the bed his heart rate was 130. Plan: I will discontinue beta agonist at this time. Patient is receiving Lasix per hospitalist. Patient is on metoprolol 50 mg p.o. q.day. further management per hospitalist team. Subjective Date/time seen: 06/05/24 09:42 Interval history: 06/04/2024: This is a new pulmonary consult for COPD, lung cancer, pneumonia. 63-year-old with a history of COPD, metastatic lung cancer to the bone, anxiety, atrial fibrillation on rivaroxaban, right upper extremity DVT and PE in 12/2018. regarding his lung cancer this was diagnosed in June of 2018 with a right upper lobe biopsy. Status post radiation therapy 12/18/2018. Status post XRT 03/10/2022. Patient currently on his 3rd line of chemotherapy and has received 3 cycles of Taxotere and cyrmza per Dr. Baez, the last of which was on 05/21/2024. Plan was to repeat a CT scan in June 2024 after his 4th cycle. Regarding his COPD. The patient is on home oxygen 3.5 L at rest and with sleep and 3 and half to 4 L with activity. The patient is limited in his activity at room to room mainly because his heart rate goes to 130 and then he breathes fast. At baseline he produces yellow phlegm 1 to 2 times a day. He takes albuterol nebulizer, budesonide nebulizer twice a day, Advair as an outpatient. He follows with Marti Shaffer, Dr. Leroy and last saw him 3 months ago. Patient has been in the hospital monthly for the last 6 months. Last admitted 05/09 through 05/17/2024 with neutropenic fever, epistaxis and treated for pneumonia. He says that he did improve when he left. Patient was back to his baseline and on 05/25/2024 he developed increasing shortness of breath at rest and with exertion, wheezing, increased volume and change in color of his phlegm from yellow to dark mireles. He denied any cough. He was also having chills, sweats but no fever was documented. Symptoms progressed and patient presented to the emergency department on 05/28/2024 with a white blood cell count of 1.8, platelets 100, creatinine 0.9, COVID, influenza, RSV swab RT PC are negative, MRSA swab negative. Blood cultures were obtained and 1 grew out oxacillin resistant Staph epi and 1 grew out oxacillin resistant Staph hominis. Patient was initially treated with ceftriaxone and azithromycin on 05/28, vancomycin on 05/29 and levofloxacin was started on 05/29. Patient had a chest x-ray today that showed worsening left mid lung field infiltrates. CT scan of the chest shows right upper lobe consolidation that is unchanged and new left lower lobe infiltrates. Since patient was admitted he says that he is improved. When he presented he self he was 10% of his normal and now he says he has 50% back to his normal. The phlegm is now dark yellow. He continues to have chills and sweats but no documented fever. Beta minute patient had a sputum sample that g stain showed few white blood cells, moderate mixed bacterial gloria and yeast. I called laboratory to identify this used and it has returned Beatriz albicans. 06/04/2024: Patient was in the bathroom and when he walked from the bathroom to his bed on 4 L nasal cannula his saturations remained 98% and his heart rate was 130. He had dyspnea on exertion with this activity. His white blood cell count is 7.1, creatinine is 1.0. 06/05/2024. Overall patient feels clinically the same. States he has 50% back to his baseline with some dyspnea on exertion. Currently the patient is on 4 L nasal cannula saturations 99%. White blood cell count 4.7, creatinine 1.0, procalcitonin 0.5. CRP 7.6. Chest x-ray with right upper lobe infiltrate and left mid lung and lower lung infiltrate stable compared with 06/02/2024. Repeat COVID, influenza and RSV RT PCR negative. DATA: 06/04/24 EXAMINATION:CT diagnostic chest wo con INDICATION: Worsening pneumonia. TECHNIQUE: Computed tomography (CT) of the chest was performed without intravenous contrast. Automated exposure control and iterative reconstruction technique were employed. The dose-length product (DLP) was 282.17 mGy-cm. COMPARISON: Chest CT 05/09/2024 FINDINGS: There are airspace opacities with volume loss involving right upper lobe and right perihilar region, consistent with radiation fibrosis. There is mild emphysema. There are patchy groundglass opacities with small airspace opacity component and septal thickening involving the left upper lobe and left lower lobe, consistent with pneumonia. There are small pleural effusions. The heart size is normal. There are coronary artery calcifications. No pericardial effusion. There is a left internal jugular port with tip at superior cavoatrial junction. There are changes of cholecystectomy. There is mild bilateral gynecomastia. Epidural electrodes are noted. There are scattered sclerotic lesions of bone. IMPRESSION: 1. Worsened left lung disease, consistent with pneumonia. 2. 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 3. Small pleural effusions. 4. Mild emphysema. 5. Sclerotic lesions of bone, consistent with metastatic disease. * 05/09/24CXR; Persistent volume loss in the right hemithorax and unchanged consolidation in the posterior right mid to upper lung zone and at the posterior right lower lung zone, bladder likely due at least in part to a small right pleural effusion. Lung remains clear. No pneumothorax or left-sided pleural effusion. Arch size is normal. Median sternotomy wires and mediastinal surgical clips are seen, likely from prior coronary artery bypass grafting. Left internal jugular central venous port catheter with distal tip at the caudal superior vena cava. Spinal stimulator leads extend the length of the visualized lower cervical to upper lumbar central canal with lead tips terminating in the upper cervical spine on the prior radiographs. There also appears. The tip of a intrathecal catheter projects over the posterior central canal of the lower thoracic spine. IMPRESSION: 1. Persistent volume loss with chronic opacities in the posterior right mid to upper lung zone on CT. 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 2. No recent interval change in a small right pleural effusion with associated compressive atelectasis in the right lower lobe. 3. Difficult to absolutely exclude superimposed pneumonia however there are no new opacities to more specifically suggest this. * 05/09/2024; CTA No pulmonary embolism. Small bilateral pleural effusions. Increased size of a region of consolidation at the posterior right lower lobe with subtle surrounding tree-in-bud opacities suggestive of pneumonia superimposed over chronic atelectasis/scarring. Similar there are new small centrilobular groundglass opacities and tree-in-bud opacities in the right upper and middle lung at the periphery of an unchanged region of consolidation with volume loss and architectural distortion at the posterior right upper lung likely related to radiation fibrosis for reported prior lung cancer. New small patchy region of groundglass opacity and a few small centrilobular nodules at the junction of the lingula and left upper lobe also suspicious for pneumonia. There are a few unchanged larger and more solid-appearing subcentimeter pulmonary nodules most prominent in the left lower lobe suspicious for metastatic disease. No pulmonary edema or pneumothorax. Heart size is normal but shifted towards the right due to the volume loss in the right lung. No pericardial effusion. Left internal jugular central venous port catheter with distal tip at the superior cavoatrial junction. Thoracic aorta is normal in caliber with no dissection. No pathologically enlarged thoracic lymphadenopathy. Cholecystectomy clips at the gallbladder fossa. Diffuse hepatic steatosis. Median sternotomy. Scattered patchy sclerotic bone lesions most prominent in the lower thoracic spine consistent with metastatic disease. Distal tip of an intrathecal catheter likely for pain management in the posterior central canal at the level of T9. There are spinal stimulator leads entering the central canal at level of T12-L1 which extend through the thoracic and lower cervical central canal extending beyond the cephalad margin of the field of imaging. IMPRESSION: 1. No pulmonary embolism. 2. Bilateral scattered mild new lung disease, composed predominantly of tree-in-bud opacities and small groundglass opacities suspicious for pneumonia 3. Unchanged small right and new small left pleural effusions. 4. A couple regions of chronic consolidation with volume loss in the right mid to upper lung and right lower lung likely atelectasis/scarring related to reported treated lung cancer. 5. Unchanged scattered subcentimeter solid pulmonary nodules and scattered patchy sclerotic bone lesions consistent with metastatic disease. 05/15/2022 EXAMINATION: CTA chest PE protocol INDICATION: Shortness of breath and cough. Right chest pain. COMPARISON: Chest CT 04/22/2022 FINDINGS: There are airspace and groundglass opacities with volume loss and architectural distortion involving right upper lobe and perihilar right lower lobe. There are patchy groundglass opacities in basilar right lower lobe. There are patchy groundglass opacities in left upper lobe. There is a small right pleural effusion. The heart size is normal. There is a left internal jugular port with tip in right atrium. There is no pulmonary embolus. There are changes of cholecystectomy. There are scattered sclerotic lesions of bone, consistent with metastatic disease. Median sternotomy wires are noted. IMPRESSION: 1. No pulmonary embolus. 2. Airspace and groundglass opacities with volume loss and architectural distortion involving right upper lobe and perihilar right lower lobe, consistent with primary bronchogenic carcinoma and changes of radiation therapy without or with superimposed pneumonia. 3. Groundglass opacities in right lower lobe and left upper lobe with improvement from 04/22/2022, which may be radiation pneumonitis or pneumonia. 4. Stable small right pleural effusion. 5. Scattered sclerotic lesions of bone, consistent with metastatic disease. 04/22/2022 EXAMINATION: CTA chest PE protocol INDICATION: Shortness of breath. Dyspnea. History of pulmonary embolism. History of lung cancer metastatic to lymph nodes and bone COMPARISON: 04/22/2022 portable AP chest 12/29/2021 CT pulmonary scan FINDINGS: There is diminished size of the large right posterior perihilar lung mass since 12/29/2021. Residual tumor and extensive surrounding right upper lobe and superior segment right lower lobe infiltrate are noted. There is mild right pleural effusion. There are patchy groundglass infiltrates scattered in the left upper lobe and right lower lobe. Normal heart size. No pericardial effusion. No thoracic aortic aneurysm or dissection. No pulmonary embolism is detected. Status post sternotomy. There are scattered osteosclerotic lesions of the cervical and thoracic spine, suggesting metastatic disease. Consider lung and possibly prostate skeletal metastasis. IMPRESSION:? No evidence of pulmonary embolism Diminished size of right posterior perihilar lung mass since 12/29/2021. There is extensive infiltrate in the right upper lobe and superior segment right lower lobe and there are scattered patchy groundglass infiltrates in the right lower lobe and particularly left upper lobe No evidence of pulmonary embolism Osteoblastic skeletal metastases; consider prostate cancer skeletal metastases in addition to lung cancer metastases. 02/24/2022 Echo Summary ? 1. Left ventricular chamber dimension is normal. ? 2. Left ventricular systolic function is normal, estimated at 55-60%. ? 3. The left ventricular diastolic function is abnormal. ? 4. E/e' 10 is mildly elevated. ? 5. There is mild aortic valve sclerosis. ? 6. There is trace mitral valve regurgitation. ? 7. There is trace tricuspid valve regurgitation. Right Ventricle ? Right ventricular systolic function is normal and with normal TAPSE 1.8 cm. ? Right ventricular chamber dimension is normal. Right Atria ? Right atrial chamber dimension is normal. Atrial Septum ? Agitated saline injection with and without valsalva maneuver opacified right side cardiac chambers without shunt to left side cardiac chambers. ? Intact interatrial septum visualized by 2D and agitated saline imaging. Tricuspid Valve ? There is trace tricuspid valve regurgitation. ? RVSP is not calculated due to an inadequate TR jet. 08/05/2018 PFTs Findings: Spirometry: ? There is decreased maximal expiratory airflow at all lung volumes with concave expiratory flow tracing.? The contour the inspiratory flow tracing is normal.? The pre bronchodilator FVC is 4.44 L, 89% predicted.? The pre bronchodilator FEV1 is 2.33 L, 66% predicted.? The pre bronchodilator FEV1:? FVC ratio is 53%.? The post bronchodilator FVC is 4.51 L, representing a 2% increase.? The post bronchodilator FEV1 is 2.54 L, representing a 9% increase.? The post bronchodilator FEV1:? FVC ratio is 56%.? Plethysmography:? The total lung capacity is 9.12 L, 127% predicted.? The functional residual capacity is 5.35 L, 131% predicted.? The residual volume is 4.63 L, 188% predicted.? Plethysmography the diffusing capacity unadjusted for hemoglobin and carboxyhemoglobin is 19.3, 78% predicted.? The diffusing capacity adjusted for alveolar volume is 3.39, 86% predicted. My Impression: There is a moderate obstructive abnormality without significant improvement after inhaling a single dose of albuterol. The increase in residual volume is consistent with air trapping from an obstructive abnormality.? Hyperinflation is present as demonstrated by the increase in functional residual capacity and total lung capacity and is consistent with an obstructive abnormality. The diffusing capacity is normal. There are no prior studies for comparison Review of Systems Constitutional: Constitutional: Reports no additional constitutional complaints Eyes: Eyes: Reports no additional eye complaints ENT: Reports system reviewed and no additional complaints, except as documented Cardiovascular: Cardiovascular: Reports no additional cardiovascular complaints Respiratory: Respiratory: Reports no additional respiratory complaints Gastrointestinal: Gastrointestinal: Reports no additional gastrointestinal complaints Musculoskeletal: Musculoskeletal: Reports no additional musculoskeletal complaints Neurologic: Reports system reviewed and no additional complaints, except as documented Psychiatric: Psychiatric: Reports no additional psychiatric complaints Endocrine: Endocrine: Reports no additional endocrine complaints Hematologic/Lymphatic: Hematologic/Lymphatic: Reports no additional hematologic/lymphatic complaints Allergic/Immunologic: Allergic/Immunologic: Reports no additional allergic/immunologic complaints Exam Const: General: cooperative and comfortable Orientation/consciousness: oriented to person, oriented to place and oriented to time HENMT: Head: normal to inspection Ears: hearing grossly normal bilaterally Eyes: General: appearance normal, both eyes and all related structures Neck: Neck: normal visual inspection Chest: Chest palpation & inspection: normal inspection of the chest Resp: Effort & Inspection: normal respiratory effort and able to speak in complete sentences Auscultation: no crackles, no rales, no rhonchi, no wheezes and diminished lung sounds Other: Right upper lobe decreased breath sounds. Cardio: Jugular venous distension: no JVD GI: Inspection: normal to inspection Skin: General skin exam: normal color Neuro: General: oriented to person, oriented to place and oriented to time Extrem: General: normal to inspection and edema Psych: Appearance: grossly normal Objective Data Vital Signs Vital Signs: Vital Signs - 24 hr 06/04/24 12:00 06/04/24 13:42 06/04/24 14:23 Temperature 36.8 C Pulse Rate 94 102 H 114 H Respiratory Rate 19 18 Blood Pressure 107/70 Pulse Oximetry 99 Oxygen Delivery Oxygen Flow Rate Fraction of Inspired Oxygen 06/04/24 14:35 06/04/24 16:05 06/04/24 16:07 Temperature Pulse Rate 105 H 106 H Respiratory Rate 18 Blood Pressure Pulse Oximetry Oxygen Delivery Oxygen Flow Rate Fraction of Inspired Oxygen 06/04/24 20:00 06/04/24 20:00 06/04/24 21:08 Temperature Pulse Rate 53 L 98 Respiratory Rate 16 Blood Pressure Pulse Oximetry 100 99 Oxygen Delivery Nasal Cannula Nasal Cannula Oxygen Flow Rate 3 4 Fraction of Inspired Oxygen 32 06/04/24 21:08 06/04/24 21:21 06/04/24 21:30 Temperature 36.8 C Pulse Rate 97 93 53 L Respiratory Rate 18 18 16 Blood Pressure 100/51 L Pulse Oximetry 100 Oxygen Delivery Oxygen Flow Rate Fraction of Inspired Oxygen 06/05/24 00:00 06/05/24 02:28 06/05/24 02:36 Temperature Pulse Rate 84 87 79 Respiratory Rate 20 18 Blood Pressure Pulse Oximetry Oxygen Delivery Oxygen Flow Rate Fraction of Inspired Oxygen 06/05/24 04:00 06/05/24 06:00 06/05/24 08:25 Temperature 36.0 C L Pulse Rate 94 113 H Respiratory Rate 16 Blood Pressure 98/56 L Pulse Oximetry 93 97 Oxygen Delivery Nasal Cannula Oxygen Flow Rate 4 Fraction of Inspired Oxygen 36 06/05/24 08:25 06/05/24 08:41 06/05/24 08:41 Temperature Pulse Rate 102 H 103 H 99 Respiratory Rate 18 18 Blood Pressure Pulse Oximetry Oxygen Delivery Oxygen Flow Rate Fraction of Inspired Oxygen 06/05/24 09:03 Temperature Pulse Rate Respiratory Rate Blood Pressure Pulse Oximetry Oxygen Delivery Nasal Cannula Oxygen Flow Rate 4 Fraction of Inspired Oxygen Intake/Output Intake/Output: Intake & Output 06/02/24 06/03/24 06/04/2419/24 23:59 23:59 23:59 23:59 Intake Total 1510 2610 1201 500 Output Total 800 Balance 1510 2610 401 500 Meds/Results Medications: Active Medications Generic Name Dose Route Start Last Admin Trade Name Freq PRN Reason Stop Dose Admin Acetaminophen 650 mg 05/28/24 07:51 06/05/24 04:10 Acetaminophen 325 Mg Tablet PO 650 mg Q4H PRN Administration Mild Pain (1-3) or Fever Budesonide 0.5 mg 06/04/24 08:00 06/05/24 08:23 Budesonide Respule Neb 0.5 Mg/2 Ml Amp INHALATION 0.5 mg Q12HRT JESSICA Administration Lidocaine HCl 30 ml/ Al Hydrox 0 ml 05/29/24 10:08 06/02/24 16:14 /Mg Hydrox/Simethicone 30 ml/ PO 5 ml Diphenhydramine HCl 75 mg Q4HWA PRN Administration mouth soreness Cyanocobalamin 2,000 mcg 05/30/24 09:00 06/05/24 08:44 Cyanocobalamin 1,000 Mcg Tablet PO 2,000 mcg QAM JESSICA Administration Cyanocobalamin 500 mcg 05/30/24 09:00 06/05/24 08:42 Cyanocobalamin 500 Mcg Tablet PO 500 mcg QAM JESSICA Administration Ergocalciferol 50,000 units 06/02/24 09:00 06/02/24 08:03 Ergocalciferol 50,000 Units Capsule PO 50,000 units WEEKLY JESSICA Administration Ferrous Sulfate 325 mg 05/31/24 12:00 06/04/24 13:02 Ferrous Sulfate [address] PO 325 mg DAILY@1200 JESSICA Administration Fluticasone Propionate 1 spray 05/29/24 10:30 06/05/24 08:49 Fluticasone Propionate 0.05% Na Spr 16 Gm Btl (*Bkc) NASAL 1 spray Q12HR JESSICA Administration Folic Acid 1 mg 05/30/24 09:00 06/05/24 08:44 Folic Acid 1 Mg Tablet PO 1 mg DAILY JESSICA Administration Furosemide 40 mg 06/04/24 17:00 06/04/24 16:07 Furosemide Inj 40 Mg/4 Ml Vial IV PUSH 40 mg BID JESSICA Administration Guaifenesin 1,200 mg 05/29/24 21:00 06/05/24 08:43 Guaifenesin 12 Hr 600 Mg Tabcr PO 1,200 mg Q12HR JESSICA Administration Heparin Sodium (Beef Lung) 50 units 05/28/24 09:00 06/05/24 08:49 Heparin Flush 50 Units/5 Ml Syringe IV PUSH Not Given QAM JESSICA Heparin Sodium (Beef Lung) 50 units 05/28/24 07:25 Heparin Flush 50 Units/5 Ml Syringe IV PUSH PRN PRN after intermittent infusion Heparin Sodium (Beef Lung) 50 units 05/28/24 07:25 Heparin Flush 50 Units/5 Ml Syringe IV PUSH PRN PRN after blood draws Heparin Sodium (Porcine) 500 units 05/28/24 07:25 06/04/24 13:16 Heparin Sodium Lock Flush 500 Units/5 Ml Syringe IV PUSH 500 units PRN PRN Administration see comments below Cefepime HCl 2 gm in 50 mls @ 100 mls/hr 06/04/24 16:00 06/05/24 08:45 Maxipime 2 Gm/Ns 50 Ml IVPB 100 mls/hr Q8H JESSICA Administration Ipratropium [place] 0.5 mg 06/04/24 20:00 06/05/24 08:24 Ipratropium Br 0.02% Inh Soln 0.5 Mg/2.5 Ml Vial INHALATION 0.5 mg Q6HRT JESSICA Administration Levalbuterol HCl 0.63 mg 06/04/24 16:38 Levalbuterol Neb 1.25 Mg/3 Ml INHALATION Q6HRT PRN Wheezing Levofloxacin 750 mg 05/31/24 09:00 06/05/24 08:42 Levofloxacin 750 Mg Tablet PO 06/06/24 23:59 750 mg DAILY JESSICA Administration Linezolid 600 mg 06/02/24 20:00 06/05/24 08:42 Linezolid 600 Mg Tablet PO 06/07/24 21:01 600 mg Q12HR JESSICA Administration Lorazepam 0.5 mg 05/31/24 13:03 06/05/24 08:43 Lorazepam (*Crx) 0.5 Mg Tablet PO 0.5 mg Q6H PRN Administration Anxiety Metoprolol Tartrate 50 mg 06/04/24 21:00 06/05/24 08:41 Metoprolol Tartrate 50 Mg Tab PO 50 mg Q12HR JESSICA Administration Ondansetron HCl 4 mg 05/28/24 07:51 05/30/24 08:35 Ondansetron Inj 4 Mg/2 Ml Vial IV PUSH 4 mg Q4H PRN Administration Nausea Oxycodone HCl 5 mg 05/28/24 14:20 06/05/24 08:47 Oxycodone Hcl (*Crx) 5 Mg Tab Ir PO 5 mg Q6H PRN Administration Breakthrough Pain Oxycodone HCl 40 mg 05/29/24 21:00 06/05/24 08:42 Oxycodone Hcl (*Crx) 40 Mg Tab Sr 12hr PO 40 mg Q12H JESSICA Administration Pantoprazole Sodium 40 mg 05/29/24 21:00 06/05/24 08:42 Pantoprazole 40 Mg Tablet PO 40 mg Q12HR JESSICA Administration Pregabalin 225 mg 05/29/24 17:00 06/05/24 08:42 Pregabalin (*Crx) 75 Mg Capsule PO 225 mg BID JESSICA Administration Rivaroxaban 20 mg 05/28/24 17:00 06/04/24 16:06 Rivaroxaban 20 Mg Tablet PO 20 mg DAILY@1700 JESSICA Administration Senna/Docusate Sodium 1 tab 05/30/24 12:23 06/04/24 16:06 Senna/Docusate Sodium Tablet PO 1 tab DAILY PRN Administration constipation Sodium Chloride 10 ml 05/28/24 14:00 06/05/24 04:09 Central Line Flush IV PUSH Not Given Q8HR JESSICA Sodium Chloride 1 spray 05/28/24 10:14 05/30/24 20:05 Saline 0.65% Demetris Soln 44 Ml Btl NASAL 1 spray Q2H PRN Administration Congestion Sodium Chloride 1 applic 06/02/24 14:47 Sodium Chloride Nasal Gel 14.1 Gm NASAL QID PRN Dry Nasal Passages Tamsulosin HCl 0.4 mg 05/30/24 09:00 06/05/24 08:44 Tamsulosin Hcl 0.4 Mg Capsule PO 0.4 mg DAILY JESSICA Administration Radiology Results: ITS Impressions Chest CT 06/04/24 14:52 IMPRESSION: 1. Worsened left lung disease, consistent with pneumonia. 2. 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 3. Small pleural effusions. 4. Mild emphysema. 5. Sclerotic lesions of bone, consistent with metastatic disease. Chest X-Ray 06/05/24 06:05 Impression: Small right pleural effusion. Stable hazy right upper lobe airspace disease, suggestive of post radiation change based on recent CT. Hazy airspace disease left perihilar region and left lung base, suspicious for pneumonia. Stable Mediport. Labs Labs: Laboratory Results - last 24 hr 06/04/24 06/04/24 06/05/24 05:02 16:24 05:55 WBC 4.7 RBC 3.16 L Hgb 8.2 L Hct 27.5 L MCV 87.0 MCH 25.9 L MCHC 29.8 L RDW 21.5 H Plt Count 124 L MPV 12.2 H Immature Gran % (Auto) 1.5 H Neut % (Auto) 62.5 Lymph % (Auto) 24.0 [place] % (Auto) 9.7 H Eos % (Auto) 1.9 Baso % (Auto) 0.4 Lymph # (Auto) 1.12 [place] # (Auto) 0.5 Eos # (Auto) 0.1 Baso # (Auto) 0.0 Abs Immat Gran (auto) 0.07 H Absolute Neuts (auto) 2.9 Absolute Nucleated RBC 0.000 Nucleated RBC % 0.0 Platelet Estimate Adequate Anisocytosis 1+ Ovalocytes 1+ Schistocytes None seen Sodium 136 L Potassium 3.8 Chloride 101 Carbon Dioxide 31 H Anion Gap 4 BUN 16 Creatinine 1.00 Estim Creat Clear Calc 74 Estimated GFR > 60 Glucose 142 H Calcium 7.9 L Phosphorus 3.3 Magnesium 2.1 Total Bilirubin 0.3 AST 16 L ALT 10 Alkaline Phosphatase 79 C-Reactive Protein 7.6 H NT-Pro-B Natriuret Pep 1050 H Total Protein 6.0 L Albumin 2.9 L Procalcitonin 0.5 Influenza A (RT-PCR) Negative Influenza B (RT-PCR) Negative RSV (RT-PCR) Negative SARS-CoV-2 RNA (RT-PCR) Negative
[2024-06-05] MEDS: FERROUS SULFATE 325 MG TABLET DR PO (12:46)
--- NOTE | 2024-06-05 12:51 | PM.IMPN ---
Progress Note: A&P Assessment and Plan (1) Pneumonia: Code(s): J18.9 - Pneumonia, unspecified organism Status: Acute Assessment and Plan: Patient here for SOB. CXR showing new LLL airspace disease. No fevers. He was neutropenic on admission with ANC at 1000. Influenza, RSV and COVID PCR were negative. IgG and IgM levels were low. MRSA nasal swab was negative. No urine studies obtained. BCx collected and he was given Rocephin and Azithro once. Vanco and Levaquin added. Oncology consulted and he was started on Neupogen. WBC has normalized now. Vanco 05/29-06/02 then changed to Linezolid. Levaquin started 05/28. BCx grew Staph Epi in one aerobic bottle and Staph hominis in one anaerobic bottle both sensitive to Vanco. 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 Currently on oral Levaquin and Linezolid. Cefepime added. Patient still not feeling well. WBC normal and no fevers. Remains stable on his home 3-4L O2. Pulmonary consulted and appreciate their input. TB testing with other Ag markers ordered. Yeast in sputum may be from oral lesions. Treat for stomatitis. Continue vest therapy. BNP 1050 with leg edema so started on Lasix IV but BP soft so this was held. (2) Bacteremia: Code(s): R78.81 - Bacteremia Status: Acute Assessment and Plan: As above (3) CHF (congestive heart failure): Code(s): I50.9 - Heart failure, unspecified Status: Acute Assessment and Plan: Leg mildly edematous. BNP 1050. Consider acute on chronic diastolic CHF. Echo as below. He has been getting prn IV Lasix. We scheduled IV Lasix but BP soft so this was held Continue compression hose. (4) Pancytopenia: Code(s): D61.818 - Other pancytopenia Status: Acute Assessment and Plan: As above. WBC normal. Plt count has dropped again but still about 100K. Follow (5) Chronic respiratory failure with hypoxia, on home oxygen therapy: Code(s): J96.11 - Chronic respiratory failure with hypoxia; Z99.81 - Dependence on supplemental oxygen Status: Acute Assessment and Plan: ABG on admission with 7.44/36/96 on 4L. He has chronic hypoxic respiratory failure requiring 3.5-4L chronically. His oxygen requirement remains stable and at his baseline. Follow (6) Atrial fibrillation with RVR: Code(s): I48.91 - Unspecified atrial fibrillation Status: Acute Assessment and Plan: Patient with hx of AFib s/p failed ablation in the past. Presented with AFib with RVR but EKG showing sinus tachycardia but with considerable artifact. Metoprolol continued and dose increased. Heart rate was still elevated so Albuterol was stopped. HR better now. Follow on tele. Check EKG Continue Lopressor at current dose. Continue Xarelto. 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 Followed by Dr. Parson at [facility]. Echo 05/29/24 showing EF 55-60%, hypokinesis inferoseptal segment and normal left atria. (8) Adenocarcinoma, lung: Qualifiers: Laterality: right Qualified Code(s): C34.91 - Malignant neoplasm of unspecified part of right bronchus or lung Code(s): C34.90 - Malignant neoplasm of unspecified part of unspecified bronchus or lung Status: Chronic Assessment and Plan: Patient with non-small cell carcinoma diagnosed June 2018. he follows with Dr. Baez and Dr. Cavazos Status post XRT in 2018 and again in fall 2021 due to recurrence. Now with metastatic disease to lymph nodes and bone. He is currently receiving chemotherapy Imaging showing radiation fibrosis RUL and right louise-hilar region as well as scattered sclerotic bone lesions consistent with mets. He is full code. (9) Pleural effusion on right: Code(s): J90 - Pleural effusion, not elsewhere classified Status: Acute Assessment and Plan: CT scan showing small bilateral pleural effusions. Monitor Plan History of DVT on Xarelto Code status full code Subjective Date/time seen: 06/05/24 12:51 Interval history: 63yo male with HTN, AFib, ch respiratory failure on 3L, COPD, hx of DVT/PE and stage IV lung cancer here for SOB. He complains of mouth pain and pasin with swallowing. No CP. Cough productive of yellow sputum. SOB unchanged. Exam Narrative: AF 96.8 100/69 103 18 97% 4L Gen - NARD HEENT - small reddish patches palate but no obvious thrush Chest - coarse BS. CV - irregularly irregular. Tele showing rate better controlled and possible sinus now Abd - Soft, NT/ND, Positive BS Ext - 1+ pedal edema with Gera hose in place. Psych - Nml mood and affect Skin - Warm and dry Objective Data Vital Signs Vital Signs: Vital Signs - 24 hr 06/04/24 13:42 06/04/24 14:23 06/04/24 14:35 Temperature 98.2 F Pulse Rate 102 H 114 H Respiratory Rate 19 18 18 Blood Pressure 107/70 Pulse Oximetry 99 Oxygen Delivery Oxygen Flow Rate Fraction of Inspired Oxygen 06/04/24 16:05 06/04/24 16:07 06/04/24 20:00 Temperature Pulse Rate 105 H 106 H 53 L Respiratory Rate 16 Blood Pressure Pulse Oximetry 100 Oxygen Delivery Nasal Cannula Oxygen Flow Rate 3 Fraction of Inspired Oxygen 32 06/04/24 20:00 06/04/24 21:08 06/04/24 21:08 Temperature Pulse Rate 98 97 Respiratory Rate 18 Blood Pressure Pulse Oximetry 99 Oxygen Delivery Nasal Cannula Oxygen Flow Rate 4 Fraction of Inspired Oxygen 06/04/24 21:21 06/04/24 21:30 06/05/24 00:00 Temperature 98.3 F Pulse Rate 93 53 L 84 Respiratory Rate 18 16 Blood Pressure 100/51 L Pulse Oximetry 100 Oxygen Delivery Oxygen Flow Rate Fraction of Inspired Oxygen 06/05/24 02:28 06/05/24 02:36 06/05/24 04:00 Temperature Pulse Rate 87 79 94 Respiratory Rate 20 18 Blood Pressure Pulse Oximetry Oxygen Delivery Oxygen Flow Rate Fraction of Inspired Oxygen 06/05/24 06:00 06/05/24 08:20 06/05/24 08:20 Temperature 96.8 F L Pulse Rate 113 H Respiratory Rate 16 Blood Pressure 98/56 L 100/69 Pulse Oximetry 93 97 Oxygen Delivery Nasal Cannula Oxygen Flow Rate 3 Fraction of Inspired Oxygen 06/05/24 08:25 06/05/24 08:25 06/05/24 08:41 Temperature Pulse Rate 102 H 103 H Respiratory Rate 18 Blood Pressure Pulse Oximetry 97 Oxygen Delivery Nasal Cannula Oxygen Flow Rate 4 Fraction of Inspired Oxygen 36 06/05/24 08:41 06/05/24 09:03 Temperature Pulse Rate 99 Respiratory Rate 18 Blood Pressure Pulse Oximetry Oxygen Delivery Nasal Cannula Oxygen Flow Rate 4 Fraction of Inspired Oxygen Intake/Output Intake/Output: Intake & Output 06/02/24 06/03/24 06/04/24 06/05/24 23:59 23:59 23:59 23:59 Intake Total 1510 2610 1201 1059 Output Total 800 350 Balance 1510 2610 401 709 Meds/Results Medications: Active Medications Generic Name Dose Route Start Last Admin Trade Name Freq PRN Reason Stop Dose Admin Acetaminophen 650 mg 05/28/24 07:51 06/05/24 04:10 Acetaminophen 325 Mg Tablet PO 650 mg Q4H PRN Administration Mild Pain (1-3) or Fever Budesonide 0.5 mg 06/04/24 08:00 06/05/24 08:23 Budesonide Respule Neb 0.5 Mg/2 Ml Amp INHALATION 0.5 mg Q12HRT JESSICA Administration Lidocaine HCl 30 ml/ Al Hydrox 0 ml 05/29/24 10:08 06/02/24 16:14 /Mg Hydrox/Simethicone 30 ml/ PO 5 ml Diphenhydramine HCl 75 mg Q4HWA PRN Administration mouth soreness Cyanocobalamin 2,000 mcg 05/30/24 09:00 06/05/24 08:44 Cyanocobalamin 1,000 Mcg Tablet PO 2,000 mcg QAM JESSICA Administration Cyanocobalamin 500 mcg 05/30/24 09:00 06/05/24 08:42 Cyanocobalamin 500 Mcg Tablet PO 500 mcg QAM JESSICA Administration Ergocalciferol 50,000 units 06/02/24 09:00 06/02/24 08:03 Ergocalciferol 50,000 Units Capsule PO 50,000 units WEEKLY JESSICA Administration Ferrous Sulfate 325 mg 05/31/24 12:00 06/05/24 12:46 Ferrous Sulfate [address] PO 325 mg DAILY@1200 JESSICA Administration Fluticasone Propionate 1 spray 05/29/24 10:30 06/05/24 08:49 Fluticasone Propionate 0.05% Na Spr 16 Gm Btl (*Bkc) NASAL 1 spray Q12HR JESSICA Administration Folic Acid 1 mg 05/30/24 09:00 06/05/24 08:44 Folic Acid 1 Mg Tablet PO 1 mg DAILY JESSICA Administration Furosemide 40 mg 06/04/24 17:00 06/04/24 16:07 Furosemide Inj 40 Mg/4 Ml Vial IV PUSH 40 mg BID JESSICA Administration Guaifenesin 1,200 mg 05/29/24 21:00 06/05/24 08:43 Guaifenesin 12 Hr 600 Mg Tabcr PO 1,200 mg Q12HR JESSICA Administration Heparin Sodium (Beef Lung) 50 units 05/28/24 09:00 06/05/24 08:49 Heparin Flush 50 Units/5 Ml Syringe IV PUSH Not Given QAM JESSICA Heparin Sodium (Beef Lung) 50 units 05/28/24 07:25 Heparin Flush 50 Units/5 Ml Syringe IV PUSH PRN PRN after intermittent infusion Heparin Sodium (Beef Lung) 50 units 05/28/24 07:25 Heparin Flush 50 Units/5 Ml Syringe IV PUSH PRN PRN after blood draws Heparin Sodium (Porcine) 500 units 05/28/24 07:25 06/04/24 13:16 Heparin Sodium Lock Flush 500 Units/5 Ml Syringe IV PUSH 500 units PRN PRN Administration see comments below Cefepime HCl 2 gm in 50 mls @ 100 mls/hr 06/04/24 16:00 06/05/24 08:45 Maxipime 2 Gm/Ns 50 Ml IVPB 100 mls/hr Q8H JESSICA Administration Ipratropium [place] 0.5 mg 06/04/24 20:00 06/05/24 08:24 Ipratropium Br 0.02% Inh Soln 0.5 Mg/2.5 Ml Vial INHALATION 0.5 mg Q6HRT JESSICA Administration Levalbuterol HCl 0.63 mg 06/04/24 16:38 Levalbuterol Neb 1.25 Mg/3 Ml INHALATION Q6HRT PRN Wheezing Levofloxacin 750 mg 05/31/24 09:00 06/05/24 08:42 Levofloxacin 750 Mg Tablet PO 06/06/24 23:59 750 mg DAILY JESSICA Administration Linezolid 600 mg 06/02/24 20:00 06/05/24 08:42 Linezolid 600 Mg Tablet PO 06/07/24 21:01 600 mg Q12HR JESSICA Administration Lorazepam 0.5 mg 05/31/24 13:03 06/05/24 08:43 Lorazepam (*Crx) 0.5 Mg Tablet PO 0.5 mg Q6H PRN Administration Anxiety Metoprolol Tartrate 50 mg 06/04/24 21:00 06/05/24 08:41 Metoprolol Tartrate 50 Mg Tab PO 50 mg Q12HR JESSICA Administration Ondansetron HCl 4 mg 05/28/24 07:51 05/30/24 08:35 Ondansetron Inj 4 Mg/2 Ml Vial IV PUSH 4 mg Q4H PRN Administration Nausea Oxycodone HCl 5 mg 05/28/24 14:20 06/05/24 08:47 Oxycodone Hcl (*Crx) 5 Mg Tab Ir PO 5 mg Q6H PRN Administration Breakthrough Pain Oxycodone HCl 40 mg 05/29/24 21:00 06/05/24 08:42 Oxycodone Hcl (*Crx) 40 Mg Tab Sr 12hr PO 40 mg Q12H JESSICA Administration Pantoprazole Sodium 40 mg 05/29/24 21:00 06/05/24 08:42 Pantoprazole 40 Mg Tablet PO 40 mg Q12HR JESSICA Administration Pregabalin 225 mg 05/29/24 17:00 06/05/24 08:42 Pregabalin (*Crx) 75 Mg Capsule PO 225 mg BID JESSICA Administration Rivaroxaban 20 mg 05/28/24 17:00 06/04/24 16:06 Rivaroxaban 20 Mg Tablet PO 20 mg DAILY@1700 JESSICA Administration Senna/Docusate Sodium 1 tab 05/30/24 12:23 06/04/24 16:06 Senna/Docusate Sodium Tablet PO 1 tab DAILY PRN Administration constipation Sodium Chloride 10 ml 05/28/24 14:00 06/05/24 04:09 Central Line Flush IV PUSH Not Given Q8HR JESSICA Sodium Chloride 1 spray 05/28/24 10:14 05/30/24 20:05 Saline 0.65% Demetris Soln 44 Ml Btl NASAL 1 spray Q2H PRN Administration Congestion Sodium Chloride 1 applic 06/02/24 14:47 Sodium Chloride Nasal Gel 14.1 Gm NASAL QID PRN Dry Nasal Passages Tamsulosin HCl 0.4 mg 05/30/24 09:00 06/05/24 08:44 Tamsulosin Hcl 0.4 Mg Capsule PO 0.4 mg DAILY JESSICA Administration Radiology Results: ITS Impressions Chest CT 06/04/24 14:52 IMPRESSION: 1. Worsened left lung disease, consistent with pneumonia. 2. 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 3. Small pleural effusions. 4. Mild emphysema. 5. Sclerotic lesions of bone, consistent with metastatic disease. Chest X-Ray 06/05/24 06:05 Impression: Small right pleural effusion. Stable hazy right upper lobe airspace disease, suggestive of post radiation change based on recent CT. Hazy airspace disease left perihilar region and left lung base, suspicious for pneumonia. Stable Mediport. Labs Labs: Laboratory Results - last 24 hr 06/04/24 06/04/24 06/05/24 05:02 16:24 05:55 WBC 4.7 RBC 3.16 L Hgb 8.2 L Hct 27.5 L MCV 87.0 MCH 25.9 L MCHC 29.8 L RDW 21.5 H Plt Count 124 L MPV 12.2 H Immature Gran % (Auto) 1.5 H Neut % (Auto) 62.5 Lymph % (Auto) 24.0 [place] % (Auto) 9.7 H Eos % (Auto) 1.9 Baso % (Auto) 0.4 Lymph # (Auto) 1.12 [place] # (Auto) 0.5 Eos # (Auto) 0.1 Baso # (Auto) 0.0 Abs Immat Gran (auto) 0.07 H Absolute Neuts (auto) 2.9 Absolute Nucleated RBC 0.000 Nucleated RBC % 0.0 Platelet Estimate Adequate Anisocytosis 1+ Ovalocytes 1+ Schistocytes None seen Sodium 136 L Potassium 3.8 Chloride 101 Carbon Dioxide 31 H Anion Gap 4 BUN 16 Creatinine 1.00 Estim Creat Clear Calc 74 Estimated GFR > 60 Glucose 142 H Calcium 7.9 L Phosphorus 3.3 Magnesium 2.1 Total Bilirubin 0.3 AST 16 L ALT 10 Alkaline Phosphatase 79 C-Reactive Protein 7.6 H NT-Pro-B Natriuret Pep 1050 H Total Protein 6.0 L Albumin 2.9 L Procalcitonin 0.5 Influenza A (RT-PCR) Negative Influenza B (RT-PCR) Negative RSV (RT-PCR) Negative SARS-CoV-2 RNA (RT-PCR) Negative
--- NOTE | 2024-06-05 13:16 | ECG_ITS ---
Test Date: 2024-06-05 14:17:36 Measurements Intervals [place] Rate: 99 P: 258 RI: 113 QRS: 50 QRSD: 85 T: 50 QT: 332 QTc: 426 Interpretive Statements SINUS RHYTHM LOW QRS VOLTAGE IN PRECORDIAL LEADS [QRS DEFLECTION < 1.0 mV IN CHEST LEADS] Compared to ECG 05/28/2024 05:23:03 PACS NO LONGER PRESENT Electronically Signed On 06-06-2024 11:57:35 DISABILITY INSURANCE CLAIM EXAMINER by Rafael Vicente M.D.
[2024-06-05] MEDS: LIDOCAINE 2% VISC SOLN 30 ML, ALUMINUM/MAGNESIUM/SIMETH SUSP 30 ML, diphenhydrAMINE HCl... PO ×3 (13:29→20:56)
[2024-06-05] MEDS: LIDOCAINE/PRILOCAINE CREAM 2.5-2.5% TUBE 1 EACH TOPICAL (14:30)
[2024-06-05] MEDS: ACYCLOVIR 400 MG TABLET PO ×3 (14:39→20:54)
[2024-06-05] MEDS: FLUCONAZOLE 100 MG TABLET 400 MG PO (14:39)
[2024-06-05] MEDS: RIVAROXABAN 20 MG TABLET PO (16:32)
[2024-06-06] VITALS (20 sets, daily range): BP systolic 97–106; BP diastolic 52–63; PULSE 75–252; RESP 18–20; TEMP 36.1–36.6; O2SAT 95–100
[2024-06-06] MEDS: CEFEPIME 2 GM/NS 50 ML 2 GM/50 ML BAG IVPB ×3 (00:46→15:08)
[2024-06-06] MEDS: IPRATROPIUM BR 0.02% INH SOLN 0.5 MG/2.5 ML VIAL INHALATION ×4 (02:06→19:54)
[2024-06-06] MEDS: LIDOCAINE 2% VISC SOLN 30 ML, ALUMINUM/MAGNESIUM/SIMETH SUSP 30 ML, diphenhydrAMINE HCl... PO ×5 (05:51→22:31)
[2024-06-06] MEDS: CENTRAL LINE FLUSH 10 ML IV PUSH ×3 (05:53→22:32)
[2024-06-06] MEDS: LORazepam (*CRX) 0.5 MG TABLET PO ×3 (05:53→22:27)
[2024-06-06 07:19] LABS: Basophils Percent Auto 0.5 % (0.2-1.2); Eosinophils Absolute Auto 0.1 K/mm3 (0-0.3); Eosinophils Percent Auto 1.6 % (0-4.4); Hematocrit 28.6 % (42.0-52.0); Hemoglobin 8.5 g/dL (14.0-18.0); Immature Granulocyte Absolute 0.06 K/mm3 (0.00-0.031); Immature Granulocyte Percent A 1.4 % (0-0.5); Lymphocytes Absolute Auto 1.08 K/mm3 (0.9-3.2); Lymphocytes Percent Auto 24.3 % (18.3-44.2); Mean Corpuscular HGB Conc 29.7 g/dl (32-36); Mean Corpuscular Hemoglobin 26.3 pg (26-34); Mean Corpuscular Volume 88.5 fl (80-100); Mean Platelet Volume 11.4 fl (7.4-10.4); Monocytes Absolute Auto 0.5 K/mm3 (0.1-0.6); Monocytes Percent Auto 10.1 % (2.6-8.5); Neutrophils Absolute Auto 2.8 K/mm3 (1.3-6.7); Neutrophils Percent Auto 62.1 % (45.5-73.1); Platelet Count Result 146 k/mm3 (150-375); Red Blood Count 3.23 M/mm3 (4.6-6.20); Red Cell Distribution Width 21.3 % (11.5-14.5); White Blood Count 4.4 K/mm3 (4.5-10.0)
[2024-06-06 07:35] LABS: Anion Gap 0 mmol/L (4-12); Blood Urea Nitrogen 15 mg/dL (9-20); CRP 5.7 mg/dL (<1.0); Calcium 8.7 mg/dL (8.4-10.2); Carbon Dioxide 34 mmol/L (22-30); Chloride 102 mmol/L (98-107); Estimated CRCL calculation 74 ml/min; Estimated Glomerular Filt Rate > 60; Glucose 108 mg/dL (65-110); Potassium 4.6 mmol/L (3.4-5.0); Sodium 136 mmol/L (137-145)
[2024-06-06 08:17] LABS: Anisocytosis 1+; Hypochromasia 1+; Microcytosis 1+ (NORMAL); Platelet Estimate Slightly Decreased (Adequate); Schistocytes None Seen
[2024-06-06] MEDS: BUDESONIDE RESPULE NEB 0.5 MG/2 ML AMP INHALATION ×2 (08:46→19:54)
[2024-06-06] MEDS: levoFLOXacin 750 MG TABLET PO (09:37)
[2024-06-06] MEDS: CYANOCOBALAMIN 500 MCG TABLET PO (09:37)
[2024-06-06] MEDS: CYANOCOBALAMIN 1,000 MCG TABLET 2000 MCG PO (09:37)
[2024-06-06] MEDS: PREGABALIN (*CRX) 75 MG CAPSULE 225 MG PO ×2 (09:37→18:00)
[2024-06-06] MEDS: PANTOPRAZOLE 40 MG TABLET PO ×2 (09:38→22:28)
[2024-06-06] MEDS: guaiFENesin 12 HR 600 MG TABCR 1200 MG PO ×2 (09:38→22:27)
[2024-06-06] MEDS: ACYCLOVIR 400 MG TABLET PO ×5 (09:38→22:27)
[2024-06-06] MEDS: LINEZOLID 600 MG TABLET PO ×2 (09:38→22:27)
[2024-06-06] MEDS: FUROSEMIDE 40 MG TABLET PO ×2 (09:38→18:00)
[2024-06-06] MEDS: METOPROLOL TARTRATE 50 MG TAB PO ×2 (09:39→22:27)
[2024-06-06] MEDS: TAMSULOSIN HCL 0.4 MG CAPSULE PO (09:39)
[2024-06-06] MEDS: FLUCONAZOLE 100 MG TABLET 200 MG PO (09:39)
[2024-06-06] MEDS: FOLIC ACID 1 MG TABLET PO (09:39)
[2024-06-06] MEDS: oxyCODONE HCL (*CRX) 40 MG TAB SR 12HR PO ×2 (09:39→22:27)
[2024-06-06] MEDS: FLUTICASONE PROPIONATE 0.05% NA SPR 16 GM BTL (*BKC) 1 SPRAY NASAL ×2 (09:40→23:23)
[2024-06-06] MEDS: LORATADINE 10 MG TABLET PO (09:47)
[2024-06-06] MEDS: SALINE 0.65% NAS SOLN 44 ML BTL 1 SPRAY NASAL (10:24)
--- NOTE | 2024-06-06 10:59 | PCNWS ---
Weekly nutritional screen. Patient is tolerating current diet with adequate intake. No weight loss reported. No nutritional needs at this time.
[2024-06-06] MEDS: FERROUS SULFATE 325 MG TABLET DR PO (12:45)
[2024-06-06] MEDS: HEPARIN SODIUM LOCK FLUSH 500 UNITS/5 ML SYRINGE IV PUSH (12:51)
--- NOTE | 2024-06-06 13:09 | PM.PNPUL ---
Progress Note: A&P Assessment and Plan (1) Pneumonia: Qualifiers: Pneumonia type: due to unspecified organism Laterality: right Lung location: lower lobe of lung Qualified Code(s): J18.9 - Pneumonia, unspecified organism Code(s): J18.9 - Pneumonia, unspecified organism Status: Acute Assessment and Plan: Patient has been admitted multiple times to the hospital over the last 6 months and treated with various antibiotics. He is immunosuppressed receiving chemotherapy. he was admitted with 1 blood cultures showing oxacillin resistant Staph epidermidis and another blood should culture showing oxacillin resistant Staph hominis. Initial COVID, influenza RSV swab negative. he presents with chills, sweats, worsening shortness of breath, wheezing and change in his phlegm. He was neutropenic on arrival. patient has been treated with Neupogen and is no longer neutropenic with a white blood cell count of 7.1. He is afebrile. Clinically he has improved from 10% at his baseline to currently 50% today. He continues to have unchanged chills and sweats his phlegm is improved to dark yellow with a normal volume today. chest x-ray today with worsening left mid lung infiltrate and CT scan today with unchanged right upper lobe consolidation and new left upper lobe and lower lobe infiltrates consistent with pneumonia. These are new since 05/09/2024. Patient has received multiple antibiotics including ceftriaxone and azithromycin on 05/28, vancomycin 05/29 through 06/02, levofloxacin 05/29 to current, and linezolid started 06/02 to current. Etiology includes infection ( bacterial, viral, doubt fungal or mycobacterial), cancer, doubt fluid overload. Plan: I will repeat blood cultures. I will continue vanco and linezolid for total 10 days (day 7) and levofloxacin for total 10 days (day 7). I will add cefepime. I will repeat COVID, influenza RSV. I will send a respiratory pathogen panel to [facility]. I will check urine Legionella and urine pneumococcal. I will send a serum mycoplasma IgM. I will send a QuantiFERON gold. Patient with Beatriz in his phlegm, I do not believe this is candidal pneumonia at this time. I will check a chest x-ray, and procalcitonin on 06/05/2024. 06/05/2024. Overall patient feels clinically the same. States he has 50% back to his baseline with some dyspnea on exertion. Currently the patient is on 4 L nasal cannula saturations 99%. White blood cell count 4.7, creatinine 1.0, procalcitonin 0.5. CRP 7.6. Chest x-ray with right upper lobe infiltrate and left mid lung and lower lung infiltrate stable compared with 06/02/2024. Repeat COVID, influenza and RSV RT PCR negative. Plan: clinically stable. Continue vanco and now linezolid, day 8. Continue levofloxacin day 8. Continue cefepime day 2. Respiratory pathogen panel, urine Legionella, urine pneumococcal, QuantiFERON gold and serum IgM mycoplasma pending. 06/06/24: overall the patient is slowly improving. States he is 60% back to his baseline. His chills are gone. He still has a cough and some phlegm production. currently is on 3 L nasal cannula saturations 95%. He has a worsening nasal congestion today. He is afebrile. White blood cell count 4.4, CRP decreased from 7.6 yesterday to 5.7 today. Chest x-ray shows continued left mid and lower lung infiltrate with possible progression from yesterday and slight improvement since the . Plan: Slow improvement. Continue vanc and now linezolid for day 9, levofloxacin day 9, cefepime day 3. Respiratory pathogen panel, urine Legionella, urine pneumococcal, QuantiFERON gold and serum IgM mycoplasma pending. I will increase his Flonase to 1 spray each nostril twice a day. I will add loratadine 10 mg a day for his nasal congestion. I will repeat a chest x-ray in the morning and if this is stable and he continues to improve will consider discharge home. Discussed with Dr. Chase, will follow with you. (2) COPD (chronic obstructive pulmonary disease): Code(s): J44.9 - Chronic obstructive pulmonary disease, unspecified Status: Chronic Assessment and Plan: GOLD grade 2 group E COPD Patient with 80 pack year tobacco use, quit in 2019. 08/05/2018 PFTs with FEV1 is 2.33 L, 66% predicted, no bronchodilator response, air trapping, hyperinflation, normal DLCO. CT scan 06/04/2024 with mild apical predominant paraseptal emphysema. chronic hypoxemic respiratory failure on 3.5 L at rest and with sleep and 4 with activity. patient is followed at [facility] and maintained on Advair, budesonide nebulizer and albuterol nebulizer.. 06/04/2024: Patient is being treated for pneumonia. He has no evidence of a COPD exacerbation. Patient has exertional tachycardia with his AFib at a rate of 130 when he returned from the bathroom today. His saturations were 98 on 4 L. Plan: Given his exertional tachycardia I will place him on nebulized ipratropium 0.5 mg q.6 hours, nebulized budesonide 500 mcg twice a day and discontinue his albuterol. If the patient has any worsening bronchospasm will restart levalbuterol. I do not feel he needs systemic steroids at this time. 06/05/24: Patient says he is breathing the same off of the beta agonists. He has no wheezing. Plan: Continue nebulized budesonide 500 twice a day and nebulized ipratropium q.6 hours. 06/06/24: States his breathing is about the same. No wheezing. His heart rate when I walked him in the room when from 96 to 110 with stable saturation at 95-96 on 3 L nasal cannula. plan: Continue nebulized budesonide and ipratropium q.6 hours. (3) Adenocarcinoma, lung: Qualifiers: Laterality: right Qualified Code(s): C34.91 - Malignant neoplasm of unspecified part of right bronchus or lung Code(s): C34.90 - Malignant neoplasm of unspecified part of unspecified bronchus or lung Status: Chronic Assessment and Plan: regarding his lung cancer this was diagnosed in June of 2018 with a right upper lobe biopsy. Status post radiation therapy 12/18/2018. Status post XRT 03/10/2022. Patient currently on his 3rd line of chemotherapy and has received 3 cycles of Taxotere and cyrmza per Dr. Baez, the last of which was on 05/21/2024. Plan was to repeat a CT scan in June 2024 after his 4th cycle. Plan: Per oncology note on 05/30/2024 the plan was to hold off on a CT scan until June of 2024. Repeat CT scan now without change of right upper lobe consolidation. (4) Atrial fibrillation: Code(s): I48.91 - Unspecified atrial fibrillation Status: Acute Assessment and Plan: Patient tells me at home when he walks his heart rate goes to 130. Patient walked from the bathroom to his bed on 4 L nasal cannula on 06/04/2024 and a returning to the bed his heart rate was 130. Plan: I will discontinue beta agonist at this time. Patient is receiving Lasix per hospitalist. Patient is on metoprolol 50 mg p.o. q.day. further management per hospitalist team. 06/06: His heart rate when I walked him in the room when from 96 to 110 with stable saturation at 95-96 on 3 L nasal cannula. Subjective Date/time seen: 06/06/24 13:09 Interval history: 06/04/2024: This is a new pulmonary consult for COPD, lung cancer, pneumonia. 63-year-old with a history of COPD, metastatic lung cancer to the bone, anxiety, atrial fibrillation on rivaroxaban, right upper extremity DVT and PE in 12/2018. regarding his lung cancer this was diagnosed in June of 2018 with a right upper lobe biopsy. Status post radiation therapy 12/18/2018. Status post XRT 03/10/2022. Patient currently on his 3rd line of chemotherapy and has received 3 cycles of Taxotere and cyrmza per Dr. Baez, the last of which was on 05/21/2024. Plan was to repeat a CT scan in June 2024 after his 4th cycle. Regarding his COPD. The patient is on home oxygen 3.5 L at rest and with sleep and 3 and half to 4 L with activity. The patient is limited in his activity at room to room mainly because his heart rate goes to 130 and then he breathes fast. At baseline he produces yellow phlegm 1 to 2 times a day. He takes albuterol nebulizer, budesonide nebulizer twice a day, Advair as an outpatient. He follows with Marti Shaffer, Dr. Leroy and last saw him 3 months ago. Patient has been in the hospital monthly for the last 6 months. Last admitted 05/09 through 05/17/2024 with neutropenic fever, epistaxis and treated for pneumonia. He says that he did improve when he left. Patient was back to his baseline and on 05/25/2024 he developed increasing shortness of breath at rest and with exertion, wheezing, increased volume and change in color of his phlegm from yellow to dark mireles. He denied any cough. He was also having chills, sweats but no fever was documented. Symptoms progressed and patient presented to the emergency department on 05/28/2024 with a white blood cell count of 1.8, platelets 100, creatinine 0.9, COVID, influenza, RSV swab RT PC are negative, MRSA swab negative. Blood cultures were obtained and 1 grew out oxacillin resistant Staph epi and 1 grew out oxacillin resistant Staph hominis. Patient was initially treated with ceftriaxone and azithromycin on 05/28, vancomycin on 05/29 and levofloxacin was started on 05/29. Patient had a chest x-ray today that showed worsening left mid lung field infiltrates. CT scan of the chest shows right upper lobe consolidation that is unchanged and new left lower lobe infiltrates. Since patient was admitted he says that he is improved. When he presented he self he was 10% of his normal and now he says he has 50% back to his normal. The phlegm is now dark yellow. He continues to have chills and sweats but no documented fever. Beta minute patient had a sputum sample that g stain showed few white blood cells, moderate mixed bacterial gloria and yeast. I called laboratory to identify this used and it has returned Beatriz albicans. 06/04/2024: Patient was in the bathroom and when he walked from the bathroom to his bed on 4 L nasal cannula his saturations remained 98% and his heart rate was 130. He had dyspnea on exertion with this activity. His white blood cell count is 7.1, creatinine is 1.0. 06/05/2024. Overall patient feels clinically the same. States he has 50% back to his baseline with some dyspnea on exertion. Currently the patient is on 4 L nasal cannula saturations 99%. White blood cell count 4.7, creatinine 1.0, procalcitonin 0.5. CRP 7.6. Chest x-ray with right upper lobe infiltrate and left mid lung and lower lung infiltrate stable compared with 06/02/2024. Repeat COVID, influenza and RSV RT PCR negative. 06/06/24: overall the patient is slowly improving. States he is 60% back to his baseline. His chills are gone. He still has a cough and some phlegm production. He has a worsening nasal congestion today. He is afebrile. White blood cell count 4.4, CRP decreased from 7.6 yesterday to 5.7 today. Chest x-ray shows continued left mid and lower lung infiltrate with possible progression from yesterday and slight improvement since the . DATA: 06/04/24 EXAMINATION:CT diagnostic chest wo con INDICATION: Worsening pneumonia. TECHNIQUE: Computed tomography (CT) of the chest was performed without intravenous contrast. Automated exposure control and iterative reconstruction technique were employed. The dose-length product (DLP) was 282.17 mGy-cm. COMPARISON: Chest CT 05/09/2024 FINDINGS: There are airspace opacities with volume loss involving right upper lobe and right perihilar region, consistent with radiation fibrosis. There is mild emphysema. There are patchy groundglass opacities with small airspace opacity component and septal thickening involving the left upper lobe and left lower lobe, consistent with pneumonia. There are small pleural effusions. The heart size is normal. There are coronary artery calcifications. No pericardial effusion. There is a left internal jugular port with tip at superior cavoatrial junction. There are changes of cholecystectomy. There is mild bilateral gynecomastia. Epidural electrodes are noted. There are scattered sclerotic lesions of bone. IMPRESSION: 1. Worsened left lung disease, consistent with pneumonia. 2. 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 3. Small pleural effusions. 4. Mild emphysema. 5. Sclerotic lesions of bone, consistent with metastatic disease. * 05/09/24CXR; Persistent volume loss in the right hemithorax and unchanged consolidation in the posterior right mid to upper lung zone and at the posterior right lower lung zone, bladder likely due at least in part to a small right pleural effusion. Lung remains clear. No pneumothorax or left-sided pleural effusion. Arch size is normal. Median sternotomy wires and mediastinal surgical clips are seen, likely from prior coronary artery bypass grafting. Left internal jugular central venous port catheter with distal tip at the caudal superior vena cava. Spinal stimulator leads extend the length of the visualized lower cervical to upper lumbar central canal with lead tips terminating in the upper cervical spine on the prior radiographs. There also appears. The tip of a intrathecal catheter projects over the posterior central canal of the lower thoracic spine. IMPRESSION: 1. Persistent volume loss with chronic opacities in the posterior right mid to upper lung zone on CT. 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 2. No recent interval change in a small right pleural effusion with associated compressive atelectasis in the right lower lobe. 3. Difficult to absolutely exclude superimposed pneumonia however there are no new opacities to more specifically suggest this. * 05/09/2024; CTA No pulmonary embolism. Small bilateral pleural effusions. Increased size of a region of consolidation at the posterior right lower lobe with subtle surrounding tree-in-bud opacities suggestive of pneumonia superimposed over chronic atelectasis/scarring. Similar there are new small centrilobular groundglass opacities and tree-in-bud opacities in the right upper and middle lung at the periphery of an unchanged region of consolidation with volume loss and architectural distortion at the posterior right upper lung likely related to radiation fibrosis for reported prior lung cancer. New small patchy region of groundglass opacity and a few small centrilobular nodules at the junction of the lingula and left upper lobe also suspicious for pneumonia. There are a few unchanged larger and more solid-appearing subcentimeter pulmonary nodules most prominent in the left lower lobe suspicious for metastatic disease. No pulmonary edema or pneumothorax. Heart size is normal but shifted towards the right due to the volume loss in the right lung. No pericardial effusion. Left internal jugular central venous port catheter with distal tip at the superior cavoatrial junction. Thoracic aorta is normal in caliber with no dissection. No pathologically enlarged thoracic lymphadenopathy. Cholecystectomy clips at the gallbladder fossa. Diffuse hepatic steatosis. Median sternotomy. Scattered patchy sclerotic bone lesions most prominent in the lower thoracic spine consistent with metastatic disease. Distal tip of an intrathecal catheter likely for pain management in the posterior central canal at the level of T9. There are spinal stimulator leads entering the central canal at level of T12-L1 which extend through the thoracic and lower cervical central canal extending beyond the cephalad margin of the field of imaging. IMPRESSION: 1. No pulmonary embolism. 2. Bilateral scattered mild new lung disease, composed predominantly of tree-in-bud opacities and small groundglass opacities suspicious for pneumonia 3. Unchanged small right and new small left pleural effusions. 4. A couple regions of chronic consolidation with volume loss in the right mid to upper lung and right lower lung likely atelectasis/scarring related to reported treated lung cancer. 5. Unchanged scattered subcentimeter solid pulmonary nodules and scattered patchy sclerotic bone lesions consistent with metastatic disease. 05/15/2022 EXAMINATION: CTA chest PE protocol INDICATION: Shortness of breath and cough. Right chest pain. COMPARISON: Chest CT 04/22/2022 FINDINGS: There are airspace and groundglass opacities with volume loss and architectural distortion involving right upper lobe and perihilar right lower lobe. There are patchy groundglass opacities in basilar right lower lobe. There are patchy groundglass opacities in left upper lobe. There is a small right pleural effusion. The heart size is normal. There is a left internal jugular port with tip in right atrium. There is no pulmonary embolus. There are changes of cholecystectomy. There are scattered sclerotic lesions of bone, consistent with metastatic disease. Median sternotomy wires are noted. IMPRESSION: 1. No pulmonary embolus. 2. Airspace and groundglass opacities with volume loss and architectural distortion involving right upper lobe and perihilar right lower lobe, consistent with primary bronchogenic carcinoma and changes of radiation therapy without or with superimposed pneumonia. 3. Groundglass opacities in right lower lobe and left upper lobe with improvement from 04/22/2022, which may be radiation pneumonitis or pneumonia. 4. Stable small right pleural effusion. 5. Scattered sclerotic lesions of bone, consistent with metastatic disease. 04/22/2022 EXAMINATION: CTA chest PE protocol INDICATION: Shortness of breath. Dyspnea. History of pulmonary embolism. History of lung cancer metastatic to lymph nodes and bone COMPARISON: 04/22/2022 portable AP chest 12/29/2021 CT pulmonary scan FINDINGS: There is diminished size of the large right posterior perihilar lung mass since 12/29/2021. Residual tumor and extensive surrounding right upper lobe and superior segment right lower lobe infiltrate are noted. There is mild right pleural effusion. There are patchy groundglass infiltrates scattered in the left upper lobe and right lower lobe. Normal heart size. No pericardial effusion. No thoracic aortic aneurysm or dissection. No pulmonary embolism is detected. Status post sternotomy. There are scattered osteosclerotic lesions of the cervical and thoracic spine, suggesting metastatic disease. Consider lung and possibly prostate skeletal metastasis. IMPRESSION:? No evidence of pulmonary embolism Diminished size of right posterior perihilar lung mass since 12/29/2021. There is extensive infiltrate in the right upper lobe and superior segment right lower lobe and there are scattered patchy groundglass infiltrates in the right lower lobe and particularly left upper lobe No evidence of pulmonary embolism Osteoblastic skeletal metastases; consider prostate cancer skeletal metastases in addition to lung cancer metastases. 02/24/2022 Echo Summary ? 1. Left ventricular chamber dimension is normal. ? 2. Left ventricular systolic function is normal, estimated at 55-60%. ? 3. The left ventricular diastolic function is abnormal. ? 4. E/e' 10 is mildly elevated. ? 5. There is mild aortic valve sclerosis. ? 6. There is trace mitral valve regurgitation. ? 7. There is trace tricuspid valve regurgitation. Right Ventricle ? Right ventricular systolic function is normal and with normal TAPSE 1.8 cm. ? Right ventricular chamber dimension is normal. Right Atria ? Right atrial chamber dimension is normal. Atrial Septum ? Agitated saline injection with and without valsalva maneuver opacified right side cardiac chambers without shunt to left side cardiac chambers. ? Intact interatrial septum visualized by 2D and agitated saline imaging. Tricuspid Valve ? There is trace tricuspid valve regurgitation. ? RVSP is not calculated due to an inadequate TR jet. 08/05/2018 PFTs Findings: Spirometry: ? There is decreased maximal expiratory airflow at all lung volumes with concave expiratory flow tracing.? The contour the inspiratory flow tracing is normal.? The pre bronchodilator FVC is 4.44 L, 89% predicted.? The pre bronchodilator FEV1 is 2.33 L, 66% predicted.? The pre bronchodilator FEV1:? FVC ratio is 53%.? The post bronchodilator FVC is 4.51 L, representing a 2% increase.? The post bronchodilator FEV1 is 2.54 L, representing a 9% increase.? The post bronchodilator FEV1:? FVC ratio is 56%.? Plethysmography:? The total lung capacity is 9.12 L, 127% predicted.? The functional residual capacity is 5.35 L, 131% predicted.? The residual volume is 4.63 L, 188% predicted.? Plethysmography the diffusing capacity unadjusted for hemoglobin and carboxyhemoglobin is 19.3, 78% predicted.? The diffusing capacity adjusted for alveolar volume is 3.39, 86% predicted. My Impression: There is a moderate obstructive abnormality without significant improvement after inhaling a single dose of albuterol. The increase in residual volume is consistent with air trapping from an obstructive abnormality.? Hyperinflation is present as demonstrated by the increase in functional residual capacity and total lung capacity and is consistent with an obstructive abnormality. The diffusing capacity is normal. There are no prior studies for comparison Review of Systems Constitutional: Constitutional: Reports no additional constitutional complaints Eyes: Eyes: Reports no additional eye complaints ENT: Reports system reviewed and no additional complaints, except as documented Cardiovascular: Cardiovascular: Reports no additional cardiovascular complaints Respiratory: Respiratory: Reports no additional respiratory complaints Gastrointestinal: Gastrointestinal: Reports no additional gastrointestinal complaints Musculoskeletal: Musculoskeletal: Reports no additional musculoskeletal complaints Neurologic: Reports system reviewed and no additional complaints, except as documented Psychiatric: Psychiatric: Reports no additional psychiatric complaints Endocrine: Endocrine: Reports no additional endocrine complaints Hematologic/Lymphatic: Hematologic/Lymphatic: Reports no additional hematologic/lymphatic complaints Allergic/Immunologic: Allergic/Immunologic: Reports no additional allergic/immunologic complaints Exam Const: General: cooperative and comfortable Orientation/consciousness: oriented to person, oriented to place and oriented to time HENMT: Head: normal to inspection Ears: hearing grossly normal bilaterally Eyes: General: appearance normal, both eyes and all related structures Neck: Neck: normal visual inspection Chest: Chest palpation & inspection: normal inspection of the chest Resp: Effort & Inspection: normal respiratory effort and able to speak in complete sentences Auscultation: no crackles, no rales, no rhonchi, no wheezes and diminished lung sounds Other: Right upper lobe decreased breath sounds. Cardio: Jugular venous distension: no JVD GI: Inspection: normal to inspection Skin: General skin exam: normal color Neuro: General: oriented to person, oriented to place and oriented to time Extrem: General: normal to inspection and edema Psych: Appearance: grossly normal Objective Data Vital Signs Vital Signs: Vital Signs - 24 hr 06/05/24 14:00 06/05/24 14:19 06/05/24 14:34 Temperature 36.1 C L Pulse Rate 102 H Respiratory Rate 19 Blood Pressure 110/74 Pulse Oximetry 96 95 Oxygen Delivery Nasal Cannula Nasal Cannula Oxygen Flow Rate 4 4 Fraction of Inspired Oxygen 36 06/05/24 14:34 06/05/24 14:40 06/05/24 16:04 Temperature Pulse Rate 105 H 109 H 104 H Respiratory Rate 18 20 Blood Pressure Pulse Oximetry Oxygen Delivery Oxygen Flow Rate Fraction of Inspired Oxygen 06/05/24 20:00 06/05/24 20:00 06/05/24 20:54 Temperature Pulse Rate 113 H 107 H Respiratory Rate Blood Pressure Pulse Oximetry 100 Oxygen Delivery Nasal Cannula Oxygen Flow Rate 3 Fraction of Inspired Oxygen 06/05/24 21:00 06/05/24 21:16 06/05/24 22:01 Temperature 36.2 C L Pulse Rate 113 H 109 H 106 H Respiratory Rate 19 19 20 Blood Pressure 125/77 Pulse Oximetry 100 Oxygen Delivery Oxygen Flow Rate Fraction of Inspired Oxygen 06/06/24 00:00 06/06/24 02:06 06/06/24 02:13 Temperature Pulse Rate 78 76 77 Respiratory Rate 19 18 Blood Pressure Pulse Oximetry Oxygen Delivery Oxygen Flow Rate Fraction of Inspired Oxygen 06/06/24 04:00 06/06/24 06:00 06/06/24 08:46 Temperature 36.1 C L Pulse Rate 75 80 Respiratory Rate 20 Blood Pressure 106/62 Pulse Oximetry 100 95 Oxygen Delivery Nasal Cannula Oxygen Flow Rate 3 Fraction of Inspired Oxygen 06/06/24 08:46 06/06/24 08:54 06/06/24 09:39 Temperature Pulse Rate 97 90 96 Respiratory Rate 18 18 Blood Pressure Pulse Oximetry Oxygen Delivery Oxygen Flow Rate Fraction of Inspired Oxygen Intake/Output Intake/Output: Intake & Output 06/03/24 06/04/24 06/05/24 06/06/24 23:59 23:59 23:59 23:59 Intake Total 2610 1201 2097 1022 Output Total 800 950 800 Balance 2610 401 1147 222 Meds/Results Medications: Active Medications Generic Name Dose Route Start Last Admin Trade Name Freq PRN Reason Stop Dose Admin Acetaminophen 650 mg 05/28/24 07:51 06/05/24 04:10 Acetaminophen 325 Mg Tablet PO 650 mg Q4H PRN Administration Mild Pain (1-3) or Fever Acyclovir 400 mg 06/05/24 15:00 06/06/24 12:45 Acyclovir 400 Mg Tablet PO 400 mg 5 TIMES DAILY JESSICA Administration Budesonide 0.5 mg 06/04/24 08:00 06/06/24 08:46 Budesonide Respule Neb 0.5 Mg/2 Ml Amp INHALATION 0.5 mg Q12HRT JESSICA Administration Lidocaine HCl 30 ml/ Al Hydrox 0 ml 05/29/24 10:08 06/05/24 13:29 /Mg Hydrox/Simethicone 30 ml/ PO 5 ml Diphenhydramine HCl 75 mg Q4HWA PRN Administration mouth soreness Lidocaine HCl 30 ml/ Al Hydrox 0 ml 06/05/24 17:00 06/06/24 12:46 /Mg Hydrox/Simethicone 30 ml/ PO 5 ml Diphenhydramine HCl 75 mg Q4HWA JESSICA Administration Cyanocobalamin 2,000 mcg 05/30/24 09:00 06/06/24 09:37 Cyanocobalamin 1,000 Mcg Tablet PO 2,000 mcg QAM JESSICA Administration Cyanocobalamin 500 mcg 05/30/24 09:00 06/06/24 09:37 Cyanocobalamin 500 Mcg Tablet PO 500 mcg QAM JESSICA Administration Ergocalciferol 50,000 units 06/02/24 09:00 06/02/24 08:03 Ergocalciferol 50,000 Units Capsule PO 50,000 units WEEKLY JESSICA Administration Ferrous Sulfate 325 mg 05/31/24 12:00 06/06/24 12:45 Ferrous Sulfate [address] PO 325 mg DAILY@1200 JESSICA Administration Fluconazole 200 mg 06/06/24 09:00 06/06/24 09:39 Fluconazole 100 Mg Tablet PO 200 mg QAM JESSICA Administration Fluticasone Propionate 1 spray 05/29/24 10:30 06/06/24 09:40 Fluticasone Propionate 0.05% Na Spr 16 Gm Btl (*Bkc) NASAL 1 spray Q12HR JESSICA Administration Folic Acid 1 mg 05/30/24 09:00 06/06/24 09:39 Folic Acid 1 Mg Tablet PO 1 mg DAILY JESSICA Administration Furosemide 40 mg 06/06/24 09:00 06/06/24 09:38 Furosemide 40 Mg Tablet PO 40 mg BID JESSICA Administration Guaifenesin 1,200 mg 05/29/24 21:00 06/06/24 09:38 Guaifenesin 12 Hr 600 Mg Tabcr PO 1,200 mg Q12HR JESSICA Administration Heparin Sodium (Beef Lung) 50 units 05/28/24 09:00 06/06/24 09:49 Heparin Flush 50 Units/5 Ml Syringe IV PUSH Not Given QAM JESSICA Heparin Sodium (Beef Lung) 50 units 05/28/24 07:25 Heparin Flush 50 Units/5 Ml Syringe IV PUSH PRN PRN after intermittent infusion Heparin Sodium (Beef Lung) 50 units 05/28/24 07:25 Heparin Flush 50 Units/5 Ml Syringe IV PUSH PRN PRN after blood draws Heparin Sodium (Porcine) 500 units 05/28/24 07:25 06/06/24 12:51 Heparin Sodium Lock Flush 500 Units/5 Ml Syringe IV PUSH 500 units PRN PRN Administration see comments below Cefepime HCl 2 gm in 50 mls @ 100 mls/hr 06/04/24 16:00 06/06/24 10:55 Maxipime 2 Gm/Ns 50 Ml IVPB Infused Q8H JESSICA Infusion Ipratropium [place] 0.5 mg 06/04/24 20:00 06/06/24 08:46 Ipratropium Br 0.02% Inh Soln 0.5 Mg/2.5 Ml Vial INHALATION 0.5 mg Q6HRT JESSICA Administration Levalbuterol HCl 0.63 mg 06/04/24 16:38 Levalbuterol Neb 1.25 Mg/3 Ml INHALATION Q6HRT PRN Wheezing Levofloxacin 750 mg 05/31/24 09:00 06/06/24 09:37 Levofloxacin 750 Mg Tablet PO 06/06/24 23:59 750 mg DAILY JESSICA Administration Linezolid 600 mg 06/02/24 20:00 06/06/24 09:38 Linezolid 600 Mg Tablet PO 06/07/24 21:01 600 mg Q12HR JESSICA Administration Loratadine 10 mg 06/06/24 09:35 06/06/24 09:47 Loratadine 10 Mg Tablet PO 10 mg QAM JESSICA Administration Lorazepam 0.5 mg 05/31/24 13:03 06/06/24 12:45 Lorazepam (*Crx) 0.5 Mg Tablet PO 0.5 mg Q6H PRN Administration Anxiety Metoprolol Tartrate 50 mg 06/04/24 21:00 06/06/24 09:39 Metoprolol Tartrate 50 Mg Tab PO 50 mg Q12HR JESSICA Administration Ondansetron HCl 4 mg 05/28/24 07:51 05/30/24 08:35 Ondansetron Inj 4 Mg/2 Ml Vial IV PUSH 4 mg Q4H PRN Administration Nausea Oxycodone HCl 5 mg 05/28/24 14:20 06/05/24 14:38 Oxycodone Hcl (*Crx) 5 Mg Tab Ir PO 5 mg Q6H PRN Administration Breakthrough Pain Oxycodone HCl 40 mg 05/29/24 21:00 06/06/24 09:39 Oxycodone Hcl (*Crx) 40 Mg Tab Sr 12hr PO 40 mg Q12H JESSICA Administration Pantoprazole Sodium 40 mg 05/29/24 21:00 06/06/24 09:38 Pantoprazole 40 Mg Tablet PO 40 mg Q12HR JESSICA Administration Pregabalin 225 mg 05/29/24 17:00 06/06/24 09:37 Pregabalin (*Crx) 75 Mg Capsule PO 225 mg BID JESSICA Administration Rivaroxaban 20 mg 05/28/24 17:00 06/05/24 16:32 Rivaroxaban 20 Mg Tablet PO 20 mg DAILY@1700 [facility] Administration Senna/Docusate Sodium 1 tab 05/30/24 12:23 06/04/24 16:06 Senna/Docusate Sodium Tablet PO 1 tab DAILY PRN Administration constipation Sodium Chloride 10 ml 05/28/24 14:00 06/06/24 05:53 Central Line Flush IV PUSH 10 ml Q8HR JESSICA Administration Sodium Chloride 1 spray 05/28/24 10:14 06/06/24 10:24 Saline 0.65% Demetris Soln 44 Ml Btl NASAL 1 spray Q2H PRN Administration Congestion Sodium Chloride 1 applic 06/02/24 14:47 Sodium Chloride Nasal Gel 14.1 Gm NASAL QID PRN Dry Nasal Passages Tamsulosin HCl 0.4 mg 05/30/24 09:00 06/06/24 09:39 Tamsulosin Hcl 0.4 Mg Capsule PO 0.4 mg DAILY JESSICA Administration Radiology Results: ITS Impressions Chest CT 06/04/24 14:52 IMPRESSION: 1. Worsened left lung disease, consistent with pneumonia. 2. 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 3. Small pleural effusions. 4. Mild emphysema. 5. Sclerotic lesions of bone, consistent with metastatic disease. Chest X-Ray 06/06/24 10:42 Impression: 1: Progression of left basilar airspace disease, compatible with pneumonia. 2: Bilateral pleural effusions, right greater than left. Labs Labs: Laboratory Results - last 24 hr 06/06/24 06:25 WBC 4.4 L RBC 3.23 L Hgb 8.5 L Hct 28.6 L MCV 88.5 MCH 26.3 MCHC 29.7 L RDW 21.3 H Plt Count 146 L MPV 11.4 H Immature Gran % (Auto) 1.4 H Neut % (Auto) 62.1 Lymph % (Auto) 24.3 [place] % (Auto) 10.1 H Eos % (Auto) 1.6 Baso % (Auto) 0.5 Lymph # (Auto) 1.08 [place] # (Auto) 0.5 Eos # (Auto) 0.1 Baso # (Auto) 0.0 Abs Immat Gran (auto) 0.06 H Absolute Neuts (auto) 2.8 Absolute Nucleated RBC 0.000 Nucleated RBC % 0.0 Platelet Estimate Slightly decreased Hypochromasia 1+ Anisocytosis 1+ Microcytosis 1+ Schistocytes None seen Sodium 136 L Potassium 4.6 Chloride 102 Carbon Dioxide 34 H Anion Gap 0 L BUN 15 Creatinine 1.00 Estim Creat Clear Calc 74 Estimated GFR > 60 Glucose 108 Calcium 8.7 C-Reactive Protein 5.7 H
--- NOTE | 2024-06-06 13:39 | P.PNIM_ITS ---
Progress Note: A&P Assessment and Plan (1) Pneumonia: Code(s): J18.9 - Pneumonia, unspecified organism Status: Acute Assessment and Plan: Patient here for SOB. CXR showing new LLL airspace disease. No fevers. He was neutropenic on admission with ANC at 1000. Influenza, RSV and COVID PCR were negative. IgG and IgM levels were low. MRSA nasal swab was negative. No urine studies obtained. BCx collected and he was given Rocephin and Azithro once. Vanco and Levaquin added. Oncology consulted and he was started on Neupogen. WBC has normalized now. Vanco 05/29-06/02 then changed to Linezolid. Levaquin started 05/28. BCx grew Staph Epi in one aerobic bottle and Staph hominis in one anaerobic bottle both sensitive to Vanco. 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 Currently on oral Levaquin and Linezolid. Cefepime added. Patient still not feeling well. WBC normal and no fevers. Remains stable on his home 3-4L O2. Pulmonary consulted and appreciate their input. TB testing with other Ag markers ordered. Yeast in sputum may be from oral lesions. Treat for stomatitis acyclovir and Diflucan. CRP trending down Continue vest therapy. BNP 1050 with leg edema so started on Lasix IV but BP soft so this was held. Resume home oral Lasix (2) Bacteremia: Code(s): R78.81 - Bacteremia Status: Acute Assessment and Plan: As above (3) CHF (congestive heart failure): Code(s): I50.9 - Heart failure, unspecified Status: Acute Assessment and Plan: Legs mildly edematous. BNP 1050. Consider acute on chronic diastolic CHF. Echo as below. He has been getting prn IV Lasix. We scheduled IV Lasix but BP soft so this was held Continue compression hose. Resume home oral lasix (4) Stomatitis: Code(s): K12.1 - Other forms of stomatitis Status: Acute Assessment and Plan: As above (5) Pancytopenia: Code(s): D61.818 - Other pancytopenia Status: Acute Assessment and Plan: As above. WBC okay. Plt count stable and about 100K. Follow (6) Chronic respiratory failure with hypoxia, on home oxygen therapy: Code(s): J96.11 - Chronic respiratory failure with hypoxia; Z99.81 - Dependence on supplemental oxygen Status: Acute Assessment and Plan: ABG on admission with 7.44/36/96 on 4L. He has chronic hypoxic respiratory failure requiring 3.5-4L chronically. His oxygen requirement remains stable and at his baseline. Follow (7) Atrial fibrillation with RVR: Code(s): I48.91 - Unspecified atrial fibrillation Status: Acute Assessment and Plan: Patient with hx of AFib s/p failed ablation in the past. Presented with AFib with RVR but EKG showing sinus tachycardia but with considerable artifact. Metoprolol continued and dose increased. Heart rate was still elevated so Albuterol was stopped. HR better now. Has converted to NSR. Continue Lopressor at current dose. Continue Xarelto. 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 Followed by Dr. Parson at [facility]. Echo 05/29/24 showing EF 55-60%, hypokinesis inferoseptal segment and normal left atria. (9) Adenocarcinoma, lung: Qualifiers: Laterality: right Qualified Code(s): C34.91 - Malignant neoplasm of unspecified part of right bronchus or lung Code(s): C34.90 - Malignant neoplasm of unspecified part of unspecified bronchus or lung Status: Chronic Assessment and Plan: Patient with non-small cell carcinoma diagnosed June 2018. he follows with Dr. Baez and Dr. Cavazos Status post XRT in 2018 and again in fall 2021 due to recurrence. Now with metastatic disease to lymph nodes and bone. He is currently receiving chemotherapy Imaging showing radiation fibrosis RUL and right louise-hilar region as well as scattered sclerotic bone lesions consistent with mets. He is full code. (10) Pleural effusion on right: Code(s): J90 - Pleural effusion, not elsewhere classified Status: Acute Assessment and Plan: CT scan showing small bilateral pleural effusions. Monitor Plan History of DVT on Xarelto Code status full code Subjective Date/time seen: 06/06/24 13:39 Interval history: 63yo male with HTN, AFib, ch respiratory failure on 3L, COPD, hx of DVT/PE and stage IV lung cancer here for SOB. He feels poorly again today. SOB better. No CP. No n/v. Walking in the room. Exam Narrative: AF 97.0 106/62 93 19 95% 3L Gen - NARD Chest - coarse BS with bibasilar crackles. nml RR. CV - RRR. Tele showing no acute dysrhythmias Abd - Soft, NT/ND, Positive BS Ext - trace pedal edema with Gera hose in place. Psych - Nml mood and affect Skin - Warm and dry Objective Data Vital Signs Vital Signs: Vital Signs - 24 hr 06/05/24 14:00 06/05/24 14:19 06/05/24 14:34 Temperature 96.9 F L Pulse Rate 102 H Respiratory Rate 19 Blood Pressure 110/74 Pulse Oximetry 96 95 Oxygen Delivery Nasal Cannula Nasal Cannula Oxygen Flow Rate 4 4 Fraction of Inspired Oxygen 36 06/05/24 14:34 06/05/24 14:40 06/05/24 16:04 Temperature Pulse Rate 105 H 109 H 104 H Respiratory Rate 18 20 Blood Pressure Pulse Oximetry Oxygen Delivery Oxygen Flow Rate Fraction of Inspired Oxygen 06/05/24 20:00 06/05/24 20:00 06/05/24 20:54 Temperature Pulse Rate 113 H 107 H Respiratory Rate Blood Pressure Pulse Oximetry 100 Oxygen Delivery Nasal Cannula Oxygen Flow Rate 3 Fraction of Inspired Oxygen 06/05/24 21:00 06/05/24 21:16 06/05/24 22:01 Temperature 97.1 F L Pulse Rate 113 H 109 H 106 H Respiratory Rate 19 19 20 Blood Pressure 125/77 Pulse Oximetry 100 Oxygen Delivery Oxygen Flow Rate Fraction of Inspired Oxygen 06/06/24 00:00 06/06/24 02:06 06/06/24 02:13 Temperature Pulse Rate 78 76 77 Respiratory Rate 19 18 Blood Pressure Pulse Oximetry Oxygen Delivery Oxygen Flow Rate Fraction of Inspired Oxygen 06/06/24 04:00 06/06/24 06:00 06/06/24 08:46 Temperature 97.0 F L Pulse Rate 75 80 Respiratory Rate 20 Blood Pressure 106/62 Pulse Oximetry 100 95 Oxygen Delivery Nasal Cannula Oxygen Flow Rate 3 Fraction of Inspired Oxygen 06/06/24 08:46 06/06/24 08:54 06/06/24 09:39 Temperature Pulse Rate 97 90 96 Respiratory Rate 18 18 Blood Pressure Pulse Oximetry Oxygen Delivery Oxygen Flow Rate Fraction of Inspired Oxygen Intake/Output Intake/Output: Intake & Output 06/03/24 06/04/24 06/05/24 06/06/24 23:59 23:59 23:59 23:59 Intake Total 2610 1201 2097 1022 Output Total 800 950 800 Balance 2610 401 1147 222 Meds/Results Medications: Active Medications Generic Name Dose Route Start Last Admin Trade Name Freq PRN Reason Stop Dose Admin Acetaminophen 650 mg 05/28/24 07:51 06/05/24 04:10 Acetaminophen 325 Mg Tablet PO 650 mg Q4H PRN Administration Mild Pain (1-3) or Fever Acyclovir 400 mg 06/05/24 15:00 06/06/24 12:45 Acyclovir 400 Mg Tablet PO 400 mg 5 TIMES DAILY JESSICA Administration Budesonide 0.5 mg 06/04/24 08:00 06/06/24 08:46 Budesonide Respule Neb 0.5 Mg/2 Ml Amp INHALATION 0.5 mg Q12HRT JESSICA Administration Lidocaine HCl 30 ml/ Al Hydrox 0 ml 05/29/24 10:08 06/05/24 13:29 /Mg Hydrox/Simethicone 30 ml/ PO 5 ml Diphenhydramine HCl 75 mg Q4HWA PRN Administration mouth soreness Lidocaine HCl 30 ml/ Al Hydrox 0 ml 06/05/24 17:00 06/06/24 12:46 /Mg Hydrox/Simethicone 30 ml/ PO 5 ml Diphenhydramine HCl 75 mg Q4HWA JESSICA Administration Cyanocobalamin 2,000 mcg 05/30/24 09:00 06/06/24 09:37 Cyanocobalamin 1,000 Mcg Tablet PO 2,000 mcg QAM JESSICA Administration Cyanocobalamin 500 mcg 05/30/24 09:00 06/06/24 09:37 Cyanocobalamin 500 Mcg Tablet PO 500 mcg QAM JESSICA Administration Ergocalciferol 50,000 units 06/02/24 09:00 06/02/24 08:03 Ergocalciferol 50,000 Units Capsule PO 50,000 units WEEKLY JESSICA Administration Ferrous Sulfate 325 mg 05/31/24 12:00 06/06/24 12:45 Ferrous Sulfate [address] PO 325 mg DAILY@1200 JESSICA Administration Fluconazole 200 mg 06/06/24 09:00 06/06/24 09:39 Fluconazole 100 Mg Tablet PO 200 mg QAM JESSICA Administration Fluticasone Propionate 1 spray 05/29/24 10:30 06/06/24 09:40 Fluticasone Propionate 0.05% Na Spr 16 Gm Btl (*Bkc) NASAL 1 spray Q12HR JESSICA Administration Folic Acid 1 mg 05/30/24 09:00 06/06/24 09:39 Folic Acid 1 Mg Tablet PO 1 mg DAILY JESSICA Administration Furosemide 40 mg 06/06/24 09:00 06/06/24 09:38 Furosemide 40 Mg Tablet PO 40 mg BID JESSICA Administration Guaifenesin 1,200 mg 05/29/24 21:00 06/06/24 09:38 Guaifenesin 12 Hr 600 Mg Tabcr PO 1,200 mg Q12HR JESSICA Administration Heparin Sodium (Beef Lung) 50 units 05/28/24 09:00 06/06/24 09:49 Heparin Flush 50 Units/5 Ml Syringe IV PUSH Not Given QAM JESSICA Heparin Sodium (Beef Lung) 50 units 05/28/24 07:25 Heparin Flush 50 Units/5 Ml Syringe IV PUSH PRN PRN after intermittent infusion Heparin Sodium (Beef Lung) 50 units 05/28/24 07:25 Heparin Flush 50 Units/5 Ml Syringe IV PUSH PRN PRN after blood draws Heparin Sodium (Porcine) 500 units 05/28/24 07:25 06/06/24 12:51 Heparin Sodium Lock Flush 500 Units/5 Ml Syringe IV PUSH 500 units PRN PRN Administration see comments below Cefepime HCl 2 gm in 50 mls @ 100 mls/hr 06/04/24 16:00 06/06/24 10:55 Maxipime 2 Gm/Ns 50 Ml IVPB Infused Q8H JESSICA Infusion Ipratropium [place] 0.5 mg 06/04/24 20:00 06/06/24 08:46 Ipratropium Br 0.02% Inh Soln 0.5 Mg/2.5 Ml Vial INHALATION 0.5 mg Q6HRT JESSICA Administration Levalbuterol HCl 0.63 mg 06/04/24 16:38 Levalbuterol Neb 1.25 Mg/3 Ml INHALATION Q6HRT PRN Wheezing Levofloxacin 750 mg 05/31/24 09:00 06/06/24 09:37 Levofloxacin 750 Mg Tablet PO 06/06/24 23:59 750 mg DAILY JESSICA Administration Linezolid 600 mg 06/02/24 20:00 06/06/24 09:38 Linezolid 600 Mg Tablet PO 06/07/24 21:01 600 mg Q12HR JESSICA Administration Loratadine 10 mg 06/06/24 09:35 06/06/24 09:47 Loratadine 10 Mg Tablet PO 10 mg QAM JESSICA Administration Lorazepam 0.5 mg 05/31/24 13:03 06/06/24 12:45 Lorazepam (*Crx) 0.5 Mg Tablet PO 0.5 mg Q6H PRN Administration Anxiety Metoprolol Tartrate 50 mg 06/04/24 21:00 06/06/24 09:39 Metoprolol Tartrate 50 Mg Tab PO 50 mg Q12HR JESSICA Administration Ondansetron HCl 4 mg 05/28/24 07:51 05/30/24 08:35 Ondansetron Inj 4 Mg/2 Ml Vial IV PUSH 4 mg Q4H PRN Administration Nausea Oxycodone HCl 5 mg 05/28/24 14:20 06/05/24 14:38 Oxycodone Hcl (*Crx) 5 Mg Tab Ir PO 5 mg Q6H PRN Administration Breakthrough Pain Oxycodone HCl 40 mg 05/29/24 21:00 06/06/24 09:39 Oxycodone Hcl (*Crx) 40 Mg Tab Sr 12hr PO 40 mg Q12H JESSICA Administration Pantoprazole Sodium 40 mg 05/29/24 21:00 06/06/24 09:38 Pantoprazole 40 Mg Tablet PO 40 mg Q12HR JESSICA Administration Pregabalin 225 mg 05/29/24 17:00 06/06/24 09:37 Pregabalin (*Crx) 75 Mg Capsule PO 225 mg BID JESSICA Administration Rivaroxaban 20 mg 05/28/24 17:00 06/05/24 16:32 Rivaroxaban 20 Mg Tablet PO 20 mg DAILY@1700 JESSICA Administration Senna/Docusate Sodium 1 tab 05/30/24 12:23 06/04/24 16:06 Senna/Docusate Sodium Tablet PO 1 tab DAILY PRN Administration constipation Sodium Chloride 10 ml 05/28/24 14:00 06/06/24 05:53 Central Line Flush IV PUSH 10 ml Q8HR JESSICA Administration Sodium Chloride 1 spray 05/28/24 10:14 06/06/24 10:24 Saline 0.65% Demetris Soln 44 Ml Btl NASAL 1 spray Q2H PRN Administration Congestion Sodium Chloride 1 applic 06/02/24 14:47 Sodium Chloride Nasal Gel 14.1 Gm NASAL QID PRN Dry Nasal Passages Tamsulosin HCl 0.4 mg 05/30/24 09:00 06/06/24 09:39 Tamsulosin Hcl 0.4 Mg Capsule PO 0.4 mg DAILY JESSICA Administration Radiology Results: ITS Impressions Chest CT 06/04/24 14:52 IMPRESSION: 1. Worsened left lung disease, consistent with pneumonia. 2. 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 3. Small pleural effusions. 4. Mild emphysema. 5. Sclerotic lesions of bone, consistent with metastatic disease. Chest X-Ray 06/06/24 10:42 Impression: 1: Progression of left basilar airspace disease, compatible with pneumonia. 2: Bilateral pleural effusions, right greater than left. Labs Labs: Laboratory Results - last 24 hr 06/06/24 06:25 WBC 4.4 L RBC 3.23 L Hgb 8.5 L Hct 28.6 L MCV 88.5 MCH 26.3 MCHC 29.7 L RDW 21.3 H Plt Count 146 L MPV 11.4 H Immature Gran % (Auto) 1.4 H Neut % (Auto) 62.1 Lymph % (Auto) 24.3 [place] % (Auto) 10.1 H Eos % (Auto) 1.6 Baso % (Auto) 0.5 Lymph # (Auto) 1.08 [place] # (Auto) 0.5 Eos # (Auto) 0.1 Baso # (Auto) 0.0 Abs Immat Gran (auto) 0.06 H Absolute Neuts (auto) 2.8 Absolute Nucleated RBC 0.000 Nucleated RBC % 0.0 Platelet Estimate Slightly decreased Hypochromasia 1+ Anisocytosis 1+ Microcytosis 1+ Schistocytes None seen Sodium 136 L Potassium 4.6 Chloride 102 Carbon Dioxide 34 H Anion Gap 0 L BUN 15 Creatinine 1.00 Estim Creat Clear Calc 74 Estimated GFR > 60 Glucose 108 Calcium 8.7 C-Reactive Protein 5.7 H
[2024-06-06] MEDS: RIVAROXABAN 20 MG TABLET PO (18:00)
[2024-06-07] VITALS (15 sets, daily range): BP systolic 93–103; BP diastolic 52–63; PULSE 70–113; RESP 16–18; TEMP 35.8–36.7; O2SAT 98–100
[2024-06-07] MEDS: CEFEPIME 2 GM/NS 50 ML 2 GM/50 ML BAG IVPB ×4 (00:35→23:47)
[2024-06-07] MEDS: IPRATROPIUM BR 0.02% INH SOLN 0.5 MG/2.5 ML VIAL INHALATION ×2 (02:23→08:48)
[2024-06-07] MEDS: LIDOCAINE 2% VISC SOLN 30 ML, ALUMINUM/MAGNESIUM/SIMETH SUSP 30 ML, diphenhydrAMINE HCl... PO ×3 (06:15→20:39)
[2024-06-07] MEDS: CENTRAL LINE FLUSH 10 ML IV PUSH ×2 (06:15→20:39)
[2024-06-07] MEDS: BUDESONIDE RESPULE NEB 0.5 MG/2 ML AMP INHALATION (08:47)
--- NOTE | 2024-06-07 08:58 | P.PNPL_ITS ---
Progress Note: A&P Assessment and Plan (1) Pneumonia: Qualifiers: Laterality: right Lung location: lower lobe of lung Pneumonia type: due to unspecified organism Qualified Code(s): J18.9 - Pneumonia, unspecified organism Code(s): J18.9 - Pneumonia, unspecified organism Status: Acute Assessment and Plan: Patient has been admitted multiple times to the hospital over the last 6 months and treated with various antibiotics. He is immunosuppressed receiving chemotherapy. he was admitted with 1 blood cultures showing oxacillin resistant Staph epidermidis and another blood should culture showing oxacillin resistant Staph hominis. Initial COVID, influenza RSV swab negative. he presents with chills, sweats, worsening shortness of breath, wheezing and change in his phlegm. He was neutropenic on arrival. patient has been treated with Neupogen and is no longer neutropenic with a white blood cell count of 7.1. He is afebrile. Clinically he has improved from 10% at his baseline to currently 50% today. He continues to have unchanged chills and sweats his phlegm is improved to dark yellow with a normal volume today. chest x-ray today with worsening left mid lung infiltrate and CT scan today with unchanged right upper lobe consolidation and new left upper lobe and lower lobe infiltrates consistent with pneumonia. These are new since 05/09/2024. Patient has received multiple antibiotics including ceftriaxone and azithromycin on 05/28, vancomycin 05/29 through 06/02, levofloxacin 05/29 to current, and linezolid started 06/02 to current. Etiology includes infection ( bacterial, viral, doubt fungal or mycobacterial), cancer, doubt fluid overload. Plan: I will repeat blood cultures. I will continue vanco and linezolid for total 10 days (day 7) and levofloxacin for total 10 days (day 7). I will add cefepime. I will repeat COVID, influenza RSV. I will send a respiratory pathogen panel to [employer]. I will check urine Legionella and urine pneumococcal. I will send a serum mycoplasma IgM. I will send a QuantiFERON gold. Patient with Beatriz in his phlegm, I do not believe this is candidal pneumonia at this time. I will check a chest x-ray, and procalcitonin on 06/05/2024. 06/05/2024. Overall patient feels clinically the same. States he has 50% back to his baseline with some dyspnea on exertion. Currently the patient is on 4 L nasal cannula saturations 99%. White blood cell count 4.7, creatinine 1.0, procalcitonin 0.5. CRP 7.6. Chest x-ray with right upper lobe infiltrate and left mid lung and lower lung infiltrate stable compared with 06/02/2024. Repeat COVID, influenza and RSV RT PCR negative. Plan: clinically stable. Continue vanco and now linezolid, day 8. Continue levofloxacin day 8. Continue cefepime day 2. Respiratory pathogen panel, urine Legionella, urine pneumococcal, QuantiFERON gold and serum IgM mycoplasma pending. 06/06/24: overall the patient is slowly improving. States he is 60% back to his baseline. His chills are gone. He still has a cough and some phlegm production. currently is on 3 L nasal cannula saturations 95%. He has a worsening nasal congestion today. He is afebrile. White blood cell count 4.4, CRP decreased from 7.6 yesterday to 5.7 today. Chest x-ray shows continued left mid and lower lung infiltrate with possible progression from yesterday and slight improvement since the . Plan: Slow improvement. Continue vanc and now linezolid for day 9, levofloxacin day 9, cefepime day 3. Respiratory pathogen panel, urine Legionella, urine pneumococcal, QuantiFERON gold and serum IgM mycoplasma pending. I will increase his Flonase to 1 spray each nostril twice a day. I will add loratadine 10 mg a day for his nasal congestion. I will repeat a chest x-ray in the morning and if this is stable and he continues to improve will consider discharge home. 06/07/24: Patient says he feels the same as he did yesterday. 60% back to his baseline. Cough and phlegm production are unchanged. Nasal congestion is sligh tly improved. He is afebrile. Current saturations on 3 L nasal cannula 99%. Chest x-ray with stable left mid and lower lung infiltrate. Plan: Continue vanc and now linezolid, day 10 (stop after today dose), s/p levofloxacin day 10, cefepime day 4. Respiratory pathogen panel, urine Legionella, urine pneumococcal, QuantiFERON gold and serum IgM mycoplasma pending. If patient remains clinically stable will consider discharge on 06/08/2024 on these pulmonary medications: Cefdinir 300 mg p.o. b.i.d. x5 days Advair 230-21 at 2 puffs b.i.d. Rescue albuterol inhaler 2 puffs q.4 hours p.r.n. shortness of breath or wheezing. Rescue albuterol nebulizer to 0.5 mg q.4 hours p.r.n. shortness of breath or wheezing Guaifenesin 1200 mg p.o. b.i.d. p.r.n. Flonase 1 spray each nostril twice a day. Loratadine 10 mg p.o. q.day Oxygen at rest and activity with goal saturation 90-94%. 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 Chase, will follow with you. (2) COPD (chronic obstructive pulmonary disease): Code(s): J44.9 - Chronic obstructive pulmonary disease, unspecified Status: Chronic Assessment and Plan: GOLD grade 2 group E COPD Patient with 80 pack year tobacco use, quit in 2019. 08/05/2018 PFTs with FEV1 is 2.33 L, 66% predicted, no bronchodilator response, air trapping, hyperinflation, normal DLCO. CT scan 06/04/2024 with mild apical predominant paraseptal emphysema. chronic hypoxemic respiratory failure on 3.5 L at rest and with sleep and 4 with activity. patient is followed at [facility] and maintained on Advair, budesonide nebulizer and albuterol nebulizer.. 06/04/2024: Patient is being treated for pneumonia. He has no evidence of a COPD exacerbation. Patient has exertional tachycardia with his AFib at a rate of 130 when he returned from the bathroom today. His saturations were 98 on 4 L. Plan: Given his exertional tachycardia I will place him on nebulized ipratropium 0.5 mg q.6 hours, nebulized budesonide 500 mcg twice a day and discontinue his albuterol. If the patient has any worsening bronchospasm will restart levalbuterol. I do not feel he needs systemic steroids at this time. 06/05/24: Patient says he is breathing the same off of the beta agonists. He has no wheezing. Plan: Continue nebulized budesonide 500 twice a day and nebulized ipratropium q.6 hours. 06/06/24: States his breathing is about the same. No wheezing. His heart rate when I walked him in the room when from 96 to 110 with stable saturation at 95-96 on 3 L nasal cannula. plan: Continue nebulized budesonide and ipratropium q.6 hours. 06/07/24: No wheezing on exam. He monitors his heart rate when he walks and he says this is improved. Mouth pain has improved with Magic mouthwash, acyclovir and Diflucan. Plan: I have changed his budesonide and ipratropium nebulizers to his home Advair 230-21 at 2 puffs b.i.d.. Continue Flonase to 1 spray each nostril twice and loratadine 10 mg a day for his nasal congestion. Continue guaifenesin 1200 mg p.o. b.i.d.. Patient declines home O2 assessment are overnight oximetry to determine his oxygen needs as he states he is fine with his current oxygen and he measures his pulse oximetry at home frequently. (3) Adenocarcinoma, lung: Qualifiers: Laterality: right Qualified Code(s): C34.91 - Malignant neoplasm of unspecified part of right bronchus or lung Code(s): C34.90 - Malignant neoplasm of unspecified part of unspecified bronchus or lung Status: Chronic Assessment and Plan: regarding his lung cancer this was diagnosed in June of 2018 with a right upper lobe biopsy. Status post radiation therapy 12/18/2018. Status post XRT 03/10/2022. Patient currently on his 3rd line of chemotherapy and has received 3 cycles of Taxotere and cyramza per Dr. Baez, the last of which was on 05/21/2024. Plan was to repeat a CT scan in June 2024 after his 4th cycle. Plan: Per oncology note on 05/30/2024 the plan was to hold off on a CT scan until June of 2024. Repeat CT scan now without change of right upper lobe consolidation. (4) Atrial fibrillation: Code(s): I48.91 - Unspecified atrial fibrillation Status: Acute Assessment and Plan: Patient tells me at home when he walks his heart rate goes to 130. Patient walked from the bathroom to his bed on 4 L nasal cannula on 06/04/2024 and a returning to the bed his heart rate was 130. Plan: I will discontinue beta agonist at this time. Patient is receiving Lasix per hospitalist. Patient is on metoprolol 50 mg p.o. q.day. further management per hospitalist team. 06/06: His heart rate when I walked him in the room when from 96 to 110 with stable saturation at 95-96 on 3 L nasal cannula. Subjective Date/time seen: 06/07/24 08:58 Interval history: 06/04/2024: This is a new pulmonary consult for COPD, lung cancer, pneumonia. 63-year-old with a history of COPD, metastatic lung cancer to the bone, anxiety, atrial fibrillation on rivaroxaban, right upper extremity DVT and PE in 12/2018. regarding his lung cancer this was diagnosed in June of 2018 with a right upper lobe biopsy. Status post radiation therapy 12/18/2018. Status post XRT 03/10/2022. Patient currently on his 3rd line of chemotherapy and has received 3 cycles of Taxotere and cyrmza per Dr. Baez, the last of which was on 05/21/2024. Plan was to repeat a CT scan in June 2024 after his 4th cycle. Regarding his COPD. The patient is on home oxygen 3.5 L at rest and with sleep and 3 and half to 4 L with activity. The patient is limited in his activity at room to room mainly because his heart rate goes to 130 and then he breathes fast. At baseline he produces yellow phlegm 1 to 2 times a day. He takes albuterol nebulizer, budesonide nebulizer twice a day, Advair as an outpatient. He follows with Dr. Rad Maki and last saw him 3 months ago. Patient has been in the hospital monthly for the last 6 months. Last admitted 05/09 through 05/17/2024 with neutropenic fever, epistaxis and treated for pneumonia. He says that he did improve when he left. Patient was back to his baseline and on 05/25/2024 he developed increasing shortness of breath at rest and with exertion, wheezing, increased volume and change in color of his phlegm from yellow to dark mireles. He denied any cough. He was also having chills, sweats but no fever was documented. Symptoms progressed and patient presented to the emergency department on 05/28/2024 with a white blood cell count of 1.8, platelets 100, creatinine 0.9, COVID, influenza, RSV swab RT PC are negative, MRSA swab negative. Blood cultures were obtained and 1 grew out oxacillin resistant Staph epi and 1 grew out oxacillin resistant Staph hominis. Patient was initially treated with ceftriaxone and azithromycin on 05/28, vancomycin on 05/29 and levofloxacin was started on 05/29. Patient had a chest x-ray today that showed worsening left mid lung field infiltrates. CT scan of the chest shows right upper lobe consolidation that is unchanged and new left lower lobe infiltrates. Since patient was admitted he says that he is improved. When he presented he self he was 10% of his normal and now he says he has 50% back to his normal. The phlegm is now dark yellow. He continues to have chills and sweats but no documented fever. Beta minute patient had a sputum sample that g stain showed few white blood cells, moderate mixed bacterial gloria and yeast. I called laboratory to identify this used and it has returned Beatriz albicans. 06/04/2024: Patient was in the bathroom and when he walked from the bathroom to his bed on 4 L nasal cannula his saturations remained 98% and his heart rate was 130. He had dyspnea on exertion with this activity. His white blood cell count is 7.1, creatinine is 1.0. 06/05/2024. Overall patient feels clinically the same. States he has 50% b ack to his baseline with some dyspnea on exertion. Currently the patient is on 4 L nasal cannula saturations 99%. White blood cell count 4.7, creatinine 1.0, procalcitonin 0.5. CRP 7.6. Chest x-ray with right upper lobe infiltrate and left mid lung and lower lung infiltrate stable compared with 06/02/2024. Repeat COVID, influenza and RSV RT PCR negative. 06/06/24: overall the patient is slowly improving. States he is 60% back to his baseline. His chills are gone. He still has a cough and some phlegm production. He has a worsening nasal congestion today. He is afebrile. White blood cell count 4.4, CRP decreased from 7.6 yesterday to 5.7 today. Chest x- ray shows continued left mid and lower lung infiltrate with possible progression from yesterday and slight improvement since the . 06/07/24: Patient says he feels the same as he did yesterday. 60% back to his baseline. Cough and phlegm production are unchanged. Nasal congestion is slightly improved. He is afebrile. Current saturations on 3 L nasal cannula 99%. Chest x-ray with stable left mid and lower lung infiltrate. DATA: 06/04/24 EXAMINATION:CT diagnostic chest wo con INDICATION: Worsening pneumonia. TECHNIQUE: Computed tomography (CT) of the chest was performed without intravenous contrast. Automated exposure control and iterative reconstruction technique were employed. The dose-length product (DLP) was 282.17 mGy-cm. COMPARISON: Chest CT 05/09/2024 FINDINGS: There are airspace opacities with volume loss involving right upper lobe and right perihilar region, consistent with radiation fibrosis. There is mild emphysema. There are patchy groundglass opacities with small airspace opacity component and septal thickening involving the left upper lobe and left l ower lobe, consistent with pneumonia. There are small pleural effusions. The heart size is normal. There are coronary artery calcifications. No pericardial effusion. There is a left internal jugular port with tip at superior cavoatrial junction. There are changes of cholecystectomy. There is mild bilateral gynecomastia. Epidural electrodes are noted. There are scattered sclerotic lesions of bone. IMPRESSION: 1. Worsened left lung disease, consistent with pneumonia. 2. 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 3. Small pleural effusions. 4. Mild emphysema. 5. Sclerotic lesions of bone, consistent with metastatic disease. * 05/09/24CXR; Persistent volume loss in the right hemithorax and unchanged consolidation in the posterior right mid to upper lung zone and at the posterior right lower lung zone, bladder likely due at least in part to a small right pleural effusion. Lung remains clear. No pneumothorax or left-sided pleural effusion. Arch size is normal. Median sternotomy wires and mediastinal surgical clips are seen, likely from prior coronary artery bypass grafting. Left internal jugular central venous port catheter with distal tip at the caudal superior vena cava. Spinal stimulator leads extend the length of the visualized lower cervical to upper lumbar central canal with lead tips terminating in the upper cervical spine on the prior radiographs. There also appears. The tip of a intrathecal catheter projects over the posterior central canal of the lower thoracic spine. IMPRESSION: 1. Persistent volume loss with chronic opacities in the posterior right mid to upper lung zone on CT. 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 2. No recent interval change in a small right pleural effusion with associated compressive atelectasis in the right lower lobe. 3. Difficult to absolutely exclude superimposed pneumonia however there are no new opacities to more specifically suggest this. * 05/09/2024; CTA No pulmonary embolism. Small bilateral pleural effusions. Increased size of a region of consolidation at the posterior right lower lobe with subtle surrounding tree-in-bud opacities suggestive of pneumonia superimposed over chronic atelectasis/scarring. Similar there are new small centrilobular groundglass opacities and tree-in-bud opacities in the right upper and middle lung at the periphery of an unchanged region of consolidation with volume loss and architectural distortion at the posterior right upper lung likely related to radiation fibrosis for reported prior lung cancer. New small patchy region of groundglass opacity and a few small centrilobular nodules at the junction of the lingula and left upper lobe also suspicious for pneumonia. There are a few unchanged larger and more solid-appearing subcentimeter pulmonary nodules most prominent in the left lower lobe suspicious for metastatic disease. No pulmonary edema or pneumothorax. Heart size is normal but shifted towards the right due to the volume loss in the right lung. No pericardial effusion. Left internal jugular central venous port catheter with distal tip at the superior cavoatrial junction. Thoracic aorta is normal in caliber with no dissection. No pathologically enlarged thoracic lymphadenopathy. Cholecystectomy clips at the gallbladder fossa. Diffuse hepatic steatosis. Median sternotomy. Scattered patchy sclerotic bone lesions most prominent in the lower thoracic spine consistent with metastatic disease. Distal tip of an intrathecal catheter likely for pain management in the posterior central canal at the level of T9. There are spinal stimulator leads entering the central canal at level of T12-L1 which extend through the thoracic and lower cervical central canal extending beyond the cephalad margin of the field of imaging. IMPRESSION: 1. No pulmonary embolism. 2. Bilateral scattered mild new lung disease, composed predominantly of tree-in-bud opacities and small groundglass opacities suspicious for pneumonia 3. Unchanged small right and new small left pleural effusions. 4. A couple regions of chronic consolidation with volume loss in the right mid to upper lung and right lower lung likely atelectasis/scarring related to reported treated lung cancer. 5. Unchanged scattered subcentimeter solid pulmonary nodules and scattered patchy sclerotic bone lesions consistent with metastatic disease. 05/15/2022 EXAMINATION: CTA chest PE protocol INDICATION: Shortness of breath and cough. Right chest pain. COMPARISON: Chest CT 04/22/2022 FINDINGS: There are airspace and groundglass opacities with volume loss and architectural distortion involving right upper lobe and perihilar right lower lobe. There are patchy groundglass opacities in basilar right lower lobe. There are patchy groundglass opacities in left upper lobe. There is a small right pleural effusion. The heart size is normal. There is a left internal jugular port with tip in right atrium. There is no pulmonary embolus. There are changes of cholecystectomy. There are scattered sclerotic lesions of bone, consistent with metastatic disease. Median sternotomy wires are noted. IMPRESSION: 1. No pulmonary embolus. 2. Airspace and groundglass opacities with volume loss and architectural distortion involving right upper lobe and perihilar right lower lobe, consistent with primary bronchogenic carcinoma and changes of radiation therapy without or with superimposed pneumonia. 3. Groundglass opacities in right lower lobe and left upper lobe with improvement from 04/22/2022, which may be radiation pneumonitis or pneumonia. 4. Stable small right pleural effusion. 5. Scattered sclerotic lesions of bone, consistent with metastatic disease. 04/22/2022 EXAMINATION: CTA chest PE protocol INDICATION: Shortness of breath. Dyspnea. History of pulmonary embolism. History of lung cancer metastatic to lymph nodes and bone COMPARISON: 04/22/2022 portable AP chest 12/29/2021 CT pulmonary scan FINDINGS: There is diminished size of the large right posterior perihilar lung mass since 12/29/2021. Residual tumor and extensive surrounding right upper lobe and superior segment right lower lobe infiltrate are noted. There is mild right pleural effusion. There are patchy groundglass infiltrates scattered in the left upper lobe and right lower lobe. Normal heart size. No pericardial effusion. No thoracic aortic aneurysm or dissection. No pulmonary embolism is detected. Status post sternotomy. There are scattered osteosclerotic lesions of the cervical and thoracic spine, suggesting metastatic disease. Consider lung and possibly prostate skeletal metastasis. IMPRESSION:? No evidence of pulmonary embolism Diminished size of right posterior perihilar lung mass since 12/29/2021. There is extensive infiltrate in the right upper lobe and superior segment right lower lobe and there are scattered patchy groundglass infiltrates in the right lower lobe and particularly left upper lobe No evidence of pulmonary embolism Osteoblastic skeletal metastases; consider prostate cancer skeletal metastases in addition to lung cancer metastases. 02/24/2022 Echo Summary ? 1. Left ventricular chamber dimension is normal. ? 2. Left ventricular systolic function is normal, estimated at 55-60%. ? 3. The left ventricular diastolic function is abnormal. ? 4. E/e' 10 is mildly elevated. ? 5. There is mild aortic valve sclerosis. ? 6. There is trace mitral valve regurgitation. ? 7. There is trace tricuspid valve regurgitation. Right Ventricle ? Right ventricular systolic function is normal and with normal TAPSE 1.8 cm. ? Right ventricular chamber dimension is normal. Right Atria ? Right atrial chamber dimension is normal. Atrial Septum ? Agitated saline injection with and without valsalva maneuver opacified right side cardiac chambers without shunt to left side cardiac chambers. ? Intact interatrial septum visualized by 2D and agitated saline imaging. Tricuspid Valve ? There is trace tricuspid valve regurgitation. ? RVSP is not calculated due to an inadequate TR jet. 08/05/2018 PFTs Findings: Spirometry: ? There is decreased maximal expiratory airflow at all lung volumes with concave expiratory flow tracing.? The contour the inspiratory flow tracing is normal.? The pre bronchodilator FVC is 4.44 L, 89% predicted.? The pre bro nchodilator FEV1 is 2.33 L, 66% predicted.? The pre bronchodilator FEV1:? FVC ratio is 53%.? The post bronchodilator FVC is 4.51 L, representing a 2% increase.? The post bronchodilator FEV1 is 2.54 L, representing a 9% increase.? The post bronchodilator FEV1:? FVC ratio is 56%.? Plethysmography:? The total lung capacity is 9.12 L, 127% predicted.? The functional residual capacity is 5.35 L, 131% predicted.? The residual volume is 4.63 L, 188% predicted.? Plethysmography the diffusing capacity unadjusted for hemoglobin and carboxyhemoglobin is 19.3, 78% predicted.? The diffusing capacity adjusted for alveolar volume is 3.39, 86% predicted. My Impression: There is a moderate obstructive abnormality without significant improvement after inhaling a single dose of albuterol. The increase in residual volume is consistent with air trapping from an obstructive abnormality.? Hyperinflation is present as demonstrated by the increase in functional residual capacity and total lung capacity and is consistent with an obstructive abnormality. The diffusing capacity is normal. There are no prior studies for comparison Review of Systems Constitutional: Constitutional: Reports no additional constitutional complaints Eyes: Eyes: Reports no additional eye complaints ENT: Reports system reviewed and no additional complaints, except as documented Cardiovascular: Cardiovascular: Reports no additional cardiovascular complaints Respiratory: Respiratory: Reports no additional respiratory complaints Gastrointestinal: Gastrointestinal: Reports no additional gastrointestinal complaints Musculoskeletal: Musculoskeletal: Reports no additional musculoskeletal complaints Neurologic: Reports system reviewed and no additional complaints, except as documented Psychiatric: Psychiatric: Reports no additional psychiatric complaints Endocrine: Endocrine: Reports no additional endocrine complaints Hematologic/Lymphatic: Hematologic/Lymphatic: Reports no additional hematologic/lymphatic complaints Allergic/Immunologic: Allergic/Immunologic: Reports no additional allergic/immunologic complaints Exam Const: General: cooperative and comfortable Orientation/consciousness: oriented to person, oriented to place and oriented to time HENMT: Head: normal to inspection Ears: hearing grossly normal bilaterally Eyes: General: appearance normal, both eyes and all related structures Neck: Neck: normal visual inspection Chest: Chest palpation & inspection: normal inspection of the chest Resp: Effort & Inspection: normal respiratory effort and able to speak in complete sentences Auscultation: no crackles, no rales, no rhonchi, no wheezes and diminished lung sounds Other: Right upper lobe decreased breath sounds. Cardio: Jugular venous distension: no JVD GI: Inspection: normal to inspection Skin: General skin exam: normal color Neuro: General: oriented to person, oriented to place and oriented to time Extrem: General: normal to inspection and edema Psych: Appearance: grossly normal Objective Data Vital Signs Vital Signs: Vital Signs - 24 hr 06/06/24 09:39 06/06/24 12:00 06/06/24 13:58 Temperature 36.6 C Pulse Rate 96 75 91 Respiratory Rate 20 Blood Pressure 97/52 L Pulse Oximetry 98 Oxygen Delivery Oxygen Flow Rate 06/06/24 15:16 06/06/24 15:26 06/06/24 16:00 Temperature Pulse Rate 107 H 88 85 Respiratory Rate 18 18 Blood Pressure Pulse Oximetry Oxygen Delivery Oxygen Flow Rate 06/06/24 19:53 06/06/24 19:55 06/06/24 20:00 Temperature Pulse Rate 104 H Respiratory Rate 18 Blood Pressure Pulse Oximetry 99 95 Oxygen Delivery Nasal Cannula Nasal Cannula Oxygen Flow Rate 3 4 06/06/24 20:00 06/06/24 20:03 06/06/24 21:20 Temperature 36.1 C L Pulse Rate 252 H 102 H 101 H Respiratory Rate 18 20 Blood Pressure 105/63 Pulse Oximetry 98 Oxygen Delivery Oxygen Flow Rate 06/06/24 22:27 06/07/24 00:00 06/07/24 02:25 Temperature Pulse Rate 84 84 70 Respiratory Rate 17 Blood Pressure Pulse Oximetry Oxygen Delivery Oxygen Flow Rate 06/07/24 02:33 06/07/24 04:00 06/07/24 06:00 Temperature 35.8 C L Pulse Rate 75 76 84 Respiratory Rate 17 18 Blood Pressure 102/58 L Pulse Oximetry 100 Oxygen Delivery Oxygen Flow Rate 06/07/24 08:52 06/07/24 08:52 Temperature Pulse Rate 94 Respiratory Rate 18 Blood Pressure Pulse Oximetry 98 Oxygen Delivery Nasal Cannula Oxygen Flow Rate 3 Intake/Output Intake/Output: Intake & Output 06/04/24 06/05/24 06/06/24 06/07/24 23:59 23:59 23:59 23:59 Intake Total 1201 2097 1694 410 Output Total 156 433 3431 650 Balance 401 1147 -306 -240 Meds/Results Medications: Active Medications Generic Name Dose Route Start Last Admin Trade Name Freq PRN Reason Stop Dose Admin Acetaminophen 650 mg 05/28/24 07:51 06/05/24 04:10 Acetaminophen 325 Mg Tablet PO 650 mg Q4H PRN Administration Mild Pain (1-3) or Fever Acyclovir 400 mg 06/05/24 15:00 06/06/24 22:27 Acyclovir 400 Mg Tablet PO 400 mg 5 TIMES DAILY JESSICA Administration Budesonide 0.5 mg 06/04/24 08:00 06/07/24 08:47 Budesonide Respule Neb 0.5 Mg/2 Ml Amp INHALATION 0.5 mg Q12HRT JESSICA Administration Lidocaine HCl 30 ml/ Al Hydrox 0 ml 05/29/24 10:08 06/05/24 13:29 /Mg Hydrox/Simethicone 30 ml/ PO 5 ml Diphenhydramine HCl 75 mg Q4HWA PRN Administration mouth soreness Lidocaine HCl 30 ml/ Al Hydrox 0 ml 06/05/24 17:00 06/07/24 06:15 /Mg Hydrox/Simethicone 30 ml/ PO 5 ml Diphenhydramine HCl 75 mg Q4HWA JESSICA Administration Cyanocobalamin 2,000 mcg 05/30/24 09:00 06/06/24 09:37 Cyanocobalamin 1,000 Mcg Tablet PO 2,000 mcg QAM JESSICA Administration Cyanocobalamin 500 mcg 05/30/24 09:00 06/06/24 09:37 Cyanocobalamin 500 Mcg Tablet PO 500 mcg QAM JESSICA Administration Ergocalciferol 50,000 units 06/02/24 09:00 06/02/24 08:03 Ergocalciferol 50,000 Units Capsule PO 50,000 units WEEKLY JESSICA Administration Ferrous Sulfate 325 mg 05/31/24 12:00 06/06/24 12:45 Ferrous Sulfate [address] PO 325 mg DAILY@1200 JESSICA Administration Fluconazole 200 mg 06/06/24 09:00 06/06/24 09:39 Fluconazole 100 Mg Tablet PO 200 mg QAM JESSICA Administration Fluticasone Propionate 1 spray 05/29/24 10:30 06/06/24 23:23 Fluticasone Propionate 0.05% Na Spr 16 Gm Btl (*Bkc) NASAL 1 spray Q12HR JESSICA Administration Folic Acid 1 mg 05/30/24 09:00 06/06/24 09:39 Folic Acid 1 Mg Tablet PO 1 mg DAILY JESSICA Administration Furosemide 40 mg 06/06/24 09:00 06/06/24 18:00 Furosemide 40 Mg Tablet PO 40 mg BID JESSICA Administration Guaifenesin 1,200 mg 05/29/24 21:00 06/06/24 22:27 Guaifenesin 12 Hr 600 Mg Tabcr PO 1,200 mg Q12HR JESSICA Administration Heparin Sodium (Beef Lung) 50 units 05/28/24 09:00 06/06/24 09:49 Heparin Flush 50 Units/5 Ml Syringe IV PUSH Not Given QAM JESSICA Heparin Sodium (Beef Lung) 50 units 05/28/24 07:25 Heparin Flush 50 Units/5 Ml Syringe IV PUSH PRN PRN after intermittent infusion Heparin Sodium (Beef Lung) 50 units 05/28/24 07:25 Heparin Flush 50 Units/5 Ml Syringe IV PUSH PRN PRN after blood draws Heparin Sodium (Porcine) 500 units 05/28/24 07:25 06/06/24 12:51 Heparin Sodium Lock Flush 500 Units/5 Ml Syringe IV PUSH 500 units PRN PRN Administration see comments below Cefepime HCl 2 gm in 50 mls @ 100 mls/hr 06/04/24 16:00 06/07/24 01:05 Maxipime 2 Gm/Ns 50 Ml IVPB Infused Q8H JESSICA Infusion Ipratropium [place] 0.5 mg 06/04/24 20:00 06/07/24 08:48 Ipratropium Br 0.02% Inh Soln 0.5 Mg/2.5 Ml Vial INHALATION 0.5 mg Q6HRT JESSICA Administration Levalbuterol HCl 0.63 mg 06/04/24 16:38 Levalbuterol Neb 1.25 Mg/3 Ml INHALATION Q6HRT PRN Wheezing Linezolid 600 mg 06/02/24 20:00 06/06/24 22:27 Linezolid 600 Mg Tablet PO 06/07/24 21:01 600 mg Q12HR JESSICA Administration Loratadine 10 mg 06/06/24 09:35 06/06/24 09:47 Loratadine 10 Mg Tablet PO 10 mg QAM JESSICA Administration Lorazepam 0.5 mg 05/31/24 13:03 06/06/24 22:27 Lorazepam (*Crx) 0.5 Mg Tablet PO 0.5 mg Q6H PRN Administration Anxiety Metoprolol Tartrate 50 mg 06/04/24 21:00 06/06/24 22:27 Metoprolol Tartrate 50 Mg Tab PO 50 mg Q12HR JESSICA Administration Ondansetron HCl 4 mg 05/28/24 07:51 05/30/24 08:35 Ondansetron Inj 4 Mg/2 Ml Vial IV PUSH 4 mg Q4H PRN Administration Nausea Oxycodone HCl 40 mg 05/29/24 21:00 06/06/24 22:27 Oxycodone Hcl (*Crx) 40 Mg Tab Sr 12hr PO 40 mg Q12H JESSICA Administration Oxycodone HCl 5 mg 06/06/24 18:31 Oxycodone Hcl (*Crx) 5 Mg Tab Ir PO Q6H PRN Breakthrough Pain Pantoprazole Sodium 40 mg 05/29/24 21:00 06/06/24 22:28 Pantoprazole 40 Mg Tablet PO 40 mg Q12HR JESSICA Administration Pregabalin 225 mg 05/29/24 17:00 06/06/24 18:00 Pregabalin (*Crx) 75 Mg Capsule PO 225 mg BID JESSICA Administration Rivaroxaban 20 mg 05/28/24 17:00 06/06/24 18:00 Rivaroxaban 20 Mg Tablet PO 20 mg DAILY@1700 JESSICA Administration Senna/Docusate Sodium 1 tab 05/30/24 12:23 06/04/24 16:06 Senna/Docusate Sodium Tablet PO 1 tab DAILY PRN Administration constipation Sodium Chloride 10 ml 05/28/24 14:00 06/07/24 06:15 Central Line Flush IV PUSH 10 ml Q8HR JESSICA Administration Sodium Chloride 1 spray 05/28/24 10:14 06/06/24 10:24 Saline 0.65% Demetris Soln 44 Ml Btl NASAL 1 spray Q2H PRN Administration Congestion Sodium Chloride 1 applic 06/02/24 14:47 Sodium Chloride Nasal Gel 14.1 Gm NASAL QID PRN Dry Nasal Passages Tamsulosin HCl 0.4 mg 05/30/24 09:00 06/06/24 09:39 Tamsulosin Hcl 0.4 Mg Capsule PO 0.4 mg DAILY JESSICA Administration Radiology Results: ITS Impressions Chest CT 06/04/24 14:52 IMPRESSION: 1. Worsened left lung disease, consistent with pneumonia. 2. 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 3. Small pleural effusions. 4. Mild emphysema. 5. Sclerotic lesions of bone, consistent with metastatic disease. Chest X-Ray 06/07/24 06:13 IMPRESSION: 1. Stable airspace opacities in left mid and lower lung zones, consistent with pneumonia. 2. 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 3. Stable small right pleural effusion. 4. Sclerotic lesions of bone, consistent with metastatic disease.
[2024-06-07] MEDS: FLUTICASONE/SALMETEROL 230-21 MCG INHALER 1 PUFF 2 PUFF INHALATION ×2 (09:02→20:14)
[2024-06-07] MEDS: LORazepam (*CRX) 0.5 MG TABLET PO ×3 (09:43→22:31)
[2024-06-07] MEDS: CYANOCOBALAMIN 1,000 MCG TABLET 2000 MCG PO (09:43)
[2024-06-07] MEDS: oxyCODONE HCL (*CRX) 40 MG TAB SR 12HR PO ×2 (09:43→20:36)
[2024-06-07] MEDS: CYANOCOBALAMIN 500 MCG TABLET PO (09:43)
[2024-06-07] MEDS: LINEZOLID 600 MG TABLET PO ×2 (09:44→20:36)
[2024-06-07] MEDS: TAMSULOSIN HCL 0.4 MG CAPSULE PO (09:44)
[2024-06-07] MEDS: FOLIC ACID 1 MG TABLET PO (09:44)
[2024-06-07] MEDS: PANTOPRAZOLE 40 MG TABLET PO ×2 (09:44→20:36)
[2024-06-07] MEDS: PREGABALIN (*CRX) 75 MG CAPSULE 225 MG PO ×2 (09:44→18:29)
[2024-06-07] MEDS: ACYCLOVIR 400 MG TABLET PO ×5 (09:44→20:36)
[2024-06-07] MEDS: guaiFENesin 12 HR 600 MG TABCR 1200 MG PO ×2 (09:44→20:35)
[2024-06-07] MEDS: FLUCONAZOLE 100 MG TABLET 200 MG PO (09:44)
[2024-06-07] MEDS: FUROSEMIDE 40 MG TABLET PO ×2 (09:44→18:29)
[2024-06-07] MEDS: METOPROLOL TARTRATE 50 MG TAB PO ×2 (09:45→20:36)
[2024-06-07] MEDS: LORATADINE 10 MG TABLET PO (09:45)
[2024-06-07] MEDS: FLUTICASONE PROPIONATE 0.05% NA SPR 16 GM BTL (*BKC) 1 SPRAY NASAL ×2 (09:51→20:37)
[2024-06-07] MEDS: FERROUS SULFATE 325 MG TABLET DR PO (12:36)
--- NOTE | 2024-06-07 14:37 | PM.IMPN ---
Progress Note: A&P Assessment and Plan (1) Pneumonia: Code(s): J18.9 - Pneumonia, unspecified organism Status: Acute Assessment and Plan: Patient here for SOB. CXR showing new LLL airspace disease. No fevers. He was neutropenic on admission with ANC at 1000. Influenza, RSV and COVID PCR were negative. IgG and IgM levels were low. MRSA nasal swab was negative. No urine studies obtained. BCx collected and he was given Rocephin and Azithro once. Vanco and Levaquin added. Oncology consulted and he was started on Neupogen. WBC has normalized now. Vanco 05/29-06/02 then changed to Linezolid. Levaquin started 05/28. BCx 05/28 grew Staph Epi in one aerobic bottle and Staph hominis in one anaerobic bottle both sensitive to Vanco. BCx 06/04 NGTD Sputum Cx with light growth of Beatriz albicans CXR 06/[address] Chest 06/04 showing worsening left lung disease, consistent with pneumonia, chronic radiation fibrosis involving RUL and right perihilar region, small pleural effusions, mild emphysema and sclerotic lesions of bone, consistent with metastatic disease. BNP 1050 with leg edema so started on Lasix IV but BP soft so this was held. Resume home oral Lasix He completed a 10 day course of Levaquin 06/06. Currently on oral Linezolid through today. Cefepime added Day 3. Patient still not feeling well. WBC normal and no fevers. Remains stable on his home 3-4L O2. Pulmonary consulted and appreciate their input. TB testing with other Ag markers ordered. Yeast in sputum may be from oral lesions. Treated for stomatitis acyclovir and Diflucan since immunosuppressed. CRP trending down Continue vest therapy. Continue abx. (2) Bacteremia: Code(s): R78.81 - Bacteremia Status: Acute Assessment and Plan: As above (3) CHF (congestive heart failure): Code(s): I50.9 - Heart failure, unspecified Status: Acute Assessment and Plan: Legs mildly edematous. BNP 1050. Consider acute on chronic diastolic CHF. Echo as below. He has been getting prn IV Lasix. We scheduled IV Lasix but BP soft so this was held Edema better. Continue compression hose. Continue home oral lasix (4) Stomatitis: Code(s): K12.1 - Other forms of stomatitis Status: Acute Assessment and Plan: As above (5) Pancytopenia: Code(s): D61.818 - Other pancytopenia Status: Acute Assessment and Plan: As above. WBC okay. Plt count stable and above 100K. Follow (6) Chronic respiratory failure with hypoxia, on home oxygen therapy: Code(s): J96.11 - Chronic respiratory failure with hypoxia; Z99.81 - Dependence on supplemental oxygen Status: Acute Assessment and Plan: ABG on admission with 7.44/36/96 on 4L. He has chronic hypoxic respiratory failure requiring 3-4L chronically. His oxygen requirement remains stable and at his baseline. Follow (7) Atrial fibrillation with RVR: Code(s): I48.91 - Unspecified atrial fibrillation Status: Acute Assessment and Plan: Patient with hx of AFib s/p failed ablation in the past. Presented with AFib with RVR but EKG showing sinus tachycardia but with considerable artifact. Metoprolol continued and dose increased. Heart rate was still elevated so Albuterol was stopped. HR better now. Has converted to NSR. EKG showing NSR HR still mildly elevated at times but maintaining sinus. Continue Lopressor at current dose. Continue Xarelto. 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 Followed by Dr. Parson at [facility]. Echo 05/29/24 showing EF 55-60%, hypokinesis inferoseptal segment and normal left atria. (9) Adenocarcinoma, lung: Qualifiers: Laterality: right Qualified Code(s): C34.91 - Malignant neoplasm of unspecified part of right bronchus or lung Code(s): C34.90 - Malignant neoplasm of unspecified part of unspecified bronchus or lung Status: Chronic Assessment and Plan: Patient with non-small cell carcinoma diagnosed June 2018. he follows with Dr. Baez and Dr. Cavazos Status post XRT in 2018 and again in fall 2021 due to recurrence. Now with metastatic disease to lymph nodes and bone. He is currently receiving chemotherapy Imaging showing radiation fibrosis RUL and right louise-hilar region as well as scattered sclerotic bone lesions consistent with mets. He is full code. (10) Pleural effusion on right: Code(s): J90 - Pleural effusion, not elsewhere classified Status: Acute Assessment and Plan: CT scan showing small bilateral pleural effusions. Monitor Plan History of DVT on Xarelto Code status full code Subjective Date/time seen: 06/07/24 14:37 Interval history: 63yo male with HTN, AFib, ch respiratory failure on 3L, COPD, hx of DVT/PE and stage IV lung cancer here for SOB. He feels 'so-so'. Slept well. Cough productive of yellow sputum. Epistaxis is better. +BMs. He is not sure if he will feel ready for discahrge tomorrow. Exam Narrative: AF 96.5 102/58 95 18 98% 3L Gen - NARD Chest - mild coarse BS. Port accessed in the left upper chest CV - RRR. Tele showing no acute dysrhythmias Abd - Soft, NT/ND, Positive BS Ext - trace pedal edema with Gera hose in place. Psych - Nml mood and affect Skin - Warm and dry Objective Data Vital Signs Vital Signs: Vital Signs - 24 hr 06/06/24 15:16 06/06/24 15:26 06/06/24 16:00 Temperature Pulse Rate 107 H 88 85 Respiratory Rate 18 18 Blood Pressure Pulse Oximetry Oxygen Delivery Oxygen Flow Rate 06/06/24 19:53 06/06/24 19:55 06/06/24 20:00 Temperature Pulse Rate 104 H Respiratory Rate 18 Blood Pressure Pulse Oximetry 99 95 Oxygen Delivery Nasal Cannula Nasal Cannula Oxygen Flow Rate 3 4 06/06/24 20:00 06/06/24 20:03 06/06/24 21:20 Temperature 96.9 F L Pulse Rate 252 H 102 H 101 H Respiratory Rate 18 20 Blood Pressure 105/63 Pulse Oximetry 98 Oxygen Delivery Oxygen Flow Rate 06/06/24 22:27 06/07/24 00:00 06/07/24 02:25 Temperature Pulse Rate 84 84 70 Respiratory Rate 17 Blood Pressure Pulse Oximetry Oxygen Delivery Oxygen Flow Rate 06/07/24 02:33 06/07/24 04:00 06/07/24 06:00 Temperature 96.5 F L Pulse Rate 75 76 84 Respiratory Rate 17 18 Blood Pressure 102/58 L Pulse Oximetry 100 Oxygen Delivery Oxygen Flow Rate 06/07/24 08:00 06/07/24 08:00 06/07/24 08:52 Temperature Pulse Rate 82 94 Respiratory Rate 18 Blood Pressure Pulse Oximetry Oxygen Delivery Nasal Cannula Oxygen Flow Rate 4 06/07/24 08:52 06/07/24 09:06 06/07/24 09:45 Temperature Pulse Rate 95 106 H Respiratory Rate 18 Blood Pressure Pulse Oximetry 98 Oxygen Delivery Nasal Cannula Oxygen Flow Rate 3 06/07/24 12:00 Temperature Pulse Rate 95 Respiratory Rate Blood Pressure Pulse Oximetry Oxygen Delivery Oxygen Flow Rate Intake/Output Intake/Output: Intake & Output 06/04/24 06/05/24 06/06/24 06/07/24 23:59 23:59 23:59 23:59 Intake Total 1201 9627 169 700 Output Total 869 505 2057 1200 Balance 401 9342 -717 -291 Meds/Results Medications: Active Medications Generic Name Dose Route Start Last Admin Trade Name Freq PRN Reason Stop Dose Admin Acetaminophen 650 mg 05/28/24 07:51 06/05/24 04:10 Acetaminophen 325 Mg Tablet PO 650 mg Q4H PRN Administration Mild Pain (1-3) or Fever Acyclovir 400 mg 06/05/24 15:00 06/07/24 12:36 Acyclovir 400 Mg Tablet PO 400 mg 5 TIMES DAILY JESSICA Administration Lidocaine HCl 30 ml/ Al Hydrox 0 ml 05/29/24 10:08 06/05/24 13:29 /Mg Hydrox/Simethicone 30 ml/ PO 5 ml Diphenhydramine HCl 75 mg Q4HWA PRN Administration mouth soreness Lidocaine HCl 30 ml/ Al Hydrox 0 ml 06/05/24 17:00 06/07/24 12:36 /Mg Hydrox/Simethicone 30 ml/ PO Not Given Diphenhydramine HCl 75 mg Q4HWA JESSICA Cyanocobalamin 2,000 mcg 05/30/24 09:00 06/07/24 09:43 Cyanocobalamin 1,000 Mcg Tablet PO 2,000 mcg QAM JESSICA Administration Cyanocobalamin 500 mcg 05/30/24 09:00 06/07/24 09:43 Cyanocobalamin 500 Mcg Tablet PO 500 mcg QAM JESSICA Administration Ergocalciferol 50,000 units 06/02/24 09:00 06/02/24 08:03 Ergocalciferol 50,000 Units Capsule PO 50,000 units WEEKLY JESSICA Administration Ferrous Sulfate 325 mg 05/31/24 12:00 06/07/24 12:36 Ferrous Sulfate [address] PO 325 mg DAILY@1200 JESSICA Administration Fluconazole 200 mg 06/06/24 09:00 06/07/24 09:44 Fluconazole 100 Mg Tablet PO 200 mg QAM JESSICA Administration Fluticasone Propionate 1 spray 05/29/24 10:30 06/07/24 09:51 Fluticasone Propionate 0.05% Na Spr 16 Gm Btl (*Bkc) NASAL 1 spray Q12HR JESSICA Administration Folic Acid 1 mg 05/30/24 09:00 06/07/24 09:44 Folic Acid 1 Mg Tablet PO 1 mg DAILY JESSICA Administration Furosemide 40 mg 06/06/24 09:00 06/07/24 09:44 Furosemide 40 Mg Tablet PO 40 mg BID JESSICA Administration Guaifenesin 1,200 mg 05/29/24 21:00 06/07/24 09:44 Guaifenesin 12 Hr 600 Mg Tabcr PO 1,200 mg Q12HR JESSICA Administration Heparin Sodium (Beef Lung) 50 units 05/28/24 09:00 06/07/24 09:51 Heparin Flush 50 Units/5 Ml Syringe IV PUSH 50 units QAM JESSICA Administration Heparin Sodium (Beef Lung) 50 units 05/28/24 07:25 Heparin Flush 50 Units/5 Ml Syringe IV PUSH PRN PRN after intermittent infusion Heparin Sodium (Beef Lung) 50 units 05/28/24 07:25 Heparin Flush 50 Units/5 Ml Syringe IV PUSH PRN PRN after blood draws Heparin Sodium (Porcine) 500 units 05/28/24 07:25 06/06/24 12:51 Heparin Sodium Lock Flush 500 Units/5 Ml Syringe IV PUSH 500 units PRN PRN Administration see comments below Cefepime HCl 2 gm in 50 mls @ 100 mls/hr 06/04/24 16:00 06/07/24 10:27 Maxipime 2 Gm/Ns 50 Ml IVPB Infused Q8H JESSICA Infusion Levalbuterol HCl 0.63 mg 06/04/24 16:38 Levalbuterol Neb 1.25 Mg/3 Ml INHALATION Q6HRT PRN Wheezing Linezolid 600 mg 06/02/24 20:00 06/07/24 09:44 Linezolid 600 Mg Tablet PO 06/07/24 21:01 600 mg Q12HR JESSICA Administration Loratadine 10 mg 06/06/24 09:35 06/07/24 09:45 Loratadine 10 Mg Tablet PO 10 mg QAM JESSICA Administration Lorazepam 0.5 mg 05/31/24 13:03 06/07/24 09:43 Lorazepam (*Crx) 0.5 Mg Tablet PO 0.5 mg Q6H PRN Administration Anxiety Metoprolol Tartrate 50 mg 06/04/24 21:00 06/07/24 09:45 Metoprolol Tartrate 50 Mg Tab PO 50 mg Q12HR JESSICA Administration Ondansetron HCl 4 mg 05/28/24 07:51 05/30/24 08:35 Ondansetron Inj 4 Mg/2 Ml Vial IV PUSH 4 mg Q4H PRN Administration Nausea Oxycodone HCl 40 mg 05/29/24 21:00 06/07/24 09:43 Oxycodone Hcl (*Crx) 40 Mg Tab Sr 12hr PO 40 mg Q12H JESSICA Administration Oxycodone HCl 5 mg 06/06/24 18:31 Oxycodone Hcl (*Crx) 5 Mg Tab Ir PO Q6H PRN Breakthrough Pain Pantoprazole Sodium 40 mg 05/29/24 21:00 06/07/24 09:44 Pantoprazole 40 Mg Tablet PO 40 mg Q12HR JESSICA Administration Pregabalin 225 mg 05/29/24 17:00 06/07/24 09:44 Pregabalin (*Crx) 75 Mg Capsule PO 225 mg BID JESSICA Administration Rivaroxaban 20 mg 05/28/24 17:00 06/06/24 18:00 Rivaroxaban 20 Mg Tablet PO 20 mg DAILY@1700 JESSICA Administration Fluticasone/Salmeterol 2 puff 06/07/24 09:00 06/07/24 09:02 Fluticasone/Salmeterol 230-21 Mcg Inhaler 1 Puff INHALATION 2 puff Q12HRT JESSICA Administration Senna/Docusate Sodium 1 tab 05/30/24 12:23 06/04/24 16:06 Senna/Docusate Sodium Tablet PO 1 tab DAILY PRN Administration constipation Sodium Chloride 10 ml 05/28/24 14:00 06/07/24 12:36 Central Line Flush IV PUSH Not Given Q8HR JESSICA Sodium Chloride 1 spray 05/28/24 10:14 06/06/24 10:24 Saline 0.65% Demetris Soln 44 Ml Btl NASAL 1 spray Q2H PRN Administration Congestion Sodium Chloride 1 applic 06/02/24 14:47 Sodium Chloride Nasal Gel 14.1 Gm NASAL QID PRN Dry Nasal Passages Tamsulosin HCl 0.4 mg 05/30/24 09:00 06/07/24 09:44 Tamsulosin Hcl 0.4 Mg Capsule PO 0.4 mg DAILY JESSICA Administration Radiology Results: ITS Impressions Chest CT 06/04/24 14:52 IMPRESSION: 1. Worsened left lung disease, consistent with pneumonia. 2. 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 3. Small pleural effusions. 4. Mild emphysema. 5. Sclerotic lesions of bone, consistent with metastatic disease. Chest X-Ray 06/07/24 06:13 IMPRESSION: 1. Stable airspace opacities in left mid and lower lung zones, consistent with pneumonia. 2. 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 3. Stable small right pleural effusion. 4. Sclerotic lesions of bone, consistent with metastatic disease. Labs Labs: Laboratory Results - last 24 hr 06/06/24 06:25 WBC 4.4 L RBC 3.23 L Hgb 8.5 L Hct 28.6 L MCV 88.5 MCH 26.3 MCHC 29.7 L RDW 21.3 H Plt Count 146 L MPV 11.4 H Immature Gran % (Auto) 1.4 H Neut % (Auto) 62.1 Lymph % (Auto) 24.3 Lander % (Auto) 10.1 H Eos % (Auto) 1.6 Baso % (Auto) 0.5 Lymph # (Auto) 1.08 [place] # (Auto) 0.5 Eos # (Auto) 0.1 Baso # (Auto) 0.0 Abs Immat Gran (auto) 0.06 H Absolute Neuts (auto) 2.8 Absolute Nucleated RBC 0.000 Nucleated RBC % 0.0 Platelet Estimate Slightly decreased Hypochromasia 1+ Anisocytosis 1+ Microcytosis 1+ Schistocytes None seen Sodium 136 L Potassium 4.6 Chloride 102 Carbon Dioxide 34 H Anion Gap 0 L BUN 15 Creatinine 1.00 Estim Creat Clear Calc 74 Estimated GFR > 60 Glucose 108 Calcium 8.7 C-Reactive Protein 5.7 H
[2024-06-07 17:29] LABS: Pneumococcal Antigen Urine NOT DETECTED
[2024-06-07] MEDS: RIVAROXABAN 20 MG TABLET PO (18:29)
[2024-06-08 03:49] LABS: Adenovirus DNA Not Detected (Not Detected); Chlamydophila pneumoniae Not Detected (Not Detected); Coronavirus 229E Not Detected (Not Detected); Coronavirus HKU1 Not Detected (Not Detected); Coronavirus NL63 Not Detected (Not Detected); Coronavirus OC43 Not Detected (Not Detected); Human Metapneumovirus Not Detected (Not Detected); Human Parainfluenza Virus 1 Not Detected (Not Detected); Human Parainfluenza Virus 2 Not Detected (Not Detected); Human Parainfluenza Virus 3 Not Detected (Not Detected); Human Parainfluenza Virus 4 Not Detected (Not Detected); Human RSV B Not Detected (Not Detected); Influenza A Not Detected (Not Detected); Influenza B Not Detected (Not Detected); Mycoplasma pneumoniae Not Detected (Not Detected); Rhinovirus/Enterovirus Not Detected (Not Detected)
[2024-06-08 06:00] VITALS: BP 110/54; PULSE 91; RESP 18; TEMP 36.4; O2SAT 100
[2024-06-08 06:39] LABS: Basophils Percent Auto 0.4 % (0.2-1.2); Eosinophils Percent Auto 0.7 % (0-4.4); Hematocrit 26.1 % (42.0-52.0); Hemoglobin 7.7 g/dL (14.0-18.0); Immature Granulocyte Absolute 0.03 K/mm3 (0.00-0.031); Immature Granulocyte Percent A 0.7 % (0-0.5); Lymphocytes Absolute Auto 1.31 K/mm3 (0.9-3.2); Mean Corpuscular HGB Conc 29.5 g/dl (32-36); Mean Corpuscular Volume 88.2 fl (80-100); Mean Platelet Volume 10.7 fl (7.4-10.4); Monocytes Absolute Auto 0.4 K/mm3 (0.1-0.6); Neutrophils Absolute Auto 2.8 K/mm3 (1.3-6.7); Neutrophils Percent Auto 61.2 % (45.5-73.1); Platelet Count Result 130 k/mm3 (150-375); Red Blood Count 2.96 M/mm3 (4.6-6.20); Red Cell Distribution Width 21.4 % (11.5-14.5); White Blood Count 4.5 K/mm3 (4.5-10.0)
[2024-06-08 06:58] LABS: Alanine Aminotransferase 10 U/L (6-50); Albumin Level 2.8 g/dL (3.5-5.1); Alkaline Phosphatase 73 U/L (38-126); Anion Gap 0 mmol/L (4-12); Aspartate Amino Transferase 14 U/L (17-59); Bilirubin,Total 0.3 mg/dL (0.2-1.3); Blood Urea Nitrogen 14 mg/dL (9-20); Calcium 7.5 mg/dL (8.4-10.2); Carbon Dioxide 30 mmol/L (22-30); Chloride 104 mmol/L (98-107); Estimated CRCL calculation 82 ml/min; Estimated Glomerular Filt Rate > 60; Glucose 128 mg/dL (65-110); Sodium 134 mmol/L (137-145)
[2024-06-08] MEDS: LIDOCAINE 2% VISC SOLN 30 ML, ALUMINUM/MAGNESIUM/SIMETH SUSP 30 ML, diphenhydrAMINE HCl... PO ×3 (07:10→13:00)
[2024-06-08] MEDS: CENTRAL LINE FLUSH 10 ML IV PUSH (07:11)
[2024-06-08 07:13] LABS: Anisocytosis 1+; Platelet Estimate Slightly Decreased (Adequate); Schistocytes None Seen
[2024-06-08] MEDS: CEFEPIME 2 GM/NS 50 ML 2 GM/50 ML BAG IVPB (07:35)
[2024-06-08 08:00] VITALS: RESP 18; O2SAT 100
[2024-06-08 08:48] VITALS: PULSE 90
[2024-06-08] MEDS: METOPROLOL TARTRATE 50 MG TAB PO (08:48)
[2024-06-08] MEDS: FUROSEMIDE 40 MG TABLET PO (08:48)
[2024-06-08] MEDS: guaiFENesin 12 HR 600 MG TABCR 1200 MG PO (08:49)
[2024-06-08] MEDS: FLUCONAZOLE 100 MG TABLET 200 MG PO (08:49)
[2024-06-08] MEDS: PREGABALIN (*CRX) 75 MG CAPSULE 225 MG PO (08:49)
[2024-06-08] MEDS: CYANOCOBALAMIN 1,000 MCG TABLET 2000 MCG PO (08:49)
[2024-06-08] MEDS: oxyCODONE HCL (*CRX) 40 MG TAB SR 12HR PO (08:49)
[2024-06-08] MEDS: FLUTICASONE PROPIONATE 0.05% NA SPR 16 GM BTL (*BKC) 1 SPRAY NASAL (08:50)
[2024-06-08] MEDS: ACYCLOVIR 400 MG TABLET PO ×2 (08:50→11:47)
[2024-06-08] MEDS: PANTOPRAZOLE 40 MG TABLET PO (08:50)
[2024-06-08] MEDS: LORATADINE 10 MG TABLET PO (08:50)
[2024-06-08] MEDS: CYANOCOBALAMIN 500 MCG TABLET PO (08:50)
[2024-06-08] MEDS: FOLIC ACID 1 MG TABLET PO (08:50)
[2024-06-08] MEDS: TAMSULOSIN HCL 0.4 MG CAPSULE PO (08:51)
[2024-06-08] MEDS: FLUTICASONE/SALMETEROL 230-21 MCG INHALER 1 PUFF 2 PUFF INHALATION (08:58)
[2024-06-08 08:59] VITALS: PULSE 116; RESP 24; O2SAT 96
--- NOTE | 2024-06-08 10:23 | PM.PNPUL ---
Progress Note: A&P Assessment and Plan (1) Pneumonia: Qualifiers: Pneumonia type: due to unspecified organism Laterality: right Lung location: lower lobe of lung Qualified Code(s): J18.9 - Pneumonia, unspecified organism Code(s): J18.9 - Pneumonia, unspecified organism Status: Acute Assessment and Plan: Patient has been admitted multiple times to the hospital over the last 6 months and treated with various antibiotics. He is immunosuppressed receiving chemotherapy. he was admitted with 1 blood cultures showing oxacillin resistant Staph epidermidis and another blood should culture showing oxacillin resistant Staph hominis. Initial COVID, influenza RSV swab negative. he presents with chills, sweats, worsening shortness of breath, wheezing and change in his phlegm. He was neutropenic on arrival. patient has been treated with Neupogen and is no longer neutropenic with a white blood cell count of 7.1. He is afebrile. Clinically he has improved from 10% at his baseline to currently 50% today. He continues to have unchanged chills and sweats his phlegm is improved to dark yellow with a normal volume today. chest x-ray today with worsening left mid lung infiltrate and CT scan today with unchanged right upper lobe consolidation and new left upper lobe and lower lobe infiltrates consistent with pneumonia. These are new since 05/09/2024. Patient has received multiple antibiotics including ceftriaxone and azithromycin on 05/28, vancomycin 05/29 through 06/02, levofloxacin 05/29 to current, and linezolid started 06/02 to current. Etiology includes infection ( bacterial, viral, doubt fungal or mycobacterial), cancer, doubt fluid overload. Plan: I will repeat blood cultures. I will continue vanco and linezolid for total 10 days (day 7) and levofloxacin for total 10 days (day 7). I will add cefepime. I will repeat COVID, influenza RSV. I will send a respiratory pathogen panel to [facility]. I will check urine Legionella and urine pneumococcal. I will send a serum mycoplasma IgM. I will send a QuantiFERON gold. Patient with Beatriz in his phlegm, I do not believe this is candidal pneumonia at this time. I will check a chest x-ray, and procalcitonin on 06/05/2024. 06/05/2024. Overall patient feels clinically the same. States he has 50% back to his baseline with some dyspnea on exertion. Currently the patient is on 4 L nasal cannula saturations 99%. White blood cell count 4.7, creatinine 1.0, procalcitonin 0.5. CRP 7.6. Chest x-ray with right upper lobe infiltrate and left mid lung and lower lung infiltrate stable compared with 06/02/2024. Repeat COVID, influenza and RSV RT PCR negative. Plan: clinically stable. Continue vanco and now linezolid, day 8. Continue levofloxacin day 8. Continue cefepime day 2. Respiratory pathogen panel, urine Legionella, urine pneumococcal, QuantiFERON gold and serum IgM mycoplasma pending. 06/06/24: overall the patient is slowly improving. States he is 60% back to his baseline. His chills are gone. He still has a cough and some phlegm production. currently is on 3 L nasal cannula saturations 95%. He has a worsening nasal congestion today. He is afebrile. White blood cell count 4.4, CRP decreased from 7.6 yesterday to 5.7 today. Chest x-ray shows continued left mid and lower lung infiltrate with possible progression from yesterday and slight improvement since the . Plan: Slow improvement. Continue vanc and now linezolid for day 9, levofloxacin day 9, cefepime day 3. Respiratory pathogen panel, urine Legionella, urine pneumococcal, QuantiFERON gold and serum IgM mycoplasma pending. I will increase his Flonase to 1 spray each nostril twice a day. I will add loratadine 10 mg a day for his nasal congestion. I will repeat a chest x-ray in the morning and if this is stable and he continues to improve will consider discharge home. 06/07/24: Patient says he feels the same as he did yesterday. 60% back to his baseline. Cough and phlegm production are unchanged. Nasal congestion is slightly improved. He is afebrile. Current saturations on 3 L nasal cannula 99%. Chest x-ray with stable left mid and lower lung infiltrate. Plan: Continue vanc and now linezolid, day 10 (stop after today dose), s/p levofloxacin day 10, cefepime day 4. Respiratory pathogen panel, urine Legionella, urine pneumococcal, QuantiFERON gold and serum IgM mycoplasma pending. 06/08/24: Overall the patient states he is improved feeling 75-80% back to his baseline. His phlegm production is better. His sinus congestion is better but still present. Currently is on 3 L nasal cannula saturations 100%. he is afebrile. creatinine 0.9, white blood cell count 4.5. respiratory pathogen panel negative, urine pneumococcal antigen negative. Urine Legionella QuantiFERON gold pending. he has finished 10 days of combination vanco than the linezolid, 10 days of levofloxacin and today is day 5 of cefepime. he declines home oxygen assessment. From a pulmonary perspective the patient is ready to be discharged on these pulmonary medications: Cefdinir 300 mg p.o. b.i.d. x5 days Advair 230-21 at 2 puffs b.i.d. Rescue albuterol inhaler 2 puffs q.4 hours p.r.n. shortness of breath or wheezing. Rescue albuterol nebulizer to 0.5 mg q.4 hours p.r.n. shortness of breath or wheezing Guaifenesin 1200 mg p.o. b.i.d. p.r.n. Flonase 1 spray each nostril twice a day. Loratadine 10 mg p.o. q.day Oxygen at rest and activity with goal saturation 90-94%. He tells me his customer development manager has him on 3 and half to 4 L 24-7. Patient has follow-up with his customer development manager on 06/24/2023. Patient has a follow-up CT scan on 06/25/2023. Discussed with Dr. Chase, will sign off, call with questions. (2) COPD (chronic obstructive pulmonary disease): Code(s): J44.9 - Chronic obstructive pulmonary disease, unspecified Status: Chronic Assessment and Plan: GOLD grade 2 group E COPD Patient with 80 pack year tobacco use, quit in 2019. 08/05/2018 PFTs with FEV1 is 2.33 L, 66% predicted, no bronchodilator response, air trapping, hyperinflation, normal DLCO. CT scan 06/04/2024 with mild apical predominant paraseptal emphysema. chronic hypoxemic respiratory failure on 3.5 L at rest and with sleep and 4 with activity. patient is followed at [facility] and maintained on Advair, budesonide nebulizer and albuterol nebulizer.. 06/04/2024: Patient is being treated for pneumonia. He has no evidence of a COPD exacerbation. Patient has exertional tachycardia with his AFib at a rate of 130 when he returned from the bathroom today. His saturations were 98 on 4 L. Plan: Given his exertional tachycardia I will place him on nebulized ipratropium 0.5 mg q.6 hours, nebulized budesonide 500 mcg twice a day and discontinue his albuterol. If the patient has any worsening bronchospasm will restart levalbuterol. I do not feel he needs systemic steroids at this time. 06/05/24: Patient says he is breathing the same off of the beta agonists. He has no wheezing. Plan: Continue nebulized budesonide 500 twice a day and nebulized ipratropium q.6 hours. 06/06/24: States his breathing is about the same. No wheezing. His heart rate when I walked him in the room when from 96 to 110 with stable saturation at 95-96 on 3 L nasal cannula. plan: Continue nebulized budesonide and ipratropium q.6 hours. 06/07/24: No wheezing on exam. He monitors his heart rate when he walks and he says this is improved. Mouth pain has improved with Magic mouthwash, acyclovir and Diflucan. Plan: I have changed his budesonide and ipratropium nebulizers to his home Advair 230-21 at 2 puffs b.i.d.. Continue Flonase to 1 spray each nostril twice and loratadine 10 mg a day for his nasal congestion. Continue guaifenesin 1200 mg p.o. b.i.d.. Patient declines home O2 assessment are overnight oximetry to determine his oxygen needs as he states he is fine with his current oxygen and he measures his pulse oximetry at home frequently. 06/07/24: No wheezing on exam. His mouth pain continues to improve. Plan: Continue Advair 230-21 at 2 puffs b.i.d., Flonase 1 spray each nostril twice a day and loratadine 10 mg a day for his nasal congestion. Can changes guaifenesin to 1200 mg p.o. b.i.d. p.r.n.. (3) Adenocarcinoma, lung: Qualifiers: Laterality: right Qualified Code(s): C34.91 - Malignant neoplasm of unspecified part of right bronchus or lung Code(s): C34.90 - Malignant neoplasm of unspecified part of unspecified bronchus or lung Status: Chronic Assessment and Plan: regarding his lung cancer this was diagnosed in June of 2018 with a right upper lobe biopsy. Status post radiation therapy 12/18/2018. Status post XRT 03/10/2022. Patient currently on his 3rd line of chemotherapy and has received 3 cycles of Taxotere and cyramza per Dr. Baez, the last of which was on 05/21/2024. Plan was to repeat a CT scan in June 2024 after his 4th cycle. Plan: Per oncology note on 05/30/2024 the plan was to hold off on a CT scan until June of 2024. Repeat CT scan now without change of right upper lobe consolidation. 06/08/2024: I recommend he have a repeat CT scan of the chest on 06/25/2023 to document clearance of his left lung infiltrates prior to initiating any additional chemotherapy. (4) Atrial fibrillation: Code(s): I48.91 - Unspecified atrial fibrillation Status: Acute Assessment and Plan: Patient tells me at home when he walks his heart rate goes to 130. Patient walked from the bathroom to his bed on 4 L nasal cannula on 06/04/2024 and a returning to the bed his heart rate was 130. Plan: I will discontinue beta agonist at this time. Patient is receiving Lasix per hospitalist. Patient is on metoprolol 50 mg p.o. q.day. further management per hospitalist team. 06/06: His heart rate when I walked him in the room when from 96 to 110 with stable saturation at 95-96 on 3 L nasal cannula. Plan: Management per hospitalist team. Subjective Date/time seen: 06/08/24 10:23 Interval history: 06/04/2024: This is a new pulmonary consult for COPD, lung cancer, pneumonia. 63-year-old with a history of COPD, metastatic lung cancer to the bone, anxiety, atrial fibrillation on rivaroxaban, right upper extremity DVT and PE in 12/2018. regarding his lung cancer this was diagnosed in June of 2018 with a right upper lobe biopsy. Status post radiation therapy 12/18/2018. Status post XRT 03/10/2022. Patient currently on his 3rd line of chemotherapy and has received 3 cycles of Taxotere and cyrmza per Dr. Baez, the last of which was on 05/21/2024. Plan was to repeat a CT scan in June 2024 after his 4th cycle. Regarding his COPD. The patient is on home oxygen 3.5 L at rest and with sleep and 3 and half to 4 L with activity. The patient is limited in his activity at room to room mainly because his heart rate goes to 130 and then he breathes fast. At baseline he produces yellow phlegm 1 to 2 times a day. He takes albuterol nebulizer, budesonide nebulizer twice a day, Advair as an outpatient. He follows with Marti Shaffer, Dr. Leroy and last saw him 3 months ago. Patient has been in the hospital monthly for the last 6 months. Last admitted 05/09 through 05/17/2024 with neutropenic fever, epistaxis and treated for pneumonia. He says that he did improve when he left. Patient was back to his baseline and on 05/25/2024 he developed increasing shortness of breath at rest and with exertion, wheezing, increased volume and change in color of his phlegm from yellow to dark mireles. He denied any cough. He was also having chills, sweats but no fever was documented. Symptoms progressed and patient presented to the emergency department on 05/28/2024 with a white blood cell count of 1.8, platelets 100, creatinine 0.9, COVID, influenza, RSV swab RT PC are negative, MRSA swab negative. Blood cultures were obtained and 1 grew out oxacillin resistant Staph epi and 1 grew out oxacillin resistant Staph hominis. Patient was initially treated with ceftriaxone and azithromycin on 05/28, vancomycin on 05/29 and levofloxacin was started on 05/29. Patient had a chest x-ray today that showed worsening left mid lung field infiltrates. CT scan of the chest shows right upper lobe consolidation that is unchanged and new left lower lobe infiltrates. Since patient was admitted he says that he is improved. When he presented he self he was 10% of his normal and now he says he has 50% back to his normal. The phlegm is now dark yellow. He continues to have chills and sweats but no documented fever. Beta minute patient had a sputum sample that g stain showed few white blood cells, moderate mixed bacterial gloria and yeast. I called laboratory to identify this used and it has returned Beatriz albicans. 06/04/2024: Patient was in the bathroom and when he walked from the bathroom to his bed on 4 L nasal cannula his saturations remained 98% and his heart rate was 130. He had dyspnea on exertion with this activity. His white blood cell count is 7.1, creatinine is 1.0. 06/05/2024. Overall patient feels clinically the same. States he has 50% back to his baseline with some dyspnea on exertion. Currently the patient is on 4 L nasal cannula saturations 99%. White blood cell count 4.7, creatinine 1.0, procalcitonin 0.5. CRP 7.6. Chest x-ray with right upper lobe infiltrate and left mid lung and lower lung infiltrate stable compared with 06/02/2024. Repeat COVID, influenza and RSV RT PCR negative. 06/06/24: overall the patient is slowly improving. States he is 60% back to his baseline. His chills are gone. He still has a cough and some phlegm production. He has a worsening nasal congestion today. He is afebrile. White blood cell count 4.4, CRP decreased from 7.6 yesterday to 5.7 today. Chest x-ray shows continued left mid and lower lung infiltrate with possible progression from yesterday and slight improvement since the . 06/07/24: Patient says he feels the same as he did yesterday. 60% back to his baseline. Cough and phlegm production are unchanged. Nasal congestion is slightly improved. He is afebrile. Current saturations on 3 L nasal cannula 99%. Chest x-ray with stable left mid and lower lung infiltrate. 06/08/24: Overall the patient states he is improved feeling 75-80% back to his baseline. His phlegm production is better. His sinus congestion is better but still present. Currently is on 3 L nasal cannula saturations 100%. he is afebrile. creatinine 0.9, white blood cell count 4.5. DATA: 06/04/24 EXAMINATION:CT diagnostic chest wo con INDICATION: Worsening pneumonia. TECHNIQUE: Computed tomography (CT) of the chest was performed without intravenous contrast. Automated exposure control and iterative reconstruction technique were employed. The dose-length product (DLP) was 282.17 mGy-cm. COMPARISON: Chest CT 05/09/2024 FINDINGS: There are airspace opacities with volume loss involving right upper lobe and right perihilar region, consistent with radiation fibrosis. There is mild emphysema. There are patchy groundglass opacities with small airspace opacity component and septal thickening involving the left upper lobe and left lower lobe, consistent with pneumonia. There are small pleural effusions. The heart size is normal. There are coronary artery calcifications. No pericardial effusion. There is a left internal jugular port with tip at superior cavoatrial junction. There are changes of cholecystectomy. There is mild bilateral gynecomastia. Epidural electrodes are noted. There are scattered sclerotic lesions of bone. IMPRESSION: 1. Worsened left lung disease, consistent with pneumonia. 2. 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 3. Small pleural effusions. 4. Mild emphysema. 5. Sclerotic lesions of bone, consistent with metastatic disease. * 05/09/24CXR; Persistent volume loss in the right hemithorax and unchanged consolidation in the posterior right mid to upper lung zone and at the posterior right lower lung zone, bladder likely due at least in part to a small right pleural effusion. Lung remains clear. No pneumothorax or left-sided pleural effusion. Arch size is normal. Median sternotomy wires and mediastinal surgical clips are seen, likely from prior coronary artery bypass grafting. Left internal jugular central venous port catheter with distal tip at the caudal superior vena cava. Spinal stimulator leads extend the length of the visualized lower cervical to upper lumbar central canal with lead tips terminating in the upper cervical spine on the prior radiographs. There also appears. The tip of a intrathecal catheter projects over the posterior central canal of the lower thoracic spine. IMPRESSION: 1. Persistent volume loss with chronic opacities in the posterior right mid to upper lung zone on CT. 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 2. No recent interval change in a small right pleural effusion with associated compressive atelectasis in the right lower lobe. 3. Difficult to absolutely exclude superimposed pneumonia however there are no new opacities to more specifically suggest this. * 05/09/2024; CTA No pulmonary embolism. Small bilateral pleural effusions. Increased size of a region of consolidation at the posterior right lower lobe with subtle surrounding tree-in-bud opacities suggestive of pneumonia superimposed over chronic atelectasis/scarring. Similar there are new small centrilobular groundglass opacities and tree-in-bud opacities in the right upper and middle lung at the periphery of an unchanged region of consolidation with volume loss and architectural distortion at the posterior right upper lung likely related to radiation fibrosis for reported prior lung cancer. New small patchy region of groundglass opacity and a few small centrilobular nodules at the junction of the lingula and left upper lobe also suspicious for pneumonia. There are a few unchanged larger and more solid-appearing subcentimeter pulmonary nodules most prominent in the left lower lobe suspicious for metastatic disease. No pulmonary edema or pneumothorax. Heart size is normal but shifted towards the right due to the volume loss in the right lung. No pericardial effusion. Left internal jugular central venous port catheter with distal tip at the superior cavoatrial junction. Thoracic aorta is normal in caliber with no dissection. No pathologically enlarged thoracic lymphadenopathy. Cholecystectomy clips at the gallbladder fossa. Diffuse hepatic steatosis. Median sternotomy. Scattered patchy sclerotic bone lesions most prominent in the lower thoracic spine consistent with metastatic disease. Distal tip of an intrathecal catheter likely for pain management in the posterior central canal at the level of T9. There are spinal stimulator leads entering the central canal at level of T12-L1 which extend through the thoracic and lower cervical central canal extending beyond the cephalad margin of the field of imaging. IMPRESSION: 1. No pulmonary embolism. 2. Bilateral scattered mild new lung disease, composed predominantly of tree-in-bud opacities and small groundglass opacities suspicious for pneumonia 3. Unchanged small right and new small left pleural effusions. 4. A couple regions of chronic consolidation with volume loss in the right mid to upper lung and right lower lung likely atelectasis/scarring related to reported treated lung cancer. 5. Unchanged scattered subcentimeter solid pulmonary nodules and scattered patchy sclerotic bone lesions consistent with metastatic disease. 05/15/2022 EXAMINATION: CTA chest PE protocol INDICATION: Shortness of breath and cough. Right chest pain. COMPARISON: Chest CT 04/22/2022 FINDINGS: There are airspace and groundglass opacities with volume loss and architectural distortion involving right upper lobe and perihilar right lower lobe. There are patchy groundglass opacities in basilar right lower lobe. There are patchy groundglass opacities in left upper lobe. There is a small right pleural effusion. The heart size is normal. There is a left internal jugular port with tip in right atrium. There is no pulmonary embolus. There are changes of cholecystectomy. There are scattered sclerotic lesions of bone, consistent with metastatic disease. Median sternotomy wires are noted. IMPRESSION: 1. No pulmonary embolus. 2. Airspace and groundglass opacities with volume loss and architectural distortion involving right upper lobe and perihilar right lower lobe, consistent with primary bronchogenic carcinoma and changes of radiation therapy without or with superimposed pneumonia. 3. Groundglass opacities in right lower lobe and left upper lobe with improvement from 04/22/2022, which may be radiation pneumonitis or pneumonia. 4. Stable small right pleural effusion. 5. Scattered sclerotic lesions of bone, consistent with metastatic disease. 04/22/2022 EXAMINATION: CTA chest PE protocol INDICATION: Shortness of breath. Dyspnea. History of pulmonary embolism. History of lung cancer metastatic to lymph nodes and bone COMPARISON: 04/22/2022 portable AP chest 12/29/2021 CT pulmonary scan FINDINGS: There is diminished size of the large right posterior perihilar lung mass since 12/29/2021. Residual tumor and extensive surrounding right upper lobe and superior segment right lower lobe infiltrate are noted. There is mild right pleural effusion. There are patchy groundglass infiltrates scattered in the left upper lobe and right lower lobe. Normal heart size. No pericardial effusion. No thoracic aortic aneurysm or dissection. No pulmonary embolism is detected. Status post sternotomy. There are scattered osteosclerotic lesions of the cervical and thoracic spine, suggesting metastatic disease. Consider lung and possibly prostate skeletal metastasis. IMPRESSION:? No evidence of pulmonary embolism Diminished size of right posterior perihilar lung mass since 12/29/2021. There is extensive infiltrate in the right upper lobe and superior segment right lower lobe and there are scattered patchy groundglass infiltrates in the right lower lobe and particularly left upper lobe No evidence of pulmonary embolism Osteoblastic skeletal metastases; consider prostate cancer skeletal metastases in addition to lung cancer metastases. 02/24/2022 Echo Summary ? 1. Left ventricular chamber dimension is normal. ? 2. Left ventricular systolic function is normal, estimated at 55-60%. ? 3. The left ventricular diastolic function is abnormal. ? 4. E/e' 10 is mildly elevated. ? 5. There is mild aortic valve sclerosis. ? 6. There is trace mitral valve regurgitation. ? 7. There is trace tricuspid valve regurgitation. Right Ventricle ? Right ventricular systolic function is normal and with normal TAPSE 1.8 cm. ? Right ventricular chamber dimension is normal. Right Atria ? Right atrial chamber dimension is normal. Atrial Septum ? Agitated saline injection with and without valsalva maneuver opacified right side cardiac chambers without shunt to left side cardiac chambers. ? Intact interatrial septum visualized by 2D and agitated saline imaging. Tricuspid Valve ? There is trace tricuspid valve regurgitation. ? RVSP is not calculated due to an inadequate TR jet. 08/05/2018 PFTs Findings: Spirometry: ? There is decreased maximal expiratory airflow at all lung volumes with concave expiratory flow tracing.? The contour the inspiratory flow tracing is normal.? The pre bronchodilator FVC is 4.44 L, 89% predicted.? The pre bronchodilator FEV1 is 2.33 L, 66% predicted.? The pre bronchodilator FEV1:? FVC ratio is 53%.? The post bronchodilator FVC is 4.51 L, representing a 2% increase.? The post bronchodilator FEV1 is 2.54 L, representing a 9% increase.? The post bronchodilator FEV1:? FVC ratio is 56%.? Plethysmography:? The total lung capacity is 9.12 L, 127% predicted.? The functional residual capacity is 5.35 L, 131% predicted.? The residual volume is 4.63 L, 188% predicted.? Plethysmography the diffusing capacity unadjusted for hemoglobin and carboxyhemoglobin is 19.3, 78% predicted.? The diffusing capacity adjusted for alveolar volume is 3.39, 86% predicted. My Impression: There is a moderate obstructive abnormality without significant improvement after inhaling a single dose of albuterol. The increase in residual volume is consistent with air trapping from an obstructive abnormality.? Hyperinflation is present as demonstrated by the increase in functional residual capacity and total lung capacity and is consistent with an obstructive abnormality. The diffusing capacity is normal. There are no prior studies for comparison Review of Systems Constitutional: Constitutional: Reports no additional constitutional complaints Eyes: Eyes: Reports no additional eye complaints ENT: Reports system reviewed and no additional complaints, except as documented Cardiovascular: Cardiovascular: Reports no additional cardiovascular complaints Respiratory: Respiratory: Reports no additional respiratory complaints Gastrointestinal: Gastrointestinal: Reports no additional gastrointestinal complaints Musculoskeletal: Musculoskeletal: Reports no additional musculoskeletal complaints Neurologic: Reports system reviewed and no additional complaints, except as documented Psychiatric: Psychiatric: Reports no additional psychiatric complaints Endocrine: Endocrine: Reports no additional endocrine complaints Hematologic/Lymphatic: Hematologic/Lymphatic: Reports no additional hematologic/lymphatic complaints Allergic/Immunologic: Allergic/Immunologic: Reports no additional allergic/immunologic complaints Exam Const: General: cooperative and comfortable Orientation/consciousness: oriented to person, oriented to place and oriented to time HENMT: Head: normal to inspection Ears: hearing grossly normal bilaterally Eyes: General: appearance normal, both eyes and all related structures Neck: Neck: normal visual inspection Chest: Chest palpation & inspection: normal inspection of the chest Resp: Effort & Inspection: normal respiratory effort and able to speak in complete sentences Auscultation: no crackles, no rales, no rhonchi, no wheezes and diminished lung sounds Other: Right upper lobe decreased breath sounds. Cardio: Jugular venous distension: no JVD GI: Inspection: normal to inspection Skin: General skin exam: normal color Neuro: General: oriented to person, oriented to place and oriented to time Extrem: General: normal to inspection and edema Psych: Appearance: grossly normal Objective Data Vital Signs Vital Signs: Vital Signs - 24 hr 06/07/24 12:00 06/07/24 14:00 06/07/24 20:00 Temperature 36.4 C L Pulse Rate 95 98 Respiratory Rate 16 Blood Pressure 93/52 L Pulse Oximetry 99 100 Oxygen Delivery Nasal Cannula Oxygen Flow Rate 3 Fraction of Inspired Oxygen 06/07/24 20:14 06/07/24 20:14 06/07/24 20:20 Temperature 36.7 C Pulse Rate 113 H 102 H Respiratory Rate 18 18 Blood Pressure 103/63 Pulse Oximetry 98 100 Oxygen Delivery Nasal Cannula Oxygen Flow Rate 3 Fraction of Inspired Oxygen 06/07/24 20:36 06/08/24 06:00 06/08/24 08:00 Temperature 36.4 C L Pulse Rate 86 91 Respiratory Rate 18 18 Blood Pressure 110/54 L Pulse Oximetry 100 100 Oxygen Delivery Nasal Cannula Oxygen Flow Rate 3 Fraction of Inspired Oxygen 06/08/24 08:48 06/08/24 08:59 06/08/24 08:59 Temperature Pulse Rate 90 116 H Respiratory Rate 24 H Blood Pressure Pulse Oximetry 96 Oxygen Delivery Nasal Cannula Oxygen Flow Rate 3 Fraction of Inspired Oxygen 32 Intake/Output Intake/Output: Intake & Output 06/05/24 06/06/24 06/07/24 06/08/24 23:59 23:59 23:59 23:59 Intake Total 2097 1694 2340 840 Output Total 950 1999 2000 350 Balance 1147 -306 340 490 Meds/Results Medications: Active Medications Generic Name Dose Route Start Last Admin Trade Name Freq PRN Reason Stop Dose Admin Acetaminophen 650 mg 05/28/24 07:51 06/05/24 04:10 Acetaminophen 325 Mg Tablet PO 650 mg Q4H PRN Administration Mild Pain (1-3) or Fever Acyclovir 400 mg 06/05/24 15:00 06/08/24 08:50 Acyclovir 400 Mg Tablet PO 400 mg 5 TIMES DAILY JESSICA Administration Lidocaine HCl 30 ml/ Al Hydrox 0 ml 05/29/24 10:08 06/05/24 13:29 /Mg Hydrox/Simethicone 30 ml/ PO 5 ml Diphenhydramine HCl 75 mg Q4HWA PRN Administration mouth soreness Lidocaine HCl 30 ml/ Al Hydrox 0 ml 06/05/24 17:00 06/08/24 08:51 /Mg Hydrox/Simethicone 30 ml/ PO 30 ml Diphenhydramine HCl 75 mg Q4HWA JESSICA Administration Cyanocobalamin 2,000 mcg 05/30/24 09:00 06/08/24 08:49 Cyanocobalamin 1,000 Mcg Tablet PO 2,000 mcg QAM JESSICA Administration Cyanocobalamin 500 mcg 05/30/24 09:00 06/08/24 08:50 Cyanocobalamin 500 Mcg Tablet PO 500 mcg QAM JESSICA Administration Ergocalciferol 50,000 units 06/02/24 09:00 06/02/24 08:03 Ergocalciferol 50,000 Units Capsule PO 50,000 units WEEKLY JESSICA Administration Ferrous Sulfate 325 mg 05/31/24 12:00 06/07/24 12:36 Ferrous Sulfate [address] PO 325 mg DAILY@1200 JESSICA Administration Fluconazole 200 mg 06/06/24 09:00 06/08/24 08:49 Fluconazole 100 Mg Tablet PO 200 mg QAM JESSICA Administration Fluticasone Propionate 1 spray 05/29/24 10:30 06/08/24 08:50 Fluticasone Propionate 0.05% Na Spr 16 Gm Btl (*Bkc) NASAL 1 spray Q12HR JESSICA Administration Folic Acid 1 mg 05/30/24 09:00 06/08/24 08:50 Folic Acid 1 Mg Tablet PO 1 mg DAILY JESSICA Administration Furosemide 40 mg 06/06/24 09:00 06/08/24 08:48 Furosemide 40 Mg Tablet PO 40 mg BID JESSICA Administration Guaifenesin 1,200 mg 05/29/24 21:00 06/08/24 08:49 Guaifenesin 12 Hr 600 Mg Tabcr PO 1,200 mg Q12HR JESSICA Administration Heparin Sodium (Beef Lung) 50 units 05/28/24 09:00 06/08/24 08:50 Heparin Flush 50 Units/5 Ml Syringe IV PUSH 50 units QAM JESSICA Administration Heparin Sodium (Beef Lung) 50 units 05/28/24 07:25 Heparin Flush 50 Units/5 Ml Syringe IV PUSH PRN PRN after intermittent infusion Heparin Sodium (Beef Lung) 50 units 05/28/24 07:25 Heparin Flush 50 Units/5 Ml Syringe IV PUSH PRN PRN after blood draws Heparin Sodium (Porcine) 500 units 05/28/24 07:25 06/06/24 12:51 Heparin Sodium Lock Flush 500 Units/5 Ml Syringe IV PUSH 500 units PRN PRN Administration see comments below Cefepime HCl 2 gm in 50 mls @ 100 mls/hr 06/04/24 16:00 06/08/24 08:05 Maxipime 2 Gm/Ns 50 Ml IVPB Infused Q8H JESSICA Infusion Levalbuterol HCl 0.63 mg 06/04/24 16:38 Levalbuterol Neb 1.25 Mg/3 Ml INHALATION Q6HRT PRN Wheezing Loratadine 10 mg 06/06/24 09:35 06/08/24 08:50 Loratadine 10 Mg Tablet PO 10 mg QAM JESSICA Administration Lorazepam 0.5 mg 05/31/24 13:03 06/07/24 22:31 Lorazepam (*Crx) 0.5 Mg Tablet PO 0.5 mg Q6H PRN Administration Anxiety Metoprolol Tartrate 50 mg 06/04/24 21:00 06/08/24 08:48 Metoprolol Tartrate 50 Mg Tab PO 50 mg Q12HR JESSICA Administration Ondansetron HCl 4 mg 05/28/24 07:51 05/30/24 08:35 Ondansetron Inj 4 Mg/2 Ml Vial IV PUSH 4 mg Q4H PRN Administration Nausea Oxycodone HCl 40 mg 05/29/24 21:00 06/08/24 08:49 Oxycodone Hcl (*Crx) 40 Mg Tab Sr 12hr PO 40 mg Q12H JESSICA Administration Oxycodone HCl 5 mg 06/06/24 18:31 Oxycodone Hcl (*Crx) 5 Mg Tab Ir PO Q6H PRN Breakthrough Pain Pantoprazole Sodium 40 mg 05/29/24 21:00 06/08/24 08:50 Pantoprazole 40 Mg Tablet PO 40 mg Q12HR JESSICA Administration Pregabalin 225 mg 05/29/24 17:00 06/08/24 08:49 Pregabalin (*Crx) 75 Mg Capsule PO 225 mg BID JESSICA Administration Rivaroxaban 20 mg 05/28/24 17:00 06/07/24 18:29 Rivaroxaban 20 Mg Tablet PO 20 mg DAILY@1700 JESSICA Administration Fluticasone/Salmeterol 2 puff 06/07/24 09:00 06/08/24 08:58 Fluticasone/Salmeterol 230-21 Mcg Inhaler 1 Puff INHALATION 2 puff Q12HRT JESSICA Administration Senna/Docusate Sodium 1 tab 05/30/24 12:23 06/04/24 16:06 Senna/Docusate Sodium Tablet PO 1 tab DAILY PRN Administration constipation Sodium Chloride 10 ml 05/28/24 14:00 06/08/24 07:11 Central Line Flush IV PUSH 10 ml Q8HR JESSICA Administration Sodium Chloride 1 spray 05/28/24 10:14 06/06/24 10:24 Saline 0.65% Demetris Soln 44 Ml Btl NASAL 1 spray Q2H PRN Administration Congestion Sodium Chloride 1 applic 06/02/24 14:47 Sodium Chloride Nasal Gel 14.1 Gm NASAL QID PRN Dry Nasal Passages Tamsulosin HCl 0.4 mg 05/30/24 09:00 06/08/24 08:51 Tamsulosin Hcl 0.4 Mg Capsule PO 0.4 mg DAILY JESSICA Administration Radiology Results: ITS Impressions Chest CT 06/04/24 14:52 IMPRESSION: 1. Worsened left lung disease, consistent with pneumonia. 2. 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 3. Small pleural effusions. 4. Mild emphysema. 5. Sclerotic lesions of bone, consistent with metastatic disease. Chest X-Ray 06/07/24 06:13 IMPRESSION: 1. Stable airspace opacities in left mid and lower lung zones, consistent with pneumonia. 2. 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 3. Stable small right pleural effusion. 4. Sclerotic lesions of bone, consistent with metastatic disease. Labs Labs: Laboratory Results - last 24 hr 06/04/24 06/04/24 06/08/24 16:24 16:25 05:55 WBC 4.5 RBC 2.96 L Hgb 7.7 L Hct 26.1 L MCV 88.2 MCH 26.0 MCHC 29.5 L RDW 21.4 H Plt Count 130 L MPV 10.7 H Immature Gran % (Auto) 0.7 H Neut % (Auto) 61.2 Lymph % (Auto) 29.0 [place] % (Auto) 8.0 Eos % (Auto) 0.7 Baso % (Auto) 0.4 Lymph # (Auto) 1.31 [place] # (Auto) 0.4 Eos # (Auto) 0.0 Baso # (Auto) 0.0 Abs Immat Gran (auto) 0.03 Absolute Neuts (auto) 2.8 Absolute Nucleated RBC 0.000 Nucleated RBC % 0.0 Platelet Estimate Slightly decreased Anisocytosis 1+ Schistocytes None seen Sodium 134 L Potassium 4.0 Chloride 104 Carbon Dioxide 30 Anion Gap 0 L BUN 14 Creatinine 0.90 Estim Creat Clear Calc 82 Estimated GFR > 60 Glucose 128 H Calcium 7.5 L Total Bilirubin 0.3 AST 14 L ALT 10 Alkaline Phosphatase 73 Total Protein 5.0 L Albumin 2.8 L Nasal RSV Type A (PCR) Not detected Nasal RSV Type B (PCR) Not detected Chlamy pneumoniae PCR Not detected Adenovirus DNA Not detected Human Bocavirus (FELIPE) Not detected Coronavirus Type OC43 Not detected Coronavirus Type HKU1 Not detected Coronavirus Type 229E Not detected Coronavirus Type NL63 Not detected Human Metapneumovir PCR Not detected Influenza A (PCR) Not detected Influenza A (H1) RNA Not detected Influenza A (H3) PCR Not detected M. pneumoniae DNA Not detected Parainfluenza PCR Not detected Parainfluenza 2 (PCR) Not detected Parainfluenza 3 RNA (PCR) Not detected Parainfluenza 4 (PCR) Not detected Rhino/Enterovirus ([place]IPE) Not detected Urine Pneumococcal Ag Not detected Influenza Type B (PCR) Not detected Misc Test Comment see note
--- NOTE | 2024-06-08 11:36 | P.DS_ITS ---
DS: Admitting Diagnosis Discharge Date 06/08/24 Admitting Diagnosis SOB DS: Discharge Diagnosis Discharge Diagnosis (1) Pneumonia: Code(s): J18.9 - Pneumonia, unspecified organism Status: Acute (2) Bacteremia: Code(s): R78.81 - Bacteremia Status: Acute (3) CHF (congestive heart failure): Code(s): I50.9 - Heart failure, unspecified Status: Acute (4) Stomatitis: Code(s): K12.1 - Other forms of stomatitis Status: Acute (5) Pancytopenia: Code(s): D61.818 - Other pancytopenia Status: Acute (6) Chronic respiratory failure with hypoxia, on home oxygen therapy: Code(s): J96.11 - Chronic respiratory failure with hypoxia; Z99.81 - Dependence on supplemental oxygen Status: Acute (7) Atrial fibrillation with RVR: Code(s): I48.91 - Unspecified atrial fibrillation Status: Acute (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 Please see H&P for details. Hospital Course: The following issues were addressed: (1) Pneumonia: Patient here for SOB. CXR showing new LLL airspace disease. No fevers. He was neutropenic on admission with ANC at 1000. Influenza, RSV and COVID PCR were negative. IgG and IgM levels were low. MRSA nasal swab was negative. No urine studies obtained. BCx collected and he was given Rocephin and Azithro once. Changed to Vanco and Levaquin. Oncology consulted and he was started on Neupogen. WBC has normalized now. BCx 05/28 grew Staph Epi in one aerobic bottle and Staph hominis in one anaerobic bottle both sensitive to Vanco. Repeat BCx negative. Sputum Cx with light growth of Beatriz albicans but not felt to be a t ru infection. Repeat CXR showing worsening PNA with CT Chest 06/04 showing worsening left lung disease, consistent with pneumonia, chronic radiation fibrosis involving RUL and right perihilar region, small pleural effusions, mild emphysema and sclerotic lesions of bone, consistent with metastatic disease. BNP 1050 with leg edema so started on Lasix IV but BP becamesoft so this was held. We were able to resume home oral Lasix. Vanco was changed to Linezolid and he completed a 10 day course. He also completed a 10 day course of Levaquin 06/06. Cefepime was added. He was treated with vest therapy with benefit. Pulmonary consulted and appreciate their input. TB testing pending. Respiratory pathogen panel was negative. Urine pneumococcal Ag was negative. He remained stable on his home 3-4L O2. Patient had clinical improvement. (2) Bacteremia: As above (3) CHF (congestive heart failure): Patient with lower extremity pedal edema. BNP 1050. [place] he had mild acute on chronic diastolic CHF. Echo as below. He was receiving prn IV Lasix. We scheduled IV Lasix but BP became soft so this was held. We resumed his compression hose. Edema improved. We were able to resume his home oral lasix. (4) Stomatitis: Patient developed sores in his mouth and pain with swallowing. Beatriz in sputum may be from oral lesions but concern lesions were more consistent with viral etiology. Treated for stomatitis with acyclovir and Diflucan since immunosuppressed. Viral HSV PCR performed. CRP trending down. Repeat exam shows resolution so suspect this was fungal and not viral given the quick resolution. Stopped Acyclovir. There are considerable and dangerous side effects with Diflucan so adelina send home with Nystatin swish and swallow. (5) Pancytopenia: As above. WBC was low but treated. WBC normal now. Chronic anemia noted. Platelet count remained low but stable and mostly above 100K. Oncology was following. (6) Chronic respiratory failure with hypoxia, on home oxygen therapy: ABG on admission with 7.44/36/96 on 4L. He has chronic hypoxic respiratory failure requiring 3-4L chronically. His oxygen requirement remained stable and at his baseline. (7) Atrial fibrillation with RVR: Patient with hx of AFib s/p failed ablation in the past. He presented with AFib with RVR but EKG showing sinus tachycardia with considerable artifact. Metoprolol continued and dose was advanced. His heart rate was still elevated so Albuterol was stopped and heart rate improved. He converted to NSR. EKG showing NSR. Heart rate still mildly elevated at times with activity but maintaining sinus. Continue Lopressor at current dose. We also continued his Xarelto. 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 Followed by Dr. Parson at [facility]. Echo 05/29/24 showing EF 55-60%, hypokinesis inferoseptal segment and normal left atria. (9) Adenocarcinoma, lung: Patient with non-small cell carcinoma diagnosed June 2018. He follows with Dr. Baez and Dr. Cavazos. Status post XRT in 2018 and again in fall 2021 due to recurrence. Now with metastatic disease to lymph nodes and bone. He is currently receiving chemotherapy. Imaging here showing radiation fibrosis RUL and right louise-hilar region as well as scattered sclerotic bone lesions consistent with mets. (10) Bilateral pleural effusions: CT scan showing small bilateral pleural effusions. (11) Epistaxis: Noted here from time to time. 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 He was on Flonase and Claritin. He overall did well. He was able to be discharged on 06/08/24 Status at Discharge Cognitive/behavioral status at discharge: Stable Time Spent with Patient Time attestation: Total time spent providing and/or coordinating discharge services: 39 minutes Time spent: Greater than 30 minutes Exam Narrative: AF 97.5 110/54 116 24 96% 3L Gen - NARD Chest - distant clear BS. Port accessed in the left upper chest CV -tachycardiac, regular (just walked back from BR 130->108). Abd - Soft, NT/ND, Positive BS Ext - trace pedal edema Psych - Nml mood and affect Skin - Warm and dry DS: Data Data Completed and Pending Labs on day of discharge: Labs from last 24 hours 06/08/24 06/04/24 06/04/24 05:55 16:25 16:24 WBC 4.5 RBC 2.96 L Hgb 7.7 L Hct 26.1 L MCV 88.2 MCH 26.0 MCHC 29.5 L RDW 21.4 H Plt Count 130 L MPV 10.7 H Immature Gran % (Auto) 0.7 H Neut % (Auto) 61.2 Lymph % (Auto) 29.0 [place] % (Auto) 8.0 Eos % (Auto) 0.7 Baso % (Auto) 0.4 Lymph # (Auto) 1.31 [place] # (Auto) 0.4 Eos # (Auto) 0.0 Baso # (Auto) 0.0 Abs Immat Gran (auto) 0.03 Absolute Neuts (auto) 2.8 Absolute Nucleated RBC 0.000 Nucleated RBC % 0.0 Platelet Estimate Slightly decreased Anisocytosis 1+ Schistocytes None seen Sodium 134 L Potassium 4.0 Chloride 104 Carbon Dioxide 30 Anion Gap 0 L BUN 14 Creatinine 0.90 Estim Creat Clear Calc 82 Estimated GFR > 60 Glucose 128 H Calcium 7.5 L Total Bilirubin 0.3 AST 14 L ALT 10 Alkaline Phosphatase 73 Total Protein 5.0 L Albumin 2.8 L Nasal RSV Type A (PCR) Not detected Nasal RSV Type B (PCR) Not detected Chlamy pneumoniae PCR Not detected Adenovirus DNA Not detected Human Bocavirus (FELIPE) Not detected Coronavirus Type OC43 Not detected Coronavirus Type HKU1 Not detected Coronavirus Type 229E Not detected Coronavirus Type NL63 Not detected Human Metapneumovir PCR Not detected Influenza A (PCR) Not detected Influenza A (H1) RNA Not detected Influenza A (H3) PCR Not detected M. pneumoniae DNA Not detected Parainfluenza PCR Not detected Parainfluenza 2 (PCR) Not detected Parainfluenza 3 RNA (PCR) Not detected Parainfluenza 4 (PCR) Not detected Rhino/Enterovirus (FELIPE) Not detected Urine Pneumococcal Ag Not detected Influenza Type B (PCR) Not detected Misc Test Comment see note Preliminary micro results at discharge 06/04/24 15:35 Blood Culture - Preliminary Blood 06/04/24 15:45 Blood Culture - Preliminary Blood Discharge Plan Discharge Attending physician on discharge: Jose David Chase Consulting providers: Jefferson Baez; Tan Frias Discharging Clinician: Jose David Chase Anticipated Discharge Date/Time: 06/08/24 12:12 Patient Disposition: Home, Self-Care Activity: as tolerated Diet: regular Discharge Instructions: Per Care Coordination, patient to discharge with [facility] ([phone]) for PT/ OT and chcf services. Please fax discharge instructions and medication sheets to [phone]. Continue home oxygen at 3-4Liters to keep SpO2>90%. Please complete your antibiotic course even if you are starting to feel well. Take precautions to avoid falls. Rise slowly from a lying or sitting position. Pause before standing or walking. Contact your doctor or call 911 and come to the Emergency Room if you have fevers or other worrisome symptoms. Avoid NSAIDs (ibuprofen, naproxen, Aleve). Tylenol is safe to take. Follow-up with your primary care provider in 1-2 weeks. Please call for appointment. Follow-up with your Oncologist at next scheduled appointment. Please call for an appointment. Follow-up with your Seal Mixer. Please call for an appointment. Thank you for using [facility] for your health care needs. Patient Instructions: Antibiotic Form Patient Language: Yoruba Stand Alone Forms: General Discharge Information Follow-up/Referrals: Shant,JEFFREY Marcelo [Primary Care Provider] - Discharge Medications: New fluticasone propionate 50 mcg/actuation [place],Suspension 1 spray intranasal Q12HR Qty: 16 0RF nystatin 100,000 unit/mL suspension 1 ml PO QID 7 Days Qty: 28 0RF Rx Instructions: swish and swallow metoprolol tartrate 50 mg Tablet 50 mg PO Q12HR Qty: 60 0RF loratadine 10 mg Tablet 10 mg PO QAM Qty: 30 0RF albuterol sulfate 2.5 mg/0.5 mL solution for nebulization 5 mg inhalation Q6H PRN (Reason: shortness of breath or wheezing) Qty: 30 0RF cefdinir 300 mg capsule 300 mg PO Q12H 5 Days Qty: 10 0RF Continued cholecalciferol (vitamin D3) 1,250 mcg (50,000 unit) capsule 1,250 mcg PO WEEKLY Patient Comments: PT TAKES ON SUNDAY Rx Instructions: Pt take on Sunday ferrous sulfate [iron] 325 mg (65 mg iron) Tablet 325 mg PO DAILY folic acid 1 mg tablet 1 mg PO DAILY oxycodone 40 mg tablet,oral only,ext.rel.12 hr 40 mg PO Q12H triamcinolone acetonide [Triderm] 0.1 % cream 1 applic TOPICAL QID PRN (Reason: psioriasis ) Rx Instructions: to face as needed for psorasis pregabalin [Lyrica] 225 mg capsule 225 mg PO BID tamsulosin 0.4 mg capsule 0.4 mg PO DAILY albuterol sulfate 90 mcg/actuation HFA aerosol inhaler 2 inh INHALATION Q4H PRN (Reason: Shortness Of Breath Or Wheezing) Saline Mist 0.65 % Aerosol,[place] 1 spray intranasal Q2H PRN (Reason: Congestion) 30 Days Qty: 45 0RF ergocalciferol (vitamin D2) [Vitamin D2] 1,250 mcg (50,000 unit) Capsule 50,000 unit PO Mo@0900 Qty: 12 0RF lorazepam 0.5 mg Tablet 0.5 mg PO Q8H PRN (Reason: Anxiety) Qty: 10 0RF ondansetron HCl 8 mg tablet 8 mg PO QID PRN (Reason: NAUSEA) omeprazole 40 mg capsule,delayed release(DR/EC) 40 mg PO DAILY Xarelto 20 mg Tablet 20 mg PO DAILY@1700 Qty: 30 0RF acetaminophen 500 mg Tablet 500 mg PO Q6H PRN (Reason: Pain (Scale Score 1-3)) oxycodone 5 mg capsule 5 mg PO Q6H PRN (Reason: Breakthrough Pain) naloxone [Narcan] 4 mg/actuation [place],Non-Aerosol 4 mg INTRANASAL PER PKG DIR Rx Instructions: 1 spray into 1 nostril if response is not achieved after 2 or 3 minutes give a second dose intranasal cyanocobalamin (vitamin B-12) 2,500 mcg PO DAILY fluticasone propion-salmeterol 2 puff inhalation Q12H furosemide 40 mg tablet 40 mg PO BID [place] Saline Gel 1 applic intranasal Q6H PRN (Reason: nasal dryness) Changed guaifenesin [Mucus Relief ER] 600 mg Tablet Extended Release 12hr 1,200 mg PO Q12HR PRN (Reason: Cough) Qty: 10 0RF Discontinued Saline Mist 0.65 % Aerosol,[place] 1 spray intranasal BID Qty: 45 12RF prednisone 10 mg tablet 10 mg PO DIRECTED Qty: 40 0RF Patient Comments: 2 days left Rx Instructions: Taper by 10mg every 4 days. 40mg x4 days, 30mg x4 days, 20mg x4 days, 10mg x4 days, and STOP metoprolol tartrate 25 mg tablet 12.5 mg PO BID budesonide 0.5 mg/2 mL suspension for nebulization 0.5 mg inhalation BID sennosides-docusate sodium [Senokot-S] 8.6-50 mg tablet 1 tab-cap PO DAILY Date of admission: 05/30/24 12:02 Primary Care Provider: Shant,Camden Jaeger Admitting Provider: Mukund Grimes Attending physician on admission: Jose R Cassidy Condition: Stable Hospitalist MIPS Heart Failure (Exclusion) Patient has history of Heart Transplant or Left Ventricular Assistive Device?: No IF YES, STOP HERE Heart Failure (Qualifier) Patient has current or prior documentation of LVEF less than or equal to 40%, or mod/servere depressed LVSF?: No IF NO, STOP HERE
[2024-06-08] MEDS: FERROUS SULFATE 325 MG TABLET DR PO (11:47)
[2024-06-08] MEDS: LORazepam (*CRX) 0.5 MG TABLET PO (11:48)
--- NOTE | 2024-06-08 13:04 | PC.NURSE ---
Discharge papers faxed to [facility].
--- NOTE | 2024-06-08 14:10 | PC.NURSE ---
Waiting on prescription order for Guaifenesin & Ativan from Dr. Chase to be added to his discharge order. Patient requested to be discharged. Discharged per wheelchair to privately owned vehicle.
[2024-06-09 15:54] LABS: NIL 0.08 IU/mL; Quantiferon TB Plus, 1T NEGATIVE (NEGATIVE); TB1-NIL <0.00 IU/mL; TB2-NIL <0.00 IU/mL
[2024-06-09 18:28] LABS: Mycoplasma IgM Antibody Titer 46 U/mL
[2024-06-10 02:38] LABS: Legionella pneumophila Ag Ur NOT DETECTED
[2024-06-11 10:15] LABS: Source OROPHARYNX
== END 2024-06-08 14:08 | disposition home health service (06) | DRG 177 ==
LOC: ANHED 06:27 → ANH3MED 08:09
PROVIDERS: Internal Medicine; Internal Medicine Hematology & Oncology; Internal Medicine Pulmonary Disease; Admitting Provider Internal Medicine; Emergency Provider Student in an Organized Health Care Education/Training Program; PCP Physician Assistant; Visit Provider Internal Medicine
DX: J15.20 Pneumonia due to staphylococcus, unspecified (principal); I50.33 Acute on chronic diastolic (congestive) heart failure; J96.21 Acute and chronic respiratory failure with hypoxia; C34.91 Malignant neoplasm of unspecified part of right bronchus or lung; J90 Pleural effusion, not elsewhere classified; C79.51 Secondary malignant neoplasm of bone; R78.81 Bacteremia; D61.818 Other pancytopenia; C79.89 Secondary malignant neoplasm of other specified sites; J44.0 Chronic obstructive pulmonary disease with (acute) lower respiratory infection; B37.9 Candidiasis, unspecified; E78.5 Hyperlipidemia, unspecified; E11.42 Type 2 diabetes mellitus with diabetic polyneuropathy; F41.9 Anxiety disorder, unspecified; G89.29 Other chronic pain; I11.0 Hypertensive heart disease with heart failure; I48.0 Paroxysmal atrial fibrillation; J70.1 Chronic and other pulmonary manifestations due to radiation; J43.9 Emphysema, unspecified; K12.1 Other forms of stomatitis; M54.50 Low back pain, unspecified; N40.0 Benign prostatic hyperplasia without lower urinary tract symptoms; R04.0 Epistaxis; Z99.81 Dependence on supplemental oxygen; Z20.822 Contact with and (suspected) exposure to COVID-19; Z86.718 Personal history of other venous thrombosis and embolism; Z86.711 Personal history of pulmonary embolism; Z86.018 Personal history of other benign neoplasm; Z92.21 Personal history of antineoplastic chemotherapy; Z86.73 Personal history of transient ischemic attack (TIA), and cerebral infarction without residual deficits; Z87.891 Personal history of nicotine dependence; Z79.01 Long term (current) use of anticoagulants; Z79.891 Long term (current) use of opiate analgesic
CPT/HCPCS: 36415; 36600; 71045; 71046; 71250; 80048; 80053; 80202; 82607; 82728; 82746; 82784; 82805; 83540; 83550; 83605; 83735; 83880; 84100; 84145; 84484; 85018; 85025; 85055; 86140; 86480; 86738; 87040; 87070; 87140; 87181; 87205; 87255; 87449; 87633; 87637; 87641; 87899; 93005; 94640; 94669; 96361; 96365; 96366; 96367; 96368; 96375; 96376; 97161; 97165; 97535; 99285; A9270; C8929; G0378; J0456; J0692; J0696; J1160; J1642; J1940; J1956; J2405; J3370; J3475; J7030; J7512; Q5101; Q9957

== ENCOUNTER 2024-06-25 09:39 | Outpatient (CLI) | payer MEDICARE, MEDICAID, SELFPAY ==
--- NOTE | ~2024-06-25 | CT_ITS ---
EXAMINATION:CT diagnostic chest w con DATE: 06/25/2024 10:10 INDICATION: Non-small cell cancer of right lung. TECHNIQUE: Computed tomography (CT) of the chest was performed with 75 mL Omnipaque 350 intravenous c ontrast. Automated exposure control and iterative reconstruction technique were employed. The dose-le ngth product (DLP) was 226.32 mGy-cm. COMPARISON: Chest CT 06/04/2024, 03/02/23, 01/14/24 FINDINGS: There are airspace opacities with volume loss involving right upper lobe and right perihila r region, consistent with radiation fibrosis. There is mild emphysema. There are multiple scattered n odules in left lung measuring up to 6 mm, stable from 01/14/24 and new from 03/02/23. There are patchy groundglass opacities with small airspace opacity component and septal thickening involving the left upper lobe and left lower lobe, consistent with pneumonia. There are small pleural effusions with chr onic pleural thickening on the right. The heart size is normal. There are coronary artery calcificati ons. No pericardial effusion. There is a left internal jugular port with tip at superior cavoatrial j unction. There are changes of cholecystectomy. There is mild bilateral gynecomastia. Epidural electro alexey are noted. There are scattered sclerotic lesions of bone. IMPRESSION: 1. Improved left lung disease, consistent with pneumonia. 2. 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 3. Stable small pleural effusions with chronic pleural thickening on the right. 4. Mild emphysema. 5. Stable lung nodules and sclerotic lesions of bone, consistent with metastatic disease. Reviewed, dictated and finalized at location A. VAULT SUPERVISOR IMPRESSION: 1. Improved left lung disease, consistent with pneumonia. 2. 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 3. Stable small pleural effusions with chronic pleural thickening on the right. 4. Mild emphysema. 5. Stable lung nodules and sclerotic lesions of bone, consistent with metastati c disease.
== END 2024-06-25 09:40 | disposition home or self-care (01) ==
PROVIDERS: PCP Physician Assistant; Visit Provider Internal Medicine Hematology & Oncology
DX: C34.91 Malignant neoplasm of unspecified part of right bronchus or lung (principal)
CPT/HCPCS: 71260; 99212; G0463; Q9967

== ENCOUNTER 2024-07-11 13:44 | Outpatient (CLI) | payer MEDICARE, MEDICAID, SELFPAY ==
--- NOTE | ~2024-07-11 | XR_ITS ---
EXAMINATION: XR fl port a cath w contrast DATE: 07/11/2024 14:17 INDICATION: Central venous port catheter dysfunction TECHNIQUE: 221 fluoroscopic images of the chest were obtained during injection of 6 mm of Omnipaque 2 40 water-soluble contrast the patient's port catheter. Radiologist was not present for the imaging or procedure. The amount of fluoroscopy time used during this procedure was 0.2 minutes. Total DAP was 0.75 Gycm^2 COMPARISON: None. FINDINGS: Distal tip of a left internal jugular central venous port catheter at the caudal superior vena cava. There is a jet of the injected contrast freely flowing from the distal tip of the catheter. No contra st extravasation along the course of the catheter to suggest leak. Nasogastric tube projects over the esophagus and extends beyond the inferior margin of the field of imaging. Median sternotomy wires ar e present. IMPRESSION: 1. Normal-appearing left internal jugular central venous port catheter with free flow of injected con trast from the distal tip which is located at the caudal superior vena cava. Reviewed, dictated and finalized at location A. UTER VIDEO GAME DESIGNER IMPRESSION: 1. Normal-appearing left internal jugular central venous port catheter with glenny e flow of injected contrast from the distal tip which is located at the caudal superior vena cava.
== END 2024-07-11 13:45 | disposition home or self-care (01) ==
PROVIDERS: PCP Physician Assistant; Visit Provider Internal Medicine Hematology & Oncology
DX: C34.91 Malignant neoplasm of unspecified part of right bronchus or lung (principal)
CPT/HCPCS: 36598; 99212; G0463; Q9966

== ENCOUNTER 2024-07-15 12:46 | Emergency (ER) | payer MEDICARE, MEDICAID, SELFPAY ==
--- NOTE | ~2024-07-15 | US_ITS ---
EXAMINATION: US venous doppler [facility] DATE: 07/15/2024 14:01 INDICATION: Left lower limb swelling TECHNIQUE: Grayscale ultrasound images without and with compression and Doppler ultrasound images of the left lower extremity veins were obtained. COMPARISON: None. FINDINGS: The visualized portions of left common femoral vein, profunda (deep) femoral vein, femoral vein, popl iteal vein, peroneal veins, posterior tibial veins, gastrocnemius vein and greater saphenous vein out flow are patent. IMPRESSION: 1. No deep venous thrombosis in the left lower limb. Reviewed, dictated and finalized at location A. 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
[2024-07-15 13:16] VITALS: BP 115/66; PULSE 97; RESP 20; TEMP 36.6; O2SAT 100
--- OUTSIDE RECORDS SUMMARY | 2024-07-15 13:20 | XMS_ITS | Clinical Summary ---
Author Organization [facility] Address [address] [place] [address] Care Team Providers Care Helicopter Crew Chief Name Role Phone Camden Bran Primary Care Provider + Edilma Lubin SET UP AND CHARGER Unavailable [phone] Allergies Active Allergy Reactions Criticality Noted Date Comments Venom-Honey Bee Anaphylaxis High 08/29/2018 Wasp Venom Anaphylaxis High 08/29/2018 Wasp Venom Protein Starter Kit Anaphylaxis High 08/16 Medications triamcinolone (KENALOG) 0.1 % cream as needed Active pregabalin (LYRICA) 225 mg capsule Take 1 capsule (225 mg total) by mouth 2 (two) times a day 4 Active cholecalciferol (VITAMIN D-3) 00139 unit tablet Take 1 tablet (50,000 Units total) by mouth once a week Mondays 0 Active tamsulosin (FLOMAX) 0.4 mg extended release capsule Take 1 capsule (0.4 mg total) by mouth daily 8 Active metoprolol tartrate (LOPRESSOR) 25 mg immediate release tablet Take 0.5 tablets (12.5 mg total) by mouth 2 (two) times a day 8 Active albuterol HFA (PROVENTIL HFA,VENTOLIN HFA,PROAIR HFA) 90 mcg/actuation inhaler TAKE 2 PUFFS BY MOUTH EVERY 4 HOURS NEEDED Active cyanocobalamin (Vitamin B-12) 250 mcg tablet Take 1 tablet (250 mcg total) by mouth daily Active ferrous sulfate 325 mg (65 mg of elemental iron) tablet Take 1 tablet (325 mg total) by mouth daily Active folic acid (FOLVITE) 1 mg tablet Take 1 tablet (1 mg total) by mouth daily 4 Active omeprazole (PriLOSEC) 40 mg capsule Take 1 capsule (40 mg total) by mouth daily as needed 4 Active ondansetron (ZOFRAN) 8 mg tablet Take 1 tablet (8 mg total) by mouth every 8 (eight) hours as needed 3 Active tiZANidine (ZANAFLEX) 4 mg tablet Take 1 tablet (4 mg total) by mouth 3 (three) times a day as needed Active Xarelto 20 mg tablet Take 1 tablet (20 mg total) by mouth daily 9 Active acetaminophen (TYLENOL) 500 mg tablet Take 1 tablet (500 mg total) by mouth every 6 (six) hours as needed 9 Active furosemide (LASIX) 40 mg tablet Take 1 tablet (40 mg total) by mouth daily as needed 2 Active lidocaine-prilo ariana cream APPLY TO AFFECTED AREA DAILY DIRECTED 4 Active LORazepam (ATIVAN) 0.5 mg tablet Take 1 tablet (0.5 mg total) by mouth 3 (three) times a day as needed 4 Active naloxone (NARCAN) 4 mg/actuation spray,non-aeros ol Administer 1 spray into affected nostril(s) as needed Active fentaNYL (DURAGESIC) 12 mcg/hrIndicatio ns:severe chronic pain with opioid tolerance Place 1 patch on the skin every third day 10 patch 4 Active Advair HFA 230-21 mcg/actuation inhaler Inhale 2 puffs 2 (two) times a day Active oxygen Administer 2 L/min into each nostril as needed Active HYDROcodone-tarik taminophen (NORCO) 5-325 mg per tabletIndicatio ns:Pain Take 1 tablet by mouth every 6 (six) hours as needed for pain 10 tablet Active ramucirumab (Cyramza) 10 mg/mL solution Infuse 8 mg/kg into a venous catheter every 14 (fourteen) days Active DOCEtaxeL (DOCEFREZ) 80 mg injection Active Active Problems Problem Noted Date Diagnosed Date Presence of implanted infusion pump 04/16/2024 Therapeutic opioid-induced constipation (OIC) Lung mass 09/24/2023 Lesion of lung 09/24/2023 Pain, cancer 09/24/2023 Postlaminectomy syndrome, lumbar 09/24/2023 Rib pain 09/21/2023 Chest pain 09/21/2023 Multiple joint pain 09/21/2023 Essential hypertension 09/21/2023 Costal chondritis 09/21/2023 Attention deficit hyperactiv ity disorder, 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 but bone cancer metastatic non-small cell cancer. but bone cancer Paget's disease of bone 07/13/2021 Paroxysmal A-fib (CMS/HCC) 05/25/2021 Wheezing 04/17/2021 Pulmonary air trapping 04/17/2021 Shortness of breath on exertion 04/17/2021 Chronic pain syndrome 04/17/2021 Benign prostatic hyperplasia with lower urinary tract symptoms 04/09/2019 Acute saddle pulmonary embolism without acute co r pulmonale 02/11/2019 Typical atrial flutter (CMS/HCC) 01/02/2019 Paroxysmal atrial flutter (CMS/HCC) 01/02/2019 Wide-complex tachycardia 09/19/2018 Left atrial mass 09/19/2018 Non-small cell lung cancer m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 Non-small cell cancer of right lung 07/16/2018 Vitamin D deficiency 06/25/2018 Stage 2 moderate chronic obs tructive pulmonary disease by Global Initiative for Chronic Obstructive Lung Disease classification 06/24/2018 Ventricular tachycardia 06/24/2018 Sleep apnea, unspecified 06/24/2018 Pulmonary nodule 06/24/2018 Neuropathy 06/24/2018 Overview (09/24/2023): neg rpr neg rpr Benign prostatic hyperplasia 06/24/2018 Atrial myxoma 06/24/2018 Overview (09/24/2023): S/p resection S/p resection Dyspnea on exertion 06/09/2016 Abnormal chest xray 06/09/2016 Encounters Date Type Department Care Team Description 04/16/2024 8:14 AM CDT - 04/16/2024 11:59 PM CDT Hospital Encounter [facility] [address] [place] [address] Edilma Lubin NP Pain, cancer (Primary Dx); Other back pain, unspecified chronicity; Postlaminectomy syndrome, lumbar; Multiple joint pain; Essential hypertension; Chronic pain syndrome; Presence of implanted infusion pump Discharge Disposition: Discharge to home or self care from Last 3 Months Surgical History Surgery Date Site/Laterality Comments SPINAL FUSION Spinal Fusion ATRIAL MYXOMA EXCISION ULNAR NERVE TRANSPOSITION Left APPENDECTOMY GALLBLADDER SURGERY FLUORO GUIDED ASPIRATION OR INJECTION INTERMEDIATE JOINT RIGHT 12/31/2023 Right Medical History Medical History Date Comments Hypertension Hypertension Hx Other Medical dyslipidemia Arrhythmia ablation Myxoma COPD (chronic obstructive pulmonary disease) (HC C) GERD (gastroesophageal reflux disease) Constipation BPH (benign prostatic hyperplasia) Cancer (CMS/HCC) (HCC) COPD (chronic obstructive pulmonary disease) (HC C) Lung cancer (HCC) Anemia Cancer, m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 (CMS/HCC) (HCC) Family History Medical History Relation Name Comments Heart attack Father 2 Myocardial Infa rction; Hypertension Sister 2 Hypertension; Relation Name Status Comments Father 1 Alive Father 2 Sister 1 Alive Sister 2 Social History Tobacco Use Types Packs/Day Years Used Date Smoking Tobacco: Former Cigarettes Smokeless Tobacco: Never Tobacco Cessation:Counseling Given: Not Answered Alcohol Use Standard Drinks/Week Comments No 0 (1 standard drink = 0.6 oz pur e alcohol) AUDIT-C Answer Date Recorded Q1: How often do you have a drink containing alcohol? Never 02/28/2024 Q2: How many drinks containi ng alcohol do you have on a typical day when you are drinking? Patient does not drink Q3: How often do you have si x or more drinks on one occasion? Never 02/28/2024 Personal Safety Answer Date Recorded Have you ever been in or are you currently in a harmful physical or emotional relationship or is someone making you feel afraid or unsafe? Denies 02/28/2024 Sex and Gender Information Value Date Recorded Sex Assigned at Not on file Legal Sex Male 8:58 PM [employer] Gender Identity Male 03/18/2024 2:40 PM CDT Sexual Orientation Straight 03/18/2024 2: 40 PM CDT Obstetrics History Last Filed Vital Signs Vital Sign Reading Time Taken Comments Blood Pressure 98/57 04/16/2024 8:27 AM CDT Pulse 96 04/16/2024 8:27 AM CDT Temperature 36.4 ??C (97.5 ??F) 02/28/2024 12:06 PM C DT Respiratory Rate 20 04/16/2024 8:27 AM CDT Oxygen Saturation 99% 04/16/2024 8:27 AM CDT Inhaled Oxygen Concentration - - Weight 92.1 kg (203 lb) 02/28/2024 7:32 AM CDT Height 182.9 cm (6') 02/28/2024 7:32 AM CDT Body Mass Index 27.53 02/28/2024 7:32 AM CDT Plan of Treatment Health Maintenance Due Date Last Done Comments Depression Screening 1961 Hepatitis C Screening 1961 Prostate Cancer Screening-PSA 1961 Pneumococcal vaccine <65 (1 of 2 - PCV) 1967 DTaP/Tdap/Td Vaccine (1 - Tdap) 1972 Hepatitis B Screening 1979 Regular Well Visit/Exam 18-64 1979 Zoster Vaccine (1 of 2) 1980 Covid-19 Vaccine (2023-2 5 season) 2024 02/05/2023, 06/10/2022, 09/17/2021, Additional history exists Influenza Vaccine (#1) 2024 , 06/09/2022, 03/26/2021, Additional history exists Colon Cancer Screening-Colonoscopy 10/23/20262016 Medical Devices Implanted Type Area Manufacturing Lead Device Identifier Shelf Expiration Date Model / Serial / Lot Medtronic Inc Ascenda 4fr .5mm 114cm 86cm 2 Piece Connector Pin Flexible Closed [id number] - [id number] Implanted:Qty: 1 on 10/11/2023 by Gerry Trivedi MD at [facility] Left: Abdomen Medtronic Inc 09/19/2025 [id number] / / [id number] [employer] X Pump Infusion Programmable Ulp Ami 40ml Volume Synchromed Iii 8667-40 - [id number] - [id number] Implanted:Qty: 1 on 10/11/2023 by Gerry Trivedi MD at [facility] Left: Abdomen [employer] X 03/01/2025 8667-40 / [id number] / Med[employer]onic Inc Tyrx 3.35x3in Large Envelope Absorbable Polyarylate Minocycline [id number] - [id number] Implanted:Qty: 1 on 10/11/2023 by Gerry Trivedi MD at [facility] Left: Abdomen Med[employer]onic Inc 05/22/2024 [id number] / / [id number] Med[employer]onic Inc Vectris 5mm 75cm 1x8 Electrode Compact Mri Lead Neurostimulator [id number] - [id number] Implanted:Qty: 1 on 02/28/2024 by Gerry Trivedi MD at [facility] N/A: Back Med[employer]onic Inc 11/19/2027 [id number] / / [id number] Med[employer]onic Inc Generator Pulse Inceptiv Sys Stm Electrcl Analges Implant [id number] - [id number] - [id number] Implanted:Qty: 1 on 02/28/2024 by Gerry Trivedi MD at [facility] N/A: Back Med[employer]onic Inc [id number] / [id number] / Med[employer]onic Inc Vectris 5mm 75cm 1x8 Electrode Compact Mri Lead Neurostimulator [id number] - [id number] Implanted:Qty: 1 on 02/28/2024 by Gerry Trivedi MD at [facility] N/A: Back Med[employer]onic Inc 05/28/2027 [id number] / / [id number] Med[employer]onic Inc Envelope Absrb 2.7x2.5in Antibacterial Tyrx Medium Strl [id number] - [id number] Implanted:Qty: 1 on 02/28/2024 by Gerry Trivedi MD at [facility] N/A: Back Med[employer]onic Inc 10/06/2024 NMR [id number] / / [id number] Procedures Procedure Name Priority Date/Time Associated Diagnosis Comments CT VIRTUAL COLONOSCOPY DIAGNOSTIC WO CONTRAST Routine 10/23/2016 3:41 PM CDT from Last 3 Months or Most Recently Relevant to Health Maintenance Results * CT Virtual Colonoscopy Diagnostic WO Contrast (10/23/2016 3:41 PM CDT) Anatomical Region Laterality Modality Body N/A Computed Tomogra phy 10/23/2016 3:41 PM CDT Narrative 10/23/2016 3:41 PM CDT MARTA ZAPATA M.D. FLOYD BOYLE MD FINAL REPORT The radiology attending physician has personally reviewed this study, and has reviewed and/or edited this written report and agrees with it. ACC# ??Date Time ??Exam [id number] October 23, 2016 10:41:[id number] Colonography Dx w/o ACC# ??Date Time ??Exam [id number] October 23, 2016 10:41:[id number] Colonography Dx w/o EXAMINATION: ? CT colonography without intravenous contrast HISTORY: 56-year-old man with incomplete colonoscopy secondary to redundant colon. TECHNIQUE: Computed tomographic images through the abdomen and pelvis were obtained without intravenous contrast after the colonic insufflation of CO2 through a rectal catheter. COMPARISON: No prior colonography available for comparison. FINDINGS: The following findings are reported according to the CT Colonography Reporting and Data System (C-RADS) from Radiology 2005; 236:3-9. Colonic preparation and distention: There is a significant amount of retained, untagged stool in the cecum and proximal ascending colon. The preparation in the remainder of the colon is adequate. The distention of the colon is adequate on supine and right lateral decubitus views. Colonic findings: Within the distal ascending, transverse, descending, and rectosigmoid colon, no polyp greater than 5 mm in size is visualized. The colon is markedly tortuous. Extracolonic findings: This CT examination is performed without intravenous contrast and with a low dose technique optimized for evaluation of the colon. Cholecystectomy is noted. There is anterior and posterior lumbosacral spinal fusion. Otherwise, no significant extracolonic findings are evident. ?? IMPRESSION: 1. ??C-RADS C0: Incomplete study. There is retained, untagged stool in the cecum and proximal ascending colon which precludes complete evaluation of these segments. The remainder of the colon is normal without suspicious lesion. 2. ??C-RADS E2: clinically unimportant extracolonic findings. ?? Requested By: MAURICIO FRAZIER ??M.D. ? Dictated By: ?? FLOYD BOYLE MD ??on October ??2016 ??1:49P This document has been electronically signed by: MARTA ZAPATA M.D. on October ?? 2016 ??4:41P [id number] Procedure Note Miscellaneous, Not In File / Provider, MD Kaye - 11/11/2016 MARTA ZAPATA M.D. FLOYD BOYLE MD FINAL REPORT The radiology attending physician has personally reviewed this study, and has reviewed and/or edited this written report and agrees with it. ACC# Date Time Exam [id number] October 23, 2016 10:41:[id number] Colonography Dx w/o ACC# Date Time Exam [id number] October 23, 2016 10:41:[id number] Colonography Dx w/o EXAMINATION: CT colonography without intravenous contrast HISTORY: 56-year-old man with incomplete colonoscopy secondary to redundant colon. TECHNIQUE: Computed tomographic images through the abdomen and pelvis were obtained without intravenous contrast after the colonic insufflation of CO2 through a rectal catheter. COMPARISON: No prior colonography available for comparison. FINDINGS: The following findings are reported according to the CT Colonography Reporting and Data System (C-RADS) from Radiology 2005; 236:3-9. Colonic preparation and distention: There is a significant amount of retained, untagged stool in the cecum and proximal ascending colon. The preparation in the remainder of the colon is adequate. The distention of the colon is adequate on supine and right lateral decubitus views. Colonic findings: Within the distal ascending, transverse, descending, and rectosigmoid colon, no polyp greater than 5 mm in size is visualized. The colon is markedly tortuous. Extracolonic findings: This CT examination is performed without intravenous contrast and with a low dose technique optimized for evaluation of the colon. Cholecystectomy is noted. There is anterior and posterior lumbosacral spinal fusion. Otherwise, no significant extracolonic findings are evident. IMPRESSION: 1. C-RADS C0: Incomplete study. There is retained, untagged stool in the cecum and proximal ascending colon which precludes complete evaluation of these segments. The remainder of the colon is normal without suspicious lesion. 2. C-RADS E2: clinically unimportant extracolonic findings. Requested By: MAURICIO FRAZIER M.D. Dictated By: FLOYD BOYLE MD on Oct 23 2016 1:49P This document has been electronically signed by: MARTA ZAPTAA M.D. on Oct 23 2016 4:41P [id number] us Not In File Miscellaneous IMG CT PROCEDURES Mckenzie l Result from Last 3 Months or Most Recently Relevant to Health Maintenance Insurance [facility] MEDICARE HMO Care Teams Helicopter Crew Chief Relationship Specialty Start Date End Date Camden Bran PA [address] [place] [address] PCP - General Internal Medicine 04/16/24 [place] [address] [facility] [address] [place] [address] Nurse Practitioner Stain Wiper 04/16/24
--- OUTSIDE RECORDS SUMMARY | 2024-07-15 13:20 | XMS_ITS | Clinical Summary ---
Author Organization [facility] Address [address] [place] [address]. [place] [address] [place] [address] Care Team Providers Care Visual Merchandising Specialist Name Role Phone Nathen Vicente MD Primary Care Provider [phone] Allergies Active Allergy Reactions Criticality Noted Date Comments Bee Venom Anaphylaxis High 08/29/2018 Medications DULoxetine 60 MG capsule Take 1 capsule (60 mg total) by mouth daily. 0 Active Cholecalciferol (VITAMIN D3) 1.25 MG (78564 UT) Tab TAKE 1 TABLET BY MOUTH ONCE WEEKLY 0 Active albuterol sulfate HFA 108 (90 Base) MCG/ACT inhaler Inhale 2 puffs into the lungs every 4 (four) hours as needed. 0 Active docusate sodium 100 MG capsule Take 1 capsule (100 mg total) by mouth 2 (two) times daily. 9 Active tamsulosin 0.4 MG Cap Take 1 capsule (0.4 mg total) by mouth daily. 0 Active DULoxetine 30 MG capsule TAKE 1 CAPSULE BY MOUTH EVERYDAY AT BEDTIME 0 Active ondansetron 8 MG disintegrating tablet DISSOLVE 1 TABLET UNDER TONGUE EVERY 8 HOURS NEEDED FOR 2 DAYS 0 Active montelukast 10 MG tablet Take 1 tablet (10 mg total) by mouth nightly at bedtime. 0 Active triamcinolone 0.1 % cream 9 Active Pregabalin 225 MG Cap Take 1 capsule by mouth 2 (two) times daily. 0 Active oxyCODONE immediate release 5 MG immediate release tablet TAKE 1 TAB BY MOUTH EVERY 4 6 HOURS NEEDED 0 Active metoprolol tartrate (LOPRESSOR) 25 MG tablet Take 1 tablet (25 mg total) by mouth 2 (two) times daily. 3 Active Cyanocobalamin [address] 1 TABLET UNDER THE TONGUE ONCE DAILY Active ferrous sulfate, 65 mg elemental, 325 (65 FE) MG tablet Take 1 tablet (325 mg total) by mouth daily with breakfast. Active fentaNYL (DURAGESIC) 75 mcg/hr Place 1 patch onto the skin. Active fentaNYL (DURAGESIC) 100 mcg/hr Place 1 patch onto the skin every 3 (three) days. 4 Active folic acid (FOLVITE) 1 MG tablet Take 1 tablet (1 mg total) by mouth daily. 4 Active furosemide (LASIX) 40 MG tablet Take 1 tablet (40 mg total) by mouth daily. Active lidocaine-prilocai ne (EMLA) cream Apply topically as needed. Active LORazepam (ATIVAN) 0.5 MG tablet Take 1 tablet (0.5 mg total) by mouth. 3 Active naloxone (NARCAN) 4 MG/0.1ML nasal spray 1 spray by Nasal route as needed. Active omeprazole (PRILOSEC) 40 MG capsule Take 1 capsule (40 mg total) by mouth daily. 4 Active ondansetron (ZOFRAN) 8 MG tablet Take 1 tablet (8 mg total) by mouth every 8 (eight) hours as needed. 3 Active tiZANidine (ZANAFLEX) 4 MG tablet Take 1 tablet (4 mg total) by mouth 3 (three) times daily as needed. Active Docusate Sodium (DSS) 100 MG Cap Take 1 capsule by mouth 2 (two) times daily. 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 Anxiety 09/21/2023 Attention deficit hyperactiv ity disorder, predominantly inattentive type 09/21/2023 Costal chondritis 09/21/2023 Essential hypertension 09/21/2023 Chest pain 09/21/2023 Multiple joint pain 09/21/2023 Rib pain 09/21/2023 Skin eruption 09/21/2023 Smoker 09/21/2023 Low serum vitamin B12 08/30/2023 Disorder of skeletal system 07/25/2023 Acute respiratory failure with hypoxia ([facility]) 07/22/2023 Encounter for peripherally inserted central cath eter flush 04/16/2023 Tremor 02/14/2023 Upper respiratory infection 12/26/2022 Malignant neoplasm of lung ([facility]) Overview (09/21/2023): metastatic non-small cell cancer. but bone cancer Paget's disease of bone 07/13/2021 Paroxysmal A-fib ([facility]) 05/25/2021 Chronic pain syndrome 04/17/2021 Current chronic use of inhaled steroid History of therapeutic radiation 04/17/2021 retirement prescription opiate use 04/17/2021 Personal history of tobacco use 04/17/2021 Pulmonary air trapping 04/17/2021 Wheezing 04/17/2021 Benign prostatic hyperplasia with lower urinary tract symptoms 04/09/2019 Acute saddle pulmonary embol ism without acute cor pulmonale ([facility]) 02/11/2019 Typical atrial flutter ([facility]) 019 Wide-complex tachycardia 09/19/2018 Non-small cell lung cancer m 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 ([facility]) 07/16/2018 Vitamin D deficiency 06/25/2018 Sleep apnea, unspecified 06/24/2018 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 Overview (09/21/2023): S/p resection Chronic obstructive pulmonary disease ([facility]) 06/24/2018 Family history of heart disease 06/24/2018 Overview (09/21/2023): dad had pe and mi Neuropathy 06/24/2018 Overview (09/21/2023): neg rpr Abnormal chest xray 06/09/2016 Dyspnea on exertion 06/09/2016 Nicotine dependence 06/09/2016 Immunizations Name Administration Dates Next Due PFIZER COVID-19 (HEARD CAP), MRNA, LNP-S, PF, 30 MCG/0.3 ML SIMEON-SUCROSE, IM 09/17/2021 PFIZER COVID-19 (ORIGINAL FO RMULATION, PURPLE CAP) mRNA, LNP-S, PF, 30 MCG/0.3 ML DOSE 02/12/2021,09/16/2020,08/17/2020 PFIZER COVID-19 BIVALENT (12 +) mRNA, LNP-S, PF, 30 MCG/0.3 ML DOSE 02/05/2023,06/10/2022 Family History Medical History Relation Comments Heart Disease Father COPD Mother Cancer Sister Heart Disease Sister Relation Status Comments Father Mother Sister Social History Tobacco Use Types Packs/Day Years Used Date Smoking Tobacco: Former Cigarettes 1 08/12/1978 - 06/11/2019 Smokeless Tobacco: Never Tobacco Cessation:Counseling Given: Yes Alcohol Use Standard Drinks/Week Comments Not Currently 0 (1 standard drink = 0.6 oz pur e alcohol) Sex and Gender Information Value Date Recorded Sex Assigned at Male 03/09/2023 10:30 AM CDT Legal Sex Male 9:23 PM CDT Gender Identity Male 03/09/2023 10:30 AM CDT Sexual Orientation Straight 03/09/2023 10 :30 AM CDT Last Filed Vital Signs Vital Sign Reading Time Taken Comments Blood Pressure 94/67 02/12/2024 9:49 AM CDT Pulse 91 02/12/2024 9:49 AM CDT Temperature 36.7 ??C (98.1 ??F) 02/12/2024 9:49 AM CD T Respiratory Rate 18 09/21/2023 10:12 AM CDT Oxygen Saturation 95% 02/12/2024 9:49 AM CDT Inhaled Oxygen Concentration - - Weight 91.4 kg (201 lb 9.6 oz) 02/12/2024 9:49 A M CDT Height 182.9 cm (6') 02/12/2024 9:49 AM CDT Body Mass Index 27.34 02/12/2024 9:49 AM CDT Plan of Treatment Health Maintenance Due Date Last Done Comments Colorectal Cancer Screening Colonoscopy (10 Years) 1961 Annual Physical 1964 Pneumococcal Vaccine: Pediatrics (0 to 5 Years) and At-Risk Patients (6 to 64 Years) (1 of 2 - PCV) 1967 Hepatitis C 1979 DTaP, Tdap and Td Vaccines (1 - Tdap) 1980 Zoster Vaccines (1 of 2) 2011 RSV Immunization or 60+ Years (1 - Risk 60-74 years 1-dose series) 2021 COVID-19 Vaccine ( season) 2024 02/05/2023, 06/10/2022, 09/17/2021, Additional history exists Influenza Adult (#1) 2024 06/09/2022, 03/26/2021, 03/26/2019, Additional history exists PHQ-2 ([facility] [place]) 06/18/2024 Meningococcal B Vaccine Aged Out No l onger eligible based on patient's age to complete this topic Meningococcal Vaccine Aged Out No klarissa jose eligible based on patient's age to complete this topic RSV Immunizations Under 20 Months Aged Out No longer eligible based on patient's age to complete this topic Insurance [employer] Care Teams Visual Merchandising Specialist Relationship Specialty Start Date End Date Nathen Vicente MD [address] [place] [address] PCP - General HOSPITALIST 02/12/24
--- OUTSIDE RECORDS SUMMARY | 2024-07-15 13:20 | XMS_ITS | Continuity of Care Document ---
Author Organization [facility] Address [address] [place] [address] Phone Care Team Providers Care Animal Stunner Name Role Phone Danny Manzo MD Unavailable Unavailable Advance Directives Directive Yes / No Effective Date File Name No Information Encounters Encounter Description Practice Location Reason(s) For Visit Diagnoses Date Provider Providers Copied on Encounter [facility], [address], [place], [place], [id number], [place] tel:[phone] [facility] Jovany Delgado. [address] [place], [place], [id number], [place]. tel:[phone] Family History Family Member Type Diagnosis Age At Onset No Information Payers Payer name Insurance type Covered republican ID Authoriza tion(s) No Information Social History Type Description Quantity Date Captured Comments Sex Male Smoking Status No Information Chief Complaint And Reason For Visit No Information Reason For Referral Reason For Referral No Information History Of Present Illness Encounter Date Complaint History Of Prese nt Illness No Information Functional Status Date Functional Assessmen t No Information Instructions Date Instruction Additional Infor mation No Information Assessments Type Assessment Date No Information Patient Care Teams Name Effective Dates (start - stop) Status Members No Information
--- OUTSIDE RECORDS SUMMARY | 2024-07-15 13:20 | XMS_ITS | Referral Summary ---
Author Organization [facility] Address [address] [place] [address] Care Team Providers Care Plater Production Name Role Phone Iona Torres MD Primary Care Provider [phone] Source Comments [facility],non-owned Affiliates and Associated Physician Practices is amultiple site organization consisting of ambulatory clinics and hospital sitesin [place], [place], [place] and [place]. This disclosure is being madepursuant to the Care Everywhere program and may not contain all information available regarding this patient. Last updated 18.[facility] Allergies Active Allergy Reactions Criticality Noted Date Comments Bee Venom Anaphylaxis High 08/29/2018 Wasp Venom Anaphylaxis High 08/29/2018 Medications * Be aware that medications may not be up to date on this document. Alwaysverify current medications with the patient. Medication Sig Dispensed Refills Start Date End Date Status PROAIR HFA 108 (90 BASE) MCG/ACT inhalerIndication s:Cancer of upper lobe of right lung (HCC) Inhale 2 puffs by mouth as needed 06/17/2018 Active Cholecalciferol (VITAMIN D3) 92695 UNITS capsuleIndication s:Cancer of upper lobe of right lung (HCC) TAKE 1 CAPSULE BY MOUTH ONCE WEEKLY 0 07/16/2018 Active DULoxetine (CYMBALTA) 60 MG capsuleIndication s:Cancer of upper lobe of right lung (HCC) Take 60 mg by mouth once daily Take with 30 mg to = 90 mg total 0 07/14/2018 Active ipratropium (ATROVENT) 0.02 % nebulizer solutionIndicatio ns:Cancer of upper lobe of right lung (HCC) Inhale by mouth as needed 05/17/2018 Active DULoxetine (CYMBALTA) 30 MG capsule Take 30 mg by mouth at bedtime Take with 60 mg to equal 90 mg total Active oxyCODONE CR 12hr (OXYCONTIN) 20 MG tablet Take 20 mg by mouth every 12 hours Active oxyCODONE (OXY-IR) 5 MG capsule Take 5 mg by mouth every 6 hours as needed for Pain Active ALPRAZolam (XANAX) 0.5 MG tablet Take 0.5 mg by mouth as needed 08/28/2018 Active triamcinolone acetonide (KENALOG) 0.1 % cream Apply to affected area 2 times daily 5 02/06/2019 Active calcium 200 MG tablet Take 200 mg by mouth 2 times daily Active Mometasone Furo-Formoterol Fum (DULERA IN) Inhale 2 puffs by mouth 2 times daily Active rivaroxaban (XARELTO) 20 MG tabletIndications :Restart once no blood in urine noted. Take by mouth once daily 03/20/2019 Active polyethylene glycol 3350 (MIRALAX) powder 1 capful dissolved in 4-8 oz water or juice daily 527 g 2 03/27/2019 Active acetaminophen (TYLENOL) 500 MG tablet Take 1 tablet by mouth every 6 hours as needed for Fever or Pain Maximum allowable Acetaminophen amount = 4 Grams (4000 mg) / 24 hours. 0 04/24/2019 Active docusate sodium (COLACE) 100 MG capsule Take 1 capsule by mouth 2 times daily as needed for Constipation 04/24/2019 Active zolpidem (AMBIEN) 5 MG tablet 12/02/2019 Active montelukast (SINGULAIR) 10 MG tablet TAKE 1 TABLET BY MOUTH EVERYDAY AT BEDTIME 11/09/2019 Active pregabalin (LYRICA) 225 MG capsule Take 225 mg by mouth 2 times daily 12/17/2019 Active tamsulosin (FLOMAX) 0.4 MG capsuleIndication s:Cancer of upper lobe of right lung (HCC) Take 1 capsule by mouth once daily 30 capsule 5 12/30/2019 Active Active Problems Problem Noted Date Diagnosed Date Benign prostatic hyperplasia with lower urinary tract symptoms 04/09/2019 Typical atrial flutter 01/02/2019 Paroxysmal atrial flutter 01/02/2019 Wide-complex tachycardia 09/19/2018 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 (F LUZONE; FLULAVAL; FLUARIX; AFLURIA QUADRIVALENT; 6MO+), 0.5 ML (IIV4) 03/26/2019 Social History Tobacco Use Types Packs/Day Years Used Date Smoking Tobacco: Former Cigarettes 2 40 1 08/07/1977 - 06/06/2018 Smokeless Tobacco: Never Tobacco Cessation:Counseling Given: Yes Alcohol Use Standard Drinks/Week Comments No 0 (1 standard drink = 0.6 oz pur e alcohol) Sex and Gender Information Value Date Recorded Sex Assigned at Male 05/18/2021 6:10 PM SALES PORTER Gender Identity Male 05/18/2021 6:10 PM SALES PORTER Sexual Orientation Straight 05/18/2021 6: 10 PM SALES PORTER Last Filed Vital Signs Vital Sign Reading Time Taken Comments Blood Pressure 131/84 12/30/2019 9:24 AM CDT Pulse 93 12/30/2019 9:24 AM CDT Temperature 36.8 ??C (98.2 ??F) 12/30/2019 9:24 AM CD T Respiratory Rate 20 12/05/2019 8:14 AM CDT Oxygen Saturation 96% 12/30/2019 9:24 AM CDT Inhaled Oxygen Concentration 21% 04/09/2019 1 :00 PM CDT Weight 90.7 kg (200 lb) 12/30/2019 9:24 AM CDT Height 182.9 cm (6') 12/30/2019 9:24 AM CDT Body Mass Index 27.12 12/30/2019 9:24 AM CDT Plan of Treatment Not on file Procedures Procedure Name Priority Date/Time Associated Diagnosis Comments BASIC METABOLIC PANEL (CALCIUM TOTAL) STAT 04/23/2019 3:38 PM SALES PORTER Benign prostatic hyperplasia with urinary retention from Last 3 Months or Most Recently Relevant to Health Maintenance Results * (ABNORMAL) BASIC METABOLIC PANEL (CALCIUM TOTAL) (04/23/2019 3:38 PM SALES PORTER) Glucose 93 70 - 105 mg/dL 04/23/2019 4:10 PM SALES PORTER [facility] Sodium 138 136 - 145 mmol/L 04/23/2019 4:10 PM SALES PORTER [facility] Potassium 5.7(H) 3.5 - 4.7 mmol/L 04/23/2019 4:10 PM SALES P[employer]TER [facility] Chloride 105 98 - 107 mmol/L 04/23/2019 4:10 PM SALES PORTER [facility] CO2 24 23 - 31 mmol/L 04/23/2019 4:10 PM SALES PORTER [facility] Calcium 9.3 8.4 - 10.4 mg/dL 04/23/2019 4:10 PM SALES PORTER [facility] Anion Gap 9 8 - 16 mmol/L 04/23/2019 4:10 PM [facility] BUN 16 8.4 - 25.7 mg/dL 04/23/2019 4:10 PM [facility] Creatinine 0.97 0.72 - 1.25 mg/dL 04/23/2019 4:10 PM [facility] eGFR by MDRD >60 >60 mL/min/1.7 3m2 04/23/2019 4:10 PM [facility] [facility] eGFR by MDRD >60 >60 mL/min/1.7 3m2 04/23/2019 4:10 PM [facility] Blood BLOOD SPECIMEN / Unknown Venipuncture / Unknown 04/23/2019 3:38 PM SALES PORTER 04/23/2019 3:50 PM SALES [employer]TER Anirudh Paulino MD LAB - CHEMISTRY LALITHA SOL [facility] Organization Address City/State/ZIP Co de Phone Number [facility] [address] [place] [address] from Last 3 Months or Most Recently Relevant to Health Maintenance Advance Directives * Full Code (Latest Code Status on File) Date Activated Date Inactivated Comments 04/23/2019 4:59 PM 04/24/2019 2:06 PM * Full Code Date Activated Date Inactivated Comments 04/09/2019 12:54 PM 04/09/2019 3:15 PM * Full Code Date Activated Date Inactivated Comments 09/02/2018 11:02 AM 09/02/2018 7:02 PM Care Teams Plater Production Relationship Specialty Start Date End Date Iona Torres MD [address] [place] [address] PCP - General 07/04/18
--- OUTSIDE RECORDS SUMMARY | 2024-07-15 13:20 | XMS_ITS | Clinical Summary ---
Author Organization [facility] Address [address] [place] [address] Care Team Providers Care Superintendent Landfill Operations Name Role Phone Iona Torres MD Primary Care Provider [phone] Source Comments [facility],non-owned Affiliates and Associated Physician Practices is amultiple site organization consisting of ambulatory clinics and hospital sitesin [place], [place], [place] and [place]. This disclosure is being madepursuant to the Care Everywhere program and may not contain all information available regarding this patient. Last updated 18.[facility] Allergies Active Allergy Reactions Criticality Noted Date [...] as needed 06/17/2018 Active Cholecalciferol (VITAMIN D3) 68013 UNITS capsuleIndication s:Cancer of upper lobe of [...] Sex Assigned at Male 05/18/2021 6:10 PM SPACE CONTROLLER Gender Identity Male 05/18/2021 6:10 PM SPACE CONTROLLER Sexual Orientation Straight 05/18/2021 6: 10 PM SPACE CONTROLLER Last Filed Vital Signs Vital Sign Reading [...] 12/30/2019 9:24 AM CDT Plan of Treatment Health Maintenance Due Date Last Done Comments COLOGUARD (AGES 45-75) - COLON CA SCREENING 1961 COLON MONITORING 1961 COLONOSCOPY - COLON CA SCREENING 1961 CT COLONOGRAPHY - COLON CA SCREENING 1961 Colorectal Cancer Screening 1961 FIT - COLON CA SCREENING 1961 FLEX SIG - COLON CA SCREENING 1961 LIPID TESTING 1961 HIV SCREENING 1976 HEPATITIS C SCREENING 07/13/1979 DTAP/TDAP/TD VACCINES (1 - Tdap) 1980 LUNG CANCER SCREENING 2011 PNEUMOCOCCAL VACCINE 50+ (1 of 1 - PCV) 2011 ZOSTER VACCINE (1 of 2) 2011 Respiratory Syncytial Virus (RSV) Vaccine Pt: or over 60 yrs (1 - Risk 60-74 years 1-dose series) 2021 SCREENING FOR DIABETES 04/23/2022 9, 03/21/2019, 10/10/2018, Additional history exists COVID-19 VACCINE ( season) 2024 02/05/2023, 06/10/2022, 09/17/2021, Additional history exists INFLUENZA VACCINE (#1) 2024 1, 03/26/2019, 03/02/2018 DEPRESSION SCREENING 06/18/2024 HEPATITIS B VACCINE Aged Out No longe r eligible based on patient's age to complete this topic HIB VACCINE Aged Out No longer eligi ble based on patient's age to complete this topic HPV VACCINE Aged Out No longer eligi ble based on patient's age to complete this topic MENINGOCOCCAL (Group B) VACCINE Aged Out No longer eligible based on patient's age to complete this topic MENINGOCOCCAL VACCINE Aged Out No klarissa jose eligible based on patient's age to complete this topic Procedures Procedure Name Priority Date/Time Associated Diagnosis Comments BASIC METABOLIC PANEL (CALCIUM TOTAL) STAT 04/23/2019 3:38 PM SPACE CONTROLLER Benign prostatic hyperplasia with urinary retention from Last 3 Months or Most Recently Relevant to Health Maintenance Results * (ABNORMAL) BASIC METABOLIC PANEL (CALCIUM TOTAL) (04/23/2019 3:38 PM SPACE CONTROLLER) Glucose 93 70 - 105 mg/dL 04/23/2019 4:10 PM SPACE CONTROLLER [facility] Sodium 138 136 - 145 mmol/L 04/23/2019 4:10 PM SPACE CONTROLLER [facility] Potassium 5.7(H) 3.5 - 4.7 mmol/L 04/23/2019 4:10 PM SPACE CONTROLLER [facility] Chloride 105 98 - 107 mmol/L 04/23/2019 4:10 PM SPACE CONTROLLER [facility] CO2 24 23 - 31 mmol/L 04/23/2019 4:10 PM SPACE CONTROLLER [facility] Calcium 9.3 8.4 - 10.4 mg/dL 04/23/2019 4:10 PM SPACE CONTROLLER [facility] Anion Gap 9 8 - 16 mmol/L 04/23/2019 4:10 PM SPACE CONTROLLER [facility] BUN 16 8.4 - 25.7 mg/dL 04/23/2019 4:10 PM SPACE CONTROLLER [facility] Creatinine 0.97 0.72 - 1.25 mg/dL 04/23/2019 4:10 PM SPACE CONTROLLER [facility] eGFR by MDRD >60 >60 mL/min/1.7 3m2 04/23/2019 4:10 PM SPACE CONTROLLER [facility] eGFR by MDRD >60 >60 mL/min/1.7 3m2 04/23/2019 4:10 PM SPACE CONTROLLER [facility] Blood BLOOD SPECIMEN / Unknown Venipuncture / Unknown 04/23/2019 3:38 PM SPACE CONTROLLER 04/23/2019 3:50 PM SPACE CONTROLLER Anirudh Paulino MD LAB - CHEMISTRY LALITHA [facility] Organization Address City/State/ZIP Co de Phone Number [facility] [address] [place] [address] from Last 3 Months or Most Recently Relevant to Health Maintenance Advance Directives * Full Code (Latest Code Status on File) Date Activated Date Inactivated Comments 04/23/2019 4:59 PM 04/24/2019 2:06 PM * Full Code Date Activated Date Inactivated Comments 04/09/2019 12:54 PM 04/09/2019 3:15 PM * Full Code Date Activated Date Inactivated Comments 09/02/2018 11:02 AM 09/02/2018 7:02 PM Care Teams Superintendent Landfill Operations Relationship Specialty Start Date End Date Iona Torres MD [facility] [place] [address] PCP - General 07/04/18
--- OUTSIDE RECORDS SUMMARY | 2024-07-15 13:20 | XMS_ITS | CONTINUITY OF CARE DOCUMENT ---
Author Name sheila sosa Address Unknown Organization [facility] Address [address] [place] [address] Phone [phone] Care Team Providers Care Manager Programs Name Role Phone Bernabe ADRIAN, Bryan Unavailable PATTI TEMPLETON Unavailable BRIAN ADRIAN, ABRIL CAICEDO Unavailable [phone] PROBLEMS Condition Status Date Provider Notes Vitamin D deficiency active Bryan Morelos COPD active Bryan Kidd MD Ventricular tachycardia active Bryan hess MD Tobacco abuse active Bryan Kidd MD Atrial myxoma, left active Bryan Kidd MD Neuropathy active Bryan Kidd MD neg rpr Pulmonary nodule active Bryan Kidd MD Screening active Bryan Kidd MD FAMILY HISTORY OF HEART DISEASE active Vic Kidd MD dad had pe and mi ? Sleep apnea active Bryan Kidd MD BPH active Bryan Kidd MD ENCOUNTERS Date Type Provider Location Encounter Diag nosis - In-person encounter Office Visit Bryan Kidd MD [facility] COPDVentricular tachycardiaTobacco abuseAtrial myxoma, leftNeuropathyPulmonary noduleScreeningFAMILY HISTORY OF HEART DISEASE? Sleep apneaBPH VITAL SIGNS Date Observation Value Provider Body Mass Index (Ratio) 24.41 kg/m2 Vic Kidd MD blood pressure, resting Yes Cj Valero oxygen saturation, oximetry 97 % Uyen Valero blood pressure, diastolic 78 mm[Hg] Xiomara astharley Marylu blood pressure, systolic 120 mm[Hg] Fatimah stity Marylu respiratory rate E&M 16 /min Rachelle Valero pulse rate 95 /min Kadeemity Marylu height E&M 72 [in_i] Kadeemity Marylu weight E&M 180 [lb_av] [facility] ALL[facility] No Known Drug Allergies RESULTS Date Observation Value Provider Reference Range Interpretation Location 8 B-12, serum 567 pg/mL [facility] [id number] rapid plasma reagin antibody screen Non Reactive [facility] Non Reactive HISTORY OF MEDICATION USE Medication Status Instructions Dates Provider Indications Com ments VITAMIN D3 61415 UNIT ORAL TABLET active TAKE ONE TAB BY MOUTH WEEKLY 8 Bryan Kidd MD DULOXETINE HCL 60 MG ORAL CAPSULE DELAYED RELEASE PARTICLES active TAKE 1 CAPSULE BY MOUTH EVERY DAY 4 Chastity Marylu #30, 30 days supply, Prescribed by LAURA VANN, Filled 05/21/2018 PROAIR HFA 108 (90 BASE) MCG/ACT INHALATION AEROSOL SOLUTION active INHALE 2 PUFFS BY MOUTH EVERY 4 HOURS 6 Chastity Marylu #9, 17 days supply, Prescribed by JUSTINA OLMOS, Filled 06/17/2018 METOPROLOL TARTRATE 25 MG ORAL TABLET active TAKE 1 TABLET EVERY 12 HOURS 4 Chastity Marylu #60, 30 days supply, Prescribed by KRIS MOSLEY, Filled 05/22/2018 TAMSULOSIN HCL 0.4 MG ORAL CAPSULE active TAKE 1 CAPSULE BY MOUTH EVERY DAY 8 Chastity Marylu #30, 30 days supply, Prescribed by JUSTINA OLMOS, Filled 06/09/2018 LYRICA 75 MG ORAL CAPSULE active TAKE 2 CAPSULE IN THE MORNING AND TAKE 2 CAPSULES AT BEDTIME 6 Fatimahstity Marylu #120, 30 days supply, Prescribed by LAURA VANN, Filled 05/23/2018 OXYCODONE HCL 5 MG ORAL TABLET active TAKE 1 TABLET EVERY 4-6 HOURS NEEDED. 6 Chastity Marylu #60, 30 days supply, Prescribed by LAURA VANN, Filled 05/23/2018 OXYCONTIN 20 MG ORAL TABLET ER 12 HOUR ABUSE-DETERRENT active TAKE 1 TABLET EVERY 12 HOURS NEEDED 6 Chastity Marylu #60, 30 days supply, Prescribed by LAURA VANN, Filled 05/23/2018 DULOXETINE HCL 30 MG ORAL CAPSULE DELAYED RELEASE PARTICLES active TAKE ONE CAPSULE BY MOUTH EVERY DAY AT BEDTIME 3 Fatimahstity Marylu #30, 30 days supply, Prescribed by LAURA VANN, Filled 06/20/2018 SOCIAL HISTORY Date Observation Value Provider smoking/tobacco cess ation, patient education and counseling yes Bryan Kidd MD social history E&M S moking History: P atsp currently smokes every day. Bryan Kidd MD social history reviewed E&M revi ewed - no changes required Bryan Kidd MD number of years as a smoker 40 a Uyen Valero cigarette use yes Uyen Valero smoking status Current every day smoker C tuan [place]ou[place] FAMILY HISTORY Family Member Condition Full Sister Family History Breas t Cancer: Father Family History of Pr ostate Cancer: Father Family History of Co ronary Artery Disease: Father Family History of Hy pertension: Mother Family History of Hy pertension: INSURANCE PROVIDERS Payer name Policy type / Coverage type [place] [employer] party [place] (2) Medicaid [id number] ADVANCE DIRECTIVES Name Date DISCUSSED - NO DECISION MADE TREATMENT PLAN Date Name Performer Cardiology:nmlpsa Bryan Kidd MD Cardiology:many sx adelina lwu Ja Kidd MD Cardiology:no hiv on eg psa, neg hep c and hep panel, neg vd, neg chol, neg tsh Bryan Kidd MD Cardiology:had luci, told its one cm Bryan Kidd MD Cardiology:neg pet Bryan Kidd MD Cardiology Bryan Kidd MD Cardiology:shocked 3 times in setp 2018, neg cardiac cath, told due to bria Kidd MD Date Name RPR (MONITOR) W/REFL TITER Sleep Study Home VITAMIN B12 Vitamin D, 25-Hydrox y CT, Coronary Calcium Score HISTORY OF PROCEDURES Procedure Date Procedure Name Provider Procedure Notes S tatus EKG Bryan Kidd MD complete d
--- OUTSIDE RECORDS SUMMARY | 2024-07-15 13:20 | XMS_ITS | Referral Summary ---
Author Organization [facility] Address [address] [place] [address] Care Team Providers Care Rotary Operator Name Role Phone Camden Bran Primary Care Provider + Edilma Lubin SHOVE UP Unavailable [phone] Encounters Date Type Department Care Team Description 04/16/2024 8:14 AM CDT - 04/16/2024 11:59 PM CDT Hospital Encounter [facility] [address] [place], [place] [id number] Edilma Lubin NP Pain, cancer (Primary Dx); Other back pain, unspecified chronicity; Postlaminectomy syndrome, lumbar; Multiple joint pain; Essential hypertension; Chronic pain syndrome; Presence of implanted infusion pump Discharge Disposition: Discharge to home or self care from Last 3 Months Allergies Active Allergy Reactions Criticality Noted Date Comments Venom-Honey Bee Anaphylaxis High 08/29/2018 Wasp Venom Anaphylaxis High 08/29/2018 Wasp Venom Protein Starter Kit Anaphylaxis High 08/16 Medications triamcinolone (KENALOG) 0.1 % cream as needed Active pregabalin (LYRICA) 225 mg capsule Take 1 capsule (225 mg total) by mouth 2 (two) times a day 4 Active cholecalciferol (VITAMIN D-3) 39567 unit tablet Take 1 tablet (50,000 Units [...] mouth daily as needed 2 Active lidocaine-prilo airana cream APPLY TO AFFECTED AREA DAILY DIRECTED [...] hours as needed for pain 10 tablet 4 Active ramucirumab (Cyramza) 10 mg/mL solution Infuse [...] on exertion 06/09/2016 Abnormal chest xray 06/09/2016 Social History Tobacco Use Types Packs/Day Years [...] on file Legal 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 Gender Identity Male 03/18/2024 2:40 PM CDT Sexual Orientation Straight 03/18/2024 2: 40 PM CDT Last Filed Vital Signs Vital Sign [...] 02/28/2024 7:32 AM CDT Plan of Treatment Not on file Medical Devices Implanted Type Area Wig Comber Device Identifier Shelf Expiration Date Model / Serial / Lot Medtronic Inc Ascenda 4fr .5mm 114cm 86cm 2 Piece Connector Pin Flexible Closed [id number] - [id number] Implanted:Qty: 1 on 10/11/2023 by Gerry Trivedi MD at [facility] Left: Abdomen Medtronic Inc 09/19/2025 8780 / / [id number] Medtronic U[employer] X Pump Infusion Programmable Ulp Ami 40ml Volume Synchromed Iii 8667-40 - [id number] - [id number] Implanted:Qty: 1 on 10/11/2023 by Gerry Trivedi MD at [facility] Left: Abdomen Med[employer] X 03/01/2025 8667-40 / [id number] / Medtronic Inc Tyrx 3.35x3in Large Envelope Absorbable Polyarylate Minocycline [id number] - [id number] Implanted:Qty: 1 on 10/11/2023 by Gerry Trivedi MD at [facility] Left: Abdomen Medtronic Inc 05/22/2024 [id number] / / [id number] Med[employer]onic Inc Vectris 5mm 75cm 1x8 Electrode Compact Mri Lead Neurostimulator [id number] - [id number] Implanted:Qty: 1 on 02/28/2024 by Gerry Trivedi MD at [facility] N/A: Back Medtronic Inc 11/19/2027 977 [id number] / / [id number] Medtronic Inc Generator Pulse Inceptiv Sys Stm Electrcl Analges Implant [id number] - [id number] - [id number] Implanted:Qty: 1 on 02/28/2024 by Gerry Trivedi MD at [facility] N/A: Back Med[employer]onic Inc 977 119 / [id number] / Med[employer]onic Inc Vectris 5mm 75cm 1x8 Electrode Compact Mri Lead Neurostimulator [id number] - [id number] Implanted:Qty: 1 on 02/28/2024 by Gerry Trivedi MD at [facility] N/A: Back Med[employer]onic Inc 05/28/2027 977 [id number] / / [id number] Medtronic Inc Envelope Absrb 2.7x2.5in Antibacterial Tyrx Medium Strl [id number] - [id number] Implanted:Qty: 1 on 02/28/2024 by Gerry Trivedi MD at [facility] N/A: Back Med[employer]onic Inc 10/06/2024 [facility] [id number] / / [id number] Procedures Procedure Name Priority Date/Time Associated Diagnosis [...] agrees with it. ACC# ??Date Time ??Exam [id number] October 23, 2016 10:41:[address] Colonography Dx w/o ACC# ??Date Time ??Exam [id number] October 23, 2016 10:41:[address] Colonography Dx w/o EXAMINATION: ? CT [...] ZAPATA M.D. on October ?? 2016 ??4:41P [id number] Procedure Note Miscellaneous, Not In File / Provider, MD Kaye - 11/11/2016 MARTA ZAPATA M.D. FLOYD BOYLE MD FINAL REPORT The radiology attending physician has personally reviewed this study, and has reviewed and/or edited this written report and agrees with it. ACC# Date Time Exam [id number] October 23, 2016 10:41:[address] Colonography Dx w/o ACC# Date Time Exam [id number] October 23, 2016 10:41:[address] Colonography Dx w/o EXAMINATION: CT colonography [...] electronically signed by: MARTA ZAPATA M.D. on Oct 23 2016 4:41P [id number] us Not In File Miscellaneous IMG CT PROCEDURES Mckenzie l Result from Last 3 Months or Most Recently Relevant to Health Maintenance Insurance [address] [place] [id number] [employer] MED[employer] HMO [address] [place] [address] [employer] MEDICARE HMO Care Teams Rotary Operator Relationship Specialty Start Date End Date Camden Bran PA [address] [place] [address] PCP - General Internal Medicine 04/16/24 [place] [address] [address] Nurse Practitioner Bowling Ball Weigher And Packer 04/16/24
--- OUTSIDE RECORDS SUMMARY | 2024-07-15 13:20 | XMS_ITS | Encounter Summary ---
Author Organization [facility] Address [address] [place] [address]. [place] [address] [place] [address] Care Team Providers Care Analysis Reporting Developer Name Role Phone Iona Saucedo MD Primary Care Provider [phone] Nathen Vicente MD Primary Care Provider [phone] Encounter Details Date Type Department Care Team (Late st Contact Info) Description 04/16/[address] [facility] [address] [place], [place] [id number] Felix Vergara MD [address] [facility] [address] [place] [address] Social History Tobacco Use Types Packs/Day Years Used Date Smoking Tobacco: Former Cigarettes 1 08/12/1978 - 06/11/2019 Smokeless Tobacco: Never Alcohol Use Standard Drinks/Week Comments Not Currently 0 (1 standard drink = 0.6 oz pur e alcohol) Sex and Gender Information Value Date Recorded Sex Assigned at Male 03/09/2023 10:30 AM CDT Legal Sex Male 9:23 PM CDT Gender Identity Male 03/09/2023 10:30 AM CDT Sexual Orientation Straight 03/09/2023 10 :30 AM CDT documented as of this encounter Plan of Treatment Not on file documented as of this encounter Visit Diagnoses Diagnosis Encounter for peripherally inserted central catheter flush- Primary Fitting and adjustment of vascular catheter documented in this encounter Care Teams Analysis Reporting Developer Relationship Specialty Start Date End Date Iona Saucedo MD [address] [place] [address] PCP - General FAMILY PRACTICE 12/02/19 02/11/24 Nathen Vicente MD [address] [place] [address] PCP - General HOSPITALIST 02/12/24 documented as of this encounter
--- OUTSIDE RECORDS SUMMARY | 2024-07-15 13:20 | XMS_ITS ---
Author Organization [facility] Address [address] [place] [address] Care Team Providers Care Applications Engineer Manufacturing Name Role Phone Camden Bran Primary Care Provider + Edilma Lubin LICENSED CLINICAL SOCIAL WORKER Unavailable [phone] Active Problems Problem Noted Date Diagnosed Date [...] on exertion 06/09/2016 Abnormal chest xray 06/09/2016 Current Oncology Plans No current plan information found. Past Plans No past plan information found. Radiation Treatments * No radiation treatments are documented for this patient in [facility]. Treatments may have been administered in another system. Lifetime Dose Tracking * Chemical Lifetime Dose Automatic Entry Manual Entr y Fluoro Time 4.06 minutes 4.06 minutes 0 minutes Air kerma at the reference point (Ka,r) 49.19 mGy 4 9.19 mGy 0 mGy
--- OUTSIDE RECORDS SUMMARY | 2024-07-15 13:20 | XMS_ITS | Patient Health Summary ---
Author Organization [facility] [employer] Address [address] [place] [address] Care Team Providers Care Bakelite Molder Name Role Phone Iona Torres MD Primary Care Provider [phone] Note from [facility],non-owned Affiliates and Associated Physician Practices is amultiple site organization consisting of ambulatory clinics and hospital sitesin [place], [place], [place] and [place]. This disclosure is being madepursuant to the Care Everywhere program and may not contain all information available regarding this patient. Last updated 18.[facility] Allergies * Bee Venom(Anaphylaxis) -High Criticality * Wasp Venom(Anaphylaxis) -High Criticality Medications * Be aware that medications may not be up to date on this document. Alwaysverify current medications with the patient. * PROAIR HFA 108 (90 BASE) MCG/ACT inhaler(Started 06/17/2018) Inhale 2 puffs by mouth as needed * Cholecalciferol (VITAMIN D3) 25754 UNITS capsule(Started 07/16/2018) TAKE 1 CAPSULE BY MOUTH ONCE WEEKLY * DULoxetine (CYMBALTA) 60 MG capsule(Started 07/14/2018) Take 60 mg by mouth once daily Take with 30 mg to = 90 mg total * ipratropium (ATROVENT) 0.02 % nebulizer solution(Started 05/17/2018) Inhale by mouth as needed * DULoxetine (CYMBALTA) 30 MG capsule Take 30 mg by mouth at bedtime Take with 60 mg to equal 90 mg total * oxyCODONE CR 12hr (OXYCONTIN) 20 MG tablet Take 20 mg by mouth every 12 hours * oxyCODONE (OXY-IR) 5 MG capsule Take 5 mg by mouth every 6 hours as needed for Pain * ALPRAZolam (XANAX) 0.5 MG tablet(Started 08/28/2018) Take 0.5 mg by mouth as needed * triamcinolone acetonide (KENALOG) 0.1 % cream(Started 02/06/2019) Apply to affected area 2 times daily 5 refills left * calcium 200 MG tablet Take 200 mg by mouth 2 times daily * Mometasone Furo-Formoterol Fum (DULERA IN) Inhale 2 puffs by mouth 2 times daily * rivaroxaban (XARELTO) 20 MG tablet(Started 03/20/2019) Take by mouth once daily * polyethylene glycol 3350 (MIRALAX) powder(Started 03/27/2019) 1 capful dissolved in 4-8 oz water or juice daily 2 refills remaining * acetaminophen (TYLENOL) 500 MG tablet(Started 04/24/2019) Take 1 tablet by mouth every 6 hours as needed for Fever or Pain Maximum allowable Acetaminophen amount = 4 Grams (4000 mg) / 24 hours. * docusate sodium (COLACE) 100 MG capsule(Started 04/24/2019) Take 1 capsule by mouth 2 times daily as needed for Constipation * zolpidem (AMBIEN) 5 MG tablet(Started 12/02/2019) * montelukast (SINGULAIR) 10 MG tablet(Started 11/09/2019) TAKE 1 TABLET BY MOUTH EVERYDAY AT BEDTIME * pregabalin (LYRICA) 225 MG capsule(Started 12/17/2019) Take 225 mg by mouth 2 times daily * tamsulosin (FLOMAX) 0.4 MG capsule(Started 12/30/2019) Take 1 capsule by mouth once daily 5 refills by 12/29/2020 Active Problems Problem Noted Date Diagnosed Date Benign prostatic hyperplasia with lower urinary tract symptoms 04/09/2019 Typical atrial flutter 01/02/2019 Paroxysmal atrial flutter 01/02/2019 Wide-complex tachycardia 09/19/2018 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 (FLUZONE; FLULAVAL; FLUARIX; AFLURIA QUADRIVALENT; 6MO+), 0.5 ML (IIV4)(Given 03/26/2019) Social History Tobacco Use Types Packs/Day Years Used Date Smoking Tobacco: Former Cigarettes 2 40 1 08/07/1977 - 06/06/2018 Smokeless Tobacco: Never Tobacco Cessation:Counseling Given: Yes Alcohol Use Standard Drinks/Week Comments No 0 (1 standard drink = 0.6 oz pur e alcohol) Sex and Gender Information Value Date Recorded Sex Assigned at Male 05/18/2021 6:10 PM FLEXIBLE NANNY Gender Identity Male 05/18/2021 6:10 PM FLEXIBLE NANNY Sexual Orientation Straight 05/18/2021 6: 10 PM FLEXIBLE NANNY Last Filed Vital Signs Vital Sign Reading [...] Mass Index 27.12 12/30/2019 9:24 AM CDT Procedures * MI INSERT NON-INDWELLING BLADDER(Performed 12/30/2019) Performed for Lower urinary tract symptoms (LUTS), Urinary hesitancy * MI INTRAABDOMINAL PRESSURE TEST(Performed 12/30/2019) Performed for Lower urinary tract symptoms (LUTS), Urinary hesitancy * MI ANAL/URINARY MUSCLE STUDY(Performed 12/30/2019) Performed for Lower urinary tract symptoms (LUTS), Urinary hesitancy * MI ELECTRO-UROFLOWMETRY, FIRST(Performed 12/30/2019) Performed for Lower urinary tract symptoms (LUTS), Urinary hesitancy * MI COMPLEX CYSTOMETROGRAM(Performed 12/30/2019) Performed for Lower urinary tract symptoms (LUTS), Urinary hesitancy * MI CYSTOURETHROSCOPY(Performed 12/10/2019) Performed for Urinary retention * CULTURE URINE(Performed 12/09/2019) Performed for Dysuria * URINALYSIS AUTO - POINT OF CARE (AMB) [facility](Performed 12/09/2019) Performed for Dysuria * CARDIAC EKG ORDER(Performed 12/03/2019) * CARDIAC EKG ORDER(Performed 06/30/2019) * CULTURE URINE(Performed 05/13/2019) Performed for Lower urinary tract symptoms (LUTS) * MI MSR PVR U&/BLADD CAPCTY US NON(Performed 05/13/2019) Performed for Lower urinary tract symptoms (LUTS) * URINALYSIS AUTO - POINT OF CARE (AMB) [facility](Performed 05/13/2019) Performed for Lower urinary tract symptoms (LUTS) * CARDIAC RHYTHM STRIP ORDER(Performed 04/25/2019) * BASIC METABOLIC PANEL (CALCIUM TOTAL)(Performed 04/23/2019) Performed for Benign prostatic hyperplasia with urinary retention * CBC W/O DIFFERENTIAL(Performed 04/23/2019) Performed for Benign prostatic hyperplasia with urinary retention * PATHOLOGY TISSUE EXAM (STL)(Performed 04/23/2019) Performed for Diagnosis unknown * NEURAXIAL BLOCK(Performed 04/23/2019) * MI TRANSURETHRAL ELEC-SURG PROSTATECTOM(Performed 04/23/2019) Performed for Diagnosis unknown * PT PTT PANEL(Performed 04/21/2019) Performed for Pre-op testing * CBC W AUTO DIFFERENTIAL(Performed 04/21/2019) Performed for Pre-op testing * PROC CATHETER CHANGE/INSERTION(Performed 04/14/2019) Performed for Benign prostatic hyperplasia with lower urinary tract symptoms, symptom details unspecified * CULTURE URINE(Performed 04/09/2019) Performed for Urinary tract infection associated with indwelling urethral catheter, initial encounter ([facility]) * URINALYSIS W/MICROSCOPIC NO CULTURE(Performed 03/21/2019) Performed for BPH with obstruction/lower urinary tract symptoms, Pre-op testing * CULTURE URINE(Performed 03/21/2019) Performed for BPH with obstruction/lower urinary tract symptoms, Pre-op testing * BASIC METABOLIC PANEL (CALCIUM TOTAL)(Performed 03/21/2019) Performed for BPH with obstruction/lower urinary tract symptoms, Pre-op testing * PTT [facility](Performed 03/21/2019) Performed for BPH with obstruction/lower urinary tract symptoms, Pre-op testing * PT-INR [facility](Performed 03/21/2019) Performed for BPH with obstruction/lower urinary tract symptoms, Pre-op testing * CBC W AUTO DIFFERENTIAL(Performed 03/21/2019) Performed for BPH with obstruction/lower urinary tract symptoms, Pre-op testing * EKG 12-LEAD(Performed 03/21/2019) Performed for Wide-complex tachycardia, Atrial myxoma (HCC), Paroxysmal atrial flutter (HCC) * ECHO HEIDI TRANSESOPHAGEAL(Performed 03/07/2019) Performed for Atrial myxoma (HCC) * MI CYSTOURETHROSCOPY(Performed 02/25/2019) Performed for Enlarged prostate * PROC UROFLOWMETRY(Performed 02/19/2019) Performed for Enlarged prostate * MRI CARDIAC STUDY WWO CONTRAST(Performed 12/24/2018) Performed for Wide-complex tachycardia * CREATININE BLOOD - POCT (IP) [facility](Performed 12/24/2018) Performed for Left atrial mass * PROC EKG IN CLINIC(Performed 11/04/2018) Performed for Wide-complex tachycardia * CARDIAC PROCEDURE ORDER(Performed 10/15/2018) * EP LAB CONSULT(Performed 10/12/2018) * EP LAB ORDER FOR DICTATION(Performed 10/12/2018) * CARDIAC RHYTHM STRIP ORDER(Performed 10/11/2018) * T4 FREE DIRECT REFLEXED(Performed 10/10/2018) Performed for Typical atrial flutter (HCC) * TSH REFLEX FREE T4(Performed 10/10/2018) Performed for Typical atrial flutter (HCC) * MAGNESIUM BLOOD(Performed 10/10/2018) Performed for Typical atrial flutter (HCC) * BASIC METABOLIC PANEL (CALCIUM TOTAL)(Performed 10/10/2018) Performed for Typical atrial flutter (HCC) * CBC W AUTO DIFFERENTIAL(Performed 10/10/2018) Performed for Typical atrial flutter (HCC) * ENDOTRACHEAL TUBE NOTE(Performed 10/09/2018) * PT-INR(Performed 10/07/2018) Performed for Atrial flutter, unspecified type (HCC) * CBC W AUTO DIFFERENTIAL(Performed 10/07/2018) Performed for Atrial flutter, unspecified type (HCC) * BASIC METABOLIC PANEL (CALCIUM TOTAL)(Performed 10/07/2018) Performed for Atrial flutter, unspecified type (HCC) * BRONCHOSCOPY WITH ENDOSCOPIC BRONCHIAL ULTRASOUND (EBUS)(Performed 09/19/2018) Performed for Cancer of upper lobe of right lung (HCC) * CARDIAC EKG ORDER(Performed 09/03/2018) * FINE NEEDLE ASPIRATION (STL)(Performed 09/02/2018) Performed for Small cell carcinoma (HCC) * ENDOTRACHEAL TUBE NOTE(Performed 09/02/2018) * BRONCHOSCOPY WITH ENDOBRONCHIAL ULTRASOUND (EBUS)(Performed 09/02/2018) Performed for Abnormal CT scan of lung * BRONCHOSCOPY(Performed 09/02/2018) * BASIC METABOLIC PANEL (CALCIUM TOTAL)(Performed 09/02/2018) Performed for Paroxysmal atrial fibrillation (HCC) * CBC W/O DIFFERENTIAL(Performed 09/02/2018) Performed for Paroxysmal atrial fibrillation (HCC) * EKG 12-LEAD(Performed 08/29/2018) Performed for Pre-op evaluation Results * MI COMPLEX CYSTOMETROGRAM, MI ELECTRO-UROFLOWMETRY, FIRST, MI ANAL/URINARY MUSCLE STUDY, MI INTRAABDOMINAL PRESSURE TEST, MI INSERT NON-INDWELLING BLADDER (12/30/2019 1:46 PM CDT) Narrative Lidia Sanchez, DO - 12/30/2019 1:46 PM CDT Lidia Sanchez, DO ? 12/30/2019 ??1:55 PM URODYNAMIC REPORT 12/30/2019 59yo male presents to the urodynamic suite for evaluation of urinary hesitancy and difficulty voiding. ??He has history of TURP in 2018 and voided well for months afterward. ??He has been having hesitancy and difficulty voiding over the past 1.5 years. ??HERBIE Nice did cystoscopy which showed wide open prostatic fossa, no strictures or obstruction. ??He voids sitting and it takes a long time to get going. ??Once he goes, he reports good flow. ??He restarted flomax on his own and notes minimal improvement. ?? A non-invasive flow study was attempted, but patient couldn't void. Following this, a 8Fr catheter was placed into the bladder. 300cc drained. ??A rectal catheter was placed to measure abdominal pressure and EMG patches were placed to measure sphincter activity. The bladder was filled with sterile water at a rate of 1 ml/min. The patient's first sensation came at 324 ml. The patient's first desire came at 402 ml. The patient's strong desire came at 644 ml. The patient's urgency came at 805 ml. The patient did not leak with cough at 166 ml. The patient did not leak with valsalva. Detrusor overactivity was not noted through testing. The sphincter activity was quiet. A pressure flow study was not able to be obtained as patient could not void with the catheters in place. ??The maximum detrusor pressure was 33 cm/H2O. A non-invasive flow study was performed afterward during which the patient was able to void normally which showed: A peak flow of ??ml/sec with a voiding volume of 719 ml and a residual urine volume of 200 ml. ??Max flow 28.5 with average flow of 7.6. ??Extended flow curve with intermittency in the beginning. CONCLUSION: 1. There is low to normal flow 2. There is incomplete bladder emptying 3. There is normal to delayed sensation 4. The sphincter is synergic. ??Though fires when attempting voiding, likely due to straining. 5. There is no stress incontinence 6. There is no urge incontinence He can continue flomax. ??May help with hesitancy. ??If not helping, I would stop it given cysto shows open prostate and bladder neck. ?? I offered to teach him CIC for days he can't empty or wants to go but can't. ??He declined. He has neuropathy, can't feel the bottom of his feet. ??I think his bladder is becoming neurogenic. ?? As long as he is able to void, no need for intervention. ?? May need CIC in the future. Lidia Sanchez DO 12/30/2019 1:46 PM Lidia Sanchez DO PROCEDURE/MINOR OCONNELL RGICAL ORDERABLES * MI CYSTOURETHROSCOPY (12/10/2019 9:50 AM CDT) Narrative Eileen Nice APRN-CNP - 12/10/2019 9:50 AM CDT Eileen Nice APRN-CNP ? 12/10/2019 ??9:52 AM Cystoscopy procedure note Indication for Procedure: urinary retention Description: Pt placed on the procedure table in ??The supine/lithotomy position. he ??was prepped/draped in standard fashion. ??Pt correctly identified and time out performed. ??A flexible cystoscope was introduced per urethra withthe following findings. Urethra: ??Normal caliber, no stricture. ??No masses. ??Urethral sphincter with good coaptation Prostate - negative prostatic hyperplasia present, recent surgical resection noted and open at the bladder neck, no obstruction noted Verumontanum in normal position Bladder neck patent without contracture Trigone - UO's orthotopic bilaterally. ??Clear efflux seen from both ureteral orifices. Mucosa normal without lesion Bladder - normal mucosa without tumor/stone/erythema. ??No FB present. ??No trabeculation. ??No cellules or diverticula. ??No fistula. ??Scope was retroflexed to assess entire surface of bladder. IMPRESSION: ??Normal exam PLAN: UDS testing Elieen Nice APRN-MARK Eileen JIMENEZ PROCEDURE/MIN OR SURGICAL ORDERABLES * CULTURE URINE (12/09/2019 5:02 PM CDT) Only the most recent of4 resultswithin the time period is included. [facility] Culture Urine >100,000 CFU/mL urogenital gloria RENZO 12/11/2019 6:44 AM CDT [facility] Urine URINE SPECIMEN OBTAINED BY CLEAN CATCH PROCEDURE / Unknown Collection / Unknown 12/09/2019 5:02 PM CDT 12/09/2019 5:34 PM CDT Eileen Nice APRN-SENIOR COST ANALYST LAB - MICROBI OLOGY ORDERABLES [facility] [address] [place] [address], [facility] [phone] * URINALYSIS AUTO - POINT OF CARE (AMB) [facility] (12/09/2019 10:30 AM CDT) Only the most recent of2 resultswithin the time period is included. Glucose UA neg Bilirubin UA POCT neg Ketones UA POCT neg Specific [place] UA 1.030 Blood Urine POCT 200 pH UA 6.0 Protein UA 100 Urobilinogen UA 0.2 Nitrite UA pos WBC UA 500 Urine URINE / Unknown 12/09/2019 1 0:30 AM CDT Eileen Nice BUILDING SERVICEMAN-SENIOR COST ANALYST LAB - POINT O F CARE ORDERABLES * CARDIAC EKG ORDER (12/03/2019 7:52 AM CDT) Only the most recent of3 resultswithin the time period is included. Narrative 12/03/2019 7:52 AM CDT Ordered by an unspecified provider. Scanned Document CARDIAC SERVICES ORD ERABLES * MI MSR PVR U&/BLADD CAPCTY US NON (05/13/2019 9:52 AM FLEXIBLE NANNY) Narrative Selin Daly LPN - 05/13/2019 9:52 AM FLEXIBLE NANNY Selin Daly LPN ? 05/19/2019 12:46 PM Bladder scan completed post pt void with 13mls noted in bladder at this time. Lidia Sanchez DO PROCEDURE/MINOR OCONNELL RGICAL ORDERABLES * CARDIAC RHYTHM STRIP ORDER (04/25/2019 5:00 PM FLEXIBLE NANNY) Only the most recent of2 resultswithin the time period is included. Narrative 04/25/2019 5:00 PM FLEXIBLE NANNY Ordered by an unspecified provider. Scanned Document CARDIAC SERVICES ORD ERABLES * CBC W/O DIFFERENTIAL (04/23/2019 3:38 PM FLEXIBLE NANNY) Only the most recent of2 resultswithin the time period is included. WBC 4.8 4.4 - 10.7 x10E9/L 04/23/2019 4:02 PM FLEXIBLE NANNY [facility] RBC 4.44 3.80 - 5.40 x10E12/L 04/23/2019 4:02 PM FLEXIBLE NANNY [facility] Hemoglobin 12.3 12.0 - 17.6 gm/dL 04/23/2019 4:02 PM FLEXIBLE NANNY [facility] Hematocrit 39.2 35.2 - 51.7 % 04/23/2019 4:02 PM FLEXIBLE NANNY [facility] MCV 88.3 80.7 - 98.3 fl 04/23/2019 4:02 PM [facility] MCH 27.7 26.7 - 34.0 pg 04/23/2019 4:02 PM [facility] MCHC 31.4 30.8 - 35.9 gm/dL 04/23/2019 4:02 PM [facility] Platelet Count 232 153 - 416 x10E9/L 04/23/2019 4:02 PM [facility] RDW-CV 14.2 12.1 - 14.9 % 04/23/2019 4:02 PM [facility] MPV 9.8 9.4 - 12.9 fl 04/23/2019 4:02 PM [facility] Blood BLOOD SPECIMEN / Unknown Venipuncture / Unknown 04/23/2019 3:38 PM FLEXIBLE NANNY 04/23/2019 3:50 PM FLEXIBLE NANNY Anirudh Paulino MD LAB - HEMATOLOGY ORD ERABLES [facility] [address] [place] [address] * (ABNORMAL) BASIC METABOLIC PANEL (CALCIUM TOTAL) (04/23/2019 3:38 PM FLEXIBLE NANNY) Only the most recent of5 resultswithin the time period is included. Glucose 93 70 - 105 mg/dL 04/23/2019 4:10 PM [facility] Sodium 138 136 - 145 mmol/L 04/23/2019 4:10 PM [facility] Potassium 5.7(H) 3.5 - 4.7 mmol/L 04/23/2019 4:10 PM [facility] Chloride 105 98 - 107 mmol/L 04/23/2019 4:10 PM [facility] CO2 24 23 - 31 mmol/L 04/23/2019 4:10 PM [facility] Calcium 9.3 8.4 - 10.4 mg/dL 04/23/2019 4:10 PM [facility] Anion Gap 9 8 - 16 mmol/L 04/23/2019 4:10 PM [facility] BUN 16 8.4 - 25.7 mg/dL 04/23/2019 4:10 PM [facility] Creatinine 0.97 0.72 - 1.25 mg/dL 04/23/2019 4:10 PM [facility] eGFR by MDRD >60 >60 mL/min/1.7 3m2 04/23/2019 4:10 PM FLEXIBLE NANNY [facility] eGFR by MDRD >60 >60 mL/min/1.7 3m2 04/23/2019 4:10 PM FLEXIBLE NANNY [facility] Blood BLOOD SPECIMEN / Unknown Venipuncture / Unknown 04/23/2019 3:38 PM FLEXIBLE NANNY 04/23/2019 3:50 PM FLEXIBLE NANNY Anirudh Paulino MD LAB - CHEMISTRY LALITHA SOL [facility] [address] [place] [address] * GROSS + MICRO EXAM (STL) (04/23/2019 2:25 PM FLEXIBLE NANNY) Case Report Surgical Pathology Report ? Case: [id number] ? Authorizing Provider: ??Lidia Sanchez, DO ?Collected: ? 04/23/2019 02:25 PM ? Ordering Location: ? [facility] ? Received: ?04/24/2019 05:42 AM ? Pathologist: ? Sigrid Hardin MD ? Specimen: ?Prostate Chips ? 04/28/2019 9:35 AM [facility] Final Diagnosis 1. Prostate chips, TURP: -- Nodular stromal and epithelial hyperplasia AQ/scs 04/28/2019 9:35 AM [facility] Clinical History 58-year-old male. The patient underwent transurethral resection of the prostate. 04/28/2019 9:35 AM [facility] Gross Description The requisition and specimen labels are identified with the patient's name, Jn Garay. Received in formalin, specimen A, prostate chips, are 7 g of firm brown-aldridge tissue fragments with an aggregate measurement of 3.5 x 3.0 x 0.6 cm, ranging in greatest dimension from 0.2 to 1.5 cm, which are entirely submitted in cassettes A1 through A3. TF/me 04/28/2019 9:35 AM [facility] Microscopic Description Microscopic examination substantiates the final diagnosis. AQ/scs 04/28/2019 9:35 AM [facility] Disclaimer All histochemical and/or immunohistochemical results are interpreted with controls that demonstrate appropriate staining reactions before reporting results. Note on use of immunocytochemistry reagents: This test was developed and its performance characteristic determined by [facility], Department of Laboratory Medicine. It has not been cleared or approved by the U.S. Food and Drug Administration (FDA). The FDA has determined that such clearance or approval is not necessary. The test is used for clinical purpose. It should not be regarded as investigational or for research. This laboratory is certified to perform high complexity testing. 04/28/2019 9:35 AM [facility] Embedded Images 04/28/2019 9:35 AM [facility] Pathology/Cytolo gy SPECIMEN FROM PROSTATE OBTAINED BY TRANSURETHRAL RESECTION / Unknown 04/23/2019 2:25 PM FLEXIBLE NANNY 04/24/2019 5:42 AM FLEXIBLE NANNY Comment:Pre-op diagnosis: Diagnosis unknown [R69] Lidia Sanchez DO LAB - PATHOLOGY/CY TOLOGY ORDERABLES [facility] [address] [place] [address] * Neuraxial Block (04/23/2019 2:02 PM FLEXIBLE NANNY) Narrative Kevan Hagan APRN-CRNA - 04/23/2019 2:02 PM FLEXIBLE NANNY Kevan Hagan APRN-CRNA ? 04/23/2019 ??2:04 PM Neuraxial Block Note ?? Pre-Procedure: ?? Procedure Name: ??Neuraxial Block Patient Location: ??Holding Area Indications: ??at surgeon's request, procedure for pain, at patient's request and surgical anesthesia Pre-Anesthetic Checklist: ??Patient identified, IV Checked, Risks and benefits discussed, Surgical consent verified, Monitors and equipment, Site examined, Pre-op evaluation done, Time-out performed, Informed consent obtained, Questions answered/anesthesia questions answered and Allergies reviewed Anticoagulation/ Anti-thrombosis status confirmed? ??Yes Monitors: ??BP and continuous pluse ox Patient Condition: ??awake Patient Sedated? ??Yes ? Sedation Agents: ??fentaNYL (PF) (SUBLIMAZE) injection, 50 mcg midazolam (VERSED) injection, 2 mg Procedure: ?? Block Type: ??Spinal Prep: ??Betadine Sterile Field: ??mask, cap/hat, sterile established and sterile gloves Approach: ??midline Skin was localized? ??Yes Skin localized with: lidocaine (XYLOCAINE) 1 % injection, 3 mL Spinal Block: ?? Needle Type: ??pencil-point Needle Gauge: ??24 Needle Length: ??90 mm Placement Site: ??L2-3 Number of Attempts: ??2 CSF: ??free flow, ?? aspiration before injection, ?? aspiration during injection, ?? aspiration after injection Local anesthetics used? ??Yes Spinal local anesthetics/Additives: ??bupivacaine 0.75 % in dextrose (SENSORCAINE) injection, 12 mg EPINEPHrine (VIAL/AMPULE) 1 MG/ML injection, 0.05 mg Degree of difficulty: ??none Procedure Tolerance: ??tolerated well Sensory Level: ??T10 Motor Blockade: ??Yes Position post procedure: ??sitting (for a couple mins) Start Time: ??04/23/2019 1:31 PM End Time: ??04/23/2019 1:36 PM Total Time: ??5 Staff: ?? Anesthesia Provider: ??Kevan Hagan APRN-CRNA ?? - ?? performed the procedure Dany Altamirano MD GENERAL ANESTHESIA ORDERABLES * PT PTT PANEL (04/21/2019 7:21 AM [facility]) PT 10.0 9.5 - 11.6 sec 04/21/2019 8:25 AM [facility] INR 0.9 0.9 - 1.1 04/21/2019 8:25 AM [facility] PTT 24.8 21.0 - 32.0 sec 04/21/2019 8:25 AM [facility] Blood BLOOD SPECIMEN / Unknown Venipuncture / Unknown 04/21/2019 7:21 AM FLEXIBLE NANNY 04/21/2019 8:04 AM [facility] - 04/21/2019 8:25 AM [facility] Conventional Warfarin Anticoagulant Therapy: INR Reference Range: ??2.0-3.0 Intensive Warfarin Anticoagulant Therapy: INR Reference Range: ? 2.5-3.5 Heparin Therapeutic Range for PTT: 50.5 - 74.3 seconds. Lidia Sanchez DO LAB - COAGULATION ORDERABLES [facility] [address] [place] [address] * CBC W AUTO DIFFERENTIAL (04/21/2019 7:21 AM [facility]) Only the most recent of4 resultswithin the time period is included. WBC 6.3 4.4 - 10.7 x10E9/L 04/21/2019 8:16 AM [facility] WBC Corrected 04/21/2019 8:16 AM [facility] RBC 5.05 3.80 - 5.40 x10E12/L 04/21/2019 8:16 AM [facility] Hemoglobin 14.1 12.0 - 17.6 gm/dL 04/21/2019 8:16 AM [facility] Hematocrit 44.8 35.2 - 51.7 % 04/21/2019 8:16 AM [facility] MCV 88.7 80.7 - 98.3 fl 04/21/2019 8:16 AM [facility] MCH 27.9 26.7 - 34.0 pg 04/21/2019 8:16 AM [facility] MCHC 31.5 30.8 - 35.9 gm/dL 04/21/2019 8:16 AM [facility] Platelet Count 286 153 - 416 x10E9/L 04/21/2019 8:16 AM [facility] RDW-CV 14.3 12.1 - 14.9 % 04/21/2019 8:16 AM [facility] MPV 9.9 9.4 - 12.9 fl 04/21/2019 8:16 AM [facility] [facility] Neutrophils % 59.9 44.0 - 73.0 % 04/21/2019 8:16 AM [facility] Lymphocytes % 25.0 20.0 - 43.0 % 04/21/2019 8:16 AM [facility] Monocytes % 8.9 5.0 - 13.0 % 04/21/2019 8:16 AM [facility] Eosinophils % 5.1 0.0 - 6.0 % 04/21/2019 8:16 AM [facility] Basophils % 0.6 0.0 - 2.0 % 04/21/2019 8:16 AM [facility] Immature Granulocytes 0.5 0 - 1 % 04/21/2019 8:16 AM [facility] Neutrophil Absolute 3.76 2.01 - 7.14 x10E9/L 04/21/2019 8:16 AM [facility] Lymphocytes Absolute 1.57 1.07 - 3.94 x10E9/L 04/21/2019 8:16 AM [facility] Monocytes Absolute 0.56 0.26 - 1.07 x10E9/L 04/21/2019 8:16 AM [facility] Eosinophils Absolute 0.32 0 - 0.47 x10E9/L 04/21/2019 8:16 AM [facility] Basophils Absolute 0.04 0 - 0.08 x10E9/L 04/21/2019 8:16 AM [facility] Immature Granulocytes Absolute 0.03 0.00 - 0.06 x10E9/L 04/21/2019 8:16 AM [facility] nRBC Auto 0 /100 WBC 04/21/2019 8:16 AM [facility] Blood BLOOD SPECIMEN / Unknown Venipuncture / Unknown 04/21/2019 7:21 AM [facility] NANNY 04/21/2019 8:04 AM [facility] Lidia Sanchez DO LAB - HEMATOLOGY O RDERABLES [facility] [address] [place], [place] [id number] * PROC CATHETER CHANGE/INSERTION (04/14/2019 2:19 PM CDT) Narrative Ana Doll LPN - 04/14/2019 2:19 PM CDT Ana Doll LPN ? 04/14/2019 ??2:23 PM Catheter change, inserted with 16 kyrgyz Coude, with 10cc sterile water into ballon Iram Israel APRN-SENIOR COST ANALYST PROCEDURE/MINOR SURGICAL ORDERABLES * (ABNORMAL) URINALYSIS W/MICROSCOPIC NO CULTURE (03/21/2019 10:10 AM CDT) Color UA Cecile(A) Straw, Yellow, Colorless 03/21/2019 11:14 AM [facility] Clarity UA Cloudy(A) Clear, t Cloudy 03/21/2019 11:14 AM [facility] Specific Swatara UA 1.036(H) 1.005 - 1.030 03/21/2019 11:14 AM [facility] pH UA 5.0 5.0 - 8.0 pH 03/21/2019 11:14 AM [facility] Protein UA 2+(A) Negative mg/dL 03/21/2019 11:14 AM [facility] Glucose UA Negative Negative mg/dL 03/21/2019 11:14 AM [facility] Ketone UA Negative Negative mg/dL 03/21/2019 11:14 AM [facility] Bilirubin UA Negative Negative mg/dL 03/21/2019 11:14 AM [facility] Comment: Urine Bilirubin result confirmed by manual Ictotest. Blood UA 3+(A) Negative 03/21/2019 11:14 AM [facility] Nitrite UA Negative Negative 03/21/2019 11:14 AM [facility] Leukocyte Esterase Trace(A) Negative 03/21/2019 11:14 AM [facility] Urobilinogen UA Negative Negative mg/dL 03/21/2019 11:14 AM [facility] RBC UA >100(A) None Seen, 0-2, 3-5 /HPF 03/21/2019 11:14 AM [facility] WBC UA 21-50(A) None Seen, 0-5 /HPF 03/21/2019 11:14 AM [facility] Bacteria UA 3+(A) None, Trace /HPF 03/21/2019 11:14 AM [facility] Squamous Epithelial Cells UA None Seen None Seen, 0-2 /HPF 03/21/2019 11:14 AM [facility] Renal Epithelial Cells UA 0-2 None Seen, 0-2 /HPF 03/21/2019 11:14 AM [facility] Mucus UA 2+(A) None, 1+ /LPF 03/21/2019 11:14 AM [facility] Hyaline Casts UA >20(A) None Seen, 0-2 /LPF 03/21/2019 11:14 AM [facility] Calcium Oxalate UA Rare Rare, Occasional, Few, None /HPF 03/21/2019 11:14 AM [facility] Amorphous Crystals Moderate Rare, Occasional, Few, Moderate, None /HPF 03/21/2019 11:14 AM [facility] Urine URINE SPECIMEN OBTAINED BY CLEAN CATCH PROCEDURE / Unknown Collection / Unknown 03/21/2019 10:10 AM CDT 03/21/2019 10:23 AM CDT Narrative [facility] - 03/21/2019 11:14 AM CDT Lidia Sanchez DO LAB - URINALYSIS O RDERABLES [facility] [address] [phone] * (ABNORMAL) PTT [facility] (03/21/2019 10:09 AM CDT) APTT 45.7(H) 23.0 - 38.4 Seconds 03/21/2019 10:55 AM [facility] Comment: * Please Note: New therapeutic range for heparin therapy. * Suggested therapeutic range for full dose I.V. heparin therapy for venous thromboembolism is 65 to 103 seconds. Blood BLOOD SPECIMEN / Unknown Lab Venipuncture / Unknown 03/21/2019 10:09 AM CDT 03/21/2019 10:23 AM CDT Lidia Sanchez LAB - COAGULATION ORDERABLES Performing Organization Address [facility] Co de Phone Number [address] [phone] * (ABNORMAL) PT-INR [facility] (03/21/2019 10:09 AM CDT) PT 21.3(H) 12.1 - 14.8 Seconds 03/21/2019 10:54 AM CDT [facility] INR 2.0 See Comment 03/21/2019 10:54 AM T [facility] Comment: The suggested therapeutic range for standard coumadin (warfarin) therapy is an INR of 2.0-3.0. For high-risk patients (Mechanical Mitral Valve Prosthesis, etc.), the suggested prophylactic therapeutic range is an INR of 2.5-3.5. Blood BLOOD SPECIMEN / Unknown Lab Venipuncture / Unknown 03/21/2019 10:09 AM CDT 03/21/2019 10:23 AM CDT Lidia Ahujaardo LAB - COAGULATION ORDERABLES Performing Organization Address [facility]/ZIP Co de Phone Number [address] [phone] * EKG 12-LEAD (03/21/2019 9:55 AM CDT) Only the most recent of2 resultswithin the time period is included. Ventricular Rate 97 BPM [facility] Atrial Rate 97 BPM [facility] MUSE P-R Interval 138 ms [facility] QRS Duration ms 74 ms [facility] Q-T Interval ms 342 ms [facility] MUSE QTC Calculation (Bezet) 434 ms [facility] Calculated P [place] 66 degrees [facility] Calculated R [place] 58 degrees [facility] Calculated T [place] 52 degrees [facility] Interpretation EKG ARTIFACT PRESENT SINUS RHYTHM WITH PREMATURE SUPRAVENTRICULAR COMPLEXES NONSPECIFIC ST AND T WAVE ABNORMALITY ABNORMAL ECG WHEN COMPARED WITH ECG OF 29-AUG-2018 14:30, ARTIFACT IS PRESENT NOW Confirmed by Baljinder Gonzales ([id number]), editor news GURDEEP MARIE ([id number]) on 05/09/2019 11:55:10 AM [facility] MUSE 03/21/2019 9:55 AM CDT 05/09/2019 11:55 AM [facility] An Garrett DO ECG ORDERABLES [facility] * ECHO HEIDI TRANSESOPHAGEAL (03/07/2019 11:14 AM CDT) Anatomical Region Laterality Modality Echo 03/07/2019 10:0 2 AM CDT Narrative Procedure Note Edna Murphy MD - 03/07/2019 Edilma Parson MD ECHOCARDIOGRAPHY RAD IANT * MI CYSTOURETHROSCOPY (02/25/2019 11:45 AM CDT) Narrative Eileen Nice APRN-CNP - 02/25/2019 11:45 AM CDT Eileen Nice APRN-CNP ? 02/25/2019 12:11 PM Cystoscopy procedure note Indication for Procedure: urinary retention Description: Pt placed on the procedure table in ??The supine/lithotomy position. he ??was prepped/draped in standard fashion. ??Pt correctly identified and time out performed. ??A flexible cystoscope was introduced per urethra withthe following findings. Urethra: ??Normal caliber, no stricture. ??No masses. ??Urethral sphincter with good coaptation Prostate - positive prostatic hyperplasia present, bilateral kissing lobes Verumontanum in normal position Bladder neck patent without contracture Trigone - UO's orthotopic bilaterally. ??Clear efflux seen from both ureteral orifices. Inflamed Mucosa due to chavira Bladder - normal mucosa without tumor/stone/erythema. ?? + mild trabeculation. ??No cellules or diverticula. ??No fistula. ??Scope was retroflexed to assess entire surface of bladder, mild and protrusion into the bladder. IMPRESSION: ??enlarged prostate PLAN: follow up with Dr. Sanchez for TURP, discussed today risks and benefits of the surgery. BARBARA Reyes Eileen Nice APRN-MARK PROCEDURE/MIN OR SURGICAL ORDERABLES * PROC UROFLOWMETRY (02/19/2019 12:18 PM CDT) Narrative Ana Doll LPN - 02/19/2019 12:18 PM CDT Ana Doll LPN ? 02/19/2019 12:20 PM Voiding trial - 300ml sterile water insterted, no urine return. Inserted 16 kyrgyz Coude Catheter without any difficulties, clear yellow urine present 400ml output Eileen JIMENEZ PROCEDURE/MIN OR SURGICAL ORDERABLES * MRI CARDIAC STUDY WWO CONTRAST (12/24/2018 12:42 PM CDT) Anatomical Region Laterality Modality Magnetic Resonan ce 12/24/2018 3:14 PM CDT Impressions 12/27/2018 2:20 PM CDT IMPRESSION: 1. 1.9 x 2.3 x 2.8 cm mass attached to the anterior wall the left atrium without significant contrast enhancement consistent with an atrial myxoma. 2. 1.4 x 2.2 cm lesion in the right lung which likely corresponds to patient's known non-small cell lung carcinoma. Report dictated by Negrito Giron DO (radiology services manager). I, Dr. KEVAN ROACH M.D. have personally reviewed and interpreted this examination/study. This report was electronically signed by KEVAN ROACH M.D. ??on 12/27/2018 2:20 PM . Narrative 12/27/2018 2:20 PM CDT EXAMINATION: Magnetic resonance imaging (MRI) cardiac morphology before and after the administration of 40 mL MultiHance intravenous contrast DATE: 12/24/2018 HISTORY: Patient with history of non-small cell lung cancer and left atrial mass diagnosed on transesophageal echocardiography dated 03/01/2018. This atrial mass demonstrated some increased activity on PET/CT in July 2018 and was diagnosed as an atrial myxoma. TECHNIQUE: Multiplanar MR imaging of the heart utilizing HASTE and TRUFISP imaging sequences was performed before and after the administration of intravenous gadolinium contrast agent according to a custom protocol monitored by the radiologist. Estimated GFR: 60 mL/min/1.73 meter square Creatinine: 0.98 mg/dL Contrast: 40 mL Height: 72 in, weight: 175 lb, BSA 2.01 meter square FINDINGS: Morphology: The aorta and pulmonary artery are normal in course and caliber. The left ventricle is normal in size and function. No focal wall motion abnormality is seen in the left ventricle. The right ventricle is normal in size and function. No focal wall motion abnormality is seen in the right ventricle. No atrial septal defect or ventricular septal defect is seen. There is a 1.9 x 2.3 x 2.8 cm mass with a frond-like appearance, attached to the anterior wall of the left atrium (series 39 image 43 and series 27 image 19). On first pass perfusion sequences, this mass appears avascular with homogenous low intensity on every phase. On long inversion time of early enhancement phase sequences. The mass is homogenously hypointense without evidence of contrast enhancement. On late phase imaging, the mass remains of low intensity without evidence of significant enhancement. There is no pericardial effusion. Valves: The aortic, pulmonic, mitral, and tricuspid valves are normal. Noncardiac findings: A 1.4 x 2.2 cm lesion is identified in the right lung which likely corresponds to patient's known non-small cell lung carcinoma. No pleural effusion is identified. The visible bony thorax demonstrates no abnormal bone marrow signal. No enlarged mediastinal lymph nodes are identified. The visible portions of the abdominal viscera are unremarkable Procedure Note Kevan Roach MD - 12/27/2018 EXAMINATION: Magnetic resonance imaging (MRI) cardiac morphology before and after the administration of 40 mL MultiHance intravenous contrast DATE: 12/24/2018 HISTORY: Patient with history of non-small cell lung cancer and left atrial mass diagnosed on transesophageal echocardiography dated03/01/2018. This atrial mass demonstrated some increased activity on PET/CT in July 2018 and was diagnosed as an atrial myxoma. TECHNIQUE: Multiplanar MR imaging of the heart utilizing HASTE andTRUFISP imaging sequences was performed before and after the administration of intravenous gadolinium contrast agent according to a custom protocol monitored by the radiologist. Estimated GFR: 60 mL/min/1.73 meter square Creatinine: 0.98 mg/dL Contrast: 40 mL Height: 72 in, weight: 175 lb, BSA 2.01 meter square FINDINGS: Morphology: The aorta and pulmonary artery are normal in course and caliber. The left ventricle is normal in size and function. No focalwall motion abnormality is seen in the left ventricle. The right ventricle is normal in size and function. No focal wall motion abnormality is seen in the right ventricle. No atrial septal defect or ventricular septaldefect is seen. There is a 1.9 x 2.3 x 2.8 cm mass with a frond-likeappearance, attached to the anterior wall of the left atrium (series 39 image 43 and series 27 image 19). On first pass perfusion sequences, this massappears avascular with homogenous low intensity on every phase. On longinversion time of early enhancement phase sequences. The mass is homogenously hypointense without evidence of contrast enhancement. On late phase imaging, the mass remains of low intensity without evidence ofsignificant enhancement. There is no pericardial effusion. Valves: The aortic, pulmonic, mitral, and tricuspid valves are normal. Noncardiac findings: A 1.4 x 2.2 cm lesion is identified in the right lung which likely corresponds to patient's known non-small cell lung carcinoma. No pleural effusion is identified. The visible bony thorax demonstrates no abnormal bone marrow signal. No enlarged mediastinal lymph nodes are identified. The visible portions of the abdominal viscera are unremarkable IMPRESSION: 1. 1.9 x 2.3 x 2.8 cm mass attached to the anterior wall the left atrium without significant contrast enhancement consistent with an atrialmyxoma. 2. 1.4 x 2.2 cm lesion in the right lung which likely corresponds to patient's known non-small cell lung carcinoma. Report dictated by Negrito Giron DO (radiology services manager). I, Dr. KEVAN ROACH M.D. have personally reviewed and interpreted this examination/study. This report was electronically signed by KEVAN ROACH M.D. on12/27/2018 2:20 PM . Edilma Parson MD MR ORDERABLES * CREATININE BLOOD - POCT (IP) [facility] (12/24/2018 11:38 AM CDT) Creatinine POCT 0.98 0.3 - 1.3 mg/dL [facility] POCT TESTING eGFR POCT 60 60 ml/min [facility]CT TEST[facility] Blood BLOOD SPECIMEN / Unknown 12/24/2018 11:38 AM CDT Edlima Parson MD LAB - POINT OF CARE ORDERABLES [facility] POCT TESTING [address] [phone] * PROC EKG IN CLINIC (11/04/2018 12:31 PM CDT) Narrative Caity Wallace DO - 11/04/2018 12:31 PM CDT Caity Wallace, DO ? 11/04/2018 12:31 PM Normal sinus rhythm Edilma Parson MD ECG ORDERABLES * CARDIAC PROCEDURE ORDER (10/15/2018 6:32 PM CDT) Narrative 10/15/2018 6:32 PM CDT Ordered by an unspecified provider. Scanned Document CARDIAC SERVICES ORD ERABLES * EP LAB ORDER FOR DICTATION (10/12/2018 5:11 PM CDT) Narrative [facility] - 10/12/2018 5:11 PM CDT Tom Marquez MD ? 10/12/2018 ??5:11 PM ??Electrophysiologic Study and Radiofrequency Ablation ??Date of Procedure: ??10/09/2018 ??Negative Restorer: ?Tom Marquez MD ??Procedures Performed: ?1. Comprehensive electrophysiologic study with coronary sinus pacing/recording (10576). ??2. CARTO 3D electroanatomical mapping (89538). ??3. Radiofrequency ablation of cavotricuspid isthmus for treatment of typical atrial flutter (45087). ??5. Comprehensive electrophysiologic follow-up study (following isoproterenol infusion) (20428). ??History of Present Illness: ??Jn Garay??is a very friendly 58 year old??with RUL non-small cell lung carcinoma, left atrial myxoma, COPD. ??In February 2018, Mr. Garay developed a wide complex tachycardia with rate of roughly 275 bpm. ??The tachycardia developed in the setting of COPD exacerbation, after using a albuterol MDI multiple times. ??Mr. Garay was defibrillated by EMS three times. ??Based on the strips Mr. Garay provided, it appears defibrillation successfully converted him into sinus rhythm, but he quickly converted back into wide complex tachycardia. ??After the third cardioversion, Mr. Garay remained in sinus rhythm. ??During the subsequent hospitalization, Mr. Garay's cardiac catheterization demonstrated no obstructive CAD and his echocardiogram demonstrated normal left ventricular systolic function. ??Mr. Garay presents for electrophysiologic study and ablation. ??He will require resection of the RUL non-small cell carcinoma in the upcoming weeks. ??Medications: ??The patient received moderate sedation provided by anesthesiology. ??Forty milliliters of 1% lidocaine was administered subcutaneously to provide local anesthesia. ?? Isoproterenol was utilized at doses titrated up to 2 mcg/min for arrhythmia induction. ??Description of Procedure: ??The risks and benefits of electrophysiologic study and radiofrequency ablation were discussed with Jn Garay. ?? The risks include and are not limited to , stroke, heart attack, permanent disability, cardiac surgery, perforation, pericardial effusion, heart block requiring pacemaker implantation, renal failure, vascular injury requiring surgery, and hemorrhage requiring transfusion. ??Alternatives to electrophysiologic study and ablation were also discussed. ??These alternatives include continued medical management of his arrhythmia. ??Time was allotted for questions to be asked, all questions were answered, and Jn Garay gave informed consent to proceed with the procedure. ??The patient presented to the electrophysiology laboratory in a fasting, non-sedated state. The patient was prepped and draped in the usual sterile fashion for electrophysiology study. ??One percent lidocaine was administered to the skin and subcutaneous tissue in the bilateral femoral venous area. ??Using a modified Seldinger technique, the right common femoral vein was accessed and cannulated with a 6-Fr and 8-Fr vascular sheath without difficulty. ??Subsequently, the left common femoral vein was cannulated with a 6-Fr and 7-Fr vascular sheath without difficulty. ??Baseline Comprehensive Electrophysiologic Study: ??Through a 7-Fr sheath, using fluoroscopic guidance, a [employer]obe[employer] deflectable decapolar catheter was advanced to the lateral coronary sinus. ??Through a 8-Fr sheath, a [employer] quadripolar catheter was advanced to the right ventricular apex. ??Through a 6-Fr sheath, a deflectable quadripolar catheter was advanced to the His bundle region. ??Through a 6-Fr sheath, a [employer] quadripolar catheter was advanced to the high right atrium. ?? Pacing maneuvers, including incremental pacing, burst pacing, and programmed extra-stimuli, were performed for the purpose of comprehensive electrophysiologic study and arrhythmia induction. ?Mr. Garay presented in sinus rhythm with a baseline cycle length of 890 ms; MI 170 ms; QRS 85 ms; QT 410 ms; HV 41 ms; AH 90 ms. ??At baseline, Mr. Garay did not have any evidence of pre-excitation or bundle branch block. ??During Para-Hisian pacing, retrograde VA conduction was concentric and a yamilka response was demonstrated. ??During decremental pacing from the right ventricular apex, retrograde VA conduction was concentric and decremental. ??VA Wenckebach conduction was present at 320 msec. ?During single atrial programmed extra-stimuli from the coronary sinus ostium, dual AV yamilka pathway physiology was NOT present. ?? The AV yamilka fast pathway ERP was 600/330 ms and 450/350 msec. ??During decremental pacing from the coronary sinus ostium, AV yamilka Wenckebach conduction was supra-Hisian and occurred at 400 msec and 2:1 AV conduction occurred at 350 msec. ?During single ventricular programmed extra-stimuli from the right ventricular apex, the ventricular ERP was 600/210 msec and 400/200 (the AV yamilka fast pathway retrograde ERP was < 600/210 and < 400/200 msec) ??Subsequently, I spent an extensive amount of time performing ventricular programmed extra-stimuli from the right ventricular apex in an attempt to induce ventricular tachycardia. ??During single ventricular programmed extra-stimuli from the right ventricular apex, at a pacing cycle length of 600 msec, the ventricular ERP was 210 msec. ??During single ventricular programmed extra-stimuli from the right ventricular apex, at a pacing cycle length of 400 msec, the ventricular ERP was 200 msec. ??I performed extensive and aggressive triple ventricular extra-stimuli from the right ventricular apex in an attempt to induce ventricular tachycardia. ??At a pacing cycle length of 600 msec and with triple ventricle extra-stimuli with coupling intervals as close as 230/210/210 msec, I did not induce more than 2-3 beats of nonsustained polymorphic ventricular tachycardia. ??At a pacing cycle length of 400 msec and with triple ventricle extra-stimuli with coupling intervals as close as 210/210/200 msec, I did not induce more than 2-3 beats of nonsustained polymorphic ventricular tachycardia. ??During burst pacing from the coronary sinus ostium at 220 to 200 ms, I did repeatedly induce sustained and nonsustained episodes of atrial flutter. ??The atrial flutter had a proximal to distal activation sequence on the coronary sinus catheter and a cycle length of 215 ms. ??Isoproterenol was initiated for arrhythmia induction and titrated up to 3 mcg/min. ??During maximal isoproterenol provocation, the sinus cycle length was 632 ms. ?Again, I spent an extensive amount of time performing ventricular programmed extra-stimuli from the right ventricular apex in an attempt to induce ventricular tachycardia. ??At a pacing cycle length of 500 msec and with triple ventricle extra-stimuli with coupling intervals as close as 220/190/190 msec, I did not induce more than 2-3 beats of nonsustained polymorphic ventricular tachycardia. ??At a pacing cycle length of 400 msec and with triple ventricle extra-stimuli with coupling intervals as close as 220/190/190 msec, I did not induce more than 2-3 beats of nonsustained polymorphic ventricular tachycardia. ?Again, during burst pacing from the coronary sinus ostium at 220 to 200 ms, I again repeatedly induce sustained and nonsustained episodes of atrial flutter. ??The atrial flutter had a proximal to distal activation sequence on the coronary sinus catheter and a cycle length of roughly 215 ms. ??The atrial flutter demonstrated 2:1 AV conduction. ??Repeatedly, the atrial flutter terminated before it could be mapped. ??At this point the isoproterenol was turned off. ?Using CARTO 3D electroanatomical mapping system and a power of 30 Chapman, I created a linear ablation lesion across the 6 o'clock aspect of the cavotricuspid isthmus from the tricuspid valve annulus to the IVC. ??The atrial flutter terminated during ablation. ??At the conclusion of the procedure, 20 minutes after the last radiofrequency ablation lesion, bidirectional block was present across the cavotricuspid isthmus as demonstrated by differential pacing and transisthmus conduction time (155 msec bidirectionally). ??All catheters and sheaths were removed in the electrophysiology laboratory and hemostasis was achieved following 20 minutes of manual pressure. ??The patient tolerated the procedure well and there were no complications during the procedure. ??Impression: ??1. ??Sustained ventricular tachycardia was not inducible. ??2. ??Successful cavotricuspid isthmus ablation for treatment of typical atrial flutter. ??3. ??Normal His-Purkinje conduction. ??Plan: ??1. ??From an electrophysiologic standpoint, Mr. Garay may proceed with thoracic surgery. ??The attending physician was physically present throughout the entire duration of the procedure. Tom Marquez MD [facility]OLOGY [facility]ABLES [facility] * EP LAB CONSULT (10/12/2018 5:11 PM CDT) Narrative [facility] - 10/12/2018 5:11 PM CDT Tom Marquez MD ? 10/12/2018 ??5:11 PM ??Electrophysiologic Study and Radiofrequency Ablation ??Date of Procedure: ??10/09/2018 ??Negative Restorer: ?Tom Marquez MD ??Procedures Performed: ?1. Comprehensive electrophysiologic study with coronary sinus pacing/recording (40886). ??2. CARTO 3D electroanatomical mapping (04203). ??3. Radiofrequency ablation of cavotricuspid isthmus for treatment of typical atrial flutter (55981). ??5. Comprehensive electrophysiologic follow-up study (following isoproterenol infusion) (07430). ??History of Present Illness: ??Jn Garay??is a very friendly 58 year old??with RUL non-small cell lung carcinoma, left atrial myxoma, COPD. ??In February 2018, Mr. Garay developed a wide complex tachycardia with rate of roughly 275 bpm. ??The tachycardia developed in the setting of COPD exacerbation, after using a albuterol MDI multiple times. ??Mr. Garay was defibrillated by EMS three times. ??Based on the strips Mr. Garay provided, it appears defibrillation successfully converted him into sinus rhythm, but he quickly converted back into wide complex tachycardia. ??After the third cardioversion, Mr. Garay remained in sinus rhythm. ??During the subsequent hospitalization, Mr. Garay's cardiac catheterization demonstrated no obstructive CAD and his echocardiogram demonstrated normal left ventricular systolic function. ??Mr. Garay presents for electrophysiologic study and ablation. ??He will require resection of the RUL non-small cell carcinoma in the upcoming weeks. ??Medications: ??The patient received moderate sedation provided by anesthesiology. ??Forty milliliters of 1% lidocaine was administered subcutaneously to provide local anesthesia. ?? Isoproterenol was utilized at doses titrated up to 2 mcg/min for arrhythmia induction. ??Description of Procedure: ??The risks and benefits of electrophysiologic study and radiofrequency ablation were discussed with Jn Garay. ?? The risks include and are not limited to , stroke, heart attack, permanent disability, cardiac surgery, perforation, pericardial effusion, heart block requiring pacemaker implantation, renal failure, vascular injury requiring surgery, and hemorrhage requiring transfusion. ??Alternatives to electrophysiologic study and ablation were also discussed. ??These alternatives include continued medical management of his arrhythmia. ??Time was allotted for questions to be asked, all questions were answered, and Jn Garay gave informed consent to proceed with the procedure. ??The patient presented to the electrophysiology laboratory in a fasting, non-sedated state. The patient was prepped and draped in the usual sterile fashion for electrophysiology study. ??One percent lidocaine was administered to the skin and subcutaneous tissue in the bilateral femoral venous area. ??Using a modified Seldinger technique, the right common femoral vein was accessed and cannulated with a 6-Fr and 8-Fr vascular sheath without difficulty. ??Subsequently, the left common femoral vein was cannulated with a 6-Fr and 7-Fr vascular sheath without difficulty. ??Baseline Comprehensive Electrophysiologic Study: ??Through a 7-Fr sheath, using fluoroscopic guidance, a [employer] deflectable decapolar catheter was advanced to the lateral coronary sinus. ??Through a 8-Fr sheath, a [employer] quadripolar catheter was advanced to the right ventricular apex. ??Through a 6-Fr sheath, a deflectable quadripolar catheter was advanced to the His bundle region. ??Through a 6-Fr sheath, a [employer] quadripolar catheter was advanced to the high right atrium. ?? Pacing maneuvers, including incremental pacing, burst pacing, and programmed extra-stimuli, were performed for the purpose of comprehensive electrophysiologic study and arrhythmia induction. ?Mr. Garay presented in sinus rhythm with a baseline cycle length of 890 ms; MI 170 ms; QRS 85 ms; QT 410 ms; HV 41 ms; AH 90 ms. ??At baseline, Mr. Garay did not have any evidence of pre-excitation or bundle branch block. ??During Para-Hisian pacing, retrograde VA conduction was concentric and a yamilka response was demonstrated. ??During decremental pacing from the right ventricular apex, retrograde VA conduction was concentric and decremental. ??VA Wenckebach conduction was present at 320 msec. ?During single atrial programmed extra-stimuli from the coronary sinus ostium, dual AV yamilka pathway physiology was NOT present. ?? The AV yamilka fast pathway ERP was 600/330 ms and 450/350 msec. ??During decremental pacing from the coronary sinus ostium, AV yamilka Wenckebach conduction was supra-Hisian and occurred at 400 msec and 2:1 AV conduction occurred at 350 msec. ?During single ventricular programmed extra-stimuli from the right ventricular apex, the ventricular ERP was 600/210 msec and 400/200 (the AV yamilka fast pathway retrograde ERP was < 600/210 and < 400/200 msec) ??Subsequently, I spent an extensive amount of time performing ventricular programmed extra-stimuli from the right ventricular apex in an attempt to induce ventricular tachycardia. ??During single ventricular programmed extra-stimuli from the right ventricular apex, at a pacing cycle length of 600 msec, the ventricular ERP was 210 msec. ??During single ventricular programmed extra-stimuli from the right ventricular apex, at a pacing cycle length of 400 msec, the ventricular ERP was 200 msec. ??I performed extensive and aggressive triple ventricular extra-stimuli from the right ventricular apex in an attempt to induce ventricular tachycardia. ??At a pacing cycle length of 600 msec and with triple ventricle extra-stimuli with coupling intervals as close as 230/210/210 msec, I did not induce more than 2-3 beats of nonsustained polymorphic ventricular tachycardia. ??At a pacing cycle length of 400 msec and with triple ventricle extra-stimuli with coupling intervals as close as 210/210/200 msec, I did not induce more than 2-3 beats of nonsustained polymorphic ventricular tachycardia. ??During burst pacing from the coronary sinus ostium at 220 to 200 ms, I did repeatedly induce sustained and nonsustained episodes of atrial flutter. ??The atrial flutter had a proximal to distal activation sequence on the coronary sinus catheter and a cycle length of 215 ms. ??Isoproterenol was initiated for arrhythmia induction and titrated up to 3 mcg/min. ??During maximal isoproterenol provocation, the sinus cycle length was 632 ms. ?Again, I spent an extensive amount of time performing ventricular programmed extra-stimuli from the right ventricular apex in an attempt to induce ventricular tachycardia. ??At a pacing cycle length of 500 msec and with triple ventricle extra-stimuli with coupling intervals as close as 220/190/190 msec, I did not induce more than 2-3 beats of nonsustained polymorphic ventricular tachycardia. ??At a pacing cycle length of 400 msec and with triple ventricle extra-stimuli with coupling intervals as close as 220/190/190 msec, I did not induce more than 2-3 beats of nonsustained polymorphic ventricular tachycardia. ?Again, during burst pacing from the coronary sinus ostium at 220 to 200 ms, I again repeatedly induce sustained and nonsustained episodes of atrial flutter. ??The atrial flutter had a proximal to distal activation sequence on the coronary sinus catheter and a cycle length of roughly 215 ms. ??The atrial flutter demonstrated 2:1 AV conduction. ??Repeatedly, the atrial flutter terminated before it could be mapped. ??At this point the isoproterenol was turned off. ?Using CARTO 3D electroanatomical mapping system and a power of 30 Chapman, I created a linear ablation lesion across the 6 o'clock aspect of the cavotricuspid isthmus from the tricuspid valve annulus to the IVC. ??The atrial flutter terminated during ablation. ??At the conclusion of the procedure, 20 minutes after the last radiofrequency ablation lesion, bidirectional block was present across the cavotricuspid isthmus as demonstrated by differential pacing and transisthmus conduction time (155 msec bidirectionally). ??All catheters and sheaths were removed in the electrophysiology laboratory and hemostasis was achieved following 20 minutes of manual pressure. ??The patient tolerated the procedure well and there were no complications during the procedure. ??Impression: ??1. ??Sustained ventricular tachycardia was not inducible. ??2. ??Successful cavotricuspid isthmus ablation for treatment of typical atrial flutter. ??3. ??Normal His-Purkinje conduction. ??Plan: ??1. ??From an electrophysiologic standpoint, Mr. Garay may proceed with thoracic surgery. ??The attending physician was physically present throughout the entire duration of the procedure. Tom Marquez MD ECHO ORDERABLES Performing Organization Address City/[facility]/ZIP Co de Phone Number [facility] * T4 FREE DIRECT REFLEXED (10/10/2018 3:59 AM CDT) T4 Free 1.07 0.65 - 1.34 ng/dL 10/10/2018 5:36 AM CDT [facility] Blood BLOOD SPECIMEN / Unknown Venipuncture / Unknown 10/10/2018 3:59 AM CDT 10/10/2018 4:17 AM CDT Tom Marquez MD LAB - CHEMISTRY O RDERABLES Performing Organization Address City/[facility]/ZIP Co de Phone Number [facility] [id number] [place] [phone] * (ABNORMAL) TSH REFLEX FREE T4 (10/10/2018 3:59 AM CDT) TSH 0.2540(L) 0.35 - 4.94 ulU/mL 10/10/2018 5:03 AM CDT [facility] Blood BLOOD SPECIMEN / Unknown Venipuncture / Unknown 10/10/2018 3:59 AM CDT 10/10/2018 4:17 AM CDT Tom Marquez MD LAB - CHEMISTRY O RDERABLES Performing Organization Address [facility] Co de Phone Number [facility] [address] [place] [address] * MAGNESIUM BLOOD (10/10/2018 3:59 AM CDT) Magnesium 1.9 1.6 - 2.6 mg/dL 10/10/2018 4:41 AM CDT [facility] Blood BLOOD SPECIMEN / Unknown Venipuncture / Unknown 10/10/2018 3:59 AM CDT 10/10/2018 4:17 AM CDT Tom Marquez MD LAB - CHEMISTRY O RDERABLES Performing Organization Address [facility] de Phone Number [facility] [address] [place] [address] * ENDOTRACHEAL TUBE NOTE (10/09/2018 1:20 PM CDT) Narrative Sanjiv Jean-Baptiste MD - 10/09/2018 1:20 PM CDT Dany Dunlap APRN-ABISAI ? 10/09/2018 12:46 PM Endotracheal Tube Placement: ? Patient Location: OR. Intubation Event Date/Time: ??10/09/2018 12:24 PM Procedure: intubation (90663). Procedure Section: ?? Sedation: under general anesthesia. Indications for Airway Management: ??anesthesia Pretreatment: 100% O2. Induction: standard IV and inhalation Patient Position: ??sniffing Mask Ventilation: easy with oral airway. Blade Type: Velazquez Blade Size: 3 Laryngoscopy View: grade 1 (full cords) Intubation Adjuncts: stylet Device: endotracheal tube Placement: oral Tube type: cuff - inflated Tube Size (MM): 8 Depth of Insertion (CM): 22 Measured From: lips Cuff volume (mL): ??10 Cuff Inflated With: air Number of Attempts: 1. Ventilation between attempts: Yes. Placement Verified By: direct visualization, bilateral breath sounds and CO2 monitor Tube secured with: ??adhesive tape. Difficult Airway? ??No. Procedure Start Time: 10/09/2018 12:24 PM. Staff Section ?? Anesthesia Provider: DANY DUNLAP, Performed the procedure Additional Comments: Ibfnqx-hevwnckkbx-THEO and LTA yrhzcurvn-dkbaciokvg-Yxwckyzcb-BBS=. Tube taped. Edu Albert DO GENERAL ANESTHESIA O RDERABLES * PT-INR (10/07/2018 8:25 AM CDT) INR 1.0 0.8 - 1.2 [facility] INSURANCE BILL Comment: ? Reference interval is for non-anticoagulated patients. ?. ? Suggested INR therapeutic range for Vitamin K ? antagonist therapy: ?Standard Dose (moderate intensity ? therapeutic range): ? 2.0 - 3.0 ?Higher intensity therapeutic range ? 2.5 - 3.5 PT 10.4 9.1 - 12.0 sec [employer] INSURANCE BILL Comment:FASTING Blood BLOOD SPECIMEN / Unknown 10/07/2018 8:25 AM CDT 10/07/2018 Narrative Resulting Agency Comment Lab Testing performed at: [facility] [address] [place] [address] ??On license of [facility] [phone] Tom Marquez MD LAB - COAGULATION ORDERABLES [facility] INSURANCE BILL [address] [place] [address] * BRONCHOSCOPY WITH ENDOSCOPIC BRONCHIAL ULTRASOUND (EBUS) (09/19/2018 9:31 PM CDT) Narrative Jm Agustin MD - 09/19/2018 9:31 PM CDT Jm Agustin MD ? 09/19/2018 ??9:31 PM Everardo Cota MD PROCEDURE/MINOR SURG ICAL ORDERABLES * FINE NEEDLE ASPIRATION (STL) (09/02/2018 2:48 PM CDT) Pathologist [facility] Case Report Medical Cytology Report ? Case: [id number] ? Authorizing Provider: ??Yuli Kirkpatrick MD ?Collected: ? 09/02/2018 02:48 PM ? Ordering Location: ? [facility] ? Received: ?09/03/2018 07:00 AM ? Pathologist: ? Ariel [place] MD ? Specimens: ?? A) - Lymph Node, 11R (EBUS) ? B) - Lymph Node, 4R (EBUS) ? C) - Lymph Node, Station 7 (EBUS) ? 09/05/2018 11:29 AM [facility] Specimen Adequacy Adequate cellularity for evaluation. 09/05/2018 11:29 AM [facility] Final Diagnosis Lymph node, 11R (A): - Insufficient tissue for evaluation Lymph node, 4R (B): - Insufficient tissue for evaluation Lymph node, station 7 (C): - Negative for malignancy - Lymphoid material 09/05/2018 11:29 AM [facility] Clinical History History of carcinoma 09/05/2018 11:29 AM [facility] Gross Description A. 1 cell-block from 35 ml collection fluid. B.1 cell -block from 30 ml collection fluid. C. 1 cell-block from 35 ml collection fluid. 09/05/2018 11:29 AM [facility] Microscopic Description (A): No tissue is present. (B): No tissue is present. (C): Review of cell block reveals small fragments of lymphoid material consisting primarily of small, mature lymphocytes. 09/05/2018 11:29 AM [facility] Disclaimer The performance characteristics of all immunohistochemical and indirect immunofluorescence stains (if any) cited in this report were determined by the Histopathology Laboratory of [facility]. Some of these tests rely on the use of analyte-specific reagents and are subject to specific labeling requirements by the US Food and Drug Administration. Such tests were developed by the Histology Laboratory of [facility] and have not been cleared or approved by the FDA. The FDA has determined that such clearance and approval is not necessary. These tests are used for clinical purposes and should not be regarded as investigational or for research. This laboratory is certified under the Clinical Laboratory Improvement Amendments (CLIA) as qualified to perform high complexity clinical laboratory testing. This case has been personally reviewed and interpreted by the attending (teaching) pathologist. 09/05/2018 11:29 AM CDT [facility] Embedded Images 09/05/2018 11:29 AM CDT [facility] Pathology/Cytology ENTIRE LYMPH NODE / Unknown Collection / Unknown 09/02/2018 2:48 PM CDT 09/03/2018 7:00 AM CDT Miscellaneous samples (specimen) ENTIRE LYMPH NODE / Unknown 09/02/2018 2:48 PM CDT 09/03/2018 7:00 AM CDT Miscellaneous samples (specimen) ENTIRE LYMPH NODE / Unknown 09/02/2018 2:48 PM CDT 09/03/2018 6:59 AM CDT Yuli Kirkpatrick MD LAB - PATHOLOGY/CYTO LOGY ORDERABLES [facility] [address] [phone] * BRONCHOSCOPY (09/02/2018 1:09 PM CDT) Report Endoscopy POC [facility] Advanced Diagnostic Bronchoscopy and Interventional Pulmonary Service __ _ Patient Name: Jn Garay ? Procedure Date: 09/02/2018 1:09 PM Date of : 1960 ?Attending MD: Yuli Kirkpatrick MD Age: 58 ? Room: Bronch Suite ? __ _ Providers: ?Yuli Kirkpatrick MD, Hodan Castillo (Fellow), Jose Elias ?DO Kobe (Fellow), Joanne Ornelas RRT, Alix ?Edilson POTATO LOADER, Pickle Pumper, Dori Ellis MD (Fellow) Referring : ? Procedure: ?Bronchoscopy Indications: ?EBUS staging for NSCLC Medicines: ?See the Anesthesia note for documentation of the ?administered medications Comorbidities ? Please refer to chart __ _ Description of Procedure: After obtaining informed consent, the linear EBUS ?bronchoscope was introduced through the mouth, via ?the endotracheal tube and advanced to the ?tracheobronchial tree. Examination of paratracheal, ?medistinal and hilar lymph nodes done. 4R, 7, 11R ?examined and enlarged and are status post FNA. ?Inspection bronchoscopy done after EBUS, reveals no ?bleeding, clear airways. The procedure was ?accomplished without difficulty. the EB-[id number] ?bronchoscope was introduced through the mouth, via ?the endotracheal tube and advanced to the ?tracheobronchial tree. ? Findings: ? The endotracheal tube is in good position. The visualized portion of the ? trachea is of normal caliber. The cortney is sharp. The tracheobronchial ? tree was examined to at least the first subsegmental level. Bronchial ? mucosa and anatomy are normal; there are no endobronchial lesions, and ? no secretions. EBUS examination of paratracheal, medistinal and hilar ? lymph nodes done. 4R, 7, 11R examined and enlarged and are status post ? FNA. Inspection bronchoscopy done after EBUS, reveals no bleeding, clear ? airways. ? Estimated Blood Loss: ? Estimated blood loss: none. Complications: ?No immediate complications __ _ Impression: ? - Enlarged 4R,7,11R. Recommendation: ? - Await cytology results. Attending Participation: ??I was present and participated during the entire ?procedure, including non-nunez portions. Yuli Kirkpatrick MD 09/04/2018 4:46:10 PM Jose Elias Bullock, DO Dori Ellis MD Hodan Castillo, Note Initiated On: 09/02/2018 1:09 PM Number of Addenda: 0 ? [facility] ? [address] [place] [address] [facility] [employer] 09/02/2018 1:09 PM CDT Dori Ellis MD RESPIRATORY THERAPY ORDERABLES [facility] Care Teams Bakelite Molder Relationship Specialty Start Date End Date Iona Torres MD [address] [place] [address] [address] [place] [address] PCP - General 07/04/18
--- OUTSIDE RECORDS SUMMARY | 2024-07-15 13:20 | XMS_ITS ---
Author Organization [facility] Address [address] [place] [address]. 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 Costal chondritis 09/21/2023 Essential hypertension 09/21/2023 Chest pain 09/21/2023 Multiple joint pain 09/21/2023 Rib pain 09/21/2023 Skin eruption 09/21/2023 Smoker 09/21/2023 Low serum vitamin B12 08/30/2023 Disorder of skeletal system 07/25/2023 Acute respiratory failure with hypoxia ([facility]) 07/22/2023 Encounter for peripherally inserted central cath eter flush 04/16/2023 Tremor 02/14/2023 Upper respiratory infection 12/26/2022 Malignant neoplasm of lung ([facility]) Overview (09/21/2023): metastatic non-small cell cancer. but bone cancer Paget's disease of bone 07/13/2021 Paroxysmal A-fib ([facility]) 05/25/2021 Chronic pain syndrome 04/17/2021 Current chronic use of inhaled steroid History of therapeutic radiation 04/17/2021 care home prescription opiate use 04/17/2021 Personal history of tobacco use 04/17/2021 Pulmonary air trapping 04/17/2021 Wheezing 04/17/2021 Benign prostatic hyperplasia with lower urinary tract symptoms 04/09/2019 Acute saddle pulmonary embol ism without acute cor pulmonale ([facility]) 02/11/2019 Typical atrial flutter ([facility]) 019 Wide-complex tachycardia 09/19/2018 Non-small cell lung cancer m 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 ([facility]) 07/16/2018 Vitamin D deficiency 06/25/2018 Sleep apnea, unspecified 06/24/2018 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 Other Current Plans [employer] NEURO In-Clinic Injections* Plan Start Date:02/12/2024 Plan Provider:Michael Ash MD Linked Problems Limb dystonia Treatment Medications No medications scheduled. Past Plans Radiation Treatments * No radiation treatments are documented for this patient in [facility]. Treatments may have been administered in another system.
--- NOTE | 2024-07-15 14:21 | ED.GENADULT ---
HPI - General Adult General Chief complaint: Unspecified <Annette Vela October, MILK ROUTE DELIVERER - Last Filed: 07/15/24 15:56> Stated complaint: mult complaints <Annette Vela October, MILK ROUTE DELIVERER - Last Filed: 07/15/24 15:56> Time Seen by Provider: 07/15/24 15:47 <Annette Vela October, MILK ROUTE DELIVERER - Last Filed: 07/15/24 15:56> Focused HPI: Jn Garay is a 63 y/o male with PMhx of bone CA - stage 4 lung CA - who presents with complaints of new onset of left lower leg swelling that started yesterday. He also states that he is having a hard time emptying his bladder. He states he has a hx of TURP and feels that he can hardly start urinating he states it got a lot worse today and having bladder pain. He wears 3-3.5 nasal canula O2 at baseline I upated pt that his US of his left leg is negative for blood clots but he wants to be checked out for his bladder pain too. GENERAL: Well-appearing, well-nourished, and in no acute distress. HEAD: Normocephalic, atraumatic. CHEST: Clear to auscultation. ?No respiratory distress. HEART: Regular rate and rhythm.? NEURO: ?Alert and oriented x3. Patient screened in triage and initial orders placed.? ?Additional care and disposition to be based upon?diagnostic testing and treatment. <Annette Vela October, MILK ROUTE DELIVERER - Last Filed: 07/15/24 15:56> Related Data Home medications: Home Medications ?Medication ?Instructions ?Recorded ?Confirmed ?Last Taken ?Type pregabalin 225 mg capsule (Lyrica) 225 mg PO BID 11/07/19 05/28/24 05/27/24 History triamcinolone acetonide 0.1 % 1 applic topical QID PRN psioriasis 11/07/19 05/28/24 Unknown History topical cream (Triderm) cholecalciferol (vitamin D3) 1,250 1,250 mcg PO WEEKLY 09/09/20 05/28/24 05/26/24 History mcg (50,000 unit) capsule tamsulosin 0.4 mg capsule 0.4 mg PO DAILY 01/10/22 05/28/24 05/27/24 History albuterol sulfate 90 mcg/actuation 2 inh inhalation Q4H PRN Shortness 05/15/22 05/28/24 05/27/24 History aerosol inhaler Of Breath Or Wheezing ferrous sulfate 325 mg (65 mg 325 mg PO DAILY 07/18/22 05/28/24 05/27/24 History iron) tablet (iron) folic acid 1 mg tablet 1 mg PO DAILY 07/26/22 05/28/24 05/27/24 History omeprazole 40 mg capsule,delayed 40 mg PO DAILY 08/03/22 05/28/24 05/27/24 History release ondansetron HCl 8 mg tablet 8 mg PO QID PRN NAUSEA 08/03/22 05/28/24 05/27/24 History oxycodone 40 mg tablet,crush 40 mg PO Q12H 01/02/24 05/28/24 05/27/24 History resistant,extended release 12 hr acetaminophen 500 mg tablet 500 mg PO Q6H PRN Pain (Scale 03/07/24 05/28/24 05/27/24 History Score 1-3) cyanocobalamin (vitamin B-12) 2,500 mcg PO DAILY 03/07/24 05/28/24 05/27/24 History fluticasone propion-salmeterol 2 puff inhalation Q12H 03/07/24 05/28/24 Unknown History naloxone 4 mg/actuation nasal 4 mg intranasal PER PKG DIR 03/07/24 05/28/24 Unknown History spray (Narcan) oxycodone 5 mg capsule 5 mg PO Q6H PRN Breakthrough Pain 03/07/24 05/28/24 05/27/24 History furosemide 40 mg tablet 40 mg PO BID edema 05/28/24 06/20/24 05/27/24 History sodium chloride-aloe vera nasal 1 applic intranasal Q6H PRN nasal 05/28/24 06/20/24 05/28/24 History gel (Wayne Saline nasal gel) dryness <Annette Carlton, MILK ROUTE DELIVERER - Last Filed: 07/15/24 15:56> Allergies/adverse reactions: Allergies Allergy/AdvReac Type Severity Reaction Status Date / Time bee venom protein (honey bee) Allergy Unknown Swelling Verified 07/02/24 10:23 alprazolam (From Xanax) AdvReac Intermediate Agitated Verified 07/02/24 10:23 <Annette Vela October, - Last Filed: 07/15/24 15:56> [facility] Past Medical History Medical History: Medical History History of recurrent pneumonia Chronic anticoagulation Chronic respiratory failure with hypoxia, on home oxygen therapy Chronic obstructive pulmonary disease uses 3 L prn Benign prostatic hyperplasia Chronic anemia Seasonal allergies History of pulmonary embolism (12/2018) History of DVT (deep vein thrombosis) Right upper extremity DVT and bilateral PE December 2018 for which he took Xarelto for several months. Anxiety Peripheral neuropathy Chronic pain syndrome Due to chronic lower back pain after complications with lower spinal fusion 2009. Hypertension Reports he is no longer on medications for such. Atrial fibrillation s/p cardiac ablation by Dr. Tom Oakley at [facility] Adenocarcinoma, lung Non-small cell carcinoma diagnosed June 2018. Follows with Dr. Baez and Dr. Cavazos; underwent radiation therapy from 12/05/2018 to 12/18/2018 and again in fall 2021 due to recurrence. Now with metastatic disease to lymph nodes and bone. He is currently receiving chemotherapy and has plans to start Keytruda on August 18. 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 Followed by Dr. Parson at [facility] last seen around December 2018. <Annette Vela October, - Last Filed: 07/15/24 15:56> Surgical History Surgical History: Surgical History (Updated 05/09/24 @ 14:36 by Traci Dawn PA-C) History of cholecystectomy History of transurethral resection of prostate History of open heart surgery (~2017) Status post resection of atrial myxoma. History of lumbar fusion Anterior and posterior L4-S1 fusion 2009 History of appendectomy In the 90s History of carpal tunnel release Left 2011 History of elbow surgery Left elbow ulnar neurolysis <Annette Carlton - Last Filed: 07/15/24 15:56> Family History Family History: Family History Father Acute myocardial infarction Pulmonary embolism Sibling Breast cancer Mother Family history of chronic obstructive pulmonary disease <Annette Vela October, - Last Filed: 07/15/24 15:56> Social History Social History: Social History Social History: Mr. Garay lives with his ex- Edna in [place]. They have 2 children. 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 He denies significant alcohol use, drinks socially. Smoked 2 packs per day of cigarettes x 40 years and quit 2017. Denies other substance use. Long-term opioid use due to chronic back pain. Ambulates without a cane or walker at home. He designates his ex- as his surrogate decision maker and he wishes to be a full code however, he states he would not want to be on a ventilator for long-term. Smoking packs per day: 2 Smoking cigarettes per day: 40.0 Years smoked: 40 Smoking pack-years: 80.00 Smoking status: Former smoker Second hand tobacco smoke exposure: Yes Alcohol intake: never Substance use: never Substance use type: does not use Do You Feel Safe in your Home?: Yes Lack of Transportation: No Lack of Food: Never True Current Housing: I Have Housing Concerned About Future Housing: No Difficulty Paying Gas/Electric Bills: No Difficulty Paying for Meds: No Currently Unemployed: No Education: Decline to Answer Difficulty w/ Childcare or Family Care: No Living arrangements: with family Occupation/Education: unemployed Spiritual care concerns: No <Annette Carlton APRN - Last Filed: 07/15/24 15:56> Exam Narrative: APPEARANCE: No apparent distress. Head: atraumatic. EYES: EOMI, NOSE: Atraumatic NECK: Trachea midline RESPIRATORY: No increased rate of breathing CTAB CARDIOVASCULAR: RRR, mild swelling of the left extremity ABDOMINAL: Palpable pain pump imbedded under the skin, no guarding tenderness rebound no suprapubic fullness MUSCULOSKELETAl: No obvious deformities NEURO: Alert. Moving 4/4 extremities SKIN:: Warm, dry. Normal color PSYCHIATRIC: Normal affect <Mahendra Mitchell MD - Last Filed: 07/15/24 17:23> Course Vital Signs Vital signs: Vital Signs Temperature 97.9 F 07/15/24 13:16 Pulse Rate 97 07/15/24 13:16 Respiratory Rate 20 07/15/24 13:16 Blood Pressure 115/66 07/15/24 13:16 Pulse Oximetry 100 07/15/24 13:16 Temperature 97.9 F 07/15/24 13:16 Pulse Rate 64 07/15/24 15:42 Respiratory Rate 18 07/15/24 15:42 Blood Pressure 129/81 07/15/24 15:42 Pulse Oximetry 98 07/15/24 15:42 Oxygen Delivery Room Air 07/15/24 15:42 <Annette Carlton APRN - Last Filed: 07/15/24 15:56> Vital Signs Temperature 97.9 F 07/15/24 13:16 Pulse Rate 97 07/15/24 13:16 Respiratory Rate 20 07/15/24 13:16 Blood Pressure 115/66 07/15/24 13:16 Pulse Oximetry 100 07/15/24 13:16 Temperature 97.9 F 07/15/24 13:16 Pulse Rate 64 07/15/24 15:42 Respiratory Rate 18 07/15/24 15:42 Blood Pressure 129/81 07/15/24 15:42 Pulse Oximetry 98 07/15/24 15:42 Oxygen Delivery Room Air 07/15/24 15:42 <Mahendra Mithcell MD - Last Filed: 07/15/24 17:23> Medical Decision Making MDM Narrative Medical decision making narrative: -Course: 63-year-old male with a history of metastatic lung cancer presenting for left leg pain and difficulty urinating. Patient was scanned for DVT which was negative. He is on Xarelto regardless. He was having trouble urinating but once he received fentanyl from EMS he was able to completely void his bladder. He does not have any urinary tract infection. Urinary retention could be due to pain. Patient has been encouraged to take his home opiates as needed. Patient is follow-up with his oncologist tomorrow. Patient discharged -DDX includes but is not limited to: UTI, urinary retention, DVT -Co-morbidities complicating care: Stage IV metastatic lung cancer <Mahendra Mitchell MD - Last Filed: 07/15/24 17:23> Vital Signs Vital Signs: Vital Signs Temperature 97.9 F 07/15/24 13:16 Pulse Rate 97 07/15/24 13:16 Respiratory Rate 20 07/15/24 13:16 Blood Pressure 115/66 07/15/24 13:16 Pulse Oximetry 100 07/15/24 13:16 Temperature 97.9 F 07/15/24 13:16 Pulse Rate 64 07/15/24 15:42 Respiratory Rate 18 07/15/24 15:42 Blood Pressure 129/81 07/15/24 15:42 Pulse Oximetry 98 07/15/24 15:42 Oxygen Delivery Room Air 07/15/24 15:42 <Annette Carlton MILK ROUTE DELIVERER - Last Filed: 07/15/24 15:56> Vital Signs Temperature 97.9 F 07/15/24 13:16 Pulse Rate 97 07/15/24 13:16 Respiratory Rate 20 07/15/24 13:16 Blood Pressure 115/66 07/15/24 13:16 Pulse Oximetry 100 07/15/24 13:16 Temperature 97.9 F 07/15/24 13:16 Pulse Rate 64 07/15/24 15:42 Respiratory Rate 18 07/15/24 15:42 Blood Pressure 129/81 07/15/24 15:42 Pulse Oximetry 98 07/15/24 15:42 Oxygen Delivery Room Air 07/15/24 15:42 <Mahendra Mitchell MD - Last Filed: 07/15/24 17:23> Lab Data Result diagrams: 07/15/24 14:57 07/15/24 14:57 <Annette Carlton APRN - Last Filed: 07/15/24 15:56> Labs: Lab Results 07/15/24 07/15/24 Range/Units 14:57 16:44 WBC 5.2 (4.5-10.0) K/mm3 RBC 4.34 L (4.6-6.20) M/mm3 Hgb 11.5 L (14.0-18.0) g/dL Hct 37.6 L (42.0-52.0) % MCV 86.6 (80-100) fl MCH 26.5 (26-34) pg MCHC 30.6 L (32-36) g/dl RDW 16.8 H (11.5-14.5) % Plt Count 172 (150-375) k/mm3 MPV 10.3 (7.4-10.4) fl Immature Gran % (Auto) 0.0 (0-0.5) % Neut % (Auto) 55.7 (45.5-73.1) % Lymph % (Auto) 32.3 (18.3-44.2) % Yates % (Auto) 7.0 (2.6-8.5) % Eos % (Auto) 4.4 (0-4.4) % Baso % (Auto) 0.6 (0.2-1.2) % Lymph # (Auto) 1.67 (0.9-3.2) K/mm3 Yates # (Auto) 0.4 (0.1-0.6) K/mm3 Eos # (Auto) 0.2 (0-0.3) K/mm3 Baso # (Auto) 0.0 (0.0-0.1) K/mm3 Abs Immat Gran (auto) 0.00 (0.00-0.031) K/mm3 Absolute Neuts (auto) 2.9 (1.3-6.7) K/mm3 Absolute Nucleated RBC 0.000 (0.0-0.012) K/mm3 Nucleated RBC % 0.0 (0.0-0.2) % Sodium 138 (137-145) mmol/L Potassium 4.2 (3.4-5.0) mmol/L Chloride 104 (98-107) mmol/L Carbon Dioxide 25 (22-30) mmol/L Anion Gap 9 (4-12) mmol/L BUN 10 (9-20) mg/dL Creatinine 0.80 (0.7-1.3) mg/dL Estim Creat Clear Calc 91 ml/min Estimated GFR > 60 (59 - ) Glucose 104 (65-110) mg/dL Calcium 7.4 L (8.4-10.2) mg/dL Total Bilirubin 0.4 (0.2-1.3) mg/dL AST 19 (17-59) U/L ALT 10 (6-50) U/L Alkaline Phosphatase 142 H (38-126) U/L Total Protein 7.0 (6.3-8.2) g/dL Albumin 3.7 (3.5-5.1) g/dL Urine Color Yellow (Yellow) Urine Appearance Clear (Clear) Urine pH 5.0 (5.0-9.0) Ur Specific [place] 1.012 (1.001-1.035) Urine Protein Negative (Negative) mg/dL Urine Glucose (UA) Negative (Negative) mg/dL Urine Ketones Negative (Negative) mg/dL Ur Blood (Man) Negative (Negative) Urine Nitrate Negative (Negative) Urine Bilirubin Negative (Negative) Urine Urobilinogen 0.2 (<2.0) mg/dL Leukocyte Esterase Rfl Negative (Negative) ESPERANZA/UL <Annette Mirian October, MILK ROUTE DELIVERER - Last Filed: 07/15/24 15:56> Lab Results 07/15/24 07/15/24 Range/Units 14:57 16:44 WBC 5.2 (4.5-10.0) K/mm3 RBC 4.34 L (4.6-6.20) M/mm3 Hgb 11.5 L (14.0-18.0) g/dL Hct 37.6 L (42.0-52.0) % MCV 86.6 (80-100) fl MCH 26.5 (26-34) pg MCHC 30.6 L (32-36) g/dl RDW 16.8 H (11.5-14.5) % Plt Count 172 (150-375) k/mm3 MPV 10.3 (7.4-10.4) fl Immature Gran % (Auto) 0.0 (0-0.5) % Neut % (Auto) 55.7 (45.5-73.1) % Lymph % (Auto) 32.3 (18.3-44.2) % Yates % (Auto) 7.0 (2.6-8.5) % Eos % (Auto) 4.4 (0-4.4) % Baso % (Auto) 0.6 (0.2-1.2) % Lymph # (Auto) 1.67 (0.9-3.2) K/mm3 Yates # (Auto) 0.4 (0.1-0.6) K/mm3 Eos # (Auto) 0.2 (0-0.3) K/mm3 Baso # (Auto) 0.0 (0.0-0.1) K/mm3 Abs Immat Gran (auto) 0.00 (0.00-0.031) K/mm3 Absolute Neuts (auto) 2.9 (1.3-6.7) K/mm3 Absolute Nucleated RBC 0.000 (0.0-0.012) K/mm3 Nucleated RBC % 0.0 (0.0-0.2) % Sodium 138 (137-145) mmol/L Potassium 4.2 (3.4-5.0) mmol/L Chloride 104 (98-107) mmol/L Carbon Dioxide 25 (22-30) mmol/L Anion Gap 9 (4-12) mmol/L BUN 10 (9-20) mg/dL Creatinine 0.80 (0.7-1.3) mg/dL Estim Creat Clear Calc 91 ml/min Estimated GFR > 60 (59 - ) Glucose 104 (65-110) mg/dL Calcium 7.4 L (8.4-10.2) mg/dL Total Bilirubin 0.4 (0.2-1.3) mg/dL AST 19 (17-59) U/L ALT 10 (6-50) U/L Alkaline Phosphatase 142 H (38-126) U/L Total Protein 7.0 (6.3-8.2) g/dL Albumin 3.7 (3.5-5.1) g/dL Urine Color Yellow (Yellow) Urine Appearance Clear (Clear) Urine pH 5.0 (5.0-9.0) Ur Specific [place] 1.012 (1.001-1.035) Urine Protein Negative (Negative) mg/dL Urine Glucose (UA) Negative (Negative) mg/dL Urine Ketones Negative (Negative) mg/dL Ur Blood (Man) Negative (Negative) Urine Nitrate Negative (Negative) Urine Bilirubin Negative (Negative) Urine Urobilinogen 0.2 (<2.0) mg/dL Leukocyte Esterase Rfl Negative (Negative) ESPERANZA/UL <Mahendra Mitchell MD - Last Filed: 07/15/24 17:23> Discharge Plan Discharge Clinical Impression: Leg pain, Lung cancer <Annette Carlton APRN - Last Filed: 07/15/24 15:56> Patient Disposition: Home, Self-Care <Annette Carlton APRN - Last Filed: 07/15/24 15:56> Condition: Guarded Prognosis <Annette Carlton APRN - Last Filed: 07/15/24 15:56> Instructions: Antibiotic Form, Cancer Pain (ED) <Annette Carlton APRN - Last Filed: 07/15/24 15:56> Additional Instructions: You were seen emergency department for leg pain and for difficulty urinating. Your leg is swollen but there is no blood clot. Please continue your Lasix and compression socks. Use your oral pain medication as needed. Return if you develop severe pain or inability to urinate. <Annette Carlton, MILK ROUTE DELIVERER - Last Filed: 07/15/24 15:56> Patient Language: Moldovan <Annette Carlton, MILK ROUTE DELIVERER - Last Filed: 07/15/24 15:56> Prescriptions: No Action cholecalciferol (vitamin D3) 1,250 mcg (50,000 unit) capsule 1,250 mcg PO WEEKLY Patient Comments: PT TAKES ON SUNDAY Rx Instructions: Pt take on Sunday ferrous sulfate [iron] 325 mg (65 mg iron) Tablet 325 mg PO DAILY folic acid 1 mg tablet 1 mg PO DAILY oxycodone 40 mg tablet,oral only,ext.rel.12 hr 40 mg PO Q12H triamcinolone acetonide [Triderm] 0.1 % cream 1 applic TOPICAL QID PRN (Reason: psioriasis ) Rx Instructions: to face as needed for psorasis pregabalin [Lyrica] 225 mg capsule 225 mg PO BID tamsulosin 0.4 mg capsule 0.4 mg PO DAILY albuterol sulfate 90 mcg/actuation HFA aerosol inhaler 2 inh INHALATION Q4H PRN (Reason: Shortness Of Breath Or Wheezing) Saline Mist 0.65 % Aerosol,[place] 1 spray intranasal Q2H PRN (Reason: Congestion) 30 Days Qty: 45 0RF ergocalciferol (vitamin D2) [Vitamin D2] 1,250 mcg (50,000 unit) Capsule 50,000 unit PO Mo@0900 Qty: 12 0RF lorazepam 0.5 mg Tablet 0.5 mg PO Q8H PRN (Reason: Anxiety) Qty: 10 0RF ondansetron HCl 8 mg tablet 8 mg PO QID PRN (Reason: NAUSEA) omeprazole 40 mg capsule,delayed release(DR/EC) 40 mg PO DAILY Xarelto 20 mg Tablet 20 mg PO DAILY@1700 Qty: 30 0RF acetaminophen 500 mg Tablet 500 mg PO Q6H PRN (Reason: Pain (Scale Score 1-3)) oxycodone 5 mg capsule 5 mg PO Q6H PRN (Reason: Breakthrough Pain) naloxone [Narcan] 4 mg/actuation [place],Non-Aerosol 4 mg INTRANASAL PER PKG DIR Rx Instructions: 1 spray into 1 nostril if response is not achieved after 2 or 3 minutes give a second dose intranasal cyanocobalamin (vitamin B-12) 2,500 mcg PO DAILY fluticasone propion-salmeterol 2 puff inhalation Q12H furosemide 40 mg tablet 40 mg PO BID Wayne Saline Gel 1 applic intranasal Q6H PRN (Reason: nasal dryness) cefdinir 300 mg capsule 300 mg PO Q12H 5 Days Qty: 10 0RF fluticasone propionate 50 mcg/actuation [place],Suspension 1 spray intranasal Q12HR Qty: 16 0RF loratadine 10 mg Tablet 10 mg PO QAM Qty: 30 0RF metoprolol tartrate 50 mg Tablet 50 mg PO Q12HR Qty: 60 0RF albuterol sulfate 2.5 mg/0.5 mL solution for nebulization 5 mg inhalation Q6H PRN (Reason: shortness of breath or wheezing) Qty: 30 0RF nystatin 100,000 unit/mL suspension 1 ml PO QID 7 Days Qty: 28 0RF Rx Instructions: swish and swallow guaifenesin [Mucus Relief ER] 600 mg Tablet Extended Release 12hr 1,200 mg PO Q12HR PRN (Reason: Cough) Qty: 10 0RF <Annette Carlton, ANNETTA - Last Filed: 07/15/24 15:56> Follow-up/Referrals: Shant,JEFFREY Marcelo [Primary Care Provider] - <Annette Carlton, ANNETTA - Last Filed: 07/15/24 15:56>
--- OUTSIDE RECORDS SUMMARY | 2024-07-15 14:59 | XMS_ITS | Clinical Summary ---
Author Organization [facility] Address [address] [place] [address] Care Team Providers Care Product Support Rep Name Role Phone Camden Bran Primary Care Provider + Edilma Lubin PRINTING MACHINIST Unavailable [phone] Allergies Active Allergy Reactions Criticality Noted Date Comments Venom-Honey Bee Anaphylaxis High 08/29/2018 Wasp Venom Anaphylaxis High 08/29/2018 Wasp Venom Protein Starter Kit Anaphylaxis High 08/16 Medications triamcinolone (KENALOG) 0.1 % cream as needed Active pregabalin (LYRICA) 225 mg capsule Take 1 capsule (225 mg total) by mouth 2 (two) times a day 4 Active cholecalciferol (VITAMIN D-3) 11718 unit tablet Take 1 tablet (50,000 Units [...] - 04/16/2024 11:59 PM CDT Hospital Encounter [facility] [address] [place] [address] Edilma Lubin NP Pain, cancer (Primary Dx); [...] on file Legal Sex Male 8:58 PM CANVAS MARKER Gender Identity Male 03/18/2024 2:40 PM CDT [...] Screening-Colonoscopy 10/23/20262016 Medical Devices Implanted Type Area Tile Applicator Device Identifier Shelf Expiration Date Model / Serial / Lot Medtronic Inc Ascenda 4fr .5mm 114cm 86cm 2 Piece Connector Pin Flexible Closed [id number] - [id number] Implanted:Qty: 1 on 10/11/2023 by Gerry Trivedi MD at [facility] Left: Abdomen Medtronic Inc 09/19/2025 [id number] / / [id number] Medtronic Usa [employer] X Pump Infusion Programmable Ulp Ami 40ml Volume Synchromed Iii 8667-40 - [id number] - [id number] Implanted:Qty: 1 on 10/11/2023 by Gerry Trivedi MD at [facility] Left: Abdomen Medtronic Usa Inc X 03/01/2025 8667-40 / [id number] / Medtronic Inc Tyrx 3.35x3in Large Envelope Absorbable Polyarylate Minocycline [id number] - [id number] Implanted:Qty: 1 on 10/11/2023 by Gerry Trivedi MD at [facility] Left: Abdomen Medtronic Inc 05/22/2024 [id number] / / [id number] Medtronic Inc Vectris 5mm 75cm 1x8 Electrode Compact Mri Lead Neurostimulator [id number] - [id number] Implanted:Qty: 1 on 02/28/2024 by Gerry Trivedi MD at [facility] N/A: Back Medtronic Inc 11/19/2027 [id number] [id number] / / [id number] Medtronic Inc Generator Pulse Inceptiv Sys Stm Electrcl Analges Implant [id number] - [id number] - [id number] Implanted:Qty: 1 on 02/28/2024 by Gerry Trivedi MD at [facility] N/A: Back Medtronic Inc [id number] / [id number] / Medtronic Inc Vectris 5mm 75cm 1x8 Electrode Compact Mri Lead Neurostimulator [id number] - [id number] Implanted:Qty: 1 on 02/28/2024 by Gerry Trivedi MD at [facility] N/A: Back Medtronic Inc 05/28/2027 [id number] / / [id number] Medtronic Inc Envelope Absrb 2.7x2.5in Antibacterial Tyrx Medium Strl [id number] - [id number] Implanted:Qty: 1 on 02/28/2024 by Gerry Trivedi MD at [facility] N/A: Back Medtronic Inc 10/06/2024 NMR [id number] / / [id number] Procedures Procedure Name Priority Date/Time Associated Diagnosis [...] agrees with it. ACC# ??Date Time ??Exam [id number] October 23, 2016 10:41:[address] Colonography Dx w/o ACC# ??Date Time ??Exam [id number] October 23, 2016 10:41:[address] Colonography Dx w/o EXAMINATION: ? CT [...] ZAPATA M.D. on October ?? 2016 ??4:41P [id number] Procedure Note Miscellaneous, Not In File / Provider, MD Kaye - 11/11/2016 MARTA ZAPATA M.D. FLOYD BOYLE MD FINAL REPORT The radiology attending physician has personally reviewed this study, and has reviewed and/or edited this written report and agrees with it. ACC# Date Time Exam [id number] October 23, 2016 10:41:[id number] Colonography Dx w/o ACC# Date Time Exam [id number] October 23, 2016 10:41:[address] Colonography Dx w/o EXAMINATION: CT colonography [...] ZAPATA M.D. on Oct 23 2016 4:41P [id number] us Not In File Miscellaneous IMG CT PROCEDURES Mckenzie l Result from Last 3 Months or Most Recently Relevant to Health Maintenance Insurance [employer] HMO Care Teams Product Support Rep Relationship Specialty Start Date End Date Camden Bran PA [address] [place] [address] PCP - General Internal Medicine 04/16/24 [place] [id number] [facility] [address] [place] [address] Nurse Practitioner Annealing Furnace Tender 04/16/24
--- OUTSIDE RECORDS SUMMARY | 2024-07-15 14:59 | XMS_ITS | Encounter Summary ---
Author Organization [facility] [employer] [facility] Address [address] [place] [address] Care Team Providers Care Percussion Welding Machine Operator Name Role Phone Unavailable Primary Care Provider Unavailabl e Encounter Details Date Type Department Care Team (Late st Contact Info) Description 07/14/2024 Orders Only [facility] Oncology and Hematology - Shant [address] [facility] [address] [place] [address] Jefferson Baez MD [address] [facility] [address] [place] [address] Non-small cell cancer of right lung (CMS/HCC) Social History Tobacco Use Types Packs/Day Years Used Date Smoking Tobacco: Former Cigarettes 2 40 0 06/25/1978 - 06/25/2018 Smokeless Tobacco: Current Alcohol Use Standard Drinks/Week Comments No 0 (1 standard drink = 0.6 oz pur e alcohol) Feeling Safe Answer Date Recorded Are you in a relationship wi th someone who hurts you emotionally and/or physically? No 08/14/2022 Sex and Gender Information Value Date Recorded Sex Assigned at Male 07/02/2023 2:30 PM PLASTER HELPER Legal Sex Male 1:30 PM PLASTER HELPER Gender Identity Male 07/02/2023 2:30 PM PLASTER HELPER Sexual Orientation Bisexual 07/02/2023 2: 30 PM PLASTER HELPER Sexual Orientation Straight 07/02/2023 2: 30 PM PLASTER HELPER documented as of this encounter Plan of Treatment Upcoming Encounters Date Type Department Care Team (Late st Contact Info) Description 08/04/2024 9:00 AM PLASTER HELPER Office Visit [facility] Oncology and Hematology - Shant [address] [facility] [address] [place] [address] Jefferson Baez MD [address] [facility] [address] [place] [address] documented as of this encounter Procedures Procedure Name Priority Date/Time Associated Diagnosis Comments XR PORT CONTRAST INJECT W FLUORO Routine 07/11/2024 11:02 AM PLASTER HELPER documented in this encounter Results * XR PORT CONTRAST INJECT W FLUORO (07/11/2024 11:02 AM PLASTER HELPER) Anatomical Region Laterality Modality Other Jefferson Baez MD DIAGNOSTIC IMAGING ORDERABLES F inal Result documented in this encounter Visit Diagnoses Diagnosis 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 diff 06/23/2022 06/23/2022 documented as of this encounter
--- OUTSIDE RECORDS SUMMARY | 2024-07-15 14:59 | XMS_ITS | Encounter Summary ---
Author Organization [facility] Address [address] [place] [address] Care Team Providers Care Certified Medication Aide Name Role Phone Iona Torres MD Primary Care Provider [phone] Encounter Details Date Type Department Care Team (Late Contact Info) Description 11/19/2018 Chart Note [facility] Radiation Therapy [address] [place] [address] [place] [address] [place] [address] Social History Tobacco Use Types Packs/Day Years Used Date Smoking Tobacco: Former Cigarettes 2 40 0 06/25/1978 - 06/25/2018 Smokeless Tobacco: Current Alcohol Use Standard Drinks/Week Comments No 0 (1 standard drink = 0.6 oz pur e alcohol) Sex and Gender Information Value Date Recorded Sex Assigned at Male 07/02/2023 2:30 PM PRICING COORDINATOR Legal Sex Male 1:30 PM PRICING COORDINATOR Gender Identity Male 07/02/2023 2:30 PM PRICING COORDINATOR Sexual Orientation Bisexual 07/02/2023 2: 30 PM PRICING COORDINATOR Sexual Orientation Straight 07/02/2023 2: 30 PM PRICING COORDINATOR documented as of this encounter Plan of Treatment Upcoming Encounters Date Type Department Care Team (Late Contact Info) Description 08/04/2024 9:00 AM PRICING COORDINATOR Office Visit [facility] Oncology and Hematology - Shant [address] [facility] [address] [place] [address] Jefferson Baez MD [address] [facility] [address] [place] [address] documented as of this encounter Visit Diagnoses Not on filedocumented in this encounter Additional Health Concerns Infection Onset Date Last Indicated Resolved Time R/O C. diff 06/23/2022 06/23/2022 documented as of this encounter Care Teams Certified Medication Aide Relationship Specialty Start Date End Date Iona Torres MD PCP - General Family Practice 07/16/18 01/02/24 documented as of this encounter
--- OUTSIDE RECORDS SUMMARY | 2024-07-15 14:59 | XMS_ITS | Continuity of Care Document ---
Author Organization [facility] Address [address] [place] [address] Phone Care Team Providers Care Director Environmental Name Role Phone Danny Manzo MD Unavailable Unavailable Advance Directives Directive Yes / No Effective Date File Name No Information Encounters Encounter Description Practice Location Reason(s) For Visit Diagnoses Date Provider Providers Copied on Encounter [facility], [address], [place], [place], [id number], [place] tel:[phone] [facility] Jovany Delgado. [address] [place], [place], [id number], [place]. tel:[phone] Family History Family Member Type Diagnosis Age At Onset No Information Payers Payer name Insurance type Covered libertarian ID Authoriza tion(s) No Information Social History [...]
--- OUTSIDE RECORDS SUMMARY | 2024-07-15 14:59 | XMS_ITS | Encounter Summary ---
Author Organization [facility] Address [address] [place] [address] Care Team Providers Care Edging Machine Feeder Name Role Phone Unavailable Primary Care Provider Unavailabl e Reason for Visit * Reason Comments Med Refill Encounter Details Date Type Department Care Team (Late st Contact Info) Description 05/25/2024 Telephone [facility] Heart and Vascular At [address] [place] [address] Kieran Og MD [facility] [address] [facility] [address] [place] [address] Med Refill Social History Tobacco Use Types Packs/Day Years [...] Sex Assigned at Male 07/02/2023 2:30 PM PRACTICE MANAGERS Legal Sex Male 1:30 PM PRACTICE MANAGERS Gender Identity Male 07/02/2023 2:30 PM PRACTICE MANAGERS Sexual Orientation Bisexual 07/02/2023 2: 30 PM PRACTICE MANAGERS Sexual Orientation Straight 07/02/2023 2: 30 PM PRACTICE MANAGERS documented as of this encounter Miscellaneous Notes * Telephone Encounter - Elizabeth Collins RN - 05/27/2024 4:13 PM CST Ed Cox, this pt will need another appointment with Dr Og before we can send refills. Thank you TICE MANAGERS * Telephone Encounter - Brooke Kingston - 05/27/2024 3:10 PM CST Comments: Date Last Seen: 03/14/23 with Kieran Og MD Next Appointment: NA with Kieran Og MD Last BMP: Lab Results Component Value Date/Time NA 132 (L) 05/25/2021 05:07 AM K 3.6 05/25/2021 05:07 AM CL 95 (L) 05/25/2021 05:07 AM CO2 31 (H) 05/25/2021 05:07 AM CA 8.3 (L) 05/25/2021 05:07 AM BUN 14 05/25/2021 05:07 AM CREAT 0.95 05/25/2021 05:07 AM GLUCOSE 142 (H) 05/25/2021 05:07 AM ANIONGAP 6 (L) 05/25/2021 05:07 AM BCRATIO NOT APPLICABLE 04/25/2021 03:03 PM Last CMP: Lab Results Component Value Date/Time NA 132 (L) 05/25/2021 05:07 AM K 3.6 05/25/2021 05:07 AM CL 95 (L) 05/25/2021 05:07 AM CO2 31 (H) 05/25/2021 05:07 AM CA 8.3 (L) 05/25/2021 05:07 AM BUN 14 05/25/2021 05:07 AM CREAT 0.95 05/25/2021 05:07 AM GLUCOSE 142 (H) 05/25/2021 05:07 AM TOTALPROTEIN 5.3 (L) 05/21/2021 04:14 AM ALBUMIN 3.1 (L) 05/21/2021 04:14 AM BILITOTAL 0.4 05/21/2021 04:14 AM ALKPHOS 83 05/21/2021 04:14 AM AST 88 (H) 05/21/2021 04:14 AM ALT 32 05/21/2021 04:14 AM ANIONGAP 6 (L) 05/25/2021 05:07 AM BCRATIO NOT APPLICABLE 04/25/2021 03:03 PM Last 3 INR: Lab Results Component Value Date/Time INR 1.5 (H) 05/20/2021 12:25 PM INR 1.0 04/25/2021 03:03 PM PT 18.6 (H) 05/20/2021 12:25 PM PT 10.3 04/25/2021 03:03 PM Last Lipid Panel: No results found for: CHOLTOT , HDL , LDLCALC , LDLDIRECT , TRIGLYCERIDE Current Medication: Current Outpatient Medications Medication Sig Dispense Refill ondansetron (ZOFRAN ODT) 8 mg Tablet, Rapid Dissolve DISSOLVE 1TAB ON TOP TONGUE THEN SWALLOW WITH SALIVA EVERY 8 HOURS NEEDED FOR NAUSEA OR VOMITING 30 Tablet 1 albuterol (PROVENTIL,VENTOLIN) 2.5 mg /3 mL (0.083 %) Solution for Nebulization INHALE 3 ML BY INHALATION EVERY 6 HOURS NEEDED FOR SHORTNESS OF BREATH OR WHEEZING 375 mL 3 budesonide (PULMICORT RESPULE) 0.5 mg/2 mL Suspension for Nebulization INHALE ONE VIAL TWICE A DAY MIXED W/ ALBUTEROL X14 DAYS. DX : J44.9 (COPD) 60 mL 3 lidocaine-prilocaine (EMLA) 2.5-2.5 % Cream Apply a quarter size amount to port site 30 minutes before access. 30 Gram 1 dexAMETHasone (DECADRON) 4 mg tablet Take 2 Tablets (8 mg) by mouth 2 times daily day before treatment, day of treatment, and day after treatment with each cycle. 12 Tablet 4 levoFLOXacin (LEVAQUIN) 750 mg tablet Take 1 Tablet (750 mg) by mouth every evening for 10 days. 10Tablet 0 Xarelto 20 mg Tablet TAKE 1 TABLET BY MOUTH DAILY WITH SUPPER 30 Tablet 3 folic acid (FOLVITE) 1 mg tablet take 1 tablet by mouth every day 90 Tablet 1 fluticasone propion-salmeteroL (ADVAIR HFA) 230-21 mcg/actuation HFA Aerosol Inhaler Take 2 Puffs by inhalation every 12 hours. 12 Gram 11 fentaNYL (DURAGESIC) 100 mcg/hr patch Apply 1 Patch to skin as directed every third day. Max Daily Amount: 1 Patch 10 Patch 0 metoprolol tartrate (LOPRESSOR) 25 mg tablet TAKE 0.5 TABLETS BY MOUTH 2 TIMES DAILY. 90 Tablet 2 LORazepam (ATIVAN) 0.5 mg tablet TAKE 1 TABLET 3 TIMES A DAY BY ORAL ROUTE NEEDED. montelukast (SINGULAIR) 10 mg tablet Take 1 Tablet by mouth daily at bedtime. omeprazole (PriLOSEC) 40 mg Capsule, Delayed Release(E.C.) Take 40 mg by mouth daily. predniSONE (DELTASONE) 10 mg tablet Take 4 tablets (40mg) x 3 days, take 3 tablets (30mg) x 3 days,take 2 tablets (20mg) x 3 days, and 1 tablet (10mg) for 3 days. 30 Tablet 0 HYDROcodone-acetaminophen (NORCO) 7.5-325 mg Tablet Take 1 Tablet by mouth every 8 hours as needed for Pain, Moderate. Max Daily Amount: 3 Tablets 60 Tablet 0 ferrous sulfate 325 mg (65 mg iron) tablet ferrous sulfate 325 mg (65 mg iron) tablet TAKE 1 TABLET BY MOUTH TWICE A DAY cyanocobalamin (VITAMIN B-12) 250 mcg Tablet Take 250 mcg by mouth daily. oxygen home delivery Administer in each nostril. lidocaine (lidocaine viscous 2%) 2 % Solution Mix with 100 ml liquid Diphenhydramine 12.5mg/5ml [id number] ml Mylanta (or Maalox). Shake to mix before using. Swallow 15 mL immediately before meals and at bedtime as needed for painful swallowing. Do not swish. 100 mL 1 furosemide (LASIX) 40 mg tablet Take 40 mg by mouth daily. PRN ONLY ibandronate (BONIVA) 150 mg tablet 11/2021 MEDICATION IS ON HOLD naloxone (Narcan) 4 mg/spray [place], Non-Aerosol Narcan 4 mg/actuation nasal spray 1 SPRAY INTO 1 NOSTRIL IF RESPONSE IS NOT ACHIEVED AFTER 2 OR 3 MINUTES GIVE A 2ND DOSE INTRANASAL tiZANidine (ZANAFLEX) 4 mg Tablet tizanidine 4 mg tablet TAKE 1 TABLET BY MOUTH THREE TIMES A DAY NEEDED FOR MUSCLE SPASM oxyCODONE (OxyCONTIN) 30 mg Controlled Release 12 hour crush resistant tablet Take 60 mg by mouth every 12 hours. triamcinolone acetonide (KENALOG) 0.1 % Cream acetaminophen (TYLENOL) 500 mg tablet Take 500 mg by mouth every 6 hours as needed. PROAIR HFA 90 mcg/actuation inhaler INHALE 2 PUFFS BY MOUTH EVERY 4 HOURS 5 cholecalciferol 50,000 unit Capsule TAKE 1 CAPSULE EVERY WEEK 0 DULoxetine (CYMBALTA) 30 mg Capsule, Delayed Release(E.C.) TAKE ONE CAPSULE BY MOUTH EVERY DAY AT BEDTIME 0 oxyCODONE (ROXICODONE) 5 mg tablet TAKE 1 TABLET EVERY 4-6 HRS NEEDED FOR PAIN 0 LYRICA 75 mg Capsule 225 mg every 12 hours. 0 tamsulosin (FLOMAX) 0.4 mg capsule TAKE 1 CAPSULE BY MOUTH EVERY DAY 5 DULoxetine (CYMBALTA) 60 mg Capsule, Delayed Release(E.C.) TAKE ONE CAPSULE EVERY DAY 0 No current facility-administered medications for this visit. TICE MANAGERS documented in this encounter Plan of Treatment Upcoming Encounters Date Type Department Care Team (Late st Contact Info) Description 08/04/2024 9:00 AM PRACTICE MANAGERS Office Visit [facility] Oncology and Hematology - Shant [address] [facility] [address] [place] [address] Jefferson Baez MD [address] [facility] [address] [place] [address] documented as of this encounter Visit Diagnoses Not on filedocumented in this encounter Additional Health Concerns Infection Onset Date Last Indicated Resolved Time R/O C. diff 06/23/2022 06/23/2022 documented as of this encounter
--- OUTSIDE RECORDS SUMMARY | 2024-07-15 14:59 | XMS_ITS ---
Author Organization [facility] Address [address] [place] [address] Care Team Providers Care Systems Mechanic Name Role Phone Camden Bran Primary Care Provider + Edilma Lubin AIR CONDITIONING COIL ASSEMBLER Unavailable [phone] Active Problems Problem Noted Date Diagnosed Date [...] treatments are documented for this patient in [facility]. Treatments may have been administered in another system. Lifetime Dose Tracking * Chemical Lifetime Dose Automatic Entry Manual Entr y Fluoro Time 4.06 minutes 4.06 minutes 0 minutes Air kerma at the reference point (Ka,r) 49.19 mGy 4 9.19 mGy 0 mGy
--- OUTSIDE RECORDS SUMMARY | 2024-07-15 14:59 | XMS_ITS | Clinical Summary ---
Author Organization [facility] Address [address] [place] [address]. [place] [address] [place] [address] Care Team Providers Care Binder Stripper Hand Name Role Phone Nathen Vicente MD Primary Care Provider [phone] Allergies Active Allergy Reactions Criticality Noted Date Comments Bee Venom Anaphylaxis High 08/29/2018 Medications DULoxetine 60 MG capsule Take 1 capsule (60 mg total) by mouth daily. 0 Active Cholecalciferol (VITAMIN D3) 1.25 MG (54253 UT) Tab TAKE 1 TABLET BY MOUTH [...] system 07/25/2023 Acute respiratory failure with hypoxia ([facility]) 07/22/2023 Encounter for peripherally inserted central cath eter flush 04/16/2023 Tremor 02/14/2023 Upper respiratory infection 12/26/2022 Malignant neoplasm of lung ([facility]) Overview (09/21/2023): metastatic non-small cell cancer. but bone cancer Paget's disease of bone 07/13/2021 Paroxysmal A-fib ([facility]) 05/25/2021 Chronic pain syndrome 04/17/2021 Current chronic use of inhaled steroid History of therapeutic radiation 04/17/2021 group home prescription opiate use 04/17/2021 Personal history of tobacco use 04/17/2021 Pulmonary air trapping 04/17/2021 Wheezing 04/17/2021 Benign prostatic hyperplasia with lower urinary tract symptoms 04/09/2019 Acute saddle pulmonary embol ism without acute cor pulmonale ([facility]) 02/11/2019 Typical atrial flutter ([facility]) 019 Wide-complex tachycardia 09/19/2018 Non-small cell lung cancer m 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 ([facility]) 07/16/2018 Vitamin D deficiency 06/25/2018 Sleep apnea, unspecified 06/24/2018 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 Overview (09/21/2023): S/p resection Chronic obstructive pulmonary disease ([facility]) 06/24/2018 Family history of heart disease 06/24/2018 [...] 03/26/2021, 03/26/2019, Additional history exists PHQ-2 (Physician [place]) 06/18/2024 Meningococcal B Vaccine Aged Out No l onger eligible based on patient's age to complete this topic Meningococcal Vaccine Aged Out No klarissa jose eligible based on patient's age to complete this topic RSV Immunizations Under 20 Months Aged Out No longer eligible based on patient's age to complete this topic Insurance [employer] Care Teams Binder Stripper Hand Relationship Specialty Start Date End Date Nathen Vicente MD [address] [place] [address] PCP - General HOSPITALIST 02/12/24
--- OUTSIDE RECORDS SUMMARY | 2024-07-15 14:59 | XMS_ITS | Encounter Summary ---
Author Organization [facility] Address [address] [place] [address]. [place] [address] [place] [address] Care Team Providers Care Metal Fabricating Inspector Name Role Phone Iona Saucedo MD Primary Care Provider [phone] Nathen Vicente MD Primary Care Provider [phone] Encounter Details Date Type Department Care Team (Late st Contact Info) Description 04/16/[address] [facility] [address] [place], [place] [id number] Felix Vergara MD [address] [facility] [address] [place] [address] Social History Tobacco Use Types Packs/Day [...] catheter documented in this encounter Care Teams Metal Fabricating Inspector Relationship Specialty Start Date End Date Iona Saucedo MD [address] [place] [address] PCP - General FAMILY PRACTICE 12/02/19 02/11/24 Nathen Vicente MD [address] [place] [address] PCP - General HOSPITALIST 02/12/24 documented as of this encounter
--- OUTSIDE RECORDS SUMMARY | 2024-07-15 14:59 | XMS_ITS | CONTINUITY OF CARE DOCUMENT ---
Author Name sheila sosa Address Unknown Organization [facility] Address [address] [facility] [address] [place] [address] Phone [phone] Care Team Providers Care Hook Up Name Role Phone Bernabe ADRIAN, Bryan Unavailable [phone] [place] Unavailable BRIAN ADRIAN, ABRIL CAICEDO Unavailable [phone] PROBLEMS Condition Status Date Provider Notes Vitamin D deficiency active Bryan Benoit D BPH active Bryan Kidd MD ? Sleep apnea active Bryan Kidd MD FAMILY HISTORY OF HEART DISEASE active Vic Kidd MD dad had pe and mi Screening active Bryan Kidd MD Pulmonary nodule active Bryan Kidd MD Neuropathy active Bryan Kidd MD neg rpr Atrial myxoma, left active Bryan Kidd MD Tobacco abuse active Bryan Kidd MD Ventricular tachycardia active Bryan hess MD COPD active Bryan Kidd MD ENCOUNTERS Date Type Provider Location Encounter Diag nosis - In-person encounter Office Visit Bryan Kidd MD [facility] Office COPDVentricular tachycardiaTobacco abuseAtrial myxoma, leftNeuropathyPulmonary noduleScreeningFAMILY [...] [in_i] Kadeemity Marylu weight E&M 180 [lb_av] [facility] ALL[facility] No Known Drug Allergies RESULTS Date Observation Value Provider Reference Range Interpretation Location 8 B-12, serum 567 pg/mL [facility] [id number] rapid plasma reagin antibody screen Non Reactive [employer] Non Reactive HISTORY OF MEDICATION USE Medication Status Instructions Dates Provider Indications Com ments VITAMIN D3 06812 UNIT ORAL TABLET active TAKE ONE TAB [...] Payer name Policy type / Coverage type [place] red [employer] party ID [employer] MEDICAID (2) Medicaid [id number] ADVANCE DIRECTIVES Name Date DISCUSSED - NO [...]
--- OUTSIDE RECORDS SUMMARY | 2024-07-15 14:59 | XMS_ITS | Clinical Summary ---
Author Organization [facility] Address [address] [place] [address] Care Team Providers Care Wire Twister Name Role Phone Unavailable Primary Care Provider Unavailabl e Allergies Active Allergy Reactions Criticality Noted Date Comments Venom-Honey Bee Anaphylaxis High 08/29/2018 Wasp Venom Protein Starter Kit Anaphylaxis High 08/16 Medications PROAIR HFA 90 mcg/actuation inhaler INHALE 2 PUFFS BY MOUTH EVERY 4 HOURS 5 018 Active cholecalciferol 50,000 unit Capsule TAKE 1 CAPSULE EVERY WEEK 0 019 Active DULoxetine (CYMBALTA) 30 mg Capsule, Delayed Release(E.C.) TAKE ONE CAPSULE BY MOUTH EVERY DAY AT BEDTIME 0 019 Active oxyCODONE (ROXICODONE) 5 mg tablet TAKE 1 TABLET EVERY 4-6 HRS NEEDED FOR PAIN 0 019 Active LYRICA 75 mg Capsule 225 mg every 12 hours. 0 019 Active tamsulosin (FLOMAX) 0.4 mg capsule TAKE 1 CAPSULE BY MOUTH EVERY DAY 5 019 Active DULoxetine (CYMBALTA) 60 mg Capsule, Delayed Release(E.C.) TAKE ONE CAPSULE EVERY DAY 0 018 Active acetaminophen (TYLENOL) 500 mg tablet Take 500 mg by mouth every 6 hours as needed. Active triamcinolone acetonide (KENALOG) 0.1 % Cream Active oxyCODONE (OxyCONTIN) 30 mg Controlled Release 12 hour crush resistant tablet Take 60 mg by mouth every 12 hours. Active ibandronate (BONIVA) 150 mg tablet 11/2021 MEDICATION IS ON HOLD Active naloxone (Narcan) 4 mg/spray [place], Non-Aerosol Narcan 4 mg/actuation nasal spray 1 SPRAY INTO 1 NOSTRIL IF RESPONSE IS NOT ACHIEVED AFTER 2 OR 3 MINUTES GIVE A 2ND DOSE INTRANASAL Active tiZANidine (ZANAFLEX) 4 mg Tablet tizanidine 4 mg tablet TAKE 1 TABLET BY MOUTH THREE TIMES A DAY NEEDED FOR MUSCLE SPASM Active furosemide (LASIX) 40 mg tablet Take 40 mg by mouth daily. PRN ONLY Active lidocaine (lidocaine viscous 2%) 2 % Solution Mix with 100 ml liquid Diphenhydramine 12.5mg/5ml and 100 ml Mylanta (or Maalox). Shake to mix before using. Swallow 15 mL immediately before meals and at bedtime as needed for painful swallowing. Do not swish. 100 mL 1 022 Active ferrous sulfate 325 mg (65 mg iron) tablet ferrous sulfate 325 mg (65 mg iron) tablet TAKE 1 TABLET BY MOUTH TWICE A DAY Active cyanocobalamin (VITAMIN B-12) 250 mcg Tablet Take 250 mcg by mouth daily. Active oxygen home delivery Administer in each nostril. Active HYDROcodone-tarik taminophen (NORCO) 7.5-325 mg TabletIndicatio ns:Non-small cell cancer of right lung (CMS/HCC) Take 1 Tablet by mouth every 8 hours as needed for Pain, Moderate. Max Daily Amount: 3 Tablets 60 Tablet 023 Active LORazepam (ATIVAN) 0.5 mg tablet TAKE 1 TABLET 3 TIMES A DAY BY ORAL ROUTE NEEDED. 023 Active montelukast (SINGULAIR) 10 mg tablet Take 1 Tablet by mouth daily at bedtime. Active omeprazole (PriLOSEC) 40 mg Capsule, Delayed Release(E.C.) Take 40 mg by mouth daily. Active predniSONE (DELTASONE) 10 mg tablet Take 4 tablets (40mg) x 3 days, take 3 tablets (30mg) x 3 days, take 2 tablets (20mg) x 3 days, and 1 tablet (10mg) for 3 days. 30 Tablet 024 Active metoprolol tartrate (LOPRESSOR) 25 mg tablet TAKE 0.5 TABLETS BY MOUTH 2 TIMES DAILY. 90 Tablet 2 024 Active fentaNYL (DURAGESIC) 100 mcg/hr patchIndication s:Non-small cell cancer of right lung (CMS/HCC) Apply 1 Patch to skin as directed every third day. Max Daily Amount: 1 Patch 10 Patch 024 Active fluticasone propion-salmete roL (ADVAIR HFA) 230-21 mcg/actuation HFA Aerosol Inhaler Take 2 Puffs by inhalation every 12 hours. 12 Gram 11 024 Active folic acid (FOLVITE) 1 mg tabletIndicatio ns:Non-small cell cancer of right lung (CMS/HCC) take 1 tablet by mouth every day 90 Tablet 1 024 Active levoFLOXacin (LEVAQUIN) 750 mg tablet Take 1 Tablet (750 mg) by mouth every evening for 10 days. 10 Tablet 024 Active lidocaine-prilo ariana (EMLA) 2.5-2.5 % Cream Apply a quarter size amount to port site 30 minutes before access. 30 Gram 1 024 Active dexAMETHasone (DECADRON) 4 mg tablet Take 2 Tablets (8 mg) by mouth 2 times daily day before treatment, day of treatment, and day after treatment with each cycle. 12 Tablet 4 024 Active albuterol (PROVENTIL,VENT ADIS) 2.5 mg /3 mL (0.083 %) Solution for Nebulization INHALE 3 ML BY INHALATION EVERY 6 HOURS NEEDED FOR SHORTNESS OF BREATH OR WHEEZING 375 mL 3 024 Active budesonide (PULMICORT RESPULE) 0.5 mg/2 mL Suspension for Nebulization INHALE ONE VIAL TWICE A DAY MIXED W/ ALBUTEROL X14 DAYS. DX : J44.9 (COPD) 60 mL 3 024 Active Xarelto 20 mg TabletIndicatio ns:Acute saddle pulmonary embolism without acute cor pulmonale (CMS/HCC) TAKE 1 TABLET BY MOUTH DAILY WITH SUPPER 30 Tablet 3 024 Active ondansetron (ZOFRAN ODT) 8 mg Tablet, Rapid Dissolve DISSOLVE 1TAB ON TOP TONGUE THEN SWALLOW WITH SALIVA EVERY 8 HOURS NEEDED FOR NAUSEA OR VOMITING 30 Tablet 1 025 Active ondansetron (ZOFRAN ODT) 8 mg Tablet, Rapid Dissolve DISSOLVE 1TAB ON TOP TONGUE THEN SWALLOW WITH SALIVA EVERY 8 HOURS NEEDED FOR NAUSEA OR VOMITING 30 Tablet 1 024 2024 Discontinued Active Problems Patient Care Coordination No te Formatting of this note migh t be different from the original. 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 Overview (02/08/2022): S/p resection Paroxysmal A-fib 05/25/2021 Personal history of tobacco use 04/17/2021 Pulmonary hyperinflation 04/17/2021 Pulmonary air trapping 04/17/2021 Current chronic use of inhaled steroid Wheezing 04/17/2021 Stage 2 moderate chronic obs tructive pulmonary disease by Global Initiative for Chronic Obstructive Lung Disease classification 04/17/2021 Shortness of breath on exertion 04/17/2021 Personal history of radiation therapy 04/17/2021 Chronic pain syndrome 04/17/2021 emt intermediate prescription opiate use 04/17/2021 Acute saddle pulmonary embolism without acute co r pulmonale 02/11/2019 Non-small cell cancer of right lung 07/16/2018 Cancer Staging:Clinical:Stage IV(cM1) - Unsigned Encounters Date Type Department Care Team Description 07/14/2024 Orders Only [facility] - [address] [place] [phone] Jefferson Baez MD Non-small cell cancer of right lung (CMS/HCC) 07/10/2024 Telephone [facility] [address] [place] [address] Orlando Vela MD Information 07/09/2024 External Device Data STL ABSTRACTION Provider, Abstract 07/09/2024 External Device Data STL ABSTRACTION Provider, Abstract 07/08/2024 Telephone [facility] [address] [place] [phone] Orlando Vela MD Results (CT chest); Needs Orders Written (Airway Clearance vest) 07/07/2024 Orders Only [facility] - [address] [place] [phone] Jefferson Baez MD Non-small cell cancer of right lung (CMS/HCC) 07/02/2024 9:15 AM FINANCIAL REPRESENTATIVE Office Visit [facility] [address] [place] [phone] Jefferson Baez MD Non-small cell cancer of right lung (CMS/HCC) (Primary Dx); Prostate cancer screening 07/02/2024 External Device Data STL ABSTRACTION Provider, Abstract 07/02/2024 Telephone [facility] [address] [place] [phone] Jefferson Baez MD Dye Study 07/02/2024 Orders Only [facility] - [facility] [address] [place] [phone] Jefferson Baez MD 07/02/2024 Telephone [facility] [address] [place] [address] [address] [place] [address] Orlando Vela MD Insurance Issues (Out of state, cannot do video visit) 07/01/2024 Telephone [facility] - [facility] [address] [place] [phone] concerns/Results 06/30/2024 Orders Only [facility] - [facility] [address] [place] [phone] Jefferson Baez MD Non-small cell cancer of right lung (CMS/HCC) 06/27/2024 Orders Only [facility] - [address] [place] [phone] Jefferson Baez MD 06/26/2024 Telephone [facility] [address] [place] [address] Orlando Vela MD Results (CT chest); Wants Appointment 06/26/2024 Orders Only [facility] - [address] Jefferson Baez MD 06/25/2024 Refill [facility] - [address] [place] [phone] Jefferson Baez MD 06/24/2024 External Device Data STL ABSTRACTION Provider, Abstract 06/23/2024 Orders Only [facility] - [address] [place] [phone] Jefferson Baez MD Non-small cell cancer of right lung (CMS/HCC) 06/16/2024 Orders Only [facility] - [address] [place] [phone] Jefferson Baez MD Non-small cell cancer of right lung (CMS/HCC) 06/09/2024 Orders Only [facility] - [address] [place] [phone] Jefferson Baez MD Non-small cell cancer of right lung (CMS/HCC) 06/08/2024 Refill [facility] - [address] [place] [phone] Jefferson Baez MD Acute saddle pulmonary embolism without acute cor pulmonale ([facility]/HCC) 06/04/2024 Telephone [facility] [address] [place] [phone] Orlando Vela MD CHARLES result 06/02/2024 Telephone [facility] [address] [place] [phone] Orlando Vela MD Request for orders (Airway clearance device) 06/02/2024 Refill [facility] - [address] [place] [phone] Jefferson Baez MD 06/02/2024 Refill [facility] [address] [place] [address] Orlando Vela MD 06/02/2024 Orders Only [facility] - [address] [place] [phone] Jefferson Baez MD Non-small cell cancer of right lung ([facility]/HCC) 05/26/2024 Orders Only [facility] - [address] [place] [phone] Jefferson Baez MD Non-small cell cancer of right lung ([facility]/HCC) 05/25/2024 Telephone [facility] [address] [place] [address] Kieran Og MD Med Refill 05/23/2024 Orders Only [facility] [address] [place] [address] Jefferson Baez MD 05/22/2024 Orders Only [facility] - [address] [place] [address] Jefferson Baez MD 05/21/2024 9:15 AM FINANCIAL REPRESENTATIVE Office Visit [facility] - [place] [address] [place] [phone] Jefferson Baez MD Non-small cell cancer of right lung (CMS/HCC) (Primary Dx) 05/20/2024 Orders Only [facility] - [address] Jefferson Baez MD Non-small cell cancer of right lung (CMS/HCC) (Primary Dx) 05/19/2024 Orders Only [facility] - [place] [address] [place] [phone] Jefferson Baez MD Non-small cell cancer of right lung (CMS/HCC) 05/12/2024 Orders Only [facility] - [facility] [address] [place] [address] Jefferson Baez MD Non-small cell cancer of right lung (CMS/HCC) 05/09/2024 Telephone [facility] - [facility] [address] [place] [address] Jefferson Baez MD Breathing Problem 05/08/2024 Refill [facility] [address] [place] [address] Orlando Vela MD 05/08/2024 Refill [facility] - [facility] [address] [place] [address] Jefferson Baez MD 05/08/2024 Telephone [facility] [address] [place] [address] Orlando Vela MD Medical Records; Thrush; Admission (H&P) 05/07/2024 Orders Only [facility] - [facility] [address] Jefferson Baez MD 05/06/2024 Telephone [facility] - [address] [place] [phone] Jefferson Baez MD Imaging Results 05/06/2024 Orders Only [facility] [address] [place] [address] Orlando Vela MD Chronic pulmonary embolism, unspecified pulmonary embolism type, unspecified whether acute cor pulmonale present (CMS/HCC) (Primary Dx) 05/05/2024 Telephone [facility] - [address] Jefferson Baez MD Wheezing 05/05/2024 Orders Only [facility] - [address] Jefferson Baez MD Non-small cell cancer of right lung (CMS/HCC) 05/02/2024 Orders Only [facility] - [address] Jefferson Baez MD 05/01/2024 Orders Only [facility] - [address] Jefferson Baez MD 04/29/2024 Refill [facility] [address] [place] [address] Orlando Vela MD 04/28/2024 Orders Only [facility] - [address] [place] [phone] Jefferson Baez MD Non-small cell cancer of right lung (CMS/HCC) 04/25/2024 Orders Only [facility] - [address] [place] [address] Jefferson Baez MD 04/23/2024 11:45 AM FINANCIAL REPRESENTATIVE Office Visit [facility] [place] [address] [place] [phone] Orlando Vela MD Stage 2 moderate chronic obstructive pulmonary disease by Global Initiative for Chronic Obstructive Lung Disease classification (CMS/HCC) (Primary Dx); Shortness of breath on exertion; Non-small cell cancer of right lung (CMS/HCC); Current chronic use of inhaled steroid; Personal history of pulmonary embolism; Personal history of radiation therapy; Personal history of tobacco use; Pulmonary air trapping; Pulmonary hyperinflation; Chronic anticoagulation; Encounter for medication monitoring; Chronic pain syndrome; Atrial myxoma; Non-small cell lung cancer m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 (CMS/HCC); Paroxysmal atrial fibrillation (CMS/HCC); Acute lower respiratory tract infection; Failed back surgical syndrome; Peripheral polyneuropathy 04/21/2024 Refill [facility] - [address] [place] [address] Munira Magana MD 04/21/2024 Orders Only [facility] - [facility] [address] [place] [address] Jefferson Baez MD Non-small cell cancer of right lung (CMS/HCC) 04/20/2024 Refill [facility] - [facility] [address] [place] [address] Jefferson Baez MD 04/14/2024 Orders Only [facility] - [facility] [address] [place] [address] Jefferson Baez MD Non-small cell cancer of right lung (CMS/HCC) from Last 3 Months Immunizations Immunization Administration Dates Next Due ([employer])(12 YR UP) COVID-19 VACCINE - EMERGENCY USE AUTHORIZATION, MRNA, [id number](PF) 30 MCG/0.3 ML IM SUSP 09/16/2020,08/16/2020 Influenza Seasonal Unspecified Formulation IM Family History Medical History Relation Name Comments Cancer Father Diabetes Father Heart Disease Father Prostate Cancer Father Heart Disease Mother Breast Cancer Sister 1 Cancer Sister 1 Diabetes Sister 1 Diabetes Sister 2 Heart Disease Sister 2 Relation Name Status Comments Father Mother Sister 1 Sister 2 Alive Sister 3 Alive Social History Tobacco Use Types Packs/Day Years Used Date Smoking Tobacco: Former Cigarettes 2 40 0 06/25/1978 - 06/25/2018 Smokeless Tobacco: Current Tobacco Cessation:Ready to Q uit: Not Asked; Counseling Given: Not Answered Alcohol Use Standard Drinks/Week Comments No 0 (1 standard drink = 0.6 oz pur e alcohol) Feeling Safe Answer Date Recorded Are you in a relationship wi th someone who hurts you emotionally and/or physically? No 08/14/2022 Sex and Gender Information Value Date Recorded Sex Assigned at Male 07/02/2023 2:30 PM FINANCIAL REPRESENTATIVE Legal Sex Male 1:30 PM FINANCIAL REPRESENTATIVE Gender Identity Male 07/02/2023 2:30 PM FINANCIAL REPRESENTATIVE Sexual Orientation Bisexual 07/02/2023 2: 30 PM FINANCIAL REPRESENTATIVE Sexual Orientation Straight 07/02/2023 2: 30 PM FINANCIAL REPRESENTATIVE Last Filed Vital Signs Vital Sign Reading Time Taken Comments Blood Pressure 121/77 07/02/2024 9:26 AM FINANCIAL REPRESENTATIVE Pulse 98 07/02/2024 9:26 AM FINANCIAL REPRESENTATIVE Temperature 36.1 ??C (97 ??F) 07/02/2024 9:26 AM FINANCIAL REPRESENTATIVE Respiratory Rate 20 07/02/2024 9:26 AM FINANCIAL REPRESENTATIVE Oxygen Saturation 95% 07/02/2024 9:26 AM FINANCIAL REPRESENTATIVE Inhaled Oxygen Concentration - - Weight 90.7 kg (200 lb) 07/02/2024 9:26 AM FINANCIAL REPRESENTATIVE Height 185.4 cm (6' 1 ) 04/23/2024 11:38 AM FINANCIAL REPRESENTATIVE Body Mass Index 26.39 04/23/2024 11:38 AM FINANCIAL REPRESENTATIVE Plan of Treatment Upcoming Encounters Date Type Department Care Team (Late st Contact Info) Description 08/04/2024 9:00 AM FINANCIAL REPRESENTATIVE Office Visit [facility] - [place] [address] [place] [address] Jefferson Baez MD [address] [facility] [address] [place] [address] Health Maintenance Due Date Last Done Comments DTAP/TDAP/TD VACCINES (1 - Tdap) 1980 ZOSTER VACCINE (1 of 2) 1980 COLORECTAL SCREENING 2006 FIT-DNA Q 3 years 2006 FIT/FOBT Q 1 year 2006 RSV VACCINE (60+ or ) (1 - Risk 60-74 years 1-dose series) 2021 Colorectal Cancer Screening 10/23/2021 Flex Sig/CT Colonography Q 5 years 10/23/20212016 INFLUENZA VACCINE (#1) 2024 03/26/2021, 2018 COVID-19 Vaccine (2023-2 5 season) 2024 02/05/2023, 06/10/2022, 09/17/2021, Additional history exists Pre-Diabetes and Diabetes Screening 05/21/2024 05/21/2021 Medical Devices Implanted Type Area Water Analyst Device Identifier Shelf Expiration Date Model / Serial / Lot Clip Ligating Horizon Sm Ti [id number] - Csc - [id number] Implanted:Qty: 1 on 05/20/2021 by Bandar Alberto MD at [facility] Clip N/A: Chest [employer] 10/25/2025 [id number] / / [id number] Clip Ligating Horizon Med Ti [id number] - Csc - [id number] Implanted:Qty: 1 on 05/20/2021 by Bandar Alberto MD at [facility] Clip N/A: Chest [employer]LE[employer]- WECK CLOSURE SYS 11/22/2025 [id number] / / [id number] Patch Pericardial 9x14 C0914 - [id number] Implanted:Qty: 1 on 05/20/2021 by Bandar Alberto MD at [facility] Graft N/A: Heart [employer] [id number] 05/22/2023 [id number] / / [id number] Hemostat Maco Surg Mph Pwd 3gm [id number] - [id number] Implanted:Qty: 1 on 05/20/2021 by Bandar Alberto MD at [facility] N/A: Chest [employer] [id number] 12/13/2025 [id number] / / [id number] Spinal Hardware Procedures Procedure Name Priority Date/Time Associated Diagnosis Comments XR PORT CONTRAST INJECT W FLUORO Routine 07/11/2024 11:02 AM FINANCIAL REPRESENTATIVE COMPREHENSIVE METABOLIC PANEL Routine 07/02/2024 3:57 PM FINANCIAL REPRESENTATIVE CBC WITH DIFFERENTIAL Routine 07/02/2024 3:[address] CHEST W CONTRAST Routine 06/25/2024 1 :01 PM FINANCIAL REPRESENTATIVE IRON PANEL Routine 06/20/2024 11:09 AM FINANCIAL REPRESENTATIVE VITAMIN B12 LEVEL Routine 06/20/2024 10: 54 AM FINANCIAL REPRESENTATIVE CBC WITH DIFFERENTIAL Routine 06/20/2024 10:22 AM FINANCIAL REPRESENTATIVE COMPREHENSIVE METABOLIC PANEL Routine 05/21/2024 12:34 PM FINANCIAL REPRESENTATIVE URINALYSIS DIPSTICK ONLY Routine 05/21/2024 12:24 PM FINANCIAL REPRESENTATIVE BASIC METABOLIC PANEL Routine 05/21/2024 9:55 AM FINANCIAL REPRESENTATIVE CBC WITH DIFFERENTIAL Routine 05/21/2024 8:58 AM FINANCIAL REPRESENTATIVE XR CHEST LAT 1 VW Routine 05/05/2024 11: 21 AM FINANCIAL REPRESENTATIVE CBC WITH DIFFERENTIAL Routine 05/01/2024 4:17 PM FINANCIAL REPRESENTATIVE BASIC METABOLIC PANEL Routine 05/01/2024 4:15 PM FINANCIAL REPRESENTATIVE COMPREHENSIVE METABOLIC PANEL Routine 05/01/2024 11:07 AM FINANCIAL REPRESENTATIVE CBC MIXED CELL DIFFERENTIAL Routine 04/25/2024 1:31 PM FINANCIAL REPRESENTATIVE HEMOGLOBIN A1C Routine 05/21/2021 4:14 AM FINANCIAL REPRESENTATIVE from Last 3 Months or Most Recently Relevant to Health Maintenance Results * XR PORT CONTRAST INJECT W FLUORO (07/11/2024 11:02 AM FINANCIAL REPRESENTATIVE) Anatomical Region Laterality Modality Other us Jefferson Baez MD DIAGNOSTIC IMAGING ORDERABLES F inal Result * COMPREHENSIVE METABOLIC PANEL (07/02/2024 3:57 PM FINANCIAL REPRESENTATIVE) Only the most recent of3 resultswithin the time period is included. Blood us Jefferson Baez MD CHEMISTRY ORDERABLES Final Resu lt * CBC WITH DIFFERENTIAL (07/02/2024 3:56 PM FINANCIAL REPRESENTATIVE) Only the most recent of4 resultswithin the time period is included. Blood Result Tanner Baez MD HEMATOLOGY ORDERABLES Final Res ult * CT CHEST W CONTRAST (06/25/2024 1:01 PM FINANCIAL REPRESENTATIVE) Anatomical Region Laterality Modality Chest Other Result Tanner Baez MD CT ORDERABLES Final Result * IRON PANEL (06/20/2024 11:09 AM FINANCIAL REPRESENTATIVE) Blood Result Tanner Baez MD CHEMISTRY ORDERABLES Final Resu lt * VITAMIN B12 LEVEL (06/20/2024 10:54 AM FINANCIAL REPRESENTATIVE) Blood Result Tanner Baez MD CHEMISTRY ORDERABLES Final Resu lt * URINALYSIS DIPSTICK ONLY (05/21/2024 12:24 PM FINANCIAL REPRESENTATIVE) Urine URINE SPECIMEN OBTAINED BY CLEAN CATCH PROCEDURE / Unknown Result Tanner Baez MD URINE ORDERABLES Final Result * BASIC METABOLIC PANEL (05/21/2024 9:55 AM FINANCIAL REPRESENTATIVE) Only the most recent of2 resultswithin the time period is included. Blood Result Tanner Baez MD CHEMISTRY ORDERABLES Final Resu lt * XR CHEST LAT 1 VW (05/05/2024 11:21 AM FINANCIAL REPRESENTATIVE) Anatomical Region Laterality Modality Chest Other Result Tanner Baez MD DIAGNOSTIC IMAGING ORDERABLES F inal Result * CBC MIXED CELL DIFFERENTIAL (04/25/2024 1:31 PM FINANCIAL REPRESENTATIVE) Blood Jefferson Baez MD HEMATOLOGY ORDERABLES Final Res ult * (ABNORMAL) HEMOGLOBIN A1C (05/21/2021 4:14 AM FINANCIAL REPRESENTATIVE) HEMOGLOBIN A1C 5.8(H) <5.7 % 05/21/2021 8:06 AM FINANCIAL REPRESENTATIVE [facility] EST. AVG GLUCOSE, A1C 120 mg/dL 05/21/2021 8:06 AM FINANCIAL REPRESENTATIVE [facility] Not iT [facility] Blood Venipuncture / Unknown 05/21/2021 4:14 AM FINANCIAL REPRESENTATIVE 05/21/2021 4:21 AM FINANCIAL REPRESENTATIVE Narrative [facility] - 05/21/2021 8:06 AM FINANCIAL REPRESENTATIVE HGB A1C INTERPRETATION NORMAL: ? <5.7% PRE-DIABETES: 5.7 - 6.4% DIABETES: ? 6.5% OR GREATER Lisa MURPHY CHEMISTRY ORDERABLES Mckenzie gonsales Result [facility] Not iT [facility] [id number] [address] [id number] from Last 3 Months or Most Recently Relevant to Health Maintenance Additional Health Concerns Infection Onset Date Last Indicated R/O C. 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
--- OUTSIDE RECORDS SUMMARY | 2024-07-15 14:59 | XMS_ITS ---
Author Organization [facility] Address [address] [place] [address]. 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 Costal chondritis 09/21/2023 Essential hypertension 09/21/2023 Chest pain 09/21/2023 Multiple joint pain 09/21/2023 Rib pain 09/21/2023 Skin eruption 09/21/2023 Smoker 09/21/2023 Low serum vitamin B12 08/30/2023 Disorder of skeletal system 07/25/2023 Acute respiratory failure with hypoxia ([facility] 07/22/2023 Encounter for peripherally inserted central cath eter flush 04/16/2023 Tremor 02/14/2023 Upper respiratory infection 12/26/2022 Malignant neoplasm of lung ([facility]) Overview (09/21/2023): metastatic non-small cell cancer. but bone cancer Paget's disease of bone 07/13/2021 Paroxysmal A-fib ([facility]) 05/25/2021 Chronic pain syndrome 04/17/2021 Current chronic use of inhaled steroid History of therapeutic radiation 04/17/2021 group home prescription opiate use 04/17/2021 Personal history of tobacco use 04/17/2021 Pulmonary air trapping 04/17/2021 Wheezing 04/17/2021 Benign prostatic hyperplasia with lower urinary tract symptoms 04/09/2019 Acute saddle pulmonary embol ism without acute cor pulmonale ([facility]) 02/11/2019 Typical atrial flutter ([facility]) 019 Wide-complex tachycardia 09/19/2018 Non-small cell lung cancer m 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 ([facility]) 07/16/2018 Vitamin D deficiency 06/25/2018 Sleep apnea, unspecified 06/24/2018 Atrial myxoma ([facility]) 06/24/2018 Overview (09/21/2023): S/p resection Chronic obstructive pulmonary disease ([facility]) 06/24/2018 Family history of heart disease 06/24/2018 Overview (09/21/2023): dad had pe and mi Neuropathy 06/24/2018 Overview (09/21/2023): neg rpr Abnormal chest xray 06/09/2016 Dyspnea on exertion 06/09/2016 Nicotine dependence 06/09/2016 Current Oncology Plans No current plan information found. Other Current Plans [employer] NEURO In-Clinic Injections* Plan Start Date:02/12/2024 Plan Provider:Michale Ash MD Linked Problems Limb dystonia Treatment Medications No medications scheduled. Past Plans Radiation Treatments * No radiation treatments are documented for this patient in [facility]. Treatments may have been administered in another system.
--- OUTSIDE RECORDS SUMMARY | 2024-07-15 14:59 | XMS_ITS ---
Author Organization [facility] [address] Address [address] [place] [address] Care Team Providers Care Burner Technician Name Role Phone Unavailable Primary Care Provider Unavailabl e Active Problems Patient Care Coordination No te Formatting of this note migh t be different from the original. Kieran Og MD--Display Designer ([facility] @ ) Problem Noted [...] lung 07/16/2018 Cancer Staging:Clinical:Stage IV(cM1) - Unsigned Current Treatment and Therapy Plans No current plan information found. Past Treatment and Therapy Plans No past plan information found. Lifetime Dose Tracking * Chemical Lifetime Dose Automatic Entry Manual Entr y Air Kerma 210 mGy 0 mGy 210 mGy Dose Area Product (DAP) 16.7 Gy-cm2 0 Gy-cm2 16.7 Gy-cm2
--- OUTSIDE RECORDS SUMMARY | 2024-07-15 14:59 | XMS_ITS | Referral Summary ---
Author Organization [facility] Address [address] [place] [address] Care Team Providers Care Geophysical Support Specialist Name Role Phone Camden Bran Primary Care Provider + Edilma Lubin RUG WEAVER Unavailable [phone] Encounters Date Type Department Care Team Description 04/16/2024 8:14 AM CDT - 04/16/2024 11:59 PM CDT Hospital Encounter [facility] [address] [place], [place] [id number] Edilma Lubin NP Pain, cancer (Primary Dx); [...] a day 4 Active cholecalciferol (VITAMIN D-3) 96753 unit tablet Take 1 tablet (50,000 Units [...] on file Legal Sex Male 8:58 PM RN MDS Gender Identity Male 03/18/2024 2:40 PM CDT [...] on file Medical Devices Implanted Type Area Parts Data Writer Device Identifier Shelf Expiration Date Model / Serial / Lot Medtronic Inc Ascenda 4fr .5mm 114cm 86cm 2 Piece Connector Pin Flexible Closed [id number] - [id number] Implanted:Qty: 1 on 10/11/2023 by Gerry Trivedi MD at [facility] Left: Abdomen Medtronic Inc 09/19/2025 8780 / / [id number] Med[employer]onic [employer] X Pump Infusion Programmable Ulp Ami 40ml Volume Synchromed Iii 8667-40 - [id number] - [id number] Implanted:Qty: 1 on 10/11/2023 by Gerry Trivedi MD at [facility] Left: Abdomen Med[employer] X 03/01/2025 8667-40 / [id number] / Medtronic Inc Tyrx 3.35x3in Large Envelope Absorbable Polyarylate Minocycline [id number] - [id number] Implanted:Qty: 1 on 10/11/2023 by Gerry Trivedi MD at [facility] Left: Abdomen Medtronic Inc 05/22/2024 [id number] / / [id number] Medtronic Inc Vectris 5mm 75cm 1x8 Electrode Compact Mri Lead Neurostimulator [id number] - [id number] Implanted:Qty: 1 on 02/28/2024 by Gerry Trivedi MD at [facility] N/A: Back Medtronic Inc 11/19/2027 977 [id number] / / [id number] Medtronic Inc Generator Pulse Inceptiv Sys Stm Electrcl Analges Implant [id number] - [id number] - [id number] Implanted:Qty: 1 on 02/28/2024 by Gerry Trivedi MD at [facility] N/A: Back Med[employer]onic Inc [id number] [id number] / [id number] / Med[employer]onic Inc Vectris 5mm 75cm 1x8 Electrode Compact Mri Lead Neurostimulator [id number] - [id number] Implanted:Qty: 1 on 02/28/2024 by Gerry Trivedi MD at [facility] N/A: Back Medtronic Inc 05/28/2027 977 [id number] / / [id number] Medtronic Inc Envelope Absrb 2.7x2.5in Antibacterial Tyrx Medium Strl [id number] - [id number] Implanted:Qty: 1 on 02/28/2024 by Gerry Trivedi MD at [facility] N/A: Back Medtronic Inc 10/06/2024 [facility] [id number] / / [id number] Procedures Procedure Name Priority Date/Time Associated Diagnosis [...] agrees with it. ACC# ??Date Time ??Exam [id number] October 23, 2016 10:41:[address] Colonography Dx w/o ACC# ??Date Time ??Exam [id number] October 23, 2016 10:41:[address] Colonography Dx w/o EXAMINATION: ? CT [...] ZAPATA M.D. on October ?? 2016 ??4:41P [id number] Procedure Note Miscellaneous, Not In File / Provider, MD Kaye - 11/11/2016 MARTA ZAPATA M.D. FLOYD BOYLE MD FINAL REPORT The radiology attending physician has personally reviewed this study, and has reviewed and/or edited this written report and agrees with it. ACC# Date Time Exam [id number] October 23, 2016 10:41:[address] Colonography Dx w/o ACC# Date Time Exam [id number] October 23, 2016 10:41:[address] Colonography Dx w/o EXAMINATION: CT colonography [...] ZAPATA M.D. on Oct 23 2016 4:41P [id number] us Not In File Miscellaneous IMG CT PROCEDURES Mckenzie l Result from Last 3 Months or Most Recently Relevant to Health Maintenance Insurance [address] [place] [id number] [employer] MEDICARE HMO [address] [place] [address] [employer] MEDICARE HMO Care Teams Geophysical Support Specialist Relationship Specialty Start Date End Date Camden Bran PA [address] [place] [address] PCP - General Internal Medicine 04/16/24 [place] [id number] [address] Nurse Practitioner Carpet Winder 04/16/24
--- OUTSIDE RECORDS SUMMARY | 2024-07-15 15:00 | XMS_ITS | Clinical Summary ---
Author Organization [facility] Address [address] [place] [address] Care Team Providers Care Ski Lift Attendant Name Role Phone Iona Torres MD Primary Care Provider [phone] Source Comments [facility],non-owned Affiliates and Associated Physician Practices is amultiple site organization consisting of ambulatory clinics and hospital sitesin [place], [place], [place] and [place]. This disclosure is being madepursuant to the Care Everywhere program and may not contain all information available regarding this patient. Last updated 18.[facility] Allergies Active Allergy Reactions Criticality Noted Date [...] as needed 06/17/2018 Active Cholecalciferol (VITAMIN D3) 52864 UNITS capsuleIndication s:Cancer of upper lobe of [...] Sex Assigned at Male 05/18/2021 6:10 PM CASTABLES WORKER Gender Identity Male 05/18/2021 6:10 PM CASTABLES WORKER Sexual Orientation Straight 05/18/2021 6: 10 PM CASTABLES WORKER Last Filed Vital Signs Vital Sign Reading [...] PANEL (CALCIUM TOTAL) STAT 04/23/2019 3:38 PM CASTABLES WORKER Benign prostatic hyperplasia with urinary retention from Last 3 Months or Most Recently Relevant to Health Maintenance Results * (ABNORMAL) BASIC METABOLIC PANEL (CALCIUM TOTAL) (04/23/2019 3:38 PM CASTABLES WORKER) Glucose 93 70 - 105 mg/dL 04/23/2019 4:10 PM CASTABLES WORKER [facility] Sodium 138 136 - 145 mmol/L 04/23/2019 4:10 PM CASTABLES WORKER [facility] Potassium 5.7(H) 3.5 - 4.7 mmol/L 04/23/2019 4:10 PM CASTABLES WORKER [facility] Chloride 105 98 - 107 mmol/L 04/23/2019 4:10 PM CASTABLES WORKER [facility] CO2 24 23 - 31 mmol/L 04/23/2019 4:10 PM CASTABLES WORKER [facility] Calcium 9.3 8.4 - 10.4 mg/dL 04/23/2019 4:10 PM CASTABLES WORKER [facility] Anion Gap 9 8 - 16 mmol/L 04/23/2019 4:10 PM CASTABLES WORKER [facility] BUN 16 8.4 - 25.7 mg/dL 04/23/2019 4:10 PM CASTABLES WORKER [facility] Creatinine 0.97 0.72 - 1.25 mg/dL 04/23/2019 4:10 PM CASTABLES WORKER [facility] eGFR by MDRD >60 >60 mL/min/1.7 3m2 04/23/2019 4:10 PM CASTABLES WORKER [facility] eGFR by MDRD >60 >60 mL/min/1.7 3m2 04/23/2019 4:10 PM CASTABLES WORKER [facility] Blood BLOOD SPECIMEN / Unknown Venipuncture / Unknown 04/23/2019 3:38 PM CASTABLES WORKER 04/23/2019 3:50 PM CASTABLES WORKER Anirudh Paulino MD LAB - CHEMISTRY LALITHA SOL [facility] Organization Address City/State/ZIP Co de Phone Number [facility] [address] [place] [address] from Last 3 Months or [...] 11:02 AM 09/02/2018 7:02 PM Care Teams Ski Lift Attendant Relationship Specialty Start Date End Date Iona Torres MD [facility] [place] [address] PCP - General 07/04/18
--- OUTSIDE RECORDS SUMMARY | 2024-07-15 15:00 | XMS_ITS | Referral Summary ---
Author Organization [facility] Address [address] [place] [address] Care Team Providers Care Evp And Chief Operating Officer Name Role Phone Iona Torres MD Primary Care Provider [phone] Source Comments [facility],non-owned Affiliates and Associated Physician Practices is amultiple site organization consisting of ambulatory clinics and hospital sitesin [place], [place], [place]. This disclosure is being madepursuant to the Care Everywhere program and may not contain all information available regarding this patient. Last updated 18.[facility] Allergies Active Allergy Reactions Criticality Noted Date [...] as needed 06/17/2018 Active Cholecalciferol (VITAMIN D3) 32795 UNITS capsuleIndication s:Cancer of upper lobe of [...] Sex Assigned at Male 05/18/2021 6:10 PM OUTSIDE B2B SALES Gender Identity Male 05/18/2021 6:10 PM OUTSIDE B2B SALES Sexual Orientation Straight 05/18/2021 6: 10 PM OUTSIDE B2B SALES Last Filed Vital Signs Vital Sign Reading [...] PANEL (CALCIUM TOTAL) STAT 04/23/2019 3:38 PM OUTSIDE B2B SALES Benign prostatic hyperplasia with urinary retention from Last 3 Months or Most Recently Relevant to Health Maintenance Results * (ABNORMAL) BASIC METABOLIC PANEL (CALCIUM TOTAL) (04/23/2019 3:38 PM OUTSIDE B2B SALES) Glucose 93 70 - 105 mg/dL 04/23/2019 4:10 PM OUTSIDE B2B SALES [facility] Sodium 138 136 - 145 mmol/L 04/23/2019 4:10 PM OUTSIDE B2B SALES [facility] Potassium 5.7(H) 3.5 - 4.7 mmol/L 04/23/2019 4:10 PM OUTSIDE B2B SALES [facility] Chloride 105 98 - 107 mmol/L 04/23/2019 4:10 PM OUTSIDE B2B SALES [facility] CO2 24 23 - 31 mmol/L 04/23/2019 4:10 PM OUTSIDE B2B SALES [facility] Calcium 9.3 8.4 - 10.4 mg/dL 04/23/2019 4:10 PM OUTSIDE B2B SALES [facility] Anion Gap 9 8 - 16 mmol/L 04/23/2019 4:10 PM [facility] BUN 16 8.4 - 25.7 mg/dL 04/23/2019 4:10 PM [facility] Creatinine 0.97 0.72 - 1.25 mg/dL 04/23/2019 4:10 PM [facility] eGFR by MDRD >60 >60 mL/min/1.7 3m2 04/23/2019 4:10 PM OUTSIDE B2B SALES [facility] eGFR by MDRD >60 >60 mL/min/1.7 3m2 04/23/2019 4:10 PM [facility] Blood BLOOD SPECIMEN / Unknown Venipuncture / Unknown 04/23/2019 3:38 PM OUTSIDE B2B SALES 04/23/2019 3:50 PM OUTSIDE B2B SALES Anirudh Paulino MD LAB - CHEMISTRY LALITHA SOL [facility] Organization Address City/State/ZIP Co de Phone Number [facility] [address] [place] [address] from Last 3 Months or Most Recently Relevant to Health Maintenance Advance Directives * Full Code (Latest Code Status on File) Date Activated Date Inactivated Comments 04/23/2019 4:59 PM 04/24/2019 2:06 PM * Full Code Date Activated Date Inactivated Comments 04/09/2019 12:54 PM 04/09/2019 3:15 PM * Full Code Date Activated Date Inactivated Comments 09/02/2018 11:02 AM 09/02/2018 7:02 PM Care Teams Evp And Chief Operating Officer Relationship Specialty Start Date End Date Iona Torres MD [address] [place] [address] PCP - General 07/04/18
--- OUTSIDE RECORDS SUMMARY | 2024-07-15 15:00 | XMS_ITS | Patient Health Summary ---
Author Organization [facility] Assembly Address [address] [place] [address] Care Team Providers Care Behavioral Technician Name Role Phone Iona Torres MD Primary Care Provider [phone] Note from [facility],non-owned Affiliates and Associated Physician Practices is amultiple site organization consisting of ambulatory clinics and hospital sitesin [place], [place], [place] and [place]. This disclosure is being madepursuant to the Care Everywhere program and may not contain all information available regarding this patient. Last updated 18.[facility] Allergies * Bee Venom(Anaphylaxis) -High Criticality * Wasp Venom(Anaphylaxis) -High Criticality Medications * Be aware that medications may not be up to date on this document. Alwaysverify current medications with the patient. * PROAIR HFA 108 (90 BASE) MCG/ACT inhaler(Started 06/17/2018) Inhale 2 puffs by mouth as needed * Cholecalciferol (VITAMIN D3) 05333 UNITS capsule(Started 07/16/2018) TAKE 1 CAPSULE BY [...] Sex Assigned at Male 05/18/2021 6:10 PM [employer] Gender Identity Male 05/18/2021 6:10 PM [employer] Sexual Orientation Straight 05/18/2021 6: 10 PM [employer] Last Filed Vital Signs Vital Sign Reading [...] 27.12 12/30/2019 9:24 AM CDT Procedures * [place] INSERT NON-INDWELLING BLADDER(Performed 12/30/2019) Performed for Lower urinary tract symptoms (LUTS), Urinary hesitancy * [place] INTRAABDOMINAL PRESSURE TEST(Performed 12/30/2019) Performed for Lower urinary tract symptoms (LUTS), Urinary hesitancy * [place] ANAL/URINARY MUSCLE STUDY(Performed 12/30/2019) Performed for Lower urinary tract symptoms (LUTS), Urinary hesitancy * [place] ELECTRO-UROFLOWMETRY, FIRST(Performed 12/30/2019) Performed for Lower urinary tract symptoms (LUTS), Urinary hesitancy * [place] COMPLEX CYSTOMETROGRAM(Performed 12/30/2019) Performed for Lower urinary tract symptoms (LUTS), Urinary hesitancy * [place] CYSTOURETHROSCOPY(Performed 12/10/2019) Performed for Urinary retention * CULTURE URINE(Performed 12/09/2019) Performed for Dysuria * URINALYSIS AUTO - POINT OF CARE (AMB) [facility](Performed 12/09/2019) Performed for Dysuria * CARDIAC EKG ORDER(Performed 12/03/2019) * CARDIAC EKG ORDER(Performed 06/30/2019) * CULTURE URINE(Performed 05/13/2019) Performed for Lower urinary tract symptoms (LUTS) * [place] MSR PVR U&/BLADD CAPCTY US NON(Performed 05/13/2019) [...] Diagnosis unknown * NEURAXIAL BLOCK(Performed 04/23/2019) * [place] TRANSURETHRAL ELEC-SURG PROSTATECTOM(Performed 04/23/2019) Performed for Diagnosis unknown * PT PTT PANEL(Performed 04/21/2019) Performed for Pre-op testing * CBC W AUTO DIFFERENTIAL(Performed 04/21/2019) Performed for Pre-op testing * PROC CATHETER CHANGE/INSERTION(Performed 04/14/2019) Performed for Benign prostatic hyperplasia with lower urinary tract symptoms, symptom details unspecified * CULTURE URINE(Performed 04/09/2019) Performed for Urinary tract infection associated with indwelling urethral catheter, initial encounter ([facility]) * URINALYSIS W/MICROSCOPIC NO CULTURE(Performed 03/21/2019) [...] 03/07/2019) Performed for Atrial myxoma (HCC) * [place] CYSTOURETHROSCOPY(Performed 02/25/2019) Performed for Enlarged prostate * [...] 08/29/2018) Performed for Pre-op evaluation Results * [place] COMPLEX CYSTOMETROGRAM, [place] ELECTRO-UROFLOWMETRY, FIRST, [place] ANAL/URINARY MUSCLE STUDY, [place] INTRAABDOMINAL PRESSURE TEST, [place] INSERT NON-INDWELLING BLADDER (12/30/2019 1:46 PM CDT) [...] Sanchez DO PROCEDURE/MINOR OCONNELL RGICAL ORDERABLES * [place] CYSTOURETHROSCOPY (12/10/2019 9:50 AM CDT) Narrative Eileen [...] bladder. IMPRESSION: ??Normal exam PLAN: UDS testing Eileen Niec APRN-MARK Eileen JIMENEZ PROCEDURE/MIN OR SURGICAL ORDERABLES * CULTURE URINE (12/09/2019 5:02 PM CDT) Only the most recent of4 resultswithin the time period is included. [facility] Culture Urine >100,000 CFU/mL urogenital gloria RENZO 12/11/2019 6:44 AM CDT [facility]CRO[facility] Urine URINE SPECIMEN OBTAINED BY CLEAN CATCH PROCEDURE / Unknown Collection / Unknown 12/09/2019 5:02 PM CDT 12/09/2019 5:34 PM CDT Eileen Nice APRN-BEET WORKER LAB - MICROBI OLOGY ORDERABLES [facility] [address] [place] [address], [facility] [phone] * URINALYSIS AUTO - POINT OF CARE (AMB) [facility] (12/09/2019 10:30 AM CDT) Only the most recent of2 resultswithin the time period is included. Glucose UA neg Bilirubin UA POCT neg Ketones UA POCT neg Specific [place] UA 1.030 Blood Urine POCT 200 pH UA 6.0 Protein UA 100 Urobilinogen UA 0.2 Nitrite UA pos WBC UA 500 Urine URINE / Unknown 12/09/2019 1 0:30 AM CDT Eileen Nice MUNITIONS WORKER-BEET WORKER LAB - POINT O F CARE ORDERABLES * CARDIAC EKG ORDER (12/03/2019 7:52 AM CDT) Only the most recent of3 resultswithin the time period is included. Narrative 12/03/2019 7:52 AM CDT Ordered by an unspecified provider. Scanned Document CARDIAC SERVICES ORD ERABLES * [place] MSR PVR U&/BLADD CAPCTY US NON (05/13/2019 9:52 AM [employer]) Narrative Selin Daly LPN - 05/13/2019 9:52 AM [employer] Selin Daly LPN ? 05/19/2019 12:46 PM Bladder scan completed post pt void with 13mls noted in bladder at this time. Lidia Sanchez DO PROCEDURE/MINOR OCONNELL RGICAL ORDERABLES * CARDIAC RHYTHM STRIP ORDER (04/25/2019 5:00 PM [employer]) Only the most recent of2 resultswithin the time period is included. Narrative 04/25/2019 5:00 PM [employer] Ordered by an unspecified provider. Scanned Document CARDIAC SERVICES ORD ERABLES * CBC W/O DIFFERENTIAL (04/23/2019 3:38 PM [employer]) Only the most recent of2 resultswithin the time period is included. WBC 4.8 4.4 - 10.7 x10E9/L 04/23/2019 4:02 PM [employer] [facility] RBC 4.44 3.80 - 5.40 x10E12/L 04/23/2019 4:02 PM [employer] [facility] Hemoglobin 12.3 12.0 - 17.6 gm/dL 04/23/2019 4:02 PM [employer] [facility] Hematocrit 39.2 35.2 - 51.7 % 04/23/2019 4:02 PM [employer] [facility] MCV 88.3 80.7 - 98.3 fl 04/23/2019 4:02 PM [facility] MCH 27.7 26.7 - 34.0 pg 04/23/2019 4:02 PM [facility] MCHC 31.4 30.8 - 35.9 gm/dL 04/23/2019 4:02 PM [facility] Platelet Count 232 153 - 416 x10E9/L 04/23/2019 4:02 PM [facility] RDW-CV 14.2 12.1 - 14.9 % 04/23/2019 4:02 PM [facility] MPV 9.8 9.4 - 12.9 fl 04/23/2019 4:02 PM [facility] Blood BLOOD SPECIMEN / Unknown Venipuncture / Unknown 04/23/2019 3:38 PM [employer] 04/23/2019 3:50 PM [employer] Anirudh Paulino MD LAB - HEMATOLOGY ORD ERABLES [facility] [address] [place] [address] * (ABNORMAL) BASIC METABOLIC PANEL (CALCIUM TOTAL) (04/23/2019 3:38 PM [employer]) Only the most recent of5 resultswithin the time period is included. Glucose 93 70 - 105 mg/dL 04/23/2019 4:10 PM [facility] Sodium 138 136 - 145 mmol/L 04/23/2019 4:10 PM [facility] Potassium 5.7(H) 3.5 - 4.7 mmol/L 04/23/2019 4:10 PM [facility] Chloride 105 98 - 107 mmol/L 04/23/2019 4:10 PM [facility] CO2 24 23 - 31 mmol/L 04/23/2019 4:10 PM [facility] Calcium 9.3 8.4 - 10.4 mg/dL 04/23/2019 4:10 PM [facility] Anion Gap 9 8 - 16 mmol/L 04/23/2019 4:10 PM [facility] BUN 16 8.4 - 25.7 mg/dL 04/23/2019 4:10 PM [facility] Creatinine 0.97 0.72 - 1.25 mg/dL 04/23/2019 4:10 PM [facility] eGFR by MDRD >60 >60 mL/min/1.7 3m2 04/23/2019 4:10 PM [employer] [facility] eGFR by MDRD >60 >60 mL/min/1.7 3m2 04/23/2019 4:10 PM [employer] [facility] Blood BLOOD SPECIMEN / Unknown Venipuncture / Unknown 04/23/2019 3:38 PM [employer] 04/23/2019 3:50 PM [employer] Anirudh Paulino MD LAB - CHEMISTRY LALITHA SOL [facility] [address] [place] [address] * GROSS + MICRO EXAM (STL) (04/23/2019 2:25 PM [employer]) Case Report Surgical Pathology Report ? Case: [id number] ? Authorizing Provider: ??Lidia Sanchez, DO ?Collected: ? 04/23/2019 02:25 PM ? Ordering Location: ? [facility] ? Received: ?04/24/2019 05:42 AM ? Pathologist: ? Sigrid Hardin MD ? Specimen: ?Prostate Chips ? 04/28/2019 9:35 AM [facility] Final Diagnosis 1. Prostate chips, TURP: -- Nodular stromal and epithelial hyperplasia AQ/scs 04/28/2019 9:35 AM [facility] Clinical History 58-year-old male. The patient underwent transurethral resection of the prostate. 04/28/2019 9:35 AM [facility] Gross Description The requisition and [...] A1 through A3. TF/me 04/28/2019 9:35 AM [facility] Microscopic Description Microscopic examination substantiates the final diagnosis. AQ/scs 04/28/2019 9:35 AM [facility] Disclaimer All histochemical and/or immunohistochemical results are interpreted with controls that demonstrate appropriate staining reactions before reporting results. Note on use of immunocytochemistry reagents: This test was developed and its performance characteristic determined by [facility], Department of Laboratory Medicine. It has not been cleared or approved by the U.S. Food and Drug Administration (FDA). The FDA has determined that such clearance or approval is not necessary. The test is used for clinical purpose. It should not be regarded as investigational or for research. This laboratory is certified to perform high complexity testing. 04/28/2019 9:35 AM [facility] Embedded Images 04/28/2019 9:35 AM [facility] Pathology/Cytolo gy SPECIMEN FROM PROSTATE OBTAINED BY TRANSURETHRAL RESECTION / Unknown 04/23/2019 2:25 PM [employer] 04/24/2019 5:42 AM [employer] Comment:Pre-op diagnosis: Diagnosis unknown [R69] Lidia Sanchez DO LAB - PATHOLOGY/CY TOLOGY ORDERABLES [facility] [address] [place] [address] * Neuraxial Block (04/23/2019 2:02 PM [employer]) Narrative Kevan Hagan APRN-CRNA - 04/23/2019 2:02 PM [employer] Kevan Hagan APRN-CRNA ? 04/23/2019 ??2:04 PM [...] PT PTT PANEL (04/21/2019 7:21 AM [facility]) PT 10.0 9.5 - 11.6 sec 04/21/2019 8:25 AM [facility] INR 0.9 0.9 - 1.1 04/21/2019 8:25 AM [facility] PTT 24.8 21.0 - 32.0 sec 04/21/2019 8:25 AM [facility] Blood BLOOD SPECIMEN / Unknown Venipuncture / Unknown 04/21/2019 7:21 AM [employer] 04/21/2019 8:04 AM [facility] - 04/21/2019 8:25 AM [facility] Conventional Warfarin Anticoagulant Therapy: INR Reference Range: ??2.0-3.0 Intensive Warfarin Anticoagulant Therapy: INR Reference Range: ? 2.5-3.5 Heparin Therapeutic Range for PTT: 50.5 - 74.3 seconds. Lidia Sanchez DO LAB - COAGULATION ORDERABLES [facility] [address] [place] [address] * CBC W AUTO DIFFERENTIAL (04/21/2019 7:21 AM [facility]) Only the most recent of4 resultswithin the time period is included. WBC 6.3 4.4 - 10.7 x10E9/L 04/21/2019 8:16 AM [facility] WBC Corrected 04/21/2019 8:16 AM [facility] RBC 5.05 3.80 - 5.40 x10E12/L 04/21/2019 8:16 AM [facility] Hemoglobin 14.1 12.0 - 17.6 gm/dL 04/21/2019 8:16 AM [facility] Hematocrit 44.8 35.2 - 51.7 % 04/21/2019 8:16 AM [facility] MCV 88.7 80.7 - 98.3 fl 04/21/2019 8:16 AM [facility] MCH 27.9 26.7 - 34.0 pg 04/21/2019 8:16 AM [facility] MCHC 31.5 30.8 - 35.9 gm/dL 04/21/2019 8:16 AM [facility] Platelet Count 286 153 - 416 x10E9/L 04/21/2019 8:16 AM [facility] RDW-CV 14.3 12.1 - 14.9 % 04/21/2019 8:16 AM [facility] MPV 9.9 9.4 - 12.9 fl 04/21/2019 8:16 AM [facility] Neutrophils % 59.9 44.0 - 73.0 % 04/21/2019 8:16 AM [facility] Lymphocytes % 25.0 20.0 - 43.0 % 04/21/2019 8:16 AM [facility] Monocytes % 8.9 5.0 - 13.0 % 04/21/2019 8:16 AM [facility] Eosinophils % 5.1 0.0 - 6.0 % 04/21/2019 8:16 AM [facility] Basophils % 0.6 0.0 - 2.0 % 04/21/2019 8:16 AM [facility] Immature Granulocytes 0.5 0 - 1 % 04/21/2019 8:16 AM [facility] Neutrophil Absolute 3.76 2.01 - 7.14 x10E9/L 04/21/2019 8:16 AM [facility] Lymphocytes Absolute 1.57 1.07 - 3.94 x10E9/L 04/21/2019 8:16 AM [facility] Monocytes Absolute 0.56 0.26 - 1.07 x10E9/L 04/21/2019 8:16 AM [facility] Eosinophils Absolute 0.32 0 - 0.47 x10E9/L 04/21/2019 8:16 AM [facility] Basophils Absolute 0.04 0 - 0.08 x10E9/L 04/21/2019 8:16 AM [facility] Immature Granulocytes Absolute 0.03 0.00 - 0.06 x10E9/L 04/21/2019 8:16 AM [facility] nRBC Auto 0 /100 WBC 04/21/2019 8:16 AM [facility] Blood BLOOD SPECIMEN / Unknown Venipuncture / Unknown 04/21/2019 7:21 AM [employer] 04/21/2019 8:04 AM [employer] Lidia Sanchez DO LAB - HEMATOLOGY O RDERABLES [facility] [address] [place], [place] [id number] * PROC CATHETER CHANGE/INSERTION (04/14/2019 2:19 PM CDT) Narrative Ana Doll LPN - 04/14/2019 2:19 PM CDT Ana Doll LPN ? 04/14/2019 ??2:23 PM Catheter change, inserted with 16 serbian Coude, with 10cc sterile water into ballon Iram Israel APRN-BEET WORKER PROCEDURE/MINOR SURGICAL ORDERABLES * (ABNORMAL) URINALYSIS W/MICROSCOPIC NO CULTURE (03/21/2019 10:10 AM CDT) Color UA Cecile(A) Straw, Yellow, Colorless 03/21/2019 11:14 AM [facility] Clarity UA Cloudy(A) Clear, t Cloudy 03/21/2019 11:14 AM [facility] Specific [place] UA 1.036(H) 1.005 - 1.030 03/21/2019 11:14 AM [facility] pH UA 5.0 5.0 - 8.0 pH 03/21/2019 11:14 AM [facility] Protein UA 2+(A) Negative mg/dL 03/21/2019 11:14 AM [facility] Glucose UA Negative Negative mg/dL 03/21/2019 11:14 AM [facility] Ketone UA Negative Negative mg/dL 03/21/2019 11:14 AM [facility] Bilirubin UA Negative Negative mg/dL 03/21/2019 11:14 AM [facility] Comment: Urine Bilirubin result confirmed by manual Ictotest. Blood UA 3+(A) Negative 03/21/2019 11:14 AM [facility] Nitrite UA Negative Negative 03/21/2019 11:14 AM [facility] Leukocyte Esterase Trace(A) Negative 03/21/2019 11:14 AM [facility] Urobilinogen UA Negative Negative mg/dL 03/21/2019 11:14 AM [facility] RBC UA >100(A) None Seen, 0-2, 3-5 /HPF 03/21/2019 11:14 AM [facility] WBC UA 21-50(A) None Seen, 0-5 /HPF 03/21/2019 11:14 AM [facility] Bacteria UA 3+(A) None, Trace /HPF 03/21/2019 11:14 AM [facility] Squamous Epithelial Cells UA None Seen None Seen, 0-2 /HPF 03/21/2019 11:14 AM [facility] Renal Epithelial Cells UA 0-2 None Seen, 0-2 /HPF 03/21/2019 11:14 AM [facility] Mucus UA 2+(A) None, 1+ /LPF 03/21/2019 11:14 AM [facility] Hyaline Casts UA >20(A) None Seen, 0-2 /LPF 03/21/2019 11:14 AM [facility] Calcium Oxalate UA Rare Rare, Occasional, Few, None /HPF 03/21/2019 11:14 AM [facility] Amorphous Crystals Moderate Rare, Occasional, Few, Moderate, None /HPF 03/21/2019 11:14 AM [facility] Urine URINE SPECIMEN OBTAINED BY CLEAN CATCH PROCEDURE / Unknown Collection / Unknown 03/21/2019 10:10 AM CDT 03/21/2019 10:23 AM CDT Narrative [facility] - 03/21/2019 11:14 AM CDT Lidia Sanchez DO LAB - URINALYSIS O RDERABLES [facility] [address] [phone] * (ABNORMAL) PTT [facility] (03/21/2019 10:09 AM CDT) APTT 45.7(H) 23.0 - 38.4 Seconds 03/21/2019 10:55 AM [facility] Comment: * Please Note: New therapeutic range for heparin therapy. * Suggested therapeutic range for full dose I.V. heparin therapy for venous thromboembolism is 65 to 103 seconds. Blood BLOOD SPECIMEN / Unknown Lab Venipuncture / Unknown 03/21/2019 10:09 AM CDT 03/21/2019 10:23 AM CDT Lidia Sanchez LAB - COAGULATION ORDERABLES Performing Organization Address [facility] Co de Phone Number [address] [phone] * (ABNORMAL) PT-INR [facility] (03/21/2019 10:09 AM CDT) PT 21.3(H) 12.1 - 14.8 Seconds 03/21/2019 10:54 AM CDT [facility] INR 2.0 See Comment 03/21/2019 10:54 AM T [facility] Comment: The suggested therapeutic range for standard coumadin (warfarin) therapy is an INR of 2.0-3.0. For high-risk patients (Mechanical Mitral Valve Prosthesis, etc.), the suggested prophylactic therapeutic range is an INR of 2.5-3.5. Blood BLOOD SPECIMEN / Unknown Lab Venipuncture / Unknown 03/21/2019 10:09 AM CDT 03/21/2019 10:23 AM CDT Lidia Ahujaardo LAB - COAGULATION ORDERABLES Performing Organization Address [facility]/ZIP Co de Phone Number [address] [phone] * EKG 12-LEAD (03/21/2019 9:55 AM CDT) Only the most recent of2 resultswithin the time period is included. Ventricular Rate 97 BPM [facility] Atrial Rate 97 BPM [facility] MUSE P-R Interval 138 ms [facility] QRS Duration ms 74 ms [facility] Q-T Interval ms 342 ms [facility] MUSE QTC Calculation (Bezet) 434 ms [facility] Calculated P Leupp 66 degrees [facility] Calculated R Leupp 58 degrees [facility] Calculated T Leupp 52 degrees [facility] Interpretation EKG ARTIFACT PRESENT SINUS RHYTHM WITH PREMATURE SUPRAVENTRICULAR COMPLEXES NONSPECIFIC ST AND T WAVE ABNORMALITY ABNORMAL ECG WHEN COMPARED WITH ECG OF 29-AUG-2018 14:30, ARTIFACT IS PRESENT NOW Confirmed by Baljinder Gonzales ([id number]), editor & co founder GURDEEP MARIE ([id number]) on 05/09/2019 11:55:10 AM [facility] MUSE 03/21/2019 9:55 AM CDT 05/09/2019 11:55 AM [employer] An Garrett DO ECG ORDERABLES [facility] MUSE * ECHO HEIDI TRANSESOPHAGEAL (03/07/2019 11:14 AM CDT) Anatomical Region Laterality Modality Echo 03/07/2019 10:0 2 AM CDT Narrative Procedure Note Edna Murphy MD - 03/07/2019 Edilma Parson MD ECHOCARDIOGRAPHY RAD IANT * [place] CYSTOURETHROSCOPY (02/25/2019 11:45 AM CDT) Narrative Eileen Nice APRN-CNP - 02/25/2019 11:45 AM CDT Eielen Nice APRN-CNP ? 02/25/2019 12:11 PM Cystoscopy [...] water insterted, no urine return. Inserted 16 serbian Coude Catheter without any difficulties, clear yellow [...] carcinoma. Report dictated by Negrito Giron DO (vice president regulatory). I, Dr. KEVAN ROACH M.D. have personally [...] carcinoma. Report dictated by Negrito Giron DO (vice president regulatory). I, Dr. KEVAN ROACH M.D. have personally reviewed and interpreted this examination/study. This report was electronically signed by KEVAN ROACH M.D. on12/27/2018 2:20 PM . Edilma Parson MD MR ORDERABLES * CREATININE BLOOD - POCT (IP) [facility] (12/24/2018 11:38 AM CDT) Creatinine POCT 0.98 0.3 - 1.3 mg/dL [facility] POCT TESTING eGFR POCT 60 60 ml/min [facility] POCT TESTING Blood BLOOD SPECIMEN / Unknown 12/24/2018 11:38 AM CDT Edilma Parson MD LAB - POINT OF CARE ORDERABLES [facility] POCT TESTING [address] [phone] * PROC EKG IN CLINIC (11/04/2018 12:31 [...] FOR DICTATION (10/12/2018 5:11 PM CDT) Narrative [facility] - 10/12/2018 5:11 PM CDT Tom Marquez MD ? 10/12/2018 ??5:11 PM ??Electrophysiologic Study and Radiofrequency Ablation ??Date of Procedure: ??10/09/2018 ??Drilling Fluids Specialist: ?Tom Marquez MD ??Procedures Performed: ?1. Comprehensive electrophysiologic study with coronary sinus pacing/recording (84562). ??2. CARTO 3D electroanatomical mapping (94047). ??3. Radiofrequency ablation of cavotricuspid isthmus for treatment of typical atrial flutter (44827). ??5. Comprehensive electrophysiologic follow-up study (following isoproterenol infusion) (46327). ??History of Present Illness: ??Jn Garay??is a [...] a 7-Fr sheath, using fluoroscopic guidance, a [email or web address] deflectable decapolar catheter was advanced to the lateral coronary sinus. ??Through a 8-Fr sheath, a [employer] quadripolar catheter was advanced to the right ventricular apex. ??Through a 6-Fr sheath, a deflectable quadripolar catheter was advanced to the His bundle region. ??Through a 6-Fr sheath, a Yotta280 quadripolar catheter was advanced to the high right atrium. ?? Pacing maneuvers, including incremental pacing, burst pacing, and programmed extra-stimuli, were performed for the purpose of comprehensive electrophysiologic study and arrhythmia induction. ?Mr. Garay presented in sinus rhythm with a baseline cycle length of 890 ms; [place] 170 ms; QRS 85 ms; QT 410 [...] the procedure. Tom Marquez MD [facility]Y [facility]LES [facility] * EP LAB CONSULT (10/12/2018 5:11 PM CDT) Narrative [facility] - 10/12/2018 5:11 PM CDT Tom Marquez MD ? 10/12/2018 ??5:11 PM ??Electrophysiologic Study and Radiofrequency Ablation ??Date of Procedure: ??10/09/2018 ??Drilling Fluids Specialist: ?Tom Marquez MD ??Procedures Performed: ?1. Comprehensive electrophysiologic study with coronary sinus pacing/recording (83891). ??2. CARTO 3D electroanatomical mapping (90891). ??3. Radiofrequency ablation of cavotricuspid isthmus for treatment of typical atrial flutter (70022). ??5. Comprehensive electrophysiologic follow-up study (following isoproterenol infusion) (93338). ??History of Present Illness: ??Jn Garay??is a [...] coronary sinus. ??Through a 8-Fr sheath, a [employer] quadripolar catheter was advanced to the right ventricular apex. ??Through a 6-Fr sheath, a deflectable quadripolar catheter was advanced to the His bundle region. ??Through a 6-Fr sheath, a [id number] quadripolar catheter was advanced to the high right atrium. ?? Pacing maneuvers, including incremental pacing, burst pacing, and programmed extra-stimuli, were performed for the purpose of comprehensive electrophysiologic study and arrhythmia induction. ?Mr. Garay presented in sinus rhythm with a baseline cycle length of 890 ms; [place] 170 ms; QRS 85 ms; QT 410 [...] MD ECHO ORDERABLES Performing Organization Address City/[facility]/ZIP Co de Phone Number [facility] * T4 FREE DIRECT REFLEXED (10/10/2018 3:59 AM CDT) T4 Free 1.07 0.65 - 1.34 ng/dL 10/10/2018 5:36 AM CDT [facility] Blood BLOOD SPECIMEN / Unknown Venipuncture / Unknown 10/10/2018 3:59 AM CDT 10/10/2018 4:17 AM CDT Tom Marquez MD LAB - CHEMISTRY O RDERABLES Performing Organization Address City/[facility]/ZIP Co de Phone Number [facility] [id number] [place] [address] * (ABNORMAL) TSH REFLEX FREE T4 (10/10/2018 3:59 AM CDT) TSH 0.2540(L) 0.35 - 4.94 ulU/mL 10/10/2018 5:03 AM CDT [facility] Blood BLOOD SPECIMEN / Unknown Venipuncture / Unknown 10/10/2018 3:59 AM CDT 10/10/2018 4:17 AM CDT Tom Marquez MD LAB - CHEMISTRY O RDERABLES Performing Organization Address [facility] Co de Phone Number [facility] [address] [place] [address] * MAGNESIUM BLOOD (10/10/2018 3:59 AM CDT) Magnesium 1.9 1.6 - 2.6 mg/dL 10/10/2018 4:41 AM CDT [facility] Blood BLOOD SPECIMEN / Unknown Venipuncture / Unknown 10/10/2018 3:59 AM CDT 10/10/2018 4:17 AM CDT Tom Marquez MD LAB - CHEMISTRY O RDERABLES Performing Organization Address [facility] de Phone Number [facility] [address] [place] [address] * ENDOTRACHEAL TUBE NOTE (10/09/2018 1:20 PM CDT) Narrative Sanjiv Jean-Baptiste MD - 10/09/2018 1:20 PM CDT Dany Dunlap APRN-ABISAI ? 10/09/2018 12:46 PM Endotracheal Tube Placement: ? Patient Location: OR. Intubation Event Date/Time: ??10/09/2018 12:24 PM Procedure: intubation ([id number]). Procedure Section: ?? Sedation: under general anesthesia. [...] DANY DUNLAP, Performed the procedure Additional Comments: Xlfkoa-sxurrevbsa-HOTR and LTA fptwbpfxp-blbxkjpbds-Oouuvjwoc-BBS=. Tube taped. Edu Albert DO GENERAL ANESTHESIA O RDERABLES * PT-INR (10/07/2018 8:25 AM CDT) INR 1.0 0.8 - 1.2 [facility] INSURANCE BILL Comment: ? Reference interval is for non-anticoagulated patients. ?. ? Suggested INR therapeutic range for Vitamin K ? antagonist therapy: ?Standard Dose (moderate intensity ? therapeutic range): ? 2.0 - 3.0 ?Higher intensity therapeutic range ? 2.5 - 3.5 PT 10.4 9.1 - 12.0 sec [employer] INSURANCE BILL Comment:FASTING Blood BLOOD SPECIMEN / Unknown 10/07/2018 8:25 AM CDT 10/07/2018 Narrative Resulting Agency Comment Lab Testing performed at: [facility] [address] [place] [address] ??Formerly [facility] [phone] Tom Marquez MD LAB - COAGULATION ORDERABLES [facility] INSURANCE BILL [address] [place] [address] * BRONCHOSCOPY WITH ENDOSCOPIC BRONCHIAL ULTRASOUND (EBUS) (09/19/2018 9:31 PM CDT) Narrative Jm Agustin MD - 09/19/2018 9:31 PM CDT Jm Agustin MD ? 09/19/2018 ??9:31 PM Everardo Cota MD PROCEDURE/MINOR SURG ICAL ORDERABLES * FINE NEEDLE ASPIRATION (STL) (09/02/2018 2:48 PM CDT) Pathologist [facility] Case Report Medical Cytology Report ? Case: [id number] ? Authorizing Provider: ??Yuli Kirkpatrick MD ?Collected: ? 09/02/2018 02:48 PM ? Ordering Location: ? [facility] ? Received: ?09/03/2018 07:00 AM ? Pathologist: ? Ariel Martinez MD ? Specimens: ?? A) - Lymph Node, 11R (EBUS) ? B) - Lymph Node, 4R (EBUS) ? C) - Lymph Node, Station 7 (EBUS) ? 09/05/2018 11:29 AM [facility] Specimen Adequacy Adequate cellularity for evaluation. 09/05/2018 11:29 AM [facility] Final Diagnosis Lymph node, 11R (A): - Insufficient tissue for evaluation Lymph node, 4R (B): - Insufficient tissue for evaluation Lymph node, station 7 (C): - Negative for malignancy - Lymphoid material 09/05/2018 11:29 AM [facility] Clinical History History of carcinoma 09/05/2018 11:29 AM [facility] Gross Description A. 1 cell-block from 35 ml collection fluid. B.1 cell -block from 30 ml collection fluid. C. 1 cell-block from 35 ml collection fluid. 09/05/2018 11:29 AM [facility] Microscopic Description (A): No tissue is present. (B): No tissue is present. (C): Review of cell block reveals small fragments of lymphoid material consisting primarily of small, mature lymphocytes. 09/05/2018 11:29 AM [facility] Disclaimer The performance characteristics of all immunohistochemical and indirect immunofluorescence stains (if any) cited in this report were determined by the Histopathology Laboratory of [facility]. Some of these tests rely on the use of analyte-specific reagents and are subject to specific labeling requirements by the US Food and Drug Administration. Such tests were developed by the Histology Laboratory of [facility] and have not been cleared or approved [...] attending (teaching) pathologist. 09/05/2018 11:29 AM CDT [facility] Embedded Images 09/05/2018 11:29 AM CDT [facility] Pathology/Cytology ENTIRE LYMPH NODE / Unknown Collection / Unknown 09/02/2018 2:48 PM CDT 09/03/2018 7:00 AM CDT Miscellaneous samples (specimen) ENTIRE LYMPH NODE / Unknown 09/02/2018 2:48 PM CDT 09/03/2018 7:00 AM CDT Miscellaneous samples (specimen) ENTIRE LYMPH NODE / Unknown 09/02/2018 2:48 PM CDT 09/03/2018 6:59 AM CDT Yuli Kirkpatrick MD LAB - PATHOLOGY/CYTO LOGY ORDERABLES [facility] [address] [phone] * BRONCHOSCOPY (09/02/2018 1:09 PM CDT) Report Endoscopy POC [facility] Advanced Diagnostic Bronchoscopy and Interventional Pulmonary Service __ _ Patient Name: Jn Garay ? Procedure Date: 09/02/2018 1:09 PM Date of : 1960 ?Attending MD: Yuli Kirkpatrick MD Age: 58 ? Room: Bronch Suite ? __ _ Providers: ?Yuli Kirkpatrick MD, Hodan Castillo (Fellow), Jose Elias ?DO Kobe (Fellow), Joanne Ornelas RRT, Alix ?Edilson CEMETERY LABORER, Tint Layer, Dori Ellis MD (Fellow) Referring : ? [...] 1:09 PM Number of Addenda: 0 ? [facility] ? [address] [place] [address] [facility] [employer] 09/02/2018 1:09 PM CDT Dori Ellis MD RESPIRATORY THERAPY ORDERABLES [facility] Care Teams Behavioral Technician Relationship Specialty Start Date End Date Iona Torres MD [address] [place] [address] [address] [place] [address] PCP - General 07/04/18
[2024-07-15 15:04] LABS: Basophils Percent Auto 0.6 % (0.2-1.2); Eosinophils Absolute Auto 0.2 K/mm3 (0-0.3); Eosinophils Percent Auto 4.4 % (0-4.4); Hematocrit 37.6 % (42.0-52.0); Hemoglobin 11.5 g/dL (14.0-18.0); Lymphocytes Absolute Auto 1.67 K/mm3 (0.9-3.2); Lymphocytes Percent Auto 32.3 % (18.3-44.2); Mean Corpuscular HGB Conc 30.6 g/dl (32-36); Mean Corpuscular Hemoglobin 26.5 pg (26-34); Mean Corpuscular Volume 86.6 fl (80-100); Mean Platelet Volume 10.3 fl (7.4-10.4); Monocytes Absolute Auto 0.4 K/mm3 (0.1-0.6); Neutrophils Absolute Auto 2.9 K/mm3 (1.3-6.7); Neutrophils Percent Auto 55.7 % (45.5-73.1); Platelet Count Result 172 k/mm3 (150-375); Red Blood Count 4.34 M/mm3 (4.6-6.20); Red Cell Distribution Width 16.8 % (11.5-14.5); White Blood Count 5.2 K/mm3 (4.5-10.0)
[2024-07-15 15:18] LABS: Alanine Aminotransferase 10 U/L (6-50); Albumin Level 3.7 g/dL (3.5-5.1); Alkaline Phosphatase 142 U/L (38-126); Anion Gap 9 mmol/L (4-12); Aspartate Amino Transferase 19 U/L (17-59); Bilirubin,Total 0.4 mg/dL (0.2-1.3); Blood Urea Nitrogen 10 mg/dL (9-20); Calcium 7.4 mg/dL (8.4-10.2); Carbon Dioxide 25 mmol/L (22-30); Chloride 104 mmol/L (98-107); Estimated CRCL calculation 91 ml/min; Estimated Glomerular Filt Rate > 60; Glucose 104 mg/dL (65-110); Potassium 4.2 mmol/L (3.4-5.0); Sodium 138 mmol/L (137-145)
[2024-07-15 15:42] VITALS: BP 129/81; PULSE 64; RESP 18; O2SAT 98
[2024-07-15 16:50] LABS: Add Urine Microscopic? NO; Appearance Urine Clear (Clear); Bilirubin Urine Negative (Negative); Blood Urine Negative (Negative); Color Urine Yellow (Yellow); Glucose Urine UA Negative (Negative); Ketones Urine Negative (Negative); Leukocyte Esterase Ur Negative LEU/UL (Negative); Nitrate Urine Negative (Negative); Protein Urine Negative (Negative); Specific Grav Ur 1.012 (1.001-1.035); Urobilinogen Urine 0.2 mg/dL (<2.0)
== END 2024-07-15 17:45 | disposition home or self-care (01) ==
PROVIDERS: Nurse Practitioner Family; Emergency Provider Emergency Medicine; PCP Physician Assistant
DX: M79.605 Pain in left leg (principal); C34.90 Malignant neoplasm of unspecified part of unspecified bronchus or lung; C79.51 Secondary malignant neoplasm of bone; Z79.01 Long term (current) use of anticoagulants; J96.11 Chronic respiratory failure with hypoxia; Z99.81 Dependence on supplemental oxygen; N40.0 Benign prostatic hyperplasia without lower urinary tract symptoms; D64.9 Anemia, unspecified; Z86.711 Personal history of pulmonary embolism; Z86.718 Personal history of other venous thrombosis and embolism; F41.9 Anxiety disorder, unspecified; M54.50 Low back pain, unspecified; G89.29 Other chronic pain
CPT/HCPCS: 36415; 80053; 81003; 85025; 93971; 99284

== ENCOUNTER 2024-09-10 05:54 | Emergency (ER) | payer MEDICARE, MEDICAID, SELFPAY ==
[2024-09-10] VITALS (16 sets, daily range): BP systolic 96–129; BP diastolic 54–91; PULSE 102–125; RESP 13–33; TEMP 37.3–38.6; O2SAT 92–100
--- NOTE | ~2024-09-10 | XR_ITS ---
EXAMINATION: XR chest 2V DATE: 09/10/2024 06:42 INDICATION: Shortness of breath. TECHNIQUE: Frontal and lateral views of the chest were obtained. COMPARISON: Chest single view 06/07/2024, chest CT 06/25/2024 FINDINGS: There is volume loss of right hemithorax. There is a right perihilar mass. There are airspa ce opacities in right perihilar region. There are small pleural effusions. No pneumothorax. The heart size is normal. Median sternotomy wires are noted. There is a left internal jugular port with tip in superior vena cava. Epidural electrodes are noted. There are scattered sclerotic lesions of bone. IMPRESSION: 1. Chronic right perihilar mass with right lung volume loss, consistent with radiation fibrosis. 2. Worsened airspace opacities in right perihilar region, consistent with atelectasis/scarring versus pneumonia. 3. Small pleural effusions with worsening on the right. 4. Sclerotic bone lesions, consistent with metastatic disease. Reviewed, dictated and finalized at location A. IMPRESSION: 1. Chronic right perihilar mass with right lung volume loss, consistent with ra diation fibrosis. 2. Worsened airspace opacities in right perihilar region, consistent with atele ctasis/scarring versus pneumonia. 3. Small pleural effusions with worsening on the right. 4. Sclerotic bone lesions, consistent with metastatic disease.
--- NOTE | 2024-09-10 06:14 | ECG_ITS ---
Test Date: 2024-09-10 06:03:35 Measurements Intervals [place] Rate: 115 P: 68 IA: 165 QRS: 66 QRSD: 78 T: 52 QT: 269 QTc: 373 Interpretive Statements PROBABLY SINUS TACHYCARDIA. BASELINE ARTIFACT LIMITS INTERPRETATION NONSPECIFIC ST & T-WAVE ABNORMALITY ABNORMAL RHYTHM ECG Compared to ECG 06/05/2024 14:17:36 TACHYCARDIA NOW PRESENT Electronically Signed On 09-10-2024 12:56:40 CDT by Rafael Vicente M.D.
[2024-09-10] MEDS: ACETAMINOPHEN 500 MG TABLET 1000 MG PO (06:20)
[2024-09-10 06:31] LABS: Basophils Percent Auto 0.1 % (0.2-1.2); Eosinophils Percent Auto 0.1 % (0-4.4); Hematocrit 39.1 % (42.0-52.0); Hemoglobin 11.5 g/dL (14.0-18.0); Immature Granulocyte Absolute 0.09 K/mm3 (0.00-0.031); Immature Granulocyte Percent A 0.6 % (0-0.5); Immature Platelet Fraction Pct 8.1 % (0.9-11.2); Lymphocytes Absolute Auto 1.21 K/mm3 (0.9-3.2); Lymphocytes Percent Auto 8.7 % (18.3-44.2); Mean Corpuscular HGB Conc 29.4 g/dl (32-36); Mean Corpuscular Hemoglobin 27.4 pg (26-34); Mean Corpuscular Volume 93.3 fl (80-100); Mean Platelet Volume 11.2 fl (7.4-10.4); Monocytes Absolute Auto 0.4 K/mm3 (0.1-0.6); Monocytes Percent Auto 2.7 % (2.6-8.5); Neutrophils Absolute Auto 12.3 K/mm3 (1.3-6.7); Neutrophils Percent Auto 87.8 % (45.5-73.1); Platelet Count Result 77 k/mm3 (150-375); Red Blood Count 4.19 M/mm3 (4.6-6.20); Red Cell Distribution Width 19.5 % (11.5-14.5)
[2024-09-10 06:39] LABS: Alanine Aminotransferase 12 U/L (6-50); Albumin Level 3.6 g/dL (3.5-5.1); Alkaline Phosphatase 102 U/L (38-126); Anion Gap 3 mmol/L (4-12); Aspartate Amino Transferase 21 U/L (17-59); Bilirubin,Total 0.3 mg/dL (0.2-1.3); Blood Urea Nitrogen 12 mg/dL (9-20); Calcium 8.9 mg/dL (8.4-10.2); Carbon Dioxide 36 mmol/L (22-30); Chloride 102 mmol/L (98-107); Estimated CRCL calculation 84 ml/min; Estimated Glomerular Filt Rate > 60; Glucose 111 mg/dL (65-110); Potassium 4.8 mmol/L (3.4-5.0); Sodium 141 mmol/L (137-145)
[2024-09-10 06:45] LABS: INR 1.6; Prothrombin Time 19.3 Seconds (11.1-14.7)
[2024-09-10 06:46] LABS: Partial Thromboplastin Time 40.7 Seconds (22.3-36.8)
[2024-09-10 06:57] LABS: Anisocytosis 1+; Platelet Estimate Slightly Decreased (Adequate); Schistocytes None Seen
[2024-09-10 07:02] LABS: Influenza A QL RT-PCR Negative (Negative); Influenza B QL RT-PCR Negative (Negative); RSV RNA, RT-PCR Negative (Negative); SARS-CoV-2 RNA PCR Negative (Negative)
--- OUTSIDE RECORDS SUMMARY | 2024-09-10 07:13 | XMS_ITS | Encounter Summary ---
[facility] Organization [facility] Address [address] [place] [address] Care Team Providers Care Detective Name Role Phone Nathen Vicente MD Primary Care Provider [phone] Encounter Details Date Type Department Care Team (Late st Contact Info) Description 11/19/2018 Chart Note [facility] Rad[facility] [address] [place] [address] [place] [address] [place] [address] Social History Tobacco Use Types Packs/Day Years Used Date Smoking Tobacco: Former Cigarettes 2 40 0 06/25/1978 - 06/25/2018 Smokeless Tobacco: Current Alcohol Use Standard Drinks/Week Comments No 0 (1 standard drink = 0.6 oz pur e alcohol) Sex and Gender Information Value Date Recorded Sex Assigned at Male 07/02/2023 2:30 PM FIVE PIECE EXPANSION MAKER HAND Legal Sex Male 1:30 PM FIVE PIECE EXPANSION MAKER HAND Gender Identity Male 07/02/2023 2:30 PM FIVE PIECE EXPANSION MAKER HAND Sexual Orientation Bisexual 07/02/2023 2: 30 PM FIVE PIECE EXPANSION MAKER HAND Sexual Orientation Straight 07/02/2023 2: 30 PM FIVE PIECE EXPANSION MAKER HAND documented as of this encounter Plan of Treatment Upcoming Encounters Date Type Department Care Team (Late st Contact Info) Description 10/02/2024 1:00 PM CDT Office Visit [facility] Oncology and Hematology - [place]ant [address] [facility] [address] [place] [address] Jefferson Baez MD [address] [facility] [address] [place] [address] documented as of this encounter Visit Diagnoses Not on filedocumented in this encounter Additional Health Concerns Infection Onset Date Last Indicated Resolved Time R/O C. diff 06/23/2022 06/23/2022 documented as of this encounter Care Teams Detective Relationship Specialty Start Date End Date Nathen Vicente MD [address] [place] [address] [place] [id number] PCP - General Family Practice 08/15/24 documented as of this encounter
--- OUTSIDE RECORDS SUMMARY | 2024-09-10 07:13 | XMS_ITS | Referral Summary ---
Author Organization [facility] Address [address] [place] [address] Care Team Providers Care Straightening Machine Feeder Name Role Phone Camden Bran Primary Care Provider + Edilma Lubin MOLD REPAIRER Unavailable [phone] Allergies Active Allergy Reactions Criticality Noted Date Comments Venom-Honey Bee Anaphylaxis High 08/29/2018 Wasp Venom Anaphylaxis High 08/29/2018 Wasp Venom Protein Starter Kit Anaphylaxis High 08/16 Medications triamcinolone (KENALOG) 0.1 % cream as needed Active pregabalin (LYRICA) 225 mg capsule Take 1 capsule (225 mg total) by mouth 2 (two) times a day 4 Active cholecalciferol (VITAMIN D-3) 96036 unit tablet Take 1 tablet (50,000 Units [...] system 07/25/2023 Acute respiratory failure with hypoxia Tremor 02/14/2023 Acute sinusitis 02/14/2023 Upper respiratory infection 12/26/2022 Malignant neoplasm of lung 10/30/2022 Overview (09/24/2023): metastatic non-small cell cancer. but bone cancer metastatic non-small cell cancer. 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 Gender Identity Male 03/18/2024 2:40 PM CDT Sexual Orientation Straight 03/18/2024 2: 40 PM CDT Last Filed Vital Signs Vital Sign Reading Time Taken Comments Blood Pressure 98/57 04/16/2024 8:27 AM CDT Pulse 96 04/16/2024 8:27 AM CDT Temperature 36.4 C (97.5 F) 02/28/2024 12:06 PM CDT Respiratory Rate 20 04/16/2024 8:27 AM CDT Oxygen Saturation 99% 04/16/2024 8:27 AM CDT Inhaled Oxygen Concentration - - Weight 92.1 kg (203 lb) 02/28/2024 7:32 AM CDT Height 182.9 cm (6') 02/28/2024 7:32 AM CDT Body Mass Index 27.53 02/28/2024 7:32 AM CDT Plan of Treatment Not on file Medical Devices Implanted Type Area Topper Packer Device Identifier Shelf Expiration Date Model / Serial / Lot Medtronic Inc Ascenda 4fr .5mm 114cm 86cm 2 Piece Connector Pin Flexible Closed [id number] - [id number] Implanted:Qty: 1 on 10/11/2023 by Gerry Trivedi MD at [facility] Left: Abdomen Medtronic Inc 09/19/2025 [id number] / / [id number] Medtronic [employer] X Pump Infusion Programmable Ulp Ami 40ml Volume Synchromed Iii 8667-40 - [id number] - [id number] Implanted:Qty: 1 on 10/11/2023 by Gerry Trivedi MD at [facility] Left: Abdomen [employer] X 03/01/2025 8667-40 / [id number] / Med[employer]onic Inc Tyrx 3.35x3in Large Envelope Absorbable Polyarylate Minocycline [id number] - [id number] Implanted:Qty: 1 on 10/11/2023 by Gerry Trivedi MD at [facility] Left: Abdomen Medtronic Inc 05/22/2024 [id number] / / [id number] Medtronic Inc Vectris 5mm 75cm 1x8 Electrode Compact Mri Lead Neurostimulator [id number] - [id number] Implanted:Qty: 1 on 02/28/2024 by Gerry Trivedi MD at [facility] N/A: Back Medtronic Inc 11/19/2027 977 [id number] / / [id number] Medtronic Inc Generator Pulse Inceptiv Sys Stm Electrcl Analges Implant [id number] - [id number] - [id number] Implanted:Qty: 1 on 02/28/2024 by Gerry Trivedi MD at [facility] N/A: Back Med[employer]onic Inc 977 119 / [id number] / Med[employer]onic Inc Vectris 5mm 75cm 1x8 Electrode Compact Mri Lead Neurostimulator [id number] - [id number] Implanted:Qty: 1 on 02/28/2024 by Gerry Trivedi MD at [facility] N/A: Back Med[employer]onic Inc 05/28/2027 977 [id number] / / [id number] Medtronic Inc Envelope Absrb 2.7x2.5in Antibacterial Tyrx Medium Strl [id number] - [id number] Implanted:Qty: 1 on 02/28/2024 by Gerry Trivedi MD at [facility] N/A: Back Med[employer]onic Inc 10/06/2024 NMR [id number] / / [id number] Procedures Procedure Name Priority Date/Time Associated Diagnosis [...] agrees with it. ACC# Date Time Exam [id number] October 23, 2016 10:41:[id number] Colonography Dx w/o ACC# Date Time Exam [id number] October 23, 2016 10:41:[address] Colonography Dx w/o EXAMINATION: CT colonography [...] ZAPATA M.D. on Oct 23 2016 4:41P [id number] Procedure Note Miscellaneous, Not In File / Provider, MD Kaye - 11/11/2016 MARTA ZAPATA M.D. FLOYD BOYLE MD FINAL REPORT The radiology attending physician has personally reviewed this study, and has reviewed and/or edited this written report and agrees with it. ACC# Date Time Exam [id number] October 23, 2016 10:41:[id number] Colonography Dx w/o ACC# Date Time Exam [id number] October 23, 2016 10:41:[id number] Colonography Dx w/o EXAMINATION: CT colonography [...] ZAPATA M.D. on Oct 23 2016 4:41P [id number] us Not In File Miscellaneous IMG CT PROCEDURES Mckenzie l Result from Last 3 Months or Most Recently Relevant to Health Maintenance Insurance [address] [place] [address] [facility] MEDICARE HMO [employer] MEDICARE HMO Care Teams Straightening Machine Feeder Relationship Specialty Start Date End Date Camden Bran PA [address] [place] [address] PCP - General Internal Medicine 04/16/24 [place] [address] [facility] [address] [place] [address] Nurse Practitioner Community Service Specialist 04/16/24
--- OUTSIDE RECORDS SUMMARY | 2024-09-10 07:13 | XMS_ITS | Encounter Summary ---
Author Organization [facility] Address [address] [place] [address] Care Team Providers Care Veterinary Medicine Teacher Name Role Phone Iona Saucedo MD Primary Care Provider [phone] Nathen Vicente MD Primary Care Provider Encounter Details Date Type Department Care Team (Late st Contact Info) Description 04/16/[address] [facility] [address] [place], [place] [id number] Felix Vergara MD [address] [address] Social History Tobacco Use Types Packs/Day Years [...] catheter documented in this encounter Care Teams Veterinary Medicine Teacher Relationship Specialty Start Date End Date Iona Saucedo MD [address] [place] [address] PCP - General FAMILY PRACTICE 12/02/19 02/11/24 Nathen Vicente MD [address] [place] [address] PCP - General HOSPITALIST 02/12/24 documented as of this encounter
--- OUTSIDE RECORDS SUMMARY | 2024-09-10 07:13 | XMS_ITS | Encounter Summary ---
Author Organization [facility] [employer] [facility] Address [address] [place] [address] Care Team Providers Care Oxygen Therapy Technician Name Role Phone Nathen Vicente MD Primary Care Provider [phone] Encounter Details Date Type Department Care Team (Late st Contact Info) Description 09/08/2024 Orders Only [facility] Oncology and Hematology - Shant [address] [facility] [address] [place] [address] Jefferson Baez MD [address] [facility] [address] [place] [address] Non-small cell cancer of right [...] Sex Assigned at Male 07/02/2023 2:30 PM SECURITIES UNDERWRITER Legal Sex Male 1:30 PM SECURITIES UNDERWRITER Gender Identity Male 07/02/2023 2:30 PM SECURITIES UNDERWRITER Sexual Orientation Bisexual 07/02/2023 2: 30 PM SECURITIES UNDERWRITER Sexual Orientation Straight 07/02/2023 2: 30 PM SECURITIES UNDERWRITER documented as of this encounter Plan of Treatment Upcoming Encounters Date Type Department Care Team (Late st Contact Info) Description 10/02/2024 1:00 PM CDT Office Visit [facility] Oncology and Hematology [facility] [address] [facility] [address] [place] [address] Jefferson Baez MD [address] [facility] [address] [place] [address] documented as of this encounter Visit Diagnoses Diagnosis 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 diff 06/23/2022 06/23/2022 documented as of this encounter Care Teams Oxygen Therapy Technician Relationship Specialty Start Date End Date Nathen Vicente MD [address] [facility] [place] [phone] PCP - General Family Practice 08/15/24 documented as of this encounter
--- OUTSIDE RECORDS SUMMARY | 2024-09-10 07:13 | XMS_ITS ---
Author Organization [facility] Address [address] [place] [address] Care Team Providers Care Senior Bioinformatics Scientist Name Role Phone Camden Bran Primary Care Provider + Edilma Lubin MATERIAL DISPOSITION INSPECTOR Unavailable [phone] Active Problems Problem Noted Date Diagnosed Date [...] exertion 06/09/2016 Abnormal chest xray 06/09/2016 Current Treatment and Therapy Plans No current plan information found. Past Treatment and Therapy Plans No past plan information found. Lifetime Dose Tracking * Chemical Lifetime Dose Automatic Entry Manual Entr y Fluoro Time 4.06 minutes 4.06 minutes 0 minutes Air kerma at the reference point (Ka,r) 49.19 mGy 4 9.19 mGy 0 mGy
--- OUTSIDE RECORDS SUMMARY | 2024-09-10 07:14 | XMS_ITS | Clinical Summary ---
Author Organization [facility] Address [address] [place] [address] Care Team Providers Care Clinical Engineering Director Name Role Phone Nathen Vicente MD Primary Care Provider [phone] Allergies Active Allergy Reactions Criticality Noted Date [...] by mouth every 6 hours as needed. 019 Active triamcinolone acetonide (KENALOG) 0.1 % Cream 020 Active oxyCODONE (OxyCONTIN) 30 mg Controlled Release 12 hour crush resistant tablet Take 60 mg by mouth every 12 hours. Active ibandronate (BONIVA) 150 mg tablet 11/2021 MEDICATION IS ON HOLD Active naloxone (Narcan) 4 mg/spray [place], Non-Aerosol Narcan 4 mg/actuation nasal spray 1 [...] each cycle. 12 Tablet 4 024 Active Xarelto 20 mg TabletIndicatio ns:Acute saddle pulmonary embolism without acute cor pulmonale (CMS/HCC) TAKE 1 TABLET BY MOUTH DAILY WITH SUPPER 30 Tablet 3 024 Active megestroL (MEGACE) 400 mg/10 mL (40 mg/mL) suspension Take 10 mL (400 mg) by mouth daily. 240 mL 1 025 Active ondansetron (ZOFRAN ODT) 8 mg Tablet, Rapid Dissolve DISSOLVE 1TAB ON TOP TONGUE THEN SWALLOW WITH SALIVA EVERY 8 HOURS NEEDED FOR NAUSEA OR VOMITING 30 Tablet 1 025 Active budesonide (PULMICORT RESPULE) 0.5 mg/2 mL Suspension for Nebulization INHALE 1 VIAL TWICE A DAY MIXED WITH ALBUTEROL X10 DAYS. DX : J44.9 (COPD) 60 mL 3 025 Active albuterol (PROVENTIL,VENT ADIS) 2.5 mg /3 mL (0.083 %) Solution for Nebulization INHALE 3 ML BY INHALATION EVERY 6 HOURS NEEDED FOR SHORTNESS OF BREATH OR WHEEZING 375 mL 3 025 Active albuterol (PROVENTIL,VENT ADIS) 2.5 mg /3 mL (0.083 %) Solution for Nebulization INHALE 3 ML BY INHALATION EVERY 6 HOURS NEEDED FOR SHORTNESS OF BREATH OR WHEEZING 375 mL 3 024 2024 Discontinued budesonide (PULMICORT RESPULE) 0.5 mg/2 mL Suspension for Nebulization INHALE ONE VIAL TWICE A DAY MIXED W/ ALBUTEROL X14 DAYS. DX : J44.9 (COPD) 60 mL 3 024 2024 Discontinued ondansetron (ZOFRAN ODT) 8 mg Tablet, Rapid Dissolve DISSOLVE 1TAB ON TOP TONGUE THEN SWALLOW WITH SALIVA EVERY 8 HOURS NEEDED FOR NAUSEA OR VOMITING 30 Tablet 1 025 2024 Discontinued Active Problems Patient Care Coordination No te Formatting of this note migh t be different from the original. Kieran Og MD--Laborer Airport Maintenance ([facility] @ ) Problem Noted [...] radiation therapy 04/17/2021 Chronic pain syndrome 04/17/2021 terminal operations supervisor prescription opiate use 04/17/2021 Acute saddle pulmonary embolism without acute co r pulmonale 02/11/2019 Non-small cell cancer of right lung 07/16/2018 Cancer Staging:Clinical:Stage IV(cM1) - Unsigned Encounters Date Type Department Care Team Description 09/08/2024 Refill [facility] Pulmonology [facility] [address] [place] [address] Orlando Vela MD 09/08/2024 Orders Only [facility] Oncology and Hematology - [place] [address] [place] [address] Jefferson Baez MD Non-small cell cancer of right lung ([facility]/HCC) 09/03/2024 External Device Data STL ABSTRACTION Provider, Abstract 09/01/2024 Orders Only [facility] - [address] [place] [phone] Jefferson Baez MD Non-small cell cancer of right lung (CMS/HCC) 08/27/2024 Orders Only [facility] - [address] [place] [address] Jefferson Baez MD 08/26/2024 External Device Data STL ABSTRACTION Provider, Abstract 08/26/2024 External Device Data STL ABSTRACTION Provider, Abstract 08/25/2024 Orders Only [facility] - [address] [place] [address] Jefferson aBez MD Non-small cell cancer of right lung (CMS/HCC) 08/23/2024 Refill [facility] - [address] [place] [address] Jefferson Baez MD 08/21/2024 Orders Only [facility] - [address] [place] [address] Jefferson Baez MD 08/21/2024 Abstract [facility] - [place] [address] [place] [id number] Jefferson Baez MD 08/18/2024 Orders Only [facility] - [address] [place] [address] Jefferson Baez MD Non-small cell cancer of right lung (CMS/HCC) 08/15/2024 9:45 AM CONVEYOR INSTALLER Office Visit [facility] - [address] [place] [address] Jefferson Baez MD Chronic anemia (Primary Dx); Non-small cell cancer of right lung (CMS/HCC); Hypothyroidism, unspecified type; Anemia due to chemotherapy 08/11/2024 Orders Only [facility] - [place] [address] [place] [phone] Jefferson Baez MD Non-small cell cancer of right lung (CMS/HCC) 08/05/2024 External Device Data STL ABSTRACTION Provider, Abstract 08/04/2024 Orders Only [facility] - [address] [place] [address] Jefferson Baez MD Non-small cell cancer of right lung (CMS/HCC) 07/29/2024 Refill [facility] - [address] [place] [address] Jefferson Baez MD 07/28/2024 Orders Only [facility] - [address] [place] [address] Jefferson Baez MD Non-small cell cancer of right lung (CMS/HCC) 07/21/2024 Orders Only [facility] - [address] [place] [address] Jefferson Baze MD Non-small cell cancer of right lung (CMS/HCC) 07/14/2024 Orders Only [facility] - [place] [place] [address] Jefferson Baez MD Non-small cell cancer of right lung (CMS/HCC) 07/10/2024 Telephone [facility] Pulmon[facility] [address] [place] [address] Orlando Vela MD Information 07/09/2024 External Device Data STL ABSTRACTION Provider, Abstract 07/09/2024 External Device Data STL ABSTRACTION Provider, Abstract 07/08/2024 Telephone [facility] [address] [place] [phone] Orlando Vela MD Results (CT chest); Needs Orders Written (Airway Clearance vest) 07/07/2024 Orders Only [facility] [address] [place] [address] Jefferson Baez MD Non-small cell cancer of right lung (CMS/HCC) 07/02/2024 9:15 AM CONVEYOR INSTALLER Office Visit [facility] [address] [place] [address] Jefferson Baez MD Non-small cell cancer of right lung (CMS/HCC) (Primary Dx); Prostate cancer screening 07/02/2024 External Device Data STL ABSTRACTION Provider, Abstract 07/02/2024 Telephone [facility] [address] [place] [address] Jefferson Baez MD Dye Study 07/02/2024 Orders Only [facility] [address] [place] [address] Jefferson Baez MD 07/02/2024 Telephone [facility] [address] [place] [address] Orlando Vela MD Insurance Issues (Out of state, cannot do video visit) 07/01/2024 Telephone [facility] - [place] [address] [place] [address] concerns/Results 06/30/2024 [facility] - [address] [place] [address] Jefferson Baez MD Non-small cell cancer of right lung (CMS/HCC) 06/27/2024 Orders Only [facility] - [address] [place] [address] Jefferson Baez MD 06/26/2024 Telephone [facility] [address] [place] [address] Orlando Vela MD Results (CT chest); Wants Appointment 06/26/2024 [facility] - [address] [place] [address] Jefferson Baez MD 06/25/2024 Refill [facility] - [place] [place] [address] Jefferson Baez MD 06/24/2024 External Device Data STL ABSTRACTION Provider, Abstract 06/23/2024 [facility] - [address] [place] [address] Jefferson Baez MD Non-small cell cancer of right lung (CMS/HCC) 06/16/2024 Orders [facility] - [address] [place] [address] Jefferson Baez MD Non-small cell cancer of right lung (CMS/HCC) from Last 3 Months Immunizations Immunization Administration Dates Next Due ([employer])(12 YR UP) COVID-19 VACCINE - EMERGENCY USE AUTHORIZATION, MRNA, [id number](PF) 30 MCG/0.3 ML IM SUSP 09/16/2020,08/16/2020 Influenza [...] Sex Assigned at Male 07/02/2023 2:30 PM CONVEYOR INSTALLER Legal Sex Male 1:30 PM CONVEYOR INSTALLER Gender Identity Male 07/02/2023 2:30 PM CONVEYOR INSTALLER Sexual Orientation Bisexual 07/02/2023 2: 30 PM CONVEYOR INSTALLER Sexual Orientation Straight 07/02/2023 2: 30 PM CONVEYOR INSTALLER Last Filed Vital Signs Vital Sign Reading Time Taken Comments Blood Pressure 131/80 08/15/2024 9:52 AM CONVEYOR INSTALLER Pulse 100 08/15/2024 9:52 AM CONVEYOR INSTALLER Temperature 36.2 C (97.1 F) 08/15/2024 9:52 AM CONVEYOR INSTALLER Respiratory Rate 15 08/15/2024 9:52 AM CONVEYOR INSTALLER Oxygen Saturation 96% 08/15/2024 9:52 AM CONVEYOR INSTALLER Inhaled Oxygen Concentration - - Weight 93.3 kg (205 lb 9.6 oz) 08/15/2024 9:52 A M CONVEYOR INSTALLER Height 185.4 cm (6' 1 ) 04/23/2024 11:38 AM CONVEYOR INSTALLER Body Mass Index 27.13 04/23/2024 11:38 AM CONVEYOR INSTALLER Plan of Treatment Upcoming Encounters Date Type Department Care Team (Late st Contact Info) Description 10/02/2024 1:00 PM CDT Office Visit [facility] and [facility]ology - [place] [address] [facility] [address] [place] [address] Jefferson Baez MD [address] [facility] [address] [place] [address] Health Maintenance Due Date Last [...] exists Pre-Diabetes and Diabetes Screening 05/21/2024 05/21/2021 [place] ([place]) Preventative Visit/Annual Wellness Visit 06/18/2024 01/23/2024 Medical Devices Implanted Type Area Master Control Supervisor Device Identifier Shelf Expiration Date Model / Serial / Lot Clip Ligating Horizon Sm Ti [id number] - Csc - [id number] Implanted:Qty: 1 on 05/20/2021 by Bandar Alberto MD at [facility] Clip N/A: Chest [employer] 10/25/2025 [id number] / / [id number] Clip Ligating Horizon Med Ti [id number] - Csc - [id number] Implanted:Qty: 1 on 05/20/2021 by Bandar Alberto MD at [facility] Clip N/A: Chest [employer]LE[employer]- WECK CLOSURE SYS 11/22/2025 [id number] / / [id number] Patch Pericardial 9x14 C0914 - [id number] Implanted:Qty: 1 on 05/20/2021 by Bandar Alberto MD at [facility] Graft N/A: Heart [employer] [id number] 05/22/2023 [id number] / / [id number] Hemostat Maco Surg Mph Pwd 3gm [id number] - [id number] Implanted:Qty: 1 on 05/20/2021 by Bandar Alberto MD at [facility] Hemostatic N/A: Chest [employer] [id number] 12/13/2025 [id number] / / [id number] Spinal Hardware Procedures Procedure Name Priority Date/Time Associated Diagnosis Comments CBC WITH DIFFERENTIAL Routine 08/27/2024 4:05 PM CDT BASIC METABOLIC PANEL Routine 08/27/2024 4:01 PM CDT CBC WITH DIFFERENTIAL Routine 08/15/2024 1:55 PM CONVEYOR INSTALLER IRON, TIBC, AND PERCENT SATURATION Routine 08/15/2024 9:51 AM CONVEYOR INSTALLER CBC WITH DIFFERENTIAL Routine 07/18/2024 9:32 AM CONVEYOR INSTALLER XR PORT CONTRAST INJECT W FLUORO Routine 07/11/2024 11:02 AM CONVEYOR INSTALLER COMPREHENSIVE METABOLIC PANEL Routine 07/02/2024 3:57 PM CONVEYOR INSTALLER CBC WITH DIFFERENTIAL Routine 07/02/2024 3:[address] CHEST W CONTRAST Routine 06/25/2024 1 :01 PM CONVEYOR INSTALLER IRON PANEL Routine 06/20/2024 11:09 AM CONVEYOR INSTALLER VITAMIN B12 LEVEL Routine 06/20/2024 10: 54 AM CONVEYOR INSTALLER CBC WITH DIFFERENTIAL Routine 06/20/2024 10:22 AM CONVEYOR INSTALLER HEMOGLOBIN A1C Routine 05/21/2021 4:14 AM CONVEYOR INSTALLER from Last 3 Months or Most Recently Relevant to Health Maintenance Results * CBC WITH DIFFERENTIAL (08/27/2024 4:05 PM CDT) Only the most recent of5 resultswithin the time period is included. Blood us Jefferson Baez MD HEMATOLOGY ORDERABLES Final Res ult * BASIC METABOLIC PANEL (08/27/2024 4:01 PM CDT) Blood us Jefferson Baez MD CHEMISTRY ORDERABLES Final Resu lt * IRON, TIBC, AND PERCENT SATURATION (08/15/2024 9:51 AM CONVEYOR INSTALLER) Blood us Jefferson Baez MD CHEMISTRY ORDERABLES Final Resu lt * XR PORT CONTRAST INJECT W FLUORO (07/11/2024 11:02 AM CONVEYOR INSTALLER) Anatomical Region Laterality Modality Other Result Tanner Baez MD DIAGNOSTIC IMAGING ORDERABLES F inal Result * COMPREHENSIVE METABOLIC PANEL (07/02/2024 3:57 PM CONVEYOR INSTALLER) Blood us Jefferson Baez MD CHEMISTRY ORDERABLES Final Resu lt * CT CHEST W CONTRAST (06/25/2024 1:01 PM CONVEYOR INSTALLER) Anatomical Region Laterality Modality Chest Computed Tomogra phy us Jefferson Baez MD CT ORDERABLES Final Result * IRON PANEL (06/20/2024 11:09 AM CONVEYOR INSTALLER) Blood Result Tanner Baez MD CHEMISTRY ORDERABLES Final Resu lt * VITAMIN B12 LEVEL (06/20/2024 10:54 AM CONVEYOR INSTALLER) Blood us Jefferson Baez MD CHEMISTRY ORDERABLES Final Resu lt * (ABNORMAL) HEMOGLOBIN A1C (05/21/2021 4:14 AM CONVEYOR INSTALLER) HEMOGLOBIN A1C 5.8(H) <5.7 % 05/21/2021 8:06 AM CONVEYOR INSTALLER [facility] EST. AVG GLUCOSE, A1C 120 mg/dL 05/21/2021 8:06 AM CONVEYOR INSTALLER [facility] - [facility] Blood Venipuncture / Unknown 05/21/2021 4:14 AM CONVEYOR INSTALLER 05/21/2021 4:21 AM CONVEYOR INSTALLER Narrative [facility] - [facility] - 05/21/2021 8:06 AM CONVEYOR INSTALLER HGB A1C INTERPRETATION NORMAL: <5.7% PRE-DIABETES: 5.7 - 6.4% DIABETES: 6.5% OR GREATER us Lisa MURPHY CHEMISTRY ORDERABLES Mckenzie l Result [facility] Wagon [facility] CLIA# [id number] [address] [place] [address] from Last 3 Months or Most Recently Relevant to Health Maintenance Additional Health Concerns Infection Onset Date Last Indicated R/O C. diff 06/23/2022 06/23/2022 Insurance [employer] [facility] [employer] [facility] [place]ICAID [place] Advance Directives For more information, please contact: [phone] Documents on File Type Date Recorded Patient Graphics Coordinator Expl anation Advance Directive POA 12/12/2022 12:46 [...] Comments 04/22/2021 8:40 AM 04/23/2021 2:53 AM Care Teams Clinical Engineering Director Relationship Specialty Start Date End Date Nathen Vicente MD [address] [place] [id number] PCP - General Family Practice 08/15/24
--- OUTSIDE RECORDS SUMMARY | 2024-09-10 07:14 | XMS_ITS | CONTINUITY OF CARE DOCUMENT ---
Author Name sheila sosa Address Unknown Organization [facility] Address [address] [place] [address] Phone [phone] Care Team Providers Care Site Head Name Role Phone Bernabe ADRIAN, Bryan Unavailable [phone] [place] Unavailable [phone] BRIAN ADRIAN, ABRIL CAICEDO Unavailable PROBLEMS Condition Status Date Provider Notes Vitamin D deficiency active Bryan Morelos COPD active Bryan Kidd MD Ventricular tachycardia active Bryan hess MD Tobacco abuse active Bryan Kidd MD Atrial myxoma, left active Bryan Kidd MD Neuropathy active Byran Kidd MD neg rpr Pulmonary nodule active Bryan Kidd MD Screening active Bryan Kidd MD FAMILY HISTORY OF HEART DISEASE active Vic Kidd MD dad had pe and mi ? Sleep apnea active Bryan Kidd MD BPH active Bryan Kidd MD ENCOUNTERS Date Type Provider Location Encounter Diag nosis - In-person encounter Office Visit Bryan Kidd MD [facility] Office COPDVentricular tachycardiaTobacco abuseAtrial myxoma, leftNeuropathyPulmonary noduleScreeningFAMILY [...] [in_i] Kadeemity Marylu weight E&M 180 [lb_av] Fatimahue ALLERGIES No Known Drug Allergies RESULTS Date Observation Value Provider Reference Range Interpretation Location 8 B-12, serum 567 pg/mL [facility] [id number] rapid plasma reagin antibody screen Non Reactive [facility] Non Reactive HISTORY OF MEDICATION USE Medication Status Instructions Dates Provider Indications Com ments VITAMIN D3 40799 UNIT ORAL TABLET active TAKE ONE TAB [...] Payer name Policy type / Coverage type Pierce red republican ID [place] MEDICAID (2) Medicaid [id number] ADVANCE DIRECTIVES Name Date DISCUSSED - NO [...]
--- OUTSIDE RECORDS SUMMARY | 2024-09-10 07:14 | XMS_ITS ---
Author Organization [facility] [place] Address [address] [place] [address] Care Team Prov[address] Care Road Cutter Name Role Phone Nathen Vicente MD Primary Care Provider [phone] Active Problems Patient Care Coordination No te Formatting of this note migh t be different from the original. Kieran Og MD--Medical Office Receptionist ([facility] @ ) Problem Noted Date Diagnosed Date Acute respiratory failure with hypoxia 4 Non-small cell lung cancer m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 [...] radiation therapy 04/17/2021 Chronic pain syndrome 04/17/2021 skilled nursing prescription opiate use 04/17/2021 Acute saddle pulmonary [...]
--- OUTSIDE RECORDS SUMMARY | 2024-09-10 07:14 | XMS_ITS ---
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 Costal chondritis 09/21/2023 Essential hypertension 09/21/2023 Chest pain 09/21/2023 Multiple joint pain 09/21/2023 Rib pain 09/21/2023 Skin eruption 09/21/2023 Smoker 09/21/2023 Low serum vitamin B12 08/30/2023 Disorder of skeletal system 07/25/2023 Acute respiratory failure with hypoxia ([facility]) 07/22/2023 Encounter for peripherally inserted central cath eter flush 04/16/2023 Tremor 02/14/2023 Upper respiratory infection 12/26/2022 Malignant neoplasm of lung ([facility]) Overview (09/21/2023): metastatic non-small cell cancer. but bone cancer Paget's disease of bone 07/13/2021 Paroxysmal A-fib ([facility]) 05/25/2021 Chronic pain syndrome 04/17/2021 Current chronic use of inhaled steroid History of therapeutic radiation 04/17/2021 half-way prescription opiate use 04/17/2021 Personal history of tobacco use 04/17/2021 Pulmonary air trapping 04/17/2021 Wheezing 04/17/2021 Benign prostatic hyperplasia with lower urinary tract symptoms 04/09/2019 Acute saddle pulmonary embol ism without acute cor pulmonale ([facility]CC HHS/HCC) 02/11/2019 Typical atrial flutter ([facility] HHS/HCC) 019 Wide-complex tachycardia 09/19/2018 Non-small cell lung cancer m 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 ([facility] HHS/HCC) 07/16/2018 Vitamin D deficiency 06/25/2018 Sleep apnea, unspecified 06/24/2018 Atrial myxoma ([facility]/HCC) 06/24/2018 Overview (09/21/2023): S/p resection Chronic obstructive pulmonary disease ([facility]/HCC H HS/HCC) 06/24/2018 Family history of heart disease 06/24/2018 Overview (09/21/2023): dad had pe and mi Neuropathy 06/24/2018 Overview (09/21/2023): neg rpr Abnormal chest xray 06/09/2016 Dyspnea on exertion 06/09/2016 Nicotine dependence 06/09/2016 Current Oncology Plans No current plan information found. Past Plans Radiation Treatments * No radiation treatments are documented for this patient in [facility]. Treatments may have been administered in another system.
--- OUTSIDE RECORDS SUMMARY | 2024-09-10 07:14 | XMS_ITS | Clinical Summary ---
Author Organization [facility] Address [address] [place] [address] Care Team Providers Care Rollway Worker Name Role Phone Camden Bran Primary Care Provider + Edilma Lubin SCALE ATTENDANT Unavailable [phone] Allergies Active Allergy Reactions Criticality Noted Date Comments Venom-Honey Bee Anaphylaxis High 08/29/2018 Wasp Venom Anaphylaxis High 08/29/2018 Wasp Venom Protein Starter Kit Anaphylaxis High 08/16 Medications triamcinolone (KENALOG) 0.1 % cream as needed Active pregabalin (LYRICA) 225 mg capsule Take 1 capsule (225 mg total) by mouth 2 (two) times a day 4 Active cholecalciferol (VITAMIN D-3) 55628 unit tablet Take 1 tablet (50,000 Units [...] on exertion 06/09/2016 Abnormal chest xray 06/09/2016 Surgical History Surgery Date Site/Laterality Comments SPINAL FUSION Spinal Fusion ATRIAL MYXOMA EXCISION ULNAR NERVE TRANSPOSITION Left APPENDECTOMY GALLBLADDER SURGERY FLUORO GUIDED ASPIRATION OR INJECTION INTERMEDIATE JOINT RIGHT 12/31/2023 Right Medical History Medical History Date Comments Hypertension Hypertension Hx Other Medical dyslipidemia Arrhythmia ablation Myxoma COPD (chronic obstructive pulmonary disease) (HC C) GERD (gastroesophageal reflux disease) Constipation BPH (benign prostatic hyperplasia) Cancer (HCC) COPD (chronic obstructive pulmonary disease) (HC C) Lung cancer (HCC) Anemia Cancer, m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 (HCC) Family History Medical History Relation Name [...] on file Legal Sex Male 8:58 PM SYSTEMS MANAGEMENT CONSULTANT Gender Identity Male 03/18/2024 2:40 PM CDT [...] C Screening 1961 Prostate Cancer Screening-PSA 1961 DTaP/Tdap/Td Vaccine (1 - Tdap) 1972 Hepatitis B Screening 1979 Regular Well Visit/Exam 18-64 1979 Pneumococcal vaccine <65 (1 of 2 - PCV) 1980 Zoster Vaccine (1 of 2) 1980 Covid-19 Vaccine (2023-2 5 season) 2024 02/05/2023, 06/10/2022, 09/17/2021, Additional history exists Influenza Vaccine (#1) 2024 , 06/09/2022, 03/26/2021, Additional history exists Colon Cancer Screening-Colonoscopy 10/23/20262016 Medical Devices Implanted Type Area Automatic Nailing Machine Operator Device Identifier Shelf Expiration Date Model / Serial / Lot Medtronic Inc Ascenda 4fr .5mm 114cm 86cm 2 Piece Connector Pin Flexible Closed [id number] - [id number] Implanted:Qty: 1 on 10/11/2023 by Gerry Trivedi MD at [facility] Left: Abdomen Medtronic Inc 09/19/2025 [id number] / / [id number] Med[employer]onic Usa [employer] X Pump Infusion Programmable Ulp Ami 40ml Volume Synchromed Iii 8667-40 - [id number] - [id number] Implanted:Qty: 1 on 10/11/2023 by Gerry Trivedi MD at [facility] Left: Abdomen Med[employer]onic [employer] X 03/01/2025 8667-40 / [id number] / Medtronic Inc Tyrx 3.35x3in Large Envelope Absorbable Polyarylate Minocycline [id number] - [id number] Implanted:Qty: 1 on 10/11/2023 by Gerry Trivedi MD at [facility] Left: Abdomen Medtronic Inc 05/22/2024 [id number] / / [id number] Medtronic Inc Vectris 5mm 75cm 1x8 Electrode Compact Mri Lead Neurostimulator [id number] - [id number] Implanted:Qty: 1 on 02/28/2024 by Gerry Trivedi MD at [facility] N/A: Back Medtronic Inc 11/19/2027 977 [id number] / / [id number] Medtronic Inc Generator Pulse Inceptiv Sys Stm Electrcl Analges Implant [id number] - [id number] - [id number] Implanted:Qty: 1 on 02/28/2024 by Gerry Trivedi MD at [facility] N/A: Back Med[employer]onic Inc [id number] / [id number] / Medtronic Inc Vectris 5mm 75cm 1x8 Electrode Compact Mri Lead Neurostimulator [id number] - [id number] Implanted:Qty: 1 on 02/28/2024 by Gerry Trivedi MD at [facility] N/A: Back Medtronic Inc 05/28/2027 977 [id number] / / [id number] Medtronic Inc Envelope Absrb 2.7x2.5in Antibacterial Tyrx Medium Strl [id number] - [id number] Implanted:Qty: 1 on 02/28/2024 by Gerry Trivedi MD at [facility] N/A: Back Medtronic Inc 10/06/2024 NMR [id number] / / [id number] Procedures Procedure Name Priority Date/Time Associated Diagnosis [...] agrees with it. ACC# Date Time Exam [id number] October 23, 2016 10:41:[address] Colonography Dx w/o ACC# Date Time Exam [id number] October 23, 2016 10:41:[address] Colonography Dx w/o EXAMINATION: CT colonography [...] ZAPATA M.D. on Oct 23 2016 4:41P [id number] Procedure Note Miscellaneous, Not In File / Provider, MD Kaye - 11/11/2016 MARTA ZAPATA M.D. FLOYD BOYLE MD FINAL REPORT The radiology attending physician has personally reviewed this study, and has reviewed and/or edited this written report and agrees with it. ACC# Date Time Exam [id number] October 23, 2016 10:41:[address] Colonography Dx w/o ACC# Date Time Exam [id number] October 23, 2016 10:41:[address] Colonography Dx w/o EXAMINATION: CT colonography [...] ZAPATA M.D. on Oct 23 2016 4:41P [id number] us Not In File Miscellaneous IMG CT PROCEDURES Mckenzie l Result from Last 3 Months or Most Recently Relevant to Health Maintenance Insurance [address] [place] [address] HUMANA MEDICARE HMO HUMANA MEDICARE HMO Care Teams Rollway Worker Relationship Specialty Start Date End Date Camden Bran PA [address] [place] [address] PCP - General Internal Medicine 04/16/24 [place] [address] [address] Nurse Practitioner Auger Supervisor 04/16/24
--- OUTSIDE RECORDS SUMMARY | 2024-09-10 07:14 | XMS_ITS | Encounter Summary ---
Author Organization [facility] Address [address] [place] [address] Care Team Providers Care Bottling Line Operator Name Role Phone Nathen Vicente MD Primary Care Provider [phone] Reason for Visit * Reason Comments Med Refill Encounter Details Date Type Department Care Team (Late st Contact Info) Description 05/25/2024 Telephone [facility] At [address] [place] [address] Kieran Og MD [address] [place] [address] [address] [place] [address] Med Refill Social History Tobacco [...] Sex Assigned at Male 07/02/2023 2:30 PM ELEMENTARY SCHOOL ART TEACHER Legal Sex Male 1:30 PM ELEMENTARY SCHOOL ART TEACHER Gender Identity Male 07/02/2023 2:30 PM ELEMENTARY SCHOOL ART TEACHER Sexual Orientation Bisexual 07/02/2023 2: 30 PM ELEMENTARY SCHOOL ART TEACHER Sexual Orientation Straight 07/02/2023 2: 30 PM ELEMENTARY SCHOOL ART TEACHER documented as of this encounter Miscellaneous Notes * Telephone Encounter - Elizabeth Collins RN - 05/27/2024 4:13 PM CST Ed Cox, this pt will need another appointment with Dr Og before we can send refills. Thank you ENTARY SCHOOL ART TEACHER * Telephone Encounter - Brooke Kingston - [...] Mix with 100 ml liquid Diphenhydramine 12.5mg/5ml xox453 ml Mylanta (or Maalox). Shake to mix before using. Swallow 15 mL immediately before meals and at bedtime as needed for painful swallowing. Do not swish. 100 mL 1 furosemide (LASIX) 40 mg tablet Take 40 mg by mouth daily. PRN ONLY ibandronate (BONIVA) 150 mg tablet 11/2021 MEDICATION IS ON HOLD naloxone (Narcan) 4 mg/spray [place], Non-Aerosol Narcan 4 mg/actuation nasal spray 1 [...] No current facility-administered medications for this visit. ENTARY SCHOOL ART TEACHER documented in this encounter Plan of Treatment Upcoming Encounters Date Type Department Care Team (Late st Contact Info) Description 10/02/2024 1:00 PM CDT Office Visit [facility] Oncology and Hematology - [place] [address] [facility] [address] [place] [address] Jefferson Baez MD [address] [facility] [address] [place] [address] documented as of this encounter Visit Diagnoses Not on filedocumented in this encounter Additional Health Concerns Infection Onset Date Last Indicated Resolved Time R/O C. diff 06/23/2022 06/23/2022 documented as of this encounter Care Teams Bottling Line Operator Relationship Specialty Start Date End Date Nathen Vicente MD [address] [place] [phone] PCP - General Family Practice 08/15/24 documented as of this encounter
--- OUTSIDE RECORDS SUMMARY | 2024-09-10 07:15 | XMS_ITS | Clinical Summary ---
Author Organization [facility] Address [address] [place] [address] Care Team Providers Care Garageman Name Role Phone Nathen Vicente MD Primary Care Provider [phone] Allergies Active Allergy Reactions Criticality Noted Date Comments Bee Venom Anaphylaxis High 08/29/2018 Medications DULoxetine 60 MG capsule Take 1 capsule (60 mg total) by mouth daily. 0 Active Cholecalciferol (VITAMIN D3) 1.25 MG (43885 UT) Tab TAKE 1 TABLET BY MOUTH [...] system 07/25/2023 Acute respiratory failure with hypoxia ([facility]) 07/22/2023 Encounter for peripherally inserted central cath eter flush 04/16/2023 Tremor 02/14/2023 Upper respiratory infection 12/26/2022 Malignant neoplasm of lung ([facility]) Overview (09/21/2023): metastatic non-small cell cancer. but bone cancer Paget's disease of bone 07/13/2021 Paroxysmal A-fib ([facility]) 05/25/2021 Chronic pain syndrome 04/17/2021 Current chronic use of inhaled steroid History of therapeutic radiation 04/17/2021 nursing home prescription opiate use 04/17/2021 Personal history of tobacco use 04/17/2021 Pulmonary air trapping 04/17/2021 Wheezing 04/17/2021 Benign prostatic hyperplasia with lower urinary tract symptoms 04/09/2019 Acute saddle pulmonary embol ism without acute cor pulmonale ([facility]) 02/11/2019 Typical atrial flutter ([facility]) 019 Wide-complex tachycardia 09/19/2018 Non-small cell lung cancer m 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 ([facility]) 07/16/2018 Vitamin D deficiency 06/25/2018 Sleep apnea, unspecified 06/24/2018 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 Overview (09/21/2023): S/p resection Chronic obstructive pulmonary disease ([facility]) 06/24/2018 Family history of heart disease 06/24/2018 [...] 91 02/12/2024 9:49 AM CDT Temperature 36.7 C (98.1 F) 02/12/2024 9:49 AM CDT Respiratory Rate 18 09/21/2023 10:12 AM CDT [...] years 1-dose series) 2021 COVID-19 Vaccine ( - season) 2024 02/05/2023, 06/10/2022, 09/17/2021, Additional history exists Influenza Adult (#1) 2024 06/09/2022, 03/26/2021, 03/26/2019, Additional history exists PHQ-2 (Physician Burke) 06/18/2024 Meningococcal B Vaccine Aged Out No l onger eligible based on patient's age to complete this topic Meningococcal Vaccine Aged Out No klarissa jose eligible based on patient's age to complete this topic RSV Immunizations Under 20 Months Aged Out No longer eligible based on patient's age to complete this topic Insurance HUMANA Care Teams Garageman Relationship Specialty Start Date End [place] [address] PCP - General HOSPITALIST 02/12/24
--- OUTSIDE RECORDS SUMMARY | 2024-09-10 07:15 | XMS_ITS | Clinical Summary ---
Author Organization [facility] [employer] Address [address] [facility] [place] [address] Care Team Providers Care Service Parts Driver Name Role Phone Iona Torres MD Primary Care Provider [phone] Source Comments [facility] [employer],non-owned Affiliates and Associated Physician Practices is amultiple site organization consisting of ambulatory clinics and hospital sitesin [place], [place], [place] and [place]. This disclosure is being madepursuant to the Care Everywhere program and may not contain all information available regarding this patient. Last updated 18.[facility] [employer] Allergies Active Allergy Reactions Criticality Noted Date [...] as needed 06/17/2018 Active Cholecalciferol (VITAMIN D3) 91474 UNITS capsuleIndication s:Cancer of upper lobe of [...] Sex Assigned at Male 05/18/2021 6:10 PM DOCUMENT IMPROVEMENT SPECIALIST Gender Identity Male 05/18/2021 6:10 PM DOCUMENT IMPROVEMENT SPECIALIST Sexual Orientation Straight 05/18/2021 6: 10 PM DOCUMENT IMPROVEMENT SPECIALIST Last Filed Vital Signs Vital Sign Reading Time Taken Comments Blood Pressure 131/84 12/30/2019 9:24 AM CDT Pulse 93 12/30/2019 9:24 AM CDT Temperature 36.8 C (98.2 F) 12/30/2019 9:24 AM CDT Respiratory Rate 20 12/05/2019 8:14 AM CDT [...] complete this topic MENINGOCOCCAL (Group B) VACCINE SHARED DECISION-MAKING Aged Out No longer eligible based on patient's age to complete this topic MENINGOCOCCAL GROUPS A/C/Y/W VACCINE Aged Out No longer eligible based on patient's age to complete this topic Procedures Procedure Name Priority Date/Time Associated Diagnosis Comments BASIC METABOLIC PANEL (CALCIUM TOTAL) STAT 04/23/2019 3:38 PM DOCUMENT IMPROVEMENT SPECIALIST Benign prostatic hyperplasia with urinary retention from Last 3 Months or Most Recently Relevant to Health Maintenance Results * (ABNORMAL) BASIC METABOLIC PANEL (CALCIUM TOTAL) (04/23/2019 3:38 PM DOCUMENT IMPROVEMENT SPECIALIST) Pathologist [facility] Glucose 93 70 - 105 mg/dL 04/23/2019 4:10 PM DOCUMENT IMPROVEMENT SPECIALIST [facility] Sodium 138 136 - 145 mmol/L 04/23/2019 4:10 PM DOCUMENT IMPROVEMENT SPECIALIST [facility] Potassium 5.7(H) 3.5 - 4.7 mmol/L 04/23/2019 4:10 PM DOCUMENT IMPROVEMENT SPECIALIST [facility] Chloride 105 98 - 107 mmol/L 04/23/2019 4:10 PM DOCUMENT IMPROVEMENT SPECIALIST [facility] CO2 24 23 - 31 mmol/L 04/23/2019 4:10 PM DOCUMENT IMPROVEMENT SPECIALIST [facility] Calcium 9.3 8.4 - 10.4 mg/dL 04/23/2019 4:10 PM DOCUMENT IMPROVEMENT SPECIALIST [facility] Anion Gap 9 8 - 16 mmol/L 04/23/2019 4:10 PM DOCUMENT IMPROVEMENT SPECIALIST [facility] BUN 16 8.4 - 25.7 mg/dL 04/23/2019 4:10 PM DOCUMENT IMPROVEMENT SPECIALIST [facility] Creatinine 0.97 0.72 - 1.25 mg/dL 04/23/2019 4:10 PM DOCUMENT IMPROVEMENT SPECIALIST [facility] eGFR by MDRD >60 >60 mL/min/1.7 3m2 04/23/2019 4:10 PM DOCUMENT IMPROVEMENT SPECIALIST [facility] eGFR by MDRD >60 >60 mL/min/1.7 3m2 04/23/2019 4:10 PM DOCUMENT IMPROVEMENT SPECIALIST [facility] Blood BLOOD SPECIMEN / Unknown Venipuncture / Unknown 04/23/2019 3:38 PM DOCUMENT IMPROVEMENT SPECIALIST 04/23/2019 3:50 PM DOCUMENT IMPROVEMENT SPECIALIST Anirudh Paulino MD LAB - CHEMISTRY LALITHA [facility] Organization Address City/State/ZIP Co de Phone Number [facility] [address] [place] [address] from Last 3 Months or [...] 11:02 AM 09/02/2018 7:02 PM Care Teams Service Parts Driver Relationship Specialty Start Date End Date Iona Torres MD [address] [place] [address] [address] [place] [id number] PCP - General 07/04/18
--- OUTSIDE RECORDS SUMMARY | 2024-09-10 07:15 | XMS_ITS | Continuity of Care Document ---
Author Organization [facility] Address [address] [place] [address] Phone Care Team Providers Care Ventilated Rib Fitter Name Role Phone Danny Manzo MD Unavailable Unavailable Advance Directives Directive Yes / No Effective Date File Name No Information Encounters Encounter Description Practice Location Reason(s) For Visit Diagnoses Date Provider Providers Copied on Encounter [facility], [address], [place], [place], [id number], [place] tel:[phone] [facility] Jovany Delgado. [address] [place], [place], [id number], [place]. tel:[phone] Family History Family Member Type Diagnosis Age At Onset No Information Payers Payer name Insurance type Covered green party ID Authoriza tion(s) No Information Social History [...]
--- NOTE | 2024-09-10 07:32 | PC.NURSE ---
Shant w/ vascular access at bedside to access pt's port. called ED Respiratory to obtian AGB and place pt on Bipap per EDP.
--- NOTE | 2024-09-10 07:35 | ED.SOB ---
HPI - SOB/Dyspnea General Chief Complaint: Shortness of Breath/Dyspnea Stated Complaint: sob Time Seen by Provider: 09/10/24 07:04 History of Present Illness HPI Narrative: 64-year-old male with a past medical history including lung cancer, COPD, hypoxia baseline requiring 3.5 L oxygen. Patient presents to the emergency department respiratory distress, hypoxic, tachycardic, tachypneic. He is febrile at 38.6. He is on 15 L non-rebreather right now and complaining of shortness of breath. Brought back in room 12. Medical resuscitation and evaluation. Patient states he has been having 4 days of worsening shortness of breath. Has been trying his nebulizer at home without any relief of symptoms. No chest pain, nausea, vomiting. Patient endorses being full code and wishing to have intubation with resuscitative efforts if needed. Related Data Home Medications ?Medication ?Instructions ?Recorded ?Confirmed ?Last Taken ?Type No Home Medications 09/10/24 09/10/24 Unknown History Allergies Allergy/AdvReac Type Severity Reaction Status Date / Time bee venom protein (honey bee) Allergy Unknown Swelling Verified 08/29/24 12:13 alprazolam (From Xanax) AdvReac Intermediate Agitated Verified 08/29/24 12:13 Review of Systems Review of Systems: As reviewed above in HPI [facility] Past Medical History Medical History History of recurrent pneumonia Chronic anticoagulation Chronic respiratory failure with hypoxia, on home oxygen therapy Chronic obstructive pulmonary disease uses 3 L prn Benign prostatic hyperplasia Chronic anemia Seasonal allergies History of pulmonary embolism (12/2018) History of DVT (deep vein thrombosis) Right upper extremity DVT and bilateral PE December 2018 for which he took Xarelto for several months. Anxiety Peripheral neuropathy Chronic pain syndrome Due to chronic lower back pain after complications with lower spinal fusion 2009. Hypertension Reports he is no longer on medications for such. Atrial fibrillation s/p cardiac ablation by Dr. Tom Oakley at [facility] Adenocarcinoma, lung Non-small cell carcinoma diagnosed June 2018. Follows with Dr. Baez and Dr. Cavazos; underwent radiation therapy from 12/05/2018 to 12/18/2018 and again in fall 2021 due to recurrence. Now with metastatic disease to lymph nodes and bone. He is currently receiving chemotherapy and has plans to start Keytruda on August 18. 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 Followed by Dr. Parson at [facility] last seen around December 2018. Surgical History Surgical History History of cholecystectomy History of transurethral resection of prostate History of open heart surgery (~2018) Status post resection of atrial myxoma. History of lumbar fusion Anterior and posterior L4-S1 fusion 2009 History of appendectomy In the 90 History of carpal tunnel release Left 2011 History of elbow surgery Left elbow ulnar neurolysis Family History Family History Father Acute myocardial infarction Pulmonary embolism Sibling Breast cancer Mother Family history of chronic obstructive pulmonary disease Social History Social History Social History: Mr. Garay lives with his ex- Edna in [place]. They have 2 children. 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 He denies significant alcohol use, drinks socially. Smoked 2 packs per day of cigarettes x 40 years and quit 2017. Denies other substance use. Long-term opioid use due to chronic back pain. Ambulates without a cane or walker at home. He designates his ex- as his surrogate decision maker and he wishes to be a full code however, he states he would not want to be on a ventilator for long-term. Smoking packs per day: 2 Smoking cigarettes per day: 40.0 Years smoked: 40 Smoking pack-years: 80.00 Smoking status: Former smoker Second hand tobacco smoke exposure: Yes Alcohol intake: never Substance use: never Substance use type: does not use Do You Feel Safe in your Home?: Yes Lack of Transportation: No Lack of Food: Never True Current Housing: I Have Housing Concerned About Future Housing: No Difficulty Paying Gas/Electric Bills: No Difficulty Paying for Meds: No Currently Unemployed: No Education: Decline to Answer Difficulty w/ Childcare or Family Care: No Living arrangements: with family Occupation/Education: unemployed Spiritual care concerns: No Exam Narrative: GENERAL: Ill-appearing, toxic appearing, acute respiratory distress with tachypnea HEAD: [Normocephalic, atraumatic.] EYES: [PERRLA and EOMI.] ENT: Nares clear, no rhinorrhea or epistaxis. Mucous membranes dry. NECK: Supple. CHEST: Coarse breath sounds bibasilarly, respiratory distress with tachypnea and hypoxia, dyspneic with conversation HEART: Tachycardic rate, regular rhythm. No murmur heard. [Normal peripheral pulses.] ABDOMEN: [Soft, nondistended], [nontender], [No rigidity or guarding] EXTREMITIES: Normal range of motion. [No edema.] SKIN: Warm extremities, febrile, dry NEURO: [No focal deficits]. Alert and oriented [x3.] PSYCH: [Normal mood and affect.] Course Vital Signs Vital signs: Vital Signs Temperature 38.6 C H 09/10/24 05:55 Pulse Rate 118 H 09/10/24 05:55 Respiratory Rate 24 H 09/10/24 05:55 Blood Pressure 129/91 H 09/10/24 05:55 Pulse Oximetry 99 09/10/24 05:55 Oxygen Delivery Non-Rebreather Mask 09/10/24 05:55 Oxygen Flow Rate 15 09/10/24 05:55 Temperature 37.3 C 09/10/24 10:06 Pulse Rate 102 H 09/10/24 11:40 Respiratory Rate 18 09/10/24 11:40 Blood Pressure 102/60 09/10/24 11:40 Pulse Oximetry 99 09/10/24 11:40 Oxygen Delivery BiPAP 09/10/24 08:52 Oxygen Flow Rate 15 09/10/24 06:22 MDM - SOB/Dyspnea MDM Narrative Medical decision making narrative: 64-year-old male with history of lung cancer stage IV, currently undergoing therapy here. Patient also has a history of COPD on baseline 3 L oxygen. Presents today in respiratory distress with tachycardia, tachypnea, hypoxia requiring 15 L non-rebreather. Has been using his nebulizer treatments for COPD at home without any relief of symptoms. He is severely short of breath, conversationally dyspneic, very uncomfortable and toxic/ill-appearing. Considerations presently are for sepsis, worsening lung cancer burden, pneumonia, severe COPD exacerbation. Patient is chronically anticoagulated with Xarelto so PE very unlikely. Respiratory therapy called to bedside for assistance in setting up BiPAP therapy and continue his nebulizer treatments. He was given Solu-Medrol IV push. Given concerns for sepsis and fever he was given Tylenol, septic bundle initiated, 30 cc/kg bolus given, antibiotics start with vancomycin cefepime empirically. Laboratory studies including blood cultures lactic acid and electrolytes CMP ordered. CT scan of the chest abdomen pelvis obtained. Patient's code status was confirmed and he wishes to be full code with intubation if he fails BiPAP therapy. Currently have a low threshold for intubation based on clinical exam and initial presentation. Patient was evaluated on BiPAP and was not tolerating this. He had nauseousness and almost vomited into the BiPAP circuit. He was given Zofran with good effect. I had extensive paul discussions with the patient and the family as well as the caregiver at bedside regarding his wishes, current trajectory, goals of care and likely inability to tolerate further treatments and aggressive measures. We rediscussed CPR and intubation at this juncture and patient would prefer to be DNR at this time. Hospice was consulted, and the acute care certified nursing assistant has spoken to family members and the patient at bedside as well. [facility] will, no evaluate the patient for inpatient hospice. CT scans canceled, DNR signed by patient and myself. Hospice service has evaluated the patient and accepted him to inpatient service at this time. Patient remain on BiPAP therapy for comfort. Admit orders placed, patient left the department to go upstairs on hospice at this time. Medical Records Attestation: I reviewed the patient's medical records. Lab Data Attestation: I reviewed the patient's lab results. 09/10/24 06:18 09/10/24 06:14 Labs: Lab Results 09/10/24 09/10/24 09/10/24 Range/Units 06:14 06:18 07:37 WBC 14.0 H (4.5-10.0) K/mm3 RBC 4.19 L (4.6-6.20) M/mm3 Hgb 11.5 L (14.0-18.0) g/dL Hct 39.1 L (42.0-52.0) % MCV 93.3 (80-100) fl MCH 27.4 (26-34) pg MCHC 29.4 L (32-36) g/dl RDW 19.5 H (11.5-14.5) % Plt Count 77 L (150-375) k/mm3 MPV 11.2 H (7.4-10.4) fl Immature Gran % (Auto) 0.6 H (0-0.5) % Neut % (Auto) 87.8 H (45.5-73.1) % Lymph % (Auto) 8.7 L (18.3-44.2) % [place] % (Auto) 2.7 (2.6-8.5) % Eos % (Auto) 0.1 (0-4.4) % Baso % (Auto) 0.1 L (0.2-1.2) % Lymph # (Auto) 1.21 (0.9-3.2) K/mm3 [place] # (Auto) 0.4 (0.1-0.6) K/mm3 Eos # (Auto) 0.0 (0-0.3) K/mm3 Baso # (Auto) 0.0 (0.0-0.1) K/mm3 Abs Immat Gran (auto) 0.09 H (0.00-0.031) K/mm3 Absolute Neuts (auto) 12.3 H (1.3-6.7) K/mm3 Absolute Nucleated RBC 0.000 (0.0-0.012) K/mm3 Band Neutrophils % Not Reportable Nucleated RBC % 0.0 (0.0-0.2) % Platelet Estimate Slightly decreased (Adequate) % Immature Plt Fraction 8.1 (0.9-11.2) % Anisocytosis 1+ Schistocytes None seen PT 19.3 H (11.1-14.7) Seconds INR 1.6 APTT 40.7 H (22.3-36.8) Seconds Methemoglobin 0.3 (0-1.5) %THb Expiratory Pressure 6 CMH2O Inspiratory Pressure 12 CMH2O Sodium 141 (137-145) mmol/L Potassium 4.8 (3.4-5.0) mmol/L Chloride 102 (98-107) mmol/L Carbon Dioxide 36 H (22-30) mmol/L Anion Gap 3 L (4-12) mmol/L BUN 12 (9-20) mg/dL Creatinine 0.86 (0.7-1.3) mg/dL Estim Creat Clear Calc 84 ml/min Estimated GFR > 60 (59 - ) Glucose 111 H (65-110) mg/dL Lactic Acid (0.7-2.0) mmol/L Calcium 8.9 (8.4-10.2) mg/dL Total Bilirubin 0.3 (0.2-1.3) mg/dL AST 21 (17-59) U/L ALT 12 (6-50) U/L Alkaline Phosphatase 102 (38-126) U/L C-Reactive Protein (<1.0) mg/dL Total Protein 6.0 L (6.3-8.2) g/dL Albumin 3.6 (3.5-5.1) g/dL Urine Color (Yellow) Urine Appearance (Clear) Urine pH (5.0-9.0) Ur Specific [place] (1.001-1.035) Urine Protein (Negative) mg/dL Urine Glucose (UA) (Negative) mg/dL Urine Ketones (Negative) mg/dL Ur Blood (Man) (Negative) Urine Nitrate (Negative) Urine Bilirubin (Negative) Urine Urobilinogen (<2.0) mg/dL Leukocyte Esterase Rfl (Negative) [place]/UL Nasal MRSA (PCR) (NOT DETECTE) Influenza A (RT-PCR) Negative (Negative) Influenza B (RT-PCR) Negative (Negative) RSV (RT-PCR) Negative (Negative) SARS-CoV-2 RNA (RT-PCR) Negative (Negative) 09/10/24 09/10/24 Range/Units 07:40 08:11 WBC (4.5-10.0) K/mm3 RBC (4.6-6.20) M/mm3 Hgb (14.0-18.0) g/dL Hct (42.0-52.0) % MCV (80-100) fl MCH (26-34) pg MCHC (32-36) g/dl RDW (11.5-14.5) % Plt Count (150-375) k/mm3 MPV (7.4-10.4) fl Immature Gran % (Auto) (0-0.5) % Neut % (Auto) (45.5-73.1) % Lymph % (Auto) (18.3-44.2) % [place] % (Auto) (2.6-8.5) % Eos % (Auto) (0-4.4) % Baso % (Auto) (0.2-1.2) % Lymph # (Auto) (0.9-3.2) K/mm3 [place] # (Auto) (0.1-0.6) K/mm3 Eos # (Auto) (0-0.3) K/mm3 Baso # (Auto) (0.0-0.1) K/mm3 Abs Immat Gran (auto) (0.00-0.031) K/mm3 Absolute Neuts (auto) (1.3-6.7) K/mm3 Absolute Nucleated RBC (0.0-0.012) K/mm3 Band Neutrophils % Nucleated RBC % (0.0-0.2) % Platelet Estimate (Adequate) % Immature Plt Fraction (0.9-11.2) % Anisocytosis Schistocytes PT 19.0 H (11.1-14.7) Seconds INR 1.5 APTT 50.5 H (22.3-36.8) Seconds Methemoglobin (0-1.5) %THb Expiratory Pressure CMH2O Inspiratory Pressure CMH2O Sodium (137-145) mmol/L Potassium (3.4-5.0) mmol/L Chloride (98-107) mmol/L Carbon Dioxide (22-30) mmol/L Anion Gap (4-12) mmol/L BUN (9-20) mg/dL Creatinine (0.7-1.3) mg/dL Estim Creat Clear Calc ml/min Estimated GFR (59 - ) Glucose (65-110) mg/dL Lactic Acid 1.2 (0.7-2.0) mmol/L Calcium (8.4-10.2) mg/dL Total Bilirubin (0.2-1.3) mg/dL AST (17-59) U/L ALT (6-50) U/L Alkaline Phosphatase (38-126) U/L C-Reactive Protein 4.3 H (<1.0) mg/dL Total Protein (6.3-8.2) g/dL Albumin (3.5-5.1) g/dL Urine Color Yellow (Yellow) Urine Appearance Clear (Clear) Urine pH 5.0 (5.0-9.0) Ur Specific [place] 1.015 (1.001-1.035) Urine Protein Negative (Negative) mg/dL Urine Glucose (UA) Negative (Negative) mg/dL Urine Ketones Negative (Negative) mg/dL Ur Blood (Man) Negative (Negative) Urine Nitrate Negative (Negative) Urine Bilirubin Negative (Negative) Urine Urobilinogen 0.2 (<2.0) mg/dL Leukocyte Esterase Rfl Negative (Negative) [place]/UL Nasal MRSA (PCR) Not detected (NOT DETECTE) Influenza A (RT-PCR) (Negative) Influenza B (RT-PCR) (Negative) RSV (RT-PCR) (Negative) SARS-CoV-2 RNA (RT-PCR) (Negative) ABG Data ABG results: 09/10/24 07:37 Puncture Site Left radial ABG pH 7.374 ABG pCO2 50.8 H ABG pO2 88.5 ABG PO2/FiO2 Ratio 1.26 ABG HCO3 29.0 H ABG O2 Saturation 96.4 ABG O2 Content 16.4 ABG Base Excess 2.9 A-a Gradient 356.0 Oxyhemoglobin 95.8 Carboxyhemoglobin 0.5 Reduced Hemoglobin 3.4 Total Hemoglobin 12.1 O2 Delivery Device Non-invasive vent O2 Liters/Min Not Reportable Vent Rate 4 FiO2 70 Attestation: I personally reviewed and interpreted this ABG as follows: Interpretation: Normal pH, some elevated pCO2 consistent with retention. Compensated by kidneys. Chronic respiratory acidosis. Imaging Data Attestation: I personally reviewed and interpreted this imaging study as follows: My impression: Impressions Chest X-Ray 09/10/24 06:43 IMPRESSION: 1. Chronic right perihilar mass with right lung volume loss, consistent with radiation fibrosis. 2. Worsened airspace opacities in right perihilar region, consistent with atelectasis/scarring versus pneumonia. 3. Small pleural effusions with worsening on the right. 4. Sclerotic bone lesions, consistent with metastatic disease. Critical Care Time Critical Care Time Critical Care Time: Yes Total Critical Care Time: 75 Discharge Plan Discharge Clinical Impression: Stage IV squamous cell carcinoma of lung, Acute on chronic respiratory failure with hypoxia and hypercapnia, Admission for hospice care Patient Disposition: Hospice [facility] [place] Inpatient Condition: Terminal Patient Language: Ukrainian Prescriptions: No Action No Home Medications Follow-up/Referrals: Shant,JEFFREY Marcelo [Primary Care Provider] - Time of Disposition: 10:13
[2024-09-10 07:50] LABS: Base Excess ABG 2.9 mEq/l (+/-2.0); Carboxyhemoglobin 0.5 % THb (0-2.0); Fractional Inspired Oxygen 70 %; Methemoglobin ABG 0.3 %THb (0-1.5); Oxygen Content ABG 16.4 %vol (16.0-22.0); Oxygen Saturation ABG 96.4 % (95.0-100.0); Oxyhemoglobin 95.8 % THb (90.0-100.0); PCO2 ABG 50.8 mmHg (35.0-45.0); PO2 ABG 88.5 mmHg (80.0-100.0); PO2 FiO2 Ratio Arterial Blood 1.26 %; Reduced Hemoglobin 3.4 %THb (0-5.0); Total Hemoglobin 12.1 g/dL (12.0-18.0); pH ABG 7.374 (7.350-7.450)
[2024-09-10] MEDS: CEFEPIME 2 GM/NS 50 ML 2 GM/50 ML BAG IVPB (07:51)
[2024-09-10] MEDS: LACTATED RINGERS 1,000 ML 999 ML IV CONT ×2 (07:55→07:56)
[2024-09-10] MEDS: VANCOMYCIN 1,250 MG/NS 250 ML 1,250 MG/250 ML BAG 166.67 MG IVPB (07:55)
[2024-09-10] MEDS: LACTATED RINGERS 800 ML 999 ML IV CONT (07:56)
[2024-09-10 08:03] LABS: Lactic Acid Reflex 1.2 mmol/L (0.7-2.0)
[2024-09-10 08:07] LABS: CRP 4.3 mg/dL (<1.0)
[2024-09-10 08:12] LABS: INR 1.5
[2024-09-10] MEDS: LEVALBUTEROL NEB 1.25 MG/3 ML 2.5 MG INHALATION (08:12)
[2024-09-10] MEDS: IPRATROPIUM BR 0.02% INH SOLN 0.5 MG/2.5 ML VIAL 1 MG INHALATION (08:13)
[2024-09-10 08:14] LABS: Partial Thromboplastin Time 50.5 Seconds (22.3-36.8)
[2024-09-10 08:21] LABS: Add Urine Microscopic? NO; Appearance Urine Clear (Clear); Bilirubin Urine Negative (Negative); Blood Urine Negative (Negative); Color Urine Yellow (Yellow); Glucose Urine UA Negative (Negative); Ketones Urine Negative (Negative); Leukocyte Esterase Ur Negative LEU/UL (Negative); Nitrate Urine Negative (Negative); Protein Urine Negative (Negative); Specific Grav Ur 1.015 (1.001-1.035); Urobilinogen Urine 0.2 mg/dL (<2.0)
--- NOTE | 2024-09-10 08:27 | PC.NURSE ---
Call placed to Care Coordination to seek Hospice Care
[2024-09-10] MEDS: LORazepam INJ (*CRX) 2 MG/ML VIAL 1 MG IV PUSH (08:32)
--- NOTE | 2024-09-10 08:36 | PC.NURSE ---
pt states he feels like he was going to vomit. BIPAP mask removed. and placed on nasal cannula. per EDP gave 8mg zofran IV. pt placed back on BIPAP. pt anxious. per EDP give 1mg of Ativan IV. EDP aware of allergy. states to still give medication. 1mg of ativan given IV.
--- NOTE | 2024-09-10 08:39 | PC.NURSE ---
care coordination at bedside speaking with family and pt about hospice care.
[2024-09-10] MEDS: methylPREDNISolone SOD SUCC 40 MG VIAL IV PUSH (08:42)
--- NOTE | 2024-09-10 08:43 | PCCCNOTE ---
Called to the pt's room and met the Daughter whom is at bedside and pt. Stated the Edna is on her way. Becki stated pt was brought into the ED today d/t being SOB. Pt is currently on a Bipap which he is not generally at home. Pt appears asleep and will open his eyes for brief periods to answer questions. Asked pt if he would like to be a full code and pt stated, yes . Described to the pt that means chest compressions and possible intubation being on a ventilator to keep him alive. Pt shook his head then stated no. Educated the pt then the other option generally is DNR which would be keep him comfortable only which he agreed. Asked the pt if he would like Hospice services and he did not answer. Educated him on their resources provided and he continued not to answer. Asked him if he would like to discuss this with his family and he shook his head yes. Pt otherwise wishes to remain on the Bipap and continue to make his own choices as long as he can.abdiaziz
[2024-09-10] MEDS: ONDANSETRON INJ 4 MG/2 ML VIAL 8 MG (08:45)
[2024-09-10 08:49] LABS: Device NON-INVASIVE VENT; Modified Allen's Test Pass; Site Drawn LEFT RADIAL
[2024-09-10 08:50] LABS: Non-Invasive Expiratory Pressure 6 CMH2O; Non-Invasive Inspiratory Pressure 12 CMH2O; Non-Invasive Vent Rate 4 /MIN
[2024-09-10 09:02] LABS: MRSA (PCR) NOT DETECTED (NOT DETECTE)
--- NOTE | 2024-09-10 09:19 | PCCCNOTE ---
Spoke with the pt's in which she feels the pt will not survive this hospitalization and is agreeable the pt not to have CPR. Changed pt's status to a DNR. Also requested [facility] to be called d/t having consulted them for palliative care previously. Called Bridgette with [facility] and faxed orders as requested. 922-Received a call from [facility], Yue is on her way and will be here w/in 30 minutes to admit pt to services. ED Charge updated.-abdiaziz
[2024-09-10] MEDS: VANCOMYCIN 1,000 MG/NS 250 ML 1,000 MG/250 ML BAG 250 MG IVPB (09:51)
--- NOTE | 2024-09-10 10:07 | PC.NURSE ---
Yue RN with [facility] at bedside speaking with pt and family.
== END 2024-09-10 12:19 | disposition hospice, inpatient (51) ==
PROVIDERS: Student in an Organized Health Care Education/Training Program; Emergency Provider Student in an Organized Health Care Education/Training Program; PCP Physician Assistant
DX: C34.90 Malignant neoplasm of unspecified part of unspecified bronchus or lung (principal); C77.9 Secondary and unspecified malignant neoplasm of lymph node, unspecified; C79.51 Secondary malignant neoplasm of bone; J96.21 Acute and chronic respiratory failure with hypoxia; J96.22 Acute and chronic respiratory failure with hypercapnia; Z20.822 Contact with and (suspected) exposure to COVID-19; Z51.5 Encounter for palliative care; J44.9 Chronic obstructive pulmonary disease, unspecified; N40.0 Benign prostatic hyperplasia without lower urinary tract symptoms; D64.9 Anemia, unspecified; G89.4 Chronic pain syndrome; M54.50 Low back pain, unspecified; Z99.81 Dependence on supplemental oxygen; Z98.1 Arthrodesis status; Z87.01 Personal history of pneumonia (recurrent); Z87.891 Personal history of nicotine dependence; Z90.49 Acquired absence of other specified parts of digestive tract; Z79.60 Long term (current) use of unspecified immunomodulators and immunosuppressants; Z86.711 Personal history of pulmonary embolism; Z86.718 Personal history of other venous thrombosis and embolism; R94.31 Abnormal electrocardiogram [ECG] [EKG]
CPT/HCPCS: 36415; 36600; 71046; 80053; 81003; 82375; 82805; 83050; 83605; 85018; 85025; 85055; 85610; 85730; 86140; 87040; 87181; 87637; 87641; 93005; 94002; 94640; 96361; 96365; 96366; 96367; 96375; 99291; A9270; J0692; J2060; J2405; J2919; J3370; J7120

== ENCOUNTER 2024-09-10 10:38 | HOS | payer OTHER, MEDICARE, MEDICAID, SELFPAY ==
[2024-09-10 12:10] VITALS: BP 102/60; PULSE 98; RESP 22; TEMP 36.7; O2SAT 96
--- OUTSIDE RECORDS SUMMARY | 2024-09-10 12:38 | XMS_ITS | CONTINUITY OF CARE DOCUMENT ---
Author Name sheila sosa Address Unknown Organization [facility] Address [address] [place] [address] Phone [phone] Care Team Providers Care Apprentice Photographer Name Role Phone Bernabe ADRIAN, Bryan Unavailable PATTI TEMPLETON Unavailable [phone] BRIAN ADRIAN, ABRIL CAICEDO Unavailable PROBLEMS Condition [...] encounter Office Visit Bryan Kidd MD [facility] [place] Office COPDVentricular tachycardiaTobacco abuseAtrial myxoma, leftNeuropathyPulmonary noduleScreeningFAMILY [...] Dates Provider Indications Com ments VITAMIN D3 [id number] UNIT ORAL TABLET active TAKE ONE TAB [...] CAPSULE BY MOUTH EVERY DAY 8 Chastity Mraylu #30, 30 days supply, Prescribed by JUSTINA [...] Payer name Policy type / Coverage type [place] party [place] (2) Medicaid [id number] ADVANCE DIRECTIVES Name Date DISCUSSED - NO [...]
--- OUTSIDE RECORDS SUMMARY | 2024-09-10 12:38 | XMS_ITS | Clinical Summary ---
Author Organization [facility] Address [address] [place] [address] Care Team Providers Care Workers Compensation Claims Supervisor Name Role Phone Nathen Vicente MD Primary Care Provider [phone] Allergies Active Allergy Reactions Criticality Noted Date [...] ON HOLD Active naloxone (Narcan) 4 mg/spray [place], Non-Aerosol Narcan 4 mg/actuation nasal spray 1 [...] be different from the original. 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 04/17/2021 Acute saddle pulmonary embolism without acute co r pulmonale 02/11/2019 Non-small cell cancer of right lung 07/16/2018 Cancer Staging:Clinical:Stage IV(cM1) - Unsigned Encounters Date Type Department Care Team Description 09/08/2024 Refill [facility] Pulmonology [facility] [address] [place] [address] Orlando Vela MD 09/08/2024 Orders Only [facility] Oncology and Hematology - [place] [address] [place] [address] Jefferson Baez MD Non-small cell cancer of right lung ([facility]/HCC) 09/03/2024 External Device Data STL ABSTRACTION Provider, Abstract 09/01/2024 Orders Only [facility] Oncology and Hematology - [address] [place] [phone] Jefferson Baez MD Non-small cell cancer of right lung (CMS/HCC) 08/27/2024 Orders Only [facility] Oncology and Hematology - [address] [place] [address] Jefferson Baez MD 08/26/2024 External Device Data STL ABSTRACTION Provider, Abstract 08/26/2024 External Device Data STL ABSTRACTION Provider, Abstract 08/25/2024 Orders Only [facility] Oncology and Hematology - [address] [place] [address] Jefferson Baez MD Non-small cell cancer of right lung (CMS/HCC) 08/23/2024 Refill [facility] Oncology and Hematology - [address] [place] [address] Jefferson Baez MD 08/21/2024 Orders Only [facility] Oncology and Hematology - [address] [place] [address] Jefferson Baez MD 08/21/2024 Abstract [facility] Oncology and Hematology - [place] [place] [address] Jefferson Baez MD 08/18/2024 Orders Only [facility] Oncology and Hematology - [address] [place] [address] Jefferson Baez MD Non-small cell cancer of right lung (CMS/HCC) 08/15/2024 9:45 AM INTERVENTION SPECIALIST Office Visit [facility] Oncology and Hematology - [address] [place] [address] Jefferson Baez MD Chronic anemia (Primary Dx); Non-small cell cancer of right lung (CMS/HCC); Hypothyroidism, unspecified type; Anemia due to chemotherapy 08/11/2024 Orders Only [facility] Oncology and Hematology - [place] [place] [phone] Jefferson Baez MD Non-small cell cancer of right lung (CMS/HCC) 08/05/2024 External Device Data STL ABSTRACTION Provider, Abstract 08/04/2024 Orders Only [facility] Oncology and Hematology - [address] [place] [address] Jefferson Baez MD Non-small cell cancer of right lung (CMS/HCC) 07/29/2024 Refill [facility] Oncology and Hematology - [address] [place] [address] Jefferson Baez MD 07/28/2024 Orders Only [facility] Oncology and Hematology - [address] [place] [address] Jefferson Baez MD Non-small cell cancer of right lung (CMS/HCC) 07/21/2024 Orders Only [facility] Oncology and Hematology - [address] [place] [address] Jefferson Baez MD Non-small cell cancer of right lung (CMS/HCC) 07/14/2024 Orders Only [facility] Oncology and Hematology - [place] [place] [address] Jefferson Baez MD Non-small cell cancer of right lung (CMS/HCC) 07/10/2024 Telephone [facility] Pulmonology [address] [place] [address] Orlando Vela MD Information 07/09/2024 External Device Data STL ABSTRACTION Provider, Abstract 07/09/2024 External Device Data STL ABSTRACTION Provider, Abstract 07/08/2024 Telephone [facility] Pulmonology [address] [place] [address] Orlando Vela MD Results (CT chest); Needs Orders Written (Airway Clearance vest) 07/07/2024 Orders Only [facility] Oncology and H[facility] [address] [place] [address] Jefferson Baez MD Non-small cell cancer of right lung (CMS/HCC) 07/02/2024 9:15 AM INTERVENTION SPECIALIST Office Visit [facility] Oncology and Hematology [facility] [address] [place] [address] Jefferson Baez MD Non-small cell cancer of right lung (CMS/HCC) (Primary Dx); Prostate cancer screening 07/02/2024 External Device Data STL ABSTRACTION Provider, Abstract 07/02/2024 Telephone [facility] Oncology and Hematology [facility] [address] [place] [address] Jefferson Baez MD Dye Study 07/02/2024 Orders Only [facility] Oncology and Hematology [address] [place] [address] Jefferson Baez MD 07/02/2024 Telephone [facility] Pulmonology [address] [place] [address] Orlando Vela MD Insurance Issues (Out of state, cannot do video visit) 07/01/2024 Telephone [facility] Oncology and Hematology - [place] [address] [place] [address] concerns/Results 06/30/2024 Orders Only [facility] Oncology and Hematology - [address] [place] [phone] Jefferson Baez MD Non-small cell cancer of right lung (CMS/HCC) 06/27/2024 Orders Only [facility] Oncology and Hematology - [place] [place] [phone] Jefferson Baez MD 06/26/2024 Telephone [facility] Pulmonology [address] [place] [address] Orlando Vela MD Results (CT chest); Wants Appointment 06/26/2024 Orders Only [facility] On[facility] and Hematology - [address] [place] [address] Jefferson Baez MD 06/25/2024 Refill [facility] Oncology and Hematology - [place] [place] [address] Jefferson Baez MD 06/24/2024 External Device Data STL ABSTRACTION Provider, Abstract 06/23/2024 Orders Only [facility] On[facility] Hematology - [address] [place] [address] Jefferson Baez MD Non-small cell cancer of right lung (CMS/HCC) 06/16/2024 Orders Only [facility] Oncology and Hematology - [address] [place] [address] Jefferson Baez MD Non-small cell cancer of right lung (CMS/HCC) from Last 3 Months Immunizations Immunization Administration Dates Next Due (Perfusix)(12 YR UP) COVID-19 VACCINE - EMERGENCY USE AUTHORIZATION, MRNA, [id number](PF) 30 MCG/0.3 ML IM SUSP 09/16/2020,08/16/2020 Influenza [...] Sex Assigned at Male 07/02/2023 2:30 PM INTERVENTION SPECIALIST Legal Sex Male 1:30 PM INTERVENTION SPECIALIST Gender Identity Male 07/02/2023 2:30 PM INTERVENTION SPECIALIST Sexual Orientation Bisexual 07/02/2023 2: 30 PM INTERVENTION SPECIALIST Sexual Orientation Straight 07/02/2023 2: 30 PM INTERVENTION SPECIALIST Last Filed Vital Signs Vital Sign Reading Time Taken Comments Blood Pressure 131/80 08/15/2024 9:52 AM INTERVENTION SPECIALIST Pulse 100 08/15/2024 9:52 AM INTERVENTION SPECIALIST Temperature 36.2 C (97.1 F) 08/15/2024 9:52 AM INTERVENTION SPECIALIST Respiratory Rate 15 08/15/2024 9:52 AM INTERVENTION SPECIALIST Oxygen Saturation 96% 08/15/2024 9:52 AM INTERVENTION SPECIALIST Inhaled Oxygen Concentration - - Weight 93.3 kg (205 lb 9.6 oz) 08/15/2024 9:52 A M INTERVENTION SPECIALIST Height 185.4 cm (6' 1 ) 04/23/2024 11:38 AM INTERVENTION SPECIALIST Body Mass Index 27.13 04/23/2024 11:38 AM INTERVENTION SPECIALIST Plan of Treatment Health Maintenance Due Date [...] 05/21/2024 05/21/2021 Medical Devices Implanted Type Area Care Center Manager Device Identifier Shelf Expiration Date Model / Serial / Lot Clip Ligating [place] [id number] - Csc - [id number] Implanted:Qty: 1 on 05/20/2021 by Bandar Alberto MD at [facility] Clip N/A: Chest [employer]LE[employer]LEX INC 10/25/2025 [id number] / / [id number] Clip Ligating Horizon Med Ti [id number] - Csc - [id number] Implanted:Qty: 1 on 05/20/2021 by Bandar Alberto MD at [facility] Clip N/A: Chest TELEFLEX- WECK CLOSURE SYS 11/22/2025 [id number] / / [id number] Patch Pericardial 9x14 C0914 - [id number] Implanted:Qty: 1 on 05/20/2021 by Bandar Alberto MD at [facility] Graft N/A: Heart [facility] [employer] [id number] 05/22/2023 C0914 / / [id number] Hemostat Maco Surg Mph Pwd 3gm Sx8119 - [id number] Implanted:Qty: 1 on 05/20/2021 by Bandar Alberto MD at [facility] Hemostatic N/A: Chest CR BARD[employer] [id number] 12/13/2025 [id number] / / [id number] Spinal Hardware Procedures Procedure Name Priority Date/Time Associated Diagnosis Comments CBC WITH DIFFERENTIAL Routine 08/27/2024 4:05 PM CDT BASIC METABOLIC PANEL Routine 08/27/2024 4:01 PM CDT CBC WITH DIFFERENTIAL Routine 08/15/2024 1:55 PM INTERVENTION SPECIALIST IRON, TIBC, AND PERCENT SATURATION Routine 08/15/2024 9:51 AM INTERVENTION SPECIALIST CBC WITH DIFFERENTIAL Routine 07/18/2024 9:32 AM INTERVENTION SPECIALIST XR PORT CONTRAST INJECT W FLUORO Routine 07/11/2024 11:02 AM INTERVENTION SPECIALIST COMPREHENSIVE METABOLIC PANEL Routine 07/02/2024 3:57 PM INTERVENTION SPECIALIST CBC WITH DIFFERENTIAL Routine 07/02/2024 3:[address] CHEST W CONTRAST Routine 06/25/2024 1 :01 PM INTERVENTION SPECIALIST IRON PANEL Routine 06/20/2024 11:09 AM INTERVENTION SPECIALIST VITAMIN B12 LEVEL Routine 06/20/2024 10: 54 AM INTERVENTION SPECIALIST CBC WITH DIFFERENTIAL Routine 06/20/2024 10:22 AM INTERVENTION SPECIALIST HEMOGLOBIN A1C Routine 05/21/2021 4:14 AM INTERVENTION SPECIALIST from Last 3 Months or Most Recently Relevant to Health Maintenance Results * CBC WITH DIFFERENTIAL (08/27/2024 4:05 PM CDT) Only the most recent of5 resultswithin the time period is included. Blood Jefferson Baez MD HEMATOLOGY ORDERABLES Final Res ult * BASIC METABOLIC PANEL (08/27/2024 4:01 PM CDT) Blood us Jefferson Baez MD CHEMISTRY ORDERABLES Final Resu lt * IRON, TIBC, AND PERCENT SATURATION (08/15/2024 9:51 AM INTERVENTION SPECIALIST) Blood us Jefferson Baez MD CHEMISTRY ORDERABLES Final Resu lt * XR PORT CONTRAST INJECT W FLUORO (07/11/2024 11:02 AM INTERVENTION SPECIALIST) Anatomical Region Laterality Modality Other Jefferson Baez MD DIAGNOSTIC IMAGING ORDERABLES F inal Result * COMPREHENSIVE METABOLIC PANEL (07/02/2024 3:57 PM INTERVENTION SPECIALIST) Blood Jefferson Baez MD CHEMISTRY ORDERABLES Final Resu lt * CT CHEST W CONTRAST (06/25/2024 1:01 PM INTERVENTION SPECIALIST) Anatomical Region Laterality Modality Chest Computed Tomogra phy Jefferson Baez MD CT ORDERABLES Final Result * IRON PANEL (06/20/2024 11:09 AM INTERVENTION SPECIALIST) Blood Jefferson Baez MD CHEMISTRY ORDERABLES Final Resu lt * VITAMIN B12 LEVEL (06/20/2024 10:54 AM INTERVENTION SPECIALIST) Blood Result [facility] Jefferson Baez MD CHEMISTRY ORDERABLES Final Resu lt * (ABNORMAL) HEMOGLOBIN A1C (05/21/2021 4:14 AM INTERVENTION SPECIALIST) HEMOGLOBIN A1C 5.8(H) <5.7 % 05/21/2021 8:06 AM INTERVENTION SPECIALIST [facility] EST. AVG GLUCOSE, A1C 120 mg/dL 05/21/2021 8:06 AM INTERVENTION SPECIALIST [facility] Blood Venipuncture / Unknown 05/21/2021 4:14 AM INTERVENTION SPECIALIST 05/21/2021 4:21 AM INTERVENTION SPECIALIST Narrative [facility] - 05/21/2021 8:06 AM INTERVENTION SPECIALIST HGB A1C INTERPRETATION NORMAL: <5.7% PRE-DIABETES: 5.7 - 6.4% DIABETES: 6.5% OR GREATER Lisa MURPHY CHEMISTRY ORDERABLES Mckenzie gonsales [facility] Organization Address City/State/ZIP Co de Phone Number [facility]# [id number] [address] [place] [address] from Last 3 Months or Most Recently Relevant to Health Maintenance Additional Health Concerns Infection Onset Date Last Indicated R/O C. diff 06/23/2022 06/23/2022 Insurance [employer] [facility] [employer] [facility] MEDICAID [place] Advance Directives For more information, please contact: [phone] Documents on File Type Date Recorded Patient Strip Machine Tender Expl anation Advance Directive POA 12/12/2022 12:46 [...] 8:40 AM 04/23/2021 2:53 AM Care Teams Workers Compensation Claims Supervisor Relationship Specialty Start Date End Date Nathen Vicente MD [address] [place] [address] PCP - General Family Practice 08/15/24
--- OUTSIDE RECORDS SUMMARY | 2024-09-10 12:38 | XMS_ITS | Clinical Summary ---
Author Organization [facility] Address [address] [place] [address] Care Team Providers Care Director News Name Role Phone Camden Bran Primary Care Provider + Edilma Lubin BURRING WHEEL OPERATOR Unavailable [phone] Allergies Active Allergy Reactions Criticality Noted Date Comments Venom-Honey Bee Anaphylaxis High 08/29/2018 Wasp Venom Anaphylaxis High 08/29/2018 Wasp Venom Protein Starter Kit Anaphylaxis High 08/16 Medications triamcinolone (KENALOG) 0.1 % cream as needed Active pregabalin (LYRICA) 225 mg capsule Take 1 capsule (225 mg total) by mouth 2 (two) times a day 4 Active cholecalciferol (VITAMIN D-3) 11850 unit tablet Take 1 tablet (50,000 Units [...] on file Legal Sex Male 8:58 PM RACING SECRETARY Gender Identity Male 03/18/2024 2:40 PM CDT [...] Screening-Colonoscopy 10/23/20262016 Medical Devices Implanted Type Area Bacteriology Teacher Device Identifier Shelf Expiration Date Model / Serial / Lot Medtronic Inc Ascenda 4fr .5mm 114cm 86cm 2 Piece Connector Pin Flexible Closed 8780 - [id number] Implanted:Qty: 1 on 10/11/2023 by Gerry Trivedi MD at [facility] Left: Abdomen Medtronic Inc 09/19/2025 8780 / / [id number] Medtronic Usa [employer] X Pump Infusion Programmable Ulp Ami 40ml Volume Synchromed Iii 8667-40 - [id number] - [id number] Implanted:Qty: 1 on 10/11/2023 by Gerry Trivedi MD at [facility] Left: Abdomen Medtronic U[employer] Inc X 03/01/2025 8667-40 / [id number] / Medtronic Inc Tyrx 3.35x3in Large Envelope Absorbable Polyarylate Minocycline [id number] - [id number] Implanted:Qty: 1 on 10/11/2023 by Gerry Trivedi MD at [facility] Left: Abdomen Medtronic Inc 05/22/2024 [id number] / / [id number] Medtronic Inc Vectris 5mm 75cm 1x8 Electrode Compact Mri Lead Neurostimulator [id number] - [id number] Implanted:Qty: 1 on 02/28/2024 by Gerry Trivedi MD at [facility] N/A: Back Medtronic Inc 11/19/2027 977 A275 / / [id number] Medtronic Inc Generator Pulse Inceptiv Sys Stm Electrcl Analges Implant [id number] - [id number] - [id number] Implanted:Qty: 1 on 02/28/2024 by Gerry Trivedi MD at [facility] N/A: Back Medtronic Inc 977 119 / [id number] / Medtronic Inc Vectris 5mm 75cm 1x8 Electrode Compact Mri Lead Neurostimulator [id number] - [id number] Implanted:Qty: 1 on 02/28/2024 by Gerry Trivedi MD at [facility] N/A: Back Medtronic Inc 05/28/2027 977 [id number] / / [id number] Medtronic Inc Envelope Absrb 2.7x2.5in Antibacterial Tyrx Medium Strl [id number] - [id number] Implanted:Qty: 1 on 02/28/2024 by Gerry Trivedi MD at [facility] N/A: Back Medtronic Inc 10/06/2024 NMR M6122 / / [id number] Procedures Procedure Name Priority Date/Time Associated Diagnosis [...] agrees with it. ACC# Date Time Exam [id number] October 23, 2016 10:41:[address] Colonography Dx w/o ACC# Date Time Exam [id number] October 23, 2016 10:41:[address] Colonography Dx w/o EXAMINATION: CT colonography [...] ZAPATA M.D. on Oct 23 2016 4:41P [id number] Procedure Note Miscellaneous, Not In File / Provider, MD Kaye - 11/11/2016 MARTA ZAPATA M.D. FLOYD BOYLE MD FINAL REPORT The radiology attending physician has personally reviewed this study, and has reviewed and/or edited this written report and agrees with it. ACC# Date Time Exam [id number] October 23, 2016 10:41:[address] Colonography Dx w/o ACC# Date Time Exam [id number] October 23, 2016 10:41:[address] Colonography Dx w/o EXAMINATION: CT colonography [...] ZAPATA M.D. on Oct 23 2016 4:41P [id number] us Not In File Miscellaneous IMG CT PROCEDURES Mckenzie l Result from Last 3 Months or Most Recently Relevant to Health Maintenance Insurance [address] [place] [address] HUMANA MEDICARE HMO HUMANA MEDICARE HMO Care Teams Director News Relationship Specialty Start Date End Date Camden Bran PA [address] [place] [address] PCP - General Internal Medicine 04/16/24 [place] [address] [address] Nurse Practitioner Machine Cloth Trimmer 04/16/24
--- OUTSIDE RECORDS SUMMARY | 2024-09-10 12:38 | XMS_ITS | Referral Summary ---
Author Organization [facility] Address [address] [place] [address] Care Team Providers Care Cooker Chip Name Role Phone Camden Bran Primary Care Provider + Edilma Lubin GRAPPLER Unavailable [phone] Allergies Active Allergy Reactions Criticality Noted Date Comments Venom-Honey Bee Anaphylaxis High 08/29/2018 Wasp Venom Anaphylaxis High 08/29/2018 Wasp Venom Protein Starter Kit Anaphylaxis High 08/16 Medications triamcinolone (KENALOG) 0.1 % cream as needed Active pregabalin (LYRICA) 225 mg capsule Take 1 capsule (225 mg total) by mouth 2 (two) times a day 4 Active cholecalciferol (VITAMIN D-3) 93657 unit tablet Take 1 tablet (50,000 Units [...] on file Legal Sex Male 8:58 PM CODING MACHINE OPERATOR Gender Identity Male 03/18/2024 2:40 PM CDT [...] on file Medical Devices Implanted Type Area Fuel System Maintenance Supervisor Device Identifier Shelf Expiration Date Model / Serial / Lot Medtronic Inc Ascenda 4fr .5mm 114cm 86cm 2 Piece Connector Pin Flexible Closed 8780 - [id number] Implanted:Qty: 1 on 10/11/2023 by Gerry Trivedi MD at [facility] Left: Abdomen Medtronic Inc 09/19/2025 8780 / / [id number] Medtronic Usa Inc X Pump Infusion Programmable Ulp Ami 40ml Volume Synchromed Iii 8667-40 - [id number] - [id number] Implanted:Qty: 1 on 10/11/2023 by Gerry Trivedi MD at [facility] Left: Abdomen Medtronic Usa Inc X 03/01/2025 8667-40 / [id number] / Medtronic Inc Tyrx 3.35x3in Large Envelope Absorbable Polyarylate Minocycline [id number] - [id number] Implanted:Qty: 1 on 10/11/2023 by Gerry Trivedi MD at [facility] Left: Abdomen Medtronic Inc 05/22/2024 [id number] / / [id number] Medtronic Inc Vectris 5mm 75cm 1x8 Electrode Compact Mri Lead Neurostimulator [id number] - [id number] Implanted:Qty: 1 on 02/28/2024 by Gerry Trivedi MD at [facility] N/A: Back Medtronic Inc 11/19/2027 977 A275 / / [id number] Medtronic Inc Generator Pulse Inceptiv Sys Stm Electrcl Analges Implant [id number] - [id number] - [id number] Implanted:Qty: 1 on 02/28/2024 by Gerry Trivedi MD at [facility] N/A: Back Medtronic Inc 977 119 / [id number] / Medtronic Inc Vectris 5mm 75cm 1x8 Electrode Compact Mri Lead Neurostimulator [id number] - [id number] Implanted:Qty: 1 on 02/28/2024 by Gerry Trivedi MD at [facility] N/A: Back Medtronic Inc 05/28/2027 977 A275 / / [id number] Medtronic Inc Envelope Absrb 2.7x2.5in Antibacterial Tyrx Medium Strl [id number] - [id number] Implanted:Qty: 1 on 02/28/2024 by Gerry Trivedi MD at [facility] N/A: Back Medtronic Inc 10/06/2024 NMR M6122 / / [id number] Procedures Procedure Name Priority Date/Time Associated Diagnosis [...] agrees with it. ACC# Date Time Exam [id number] October 23, 2016 10:41:[address] Colonography Dx w/o ACC# Date Time Exam [id number] October 23, 2016 10:41:[address] Colonography Dx w/o EXAMINATION: CT colonography [...] ZAPATA M.D. on Oct 23 2016 4:41P [id number] Procedure Note Miscellaneous, Not In File / Provider, MD Kaye - 11/11/2016 MARTA ZAPATA M.D. FLOYD BOYLE MD FINAL REPORT The radiology attending physician has personally reviewed this study, and has reviewed and/or edited this written report and agrees with it. ACC# Date Time Exam [id number] October 23, 2016 10:41:[address] Colonography Dx w/o ACC# Date Time Exam [id number] October 23, 2016 10:41:[address] Colonography Dx w/o EXAMINATION: CT colonography [...] ZAPATA M.D. on Oct 23 2016 4:41P [id number] us Not In File Miscellaneous IMG CT PROCEDURES Mckenzie l Result from Last 3 Months or Most Recently Relevant to Health Maintenance Insurance [address] [place] [address] [facility] MEDICARE HMO HUMANA MEDICARE HMO Care Teams Cooker Chip Relationship Specialty Start Date End Date Camden Bran PA [address] [place] [address] PCP - General Internal Medicine 04/16/24 [place] [address] [facility] [address] [place] [address] Nurse Practitioner Wrapper Rewinder 04/16/24
--- OUTSIDE RECORDS SUMMARY | 2024-09-10 12:38 | XMS_ITS | Continuity of Care Document ---
Author Organization [facility] Address [address] [place] [address] Phone Care Team Providers Care Booking Police Officer Name Role Phone Danny Manzo MD Unavailable Unavailable Advance Directives Directive Yes / No Effective Date File Name No Information Encounters Encounter Description Practice Location Reason(s) For Visit Diagnoses Date Provider Providers Copied on Encounter [facility], [address], [place], [place], [id number], [place] tel:[phone] [facility] Jovany Delgado. [address] [place], [place], [id number], [place]. tel:[phone] Family History Family Member Type Diagnosis Age [...]
--- OUTSIDE RECORDS SUMMARY | 2024-09-10 12:38 | XMS_ITS ---
Author Organization [facility] Address [address] [place] [address] Care Team Providers Care Print Shop Chief Clerk Name Role Phone Camden Bran Primary Care Provider + Edilma Lubin BMW SERVICE TECHNICIAN Unavailable [phone] Active Problems Problem Noted Date Diagnosed Date [...]
--- OUTSIDE RECORDS SUMMARY | 2024-09-10 12:38 | XMS_ITS | Encounter Summary ---
Author Organization [facility] Address [address] [place] [address] Care Team Providers Care Electroplating Laborer Name Role Phone Nathen Vicente MD Primary Care Provider [phone] Reason for Visit * Reason Comments Med Refill Encounter Details Date Type Department Care Team (Late st Contact Info) Description 05/25/2024 Telephone [facility] At [address] [place] [address] Kieran Og MD [address] [place] [address] [address] [place] [address] Med Refill Social History Tobacco [...] Sex Assigned at Male 07/02/2023 2:30 PM FOOD OPERATIONS MANAGER Legal Sex Male 1:30 PM FOOD OPERATIONS MANAGER Gender Identity Male 07/02/2023 2:30 PM FOOD OPERATIONS MANAGER Sexual Orientation Bisexual 07/02/2023 2: 30 PM FOOD OPERATIONS MANAGER Sexual Orientation Straight 07/02/2023 2: 30 PM FOOD OPERATIONS MANAGER documented as of this encounter Miscellaneous Notes * Telephone Encounter - Elizabeth Collins RN - 05/27/2024 4:13 PM CST Ed Cox, this pt will need another appointment with Dr Og before we can send refills. Thank you OPERATIONS MANAGER * Telephone Encounter - Brooke Kingston - [...] Mix with 100 ml liquid Diphenhydramine 12.5mg/5ml acj452 ml Mylanta (or Maalox). Shake to mix before using. Swallow 15 mL immediately before meals and at bedtime as needed for painful swallowing. Do not swish. 100 mL 1 furosemide (LASIX) 40 mg tablet Take 40 mg by mouth daily. PRN ONLY ibandronate (BONIVA) 150 mg tablet 11/2021 MEDICATION IS ON HOLD naloxone (Narcan) 4 mg/spray [place], Non-Aerosol Narcan 4 mg/actuation nasal spray 1 [...] No current facility-administered medications for this visit. OPERATIONS MANAGER documented in this encounter Plan of Treatment Not on file documented as of this encounter Visit Diagnoses Not on filedocumented in this encounter Additional Health Concerns Infection Onset Date Last Indicated Resolved Time R/O C. diff 06/23/2022 06/23/2022 documented as of this encounter Care Teams Electroplating Laborer Relationship Specialty Start Date End Date Nathen Vicente MD [address] [place] [address] PCP - General Family Practice 08/15/24 documented as of this encounter
--- OUTSIDE RECORDS SUMMARY | 2024-09-10 12:38 | XMS_ITS | Clinical Summary ---
Author Organization [facility] Address [address] [place] [address] Care Team Providers Care Radio Producer Name Role Phone Iona Torres MD Primary Care Provider [phone] Source Comments [facility],non-owned Affiliates and Associated Physician Practices is amultiple site organization consisting of ambulatory clinics and hospital sitesin [place], [place], [place] and [place]. This disclosure is being madepursuant to the Care Everywhere program and may not contain all information available regarding this patient. Last updated 18.[facility] Allergies Active Allergy Reactions Criticality Noted Date [...] as needed 06/17/2018 Active Cholecalciferol (VITAMIN D3) 98064 UNITS capsuleIndication s:Cancer of upper lobe of [...] Sex Assigned at Male 05/18/2021 6:10 PM VOLUNTEER FIRE FIGHTER Gender Identity Male 05/18/2021 6:10 PM VOLUNTEER FIRE FIGHTER Sexual Orientation Straight 05/18/2021 6: 10 PM VOLUNTEER FIRE FIGHTER Last Filed Vital Signs Vital Sign Reading [...] PANEL (CALCIUM TOTAL) STAT 04/23/2019 3:38 PM VOLUNTEER FIRE FIGHTER Benign prostatic hyperplasia with urinary retention from Last 3 Months or Most Recently Relevant to Health Maintenance Results * (ABNORMAL) BASIC METABOLIC PANEL (CALCIUM TOTAL) (04/23/2019 3:38 PM VOLUNTEER FIRE FIGHTER) Pathologist [facility] [place] Glucose 93 70 - 105 mg/dL 04/23/2019 4:10 PM VOLUNTEER FIRE FIGHTER [facility] Sodium 138 136 - 145 mmol/L 04/23/2019 4:10 PM VOLUNTEER FIRE FIGHTER [facility] Potassium 5.7(H) 3.5 - 4.7 mmol/L 04/23/2019 4:10 PM VOLUNTEER FIRE FIGHTER [facility] Chloride 105 98 - 107 mmol/L 04/23/2019 4:10 PM VOLUNTEER FIRE FIGHTER [facility] CO2 24 23 - 31 mmol/L 04/23/2019 4:10 PM VOLUNTEER FIRE FIGHTER [facility] Calcium 9.3 8.4 - 10.4 mg/dL 04/23/2019 4:10 PM VOLUNTEER FIRE FIGHTER [facility] Anion Gap 9 8 - 16 mmol/L 04/23/2019 4:10 PM VOLUNTEER FIRE FIGHTER [facility] BUN 16 8.4 - 25.7 mg/dL 04/23/2019 4:10 PM VOLUNTEER FIRE FIGHTER [facility] Creatinine 0.97 0.72 - 1.25 mg/dL 04/23/2019 4:10 PM VOLUNTEER FIRE FIGHTER [facility] eGFR by MDRD >60 >60 mL/min/1.7 3m2 04/23/2019 4:10 PM VOLUNTEER FIRE FIGHTER [facility] eGFR by MDRD >60 >60 mL/min/1.7 3m2 04/23/2019 4:10 PM VOLUNTEER FIRE FIGHTER [facility] Blood BLOOD SPECIMEN / Unknown Venipuncture / Unknown 04/23/2019 3:38 PM VOLUNTEER FIRE FIGHTER 04/23/2019 3:50 PM VOLUNTEER FIRE FIGHTER Anirudh Paulino MD LAB - CHEMISTRY LALITHA SOL [facility] Organization Address City/State/ZIP Co de Phone Number [facility] [address] [place] [address] from Last 3 Months or [...] 11:02 AM 09/02/2018 7:02 PM Care Teams Radio Producer Relationship Specialty Start Date End Date Iona Torres MD [address] [place] [address] [address] [place] [id number] PCP - General 07/04/18
--- OUTSIDE RECORDS SUMMARY | 2024-09-10 12:38 | XMS_ITS ---
Author Organization [facility] [place] Address [address] [place] [address] Care Team Providers Care Catering Operations Manager Name Role Phone Nathen Vicente MD Primary Care Provider [phone] Active Problems Patient Care Coordination No te Formatting of this note migh t be different from the original. Kieran Og MD--Senior Front End Developer ([facility] @ ) Problem Noted [...] radiation therapy 04/17/2021 Chronic pain syndrome 04/17/2021 custodial prescription opiate use 04/17/2021 Acute saddle pulmonary [...]
--- OUTSIDE RECORDS SUMMARY | 2024-09-10 12:38 | XMS_ITS | Encounter Summary ---
Author Organization [facility] Address [address] [place] [address] Care Team Providers Care Binding Nicker Name Role Phone Nathen Vicente MD Primary Care Provider [phone] Encounter Details Date Type Department Care Team (Late st Contact Info) Description 11/19/2018 Chart Note [facility] Radiation Therapy [address] [place] [address] [place] [address] [place] [address] Social History Tobacco Use Types Packs/Day Years Used Date Smoking Tobacco: Former Cigarettes 2 40 0 06/25/1978 - 06/25/2018 Smokeless Tobacco: Current Alcohol Use Standard Drinks/Week Comments No 0 (1 standard drink = 0.6 oz pur e alcohol) Sex and Gender Information Value Date Recorded Sex Assigned at Male 07/02/2023 2:30 PM ENERGY DERIVATIVES TRADER Legal Sex Male 1:30 PM ENERGY DERIVATIVES TRADER Gender Identity Male 07/02/2023 2:30 PM ENERGY DERIVATIVES TRADER Sexual Orientation Bisexual 07/02/2023 2: 30 PM ENERGY DERIVATIVES TRADER Sexual Orientation Straight 07/02/2023 2: 30 PM ENERGY DERIVATIVES TRADER documented as of this encounter Plan of Treatment Not on file documented as of this encounter Visit Diagnoses Not on filedocumented in this encounter Additional Health Concerns Infection Onset Date Last Indicated Resolved Time R/O C. diff 06/23/2022 06/23/2022 documented as of this encounter Care Teams Binding Nicker Relationship Specialty Start Date End Date Nathen Vicente MD [address] [place] [phone] PCP - General Family Practice 08/15/24 documented as of this encounter
--- OUTSIDE RECORDS SUMMARY | 2024-09-10 12:38 | XMS_ITS | Encounter Summary ---
Author Organization [facility] Address [address] [place] [address] Care Team Providers Care Media Consultant Name Role Phone Nathen Vicente MD Primary Care Provider [phone] Encounter Details Date Type Department Care Team (Late st Contact Info) Description 09/08/2024 Orders Only [facility] Oncology and Hematology - [place] [address] [facility] [[email or web address] [address] [place] [address] Jefferson Baez MD [address] [facility] [address] [place] [address] Non-small cell cancer of right [...] Sex Assigned at Male 07/02/2023 2:30 PM ODD SHOE EXAMINER Legal Sex Male 1:30 PM ODD SHOE EXAMINER Gender Identity Male 07/02/2023 2:30 PM ODD SHOE EXAMINER Sexual Orientation Bisexual 07/02/2023 2: 30 PM ODD SHOE EXAMINER Sexual Orientation Straight 07/02/2023 2: 30 PM ODD SHOE EXAMINER documented as of this encounter Plan of Treatment Not on file documented as of this encounter Visit Diagnoses Diagnosis 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 diff 06/23/2022 06/23/2022 documented as of this encounter Care Teams Media Consultant Relationship Specialty Start Date End Date Nathen Vicente MD [address] [place] [address] PCP - General Family Practice 08/15/24 documented as of this encounter
[2024-09-10] MEDS: MORPHINE SULFATE (*CRX) 4 MG/ML INJ 8 MG IV PUSH ×2 (13:30→21:44)
[2024-09-10] MEDS: LORazepam INJ (*CRX) 2 MG/ML VIAL 0.5 MG IV PUSH ×3 (13:31→20:39)
[2024-09-10] MEDS: MORPHINE SULFATE INJ (*CRX) 50 MG in SODIUM CHLORIDE 0.9% IV 95 ML 8 MG IV CONT (14:02)
[2024-09-10 20:00] VITALS: BP 97/58; PULSE 101; RESP 14; TEMP 37.3; O2SAT 92
--- NOTE | 2024-09-10 20:41 | P.HP_ITS ---
H&P: HPI History of Present Illness Date/Time: 09/10/24 20:41 Chief Complaint: shortness of breath Narrative: 64 y/o m with stage 4 NSC lung CA on 3.5 LPM NC oxygen at home presented had completed chemoradiation therapy and inititated Keytruda. He presented to ED 09/10/24 with 4 days of gradually worsening dyspnea. He arrived requiring 15 LPM nasal oxygen due to hypoxemia. CXR showed : 1. Chronic right perihilar mass with right lung volume loss, consistent with radiation fibrosis. 2. Worsened airspace opacities in right perihilar region, consistent with atelectasis/scarring versus pneumonia. 3. Small pleural effusions with worsening on the right. 4. Sclerotic bone lesions, consistent with metastatic disease. He was febrile and WBC was 14 K with with 87% neutrophils and no immature forms. He was placed on BiPap but opted for DNR status and comfort care with inpatient hospice service. Review of Systems Review of Systems: ROS unobtainable: Yes unobtainable due to medical condition [facility] Past Medical History Medical History (Updated 09/11/24 @ 00:00 by Dani Wells) History of recurrent pneumonia Chronic anticoagulation Chronic respiratory failure with hypoxia, on home oxygen therapy Chronic obstructive pulmonary disease uses 3 L prn Benign prostatic hyperplasia Chronic anemia Seasonal allergies History of pulmonary embolism (12/2018) History of DVT (deep vein thrombosis) Right upper extremity DVT and bilateral PE December 2018 for which he took Xarelto for several months. Anxiety Peripheral neuropathy Chronic pain syndrome Due to chronic lower back pain after complications with lower spinal fusion 2009. Hypertension Reports he is no longer on medications for such. Atrial fibrillation s/p cardiac ablation by Dr. Tom Oakley at [facility] Adenocarcinoma, lung Non-small cell carcinoma diagnosed June 2018. Follows with Dr. Baez and Dr. Cavazos; underwent radiation therapy from 12/05/2018 to 12/18/2018 and again in fall 2021 due to recurrence. Now with metastatic disease to lymph nodes and bone. He is currently receiving chemotherapy and has planned to start Keytruda on August 18. 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 Followed by Dr. Parson at [facility] last seen around December 2018. Surgical History Surgical History History of cholecystectomy History of transurethral resection of prostate History of open heart surgery (~2018) Status post resection of atrial myxoma. History of lumbar fusion Anterior and posterior L4-S1 fusion 2009 History of appendectomy In the 90s History of carpal tunnel release Left 2011 History of elbow surgery Left elbow ulnar neurolysis Family History Family History Father Acute myocardial infarction Pulmonary embolism Sibling Breast cancer Mother Family history of chronic obstructive pulmonary disease Social History Social History Social History: Mr. Garay lives with his ex- Edna in [place]. They have 2 children. 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 He denies significant alcohol use, drinks socially. Smoked 2 packs per day of cigarettes x 40 years and quit 2017. Denies other substance use. Long-term opioid use due to chronic back pain. Ambulates without a cane or walker at home. He designates his ex- as his surrogate decision maker and he wishes to be a full code however, he states he would not want to be on a ventilator for long-term. Smoking packs per day: 2 Smoking cigarettes per day: 40.0 Years smoked: 40 Smoking pack-years: 80.00 Smoking status: Former smoker Second hand tobacco smoke exposure: Yes Alcohol intake: never Substance use: never Substance use type: does not use Do You Feel Safe in your Home?: Yes Lack of Transportation: No Lack of Food: Never True Current Housing: I Have Housing Concerned About Future Housing: No Difficulty Paying Gas/Electric Bills: No Difficulty Paying for Meds: No Currently Unemployed: No Education: Decline to Answer Difficulty w/ Childcare or Family Care: No Living arrangements: with family Occupation/Education: unemployed Spiritual care concerns: No Meds Home Medications and Allergies Home Medications ?Medication ?Instructions ?Recorded ?Confirmed ?Type No Home Medications 09/10/24 09/10/24 History Allergies Allergy/AdvReac Type Severity Reaction Status Date / Time bee venom protein (honey bee) Allergy Unknown Swelling Verified 08/29/24 12:13 alprazolam (From Xanax) AdvReac Intermediate Agitated Verified 08/29/24 12:13 Vital Signs Vital Signs - 24 hr 09/10/24 11:51 09/10/24 12:10 09/10/24 15:40 Temperature 98.0 F Pulse Rate 98 Respiratory Rate 22 H Blood Pressure 102/60 Pulse Oximetry 96 Oxygen Delivery BiPAP Nasal Cannula Oxygen Flow Rate 3 Exam Narrative: HEENT: Pharyngeal mucosa dry. NECK: No JVD. CHEST: Tachypneic, coarse BS with diffuse rhonchi and scattered coarse and fine crackles. HEART: NL S1/S2, regular, no murmur. ABDOMEN: BS hypoactive, soft, nontender. EXTREMITIES: Trace pitting edema of ankles. NEUROLOGIC: CN intact and symmetric to inspection. MUSCULOSKELETAL: No gross deformity to visual inspection. PSYCH: Drowsy. Minimally responsive to verbal or tactile stimuli. Assessment and Plan Assessment and plan (1) Hospice care: Code(s): Z51.5 - Encounter for palliative care Status: Acute Assessment and Plan: * Meets inpatient hospice criteria due to requiring continuous IV morphine for control of dyspnea and pain * PRN palliative regimen ordered (2) Stage IV squamous cell carcinoma of lung: Code(s): C34.90 - Malignant neoplasm of unspecified part of unspecified bronchus or lung Status: Inactive (3) Acute on chronic respiratory failure with hypoxia and hypercapnia: Code(s): J96.21 - Acute and chronic respiratory failure with hypoxia; J96.22 - Acute and chronic respiratory failure with hypercapnia Status: Inactive (4) Post-radiation pneumonitis: Code(s): J70.0 - Acute pulmonary manifestations due to radiation Status: Acute (5) Chronic obstructive pulmonary disease: Qualifiers: COPD type: unspecified COPD Qualified Code(s): J44.9 - Chronic obstructive pulmonary disease, unspecified Code(s): J44.9 - Chronic obstructive pulmonary disease, unspecified Status: Acute (6) Anemia: Code(s): D64.9 - Anemia, unspecified Status: Acute (7) History of embolism: Code(s): Z86.718 - Personal history of other venous thrombosis and embolism Status: Acute
[2024-09-11] MEDS: GLYCOPYRROLATE INJ (*SP) 0.2 MG/ML VIAL 0.1 MG IV PUSH ×4 (00:41→20:37)
[2024-09-11] MEDS: LORazepam INJ (*CRX) 2 MG/ML VIAL 0.5 MG IV PUSH ×3 (00:42→08:05)
[2024-09-11] MEDS: MORPHINE SULFATE INJ (*CRX) 50 MG in SODIUM CHLORIDE 0.9% IV 95 ML 8 MG IV CONT (02:11)
[2024-09-11] MEDS: MORPHINE SULFATE (*CRX) 4 MG/ML INJ 8 MG IV PUSH ×6 (03:54→20:36)
[2024-09-11 08:00] VITALS: BP 148/73; PULSE 146; RESP 20; TEMP 37.2; O2SAT 87
[2024-09-11 08:06] VITALS: PULSE 146; RESP 20; O2SAT 87
--- NOTE | 2024-09-11 10:13 | PC.NURSE ---
RN called Dr. Doll via telephone to obtain orders to help make patient more comfortable. Patient's yelling in the room for help. Patient sitting up saying he cannot breathe and holding chest. No answer at this time.
--- NOTE | 2024-09-11 11:09 | PC.NURSE ---
Dr Doll called RN back with orders to help make patient more comfortable. See MAR.
[2024-09-11] MEDS: LORazepam INJ (*CRX) 2 MG/ML VIAL 1 MG IV PUSH ×3 (11:54→17:08)
[2024-09-11] MEDS: MORPHINE SULFATE INJ (*CRX) 50 MG in SODIUM CHLORIDE 0.9% IV 95 ML 16 MG IV CONT ×2 (11:59→20:09)
[2024-09-11 20:00] VITALS: BP 136/74; PULSE 148; RESP 22; TEMP 37.3; O2SAT 95
[2024-09-12] MEDS: GLYCOPYRROLATE INJ (*SP) 0.2 MG/ML VIAL 0.1 MG IV PUSH ×2 (00:09→21:35)
[2024-09-12] MEDS: LORazepam INJ (*CRX) 2 MG/ML VIAL 1 MG IV PUSH ×3 (00:09→06:01)
[2024-09-12] MEDS: MORPHINE SULFATE INJ (*CRX) 50 MG in SODIUM CHLORIDE 0.9% IV 95 ML 16 MG IV CONT ×2 (01:08→06:00)
[2024-09-12] MEDS: MORPHINE SULFATE (*CRX) 4 MG/ML INJ 8 MG IV PUSH (04:03)
[2024-09-12 08:00] VITALS: BP 148/69; PULSE 120; RESP 24; TEMP 36.9; O2SAT 88
[2024-09-12] MEDS: MORPHINE SULFATE INJ (*CRX) 50 MG in SODIUM CHLORIDE 0.9% IV 95 ML 24 MG IV CONT ×5 (08:12→23:20)
--- NOTE | 2024-09-12 12:40 | P.PNIM_ITS ---
Progress Note: A&P Assessment and Plan (1) Hospice care: Code(s): Z51.5 - Encounter for palliative care Status: Acute Assessment and Plan: * Meets inpatient hospice criteria due to requiring continuous IV morphine for control of dyspnea and pain * PRN palliative regimen ordered * 09/12/2024 required increased morphine, remained intermittently agitated, palliative sedation initiated after discussion with spouse and multiple other family members who were all in agreement (2) Stage IV squamous cell carcinoma of lung: Code(s): C34.90 - Malignant neoplasm of unspecified part of unspecified bronchus or lung Status: Inactive (3) Acute on chronic respiratory failure with hypoxia and hypercapnia: Code(s): J96.21 - Acute and chronic respiratory failure with hypoxia; J96.22 - Acute and chronic respiratory failure with hypercapnia Status: Inactive (4) Post-radiation pneumonitis: Code(s): J70.0 - Acute pulmonary manifestations due to radiation Status: Acute (5) Chronic obstructive pulmonary disease: Qualifiers: COPD type: unspecified COPD Qualified Code(s): J44.9 - Chronic obstructive pulmonary disease, unspecified Code(s): J44.9 - Chronic obstructive pulmonary disease, unspecified Status: Acute (6) Anemia: Code(s): D64.9 - Anemia, unspecified Status: Acute (7) History of embolism: Code(s): Z86.718 - Personal history of other venous thrombosis and embolism Status: Acute (8) Sepsis: Qualifiers: Sepsis type: sepsis due to unspecified organism Sepsis acute organ d ysfunction status: unspecified Qualified Code(s): A41.9 - Sepsis, unspecified organism Code(s): A41.9 - Sepsis, unspecified organism Status: Resolved (9) Bacteremia: Code(s): R78.81 - Bacteremia Status: Acute Subjective Date/time seen: 09/12/24 12:40 Interval history: Sat up on edge of bed. In emotional distress. C/o pain as well. Now sleeping but with intermittent mourning since morphine increased from 8 mg/hr to 12 mg/hr. Family understands that palliative sedation would allow him to rest through his final hours and they wish to initiate that. Review of Systems Review of Systems: ROS unobtainable: Yes unobtainable due to medical condition Exam Narrative: HEENT: Pharyngeal mucosa dry. NECK: No JVD. CHEST: Tachypneic, coarse BS with diffuse rhonchi and scattered coarse and fine crackles. HEART: NL S1/S2, regular, no murmur. ABDOMEN: BS hypoactive, soft, nontender. EXTREMITIES: Trace pitting edema of ankles. NEUROLOGIC: CN intact and symmetric to inspection. MUSCULOSKELETAL: No gross deformity to visual inspection. PSYCH: Drowsy. Minimally responsive to verbal or tactile stimuli. Objective Data Vital Signs Vital Signs: Vital Signs - 24 hr 09/11/24 20:00 09/11/24 20:00 Temperature 99.2 F Pulse Rate 148 H Respiratory Rate 22 H Blood Pressure 136/74 Pulse Oximetry 95 Oxygen Delivery Nasal Cannula Oxygen Flow Rate 3 Intake/Output Intake/Output: Intake & Output 09/09/24 09/10/24 09/11/24 09/12/24 23:59 23:59 23:59 23:59 Intake Total 360.6 255.2 Output Total 1250 1100 Balance -889.4 -844.8 Meds/Results Medications: Active Medications Generic Name Dose Route Start Last Admin Trade Name Freq PRN Reason Stop Dose Admin Artificial Tears 0 drop 09/10/24 13:10 Artificial Tears Ophth Soln 15 Ml Bottle EACH EYE Q12H PRN Dry Eye(s) Bisacodyl 10 mg 09/10/24 13:10 Bisacodyl 10 Mg Suppository RECTAL DAILY PRN Constipation Glycopyrrolate 0.1 mg 09/10/24 13:10 09/12/24 00:09 Glycopyrrolate Inj (*Sp) 0.2 Mg/Ml Vial IV PUSH 0.1 mg Q4H PRN Administration secretions Morphine Sulfate 50 mg/ Sodium 100 mls @ 24 mls/hr 09/10/24 13:10 09/12/24 10:48 Chloride IV CONT 12 mg/hr .Q4H10M JESSICA 24 mls/hr Administration 12 MG/HR Lorazepam 1 mg 09/11/24 11:15 09/12/24 03:48 Lorazepam Inj (*Crx) 2 Mg/Ml Vial IV PUSH 1 mg Q3H PRN Administration ANXIETY/RESTLESSNESS Lorazepam 1 mg 09/11/24 11:15 09/12/24 06:01 Lorazepam Inj (*Crx) 2 Mg/Ml Vial IV PUSH 1 mg Q6HR JESSICA Administration Morphine Sulfate 12 mg 09/12/24 07:20 Morphine Sulfate (*Crx) 4 Mg/Ml Inj IV PUSH Q2H PRN PAIN OR DYSPNEA
[2024-09-12] MEDS: PHENobarbitaL sodium (*CRX) 130 MG/ML VIAL 60 MG IV PUSH ×2 (14:12→21:36)
[2024-09-12] MEDS: LORazepam INJ (*CRX) 2 MG/ML VIAL IV PUSH ×2 (18:45→23:22)
[2024-09-12 20:00] VITALS: BP 138/68; PULSE 125; RESP 22; TEMP 36.7; O2SAT 85
[2024-09-13] MEDS: MORPHINE SULFATE INJ (*CRX) 50 MG in SODIUM CHLORIDE 0.9% IV 95 ML 24 MG IV CONT ×3 (03:48→12:21)
[2024-09-13] MEDS: LORazepam INJ (*CRX) 2 MG/ML VIAL IV PUSH ×2 (06:31→12:21)
[2024-09-13] MEDS: PHENobarbitaL sodium (*CRX) 130 MG/ML VIAL 60 MG IV PUSH (06:32)
[2024-09-13 08:00] VITALS: BP 139/80; PULSE 125; RESP 22; TEMP 36.9; O2SAT 88
--- NOTE | 2024-09-13 10:59 | P.PNIM_ITS ---
Progress Note: A&P Assessment and Plan (1) Hospice care: Code(s): Z51.5 - Encounter for palliative care Status: Acute Assessment and Plan: * Meets inpatient hospice criteria due to requiring continuous IV morphine for control of dyspnea and pain * PRN palliative regimen ordered * 09/12/2024 required increased morphine, remained intermittently agitated, palliative sedation initiated after discussion with spouse and multiple other family members who were all in agreement * 09/13/2024 continue palliative sedation, discussed care and prognosis with family at bedside (2) Stage IV squamous cell carcinoma of lung: Code(s): C34.90 - Malignant neoplasm of unspecified part of unspecified bronchus or lung Status: Inactive (3) Acute on chronic respiratory failure with hypoxia and hypercapnia: Code(s): J96.21 - Acute and chronic respiratory failure with hypoxia; J96.22 - Acute and chronic respiratory failure with hypercapnia Status: Inactive (4) Post-radiation pneumonitis: Code(s): J70.0 - Acute pulmonary manifestations due to radiation Status: Acute (5) Chronic obstructive pulmonary disease: Qualifiers: COPD type: unspecified COPD Qualified Code(s): J44.9 - Chronic obstructive pulmonary disease, unspecified Code(s): J44.9 - Chronic obstructive pulmonary disease, unspecified Status: Acute (6) Anemia: Code(s): D64.9 - Anemia, unspecified Status: Acute (7) History of embolism: Code(s): Z86.718 - Personal history of other venous thrombosis and embolism Status: Acute (8) Sepsis: Qualifiers: Sepsis acute organ dysfunction status: unspecified Sepsis type: sepsis due to unspecified organism Qualified Code(s): A41.9 - Sepsis, unspecified organism Code(s): A41.9 - Sepsis, unspecified organism Status: Resolved (9) Bacteremia: Code(s): R78.81 - Bacteremia Status: Acute Subjective Date/time seen: 09/13/24 10:59 Interval history: Remains comfortable with palliative sedation, though still somewhat responsive. Review of Systems Review of Systems: ROS unobtainable: Yes unobtainable due to medical condition Exam Narrative: HEENT: Pharyngeal mucosa dry. NECK: No JVD. CHEST: Tachypneic, coarse BS with diffuse rhonchi and scattered coarse and fine crackles. HEART: NL S1/S2, regular, no murmur. ABDOMEN: BS hypoactive, soft, nontender. EXTREMITIES: Trace pitting edema of ankles. NEUROLOGIC: CN intact and symmetric to inspection. MUSCULOSKELETAL: No gross deformity to visual inspection. PSYCH: Drowsy. Minimally responsive to verbal or tactile stimuli. Objective Data Vital Signs Vital Signs: Vital Signs - 24 hr 09/12/24 20:00 09/12/24 20:00 09/13/24 08:00 Temperature 98.0 F 98.4 F Pulse Rate 125 H 125 H 125 H Respiratory Rate 22 H 22 H 22 H Blood Pressure 138/68 139/80 Pulse Oximetry 85 L 85 L 88 L Oxygen Delivery Nasal Cannula Oxygen Flow Rate 3 Intake/Output Intake/Output: Intake & Output 09/10/24 09/11/24 09/12/24 09/13/24 23:59 23:59 23:59 23:59 Intake Total 360.6 549.2 190 Output Total 1250 1750 700 Balance -889.4 -1200.8 -510 Meds/Results Medications: Active Medications Generic Name Dose Route Start Last Admin Trade Name Freq PRN Reason Stop Dose Admin Artificial Tears 0 drop 09/10/24 13:10 Artificial Tears Ophth Soln 15 Ml Bottle EACH EYE Q12H PRN Dry Eye(s) Bisacodyl 10 mg 09/10/24 13:10 Bisacodyl 10 Mg Suppository RECTAL DAILY PRN Constipation Glycopyrrolate 0.1 mg 09/10/24 13:10 09/12/24 21:35 Glycopyrrolate Inj (*Sp) 0.2 Mg/Ml Vial IV PUSH 0.1 mg Q4H PRN Administration secretions Morphine Sulfate 50 mg/ Sodium 100 mls @ 24 mls/hr 09/10/24 13:10 09/13/24 08:10 Chloride IV CONT 12 mg/hr .Q4H10M JESSICA 24 mls/hr Administration 12 MG/HR Lorazepam 1 mg 09/11/24 11:15 09/12/24 03:48 Lorazepam Inj (*Crx) 2 Mg/Ml Vial IV PUSH 1 mg Q3H PRN Administration ANXIETY/RESTLESSNESS Lorazepam 2 mg 09/12/24 18:00 09/13/24 06:31 Lorazepam Inj (*Crx) 2 Mg/Ml Vial IV PUSH 2 mg Q6HR JESSICA Administration Morphine Sulfate 12 mg 09/12/24 07:20 Morphine Sulfate (*Crx) 4 Mg/Ml Inj IV PUSH Q2H PRN PAIN OR DYSPNEA Phenobarbital Sodium 60 mg 09/12/24 14:00 09/13/24 06:32 Phenobarbital Sodium (*Crx) 130 Mg/Ml Vial IV PUSH 60 mg Q8HR JESSICA Administration
--- NOTE | 2024-09-14 16:43 | PM.DDS ---
Discharge Summary Date and Time Date of : 09/13/24 Time of : 13:50 Provider Pronounced By: 2 RNs Name of First RN That Pronounced: Funmi Leong Name of Second RN That Pronounced: Roseanna Goodrich Probable Cause of Probable Cause of : Stage 4 non-small cell lung cancer with acute on chronic hypoxic respiratory failure due to pneumonia, bacteremia, and sepsis. Summary Hospital Course: Admitted to inpatient hospice service due to uncontrolled pain and dyspnea. He required palliative sedation for comfort. Mr. Garay peacefully. Additional Data Confirmation of as documented by pronouncing clinician: Pupillary Reflex, Palpable Pulses, Response to Stimuli, Heart Tones and Breath Sounds Name of Provider Notified: Dr. Orlin Doll Time Provider Notified: 14:00 [employer] Notified: Yes Date [facility] Notified of : 09/13/24 Time [facility] Notified of : 14:18
== END 2024-09-13 17:26 | disposition expired | DRG 951 ==
PROVIDERS: Admitting Provider Internal Medicine; PCP Physician Assistant; Visit Provider Internal Medicine
DX: Z51.5 Encounter for palliative care (principal); A41.9 Sepsis, unspecified organism; J96.21 Acute and chronic respiratory failure with hypoxia; J96.22 Acute and chronic respiratory failure with hypercapnia; J18.9 Pneumonia, unspecified organism; C34.90 Malignant neoplasm of unspecified part of unspecified bronchus or lung; J70.0 Acute pulmonary manifestations due to radiation; J44.0 Chronic obstructive pulmonary disease with (acute) lower respiratory infection; D64.9 Anemia, unspecified; Z86.718 Personal history of other venous thrombosis and embolism
CPT/HCPCS: A9270; J1596; J2060; J2270; J2560